=== PATIENT | male | born 1950 | race Caucasian/White ===

== ENCOUNTER 2018-11-27 17:30 | Outpatient (RCR) | payer MEDICARE, OTHER, SELFPAY | END 2018-11-29 23:59 | LOC: DC 17:30 | PROVIDERS: Visit Provider Nurse Practitioner Family | DX: E11.9 Type 2 diabetes mellitus without complications (principal); E66.01 Morbid (severe) obesity due to excess calories; Z68.41 Body mass index [BMI] 40.0-44.9, adult; Z71.3 Dietary counseling and surveillance | CPT/HCPCS: 97802; G0108 ==

== ENCOUNTER 2018-12-15 17:08 | Outpatient (RCR) | payer MEDICARE, OTHER, SELFPAY | END 2018-12-29 23:59 | LOC: DC 17:08 | PROVIDERS: Visit Provider Nurse Practitioner Family | DX: E11.9 Type 2 diabetes mellitus without complications (principal); E66.01 Morbid (severe) obesity due to excess calories; Z68.41 Body mass index [BMI] 40.0-44.9, adult; Z71.3 Dietary counseling and surveillance | CPT/HCPCS: 97803 ==

== ENCOUNTER 2019-02-23 17:30 | Outpatient (RCR) | payer MEDICARE, OTHER, SELFPAY | END 2019-02-28 23:59 | LOC: DC 17:30 | PROVIDERS: Visit Provider Nurse Practitioner Family | DX: Z71.3 Dietary counseling and surveillance (principal); E11.9 Type 2 diabetes mellitus without complications; E66.01 Morbid (severe) obesity due to excess calories; Z68.41 Body mass index [BMI] 40.0-44.9, adult | CPT/HCPCS: 97803; G0108 ==

== ENCOUNTER 2019-04-09 12:53 | Outpatient (RCR) | payer MEDICARE, OTHER, SELFPAY | END 2019-05-01 23:59 | LOC: DC 12:53 | PROVIDERS: Visit Provider Nurse Practitioner Family | DX: Z71.3 Dietary counseling and surveillance (principal); E11.9 Type 2 diabetes mellitus without complications; E66.01 Morbid (severe) obesity due to excess calories; Z68.41 Body mass index [BMI] 40.0-44.9, adult | CPT/HCPCS: G0109 ==

== ENCOUNTER 2019-05-07 08:04 | Outpatient (RCR) | payer MEDICARE, OTHER, SELFPAY | END 2019-05-30 23:59 | LOC: DC 08:04 | PROVIDERS: Visit Provider Nurse Practitioner Family | DX: Z71.3 Dietary counseling and surveillance (principal); E11.9 Type 2 diabetes mellitus without complications; E66.01 Morbid (severe) obesity due to excess calories; Z68.41 Body mass index [BMI] 40.0-44.9, adult | CPT/HCPCS: G0109 ==

== ENCOUNTER 2019-10-08 17:33 | Outpatient (RCR) | payer MEDICARE, OTHER, SELFPAY | END 2019-10-30 23:59 | LOC: DC 17:33 | PROVIDERS: PCP Nurse Practitioner Family; Referring Provider Nurse Practitioner Family; Visit Provider Nurse Practitioner Family | DX: Z71.3 Dietary counseling and surveillance (principal); E11.9 Type 2 diabetes mellitus without complications; E66.01 Morbid (severe) obesity due to excess calories; Z68.41 Body mass index [BMI] 40.0-44.9, adult | CPT/HCPCS: G0108 ==

== ENCOUNTER 2019-11-05 09:52 | Outpatient (RCR) | payer MEDICARE, OTHER, SELFPAY | END 2019-11-05 23:59 | disposition home or self-care (01) | LOC: DC 09:52 | PROVIDERS: PCP Nurse Practitioner Family; Referring Provider Nurse Practitioner Family; Visit Provider Nurse Practitioner Family | DX: Z71.3 Dietary counseling and surveillance (principal); E11.9 Type 2 diabetes mellitus without complications; E66.01 Morbid (severe) obesity due to excess calories; Z68.41 Body mass index [BMI] 40.0-44.9, adult | CPT/HCPCS: G0109 ==

== ENCOUNTER 2022-10-13 11:26 | Emergency (ER) | payer MEDICARE, OTHER, SELFPAY ==
[2022-10-13 11:27] VITALS: BP 169/72; PULSE 70; RESP 20; TEMP 35.4; O2SAT 95; BMI 38.3
--- NOTE | 2022-10-13 11:33 | EX.ED.GENINJ ---
HPI <LEXY Silva - Last Filed: 10/13/22 13:00> History of Present Illness Chief Complaint: Laceration Narrative Narrative: Patient tripped on the curb and caught himself with both hands causing a laceration to his right palm. No head injury or LOC. He denies weakness numbness or tingling in the extremity. Last tetanus unknown. PFSH <LEXY Silva - Last Filed: 10/13/22 13:00> [facility] Medical History (Updated 10/13/22 @ 11:35 by LEXY Silva) Diabetes HTN (hypertension) Home Medications dapagliflozin propanediol 10 mg tablet (Farxiga) 10 mg PO 10/31/21 [History Last Taken Unknown] insulin lispro protamine-lispro 100 unit/mL (50-50) subcutaneous pen (Humalog Mix 50-50 KwikPen) 3 unit subcut 10/31/21 [History Last Taken Unknown] lisinopril 20 mg tablet 20 mg PO DAILY 10/31/21 [History Last Taken Unknown] metformin 500 mg tablet,extended release 24 hr 500 mg PO 10/31/21 [History Last Taken Unknown] Allergy/AdvReac Type Severity Reaction Status Date / Time No Known Allergies Allergy Unverified 10/31/21 13:32 Social History (Updated 10/31/21 @ 13:35 by Camelia Solano) Smoking Status: Former smoker alcohol intake: current alcohol intake frequency: a few times a month Alcohol type: beer and wine ROS <LEXY Silva - Last Filed: 10/13/22 13:00> ROS ED ROS Narrative Neuro: Negative for motor/sensory dysfunction. Skin: Positive for laceration. Musc: Positive for right hand pain, swelling, trauma. Heme: Negative for easy bruising, bleeding, lymphadenopathy. EXAM <LEXY Silva - Last Filed: 10/13/22 13:00> Physical Exam Narrative Exam Narrative: CONST: Patient sitting in no acute distress. EYES: Normal inspection. NECK: Normal inspection. RESP: No respiratory distress, CTAB. CVS: Regular rate and rhythm, no murmur, no gallop. SKIN: T-shaped laceration (6 x 4 cm) on right palm extending in between his middle and ring finger webspace. No bleeding or foreign body. EXTREMITIES: Swelling, bruising and tenderness over right dorsal third MCP. Otherwise no tenderness of the extremity, full ROM, normal motor and sensory function median radial and ulnar distributions. 2+ radial pulse and brisk cap refill. NEURO: Oriented x4. PSYCH: Normal affect. Const Vital Signs: 10/13/22 11:27 10/13/22 13:04 Temperature 95.8 F L Temperature Source Temporal Pulse Rate 70 Respiratory Rate 20 H 17 Blood Pressure 169/72 H Blood Pressure Mean 104 Pulse Ox 95 Oxygen Delivery Method Room Air <Gorge Goins MD - Last Filed: 10/13/22 15:10> Physical Exam Const Vital Signs: 10/13/22 11:27 10/13/22 13:04 Temperature 95.8 F L Temperature Source Temporal Pulse Rate 70 Respiratory Rate 20 H 17 Blood Pressure 169/72 H Blood Pressure Mean 104 Pulse Ox 95 Oxygen Delivery Method Room Air PROC <LEXY Silva - Last Filed: 10/13/22 13:00> Procedures Lacerations right palm: Length: 5.91 in Depth: Sub Q Shape: T shaped, 6 cm top of T, 4 cm in between digits Prep: Sterile Conditions and Shure-Clens Laceration repair: Irrigated, Local, Skin sutures and Wound explored Irrigated (ml): 200 Number of Sutures/Mariana: 15 Suture Information: Ethilon, Simple and 5-0 MDM <LEXY Silva - Last Filed: 10/13/22 13:00> [facility] MDM Narrative Medical decision making narrative: Patient had mechanical fall and has a right palm laceration and contusion of the hand. No other injuries. He is able to fully move the hand and is neurovascularly intact. X-ray shows no acute fracture or dislocation. I performed wound repair with a total of 15 sutures. See procedure note. Tetanus was updated and patient given wound care instructions and discharged in stable condition Radiography Diagnostic Testing: Clinical Impression(s) from Imaging Studies Hand X-Ray 10/13/22 11:52 IMPRESSION: No acute fracture or dislocation. Electronically Signed: Neri Quiroz MD at 12:16 EDT , ED attending interpretation of right hand shows no acute fracture or dislocation <Gorge Goins MD - Last Filed: 10/13/22 15:10> [facility] MDM Narrative Medical decision making narrative: Patient had mechanical fall and has a right palm laceration and contusion of the hand. No other injuries. He is able to fully move the hand and is neurovascularly intact. X-ray shows no acute fracture or dislocation. I performed wound repair with a total of 15 sutures. See procedure note. Tetanus was updated and patient given wound care instructions and discharged in stable condition I have personally performed a face to face assessment of the patient and have reviewed the LENA Note. I performed a substantive portion of the visit including all aspects of the following. My forrest findings include: History is fall at [facility] onto right hand, positive laceration volar aspect right palm. Exam is afebrile. Vital signs noted. GCS 15. ABCs intact. Irregular laceration palm of right hand, no active bleeding. Appears neurovascular intact distally. Medical Decision Making: Check right hand x-ray. My independent interpretation of his right hand x-ray shows no evidence of an acute fracture. I reviewed the radiology report which confirms my independent interpretation. Laceration repair. Discharge. Other additions or changes: [None] Radiography Diagnostic Testing: Clinical Impression(s) from Imaging Studies Hand X-Ray 10/13/22 11:52 IMPRESSION: No acute fracture or dislocation. Electronically Signed: Neri Quiroz MD at 12:16 EDT Reading Location ID and State: [address] [place] [address] Tel , Service support , Discharge Plan Triage Chief Complaint: Laceration ED Midlevel Provider: Ramona Forde ED Provider: Gorge Goins Dx/Rx/DC Orders Clinical Impression: Laceration of right hand Instructions: ED Laceration Extremity Prescriptions: No Action Farxiga 10 mg tablet 10 mg PO Humalog Mix 50-50 KwikPen 100 unit/mL (50-50) insulin pen 3 unit subcut metformin 500 mg tablet extended release 24 hr 500 mg PO lisinopril 20 mg tablet 20 mg PO DAILY Primary Care Provider: Neri Hernandez CRITICAL CARE RN Referrals: Neri Hernandez CRITICAL CARE RN, CRITICAL CARE RN-C [Primary Care Provider] - Activity Restrictions/Additional Instructions: Stitches need removed in 10 to 14 days. Keep clean and dry. You can shower and then gently pat the area dry. If any signs of infection develop come back immediately including redness, swelling, increased pain or pus. Disposition Disposition: Home, Self Care Discharge Date/Time: 10/13/22 13:05
[2022-10-13] MEDS: Diphth,Pertuss(Acell),Tet Vac 0.5 ML Vial IM (11:46)
[2022-10-13] MEDS: Lidocaine 1% (20 ml mdv) 20 ML Vial INFILT (11:46)
--- NOTE | 2022-10-13 11:52 | RAD_ITS ---
STUDY: X-RAY - RIGHT HAND REASON FOR EXAM: Male, 72 years old. pain TECHNIQUE: 3 view(s) of the hand. COMPARISON: None. FINDINGS: Normal radiocarpal articulation. Normal distal radioulnar joint. Normal visualized carpal bones. Normal carpal articulations Normal carpometacarpal articulation of the thumb. Normal second through fifth carpometacarpal joints. Suspect healed fracture of the second metacarpal bone. Normal metacarpophalangeal joint of the thumb. Normal interphalangeal joint of the thumb. Normal proximal and distal phalanges of the thumb. Normal metacarpophalangeal joints of the second through fifth fingers. Normal proximal and distal interphalangeal joints of the second through fifth fingers. Normal phalanges of the second through fifth fingers. The soft tissue structures are unremarkable. RAD/Hand Min 3 Views IMPRESSION: No acute fracture or dislocation. Electronically Signed: Neri Quiroz MD at 12:16 EDT ,
[2022-10-13 13:04] VITALS: RESP 17
== END 2022-10-13 13:05 | disposition home or self-care (01) ==
PROVIDERS: Emergency Provider Emergency Medicine; PCP Nurse Practitioner Family; Visit Provider Emergency Medicine
DX: S61.411A Laceration without foreign body of right hand, initial encounter (principal); E11.9 Type 2 diabetes mellitus without complications; Z79.4 Long term (current) use of insulin; I10 Essential (primary) hypertension; Z87.891 Personal history of nicotine dependence; Z79.899 Other long term (current) drug therapy; Z79.84 Long term (current) use of oral hypoglycemic drugs; Z23 Encounter for immunization; W01.198A Fall on same level from slipping, tripping and stumbling with subsequent striking against other object, initial encounter
CPT/HCPCS: 12002; 73130; 90715; 99285

== ENCOUNTER 2022-10-16 19:43 | Emergency (ER) | payer MEDICARE, OTHER, SELFPAY ==
[2022-10-16 19:44] VITALS: BP 199/77; PULSE 64; RESP 18; TEMP 35.9; O2SAT 94; BMI 38.5
--- NOTE | 2022-10-16 20:11 | EX.ED.GENINJ ---
HPI History of Present Illness Chief Complaint: Laceration Detail of Chief Complaint: Hand swelling Informant: patient Narrative Narrative: Patient was seen and evaluated on the after a fall and laceration to the palm of his right hand. It was sutured. He presents tonight noting increased swelling to his hand, particularly over the back of his hand. He does not have significant pain. No fever. There is been no drainage from the wound. [facility] Medical History Diabetes HTN (hypertension) Home Medications dapagliflozin propanediol 10 mg tablet (Farxiga) 10 mg PO 10/31/21 [History Last Taken Unknown] insulin lispro protamine-lispro 100 unit/mL (50-50) subcutaneous pen (Humalog Mix 50-50 KwikPen) 3 unit subcut 10/31/21 [History Last Taken Unknown] lisinopril 20 mg tablet 20 mg PO DAILY 10/31/21 [History Last Taken Unknown] metformin 500 mg tablet,extended release 24 hr 500 mg PO 10/31/21 [History Last Taken Unknown] Allergy/AdvReac Type Severity Reaction Status Date / Time No Known Allergies Allergy Verified 10/16/22 19:44 Social History Smoking Status: Former smoker alcohol intake: current alcohol intake frequency: a few times a month Alcohol type: beer and wine ROS ROS ED Constitutional Constitutional ED: Denies chills or fever(s) Eyes Eyes: Denies change in vision ENT ENT ED: Denies rhinorrhea or sore throat Cardiovascular Cardiovascular: Denies chest pain or palpitations Respiratory/Chest Respiratory/Chest: Denies cough or dyspnea Gastrointestinal Gastrointestinal: Denies abdominal pain, nausea or vomiting Genitourinary Genitourinary ED: Denies dysuria Musculoskeletal Musculoskeletal: Denies back pain Integumentary Reports other Details: Right hand wound ; Denies Abrasions or rash Neurologic Neurologic: Denies headache(s), paresthesias or weakness Psychiatric Psychiatric: Denies anxiety or depression Allergic/Immunologic Allergic/Immunologic ED: Denies lip swelling or urticaria EXAM Physical Exam Const Vital Signs: 10/16/22 19:44 Temperature 96.7 F L Temperature Source Temporal Pulse Rate 64 Respiratory Rate 18 Blood Pressure 199/77 H Blood Pressure Mean 117 Pulse Ox 94 Positive well nourished and well developed General Appearance ED: well developed Eyes EOMs intact bilaterally Chest Wall inspection of chest normal and palpation of chest normal Resp normal respiratory effort Cardio regular rhythm Rate: regular rate Extremity Extremity Narrative: Healing laceration to the palm of the right hand. No evidence of infection. Good range of motion of all digits. Good cap refill and sensation distally. Mild edema is noted over the back of the right hand. It is noted that the dressing the patient had in place was rather tight around the wrist. Neuro oriented x3 MDM MDM MDM Narrative Medical decision making narrative: Dressing was removed from the right hand. It was rather tight around the wrist. I believe this in combination with not having his hand elevated above the level of his heart has led to the increased swelling. I see no evidence of wound infection. Wound is cleansed and redressed. Wound care was discussed. Discharge Plan Triage Chief Complaint: Laceration ED Provider: Emilee Morales Dx/Rx/DC Orders Clinical Impression: Visit for wound check Instructions: ED Wound Check (No Infection), ED Wound Care Prescriptions: No Action Farxiga 10 mg tablet 10 mg PO Humalog Mix 50-50 KwikPen 100 unit/mL (50-50) insulin pen 3 unit subcut metformin 500 mg tablet extended release 24 hr 500 mg PO lisinopril 20 mg tablet 20 mg PO DAILY Primary Care Provider: Neri Henrandez NP Referrals: Neri Hernandez NP, [employer]-[facility] [Primary Care Provider] - 3-5 Days suture removal Disposition Disposition: Home, Self Care
== END 2022-10-16 20:27 | disposition home or self-care (01) ==
LOC: ED 20:19
PROVIDERS: Emergency Provider Emergency Medicine; PCP Nurse Practitioner Family; Visit Provider Emergency Medicine
DX: Z51.89 Encounter for other specified aftercare (principal); E11.9 Type 2 diabetes mellitus without complications; Z79.4 Long term (current) use of insulin; I10 Essential (primary) hypertension; Z87.891 Personal history of nicotine dependence; M79.89 Other specified soft tissue disorders; Z79.899 Other long term (current) drug therapy; Z79.84 Long term (current) use of oral hypoglycemic drugs
CPT/HCPCS: 99282

== ENCOUNTER 2024-04-18 23:27 | Emergency (ER) | payer MEDICARE, OTHER, SELFPAY ==
[2024-04-18 23:28] VITALS: BP 130/67; PULSE 88; RESP 18; TEMP 37; O2SAT 94; BMI 34.0
--- NOTE | 2024-04-18 23:47 | EX.ED.DYSGE1 ---
HPI History of Present Illness Chief Complaint: Wound Check Informant: patient and EMS Narrative Narrative: Patient is a 74-year-old male with past medical history of insulin-dependent diabetes and hypertension and chronic indwelling tracheostomy. He states that he has had some sinus congestion and drainage for the past 2 weeks and recently has been on antibiotics. He reports that he has had increased drainage because of that which seems to obstruct/plug his tracheostomy. He states this evening he was coughing and in doing so dislodge the trach and therefore was sent to the hospital for evaluation. [facility] Medical History Diabetes HTN (hypertension) Home Medications ?Medication ?Instructions ?Recorded ?Last Taken ?Type dapagliflozin propanediol 10 mg 10 mg PO 10/31/21 Unknown History tablet (Farxiga) insulin lispro protamine-lispro 3 unit subcut 10/31/21 Unknown History 100 unit/mL (50-50) subcutaneous pen (Humalog Mix 50-50 KwikPen) lisinopril 20 mg tablet 20 mg PO DAILY 10/31/21 Unknown History metformin 500 mg tablet,extended 500 mg PO 10/31/21 Unknown History release 24 hr Allergy/AdvReac Type Severity Reaction Status Date / Time No Known Allergies Allergy Verified 10/16/22 19:44 Social History Smoking Status: Former smoker alcohol intake: current alcohol intake frequency: a few times a month Alcohol type: beer and wine ROS ROS ED Constitutional Constitutional ED: Denies chills or fever(s) Eyes Eyes: Denies change in vision ENT ENT ED: Reports rhinorrhea Cardiovascular Cardiovascular: Denies chest pain Respiratory/Chest Respiratory/Chest: Reports cough; Denies dyspnea Gastrointestinal Gastrointestinal: Denies abdominal pain, diarrhea, nausea or vomiting Musculoskeletal Musculoskeletal: Denies neck pain Integumentary Denies rash Neurologic Neurologic: Denies headache(s) Hematologic/Lymphatic Hematologic/Lymphatic: Denies easy bleeding or easy bruising EXAM Physical Exam Const Vital Signs: 04/18/24 23:28 04/19/24 01:20 Temperature 98.6 F 98.1 F Temperature Source Oral Pulse Rate 88 78 Respiratory Rate 18 16 Blood Pressure 130/67 H 128/30 H Blood Pressure Mean 88 62 Pulse Ox 94 98 Oxygen Delivery Method Trach Collar Oxygen Flow Rate (L/min) 2 Positive well nourished, well developed and obese General Appearance ED: well developed Nutritional Appearance: obese HEENT HEENT Narrative: Normocephalic atraumatic No pain on palpation over top the maxillary frontal or ethmoid sinuses Eyes PERRL and EOMs intact bilaterally General Eye ED: Negative for scleral icterus Neck supple Neck Narrative: Tracheostomy site is clean dry and intact. No surrounding secondary soft tissue changes to suggest infection. No crepitance or subcutaneous emphysema noted. Chest Wall palpation of chest normal Resp normal respiratory effort and clear to auscultation bilaterally Resp Narrative: No nasal flaring retractions tachypnea or accessory muscle use Cardio regular rate and regular rhythm GI normal to inspection, nondistended, normoactive bowel sounds, non-tender, non-distended and no masses Auscultation: normoactive bowel sounds Palpation: soft Extremity normal to inspection Neuro oriented x3 and CN's II-XII intact bilaterally Sensorium / Orientation: alert Psych mental status grossly normal Skin no rashes or lesions noted MDM MDM MDM Narrative Medical decision making narrative: Patient arrived to the ER with stable vitals and despite dislodging his tracheostomy with coughing was not in respiratory distress. Upon arrival the tip of the tracheostomy was still present at the stoma site and therefore it was reinserted with manual pressure. Upon doing so there was clear mucus/excretions noted and therefore the trach was suctioned. After doing this the patient's breath sounds are overall clear he is not in respiratory distress and vitals are stable. He did report previous congestion over the last 2 weeks but is already done a round of antibiotics does not have pain with palpation over top his sinuses and the mucus is clear and not discolored and thereby have low concern for infectious process. Therefore as the tracheostomy has been replaced he is not in respiratory distress and vitals are stable I do not feel there is need for further workup and he is otherwise safe to return to the snf History & Record Review Discussion w/independent historian: EMS personnel and Patient Discharge Plan Triage Chief Complaint: Wound Check ED Provider: Jacob Rios Dx/Rx/DC Orders Clinical Impression: Malfunction of tracheostomy, HTN (hypertension), Insulin dependent diabetes mellitus Instructions: ED Tracheostomy Care, ED Mucous Plug, Trach Tube Prescriptions: No Action Farxiga 10 mg tablet 10 mg PO Humalog Mix 50-50 KwikPen 100 unit/mL (50-50) insulin pen 3 unit subcut metformin 500 mg tablet extended release 24 hr 500 mg PO lisinopril 20 mg tablet 20 mg PO DAILY Primary Care Provider: Bhavik Jameson Referrals: Neri Hernandez [employer], [employer] [Non-Staff] - Print Language: Welsh Disposition Disposition: Home, Self Care Discharge Date/Time: 04/19/24 01:21
--- NOTE | 2024-04-19 01:18 | NURSING ---
Report called to [facility] Aware pt will be returning shortly.
[2024-04-19 01:20] VITALS: BP 128/30; PULSE 78; RESP 16; TEMP 36.7; O2SAT 98
== END 2024-04-19 01:21 | disposition home or self-care (01) ==
PROVIDERS: Emergency Provider Emergency Medicine; PCP Family Medicine; Visit Provider Emergency Medicine
DX: J95.03 Malfunction of tracheostomy stoma (principal); E11.9 Type 2 diabetes mellitus without complications; Z79.4 Long term (current) use of insulin; I10 Essential (primary) hypertension; Z87.891 Personal history of nicotine dependence; Z79.899 Other long term (current) drug therapy; Z79.84 Long term (current) use of oral hypoglycemic drugs
CPT/HCPCS: 31720; 99284

== ENCOUNTER 2024-07-20 08:30 | Outpatient (RCR) | payer MEDICARE, OTHER, SELFPAY ==
[2024-07-08 08:34] VITALS: BP 152/79; PULSE 96; RESP 18; TEMP 36.5
--- NOTE | 2024-07-08 10:45 | PCM.WC.HP ---
History of Present Illness Date of Service: 07/08/24 Chief Complaint: Follow-up on his abdominal wound nonhealing since December History of Wound: 74-year-old white male who went in for an umbilical hernia repair and his duodenum got perforated ended up with a tracheotomy and placed in a coma and woke up in March. Patient has had a wound VAC and several other dressing changes currently he is just on an antibiotic cephalexin and covering it with gauze. 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 Patient is a diabetic and is currently on both insulin and Farxiga. [facility] Medical History Vitamin D deficiency GERD (gastroesophageal reflux disease) Dysphagia, pharyngeal phase Perforation of intestine HLD (hyperlipidemia) Anxiety Depression Infection following a procedure, other surgical site, subsequent encounter Acute and chronic respiratory failure with hypoxia Diabetes HTN (hypertension) Home Medications ?Medication ?Instructions ?Recorded ?Last Taken ?Type dapagliflozin propanediol 10 mg 10 mg PO DAILY 10/31/21 Unknown History tablet (Farxiga) amlodipine 5 mg tablet 5 mg PO QDAY 06/18/24 Unknown History atorvastatin 20 mg tablet 20 mg PO QDAY 06/18/24 Unknown History escitalopram oxalate 10 mg tablet 10 mg PO QDAY 06/18/24 Unknown History insulin glargine 100 unit/mL 10 unit subcut QAM 06/18/24 Unknown History subcutaneous solution (Lantus U-100 Insulin) levothyroxine 50 mcg capsule 50 mcg PO QDAY 06/18/24 Unknown History losartan 100 mg tablet 100 mg PO QDAY 06/18/24 Unknown History metformin 500 mg tablet,extended 1,000 mg PO BID 06/18/24 Unknown History release 24 hr metoprolol tartrate 25 mg tablet 25 mg PO QDAY 06/18/24 Unknown History cephalexin 250 mg capsule 250 mg PO 4X/DAY 07/08/24 Unknown History Allergy/AdvReac Type Severity Reaction Status Date / Time No Known Allergies Allergy Verified 10/16/22 19:44 Surgical History Gastrostomy status Tracheostomy status Social History Smoking Status: Never smoker alcohol intake: current alcohol intake frequency: a few times a month Alcohol type: beer and wine ROS Constitutional Constitutional: Reports systems reviewed and no addt'l complaints, except as documented Eyes Eyes: Reports systems reviewed and no addt'l complaints, except as documented ENT HEENT: Reports systems reviewed and no addt'l complaints, except as documented Cardiovascular Cardiovascular: Reports systems reviewed and no addt'l complaints, except as documented Respiratory/Chest Respiratory/Chest: Reports systems reviewed and no addt'l complaints, except as documented Gastrointestinal Gastrointestinal: Reports systems reviewed and no addt'l complaints, except as documented Genitourinary Genitourinary: Reports systems reviewed and no addt'l complaints, except as documented Musculoskeletal Musculoskeletal: Reports systems reviewed and no addt'l complaints, except as documented Integumentary Integumentary: Reports wounds and other Details: Open area of skin nonhealing boggy and softness and nontender over most of the abdomen Neurologic Neurologic: Reports systems reviewed and no addt'l complaints, except as documented Psychiatric Psychiatric: Reports systems reviewed and no addt'l complaints, except as documented Endocrine Endocrinology: Reports systems reviewed and no addt'l complaints, except as documented Hematologic/Lymphatic Hematologic/Lymphatic: Reports systems reviewed and no addt'l complaints, except as documented Allergic/Immunologic Allergic/Immunologic: Reports systems reviewed and no addt'l complaints, except as documented Vital Signs Vital Signs Vital Signs: 07/08/24 08:34 Temperature 97.7 F L Temperature Source Temporal Pulse Rate 96 Respiratory Rate 18 Blood Pressure 152/79 H Blood Pressure Mean 103 Blood Pressure Source Monitor Blood Pressure Position Semi-Fowlers Blood Pressure Location Left Arm Physical Exam Const oriented x3 General Appearance: cooperative Exam Limitations: no limitations HEENT normocephalic Head and Scalp: normal to inspection Face and Sinus: normal facial exam Eyes General Eye: normal appearance of both eyes Neck General: normal visual inspection Resp normal respiratory effort Effort and Inspection: able to speak in complete sentences Auscultation: clear to auscultation bilaterally Cardio regular rate and regular rhythm Palpation: normal PMI Rate: regular rate Rhythm: regular rhythm GI Palpation: soft and no hepatosplenomegaly Skin no rashes or lesions noted Skin Narrative: Open wound rather large across the abdomen absence of umbilicus with crusted edges well-approximated skin. No depth hypergranulation of skin. Neuro oriented x3 Psych Appearance: grossly normal Speech: normal speech Thought Content: normal thought content Judgement: judgement good Debridement Note Debridement Note Wound debrided: Nonhealing surgical wound Type of Debridement: Excisional debridement Anesthesia Used: 5% Lidocaine Gel Depth: Down to and including healthy tissue Percentage of wound debrided: 100 Instrument Used: 7mm curette Tissue Removed: Fibrin and some slough Severity: Limited To Skin Breakdown Amount of bleeding with debridement: Mild Bleeding Controlled with: Compression and gauze Patient tolerated procedure: Patient tolerated procedure well Debridement Free Text: Using silver nitrate to use on the hyper granulated tissue. Post-Debridement Measurements and Additional Note: Post-Debridement Measurements/Treatment - Nurse 1 - General Ulcer Assessment Start: 07/08/24 08:30 Freq: Status: Active Protocol: OBDULIA Activity Type Activity Date Activity User E-sign Co-sign Detail Recorded Client Recorded Date Recorded By Document 07/08/24 08:34 [id number] 07/08/24 08:44 LOWELL 07/08/24 08:34 - Today's Visit Information Type of service Initial Visit Arrival Mode Ambulatory Transfer Assistance None Patient Identification Verified (Name & Yes ) Patient Requires Transmission-Based No Precautions Vital Signs Temperature (97.8 F-99.1 F) 97.7 F L Temperature Source Temporal Pulse Rate (60-100) 96 Pulse Location Monitor Respiratory Rate (12-18) 18 Respiratory rate source Observation Blood Pressure (90/60-120/80) 152/79 H Blood Pressure Mean 103 Source Monitor Position Semi-Fowlers Blood Pressure Location Left Arm Pain Scale: 0-10 Numeric Is Patient Pain Free? Yes Communication Assessment Preferred language Panamanian Business Mail Entry Clerk Required No Able to Read Yes Able to Write Yes Communication Tools None Caregiver Communication Skills No Impairment Impairment Right Hearing Abillity Normal Left Hearing Abillity Normal Visual Assistive Devices Glasses Teaching Assessment Preferences Verbal,Written, Demonstration Barriers to Learning None Readiness To Learn Good Willingness to Engage in Self Management Med Activies Readiness to Engage in Self Management Med Activities Anxiety Level Anxious Cooperation Cooperative Perception Coherent Interest in Health Problem Asks Questions Education Importance Acknowledges Need Does Patient Smoke tobacco or other No substances Smoking Status Never smoker Functional Assessment Recent Decline in Ability to Perform Denies Any Declines Culture/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 Hydrant Setter to contact place of gnosticist No Teaching: Wound Center *Welcome to the Wound Center -Person Taught Patient -Teaching Method Discussion, Demonstration -Response to teaching Verbalize Understanding - Nurse 1 - General Ulcer Measurement Start: 07/08/24 08:30 Freq: Status: Active Protocol: Activity Type Activity Date Activity User E-sign Co-sign Detail Recorded Client Recorded Date Recorded By Document 07/08/24 08:34 [id number] 07/08/24 08:44 RB 07/08/24 08:34 Wound Center Nurse 1 1. ABD -Combined with other wound No -Current Size (cm) - Length 15 -Current Size (cm) - Width 20.1 -Current Size (cm) - Depth 0.1 -Total Square Cm 301.5 -Photo Taken Yes -Tunneling No -Undermining/Tunneling No -Circular Undermining No -Exudate Amt Medium -Exudate Type Serosanguineous -Wound Margin Distinct, Outline Attached -Granulation Amt Medium (34-66%) -Granulation Quality [place] -Slough/Fibrin Yes -Necrosis Amt Medium (34-66%) -Necrotic Tissue Type Adherent Slough -Structure Exposed N/A -Texture (Lorenza-wound Skin Appearance) Assessed, Scarring -Moisture (Lorenza-wound Skin Appearance) Assessed -Color (Lorenza-wound Skin Appearance) Assessed -Temperature (Lorenza-wound Skin No Abnormality Appearance) (Pt Warm) -Tenderness on Palpation (Lorenza-wound No Skin Appearance) -Ulcer Cleansing Wound Cleanser -Foul Odor after Cleansing No -Anesthetic Used 4% Lidocaine Solution - Nurse 2 - General Ulcer CM Notes Start: 07/08/24 08:30 Freq: Status: Active Protocol: Activity Type Activity Date Activity User E-sign Co-sign Detail Recorded Client Recorded Date Recorded By Document 07/08/24 09:03 [facility] [id number] 07/08/24 09:17 [facility] 07/08/24 09:03 Wound Center Nurse 2 -Time 09:03 -Correct Patient Yes -Correct Side, Site, Position Yes -Correct Procedure Yes -Procedure Performed Yes -Type of Procedure Debridement -Clinical Debridement Subcutaneous -Tissue Removed Subcutaneous -Post Debridement (cm) - Length 14 -Post Debridement (cm) - Width 19.5 -Post Debridement (cm) - Depth 0.1 -Total Square (Post) (cm) 273.0 -Area of Debridement (cm) - Length 14 -Area of Debridement (cm) - Width 19.5 -Total Square (Area) (cm) 273.0 -Tunneling No -Undermining/Tunneling No -Circular Undermining No -Wound/Ulcer Outcome Not Healed -Ulcer Cleansing Rinsed/ Irrigated with Saline -Foul Odor after Cleansing No -Bioengineered Tissue No -Bleeding Controlled with Pressure,Silver Nitrate -Treatment Response Procedure Tolerated Well -Debridement - Subq, 1st 20sq cm Yes -Debridement, SubQ, ea addt'l 20sq cm 13 or part thereof Pain Scale: 0-10 Numeric Is Patient Pain Free? Yes - Nurse 3 - General Ulcer D/C NN Start: 07/08/24 08:30 Freq: Status: Active Protocol: Activity Type Activity Date Activity User E-sign Co-sign Detail Recorded Client Recorded Date Recorded By Document 07/08/24 09:31 [place] [id number] 07/08/24 09:33 [place] 07/08/24 09:31 Wound Care Center Nurse 3 1. ABD -Primary Dressing Applied NonAdherent Contact Layer -Other Dressing xeroform x 4 -Primary Dressing Covered/Secured with Dry Gauze, Secured with Tape Pain Scale: 0-10 Numeric Is Patient Pain Free? Yes - Visit Discharge Discharge Condition Stable Ambulatory Status Ambulatory Transportation Private Auto Medication Reconcilliation completed & No provided to patient/care provider Clinical Summary of Care Provided Yes Notes: pt and verbalized understanding of new wound dressing. Assessment/Plan Assessment/Plan (1) Nonhealing surgical wound: CODE(S): T81.89XA - Other complications of procedures, not elsewhere classified, initial encounter QUALIFIERS: Encounter type: initial encounter Qualified Code(s): T81.89XA - Other complications of procedures, not elsewhere classified, initial encounter PLAN: Wash abdominal wound with antibacterial soap and water pat dry and apply Xeroform to wound base and ABDs over top. Every day Follow-up in 2 week Will repeat for to Dr. Hurtado for plastics for evaluation for his abdominal wound. (2) Hypergranulation: CODE(S): L92.9 - Granulomatous disorder of the skin and subcutaneous tissue, unspecified (3) Diabetes mellitus with hyperglycemia: CODE(S): E11.65 - Type 2 diabetes mellitus with hyperglycemia QUALIFIERS: Diabetes mellitus type: type 2 Diabetes mellitus intermodal customer service insulin use: with intermodal customer service use Qualified Code(s): E11.65 - Type 2 diabetes mellitus with hyperglycemia; Z79.4 - termite inspector (current) use of insulin
[2024-07-08 12:05] LABS: Hematocrit 35.5 % (40-54); Hemoglobin 11.1 g/dL (13.0-16.5); Mean Corp Hgb Conc 31.3 g/dL (32-36); Mean Corpuscular Volume 83.1 fL (80-94); Mean Platelet Vol. 10.9 fl (6.2-12.0); Platelet Count 399 K/mm3 (150-450); RBC Distribution Width CV 15.9 % (11.6-14.6); RBC Distribution Width SD 47.8 fl (35.1-43.9); Red Blood Count 4.27 M/mm3 (4.6-6.2); White Blood Count 6.1 K/mm3 (4.4-11.0)
[2024-07-08 14:28] LABS: AST(SGOT) 24 U/L (<=37); Alanine Aminotransfer ALT/SGPT 38 U/L (<=46); Albumin, Serum 3.5 g/dL (3.4-4.8); Alkaline Phosphatase 67 U/L (40-129); Anion Gap 15 (5-15); BUN 19 mg/dL (4-19); BUN/Creat Ratio 20.5 RATIO (10-20); Calcium,Total 9.3 mg/dL (7.6-11.0); Carbon Dioxide 20.7 mmol/L (21.0-32.0); Chloride 104 mmol/L (98-108); Creatinine, Serum 0.94 mg/dL (0.70-1.20); EST Glomerular Filtration Rate 86 (>60); Globulin 3.7 g/dL (2.2-4.2); Glucose 241 mg/dL (70-99); Potassium 4.3 mmol/L (3.3-5.1); Protein, Total 7.1 g/dL (5.9-8.4); Sodium Level 139 mmol/L (133-145); Total Bilirubin 0.28 mg/dL (0.00-1.30)
[2024-07-08 15:49] LABS: Hemoglobin A1c 7.7 % (<=5.6)
[2024-07-09 05:07] LABS: Prealbumin 24 mg/dL (9-32)
--- NOTE | 2024-07-09 10:32 | WC ---
PHOTO 07/08/24 ABD
[2024-07-13 08:25] VITALS: BP 159/84; PULSE 99; RESP 18; TEMP 36.3
--- NOTE | 2024-07-13 09:32 | HP.PCM_ITS ---
History of Present Illness Date of Service: 07/13/24 Chief Complaint: Follow-up on his abdominal wound nonhealing since December History of Wound: Eben Bosch is a 74-year-old male who underwent an umbilical hernia repair at [facility] in December 2023 and unfortunately 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 Through patient report, it was not discovered at the initial time of the hernia repair surgery and he subsequently required 3 surgeries for exploration of his abdomen and to fix the enterotomy site. Patient never had an ostomy. He had a prolonged hospital stay including prolonged intubation necessitating a tracheostomy (he has been decannulated for 1 week) and prolonged ICU admission followed by discharge to a residential facility. 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 He has an adult daughter with 2 adult grandchildren. Patient has never had any bleeding or clotting problems (he is not on any blood thinner and has not had a blood clot). He is not a smoker. Patient is a diabetic with an A1c of 7.7 (earlier this month). His prealbumin is 24 and his albumin is 3.5. For wound care he has been doing dressing changes with Xeroform and has tried the wound VAC in the past. He has not had a CT scan recently and he has not had a biopsy of the wound. He has not been using an abdominal binder. [facility] Medical History Vitamin D deficiency GERD (gastroesophageal reflux disease) Dysphagia, pharyngeal phase Perforation of intestine HLD (hyperlipidemia) Anxiety Depression Infection following a procedure, other surgical site, subsequent encounter Acute and chronic respiratory failure with hypoxia Diabetes HTN (hypertension) Home Medications ?Medication ?Instructions ?Recorded ?Last Taken ?Type dapagliflozin propanediol 10 mg 10 mg PO DAILY 2 Unknown History tablet (Farxiga) amlodipine 5 mg tablet 5 mg PO QDAY 06/18/24 Unknow n History atorvastatin 20 mg tablet 20 mg PO QDAY 06/18/24 Unkno wn History escitalopram oxalate 10 mg tablet 10 mg PO QDAY Unknown History insulin glargine 100 unit/mL 10 unit subcut QAM Unknown History subcutaneous solution (Lantus U-100 Insulin) levothyroxine 50 mcg capsule 50 mcg PO QDAY 06/18/24 U nknown History losartan 100 mg tablet 100 mg PO QDAY 06/18/24 Unkn own History metformin 500 mg tablet,extended 1,000 mg PO BID 06/18 Unknown History release 24 hr metoprolol tartrate 25 mg tablet 25 mg PO QDAY 5 Unknown History cephalexin 250 mg capsule 250 mg PO 4X/DAY 07/08/24 Un known History Allergy/AdvReac Type Severity Reaction Status Date / Time No Known Allergies Allergy Verified 10/16/22 19:44 Surgical History Gastrostomy status Tracheostomy status Social History Smoking Status: Never smoker alcohol intake: current alcohol intake frequency: a few times a month Alcohol type: beer and wine Vital Signs Vital Signs Vital Signs: 07/13/24 08:25 Temperature 97.3 F L Temperature Source Temporal Pulse Rate 99 Respiratory Rate 18 Blood Pressure 159/84 H Blood Pressure Mean 109 Blood Pressure Source Monitor Physical Exam Narrative Abdomen: ~15 x 15 cm granulating central abdominal wound. No exposed mesh. No surrounding induration. There is loss of domain centrally with large diastases that is approximately ~15 cm wide and ~20 cm tall. Debridement Note Debridement Note No debridement was completed: No debridement was completed today Post-Debridement Measurements and Additional Note: Post-Debridement Measurements/Treatment - Nurse 1 - General Ulcer Assessment Start: 07/08/24 08:30 Freq: Status: Active Protocol: HENRI.RENITA Activity Type Activity Date Activity User E-sign Co-sign Detail Recorded Client Recorded Date Recorded By Document 07/08/24 08:34 RB [id number] 07/08/24 08:44 RB Document 07/13/24 08:25 DL [id number] 07/13/24 08:30 DL 07/08/24 07/13/24 08:34 08:25 - Today's Visit Information Type of service Initial Visit Follow-up Visit (Physician/HANDWRITING EXPERT ) Physician Covering Nurse Only Visit C/S [facility] Arrival Mode Ambulatory Ambulatory Transfer Assistance None None Patient Identification Verified (Name & Yes Yes ) Patient Requires Transmission-Based No No Precautions Vital Signs Temperature (97.8 F-99.1 F) 97.7 F L 97.3 F L Temperature Source Temporal Temporal Pulse Rate (60-100) 96 99 Pulse Location Monitor Monitor Respiratory Rate (12-18) 18 18 Respiratory rate source Observation Observation Blood Pressure (90/60-120/80) 152/79 H 159/84 H Blood Pressure Mean 103 109 Source Monitor Monitor Position Semi-Fowlers Blood Pressure Location Left Arm History Since Last Visit- (Skip if this is Patient's initial visit) Have you changed medications since your No last visit? Any new allergies or adverse reactions No Had a fall/change in ADL's that may No increase risk of falls Signs or symptoms of abuse and/or No neglect since last visit Have you been in the hospital since your No last visit? Has dressing in place as prescribed Yes Has compression in place as prescribed N/A Has offloadiing in place as prescribed N/A Experienced any changes in pain level or No management Left Footwear Regular Shoe Right Footwear Regular Shoe Pain Scale: 0-10 Numeric Is Patient Pain Free? Yes Yes Communication Assessment Preferred language Slovak Mailmaster Required No Able to Read Yes Able to Write Yes Communication Tools None Caregiver Communication Skills No Impairment Impairment Right Hearing Abillity Normal Left Hearing Abillity Normal Visual Assistive Devices Glasses Teaching Assessment Preferences Verbal,Written, Demonstration Barriers to Learning None Readiness To Learn Good Willingness to Engage in Self Management Med Activies Readiness to Engage in Self Management Med Activities Anxiety Level Anxious Cooperation Cooperative Perception Coherent Interest in Health Problem Asks Questions Education Importance Acknowledges Need Does Patient Smoke tobacco or other No substances Smoking Status Never smoker Functional Assessment Recent Decline in Ability to Perform Denies Any Declines Culture/Sikh/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 Filing Machine Operator to contact place of voodoo No Teaching: Wound Center *Welcome to the Wound Center -Person Taught Patient -Teaching Method Discussion, Demonstration -Response to teaching Verbalize Understanding WC - Nurse 1 - General Ulcer Measurement Start: 07/08/24 08:30 Freq: Status: Active Protocol: Activity Type Activity Date Activity User E-sign Co-sign Detail Recorded Client Recorded Date Recorded By Document 07/08/24 08:34 RB [id number] 07/08/24 08:44 RB Document 07/13/24 08:25 DL [id number] 07/13/24 08:30 DL 07/08/24 07/13/24 08:34 08:25 Wound Center Nurse 1 1. ABD -Combined with other wound No No -Current Size (cm) - Length 15 13.1 -Current Size (cm) - Width 20.1 17 -Current Size (cm) - Depth 0.1 0.1 -Total Square Cm 301.5 222.7 -Photo Taken Yes Yes -Epithelialization None Present -Tunneling No No -Undermining/Tunneling No No -Circular Undermining No No -Exudate Amt Medium Large -Exudate Type Serosanguineous Serosanguineous -Wound Margin Distinct, Flat & Intact Outline Attached -Granulation Amt Medium (34-66%) Large (67-100%) -Granulation Quality [place] Hyper- granulation -Slough/Fibrin Yes Yes -Necrosis Amt Medium (34-66%) Small (1-33%) -Necrotic Tissue Type Adherent Slough Adherent Slough -Structure Exposed N/A N/A -Texture (Lorenza-wound Skin Appearance) Assessed, Assessed Scarring -Moisture (Lorenza-wound Skin Appearance) Assessed Assessed,Dry/ Scaly -Color (Lorenza-wound Skin Appearance) Assessed Assessed -Temperature (Lorenza-wound Skin No Abnormality No Abnormality Appearance) (Pt Warm) (Pt Warm) -Tenderness on Palpation (Lorenza-wound No No Skin Appearance) -Ulcer Cleansing Wound Cleanser Soap and Water -Foul Odor after Cleansing No -Anesthetic Used 4% Lidocaine 4% Lidocaine Solution Solution Lower Limb Edema Present NA WC - Nurse 2 - General Ulcer CM Notes Start: 07/08/24 08:30 Freq: Status: Active Protocol: Activity Type Activity Date Activity User E-sign Co-sign Detail Recorded Client Recorded Date Recorded By Document 07/08/24 09:03 [facility] [id number] 07/08/24 09:17 [facility] 07/08/24 09:03 Wound Center Nurse 2 1. ABD -Time 09:03 -Correct Patient Yes -Correct Side, Site, Position Yes -Correct Procedure Yes -Procedure Performed Yes -Type of Procedure Debridement -Clinical Debridement Subcutaneous -Tissue Removed Subcutaneous -Post Debridement (cm) - Length 14 -Post Debridement (cm) - Width 19.5 -Post Debridement (cm) - Depth 0.1 -Total Square (Post) (cm) 273.0 -Area of Debridement (cm) - Length 14 -Area of Debridement (cm) - Width 19.5 -Total Square (Area) (cm) 273.0 -Tunneling No -Undermining/Tunneling No -Circular Undermining No -Wound/Ulcer Outcome Not Healed -Ulcer Cleansing Rinsed/ Irrigated with Saline -Foul Odor after Cleansing No -Bioengineered Tissue No -Bleeding Controlled with Pressure,Silver Nitrate -Treatment Response Procedure Tolerated Well -Debridement - Subq, 1st 20sq cm Yes -Debridement, SubQ, ea addt'l 20sq cm 13 or part thereof Pain Scale: 0-10 Numeric Is Patient Pain Free? Yes - Nurse 3 - General Ulcer D/C NN Start: 07/08/24 08:30 Freq: Status: Active Protocol: Activity Type Activity Date Activity User E-sign Co-sign Detail Recorded Client Recorded Date Recorded By Document 07/08/24 09:31 [place] [id number] 07/08/24 09:33 [place] Document 07/13/24 09:21 [id number] 07/13/24 09:23 07/08/24 07/13/24 09:31 09:21 Wound Care Center Nurse 3 1. ABD -Ulcer Cleansing Rinsed/ Irrigated with Saline -Foul Odor after Cleansing No -Primary Dressing Applied NonAdherent NonAdherent Contact Layer Contact Layer -Other Dressing xeroform x 4 abd pad -Primary Dressing Covered/Secured with Dry Gauze, Dry Gauze & Secured with Roll Gauze, Tape Secured with Tape -Wound Comment(s) Xeroform/ Pain Scale: 0-10 Numeric Is Patient Pain Free? Yes Yes - Visit Discharge Discharge Condition Stable Stable Ambulatory Status Ambulatory Ambulatory Transportation Private Auto Private Auto Medication Reconcilliation completed & No Yes provided to patient/care provider Clinical Summary of Care Provided Yes Yes Notes: pt and verbalized understanding of new wound dressing. Lab / Micro Data 07/08/24 10:53 07/08/24 10:53 Charges/Coding Visit Charges Office Visits / Consults: [id number] OV L5 New 60min Assessment/Plan Assessment/Plan (1) Diabetes mellitus with hyperglycemia: CODE(S): E11.65 - Type 2 diabetes mellitus with hyperglycemia QUALIFIERS: Diabetes mellitus type: type 2 Diabetes mellitus mcc insulin use: with clean in places operator use Qualified Code(s): E11.65 - Type 2 diabetes mellitus with hyperglycemia; Z79.4 - intermediate (current) use of insulin PLAN: This is a comorbidity that is complicating wound healing (2) Nonhealing surgical wound: CODE(S): T81.89XA - Other complications of procedures, not elsewhere classified, initial encounter QUALIFIERS: Encounter type: initial encounter Qualified Code(s): T81.89XA - Other complications of procedures, not elsewhere classified, initial encounter PLAN: We are planning to obtain surgical records from [facility] (as there any residual mesh?) Plan for CT scan with IV contrast to assess the abdominal wall and contents today. Plan for referral to general surgery, Dr. Renteria, for opinion regarding reconstruction with bridging mesh and soft tissue coverage (to prevent long-term abdominal wall morbidity) versus wearing a binder and using split-thickness skin graft for reconstruction. Plan to biopsy wound next week in the office Patient happy with the plan
--- NOTE | 2024-07-13 10:18 | CT_ITS ---
PROCEDURE: ABDOMEN/PELVIS WITH CONTRAST 07/13/2024 REASON FOR EXAM: NON-HEALING SURGICAL WOUND TECHNIQUE: Abdomen and pelvis CT without intravenous contrast. Noncontrast technique limits evaluation of the abdominal and pelvic viscera. Coronal and Sagittal reconstruction series were provided. One or more dose reduction techniques were used (e.g., Automated exposure control, adjustment of the mA and/or kV according to patient size, use of iterative reconstruction technique). PATIENT PREPARATION: Per protocol ORAL CONTRAST TYPE: None. COMPARISON: None available. FINDINGS: Lung bases: Mild dependent atelectasis coronary artery calcification. Liver: Normal size. No obvious mass. Gallbladder: Surgically absent. Spleen: Normal size. Pancreas: Normal size. No surrounding inflammation. Adrenals: Unremarkable Kidneys: Unremarkable. Bladder: Mild degree of bladder wall thickening. Bowel: No bowel obstruction. Appendix: The appendix is not identified. There is no inflammatory process identified in the right lower quadrant to suggest appendicitis. Lymph nodes: No suspicious lymph node enlargement. Vasculature: Mild diffuse atherosclerotic calcifications are noted. Peritoneum / Retroperitoneum: Thinning of the anterior abdominal wall with bulging of the anterior abdomen. Bones: Degenerative changes of the spine. CT/Abdomen/Pelvis WITH Contrast IMPRESSION: Mild bibasilar linear atelectasis. Status post cholecystectomy. No evidence of bowel obstruction. Reading Location: [place] [id number]
--- NOTE | 2024-07-14 14:45 | WC ---
PHOTO 07/13/24 ABD
[2024-07-20 08:28] VITALS: BP 187/90; PULSE 96; RESP 18; TEMP 36.4
--- NOTE | 2024-07-20 09:57 | PN.PCM_ITS ---
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 Through patient report, it was not discovered at the initial time of the hernia repair surgery and he subsequently required 3 surgeries for exploration of his abdomen and to fix the enterotomy site. Patient never had an ostomy. He had a prolonged hospital stay including prolonged intubation necessitating a tracheostomy (he has been decannulated for 1 week) and prolonged ICU admission followed by discharge to a residential facility. 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 He has an adult daughter with 2 adult grandchildren. Patient has never had any bleeding or clotting problems (he is not on any blood thinner and has not had a blood clot). He is not a smoker. Patient is a diabetic with an A1c of 7.7 (earlier this month). His prealbumin is 24 and his albumin is 3.5. For wound care he has been doing dressing changes with Xeroform and has tried the wound VAC in the past. He has not had a CT scan recently and he has not had a biopsy of the wound. He has not been using an abdominal binder. Subjective Subjective CURRENT ENCOUNTER, 20 July 2024: Patient seen and examined by Dr. 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 He recommended that for complex reconstruction he be referred to Dr. Murry at the [facility] for a TAR/ventral hernia repair. If patient desires, could defer definitive reconstruction and perform skin graft for improved quality of life (no wound), but the ventral diastases would widen. Patient would like to pursue definitive reconstruction at the [facility]. Otherwise from a wound care standpoint there are no new issues today. Objective Data Objective Data Vital Signs: Vital Signs Temp Pulse Resp BP O2 Del Method 97.6 F L 96 18 187/90 H Room Air 07/20/24 08:28 07/20/24 08:28 07/20/24 08:28 07/20/24 08:28 07/20/24 08:28 Oxygen Delivery Method Room Air Lab / Micro Data 07/08/24 10:53 07/08/24 10:53 Charges/Coding Visit Charges Office Visits / Consults: 89780 OV L3 Est 20min Physical Exam Narrative Abdomen: ~15 x 15 cm granulating central abdominal wound. No exposed mesh. No surrounding induration. There is loss of domain centrally with large diastases that is approximately ~15 cm wide and ~20 cm tall. PHOTOS FROM 13 July 2024 Debridement Note Debridement Note No debridement was completed: No debridement was completed today Post-Debridement Measurements and Additional Note: Post-Debridement Measurements/Treatment - Nurse 1 - General Ulcer Assessment Start: 07/08/24 08:30 Freq: Status: Active Protocol: OBDULIA Activity Type Activity Date Activity User E-sign Co-sign Detail Recorded Client Recorded Date Recorded By Document 07/08/24 08:34 RB [id number] 07/08/24 08:44 RB Document 07/13/24 08:25 DL [id number] 07/13/24 08:30 DL Document 07/20/24 08:28 KW [id number] 07/20/24 08:34 KW 07/08/24 07/13/24 07/20/24 08:34 08:25 08:28 - Today's Visit Information Type of service Initial Visit Follow-up Visit Follow-up Visit (Physician/RADIOLOGY RECEPTIONIST (Physician/RADIOLOGY RECEPTIONIST ) ) Physician Covering Nurse Only Visit C/S [facility] Arrival Mode Ambulatory Ambulatory Ambulatory Transfer Assistance None None Patient Identification Verified (Name & Yes Yes Yes ) Patient Requires Transmission-Based No No Precautions Vital Signs Temperature (97.8 F-99.1 F) 97.7 F L 97.3 F L 97.6 F L Temperature Source Temporal Temporal Temporal Pulse Rate (60-100) 96 99 96 Pulse Location Monitor Monitor Monitor Respiratory Rate (12-18) 18 18 18 Respiratory rate source Observation Observation Monitor Oxygen Delivery Method Room Air Blood Pressure (90/60-120/80) 152/79 H 159/84 H 187/90 H Blood Pressure Mean (mm Hg) 103 109 122 Source Monitor Monitor Monitor Position Semi-Fowlers Sitting Blood Pressure Location Left Arm Left Arm History Since Last Visit- (Skip if this is Patient's initial visit) Have you changed medications since your No No last visit? Any new allergies or adverse reactions No No Had a fall/change in ADL's that may No No increase risk of falls Signs or symptoms of abuse and/or No No neglect since last visit Have you been in the hospital since your No No last visit? Has dressing in place as prescribed Yes Yes Has compression in place as prescribed N/A N/A Has offloadiing in place as prescribed N/A N/A Experienced any changes in pain level or No No management Left Footwear Regular Shoe Regular Shoe Right Footwear Regular Shoe Regular Shoe Pain Scale: 0-10 Numeric Is Patient Pain Free? Yes Yes Yes Communication Assessment Preferred language Georgian Pointing Machine Operator Required No Able to Read Yes Able to Write Yes Communication Tools None Caregiver Communication Skills No Impairment Impairment Right Hearing Abillity Normal Left Hearing Abillity Normal Visual Assistive Devices Glasses Teaching Assessment Preferences Verbal,Written, Demonstration Barriers to Learning None Readiness To Learn Good Willingness to Engage in Self Management Med Activies Readiness to Engage in Self Management Med Activities Anxiety Level Anxious Cooperation Cooperative Perception Coherent Interest in Health Problem Asks Questions Education Importance Acknowledges Need Does Patient Smoke tobacco or other No substances Smoking Status Never smoker Functional Assessment Recent Decline in Ability to Perform Denies Any Declines Culture/Episcopal/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 Cpr Ambulance Driver to contact place of mormon No Teaching: Wound Center *Welcome to the Wound Center -Person Taught Patient -Teaching Method Discussion, Demonstration -Response to teaching Verbalize Understanding WC - Nurse 1 - General Ulcer Measurement Start: 07/08/24 08:30 Freq: Status: Active Protocol: Activity Type Activity Date Activity User E-sign Co-sign Detail Recorded Client Recorded Date Recorded By Document 07/08/24 08:34 RB [id number] 07/08/24 08:44 RB Document 07/13/24 08:25 DL [id number] 07/13/24 08:30 DL Document 07/20/24 08:28 KW [id number] 07/20/24 08:34 KW 07/08/24 07/13/24 07/20/24 08:34 08:25 08:28 Wound Center Nurse 1 1. ABD -Combined with other wound No No -Current Size (cm) - Length 15 13.1 16 -Current Size (cm) - Width 20.1 17 19.5 -Current Size (cm) - Depth 0.1 0.1 0.1 -Total Square Cm 301.5 222.7 312.0 -Date of Last Picture (Recall this 07/20/24 field) -Photo Taken Yes Yes -Epithelialization None Present -Tunneling No No -Undermining/Tunneling No No -Circular Undermining No No -Exudate Amt Medium Large None Present -Exudate Type Serosanguineous Serosanguineous -Wound Margin Distinct, Flat & Intact Outline Attached -Granulation Amt Medium (34-66%) Large (67-100%) -Granulation Quality [place] Hyper- Hyper- granulation granulation -Slough/Fibrin Yes Yes -Necrosis Amt Medium (34-66%) Small (1-33%) -Necrotic Tissue Type Adherent Slough Adherent Slough -Structure Exposed N/A N/A -Texture (Lorenza-wound Skin Appearance) Assessed, Assessed Assessed Scarring -Moisture (Lorenza-wound Skin Appearance) Assessed Assessed,Dry/ Assessed Scaly -Color (Lorenza-wound Skin Appearance) Assessed Assessed Assessed -Temperature (Lorenza-wound Skin No Abnormality No Abnormality No Abnormality Appearance) (Pt Warm) (Pt Warm) (Pt Warm) -Tenderness on Palpation (Lorenza-wound No No No Skin Appearance) -Ulcer Cleansing Wound Cleanser Soap and Water Soap and Water -Foul Odor after Cleansing No No -Anesthetic Used 4% Lidocaine 4% Lidocaine 4% Lidocaine Solution Solution Solution Lower Limb Edema Present NA WC - Nurse 2 - General Ulcer CM Notes Start: 07/08/24 08:30 Freq: Status: Active Protocol: Activity Type Activity Date Activity User E-sign Co-sign Detail Recorded Client Recorded Date Recorded By Document 07/08/24 09:03 [facility] [id number] 07/08/24 09:17 BM Document 07/13/24 08:55 DS [id number] 07/13/24 09:37 DS Document 07/20/24 09:08 DS [id number] 07/20/24 09:15 DS 07/08/24 07/13/24 07/20/24 09:03 08:55 09:08 Wound Center Nurse 2 1. ABD -Time 09:03 08:55 09:08 -Correct Patient Yes Yes Yes -Correct Side, Site, Position Yes Yes Yes -Correct Procedure Yes -Procedure Performed Yes No No -Type of Procedure Debridement -Clinical Debridement Subcutaneous -Tissue Removed Subcutaneous -Post Debridement (cm) - Length 14 15 15 -Post Debridement (cm) - Width 19.5 15 15 -Post Debridement (cm) - Depth 0.1 0.1 0.1 -Total Square (Post) (cm) 273.0 225 225 -Area of Debridement (cm) - Length 14 15 15 -Area of Debridement (cm) - Width 19.5 15 15 -Total Square (Area) (cm) 273.0 225 225 -Tunneling No No No -Undermining/Tunneling No No No -Circular Undermining No No No -Wound/Ulcer Outcome Not Healed Not Healed Not Healed -Ulcer Cleansing Rinsed/ Irrigated with Saline -Foul Odor after Cleansing No -Bioengineered Tissue No -Bleeding Controlled with Pressure,Silver Nitrate -Treatment Response Procedure Tolerated Well -Debridement - Subq, 1st 20sq cm Yes -Debridement, SubQ, ea addt'l 20sq cm 13 or part thereof Pain Scale: 0-10 Numeric Is Patient Pain Free? Yes Yes Yes - Nurse 3 - General Ulcer D/C NN Start: 07/08/24 08:30 Freq: Status: Active Protocol: Activity Type Activity Date Activity User E-sign Co-sign Detail Recorded Client Recorded Date Recorded By Document 07/08/24 09:31 MT [id number] 07/08/24 09:33 SD Document 07/13/24 09:21 JF [id number] 07/13/24 09:23 Document 07/20/24 09:24 KW [id number] 07/20/24 09:25 KW 07/08/24 07/13/24 07/20/24 09:31 09:21 09:24 Wound Care Center Nurse 3 1. ABD -Ulcer Cleansing Rinsed/ Irrigated with Saline -Foul Odor after Cleansing No -Primary Dressing Applied NonAdherent NonAdherent NonAdherent Contact Layer Contact Layer Contact Layer -Other Dressing xeroform x 4 abd pad xeroform -Primary Dressing Covered/Secured with Dry Gauze, Dry Gauze & Dry Gauze, Secured with Roll Gauze, Secured with Tape Secured with Tape Tape -Wound Comment(s) Xeroform/ Pain Scale: 0-10 Numeric Is Patient Pain Free? Yes Yes Yes - Visit Discharge Discharge Condition Stable Stable Stable Ambulatory Status Ambulatory Ambulatory Ambulatory Transportation Private Auto Private Auto Private Auto Medication Reconcilliation completed & No Yes No provided to patient/care provider Clinical Summary of Care Provided Yes Yes Yes Notes: pt and verbalized understanding of new wound dressing. Assessment/Plan Assessment/Plan (1) Nonhealing surgical wound: CODE(S): T81.89XA - Other complications of procedures, not elsewhere classified, initial encounter QUALIFIERS: Encounter type: initial encounter Qualified Code(s): T81.89XA - Other complications of procedures, not elsewhere classified, initial encounter (2) Hernia, ventral: CODE(S): K43.9 - Ventral hernia without obstruction or gangrene PLAN: Plan Patient has received a referral to the [facility] to see Dr. Murry and his team. Patient will follow-up in 3 weeks for wound check. Twice daily Xeroform dressing changes for now. We discussed the risks, benefits, and alternatives to skin graft for improved quality of life. Patient would like to defer skin graft at this time and would like to pursue definitive management of the wound with ventral defect repair/abdominal wall reconstruction.
--- NOTE | 2024-07-20 13:21 | WC ---
PHOTO 07/20/24 ABD
== END 2024-07-29 23:59 | disposition home or self-care (01) ==
LOC: WC 08:30
PROVIDERS: PCP Nurse Practitioner Family; Referring Provider Family Medicine; Visit Provider Nurse Practitioner
DX: T81.89XA Other complications of procedures, not elsewhere classified, initial encounter (principal); E11.65 Type 2 diabetes mellitus with hyperglycemia; Z79.4 Long term (current) use of insulin; I10 Essential (primary) hypertension; Z79.84 Long term (current) use of oral hypoglycemic drugs; E78.5 Hyperlipidemia, unspecified; L92.9 Granulomatous disorder of the skin and subcutaneous tissue, unspecified; K43.9 Ventral hernia without obstruction or gangrene
CPT/HCPCS: 11042; 11045; 36415; 74177; 80053; 83036; 84134; 84443; 85027; 99213; Q9967; G0463

== ENCOUNTER 2024-08-10 07:53 | Outpatient (RCR) | payer MEDICARE, OTHER, SELFPAY ==
[2024-07-30 00:44] VITALS: BP 187/90; PULSE 96; RESP 18; TEMP 36.4
--- NOTE | 2024-08-10 08:04 | PCM.WC.PN ---
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 Through patient report, it was not discovered at the initial time of the hernia repair surgery and he subsequently required 3 surgeries for exploration of his abdomen and to fix the enterotomy site. Patient never had an ostomy. He had a prolonged hospital stay including prolonged intubation necessitating a tracheostomy (he has been decannulated for 1 week) and prolonged ICU admission followed by discharge to a senior care facility. 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 He has an adult daughter with 2 adult grandchildren. Patient has never had any bleeding or clotting problems (he is not on any blood thinner and has not had a blood clot). He is not a smoker. Patient is a diabetic with an A1c of 7.7 (earlier this month). His prealbumin is 24 and his albumin is 3.5. For wound care he has been doing dressing changes with Xeroform and has tried the wound VAC in the past. He has not had a CT scan recently and he has not had a biopsy of the wound. He has not been using an abdominal binder. Subjective Subjective 20 July 2024: Patient seen and examined by Dr. 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 He recommended that for complex reconstruction he be referred to Dr. Murry at the [facility] for a TAR/ventral hernia repair. If patient desires, could defer definitive reconstruction and perform skin graft for improved quality of life (no wound), but the ventral diastases would widen. Patient would like to pursue definitive reconstruction at the [facility]. Otherwise from a wound care standpoint there are no new issues today. CURRENT ENCOUNTER, 10 Aug 2024: Patient reports that he has is seeing a hernia specialist at the [facility] on 10 September 2024. He cannot get an earlier appointment. He was also considering [facility] but they do not have an earlier appointment either per his report. I suggested he may be considered a surgeon at [facility]. Objective Data Objective Data Vital Signs: Vital Signs Temp Pulse Resp BP 97.6 F L 96 18 187/90 H 07/30/24 00:44 07/30/24 00:44 07/30/24 00:44 07/30/24 00:44 Charges/Coding Procedures Integumentary 111xxx-113xx: 87085 Sera subq tissue 20 sq cm/< Add On Codes: 66062 Sera subq tissue add-on (x13) Physical Exam Narrative Abdomen: ~18 x 15 cm granulating central abdominal wound. 0.1 cm deep. no exposed mesh. No surrounding induration. There is loss of domain centrally with large diastases that is approximately ~15 cm wide and ~20 cm tall. PHOTOS FROM 13 July 2024 Debridement Note Debridement Note Wound debrided: Abdominal wound Laterality: Not Applicable (Central) Wound Grade/Stage: Stage III Type of Debridement: Excisional debridement Anesthesia Used: 4% Lidocaine Solution Depth: in the subcutaneous layer Percentage of wound debrided: 100 Instrument Used: 7mm curette Tissue Removed: Necrotic biofilm and fibrinous debris at fat level Severity: Limited To Skin Breakdown Amount of bleeding with debridement: Moderate Bleeding Controlled with: Compression and gauze Patient tolerated procedure: Patient tolerated procedure well Assessment/Plan Assessment/Plan (1) Nonhealing surgical wound: CODE(S): T81.89XA - Other complications of procedures, not elsewhere classified, initial encounter QUALIFIERS: Encounter type: initial encounter Qualified Code(s): T81.89XA - Other complications of procedures, not elsewhere classified, initial encounter (2) Hernia, ventral: CODE(S): K43.9 - Ventral hernia without obstruction or gangrene PLAN: Plan Patient has a hernia specialist appointment per recommendation from Dr. Renteria (appreciate recommendations from general surgery). Continue binder as needed and adjust if it is needed for binder. Twice daily Xeroform dressing changes for now. We discussed the risks, benefits, and alternatives to skin graft for improved quality of life. We talked about skin graft failure. We talked about risk of bleeding, infection, and damage to surrounding structures. Patient understands the risks and benefits and will consider them when he discusses full abdominal wall reconstruction versus skin grafting with general surgery. I gave him strict return precautions including signs and symptoms of fistula formation or severe breakdown. Patient happy with the plan follow-up in 3 weeks.
[2024-08-10 08:32] VITALS: BP 150/71; PULSE 84; RESP 14; TEMP 36.3
== END 2024-08-29 23:59 | disposition home or self-care (01) ==
LOC: WC 07:53
PROVIDERS: PCP Nurse Practitioner Family; Referring Provider Family Medicine; Visit Provider Surgery Plastic and Reconstructive Surgery
DX: T81.89XA Other complications of procedures, not elsewhere classified, initial encounter (principal); E11.9 Type 2 diabetes mellitus without complications; K43.9 Ventral hernia without obstruction or gangrene
CPT/HCPCS: 11042; 11045

== ENCOUNTER 2024-09-14 08:15 | Outpatient (RCR) | payer MEDICARE, OTHER, SELFPAY ==
[2024-08-30 00:19] VITALS: BP 150/71; PULSE 84; RESP 14; TEMP 36.3
[2024-08-31 08:33] VITALS: BP 171/83; PULSE 94; RESP 14; TEMP 36.3
--- NOTE | 2024-08-31 11:35 | PN.PCM_ITS ---
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 Through patient report, it was not discovered at the initial time of the hernia repair surgery and he subsequently required 3 surgeries for exploration of his abdomen and to fix the enterotomy site. Patient never had an ostomy. He had a prolonged hospital stay including prolonged intubation necessitating a tracheostomy (he has been decannulated for 1 week) and prolonged ICU admission followed by discharge to a shelter facility. 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 He has an adult daughter with 2 adult grandchildren. Patient has never had any bleeding or clotting problems (he is not on any blood thinner and has not had a blood clot). He is not a smoker. Patient is a diabetic with an A1c of 7.7 (earlier this month). His prealbumin is 24 and his albumin is 3.5. For wound care he has been doing dressing changes with Xeroform and has tried the wound VAC in the past. He has not had a CT scan recently and he has not had a biopsy of the wound. He has not been using an abdominal binder. Subjective Subjective 20 July 2024: Patient seen and examined by Dr. 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 He recommended that for complex reconstruction he be referred to Dr. Murry at the [facility] for a TAR/ventral hernia repair. If patient desires, could defer definitive reconstruction and perform skin graft for improved quality of life (no wound), but the ventral diastases would widen. Patient would like to pursue definitive reconstruction at the [facility]. Otherwise from a wound care standpoint there are no new issues today. 10 Aug 2024: Patient reports that he has is seeing a hernia specialist at the [facility] on 10 September 2024. He cannot get an earlier appointment. He was also considering [facility] but they do not have an earlier appointment either per his report. I suggested he may be considered a surgeon at [facility]. CURRENT ENCOUNTER, 31 August 2024: Doing well overall. Next week he will see [facility] for evaluation for closure of his large ventral abdominal defect. He has gotten the CT scan that I ordered into their system for evaluation. Objective Data Objective Data Vital Signs: Vital Signs Temp Pulse Resp BP 97.3 F L 94 14 171/83 H 08/31/24 08:33 08/31/24 08:33 08/31/24 08:33 08/31/24 08:33 Charges/Coding Procedures Integumentary 111xxx-113xx: 51455 Sera subq tissue 20 sq cm/< Add On Codes: 31706 Sera subq tissue add-on (x7 units ) Physical Exam Narrative Abdomen: ~10 x 15 cm granulating central abdominal wound. 0.1 cm deep. no exposed mesh. No surrounding induration. There is loss of domain centrally with large diastases that is approximately ~15 cm wide and ~20 cm tall. PHOTOS FROM 13 July 2024 Debridement Note Debridement Note Wound debrided: Central abdominal wound Laterality: Not Applicable Wound Grade/Stage: Stage III Type of Debridement: Excisional debridement Anesthesia Used: 4% Lidocaine Solution Depth: in the subcutaneous layer Percentage of wound debrided: 100 Instrument Used: 7mm curette Tissue Removed: Necrotic debris and fibrinous exudate and biofilm Severity: Fat Layer Exposed Amount of bleeding with debridement: Moderate Bleeding Controlled with: Compression and gauze Patient tolerated procedure: Patient tolerated procedure well Post-Debridement Measurements and Additional Note: Post-Debridement Measurements/Treatment - Nurse 1 - General Ulcer Assessment Start: 08/31/24 08:33 Freq: Status: Active Protocol: OBDULIA Activity Type Activity Date Activity User E-sign Co-sign Detail Recorded Client Recorded Date Recorded By Document 08/31/24 08:33 ML [id number] 08/31/24 08:40 ML 08/31/24 08:33 - Today's Visit Information Type of service Follow-up Visit (Physician/FLY FISHING GUIDE ) Arrival Mode Ambulatory Transfer Assistance None Patient Identification Verified (Name & Yes ) Patient Requires Transmission-Based No Precautions Finger Stick Blood Sugar(mg/dl) (if 167 indicated): Blood Sugar Stated by Patient Vital Signs Temperature (97.8 F-99.1 F) 97.3 F L Temperature Source Temporal Pulse Rate (60-100) 94 Pulse Location Monitor Respiratory Rate (12-18) 14 Respiratory rate source Observation Blood Pressure (90/60-120/80) 171/83 H Blood Pressure Mean (mm Hg) 112 Source Monitor History Since Last Visit- (Skip if this is Patient's initial visit) Have you changed medications since your No last visit? Any new allergies or adverse reactions No Had a fall/change in ADL's that may No increase risk of falls Signs or symptoms of abuse and/or No neglect since last visit Have you been in the hospital since your No last visit? Has dressing in place as prescribed Yes Has compression in place as prescribed N/A Has offloadiing in place as prescribed N/A Experienced any changes in pain level or No management Pain Scale: 0-10 Numeric Is Patient Pain Free? Yes WC - Nurse 1 - General Ulcer Measurement Start: 08/31/24 08:33 Freq: Status: Active Protocol: Activity Type Activity Date Activity User E-sign Co-sign Detail Recorded Client Recorded Date Recorded By Document 08/31/24 08:33 ML [id number] 08/31/24 08:40 ML 08/31/24 08:33 Wound Center Nurse 1 1. ABD -Current Size (cm) - Length 11.5 -Current Size (cm) - Width 15 -Current Size (cm) - Depth 0.1 -Total Square Cm 172.5 -Exudate Amt Medium -Exudate Type Serosanguineous -Wound Margin Distinct, Outline Attached -Granulation Amt Medium (34-66%) -Granulation Quality [place] -Slough/Fibrin Yes -Necrosis Amt Small (1-33%) -Texture (Lorenza-wound Skin Appearance) Assessed -Color (Lorenza-wound Skin Appearance) Assessed -Temperature (Lorenza-wound Skin No Abnormality Appearance) (Pt Warm) -Tenderness on Palpation (Lorenza-wound No Skin Appearance) -Ulcer Cleansing Soap and Water -Foul Odor after Cleansing No -Anesthetic Used 4% Lidocaine Solution WC - Nurse 2 - General Ulcer CM Notes Start: 08/31/24 08:33 Freq: Status: Active Protocol: Activity Type Activity Date Activity User E-sign Co-sign Detail Recorded Client Recorded Date Recorded By Document 08/31/24 09:13 DS [id number] 08/31/24 09:14 DS 08/31/24 09:13 Wound Center Nurse 2 -Time 09:13 -Correct Patient Yes -Correct Side, Site, Position Yes -Correct Procedure Yes -Procedure Performed Yes -Type of Procedure Debridement -Clinical Debridement Subcutaneous -Tissue Removed Subcutaneous -Post Debridement (cm) - Length 10.0 -Post Debridement (cm) - Width 15.0 -Post Debridement (cm) - Depth 0.1 -Total Square (Post) (cm) 150.00 -Area of Debridement (cm) - Length 10 -Area of Debridement (cm) - Width 15 -Total Square (Area) (cm) 150 -Tunneling No -Undermining/Tunneling No -Circular Undermining No -Wound/Ulcer Outcome Not Healed -Ulcer Cleansing Rinsed/ Irrigated with Saline -Foul Odor after Cleansing No -Bioengineered Tissue No -Bleeding Controlled with Pressure -Treatment Response Procedure Tolerated Well -Debridement - Subq, 1st 20sq cm Yes -Debridement, SubQ, ea addt'l 20sq cm 7 or part thereof Pain Scale: 0-10 Numeric Is Patient Pain Free? Yes - Nurse 3 - General Ulcer D/C NN Start: 08/31/24 08:33 Freq: Status: Active Protocol: Activity Type Activity Date Activity User E-sign Co-sign Detail Recorded Client Recorded Date Recorded By Document 08/31/24 09:31 MENA [id number] 08/31/24 09:32 MENA 08/31/24 09:31 Wound Care Center Nurse 3 1. ABD -Ulcer Cleansing Rinsed/ Irrigated with Saline -Foul Odor after Cleansing No -Negative Pressure Wound Therapy N/A -Other Dressing saline gauze -Primary Dressing Covered/Secured with Dry Gauze, Secured with Tape Pain Scale: 0-10 Numeric Is Patient Pain Free? Yes - Visit Discharge Discharge Condition Stable Transportation Private Auto Accompanied by Medication Reconcilliation completed & Yes provided to patient/care provider Clinical Summary of Care Provided Yes Assessment/Plan Assessment/Plan (1) Nonhealing surgical wound: CODE(S): T81.89XA - Other complications of procedures, not elsewhere classified, initial encounter QUALIFIERS: Encounter type: initial encounter Qualified Code(s): T81.89XA - Other complications of procedures, not elsewhere classified, initial encounter (2) Hernia, ventral: CODE(S): K43.9 - Ventral hernia without obstruction or gangrene PLAN: Plan Patient has a hernia specialist appointment per recommendation from Dr. Renteria (appreciate recommendations from general surgery). Continue binder as needed and adjust if it is needed for binder. Daily saline wet to moist dressings for now We discussed the risks, benefits, and alternatives to skin graft for improved quality of life. We talked about skin graft failure. We talked about risk of bleeding, infection, and damage to surrounding structures. Patient understands the risks and benefits and will consider them when he discusses full abdominal wall reconstruction versus skin grafting with general surgery. I gave him strict return precautions including signs and symptoms of fistula formation or severe breakdown. Follow-up in 2 weeks after he has had his consultation at [facility]. Patient happy with the plan
[2024-09-14 08:16] VITALS: BP 173/98; PULSE 83; RESP 16; TEMP 36.6
--- NOTE | 2024-09-14 09:30 | PCM.WC.PN ---
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 Through patient report, it was not discovered at the initial time of the hernia repair surgery and he subsequently required 3 surgeries for exploration of his abdomen and to fix the enterotomy site. Patient never had an ostomy. He had a prolonged hospital stay including prolonged intubation necessitating a tracheostomy (he has been decannulated for 1 week) and prolonged ICU admission followed by discharge to a [facility] facility. 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 He has an adult daughter with 2 adult grandchildren. Patient has never had any bleeding or clotting problems (he is not on any blood thinner and has not had a blood clot). He is not a smoker. Patient is a diabetic with an A1c of 7.7 (earlier this month). His prealbumin is 24 and his albumin is 3.5. For wound care he has been doing dressing changes with Xeroform and has tried the wound VAC in the past. He has not had a CT scan recently and he has not had a biopsy of the wound. He has not been using an abdominal binder. Subjective Subjective 20 July 2024: Patient seen and examined by Dr. 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 He recommended that for complex reconstruction he be referred to Dr. Murry at the [facility] for a TAR/ventral hernia repair. If patient desires, could defer definitive reconstruction and perform skin graft for improved quality of life (no wound), but the ventral diastases would widen. Patient would like to pursue definitive reconstruction at the [facility]. Otherwise from a wound care standpoint there are no new issues today. 10 Aug 2024: Patient reports that he has is seeing a hernia specialist at the [facility] on 10 September 2024. He cannot get an earlier appointment. He was also considering [facility] but they do not have an earlier appointment either per his report. I suggested he may be considered a surgeon at [facility]. 31 August 2024: Doing well overall. Next week he will see [facility] for evaluation for closure of his large ventral abdominal defect. He has gotten the CT scan that I ordered into their system for evaluation. CURRENT ENCOUNTER,14 September 2024: The patient is a 74-year-old male presenting with a ventral hernia and an abdominal wall wound. The ventral hernia measures approximately 15 x 20 cm and is located underneath the abdominal wall wound. The abdominal wall wound is currently 12 x 8 cm and is showing signs of healing, with thin abdominal fascia present. The patient is scheduled for a ventral hernia repair at [facility] on December 01. In the interim, wound care is being managed with saline [id number] dressings, which are now recommended to be applied twice daily to promote healing. The patient has been advised to maintain a high-protein diet to support healing and prepare for the upcoming surgery. Attestation: Documentation on this patient encounter was supported using ambient scribe technology/ voice AI technology. The patient consented to recording for the purpose of documenting the encounter. Provider reviewed content of the generated note prior to signature. Objective Data Objective Data Vital Signs: Vital Signs Temp Pulse Resp BP 97.8 F 83 16 173/98 H 09/14/24 08:16 09/14/24 08:16 09/14/24 08:16 09/14/24 08:16 Charges/Coding Procedures Integumentary 111xxx-113xx: 25717 Sera subq tissue 20 sq cm/< Add On Codes: 50654 Sera subq tissue add-on (x4 units ) Physical Exam Narrative - Abdominal examination: 12 x 8 cm abdominal wall wound with thin abdominal fascia - Hernia examination: 15 x 20 cm ventral hernia noted Debridement Note Debridement Note Wound debrided: Abdominal wound, central Laterality: Not Applicable Wound Grade/Stage: Stage III Type of Debridement: Excisional debridement Anesthesia Used: 4% Lidocaine Solution Depth: in the subcutaneous layer Percentage of wound debrided: 100 Instrument Used: 7mm curette Tissue Removed: Necrotic fibrinous exudate and biofilm Severity: Fat Layer Exposed Amount of bleeding with debridement: Moderate Bleeding Controlled with: Compression and gauze Patient tolerated procedure: Patient tolerated procedure well Post-Debridement Measurements and Additional Note: Post-Debridement Measurements/Treatment WC - Nurse 1 - General Ulcer Assessment Start: 08/31/24 08:33 Freq: Status: Active Protocol: OBDULIA Activity Type Activity Date Activity User E-sign Co-sign Detail Recorded Client Recorded Date Recorded By Document 08/31/24 08:33 ML [id number] 08/31/24 08:40 ML Document 09/14/24 08:16 DL [id number] 09/14/24 08:21 DL 08/31/24 09/14/24 08:33 08:16 - Today's Visit Information Type of service Follow-up Visit Follow-up Visit (Physician/CHILD CARE WORKER (Physician/CHILD CARE WORKER ) ) Arrival Mode Ambulatory Ambulatory Transfer Assistance None Manual Patient Identification Verified (Name & Yes Yes ) Patient Requires Transmission-Based No No Precautions Finger Stick Blood Sugar(mg/dl) (if 167 indicated): Blood Sugar Stated by Patient Vital Signs Temperature (97.8 F-99.1 F) 97.3 F L 97.8 F Temperature Source Temporal Oral Pulse Rate (60-100) 94 83 Pulse Location Monitor Monitor Respiratory Rate (12-18) 14 16 Respiratory rate source Observation Monitor Blood Pressure (90/60-120/80) 171/83 H 173/98 H Blood Pressure Mean (mm Hg) 112 123 Source Monitor Monitor History Since Last Visit- (Skip if this is Patient's initial visit) Have you changed medications since your No No last visit? Any new allergies or adverse reactions No Had a fall/change in ADL's that may No No increase risk of falls Signs or symptoms of abuse and/or No No neglect since last visit Have you been in the hospital since your No No last visit? Has dressing in place as prescribed Yes Yes Has compression in place as prescribed N/A N/A Has offloadiing in place as prescribed N/A N/A Experienced any changes in pain level or No No management Pain Scale: 0-10 Numeric Is Patient Pain Free? Yes Yes - Nurse 1 - General Ulcer Measurement Start: 08/31/24 08:33 Freq: Status: Active Protocol: Activity Type Activity Date Activity User E-sign Co-sign Detail Recorded Client Recorded Date Recorded By Document 08/31/24 08:33 ML [id number] 08/31/24 08:40 ML Document 09/14/24 08:16 DL [id number] 09/14/24 08:21 DL 08/31/24 09/14/24 08:33 08:16 Wound Center Nurse 1 1. ABD -Current Size (cm) - Length 11.5 8.5 -Current Size (cm) - Width 15 12.2 -Current Size (cm) - Depth 0.1 0.1 -Total Square Cm 172.5 103.70 -Photo Taken Yes -Exudate Amt Medium Medium -Exudate Type Serosanguineous Serosanguineous -Wound Margin Distinct, Distinct, Outline Outline Attached Attached -Granulation Amt Medium (34-66%) Large (67-100%) -Granulation Quality [place] -Slough/Fibrin Yes -Necrosis Amt Small (1-33%) None Present (0 %) -Structure Exposed N/A -Texture (Lorenza-wound Skin Appearance) Assessed Scarring -Moisture (Lorenza-wound Skin Appearance) No Abnormality -Color (Lorenza-wound Skin Appearance) Assessed No Abnormality -Temperature (Lorenza-wound Skin No Abnormality No Abnormality Appearance) (Pt Warm) (Pt Warm) -Tenderness on Palpation (Lorenza-wound No Skin Appearance) -Ulcer Cleansing Soap and Water Soap and Water -Foul Odor after Cleansing No No -Anesthetic Used 4% Lidocaine 4% Lidocaine Solution Solution WC - Nurse 2 - General Ulcer CM Notes Start: 08/31/24 08:33 Freq: Status: Active Protocol: Activity Type Activity Date Activity User E-sign Co-sign Detail Recorded Client Recorded Date Recorded By Document 08/31/24 09:13 DS [id number] 08/31/24 09:14 DS Document 09/14/24 08:59 DS [id number] 09/14/24 09:00 DS 08/31/24 09/14/24 09:13 08:59 Wound Center Nurse 2 1. ABD -Time 09:13 08:59 -Correct Patient Yes Yes -Correct Side, Site, Position Yes Yes -Correct Procedure Yes Yes -Procedure Performed Yes Yes -Type of Procedure Debridement Debridement -Clinical Debridement Subcutaneous Subcutaneous -Tissue Removed Subcutaneous Subcutaneous -Post Debridement (cm) - Length 10.0 12.0 -Post Debridement (cm) - Width 15.0 8.0 -Post Debridement (cm) - Depth 0.1 0.1 -Total Square (Post) (cm) 150.00 96.00 -Area of Debridement (cm) - Length 10 12.0 -Area of Debridement (cm) - Width 15 8.0 -Total Square (Area) (cm) 150 96.00 -Tunneling No No -Undermining/Tunneling No No -Circular Undermining No No -Wound/Ulcer Outcome Not Healed Not Healed -Ulcer Cleansing Rinsed/ Rinsed/ Irrigated with Irrigated with Saline Saline -Foul Odor after Cleansing No No -Bioengineered Tissue No No -Bleeding Controlled with Pressure Pressure -Treatment Response Procedure Procedure Tolerated Well Tolerated Well -Debridement - Subq, 1st 20sq cm Yes Yes -Debridement, SubQ, ea addt'l 20sq cm 7 4 or part thereof Pain Scale: 0-10 Numeric Is Patient Pain Free? Yes Yes - Nurse 3 - General Ulcer D/C NN Start: 08/31/24 08:33 Freq: Status: Active Protocol: Activity Type Activity Date Activity User E-sign Co-sign Detail Recorded Client Recorded Date Recorded By Document 08/31/24 09:31 JF [id number] 08/31/24 09:32 JF Document 09/14/24 09:10 DL [id number] 09/14/24 09:11 DL 08/31/24 09/14/24 09:31 09:10 Wound Care Center Nurse 3 1. ABD -Ulcer Cleansing Rinsed/ Rinsed/ Irrigated with Irrigated with Saline Saline -Foul Odor after Cleansing No No -Negative Pressure Wound Therapy N/A -Other Dressing saline gauze moist saline gauze -Primary Dressing Covered/Secured with Dry Gauze, Secured with Secured with Tape Tape -Other Covering ABD Treatment Response Procedure Tolerated Well Pain Scale: 0-10 Numeric Is Patient Pain Free? Yes Yes - Visit Discharge Discharge Condition Stable Stable Ambulatory Status Ambulatory Transportation Private Auto Private Auto Accompanied by Medication Reconcilliation completed & Yes provided to patient/care provider Clinical Summary of Care Provided Yes Assessment/Plan Assessment/Plan (1) Nonhealing surgical wound: CODE(S): T81.89XA - Other complications of procedures, not elsewhere classified, initial encounter QUALIFIERS: Encounter type: initial encounter Qualified Code(s): T81.89XA - Other complications of procedures, not elsewhere classified, initial encounter (2) Hernia, ventral: CODE(S): K43.9 - Ventral hernia without obstruction or gangrene PLAN: Plan I gave him strict return precautions including signs and symptoms of fistula formation or severe breakdown. Follow-up in 2 weeks after he has had his consultation at [facility]. Patient happy with the plan 1. Ventral hernia The patient is scheduled for surgical repair at [facility] on December 01. Until then, wound care will continue with saline [id number] dressings applied twice daily to promote healing. The patient is advised to maintain a high-protein diet to support recovery and prepare for surgery. - Continue saline [id number] dressings twice daily to promote wound healing. - Maintain a high-protein diet, including eggs and chicken, to support healing and prepare for surgery. - Follow up in four weeks or sooner if there are any concerns.
--- NOTE | 2024-09-14 13:35 | WC ---
PHOTO 09/14/24 ABD
== END 2024-09-28 23:59 | disposition home or self-care (01) ==
LOC: WC 08:15
PROVIDERS: PCP Nurse Practitioner Family; Referring Provider Family Medicine; Visit Provider Surgery Plastic and Reconstructive Surgery
DX: T81.89XA Other complications of procedures, not elsewhere classified, initial encounter (principal); E11.9 Type 2 diabetes mellitus without complications; K43.9 Ventral hernia without obstruction or gangrene
CPT/HCPCS: 11042; 11045

== ENCOUNTER 2024-10-12 08:32 | Outpatient (RCR) | payer MEDICARE, OTHER, SELFPAY ==
[2024-10-12 08:44] VITALS: BP 195/95; PULSE 84; RESP 18; TEMP 36.6
--- NOTE | 2024-10-12 09:29 | PN.PCM_ITS ---
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 Through patient report, it was not discovered at the initial time of the hernia repair surgery and he subsequently required 3 surgeries for exploration of his abdomen and to fix the enterotomy site. Patient never had an ostomy. He had a prolonged hospital stay including prolonged intubation necessitating a tracheostomy (he has been decannulated for 1 week) and prolonged ICU admission followed by discharge to a snf facility. 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 He has an adult daughter with 2 adult grandchildren. Patient has never had any bleeding or clotting problems (he is not on any blood thinner and has not had a blood clot). He is not a smoker. Patient is a diabetic with an A1c of 7.7 (earlier this month). His prealbumin is 24 and his albumin is 3.5. For wound care he has been doing dressing changes with Xeroform and has tried the wound VAC in the past. He has not had a CT scan recently and he has not had a biopsy of the wound. He has not been using an abdominal binder. Subjective Subjective 20 July 2024: Patient seen and examined by Dr. 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 He recommended that for complex reconstruction he be referred to Dr. Murry at the [facility] for a TAR/ventral hernia repair. If patient desires, could defer definitive reconstruction and perform skin graft for improved quality of life (no wound), but the ventral diastases would widen. Patient would like to pursue definitive reconstruction at the [facility]. Otherwise from a wound care standpoint there are no new issues today. 10 Aug 2024: Patient reports that he has is seeing a hernia specialist at the [facility] on 10 September 2024. He cannot get an earlier appointment. He was also considering [facility] but they do not have an earlier appointment either per his report. I suggested he may be considered a surgeon at [facility]. 31 August 2024: Doing well overall. Next week he will see [facility] for evaluation for closure of his large ventral abdominal defect. He has gotten the CT scan that I ordered into their system for evaluation. 14 September 2024: The patient is a 74-year-old male presenting with a ventral hernia and an abdominal wall wound. The ventral hernia measures approximately 15 x 20 cm and is located underneath the abdominal wall wound. The abdominal wall wound is currently 12 x 8 cm and is showing signs of healing, with thin abdominal fascia present. The patient is scheduled for a ventral hernia repair at [place] on December 01. In the interim, wound care is being managed with saline [id number] dressings, which are now recommended to be applied twice daily to promote healing. The patient has been advised to maintain a high-protein diet to support healing and prepare for the upcoming surgery. Attestation: Documentation on this patient encounter was supported using ambient scribe technology/ voice AI technology. The patient consented to recording for the purpose of documenting the encounter. Provider reviewed content of the generated note prior to signature. Current Encounter, 12 October 2024: The patient is a 74-year-old male presenting with an abdominal wound. The wound measures approximately 11 x 9 cm and has been decreasing in size. Debridement is performed with minimal bleeding, and biofilm removal is ongoing to aid healing. The patient is scheduled for a hernia repair on December 01. The surgical team aims to ensure the abdominal wound is sufficiently healed to reduce infection risk before the procedure. The patient uses an abdominal binder for comfort and support. Attestation: Documentation on this patient encounter was supported using ambient scribe technology/ voice AI technology. The patient consented to recording for the purpose of documenting the encounter. Provider reviewed content of the generated note prior to signature. Objective Data Objective Data Vital Signs: Vital Signs Temp Pulse Resp BP O2 Del Method 97.8 F 84 18 195/95 H Room Air 10/12/24 08:44 10/12/24 08:44 10/12/24 08:44 10/12/24 08:44 10/12/24 08:44 Oxygen Delivery Method Room Air Charges/Coding Procedures Integumentary 111xxx-113xx: 24276 Sera subq tissue 20 sq cm/< Add On Codes: 04956 Sera subq tissue add-on (x 4 units) Physical Exam Narrative - Abdominal examination: Wound measuring 11 x 9 cm, smaller in size, minimal bleeding on debridement Hernia examination: 15 x 20 cm ventral hernia noted Debridement Note Debridement Note Wound debrided: Abdominal wound, central Laterality: Not Applicable Wound Grade/Stage: Stage 3 Type of Debridement: Excisional debridement Anesthesia Used: 4% Lidocaine Solution Depth: in the subcutaneous layer Percentage of wound debrided: 100 Instrument Used: 7mm curette Tissue Removed: Fibrinous exudate, biofilm, and hypertrophic granulation tissue Severity: Fat Layer Exposed Amount of bleeding with debridement: Moderate Bleeding Controlled with: Compression and gauze Patient tolerated procedure: Patient tolerated procedure well Post-Debridement Measurements and Additional Note: Post-Debridement Measurements/Treatment - Nurse 1 - General Ulcer Assessment Start: 10/12/24 08:44 Freq: Status: Active Protocol: OBDULIA Activity Type Activity Date Activity User E-sign Co-sign Detail Recorded Client Recorded Date Recorded By Document 10/12/24 08:44 STACEY [id number] 10/12/24 08:45 STACEY 10/12/24 08:44 HENRI - Today's Visit Information Type of service Follow-up Visit (Physician/MANAGER CARD ) Arrival Mode Ambulatory Accompanied by Patient Identification Verified (Name & Yes ) Vital Signs Temperature (97.8 F-99.1 F) 97.8 F Temperature Source Temporal Pulse Rate (60-100) 84 Pulse Location Monitor Respiratory Rate (12-18) 18 Respiratory rate source Observation Oxygen Delivery Method Room Air Blood Pressure (90/60-120/80) 195/95 H Blood Pressure Mean (mm Hg) 128 Source Monitor Position Semi-Fowlers Blood Pressure Location Right Arm History Since Last Visit- (Skip if this is Patient's initial visit) Have you changed medications since your No last visit? Any new allergies or adverse reactions No Had a fall/change in ADL's that may No increase risk of falls Signs or symptoms of abuse and/or No neglect since last visit Have you been in the hospital since your No last visit? Has dressing in place as prescribed Yes Has compression in place as prescribed N/A Has offloadiing in place as prescribed N/A Experienced any changes in pain level or No management Left Footwear Regular Shoe Right Footwear Regular Shoe Pain Scale: 0-10 Numeric Is Patient Pain Free? Yes - Nurse 1 - General Ulcer Measurement Start: 10/12/24 08:44 Freq: Status: Active Protocol: Activity Type Activity Date Activity User E-sign Co-sign Detail Recorded Client Recorded Date Recorded By Document 10/12/24 08:44 KW [id number] 10/12/24 08:45 KW 10/12/24 08:44 Wound Center Nurse 1 1. ABD -Current Size (cm) - Length 8.5 -Current Size (cm) - Width 11.3 -Current Size (cm) - Depth 0.1 -Total Square Cm 96.05 -Date of Last Picture (Recall this 10/12/24 field) -Exudate Amt Medium -Exudate Type Serosanguineous -Wound Margin Distinct, Outline Attached -Granulation Amt Large (67-100%) -Granulation Quality Red -Texture (Lorenza-wound Skin Appearance) Assessed -Moisture (Lorenza-wound Skin Appearance) Assessed -Color (Lorenza-wound Skin Appearance) Assessed -Temperature (Lorenza-wound Skin No Abnormality Appearance) (Pt Warm) -Tenderness on Palpation (Lorenza-wound No Skin Appearance) -Ulcer Cleansing Soap and Water -Foul Odor after Cleansing No -Anesthetic Used 4% Lidocaine Solution WC - Nurse 2 - General Ulcer CM Notes Start: 10/12/24 08:44 Freq: Status: Active Protocol: Activity Type Activity Date Activity User E-sign Co-sign Detail Recorded Client Recorded Date Recorded By Document 10/12/24 09:02 DS [id number] 10/12/24 09:08 DS 10/12/24 09:02 Wound Center Nurse 2 -Time 09:03 -Correct Patient Yes -Correct Side, Site, Position Yes -Correct Procedure Yes -Procedure Performed Yes -Type of Procedure Incision & Drainage -Clinical Debridement Subcutaneous -Tissue Removed Subcutaneous -Post Debridement (cm) - Length 11.0 -Post Debridement (cm) - Width 9.0 -Post Debridement (cm) - Depth 0.1 -Total Square (Post) (cm) 99.00 -Area of Debridement (cm) - Length 11.0 -Area of Debridement (cm) - Width 9.0 -Total Square (Area) (cm) 99.00 -Tunneling No -Undermining/Tunneling No -Circular Undermining No -Wound/Ulcer Outcome Not Healed -Ulcer Cleansing Rinsed/ Irrigated with Saline -Foul Odor after Cleansing No -Bioengineered Tissue No -Bleeding Controlled with Pressure -Treatment Response Procedure Tolerated Well -Debridement - Subq, 1st 20sq cm Yes -Debridement, SubQ, ea addt'l 20sq cm 4 or part thereof Pain Scale: 0-10 Numeric Is Patient Pain Free? Yes - Nurse 3 - General Ulcer D/C NN Start: 10/12/24 08:44 Freq: Status: Active Protocol: Activity Type Activity Date Activity User E-sign Co-sign Detail Recorded Client Recorded Date Recorded By Document 10/12/24 09:15 STACEY [id number] 10/12/24 09:16 STACEY 10/12/24 09:15 Wound Care Center Nurse 3 1. ABD -Ulcer Cleansing dakins -Primary Dressing Applied NonAdherent Contact Layer -Other Dressing xeroform -Primary Dressing Covered/Secured with Dry Gauze, Secured with Tape Pain Scale: 0-10 Numeric Is Patient Pain Free? Yes WC - Visit Discharge Discharge Condition Stable Ambulatory Status Ambulatory Transportation Private Auto Medication Reconcilliation completed & No provided to patient/care provider Clinical Summary of Care Provided Yes Assessment/Plan Assessment/Plan (1) Nonhealing surgical wound: CODE(S): T81.89XA - Other complications of procedures, not elsewhere classified, initial encounter QUALIFIERS: Encounter type: initial encounter Qualified Code(s): T81.89XA - Other complications of procedures, not elsewhere classified, initial encounter (2) Hernia, ventral: CODE(S): K43.9 - Ventral hernia without obstruction or gangrene PLAN: Plan Assessment and Plan The 74-year-old male with a history of an abdominal wound is presenting for wound management and preparation for a hernia repair. The wound, measuring 11 x 9 cm, is showing signs of healing with reduced size and minimal bleeding during debridement. The surgical team is focused on ensuring the wound heals adequately to minimize infection risk before the scheduled hernia repair on December 01. 1. Abdominal Wound The plan is to continue with regular debridement to promote healing and reduce biofilm presence. The patient is advised to continue using the abdominal binder for support and comfort. Follow-up is scheduled in one month to assess wound healing progress and readiness for hernia repair. 2. Hernia The hernia repair is scheduled for December 01, contingent upon adequate healing of the abdominal wound to minimize infection risk. The surgical team will reassess the wound closer to the surgery date to ensure it is sufficiently healed. - Continue using the abdominal binder for support and comfort. - Attend follow-up appointment in one month to assess wound healing. - Maintain regular wound care as instructed by the healthcare team.
--- NOTE | 2024-10-12 09:29 | PN.PCM_ITS ---
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 Through patient report, it was not discovered at the initial time of the hernia repair surgery and he subsequently required 3 surgeries for exploration of his abdomen and to fix the enterotomy site. Patient never had an ostomy. He had a prolonged hospital stay including prolonged intubation necessitating a tracheostomy (he has been decannulated for 1 week) and prolonged ICU admission followed by discharge to a [facility] facility. 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 He has an adult daughter with 2 adult grandchildren. Patient has never had any bleeding or clotting problems (he is not on any blood thinner and has not had a blood clot). He is not a smoker. Patient is a diabetic with an A1c of 7.7 (earlier this month). His prealbumin is 24 and his albumin is 3.5. For wound care he has been doing dressing changes with Xeroform and has tried the wound VAC in the past. He has not had a CT scan recently and he has not had a biopsy of the wound. He has not been using an abdominal binder. Subjective Subjective 20 July 2024: Patient seen and examined by Dr. 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 He recommended that for complex reconstruction he be referred to Dr. Murry at the [facility] for a TAR/ventral hernia repair. If patient desires, could defer definitive reconstruction and perform skin graft for improved quality of life (no wound), but the ventral diastases would widen. Patient would like to pursue definitive reconstruction at the [facility]. Otherwise from a wound care standpoint there are no new issues today. 10 Aug 2024: Patient reports that he has is seeing a hernia specialist at the [facility] on 10 September 2024. He cannot get an earlier appointment. He was also considering [facility] but they do not have an earlier appointment either per his report. I suggested he may be considered a surgeon at [facility]. 31 August 2024: Doing well overall. Next week he will see [facility] for evaluation for closure of his large ventral abdominal defect. He has gotten the CT scan that I ordered into their system for evaluation. 14 September 2024: The patient is a 74-year-old male presenting with a ventral hernia and an abdominal wall wound. The ventral hernia measures approximately 15 x 20 cm and is located underneath the abdominal wall wound. The abdominal wall wound is currently 12 x 8 cm and is showing signs of healing, with thin abdominal fascia present. The patient is scheduled for a ventral hernia repair at [facility] on December 01. In the interim, wound care is being managed with saline [id number] dressings, which are now recommended to be applied twice daily to promote healing. The patient has been advised to maintain a high-protein diet to support healing and prepare for the upcoming surgery. Attestation: Documentation on this patient encounter was supported using ambient scribe technology/ voice AI technology. The patient consented to recording for the purpose of documenting the encounter. Provider reviewed content of the generated note prior to signature. Current Encounter, 12 October 2024: The patient is a 74-year-old male presenting with an abdominal wound. The wound measures approximately 11 x 9 cm and has been decreasing in size. Debridement is performed with minimal bleeding, and biofilm removal is ongoing to aid healing. The patient is scheduled for a hernia repair on December 01. The surgical team aims to ensure the abdominal wound is sufficiently healed to reduce infection risk before the procedure. The patient uses an abdominal binder for comfort and support. Attestation: Documentation on this patient encounter was supported using ambient scribe technology/ voice AI technology. The patient consented to recording for the purpose of documenting the encounter. Provider reviewed content of the generated note prior to signature. Objective Data Objective Data Vital Signs: Vital Signs Temp Pulse Resp BP O2 Del Method 97.8 F 84 18 195/95 H Room Air 10/12/24 08:44 10/12/24 08:44 10/12/24 08:44 10/12/24 08:44 10/12/24 08:44 Oxygen Delivery Method Room Air Charges/Coding Procedures Integumentary 111xxx-113xx: 09089 Sera subq tissue 20 sq cm/< Add On Codes: 16498 Sera subq tissue add-on (x 4 units) Physical Exam Narrative - Abdominal examination: Wound measuring 11 x 9 cm, smaller in size, minimal bleeding on debridement Hernia examination: 15 x 20 cm ventral hernia noted Debridement Note Debridement Note Wound debrided: Abdominal wound, central Laterality: Not Applicable Wound Grade/Stage: Stage 3 Type of Debridement: Excisional debridement Anesthesia Used: 4% Lidocaine Solution Depth: in the subcutaneous layer Percentage of wound debrided: 100 Instrument Used: 7mm curette Tissue Removed: Fibrinous exudate, biofilm, and hypertrophic granulation tissue Severity: Fat Layer Exposed Amount of bleeding with debridement: Moderate Bleeding Controlled with: Compression and gauze Patient tolerated procedure: Patient tolerated procedure well Post-Debridement Measurements and Additional Note: Post-Debridement Measurements/Treatment - Nurse 1 - General Ulcer Assessment Start: 10/12/24 08:44 Freq: Status: Active Protocol: OBDULIA Activity Type Activity Date Activity User E-sign Co-sign Detail Recorded Client Recorded Date Recorded By Document 10/12/24 08:44 STACEY [id number] 10/12/24 08:45 STACEY 10/12/24 08:44 HENRI - Today's Visit Information Type of service Follow-up Visit (Physician/LEARNING ADMINISTRATOR ) Arrival Mode Ambulatory Accompanied by Patient Identification Verified (Name & Yes ) Vital Signs Temperature (97.8 F-99.1 F) 97.8 F Temperature Source Temporal Pulse Rate (60-100) 84 Pulse Location Monitor Respiratory Rate (12-18) 18 Respiratory rate source Observation Oxygen Delivery Method Room Air Blood Pressure (90/60-120/80) 195/95 H Blood Pressure Mean (mm Hg) 128 Source Monitor Position Semi-Fowlers Blood Pressure Location Right Arm History Since Last Visit- (Skip if this is Patient's initial visit) Have you changed medications since your No last visit? Any new allergies or adverse reactions No Had a fall/change in ADL's that may No increase risk of falls Signs or symptoms of abuse and/or No neglect since last visit Have you been in the hospital since your No last visit? Has dressing in place as prescribed Yes Has compression in place as prescribed N/A Has offloadiing in place as prescribed N/A Experienced any changes in pain level or No management Left Footwear Regular Shoe Right Footwear Regular Shoe Pain Scale: 0-10 Numeric Is Patient Pain Free? Yes - Nurse 1 - General Ulcer Measurement Start: 10/12/24 08:44 Freq: Status: Active Protocol: Activity Type Activity Date Activity User E-sign Co-sign Detail Recorded Client Recorded Date Recorded By Document 10/12/24 08:44 KW [id number] 10/12/24 08:45 KW 10/12/24 08:44 Wound Center Nurse 1 1. ABD -Current Size (cm) - Length 8.5 -Current Size (cm) - Width 11.3 -Current Size (cm) - Depth 0.1 -Total Square Cm 96.05 -Date of Last Picture (Recall this 10/12/24 field) -Exudate Amt Medium -Exudate Type Serosanguineous -Wound Margin Distinct, Outline Attached -Granulation Amt Large (67-100%) -Granulation Quality Red -Texture (Lorenza-wound Skin Appearance) Assessed -Moisture (Lorenza-wound Skin Appearance) Assessed -Color (Lorenza-wound Skin Appearance) Assessed -Temperature (Lorenza-wound Skin No Abnormality Appearance) (Pt Warm) -Tenderness on Palpation (Lorenza-wound No Skin Appearance) -Ulcer Cleansing Soap and Water -Foul Odor after Cleansing No -Anesthetic Used 4% Lidocaine Solution WC - Nurse 2 - General Ulcer CM Notes Start: 10/12/24 08:44 Freq: Status: Active Protocol: Activity Type Activity Date Activity User E-sign Co-sign Detail Recorded Client Recorded Date Recorded By Document 10/12/24 09:02 DS [id number] 10/12/24 09:08 DS 10/12/24 09:02 Wound Center Nurse 2 -Time 09:03 -Correct Patient Yes -Correct Side, Site, Position Yes -Correct Procedure Yes -Procedure Performed Yes -Type of Procedure Incision & Drainage -Clinical Debridement Subcutaneous -Tissue Removed Subcutaneous -Post Debridement (cm) - Length 11.0 -Post Debridement (cm) - Width 9.0 -Post Debridement (cm) - Depth 0.1 -Total Square (Post) (cm) 99.00 -Area of Debridement (cm) - Length 11.0 -Area of Debridement (cm) - Width 9.0 -Total Square (Area) (cm) 99.00 -Tunneling No -Undermining/Tunneling No -Circular Undermining No -Wound/Ulcer Outcome Not Healed -Ulcer Cleansing Rinsed/ Irrigated with Saline -Foul Odor after Cleansing No -Bioengineered Tissue No -Bleeding Controlled with Pressure -Treatment Response Procedure Tolerated Well -Debridement - Subq, 1st 20sq cm Yes -Debridement, SubQ, ea addt'l 20sq cm 4 or part thereof Pain Scale: 0-10 Numeric Is Patient Pain Free? Yes - Nurse 3 - General Ulcer D/C NN Start: 10/12/24 08:44 Freq: Status: Active Protocol: Activity Type Activity Date Activity User E-sign Co-sign Detail Recorded Client Recorded Date Recorded By Document 10/12/24 09:15 STACEY [id number] 10/12/24 09:16 STACEY 10/12/24 09:15 Wound Care Center Nurse 3 1. ABD -Ulcer Cleansing dakins -Primary Dressing Applied NonAdherent Contact Layer -Other Dressing xeroform -Primary Dressing Covered/Secured with Dry Gauze, Secured with Tape Pain Scale: 0-10 Numeric Is Patient Pain Free? Yes WC - Visit Discharge Discharge Condition Stable Ambulatory Status Ambulatory Transportation Private Auto Medication Reconcilliation completed & No provided to patient/care provider Clinical Summary of Care Provided Yes Assessment/Plan Assessment/Plan (1) Nonhealing surgical wound: CODE(S): T81.89XA - Other complications of procedures, not elsewhere classified, initial encounter QUALIFIERS: Encounter type: initial encounter Qualified Code(s): T81.89XA - Other complications of procedures, not elsewhere classified, initial encounter (2) Hernia, ventral: CODE(S): K43.9 - Ventral hernia without obstruction or gangrene PLAN: Plan Assessment and Plan The 74-year-old male with a history of an abdominal wound is presenting for wound management and preparation for a hernia repair. The wound, measuring 11 x 9 cm, is showing signs of healing with reduced size and minimal bleeding during debridement. The surgical team is focused on ensuring the wound heals adequately to minimize infection risk before the scheduled hernia repair on December 01. 1. Abdominal Wound The plan is to continue with regular debridement to promote healing and reduce biofilm presence. The patient is advised to continue using the abdominal binder for support and comfort. Follow-up is scheduled in one month to assess wound healing progress and readiness for hernia repair. 2. Hernia The hernia repair is scheduled for December 01, contingent upon adequate healing of the abdominal wound to minimize infection risk. The surgical team will reassess the wound closer to the surgery date to ensure it is sufficiently healed. - Continue using the abdominal binder for support and comfort. - Attend follow-up appointment in one month to assess wound healing. - Maintain regular wound care as instructed by the healthcare team.
--- NOTE | 2024-10-12 15:59 | WC ---
PHOTO 10/12/24 ABD
--- NOTE | 2024-10-12 15:59 | WC ---
PHOTO 10/12/24 ABD
== END 2024-10-29 23:59 | disposition home or self-care (01) ==
LOC: WC 08:32
PROVIDERS: PCP Nurse Practitioner Family; Referring Provider Family Medicine; Visit Provider Surgery Plastic and Reconstructive Surgery
DX: T81.89XA Other complications of procedures, not elsewhere classified, initial encounter (principal); E11.9 Type 2 diabetes mellitus without complications; K43.9 Ventral hernia without obstruction or gangrene
CPT/HCPCS: 11042; 11045

== ENCOUNTER 2024-11-09 08:32 | Outpatient (RCR) | payer MEDICARE, OTHER, SELFPAY ==
[2024-11-09 09:01] VITALS: PULSE 78; RESP 18; TEMP 36.4
--- NOTE | 2024-11-09 13:13 | PN.PCM_ITS ---
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 Through patient report, it was not discovered at the initial time of the hernia repair surgery and he subsequently required 3 surgeries for exploration of his abdomen and to fix the enterotomy site. Patient never had an ostomy. He had a prolonged hospital stay including prolonged intubation necessitating a tracheostomy (he has been decannulated for 1 week) and prolonged ICU admission followed by [facility] to a [facility] facility. 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 He has an adult daughter with 2 adult grandchildren. Patient has never had any bleeding or clotting problems (he is not on any blood thinner and has not had a blood clot). He is not a smoker. Patient is a diabetic with an A1c of 7.7 (earlier this month). His prealbumin is 24 and his albumin is 3.5. For wound care he has been doing dressing changes with Xeroform and has tried the wound VAC in the past. He has not had a CT scan recently and he has not had a biopsy of the wound. He has not been using an abdominal binder. Subjective Subjective 20 July 2024: Patient seen and examined by Dr. 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 He recommended that for complex reconstruction he be referred to Dr. Murry at the [facility] for a TAR/ventral hernia repair. If patient desires, could defer definitive reconstruction and perform skin graft for improved quality of life (no wound), but the ventral diastases would widen. Patient would like to pursue definitive reconstruction at the [facility]. Otherwise from a wound care standpoint there are no new issues today. 10 Aug 2024: Patient reports that he has is seeing a hernia specialist at the [facility] on 10 September 2024. He cannot get an earlier appointment. He was also considering [facility] but they do not have an earlier appointment either per his report. I suggested he may be considered a surgeon at [facility]. 31 August 2024: Doing well overall. Next week he will see [facility] for evaluation for closure of his large ventral abdominal defect. He has gotten the CT scan that I ordered into their system for evaluation. 14 September 2024: The patient is a 74-year-old male presenting with a ventral hernia and an abdominal wall wound. The ventral hernia measures approximately 15 x 20 cm and is located underneath the abdominal wall wound. The abdominal wall wound is currently 12 x 8 cm and is showing signs of healing, with thin abdominal fascia present. The patient is scheduled for a ventral hernia repair at [facility] on December 01. In the interim, wound care is being managed with saline fjr-xm-[id number] dressings, which are now recommended to be applied twice daily to promote healing. The patient has been advised to maintain a high-protein diet to support healing and prepare for the upcoming surgery. Attestation: Documentation on this patient encounter was supported using ambient scribe technology/ voice AI technology. The patient consented to recording for the purpose of documenting the encounter. Provider reviewed content of the generated note prior to signature. 12 October 2024: The patient is a 74-year-old male presenting with an abdominal wound. The wound measures approximately 11 x 9 cm and has been decreasing in size. Debridement is performed with minimal bleeding, and biofilm removal is ongoing to aid healing. The patient is scheduled for a hernia repair on December 01. The surgical team aims to ensure the abdominal wound is sufficiently healed to reduce infection risk before the procedure. The patient uses an abdominal binder for comfort and support. Attestation: Documentation on this patient encounter was supported using ambient scribe technology/ voice AI technology. The patient consented to recording for the purpose of documenting the encounter. Provider reviewed content of the generated note prior to signature. Current Encounter, 09 November 2024: Doing well with wound care. Has surgery for hernia repair at [facility] on 01 Dec 2024. Objective Data Objective Data Vital Signs: Vital Signs Temp Pulse Resp O2 Del Method 97.6 F L 78 18 Room Air 11/09/24 09:01 11/09/24 09:01 11/09/24 09:01 11/09/24 09:01 Oxygen Delivery Method Room Air Charges/Coding Procedures Integumentary 111xxx-113xx: 32639 Sera subq tissue 20 sq cm/< Physical Exam Narrative - Abdominal examination: Wound measuring smaller in size, minimal bleeding on debridement. Granulating well over central abdomen Hernia examination: 15 x 20 cm ventral hernia noted Debridement Note Debridement Note Wound debrided: Abdomen, central Laterality: Not Applicable Type of Debridement: Excisional debridement Anesthesia Used: 4% Lidocaine Solution Depth: in the subcutaneous layer Percentage of wound debrided: 100 Instrument Used: 7mm curette Tissue Removed: biofilm over the wound surface Severity: Limited To Skin Breakdown Amount of bleeding with debridement: Mild Bleeding Controlled with: Compression and gauze Patient tolerated procedure: Patient tolerated procedure well Post-Debridement Measurements and Additional Note: Post-Debridement Measurements/Treatment HENRI - Nurse 1 - General Ulcer Assessment Start: 11/09/24 09:00 Freq: Status: Active Protocol: OBDULIA Activity Type Activity Date Activity User E-sign Co-sign Detail Recorded Client Recorded Date Recorded By Document 11/09/24 09:01 STACEY [id number] 11/09/24 09:06 KW 11/09/24 09:01 WC - Today's Visit Information Type of service Follow-up Visit (Physician/INCOMING INSPECTOR ) Arrival Mode Ambulatory Accompanied by Patient Identification Verified (Name & Yes ) Vital Signs Temperature (97.8 F-99.1 F) 97.6 F L Temperature Source Temporal Pulse Rate (60-100) 78 Pulse Location Monitor Respiratory Rate (12-18) 18 Respiratory rate source Observation Oxygen Delivery Method Room Air Source Monitor Position Sitting Blood Pressure Location Right Arm History Since Last Visit- (Skip if this is Patient's initial visit) Have you changed medications since your No last visit? Any new allergies or adverse reactions No Had a fall/change in ADL's that may No increase risk of falls Signs or symptoms of abuse and/or No neglect since last visit Have you been in the hospital since your No last visit? Has dressing in place as prescribed Yes Has compression in place as prescribed N/A Has offloadiing in place as prescribed N/A Experienced any changes in pain level or No management Left Footwear Regular Shoe Right Footwear Regular Shoe Pain Scale: 0-10 Numeric Is Patient Pain Free? No HENRI - Nurse 1 - General Ulcer Measurement Start: 11/09/24 09:00 Freq: Status: Active Protocol: Activity Type Activity Date Activity User E-sign Co-sign Detail Recorded Client Recorded Date Recorded By Document 11/09/24 09:01 STACEY [id number] 11/09/24 09:06 KW 11/09/24 09:01 Wound Center Nurse 1 1. ABD -Current Size (cm) - Length 6.8 -Current Size (cm) - Width 9 -Current Size (cm) - Depth 0.1 -Total Square Cm 61.2 -Date of Last Picture (Recall this 11/09/24 field) -Exudate Amt Medium -Exudate Type Serosanguineous -Wound Margin Distinct, Outline Attached -Granulation Amt Large (67-100%) -Granulation Quality Red -Texture (Lorenza-wound Skin Appearance) Assessed -Moisture (Lorenza-wound Skin Appearance) Assessed -Color (Lorenza-wound Skin Appearance) Assessed -Temperature (Lorenza-wound Skin No Abnormality Appearance) (Pt Warm) -Tenderness on Palpation (Lorenza-wound No Skin Appearance) -Ulcer Cleansing Soap and Water -Foul Odor after Cleansing No -Anesthetic Used 5% Lidocaine Gel WC - Nurse 2 - General Ulcer CM Notes Start: 11/09/24 09:00 Freq: Status: Active Protocol: Activity Type Activity Date Activity User E-sign Co-sign Detail Recorded Client Recorded Date Recorded By Document 11/09/24 09:12 MENA [id number] 11/09/24 09:13 MENA 11/09/24 09:12 Wound Center Nurse 2 -Time 09:13 -Correct Patient Yes -Correct Side, Site, Position Yes -Correct Procedure Yes -Procedure Performed Yes -Type of Procedure Debridement -Clinical Debridement Subcutaneous -Tissue Removed Subcutaneous -Post Debridement (cm) - Length 9.5 -Post Debridement (cm) - Width 6.5 -Post Debridement (cm) - Depth 0.1 -Total Square (Post) (cm) 61.75 -Area of Debridement (cm) - Length 9.5 -Area of Debridement (cm) - Width 6.5 -Total Square (Area) (cm) 61.75 -Tunneling No -Undermining/Tunneling No -Circular Undermining No -Wound/Ulcer Outcome Not Healed -Ulcer Cleansing Rinsed/ Irrigated with Saline -Foul Odor after Cleansing No -Bioengineered Tissue No -Bleeding Controlled with Pressure -Treatment Response Procedure Tolerated Well -Offloading No -Debridement - Subq, 1st 20sq cm Yes -Debridement, SubQ, ea addt'l 20sq cm 3 or part thereof Pain Scale: 0-10 Numeric Is Patient Pain Free? Yes WC - Nurse 3 - General Ulcer D/C NN Start: 11/09/24 09:00 Freq: Status: Active Protocol: Activity Type Activity Date Activity User E-sign Co-sign Detail Recorded Client Recorded Date Recorded By Document 11/09/24 09:31 DL [id number] 11/09/24 09:32 DL 11/09/24 09:31 Wound Care Center Nurse 3 1. ABD -Ulcer Cleansing Dakins -Primary Dressing Applied NonAdherent Contact Layer -Other Dressing Xeroform/ABD -Primary Dressing Covered/Secured with Secured with Tape Treatment Response Procedure Tolerated Well Pain Scale: 0-10 Numeric Is Patient Pain Free? Yes WC - Visit Discharge Discharge Condition Stable Ambulatory Status Ambulatory Transportation Private Auto Assessment/Plan Assessment/Plan (1) Nonhealing surgical wound: CODE(S): T81.89XA - Other complications of procedures, not elsewhere classified, initial encounter QUALIFIERS: Encounter type: initial encounter Qualified Code(s): T81.89XA - Other complications of procedures, not elsewhere classified, initial encounter PLAN: Wound cleaned today Continue dressing changes until hernia surgery (current wound care regimen) Patient will follow up as needed following hernia reconstruction Patient happy with the plan
--- NOTE | 2024-11-09 13:13 | PN.PCM_ITS ---
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 Through patient report, it was not discovered at the initial time of the hernia repair surgery and he subsequently required 3 surgeries for exploration of his abdomen and to fix the enterotomy site. Patient never had an ostomy. He had a prolonged hospital stay including prolonged intubation necessitating a tracheostomy (he has been decannulated for 1 week) and prolonged ICU admission [facility]. 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 He has an adult daughter with 2 adult grandchildren. Patient has never had any bleeding or clotting problems (he is not on any blood thinner and has not had a blood clot). He is not a smoker. Patient is a diabetic with an A1c of 7.7 (earlier this month). His prealbumin is 24 and his albumin is 3.5. For wound care he has been doing dressing changes with Xeroform and has tried the wound VAC in the past. He has not had a CT scan recently and he has not had a biopsy of the wound. He has not been using an abdominal binder. Subjective Subjective 20 July 2024: Patient seen and examined by Dr. Rentreia, my general surgery colleague, who reviewed with him the results of the CT scan which demonstrated large 15 cm diastases with thin ventral soft tissue over the bowel. He recommended that for complex reconstruction he be referred to Dr. Murry at the [facility] for a TAR/ventral hernia repair. If patient desires, could defer definitive reconstruction and perform skin graft for improved quality of life (no wound), but the ventral diastases would widen. Patient would like to pursue definitive reconstruction at the [facility]. Otherwise from a wound care standpoint there are no new issues today. 10 Aug 2024: Patient reports that he has is seeing a hernia specialist at the [facility] on 10 September 2024. He cannot get an earlier appointment. He was also considering [facility] but they do not have an earlier appointment either per his report. I suggested he may be considered a surgeon at [facility]. 31 August 2024: Doing well overall. Next week he will see [facility] for evaluation for closure of his large ventral abdominal defect. He has gotten the CT scan that I ordered into their system for evaluation. 14 September 2024: The patient is a 74-year-old male presenting with a ventral hernia and an abdominal wall wound. The ventral hernia measures approximately 15 x 20 cm and is located underneath the abdominal wall wound. The abdominal wall wound is currently 12 x 8 cm and is showing signs of healing, with thin abdominal fascia present. The patient is scheduled for a ventral hernia repair at [facility] on December 01. In the interim, wound care is being managed with saline [id number] dressings, which are now recommended to be applied twice daily to promote healing. The patient has been advised to maintain a high-protein diet to support healing and prepare for the upcoming surgery. Attestation: Documentation on this patient encounter was supported using ambient scribe technology/ voice AI technology. The patient consented to recording for the purpose of documenting the encounter. Provider reviewed content of the generated note prior to signature. 12 October 2024: The patient is a 74-year-old male presenting with an abdominal wound. The wound measures approximately 11 x 9 cm and has been decreasing in size. Debridement is performed with minimal bleeding, and biofilm removal is ongoing to aid healing. The patient is scheduled for a hernia repair on December 01. The surgical team aims to ensure the abdominal wound is sufficiently healed to reduce infection risk before the procedure. The patient uses an abdominal binder for comfort and support. Attestation: Documentation on this patient encounter was supported using ambient scribe technology/ voice AI technology. The patient consented to recording for the purpose of documenting the encounter. Provider reviewed content of the generated note prior to signature. Current Encounter, 09 November 2024: Doing well with wound care. Has surgery for hernia repair at [facility] on 01 Dec 2024. Objective Data Objective Data Vital Signs: Vital Signs Temp Pulse Resp O2 Del Method 97.6 F L 78 18 Room Air 11/09/24 09:01 11/09/24 09:01 11/09/24 09:01 11/09/24 09:01 Oxygen Delivery Method Room Air Charges/Coding Procedures Integumentary 111xxx-113xx: 49677 Sera subq tissue 20 sq cm/< Physical Exam Narrative - Abdominal examination: Wound measuring smaller in size, minimal bleeding on debridement. Granulating well over central abdomen Hernia examination: 15 x 20 cm ventral hernia noted Debridement Note Debridement Note Wound debrided: Abdomen, central Laterality: Not Applicable Type of Debridement: Excisional debridement Anesthesia Used: 4% Lidocaine Solution Depth: in the subcutaneous layer Percentage of wound debrided: 100 Instrument Used: 7mm curette Tissue Removed: biofilm over the wound surface Severity: Limited To Skin Breakdown Amount of bleeding with debridement: Mild Bleeding Controlled with: Compression and gauze Patient tolerated procedure: Patient tolerated procedure well Post-Debridement Measurements and Additional Note: Post-Debridement Measurements/Treatment HENRI - Nurse 1 - General Ulcer Assessment Start: 11/09/24 09:00 Freq: Status: Active Protocol: OBDULIA Activity Type Activity Date Activity User E-sign Co-sign Detail Recorded Client Recorded Date Recorded By Document 11/09/24 09:01 STACEY [id number] 11/09/24 09:06 KW 11/09/24 09:01 WC - Today's Visit Information Type of service 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 Any new allergies or adverse reactions No Had a fall/change in ADL's that may No increase risk of falls Signs or symptoms of abuse and/or No neglect since last visit Have you been in the hospital since your No last visit? Has dressing in place as prescribed Yes Has compression in place as prescribed N/A Has offloadiing in place as prescribed N/A Experienced any changes in pain level or No management Left Footwear Regular Shoe Right Footwear Regular Shoe Pain Scale: 0-10 Numeric Is Patient Pain Free? No HENRI - Nurse 1 - General Ulcer Measurement Start: 11/09/24 09:00 Freq: Status: Active Protocol: Activity Type Activity Date Activity User E-sign Co-sign Detail Recorded Client Recorded Date Recorded By Document 11/09/24 09:01 STACEY [id number] 11/09/24 09:06 KW 11/09/24 09:01 Wound Center Nurse 1 1. ABD -Current Size (cm) - Length 6.8 -Current Size (cm) - Width 9 -Current Size (cm) - Depth 0.1 -Total Square Cm 61.2 -Date of Last Picture (Recall this 11/09/24 field) -Exudate Amt Medium -Exudate Type Serosanguineous -Wound Margin Distinct, Outline Attached -Granulation Amt Large (67-100%) -Granulation Quality Red -Texture (Lorenza-wound Skin Appearance) Assessed -Moisture (Lorenza-wound Skin Appearance) Assessed -Color (Lorenza-wound Skin Appearance) Assessed -Temperature (Lorenza-wound Skin No Abnormality Appearance) (Pt Warm) -Tenderness on Palpation (Lorenza-wound No Skin Appearance) -Ulcer Cleansing Soap and Water -Foul Odor after Cleansing No -Anesthetic Used 5% Lidocaine Gel WC - Nurse 2 - General Ulcer CM Notes Start: 11/09/24 09:00 Freq: Status: Active Protocol: Activity Type Activity Date Activity User E-sign Co-sign Detail Recorded Client Recorded Date Recorded By Document 11/09/24 09:12 MENA [id number] 11/09/24 09:13 MENA 11/09/24 09:12 Wound Center Nurse 2 -Time 09:13 -Correct Patient Yes -Correct Side, Site, Position Yes -Correct Procedure Yes -Procedure Performed Yes -Type of Procedure Debridement -Clinical Debridement Subcutaneous -Tissue Removed Subcutaneous -Post Debridement (cm) - Length 9.5 -Post Debridement (cm) - Width 6.5 -Post Debridement (cm) - Depth 0.1 -Total Square (Post) (cm) 61.75 -Area of Debridement (cm) - Length 9.5 -Area of Debridement (cm) - Width 6.5 -Total Square (Area) (cm) 61.75 -Tunneling No -Undermining/Tunneling No -Circular Undermining No -Wound/Ulcer Outcome Not Healed -Ulcer Cleansing Rinsed/ Irrigated with Saline -Foul Odor after Cleansing No -Bioengineered Tissue No -Bleeding Controlled with Pressure -Treatment Response Procedure Tolerated Well -Offloading No -Debridement - Subq, 1st 20sq cm Yes -Debridement, SubQ, ea addt'l 20sq cm 3 or part thereof Pain Scale: 0-10 Numeric Is Patient Pain Free? Yes WC - Nurse 3 - General Ulcer D/C NN Start: 11/09/24 09:00 Freq: Status: Active Protocol: Activity Type Activity Date Activity User E-sign Co-sign Detail Recorded Client Recorded Date Recorded By Document 11/09/24 09:31 DL [id number] 11/09/24 09:32 DL 11/09/24 09:31 Wound Care Center Nurse 3 1. ABD -Ulcer Cleansing Dakins -Primary Dressing Applied NonAdherent Contact Layer -Other Dressing Xeroform/ABD -Primary Dressing Covered/Secured with Secured with Tape Treatment Response Procedure Tolerated Well Pain Scale: 0-10 Numeric Is Patient Pain Free? Yes WC - Visit Discharge Discharge Condition Stable Ambulatory Status Ambulatory Transportation Private Auto Assessment/Plan Assessment/Plan (1) Nonhealing surgical wound: CODE(S): T81.89XA - Other complications of procedures, not elsewhere classified, initial encounter QUALIFIERS: Encounter type: initial encounter Qualified Code(s): T81.89XA - Other complications of procedures, not elsewhere classified, initial encounter PLAN: Wound cleaned today Continue dressing changes until hernia surgery (current wound care regimen) Patient will follow up as needed following hernia reconstruction Patient happy with the plan
--- NOTE | 2024-11-10 09:20 | WC ---
PHOTO-ABD 11/09/24
--- NOTE | 2024-11-10 09:20 | WC ---
PHOTO-ABD 11/09/24
== END 2024-11-26 07:46 | disposition home or self-care (01) ==
LOC: WC 08:32
PROVIDERS: PCP Nurse Practitioner Family; Referring Provider Family Medicine; Visit Provider Surgery Plastic and Reconstructive Surgery
DX: T81.89XA Other complications of procedures, not elsewhere classified, initial encounter (principal); E11.9 Type 2 diabetes mellitus without complications; K43.9 Ventral hernia without obstruction or gangrene
CPT/HCPCS: 11042; 11045

== ENCOUNTER 2024-12-20 16:43 | Emergency (ER) | payer MEDICARE, OTHER, SELFPAY ==
[2024-12-20] VITALS (7 sets, daily range): BP systolic 151–192; BP diastolic 77–86; PULSE 69–93; RESP 16–22; TEMP 36.7–36.9; O2SAT 93–95; BMI 34.8
--- OUTSIDE RECORDS SUMMARY | 2024-12-20 17:31 | XMS RPT_ITS | CCD ---
Author Organization [facility] Care Team Providers Care Contact Lens Curve Grinder Name Role Phone MARY HESS - ARNIE, KELLEY Casanova Primary Care Phys ician MARY Sierra CNP, KELLEY Casanova Attending U celine HERNANDEZ APRN - ARNIE, KELLEY Casanova Primary Care U LEV Robertson MD Attending Unavailpepe HERNANDEZ APRN - ARNIE, KELLEY Casanova Primary Care U celine HERNANDEZ APRN - ARNIE, KELLEY Casanova Attending U celine HERNANDEZ APRN - ARNIE, KELLEY Casanova Primary Care U celine BOWMAN MD, SALVADOR Attending Unavailable MARY HESS - ARNIE, KELLEY Casanova Primary Care U SALVADOR Vazquez MD Admitting Unavailable [facility] Consulting Unavailable SHIRIN FLETCHER MD Consulting Unavailable RAKESH STAUFFER, DR BUENO Consulting Unavailable RELL LUIS, SALVADOR Admitting Unavailable RELL LUIS, SALVADOR Attending Unavailable SARAI LUIS, CRISTIN Consulting Unavailable MARY Sierra CNP, KELLEY Casanova Primary Care U DIONI Vernon MD Consulting Unavailable GISSELLE LOVELACE MD Consulting Unavailable OSMIN MORROW MD, V Consulting Unavailable LUISITO MCNEILL DO Consulting Unavailshameka WHITE MD, SANDER Consulting Unavailable DIANNE LUIS, TORIBIO Consulting Unavailable RADHA MIN DO Consulting UnavailJUAN Tadeo MD Consulting Unavailable ELIZABETH GUERRA MD Consulting Unavailable ATIF SANTIAGO MD Consulting Unavailable SALVADOR BOWMAN MD Attending Unavailable MARY Sierra CNP, KELLEY Casanova Primary Care U TEVIN Baez MD Consulting Unavailable CHRISTOPHER LUIS, SANDER Consulting Unavailable NATALIYA UH MD Consulting Unavailable MARY Sierra CNP, KELLEY Casanova Primary Care U celine DEAN MD, TORIBIO Admitting Unavailable DIANNE LUIS, TORIBIO Attending Unavailable DIANNE LUIS, TORIBIO Consulting Unavailable RELL LUIS, SALVADOR Consulting Unavailable Unavailable Primary Care Provider Unavailshameka Jameson MD, Dr. Gutierres Primary Care Provider Dr. Bhavik Jameson MD Referring Provider Sanders BIODIESEL PRODUCTION TECHNICIAN-C, Patty Attending Provider Hilton BIODIESEL PRODUCTION TECHNICIAN-C, Nga Attending Provider Hilton BIODIESEL PRODUCTION TECHNICIAN-C, Nga Other Provider Mary BIODIESEL PRODUCTION TECHNICIAN-C, Kelley Henderson Primary Care Provi rashmi Dr. Efrain Hurtado MD Attending Provider Dexter LUIS, Dr. Yordy Morin Attending Provider Genesis LUIS, Dr. Zuniga Referring Provider Genesis LUIS, Dr. Zuniga Other Provider Trino LUIS, Dr. Gutierres Referring Provider Mary UPHOLSTERY INSTRUCTOR, Kelley D Primary Care Provider [phone] MARY PICK UP WORKER - UPHOLSTERY INSTRUCTOR, KELLEY D Primary Care U celine BOWMAN MD, SALVADOR Attending Unavailable MARY PICK UP WORKER - UPHOLSTERY INSTRUCTOR, KELLEY Jocelyne Primary Care U navailable MARY PICK UP WORKER - UPHOLSTERY INSTRUCTOR, KELLEY Jocelyne Attending U navailable MARY PICK UP WORKER - UPHOLSTERY INSTRUCTOR, KELLEY D Attending U navailable MARY PICK UP WORKER - UPHOLSTERY INSTRUCTOR, KELLEY D Primary Care U navailable MARY PICK UP WORKER - UPHOLSTERY INSTRUCTOR, KELLEY D Attending U navailable MARY PICK UP WORKER - UPHOLSTERY INSTRUCTOR, KELLEY D Primary Care U navailable MARY PICK UP WORKER - UPHOLSTERY INSTRUCTOR, KELLEY D Primary Care U navyuriy BOWMAN MD, SALVADOR Referring Unavailable RELL LUIS, SALVADOR Attending Unavailable RELL LUIS, SALVADOR Consulting Unavailable RELL LUIS, SALVADOR Admitting Unavailable KAPPER PICK UP WORKER-UPHOLSTERY INSTRUCTOR, MARILY Asia Consulting Unavaila joselyn Jameson MD, Dr. Gutierres Referring Provider Mary BIODIESEL PRODUCTION TECHNICIAN-C, Kelley Henderson Primary Care Provi rashmi Genesis LUIS, Dr. Zuniga Attending Provider Dr. Efrain Hurtado MD Referring Provider [phone] Hilton BIODIESEL PRODUCTION TECHNICIAN, Nga Consulting Unavailable Mary BIODIESEL PRODUCTION TECHNICIAN, Kelley Henderson Primary Care Unav ailable Siska, Efrain Attending Unavailable Jameson, Bhavik Referring Unavailable Mary BIODIESEL PRODUCTION TECHNICIAN, Kleley Henderson Primary Care Unav ailable Siska, Efrain Attending Unavailable Jameson, Bhavik Referring Unavailable Jameson, Bhavik Primary Care Unavailable Jacob Rios Attending Unavailable Canela BIODIESEL PRODUCTION TECHNICIAN, Nga Consulting Unavailable Henderson BIODIESEL PRODUCTION TECHNICIAN, Kelley Henderson Primary Care Unav ailable Siska, Efrain Attending Unavailable Jameson, Bhavik Referring Unavailable Siska, Efrain Referring Unavailable Mary BIODIESEL PRODUCTION TECHNICIAN, Kelley Henderson Primary Care Unav ailable Sisradha, Efrain Attending Unavailable Sisradha, Efrain Consulting Unavailable Siska, Efrain Consulting Unavailable Siska, Efrain Referring Unavailable Mary BIODIESEL PRODUCTION TECHNICIAN, Kelley Henderson Primary Care Unav ailable Genesis, Efrain Attending Unavailable Genesis, Efrain Consulting Unavailable Sisradha, Efrain Referring Unavailable Sisradha, Efrain Attending Unavailable Henderson BIODIESEL PRODUCTION TECHNICIAN, Kelley Henderson Primary Care Unav ailable Mary BIODIESEL PRODUCTION TECHNICIAN, Kelley Henderson Primary Care Unav ailable Gudla DEXTER, Kat Attending Unavailable Sisradha, Efrain Attending Unavailable Henderson BIODIESEL PRODUCTION TECHNICIAN, Kelley Henderson Primary Care Unav ailable Bhavik Jameson Referring Unavailable Mary BIODIESEL PRODUCTION TECHNICIAN, Kelley Henderson Primary Care Unav ailable Gudla Kat RENTERIA Referring Unavailable Gudla DEXTER, Kat Attending Unavailable Mary BIODIESEL PRODUCTION TECHNICIAN, Kelley Henderson Primary Care Unav ailable Gudla DEXTER, Kat Attending Unavailable Mary BIODIESEL PRODUCTION TECHNICIAN, Kelley Henderson Primary Care Unav ailable Gudla DEXTER, Kat Attending Unavailable Jameson Bhavik RENTERIA Attending Unavailable Mary BIODIESEL PRODUCTION TECHNICIAN, Kelley Henderson Primary Care Unav ailable Henderson BIODIESEL PRODUCTION TECHNICIAN, Kelley Henderson Primary Care Unav ailable JamesonBhavik merritt Referring Unavailable Siska, Efrain Attending Unavailable Henderson BIODIESEL PRODUCTION TECHNICIAN, Kelley Henderson Primary Care Unav ailable Genesis, Efrain Attending Unavailable JamesonBhavik Referring Unavailable Henderson BIODIESEL PRODUCTION TECHNICIAN, Kelley Henderson Primary Care Unav ailable Jameson, Bhavik Referring Unavailable Canela BIODIESEL PRODUCTION TECHNICIAN, Nga Attending Unavailable JamesonBhavik Primary Care Unavailable Jameson, Bhavik Referring Unavailable Patty Sanders Attending Unavailable Siska, Efrain Referring Unavailable Mary BIODIESEL PRODUCTION TECHNICIAN, Kelley Santiago Primary Care Unav ailYordy Carr Attending Unavailable Siska, Efrain Consulting Unavailable Genesis, Efrain Referring Unavailable Mary BIODIESEL PRODUCTION TECHNICIAN, Kelley Henderson Primary Care Unav ailable Genesis, Efrain Attending Unavailable Genesis, Efrain Consulting Unavailable Mary BIODIESEL PRODUCTION TECHNICIAN, Kelley Henderson Primary Care Unav ailable Genesis, Efrain Attending Unavailable Bhavik Jameson Referring Unavailable AUGIE PERSAUD Attending Unavailable AUGIE PERSAUD Admitting Unavailable KELLEY HERNANDEZ Primary Care Unavailable AUGIE PERSAUD Attending Unavailable SELF Referring Unavailable KELLEY EHRNANDEZ Primary Care Unavailable AUGIE PERSAUD Referring Unavailable MILESCHINO Referring Unavailable KELLEY HERNANDEZ Primary Care Unavailable Medications Current Medications Medication Drug Class(es) Dates Sig (Normalized) Sig (Original) 3 ML semaglutide 1.34 MG/ML Pen Injector [Ozempic] (7 sources) Start: 01-06-2024 inject 1 dose by subcutaneous injection every week Ozempic 4 mg/3 mL (1 mg dose) subcutaneous solution Dose : 1 mg =, Subcutaneous, qWeek, # 9 mL, 1 Refill(s), Pharmacy: [facility], 173.5, cm, 12/31/23 15:16:00 EDT, Height, kg, 12/31/23 15:16:00 EDT, Dosing Weight Start Date: 01/06/24 Status: Ordered Medication Dispense Status: Completed Quantity: 9.0 Unit: mL Total Allowed Fills: 2 Fills Dispensed: 0 Start: 01-06-2024 inject 1 dose by sub cutaneous injection every week Ozempic 4 mg/3 mL (1 mg dose) subcutaneous solution Dose : 1 mg =, Subcutaneous, qWeek, # 9 mL, 1 Refill(s), Pharmacy: [facility], 173.5, cm, 12/31/23 15:16:00 EDT, Height, kg, 12/31/23 15:16:00 EDT, Dosing Weight Start Date: 01/06/24 Status: Ordered Quantity: 9.0 Unit: mL Repeat number: 2 Start: 01-06-2024 inject 1 dose by sub cutaneous injection every week Ozempic 4 mg/3 mL (1 mg dose) subcutaneous solution Dose : 1 mg =, Subcutaneous, qWeek, # 9 mL, 1 Refill(s), Pharmacy: [facility], 173.5, cm, 12/31/23 15:16:00 EDT, Height, kg, 12/31/23 15:16:00 EDT, Dosing Weight Start Date: 01/06/24 Status: Ordered Start: 10-11-2023 inject 1 dose by sub cutaneous injection every week Ozempic 4 mg/3 mL (1 mg dose) subcutaneous solution Dose : 1 mg =, Subcutaneous, qWeek, # 6 mL, 1 Refill(s), Pharmacy: [facility], 175.5, cm, 07/25/23 15:34:00 EDT, Height, kg, 07/25/23 15:34:00 EDT, Dosing Weight Start Date: 10/11/23 Status: Ordered acetaminophen 650 mg rectal suppository (2 sources) Start: 03-18-2024 take 1 dose rectal route every four hours as needed for pain acetaminophen Dose : 650 mg =, Rectal, q4h, PRN as needed for pain, 0 Refill(s) Start Date: 03/18/24 Status: Ordered Repeat number: 1 acetaminophen 325 mg / HYDROcodone bitartrate 5 mg oral tablet (1 source) Opioid Agonist Start: 01-20-2024 End: 01-25-2024 Trinity 325- 5 mg oral tablet Dose = 1 tab(s), Oral, q4h, PRN Pain, scale 1-6, X 5 day(s), # 12 tab(s), 0 Refill(s), Pharmacy: [facility], Acute post-operative pain, 177.8, cm, 01/20/24 7:50:00 EDT, Height, 122, kg, 01/20/24 7:50:00 EDT, Dosing Weight Start Date: 01/20/24 Stop Date: 01/25/24 Status: Ordered acetylcysteine 100 mg/ml inhalation solution (1 source) Antidote, Mucolytic, Antidote for Acetaminophen Overdose Start: 03-18-2024 take 1 dose by inhalation twice daily acetylcysteine 10% inhalation solution Dose : 0.5 gram(s) = 5 mL, Inhalation, BID, 0 Refill(s) Start Date: 03/18/24 Status: Ordered Repeat number: 1 aluminum hydroxide 80 mg/ml / magnesium hydroxide 80 mg/ml / simethicone 8 mg/ml oral suspension (1 source) Start: 03-18-2024 take 1 dose by mouth four times daily at bedtime aluminum hydroxide/magnesiu m hydroxide/simethic one 400 mg-400 mg-40 mg/5 mL oral suspension Dose = 20 mL, Oral, QID, between meals and at bedtime, # 240 mL, 0 Refill(s) Start Date: 03/18/24 Status: Ordered Quantity: 240.0 Unit: mL Repeat number: 1 amoxicillin 875 mg / clavulanate 125 mg oral tablet (1 source) Penicillin-class Antibacterial Start: 03-21-2024 End: 04-04-2024 take 1 tablet by mouth every twelve hours amoxicillin-clavul anate 875 mg-125 mg oral tablet 1 tab(s), Oral, q12h, X 14 day(s), # 28 tab(s), 0 Refill(s), 04/04/24 12:30:00 PM EST, 100.8 Start Date: 03/21/24 Stop Date: 04/04/24 Status: Ordered Quantity: 28.0 Unit: tab(s) Repeat number: 1 biotin 5 mg/mL oral liquid (1 source) Start: 03-18-2024 biotin 5 mg/mL oral liquid PRN Dry mouth, 0 Refill(s) Start Date: 03/18/24 Status: Ordered Repeat number: 1 bisacodyl 10 mg rectal suppository (1 source) Stimulant Laxative Start: 03-18-2024 take 1 dose rectal route once daily as needed for constipation bisacodyl Dose : 10 mg =, Rectal, qDay, PRN as needed for constipation, 0 Refill(s) Start Date: 03/18/24 Status: Ordered Repeat number: 1 cephalexin 250 mg oral capsule (4 sources) Cephalosporin Antibacterial Start: 07-08-2024 take 1 capsule by mouth four times daily Cephalexin 250 mg capsule Active 250 mg PO 4 TIMES DAILY July 08, 2024 12:00am Cholecalciferol (11 sources) Vitamin D Start: 01-17-2024 take 1 capsule by mouth once Vitamin D (3) 45 units oral capsule 0 Refill(s) Start Date: 01/17/24 Status: Ordered Repeat number: 1 Start: 01-17-2024 Vitamin D (3) 45 units oral capsule 0 Refill(s) Start Date: 01/17/24 Status: Ordered Start: 06-27-2023 End: 12-24-2023 cholecalciferol 1250 mcg (50 ,000 intl units) oral capsule Dose : 50,000 International_Unit = 1 cap(s), Oral, every other week, # 7 cap(s), 1 Refill(s), Pharmacy: [facility], Vitamin D deficiency, 175.5, cm, 06/27/23 15:11:00 EDT, Height, kg, 06/27/23 15:11:00 EDT, Dosing Weight Start Date: 06/27/23 Stop Date: 12/24/23 Status: Ordered Start: 12-13-2022 End: 06-11-2023 cholecalciferol 1250 mcg (50 ,000 intl units) oral capsule Dose : 50,000 International_Unit = 1 cap(s), Oral, every other week, # 7 cap(s), 1 Refill(s), Pharmacy: [facility] ([facility]), Vitamin D deficiency, 175.5, cm, 12/13/22 15:23:00 EDT, Height, kg, 12/13/22 15:23:00 EDT, Dosing Weight Start Date: 12/13/22 Stop Date: 06/11/23 Status: Ordered Start: 06-04-2022 End: 12-01-2022 cholecalciferol 1250 mcg (50 ,000 intl units) oral capsule Dose : 50,000 International_Unit = 1 cap(s), Oral, every other week, # 7 cap(s), 1 Refill(s), Pharmacy: [facility] ([facility] Vitamin D deficiency, 177.8, cm, 06/04/22 16:01:00 EST, Height, kg, 06/04/22 16:01:00 EST, Dosing Weight Start Date: 06/04/22 Stop Date: 12/01/22 Status: Ordered Start: 05-04-2021 End: 05-26-2022 cholecalciferol 1250 mcg (50 ,000 intl units) oral capsule Dose : 50,000 International_Unit = 1 cap(s), Oral, every other week, # 7 cap(s), 1 Refill(s), Pharmacy: [facility] ([facility]), Vitamin D deficiency, 127.3, cm, 11/27/21 16:15:00 EDT, Height, kg, 11/27/21 16:15:00 EDT, Dosing Weight Start Date: 11/27/21 Stop Date: 05/26/22 Status: Ordered dapagliflozin 10 mg oral tablet (20 sources) Sodium-Glucose Cotransporter 2 Inhibitor Start: 10-24-2021 take 1 tablet by mouth once daily Dapagliflozin Propanediol (Farxiga) 10 mg tablet Active 10 mg PO DAILY October 31, 2021 12:00am Start: 07-07-2020 Farxiga 10 mg oral tablet Dose : 10 mg = 1 tab(s), Oral, qDay, # 90 tab(s), 1 Refill(s), Pharmacy: [facility], 177, cm, 07/07/20 13:54:00 EDT, Height, kg, 07/07/20 13:54:00 EDT, Dosing Weight Start Date: 07/07/20 Status: Ordered 0.5 ML dulaglutide 9 MG/ML Auto-Injector [Trulicity] (9 sources) GLP-1 Receptor Agonist Start: 04-12-2023 inject 1 dose by subcutaneous injection every week Trulicity Pen 4.5 mg/0.5 mL subcutaneous solution Dose : 0.5 mL =, Subcutaneous, qWeek, rotate injection sites, # 6 mL, 1 Refill(s), 0.5 mL/Pen, Pharmacy: [facility], 175.5, cm, 01/17/23 15:20:00 EDT, Height, kg, 01/17/23 15:20:00 EDT, Dosing Weight Start Date: 04/12/23 Status: Ordered Start: 10-01-2022 inject 1 dose by sub cutaneous injection every week TrBandgap Engineeringity Pen 4.5 mg/0.5 mL subcutaneous solution Dose : 0.5 mL =, Subcutaneous, qWeek, rotate injection sites, # 6 mL, 1 Refill(s), 0.5 mL/Pen, Pharmacy: [facility] ([facility] ), 175.4, cm, 07/19/22 15:47:00 EDT, Height, kg, 07/19/22 15:47:00 EDT, Dosing Weight Start Date: 10/01/22 Status: Ordered Start: 05-21-2022 inject 1 dose by sub cutaneous injection every week Trulicity Pen 4.5 mg/0.5 mL subcutaneous solution Dose : 0.5 mL =, Subcutaneous, qWeek, rotate injection sites, # 6 mL, 1 Refill(s), 0.5 mL/Pen, Pharmacy: [facility] ([facility] ), 127.3, cm, 02/15/22 15:53:00 EST, Height, kg, 02/15/22 15:53:00 EST, Dosing Weight Start Date: 05/21/22 Status: Ordered Start: 11-27-2021 inject 1 dose by sub cutaneous injection every week Trulicity Pen 4.5 mg/0.5 mL subcutaneous solution Dose : 0.5 mL =, Subcutaneous, qWeek, rotate injection sites, # 6 mL, 1 Refill(s), 0.5 mL/Pen, Pharmacy: [facility] ([facility]), 177.8, cm, 10/24/21 14:29:00 EDT, Height, kg, 10/24/21 14:29:00 EDT, Dosing Weight Start Date: 11/27/21 Status: Ordered Start: 05-25-2021 inject 1 dose by sub cutaneous injection every week Trulicity Pen 4.5 mg/0.5 mL subcutaneous solution Dose : 0.5 mL =, Subcutaneous, qWeek, rotate injection sites, # 6 mL, 1 Refill(s), 0.5 mL/Pen, Pharmacy: [facility], 177.8, cm, 05/25/21 14:56:00 EST, Height, kg, 05/25/21 14:56:00 EST, Dosing Weight Start Date: 05/25/21 Status: Ordered Start: 02-07-2021 inject 0.5 mL by sub cutaneous injection every week Trulicity Pen 3 mg/0.5 mL subcutaneous solution Dose : 3 mg = 0.5 mL, Subcutaneous, qWeek, rotate injection sites, # 2 mL, 0 Refill(s), Pharmacy: [facility], 174.5, cm, 11/10/20 14:00:00 EDT, Height, kg, 11/10/20 14:00:00 EDT, Dosing Weight Start Date: 02/07/21 Status: Ordered Start: 09-27-2020 inject 0.5 mL by sub cutaneous injection every week Fordity Pen 3 mg/0.5 mL subcutaneous solution Dose : 3 mg = 0.5 mL, Subcutaneous, qWeek, rotate injection sites, # 2 mL, 3 Refill(s), Pharmacy: [facility], 175, cm, 09/27/20 15:16:00 EDT, Height, kg, 09/27/20 15:16:00 EDT, Dosing Weight Start Date: 09/27/20 Status: Ordered empagliflozin 25 mg oral tablet (1 source) Sodium-Glucose Cotransporter 2 Inhibitor Start: 03-18-2024 empagliflozin 25 mg oral tablet Dose : 25 mg = 1 tab(s), PEG, qAM, 0 Refill(s) Start Date: 03/18/24 Status: Ordered Repeat number: 1 escitalopram 10 mg oral tablet (5 sources) Serotonin Reuptake Inhibitor Start: 06-18-2024 take 1 tablet by mouth once daily Escitalopram Oxalate 10 mg tablet Active 10 mg PO daily June 18, 2024 12:00am Start: 03-18-2024 escitalopram 1 0 mg oral tablet Dose : 10 mg = 1 tab(s), PEG, qDay, # 30 tab(s), 0 Refill(s) Start Date: 03/18/24 Status: Ordered Quantity: 30.0 Unit: tab(s) Repeat number: 1 famotidine 20 mg oral tablet (1 source) Histamine-2 Receptor Antagonist Start: 03-18-2024 famotidine 20 mg ora l tablet Dose : 20 mg = 1 tab(s), PEG, qDay, # 30 tab(s), 0 Refill(s) Start Date: 03/18/24 Status: Ordered Quantity: 30.0 Unit: tab(s) Repeat number: 1 guaiFENesin (2 sources) Start: 03-18-2024 guaiFENesin 10 mL, PEG, q4h, PRN for cough, # 600 mL, 0 Refill(s) Start Date: 03/18/24 Status: Ordered Quantity: 600.0 Unit: mL Repeat number: 1 Start: 03-18-2024 guaiFENesin Do se : 600 mg =, PEG, q12h, 0 Refill(s) Start Date: 03/18/24 Status: Ordered Repeat number: 1 Lantus (2 sources) Insulin Analog Start: 03-18-2024 inject 1 dose by subcutaneous injection twice daily Lantus Dose : 18 unit(s) =, Subcutaneous, BID, 0 Refill(s) Start Date: 03/18/24 Status: Ordered Repeat number: 1 3 ml insulin lispro 50 unt/ml / insulin lispro protamine, human 50 unt/ml pen injector (14 sources) Insulin Analog Start: 01-17-2024 inject 1 dose by subcutaneous injection twice daily HumaLOG Mix 50/50 KwikPen 3 mL PEN Dose : 15 unit(s) =, Subcutaneous, BID, # 3 mL, 0 Refill(s) Start Date: 01/17/24 Status: Ordered Quantity: 3.0 Unit: mL Repeat number: 1 Start: 05-21-2022 HumaLOG Mix 50 /50 KwikPen 3 mL PEN 30 unit(s), Subcutaneous, BIDAC, # 90 mL, 1 Refill(s), Pharmacy: [facility] ([facility] ), 127.3, cm, 02/15/22 15:53:00 EST, Height, kg, 02/15/22 15:53:00 EST, Dosing Weight Start Date: 05/21/22 Status: Ordered Start: 01-03-2022 HumaLOG Mix 50 /50 KwikPen 3 mL PEN 30 unit(s), Subcutaneous, BIDAC, # 90 mL, 1 Refill(s), Pharmacy: [facility] ([facility]), 127.3, cm, 11/27/21 16:15:00 EDT, Height, kg, 11/27/21 16:15:00 EDT, Dosing Weight Start Date: 01/03/22 Status: Ordered Start: 10-31-2021 End: 06-18-2024 Insulin Lispro Protamin-Lisp ro (Humalog Mix 50-50 Kwikpen) 100 unit/mL (50-50) insulin pen Discontinued 3 U SC October 31, 2021 12:00am June 18, 2024 2:21pm Start: 10-05-2021 HumaLOG Mix 50 /50 KwikPen 3 mL PEN 30 unit(s), Subcutaneous, BIDAC, # 30 mL, 1 Refill(s), Pharmacy: [facility]), 177.8, cm, 05/25/21 14:56:00 EST, Height, kg, 05/25/21 14:56:00 EST, Dosing Weight Start Date: 10/05/21 Status: Ordered ipratropium bromide 0.2 mg/ml inhalation solution (1 source) Anticholinergic Start: 03-18-2024 take 1 dose by inhalation four times daily as needed ipratropium 500 mcg/2.5 mL inhalation solution Dose : 500 mcg = 2.5 mL, Inhalation, QID, PRN Respiratory distress, 0 Refill(s) Start Date: 03/18/24 Status: Ordered Repeat number: 1 levoFLOXacin 750 mg oral tablet (1 source) Quinolone Antimicrobial Start: 03-21-2024 End: 04-04-2024 levoFLOXacin 750 mg oral tablet Dose : 750 mg = 1 tab(s), Oral, q24h, X 14 day(s), # 14 tab(s), 0 Refill(s), 04/04/24 12:30:00 PM EST, 100.8 Start Date: 03/21/24 Stop Date: 04/04/24 Status: Ordered Quantity: 14.0 Unit: tab(s) Repeat number: 1 levothyroxine sodium 0.025 mg oral tablet (20 sources) l-Thyroxine Start: 08-17-2024 levothyroxine 25 mcg (0.025 mg) oral tablet Dose : 50 mcg = 2 tab(s), Oral, qDay, # 180 tab(s), 2 Refill(s), Pharmacy: [facility], Hypothyroidism in adult, 177, cm, 07/20/24 14:42:00 EDT, Height, kg, 07/20/24 14:42:00 EDT, Dosing Weight Start Date: 08/17/24 Status: Ordered Medication Dispense Status: Completed Quantity: 180.0 Unit: tab(s) Total Allowed Fills: 3 Fills Dispensed: 0 Indications: Hypothyroidism, unspecified; Start: 07-20-2024 levothyroxine 25 mcg (0.025 mg) oral tablet Dose : 50 mcg = 2 tab(s), Oral, qDay, # 60 tab(s), 0 Refill(s), Pharmacy: [facility], Hypothyroidism in adult, 177, cm, 07/20/24 14:42:00 EDT, Height, kg, 07/20/24 14:42:00 EDT, Dosing Weight Start Date: 07/20/24 Status: Ordered Quantity: 60.0 Unit: tab(s) Repeat number: 1 Indications: Hypothyroidism, unspecified; Start: 07-20-2024 take 1 tablet by jayson once daily levothyroxine (SYNTHROID) 25 mcg tablet Take 25 mcg by mouth once daily. 07/20/2024 Suspended Start: 06-18-2024 take 1 capsule by mo [facility] once daily Levothyroxine 50 mcg capsule Active 50 ug PO daily June 18, 2024 12:00am Start: 12-31-2023 End: 06-28-2024 levothyroxine 25 mcg (0.025 mg) oral tablet Dose : 50 mcg = 2 tab(s), Oral, qDay, # 180 tab(s), 1 Refill(s), Pharmacy: [facility], Hypothyroidism in adult, 173.5, cm, 12/31/23 15:16:00 EDT, Height, kg, 12/31/23 15:16:00 EDT, Dosing Weight Start Date: 12/31/23 Stop Date: 06/28/24 Status: Ordered Quantity: 180.0 Unit: tab(s) Repeat number: 2 Indication: Hypothyroidism, unspecified Start: 06-27-2023 End: 12-24-2023 levothyroxine 25 mcg (0.025 mg) oral tablet Dose : 50 mcg = 2 tab(s), Oral, qDay, # 180 tab(s), 1 Refill(s), Pharmacy: [facility], Hypothyroidism in adult, 175.5, cm, 06/27/23 15:11:00 EDT, Height, kg, 06/27/23 15:11:00 EDT, Dosing Weight Start Date: 06/27/23 Stop Date: 12/24/23 Status: Ordered Start: 12-13-2022 End: 06-11-2023 levothyroxine 25 mcg (0.025 mg) oral tablet Dose : 50 mcg = 2 tab(s), Oral, qDay, # 180 tab(s), 1 Refill(s), Pharmacy: [facility] ([facility]), Hypothyroidism in adult, 175.5, cm, 12/13/22 15:23:00 EDT, Height, kg, 12/13/22 15:23:00 EDT, Dosing Weight Start Date: 12/13/22 Stop Date: 06/11/23 Status: Ordered Start: 06-04-2022 End: 12-01-2022 levothyroxine 25 mcg (0.025 mg) oral tablet Dose : 50 mcg = 2 tab(s), Oral, qDay, # 180 tab(s), 1 Refill(s), Pharmacy: [facility] ([facility] ), Hypothyroidism in adult, 177.8, cm, 06/04/22 16:01:00 EST, Height, kg, 06/04/22 16:01:00 EST, Dosing Weight Start Date: 06/04/22 Stop Date: 12/01/22 Status: Ordered Start: 10-14-2020 End: 05-26-2022 levothyroxine 25 mcg (0.025 mg) oral tablet Dose : 50 mcg = 2 tab(s), Oral, qDay, # 180 tab(s), 1 Refill(s), Pharmacy: [facility] ([facility]), Hypothyroidism in adult, 127.3, cm, 11/27/21 16:15:00 EDT, Height, kg, 11/27/21 16:15:00 EDT, Dosing Weight Start Date: 11/27/21 Stop Date: 05/26/22 Status: Ordered losartan potassium 100 mg oral tablet (19 sources) Angiotensin 2 Receptor Josefina Start: 12-31-2023 End: 06-28-2024 take 1 tablet by mouth once daily Losartan 100 mg tablet Active 100 mg PO daily June 18, 2024 12:00am Start: 06-27-2023 End: 12-24-2023 losartan 100 mg oral tablet Dose : 100 mg = 1 tab(s), Oral, qDay, # 30 tab(s), 0 Refill(s), Pharmacy: [facility], HTN, goal below 140/90, 175.5, cm, 06/27/23 15:11:00 EDT, Height, kg, 06/27/23 15:11:00 EDT, Dosing Weight Start Date: 06/27/23 Status: Ordered Start: 12-13-2022 End: 06-11-2023 losartan 100 mg oral tablet Dose : 100 mg = 1 tab(s), Oral, qDay, # 90 tab(s), 1 Refill(s), Pharmacy: [facility]), HTN, goal below 140/90, 175.5, cm, 12/13/22 15:23:00 EDT, Height, kg, 12/13/22 15:23:00 EDT, Dosing Weight Start Date: 12/13/22 Stop Date: 06/11/23 Status: Ordered Start: 06-04-2022 End: 12-01-2022 losartan 100 mg oral tablet Dose : 100 mg = 1 tab(s), Oral, qDay, # 90 tab(s), 1 Refill(s), Pharmacy: [facility] ([facility] ), HTN, goal below 140/90, 177.8, cm, 06/04/22 16:01:00 EST, Height, kg, 06/04/22 16:01:00 EST, Dosing Weight Start Date: 06/04/22 Stop Date: 12/01/22 Status: Ordered Start: 10-14-2020 End: 05-26-2022 losartan 100 mg oral tablet Dose : 100 mg = 1 tab(s), Oral, qDay, # 90 tab(s), 1 Refill(s), Pharmacy: [facility] ([facility]), HTN, goal below 140/90, 127.3, cm, 11/27/21 16:15:00 EDT, Height, kg, 11/27/21 16:15:00 EDT, Dosing Weight Start Date: 11/27/21 Stop Date: 05/26/22 Status: Ordered metFORMIN hydrochloride 500 mg oral tablet (20 sources) Biguanide Start: 08-17-2024 MetFORMIN (Eqv -Glucophage XR) 500 mg oral tablet, EXTENDED RELEASE Dose : 1,000 mg = 2 tab(s), Oral, BID, # 360 tab(s), 2 Refill(s), Pharmacy: [facility], 177, cm, 07/20/24 14:42:00 EDT, Height, kg, 07/20/24 14:42:00 EDT, Dosing Weight Start Date: 08/17/24 Status: Ordered Medication Dispense Status: Completed Quantity: 360.0 Unit: tab(s) Total Allowed Fills: 3 Fills Dispensed: 0 Start: 07-20-2024 MetFORMIN (Eqv -Glucophage XR) 500 mg oral tablet, EXTENDED RELEASE Dose : 1,000 mg = 2 tab(s), Oral, BID, # 120 tab(s), 0 Refill(s), Pharmacy: [facility], 177, cm, 07/20/24 14:42:00 EDT, Height, kg, 07/20/24 14:42:00 EDT, Dosing Weight Start Date: 07/20/24 Status: Ordered Quantity: 120.0 Unit: tab(s) Repeat number: 1 Start: 06-18-2024 Metformin 500 mg tablet extended release 24 hr Active 1000 mg PO TWICE A DAY June 18, 2024 2:21pm Start: 03-05-2024 metFORMIN (GLU COPHAGE) 1,000 mg tablet 1,000 mg. 03/05/2024 Suspended Start: 06-12-2023 MetFORMIN (Eqv -Glucophage XR) 500 mg oral tablet, EXTENDED RELEASE Dose : 1,000 mg = 2 tab(s), Oral, BID, # 360 tab(s), 2 Refill(s), Pharmacy: [facility], 175.5, cm, 01/17/23 15:20:00 EDT, Height, kg, 01/17/23 15:20:00 EDT, Dosing Weight Start Date: 06/12/23 Status: Ordered Quantity: 360.0 Unit: tab(s) Repeat number: 3 Start: 12-04-2022 MetFORMIN (Eqv -Glucophage XR) 500 mg oral tablet, EXTENDED RELEASE Dose : 1,000 mg = 2 tab(s), Oral, BID, # 360 tab(s), 2 Refill(s), [facility]), 175.5, cm, 10/29/22 7:42:00 EDT, Height, kg, 10/29/22 7:42:00 EDT, Dosing Weight Start Date: 12/04/22 Status: Ordered Start: 05-14-2022 MetFORMIN (Eqv -Glucophage XR) 500 mg oral tablet, EXTENDED RELEASE Dose : 1,000 mg = 2 tab(s), Oral, BID, # 360 tab(s), 2 Refill(s), Pharmacy: [facility] ([facility] 127.3, cm, 02/15/22 15:53:00 EST, Height, kg, 02/15/22 15:53:00 EST, Dosing Weight Start Date: 05/14/22 Status: Ordered Start: 10-31-2021 End: 06-18-2024 take 1 tablet by mouth every twenty-four hours Metformin 500 mg tablet extended release 24 hr Discontinued 500 mg PO October 31, 2021 12:00am June 18, 2024 2:22pm Start: 06-16-2021 MetFORMIN (Eqv -Glucophage XR) 500 mg oral tablet, EXTENDED RELEASE Dose : 1,000 mg = 2 tab(s), Oral, BID, # 360 tab(s), 2 Refill(s), [facility], 177.8, cm, 05/25/21 14:56:00 EST, Height, kg, 05/25/21 14:56:00 EST, Dosing Weight Start Date: 06/16/21 Status: Ordered Start: 07-11-2020 End: 04-07-2021 MetFORMIN (Eqv-Glucophage XR ) 500 mg oral tablet, EXTENDED RELEASE Dose : 1,000 mg = 2 tab(s), Oral, BID, X 90 day(s), # 360 tab(s), 2 Refill(s), 04/07/21 17:12:00 EST, Pharmacy: [facility], DM type 2, goal HbA1c Start Date: 07/11/20 Stop Date: 04/07/21 Status: Ordered 24 hr metoprolol succinate 25 mg extended release oral tablet (20 sources) beta-Adrenergic Josefina Start: 08-17-2024 metopr olol succinate 25 mg oral TABLET extended release Dose : 25 mg = 1 tab(s), Oral, qDay, Do not crush or chew (controlled release), # 90 tab(s), 2 Refill(s), Pharmacy: [facility], HTN, goal below 140/90, 177, cm, 07/20/24 14:42:00 EDT, Height, kg, 07/20/24 14:42:00 EDT, Dosing Weight Start Date: 08/17/24 Status: Ordered Medication Dispense Status: Completed Quantity: 90.0 Unit: tab(s) Total Allowed Fills: 3 Fills Dispensed: 0 Indications: Essential (primary) hypertension; Start: 07-20-2024 metoprolol suc cinate 25 mg oral TABLET extended release Dose : 25 mg = 1 tab(s), Oral, qDay, Do not crush or chew (controlled release), # 30 tab(s), 0 Refill(s), Pharmacy: [facility], HTN, goal below 140/90, 177, cm, 07/20/24 14:42:00 EDT, Height, kg, 07/20/24 14:42:00 EDT, Dosing Weight Start Date: 07/20/24 Status: Ordered Quantity: 30.0 Unit: tab(s) Repeat number: 1 Indications: Essential (primary) hypertension; Start: 07-20-2024 metoprolol suc cinate ER (TOPROL XL) 25 mg 24 hr tablet 25 mg. 07/20/2024 Suspended Start: 06-18-2024 take 1 tablet by jayson once daily Metoprolol Tartrate 25 mg tablet Active 25 mg PO daily June 18, 2024 12:00am Start: 03-26-2024 End: 03-26-2024 Lopressor Start: 03/26/24 8: 00:00 AM EST, Dose = 25 mg, = 1 tab(s), PEG, 03/18/24 14:32:00 EST Start Date: 03/26/24 Stop Date: 03/26/24 Status: Completed Repeat number: 1 Start: 03-25-2024 End: 03-25-2024 Lopressor Start: 03/25/24 5: 00:00 PM EST, Dose = 25 mg, = 1 tab(s), PEG, 03/18/24 14:32:00 EST Start Date: 03/25/24 Stop Date: 03/25/24 Status: Completed Repeat number: 1 Start: 03-25-2024 End: 03-25-2024 Lopressor Start: 03/25/24 8: 00:00 AM EST, Dose = 25 mg, = 1 tab(s), PEG, 03/18/24 14:32:00 EST Start Date: 03/25/24 Stop Date: 03/25/24 Status: Completed Repeat number: 1 Start: 02-06-2024 End: 02-06-2024 metoprolol tartrate (Lopress or) Start: 02/06/24 8:00:00 AM EST, Dose = 25 mg, = 1 tab(s), Nasogastric, 01/31/24 16:00:00 EDT Start Date: 02/06/24 Stop Date: 02/06/24 Status: Completed Start: 02-06-2024 End: 02-06-2024 metoprolol tartrate (Lopress or) Start: 02/06/24 12:00:00 AM EST, Dose = 25 mg, = 1 tab(s), Nasogastric, 01/31/24 16:00:00 EDT Start Date: 02/06/24 Stop Date: 02/06/24 Status: Completed Start: 02-05-2024 End: 02-05-2024 metoprolol tartrate (Lopress or) Start: 02/05/24 4:00:00 PM EST, Dose = 25 mg, = 1 tab(s), Nasogastric, 01/31/24 16:00:00 EDT Start Date: 02/05/24 Stop Date: 02/05/24 Status: Completed Start: 01-21-2024 End: 01-21-2024 take 0.5 tablet by mouth in the morning metoprolol succinate 25 mg oral TABLET extended release Start: 01/21/24 8:00:00 AM EDT, Dose = 25 mg, = 0.5 tab(s), Oral, Hold if SBP (mmHg) Start Date: 01/21/24 Stop Date: 01/21/24 Status: Completed Start: 12-31-2023 End: 06-28-2024 metoprolol succinate 25 mg o ral TABLET extended release Dose : 25 mg = 1 tab(s), Oral, qDay, Do not crush or chew (controlled release), # 90 tab(s), 1 Refill(s), Pharmacy: [facility], HTN, goal below 140/90, 173.5, cm, 12/31/23 15:16:00 EDT, Height, kg, 12/31/23 15:16:00 EDT, Dosing Weight Start Date: 12/31/23 Stop Date: 06/28/24 Status: Ordered Quantity: 90.0 Unit: tab(s) Repeat number: 2 Indication: Essential (primary) hypertension Start: 06-27-2023 End: 12-24-2023 metoprolol succinate 25 mg o ral TABLET extended release Dose : 25 mg = 1 tab(s), Oral, qDay, Do not crush or chew (controlled release), # 30 tab(s), 0 Refill(s), Pharmacy: [facility], HTN, goal below 140/90, 175.5, cm, 06/27/23 15:11:00 EDT, Height, kg, 06/27/23 15:11:00 EDT, Dosing Weight Start Date: 06/27/23 Status: Ordered Start: 12-13-2022 End: 06-11-2023 metoprolol succinate 25 mg o ral TABLET extended release Dose : 25 mg = 1 tab(s), Oral, qDay, Do not crush or chew (controlled release), # 90 tab(s), 1 Refill(s), Pharmacy: [facility] ([facility]), HTN, goal below 140/90, 175.5, cm, 12/13/22 15:23:00 EDT, Height, kg, 12/13/22 15:23:00 EDT, Dosing Weight Start Date: 12/13/22 Stop Date: 06/11/23 Status: Ordered Start: 06-04-2022 End: 12-01-2022 metoprolol succinate 25 mg o ral TABLET extended release Dose : 25 mg = 1 tab(s), Oral, qDay, Do not crush or chew (controlled release), # 90 tab(s), 1 Refill(s), Pharmacy: [facility] ([facility] ), HTN, goal below 140/90, 177.8, cm, 06/04/22 16:01:00 EST, Height, kg, 06/04/22 16:01:00 EST, Dosing Weight Start Date: 06/04/22 Stop Date: 12/01/22 Status: Ordered Start: 11-27-2021 End: 05-26-2022 metoprolol succinate 25 mg o ral TABLET extended release Dose : 25 mg = 1 tab(s), Oral, qDay, Do not crush or chew (controlled release), # 90 tab(s), 1 Refill(s), Pharmacy: [facility] ([facility]), HTN, goal below 140/90, 127.3, cm, 11/27/21 16:15:00 EDT, Height, kg, 11/27/21 16:15:00 ED... Start Date: 11/27/21 Stop Date: 05/26/22 Status: Ordered Start: 10-14-2020 End: 07-11-2021 metoprolol succinate 25 mg o ral TABLET extended release Dose : 25 mg = 1 tab(s), Oral, qDay, Do not crush or chew (controlled release), # 90 tab(s), 2 Refill(s), Pharmacy: [facility], HTN, goal below 140/90, 175, cm, 10/14/20 15:44:00 EDT, Height, kg, 10/14/20 15:44:00 EDT, Dosing Weight Start Date: 10/14/20 Stop Date: 07/11/21 Status: Ordered Start: 10-14-2020 End: 07-11-2021 metoprolol succinate 25 mg o ral TABLET extended release Dose : 25 mg = 1 tab(s), Oral, qDay, Do not crush or chew (controlled release), # 90 tab(s), 2 Refill(s), Pharmacy: [facility], HTN, goal below 140/90, 175, cm, 10/14/20 15:44:00 EDT, Height, kg, 10/14/20 15:44:00 EDT, Dosing Weight Start Date: 10/14/20 Stop Date: 07/11/21 Status: Ordered Milk of Magnesia (1 source) Start: 03-18-2024 Milk of Magnesia 30, PEG, qDay, PRN as needed for constipation, 0 Refill(s) Start Date: 03/18/24 Status: Ordered Repeat number: 1 nystatin [id number] unt/ml oral suspension (1 source) Polyene Antifungal Start: 03-21-2024 End: 04-04-2024 take 1 dose by mouth every six hours nystatin 100,000 units/mL oral suspension Dose : 500,000 unit(s) = 5 mL, Swish & Swallow, q6h, X 14 day(s), # 280 mL, 0 Refill(s), 04/04/24 12:29:00 PM EST Start Date: 03/21/24 Stop Date: 04/04/24 Status: Ordered Quantity: 280.0 Unit: mL Repeat number: 1 Sodium Phosphate, Dibasic / Sodium Phosphate, Monobasic (1 source) Start: 03-18-2024 take 1 dose rectal route once daily as needed for constipation Fleet Enema Dose = 133 mL, Rectal, qDay, PRN as needed for constipation, 0 Refill(s) Start Date: 03/18/24 Status: Ordered Repeat number: 1 Vitamin C 500 mg oral tablet (1 source) Start: 03-18-2024 Vitamin C 500 mg oral tablet Dose : 500 mg = 1 tab(s), PEG, qDay, # 30 tab(s), 0 Refill(s) Start Date: 03/18/24 Status: Ordered Quantity: 30.0 Unit: tab(s) Repeat number: 1 Vitamin D with Minerals oral tablet (14 sources) Start: 09-29-2018 take 1 tablet by mouth once daily Vitamin D with Minerals oral tablet Dose = 1 tab(s), Oral, qDay, # 30 tab(s), 0 Refill(s) Start Date: 09/29/18 Status: Ordered Quantity: 30.0 Unit: tab(s) Repeat number: 1 Start: 09-29-2018 take 1 tablet by jayson once daily Vitamin D with Minerals oral tablet Dose = 1 tab(s), Oral, qDay, # 30 tab(s), 0 Refill(s) Start Date: 09/29/18 Status: Ordered Completed/Discontinued Medications Medication Drug Class(es) Dates Sig (Normalized) Sig (Original) amLODIPine 5 mg oral tablet (18 sources) Dihydropyridine Calcium Channel Josefina Start: 08-01-2023 take 1 tablet by mouth once daily amLODIPine (NORVASC) 5 mg tablet Take 5 mg by mouth once daily. 08/01/2023 Suspended Start: 10-14-2020 End: 05-26-2022 amLODIPine 10 mg oral tablet Dose : 10 mg = 1 tab(s), Oral, qDay, X 90 day(s), # 90 tab(s), 1 Refill(s), 05/26/22 18:31:00 EST, Pharmacy: [facility] ([facility]), HTN, goal below 140/90, 127.3, cm, 11/27/21 16:15:00 EDT, Height, kg, 11/27/21 16:15:00 EDT, Dosi... Start Date: 11/27/21 Stop Date: 05/26/22 Status: Ordered atorvastatin 20 mg oral tablet (20 sources) HMG-CoA Reductase Inhibitor Start: 12-31-2023 End: 06-28-2024 atorvastatin (LIPITOR) 20 mg tablet 20 mg. 03/05/2024 Suspended Start: 06-27-2023 End: 12-24-2023 atorvastatin 20 mg oral tabl et Dose : 20 mg = 1 tab(s), Oral, qDay, # 90 tab(s), 1 Refill(s), Pharmacy: [facility], Hyperlipidemia LDL goal Start Date: 06/27/23 Stop Date: 12/24/23 Status: Ordered Start: 12-13-2022 End: 06-11-2023 atorvastatin 20 mg oral tabl et Dose : 20 mg = 1 tab(s), Oral, qDay, # 90 tab(s), 1 Refill(s), Pharmacy: [facility] ([facility]), Hyperlipidemia LDL goal Start Date: 12/13/22 Stop Date: 06/11/23 Status: Ordered Start: 06-04-2022 End: 12-01-2022 atorvastatin 20 mg oral tabl et Dose : 20 mg = 1 tab(s), Oral, qDay, # 90 tab(s), 1 Refill(s), Pharmacy: [facility] ([facility] ), Hyperlipidemia LDL goal Start Date: 06/04/22 Stop Date: 12/01/22 Status: Suspended Start: 10-14-2020 End: 05-26-2022 atorvastatin 20 mg oral tabl et Dose : 20 mg = 1 tab(s), Oral, qDay, # 90 tab(s), 1 Refill(s), Pharmacy: [facility] ([facility]), Hyperlipidemia LDL goal Start Date: 11/27/21 Stop Date: 05/26/22 Status: Ordered HumaLOG Mix 75/25 KwikPen 3 mL PEN (3 sources) Start: 09-27-2020 HumaLOG Mix 75 /25 KwikPen 3 mL PEN See Instructions, INJECT 45 UNITS ONCE BEFORE DINNER, # 60 mL, 3 Refill(s), other reason (Rx), Dosing Weight Start Date: 09/27/20 Status: Ordered Insulin Glargine (Lantus U-100 Insulin) 100 unit/mL solution (4 sources) Start: 06-18-2024 End: 07-16-2024 Insulin Glargine (Lantus U-100 Insulin) 100 unit/mL solution Discontinued 10 U SC EVERY MORNING June 18, 2024 12:00am July 16, 2024 9:50am lisinopril 20 mg oral tablet (5 sources) Angiotensin Converting Enzyme Inhibitor Start: 10-31-2021 End: 06-18-2024 take 1 tablet by mouth once daily Lisinopril 20 mg tablet Discontinued 20 mg PO DAILY October 31, 2021 12:00am June 18, 2024 2:22pm semaglutide (OZEMPIC) 1 mg/dose (4 mg/3 mL) pen (5 sources) Start: 01-06-2024 semaglutide (OZEMPIC) 1 mg/dose (4 mg/3 mL) pen 1 mg. 01/06/2024 Suspended Start: 01-06-2024 semaglutide (O ZEMPIC) 1 mg/dose (4 mg/3 mL) pen 1 mg. 01/06/2024 Active Stress with Zinc (1 source) Start: 03-18-2024 End: 03-26-2024 Stress with Zinc Dose = 1 ta b(s), PEG, qDay, 0 Refill(s) Start Date: 03/18/24 Stop Date: 03/26/24 Status: Ordered Repeat number: 1 Problems Active Problems Problem Classification Problem Date Documented Da te Episodic/Chronic Abdominal hernia (20 sources) Hernia of anterior abdominal wall; Translations: [Umbilical hernia] Onset: 09-05-2020 Episodic Abdominal pain (2 sources) Unspecified abdominal pain; Translations: [Unspecified abdominal pain] Onset: 4 Episodic Acute and unspecified renal failure (3 sources) Acute renal failure syndrome; Translations: [Acute kidney failure, unspecified] Onset: 4 Episodic Alcohol-related disorders (3 sources) Current drinker; Translations: [Alcohol use] Onset: 5 11-24-2024 Chronic Anxiety disorders (6 sources) Anxiety disorder; Translations: [Anxiety disorder, unspecified] Onset: 4 Chronic Biliary tract disease (1 source) Perforation of gallbladder; Translations: [Perforation of gallbladder] Episodic Cancer of prostate (1 source) Malignant neoplasm of prostate; Translations: [Malignant neoplasm of prostate] Chronic Cardiac dysrhythmias (1 source) Unspecified atrial fibrillation; Translations: [Unspecified atrial fibrillation] Chronic Coagulation and hemorrhagic disorders (1 source) Acquired thrombocytopenia; Translations: [Other secondary thrombocytopenia] Episodic Complications of surgical procedures or medical care (20 sources) Postprocedural septic shock; Translations: [Postprocedural septic shock, initial encounter] Onset: 5 Episodic Comment on above: Abdomen Deficiency and other anemia (2 sources) Iron deficiency anemia secondary to blood loss (chronic); Translations: [Iron deficiency anemia secondary to blood loss (chronic)] Onset: 5 Chronic Deficiency and other anemia (1 source) Anemia, unspecified; Translations: [Anemia, unspecified type] Onset: 5 Episodic Diabetes mellitus with complications (12 sources) Hyperosmolar non-ketotic state due to type 2 diabetes mellitus; Translations: [Type 2 diabetes mellitus with hyperosmolarity without nonketotic hyperglycemic-hyperosm olar coma ([facility])] Onset: 5 Chronic Diabetes mellitus without complication (20 sources) Type 2 diabetes mellitus; Translations: [Diabetes mellitus] Onset: 4 10-08-2019 Chronic Diabetes mellitus without complication (2 sources) Impaired fasting glycemia; Translations: [Impaired fasting glucose] Onset: 5 11-24-2024 Episodic Disorders of lipid metabolism (20 sources) Hyperlipidemia; Translations: [Hyperlipidemia, unspecified] Onset: 4 04-03-2019 Chronic E Codes: Adverse effects of medical drugs (5 sources) Adverse reaction to drug; Translations: [Adverse effect of unspecified drugs, medicaments and biological substances, initial encounter] 10-31-2021 Episodic Essential hypertension (20 sources) Hypertensive disorder; Translations: [Essential (primary) hypertension] Onset: 4 04-03-2019 Chronic Fluid and electrolyte disorders (4 sources) Acidosis; Translations: [Acidosis, unspecified] Onset: 4 Episodic Heart valve disorders (4 sources) Heart murmur; Translations: [Cardiac murmur, unspecified] Onset: 5 11-24-2024 Episodic Immunizations and screening for infectious disease (5 sources) Contact with and (suspected) exposure to other viral communicable diseases; Translations: [Contact with or suspected exposure to other viral communicable disease] 10-31-2021 Episodic Mood disorders (6 sources) Depressive disorder; Translations: [Depression, unspecified] Onset: 4 Chronic Mycoses (2 sources) Candidiasis of mouth; Translations: [Candidal stomatitis] Onset: 4 Episodic Nutritional deficiencies (19 sources) Vitamin D deficiency; Translations: [Vitamin D deficiency, unspecified] Onset: 5 04-03-2019 Chronic Open wounds of extremities (14 sources) Laceration of hand; Translations: [Laceration without foreign body of right hand, initial encounter] 10-13-2022 Episodic Other aftercare (2 sources) Post-discharge follow-up 07-20-2024 Episodic Other aftercare (4 sources) Wound finding; Translations: [Encounter for other specified aftercare] 10-24-2022 Episodic Other aftercare (2 sources) 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; Translations: [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] Onset: 5 Episodic Other gastrointestinal disorders (6 sources) Patient encounter status; Translations: [Encounter for attention to gastrostomy] 06-18-2024 Chronic Comment on above: removal Other gastrointestinal disorders (3 sources) Gastrostomy present; Translations: [Gastrostomy status] Onset: 4 11-24-2024 Chronic Other gastrointestinal disorders (1 source) Gastrostomy status; 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)] Onset: 5 Chronic Other gastrointestinal disorders (19 sources) H/O: abdominal hernia; Translations: [Personal history of other diseases of the digestive system] Onset: 5 09-05-2020 Episodic Other gastrointestinal disorders (1 source) Disorder of peritoneum; Translations: [Other specified disorders of peritoneum] Episodic Other gastrointestinal disorders (1 source) Dysphagia; Translations: [Dysphagia, unspecified] Onset: 4 Episodic Other gastrointestinal disorders (2 sources) Perforation of intestine 07-20-2024 Episodic Other injuries and conditions due to external causes (1 source) Traumatic AND/OR non-traumatic injury; Translations: [Other injury of unspecified body region, initial encounter] Onset: 4 Episodic Other non-epithelial cancer of skin (20 sources) History of malignant basal cell neoplasm of skin; Translations: [Basal cell carcinoma of nose] Onset: 5 2020 Episodic Other non-traumatic joint disorders (1 source) Pain of left shoulder joint; Translations: [Pain in left shoulder] Episodic Other non-traumatic joint disorders (1 source) Decreased range of shoulder movement 10-16-2024 Episodic Other non-traumatic joint disorders (1 source) Pain in left shoulder; Translations: [Pain in left shoulder] Onset: 5 Episodic Other nutritional; endocrine; and metabolic disorders (2 sources) Morbid obesity; Translations: [Morbid (severe) obesity due to excess calories] Onset: 4 Chronic Other nutritional; endocrine; and metabolic disorders (1 source) Obese class II; Translations: [Obesity, Class II, BMI 35-39.9] Onset: 5 12-02-2024 Chronic Other screening for suspected conditions (not mental disorders or infectious disease) (5 sources) Electrocardiogram abnormal; Translations: [Abnormal electrocardiogram [ECG] [EKG]] Onset: 5 Episodic Other skin disorders (7 sources) Abnormal granulation tissue; Translations: [Granulomatous disorder of the skin and subcutaneous tissue, unspecified] 07-08-2024 Episodic Other skin disorders (2 sources) Granulomatous disorder of the skin and subcutaneous tissue, unspecified; Translations: [Granulomatous disorder of the skin and subcutaneous tissue, unspecified] Onset: 5 Episodic Other upper respiratory disease (1 source) Finding of stoma device; Translations: [Encounter for attention to tracheostomy] Onset: 4 Chronic Other upper respiratory disease (1 source) Tracheostomy present; Translations: [Tracheostomy status] Onset: 4 Chronic Peritonitis and intestinal abscess (1 source) Peritonitis; Translations: [Peritonitis, unspecified] Episodic Pleurisy; pneumothorax; pulmonary collapse (3 sources) Atelectasis; Translations: [Atelectasis] Episodic Pneumonia (except that caused by tuberculosis or sexually transmitted disease) (1 source) Pneumonia due to Klebsiella pneumoniae; Translations: [Pneumonia due to Klebsiella pneumoniae] Episodic Residual codes; unclassified (1 source) Sleep apnea; Translations: [Sleep apnea, unspecified] Onset: 4 Chronic Residual codes; unclassified (7 sources) Obstructive sleep apnea syndrome; Translations: [Obstructive sleep apnea (adult) (pediatric)] Onset: 5 Chronic Residual codes; unclassified (4 sources) Obstructive sleep apnea (adult) (pediatric); Translations: [Obstructive sleep apnea (adult) (pediatric)] Onset: 5 Chronic Residual codes; unclassified (20 sources) Increased body mass index 2020 Episodic Residual codes; unclassified (1 source) Current drinker; Translations: [Alcohol use, unspecified, in remission] Episodic Residual codes; unclassified (1 source) History of hernia repair; Translations: [Other specified postprocedural states] Onset: 5 12-02-2024 Episodic Residual codes; unclassified (1 source) Other specified postprocedural states; Translations: [History of tracheostomy] Onset: 5 Episodic Respiratory failure; insufficiency; arrest (adult) (1 source) [id number] respiratory failure; Translations: [Acute and chronic respiratory failure with hypoxia] Chronic Respiratory failure; insufficiency; arrest (adult) (2 sources) Acute respiratory failure; Translations: [Acute respiratory failure with hypoxia] Onset: 4 Episodic Septicemia (except in labor) (1 source) Sepsis without septic shock; Translations: [Severe sepsis without septic shock] Episodic Shock (1 source) Septic shock; Translations: [Severe sepsis with septic shock] Episodic Skin and subcutaneous tissue infections (3 sources) Abscess of abdominal wall; Translations: [Cutaneous abscess of abdominal wall] Onset: 4 Episodic Thyroid disorders (20 sources) Hypothyroidism; Translations: [Hypothyroidism, unspecified] Onset: 4 09-29-2018 Chronic Unclassified (17 sources) History of SARS-CoV-2; Translations: [Personal history of COVID-19] 07-11-2020 Unclassified (20 sources) Patient encounter status 04-03-2019 Unclassified (12 sources) Non-smoker 11-27-2021 Unclassified (1 source) Vaccination needed 03-09-2022 Unclassified (2 sources) Non-healing surgical wound 07-20-2024 Unclassified (2 sources) Open wound of abdomen 05-29-2024 Unclassified (3 sources) T81.89XA - Other complications of procedures, not elsewhere classified, initial encounter Unclassified (2 sources) Preprocedural examination done 09-11-2024 Unclassified (3 sources) Autogenerated Problem Onset: 5 11-08-2024 Unclassified (1 source) Pain of left shoulder region 10-16-2024 Unclassified (1 source) Alcohol use; Translations: [Alcohol use] Onset: 5 Past or Other Problems Problem Classification Problem Date Documented Da te Episodic/Chronic Deficiency and other anemia (5 sources) Anemia; Translations: [Anemia, unspecified] Onset: 4 Episodic Esophageal disorders (3 sources) Gastroesophageal reflux disease without esophagitis; Translations: [Gastro-esophageal reflux disease without esophagitis] Onset: 4 Resolved: 5 11-14-2024 Chronic Other gastrointestinal disorders (3 sources) Oropharyngeal dysphagia; Translations: [Dysphagia, oropharyngeal phase] Onset: 4 11-14-2024 Episodic Results Test Name Value Interpretation Reference Range Facility [facility] 12-05-2024 [facility] HNO ID: [id number] Author: AUGIE PERSAUD MD Service: General Surgery Author Type: Resident Type: Discharge Summary Filed: 12/07/2024 10:51 Note Text: -------- Attestation signed by Augie Persaud MD at 12/07/2024 10:51 AM I have seen and evaluated the patient and discussed the case with my residents and physician extenders. I agree with the assessment and plan as documented in this note. -------- GENERAL SURGERY DISCHARGE SUMMARY PATIENT NAME: Corinne Correa ADMISSION DATE: 12/01/2024 DISCHARGE DATE: 12/05/2024 ATTENDING PHYSICIAN: Augie Persaud MD Code Status: Not on file Highest Readmission Risk Score: 12 The 30 day readmissions risk score is derived from an internally validated risk model which evaluates patient level characteristics, utilization history, medication orders and lab results up until the day of discharge. Patients with a score of 39 or above are considered highest risk for readmission. Specific patient level drivers will be listed at the bottom of the summary. REASON FOR HOSPITALIZATION: Surgery and recovery OPERATIONS DURING HOSPITALIZATION: 1. Open right myofascial advancement flap. 2. Open left myofascial advancement flap. 3. Repair of recurrent incarcerated incisional hernia. 4. Implantation of 30x30 cm of Prolene mesh. 5. Resection of skin and subcutaneous tissue PROCEDURES DURING HOSPITALIZATION: IV access Intubation for surgery Anesthesia administration KUB/CXR HOSPITAL COURSE: Corinne Correa is a 74-year-old male with a PMHx of HLD, HTN, ALICIA on CPAP, T2DM, hypothyroidism, anemia, MDD, heart murmur and alcohol use who presented on 12/01/2024 for a ventral hernia repair with Dr. Persaud. See operative report for details. He recovered in the PACU and transferred to the [facility] for the remainder of his postoperative care. He was started on IV pain medications and a CLD. His hospital course is as follows: 12/02 - POD 1 - Diet downgraded to NPO for nausea. Delacruz kept. Started on SQH TID for DVT ppx. 12/03- Advanced to clears due to nausea resolving. AJ noted on labs - delacruz kept, additional IVF given. C/o Shortness of Breath in afternoon, CXR unremarkable. 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 Given 20mg IVP lasix. Delacruz discontinued. 12/05- Discharge in stable condition Active Hospital Problems Diagnosis POA Hernia Yes AJ (acute kidney injury) No S/P repair of ventral hernia No Obesity, Class II, BMI 35-39.9 Yes Heart murmur Yes Alcohol use Yes ALICIA on CPAP Yes Major depression, single episode Yes Essential hypertension Yes Hyperlipidemia Yes Hypothyroidism Yes Type 2 diabetes mellitus (HCC) Yes Resolved Hospital Problems No resolved problems to display. Transitions of Care Critical Issues: Woud care LABS AND PROCEDURES PENDING AT DISCHARGE: No pending results. CONSULTING TEAMS DURING HOSPITALIZATION: None Treatment Team: Attending Provider: Augie Persaud MD Primary Service: LEO RAMOS Consulting: LEO RAMOS PATIENT CONDITION AT DISCHARGE: Stable DISCHARGE DISPOSITION: Home with PT/OT INFORMATION PROVIDED TO PATIENT: DCI DIET: Soft Foods ACTIVITY: Lifting is restricted to: less than 10 lbs for 4-6 weeks May bathe and shower No walking restrictions No driving while on narcotics May use stairs WOUND/SURGICAL SITE CARE: Leave open to air ALLERGIES No Known Allergies DISCHARGE MEDICATION: Medication List START taking these medications methocarbamol 500 mg tablet Commonly known as: ROBAXIN Take 1 tablet by mouth four times daily for 10 days. * oxyCODONE IR 5 mg immediate release tablet Commonly known as: ROXICODONE Take 1 tablet by mouth every 8 hours as needed for pain for up to 3 days. Acute pain * This list has 1 medication(s) that are the same as other medications prescribed for you. Read the directions carefully, and ask your doctor or other care provider to review them with you. CONTINUE taking these medications amLODIPine 5 mg tablet Commonly known as: NORVASC atorvastatin 20 mg tablet Commonly known as: LIPITOR levothyroxine 25 mcg tablet Commonly known as: SYNTHROID metFORMIN 1,000 mg tablet Commonly known as: GLUCOPHAGE metoprolol succinate ER 25 mg 24 hr tablet Commonly known as: TOPROL XL metoprolol tartrate (short acting) 25 mg tablet Commonly known as: LOPRESSOR OZEMPIC 1 mg/dose (4 mg/3 mL) pen Generic drug: semaglutide ASK your doctor about these medications * oxyCODONE IR 5 mg immediate release tablet Commonly known as: ROXICODONE Take 1 tablet by mouth every 8 hours as needed for pain for up to 3 days. Acute pain Ask about: Should I take this medication? * This list has 1 medication(s) that are the same as other medications prescribed for you. Read the directions carefully, and ask you (more content not included)... Normal [facility] Basic metabolic 2000 panelon 12-04-2024 Anion gap [Moles/Vol] 11 mmol/L Normal 8-15 [facility] Comment on above: Order Comment: Speci men Type: BLOOD SPECIMEN Ordering Facility: [facility] Address: [address] [place] [address] Performed By: #### 1 9123-9, 2777-, 58594-2 #### [facility] CLIA [id number] [address] [place] [address] [place] Calcium [Mass/Vol] 8.0 mg/dL Low 8.5-10.[address] [facility] Comment on above: Order Comment: Speci men Type: BLOOD SPECIMEN Ordering Facility: [facility] Address: [address] [place] [address] Performed By: #### 1 9123-9, 2777-, 77422-5 #### [facility] CLIA [id number] [address] [place] [address] [place] Chloride [Moles/Vol] 105 mmol/L Normal 98-107 [facility] Comment on above: Order Comment: Speci men Type: BLOOD SPECIMEN Ordering Facility: [facility] Address: [address] [place], [place] [address] Performed By: #### 1 9123-9, 2777-, 32861-7 #### [facility] CLIA [id number] [address] [place], [place] [address] [place] CO2 [Moles/Vol] 21 mmol/L Low 22-[address] [facility] Comment on above: Order Comment: Speci men Type: BLOOD SPECIMEN Ordering Facility: [facility] Address: [address] [place] [address] Performed By: #### 1 9123-9, 2777-1, 85995-5 #### [facility] CLIA [id number] [address] [place], [place] [address] [place] Creatinine [Mass/Vol] 1.22 mg/dL Normal 0.73-1.22 [facility] Comment on above: Order Comment: Speci men Type: BLOOD SPECIMEN Ordering Facility: [facility] Address: [address] [place] [address] Performed By: #### 1 9123-9, 2777-1, 15996-3 #### [facility] CLIA [id number] [address] [place] [address] [place] eGFRcr SerPlBld CKD-EPI 2020 63 mL/min/1.73m??? Normal >=[address] [facility] Comment on above: Order Comment: Speci men Type: BLOOD SPECIMEN Ordering Facility: [facility] Address: [address] [place] [address] Result Comment: Madeline mated Glomerular Filtration Rate (eGFR) is calculated using the 2020 CKD-EPI creatinine equation. This equation utilizes serum creatinine, sex, and age as parameters. The creatinine assay has traceable calibration to isotope dilution-mass spectrometry. Refer to KDIGO guidelines for clinical interpretation. In patients with unstable renal function, e.g. those with acute kidney injury, the eGFR may not accurately reflect actual GFR. Performed By: #### 1 9123-9, 2777-, 80036-8 #### [facility] CLIA [id number] [address] [place], [place] [address] [place] Glucose [Mass/Vol] 250 mg/dL High 74-[address] [facility] Comment on above: Order Comment: Speci men Type: BLOOD SPECIMEN Ordering Facility: [facility] Address: [address] [place] [address] Result Comment: The [place] [employer] (ADA) provides guidance for cutoff values for fasting glucose and random glucose. The ADA defines fasting as no caloric intake for at least 8 hours. Fasting plasma glucose results between 100 to 125 mg/dL indicate increased risk for diabetes (prediabetes). Fasting plasma glucose results greater than or equal to 126 mg/dL meet the criteria for diagnosis of diabetes. In the absence of unequivocal hyperglycemia, results should be confirmed by repeat testing. In a patient with classic symptoms of hyperglycemia or hyperglycemic crisis, random plasma glucose results greater than or equal to 200 mg/dL meet the criteria for diagnosis of diabetes. Reference: Standards of Medical Care in Diabetes 2016, [place] [employer]. Diabetes Care. 2016.39(Suppl 1). Performed By: #### 1 9123-9, 2777-1, 89616-8 #### [facility] CLIA [id number] [address] [place] [address] [place] Potassium [Moles/Vol] 4.3 mmol/L Normal 3.7-5.1 [facility] Comment on above: Order Comment: Speci men Type: BLOOD SPECIMEN Ordering Facility: [facility] Address: [address] [place] [address] Performed By: #### 1 9123-9, 2777, 33416-7 #### [facility] CLIA [id number] [address] [place] [address] [place] Sodium [Moles/Vol] 137 mmol/L Normal 136-[address] [facility] Comment on above: Order Comment: Speci men Type: BLOOD SPECIMEN Ordering Facility: [facility] Address: [address] [place] [address] Performed By: #### 1 9123-9, 2777-, 90840-3 #### [facility] CLIA [id number] [address] [place] [address] [place] Urea nitrogen [Mass/Vol] 29 mg/dL High 9-[address] [facility] Comment on above: Order Comment: Speci men Type: BLOOD SPECIMEN Ordering Facility: [facility] Address: [address] [place] [address] Performed By: #### 1 9123-9, 2777-, 42007-4 #### [facility] CLIA [id number] [address] [place] [address] [place] CBC panel Auto (Bld)on 12-04 Erythrocyte distribution width (RBC) [Ratio] 14.5 % Normal 11.5-15.[address] [facility] Comment on above: Order Comment: Speci men Type: BLOOD SPECIMENOrdering Facility: [facility] Address: [address] [place] [address] Performed By: #### 5 8410-2 ####[facility] [id number] [place] [address] [place] Hematocrit (Bld) [Volume fraction] 30.8 % Low 39.0-51.[address] [facility] Comment on above: Order Comment: Speci men Type: BLOOD SPECIMENOrdering Facility: [facility] Address: [address] [place] [address] Performed By: #### 5 8410-2 ####[facility] [id number] [place] [address] [place] Hemoglobin (Bld) [Mass/Vol] 9.5 g/dL Low 13.0-17.[address] [facility] Comment on above: Order Comment: Speci men Type: BLOOD SPECIMENOrdering Facility: [facility] Address: [address] [place] [address] Performed By: #### 5 8410-2 ####[facility] [id number] [place] [id number] [place] MCH (RBC) [Entitic mass] 28.9 pg Normal 26.0-34.[address] [facility] Comment on above: Order Comment: Speci men Type: BLOOD SPECIMENOrdering Facility: [facility] Address: [address] [place] [address] Performed By: #### 5 8410-2 ####[facility] [id number] [place] [address] [place] MCHC (RBC) [Mass/Vol] 30.8 g/dL Normal 30.5-36.0 [facility] Comment on above: Order Comment: Speci men Type: BLOOD SPECIMENOrdering Facility: [facility] Address: [address] [place] [address] Performed By: #### 5 8410-2 ####[facility] [id number] [place] [address] [place] MCV (RBC) [Entitic vol] 93.6 fL Normal 80.0-100.0 [facility] Comment on above: Order Comment: Speci men Type: BLOOD SPECIMENOrdering Facility: [facility] Address: [address] [place] [address] Performed By: #### 5 8410-2 ####[facility] [id number] [place] [address] [place] Nucleated RBC (Bld) [#/Vol] 10*3/uL Normal <0.[address] [facility] Comment on above: Order Comment: Speci men Type: BLOOD SPECIMENOrdering Facility: [facility] Address: [address] [place] [address] Performed By: #### 5 8410-2 ####[facility] [id number] [place] [address] [place] Platelet mean volume (Bld) [Entitic vol] 10.7 fL Normal 9.0-12.[address] [facility] Comment on above: Order Comment: Speci men Type: BLOOD SPECIMENOrdering Facility: [facility] Address: [address] [place] [address] Performed By: #### 5 8410-2 ####[facility] [id number] [place] [address] [place] Platelets (Bld) [#/Vol] 233 10*3/uL Normal 150-[address] [facility] Comment on above: Order Comment: Speci men Type: BLOOD SPECIMENOrdering Facility: [facility] Address: [address] [place] [address] Performed By: #### 5 8410-2 ####[facility] [id number] [place] [address] [place] RBC (Bld) [#/Vol] 3.29 10*6/uL Low 4.20-6.00 [facility] Comment on above: Order Comment: Speci men Type: BLOOD SPECIMENOrdering Facility: [facility] Address: [address] [place] [address] Performed By: #### 5 8410-2 ####[facility] [id number] [place] [address] [place] WBC (Bld) [#/Vol] 8.81 10*3/uL Normal 3.70-11.00 [facility] Comment on above: Order Comment: Speci men Type: BLOOD SPECIMENOrdering Facility: [facility] Address: [address] [place] [address] Performed By: #### 5 8410-2 ####[facility] [id number] [place] [address] [place] Magnesium SerPl-mCncon 12-04 Magnesium [Mass/Vol] 2.2 mg/dL Normal 1.7-2.3 [facility] Comment on above: Order Comment: Speci men Type: BLOOD SPECIMEN Ordering Facility: [facility] Address: [address] [place] [address] Performed By: #### 1 9123-9, 2777-1, 96468-2 #### [facility] CLIA [id number] [address] [place] [address] [place] Phosphate SerPl-mCncon 12-04 Phosphate [Mass/Vol] 2.2 mg/dL Low 2.7-4.8 [facility] Comment on above: Order Comment: Speci men Type: BLOOD SPECIMEN Ordering Facility: [facility] Address: [address] [place] [address] Performed By: #### 1 9123-9, 2777-1, 18676-8 #### [facility] CLIA [id number] [address] [place] [address] [facility] THERAPY NTon 12-04-2024 THERAPY NT HNO ID: [id number] Author: POONAM SMITH, OT/L Service: Occupational Therapy Author Type: Occupational Therapist Type: Therapy (PT/OT/Speech/Resp) Filed: 12/04/2024 15:47 Note Text: Occupational Therapy Treatment Summary SERVICE DATE: 12/04/2024 SERVICE TIME: 1502 to 1528 ROOM: [place] [address] OT 6 Clicks Score: 20 DISCHARGE RECOMMENDATIONS Home OT Recommended Discharge Disposition Comments: . Anticipated Discharge Needs: Physical Assist at Home Physical Assist at Home for: Cleaning, Meals, Laundry, Shopping, Transportation ASSESSMENT Response to Therapy Interventions: Limited Participation, Requires Encouragement to Complete Activities, Slow Progression with ADLs/IADLs, Slow Progression with Functional Activities/Skills Pt lying supine with HOB elevated upon arrival, agreeable to skilled OT session. Pt reporting, I got up earlier to the chair and walked. Providing education on importance of completing functional mobility while in house, including completing functional mobility x3-5/day. Pt verbalizing understanding. Discussion and education on discharge planning and home safety. Education on abdominal precautions. Pt reporting spouse can assist with ADLs. Pt reporting no additional OT skilled, acute needs. Re-consult if further needs arise. PRECAUTIONS Abdominal, Fall Risk CURRENT HOSPITAL COURSE 74 year old male with PMHx f HLD, HTN, ALICIA on CPAP, T2DM, hypothyroidism, anemia, MDD, heart murmur and alcohol use who is now s/p ventral hernia repair with Dr. Persaud on 12/01/2024 Relevant Past Medical History: DM, HTN, Hyperthyroidism, Sepsis, Resp failure, Hand surgery HOME LIVING Patient Lives With: Spouse Assistance Available: 24-Hour Entry To Home: Stairs, With Rail Number Of Stairs Into Home: 4 Number Of Stairs To Bed/Bath: 12 Stairs to Bed/Bath with: Unilateral Rail Tub/Shower Type: Tub shower Equipment Owned: (CPAP) PRIOR FUNCTIONAL LEVEL Within Functional Limits Ind with amb/ADLs and IADLs. Baseline Cognition: Oriented to self, Oriented to place, Oriented to time, Oriented to situation SUBJECTIVE I am not concerned with walking. COGNITION Orientation Deficits: Other: See Comment (alert and oriented x4) Responsiveness: Alert, Awake Follows Commands: 3-step Commands Cog 6 Start of Session Total Points (Max Score = 24): 23 (12/04/24) Cog 6 End of Session Total Points (Max Score = 24): 24 (12/04/24) 4AT Score: 0 (12/04/24) Delirium Positive/Negative: Negative (12/04/24) THERAPY DIAGNOSIS Reduced mobility-other, Decreased activities of daily living (ADL), Muscle Weakness (generalized), General symptoms and signs-other TREATMENT INTERVENTIONS Self Longterm Management (56396) Timed Code Treatment (minutes): 26 Skilled Treatment Time (minutes): 26 TRAINING AND EDUCATION PROVIDED Activity Adaptation/Compensatory Strategies, Benefits of In-Hospital Mobility, Functional Mobility Involving ADLs, Visual Scanning/Attention Activities, Treatment Protocol, Role of Occupational Therapy, Safety/Judgment, Self-Expression/Advocacy , Precautions/Restrictions , Positioning, Pain Management, Memory/Attention, Orientation, Meaningful Hobby/Leisure Participation, Insight into Deficits, Life Roles/Routines/Habits, Identification of Systems of Support, Energy Conservation, Discharge Planning, Expected Functional Level, Upper Extremity Bathing, Lower Extremity Bathing, Lower Extremity Dressing THERAPEUTIC SKILLS USED Activity Dosing, Cuing Verbal, Cues for Sequencing/Proper Technique for Activity, Therapeutic Use of Self FUNCTIONAL STATUS Activities of Daily Living Assist Level Additional Information Feeding Modified Independent, Set Up Grooming Modified Independent, Set Up Bathing Upper Body Set Up Bathing Lower Body Moderate Assistance Dressing Upper Body Modified Independent, Set Up Dressing Lower Body Moderate Assistance Toileting Minimal Assistance Mobility Assist Level Additional Information Bed Mobility Rolling: Maximal Assistance Supine To Sit: Additional Information NT, reporting can complete mobility, stating, I did it earlier. Sit to Stand Stand to Sit Bed to Chair Toilet/Commode Shower Functional Mobility GOALS Patient will demonstrate understanding of importance of mobility during hospital stay and resolve all self-care, cognitive and/or coping needs identified. Rehab Potential: Good Progress Toward Goals: Progressing slower than expected ACUTE CARE TREATMENT PLAN OT Frequency: Discontinue Therapy Services Reasons Therapy Services Discontinued: Declines care Treatment Interventions: Education, Self Care/Home Management, Energy Conservation Training, Joint Mobility, Coping Strategy Education Plan for Next Visit: Continue per POC SIGNATURE: Poonam Smith OT/L PATIENT NAME: Corinne Correa DATE: December 04, 2024 TIME: 3:[address] [facility] TOXICOLOGY SCREEN, ROUTINE U RINEon 12-04-2024 Amphetamines Confirm (U) [Mass/Vol] Negative Normal Negative [facility] Comment on above: Order Comment: Speci men Type: BLOOD SPECIMEN Ordering Facility: [facility] Address: [address] [place] [address] Result Comment: Cuto ff threshold at 1000 ng/mL. Performed By: #### 1 9123-9, 2777-1, 87002-0 #### [facility] CLIA [id number] [address] [place] [address] [place] BARBITURATES, URINE Negative Normal Negative [facility] Comment on above: Order Comment: Speci men Type: BLOOD SPECIMEN Ordering Facility: [facility] Address: [address] [place] [address] Result Comment: Cuto ff threshold at 200 ng/mL. Performed By: #### 1 9123-9, 2777-1, 84696-3 #### [facility] CLIA [id number] [address] [place] [address] [place] BENZODIAZEPINES, URINE Negative Normal Negative [facility] Comment on above: Order Comment: Speci men Type: BLOOD SPECIMEN Ordering Facility: [facility] Address: [address] [place] [address] Result Comment: Cuto ff threshold at 200 ng/mL. Performed By: #### 1 9123-9, 2777-1, 11104-6 #### [facility] CLIA [id number] [address] [place] [address] [place] Cannabinoids Screen Ql (U) Negative Normal Negative [facility] Comment on above: Order Comment: Speci men Type: BLOOD SPECIMEN Ordering Facility: [facility] Address: [address] [place] [address] Result Comment: Cuto ff threshold at 50 ng/mL. Performed By: #### 1 9123-9, 2777, 16955-5 #### [facility] CLIA [id number] [address] [place] [address] [place] Cocaine Ql (U) Negative Normal Negative [facility] Comment on above: Order Comment: Speci men Type: BLOOD SPECIMEN Ordering Facility: [facility] Address: [address] [place] [address] Result Comment: Cuto ff threshold at 300 ng/mL. Performed By: #### 1 9123-9, 2777, 24801-8 #### [facility] CLIA [id number] [address] [place] [address] [place] Ethanol (U) [Mass/Vol] <11 Normal <11 [facility] Comment on above: Order Comment: Speci men Type: BLOOD SPECIMEN Ordering Facility: [facility] Address: [address] [place] [address] Performed By: #### 1 9123-9, 27709-29, #### [facility] CLIA [id number] [address] [place] [address] [place] fentaNYL Screen Ql (U) Negative Normal Negative [facility] Comment on above: Order Comment: Speci men Type: BLOOD SPECIMEN Ordering Facility: [facility] Address: [address] [place] [address] Result Comment: Cuto ff threshold at 5 ng/mL. Performed By: #### 1 9123-9, 2777, 62572-5 #### [facility] CLIA [id number] [address] [place], [place] [address] [place] Opiates Screen Ql (U) Negative Normal Negative [facility] Comment on above: Order Comment: Speci men Type: BLOOD SPECIMEN Ordering Facility: [facility] Address: [address] [place] [address] Result Comment: Cuto ff threshold at 300 ng/mL. Performed By: #### 1 9123-9, 2777-1, 35617-4 #### [facility] CLIA [id number] [address] [place] [address] [place] oxyCODONE cutoff Screen (U) [Mass/Vol] Negative Normal Negative [facility] Comment on above: Order Comment: Speci men Type: BLOOD SPECIMEN Ordering Facility: [facility] Address: [address] [place] [address] Result Comment: Cuto ff threshold at 100 ng/mL. Performed By: #### 1 9123-9, 2777-, 55989-0 #### [facility] CLIA [id number] [address] [place] [address] [place] Phencyclidine Ql (U) Negative Normal Negative [facility] Comment on above: Order Comment: Speci men Type: BLOOD SPECIMEN Ordering Facility: [facility] Address: [address] [place] [address] Result Comment: Cuto ff threshold at 25 ng/mL. Performed By: #### 1 9123-9, 2777-, 45041-6 #### [facility] CLIA [id number] [address] [place] [address] [place] Basic metabolic 2000 panelon 12-03-2024 Anion gap [Moles/Vol] 11 mmol/L Normal 8-15 [facility] Comment on above: Order Comment: Speci men Type: BLOOD SPECIMEN Ordering Facility: [facility] Address: [address] [place] [address] Performed By: #### 1 9123-9, 2777-, 22389-2 #### [facility] CLIA [id number] [address] [place], [place] [address] [place] Calcium [Mass/Vol] 7.9 mg/dL Low 8.5-10.[address] [facility] Comment on above: Order Comment: Speci men Type: BLOOD SPECIMEN Ordering Facility: [facility] Address: [address] [place] [address] Performed By: #### 1 9123-9, 2777-, 92026-2 #### [facility] CLIA [id number] [address] [place] [address] [place] Chloride [Moles/Vol] 106 mmol/L Normal 98-107 [facility] Comment on above: Order Comment: Speci men Type: BLOOD SPECIMEN Ordering Facility: [facility] Address: [address] [place] [address] Performed By: #### 1 9123-9, 2777-1, 32840-3 #### [facility] CLIA [id number] [address] [place] [address] [place] CO2 [Moles/Vol] 22 mmol/L Normal 22-[address] [facility] Comment on above: Order Comment: Speci men Type: BLOOD SPECIMEN Ordering Facility: [facility] Address: [address] [place] [address] Performed By: #### 1 9123-9, 27709-29, 59337-2 #### [facility] CLIA [id number] [address] [place] [address] [place] Creatinine [Mass/Vol] 1.26 mg/dL High 0.73-1.22 [facility] Comment on above: Order Comment: Speci men Type: BLOOD SPECIMEN Ordering Facility: [facility] Address: [address] [place] [address] Performed By: #### 1 9123-9, 2777-1, 15182-3 #### [facility] CLIA [id number] [address] [place] [address] [place] eGFRcr SerPlBld CKD-EPI 1 60 mL/min/1.73m??? Normal >=[address] [facility] Comment on above: Order Comment: Speci men Type: BLOOD SPECIMEN Ordering Facility: [facility] Address: [address] [place] [address] Result Comment: Madeline mated Glomerular Filtration Rate (eGFR) is calculated using the 2020 CKD-EPI creatinine equation. This equation utilizes serum creatinine, sex, and age as parameters. The creatinine assay has traceable calibration to isotope dilution-mass spectrometry. Refer to KDIGO guidelines for clinical interpretation. In patients with unstable renal function, e.g. those with acute kidney injury, the eGFR may not accurately reflect actual GFR. Performed By: #### 1 9123-9, 2777-1, 45056-2 #### [facility] CLIA [id number] [address] [place] [address] [place] Glucose [Mass/Vol] 252 mg/dL High 74-[address] [facility] Comment on above: Order Comment: Lester hayden Type: BLOOD SPECIMEN Ordering Facility: [facility] Address: [address] [place] [address] Result Comment: The [place] [employer] (ADA) provides guidance for cutoff values for fasting glucose and random glucose. The ADA defines fasting as no caloric intake for at least 8 hours. Fasting plasma glucose results between 100 to 125 mg/dL indicate increased risk for diabetes (prediabetes). Fasting plasma glucose results greater than or equal to 126 mg/dL meet the criteria for diagnosis of diabetes. In the absence of unequivocal hyperglycemia, results should be confirmed by repeat testing. In a patient with classic symptoms of hyperglycemia or hyperglycemic crisis, random plasma glucose results greater than or equal to 200 mg/dL meet the criteria for diagnosis of diabetes. Reference: Standards of Medical Care in Diabetes 2016, [place] [employer]. Diabetes Care. 2016.39(Suppl 1). Performed By: #### 1 9123-9, 2777-1, 28617-4 #### [facility] CLIA [id number] [address] [place] [address] [place] Potassium [Moles/Vol] 4.3 mmol/L Normal 3.7-5.1 [facility] Comment on above: Order Comment: Lester hayden Type: BLOOD SPECIMEN Ordering Facility: [facility] Address: [address] [place] [address] Performed By: #### 1 9123-9, 27709-29, 77382-5 #### [facility] CLIA [id number] [address] [place], [place] [address] [place] Sodium [Moles/Vol] 139 mmol/L Normal 136-[address] [facility] Comment on above: Order Comment: Speci men Type: BLOOD SPECIMEN Ordering Facility: [facility] Address: [address] [place], [place] [address] Performed By: #### 1 9123-9, 27709-29, 67619-2 #### [facility] CLIA [id number] [address] [place] [address] [place] Urea nitrogen [Mass/Vol] 30 mg/dL High 9-[address] [facility] Comment on above: Order Comment: Speci men Type: BLOOD SPECIMEN Ordering Facility: [facility] Address: [address] [place], [place] [address] Performed By: #### 1 9123-9, 27709-29, 35302-9 #### [facility] CLIA [id number] [address] [place] [address] [place] Anion gap [Moles/Vol] 13 mmol/L Normal 8-15 [facility] Comment on above: Order Comment: Speci men Type: BLOOD SPECIMEN Ordering Facility: [facility] Address: [address] [place], [place] [address] Performed By: #### 1 9123-9, 27709-29, 12005-8 #### [facility] CLIA [id number] [address] [place], [place] [address] [place] Calcium [Mass/Vol] 7.8 mg/dL Low 8.5-10.[address] [facility] Comment on above: Order Comment: Speci men Type: BLOOD SPECIMEN Ordering Facility: [facility] Address: [address] [place] [address] Performed By: #### 1 9123-9, 27709-29, 73378-6 #### [facility] CLIA [id number] [address] [place], [place] [address] [place] Chloride [Moles/Vol] 105 mmol/L Normal 98-107 [facility] Comment on above: Order Comment: Speci men Type: BLOOD SPECIMEN Ordering Facility: [facility] Address: [address] [place] [address] Performed By: #### 1 9123-9, 2777, 82425-9 #### [facility] CLIA [id number] [address] [place] [address] [place] CO2 [Moles/Vol] 21 mmol/L Low 22-[address] [facility] Comment on above: Order Comment: Speci men Type: BLOOD SPECIMEN Ordering Facility: [facility] Address: [address] [place] [address] Performed By: #### 1 9123-9, 2777, 98155-2 #### [facility] CLIA [id number] [address] [place] [address] [place] Creatinine [Mass/Vol] 1.40 mg/dL High 0.73-1.22 [facility] Comment on above: Order Comment: Speci men Type: BLOOD SPECIMEN Ordering Facility: [facility] Address: [address] [place] [address] Performed By: #### 1 9123-9, 2777, 76324-3 #### [facility] CLIA [id number] [address] [place] [address] [place] eGFRcr SerPlBld CKD-EPI 2020 53 mL/min/1.73m??? Low >=[address] [facility] Comment on above: Order Comment: Speci men Type: BLOOD SPECIMEN Ordering Facility: [facility] Address: [address] [place] [address] Result Comment: Madeline mated Glomerular Filtration Rate (eGFR) is calculated using the 2020 CKD-EPI creatinine equation. This equation utilizes serum creatinine, sex, and age as parameters. The creatinine assay has traceable calibration to isotope dilution-mass spectrometry. Refer to KDIGO guidelines for clinical interpretation. In patients with unstable renal function, e.g. those with acute kidney injury, the eGFR may not accurately reflect actual GFR. Performed By: #### 1 9123-9, 2777-, 60649-5 #### [facility] CLIA [id number] [address] [place] [address] [place] Glucose [Mass/Vol] 179 mg/dL High 74-[address] [facility] Comment on above: Order Comment: Lester hayden Type: BLOOD SPECIMEN Ordering Facility: [facility] Address: [address] [place] [address] Result Comment: The [place] Diabetes [employer] (ADA) provides guidance for cutoff values for fasting glucose and random glucose. The ADA defines fasting as no caloric intake for at least 8 hours. Fasting plasma glucose results between 100 to 125 mg/dL indicate increased risk for diabetes (prediabetes). Fasting plasma glucose results greater than or equal to 126 mg/dL meet the criteria for diagnosis of diabetes. In the absence of unequivocal hyperglycemia, results should be confirmed by repeat testing. In a patient with classic symptoms of hyperglycemia or hyperglycemic crisis, random plasma glucose results greater than or equal to 200 mg/dL meet the criteria for diagnosis of diabetes. Reference: Standards of Medical Care in Diabetes 2016, [place] [employer]. Diabetes Care. 2016.39(Suppl 1). Performed By: #### 1 9123-9, 27709-29, 10245-8 #### [facility] CLIA [id number] [address] [place] [address] [place] Potassium [Moles/Vol] 4.4 mmol/L Normal 3.7-5.1 [facility] Comment on above: Order Comment: Lester hayden Type: BLOOD SPECIMEN Ordering Facility: [facility] Address: [address] [place] [address] Performed By: #### 1 9123-9, 2777-, 50287-2 #### [facility] CLIA [id number] [address] [place] [address] [place] Sodium [Moles/Vol] 139 mmol/L Normal 136-[address] [facility] Comment on above: Order Comment: Speci men Type: BLOOD SPECIMEN Ordering Facility: [facility] Address: [address] [place] [address] Performed By: #### 1 9123-9, 2777-1, 26350-1 #### [facility] CLIA [id number] [address] [place] [address] [place] Urea nitrogen [Mass/Vol] 30 mg/dL High 9-[address] [facility] Comment on above: Order Comment: Speci men Type: BLOOD SPECIMEN Ordering Facility: [facility] Address: [address] [place] [address] Performed By: #### 1 9123-9, 27771, 97635-6 #### [facility] CLIA [id number] [address] [place] [address] [place] CBC panel Auto (Bld)on 12-03 Erythrocyte distribution width (RBC) [Ratio] 14.6 % Normal 11.5-15.[address] [facility] Comment on above: Order Comment: Speci men Type: BLOOD SPECIMEN Ordering Facility: [facility] Address: [address] [place] [address] Performed By: #### 1 9123-9, 2777-, 34139-4 #### [facility] CLIA [id number] [address] [place] [address] [place] Hematocrit (Bld) [Volume fraction] 33.5 % Low 39.0-51.[address] [facility] Comment on above: Order Comment: Speci men Type: BLOOD SPECIMEN Ordering Facility: [facility] Address: [address] [place] [address] Performed By: #### 1 9123-9, 2777-1, 08596-1 #### [facility] CLIA [id number] [address] [place] [address] [place] Hemoglobin (Bld) [Mass/Vol] 10.5 g/dL Low 13.0-17.[address] [facility] Comment on above: Order Comment: Speci men Type: BLOOD SPECIMEN Ordering Facility: [facility] Address: [address] [place] [address] Performed By: #### 1 9123-9, 2777-1, 85901-0 #### [facility] CLIA [id number] [address] [place] [address] [place] MCH (RBC) [Entitic mass] 29.1 pg Normal 26.0-34.[address] [facility] Comment on above: Order Comment: Speci men Type: BLOOD SPECIMEN Ordering Facility: [facility] Address: [address] [place] [address] Performed By: #### 1 9123-9, 2777-1, 67887-7 #### [facility] CLIA [id number] [address] [place] [address] [place] MCHC (RBC) [Mass/Vol] 31.3 g/dL Normal 30.5-36.0 [facility] Comment on above: Order Comment: Speci men Type: BLOOD SPECIMEN Ordering Facility: [facility] Address: [address] [place] [address] Performed By: #### 1 9123-9, 27771, 76774-7 #### [facility] CLIA [id number] [address] [place] [address] [place] MCV (RBC) [Entitic vol] 92.8 fL Normal 80.0-100.0 [facility] Comment on above: Order Comment: Speci men Type: BLOOD SPECIMEN Ordering Facility: [facility] Address: [address] [place] [address] Performed By: #### 1 9123-9, 2777-1, 15422-7 #### [facility] CLIA [id number] [address] [place] [address] [place] Nucleated RBC (Bld) [#/Vol] 10*3/uL Normal <0.[address] [facility] Comment on above: Order Comment: Speci men Type: BLOOD SPECIMEN Ordering Facility: [facility] Address: [address] [place] [address] Performed By: #### 1 9123-9, 2777-1, 64884-9 #### [facility] CLIA [id number] [address] [place] [address] [place] Platelet mean volume (Bld) [Entitic vol] 11.0 fL Normal 9.0-12.[address] [facility] Comment on above: Order Comment: Speci men Type: BLOOD SPECIMEN Ordering Facility: [facility] Address: [address] [place] [address] Performed By: #### 1 9123-9, 2777-1, 04010-0 #### [facility] CLIA [id number] [address] [place] [address] [place] Platelets (Bld) [#/Vol] 223 10*3/uL Normal 150-[address] [facility] Comment on above: Order Comment: Speci men Type: BLOOD SPECIMEN Ordering Facility: [facility] Address: [address] [place] [address] Performed By: #### 1 9123-9, 2777-1, 61524-2 #### [facility] CLIA [id number] [address] [place] [address] [place] RBC (Bld) [#/Vol] 3.61 10*6/uL Low 4.20-6.00 [facility] Comment on above: Order Comment: Speci men Type: BLOOD SPECIMEN Ordering Facility: [facility] Address: [address] [place] [address] Performed By: #### 1 9123-9, 2777-1, 73305-0 #### [facility] CLIA [id number] [address] [place] [address] [place] WBC (Bld) [#/Vol] 11.81 10*3/uL High 3.70-11.00 [facility] Comment on above: Order Comment: Speci men Type: BLOOD SPECIMEN Ordering Facility: [facility] Address: [address] [place] [address] Performed By: #### 1 9123-9, 2777-1, 25505-1 #### [facility] CLIA [id number] [address] [place] [address] [place] Erythrocyte distribution width (RBC) [Ratio] 14.5 % Normal 11.5-15.[address] [facility] Comment on above: Order Comment: Speci men Type: BLOOD SPECIMEN Ordering Facility: [facility] Address: [address] [place] [address] Performed By: #### 1 9123-9, 2777-, 69245-8 #### [facility] CLIA [id number] [address] [place] [address] [place] Hematocrit (Bld) [Volume fraction] 35.9 % Low 39.0-51.[address] [facility] Comment on above: Order Comment: Speci men Type: BLOOD SPECIMEN Ordering Facility: [facility] Address: [address] [place] [address] Performed By: #### 1 9123-9, 2777-1, 34763-4 #### [facility] CLIA [id number] [address] [place] [address] [place] Hemoglobin (Bld) [Mass/Vol] 11.0 g/dL Low 13.0-17.[address] [facility] Comment on above: Order Comment: Speci men Type: BLOOD SPECIMEN Ordering Facility: [facility] Address: [address] [place] [address] Performed By: #### 1 9123-9, 2777-1, 86623-7 #### [facility] CLIA [id number] [address] [id number] [address] [place] MCH (RBC) [Entitic mass] 29.1 pg Normal 26.0-34.[address] [facility] Comment on above: Order Comment: Speci men Type: BLOOD SPECIMEN Ordering Facility: [facility] Address: [address] [place] [address] Performed By: #### 1 9123-9, 2777-1, 86494-3 #### [facility] CLIA [id number] [address] [place] [address] [place] MCHC (RBC) [Mass/Vol] 30.6 g/dL Normal 30.5-36.0 [facility] Comment on above: Order Comment: Speci men Type: BLOOD SPECIMEN Ordering Facility: [facility] Address: [address] [place] [address] Performed By: #### 1 9123-9, 2777, 43446-2 #### [facility] CLIA [id number] [address] [place] [address] [place] MCV (RBC) [Entitic vol] 95.0 fL Normal 80.0-100.0 [facility] Comment on above: Order Comment: Speci men Type: BLOOD SPECIMEN Ordering Facility: [facility] Address: [address] [place] [address] Performed By: #### 1 9123-9, 2777, 55074-0 #### [facility] CLIA [id number] [address] [place] [address] [place] Nucleated RBC (Bld) [#/Vol] 10*3/uL Normal <0.[address] [facility] Comment on above: Order Comment: Speci men Type: BLOOD SPECIMEN Ordering Facility: [facility] Address: [address] [place] [address] Performed By: #### 1 9123-9, 2777-1, 22458-5 #### [facility] CLIA [id number] [address] [place] [address] [place] Platelet mean volume (Bld) [Entitic vol] 11.5 fL Normal 9.0-12.[address] [facility] Comment on above: Order Comment: Speci men Type: BLOOD SPECIMEN Ordering Facility: [facility] Address: [address] [place] [address] Performed By: #### 1 9123-9, 2777-1, 18315-3 #### [facility] CLIA [id number] [address] [place] [address] [place] Platelets (Bld) [#/Vol] 254 10*3/uL Normal 150-[address] [facility] Comment on above: Order Comment: Speci men Type: BLOOD SPECIMEN Ordering Facility: [facility] Address: [address] [place] [address] Performed By: #### 1 9123-9, 2777-1, 09123-5 #### [facility] CLIA [id number] [address] [place] [address] [place] RBC (Bld) [#/Vol] 3.78 10*6/uL Low 4.20-6.00 [facility] Comment on above: Order Comment: Speci men Type: BLOOD SPECIMEN Ordering Facility: [facility] Address: [address] [place] [address] Performed By: #### 1 9123-9, 2777-1, 81366-6 #### [facility] CLIA [id number] [address] [place] [address] [place] WBC (Bld) [#/Vol] 11.93 10*3/uL High 3.70-11.00 [facility] Comment on above: Order Comment: Speci men Type: BLOOD SPECIMEN Ordering Facility: [facility] Address: [address] [place] [address] Performed By: #### 1 9123-9, 2777-1, 66724-0 #### [facility] CLIA [id number] [address] [id number] [address] [place] Magnesium SerPl-mCncon 12-03 Magnesium [Mass/Vol] 2.1 mg/dL Normal 1.7-2.3 [facility] Comment on above: Order Comment: Speci men Type: BLOOD SPECIMEN Ordering Facility: [facility] Address: [address] [place] [address] Performed By: #### 1 9123-9, 2777-1, 42905-1 #### [facility] CLIA [id number] [address] [place] [address] [place] Magnesium [Mass/Vol] 1.9 mg/dL Normal 1.7-2.3 [facility] Comment on above: Order Comment: Speci men Type: BLOOD SPECIMEN Ordering Facility: [facility] Address: [address] [place] [address] Performed By: #### 1 9123-9, 2777-1, 41150-5 #### [facility] CLIA [id number] [address] [place] [address] [place] Phosphate SerPl-mCncon 12-03 Phosphate [Mass/Vol] 2.7 mg/dL Normal 2.7-4.8 [facility] Comment on above: Order Comment: Speci men Type: BLOOD SPECIMEN Ordering Facility: [facility] Address: [address] [place] [address] Performed By: #### 1 9123-9, 2777-1, 21575-8 #### [facility] CLIA [id number] [address] [place], [place] [address] [place] Phosphate [Mass/Vol] 3.6 mg/dL Normal 2.7-4.8 [facility] Comment on above: Order Comment: Speci men Type: BLOOD SPECIMEN Ordering Facility: [facility] Address: [address] [place] [address] Performed By: #### 1 9123-9, 2777-1, 88311-1 #### [facility] CLIA [id number] [address] [place] [address] [place] [address] [place] THERAPY NTon 12-03-2024 THERAPY NT HNO ID: [id number] Author: CURTIS JENNINGS OT/L Service: Occupational Therapy Author Type: Occupational Therapist Type: Therapy (PT/OT/Speech/Resp) Filed: 12/03/2024 10:20 Note Text: Occupational Therapy Evaluation Summary SERVICE DATE: 12/03/2024 SERVICE TIME: 958 to 1015 ROOM: H051- OT 6 Clicks Score: 19 DISCHARGE RECOMMENDATIONS Home OT Recommended Discharge Disposition Comments: with hopeful progression to home with no OT needs Anticipated Discharge Needs: Physical Assist at Home Physical Assist at Home for: Cleaning, Meals, Laundry, Shopping, Transportation ASSESSMENT Response to Therapy Interventions: Limited Participation, Low Activity Tolerance, Pain, Requires Encouragement to Complete Activities PRECAUTIONS Abdominal, Fall Risk CURRENT HOSPITAL COURSE 74 year old male with PMHx f HLD, HTN, ALICIA on CPAP, T2DM, hypothyroidism, anemia, MDD, heart murmur and alcohol use who is now s/p ventral hernia repair with Dr. Persaud on 12/01/2024 Relevant Past Medical History: DM, HTN, Hyperthyroidism, Sepsis, Resp failure, Hand surgery HOME LIVING Patient Lives With: Spouse Assistance Available: 24-Hour Entry To Home: Stairs, With Rail Number Of Stairs Into Home: 4 Number Of Stairs To Bed/Bath: 12 Stairs to Bed/Bath with: Unilateral Rail Tub/Shower Type: Tub shower Equipment Owned: (CPAP) PRIOR FUNCTIONAL LEVEL Within Functional Limits Ind with amb/ADLs and IADLs. Baseline Cognition: Oriented to self, Oriented to place, Oriented to time, Oriented to situation SUBJECTIVE I walked in the hallway yesterday. COGNITION Orientation Deficits: Other: See Comment (alert and oriented x4) Responsiveness: Alert, Awake Follows Commands: 3-step Commands Cog 6 Start of Session Total Points (Max Score = 24): 23 (12/03/24) Cog 6 End of Session Total Points (Max Score = 24): 24 (12/03/24) 4AT Score: 0 (12/03/24) Delirium Positive/Negative: Negative (12/03/24) THERAPY DIAGNOSIS Decreased activities of daily living (ADL), General symptoms and signs-other TREATMENT INTERVENTIONS Evaluation Skilled Treatment Time (minutes): 17 TRAINING AND EDUCATION PROVIDED Activity Adaptation/Compensatory Strategies, Bed Mobility, Benefits of In-Hospital Mobility, Coping Skills/Resiliency, Discharge Planning, Energy Conservation, Grooming Tasks, Health Management of Chronic Conditions, Health Literacy, Pain Management, Positioning, Precautions/Restrictions , Role of Occupational Therapy THERAPEUTIC SKILLS USED Activity Dosing, Cuing Tactile, Cuing Verbal, Therapeutic Use of Self, Teach-Back for Education, Facilitation of Joint Range of Motion FUNCTIONAL STATUS Activities of Daily Living Assist Level Additional Information Feeding Modified Independent, Set Up Grooming Modified Independent, Set Up Bathing Upper Body Minimal Assistance Bathing Lower Body Moderate Assistance Dressing Upper Body Modified Independent, Set Up Dressing Lower Body Moderate Assistance Toileting Minimal Assistance Mobility Assist Level Additional Information Bed Mobility Rolling: Maximal Assistance Supine To Sit: Additional Information Declines any further functional mobility on this date Sit to Stand Stand to Sit Bed to Chair Toilet/Commode Shower Functional Mobility GOALS Patient will demonstrate understanding of importance of mobility during hospital stay and resolve all self-care, cognitive and/or coping needs identified. Rehab Potential: Good Good Rehab Potential Due To: Current objective clinical presentation, Good motivation Progress Toward Goals: Progressing as expected ACUTE CARE TREATMENT PLAN OT Frequency: Per Next Session Date Treatment Interventions: Education, Self Care/Home Management, Energy Conservation Training, Joint Mobility, Coping Strategy Education Plan for Next Visit: Chair/Commode Transfer Training, Standing Tolerance, Standing Balance, Pain Management SIGNATURE: Curtis Jennings OT/L PATIENT NAME: Corinne Correa DATE: December 03, 2024 TIME: 10:[address] [facility] XR ABDOMEN 1V SUPINEon 12-03 XR ABDOMEN 1V SUPINE * * *Final Report* * * DATE OF EXAM: Dec 03 2024 2:07PM JANA [id number] - XR ABDOMEN 1V SUPINE / PROCEDURE REASON: Ileus vs obstruction * * * * Physician Interpretation * * * * ABDOMINAL X-RAY, 1 VIEW. CLINICAL INFORMATION: Ileus versus obstruction. COMPARISON: Outside CT abdomen and pelvis 07/13/2024 TECHNIQUE: Supine abdomen, 1 image(s) with postprocessing. RESULT: See impression. IMPRESSION: Lines, tubes, and devices: Multiple surgical drains overlying the abdomen and pelvis. Coude catheter overlies the pelvis. Bowel: Borderline-mild dilated gas-filled loops of small bowel, likely mild ileus. Normal caliber gas-filled colon. Other: Osseous degenerative changes. Cholecystectomy clips. Repack Room Worker: PSCB Transcribe Date/Time: Dec 03 2024 2:17P Dictated by : SHAMAR REYES MD This examination was interpreted and the report reviewed and electronically signed by: DONNA RHOADES DO on Dec 03 2024 3:46PM EST [id number] Normal [facility] XR CHEST 1V FRONTAL PORTon 0 12-03-2024 XR CHEST 1V FRONTAL PORT * * *Final Report* * * DATE OF EXAM: Dec 03 2024 2:07PM JANA [id number] - XR CHEST 1V FRONTAL PORT / PROCEDURE REASON: Shortness of breath * * * * Physician Interpretation * * * * EXAMINATION: CHEST RADIOGRAPH (PORTABLE SINGLE VIEW AP) Exam Date/Time: 12/03/2024 2:07 PM Clinical History: Shortness of breath MQ: [id number] Comparison: None. RESULT: Lines, tubes, and devices: None. Lungs and pleura: Mild atelectasis at lung bases. No pneumothorax or pulmonary edema. No substantial pleural effusions. Cardiomediastinal silhouette: Stable cardiomediastinal silhouette. Other: . IMPRESSION: See result. Repack Room Worker: THI Transcribe Date/Time: Dec 03 2024 2:19P Dictated by : AMBROSIO BANEGAS MD This examination was interpreted and the report reviewed and electronically signed by: AMBROSIO BANEGAS MD on Dec 03 2024 2:20PM EST [id number] Normal [facility] Basic metabolic 2000 panelon 12-02-2024 Anion gap [Moles/Vol] 15 mmol/L Normal 8-15 [facility] Comment on above: Order Comment: Speci men Type: BLOOD SPECIMENOrdering Facility: [facility] Address: [address] [place] [address] Performed By: #### 1 9123-9, 2777-1, 92334-2 ####[facility] LABCLIA [id number] [place] [address] [place] Calcium [Mass/Vol] 7.6 mg/dL Low 8.5-10.[address] [facility] Comment on above: Order Comment: Speci men Type: BLOOD SPECIMENOrdering Facility: [facility] Address: [address] [place] [address] Performed By: #### 1 9123-9, 2777-1, 04089-5 ####[facility] LABCLIA [id number] [facility] [address] [address] [place] Chloride [Moles/Vol] 104 mmol/L Normal 98-107 [facility] Comment on above: Order Comment: Speci men Type: BLOOD SPECIMENOrdering Facility: [facility] Address: [address] [place] [address] Performed By: #### 1 9123-9, 27771, 97394-9 ####[facility] LABCLIA [id number] [facility] [place] [id number] [place] CO2 [Moles/Vol] 20 mmol/L Low 22-[address] [facility] Comment on above: Order Comment: Speci men Type: BLOOD SPECIMENOrdering Facility: [facility] Address: [address] [place] [address] Performed By: #### 1 9123-9, 2777, 47173-8 ####[facility] LABCLIA [id number] [facility] [address] [place] [address] [place] Creatinine [Mass/Vol] 1.53 mg/dL High 0.73-1.22 [facility] Comment on above: Order Comment: Speci men Type: BLOOD SPECIMENOrdering Facility: [facility] Address: [address] [place] [address] Performed By: #### 1 9123-9, 27771, 90198-1 ####[facility] LABCLIA [id number] [facility] [address] [place] [address] [place] eGFRcr SerPlBld CKD-EPI 2020 48 mL/min/1.73m??? Low >=[address] [facility] Comment on above: Order Comment: Lester hayden Type: BLOOD SPECIMENOrdering Facility: [facility] Address: [address] [place] [address] Result Comment: Madeline mated Glomerular Filtration Rate (eGFR) is calculated using the 2020 CKD-EPI creatinine equation. This equation utilizes serum creatinine, sex, and age as parameters. The creatinine assay has traceable calibration to isotope dilution-mass spectrometry. Refer to KDIGO guidelines for clinical interpretation. In patients with unstable renal function, e.g. those with acute kidney injury, the eGFR may not accurately reflect actual GFR. Performed By: #### 1 9123-9, 2777-1, 70189-0 ####[facility] [id number] [place] [address] [place] Glucose [Mass/Vol] 211 mg/dL High 74-[address] [facility] Comment on above: Order Comment: Lester hayden Type: BLOOD SPECIMENOrdering Facility: [facility] Address: [address] [place] [address] Result Comment: The [place] [employer] (ADA) provides guidance for cutoff values for fasting glucose and random glucose. The ADA defines fasting as no caloric intake for at least 8 hours. Fasting plasma glucose results between 100 to 125 mg/dL indicate increased risk for diabetes (prediabetes). Fasting plasma glucose results greater than or equal to 126 mg/dL meet the criteria for diagnosis of diabetes. In the absence of unequivocal hyperglycemia, results should be confirmed by repeat testing. In a patient with classic symptoms of hyperglycemia or hyperglycemic crisis, random plasma glucose results greater than or equal to 200 mg/dL meet the criteria for diagnosis of diabetes. Reference: Standards of Medical Care in Diabetes 2016, [place] [employer]. Diabetes Care. 2016.39(Suppl 1). Performed By: #### 1 9123-9, 2777-1, 58688-7 ####[facility] [id number] [place] [id number] [place] Potassium [Moles/Vol] 4.7 mmol/L Normal 3.7-5.1 [facility] Comment on above: Order Comment: Speci men Type: BLOOD SPECIMENOrdering Facility: [facility] Address: [address] [place] [address] Performed By: #### 1 9123-9, 2777-, 49666-5 ####[facility] LABCLIA [id number] [address] [address] [place] Sodium [Moles/Vol] 139 mmol/L Normal 136-[address] [facility] Comment on above: Order Comment: Speci men Type: BLOOD SPECIMENOrdering Facility: [facility] Address: [address] [place] [address] Performed By: #### 1 9123-9, 2777, 40662-9 ####[facility] LABCLIA [id number] [address] [address] [place] Urea nitrogen [Mass/Vol] 32 mg/dL High 9-[address] [facility] Comment on above: Order Comment: Speci men Type: BLOOD SPECIMENOrdering Facility: [facility] Address: [address] [place] [address] Performed By: #### 1 9123-9, 2777-, 75735-0 ####[facility] LABIA [id number] [address] [address] [place] CBC panel Auto (Bld)on 12-02 Erythrocyte distribution width (RBC) [Ratio] 14.6 % Normal 11.5-15.[address] [facility] Comment on above: Order Comment: Speci men Type: BLOOD SPECIMENOrdering Facility: [facility] Address: [address] [place], [place] [address] Performed By: #### 5 8410-2 ####[facility] LABIA [id number] [address] [address] [place] Hematocrit (Bld) [Volume fraction] 33.8 % Low 39.0-51.[address] [facility] Comment on above: Order Comment: Speci men Type: BLOOD SPECIMENOrdering Facility: [facility] Address: [address] [place] [address] Performed By: #### 5 8410-2 ####[facility] LABCLIA [id number] [place] [address] [place] Hemoglobin (Bld) [Mass/Vol] 10.8 g/dL Low 13.0-17.[address] [facility] Comment on above: Order Comment: Speci men Type: BLOOD SPECIMENOrdering Facility: [facility] Address: [address] [place] [address] Performed By: #### 5 8410-2 ####[facility] LABIA [id number] [place] [address] [place] MCH (RBC) [Entitic mass] 29.2 pg Normal 26.0-34.[address] [facility] Comment on above: Order Comment: Speci men Type: BLOOD SPECIMENOrdering Facility: [facility] Address: [address] [place] [address] Performed By: #### 5 8410-2 ####[facility] LABIA [id number] [place] [address] [place] MCHC (RBC) [Mass/Vol] 32.0 g/dL Normal 30.5-36.0 [facility] Comment on above: Order Comment: Speci men Type: BLOOD SPECIMENOrdering Facility: [facility] Address: [address] [place] [address] Performed By: #### 5 8410-2 ####[facility] LABCLIA [id number] [place] [address] [place] MCV (RBC) [Entitic vol] 91.4 fL Normal 80.0-100.0 [facility] Comment on above: Order Comment: Speci men Type: BLOOD SPECIMENOrdering Facility: [facility] Address: [address] [place] [address] Performed By: #### 5 8410-2 ####[facility] LABCLIA [id number] [place] [address] [place] Nucleated RBC (Bld) [#/Vol] 10*3/uL Normal <0.[address] [facility] Comment on above: Order Comment: Speci men Type: BLOOD SPECIMENOrdering Facility: [facility] Address: [address] [place] [address] Performed By: #### 5 8410-2 ####[facility] LABIA [id number] [place] [address] [place] Platelet mean volume (Bld) [Entitic vol] 11.4 fL Normal 9.0-12.[address] [facility] Comment on above: Order Comment: Speci men Type: BLOOD SPECIMENOrdering Facility: [facility] Address: [address] [place] [address] Performed By: #### 5 8410-2 ####[facility] LABIA [id number] [place] [address] [place] Platelets (Bld) [#/Vol] 231 10*3/uL Normal 150-[address] [facility] Comment on above: Order Comment: Speci men Type: BLOOD SPECIMENOrdering Facility: [facility] Address: [address] [place] [address] Performed By: #### 5 8410-2 ####[facility] LABIA [id number] [place] [address] [place] RBC (Bld) [#/Vol] 3.70 10*6/uL Low 4.20-6.00 [facility] Comment on above: Order Comment: Speci men Type: BLOOD SPECIMENOrdering Facility: [facility] Address: [address] [place] [address] Performed By: #### 5 8410-2 ####[facility] LABIA [id number] [place] [address] [place] WBC (Bld) [#/Vol] 11.47 10*3/uL High 3.70-11.00 [facility] Comment on above: Order Comment: Speci men Type: BLOOD SPECIMENOrdering Facility: [facility] Address: [address] [place] [address] Performed By: #### 5 8410-2 ####[facility] LABCLIA [id number] [address] Magnesium SerPl-ncon 12-02 Magnesium [Mass/Vol] 1.7 mg/dL Normal 1.7-2.3 [facility] Comment on above: Order Comment: Speci men Type: BLOOD SPECIMENOrdering Facility: [facility] Address: [address] [place] [address] Performed By: #### 1 9123-9, 2777-1, 86849-9 ####[facility] LABIA [id number] [address] Phosphate SerPl-mCncon 12-02 Phosphate [Mass/Vol] 4.2 mg/dL Normal 2.7-4.8 [facility] Comment on above: Order Comment: Speci men Type: BLOOD SPECIMENOrdering Facility: [facility] Address: [address] [place] [address] Performed By: #### 1 9123-9, 2777-1, 38003-7 ####[facility] [id number] [address] THERAPY NTon 12-02-2024 THERAPY NT HNO ID: [id number] Author: MABLE BAEZA, PT Service: Physical Therapy Author Type: Physical Therapist Type: Therapy (PT/OT/Speech/Resp) Filed: 12/02/2024 17:42 Note Text: Physical Therapy Evaluation Summary SERVICE DATE: 12/02/2024 SERVICE TIME: 1635 to 1720 ROOM: [place] [address] PT 6 Clicks Score: 19 DISCHARGE RECOMMENDATIONS Home PT Recommended Discharge Disposition Comments: may progress to no HOME PT needs. recommend family support Anticipated Discharge Needs: Physical Assist at Home Physical Assist at Home for: Cleaning, Meals, Laundry, Shopping, Transportation Recommended Discharge Equipment: To Be Determined ASSESSMENT Response to Therapy Interventions: Good Participation in Activities Pain main limiting factor with mobility. Unable to perform log roll technique d/t pain. Educated pt on precautions and progress inhouse. Pt has poor activity tolerance and functional mobility. Anticipate pt to progress with mobility and anticipate pt to return home with family support. May progress to no PT needs. Will f/u inhouse as approp. PRECAUTIONS Abdominal, Fall Risk CURRENT HOSPITAL COURSE 74 year old male with PMHx f HLD, HTN, ALICIA on CPAP, T2DM, hypothyroidism, anemia, MDD, heart murmur and alcohol use who is now s/p ventral hernia repair with Dr. Persaud on 12/01/2024 Relevant Past Medical History: DM, HTN, Hyperthyroidism, Sepsis, Resp failure, Hand surgery HOME LIVING Patient Lives With: Spouse Assistance Available: 24-Hour Entry To Home: Stairs, With Rail Number Of Stairs Into Home: 4 Number Of Stairs To Bed/Bath: 12 Stairs to Bed/Bath with: Unilateral Rail Tub/Shower Type: Tub shower Equipment Owned: (CPAP) PRIOR FUNCTIONAL LEVEL Within Functional Limits Ind with amb/ADLs and IADLs. SUBJECTIVE Agreeable to PT session. Per pt I was in coma for 2 months last December. THERAPY DIAGNOSIS Reduced mobility-other TREATMENT INTERVENTIONS Evaluation, Therapeutic Activity (49275), Gait Training (54222) Timed Code Treatment (minutes): 30 Skilled Treatment Time (minutes): 45 TRAINING AND EDUCATION PROVIDED Advanced Balance Activities, Assistive Device Use, Bed Mobility, Benefits of In-Hospital Mobility, Discharge Planning, Energy Conservation, Equipment, Exercise Program, Gait Pattern, Reduction of Deviations, Falls Prevention, Role of Physical Therapy, Positioning, Precautions/Restrictions , Expected Functional Level, Pain Neuroscience THERAPEUTIC SKILLS USED Activity Dosing, Assessment of Tolerance Including Vitals Response to Activity, Cues for Sequencing/Proper Technique for Activity, Cuing Tactile, Cuing Verbal, Cuing Visual FUNCTIONAL STATUS Bed Mobility Rolling: Total Assistance, Additional Information Attempted but pt unable Supine To Sit: Maximal Assistance, Additional Information HOB raised, pt needed assist to get to EOB Sit to Supine: Maximal Assistance, Additional Information HOB raised with partial roll did get in bed Scooting: Moderate Assistance Transfers Sit To Stand: Contact Guard Assistance Stand To Sit: Contact Guard Assistance Bed to Chair Additional Information Pt requested to return back to bed Gait Contact Guard Assistance Gait Device: Wheeled Walker General Deviations/Observations: Louisa decreased, Flexed trunk posture, Step length decreased Gait Distance (feet): 12feet x 2 Stairs GOALS Patient will demonstrate progress with functional mobility to allow safe discharge to home with available support and/or physical assistance. Rehab Potential: Good Good Rehab Potential Due To: Current objective clinical presentation, Good overall health status, Good support system/ coping skills, Good motivation Progress Toward Goals: Progressing as expected ACUTE CARE TREATMENT PLAN PT Frequency: Per Next Session Date Treatment Interventions: Education, Energy Conservation Training, Joint Mobility, Strengthening, Functional Mobility Training, Balance Training, Neuromuscular Re-education Plan for Next Visit: Bed Mobility, Chair Transfer Training, Gait Training, Family Instruction, Fall Prevention, Standing Balance, Standing Tolerance, Walker Training, Sit to Stand Transfers SIGNATURE: Mable Baeza PT PATIENT NAME: Corinne Correa DATE: December 02, 2024 TIME: 5:[address] [facility] ANES POSTPROC EVALon 025 ANES POSTPROC EVAL HNO ID: [id number] Author: CHARMAINE JIANG MD Service: ? Author Type: Physician Type: Anesthesia Postprocedure Evaluation Filed: 12/01/2024 13:45 Note Text: POST ANESTHESIA EVALUATION NOTE : 1950 Procedure Summary Date: 12/01/24 Room / Location: [address] [facility] Anesthesia Start: 721 Anesthesia Stop: 1317 Procedure: HERNIORRHAPHY INCISIONAL ABDOMINAL RECURRENT REDUCIBLE GREATER THAN 10cm (Abdomen) Diagnosis: Preoperative examination Incisional hernia, without obstruction or gangrene (Preoperative examination [Z01.818]) (Incisional hernia, without obstruction or gangrene [K43.2]) Surgeons: Augie Persaud MD Responsible Provider: Charmaine Jiang MD Anesthesia Type: general ASA Status: 3 Anesthesia Type: general Airway Type: ETT Last Vitals Vitals Value Taken Time BP 143/62 12/01/24 13:43 Temp 36CC 12/01/24 13:43 Pulse 74 12/01/24 13:43 Resp 16 12/01/24 13:38 SpO2 97 % 12/01/24 13:38 Post Anesthesia Patient Status Patient Evaluation: PACU. PACU/ICU Patient Condition: stable. Anticipated Disposition: inpatient floor planned admission. Neurological Status: sleepy but arousable. Pulmonary Status: breathing comfortably on room air Airway Control: returned to baseline unsupported. Cardiovascular Status: stable. Pain Management: clinically adequate Postoperative Hydration: acceptable. Intraoperative Events: (Hypertension/Labile blood pressure.) Post Operative Nausea/Vomiting Status: no significant post operative nausea or vomiting Recommendation: continue current plan of care. Anesthesia Observations No Documentation SIGNATURE: Charmaine Jiang MD PATIENT NAME: Corinne Correa DATE: December 01, 2024 TIME: 1:43 PM CSN: [id number] Normal [facility] ANES PRE-OPon 12-01-2024 ANES PRE-OP HNO ID: [id number] Author: CHARMAINE JIANG MD Service: ? Author Type: Physician Type: Anesthesia Preprocedure Evaluation Filed: 12/01/2024 07:21 Note Text: ANESTHESIOLOGY DAY OF SURGERY NOTE : 1950 Procedure Information Date/Time: 12/01/24729 Procedure: HERNIORRHAPHY INCISIONAL ABDOMINAL RECURRENT REDUCIBLE GREATER THAN 10cm (Abdomen) Location: [facility] Surgeons: Augie Persaud MD Estimated body mass index is 37.88 kg/m? as calculated from the following: Height as of this encounter: 177.8 cm (5' 10). Weight as of this encounter: 119.7 kg (264 lb). Most recent hematocrit and potassium results: Hematocrit 36.1 11/24/2024 Potassium 4.6 11/24/2024 Relevant Problems ANESTHESIA (+) ALICIA on CPAP CARDIO (+) Essential hypertension (+) Heart murmur ENDO (+) Hypothyroidism (+) Type 2 diabetes mellitus (HCC) PULMONARY (+) ALICIA on CPAP I - PHYSICAL EVALUATION AIRWAY Patient intubated: No. Tracheostomy tube not present Mallampati: III. TM distance: >3 FB. Neck ROM: full ROM without neurological symptoms. Mouth openin FB. Short neck: yes. Thick neck: yes Microretrognathia/Micron agthia/Recessed Chin: No DENTAL Dental findings: teeth intact. Additional exam findings: yes. ABDOMINAL Obese: obesity present. Abdomen: soft. II - ANESTHESIA PLAN ASA Score: 3 Anesthetic Plan: general Airway type: ETT The patient is not a current smoker. NPO Status: adequate Monitoring Plan Monitoring plan: standard ASA. Post Procedure Analgesic Plan Postoperative analgesic plan: multimodal analgesia. Informed Consent Anesthetic risks, benefits, alternatives, personnel and consent discussed: yes. Patient / Responsible [employer] agrees to proceed: yes Patient / Surrogate agrees to blood products: Yes DNR status not reviewed with patient and/or family prior to surgery. Significant changes in the patient condition since the History and Physical, not otherwise documented in primary service progress note: no. Potential Anesthesia issues that may suggest increased risk of complications or contraindication to planned procedure: none. Vitals Value Taken Time BP 182/84 12/01/24 06:12 Pulse 72 12/01/24 05:55 Resp 18 12/01/24 05:55 Temp 37.1 ?C (98.8 ?F) 12/01/24 05:55 SpO2 93 % 12/01/24 05:55 Facility-Administered Medications as of 12/01/2024 Medication Dose Route Frequency heparin 5,000 Units injection 5,000 Units SUBCUTANEOUS ONCE lidocaine (PF) 10 mg/mL (1 %) 1-2 mg injection (XYLOCAINE) 0.1-0.2 mL INTRADERMAL PRN Or lidocaine 1% 0.25 mL subcutaneous j-tip syringe (XYLOCAINE) 0.25 mL SUBCUTANEOUS PRN lactated ringers iv infusion 5-30 mL/hr INTRAVENOUS CONTINUOUS NaCl 0.9% iv flush bag 20 mL INTRAVENOUS PRN ceFAZolin 2 g in dextrose (iso-osmotic) 50 mL (ANCEF,KEFZOL) 2 g INTRAVENOUS Pre-Op Once Outpatient Medications as of 12/01/2024 Medication Sig amLODIPine (NORVASC) 5 mg tablet Take 5 mg by mouth once daily. levothyroxine (SYNTHROID) 25 mcg tablet Take 25 mcg by mouth once daily. atorvastatin (LIPITOR) 20 mg tablet 20 mg. metoprolol succinate ER (TOPROL XL) 25 mg 24 hr tablet 25 mg. metFORMIN (GLUCOPHAGE) 1,000 mg tablet 1,000 mg. semaglutide (OZEMPIC) 1 mg/dose (4 mg/3 mL) pen 1 mg. metoprolol tartrate, short acting, (LOPRESSOR) 25 mg tablet Take 25 mg by mouth every morning. I have interviewed and examined the patient. I have reviewed the medical record and/or the pre-anesthesia evaluation, pertinent labs, and test results. This contains updated information obtained within 48 hours of Surgery/Procedure. SIGNATURE: Charmaine Jiang MD PATIENT NAME: Corinne Correa DATE: December 01, 2024 TIME: 7:20 AM CSN: [id number] Normal [facility] ARTERIAL BLOOD GASES WITH IO NIZED MAGNESIUMon 12-01-2024 Base deficit (BldA) [Moles/Vol] -3 mmol/L Low -2-[address] [facility] Comment on above: Order Comment: Speci men Type: ARTERIAL BLOOD SPECIMENOrdering Facility: [facility] Address: [address] [place] [address] Performed By: #### A LLMG ####[facility] [id number] [place] [address] [place] Calcium.ionized (Bld) [Mass/Vol] 1.14 mmol/L Normal 1.08-1.[address] [facility] Comment on above: Order Comment: Speci men Type: ARTERIAL BLOOD SPECIMENOrdering Facility: [facility] Address: [address] [place] [address] Performed By: #### A LLMG ####[facility] [id number] [place] [address] [place] Calcium.ionized adjusted to pH 7.4 (BldA) [Moles/Vol] 1.08 mmol/L Normal 1.08-1.[address] [facility] Comment on above: Order Comment: Speci men Type: ARTERIAL BLOOD SPECIMENOrdering Facility: [facility] Address: [address] [place] [address] Performed By: #### A LLMG ####[facility] LABIA [id number] [place] [address] [place] Carboxyhemoglobin (BldA) [Mass fraction] 1.1 % Normal 0.0-2.[address] [facility] Comment on above: Order Comment: Speci men Type: ARTERIAL BLOOD SPECIMENOrdering Facility: [facility] Address: [address] [place] [address] Result Comment: Carb oxyhemoglobin Reference Range for Smokers: 2.0-8.0% Performed By: #### A LLMG ####[facility] LABCLIA [id number] [address] [address] [place] CO2 (Bld) [Partial pressure] 48 mm Hg High 36-[address] [facility] Comment on above: Order Comment: Speci men Type: ARTERIAL BLOOD SPECIMENOrdering Facility: [facility] Address: [address] [place] [address] Performed By: #### A LLMG ####[facility] LABCLIA [id number] [place] [address] [place] CO2 adjusted to patient's actual temperature (Bld) [Partial pressure] 48 mmHg High 36-[address] [facility] Comment on above: Order Comment: Speci men Type: ARTERIAL BLOOD SPECIMENOrdering Facility: [facility] Address: [address] [place] [address] Performed By: #### A LLMG ####[facility] LABCLIA [id number] [place] [address] [place] Glucose [Mass/Vol] 244 mg/dL High 60-[address] [facility] Comment on above: Order Comment: Speci men Type: ARTERIAL BLOOD SPECIMENOrdering Facility: [facility] Address: [address] [place] [address] Performed By: #### A LLMG ####[facility] LABCLIA [id number] [place] [id number] [place] HCO3 (Bld) [Moles/Vol] 23 mmol/L Normal 22-26 [facility] Comment on above: Order Comment: Speci men Type: ARTERIAL BLOOD SPECIMENOrdering Facility: [facility] Address: [address] [place] [address] Performed By: #### A LLMG ####[facility] LABCLIA [id number] [place] [address] [place] Hematocrit (Bld) [Volume fraction] 37.2 % Low 39.0-51.[address] [facility] Comment on above: Order Comment: Speci men Type: ARTERIAL BLOOD SPECIMENOrdering Facility: [facility] Address: [address] [place] [address] Performed By: #### A LLMG ####[facility] LABIA [id number] [place] [address] [place] Hemoglobin (Bld) [Mass/Vol] 12.1 g/dL Low 13.0-17.[address] [facility] Comment on above: Order Comment: Speci men Type: ARTERIAL BLOOD SPECIMENOrdering Facility: [facility] Address: [address] [place] [address] Performed By: #### A LLMG ####[facility] LABIA [id number] [place] [address] [place] Lactate [Moles/Vol] 1.0 mmol/L Normal 0.5-2.2 [facility] Comment on above: Order Comment: Speci men Type: ARTERIAL BLOOD SPECIMENOrdering Facility: [facility] Address: [address] [place] [address] Performed By: #### A LLMG ####[facility] LABIA [id number] [place] [address] [place] Magnesium [Moles/Vol] 0.37 mmol/L Low 0.45-0.60 [facility] Comment on above: Order Comment: Speci men Type: ARTERIAL BLOOD SPECIMENOrdering Facility: [facility] Address: [address] [place] [address] Performed By: #### A LLMG ####[facility] LABIA [id number] [place] [id number] [place] Methemoglobin (Bld) [Mass fraction] 1.2 % Normal 0.0-1.[address] [facility] Comment on above: Order Comment: Speci men Type: ARTERIAL BLOOD SPECIMENOrdering Facility: [facility] Address: [address] [place] [address] Performed By: #### A LLMG ####[facility] LABCLIA [id number] [address] [place] [address] [place] Oxygen (Bld) [Partial pressure] 127 mm Hg High 85-[address] [facility] Comment on above: Order Comment: Speci men Type: ARTERIAL BLOOD SPECIMENOrdering Facility: [facility] Address: [address] [place] [address] Performed By: #### A LLMG ####[facility] LABCLIA [id number] [place] [address] [place] Oxygen adjusted to patient's actual temperature (Bld) [Partial pressure] 127 mmHg High 85-[address] [facility] Comment on above: Order Comment: Speci men Type: ARTERIAL BLOOD SPECIMENOrdering Facility: [facility] Address: [address] [place] [address] Performed By: #### A LLMG ####[facility] LABCLIA [id number] [place] [address] [place] Oxyhemoglobin (BldA) [Mass fraction] 96 % Normal 95-[address] [facility] Comment on above: Order Comment: Speci men Type: ARTERIAL BLOOD SPECIMENOrdering Facility: [facility] Address: [address] [place] [address] Performed By: #### A LLMG ####[facility] LABCLIA [id number] [address] [address] [place] pH (Bld) 7.30 [pH] Low 7.35-7.[address] [facility] Comment on above: Order Comment: Speci men Type: ARTERIAL BLOOD SPECIMENOrdering Facility: [facility] Address: [address] [place], [place] [address] Performed By: #### A LLMG ####[facility] LABCLIA [id number] [place] [address] [place] pH adjusted to patient's actual temperature (Bld) 7.30 Low 7.35-7.[address] [facility] Comment on above: Order Comment: Speci men Type: ARTERIAL BLOOD SPECIMENOrdering Facility: [facility] Address: [address] [place] [address] Performed By: #### A LLMG ####[facility] LABIA [id number] [place] [address] [place] Potassium [Moles/Vol] 4.6 mmol/L Normal 3.5-5.0 [facility] Comment on above: Order Comment: Speci men Type: ARTERIAL BLOOD SPECIMENOrdering Facility: [facility] Address: [address] [place] [address] Performed By: #### A LLMG ####[facility] [id number] [place] [address] [place] Sodium [Moles/Vol] 138 mmol/L Normal 136-[address] [facility] Comment on above: Order Comment: Speci men Type: ARTERIAL BLOOD SPECIMENOrdering Facility: [facility] Address: [address] [place] [address] Performed By: #### A LLMG ####[facility] [id number] [place] [address] [place] BRIEF OP NOTon 12-01-2024 BRIEF OP NOT HNO ID: [id number] Author: NURIS PAEZ MD Service: General Surgery Author Type: Fellow Type: Brief Op Note Filed: 12/01/2024 12:59 Note Text: BRIEF OPERATIVE / PROCEDURE NOTE LOG ID: [id number] SURGERY/PROCEDURE DATE: 12/01/2024 INCISION/PROCEDURE START TIME: 8:03 AM INCISION CLOSE/PROCEDURE END TIME: 12:38 PM SURGEON(S)/PROCEDURALIST (S) AND QUALITY MANAGEMENT NURSE(S): Surgeons and Role: * Augie Persaud MD - Primary * Nuris Paez MD - Fellow No Additional Staff Preoperative Concerns /Risks: None SURGERY/PROCEDURE(S): Myofascial advancement flap of the transversus abdominis (TAR) Ventral incisional Hernia Repair with mesh Lysis of adhesions ANESTHESIA: General FINDINGS: 22 X 27 CM VENTRAL INCISIONAL HERNIA ESTIMATED BLOOD LOSS: 300 mls SPECIMENS: None Intraoperative Complication/Events: None DRAINS: 19 CENTRAL [place] X3 #1 LUQ - Retromuscular #2 LUQ - Retromuscular #3 RLQ - subcutaneous CLOSURE TECHNIQUE: Primary PRE-OP/PRE-PROCEDURE DIAGNOSIS: Ventral incisional Hernia POST-OP/POST-PROCEDURE DIAGNOSIS: Same as Preop Patient was accompanied to the next level of care by a licensed practitioner from the surgical team pending completion of this brief op note (or operative note) SIGNATURE: Nuris Paez MD PATIENT NAME: Corinne Correa DATE: December 01, 2024 TIME: 12:[address] [facility] Bacteria Spec Anaerobe Culto n 12-01-2024 Bacteria identified Anaer cx Nom (Unsp spec) Negative Normal [facility] Comment on above: Performed By: #### 6 35-3, 580-1, 6462-6 ####[facility] LABCLIA [id number] [place] [address] [place] Bacteria Wnd Culton 12-02-19 25 Bacteria identified Cx Nom (Wound) ORGANISM ID: 1 One colony Coagulase negative staphylococcus No further workup GRAM STAIN: No organisms seen No Polymorphonuclear Leukocytes Abnormal [facility] Comment on above: Performed By: #### 6 35-3, 580-1, 6462-6 ####[facility] LABCLIA [id number] [address] [address] [place] Basic metabolic 2000 panelon 12-01-2024 Anion gap [Moles/Vol] 16 mmol/L High 8-15 [facility] Comment on above: Order Comment: Speci men Type: BLOOD SPECIMENOrdering Facility: [facility] Address: [address] [place] [address] Performed By: #### 1 9123-9, 97862-5, 2776-04 ####[facility] LABCLIA [id number] [address] [address] [place] Calcium [Mass/Vol] 8.0 mg/dL Low 8.5-10.[address] [facility] Comment on above: Order Comment: Speci men Type: BLOOD SPECIMENOrdering Facility: [facility] Address: [address] [place] [address] Performed By: #### 1 9123-9, , 2776-04 ####[facility] LABCLIA [id number] [place] [id number] [place] Chloride [Moles/Vol] 102 mmol/L Normal 98-107 [facility] Comment on above: Order Comment: Speci men Type: BLOOD SPECIMENOrdering Facility: [facility] Address: [address] [place] [address] Performed By: #### 1 9123-9, , 2776-04 ####[facility] LABCLIA [id number] [place] [id number] [place] CO2 [Moles/Vol] 18 mmol/L Low 22-[address] [facility] Comment on above: Order Comment: Speci men Type: BLOOD SPECIMENOrdering Facility: [facility] Address: [address] [place] [address] Performed By: #### 1 9123-9, , 2776-04 ####[facility] LABCLIA [id number] [address] [address] [place] Creatinine [Mass/Vol] 1.07 mg/dL Normal 0.73-1.22 [facility] Comment on above: Order Comment: Speci men Type: BLOOD SPECIMENOrdering Facility: [facility] Address: [address] [place], [place] [address] Performed By: #### 1 9123-9, 88805-4, 2776-04 ####[facility] LABCLIA [id number] [place] [address] [place] eGFRcr SerPlBld CKD-EPI 2020 73 mL/min/1.73m??? Normal >=[address] [facility] Comment on above: Order Comment: Lester hayden Type: BLOOD SPECIMENOrdering Facility: [facility] Address: [address] [place] [address] Result Comment: Madeline mated Glomerular Filtration Rate (eGFR) is calculated using the 2020 CKD-EPI creatinine equation. This equation utilizes serum creatinine, sex, and age as parameters. The creatinine assay has traceable calibration to isotope dilution-mass spectrometry. Refer to KDIGO guidelines for clinical interpretation. In patients with unstable renal function, e.g. those with acute kidney injury, the eGFR may not accurately reflect actual GFR. Performed By: #### 1 9123-9, 33395-4, 2777-1 ####[facility] LABIA [id number] [place] [address] [place] Glucose [Mass/Vol] 244 mg/dL High 74-[address] [facility] Comment on above: Order Comment: Lester hayden Type: BLOOD SPECIMENOrdering Facility: [facility] Address: [address] [place] [address] Result Comment: The [place] [employer] (ADA) provides guidance for cutoff values for fasting glucose and random glucose. The ADA defines fasting as no caloric intake for at least 8 hours. Fasting plasma glucose results between 100 to 125 mg/dL indicate increased risk for diabetes (prediabetes). Fasting plasma glucose results greater than or equal to 126 mg/dL meet the criteria for diagnosis of diabetes. In the absence of unequivocal hyperglycemia, results should be confirmed by repeat testing. In a patient with classic symptoms of hyperglycemia or hyperglycemic crisis, random plasma glucose results greater than or equal to 200 mg/dL meet the criteria for diagnosis of diabetes. Reference: Standards of Medical Care in Diabetes 2016, [place] [employer]. Diabetes Care. 2016.39(Suppl 1). Performed By: #### 1 9123-9, 49344-3, 2777-1 ####[facility] LABIA [id number] [address] [address] [place] Potassium [Moles/Vol] 4.9 mmol/L Normal 3.7-5.1 [facility] Comment on above: Order Comment: Speci men Type: BLOOD SPECIMENOrdering Facility: [facility] Address: [address] [place] [address] Performed By: #### 1 9123-9, 62429-6, 2777-1 ####[facility] LABCLIA [id number] [place] [address] [place] Sodium [Moles/Vol] 136 mmol/L Normal 136-[address] [facility] Comment on above: Order Comment: Speci men Type: BLOOD SPECIMENOrdering Facility: [facility] Address: [address] [place] [address] Performed By: #### 1 9123-9, 63929-7, 2777-1 ####[facility] LABCLIA [id number] [place] [address] [place] Urea nitrogen [Mass/Vol] 27 mg/dL High 9-[address] [facility] Comment on above: Order Comment: Speci men Type: BLOOD SPECIMENOrdering Facility: [facility] Address: [address] [place] [address] Performed By: #### 1 9123-9, 65363-8, 2777-1 ####[facility] LABCLIA [id number] [place] [address] [place] CBC W Auto Differential pane l (Bld)on 12-01-2024 Basophils (Bld) [#/Vol] 10*3/uL Normal <0.11 [facility] Comment on above: Order Comment: Speci men Type: BLOOD SPECIMEN Ordering Facility: [facility] Address: [address] [place] [address] Performed By: #### 1 9123-9, 2777-1, 54437-1 #### [facility] CLIA [id number] [id number] [address] [place] Basophils/100 WBC (Bld) 0.1 % Normal [facility] Comment on above: Order Comment: Speci men Type: BLOOD SPECIMEN Ordering Facility: [facility] Address: [address] [place] [address] Performed By: #### 1 9123-9, 2777, 59933-5 #### [facility] CLIA [id number] [address] [place] [address] [place] Differential cell count method Nom (Bld) Auto Normal [facility] Comment on above: Order Comment: Speci men Type: BLOOD SPECIMEN Ordering Facility: [facility] Address: [address] [place] [address] Performed By: #### 1 9123-9, 27709-29, #### [facility] CLIA [id number] [address] [place] [address] [place] Eosinophils (Bld) [#/Vol] 10*3/uL Normal <0.[address] [facility] Comment on above: Order Comment: Speci men Type: BLOOD SPECIMEN Ordering Facility: [facility] Address: [address] [place] [address] Performed By: #### 1 9123-9, 27709-29, #### [facility] CLIA [id number] [address] [place] [address] [place] Eosinophils/100 WBC (Bld) 0.0 % Normal [facility] Comment on above: Order Comment: Speci men Type: BLOOD SPECIMEN Ordering Facility: [facility] Address: [address] [place] [address] Performed By: #### 1 9123-9, 27709-29, #### [facility] CLIA [id number] [address] [place] [address] [place] Erythrocyte distribution width (RBC) [Ratio] 13.6 % Normal 11.5-15.[address] [facility] Comment on above: Order Comment: Speci men Type: BLOOD SPECIMEN Ordering Facility: [facility] Address: [address] [place] [address] Performed By: #### 1 9123-9, 27709-29, 47494-9 #### [facility] CLIA [id number] [address] [place], [place] [address] [place] Hematocrit (Bld) [Volume fraction] 37.8 % Low 39.0-51.[address] [facility] Comment on above: Order Comment: Speci men Type: BLOOD SPECIMEN Ordering Facility: [facility] Address: [address] [place] [address] Performed By: #### 1 9123-9, 2777, #### [facility] CLIA [id number] [address] [place] [address] [place] Hemoglobin (Bld) [Mass/Vol] 12.6 g/dL Low 13.0-17.[address] [facility] Comment on above: Order Comment: Speci men Type: BLOOD SPECIMEN Ordering Facility: [facility] Address: [address] [place] [address] Performed By: #### 1 9123-9, 27709-29, #### [facility] CLIA [id number] [address] [place] [address] [place] Immature granulocytes (Bld) [#/Vol] 10*3/uL Normal <0.[address] [facility] Comment on above: Order Comment: Speci men Type: BLOOD SPECIMEN Ordering Facility: [facility] Address: [address] [place], [place] [address] Performed By: #### 1 9123-9, 27709-29, 65443-3 #### [facility] CLIA [id number] [address] [place] [address] [place] Immature granulocytes/100 WBC (Bld) 0.2 % Normal [facility] Comment on above: Order Comment: Speci men Type: BLOOD SPECIMEN Ordering Facility: [facility] Address: [address] [place] [address] Performed By: #### 1 9123-9, 2777, 50464-7 #### [facility] CLIA [id number] [address] [place] [address] [place] Lymphocytes (Bld) [#/Vol] 0.65 10*3/uL Low 1.00-4.[address] [facility] Comment on above: Order Comment: Speci men Type: BLOOD SPECIMEN Ordering Facility: [facility] Address: [address] [place] [address] Performed By: #### 1 9123-9, 27709-29, #### [facility] CLIA [id number] [address] [place] [address] [place] Lymphocytes/100 WBC (Bld) 6.3 % Normal [facility] Comment on above: Order Comment: Speci men Type: BLOOD SPECIMEN Ordering Facility: [facility] Address: [address] [place] [address] Performed By: #### 1 9123-9, 27709-29, #### [facility] CLIA [id number] [address] [place] [address] [place] MCH (RBC) [Entitic mass] 29.5 pg Normal 26.0-34.[address] [facility] Comment on above: Order Comment: Speci men Type: BLOOD SPECIMEN Ordering Facility: [facility] Address: [address] [place] [address] Performed By: #### 1 9123-9, 2777, 41850-4 #### [facility] CLIA [id number] [address] [place] [address] [place] MCHC (RBC) [Mass/Vol] 33.3 g/dL Normal 30.5-36.0 [facility] Comment on above: Order Comment: Speci men Type: BLOOD SPECIMEN Ordering Facility: [facility] Address: [address] [place] [address] Performed By: #### 1 9123-9, 2777-1, 26696-7 #### [facility] CLIA [id number] [address] [place] [address] [place] MCV (RBC) [Entitic vol] 88.5 fL Normal 80.0-100.0 C [facility] Comment on above: Order Comment: Speci men Type: BLOOD SPECIMEN Ordering Facility: [facility] Address: [address] [place] [address] Performed By: #### 1 9123-9, 2777-1, 50253-4 #### [facility] CLIA [id number] [address] [place] [address] [place] Monocytes (Bld) [#/Vol] 1.15 10*3/uL High <0.[address] [facility] Comment on above: Order Comment: Speci men Type: BLOOD SPECIMEN Ordering Facility: [facility] Address: [address] [place] [address] Performed By: #### 1 9123-9, 27709-29, #### [facility] CLIA [id number] [address] [place] [address] [place] Monocytes/100 WBC (Bld) 11.2 % Normal C [facility] Comment on above: Order Comment: Speci men Type: BLOOD SPECIMEN Ordering Facility: [facility] Address: [address] [place] [address] Performed By: #### 1 9123-9, 2777, 31936-2 #### [facility] [facility] CLIA [id number] [address] [place] [address] [place] Neutrophils (Bld) [#/Vol] 8.45 10*3/uL High 1.45-7.[address] [facility] Comment on above: Order Comment: Speci men Type: BLOOD SPECIMEN Ordering Facility: [facility] Address: [address] [place] [address] Performed By: #### 1 9123-9, 2777-1, 59665-1 #### [facility] CLIA [id number] [address] [place] [address] [place] Neutrophils/100 WBC (Bld) 82.2 % Normal [facility] Comment on above: Order Comment: Speci men Type: BLOOD SPECIMEN Ordering Facility: [facility] Address: [address] [place] [address] Performed By: #### 1 9123-9, 2777-, 90838-1 #### [facility] CLIA [id number] [address] [place] [address] [place] Nucleated RBC (Bld) [#/Vol] 10*3/uL Normal <0.[address] [facility] Comment on above: Order Comment: Speci men Type: BLOOD SPECIMEN Ordering Facility: [facility] Address: [address] [place] [address] Performed By: #### 1 9123-9, 2777, 23324-3 #### [facility] CLIA [id number] [address] [place] [address] [place] Nucleated RBC/100 WBC (Bld) [Ratio] 0.0 /[address] [facility] Comment on above: Order Comment: Speci men Type: BLOOD SPECIMEN Ordering Facility: [facility] Address: [address] [place] [address] Performed By: #### 1 9123-9, 2777-, 89092-4 #### [facility] CLIA [id number] [address] [place] [address] [place] Platelet mean volume (Bld) [Entitic vol] 10.8 fL Normal 9.0-12.[address] [facility] Comment on above: Order Comment: Speci men Type: BLOOD SPECIMEN Ordering Facility: [facility] Address: [address] [place] [address] Performed By: #### 1 9123-9, 2777-1, 03031-9 #### [facility] CLIA [id number] [address] [place] [address] [place] Platelets (Bld) [#/Vol] 246 10*3/uL Normal 150-[address] [facility] Comment on above: Order Comment: Speci men Type: BLOOD SPECIMEN Ordering Facility: [facility] Address: [address] [place] [address] Performed By: #### 1 9123-9, 2777-1, 44884-4 #### [facility] CLIA [id number] [address] [place] [address] [place] RBC (Bld) [#/Vol] 4.27 10*6/uL Normal 4.20-6.00 [facility] Comment on above: Order Comment: Speci men Type: BLOOD SPECIMEN Ordering Facility: [facility] Address: [address] [place] [address] Performed By: #### 1 9123-9, 2777-1, 22607-5 #### [facility] CLIA [id number] [address] [place] [address] [place] WBC (Bld) [#/Vol] 10.28 10*3/uL Normal 3.70-11.00 [facility] Comment on above: Order Comment: Speci men Type: BLOOD SPECIMEN Ordering Facility: [facility] Address: [address] [place] [address] Performed By: #### 1 9123-9, 2777-1, 42392-7 #### [facility] CLIA [id number] [address] [place] [address] [place] Fungus Spec Culton 5 Fungus identified Cx Nom (Unsp spec) CULTURE, FUNGAL: No Fungus isolated after [address] [facility] Comment on above: Performed By: #### 6 35-3, 580-1, 6462-6 ####[facility] [id number] [place] [id number] [place] Magnesium SerPl-mCncon 12-01 Magnesium [Mass/Vol] 1.7 mg/dL Normal 1.7-2.3 [facility] Comment on above: Order Comment: Speci men Type: BLOOD SPECIMENOrdering Facility: [facility] Address: [address] [place] [address] Performed By: #### 1 9123-9, 35291-7, 2777-1 ####[facility] [id number] [address] [place] OPERATIVE NOon 12-01-2024 OPERATIVE NO HNO ID: [id number] Author: AUGIE PERSAUD MD Service: General Surgery Author Type: Physician Type: Operative Report Filed: 12/02/2024 11:44 Note Text: OPERATIVE/PROCEDURE REPORT LOG ID: [id number] Surgery/Procedure Date: 12/01/2024 Incision/Procedure Start Time: 8:03 AM Incision Close/Procedure End Time: 12:38 PM Surgeon(s)/Proceduralist (s) and Migrant Leader(s): Surgeons and Role: * Augie Persaud MD - Primary * Nuris Paez MD - Fellow No Additional Staff Please note, there was no available qualified resident. Dr. Paez was my commercial lines account assistant given the complexity of the procedure for myofascial advancement flaps. Procedure(s): 1. Open right myofascial advancement flap. 2. Open left myofascial advancement flap. 3. Repair of recurrent incarcerated incisional hernia. 4. Implantation of 30x30 cm of Prolene mesh. 5. Resection of skin and subcutaneous tissue. Anesthesia: General Pre-Op/Pre-Procedure Diagnosis: Recurrent incarcerated incisional hernia Post-Op/Post-Procedure Diagnosis: Recurrent incarcerated incisional hernia Operative Findings: - incisional hernia measuring 22cm wide by 27cm long - diffuse but loose intraabdominal adhesions with focally dense areas Operative Indication: Corinne Correa is a 74 year old male who presents with a symptomatic incisional hernia, having undergone previous repair, including a robotic repair complicated by a missed enterotomy requiring takeback, open abdomen and mesh excision. Current symptoms include pain and a large bulge with an open wound. We discussed the risks, benefits, alternatives, and potential complications, and the patient agreed to proceed. Procedure Details After bringing the patient to the operating room a preoperative safety huddle was performed answering all patient and staff questions/concerns. Plans for appropriate VTE and antibiotic prophylaxis were confirmed. After general endotracheal anesthesia was administered, a delacruz catheter was placed, and the patient was then appropriately positioned with padding and safety belts. Next, the abdomen was prepped and draped in the usual sterile fashion. Finally, a time out was performed before incision. We then began with a midline incision, entering the abdomen sharply. I then took down all the bowel and omentum off of the entire anterior abdominal wall. Intraabdominal adhesions were diffuse and mostly loose with a few focal areas that were dense. We popped into a few pockets of serous fluid - one of which was cultured. We then freed the abdominal wall entirely but the rest of the bowel was completely frozen so we left it alone. There were no serosal tears or enterotomies. ]= After confirming hemostasis, I then placed a towel over the viscera. I measured the defect to be 22 cm wide by 27 cm long. This certainly would not come back together primarily. Then, in order to repair this, I started on the left side, incising the posterior rectus sheath, it from the rectus muscle, carefully preserving neurovascular bundles. Then, I incised the transverse abdominis muscle to extend the retromuscular dissection in the preperitoneal plane, heading back to the psoas, then along the costal margin to the central tendon of the diaphragm and into the space of Retzius inferiorly. This gave us excellent advancement. Next, I began on the right side, incising the posterior rectus sheath, off the rectus muscle, carefully preserving neurovascular bundles, incising the transverse abdominis muscle, and entering the preperitoneal plane. The preperitoneal plane was matured back to the psoas and then along the costal margin down to the central tendon of the diaphragm and heading down into the space of Retzius as well. We then closed posterior rectus sheath, completely excluding the viscera from the large preperitoneal pocket. Meticulous hemostasis was then confirmed. Next, I fashioned a 30x30 cm piece of Prolene mesh in a joanne configuration, tucking it under the xiphoid, pubis, and costal margin to fill the retromuscular pocket. This gave us excellent coverage. Two drains were then placed above the mesh and secured at the skin before closing the anterior fascia. I then closed the midline with figure of 8's using #1 PDS. Plateau pressure increased from 21 to 25cm H20. Finally, I removed the a lot of excess skin, scar, open wound and hernia sac to that had become devascularized. A subcutaneous drain was placed. After confirming that all final counts were correct, the skin was closed with 2-0 nylon mattress sutures. The patient was awoken from anesthesia and taken to the recovery room in stable condition. Please note, Dr. Augie Persaud, the attending surgeon was present and scrubbed for the procedure. Estimated Blood Loss: 300 mls Specimens: None Implantable Devices: [id number] Prolene mesh Drains: 2 drains above the mesh, below the muscle; 1 subcutan (more content not included)... Normal [facility] Phosphate SerPl-mCncon 12-01 Phosphate [Mass/Vol] 5.1 mg/dL High 2.7-4.8 [facility] Comment on above: Order Comment: Speci men Type: BLOOD SPECIMENOrdering Facility: [facility] Address: [address] [place] [address] Performed By: #### 1 9123-9, 61175-5, 2777-1 ####[facility] [id number] [address] [place] CNPMyranda 11-25-2024 CNPN Telephone (PREANME) -------- CORINNE CORREA ([id number]) 1950 Date Time Provider Department 11/25/24 EUGENIA FERREIRA During your visit today, we recorded the following information about you: Eugenia Ferreira APRN.CNP 11/25/2024 9:09 AM Signed Joss, I saw this mutual patient in [facility] on 11/25/2024. Corinne Correa 1950 [id number] is scheduled for: HERNIORRHAPHY INCISIONAL ABDOMINAL RECURRENT REDUCIBLE GREATER THAN 10cm with Dr. Persaud on 12/01/24. Patient's hemoglobin A1C is 8.2% - is patient still able to proceed? HEMOGLOBIN A1C (11/24/2024 3:02 PM) Thank you, Eugenia Ferreira APRN.ARNIE [facility] Allergies As of Date: 11/25/2024 (No Known Allergies) Date Reviewed: 11/24/2024 Reviewed by: Eugenia Ferreira APRN.CNP - Fully Assessed Reason for Visit: Preparations For Surgery [898] Prescriptions as of 12/03/2024 - oxyCODONE IR (ROXICODONE) 5 mg immediate release tablet Take 1 tablet by mouth every 8 hours as needed for pain for up to 3 days. Acute pain - methocarbamol (ROBAXIN) 500 mg tablet Take 1 tablet by mouth four times daily for 10 days. - amLODIPine (NORVASC) 5 mg tablet Take 5 mg by mouth once daily. - levothyroxine (SYNTHROID) 25 mcg tablet Take 25 mcg by mouth once daily. - atorvastatin (LIPITOR) 20 mg tablet 20 mg. - metoprolol succinate ER (TOPROL XL) 25 mg 24 hr tablet 25 mg. - metoprolol tartrate, short acting, (LOPRESSOR) 25 mg tablet Take 25 mg by mouth every morning. - metFORMIN (GLUCOPHAGE) 1,000 mg tablet 1,000 mg. - semaglutide (OZEMPIC) 1 mg/dose (4 mg/3 mL) pen 1 mg. Facility-Administered Medications as of 12/03/2024 - insulin lispro injection (rapid acting) (ADMElog) - prochlorperazine 5 mg injection (COMPAZINE) - metoprolol succinate ER 25 mg tab(s) (TOPROL XL) - atorvastatin 20 mg tab(s) (LIPITOR) - amLODIPine 5 mg tab(s) (NORVASC) - thiamine 100 mg tab(s) (VITAMIN B1) - multivitamin-ferrous fumarate-folic acid 1 tablet (CENTRUM) - folic acid 1 mg tab(s) - diazePAM 5 mg injection (VALIUM) - diazePAM 10 mg injection (VALIUM) - methocarbamol 1 g injection (ROBAXIN) - lactated ringers iv infusion - pantoprazole DR 40 mg tab(s) (PROTONIX) - polyethylene glycol 3350 17 g packet - ondansetron (PF) 4 mg injection (ZOFRAN) - tamsulosin 0.4 mg cap(s) (FLOMAX) - acetaminophen 1,000 mg tab(s) (TYLENOL) - oxyCODONE IR 5-10 mg tab(s) (ROXICODONE) - HYDROmorphone 0.2 mg injection (DILAUDID) - heparin 5,000 Units injection - HYDROmorphone PYTHON PROGRAMMER 0.5 mg/mL in NaCl 0.9% 100 mL - naloxone 0.1 mg injection (NARCAN) - NaCl 0.9% iv infusion - dextrose 15 gram/32 mL 15 g (TRUEPLUS) - glucagon 1 mg injection - dextrose 10% iv bolus Problem List As Of Date 11/25/2024 Noted Resolved Anemia [D64.9] 03/26/2024 Anxiety disorder [F41.9] 03/26/2024 Essential hypertension [I10] 03/05/2024 Gastroesophageal reflux disease without esophag*03/26/2024 11/24/2024 History of basal cell carcinoma (BCC) [Z85.828] 11/14/2024 History of ventral hernia [Z87.19] 11/14/2024 Hyperlipidemia [E78.5] 03/05/2024 Hypothyroidism [E03.9] 03/05/2024 Major depression, single episode [F32.9] 03/26/2024 ALICIA on CPAP [G47.33] 11/14/2024 Oropharyngeal dysphagia [R13.12] 03/06/2024 Type 2 diabetes mellitus (HCC) [E11.9] 03/05/2024 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] 03/05/2024 History of tracheostomy [Z98.890] 11/24/2024 Heart murmur [R01.1] 11/24/2024 Alcohol use [F10.90] 11/24/2024 Encounter Status:Closed by EUGENIA FERREIRA on 12/03/24 Normal [facility] CBC W Auto Differential pane l (Bld)on 11-24-2024 Basophils (Bld) [#/Vol] 0.04 10*3/uL Normal <0.[address] [facility] Comment on above: Order Comment: Speci men Type: BLOOD SPECIMENOrdering Facility: [facility] Address: [address] [place] [address] Performed By: #### 5 7021-8 ####[facility] MILLWMNLIA [id number] [place] [address] [place] Basophils/100 WBC (Bld) 0.6 % Normal [facility] Comment on above: Order Comment: Speci men Type: BLOOD SPECIMENOrdering Facility: [facility] Address: [address] [place] [address] Performed By: #### 5 7021-8 ####[facility]WMNLIA [id number] [place] [address] [place] Differential cell count method Nom (Bld) Auto Normal [facility] Comment on above: Order Comment: Speci men Type: BLOOD SPECIMENOrdering Facility: [facility] Address: [address] [place] [address] Performed By: #### 5 7021-8 ####[facility] MEMORIALLIA [id number] [place] [address] [place] Eosinophils (Bld) [#/Vol] 0.21 10*3/uL Normal <0.[address] [facility] Comment on above: Order Comment: Speci men Type: BLOOD SPECIMENOrdering Facility: [facility] Address: [address] [place] [address] Performed By: #### 5 7021-8 ####[facility] MILLWNCLIA [id number] [place] [address] [place] Eosinophils/100 WBC (Bld) 3.2 % Normal [facility] Comment on above: Order Comment: Speci men Type: BLOOD SPECIMENOrdering Facility: [facility] Address: [address] [place] [address] Performed By: #### 5 7021-8 ####[facility] CAROLYNMINNEAPOLISNCLIA [id number] [place] [address] [place] Erythrocyte distribution width (RBC) [Ratio] 13.6 % Normal 11.5-15.[address] [facility] Comment on above: Order Comment: Speci men Type: BLOOD SPECIMENOrdering Facility: [facility] Address: [address] [place] [address] Performed By: #### 5 7021-8 ####[facility] GORDANCLIA [id number] [place] [address] [place] Hematocrit (Bld) [Volume fraction] 36.1 % Low 39.0-51.[address] [facility] Comment on above: Order Comment: Speci men Type: BLOOD SPECIMENOrdering Facility: [facility] Address: [address] [place] [address] Performed By: #### 5 7021-8 ####[facility] GORDANCLIA [id number] [place] [address] [place] Hemoglobin (Bld) [Mass/Vol] 12.1 g/dL Low 13.0-17.[address] [facility] Comment on above: Order Comment: Speci men Type: BLOOD SPECIMENOrdering Facility: [facility] Address: [address] [place] [address] Performed By: #### 5 7021-8 ####[facility] GORDANCLIA [id number] [place] [address] [place] Immature granulocytes (Bld) [#/Vol] 10*3/uL Normal <0.[address] [facility] Comment on above: Order Comment: Speci men Type: BLOOD SPECIMENOrdering Facility: [facility] Address: [address] [place] [address] Performed By: #### 5 7021-8 ####[facility] GORDANCLIA [id number] [address] STATES [facility] Immature granulocytes/100 WBC (Bld) 0.2 % Normal [facility] Comment on above: Order Comment: Speci men Type: BLOOD SPECIMENOrdering Facility: [facility] Address: [address] [place] [address] Performed By: #### 5 7021-8 ####[facility] GORDANCLI [id number] [place] [address] [place] Lymphocytes (Bld) [#/Vol] 1.32 10*3/uL Normal 1.00-4.[address] [facility] Comment on above: Order Comment: Speci men Type: BLOOD SPECIMENOrdering Facility: [facility] Address: [address] [place] [address] Performed By: #### 5 7021-8 ####[facility] GORDANCLIA [id number] [address] [place] Lymphocytes/100 WBC (Bld) 20.3 % Normal [facility] Comment on above: Order Comment: Speci men Type: BLOOD SPECIMENOrdering Facility: [facility] Address: [address] [place] [address] Performed By: #### 5 7021-8 ####[facility] MEMORIALLIA [id number] [place] [address] [place] MCH (RBC) [Entitic mass] 29.2 pg Normal 26.0-34.[address] [facility] Comment on above: Order Comment: Speci men Type: BLOOD SPECIMENOrdering Facility: [facility] Address: [address] [place] [address] Performed By: #### 5 7021-8 ####[facility] GORDANCLI [id number] [place] [address] [place] MCHC (RBC) [Mass/Vol] 33.5 g/dL Normal 30.5-36.0 [facility] Comment on above: Order Comment: Speci men Type: BLOOD SPECIMENOrdering Facility: [facility] Address: [address] [place] [address] Performed By: #### 5 7021-8 ####[facility] GORDAYINGLIA [id number] [place] [address] [place] MCV (RBC) [Entitic vol] 87.2 fL Normal 80.0-100.0 [facility] Comment on above: Order Comment: Speci men Type: BLOOD SPECIMENOrdering Facility: [facility] Address: [address] [place] [address] Performed By: #### 5 7021-8 ####[facility] GORDAYINGA [id number] [place] [address] [place] Monocytes (Bld) [#/Vol] 0.76 10*3/uL Normal <0.[address] [facility] Comment on above: Order Comment: Speci men Type: BLOOD SPECIMENOrdering Facility: [facility] Address: [address] [place] [address] Performed By: #### 5 7021-8 ####[facility]ORIALBELA [id number] [place] [address] [place] Monocytes/100 WBC (Bld) 11.7 % Normal [facility] Comment on above: Order Comment: Speci men Type: BLOOD SPECIMENOrdering Facility: [facility] Address: [address] [place] [address] Performed By: #### 5 7021-8 ####[facility] MEMORIALLIA [id number] [place] [address] [place] Neutrophils (Bld) [#/Vol] 4.15 10*3/uL Normal 1.45-7.[address] [facility] Comment on above: Order Comment: Speci men Type: BLOOD SPECIMENOrdering Facility: [facility] Address: [address] [place] [address] Performed By: #### 5 7021-8 ####[facility] [id number] [place] [address] [place] Neutrophils/100 WBC (Bld) 64.0 % Normal [facility] Comment on above: Order Comment: Speci men Type: BLOOD SPECIMENOrdering Facility: [facility] Address: [address] [place] [address] Performed By: #### 5 7021-8 ####[facility] [id number] [place] [address] [place] Nucleated RBC (Bld) [#/Vol] 10*3/uL Normal <0.[address] [facility] Comment on above: Order Comment: Speci men Type: BLOOD SPECIMENOrdering Facility: [facility] Address: [address] [place] [address] Performed By: #### 5 7021-8 ####[facility] [id number] [place] [address] [place] Nucleated RBC/100 WBC (Bld) [Ratio] 0.0 /[address] [facility] Comment on above: Order Comment: Speci men Type: BLOOD SPECIMENOrdering Facility: [facility] Address: [address] [place] [address] Performed By: #### 5 7021-8 ####[facility] [id number] [place] [address] [place] Platelet mean volume (Bld) [Entitic vol] 10.6 fL Normal 9.0-12.[address] [facility] Comment on above: Order Comment: Speci men Type: BLOOD SPECIMENOrdering Facility: [facility] Address: [address] [place], [place] [address] Performed By: #### 5 7021-8 ####[facility] JOCELYNEWNCLIA [id number] [place] [address] [place] Platelets (Bld) [#/Vol] 269 10*3/uL Normal 150-[address] [facility] Comment on above: Order Comment: Speci men Type: BLOOD SPECIMENOrdering Facility: [facility] Address: [address] [place], [place] [address] Performed By: #### 5 7021-8 ####[facility] CAROLYNMINNEAPOLISNCLIA [id number] [place] [address] [place] RBC (Bld) [#/Vol] 4.14 10*6/uL Low 4.20-6.00 [facility] Comment on above: Order Comment: Speci men Type: BLOOD SPECIMENOrdering Facility: [facility] Address: [address] [place], [place] [address] Performed By: #### 5 7021-8 ####[facility] GORDANCA [id number] [place] [address] [place] WBC (Bld) [#/Vol] 6.49 10*3/uL Normal 3.70-11.00 [facility] Comment on above: Order Comment: Speci men Type: BLOOD SPECIMENOrdering Facility: [facility] Address: [address] [place], [place] [address] Performed By: #### 5 7021-8 ####[facility] GORDANCLIA [id number] [place] [id number] [facility] Comprehensive metabolic 2000 panelon 11-24-2024 Albumin [Mass/Vol] 4.0 g/dL Normal 3.9-4.[address] [facility] Comment on above: Order Comment: Speci men Type: BLOOD SPECIMEN Ordering Facility: [facility] Address: [address] [place] [address] Performed By: #### 2 4323-8 #### [facility] [place] CLIA [id number] [address] [place] [address] [place] ALP [Catalytic activity/Vol] 63 U/L Normal 38-[address] [facility] Comment on above: Order Comment: Speci men Type: BLOOD SPECIMEN Ordering Facility: [facility] Address: [address] [place] [address] Performed By: #### 2 4323-8 #### [facility] [place] CLIA [id number] [address] [place] [address] [place] ALT [Catalytic activity/Vol] 27 U/L Normal 10-[address] [facility] Comment on above: Order Comment: Speci men Type: BLOOD SPECIMEN [facility]ing Facility: [facility] Address: [address] [place] [address] Performed By: #### 2 4323-8 #### [facility] CLIA [id number] [address] [place] [address] [place] Anion gap [Moles/Vol] 13 mmol/L Normal 8-15 [facility] Comment on above: Order Comment: Speci men Type: BLOOD SPECIMEN [facility]ing Facility: [facility] Address: [address] [place] [address] Performed By: #### 2 4323-8 #### [facility] CLIA [id number] [address] [place] [address] [place] AST [Catalytic activity/Vol] 24 U/L Normal 14-[address] [facility] Comment on above: Order Comment: Speci men Type: BLOOD SPECIMEN Ordering Facility: [facility] Address: [address] [place] [address] Performed By: #### 2 4323-8 #### [facility] CLIA [id number] [address] [place] [address] [place] Bilirubin [Mass/Vol] 1.0 mg/dL Normal 0.2-1.3 [facility] Comment on above: Order Comment: Speci men Type: BLOOD SPECIMEN Ordering Facility: [facility] Address: [address] [place] [address] Performed By: #### 2 4323-8 #### [facility] CLIA [id number] [address] [place] [address] [place] Calcium [Mass/Vol] 8.9 mg/dL Normal 8.5-10.[address] [facility] Comment on above: Order Comment: Speci men Type: BLOOD SPECIMEN Ordering Facility: [facility] Address: [address] [place] [address] Performed By: #### 2 4323-8 #### [facility] CLIA [id number] [address] [place] [address] [place] Chloride [Moles/Vol] 104 mmol/L Normal 98-107 [facility] Comment on above: Order Comment: Speci men Type: BLOOD SPECIMEN Ordering Facility: [facility] Address: [address] [place] [address] Performed By: #### 2 4323-8 #### [facility] CLIA [id number] [address] [place] [address] [place] CO2 [Moles/Vol] 22 mmol/L Normal 22-[address] [facility] Comment on above: Order Comment: Speci men Type: BLOOD SPECIMEN Ordering Facility: [facility] Address: [address] [place] [address] Performed By: #### 2 4323-8 #### [facility] CLIA [id number] [address] [place] [address] [place] Creatinine [Mass/Vol] 0.98 mg/dL Normal 0.73-1.22 [facility] Comment on above: Order Comment: Speci men Type: BLOOD SPECIMEN Ordering Facility: [facility] Address: [address] [place] [address] Performed By: #### 2 4323-8 #### [id number] [address] [place] [address] [place] eGFRcr SerPlBld CKD-EPI 2020 81 mL/min/1.73m??? Normal >=[address] [facility] Comment on above: Order Comment: Lester hayden Type: BLOOD SPECIMEN Ordering Facility: [facility] Address: [address] [place] [address] Result Comment: Madeline mated Glomerular Filtration Rate (eGFR) is calculated using the 2020 CKD-EPI creatinine equation. This equation utilizes serum creatinine, sex, and age as parameters. The creatinine assay has traceable calibration to isotope dilution-mass spectrometry. Refer to KDIGO guidelines for clinical interpretation. In patients with unstable renal function, e.g. those with acute kidney injury, the eGFR may not accurately reflect actual GFR. Performed By: #### 2 4323-8 #### [facility] [id number] [address] [place] [address] [place] Glucose [Mass/Vol] 208 mg/dL High 74-[address] [facility] Comment on above: Order Comment: Lester hayden Type: BLOOD SPECIMEN Ordering Facility: [facility] Address: [address] [place] [address] Result Comment: The [place] Diabetes Association (ADA) provides guidance for cutoff values for fasting glucose and random glucose. The ADA defines fasting as no caloric intake for at least 8 hours. Fasting plasma glucose results between 100 to 125 mg/dL indicate increased risk for diabetes (prediabetes). Fasting plasma glucose results greater than or equal to 126 mg/dL meet the criteria for diagnosis of diabetes. In the absence of unequivocal hyperglycemia, results should be confirmed by repeat testing. In a patient with classic symptoms of hyperglycemia or hyperglycemic crisis, random plasma glucose results greater than or equal to 200 mg/dL meet the criteria for diagnosis of diabetes. Reference: Standards of Medical Care in Diabetes 2016, [place] Diabetes Association. Diabetes Care. 2016.39(Suppl 1). Performed By: #### 2 4323-8 #### [facility] [id number] [address] [place] [address] [place] Potassium [Moles/Vol] 4.6 mmol/L Normal 3.7-5.1 [facility] Comment on above: Order Comment: Speci men Type: BLOOD SPECIMEN Ordering Facility: [facility] Address: [address] [place] [address] Performed By: #### 2 4323-8 #### [facility] CLIA [id number] [address] [place] [address] [place] Protein [Mass/Vol] 6.8 g/dL Normal 6.3-8.[address] [facility] Comment on above: Order Comment: Speci men Type: BLOOD SPECIMEN Ordering Facility: [facility] Address: [address] [place], [place] [address] Performed By: #### 2 4323-8 #### [facility] [id number] [address] [place] [address] [place] Sodium [Moles/Vol] 139 mmol/L Normal 136-[address] [facility] Comment on above: Order Comment: Speci men Type: BLOOD SPECIMEN Ordering Facility: [facility] Address: [address] [place] [address] Performed By: #### 2 4323-8 #### [facility] CLIA [id number] [address] [place] [address] [place] Urea nitrogen [Mass/Vol] 27 mg/dL High 9-[address] [facility] Comment on above: Order Comment: Speci men Type: BLOOD SPECIMEN Ordering Facility: [facility] Address: [address] [place], [place] [address] Performed By: #### 2 4323-8 #### [facility] CLIA [id number] [address] [place] [address] [place] [id number] 11-24-2024 ECG01 Ventricular Rate : 7 6 BPM Atrial Rate : 76 BPM P-R Interval : 142 ms QRS Duration : 98 ms Q-T Interval : 420 ms QTC Calculation(Bazett) : 472 ms Calculated P [place] : 62 degrees Calculated R [place] : 64 degrees Calculated T [place] : 71 degrees NORMAL SINUS RHYTHM NORMAL ECG Confirmed by MD JARRELL QARAB ([id number]) on 11/25/2024 5:00:29 PM NAME : CORINNE CORREA PID : [id number] : 1950 Gender : Male Race : ORD : Procedure Date : Nov 24 2024 15:07:30 Edit Date : Nov 25 2024 17:00:32 Diagnosis: NORMAL SINUS RHYTHM NORMAL ECG Confirmed by MD JARRELL QARAB ([id number]) on 11/25/2024 5:00:29 PM Test Reason : Location : 636 : TAID Overread By : MD JARRELL QARAB Edited By : MD JARRELL QARAB Referred By : , Acquired by : Omega wilkinson [facility] HISTORY PHYSICALon HISTORY PHYSICAL HNO ID: [id number] Author: EUGENIA FERREIRA APRN.ARNIE Service: ? Author Type: Nurse Practitioner Type: H&P Filed: 11/26/2024 12:38 Note Text: [facility] HISTORY AND PHYSICAL EXAMINATION SERVICE DATE: 11/24/2024 SERVICE TIME: 12:38 PM PRIMARY CARE PHYSICIAN: HANS Escoto, UPHOLSTERY INSTRUCTOR Assessment Patient has the following medical conditions which may affect lorenza-operative course: 1. Hyperlipidemia, unspecified hyperlipidemia type (E78.5) - Continue atorvastatin as prescribed. 2. Essential hypertension (I10) - Continue amlodipine and metoprolol as prescribed. Last 3 Encounter BP Readings: Date: BP: 11/24/2024 122/58 09/10/2024 153/68 3. ALICIA on CPAP (G47.33) - Patient is compliant with CPAP therapy. 4. Gastrostomy present (HCC) (Z93.1) - G-tube has been removed. - Denies any new or worsening symptoms. 5. Type 2 diabetes mellitus with other specified complication, unspecified whether half-way insulin use (HCC) (E11.69) 6. IFG (impaired fasting glucose) (R73.01) - On metformin and semaglutide; last semaglutide dose was last week. - Wears [employer]. - Advised to hold metformin on day of surgery and discontinue semaglutide 7 days prior to surgery. ADDENDUM: November 26, 2024 12:37 PM Hemoglobin A1C 8/2%. Telephone with Eugenia Ferreira APRN.ARNIE (11/25/2024) Okay to proceed. 7. Hypothyroidism, unspecified type (E03.9) - Continue levothyroxine as prescribed. 8. Anemia, unspecified type (D64.9) - History of anemia during previous hospitalization (January-March); order labs to reassess. 9. Major depressive disorder with single episode, remission status unspecified (F32.9) 10. Anxiety disorder, unspecified type (F41.9) - Single episode of anxiety and depression documented in March of last year; no current treatment. 11. History of basal cell carcinoma (BCC) (Z85.828) - History of BCC on nose, previously removed. 12. History of tracheostomy (Z98.890) - Tracheostomy has been removed. - Denies any new or worsening symptoms. 13. Heart murmur (R01.1) - Soft murmur auscultated in aortic area; no bruits noted. - Order EKG prior to surgery. 14. Alcohol use (F10.90) - Reports drinking about 2-3 bourbon drinks a night prior to sleeping. - Advised no alcohol after midnight before surgery. ANESTHESIA FINDINGS: Intubation History: No history of difficult intubation. No abnormal airway history Significant Anesthesia Considerations: none Airway History: No history of difficult airway No abnormal airway history Bolton Activity Status Index: METS: Walk indoors, such as around the house (1.75 METs) Do light work around the house, such as dusting or washing dishes (2.70 METs) Take care of self; that is eating, dressing, bathing, using the toilet (2.75 METs) Walk a block or two on level ground (2.75 METs) Do moderate work around the house, such as vacuuming, sweeping floors, or carrying in groceries (3.50 METs) Climb a flight of stairs or walk up a hill (5.50 METs) DASI Score: 18.95 Patient denies any chest pain or undue shortness of breath with the above physical activity. Clinical Frailty Scale: 3. Well, with treated comorbid disease STOP-Bang Score: STOP-Bang Score: (+ alicia on cpap) I - PHYSICAL EVALUATION AIRWAY Patient intubated: No. Tracheostomy tube not present Mallampati: II. TM distance: >3 FB. Neck ROM: full ROM without neurological symptoms. Mouth openin FB. Short neck: no. Thick neck: no DENTAL Dental findings: missing tooth/teeth. Additional comments: + scattered missing teeth. II - ANESTHESIA PLAN Anesthetic plan additional comments: *PACC/TCI - anesthesia choice. Informed Consent Prepared for Surgery: optimally prepared for surgery, pending [see comment]. ADDENDUM: November 26, 2024 12:38 PM Labs and EKG (11/24/24) reviewed and acceptable for procedure. Per Chino Fontenot APRN patient okay to proceed with Hemoglobin A1C 8.2%. CONSULTS: Patient does not require consults for optimization at this time Planned Anesthetic: anesthesia choice The Following Tests/Procedures Have Been Initiated: Orders Placed This Encounter [email or web address] Standing Status: Future Number of Occurrences: 1 Expected Date: 11/24/2024 Expiration Date: 02/23/2025 amLODIPine (NORVASC) 5 mg tablet Sig: Take 5 mg by mouth once daily. levothyroxine (SYNTHROID) 25 mcg tablet Sig: Take 25 mcg by mouth once daily. REASON FOR VISIT: Corinne Correa is a 74 year old male who is scheduled for Procedure(s): HERNIORRHAPHY INCISIONAL ABDOMINAL RECURRENT REDUCIBLE GREATER THAN 10cm (N/A) at the request of Dr. Augie Persaud for consultation. My final recommendation will be communicated back to the requesting physician by way of shared medical record or letter. Subjective The patient has the following: COVID-19 Immunization Status This patient has no relevant Health (more content not included)... Normal [facility] HbA1c (Bld)on 11-24-2024 Average glucose Estimated from glycated hemoglobin (Bld) [Mass/Vol] 189 mg/dL Normal [facility] Comment on above: Order Comment: Speci men Type: BLOOD SPECIMENOrdering Facility: [facility] Address: [address] [place] [address] Result Comment: eAG: (Estimated average glucose) is a calculated value from HgbA1c and is enrollment representative of the average blood glucose level in the last 2-3 month period. Performed By: #### 5 5454-3 ####[facility] [id number] [place] [address] [place] HbA1c (Bld) [Mass fraction] 8.2 % High 4.3-5.[address] [facility] Comment on above: Order Comment: Lester hayden Type: BLOOD SPECIMENOrdering Facility: [facility] Address: [address] [place] [address] Result Comment: [place] Diabetes Association guidelines indicate that patients with HgbA1c in the range 5.7-6.4% are at increased risk for development of diabetes, and intervention by lifestyle modification may be beneficial. HgbA1c greater or equal to 6.5% is considered diagnostic of diabetes. Performed By: #### 5 5454-3 ####[facility] [id number] [address] [place] PT panel Coag (PPP)on 2024 INR Coag (PPP) [Relative time] 0.9 {INR} Normal 0.9-1.[address] [facility] Comment on above: Order Comment: Lester hayden Type: BLOOD SPECIMENOrdering Facility: [facility] Address: [address] [place] [address] Result Comment: Moni min K Antagonist (VKA) Therapeutic Range: INR 2 to 3 (Target INR of 2.5) Note: For patients treated with VKA drugs, such as warfarin, the [place] [employer] 2012 Guideline recommends a therapeutic INR range of 2 to 3 (target INR of 2.5). This recommendation includes high-risk patients with antiphospholipid syndrome with previous arterial or venous thromboembolism, current-generation mechanical or bioprosthetic aortic heart valve replacement. Note: Patients with mechanical aortic valve replacement and additional risk factors for thromboembolic events (atrial fibrillation, previous thromboembolism, LV dysfunction, hypercoagulable conditions) or an older generation mechanical AVR (i.e., ball in-Cage) or any mechanical MVR should have a INR therapeutic range of 2.5 to 3.5 (target INR of 3). Kolby GH, et al. Chest 2012, 141:7S-47S John RA et al. JACC 2017, 70: 252-289 Performed By: #### 1 4979-9, 85331-3 ####[facility] ARIANA CAROLYNMINNEAPOLISSTEVEA [id number] [place] [address] [place] PT Coag (PPP) [Time] 9.9 s Normal <13.1 [facility] Comment on above: Order Comment: Speci men Type: BLOOD SPECIMENOrdering Facility: [facility] Address: [address] [place] [address] Performed By: #### 1 4979-9, 48372-6 ####[facility] [id number] [place] [address] [place] TYPE AND SCREEN,30 DAYon ABO A Normal [facility] Comment on above: Order Comment: Speci men Type: BLOOD SPECIMEN Ordering Facility: [facility] Address: [address] [place] [address] Performed By: #### 1 9123-9, 2777-1, 57228-4 #### [facility] CLIA [id number] [address] [place] [address] [place] Rh Nom (Bld) Positive Normal [facility] Comment on above: Order Comment: Speci men Type: BLOOD SPECIMEN Ordering Facility: [facility] Address: [address] [place] [address] Performed By: #### 1 9123-9, 2777-1, 07593-1 #### [facility] CLIA [id number] [address] [place], [place] [address] [place] aPTT PPPon 11-24-2024 aPTT Coag (PPP) [Time] 24.7 s Normal 23.0-32.4 [facility] Comment on above: Order Comment: Speci men Type: BLOOD SPECIMENOrdering Facility: [facility] Address: [address] [place] [address] Performed By: #### 1 4979-9, 65543-5 ####[facility] ARIANA PEDROZA [id number] [address] [place] Huy 11-16-2024 ARNIEN Telephone (PANEWO) -------- CORINNE CORREA ([id number]) 1950 M Date Time Provider Department 11/16/24 EUGENIA FERREIRA During your visit today, we recorded the following information about you: Gudelia Canchola LPN 11/16/2024 11:06 AM Signed Patient was scheduled for in person [facility] appt at 1040am today. Patient did not check in for appt, called patient at 1055am to see if they were planning on coming. Patient thought his appt was another day. Rescheduled to 11/24/24.. Routed to [facility] geospatial technologist pool. MICHAEL Bustos Ashley 11/16/2024 11:08 AM Signed Patient contacted office and confirmed 11/24/24 2:00 pm appointment. Allergies As of Date: 11/16/2024 (Not on File) Date Reviewed: 09/10/2024 Reviewed by: Sunil Interiano MA - Fully Assessed Prescriptions as of 11/16/2024 - atorvastatin (LIPITOR) 20 mg tablet 20 mg. - metoprolol succinate ER (TOPROL XL) 25 mg 24 hr tablet 25 mg. - metoprolol tartrate, short acting, (LOPRESSOR) 25 mg tablet Take 25 mg by mouth every morning. - metFORMIN (GLUCOPHAGE) 1,000 mg tablet 1,000 mg. - semaglutide (OZEMPIC) 1 mg/dose (4 mg/3 mL) pen 1 mg. Problem List As Of Date 11/16/2024 Noted Resolved Anemia [D64.9] 03/26/2024 Anxiety disorder [F41.9] 03/26/2024 Essential hypertension [I10] 03/05/2024 Gastroesophageal reflux disease without esophag*03/26/2024 History of basal cell carcinoma (BCC) [Z85.828] 11/14/2024 History of ventral hernia [Z87.19] 11/14/2024 Hyperlipidemia [E78.5] 03/05/2024 Hypothyroidism [E03.9] 03/05/2024 Major depression, single episode [F32.9] 03/26/2024 ALICIA on CPAP [G47.33] 11/14/2024 Oropharyngeal dysphagia [R13.12] 03/06/2024 Type 2 diabetes mellitus (HCC) [E11.9] 03/05/2024 Encounter Status:Closed by GUDELIA CANCHOLA on 11/16/[address] [facility] CNOVon 09-10-2024 CNOV Office Visit (GENSMN ) -------- MADELINECORINNE HODGE ([id number]) 1950 M Date Time Provider Department 09/10/24 10:00 AM AUGIE PERSAUD During your visit today, we recorded the following information about you: Temperature Pulse Blood pressure Weight 97.4 degrees 90/minute 153/68 109.3 kg Height 1.778 m Sunil Interiano MA 09/10/2024 11:28 AM Signed What is the reason for your visit today? Consult Who is your referring physician? Dr. Persaud Are you having poor oral intake? NO Have you had unintentional weight loss of 15 lbs/7 Kg in the last 3-6 months? YES Bowels: regular Wound: clean AND dry Temperature: No Drains: No Bryson Olvera MD 09/10/2024 11:28 AM Signed [facility] Abdominal [facility] - HISTORY AND PHYSICAL Chief Complaint: Complex ventral hernia HPI: Corinne Correa is a 74 year old male with a PMH significant for HTN, HLD, hypothyroid, T2DM, and complicated surgical history of robotic umbilical hernia repair in Dec 2023 at [facility] c/b duodenal perforation c/b prolonged intubation/ sedation and possible open abdomen during that time as patient notes he had a wound vac in place. He presents with a complex ventral hernia and is seeking recommendations for repair. Relevant previous operations include: robotic assisted umbilical hernia repair, ex lap x3 No prior belly surgeries before the hernia surgery Partially dependent No employment Sporadic (once/month) Hypertension, Diabetes Mellitus History of component separation, History of open abdomen Abdominal hernia not necessarily causing pain. Can feel it with activity, wears abdominal binder. No concern of bowel obstruction. No past medical history on file. No past surgical history on file. Social History Tobacco Use Smoking status: Former Types: Cigarettes Smokeless tobacco: Never Additional social history not relevant to the patient's HPI No family history on file. Additional family history not relevant to the patient's HPI ALLERGIES Not on File Current Outpatient Medications Medication Sig Dispense Refill atorvastatin (LIPITOR) 20 mg tablet 20 mg. metoprolol succinate ER (TOPROL XL) 25 mg 24 hr tablet 25 mg. metFORMIN (GLUCOPHAGE) 1,000 mg tablet 1,000 mg. semaglutide (OZEMPIC) 1 mg/dose (4 mg/3 mL) pen 1 mg. metoprolol tartrate, short acting, (LOPRESSOR) 25 mg tablet Take 25 mg by mouth every morning. No current facility-administered medications for this visit. REVIEW OF SYSTEMS GENERAL: No weight loss, malaise or fevers. RESPIRATORY: Negative for cough, hemoptysis, wheezing, COPD, dyspnea or shortness of breath CARDIOVASCULAR: Negative for chest pain, leg swelling, hypertension, CHF or palpitations GI: No nausea, vomiting, or diarrhea MUSCULOSKELETAL: Negative for joint pain or swelling, back pain or muscle pain SKIN: Endorses raw skin/ healing wound overlying hernia The remainder of the 12 review of systems is negative other than what was mentioned in the HPI and above. BP 153/68 Pulse 90 Temp 36.3 ?C (97.4 ?F) (Temporal) Ht 177.8 cm (5' 10) Wt 109.3 kg (241 lb) BMI 34.58 kg/m? Physical Exam Constitutional: The patient is well-developed, well-nourished, and in no distress. Cardiovascular: Regular rhythm and normal heart sounds. Pulmonary/Chest: Effort normal and breath sounds normal. Abdominal: Soft. Mildly distended, appropriately tender. Large midline ventral hernia. Musculoskeletal: Normal range of motion. Neurological: He is alert. GCS score is 15. Skin: Skin is warm and dry. Healing skin overlying hernia site with serous drainage. Psychiatric: Affect and judgment normal. Relevant Hernia Findings - large ventral hernia with overlying healing skin IMAGING - Reviewed with staff CT A/P at [facility] 07/13/24 Thinning of the anterior abdominal wall with bulging of the anterior abdomen Assessment: Corinne Correa is a 74 year old male who presents with complex, large ventral hernia Plan: - Continue wound care of hernia site - Ventral hernia repair with mesh, planned for ~2+ months out to allow for additional healing of skin Bryson Olvera MD General Surgery, PGY1 Hernia Surgery Service Pager: [phone] (Mickey) AND [phone](Virgilio) Augie Persaud MD 09/10/2024 11:28 AM Signed Consultation requested by Dr. Dean for an opinion regarding abdominal bulge. My final recommendations will be communicated back to the requesting physician by way of shared medical record or letter via US mail. Corinne Correa is a 74 year old male who presents with a large abdominal bulge after a robotic umbilical hernia repair complicated by a duodenal injury, reoperation, mesh explantation, open abdomen all culminating in a several months hospital stay at the end of last year. He has almost healed his wound but not entirely so we'll wait another 6-8 weeks and t (more content not included)... Normal [facility] HISTORY PHYSICALon HISTORY PHYSICAL HNO ID: [id number] Author: BRYSON OLVERA MD Service: ? Author Type: Resident Type: H&P Filed: 09/10/2024 11:28 Note Text: [facility] Abdominal [facility] - HISTORY AND PHYSICAL Chief Complaint: Complex ventral hernia HPI: Corinne Correa is a 74 year old male with a PMH significant for HTN, HLD, hypothyroid, T2DM, and complicated surgical history of robotic umbilical hernia repair in Dec 2023 at [facility] c/b duodenal perforation c/b prolonged intubation/ sedation and possible open abdomen during that time as patient notes he had a wound vac in place. He presents with a complex ventral hernia and is seeking recommendations for repair. Relevant previous operations include: robotic assisted umbilical hernia repair, ex lap x3 No prior belly surgeries before the hernia surgery Partially dependent No employment Sporadic (once/month) Hypertension, Diabetes Mellitus History of component separation, History of open abdomen Abdominal hernia not necessarily causing pain. Can feel it with activity, wears abdominal binder. No concern of bowel obstruction. No past medical history on file. No past surgical history on file. Social History Tobacco Use Smoking status: Former Types: Cigarettes Smokeless tobacco: Never Additional social history not relevant to the patient's HPI No family history on file. Additional family history not relevant to the patient's HPI ALLERGIES Not on File Current Outpatient Medications Medication Sig Dispense Refill atorvastatin (LIPITOR) 20 mg tablet 20 mg. metoprolol succinate ER (TOPROL XL) 25 mg 24 hr tablet 25 mg. metFORMIN (GLUCOPHAGE) 1,000 mg tablet 1,000 mg. semaglutide (OZEMPIC) 1 mg/dose (4 mg/3 mL) pen 1 mg. metoprolol tartrate, short acting, (LOPRESSOR) 25 mg tablet Take 25 mg by mouth every morning. No current facility-administered medications for this visit. REVIEW OF SYSTEMS GENERAL: No weight loss, malaise or fevers. RESPIRATORY: Negative for cough, hemoptysis, wheezing, COPD, dyspnea or shortness of breath CARDIOVASCULAR: Negative for chest pain, leg swelling, hypertension, CHF or palpitations GI: No nausea, vomiting, or diarrhea MUSCULOSKELETAL: Negative for joint pain or swelling, back pain or muscle pain SKIN: Endorses raw skin/ healing wound overlying hernia The remainder of the 12 review of systems is negative other than what was mentioned in the HPI and above. BP 153/68 Pulse 90 Temp 36.3 ?C (97.4 ?F) (Temporal) Ht 177.8 cm (5' 10) Wt 109.3 kg (241 lb) BMI 34.58 kg/m? Physical Exam Constitutional: The patient is well-developed, well-nourished, and in no distress. Cardiovascular: Regular rhythm and normal heart sounds. Pulmonary/Chest: Effort normal and breath sounds normal. Abdominal: Soft. Mildly distended, appropriately tender. Large midline ventral hernia. Musculoskeletal: Normal range of motion. Neurological: He is alert. GCS score is 15. Skin: Skin is warm and dry. Healing skin overlying hernia site with serous drainage. Psychiatric: Affect and judgment normal. Relevant Hernia Findings - large ventral hernia with overlying healing skin IMAGING - Reviewed with staff CT A/P at [facility]SH 07/13/24 Thinning of the anterior abdominal wall with bulging of the anterior abdomen Assessment: Corinne Correa is a 74 year old male who presents with complex, large ventral hernia Plan: - Continue wound care of hernia site - Ventral hernia repair with mesh, planned for ~2+ months out to allow for additional healing of skin Bryson Olvera MD General Surgery, PGY1 Hernia Surgery Service Pager: [phone] (Mickey) AND [phone](Virgilio) [facility] Tele[facility] (GENSMN) -------- CORINNE CORREA ([id number]) 1950 Date Time Provider Department 08/25/24 SPENCER RENO During your visit today, we recorded the following information about you: Spencer Reno LPN 08/25/2024 4:02 PM Signed Contacted [facility] spoke with Tanja. Advised of the following Imaging push needed for upcoming appointment: 07/13/2024--CT A/P Tanja to have pushed via PACS to [facility], will monitor for Images with [facility] Imaging Library. Fax Request Sent to [facility] for the following Operative Reports: --Operative Rpts Abd Sx's Fax Receipt Confirmation @ 14:02pm, will monitor for Reports and have scanned into chart once received. MICHAEL Rodriguez Claudine, LPN 08/27/2024 5:23 PM Addendum Contacted patient, verified name and . Advised patient of Imaging performed requested from [facility] and received for upcoming appointment. Advised by patient of recent [place]dominal [place]. Advised will resend fax request for reports: Sent to [place] in [facility] and given different fax number. Refaxed to HIM at [place], fax confirmation @ 16:02, will monitor for Operative Reports. MICHAEL Rodriguez Claudine, LPN 08/28/2024 12:52 PM Signed Contacted [facility], spoke with Harriett. Advised of additional Operative Reports not received from [facility] Department. She requested Fax Cover Sheet to be sent to have Reports faxed, which this insurance writer did today. Received Operative Reports 01/20/2024-02/07/2024 Paperwork Scanned into patient's Chart for review for upcoming appointment with Dr. Augie Persaud for 09/10/2024. Contacted patient and message left of records received and sent Appointment Reminder with [facility] Map for patient placed in USPS Mail for patient, which will go out on Saturday08/31/24. Spencer Reno LPN Allergies As of Date: 08/25/2024 (Not on File) Date Reviewed: Never Reviewed Reason for Visit: Imaging Upload Request [Other] Problem List As Of Date: 08/25/2024 (None) Encounter Status:Closed by SPENCER RENO on 08/25/[address] [facility] Surgery Visit Reporton 07-16 Surgery Visit Report [facility] [address] [place] [address] OFFICE VISIT Date of Service: 07/16/24 MR#: [id number] Acct: [id number] Name: CORINNE CORREA Bita Rep #: [id number] : 1950 Provider: Dr. Yordy yanez MD Age/Sex: 74/M Location: [facility] Status: Signed Intake Vital Signs 04/18/24 23:28 07/16/24 09:49 Height 5 ft 10.08 in 5 ft 10 in Weight: 238 lb BMI 34.1 BP 145/84 H Blood Pressure Location Rt brachial Position Sitting Respiration 17 Pulse 84 Pulse Source Monitor Temp 97.6 F L Temp Source Temporal Pulse Oximetry (%) 94 Oxygen Delivery Method room air Intake Visit Reasons: POSSIBLE RECONSTRUCTION OF ABDOMINAL WOUND Chief Complaint: possible reconstruction of abdominal wound Is patient in pain?: Yes Allergies No Known Allergies Allergy (Verified 07/16/24 09:50) Medications ???Medication ???Instructions ???Recorded ???Confirmed ???Type dapagliflozin propanediol 10 mg 10 mg PO DAILY 10/31/21 07/16/24 H istory tablet (Farxiga) amlodipine 5 mg tablet 5 mg PO QDAY 06/18/24 07/16/24 His tory atorvastatin 20 mg tablet 20 mg PO QDAY 06/18/24 07/16/24 Hi story escitalopram oxalate 10 mg tablet 10 mg PO QDAY 06/18/24 07/16/24 H istory levothyroxine 50 mcg capsule 50 mcg PO QDAY 06/18/24 07/16/24 H istory losartan 100 mg tablet 100 mg PO QDAY 06/18/24 07/16/24 H istory metformin 500 mg tablet,extended 1,000 mg PO BID 06/18/24 07/16/24 History release 24 hr metoprolol tartrate 25 mg tablet 25 mg PO QDAY 06/18/24 07/16/24 Hi story cephalexin 250 mg capsule 250 mg PO 4X/DAY 07/08/24 07/16/24 History Have you fallen in the past year?: No PFSH Medical History Vitamin D deficiency GERD (gastroesophageal reflux disease) Dysphagia, pharyngeal phase Perforation of intestine HLD (hyperlipidemia) Anxiety Depression Infection following a procedure, other surgical site, subsequent encounter Acute and chronic respiratory failure with hypoxia Diabetes HTN (hypertension) Surgical History Gastrostomy status Tracheostomy status Social History Smoking Status: Never smoker alcohol intake: current alcohol intake frequency: a few times a month Alcohol type: beer and wine HPI HPI HPI: The patient is a 74-year-old male who is being seen today for evaluation of abdominal wound. Patient has a very complicated surgical history which began about 6 or 7 months ago when he underwent a robotic umbilical hernia repair at [facility]. It sounds as though he developed severe abdominal pain several days after the surgery and after multiple midline laparotomy/exploratory surgeries, it was determined that he had a duodenal perforation. Patient had a very complicated hospital course thereafter. He was intubated and sedated for several months. The patient just recently was discharged from rehab and has finally returned home. He has been following up with the wound center for evaluation of a large wound involving the abdomen. Patient did not provide any operative notes but I suspect he may have had an open abdomen as he stated that he had a wound VAC in place during much of his hospitalization and recovery. Patient is been evaluated at the wound center here at [facility] and was seen by Dr. Hurtado. He was referred to me for evaluation to determine if abdominal reconstruction would be possible versus doing skin grafting. Patient has undergone a recent CT scan that revealed at least a 15 cm diastases of the rectus muscles. He has a very thin abdominal wall between skin and bowel. Patient denies any significant pain or problems and is otherwise doing reasonably well. He states that it has taken him several months just to be able to walk and begin to recover from his prolonged hospital stay ROS General General: Yes weight change and fatigue; No appetite, colon cancer, breast cancer or weakness HEENT HEENT: No difficulty swallowing, eye injury, eye surgery, swollen glands or hoarseness Endo Endocrine: Yes thyroid disease and diabetes mellitus; No thyroid cancer, Hair loss, heat intolerance or cold intolerance Skin Skin: No rash or changing moles Additional Details: surgical wound on abdomen Musc Musculoskeletal: Yes arthritis; No back problems, rheumatoid arthritis, gout or joint pain Cardio Cardiovascular: Yes high blood pressure; No murmur, pacemaker, heart disease, atrial fibrillation, heart attack, heart stent, palpitations, shortness of breath with exertion or chest pain Psych Psychiatric: No depression, anxiety or hearing voices Resp Respiratory: Yes shortn (more content not included)... Normal [facility] Abdomen/Pelvis WITH Contrast on 07-13-2024 Abdomen/Pelvis WITH Contrast [facility] Services [address] [place], [place] [id number] Abdomen/Pelvis WITH Contrast MR#: [id number] Acct: [id number] Name: CORINNE CORREA Rep #: [id number] : 1950 M 74 From: Lewis kitchen MD PCP: Kelley Hernandez, BIODIESEL PRODUCTION TECHNICIAN-C Status: REG RCR Study: Abdomen/Pelvis WITH Contrast Date of Exam: Exam# [id number] Ordering Dr: Nga Canela NP P-C PROCEDURE: ABDOMEN/PELVIS WITH CONTRAST 07/13/2024 REASON FOR EXAM: NON-HEALING SURGICAL WOUND TECHNIQUE: Abdomen and pelvis CT without intravenous contrast. Noncontrast technique limits evaluation of the abdominal and pelvic viscera. Coronal and Sagittal reconstruction series were provided. One or more dose reduction techniques were used (e.g., Automated exposure control, adjustment of the mA and/or kV according to patient size, use of iterative reconstruction technique). PATIENT PREPARATION: Per protocol ORAL CONTRAST TYPE: None. COMPARISON: None available. FINDINGS: Lung bases: Mild dependent atelectasis coronary artery calcification. Liver: Normal size. No obvious mass. Gallbladder: Surgically absent. Spleen: Normal size. Pancreas: Normal size. No surrounding inflammation. Adrenals: Unremarkable Kidneys: Unremarkable. Bladder: Mild degree of bladder wall thickening. Bowel: No bowel obstruction. Appendix: The appendix is not identified. There is no inflammatory process identified in the right lower quadrant to suggest appendicitis. Lymph nodes: No suspicious lymph node enlargement. Vasculature: Mild diffuse atherosclerotic calcifications are noted. Peritoneum / Retroperitoneum: Thinning of the anterior abdominal wall with bulging of the anterior abdomen. Bones: Degenerative changes of the spine. CT/Abdomen/Pelvis WITH Contrast IMPRESSION: Mild bibasilar linear atelectasis. Status post cholecystectomy. No evidence of bowel obstruction. Reading Location: [facility] CC: SON Canela; SON Hernandez Repack Room Worker: Signed Normal [facility] Wound Ctr History AND Physic monet 07-13-2024 Wound Ctr History & Physical [facility] [address] [place] [address] H P Exam - Wound Care 07/13/24 0932 MR#: [id number] Acct: [id number] Name: CORINNE CORREA Rep #: [id number] : 1950 74 From: Efrain Hurtado MD PCP: SON Amador Status:REG RCR Location: History of Present Illness Date of Service: 07/13/24 Chief Complaint: Follow-up on his abdominal wound nonhealing since December History of Wound: Corinne Correa is a 74-year-old male who underwent an umbilical hernia repair at [facility] in December 2023 and unfortunately 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 Through patient report, it was not discovered at the initial time of the hernia repair surgery and he subsequently required 3 surgeries for exploration of his abdomen and to fix the enterotomy site. Patient never had an ostomy. He had a prolonged hospital stay including prolonged intubation necessitating a tracheostomy (he has been decannulated for 1 week) and prolonged ICU admission followed by discharge to a halfway facility. 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 He has an adult daughter with 2 adult grandchildren. Patient has never had any bleeding or clotting problems (he is not on any blood thinner and has not had a blood clot). He is not a smoker. Patient is a diabetic with an A1c of 7.7 (earlier this month). His prealbumin is 24 and his albumin is 3.5. For wound care he has been doing dressing changes with Xeroform and has tried the wound VAC in the past. He has not had a CT scan recently and he has not had a biopsy of the wound. He has not been using an abdominal binder. [facility] Medical History Vitamin D deficiency GERD (gastroesophageal reflux disease) Dysphagia, pharyngeal phase Perforation of intestine HLD (hyperlipidemia) Anxiety Depression Infection following a procedure, other surgical site, subsequent encounter Acute and chronic respiratory failure with hypoxia Diabetes HTN (hypertension) Home Medications ???Medication ???Instructions ???Recorded ???Last Taken ???Type dapagliflozin propanediol 10 mg 10 mg PO DAILY 10/31/21 Unknown Hi story tablet (Farxiga) amlodipine 5 mg tablet 5 mg PO QDAY 06/18/24 Unknown Hist ory atorvastatin 20 mg tablet 20 mg PO QDAY 06/18/24 Unknown His tory escitalopram oxalate 10 mg tablet 10 mg PO QDAY 06/18/24 Unknown Hi story insulin glargine 100 unit/mL 10 unit subcut QAM 06/18/24 Unknow n History subcutaneous solution (Lantus U-100 Insulin) levothyroxine 50 mcg capsule 50 mcg PO QDAY 06/18/24 Unknown Hi story losartan 100 mg tablet 100 mg PO QDAY 06/18/24 Unknown Hi story metformin 500 mg tablet,extended 1,000 mg PO BID 06/18/24 Unknown H istory release 24 hr metoprolol tartrate 25 mg tablet 25 mg PO QDAY 06/18/24 Unknown His tory cephalexin 250 mg capsule 250 mg PO 4X/DAY 07/08/24 Unknown History Allergy/AdvReac Type Severity Reaction Status Date / Time No Known Allergies Allergy Verified 10/16/22 19:44 Surgical History Gastrostomy status Tracheostomy status Social History Smoking Status: Never smoker alcohol intake: current alcohol intake frequency: a few times a month Alcohol type: beer and wine Vital Signs Vital Signs Vital Signs: 07/13/24 08:25 Temperature 97.3 F L Temperature Source Temporal Pulse Rate 99 Respiratory Rate 18 Blood Pressure 159/84 H Blood Pressure Mean 109 Blood Pressure Source Monitor Physical Exam Narrative Abdomen: 15 x 15 cm granulating central abdominal wound. No exposed mesh. No surrounding induration. There is loss of domain centrally with large diastases that is approximately 15 cm wide and 20 cm tall. Debridement Note Debridement Note No debridement was completed: No debridement was completed today Post-Debridement Measurements and Additional Note: Post-Debridement Measurements/Treatment - Nurse 1 - General Ulcer Assessment Start: 07/08/24 08:30 Freq: Status: Active Protocol: HENRI.RENITA Activity Type Activity Date Activity User E-sign Co-sign Detail Recorded Client Recorded Date Recorded By Document 07/08/24 08:34 RB [id number] 07/08/24 08:44 RB Document 07/13/24 08:25 DL [id number] 07/13/24 08:30 DL 07/08/24 07/13/24 08:34 08:25 - Today's Visit Information Type of service Initial Visit Follow-up Visit (Physician/UPHOLSTERY INSTRUCTOR ) Physician Covering Nurse Only Visit C/S [facility] Arrival Mode Ambulatory Ambulatory Transfer Assistance None None (more content not included)... Normal [facility] Prealbumin [id number] Prealbumin [Mass/Vol] 24 mg/dL Normal 9-32 [facility] Comment on above: Result Comment: Perf ormed at: - [facility] [id number] Administration Specialist: Turner Boogie PhD, Phone: [phone] Performed By: #### L 100.0500, L501.9985, L3300.6400, L500.4050, L501.9520 ####[facility] [address] [place], [place], [id number] Anion gap in Serum or Plasma Ordered By: Nga Canela on 07-08-2024 Anion gap [Moles/Vol] 15 mmol/L 5-15 [facility] BUN/creatinine ratioOrdered By: Nga Canela on 07-08-2024 Urea nitrogen/Creatinine [Mass ratio] 20.5 mg/mg High 10-20 [facility] Bilirubin, totalOrdered By: Nga Canela on 07-08-2024 Bilirubin [Mass/Vol] 0.28 mg/dL 0.00-1.30 [facility] CBC-Complete Blood Cnt No Di ffon 07-08-2024 Erythrocyte distribution width (RBC) [Ratio] 15.9 % High 11.6-14.6 [facility] Comment on above: Performed By: #### L 100.0500, L501.9985, L3300.6400, L500.4050, L501.9520 #### [facility] [address] [place], [place], [id number] (384) Hematocrit (Bld) [Volume fraction] 35.5 % Low 40-54 [facility] Comment on above: Performed By: #### L 100.0500, L501.9985, L3300.6400, L500.4050, L501.9520 #### [facility] [address] [place], [address] Hemoglobin (Bld) [Mass/Vol] 11.1 g/dL Low 13.0-16.5 [facility] Comment on above: Performed By: #### L 100.0500, L501.9985, L3300.6400, L500.4050, L501.9520 #### [facility] [address] [place], [address] MCH (RBC) [Entitic mass] 26.0 pg Low 27.0-32.0 [facility] Comment on above: Performed By: #### L 100.0500, L501.9985, L3300.6400, L500.4050, L501.9520 #### [facility] [address] [place], [address] MCHC (RBC) [Mass/Vol] 31.3 g/dL Low 32-36 [facility] Comment on above: Performed By: #### L 100.0500, L501.9985, L3300.6400, L500.4050, L501.9520 #### [facility] [address] [place], [address] MCV (RBC) [Entitic vol] 83.1 fL Normal 80-94 [facility] Comment on above: Performed By: #### L 100.0500, L501.9985, L3300.6400, L500.4050, L501.9520 #### [facility] [address] [place], [address] Platelet mean volume (Bld) [Entitic vol] 10.9 fL Normal 6.2-12.0 [facility] Comment on above: Performed By: #### L 100.0500, L501.9985, L3300.6400, L500.4050, L501.9520 #### [facility] [address] [place], [address] Platelets (Bld) [#/Vol] 399 10*3/uL Normal 150-450 [facility] Comment on above: Performed By: #### L 100.0500, L501.9985, L3300.6400, L500.4050, L501.9520 #### [facility] [address] [place], [address] RBC (Bld) [#/Vol] 4.27 10*6/uL Low 4.6-6.[address] [facility] Comment on above: Performed By: #### L 100.0500, L501.9985, L3300.6400, L500.4050, L501.9520 #### [facility] [address] [place], [address] RDW SD 47.8 fl High 35.1-43.9 [facility] Comment on above: Performed By: #### L 100.0500, L501.9985, L3300.6400, L500.4050, L501.9520 #### [facility] [address] [place], [address] WBC (Bld) [#/Vol] 6.1 10*3/uL Normal 4.4-11.0 [facility] Comment on above: Performed By: #### L 100.0500, L501.9985, L3300.6400, L500.4050, L501.9520 #### [facility] [address] [place], [address] Carbon dioxide, total [Moles /volume] in Central venous bloodOrdered By: Nga Canela on 07-08-2024 CO2 [Moles/Vol] 20.7 mmol/L Low 21.0-32.0 [facility] Chloride assayOrdered By: Do ra Canela on 07-08-2024 Chloride [Moles/Vol] 104 mmol/L 98-108 [facility] Comprehensive Metabolic Prof ilon 07-08-2024 Albumin [Mass/Vol] 3.5 g/dL Normal 3.4-4.8 [facility] Comment on above: Performed By: #### L 100.0500, L501.9985, L3300.6400, L500.4050, L501.9520 #### [facility] [address] [place], [address] Albumin/Globulin [Mass ratio] 1.0 {ratio} Normal 0.9-2.4 [facility] Comment on above: Performed By: #### L 100.0500, L501.9985, L3300.6400, L500.4050, L501.9520 #### [facility] [address] [place], [address] ALK PHOS 67 U/L Normal 40-129 [facility] Comment on above: Performed By: #### L 100.0500, L501.9985, L3300.6400, L500.4050, L501.9520 #### [facility] [address] [place], [address] ALT [Catalytic activity/Vol] 38 U/L Normal <=46 [facility] Comment on above: Performed By: #### L 100.0500, L501.9985, L3300.6400, L500.4050, L501.9520 #### [facility] [address] [place], [address] AST [Catalytic activity/Vol] 24 U/L Normal <=37 [facility] Comment on above: Performed By: #### L 100.0500, L501.9985, L3300.6400, L500.4050, L501.9520 #### [facility] [address] [place], [address] Bilirubin [Mass/Vol] 0.28 mg/dL Normal 0.00-1.30 [facility] Comment on above: Performed By: #### L 100.0500, L501.9985, L3300.6400, L500.4050, L501.9520 #### [facility] [address] [place], [address] BUN/CRE 20.5 RATIO High 10-20 [facility] Comment on above: Performed By: #### L 100.0500, L501.9985, L3300.6400, L500.4050, L501.9520 #### [facility] [address] [place], [address] Calcium [Mass/Vol] 9.3 mg/dL Normal 7.6-11.0 [facility] Comment on above: Performed By: #### L 100.0500, L501.9985, L3300.6400, L500.4050, L501.9520 #### [facility] [address] [place], [address] Chloride [Moles/Vol] 104 mmol/L Normal 98-108 [facility] Comment on above: Performed By: #### L 100.0500, L501.9985, L3300.6400, L500.4050, L501.9520 #### [facility] [address] [place], [address] CO2 [Moles/Vol] 20.7 mmol/L Low 21.0-32.0 [facility] Comment on above: Performed By: #### L 100.0500, L501.9985, L3300.6400, L500.4050, L501.9520 #### [facility] [address] [place], [address] Creatinine [Mass/Vol] 0.94 mg/dL Normal 0.70-1.20 [facility] Comment on above: Performed By: #### L 100.0500, L501.9985, L3300.6400, L500.4050, L501.9520 #### [facility] [address] [place], [address] GAP 15 Normal 5-15 [facility] Comment on above: Performed By: #### L 100.0500, L501.9985, L3300.6400, L500.4050, L501.9520 #### [facility] [address] [place], [address] GFR/1.73 sq M.predicted among non-blacks MDRD (S/P/Bld) [Vol rate/Area] 86 mL/min/{1.73_m2} Normal >60 [facility] Comment on above: Result Comment: mL/m in/1.73m2 CKD-EPI Creatinine Equation (2020) Performed By: #### L 100.0500, L501.9985, L3300.6400, L500.4050, L501.9520 #### [facility] [address] [place], [address] Globulin (S) [Mass/Vol] 3.7 g/dL Normal 2.2-4.2 [facility] Comment on above: Performed By: #### L 100.0500, L501.9985, L3300.6400, L500.4050, L501.9520 #### [facility] [address] [place], [address] Glucose [Mass/Vol] 241 mg/dL High 70-99 [facility] Comment on above: Performed By: #### L 100.0500, L501.9985, L3300.6400, L500.4050, L501.9520 #### [facility] [address] [place], [address] Potassium [Moles/Vol] 4.3 mmol/L Normal 3.3-5.1 [facility] Comment on above: Performed By: #### L 100.0500, L501.9985, L3300.6400, L500.4050, L501.9520 #### [facility] [address] [place], [address] Sodium [Moles/Vol] 139 mmol/L Normal 133-145 [facility] Comment on above: Performed By: #### L 100.0500, L501.9985, L3300.6400, L500.4050, L501.9520 #### [facility] [address] [place], [address] T PROT 7.1 g/dL Normal 5.9-8.4 [facility] Comment on above: Performed By: #### L 100.0500, L501.9985, L3300.6400, L500.4050, L501.9520 #### [facility] [address] [place], [address] Urea nitrogen [Mass/Vol] 19 mg/dL Normal 4-19 [facility] Comment on above: Performed By: #### L 100.0500, L501.9985, L3300.6400, L500.4050, L501.9520 #### [facility] [address] [place], [address] Erythrocyte distribution wid th ratioOrdered By: Nga Canela on 07-08-2024 Erythrocyte distribution width (RBC) [Ratio] 15.9 % High 11.6-14.6 [facility] Erythrocyte distribution wid th standard deviationOrdered By: Nga Canela on 07-08-2024 Erythrocyte distribution width (RBC) [Ratio] 47.8 fl High 35.1-43.9 [facility] Glomerular filtration rate ( GFR) estimation/1.73 sq m using serum, plasma, or whole bOrdered By: Nga Canela on 07-08-2024 GFR/1.73 sq M.predicted among non-blacks MDRD (S/P/Bld) [Vol rate/Area] 86 mL/min/{1.73_m2} >60 [facility] Comment on above: mL/min/1.73m2 CKD-EP I Creatinine Equation (2020) Hematocrit Auto (Bld) [Volum e fraction]Ordered By: Nga Canela on 07-08-2024 Hematocrit (Bld) [Volume fraction] 35.5 % Low 40-54 [facility] Hemoglobin A1con 07-08-2024 HbA1c (Bld) [Mass fraction] 7.7 % Normal <=5.6 [facility] Comment on above: Performed By: #### L 100.0500, L501.9979, L3300.6400, L500.4050, L501.9557 ####[facility] [id number] [place], [address] Hemoglobin A1c percentageOrd ered By: Nga Canela on 07-08-2024 HbA1c (Bld) [Mass fraction] 7.7 % >5.7 [facility] Hemoglobin measurementOrdere d By: Nga Canela on 07-08-2024 Hemoglobin (Bld) [Mass/Vol] 11.1 g/dL Low 13.0-16.5 [facility] Laboratory - Chemistry and C hemistry - challengeOrdered By: Nga Canela on 07-08-2024 AST [Catalytic activity/Vol] 24 U/L <38 [facility] MCV (mean corpuscular volume ) determinationOrdered By: Nga Canela on 07-08-2024 MCV (RBC) [Entitic vol] 83.1 fL 80-94 [facility] Mean corpuscular hemoglobin (MCH) determinationOrdered By: Nga Canela on 07-08-2024 MCH (RBC) [Entitic mass] 26.0 pg Low 27.0-32.0 [facility] Mean corpuscular hemoglobin concentration (MCHC) determinationOrdered By: Nga Canela on 07-08-2024 MCHC (RBC) [Mass/Vol] 31.3 g/dL Low 32-36 [facility] Mean platelet volume determi nationOrdered By: Nga Canela on 07-08-2024 Platelet mean volume (Bld) [Entitic vol] 10.9 fL 6.2-12.0 [facility] Platelet countOrdered By: Do ra Canela on 07-08-2024 Platelets (Bld) [#/Vol] 399 10*3/uL 150-450 [facility] Potassium measurement (mass/ volume)Ordered By: Nga Canela on 07-08-2024 Potassium (Unsp spec) [Mass/Vol] 4.3 mmol/L 3.3-5.1 [facility] RBC Auto (Bld) [#/Vol]Ordere d By: Nga Canela on 07-08-2024 RBC (Bld) [#/Vol] 4.27 10*6/uL Low 4.6-6.[address] [facility] Serum creatinine measurement (mass/volume)Ordered By: Nga Canela on 07-08-2024 Creatinine [Mass/Vol] 0.94 mg/dL 0.70-1.20 [facility] Serum globulin measurementOr dered By: Nga Canela on 07-08-2024 Globulin (S) [Mass/Vol] 3.7 g/dL 2.2-4.2 [facility] Serum glucose measurement (m ass/volume)Ordered By: Nga Canela on 07-08-2024 Glucose [Mass/Vol] 241 mg/dL High 70-99 [facility] Serum or plasma alanine ivey otransferase (ALT) measurementOrdered By: Nga Canela on 07-08-2024 ALT [Catalytic activity/Vol] 38 U/L <47 [facility] Serum or plasma albumin maya urement (mass/volume)Ordered By: Nga Canela on 07-08-2024 Albumin [Mass/Vol] 3.5 g/dL 3.4-4.8 [facility] Serum or plasma albumin/glob ulin mass ratioOrdered By: Nga Canela on 07-08-2024 Albumin/Globulin [Mass ratio] 1.0 {ratio} 0.9-2.4 [facility] Serum or plasma alkaline silvia sphatase measurementOrdered By: Nga Canela on 07-08-2024 ALP [Catalytic activity/Vol] 67 U/L 40-129 [facility] Serum or plasma calcium maya urement (mass/volume)Ordered By: Nga Canela on 07-08-2024 Calcium [Mass/Vol] 9.3 mg/dL 7.6-11.0 [facility] Serum or plasma urea nitroge n measurement (mass/volume)Ordered By: Nga Canela on 07-08-2024 Urea nitrogen [Mass/Vol] 19 mg/dL 4-19 [facility] Serum prealbumin measurement by immunoassayOrdered By: Nga Canela on 07-08-2024 Prealbumin [Mass/Vol] 24 mg/dL 9-32 [facility] Comment on above: Performed at: - [facility] [address] [id number] Director: Turner Booige PhD, Phone: [phone] Sodium levelOrdered By: Nga Canela on 07-08-2024 Sodium [Moles/Vol] 139 mmol/L 133-145 [facility] TSH DL <= 0.005 mIU/L QnOrde red By: Nga Canela on 07-08-2024 TSH Qn 1.860 uIU/mL 0.300-4.20 0 [facility] Thyroid Stim Hormone (TSH)on 07-08-2024 TSH 1.860 uIU/mL Normal 0.300-4.20 0 [facility] Comment on above: Performed By: #### L 100.0500, L501.9985, L3300.6400, L500.4050, L501.9520 ####[facility] [address] [facility]. [place], [place], [id number] Total proteinOrdered By: Fadi Canela on 07-08-2024 Protein [Mass/Vol] 7.1 g/dL 5.9-8.4 [facility] White blood cell (WBC) count Ordered By: Nga Canela on 07-08-2024 WBC (Bld) [#/Vol] 6.1 10*3/uL 4.4-11.0 [facility] History AND Physic monet 07-08-2024 Wound Ctr History & Physical [facility] [address] [place] [address] H P Exam - Wound Care 07/08/24 1045 MR#: [id number] Acct: [id number] Name: CORINNE CORREA Rep #: [id number] : 1950 74 From: Nga Canela NP [employer] PCP: SON Amador Status:REG RCR Location: History of Present Illness Date of Service: 07/08/24 Chief Complaint: Follow-up on his abdominal wound nonhealing since December History of Wound: 74-year-old white male who went in for an umbilical hernia repair and his duodenum got perforated ended up with a tracheotomy and placed in a coma and woke up in March. Patient has had a wound VAC and several other dressing changes currently he is just on an antibiotic cephalexin and covering it with gauze. 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 Patient is a diabetic and is currently on both insulin and Farxiga. [facility] Medical History Vitamin D deficiency GERD (gastroesophageal reflux disease) Dysphagia, pharyngeal phase Perforation of intestine HLD (hyperlipidemia) Anxiety Depression Infection following a procedure, other surgical site, subsequent encounter Acute and chronic respiratory failure with hypoxia Diabetes HTN (hypertension) Home Medications ???Medication ???Instructions ???Recorded ???Last Taken ???Type dapagliflozin propanediol 10 mg 10 mg PO DAILY 10/31/21 Unknown Hi story tablet (Farxiga) amlodipine 5 mg tablet 5 mg PO QDAY 06/18/24 Unknown Hist ory atorvastatin 20 mg tablet 20 mg PO QDAY 06/18/24 Unknown His tory escitalopram oxalate 10 mg tablet 10 mg PO QDAY 06/18/24 Unknown Hi story insulin glargine 100 unit/mL 10 unit subcut QAM 06/18/24 Unknow n History subcutaneous solution (Lantus U-100 Insulin) levothyroxine 50 mcg capsule 50 mcg PO QDAY 06/18/24 Unknown Hi story losartan 100 mg tablet 100 mg PO QDAY 06/18/24 Unknown Hi story metformin 500 mg tablet,extended 1,000 mg PO BID 06/18/24 Unknown H istory release 24 hr metoprolol tartrate 25 mg tablet 25 mg PO QDAY 06/18/24 Unknown His tory cephalexin 250 mg capsule 250 mg PO 4X/DAY 07/08/24 Unknown History Allergy/AdvReac Type Severity Reaction Status Date / Time No Known Allergies Allergy Verified 10/16/22 19:44 Surgical History Gastrostomy status Tracheostomy status Social History Smoking Status: Never smoker alcohol intake: current alcohol intake frequency: a few times a month Alcohol type: beer and wine ROS Constitutional Constitutional: Reports systems reviewed and no addt'l complaints, except as documented Eyes Eyes: Reports systems reviewed and no addt'l complaints, except as documented ENT HEENT: Reports systems reviewed and no addt'l complaints, except as documented Cardiovascular Cardiovascular: Reports systems reviewed and no addt'l complaints, except as documented Respiratory/Chest Respiratory/Chest: Reports systems reviewed and no addt'l complaints, except as documented Gastrointestinal Gastrointestinal: Reports systems reviewed and no addt'l complaints, except as documented Genitourinary Genitourinary: Reports systems reviewed and no addt'l complaints, except as documented Musculoskeletal Musculoskeletal: Reports systems reviewed and no addt'l complaints, except as documented Integumentary Integumentary: Reports wounds and other Details: Open area of skin nonhealing boggy and softness and nontender over most of the abdomen Neurologic Neurologic: Reports systems reviewed and no addt'l complaints, except as documented Psychiatric Psychiatric: Reports systems reviewed and no addt'l complaints, except as documented Endocrine Endocrinology: Reports systems reviewed and no addt'l complaints, except as documented Hematologic/Lymphatic Hematologic/Lymphatic: Reports systems reviewed and no addt'l complaints, except as documented Allergic/Immunologic Allergic/Immunologic: Reports systems reviewed and no addt'l complaints, except as documented Vital Signs Vital Signs Vital Signs: 07/08/24 08:34 Temperature 97.7 F L Temperature Source Temporal Pulse Rate 96 Respiratory Rate 18 Blood Pressure 152/79 H Blood Pressure Mean 103 Blood Pressure Source Monitor Blood Pressure Position Semi-Fowlers Blood Pressure Location Left Arm Physical Exam Const oriented x3 General Appearance: cooperative Exam Limitations: no limitations HEENT normocephalic Head and Scalp: normal to inspection Face and Sinus: normal facial exam Eyes General Eye: haley (more content not included)... Normal [facility] Gastroenterology Visit Repor ton 06-18-2024 Gastroenterology Visit Report [facility] [address] [place] [address] OFFICE VISIT Date of Service: 06/18/24 MR#: [id number] Acct: [id number] Name: CORINNE CORREA Rep #: [id number] : 1950 Provider: SON clark Age/Sex: 74/M Location: [facility] Status: Signed Intake Vital Signs 04/18/24 23:28 Height 5 ft 10.08 in Intake Visit Reasons: Peg Tube Removal Allergies No Known Allergies Allergy (Verified 10/16/22 19:44) Medications ???Medication ???Instructions ???Recorded ???Confirmed ???Type dapagliflozin propanediol 10 mg 10 mg PO 10/31/21 06/18/24 History tablet (Farxiga) amlodipine 5 mg tablet 5 mg PO QDAY 06/18/24 06/18/24 His tory atorvastatin 20 mg tablet 20 mg PO QDAY 06/18/24 06/18/24 Hi story escitalopram oxalate 10 mg tablet 10 mg PO QDAY 06/18/24 06/18/24 H istory insulin glargine 100 unit/mL 10 unit subcut QAM 06/18/24 History subcutaneous solution (Lantus U-100 Insulin) levothyroxine 50 mcg capsule 50 mcg PO QDAY 06/18/24 06/18/24 H istory losartan 100 mg tablet 100 mg PO QDAY 06/18/24 06/18/24 H istory metformin 500 mg tablet,extended 1,000 mg PO BID 06/18/24 06/18/24 History release 24 hr metoprolol tartrate 25 mg tablet 25 mg PO QDAY 06/18/24 06/18/24 Hi story Have you fallen in the past year?: No PFSH Medical History Vitamin D deficiency GERD (gastroesophageal reflux disease) Dysphagia, pharyngeal phase Perforation of intestine HLD (hyperlipidemia) Anxiety Depression Infection following a procedure, other surgical site, subsequent encounter Acute and chronic respiratory failure with hypoxia Diabetes HTN (hypertension) Surgical History Gastrostomy status Tracheostomy status Social History Smoking Status: Former smoker alcohol intake: current alcohol intake frequency: a few times a month Alcohol type: beer and wine HPI HPI Details: CORINNE CORRAE, is a 74 M who presents to the office today for establishment with [facility] for removal of his percutaneous endoscopic gastrostomy tube. He has a past medical history of insulin-dependent diabetes, hypertension and chronic indwelling tracheostomy. He reports that the tracheostomy and gastrostomy tubes were due to a surgical complication this past December where he became hypoxic and dependent on ventilator support. He presents to me this afternoon, alert and oriented, of sound mind and decision. He reports eating solids foods for over 2 months now without any difficulties. He states that he has a scheduled appointment for the tracheostomy to be decannulated as well. He denies other GI needs at this time. He has a functioning wound vacuum attached to abdominal wall. ROS Const Constitutional: Positive for weight change; No fatigue or fever(s) ENT ENT: No abnormal hearing or difficulty swallowing Resp Respiratory: No cough Cardio Cardiology: Positive for leg pain with exertion; No chest pain at rest or chest pain with exertion Gastro GI: No abdominal pain, belching, bloating, change in bowel habits, change in stool character, coffee ground emesis, constipation, cramping, diarrhea, heartburn, difficulty swallowing, feeling full early, excessive flatus, incontinent of stools, Vomiting blood/hematemesis, Blood in stool, loose stools, Black,tarry stools, nausea/dyspepsia, pain with swallowing, vomiting or other Genitourinary Male: No difficulty urinating Musc Musculoskeletal: Positive for abnormal gait, muscle cramps, muscle weakness and leg pain with exertion; No joint pain Skin Skin: No yellowing of the eye or itchy eyes Neuro Neurology: Positive for abnormal gait; No abnormal hearing Psych Psychiatric: No anxiety and No depression Endo Endocrine: Positive for weight change; No fatigue Aller/Imm Allergy/Immunologic: No food intolerance or itchy eyes Villa/Lymp Hematologic/Lymphatic: No easy bleeding or easy bruising Exam Const General: cooperative, healthy appearing, comfortable and no acute distress Nutritional Appearance: obese centrally obese Orientation: alert and oriented x3 HENMT Head: normal to inspection Ears: hearing grossly normal bilaterally Nose: external nose normal Face and sinus: normal facial exam and face symmetric Eyes General: appearance normal, both eyes and all related structures Sclera: sclerae normal Neck Neck: normal visual inspection and full ROM Neck mass: No Chest Chest palpation inspection: normal inspection of the chest Resp Effort Inspection: normal respiratory effort, able to speak in complete sentences and symmetric chest movement GI Inspection: obesity Auscultation: (more content not included)... Normal [facility] Emergency Department Summary on 04-18-2024 Emergency Department Summary [facility] Department [address] [place] [address] Emergency Department Summary 04/18/24 MR#: [id number] Acct: [id number] Name: CORINNE CORREA Rep #: [id number] : 1950 74 From: Jacob Rios DO PCP: Dr. Bhavik aJmeson MD Status:DEP ER Location: ED HPI History of Present Illness Chief Complaint: Wound Check Informant: patient and EMS Narrative Narrative: Patient is a 74-year-old male with past medical history of insulin-dependent diabetes and hypertension and chronic indwelling tracheostomy. He states that he has had some sinus congestion and drainage for the past 2 weeks and recently has been on antibiotics. He reports that he has had increased drainage because of that which seems to obstruct/plug his tracheostomy. He states this evening he was coughing and in doing so dislodge the trach and therefore was sent to the hospital for evaluation. [facility] Medical History Diabetes HTN (hypertension) Home Medications ???Medication ???Instructions ???Recorded ???Last Taken ???Type dapagliflozin propanediol 10 mg 10 mg PO 10/31/21 Unknown History tablet (Farxiga) insulin lispro protamine-lispro 3 unit subcut 10/31/21 Unknown History 100 unit/mL (50-50) subcutaneous pen (Humalog Mix 50-50 KwikPen) lisinopril 20 mg tablet 20 mg PO DAILY 10/31/21 Unknown History metformin 500 mg tablet,extended 500 mg PO 10/31/21 Unknown History release 24 hr Allergy/AdvReac Type Severity Reaction Status Date / Time No Known Allergies Allergy Verified 10/16/22 19:44 Social History Smoking Status: Former smoker alcohol intake: current alcohol intake frequency: a few times a month Alcohol type: beer and wine ROS ROS ED Constitutional Constitutional ED: Denies chills or fever(s) Eyes Eyes: Denies change in vision ENT ENT ED: Reports rhinorrhea Cardiovascular Cardiovascular: Denies chest pain Respiratory/Chest Respiratory/Chest: Reports cough; Denies dyspnea Gastrointestinal Gastrointestinal: Denies abdominal pain, diarrhea, nausea or vomiting Musculoskeletal Musculoskeletal: Denies neck pain Integumentary Denies rash Neurologic Neurologic: Denies headache(s) Hematologic/Lymphatic Hematologic/Lymphatic: Denies easy bleeding or easy bruising EXAM Physical Exam Const Vital Signs: 04/18/24 23:28 04/19/24 01:20 Temperature 98.6 F 98.1 F Temperature Source Oral Pulse Rate 88 78 Respiratory Rate 18 16 Blood Pressure 130/67 H 128/30 H Blood Pressure Mean 88 62 Pulse Ox 94 98 Oxygen Delivery Method Trach Collar Oxygen Flow Rate (L/min) 2 Positive well nourished, well developed and obese General Appearance ED: well developed Nutritional Appearance: obese HEENT HEENT Narrative: Normocephalic atraumatic No pain on palpation over top the maxillary frontal or ethmoid sinuses Eyes PERRL and EOMs intact bilaterally General Eye ED: Negative for scleral icterus Neck supple Neck Narrative: Tracheostomy site is clean dry and intact. No surrounding secondary soft tissue changes to suggest infection. No crepitance or subcutaneous emphysema noted. Chest Wall palpation of chest normal Resp normal respiratory effort and clear to auscultation bilaterally Resp Narrative: No nasal flaring retractions tachypnea or accessory muscle use Cardio regular rate and regular rhythm GI normal to inspection, nondistended, normoactive bowel sounds, non-tender, non-distended and no masses Auscultation: normoactive bowel sounds Palpation: soft Extremity normal to inspection Neuro oriented x3 and CN's II-XII intact bilaterally Sensorium / Orientation: alert Psych mental status grossly normal Skin no rashes or lesions noted MDM MDM MDM Narrative Medical decision making narrative: Patient arrived to the ER with stable vitals and despite dislodging his tracheostomy with coughing was not in respiratory distress. Upon arrival the tip of the tracheostomy was still present at the stoma site and therefore it was reinserted with manual pressure. Upon doing so there was clear mucus/excretions noted and therefore the trach was suctioned. After doing this the patient's breath sounds are overall clear he is not in respiratory distress and vitals are stable. He did report previous congestion over the last 2 weeks but is already done a round of antibiotics does not have pain with palpation over top his sinuses and the mucus is clear and not discolored and thereby have low concern for infectious process. Therefore as the tracheostomy has been replaced he is not in respiratory distress and vitals are stable I do not feel there is need for further workup and he is othe (more content not included)... Normal [facility] LABORATORYOrdered By: Viviana Aguirre on 03-26-2024 Glucose [Mass/Vol] 174 mg/dL High 82 - 115 mg/dL [facility] LABORATORYOrdered By: Heydi Arguello on 03-26-2024 Glucose [Mass/Vol] 147 mg/dL High 82 - 115 mg/dL [facility] LABORATORYOrdered By: Georgi Perez on 03-26-2024 Glucose [Mass/Vol] 194 mg/dL High 82 - 115 mg/dL [facility] LABORATORYOrdered By: Giorgi Ivory on 03-25-2024 Blood Glucose Testing Reason Routine (03/25/24 5:06 PM) [facility] LABORATORYOrdered By: Veronica Dunbar on 03-24-2024 Blood Glucose Testing Reason Routine (03/24/24 4:52 PM) [facility] LABORATORYOrdered By: Unique Medrano on 03-24-2024 Blood Glucose Testing Reason Routine (03/24/24 12:28 PM) [facility] .Auto Diffon 03-23-2024 Basophil, Absolute 0.1 10 3/mcL Normal 0.0-0.3 [facility] Comment on above: Performed By: #### A DARRIAN, BMP, ADIFF, CBC, GFR ####[address] [address] Basophils/100 WBC (Bld) 0.9 % Normal 0.0-2.5 [facility] Comment on above: Performed By: #### A DARRIAN, BMP, ADIFF, CBC, GFR ####[address] [address] Eosinophil, Absolute 0.3 10 3/mcL Normal 0.0-0.7 [facility] Comment on above: Performed By: #### A DARRIAN, BMP, ADIFF, CBC, GFR ####[address] [address] Eosinophils/100 WBC (Bld) 5.0 % Normal 0.0-6.0 [facility] Comment on above: Performed By: #### A DARRIAN, BMP, ADIFF, CBC, GFR ####[address] [address] Lymphocyte, Absolute 1.4 10 3/mcL Normal 0.9-4.3 [facility] Comment on above: Performed By: #### A DARRIAN, BMP, ADIFF, CBC, GFR ####[address] [address] Lymphocytes/100 WBC (Bld) 24.5 % Normal 20.0-40.0 [facility] Comment on above: Performed By: #### A DARRIAN, BMP, ADIFF, CBC, GFR ####[address] [address] Monocyte, Absolute 0.6 10 3/mcL Normal 0.1-1.4 [facility] Comment on above: Performed By: #### A DARRIAN, BMP, ADIFF, CBC, GFR ####[address] [address] Monocytes/100 WBC (Bld) 10.3 % Normal 2.0-13.0 [facility] Comment on above: Performed By: #### A DARRIAN, BMP, ADIFF, CBC, GFR ####[address] [address] Neutrophils/100 WBC (Bld) 59.3 % Normal 50.0-75.0 [facility] Comment on above: Performed By: #### A DARRIAN, BMP, ADIFF, CBC, GFR ####[address] [address] .GFRon 03-23-2024 GFR >60 Normal [facility] Comment on above: Result Comment: GFR Population mean for , Non- Americans Ages 20-29 = 116 mL/min/1.73 sq.m. Ages 30-39 = 107 mL/min/1.73 sq.m. Ages 40-49 = 99 mL/min/1.73 sq.m. Ages 50-59 = 93 mL/min/1.73 sq.m. Ages 60-69 = 85 mL/min/1.73 sq.m. Ages 70+ = 75 mL/min/1.73 sq.m.Chronic Kidney Disease: Less than 60 mL/min/1.73 square metersEnd Stage Renal Disease: Less than 15 mL/min/1.73 square meters Performed By: #### A DARRIAN, BMP, ADIFF, CBC, GFR ####[address] [address] GFR Non- >60 Normal [facility] Comment on above: Result Comment: GFR Population mean for , Non- Americans Ages 20-29 = 116 mL/min/1.73 sq.m. Ages 30-39 = 107 mL/min/1.73 sq.m. Ages 40-49 = 99 mL/min/1.73 sq.m. Ages 50-59 = 93 mL/min/1.73 sq.m. Ages 60-69 = 85 mL/min/1.73 sq.m. Ages 70+ = 75 mL/min/1.73 sq.m.Chronic Kidney Disease: Less than 60 mL/min/1.73 square metersEnd Stage Renal Disease: Less than 15 mL/min/1.73 square meters Performed By: #### A DARRIAN, BMP, ADIFF, CBC, GFR ####[address] [address] .NEUABSon 03-23-2024 Neutrophil, Absolute 3.4 10 3/mcL Normal 2.3-8.1 [facility] Comment on above: Performed By: #### A DARRIAN, BMP, ADIFF, CBC, GFR ####[address] [address] BMPon 03-23-2024 BUN/Creatinine Ratio 38.0 ratio High 10.0-22.0 [facility] Comment on above: Performed By: #### A DARRIAN, BMP, ADIFF, CBC, GFR ####[address] [address] Calcium [Mass/Vol] 7.9 mg/dL Low 8.7-10.4 [facility] Comment on above: Performed By: #### A DARRIAN, BMP, ADIFF, CBC, GFR ####[address] [address] Chloride [Moles/Vol] 111 mmol/L High 98-110 [facility] Comment on above: Performed By: #### A DARRIAN, BMP, ADIFF, CBC, GFR ####[address] [address] CO2 [Moles/Vol] 27 mmol/L Normal 22-32 [facility] Comment on above: Performed By: #### A DARRIAN, BMP, ADIFF, CBC, GFR ####[address] [address] Creatinine [Mass/Vol] 0.71 mg/dL Normal 0.60-1.40 [facility] Comment on above: Result Comment: Test ing performed on Zeppelin analyzer using enzymatic creatinine methodology. Performed By: #### A DARRIAN, BMP, ADIFF, CBC, GFR ####[address] [address] Electrolyte Balance 7.0 mEq/L Normal 4.0-15.0 [facility] Comment on above: Performed By: #### A DARRIAN, BMP, ADIFF, CBC, GFR ####[address] [address] Glucose [Mass/Vol] 160 mg/dL High 82-115 [facility] Comment on above: Performed By: #### A DARRIAN, BMP, ADIFF, CBC, GFR ####[address] [address] Potassium [Moles/Vol] 4.4 mmol/L Normal 3.5-5.0 [facility] Comment on above: Performed By: #### A DARRIAN, BMP, ADIFF, CBC, GFR ####[address] [address] Sodium [Moles/Vol] 145 mmol/L Normal 136-145 [facility] Comment on above: Performed By: #### A DARRIAN, BMP, ADIFF, CBC, GFR ####[place] [address] Urea nitrogen [Mass/Vol] 27.0 mg/dL High 8.0-22.0 [facility] Comment on above: Performed By: #### A DARRIAN, BMP, ADIFF, CBC, GFR ####[place] [address] CBCon 03-23-2024 Erythrocyte distribution width (RBC) [Ratio] 15.8 % High 11.5-15.5 [facility] Comment on above: Performed By: #### A DARRIAN, BMP, ADIFF, CBC, GFR ####[place] [address] Hematocrit (Bld) [Volume fraction] 26.3 % Low 40.0-52.0 [facility] Comment on above: Performed By: #### A DARRIAN, BMP, ADIFF, CBC, GFR ####[place] [address] Hgb 8.5 G/dL Low 13.0-17.5 [facility] Comment on above: Performed By: #### A DARRIAN, BMP, ADIFF, CBC, GFR ####[place] [address] MCH (RBC) [Entitic mass] 28.9 pg Normal 27.0-33.0 [facility] Comment on above: Performed By: #### A DARRIAN, BMP, ADIFF, CBC, GFR ####[place] [address] MCHC 32.5 G/dL Normal 32.0-36.0 [facility] Comment on above: Performed By: #### A DARRIAN, BMP, ADIFF, CBC, GFR ####[place] [address] MCV (RBC) [Entitic vol] 89.1 fL Normal 81.0-100.0 [facility] Comment on above: Performed By: #### A DARRIAN, BMP, ADIFF, CBC, GFR ####[place] [address] Platelet 336 10 3/mcL Normal 150-450 [facility] Comment on above: Performed By: #### A DARRIAN, BMP, ADIFF, CBC, GFR ####[address] [address] Platelet mean volume (Bld) [Entitic vol] 9.0 fL Normal 6.4-10.5 [facility] Comment on above: Performed By: #### A DARRIAN, BMP, ADIFF, CBC, GFR ####[address] [address] RBC 2.95 10 6/mcL Low 4.50-6.00 [facility] Comment on above: Performed By: #### A DARRIAN, BMP, ADIFF, CBC, GFR ####[address] [address] WBC 5.8 10 3/mcL Normal 4.5-10.8 [facility] Comment on above: Performed By: #### A DARRIAN, BMP, ADIFF, CBC, GFR ####[address] [address] CWDPon 03-23-2024 CWDP Normal [facility] LABORATORYOrdered By: SYSTEM SYSTEM on 03-23-2024 Basophils (Bld) [#/Vol] 0.1 103/mcL Normal 0.0 - 0.3 10^3/mcL AH Workflow SS Basophils/100 WBC (Bld) 0.9 % Normal 0.0 - 2.5 % AH Workflow SS Calcium [Mass/Vol] 7.9 mg/dL Low 8.7 - 10. 4 mg/dL ADM SS Chloride [Moles/Vol] 111 mmol/L High 98 - 11 0 mEq/L AH ADM SS CO2 [Moles/Vol] 27 mmol/L Normal 22 - 32 mEq/L AH ADM SS Creatinine [Mass/Vol] 0.71 mg/dL Normal 0.60 - 1.40 mg/dL ADM SS Comment on above: Interpretive Data: T esting performed on Zeppelin analyzer using enzymatic creatinine methodology. Electrolyte Balance 7.0 mEq/L Normal 4.0 - 15 .0 mEq/L ADM SS Eosinophils (Bld) [#/Vol] 0.3 103/mcL Normal 0.0 - 0.7 10^3/mcL Workflow SS Eosinophils/100 WBC (Bld) 5.0 % Normal 0.0 - 6.0 % Workflow SS Erythrocyte distribution width (RBC) [Ratio] 15.8 % High 11.5 - 15.5 % Workflow SS GFR/1.73 sq M.predicted among blacks MDRD (S/P/Bld) [Vol rate/Area] ml/min/1.73sqm Invalid Interpretation Code Chemistry S Comment on above: Interpretive Data: GFR Population mean for , Non- Americans Ages 20-29 = 116 mL/min/1.73 sq.m. Ages 30-39 = 107 mL/min/1.73 sq.m. Ages 40-49 = 99 mL/min/1.73 sq.m. Ages 50-59 = 93 mL/min/1.73 sq.m. Ages 60-69 = 85 mL/min/1.73 sq.m. Ages 70+ = 75 mL/min/1.73 sq.m. Chronic Kidney Disease: Less than 60 mL/min/1.73 square meters End Stage Renal Disease: Less than 15 mL/min/1.73 square meters GFR/1.73 sq M.predicted among non-blacks MDRD (S/P/Bld) [Vol rate/Area] ml/min/1.73sqm Invalid Interpretation Code [facility] Chemistry S Comment on above: Interpretive Data: GFR Population mean for , Non- Americans Ages 20-29 = 116 mL/min/1.73 sq.m. Ages 30-39 = 107 mL/min/1.73 sq.m. Ages 40-49 = 99 mL/min/1.73 sq.m. Ages 50-59 = 93 mL/min/1.73 sq.m. Ages 60-69 = 85 mL/min/1.73 sq.m. Ages 70+ = 75 mL/min/1.73 sq.m. Chronic Kidney Disease: Less than 60 mL/min/1.73 square meters End Stage Renal Disease: Less than 15 mL/min/1.73 square meters Glucose [Mass/Vol] 160 mg/dL High 82 - 115 mg/dL ADM SS Hematocrit (Bld) [Volume fraction] 26.3 % Low 40.0 - 52.0 % AH Workflow SS Hemoglobin (Bld) [Mass/Vol] 8.5 G/dL Low 13.0 - 17.5 G/dL AH Workflow SS Lymphocytes (Bld) [#/Vol] 1.4 103/mcL Normal 0.9 - 4.3 10^3/mcL AH Workflow SS Lymphocytes/100 WBC (Bld) 24.5 % Normal 20.0 - 40.0 % AH Workflow SS MCH (RBC) [Entitic mass] 28.9 pg Normal 27.0 - 33.0 pg AH Workflow SS MCHC 32.5 G/dL Normal 32.0 - 36.0 G/dL AH Workflow SS MCV (RBC) [Entitic vol] 89.1 fL Normal 81.0 - 100.0 fL AH Workflow SS Monocytes (Bld) [#/Vol] 0.6 103/mcL Normal 0.1 - 1.4 10^3/mcL AH Workflow SS Monocytes/100 WBC (Bld) 10.3 % Normal 2.0 - 13.0 % AH Workflow SS Neutrophils (Bld) [#/Vol] 3.4 103/mcL Normal 2.3 - 8.1 10^3/mcL AH Workflow SS Neutrophils/100 WBC (Bld) 59.3 % Normal 50.0 - 75.0 % AH Workflow SS Platelet mean volume (Bld) [Entitic vol] 9.0 fL Normal 6.4 - 10.5 fL AH Workflow SS Platelets (Bld) [#/Vol] 336 103/mcL Normal 150 - 450 10^3/mcL AH Workflow SS Potassium [Moles/Vol] 4.4 mmol/L Normal 3.5 - 5.0 mEq/L AH ADM SS RBC (Bld) [#/Vol] 2.95 106/mcL Low 4.50 - 6.00 10^6/mcL AH Workflow SS Sodium [Moles/Vol] 145 mmol/L Normal 136 - 145 mEq/L AH ADM SS Urea nitrogen [Mass/Vol] 27.0 mg/dL High 8.0 - 22.0 mg/dL AH ADM SS Urea nitrogen/Creatinine [Mass ratio] 38.0 ratio High 10.0 - 22.0 ratio AH ADM SS WBC (Bld) [#/Vol] 5.8 103/mcL Normal 4.5 - 10.8 10^3/mcL AH Workflow SS .GFRon 03-22-2024 GFR >60 Normal [facility] Comment on above: Result Comment: GFR Population mean for , Non- Americans Ages 20-29 = 116 mL/min/1.73 sq.m. Ages 30-39 = 107 mL/min/1.73 sq.m. Ages 40-49 = 99 mL/min/1.73 sq.m. Ages 50-59 = 93 mL/min/1.73 sq.m. Ages 60-69 = 85 mL/min/1.73 sq.m. Ages 70+ = 75 mL/min/1.73 sq.m.Chronic Kidney Disease: Less than 60 mL/min/1.73 square metersEnd Stage Renal Disease: Less than 15 mL/min/1.73 square meters Performed By: #### B MP, GFR ####[address] [address] GFR Non- >60 [facility] MAIN Comment on above: Result Comment: GFR Population mean for , Non- Americans Ages 20-29 = 116 mL/min/1.73 sq.m. Ages 30-39 = 107 mL/min/1.73 sq.m. Ages 40-49 = 99 mL/min/1.73 sq.m. Ages 50-59 = 93 mL/min/1.73 sq.m. Ages 60-69 = 85 mL/min/1.73 sq.m. Ages 70+ = 75 mL/min/1.73 sq.m.Chronic Kidney Disease: Less than 60 mL/min/1.73 square metersEnd Stage Renal Disease: Less than 15 mL/min/1.73 square meters Performed By: #### B MP, GFR ####[address] [address] BMPon 03-22-2024 BUN/Creatinine Ratio 40.3 ratio High 10.0-22.0 [facility] Comment on above: Performed By: #### B MP, GFR ####[address] [address] Calcium [Mass/Vol] 8.0 mg/dL Low 8.7-10.4 [facility] Comment on above: Performed By: #### B MP, GFR ####[address] [address] Chloride [Moles/Vol] 112 mmol/L High 98-110 [facility] Comment on above: Performed By: #### B MP, GFR ####[address] [address] CO2 [Moles/Vol] 30 mmol/L Normal 22-32 [facility] Comment on above: Performed By: #### B MP, GFR ####[place] [id number] Creatinine [Mass/Vol] 0.72 mg/dL Normal 0.60-1.40 [facility] Comment on above: Result Comment: Test ing performed on Zeppelin analyzer using enzymatic creatinine methodology. Performed By: #### B MP, GFR ####[place] [address] Electrolyte Balance 5.0 mEq/L Normal 4.0-15.0 [facility] Comment on above: Performed By: #### B MP, GFR ####[place] [address] Glucose [Mass/Vol] 185 mg/dL High 82-115 [facility] Comment on above: Performed By: #### B MP, GFR ####[place] [id number] Potassium [Moles/Vol] 4.2 mmol/L Normal 3.5-5.0 [facility] Comment on above: Performed By: #### B MP, GFR ####[address] [address] Sodium [Moles/Vol] 147 mmol/L High 136-145 [facility] Comment on above: Performed By: #### B MP, GFR ####[address] [address] Urea nitrogen [Mass/Vol] 29.0 mg/dL High 8.0-22.0 [facility] Comment on above: Performed By: #### B MP, GFR ####[address] [address] LABORATORYOrdered By: SYSTEM SYSTEM on 03-22-2024 Calcium [Mass/Vol] 8.0 mg/dL Low 8.7 - 10. 4 mg/dL ADM SS Chloride [Moles/Vol] 112 mmol/L High 98 - 11 0 mEq/L AH ADM SS CO2 [Moles/Vol] 30 mmol/L Normal 22 - 32 mEq/L AH ADM SS Creatinine [Mass/Vol] 0.72 mg/dL Normal 0.60 - 1.40 mg/dL AH ADM SS Comment on above: Interpretive Data: T esting performed on Zeppelin analyzer using enzymatic creatinine methodology. Electrolyte Balance 5.0 mEq/L Normal 4.0 - 15 .0 mEq/L ADM SS GFR/1.73 sq M.predicted among blacks MDRD (S/P/Bld) [Vol rate/Area] ml/min/1.73sqm Invalid Interpretation Code [facility] Chemistry S Comment on above: Interpretive Data: GFR Population mean for , Non- Americans Ages 20-29 = 116 mL/min/1.73 sq.m. Ages 30-39 = 107 mL/min/1.73 sq.m. Ages 40-49 = 99 mL/min/1.73 sq.m. Ages 50-59 = 93 mL/min/1.73 sq.m. Ages 60-69 = 85 mL/min/1.73 sq.m. Ages 70+ = 75 mL/min/1.73 sq.m. Chronic Kidney Disease: Less than 60 mL/min/1.73 square meters End Stage Renal Disease: Less than 15 mL/min/1.73 square meters GFR/1.73 sq M.predicted among non-blacks MDRD (S/P/Bld) [Vol rate/Area] ml/min/1.73sqm Invalid Interpretation Code [facility] Chemistry S Comment on above: Interpretive Data: GFR Population mean for , Non- Americans Ages 20-29 = 116 mL/min/1.73 sq.m. Ages 30-39 = 107 mL/min/1.73 sq.m. Ages 40-49 = 99 mL/min/1.73 sq.m. Ages 50-59 = 93 mL/min/1.73 sq.m. Ages 60-69 = 85 mL/min/1.73 sq.m. Ages 70+ = 75 mL/min/1.73 sq.m. Chronic Kidney Disease: Less than 60 mL/min/1.73 square meters End Stage Renal Disease: Less than 15 mL/min/1.73 square meters Glucose [Mass/Vol] 185 mg/dL High 82 - 115 mg/dL ADM SS Potassium [Moles/Vol] 4.2 mmol/L Normal 3.5 - 5.0 mEq/L AH ADM SS Sodium [Moles/Vol] 147 mmol/L High 136 - 145 mEq/L AH ADM SS Urea nitrogen [Mass/Vol] 29.0 mg/dL High 8.0 - 22.0 mg/dL AH ADM SS Urea nitrogen/Creatinine [Mass ratio] 40.3 ratio High 10.0 - 22.0 ratio AH ADM SS .Auto Diffon 03-21-2024 Basophil, Absolute 0.0 10 3/mcL Normal 0.0-0.3 [facility] Comment on above: Performed By: #### G FR, ANEU, CBC, ADIFF, BMP ####[address] [address] Basophils/100 WBC (Bld) 0.5 % Normal 0.0-2.5 [facility] Comment on above: Performed By: #### G FR, ANEU, CBC, ADIFF, BMP ####[address] [address] Eosinophil, Absolute 0.3 10 3/mcL Normal 0.0-0.7 [facility] Comment on above: Performed By: #### G FR, ANEU, CBC, ADIFF, BMP ####[address] [address] Eosinophils/100 WBC (Bld) 6.4 % High 0.0-6.0 [facility] Comment on above: Performed By: #### G FR, ANEU, CBC, ADIFF, BMP ####[place] [id number] [address] [place] [address] Lymphocyte, Absolute 1.2 10 3/mcL Normal 0.9-4.3 [facility] Comment on above: Performed By: #### G FR, ANEU, CBC, ADIFF, BMP ####[address] [address] Lymphocytes/100 WBC (Bld) 21.3 % Normal 20.0-40.0 [facility] Comment on above: Performed By: #### G FR, ANEU, CBC, ADIFF, BMP ####[address] [address] Monocyte, Absolute 0.6 10 3/mcL Normal 0.1-1.4 [facility] Comment on above: Performed By: #### G FR, ANEU, CBC, ADIFF, BMP ####[address] [address] Monocytes/100 WBC (Bld) 11.0 % Normal 2.0-13.0 [facility] Comment on above: Performed By: #### G FR, ANEU, CBC, ADIFF, BMP ####[address] [address] Neutrophils/100 WBC (Bld) 60.8 % Normal 50.0-75.0 [facility] Comment on above: Performed By: #### G FR, ANEU, CBC, ADIFF, BMP ####[place] [address] .GFRon 03-21-2024 GFR Non- >60 [facility] MAIN Comment on above: Result Comment: GFR Population mean for , Non- Americans Ages 20-29 = 116 mL/min/1.73 sq.m. Ages 30-39 = 107 mL/min/1.73 sq.m. Ages 40-49 = 99 mL/min/1.73 sq.m. Ages 50-59 = 93 mL/min/1.73 sq.m. Ages 60-69 = 85 mL/min/1.73 sq.m. Ages 70+ = 75 mL/min/1.73 sq.m.Chronic Kidney Disease: Less than 60 mL/min/1.73 square metersEnd Stage Renal Disease: Less than 15 mL/min/1.73 square meters Performed By: #### G FR, ANEU, CBC, ADIFF, BMP ####[address] [address] GFR >60 Normal [facility] Comment on above: Result Comment: GFR Population mean for , Non- Americans Ages 20-29 = 116 mL/min/1.73 sq.m. Ages 30-39 = 107 mL/min/1.73 sq.m. Ages 40-49 = 99 mL/min/1.73 sq.m. Ages 50-59 = 93 mL/min/1.73 sq.m. Ages 60-69 = 85 mL/min/1.73 sq.m. Ages 70+ = 75 mL/min/1.73 sq.m.Chronic Kidney Disease: Less than 60 mL/min/1.73 square metersEnd Stage Renal Disease: Less than 15 mL/min/1.73 square meters Performed By: #### G FR, ANEU, CBC, ADIFF, BMP ####[address] [address] .NEUABSon 03-21-2024 Neutrophil, Absolute 3.3 10 3/mcL Normal 2.3-8.1 [facility] Comment on above: Performed By: #### G FR, ANEU, CBC, ADIFF, BMP ####[address] [address] BMPon 03-21-2024 BUN/Creatinine Ratio 38.6 ratio High 10.0-22.0 [facility] Comment on above: Performed By: #### G FR, ANEU, CBC, ADIFF, BMP ####[address] [address] Calcium [Mass/Vol] 7.9 mg/dL Low 8.7-10.4 [facility] Comment on above: Performed By: #### G FR, ANEU, CBC, ADIFF, BMP ####[address] [address] Chloride [Moles/Vol] 117 mmol/L High 98-110 [facility] Comment on above: Performed By: #### G FR, ANEU, CBC, ADIFF, BMP ####[address] [address] CO2 [Moles/Vol] 29 mmol/L Normal 22-32 [facility] Comment on above: Performed By: #### G FR, ANEU, CBC, ADIFF, BMP ####[address] [address] Creatinine [Mass/Vol] 0.83 mg/dL Normal 0.60-1.40 [facility] Comment on above: Result Comment: Test ing performed on Zeppelin analyzer using enzymatic creatinine methodology. Performed By: #### G FR, ANEU, CBC, ADIFF, BMP ####[place] [address] Electrolyte Balance 5.0 mEq/L Normal 4.0-15.0 [facility] Comment on above: Performed By: #### G FR, ANEU, CBC, ADIFF, BMP ####[place] [address] Glucose [Mass/Vol] 195 mg/dL High 82-115 [facility] Comment on above: Performed By: #### G FR, ANEU, CBC, ADIFF, BMP ####[place] [address] Potassium [Moles/Vol] 4.3 mmol/L Normal 3.5-5.0 [facility] Comment on above: Performed By: #### Zbigniew FR, ANEU, CBC, ADIFF, BMP ####[place] [address] Sodium [Moles/Vol] 151 mmol/L High 136-145 [facility] Comment on above: Performed By: #### G FR, ANEU, CBC, ADIFF, BMP ####[place] [address] Urea nitrogen [Mass/Vol] 32.0 mg/dL High 8.0-22.0 [facility] Comment on above: Performed By: #### G FR, ANEU, CBC, ADIFF, BMP ####[place] [address] CBCon 03-21-2024 Erythrocyte distribution width (RBC) [Ratio] 15.9 % High 11.5-15.5 [facility] Comment on above: Performed By: #### G FR, ANEU, CBC, ADIFF, BMP ####[place] [address] Hematocrit (Bld) [Volume fraction] 26.4 % Low 40.0-52.0 [facility] Comment on above: Performed By: #### G FR, ANEU, CBC, ADIFF, BMP ####[place] [address] Hgb 8.3 G/dL Low 13.0-17.5 [facility] Comment on above: Performed By: #### G FR, ANEU, CBC, ADIFF, BMP ####[place] [address] MCH (RBC) [Entitic mass] 28.2 pg Normal 27.0-33.0 [facility] Comment on above: Performed By: #### G FR, ANEU, CBC, ADIFF, BMP ####[place] [address] MCHC 31.4 G/dL Low 32.0-36.0 [facility] Comment on above: Performed By: #### G FR, ANEU, CBC, ADIFF, BMP ####[place] [address] MCV (RBC) [Entitic vol] 89.7 fL Normal 81.0-100.0 [facility] Comment on above: Performed By: #### G FR, ANEU, CBC, ADIFF, BMP ####[place] [address] Platelet 322 10 3/mcL Normal 150-450 [facility] Comment on above: Performed By: #### G FR, ANEU, CBC, ADIFF, BMP ####[place] [address] Platelet mean volume (Bld) [Entitic vol] 8.9 fL Normal 6.4-10.5 [facility] Comment on above: Performed By: #### G FR, ANEU, CBC, ADIFF, BMP ####[place] [address] RBC 2.94 10 6/mcL Low 4.50-6.00 [facility] Comment on above: Performed By: #### G FR, ANEU, CBC, ADIFF, BMP ####[place] [address] WBC 5.4 10 3/mcL Normal 4.5-10.8 [facility] Comment on above: Performed By: #### G FR, ANEU, CBC, ADIFF, BMP ####[facility] [place] [address] LABORATORYOrdered By: SYSTEM SYSTEM on 03-21-2024 Basophils (Bld) [#/Vol] 0.0 103/mcL Normal 0.0 - 0.3 10^3/mcL AH Workflow SS Basophils/100 WBC (Bld) 0.5 % Normal 0.0 - 2.5 % AH Workflow SS Calcium [Mass/Vol] 7.9 mg/dL Low 8.7 - 10. 4 mg/dL ADM SS Chloride [Moles/Vol] 117 mmol/L High 98 - 11 0 mEq/L ADM SS CO2 [Moles/Vol] 29 mmol/L Normal 22 - 32 mEq/L ADM SS Creatinine [Mass/Vol] 0.83 mg/dL Normal 0.60 - 1.40 mg/dL ADM SS Comment on above: Interpretive Data: T esting performed on Zeppelin analyzer using enzymatic creatinine methodology. Electrolyte Balance 5.0 mEq/L Normal 4.0 - 15 .0 mEq/L ADM SS Eosinophils (Bld) [#/Vol] 0.3 103/mcL Normal 0.0 - 0.7 10^3/mcL Workflow SS Eosinophils/100 WBC (Bld) 6.4 % High 0.0 - 6.0 % AH Workflow SS Erythrocyte distribution width (RBC) [Ratio] 15.9 % High 11.5 - 15.5 % AH Workflow SS GFR/1.73 sq M.predicted among blacks MDRD (S/P/Bld) [Vol rate/Area] ml/min/1.73sqm Invalid Interpretation Code Chemistry S Comment on above: Interpretive Data: GFR Population mean for , Non- Americans Ages 20-29 = 116 mL/min/1.73 sq.m. Ages 30-39 = 107 mL/min/1.73 sq.m. Ages 40-49 = 99 mL/min/1.73 sq.m. Ages 50-59 = 93 mL/min/1.73 sq.m. Ages 60-69 = 85 mL/min/1.73 sq.m. Ages 70+ = 75 mL/min/1.73 sq.m. Chronic Kidney Disease: Less than 60 mL/min/1.73 square meters End Stage Renal Disease: Less than 15 mL/min/1.73 square meters GFR/1.73 sq M.predicted among non-blacks MDRD (S/P/Bld) [Vol rate/Area] ml/min/1.73sqm Invalid Interpretation Code Chemistry S Comment on above: Interpretive Data: GFR Population mean for , Non- Americans Ages 20-29 = 116 mL/min/1.73 sq.m. Ages 30-39 = 107 mL/min/1.73 sq.m. Ages 40-49 = 99 mL/min/1.73 sq.m. Ages 50-59 = 93 mL/min/1.73 sq.m. Ages 60-69 = 85 mL/min/1.73 sq.m. Ages 70+ = 75 mL/min/1.73 sq.m. Chronic Kidney Disease: Less than 60 mL/min/1.73 square meters End Stage Renal Disease: Less than 15 mL/min/1.73 square meters Glucose [Mass/Vol] 195 mg/dL High 82 - 115 mg/dL ADM SS Hematocrit (Bld) [Volume fraction] 26.4 % Low 40.0 - 52.0 % AH Workflow SS Hemoglobin (Bld) [Mass/Vol] 8.3 G/dL Low 13.0 - 17.5 G/dL AH Workflow SS Lymphocytes (Bld) [#/Vol] 1.2 103/mcL Normal 0.9 - 4.3 10^3/mcL AH Workflow SS Lymphocytes/100 WBC (Bld) 21.3 % Normal 20.0 - 40.0 % AH Workflow SS MCH (RBC) [Entitic mass] 28.2 pg Normal 27.0 - 33.0 pg AH Workflow SS MCHC 31.4 G/dL Low 32.0 - 36.0 G/dL AH Workflow SS MCV (RBC) [Entitic vol] 89.7 fL Normal 81.0 - 100.0 fL AH Workflow SS Monocytes (Bld) [#/Vol] 0.6 103/mcL Normal 0.1 - 1.4 10^3/mcL AH Workflow SS Monocytes/100 WBC (Bld) 11.0 % Normal 2.0 - 13.0 % AH Workflow SS Neutrophils (Bld) [#/Vol] 3.3 103/mcL Normal 2.3 - 8.1 10^3/mcL Workflow SS Neutrophils/100 WBC (Bld) 60.8 % Normal 50.0 - 75.0 % AH Workflow SS Platelet mean volume (Bld) [Entitic vol] 8.9 fL Normal 6.4 - 10.5 fL AH Workflow SS Platelets (Bld) [#/Vol] 322 103/mcL Normal 150 - 450 10^3/mcL AH Workflow SS Potassium [Moles/Vol] 4.3 mmol/L Normal 3.5 - 5.0 mEq/L AH ADM SS RBC (Bld) [#/Vol] 2.94 106/mcL Low 4.50 - 6.00 10^6/mcL AH Workflow SS Urea nitrogen [Mass/Vol] 32.0 mg/dL High 8.0 - 22.0 mg/dL ADM SS Urea nitrogen/Creatinine [Mass ratio] 38.6 ratio High 10.0 - 22.0 ratio ADM SS WBC (Bld) [#/Vol] 5.4 103/mcL Normal 4.5 - 10.8 10^3/mcL Workflow SS NAOrdered By: SYSTEM SYSTEM on 03-21-2024 Sodium [Moles/Vol] 149 mmol/L High 136-145 ADM SS Comment on above: Performed By: #### N A ####[place] [address] .Auto Diffon 03-20-2024 Basophil, Absolute 0.0 10 3/mcL Normal 0.0-0.3 [facility] Comment on above: Performed By: #### G FR, CBC, ANEU, ADIFF, BMP ####[address] [address] Basophils/100 WBC (Bld) 0.4 % Normal 0.0-2.5 [facility] Comment on above: Performed By: #### G FR, CBC, ANEU, ADIFF, BMP ####[place] [address] Eosinophil, Absolute 0.3 10 3/mcL Normal 0.0-0.7 [facility] Comment on above: Performed By: #### G FR, CBC, ANEU, ADIFF, BMP ####[address] [address] Eosinophils/100 WBC (Bld) 4.8 % Normal 0.0-6.0 [facility] Comment on above: Performed By: #### G FR, CBC, ANEU, ADIFF, BMP ####[address] [address] Lymphocyte, Absolute 1.0 10 3/mcL Normal 0.9-4.3 [facility] Comment on above: Performed By: #### G FR, CBC, ANEU, ADIFF, BMP ####[address] [address] Lymphocytes/100 WBC (Bld) 18.4 % Low 20.0-40.0 [facility] Comment on above: Performed By: #### G FR, CBC, ANEU, ADIFF, BMP ####[address] [address] Monocyte, Absolute 0.5 10 3/mcL Normal 0.1-1.4 [facility] Comment on above: Performed By: #### G FR, CBC, ANEU, ADIFF, BMP ####[address] [address] Monocytes/100 WBC (Bld) 9.9 % Normal 2.0-13.0 [facility] Comment on above: Performed By: #### G FR, CBC, ANEU, ADIFF, BMP ####[address] [address] Neutrophils/100 WBC (Bld) 66.5 % Normal 50.0-75.0 [facility] Comment on above: Performed By: #### G FR, CBC, ANEU, ADIFF, BMP ####[address] [address] .GFRon 03-20-2024 GFR Non- >60 Normal [facility] Comment on above: Result Comment: GFR Population mean for , Non- Americans Ages 20-29 = 116 mL/min/1.73 sq.m. Ages 30-39 = 107 mL/min/1.73 sq.m. Ages 40-49 = 99 mL/min/1.73 sq.m. Ages 50-59 = 93 mL/min/1.73 sq.m. Ages 60-69 = 85 mL/min/1.73 sq.m. Ages 70+ = 75 mL/min/1.73 sq.m.Chronic Kidney Disease: Less than 60 mL/min/1.73 square metersEnd Stage Renal Disease: Less than 15 mL/min/1.73 square meters Performed By: #### G FR, CBC, ANEU, ADIFF, BMP ####[address] [address] GFR >60 Normal [facility] Comment on above: Result Comment: GFR Population mean for , Non- Americans Ages 20-29 = 116 mL/min/1.73 sq.m. Ages 30-39 = 107 mL/min/1.73 sq.m. Ages 40-49 = 99 mL/min/1.73 sq.m. Ages 50-59 = 93 mL/min/1.73 sq.m. Ages 60-69 = 85 mL/min/1.73 sq.m. Ages 70+ = 75 mL/min/1.73 sq.m.Chronic Kidney Disease: Less than 60 mL/min/1.73 square metersEnd Stage Renal Disease: Less than 15 mL/min/1.73 square meters Performed By: #### G FR, CBC, ANEU, ADIFF, BMP ####[address] [address] .NEUABSon 03-20-2024 Neutrophil, Absolute 3.6 10 3/mcL Normal 2.3-8.1 [facility] Comment on above: Performed By: #### G FR, CBC, ANEU, ADIFF, BMP ####[address] [address] BMPon 03-20-2024 BUN/Creatinine Ratio 40.6 ratio High 10.0-22.0 [facility] Comment on above: Performed By: #### G FR, CBC, ANEU, ADIFF, BMP ####[address] [address] Calcium [Mass/Vol] 7.7 mg/dL Low 8.7-10.4 [facility] Comment on above: Performed By: #### G FR, CBC, ANEU, ADIFF, BMP ####[address] [address] Chloride [Moles/Vol] 117 mmol/L High 98-110 [facility] Comment on above: Performed By: #### G FR, CBC, ANEU, ADIFF, BMP ####[address] [address] CO2 [Moles/Vol] 27 mmol/L Normal 22-32 [facility] Comment on above: Performed By: #### G FR, CBC, ANEU, ADIFF, BMP ####[address] [address] Creatinine [Mass/Vol] 0.96 mg/dL Normal 0.60-1.40 [facility] Comment on above: Result Comment: Test ing performed on Zeppelin analyzer using enzymatic creatinine methodology. Performed By: #### G FR, CBC, ANEU, ADIFF, BMP ####[address] [address] Electrolyte Balance 4.0 mEq/L Normal 4.0-15.0 [facility] Comment on above: Performed By: #### G FR, CBC, ANEU, ADIFF, BMP ####[address] [address] Glucose [Mass/Vol] 256 mg/dL High 82-115 [facility] Comment on above: Performed By: #### G FR, CBC, ANEU, ADIFF, BMP ####[address] [address] Potassium [Moles/Vol] 4.2 mmol/L Normal 3.5-5.0 [facility] Comment on above: Performed By: #### G FR, CBC, ANEU, ADIFF, BMP ####[address] [address] Sodium [Moles/Vol] 148 mmol/L High 136-145 [facility] Comment on above: Performed By: #### G FR, CBC, ANEU, ADIFF, BMP ####[address] [address] Urea nitrogen [Mass/Vol] 39.0 mg/dL High 8.0-22.0 [facility] Comment on above: Performed By: #### G FR, CBC, ANEU, ADIFF, BMP ####[place] [address] CBCon 03-20-2024 Erythrocyte distribution width (RBC) [Ratio] 15.4 % Normal 11.5-15.5 [facility] Comment on above: Performed By: #### G FR, CBC, ANEU, ADIFF, BMP ####[place] [address] Hematocrit (Bld) [Volume fraction] 25.6 % Low 40.0-52.0 [facility] Comment on above: Performed By: #### G FR, CBC, ANEU, ADIFF, BMP ####[place] [address] Hgb 8.2 G/dL Low 13.0-17.5 [facility] Comment on above: Performed By: #### G FR, CBC, ANEU, ADIFF, BMP ####[place] [address] MCH (RBC) [Entitic mass] 28.5 pg Normal 27.0-33.0 [facility] Comment on above: Performed By: #### G FR, CBC, ANEU, ADIFF, BMP ####[place] [address] MCHC 31.9 G/dL Low 32.0-36.0 [facility] Comment on above: Performed By: #### G FR, CBC, ANEU, ADIFF, BMP ####[place] [address] MCV (RBC) [Entitic vol] 89.5 fL Normal 81.0-100.0 [facility] Comment on above: Performed By: #### G FR, CBC, ANEU, ADIFF, BMP ####[place] [address] Platelet 296 10 3/mcL Normal 150-450 [facility] Comment on above: Performed By: #### G FR, CBC, ANEU, ADIFF, BMP ####[address] [address] Platelet mean volume (Bld) [Entitic vol] 9.1 fL Normal 6.4-10.5 [facility] Comment on above: Performed By: #### G FR, CBC, ANEU, ADIFF, BMP ####[place] [address] [place] [address] RBC 2.86 10 6/mcL Low 4.50-6.00 [facility] Comment on above: Performed By: #### G FR, CBC, ANEU, ADIFF, BMP ####[address] [address] WBC 5.4 10 3/mcL Normal 4.5-10.8 [facility] Comment on above: Performed By: #### G FR, CBC, ANEU, ADIFF, BMP ####[place] [id number] LABORATORYOrdered By: SYSTEM SYSTEM on 03-20-2024 Basophils (Bld) [#/Vol] 0.0 103/mcL Normal 0.0 - 0.3 10^3/mcL AH Workflow SS Basophils/100 WBC (Bld) 0.4 % Normal 0.0 - 2.5 % AH Workflow SS Eosinophils (Bld) [#/Vol] 0.3 103/mcL Normal 0.0 - 0.7 10^3/mcL AH Workflow SS Eosinophils/100 WBC (Bld) 4.8 % Normal 0.0 - 6.0 % AH Workflow SS Erythrocyte distribution width (RBC) [Ratio] 15.4 % Normal 11.5 - 15.5 % AH Workflow SS Hematocrit (Bld) [Volume fraction] 25.6 % Low 40.0 - 52.0 % AH Workflow SS Hemoglobin (Bld) [Mass/Vol] 8.2 G/dL Low 13.0 - 17.5 G/dL AH Workflow SS Lymphocytes (Bld) [#/Vol] 1.0 103/mcL Normal 0.9 - 4.3 10^3/mcL AH Workflow SS Lymphocytes/100 WBC (Bld) 18.4 % Low 20.0 - 40.0 % AH Workflow SS MCH (RBC) [Entitic mass] 28.5 pg Normal 27.0 - 33.0 pg AH Workflow SS MCHC 31.9 G/dL Low 32.0 - 36.0 G/dL Workflow SS MCV (RBC) [Entitic vol] 89.5 fL Normal 81.0 - 100.0 fL AH Workflow SS Monocytes (Bld) [#/Vol] 0.5 103/mcL Normal 0.1 - 1.4 10^3/mcL AH Workflow SS Monocytes/100 WBC (Bld) 9.9 % Normal 2.0 - 13.0 % AH Workflow SS Neutrophils (Bld) [#/Vol] 3.6 103/mcL Normal 2.3 - 8.1 10^3/mcL AH Workflow SS Neutrophils/100 WBC (Bld) 66.5 % Normal 50.0 - 75.0 % AH Workflow SS Platelet mean volume (Bld) [Entitic vol] 9.1 fL Normal 6.4 - 10.5 fL Workflow SS Platelets (Bld) [#/Vol] 296 103/mcL Normal 150 - 450 10^3/mcL Workflow SS RBC (Bld) [#/Vol] 2.86 106/mcL Low 4.50 - 6.00 10^6/mcL Workflow SS WBC (Bld) [#/Vol] 5.4 103/mcL Normal 4.5 - 10.8 10^3/mcL Workflow SS XR SWALLOWING FUNCTIONon XR SWALLOWING FUNCTION ORIGINAL Images acquired, not reported on this accession number. Normal [facility] .GFRon 03-19-2024 GFR Non- >60 Normal [facility] Comment on above: Result Comment: GFR Population mean for , Non- Americans Ages 20-29 = 116 mL/min/1.73 sq.m. Ages 30-39 = 107 mL/min/1.73 sq.m. Ages 40-49 = 99 mL/min/1.73 sq.m. Ages 50-59 = 93 mL/min/1.73 sq.m. Ages 60-69 = 85 mL/min/1.73 sq.m. Ages 70+ = 75 mL/min/1.73 sq.m.Chronic Kidney Disease: Less than 60 mL/min/1.73 square metersEnd Stage Renal Disease: Less than 15 mL/min/1.73 square meters Performed By: #### P RALB, CBC, MORPH, BMP, DIFF, GFR ####[place] [address] GFR >60 Normal [facility] Comment on above: Result Comment: GFR Population mean for , Non- Americans Ages 20-29 = 116 mL/min/1.73 sq.m. Ages 30-39 = 107 mL/min/1.73 sq.m. Ages 40-49 = 99 mL/min/1.73 sq.m. Ages 50-59 = 93 mL/min/1.73 sq.m. Ages 60-69 = 85 mL/min/1.73 sq.m. Ages 70+ = 75 mL/min/1.73 sq.m.Chronic Kidney Disease: Less than 60 mL/min/1.73 square metersEnd Stage Renal Disease: Less than 15 mL/min/1.73 square meters Performed By: #### P RALB, CBC, MORPH, BMP, DIFF, GFR ####[place] [address] .Manual Diffon 03-19-2024 Bands 2.0 % Normal 0.0-5.0 [facility] Comment on above: Performed By: #### P RALB, CBC, MORPH, BMP, DIFF, GFR ####[place] [address] Basophil %, Manual 0.0 % Normal 0.0-2.5 [facility] Comment on above: Performed By: #### P RALB, CBC, MORPH, BMP, DIFF, GFR ####[place] [address] Basophil, Abs Manual 0.0 10 3/mcL Normal 0.0-0.3 [facility] Comment on above: Performed By: #### P RALB, CBC, MORPH, BMP, DIFF, GFR ####[place] [address] Eosinophil %, Manual 3.0 % Normal 0.0-6.0 [facility] Comment on above: Performed By: #### P RALB, CBC, MORPH, BMP, DIFF, GFR ####[place] [address] Eosinophil, Abs Manual 0.2 10 3/mcL Normal 0.0-0.7 [facility] Comment on above: Performed By: #### P RALB, CBC, MORPH, BMP, DIFF, GFR ####[place] [address] Lymphocyte %, Manual 16.0 % Low 20.0-40.0 [facility] Comment on above: Performed By: #### P RALB, CBC, MORPH, BMP, DIFF, GFR ####[place] [address] Lymphocyte, Abs Manual 1.1 10 3/mcL Normal 0.9-4.3 [facility] Comment on above: Performed By: #### P RALB, CBC, MORPH, BMP, DIFF, GFR ####[place] [address] Monocyte %, Manual 11.0 % Normal 2.0-13.0 [facility] Comment on above: Performed By: #### P RALB, CBC, MORPH, BMP, DIFF, GFR ####[place] [address] Monocyte, Abs Manual 0.7 10 3/mcL Normal 0.1-1.4 [facility] Comment on above: Performed By: #### P RALB, CBC, MORPH, BMP, DIFF, GFR ####[place] [address] Neutrophil %, Manual 68.0 % Normal 50.0-75.0 [facility] Comment on above: Performed By: #### P RALB, CBC, MORPH, BMP, DIFF, GFR ####[place] [address] Neutrophil, Abs Manual 4.6 10 3/mcL Normal 2.3-8.1 [facility] Comment on above: Performed By: #### P RALB, CBC, MORPH, BMP, DIFF, GFR ####[place] [address] Nucleated RBC 0.0 /100 WBC Normal [facility] Comment on above: Performed By: #### P RALB, CBC, MORPH, BMP, DIFF, GFR ####[place] [address] .Morphon 03-19-2024 Anisocytosis Ql (Bld) 1+ Normal [facility] Comment on above: Performed By: #### P RALB, CBC, MORPH, BMP, DIFF, GFR ####[place] [address] Hypochrom 1+ Normal [facility] Comment on above: Performed By: #### P RALB, CBC, MORPH, BMP, DIFF, GFR ####[place] [address] Platelet Estimate Normal [facility] Comment on above: Performed By: #### P RALB, CBC, MORPH, BMP, DIFF, GFR ####[place] [address] Polychrom 1+ Normal [facility] Comment on above: Performed By: #### P RALB, CBC, MORPH, BMP, DIFF, GFR ####[place] [address] BMPon 03-19-2024 BUN/Creatinine Ratio 49.0 ratio High 10.0-22.0 [facility] Comment on above: Performed By: #### P RALB, CBC, MORPH, BMP, DIFF, GFR ####[place] [address] Calcium [Mass/Vol] 7.8 mg/dL Low 8.7-10.4 [facility] Comment on above: Performed By: #### P RALB, CBC, MORPH, BMP, DIFF, GFR ####[place] [address] Chloride [Moles/Vol] 110 mmol/L Normal 98-110 [facility] Comment on above: Performed By: #### P RALB, CBC, MORPH, BMP, DIFF, GFR ####[place] [address] CO2 [Moles/Vol] 27 mmol/L Normal 22-32 [facility] Comment on above: Performed By: #### P RALB, CBC, MORPH, BMP, DIFF, GFR ####[place] [address] Creatinine [Mass/Vol] 1.02 mg/dL Normal 0.60-1.40 [facility] Comment on above: Result Comment: Test ing performed on [employer] analyzer using enzymatic creatinine methodology. Performed By: #### P RALB, CBC, MORPH, BMP, DIFF, GFR ####[place] [address] Electrolyte Balance 9.0 mEq/L Normal 4.0-15.0 [facility] Comment on above: Performed By: #### P RALB, CBC, MORPH, BMP, DIFF, GFR ####[place] [id number] Glucose [Mass/Vol] 195 mg/dL High 82-115 [facility] Comment on above: Performed By: #### P RALB, CBC, MORPH, BMP, DIFF, GFR ####[place] [address] Potassium [Moles/Vol] 4.3 mmol/L Normal 3.5-5.0 [facility] Comment on above: Performed By: #### P RALB, CBC, MORPH, BMP, DIFF, GFR ####[place] [address] Sodium [Moles/Vol] 146 mmol/L High 136-145 [facility] Comment on above: Performed By: #### P RALB, CBC, MORPH, BMP, DIFF, GFR ####[place] [id number] Urea nitrogen [Mass/Vol] 50.0 mg/dL High 8.0-22.0 [facility] Comment on above: Performed By: #### P RALB, CBC, MORPH, BMP, DIFF, GFR ####[place] [address] CBCon 03-19-2024 Erythrocyte distribution width (RBC) [Ratio] 15.4 % Normal 11.5-15.5 [facility] Comment on above: Order Comment: clott ed, recollect Performed By: #### P RALB, CBC, MORPH, BMP, DIFF, GFR ####[place] [address] Hematocrit (Bld) [Volume fraction] 26.3 % Low 40.0-52.0 [facility] Comment on above: Order Comment: clott ed, recollect Performed By: #### P RALB, CBC, MORPH, BMP, DIFF, GFR ####[place] [address] Hgb 8.4 G/dL Low 13.0-17.5 [facility] Comment on above: Order Comment: clott ed, recollect Performed By: #### P RALB, CBC, MORPH, BMP, DIFF, GFR ####[place] [address] MCH (RBC) [Entitic mass] 28.5 pg Normal 27.0-33.0 [facility] Comment on above: Order Comment: clott ed, recollect Performed By: #### P RALB, CBC, MORPH, BMP, DIFF, GFR ####[place] [address] MCHC 31.8 G/dL Low 32.0-36.0 [facility] Comment on above: Order Comment: clott ed, recollect Performed By: #### P RALB, CBC, MORPH, BMP, DIFF, GFR ####[place] [address] MCV (RBC) [Entitic vol] 89.7 fL Normal 81.0-100.0 [facility] Comment on above: Order Comment: clott ed, recollect Performed By: #### P RALB, CBC, MORPH, BMP, DIFF, GFR ####[place] [address] Platelet 286 10 3/mcL Normal 150-450 [facility] Comment on above: Order Comment: clott ed, recollect Performed By: #### P RALB, CBC, MORPH, BMP, DIFF, GFR ####[place] [address] Platelet mean volume (Bld) [Entitic vol] 9.4 fL Normal 6.4-10.5 [facility] Comment on above: Order Comment: clott ed, recollect Performed By: #### P RALB, CBC, MORPH, BMP, DIFF, GFR ####[facility] [place] [address] RBC 2.93 10 6/mcL Low 4.50-6.00 [facility] Comment on above: Order Comment: clott ed, recollect Performed By: #### P RALB, CBC, MORPH, BMP, DIFF, GFR ####[facility] [place] [address] WBC 6.7 10 3/mcL Normal 4.5-10.8 [facility] Comment on above: Order Comment: clott ed, recollect Performed By: #### P RALB, CBC, MORPH, BMP, DIFF, GFR ####[address] [address] LABORATORYOrdered By: SYSTEM SYSTEM on 03-19-2024 Troponin I.cardiac DL <= 0.01 ng/mL [Mass/Vol] 16 ng/L Normal 0 - 54 ng/L ADM SS Comment on above: Interpretive Data: High Sensitive Troponin I Reference Ranges: Female: 0-34 ng/L Male: 0-54 ng/L Testing performed on [employer] IM analyzer using direct chemiluminescent technology. Anisocytosis Ql (Bld) 1+ *NA* (03/19/24 8:13 AM) Invalid Interpretation Code AH Workflow SS Band form neutrophils/100 WBC (Bld) 2.0 % Normal 0.0 - 5.0 % AH Workflow SS Basophils (Bld) [#/Vol] 0.0 103/mcL Normal 0.0 - 0.3 10^3/mcL AH Workflow SS Basophils/100 WBC (Bld) 0.0 % Normal 0.0 - 2.5 % AH Workflow SS Eosinophils (Bld) [#/Vol] 0.2 103/mcL Normal 0.0 - 0.7 10^3/mcL AH Workflow SS Eosinophils/100 WBC (Bld) 3.0 % Normal 0.0 - 6.0 % Workflow SS Hypochromia Ql (Bld) 1+ *NA* (03/19/24 8:13 AM) Invalid Interpretation Code AH Workflow SS Lymphocytes (Bld) [#/Vol] 1.1 103/mcL Normal 0.9 - 4.3 10^3/mcL AH Workflow SS Lymphocytes/100 WBC (Bld) 16.0 % Low 20.0 - 40.0 % AH Workflow SS Monocytes (Bld) [#/Vol] 0.7 103/mcL Normal 0.1 - 1.4 10^3/mcL AH Workflow SS Monocytes/100 WBC (Bld) 11.0 % Normal 2.0 - 13.0 % AH Workflow SS Neutrophils (Bld) [#/Vol] 4.6 103/mcL Normal 2.3 - 8.1 10^3/mcL AH Workflow SS Neutrophils/100 WBC (Bld) 68.0 % Normal 50.0 - 75.0 % AH Workflow SS Nucleated RBC 0.0 /100 WBC Invalid Interpretation Code AH Workflow SS Platelets LM Ql (Bld) Normal *NA* (03/19/24 8:13 AM) Invalid Interpretation Code Workflow SS Polychromasia LM Ql (Bld) 1+ *NA* (03/19/24 8:13 AM) Invalid Interpretation Code AH Workflow SS Prealbumin [Mass/Vol] 15.6 mg/dL Normal 10.0 - 40.0 mg/dL ADM SS Comment on above: Interpretive Data: * *Note - New Reference Range in effect 19 [facility] 03-19-2024 Prealbumin [Mass/Vol] 15.6 mg/dL Normal 10.0-40.0 [facility] Comment on above: Result Comment: No te - New Reference Range in effect 19 Performed By: #### P RALB, CBC, MORPH, BMP, DIFF, GFR ####[address] 03-19-2024 High Sensitivity Troponin I 16 ng/L Normal 0-54 [facility] Comment on above: Result Comment: High Sensitive Troponin I Reference Ranges:Female: 0-34 ng/LMale: 0-54 ng/LTesting performed on [employer] IM analyzer using direct chemiluminescent technology. Performed By: #### T [facility] ####[place] [address] Wound Cultureon 03-19-2024 WC Escherichia coli Amount Growth 2+ Proteus mirabilis Proteus mirabilis Escherichia coli: REACTION Ampicillin Islt JD 16 I Ampicillin+Sulbac Islt JD 4 Cefepime Islt JD <=0.12 S cefTRIAXone Islt JD <=0.25 S Ciprofloxacin Islt JD <=0.06 S B-Lactamase Extended Susc Islt NEG Gentamicin Islt JD <=1 S levoFLOXacin Islt JD <=0.12 S Meropenem Islt JD <=0.25 S Pip+Tazo Islt JD <=4 S TMP SMX Islt JD <=20 S Proteus mirabilis: REACTION Ampicillin Islt JD R Ampicillin+Sulbac Islt JD <=2 Cefepime Islt JD 0.25 S cefTRIAXone Islt JD <=0.25 S Ciprofloxacin Islt JD >=4 R Gentamicin Islt JD <=1 S levoFLOXacin Islt JD >=8 R Meropenem Islt JD 0.5 S Pip+Tazo Islt JD <=4 S TMP SMX Islt JD <=20 S Normal [facility] Comment on above: Performed By: #### M 100.3000, M100.2000 #### [facility] [address] [place], [address] .Auto Diffon 03-18-2024 Basophil, Absolute 0.0 10 3/mcL Normal 0.0-0.3 [facility] Comment on above: Performed By: #### P HOS, PRO, CBC, GFR, CMP, ANEU, MG, ADIFF ####[place] [address] [place] [address] Basophils/100 WBC (Bld) 0.2 % Normal 0.0-2.5 [facility] Comment on above: Performed By: #### P HOS, PRO, CBC, GFR, CMP, ANEU, MG, ADIFF ####[place] [address] [place] [address] Eosinophil, Absolute 0.1 10 3/mcL Normal 0.0-0.7 [facility] Comment on above: Performed By: #### P HOS, PRO, CBC, GFR, CMP, ANEU, MG, ADIFF ####[place] [address] [place] [address] Eosinophils/100 WBC (Bld) 1.5 % Normal 0.0-6.0 [facility] Comment on above: Performed By: #### P HOS, PRO, CBC, GFR, CMP, ANEU, MG, ADIFF ####[address] [address] Lymphocyte, Absolute 1.4 10 3/mcL Normal 0.9-4.3 [facility] Comment on above: Performed By: #### P HOS, PRO, CBC, GFR, CMP, ANEU, MG, ADIFF ####[address] [address] Lymphocytes/100 WBC (Bld) 18.7 % Low 20.0-40.0 [facility] Comment on above: Performed By: #### P HOS, PRO, CBC, GFR, CMP, ANEU, MG, ADIFF ####[address] [address] Monocyte, Absolute 0.8 10 3/mcL Normal 0.1-1.4 [facility] Comment on above: Performed By: #### P HOS, PRO, CBC, GFR, CMP, ANEU, MG, ADIFF ####[address] [address] Monocytes/100 WBC (Bld) 11.3 % Normal 2.0-13.0 [facility] Comment on above: Performed By: #### P HOS, PRO, CBC, GFR, CMP, ANEU, MG, ADIFF ####[address] [address] Neutrophils/100 WBC (Bld) 68.3 % Normal 50.0-75.0 [facility] Comment on above: Performed By: #### P HOS, PRO, CBC, GFR, CMP, ANEU, MG, ADIFF ####[address] [address] .GFRon 03-18-2024 GFR Non- >60 Normal [facility] Comment on above: Result Comment: GFR Population mean for , Non- Americans Ages 20-29 = 116 mL/min/1.73 sq.m. Ages 30-39 = 107 mL/min/1.73 sq.m. Ages 40-49 = 99 mL/min/1.73 sq.m. Ages 50-59 = 93 mL/min/1.73 sq.m. Ages 60-69 = 85 mL/min/1.73 sq.m. Ages 70+ = 75 mL/min/1.73 sq.m.Chronic Kidney Disease: Less than 60 mL/min/1.73 square metersEnd Stage Renal Disease: Less than 15 mL/min/1.73 square meters Performed By: #### P HOS, PRO, CBC, GFR, CMP, ANEU, MG, ADIFF ####[address] [address] GFR >60 Normal [facility] Comment on above: Result Comment: GFR Population mean for , Non- Americans Ages 20-29 = 116 mL/min/1.73 sq.m. Ages 30-39 = 107 mL/min/1.73 sq.m. Ages 40-49 = 99 mL/min/1.73 sq.m. Ages 50-59 = 93 mL/min/1.73 sq.m. Ages 60-69 = 85 mL/min/1.73 sq.m. Ages 70+ = 75 mL/min/1.73 sq.m.Chronic Kidney Disease: Less than 60 mL/min/1.73 square metersEnd Stage Renal Disease: Less than 15 mL/min/1.73 square meters Performed By: #### P HOS, PRO, CBC, GFR, CMP, ANEU, MG, ADIFF ####[place] [address] .NEUABSon 03-18-2024 Neutrophil, Absolute 5.1 10 3/mcL Normal 2.3-8.1 [facility] Comment on above: Performed By: #### P HOS, PRO, CBC, GFR, CMP, ANEU, MG, ADIFF ####[address] [address] CBCon 03-18-2024 Erythrocyte distribution width (RBC) [Ratio] 15.5 % Normal 11.5-15.5 [facility] Comment on above: Performed By: #### P HOS, PRO, CBC, GFR, CMP, ANEU, MG, ADIFF ####[place] [address] Hematocrit (Bld) [Volume fraction] 30.3 % Low 40.0-52.0 [facility] Comment on above: Performed By: #### P HOS, PRO, CBC, GFR, CMP, ANEU, MG, ADIFF ####[place] [address] Hgb 9.5 G/dL Low 13.0-17.5 [facility] Comment on above: Performed By: #### P HOS, PRO, CBC, GFR, CMP, ANEU, MG, ADIFF ####[place] [address] MCH (RBC) [Entitic mass] 28.5 pg Normal 27.0-33.0 [facility] Comment on above: Performed By: #### P HOS, PRO, CBC, GFR, CMP, ANEU, MG, ADIFF ####[place] [address] MCHC 31.3 G/dL Low 32.0-36.0 [facility] Comment on above: Performed By: #### P HOS, PRO, CBC, GFR, CMP, ANEU, MG, ADIFF ####[place] [address] MCV (RBC) [Entitic vol] 91.1 fL Normal 81.0-100.0 [facility] Comment on above: Performed By: #### P HOS, PRO, CBC, GFR, CMP, ANEU, MG, ADIFF ####[place] [address] Platelet 296 10 3/mcL Normal 150-450 [facility] Comment on above: Performed By: #### P HOS, PRO, CBC, GFR, CMP, ANEU, MG, ADIFF ####[place] [address] Platelet mean volume (Bld) [Entitic vol] 8.8 fL Normal 6.4-10.5 [facility] Comment on above: Performed By: #### P HOS, PRO, CBC, GFR, CMP, ANEU, MG, ADIFF ####[place] [address] RBC 3.32 10 6/mcL Low 4.50-6.00 [facility] Comment on above: Performed By: #### P HOS, PRO, CBC, GFR, CMP, ANEU, MG, ADIFF ####[place] [address] WBC 7.5 10 3/mcL Normal 4.5-10.8 [facility] Comment on above: Performed By: #### P HOS, PRO, CBC, GFR, CMP, ANEU, MG, ADIFF ####[place] [address] CMPon 03-18-2024 Albumin Level 1.7 G/dL Low 3.2-4.8 [facility] Comment on above: Performed By: #### P HOS, PRO, CBC, GFR, CMP, ANEU, MG, ADIFF ####[place] [address] Albumin/Globulin [Mass ratio] 0.4 {ratio} Low 0.9-1.6 [facility] Comment on above: Performed By: #### P HOS, PRO, CBC, GFR, CMP, ANEU, MG, ADIFF ####[place] [address] ALP [Catalytic activity/Vol] 61 U/L Normal 38-126 [facility] Comment on above: Performed By: #### P HOS, PRO, CBC, GFR, CMP, ANEU, MG, ADIFF ####[place] [address] ALT [Catalytic activity/Vol] 31 U/L Normal 12-55 [facility] Comment on above: Performed By: #### P HOS, PRO, CBC, GFR, CMP, ANEU, MG, ADIFF ####[place] [address] AST [Catalytic activity/Vol] 23 U/L Normal 8-34 [facility] Comment on above: Performed By: #### P HOS, PRO, CBC, GFR, CMP, ANEU, MG, ADIFF ####[place] [address] Bili Total 0.40 mg/dL Normal 0.20-1.20 [facility] Comment on above: Result Comment: Use of this assay is not recommended for patients undergoing treatment with eltrombopag due to the potential for falsely elevated results. Performed By: #### P HOS, PRO, CBC, GFR, CMP, ANEU, MG, ADIFF ####[place] [address] BUN/Creatinine Ratio 53.7 ratio High 10.0-22.0 [facility] Comment on above: Performed By: #### P HOS, PRO, CBC, GFR, CMP, ANEU, MG, ADIFF ####[place] [id number] Calcium [Mass/Vol] 8.0 mg/dL Low 8.7-10.4 [facility] Comment on above: Performed By: #### P HOS, PRO, CBC, GFR, CMP, ANEU, MG, ADIFF ####[place] [address] Chloride [Moles/Vol] 113 mmol/L High 98-110 [facility] Comment on above: Performed By: #### P HOS, PRO, CBC, GFR, CMP, ANEU, MG, ADIFF ####[place] [id number] CO2 [Moles/Vol] 28 mmol/L Normal 22-32 [facility] Comment on above: Performed By: #### P HOS, PRO, CBC, GFR, CMP, ANEU, MG, ADIFF ####[place] [address] Creatinine [Mass/Vol] 0.95 mg/dL Normal 0.60-1.40 [facility] Comment on above: Result Comment: Test ing performed on Ze[employer]elin analyzer using enzymatic creatinine methodology. Performed By: #### P HOS, PRO, CBC, GFR, CMP, ANEU, MG, ADIFF ####[place] [address] Electrolyte Balance 7.0 mEq/L Normal 4.0-15.0 [facility] Comment on above: Performed By: #### P HOS, PRO, CBC, GFR, CMP, ANEU, MG, ADIFF ####[place] [address] Globulin 4.3 G/dL High 1.5-3.8 [facility] Comment on above: Performed By: #### P HOS, PRO, CBC, GFR, CMP, ANEU, MG, ADIFF ####[address] [address] Glucose [Mass/Vol] 166 mg/dL High 82-115 [facility] Comment on above: Performed By: #### P HOS, PRO, CBC, GFR, CMP, ANEU, MG, ADIFF ####[address] [address] Potassium [Moles/Vol] 4.5 mmol/L Normal 3.5-5.0 [facility] Comment on above: Performed By: #### P HOS, PRO, CBC, GFR, CMP, ANEU, MG, ADIFF ####[address] [address] Sodium [Moles/Vol] 148 mmol/L High 136-145 [facility] Comment on above: Performed By: #### P HOS, PRO, CBC, GFR, CMP, ANEU, MG, ADIFF ####[place] [id number] Total Protein 6.0 G/dL Normal 5.7-8.2 [facility] Comment on above: Performed By: #### P HOS, PRO, CBC, GFR, CMP, ANEU, MG, ADIFF ####[address] [address] Urea nitrogen [Mass/Vol] 51.0 mg/dL High 8.0-22.0 [facility] Comment on above: Performed By: #### P HOS, PRO, CBC, GFR, CMP, ANEU, MG, ADIFF ####[address] [address] [address] ABDOMEN/PELVIS W/CONTRAST on 03-18-2024 CT ABDOMEN/PELVIS W/CONTRAST Normal [facility] ERTAPENEM:SUSC:PT:ISOLATE:OR DQN:MICon 03-18-2024 Ertapenem JD [Susc] Light Proteus mirab ilis Light Pseudomonas aeruginosa Moderate Streptococcus constellatus Unable to perform sensitivity testing due to the fastidious nature of the organism. Light Bacteroides fragilis Beta-Lactamase: Positive Susceptibility testing on anaerobic bacteria not done. Many technical and interpretive difficulties are associated with this testing and in many cases antimicrobial therapy is used as an adjunct to primary surgical management. Please contact Microbiology with any questions ([phone]). Heavy normal skin johnna present. Sensitivity testing not indicated. Unable to rule out all anaerobes due to swarming bacteria. [facility] Ertapenem JD [Susc]on 03-18 Bacteroides fragilis Bacteroides fragilis [facility] GS 4+ Polymorphonuclear cells 4+ Gram Positive Cocci 1+ Gram Positive Rods 2+ Gram Negative Rods [facility] Proteus mirabilis Proteus mirabilis [facility] Pseudomonas aeruginosa Pseudomonas aeruginosa [facility] Streptococcus constellatus Streptococcus constellatus [facility] LABORATORYOrdered By: SYSTEM SYSTEM on 03-18-2024 Albumin BCP dye [Mass/Vol] 1.7 G/dL Low 3.2 - 4.8 G/dL [facility] Albumin/Globulin [Mass ratio] 0.4 {ratio} Low 0.9 - 1.6 ratio ADM ALP [Catalytic activity/Vol] 61 U/L Normal 38 - 126 U/L [facility] ALT No additional P-5'-P [Catalytic activity/Vol] 31 U/L Normal 12 - 55 U/L [facility] AST [Catalytic activity/Vol] 23 U/L Normal 8 - 34 U/L ADM SS Bilirubin [Mass/Vol] 0.40 mg/dL Normal 0.20 - 1.20 mg/dL [facility] Comment on above: Interpretive Data: U se of this assay is not recommended for patients undergoing treatment with eltrombopag due to the potential for falsely elevated results. Globulin 4.3 G/dL High 1.5 - 3.8 G/dL ADM SS Magnesium [Mass/Vol] 2.3 mg/dL Normal 1.6 - 2 .4 mg/dL ADM SS Phosphate [Mass/Vol] 5.0 mg/dL Normal 2.4 - 5 .1 mg/dL [facility] Comment on above: Interpretive Data: * *Note - New Reference Range in effect 19 Protein [Mass/Vol] 6.0 G/dL Normal 5.7 - 8.2 G/dL ADM PT Coag (PPP) [Time] 11.7 s Normal 9.0 - 1 4.4 seconds [facility] Comment on above: Interpretive Data: E ffective 10/14/07, Protime results may be affected by some antibiotics (i.e. Ciprofloxacin, Azithromycin, Bactrim) which may potentiate the action of oral anticoagulants, with further increases in Protime/INR. PT International Ratio 1.0 ratio Invalid Interpretation Code [facility] Comment on above: Interpretive Data: Mason knowles [place] [employer] (CHEST, 1991, 102:312S-25S) recommended therapeutic range for oral anticoagulant therapy is: LOW RISK: Prophylaxis of venous thrombosis INR: 2.0-3.0 Treatment of pulmonary embolism 2.0-3.0 Prevention of systemic embolism 2.0-3.0 HIGH RISK: Mechanical prosthetic valves 2.5-3.5 MGon 03-18-2024 Magnesium [Mass/Vol] 2.3 mg/dL Normal 1.6-2.4 [facility] Comment on above: Performed By: #### P HOS, PRO, CBC, GFR, CMP, ANEU, MG, ADIFF ####[address] [address] PHOSon 03-18-2024 Phosphate [Mass/Vol] 5.0 mg/dL Normal 2.4-5.1 [facility] Comment on above: Result Comment: No te - New Reference Range in effect 19 Performed By: #### P HOS, PRO, CBC, GFR, CMP, ANEU, MG, ADIFF ####[place] [id number] [place] [address] PROon 03-18-2024 INR Coag (PPP) [Relative time] 1.0 {INR} Normal [facility] Comment on above: Result Comment: [employer] [place] [employer] (CHEST, 1991, 102:312S-25S)recommended therapeutic range for oral anticoagulant therapy is:LOW RISK: Prophylaxis of venous thrombosis INR: 2.0-3.0 Treatment of pulmonary embolism 2.0-3.0 Prevention of systemic embolism 2.0-3.0HIGH RISK: Mechanical prosthetic valves 2.5-3.5 Performed By: #### P HOS, PRO, CBC, GFR, CMP, ANEU, MG, ADIFF ####[facility] [place] [address] PT Coag (PPP) [Time] 11.7 s Normal 9.0-14.4 [facility] Comment on above: Result Comment: Effe ctive 10/14/07, Protime results may be affected by some antibiotics (i.e. Ciprofloxacin, Azithromycin, Bactrim) which may potentiate the action of oral anticoagulants, with further increases in Protime/INR. Performed By: #### P HOS, PRO, CBC, GFR, CMP, ANEU, MG, ADIFF ####[facility] [place] [address] Respiratory Cultureon 2023 RESPC TRACH/THROAT Escherichia coli Amount Growth 2+ Escherichia coli: REACTION Ampicillin Islt JD <=2 S Ampicillin+Sulbac Islt JD <=2 S Cefepime Islt JD <=0.12 S cefTRIAXone Islt JD <=0.25 S Ciprofloxacin Islt JD <=0.06 S B-Lactamase Extended Susc Islt NEG Gentamicin Islt JD <=1 S levoFLOXacin Islt DJ <=0.12 S Meropenem Islt JD <=0.25 S Pip+Tazo Islt JD <=4 S TMP SMX Islt JD <=20 S Normal [facility] Comment on above: Performed By: #### M 100.2400, #### [facility] [address] [place], [place], [phone] Gram Stainon 03-17-2024 GS Negative Normal [facility] Comment on above: Performed By: #### M 100.3000, M1 #### [facility] [address] [place], [place], [phone] Gram Stainon 03-16-2024 GS TRACH/THROAT Acceptable Specimen? Yes (<25 Epithelial cells per/lpf) Gram Stain No Epithelial cells 3+ White Blood Cells 3+ Gram positive rods 2+ Gram positive cocci Normal [facility] Comment on above: Performed By: #### M 100.2400, M100.2000 #### [facility] [address] [place], [address] AST(SGOT)on 03-12-2024 AST [Catalytic activity/Vol] 39 U/L High 15-37 [facility] Comment on above: Order Comment: PLEAS E ADD ON CMP AND MG TO 03/11/24 BLOOD WORK Result Comment: Slig ht Hemolysis, Result may be falsely increased. Performed By: #### L 501.4600, L100.0100, L501.1800, L501.4405, L501.4700, L501.5200, L500.2500, L501.4100, L001.0705, L501.2300 ####[facility] [address] [facility] [place], [address] Alanine Aminotransferas (SGP T)on 03-12-2024 ALT [Catalytic activity/Vol] 42 U/L Normal 16-61 [facility] Comment on above: Order Comment: PLEAS E ADD ON CMP AND MG TO 03/11/24 BLOOD WORK Performed By: #### L 501.4600, L100.0100, L501.1800, L501.4405, L501.4700, L501.5200, L500.2500, L501.4100, L001.0705, L501.2300 ####[facility] [address] [place], [address] Albumin, Serumon 03-12-2024 Albumin [Mass/Vol] 1.9 g/dL Low 3.2-5.0 [facility] Comment on above: Order Comment: PLEAS E ADD ON CMP AND MG TO 03/11/24 BLOOD WORK Performed By: #### L 501.4600, L100.0100, L501.1800, L501.4405, L501.4700, L501.5200, L500.2500, L501.4100, L001.0705, L501.2300 ####[facility] [address] [place], [place], [phone] Bilirubin, Directon 03-12-20 Bilirubin.direct [Mass/Vol] 0.17 mg/dL Normal 0.00-0.30 [facility] Comment on above: Order Comment: PLEAS E ADD ON CMP AND MG TO 03/11/24 BLOOD WORK Performed By: #### L 501.4600, L100.0100, L501.1800, L501.4405, L501.4700, L501.5200, L500.2500, L501.4100, L001.0705, L501.2300 ####[facility] [address] [place], [place], [address] Magnesiumon 03-12-2024 Magnesium [Mass/Vol] 2.0 mg/dL Normal 1.6-2.6 [facility] Comment on above: Order Comment: PLEAS E ADD ON CMP AND MG TO 03/11/24 BLOOD WORK Result Comment: Slig ht Hemolysis, Result may be falsely increased. Performed By: #### L 501.4600, L100.0100, L501.1800, L501.4405, L501.4700, L501.5200, L500.2500, L501.4100, L001.0705, L501.2300 ####[facility] [address] [place], [address] Phosphoruson 03-12-2024 Phosphate [Mass/Vol] 4.8 mg/dL Normal 2.5-4.9 [facility] Comment on above: Order Comment: PLEAS E ADD ON CMP AND MG TO 03/11/24 BLOOD WORK Performed By: #### L 501.4600, L100.0100, L501.1800, L501.4405, L501.4700, L501.5200, L500.2500, L501.4100, L001.0705, L501.2300 ####[facility] [address] [place], [address] Protein, Totalon 03-12-2024 Albumin/Globulin [Mass ratio] 0.4 {ratio} Low 0.9-2.4 [facility] Comment on above: Order Comment: PLEAS E ADD ON CMP AND MG TO 03/11/24 BLOOD WORK Performed By: #### L 501.4600, L100.0100, L501.1800, L501.4405, L501.4700, L501.5200, L500.2500, L501.4100, L001.0705, L501.2300 ####[facility] [address] [place], [phone] Globulin (S) [Mass/Vol] 4.7 g/dL High 2.2-4.2 [facility] Comment on above: Order Comment: PLEAS E ADD ON CMP AND MG TO 03/11/24 BLOOD WORK Performed By: #### L 501.4600, L100.0100, L501.1800, L501.4405, L501.4700, L501.5200, L500.2500, L501.4100, L001.0705, L501.2300 ####[facility] [address] [place], [place], [phone] PROT 6.6 g/dL Normal 6.4-8.2 [facility] Comment on above: Order Comment: PLEAS E ADD ON CMP AND MG TO 03/11/24 BLOOD WORK Performed By: #### L 501.4600, L100.0100, L501.1800, L501.4405, L501.4700, L501.5200, L500.2500, L501.4100, L001.0705, L501.2300 ####[facility] [address] [place], [address] Total Bilirubinon 03-12-2024 Bilirubin [Mass/Vol] 0.50 mg/dL Normal 0.20-1.00 [facility] Comment on above: Order Comment: PLEAS E ADD ON CMP AND MG TO 03/11/24 BLOOD WORK Result Comment: For patients on eltrombopag therapy, use of Dimension [place] TBIL is not recommended. Performed By: #### L 501.4600, L100.0100, L501.1800, L501.4405, L501.4700, L501.5200, L500.2500, L501.4100, L001.0705, L501.2300 ####[facility] [address] [place], [address] Basic Metabolic Profile (BMP )on 03-11-2024 BUN/CRE 43.5 RATIO High 10-20 [facility] Comment on above: Order Comment: .1 Performed By: #### L 501.4600, L100.0100, L501.1800, L501.4405, L501.4700, L501.5200, L500.2500, L501.4100, L001.0705, L501.2300 ####[facility] [address] [place], [place], [id number] CA,Total 8.8 mg/dL Normal 8.5-10.1 [facility] Comment on above: Order Comment: . Performed By: #### L 501.4600, L100.0100, L501.1800, L501.4405, L501.4700, L501.5200, L500.2500, L501.4100, L001.0705, L501.2300 ####[facility] [address] [place], [place], [phone] Chloride [Moles/Vol] 111 mmol/L High 98-107 [facility] Comment on above: Order Comment: .1 Performed By: #### L 501.4600, L100.0100, L501.1800, L501.4405, L501.4700, L501.5200, L500.2500, L501.4100, L001.0705, L501.2300 ####[facility] [address] [place], [place], [phone] CO2 [Moles/Vol] 29.0 mmol/L Normal 21.0-32.0 [facility] Comment on above: Order Comment: .1 Performed By: #### L 501.4600, L100.0100, L501.1800, L501.4405, L501.4700, L501.5200, L500.2500, L501.4100, L001.0705, L501.2300 ####[facility] [address] [place], [address] Creatinine [Mass/Vol] 0.90 mg/dL Normal 0.70-1.30 [facility] Comment on above: Order Comment: .1 Result Comment: The validity of the calculated GFR GFRAA in patients over 70 years has not been determined. Clinical correlation is essential. Performed By: #### L 501.4600, L100.0100, L501.1800, L501.4405, L501.4700, L501.5200, L500.2500, L501.4100, L001.0705, L501.2300 ####[facility] [address] [place], [place], [phone] EST GFR - AA 107 mL/min Normal >60 [facility] Comment on above: Order Comment: .1 Result Comment: Afri can [place] GFR Calc Performed By: #### L 501.4600, L100.0100, L501.1800, L501.4405, L501.4700, L501.5200, L500.2500, L501.4100, L001.0705, L501.2300 ####[facility] [address] [place], [place], [phone] GAP 5 Normal 5-15 [facility] Comment on above: Order Comment: . Performed By: #### L 501.4600, L100.0100, L501.1800, L501.4405, L501.4700, L501.5200, L500.2500, L501.4100, L001.0705, L501.2300 ####[facility] [address] [place], [address] GFR/1.73 sq M.predicted among non-blacks MDRD (S/P/Bld) [Vol rate/Area] 88 mL/min/{1.73_m2} Normal >60 [facility] Comment on above: Order Comment: 209.1 Result Comment: Non- GFR Calc Performed By: #### L 501.4600, L100.0100, L501.1800, L501.4405, L501.4700, L501.5200, L500.2500, L501.4100, L001.0705, L501.2300 ####[facility] [address] [place], [address] Glucose [Mass/Vol] 175 mg/dL High 74-106 [facility] Comment on above: Order Comment: 209.1 Result Comment: Fast ing Glucose result greater than or equal to 126 mg/dL suggests DIABETES MELLITUS per A.D.A. criteria. Performed By: #### L 501.4600, L100.0100, L501.1800, L501.4405, L501.4700, L501.5200, L500.2500, L501.4100, L001.0705, L501.2300 ####[facility] [address] [place], [address] Potassium [Moles/Vol] 4.5 mmol/L Normal 3.5-5.1 [facility] Comment on above: Order Comment: 209.1 Result Comment: Slig ht Hemolysis, Result may be falsely increased. Performed By: #### L 501.4600, L100.0100, L501.1800, L501.4405, L501.4700, L501.5200, L500.2500, L501.4100, L001.0705, L501.2300 ####[facility] [address] [place], [address] Sodium [Moles/Vol] 145 mmol/L Normal 136-145 [facility] Comment on above: Order Comment: .1 Performed By: #### L 501.4600, L100.0100, L501.1800, L501.4405, L501.4700, L501.5200, L500.2500, L501.4100, L001.0705, L501.2300 ####[facility] [address] [place], [address] Urea nitrogen [Mass/Vol] 39 mg/dL High 7-18 [facility] Comment on above: Order Comment: .1 Performed By: #### L 501.4600, L100.0100, L501.1800, L501.4405, L501.4700, L501.5200, L500.2500, L501.4100, L001.0705, L501.2300 ####[facility] [address] [place], [address] CBC W/Diff, Automatedon 03-01 SMEAR COMMENT SCANNED Normal [facility] Comment on above: Order Comment: . Result Comment: AUTO DIFF OK Performed By: #### L 501.4600, L100.0100, L501.1800, L501.4405, L501.4700, L501.5200, L500.2500, L501.4100, L001.0705, L501.2300 ####[facility] [address] [place], [address] Hemoglobin A1con 03-09-2024 HbA1c (Bld) [Mass fraction] 7.2 % High 3.8-5.6 [facility] Comment on above: Order Comment: 209 Result Comment: Norm al < 5.7 % Prediabetic 5.7 - 6.4 % Diabetic >or= 6.5 % Please note range changes. Performed By: #### L 506.1000, L501.9520, L501.9985, L503.0105 ####[facility] [address] [place], [address] Thyroid Stim Hormone (TSH)on 03-09-2024 TSH 2.720 uIU/mL Normal 0.358-3.74 0 [facility] Comment on above: Order Comment: 209 Performed By: #### L 506.1000, L501.9520, L501.9985, L503.0105 ####[facility] [address] [place], [address] Vitamin B12on 03-09-2024 Cobalamin (Vitamin B12) [Mass/Vol] 690 pg/mL Normal 211-911 [facility] Comment on above: Order Comment: 209 Performed By: #### L 506.1000, L501.9520, L501.9985, L503.0105 ####[facility] [address] [place], [address] Vitamin D,25 Hydroxyon 03-09 Vitamin D 25-OH 70.2 ng/mL Normal [facility] Comment on above: Order Comment: 209 Result Comment: Moni min D 25(OH) Status Range Deficiency <20 ng/mL (50nmol/L) Insufficiency 20 - 30 ng/mL (50 - 75 nmol/L) Sufficiency 30 - 100 ng/mL (75 - 250 nmol/L) Toxicity >100 ng/mL (>250 nmol/L) Performed By: #### L 506.1000, L501.9520, L501.9985, L503.0105 ####[facility] [address] [facility] [place], [address] CFUNGBon 03-05-[address] [facility] .Auto Diffon 03-02-2024 Basophil, Absolute 0.0 10 3/mcL Normal 0.0-0.3 [facility] Comment on above: Performed By: #### C BC, GFR, ANEU, ADIFF, BMP ####[facility] [place] [address] Basophils/100 WBC (Bld) 0.4 % Normal 0.0-2.5 [facility] Comment on above: Performed By: #### C BC, GFR, ANEU, ADIFF, BMP ####[address] [address] Eosinophil, Absolute 0.4 10 3/mcL Normal 0.0-0.7 [facility] Comment on above: Performed By: #### C BC, GFR, ANEU, ADIFF, BMP ####[address] [address] Eosinophils/100 WBC (Bld) 5.7 % Normal 0.0-6.0 [facility] Comment on above: Performed By: #### C BC, GFR, ANEU, ADIFF, BMP ####[place] [id number] Lymphocyte, Absolute 1.2 10 3/mcL Normal 0.9-4.3 [facility] Comment on above: Performed By: #### C BC, GFR, ANEU, ADIFF, BMP ####[address] [address] Lymphocytes/100 WBC (Bld) 16.0 % Low 20.0-40.0 [facility] Comment on above: Performed By: #### C BC, GFR, ANEU, ADIFF, BMP ####[place] [id number] Monocyte, Absolute 0.8 10 3/mcL Normal 0.1-1.4 [facility] Comment on above: Performed By: #### C BC, GFR, ANEU, ADIFF, BMP ####[address] [address] Monocytes/100 WBC (Bld) 10.1 % Normal 2.0-13.0 [facility] Comment on above: Performed By: #### C BC, GFR, ANEU, ADIFF, BMP ####[address] [address] Neutrophils/100 WBC (Bld) 67.8 % Normal 50.0-75.0 [facility] Comment on above: Performed By: #### C BC, GFR, ANEU, ADIFF, BMP ####[address] [address] .GFRon 03-02-2024 GFR Non- >60 Normal [facility] Comment on above: Result Comment: GFR Population mean for , Non- Americans Ages 20-29 = 116 mL/min/1.73 sq.m. Ages 30-39 = 107 mL/min/1.73 sq.m. Ages 40-49 = 99 mL/min/1.73 sq.m. Ages 50-59 = 93 mL/min/1.73 sq.m. Ages 60-69 = 85 mL/min/1.73 sq.m. Ages 70+ = 75 mL/min/1.73 sq.m.Chronic Kidney Disease: Less than 60 mL/min/1.73 square metersEnd Stage Renal Disease: Less than 15 mL/min/1.73 square meters Performed By: #### C BC, GFR, ANEU, ADIFF, BMP ####[place] [address] GFR >60 Normal [facility] Comment on above: Result Comment: GFR Population mean for , Non- Americans Ages 20-29 = 116 mL/min/1.73 sq.m. Ages 30-39 = 107 mL/min/1.73 sq.m. Ages 40-49 = 99 mL/min/1.73 sq.m. Ages 50-59 = 93 mL/min/1.73 sq.m. Ages 60-69 = 85 mL/min/1.73 sq.m. Ages 70+ = 75 mL/min/1.73 sq.m.Chronic Kidney Disease: Less than 60 mL/min/1.73 square metersEnd Stage Renal Disease: Less than 15 mL/min/1.73 square meters Performed By: #### C BC, GFR, ANEU, ADIFF, BMP ####[place] [address] [place] [address] .NEUABSon 03-02-2024 Neutrophil, Absolute 5.2 10 3/mcL Normal 2.3-8.1 [facility] Comment on above: Performed By: #### C BC, GFR, ANEU, ADIFF, BMP ####[address] [address] BMPon 03-02-2024 BUN/Creatinine Ratio 63.0 ratio High 10.0-22.0 [facility] Comment on above: Performed By: #### C BC, GFR, ANEU, ADIFF, BMP ####[address] [address] Calcium [Mass/Vol] 8.2 mg/dL Low 8.7-10.4 [facility] Comment on above: Performed By: #### C BC, GFR, ANEU, ADIFF, BMP ####[place] [address] Chloride [Moles/Vol] 109 mmol/L Normal 98-110 [facility] Comment on above: Performed By: #### C BC, GFR, ANEU, ADIFF, BMP ####[address] [address] CO2 [Moles/Vol] 28 mmol/L Normal 22-32 [facility] Comment on above: Performed By: #### C BC, GFR, ANEU, ADIFF, BMP ####[place] [address] Creatinine [Mass/Vol] 0.81 mg/dL Normal 0.60-1.40 [facility] Comment on above: Result Comment: Test ing performed on Zeppelin analyzer using enzymatic creatinine methodology. Performed By: #### C BC, GFR, ANEU, ADIFF, BMP ####[place] [address] Electrolyte Balance 7.0 mEq/L Normal 4.0-15.0 [facility] Comment on above: Performed By: #### C BC, GFR, ANEU, ADIFF, BMP ####[place] [id number] Glucose [Mass/Vol] 142 mg/dL High 82-115 [facility] Comment on above: Performed By: #### C BC, GFR, ANEU, ADIFF, BMP ####[place] [phone] Potassium [Moles/Vol] 4.6 mmol/L Normal 3.5-5.0 [facility] Comment on above: Performed By: #### C BC, GFR, ANEU, ADIFF, BMP ####[place] [address] Sodium [Moles/Vol] 144 mmol/L Normal 136-145 [facility] Comment on above: Performed By: #### C BC, GFR, ANEU, ADIFF, BMP ####[place] [address] Urea nitrogen [Mass/Vol] 51.0 mg/dL High 8.0-22.0 [facility] Comment on above: Performed By: #### C BC, GFR, ANEU, ADIFF, BMP ####[place] [address] CBCon 03-02-2024 Erythrocyte distribution width (RBC) [Ratio] 13.8 % Normal 11.5-15.5 [facility] Comment on above: Performed By: #### C BC, GFR, ANEU, ADIFF, BMP ####[place] [address] Hematocrit (Bld) [Volume fraction] 27.5 % Low 40.0-52.0 [facility] Comment on above: Performed By: #### C BC, GFR, ANEU, ADIFF, BMP ####[place] [address] Hgb 9.0 G/dL Low 13.0-17.5 [facility] Comment on above: Performed By: #### C BC, GFR, ANEU, ADIFF, BMP ####[place] [address] MCH (RBC) [Entitic mass] 29.8 pg Normal 27.0-33.0 [facility] Comment on above: Performed By: #### C BC, GFR, ANEU, ADIFF, BMP ####[place] [address] MCHC 32.6 G/dL Normal 32.0-36.0 [facility] Comment on above: Performed By: #### C BC, GFR, ANEU, ADIFF, BMP ####[place] [address] MCV (RBC) [Entitic vol] 91.6 fL Normal 81.0-100.0 [facility] Comment on above: Performed By: #### C BC, GFR, ANEU, ADIFF, BMP ####[place] [address] Platelet 192 10 3/mcL Normal 150-450 [facility] Comment on above: Performed By: #### C BC, GFR, ANEU, ADIFF, BMP ####[place] [address] Platelet mean volume (Bld) [Entitic vol] 8.3 fL Normal 6.4-10.5 [facility] Comment on above: Performed By: #### C BC, GFR, ANEU, ADIFF, BMP ####[place] [address] RBC 3.00 10 6/mcL Low 4.50-6.00 [facility] Comment on above: Performed By: #### C BC, GFR, ANEU, ADIFF, BMP ####[place] [address] WBC 7.6 10 3/mcL Normal 4.5-10.8 [facility] Comment on above: Performed By: #### C BC, GFR, ANEU, ADIFF, BMP ####[place] [address] ALBon 02-28-2024 Albumin Level 1.7 G/dL Low 3.2-4.8 [facility] Comment on above: Performed By: #### A LB PRALB ####[place] [address] PRALBon 02-28-2024 Prealbumin [Mass/Vol] 14.1 mg/dL Normal 10.0-40.0 [facility] Comment on above: Result Comment: No te - New Reference Range in effect 19 Performed By: #### A LB, PRALB ####[place] [address] CRESPon 02-25-2024 CRESP Normal [facility] .Auto Diffon 02-24-2024 Basophil, Absolute 0.0 10 3/mcL Normal 0.0-0.3 [facility] Comment on above: Performed By: #### A DARRIAN, CBC, GFR, BMP, ADIFF ####[address] [address] Basophils/100 WBC (Bld) 0.4 % Normal 0.0-2.5 [facility] Comment on above: Performed By: #### A DARRIAN, CBC, GFR, BMP, ADIFF ####[address] [address] Eosinophil, Absolute 0.3 10 3/mcL Normal 0.0-0.7 [facility] Comment on above: Performed By: #### A DARRIAN, CBC, GFR, BMP, ADIFF ####[address] [address] Eosinophils/100 WBC (Bld) 2.6 % Normal 0.0-6.0 [facility] Comment on above: Performed By: #### A DARRIAN, CBC, GFR, BMP, ADIFF ####[address] [address] [address] Lymphocyte, Absolute 1.2 10 3/mcL Normal 0.9-4.3 [facility] Comment on above: Performed By: #### A DARRIAN, CBC, GFR, BMP, ADIFF ####[address] [address] Lymphocytes/100 WBC (Bld) 12.0 % Low 20.0-40.0 [facility] Comment on above: Performed By: #### A DARRIAN, CBC, GFR, BMP, ADIFF ####[address] [address] Monocyte, Absolute 1.1 10 3/mcL Normal 0.1-1.4 [facility] Comment on above: Performed By: #### A DARRIAN, CBC, GFR, BMP, ADIFF ####[address] [address] Monocytes/100 WBC (Bld) 11.3 % Normal 2.0-13.0 [facility] Comment on above: Performed By: #### A DARRIAN, CBC, GFR, BMP, ADIFF ####[address] [address] Neutrophils/100 WBC (Bld) 73.7 % Normal 50.0-75.0 [facility] Comment on above: Performed By: #### A DARRIAN, CBC, GFR, BMP, ADIFF ####[address] [address] .GFRon 02-24-2024 GFR >60 Normal [facility] Comment on above: Result Comment: GFR Population mean for , Non- Americans Ages 20-29 = 116 mL/min/1.73 sq.m. Ages 30-39 = 107 mL/min/1.73 sq.m. Ages 40-49 = 99 mL/min/1.73 sq.m. Ages 50-59 = 93 mL/min/1.73 sq.m. Ages 60-69 = 85 mL/min/1.73 sq.m. Ages 70+ = 75 mL/min/1.73 sq.m.Chronic Kidney Disease: Less than 60 mL/min/1.73 square metersEnd Stage Renal Disease: Less than 15 mL/min/1.73 square meters Performed By: #### A DARRIAN, CBC, GFR, BMP, ADIFF ####[address] [address] GFR Non- >60 Normal [facility] Comment on above: Result Comment: GFR Population mean for , Non- Americans Ages 20-29 = 116 mL/min/1.73 sq.m. Ages 30-39 = 107 mL/min/1.73 sq.m. Ages 40-49 = 99 mL/min/1.73 sq.m. Ages 50-59 = 93 mL/min/1.73 sq.m. Ages 60-69 = 85 mL/min/1.73 sq.m. Ages 70+ = 75 mL/min/1.73 sq.m.Chronic Kidney Disease: Less than 60 mL/min/1.73 square metersEnd Stage Renal Disease: Less than 15 mL/min/1.73 square meters Performed By: #### A DARRIAN, CBC, GFR, BMP, ADIFF ####[address] [address] .NEUABSon 11-25-2024 Neutrophil, Absolute 7.2 10 3/mcL Normal 2.3-8.1 [facility] Comment on above: Performed By: #### A DARRIAN, CBC, GFR, BMP, ADIFF ####[address] [address] BMPon 02-24-2024 BUN/Creatinine Ratio 59.6 ratio High 10.0-22.0 [facility] Comment on above: Performed By: #### A DARRIAN, CBC, GFR, BMP, ADIFF ####[place] [id number] Calcium [Mass/Vol] 7.8 mg/dL Low 8.7-10.4 [facility] Comment on above: Performed By: #### A DARRIAN, CBC, GFR, BMP, ADIFF ####[place] [address] Chloride [Moles/Vol] 110 mmol/L Normal 98-110 [facility] Comment on above: Performed By: #### A DARRIAN, CBC, GFR, BMP, ADIFF ####[place] [id number] CO2 [Moles/Vol] 26 mmol/L Normal 22-32 [facility] Comment on above: Performed By: #### A DARRIAN, CBC, GFR, BMP, ADIFF ####[place] [address] Creatinine [Mass/Vol] 0.94 mg/dL Normal 0.60-1.40 [facility] Comment on above: Result Comment: Test ing performed on Zeppelin analyzer using enzymatic creatinine methodology. Performed By: #### A DARRIAN, CBC, GFR, BMP, ADIFF ####[address] [address] Electrolyte Balance 8.0 mEq/L Normal 4.0-15.0 [facility] Comment on above: Performed By: #### A DARRIAN, CBC, GFR, BMP, ADIFF ####[place] [id number] Glucose [Mass/Vol] 131 mg/dL High 82-115 [facility] Comment on above: Performed By: #### A DARRIAN, CBC, GFR, BMP, ADIFF ####[place] [address] Potassium [Moles/Vol] 4.7 mmol/L Normal 3.5-5.0 [facility] Comment on above: Performed By: #### A DARRIAN, CBC, GFR, BMP, ADIFF ####[place] [address] Sodium [Moles/Vol] 144 mmol/L Normal 136-145 [facility] Comment on above: Performed By: #### A DARRIAN, CBC, GFR, BMP, ADIFF ####[place] [address] Urea nitrogen [Mass/Vol] 56.0 mg/dL High 8.0-22.0 [facility] Comment on above: Performed By: #### A DARRIAN, CBC, GFR, BMP, ADIFF ####[place] [address] CBCon 02-24-2024 Erythrocyte distribution width (RBC) [Ratio] 12.9 % Normal 11.5-15.5 [facility] Comment on above: Performed By: #### A DARRIAN, CBC, GFR, BMP, ADIFF ####[place] [address] Hematocrit (Bld) [Volume fraction] 27.1 % Low 40.0-52.0 [facility] Comment on above: Performed By: #### A DARRIAN, CBC, GFR, BMP, ADIFF ####[place] [address] Hgb 9.0 G/dL Low 13.0-17.5 [facility] Comment on above: Performed By: #### A DARRIAN, CBC, GFR, BMP, ADIFF ####[place] [address] MCH (RBC) [Entitic mass] 30.2 pg Normal 27.0-33.0 [facility] Comment on above: Performed By: #### A DARRIAN, CBC, GFR, BMP, ADIFF ####[place] [address] MCHC 33.1 G/dL Normal 32.0-36.0 [facility] Comment on above: Performed By: #### A DARRIAN, CBC, GFR, BMP, ADIFF ####[place] [address] MCV (RBC) [Entitic vol] 91.1 fL Normal 81.0-100.0 [facility] Comment on above: Performed By: #### A DARRIAN, CBC, GFR, BMP, ADIFF ####[place] [address] Platelet 206 10 3/mcL Normal 150-450 [facility] Comment on above: Performed By: #### A DARRIAN, CBC, GFR, BMP, ADIFF ####[place] [address] Platelet mean volume (Bld) [Entitic vol] 9.2 fL Normal 6.4-10.5 [facility] Comment on above: Performed By: #### A DARRIAN, CBC, GFR, BMP, ADIFF ####[place] [address] RBC 2.98 10 6/mcL Low 4.50-6.00 [facility] Comment on above: Performed By: #### A DARRIAN, CBC, GFR, BMP, ADIFF ####[place] [address] WBC 9.8 10 3/mcL Normal 4.5-10.8 [facility] Comment on above: Performed By: #### A DARRIAN, CBC, GFR, BMP, ADIFF ####[place] [address] CFUNGBon 02-24-[address] [facility] CFUNGB Normal [facility] XR CHEST 1 VIEWon 02-23-2024 XR CHEST [address] [facility] XR ENTERIC TUBE PLACEMENTon 02-23-2024 XR ENTERIC TUBE PLACEMENT Normal [facility] CT ANGIOGRAPHY NECK W/CONTRA STon 02-21-2024 CT ANGIOGRAPHY NECK W/CONTRAST Normal [facility] .Auto Diffon 02-17-2024 Basophil, Absolute 0.1 10 3/mcL Normal 0.0-0.3 [facility] Comment on above: Performed By: #### G FR, ANEU, BMP, ADIFF, CBC ####[address] [address] Basophils/100 WBC (Bld) 0.8 % Normal 0.0-2.5 [facility] Comment on above: Performed By: #### G FR, ANEU, BMP, ADIFF, CBC ####[address] [address] Eosinophil, Absolute 0.2 10 3/mcL Normal 0.0-0.7 [facility] Comment on above: Performed By: #### G FR, ANEU, BMP, ADIFF, CBC ####[address] [address] Eosinophils/100 WBC (Bld) 1.5 % Normal 0.0-6.0 [facility] Comment on above: Performed By: #### G FR, ANEU, BMP, ADIFF, CBC ####[address] [address] Lymphocyte, Absolute 1.5 10 3/mcL Normal 0.9-4.3 [facility] Comment on above: Performed By: #### G FR, ANEU, BMP, ADIFF, CBC ####[address] [address] Lymphocytes/100 WBC (Bld) 10.7 % Low 20.0-40.0 [facility] Comment on above: Performed By: #### G FR, ANEU, BMP, ADIFF, CBC ####[address] [address] Monocyte, Absolute 1.2 10 3/mcL Normal 0.1-1.4 [facility] Comment on above: Performed By: #### G FR, ANEU, BMP, ADIFF, CBC ####[address] [address] Monocytes/100 WBC (Bld) 8.2 % Normal 2.0-13.0 [facility] Comment on above: Performed By: #### G FR, ANEU, BMP, ADIFF, CBC ####[address] [address] Neutrophils/100 WBC (Bld) 78.8 % High 50.0-75.0 [facility] Comment on above: Performed By: #### G FR, ANEU, BMP, ADIFF, CBC ####[place] [address] [place] [address] .GFRon 02-17-2024 GFR Non- >60 [facility]IN Comment on above: Result Comment: GFR Population mean for , Non- Americans Ages 20-29 = 116 mL/min/1.73 sq.m. Ages 30-39 = 107 mL/min/1.73 sq.m. Ages 40-49 = 99 mL/min/1.73 sq.m. Ages 50-59 = 93 mL/min/1.73 sq.m. Ages 60-69 = 85 mL/min/1.73 sq.m. Ages 70+ = 75 mL/min/1.73 sq.m.Chronic Kidney Disease: Less than 60 mL/min/1.73 square metersEnd Stage Renal Disease: Less than 15 mL/min/1.73 square meters Performed By: #### G FR, ANEU, BMP, ADIFF, CBC ####[place] [address] GFR >60 Normal [facility] Comment on above: Result Comment: GFR Population mean for , Non- Americans Ages 20-29 = 116 mL/min/1.73 sq.m. Ages 30-39 = 107 mL/min/1.73 sq.m. Ages 40-49 = 99 mL/min/1.73 sq.m. Ages 50-59 = 93 mL/min/1.73 sq.m. Ages 60-69 = 85 mL/min/1.73 sq.m. Ages 70+ = 75 mL/min/1.73 sq.m.Chronic Kidney Disease: Less than 60 mL/min/1.73 square metersEnd Stage Renal Disease: Less than 15 mL/min/1.73 square meters Performed By: #### G FR, ANEU, BMP, ADIFF, CBC ####[place] [address] [place] [address] .NEUABSon 02-17-2024 Neutrophil, Absolute 11.3 10 3/mcL High 2.3-8.1 [facility] Comment on above: Performed By: #### G FR, ANEU, BMP, ADIFF, CBC ####[place] [id number] BMPon 02-17-2024 BUN/Creatinine Ratio 55.3 ratio High 10.0-22.0 [facility] Comment on above: Performed By: #### G FR, ANEU, BMP, ADIFF, CBC ####[place] [address] Calcium [Mass/Vol] 7.6 mg/dL Low 8.7-10.4 [facility] Comment on above: Performed By: #### G FR, ANEU, BMP, ADIFF, CBC ####[place] [address] Chloride [Moles/Vol] 112 mmol/L High 98-110 [facility] Comment on above: Performed By: #### G FR, ANEU, BMP, ADIFF, CBC ####[place] [address] CO2 [Moles/Vol] 27 mmol/L Normal 22-32 [facility] Comment on above: Performed By: #### G FR, ANEU, BMP, ADIFF, CBC ####[place] [address] Creatinine [Mass/Vol] 1.14 mg/dL Normal 0.60-1.40 [facility] Comment on above: Result Comment: Test ing performed on Zeppelin analyzer using enzymatic creatinine methodology. Performed By: #### G FR, ANEU, BMP, ADIFF, CBC ####[place] [address] Electrolyte Balance 7.0 mEq/L Normal 4.0-15.0 [facility] Comment on above: Performed By: #### G FR, ANEU, BMP, ADIFF, CBC ####[place] [address] Glucose [Mass/Vol] 79 mg/dL Low 82-115 [facility] Comment on above: Performed By: #### G FR, ANEU, BMP, ADIFF, CBC ####[place] [address] Potassium [Moles/Vol] 5.0 mmol/L Normal 3.5-5.0 [facility] Comment on above: Performed By: #### G FR, ANEU, BMP, ADIFF, CBC ####[place] [address] Sodium [Moles/Vol] 146 mmol/L High 136-145 [facility] Comment on above: Performed By: #### G FR, ANEU, BMP, ADIFF, CBC ####[place] [address] Urea nitrogen [Mass/Vol] 63.0 mg/dL High 8.0-22.0 [facility] Comment on above: Performed By: #### G FR, ANEU, BMP, ADIFF, CBC ####[place] [address] CBCon 02-17-2024 Erythrocyte distribution width (RBC) [Ratio] 13.0 % Normal 11.5-15.5 [facility] Comment on above: Performed By: #### G FR, ANEU, BMP, ADIFF, CBC ####[place] [address] Hematocrit (Bld) [Volume fraction] 29.2 % Low 40.0-52.0 [facility] Comment on above: Performed By: #### G FR, ANEU, BMP, ADIFF, CBC ####[place] [address] Hgb 9.7 G/dL Low 13.0-17.5 [facility] Comment on above: Performed By: #### G FR, ANEU, BMP, ADIFF, CBC ####[place] [address] MCH (RBC) [Entitic mass] 30.3 pg Normal 27.0-33.0 [facility] Comment on above: Performed By: #### G FR, ANEU, BMP, ADIFF, CBC ####[place] [address] MCHC 33.4 G/dL Normal 32.0-36.0 [facility] Comment on above: Performed By: #### G FR, ANEU, BMP, ADIFF, CBC ####[place] [address] MCV (RBC) [Entitic vol] 91.0 fL Normal 81.0-100.0 [facility] Comment on above: Performed By: #### G FR, ANEU, BMP, ADIFF, CBC ####[place] [address] Platelet 241 10 3/mcL Normal 150-450 [facility] Comment on above: Performed By: #### G FR, ANEU, BMP, ADIFF, CBC ####[place] [address] Platelet mean volume (Bld) [Entitic vol] 10.0 fL Normal 6.4-10.5 [facility] Comment on above: Performed By: #### G FR, ANEU, BMP, ADIFF, CBC ####[place] [address] RBC 3.20 10 6/mcL Low 4.50-6.00 [facility] Comment on above: Performed By: #### G FR, ANEU, BMP, ADIFF, CBC ####[place] [address] WBC 14.3 10 3/mcL High 4.5-10.8 [facility] Comment on above: Performed By: #### G FR, ANEU, BMP, ADIFF, CBC ####[place] [address] XR ENTERIC TUBE PLACEMENTon 02-17-2024 XR ENTERIC TUBE PLACEMENT Normal [facility] .GFRon 02-12-2024 GFR >60 Normal [facility] Comment on above: Result Comment: GFR Population mean for , Non- Americans Ages 20-29 = 116 mL/min/1.73 sq.m. Ages 30-39 = 107 mL/min/1.73 sq.m. Ages 40-49 = 99 mL/min/1.73 sq.m. Ages 50-59 = 93 mL/min/1.73 sq.m. Ages 60-69 = 85 mL/min/1.73 sq.m. Ages 70+ = 75 mL/min/1.73 sq.m.Chronic Kidney Disease: Less than 60 mL/min/1.73 square metersEnd Stage Renal Disease: Less than 15 mL/min/1.73 square meters Performed By: #### B MP, GFR ####[address] [address] GFR Non- 57 ml/min/1.73sqm Normal [facility] Comment on above: Result Comment: GFR Population mean for , Non- Americans Ages 20-29 = 116 mL/min/1.73 sq.m. Ages 30-39 = 107 mL/min/1.73 sq.m. Ages 40-49 = 99 mL/min/1.73 sq.m. Ages 50-59 = 93 mL/min/1.73 sq.m. Ages 60-69 = 85 mL/min/1.73 sq.m. Ages 70+ = 75 mL/min/1.73 sq.m.Chronic Kidney Disease: Less than 60 mL/min/1.73 square metersEnd Stage Renal Disease: Less than 15 mL/min/1.73 square meters Performed By: #### B MP, GFR ####[address] [address] BMPon 02-12-2024 BUN/Creatinine Ratio 52.4 ratio High 10.0-22.0 [facility] Comment on above: Performed By: #### B MP, GFR ####[address] [address] Calcium [Mass/Vol] 6.8 mg/dL Critically abnormal 8.7-10.4 [facility] Comment on above: Performed By: #### B MP, GFR ####[address] [address] Chloride [Moles/Vol] 112 mmol/L High 98-110 [facility] Comment on above: Performed By: #### B MP, GFR ####[address] [address] CO2 [Moles/Vol] 22 mmol/L Normal 22-32 [facility] Comment on above: Performed By: #### B MP, GFR ####[address] [address] Creatinine [Mass/Vol] 1.24 mg/dL Normal 0.60-1.40 [facility] Comment on above: Result Comment: Test ing performed on Zeppelin analyzer using enzymatic creatinine methodology. Performed By: #### B MP, GFR ####[address] [address] Electrolyte Balance 10.0 mEq/L Normal 4.0-15.0 [facility] Comment on above: Performed By: #### B MP, GFR ####[place] [id number] Glucose [Mass/Vol] 159 mg/dL High 82-115 [facility] Comment on above: Performed By: #### B MP, GFR ####[place] [address] Potassium [Moles/Vol] 4.8 mmol/L Normal 3.5-5.0 [facility] Comment on above: Performed By: #### B MP, GFR ####[place] [address] Sodium [Moles/Vol] 144 mmol/L Normal 136-145 [facility] Comment on above: Performed By: #### B MP, GFR ####[address] [address] Urea nitrogen [Mass/Vol] 65.0 mg/dL High 8.0-22.0 [facility] Comment on above: Performed By: #### B MP, GFR ####[address] [address] BGon 02-11-2024 Base excess Calc (Bld) [Moles/Vol] -3.2000 mmol/L Normal [facility] Comment on above: Order Comment: 35% F IO2 Performed By: #### B G ####[address] [address] CO2 [Moles/Vol] 21.2 mmol/L Low 22.0-30.0 [facility] Comment on above: Order Comment: 35% F IO2 Performed By: #### B G ####[place] [address] HCO3 (Bld) [Moles/Vol] 20.2 mmol/L Low 21.0-29.0 [facility] Comment on above: Order Comment: 35% F IO2 Performed By: #### B G ####[place] [address] Oxygen (Bld) [Partial pressure] 49.4 mm[Hg] Critically abnormal 74.0-108.0 [facility] Comment on above: Order Comment: 35% F IO2 Performed By: #### B G ####[place] [address] Oxygen saturation in Blood 84.8 % Low 92.0-96.0 [facility] Comment on above: Order Comment: 35% F IO2 Performed By: #### B G ####[place] [address] pCO2 30.9 mmHg Low 32.0-46.0 [facility] Comment on above: Order Comment: 35% F IO2 Performed By: #### B G ####[place] [address] pH (Bld) 7.434 [pH] Normal 7.380-7.46 0 [facility] Comment on above: Order Comment: 35% F IO2 Performed By: #### B G ####[place] [address] .Auto Diffon 02-10-2024 Basophil, Absolute 0.0 10 3/mcL Normal 0.0-0.3 [facility] Comment on above: Performed By: #### C MP, ADIFF, ANEU, GFR, CBC ####[place] [address] Basophils/100 WBC (Bld) 0.2 % Normal 0.0-2.5 [facility] Comment on above: Performed By: #### C MP, ADIFF, ANEU, GFR, CBC ####[id number] [place] [address] Eosinophil, Absolute 0.0 10 3/mcL Normal 0.0-0.7 [facility] Comment on above: Performed By: #### C MP, ADIFF, ANEU, GFR, CBC ####[address] [address] Eosinophils/100 WBC (Bld) 0.3 % Normal 0.0-6.0 [facility] Comment on above: Performed By: #### C MP, ADIFF, ANEU, GFR, CBC ####[address] [address] Lymphocyte, Absolute 1.3 10 3/mcL Normal 0.9-4.3 [facility] Comment on above: Performed By: #### C MP, ADIFF, ANEU, GFR, CBC ####[address] [address] Lymphocytes/100 WBC (Bld) 11.4 % Low 20.0-40.0 [facility] Comment on above: Performed By: #### C MP, ADIFF, ANEU, GFR, CBC ####[address] [address] Monocyte, Absolute 1.0 10 3/mcL Normal 0.1-1.4 [facility] Comment on above: Performed By: #### C MP, ADIFF, ANEU, GFR, CBC ####[address] [address] Monocytes/100 WBC (Bld) 9.0 % Normal 2.0-13.0 [facility] Comment on above: Performed By: #### C MP, ADIFF, ANEU, GFR, CBC ####[address] [address] Neutrophils/100 WBC (Bld) 79.1 % High 50.0-75.0 [facility] Comment on above: Performed By: #### C MP, ADIFF, ANEU, GFR, CBC ####[address] [address] .GFRon 02-10-2024 GFR Non- 49 ml/min/1.73sqm Normal [facility] Comment on above: Result Comment: GFR Population mean for , Non- Americans Ages 20-29 = 116 mL/min/1.73 sq.m. Ages 30-39 = 107 mL/min/1.73 sq.m. Ages 40-49 = 99 mL/min/1.73 sq.m. Ages 50-59 = 93 mL/min/1.73 sq.m. Ages 60-69 = 85 mL/min/1.73 sq.m. Ages 70+ = 75 mL/min/1.73 sq.m.Chronic Kidney Disease: Less than 60 mL/min/1.73 square metersEnd Stage Renal Disease: Less than 15 mL/min/1.73 square meters Performed By: #### C MICHAEL BISHOP, ANEU, GFR, CBC ####[address] [address] GFR 59 ml/min/1.73sqm Normal [facility] Comment on above: Result Comment: GFR Population mean for , Non- Americans Ages 20-29 = 116 mL/min/1.73 sq.m. Ages 30-39 = 107 mL/min/1.73 sq.m. Ages 40-49 = 99 mL/min/1.73 sq.m. Ages 50-59 = 93 mL/min/1.73 sq.m. Ages 60-69 = 85 mL/min/1.73 sq.m. Ages 70+ = 75 mL/min/1.73 sq.m.Chronic Kidney Disease: Less than 60 mL/min/1.73 square metersEnd Stage Renal Disease: Less than 15 mL/min/1.73 square meters Performed By: #### C MICHAEL BISHOP ANEU, GFR, CBC ####[address] [address] .NEUABSon 02-10-2024 Neutrophil, Absolute 8.9 10 3/mcL High 2.3-8.1 [facility] Comment on above: Performed By: #### C MICHAEL BISHOP ANEU, GFR, CBC ####[address] [address] CAon 02-10-2024 Calcium [Mass/Vol] 6.7 mg/dL Critically abnormal 8.7-10.4 [facility] Comment on above: Performed By: #### C A ####[place] [address] CAIONon 02-10-2024 Calcium Ionized 0.98 mmol/L Low 1.12-1.32 [facility] Comment on above: Performed By: #### C AION ####[place] [address] CBCon 02-10-2024 Erythrocyte distribution width (RBC) [Ratio] 13.0 % Normal 11.5-15.5 [facility] Comment on above: Performed By: #### C MP, ADIFF, ANEU, GFR, CBC ####[place] [address] Hematocrit (Bld) [Volume fraction] 29.7 % Low 40.0-52.0 [facility] Comment on above: Performed By: #### C MP, ADIFF, ANEU, GFR, CBC ####[place] [address] Hgb 9.9 G/dL Low 13.0-17.5 [facility] Comment on above: Performed By: #### C MP, ADIFF, ANEU, GFR, CBC ####[place] [address] MCH (RBC) [Entitic mass] 30.1 pg Normal 27.0-33.0 [facility] Comment on above: Performed By: #### C MP, ADIFF, ANEU, GFR, CBC ####[place] [address] MCHC 33.3 G/dL Normal 32.0-36.0 [facility] Comment on above: Performed By: #### C MP, ADIFF, ANEU, GFR, CBC ####[place] [address] MCV (RBC) [Entitic vol] 90.6 fL Normal 81.0-100.0 [facility] Comment on above: Performed By: #### C MP, ADIFF, ANEU, GFR, CBC ####[place] [address] Platelet 484 10 3/mcL High 150-450 [facility] Comment on above: Performed By: #### C MP, ADIFF, ANEU, GFR, CBC ####[place] [address] Platelet mean volume (Bld) [Entitic vol] 9.2 fL Normal 6.4-10.5 [facility] Comment on above: Performed By: #### C MP, ADIFF, ANEU, GFR, CBC ####[place] [address] RBC 3.28 10 6/mcL Low 4.50-6.00 [facility] Comment on above: Performed By: #### C MP, ADIFF, ANEU, GFR, CBC ####[place] [address] WBC 11.3 10 3/mcL High 4.5-10.8 [facility] Comment on above: Performed By: #### C MP, ADIFF, ANEU, GFR, CBC ####[place] [address] CMPon 02-10-2024 Albumin Level 1.2 G/dL Low 3.2-4.8 [facility] Comment on above: Performed By: #### C MP, ADIFF, ANEU, GFR, CBC ####[place] [address] Albumin/Globulin [Mass ratio] 0.3 {ratio} Low 0.9-1.6 [facility] Comment on above: Performed By: #### C MP, ADIFF, ANEU, GFR, CBC ####[place] [address] ALP [Catalytic activity/Vol] 105 U/L Normal 38-126 [facility] Comment on above: Performed By: #### C MP, ADIFF, ANEU, GFR, CBC ####[place] [address] ALT [Catalytic activity/Vol] 66 U/L High 12-55 [facility] Comment on above: Performed By: #### C MP, ADIFF, ANEU, GFR, CBC ####[place] [address] AST [Catalytic activity/Vol] 80 U/L High 8-34 [facility] Comment on above: Performed By: #### C MP, ADIFF, ANEU, GFR, CBC ####[address] [address] Bili Total 0.40 mg/dL Normal 0.20-1.20 [facility] Comment on above: Result Comment: Use of this assay is not recommended for patients undergoing treatment with eltrombopag due to the potential for falsely elevated results. Performed By: #### C MP, ADIFF, ANEU, GFR, CBC ####[address] [address] BUN/Creatinine Ratio 51.0 ratio High 10.0-22.0 [facility] Comment on above: Performed By: #### C MP, ADIFF, ANEU, GFR, CBC ####[address] [address] Calcium [Mass/Vol] 6.6 mg/dL Critically abnormal 8.7-10.4 [facility] Comment on above: Performed By: #### C MP, ADIFF, ANEU, GFR, CBC ####[address] [address] Chloride [Moles/Vol] 116 mmol/L High 98-110 [facility] Comment on above: Performed By: #### C MP, ADIFF, ANEU, GFR, CBC ####[address] [address] CO2 [Moles/Vol] 21 mmol/L Low 22-32 [facility] Comment on above: Performed By: #### C MP, ADIFF, ANEU, GFR, CBC ####[address] [address] Creatinine [Mass/Vol] 1.43 mg/dL High 0.60-1.40 [facility] Comment on above: Result Comment: Test ing performed on Zeppelin analyzer using enzymatic creatinine methodology. Performed By: #### C MP, ADIFF, ANEU, GFR, CBC ####[address] [address] Electrolyte Balance 12.0 mEq/L Normal 4.0-15.0 [facility] Comment on above: Performed By: #### C MP, ADIFF, ANEU, GFR, CBC ####[address] [address] Globulin 4.2 G/dL High 1.5-3.8 [facility] Comment on above: Performed By: #### C MP, ADIFF, ANEU, GFR, CBC ####[address] [address] Glucose [Mass/Vol] 154 mg/dL High 82-115 [facility] Comment on above: Performed By: #### C MP, ADIFF, ANEU, GFR, CBC ####[address] [address] Potassium [Moles/Vol] 4.1 mmol/L Normal 3.5-5.0 [facility] Comment on above: Performed By: #### C MP, ADIFF, ANEU, GFR, CBC ####[address] [address] Sodium [Moles/Vol] 149 mmol/L High 136-145 [facility] Comment on above: Performed By: #### C MP, ADIFF, ANEU, GFR, CBC ####[place] [address] Total Protein 5.4 G/dL Low 5.7-8.2 [facility] Comment on above: Performed By: #### C MP, ADIFF, ANEU, GFR, CBC ####[address] [address] Urea nitrogen [Mass/Vol] 73.0 mg/dL High 8.0-22.0 [facility] Comment on above: Performed By: #### C MP, ADIFF, ANEU, GFR, CBC ####[address] [address] BGon 02-09-2024 Base excess Calc (Bld) [Moles/Vol] -3.6000 mmol/L Normal [facility] Comment on above: Performed By: #### B G ####[address] [address] CO2 [Moles/Vol] 19.5 mmol/L Low 22.0-30.0 [facility] Comment on above: Performed By: #### B G ####[place] [address] HCO3 (Bld) [Moles/Vol] 18.7 mmol/L Low 21.0-29.0 [facility] Comment on above: Performed By: #### B G ####[place] [address] Oxygen (Bld) [Partial pressure] 79.0 mm[Hg] Normal 74.0-108.0 [facility] Comment on above: Performed By: #### B G ####[place] [address] Oxygen saturation in Blood 95.5 % Normal 92.0-96.0 [facility] Comment on above: Performed By: #### B G ####[place] [address] pCO2 25.5 mmHg Low 32.0-46.0 [facility] Comment on above: Performed By: #### B G ####[place] [address] pH (Bld) 7.484 [pH] High 7.380-7.46 0 [facility] Comment on above: Performed By: #### B G ####[place] [address] .Auto Diffon 02-08-2024 Basophil, Absolute 0.0 10 3/mcL Normal 0.0-0.3 [facility] Comment on above: Performed By: #### C BC, ANEU, CMP, GFR, ADIFF ####[place] [id number] Basophils/100 WBC (Bld) 0.3 % Normal 0.0-2.5 [facility] Comment on above: Performed By: #### C BC, ANEU, CMP, GFR, ADIFF ####[place] [address] Eosinophil, Absolute 0.0 10 3/mcL Normal 0.0-0.7 [facility] Comment on above: Performed By: #### C BC, ANEU, CMP, GFR, ADIFF ####[address] [address] Eosinophils/100 WBC (Bld) 0.4 % Normal 0.0-6.0 [facility] Comment on above: Performed By: #### C BC, ANEU, CMP, GFR, ADIFF ####[address] [address] Lymphocyte, Absolute 1.0 10 3/mcL Normal 0.9-4.3 [facility] Comment on above: Performed By: #### C BC, ANEU, CMP, GFR, ADIFF ####[address] [address] Lymphocytes/100 WBC (Bld) 10.2 % Low 20.0-40.0 [facility] Comment on above: Performed By: #### C BC, ANEU, CMP, GFR, ADIFF ####[address] [address] Monocyte, Absolute 0.8 10 3/mcL Normal 0.1-1.4 [facility] Comment on above: Performed By: #### C BC, ANEU, CMP, GFR, ADIFF ####[address] [address] Monocytes/100 WBC (Bld) 8.3 % Normal 2.0-13.0 [facility] Comment on above: Performed By: #### C BC, ANEU, CMP, GFR, ADIFF ####[address] [address] Neutrophils/100 WBC (Bld) 80.8 % High 50.0-75.0 [facility] Comment on above: Performed By: #### C BC, ANEU, CMP, GFR, ADIFF ####[address] [address] .GFRon 02-08-2024 GFR 52 ml/min/1.73sqm Normal [facility] Comment on above: Result Comment: GFR Population mean for , Non- Americans Ages 20-29 = 116 mL/min/1.73 sq.m. Ages 30-39 = 107 mL/min/1.73 sq.m. Ages 40-49 = 99 mL/min/1.73 sq.m. Ages 50-59 = 93 mL/min/1.73 sq.m. Ages 60-69 = 85 mL/min/1.73 sq.m. Ages 70+ = 75 mL/min/1.73 sq.m.Chronic Kidney Disease: Less than 60 mL/min/1.73 square metersEnd Stage Renal Disease: Less than 15 mL/min/1.73 square meters Performed By: #### C BC, ANEU, CMP, GFR, ADIFF ####[place] [address] [place] [address] GFR Non- 43 ml/min/1.73sqm Normal [facility] Comment on above: Result Comment: GFR Population mean for , Non- Americans Ages 20-29 = 116 mL/min/1.73 sq.m. Ages 30-39 = 107 mL/min/1.73 sq.m. Ages 40-49 = 99 mL/min/1.73 sq.m. Ages 50-59 = 93 mL/min/1.73 sq.m. Ages 60-69 = 85 mL/min/1.73 sq.m. Ages 70+ = 75 mL/min/1.73 sq.m.Chronic Kidney Disease: Less than 60 mL/min/1.73 square metersEnd Stage Renal Disease: Less than 15 mL/min/1.73 square meters Performed By: #### C BC, ANEU, CMP, GFR, ADIFF ####[address] [address] .NEUABSon 02-08-2024 Neutrophil, Absolute 7.6 10 3/mcL Normal 2.3-8.1 [facility] Comment on above: Performed By: #### C BC, ANEU, CMP, GFR, ADIFF ####[place] [address] [place] [address] CBCon 02-08-2024 Erythrocyte distribution width (RBC) [Ratio] 13.3 % Normal 11.5-15.5 [facility] Comment on above: Performed By: #### C BC, ANEU, CMP, GFR, ADIFF ####[place] [address] Hematocrit (Bld) [Volume fraction] 29.1 % Low 40.0-52.0 [facility] Comment on above: Performed By: #### C BC, ANEU, CMP, GFR, ADIFF ####[place] [address] Hgb 9.8 G/dL Low 13.0-17.5 [facility] Comment on above: Performed By: #### C BC, ANEU, CMP, GFR, ADIFF ####[place] [address] MCH (RBC) [Entitic mass] 30.6 pg Normal 27.0-33.0 [facility] Comment on above: Performed By: #### C BC, ANEU, CMP, GFR, ADIFF ####[place] [address] MCHC 33.7 G/dL Normal 32.0-36.0 [facility] Comment on above: Performed By: #### C BC, ANEU, CMP, GFR, ADIFF ####[place] [address] MCV (RBC) [Entitic vol] 90.9 fL Normal 81.0-100.0 [facility] Comment on above: Performed By: #### C BC, ANEU, CMP, GFR, ADIFF ####[place] [address] Platelet 536 10 3/mcL High 150-450 [facility] Comment on above: Performed By: #### C BC, ANEU, CMP, GFR, ADIFF ####[place] [address] Platelet mean volume (Bld) [Entitic vol] 9.6 fL Normal 6.4-10.5 [facility] Comment on above: Performed By: #### C BC, ANEU, CMP, GFR, ADIFF ####[place] [address] RBC 3.20 10 6/mcL Low 4.50-6.00 [facility] Comment on above: Performed By: #### C BC, ANEU, CMP, GFR, ADIFF ####[place] [address] WBC 9.4 10 3/mcL Normal 4.5-10.8 [facility] Comment on above: Performed By: #### C BC, ANEU, CMP, GFR, ADIFF ####[place] [address] CMPon 02-08-2024 Albumin Level 1.2 G/dL Low 3.2-4.8 [facility] Comment on above: Performed By: #### C BC, ANEU, CMP, GFR, ADIFF ####[place] [address] Albumin/Globulin [Mass ratio] 0.3 {ratio} Low 0.9-1.6 [facility] Comment on above: Performed By: #### C BC, ANEU, CMP, GFR, ADIFF ####[place] [address] ALP [Catalytic activity/Vol] 112 U/L Normal 38-126 [facility] Comment on above: Performed By: #### C BC, ANEU, CMP, GFR, ADIFF ####[place] [address] ALT [Catalytic activity/Vol] 51 U/L Normal 12-55 [facility] Comment on above: Performed By: #### C BC, ANEU, CMP, GFR, ADIFF ####[place] [address] AST [Catalytic activity/Vol] 71 U/L High 8-34 [facility] Comment on above: Performed By: #### C BC, ANEU, CMP, GFR, ADIFF ####[place] [address] Bili Total 0.30 mg/dL Normal 0.20-1.20 [facility] Comment on above: Result Comment: Use of this assay is not recommended for patients undergoing treatment with eltrombopag due to the potential for falsely elevated results. Performed By: #### C BC, ANEU, CMP, GFR, ADIFF ####[place] [address] BUN/Creatinine Ratio 56.2 ratio High 10.0-22.0 [facility] Comment on above: Performed By: #### C BC, ANEU, CMP, GFR, ADIFF ####[address] [address] Calcium [Mass/Vol] 6.5 mg/dL Critically abnormal 8.7-10.4 [facility] Comment on above: Performed By: #### C BC, ANEU, CMP, GFR, ADIFF ####[address] [address] Chloride [Moles/Vol] 115 mmol/L High 98-110 [facility] Comment on above: Performed By: #### C BC, ANEU, CMP, GFR, ADIFF ####[place] [id number] CO2 [Moles/Vol] 24 mmol/L Normal 22-32 [facility] Comment on above: Performed By: #### C BC, ANEU, CMP, GFR, ADIFF ####[address] [address] Creatinine [Mass/Vol] 1.60 mg/dL High 0.60-1.40 [facility] Comment on above: Result Comment: Test ing performed on Zeppelin analyzer using enzymatic creatinine methodology. Performed By: #### C BC, ANEU, CMP, GFR, ADIFF ####[address] [address] Electrolyte Balance 10.0 mEq/L Normal 4.0-15.0 [facility] Comment on above: Performed By: #### C BC, ANEU, CMP, GFR, ADIFF ####[address] [address] Globulin 4.4 G/dL High 1.5-3.8 [facility] Comment on above: Performed By: #### C BC, ANEU, CMP, GFR, ADIFF ####[address] [address] Glucose [Mass/Vol] 229 mg/dL High 82-115 [facility] Comment on above: Performed By: #### C BC, ANEU, CMP, GFR, ADIFF ####[address] [address] Potassium [Moles/Vol] 4.2 mmol/L Normal 3.5-5.0 [facility] Comment on above: Performed By: #### C BC, ANEU, CMP, GFR, ADIFF ####[address] [address] Sodium [Moles/Vol] 149 mmol/L High 136-145 [facility] Comment on above: Performed By: #### C BC, ANEU, CMP, GFR, ADIFF ####[place] [address] Total Protein 5.6 G/dL Low 5.7-8.2 [facility] Comment on above: Performed By: #### C BC, ANEU, CMP, GFR, ADIFF ####[place] [id number] Urea nitrogen [Mass/Vol] 90.0 mg/dL High 8.0-22.0 [facility] Comment on above: Performed By: #### C BC, ANEU, CMP, GFR, ADIFF ####[place] [id number] CRESPon 02-08-2024 CRESP Normal [facility] .Auto Diffon 02-07-2024 Basophil, Absolute 0.0 10 3/mcL Normal 0.0-0.3 [facility] Comment on above: Performed By: #### A DARRIAN, ADIFF, GFR, CBC, CAION, BMP ####[place] [id number] Basophils/100 WBC (Bld) 0.2 % Normal 0.0-2.5 [facility] Comment on above: Performed By: #### A DARRIAN, ADIFF, GFR, CBC, CAION, BMP ####[address] [address] Eosinophil, Absolute 0.0 10 3/mcL Normal 0.0-0.7 [facility] Comment on above: Performed By: #### A DARRIAN, ADIFF, GFR, CBC, CAION, BMP ####[address] [address] Eosinophils/100 WBC (Bld) 0.2 % Normal 0.0-6.0 [facility] Comment on above: Performed By: #### A DARRIAN, ADIFF, GFR, CBC, CAION, BMP ####[address] [address] Lymphocyte, Absolute 1.0 10 3/mcL Normal 0.9-4.3 [facility] Comment on above: Performed By: #### A DARRIAN, ADIFF, GFR, CBC, CAION, BMP ####[address] [address] Lymphocytes/100 WBC (Bld) 10.0 % Low 20.0-40.0 [facility] Comment on above: Performed By: #### A DARRIAN, ADIFF, GFR, CBC, CAION, BMP ####[address] [address] Monocyte, Absolute 0.9 10 3/mcL Normal 0.1-1.4 [facility] Comment on above: Performed By: #### A DARRIAN, ADIFF, GFR, CBC, CAION, BMP ####[address] [address] Monocytes/100 WBC (Bld) 8.3 % Normal 2.0-13.0 [facility] Comment on above: Performed By: #### A DARRIAN, ADIFF, GFR, CBC, CAION, BMP ####[address] [address] Neutrophils/100 WBC (Bld) 81.3 % High 50.0-75.0 [facility] Comment on above: Performed By: #### A DARRIAN, ADIFF, GFR, CBC, CAION, BMP ####[address] [address] .GFRon 02-07-2024 GFR 47 ml/min/1.73sqm Normal [facility] Comment on above: Result Comment: GFR Population mean for , Non- Americans Ages 20-29 = 116 mL/min/1.73 sq.m. Ages 30-39 = 107 mL/min/1.73 sq.m. Ages 40-49 = 99 mL/min/1.73 sq.m. Ages 50-59 = 93 mL/min/1.73 sq.m. Ages 60-69 = 85 mL/min/1.73 sq.m. Ages 70+ = 75 mL/min/1.73 sq.m.Chronic Kidney Disease: Less than 60 mL/min/1.73 square metersEnd Stage Renal Disease: Less than 15 mL/min/1.73 square meters Performed By: #### A DARRIAN, ADIFF, GFR, CBC, CAION, BMP ####[address] [address] GFR Non- 39 ml/min/1.73sqm [facility] Comment on above: Result Comment: GFR Population mean for , Non- Americans Ages 20-29 = 116 mL/min/1.73 sq.m. Ages 30-39 = 107 mL/min/1.73 sq.m. Ages 40-49 = 99 mL/min/1.73 sq.m. Ages 50-59 = 93 mL/min/1.73 sq.m. Ages 60-69 = 85 mL/min/1.73 sq.m. Ages 70+ = 75 mL/min/1.73 sq.m.Chronic Kidney Disease: Less than 60 mL/min/1.73 square metersEnd Stage Renal Disease: Less than 15 mL/min/1.73 square meters Performed By: #### A DARRIAN, ADIFF, GFR, CBC, CAION, BMP ####[address] [address] .NEUABSon 02-07-2024 Neutrophil, Absolute 8.4 10 3/mcL High 2.3-8.1 [facility] Comment on above: Performed By: #### A DARRIAN, ADIFF, GFR, CBC, CAION, BMP ####[address] [address] BMPon 02-07-2024 BUN/Creatinine Ratio 48.9 ratio High 10.0-22.0 [facility] Comment on above: Order Comment: vrb- called critical CA to CLAUDIA Sharif 02/07/2024 04:38:05 EST SAS Performed By: #### A DARRIAN, ADIFF, GFR, CBC, CAION, BMP ####[address] [address] Chloride [Moles/Vol] 114 mmol/L High 98-110 [facility] Comment on above: Order Comment: vrb- called critical CA to RN Nikki Sharif 02/07/2024 04:38:05 EST SAS Performed By: #### A DARRIAN, ADIFF, GFR, CBC, CAION, BMP ####[address] [address] CO2 [Moles/Vol] 23 mmol/L Normal 22-32 [facility] Comment on above: Order Comment: vrb- called critical CA to RN Nikki Sharif 02/07/2024 04:38:05 EST SAS Performed By: #### A DARRIAN, ADIFF, GFR, CBC, CAION, BMP ####[address] [address] Creatinine [Mass/Vol] 1.74 mg/dL High 0.60-1.40 [facility] Comment on above: Order Comment: vrb- called critical CA to RN Nikki Sharif 02/07/2024 04:38:05 EST SAS Result Comment: Test ing performed on Zeppelin analyzer using enzymatic creatinine methodology. Performed By: #### A DARRIAN, ADIFF, GFR, CBC, CAION, BMP ####[address] [address] Electrolyte Balance 11.0 mEq/L Normal 4.0-15.0 [facility] Comment on above: Order Comment: vrb- called critical CA to CLAUDIA Sharif 02/07/2024 04:38:05 EST SAS Performed By: #### A DARRIAN, ADIFF, GFR, CBC, CAION, BMP ####[address] [address] Glucose [Mass/Vol] 178 mg/dL High 82-115 [facility] Comment on above: Order Comment: vrb- called critical CA to RN Nikki Sharif 02/07/2024 04:38:05 EST SAS Performed By: #### A DARRIAN, ADIFF, GFR, CBC, CAION, BMP ####[address] [address] Potassium [Moles/Vol] 4.0 mmol/L Normal 3.5-5.0 [facility] Comment on above: Order Comment: vrb- called critical CA to CLAUDIA Sharif 02/07/2024 04:38:05 EST SAS Performed By: #### A DARRIAN, ADIFF, GFR, CBC, CAION, BMP ####[address] [address] Sodium [Moles/Vol] 148 mmol/L High 136-145 [facility] Comment on above: Order Comment: vrb- called critical CA to CLAUDIA Sharif 02/07/2024 04:38:05 EST SAS Performed By: #### A DARRIAN, ADIFF, GFR, CBC, CAION, BMP ####[place] [address] Urea nitrogen [Mass/Vol] 85.0 mg/dL High 8.0-22.0 [facility] Comment on above: Order Comment: vrb- called critical CA to CLAUDIA Sharif 02/07/2024 04:38:05 EST SAS Performed By: #### A DARRIAN, ADIFF, GFR, CBC, CAION, BMP ####[place] [address] Calcium [Mass/Vol] 6.6 mg/dL Critically abnormal 8.7-10.4 [facility] Comment on above: Order Comment: vrb- called critical CA to CLAUDIA Sharif 02/07/2024 04:38:05 EST SAS Performed By: #### A DARRIAN, ADIFF, GFR, CBC, CAION, BMP ####[place] [address] CAIONon 02-07-2024 Calcium Ionized 0.95 mmol/L Low 1.12-1.32 [facility] Comment on above: Performed By: #### A DARRIAN, ADIFF, GFR, CBC, CAION, BMP ####[place] [address] CBCon 02-07-2024 Erythrocyte distribution width (RBC) [Ratio] 13.2 % Normal 11.5-15.5 [facility] Comment on above: Performed By: #### A DARRIAN, ADIFF, GFR, CBC, CAION, BMP ####[place] [address] Hematocrit (Bld) [Volume fraction] 28.6 % Low 40.0-52.0 [facility] Comment on above: Performed By: #### A DARRIAN, ADIFF, GFR, CBC, CAION, BMP ####[place] [address] Hgb 9.8 G/dL Low 13.0-17.5 [facility] Comment on above: Performed By: #### A DARRIAN, ADIFF, GFR, CBC, CAION, BMP ####[place] [address] MCH (RBC) [Entitic mass] 31.2 pg Normal 27.0-33.0 [facility] Comment on above: Performed By: #### A DARRIAN, ADIFF, GFR, CBC, CAION, BMP ####[place] [address] MCHC 34.3 G/dL Normal 32.0-36.0 [facility] Comment on above: Performed By: #### A DARRIAN, ADIFF, GFR, CBC, CAION, BMP ####[place] [address] MCV (RBC) [Entitic vol] 91.2 fL Normal 81.0-100.0 [facility] Comment on above: Performed By: #### A DARRIAN, ADIFF, GFR, CBC, CAION, BMP ####[place] [address] Platelet 515 10 3/mcL High 150-450 [facility] Comment on above: Performed By: #### A DARRIAN, ADIFF, GFR, CBC, CAION, BMP ####[place] [address] Platelet mean volume (Bld) [Entitic vol] 9.6 fL Normal 6.4-10.5 [facility] Comment on above: Performed By: #### A DARRIAN, ADIFF, GFR, CBC, CAION, BMP ####[place] [address] [place] [address] RBC 3.14 10 6/mcL Low 4.50-6.00 [facility] Comment on above: Performed By: #### A DARRIAN, ADIFF, GFR, CBC, CAION, BMP ####[place] [address] WBC 10.3 10 3/mcL Normal 4.5-10.8 [facility] Comment on above: Performed By: #### A DARRIAN, ADIFF, GFR, CBC, CAION, BMP ####[place] [address] [place] [address] LABORATORYOrdered By: Mary Montez on 02-07-2024 Blood Glucose Testing Reason Routine (02/07/24 3:30 PM) [facility] Glucose [Mass/Vol] 176 mg/dL High 82 - 115 mg/dL [facility] LABORATORYOrdered By: Suzanna Krishnamurthy on 02-07-2024 Blood Glucose Testing Reason Routine (02/07/24 12:00 PM) [facility] Glucose [Mass/Vol] 155 mg/dL High 82 - 115 mg/dL [facility] Blood Glucose Testing Reason Routine (02/07/24 8:00 AM) [facility] Glucose [Mass/Vol] 151 mg/dL High 82 - 115 mg/dL [facility] LABORATORYOrdered By: SYSTEM SYSTEM on 02-07-2024 Basophils (Bld) [#/Vol] 0.0 103/mcL Normal 0.0 - 0.3 10^3/mcL AH Workflow SS Basophils/100 WBC (Bld) 0.2 % Normal 0.0 - 2.5 % AH Workflow SS Chloride [Moles/Vol] 114 mmol/L High 98 - 11 0 mEq/L AH ADM SS CO2 [Moles/Vol] 23 mmol/L Normal 22 - 32 mEq/L ADM SS Creatinine [Mass/Vol] 1.74 mg/dL High 0.60 - 1.40 mg/dL ADM SS Comment on above: Interpretive Data: T esting performed on Zeppelin analyzer using enzymatic creatinine methodology. Electrolyte Balance 11.0 mEq/L Normal 4.0 - 15 .0 mEq/L ADM SS Eosinophils (Bld) [#/Vol] 0.0 103/mcL Normal 0.0 - 0.7 10^3/mcL Workflow SS Eosinophils/100 WBC (Bld) 0.2 % Normal 0.0 - 6.0 % Workflow SS Erythrocyte distribution width (RBC) [Ratio] 13.2 % Normal 11.5 - 15.5 % Workflow SS GFR/1.73 sq M.predicted among blacks MDRD (S/P/Bld) [Vol rate/Area] 47 ml/min/1.73sqm Invalid Interpretation Code ADM SS Comment on above: Interpretive Data: GFR Population mean for , Non- Americans Ages 20-29 = 116 mL/min/1.73 sq.m. Ages 30-39 = 107 mL/min/1.73 sq.m. Ages 40-49 = 99 mL/min/1.73 sq.m. Ages 50-59 = 93 mL/min/1.73 sq.m. Ages 60-69 = 85 mL/min/1.73 sq.m. Ages 70+ = 75 mL/min/1.73 sq.m. Chronic Kidney Disease: Less than 60 mL/min/1.73 square meters End Stage Renal Disease: Less than 15 mL/min/1.73 square meters GFR/1.73 sq M.predicted among non-blacks MDRD (S/P/Bld) [Vol rate/Area] 39 ml/min/1.73sqm Invalid Interpretation Code ADM SS Comment on above: Interpretive Data: GFR Population mean for , Non- Americans Ages 20-29 = 116 mL/min/1.73 sq.m. Ages 30-39 = 107 mL/min/1.73 sq.m. Ages 40-49 = 99 mL/min/1.73 sq.m. Ages 50-59 = 93 mL/min/1.73 sq.m. Ages 60-69 = 85 mL/min/1.73 sq.m. Ages 70+ = 75 mL/min/1.73 sq.m. Chronic Kidney Disease: Less than 60 mL/min/1.73 square meters End Stage Renal Disease: Less than 15 mL/min/1.73 square meters Glucose [Mass/Vol] 178 mg/dL High 82 - 115 mg/dL AH ADM SS Hematocrit (Bld) [Volume fraction] 28.6 % Low 40.0 - 52.0 % AH Workflow SS Hemoglobin (Bld) [Mass/Vol] 9.8 G/dL Low 13.0 - 17.5 G/dL AH Workflow SS Lymphocytes (Bld) [#/Vol] 1.0 103/mcL Normal 0.9 - 4.3 10^3/mcL AH Workflow SS Lymphocytes/100 WBC (Bld) 10.0 % Low 20.0 - 40.0 % AH Workflow SS MCH (RBC) [Entitic mass] 31.2 pg Normal 27.0 - 33.0 pg AH Workflow SS MCHC 34.3 G/dL Normal 32.0 - 36.0 G/dL AH Workflow SS MCV (RBC) [Entitic vol] 91.2 fL Normal 81.0 - 100.0 fL AH Workflow SS Monocytes (Bld) [#/Vol] 0.9 103/mcL Normal 0.1 - 1.4 10^3/mcL AH Workflow SS Monocytes/100 WBC (Bld) 8.3 % Normal 2.0 - 13.0 % AH Workflow SS Neutrophils (Bld) [#/Vol] 8.4 103/mcL High 2.3 - 8.1 10^3/mcL AH Workflow SS Neutrophils/100 WBC (Bld) 81.3 % High 50.0 - 75.0 % AH Workflow SS Platelet mean volume (Bld) [Entitic vol] 9.6 fL Normal 6.4 - 10.5 fL AH Workflow SS Platelets (Bld) [#/Vol] 515 103/mcL High 150 - 450 10^3/mcL AH Workflow SS Potassium [Moles/Vol] 4.0 mmol/L Normal 3.5 - 5.0 mEq/L AH ADM SS RBC (Bld) [#/Vol] 3.14 106/mcL Low 4.50 - 6.00 10^6/mcL AH Workflow SS Sodium [Moles/Vol] 148 mmol/L High 136 - 145 mEq/L ADM SS Urea nitrogen [Mass/Vol] 85.0 mg/dL High 8.0 - 22.0 mg/dL ADM SS Urea nitrogen/Creatinine [Mass ratio] 48.9 ratio High 10.0 - 22.0 ratio ADM SS WBC (Bld) [#/Vol] 10.3 103/mcL Normal 4.5 - 10.8 10^3/mcL Workflow SS LABORATORYOrdered By: Heydi Montez on 02-07-2024 Calcium [Mass/Vol] 6.6 mg/dL Invalid Interpretation Code 8.7 - 10.4 mg/dL ADM SS LABORATORYOrdered By: Will Frost on 02-07-2024 Calcium Ionized 0.95 mmol/L Low 1.12 - 1.32 mmol/L Main Rapid Comm SS XR CHEST 1 VIEWon 02-07-2024 XR CHEST [address] [facility] XR ENTERIC TUBE PLACEMENTon 02-07-2024 XR ENTERIC TUBE PLACEMENT Normal [facility] .Auto Diffon 02-06-2024 Basophil, Absolute 0.0 10 3/mcL Normal 0.0-0.3 [facility] Comment on above: Performed By: #### A DARRIAN, ADIFF, GFR, CBC, BMP, VBG ####[address] [id number] Basophils/100 WBC (Bld) 0.4 % Normal 0.0-2.5 [facility] Comment on above: Performed By: #### A DARRIAN, ADIFF, GFR, CBC, BMP, VBG ####[address] [address] Eosinophil, Absolute 0.0 10 3/mcL Normal 0.0-0.7 [facility] Comment on above: Performed By: #### A DARRIAN, ADIFF, GFR, CBC, BMP, VBG ####[address] [address] Eosinophils/100 WBC (Bld) 0.1 % Normal 0.0-6.0 [facility] Comment on above: Performed By: #### A DARRIAN, ADIFF, GFR, CBC, BMP, VBG ####[address] [address] Lymphocyte, Absolute 0.6 10 3/mcL Low 0.9-4.3 [facility] Comment on above: Performed By: #### A DARRIAN, ADIFF, GFR, CBC, BMP, VBG ####[address] [address] Lymphocytes/100 WBC (Bld) 6.3 % Low 20.0-40.0 [facility] Comment on above: Performed By: #### A DARRIAN, ADIFF, GFR, CBC, BMP, VBG ####[address] [address] Monocyte, Absolute 0.9 10 3/mcL Normal 0.1-1.4 [facility] Comment on above: Performed By: #### A DARRIAN, ADIFF, GFR, CBC, BMP, VBG ####[address] [address] Monocytes/100 WBC (Bld) 9.0 % Normal 2.0-13.0 [facility] Comment on above: Performed By: #### A DARRIAN, ADIFF, GFR, CBC, BMP, VBG ####[address] [address] Neutrophils/100 WBC (Bld) 84.2 % High 50.0-75.0 [facility] Comment on above: Performed By: #### A DARRIAN, ADIFF, GFR, CBC, BMP, VBG ####[address] [address] .GFRon 02-06-2024 GFR 53 ml/min/1.73sqm Normal [facility] Comment on above: Result Comment: GFR Population mean for , Non- Americans Ages 20-29 = 116 mL/min/1.73 sq.m. Ages 30-39 = 107 mL/min/1.73 sq.m. Ages 40-49 = 99 mL/min/1.73 sq.m. Ages 50-59 = 93 mL/min/1.73 sq.m. Ages 60-69 = 85 mL/min/1.73 sq.m. Ages 70+ = 75 mL/min/1.73 sq.m.Chronic Kidney Disease: Less than 60 mL/min/1.73 square metersEnd Stage Renal Disease: Less than 15 mL/min/1.73 square meters Performed By: #### A DARRIAN, ADIFF, GFR, CBC, BMP, VBG ####[place] [address] GFR Non- 44 ml/min/1.73sqm Normal [facility] Comment on above: Result Comment: GFR Population mean for , Non- Americans Ages 20-29 = 116 mL/min/1.73 sq.m. Ages 30-39 = 107 mL/min/1.73 sq.m. Ages 40-49 = 99 mL/min/1.73 sq.m. Ages 50-59 = 93 mL/min/1.73 sq.m. Ages 60-69 = 85 mL/min/1.73 sq.m. Ages 70+ = 75 mL/min/1.73 sq.m.Chronic Kidney Disease: Less than 60 mL/min/1.73 square metersEnd Stage Renal Disease: Less than 15 mL/min/1.73 square meters Performed By: #### A DARRIAN, ADIFF, GFR, CBC, BMP, VBG ####[place] [address] .NEUABSon 02-06-2024 Neutrophil, Absolute 8.4 10 3/mcL High 2.3-8.1 [facility] Comment on above: Performed By: #### A DARRIAN, ADIFF, GFR, CBC, BMP, VBG ####[place] [address] BMPon 02-06-2024 BUN/Creatinine Ratio 50.0 ratio High 10.0-22.0 [facility] Comment on above: Performed By: #### A DARRIAN, ADIFF, GFR, CBC, BMP, VBG ####[place] [address] Calcium [Mass/Vol] 6.6 mg/dL Critically abnormal 8.7-10.4 [facility] Comment on above: Performed By: #### A DARRIAN, ADIFF, GFR, CBC, BMP, VBG ####[place] [address] Chloride [Moles/Vol] 112 mmol/L High 98-110 [facility] Comment on above: Performed By: #### A DARRIAN, ADIFF, GFR, CBC, BMP, VBG ####[address] [address] CO2 [Moles/Vol] 26 mmol/L Normal 22-32 [facility] Comment on above: Performed By: #### A DARRIAN, ADIFF, GFR, CBC, BMP, VBG ####[address] [address] Creatinine [Mass/Vol] 1.56 mg/dL High 0.60-1.40 [facility] Comment on above: Result Comment: Test ing performed on Zeppelin analyzer using enzymatic creatinine methodology. Performed By: #### A DARRIAN, ADIFF, GFR, CBC, BMP, VBG ####[address] [address] Electrolyte Balance 11.0 mEq/L Normal 4.0-15.0 [facility] Comment on above: Performed By: #### A DARRIAN, ADIFF, GFR, CBC, BMP, VBG ####[address] [address] Glucose [Mass/Vol] 183 mg/dL High 82-115 [facility] Comment on above: Performed By: #### A DARRIAN, ADIFF, GFR, CBC, BMP, VBG ####[address] [address] Potassium [Moles/Vol] 4.2 mmol/L Normal 3.5-5.0 [facility] Comment on above: Performed By: #### A DARRIAN, ADIFF, GFR, CBC, BMP, VBG ####[address] [address] Sodium [Moles/Vol] 149 mmol/L High 136-145 [facility] Comment on above: Performed By: #### A DARRIAN, ADIFF, GFR, CBC, BMP, VBG ####[address] [address] Urea nitrogen [Mass/Vol] 78.0 mg/dL High 8.0-22.0 [facility] Comment on above: Performed By: #### A DARRIAN, ADIFF, GFR, CBC, BMP, VBG ####[place] [id number] CBCon 02-06-2024 Erythrocyte distribution width (RBC) [Ratio] 13.6 % Normal 11.5-15.5 [facility] Comment on above: Performed By: #### A DARRIAN, ADIFF, GFR, CBC, BMP, VBG ####[place] [address] Hematocrit (Bld) [Volume fraction] 30.9 % Low 40.0-52.0 [facility] Comment on above: Performed By: #### A DARRIAN, ADIFF, GFR, CBC, BMP, VBG ####[place] [address] Hgb 10.6 G/dL Low 13.0-17.5 [facility] Comment on above: Performed By: #### A DARRIAN, ADIFF, GFR, CBC, BMP, VBG ####[place] [address] MCH (RBC) [Entitic mass] 31.2 pg Normal 27.0-33.0 [facility] Comment on above: Performed By: #### A DARRIAN, ADIFF, GFR, CBC, BMP, VBG ####[place] [address] MCHC 34.3 G/dL Normal 32.0-36.0 [facility] Comment on above: Performed By: #### A DARRIAN, ADIFF, GFR, CBC, BMP, VBG ####[place] [address] MCV (RBC) [Entitic vol] 91.0 fL Normal 81.0-100.0 [facility] Comment on above: Performed By: #### A DARRIAN, ADIFF, GFR, CBC, BMP, VBG ####[place] [address] Platelet 540 10 3/mcL High 150-450 [facility] Comment on above: Performed By: #### A DARRIAN, ADIFF, GFR, CBC, BMP, VBG ####[place] [address] [place] [address] Platelet mean volume (Bld) [Entitic vol] 9.9 fL Normal 6.4-10.5 [facility] Comment on above: Performed By: #### A DARRIAN, ADIFF, GFR, CBC, BMP, VBG ####[place] [address] [place] [address] RBC 3.40 10 6/mcL Low 4.50-6.00 [facility] Comment on above: Performed By: #### A DARRIAN, ADIFF, GFR, CBC, BMP, VBG ####[place] [address] [place] [address] WBC 10.0 10 3/mcL Normal 4.5-10.8 [facility] Comment on above: Performed By: #### A DARRIAN, ADIFF, GFR, CBC, BMP, VBG ####[place] [address] LABORATORYOrdered By: Reina Schneider on 02-06-2024 Blood Glucose Interventions Administered agent to decrease blood sugar (02/06/24 11:43 PM) [facility] LABORATORYOrdered By: Laina on 02-06-2024 Appearance (U) Turbid *ABN* (02/06/24 6:51 AM) Invalid Interpretation Code Clear AH Auto Urine SS Bacteria LM.HPF (Urine sed) [#/Area] Trace /HPF Invalid Interpretation Code Negative AH Auto Urine SS Bilirubin Ql (U) Negative (02/06/24 6:51 AM) Normal Neg-Trace AH Auto Urine SS Color (U) Yellow (02/06/24 6:51 AM) Normal AH Auto Urine SS Glucose Test strip (U) [Mass/Vol] Negative Normal Negative AH Auto Urine SS Hemoglobin Auto test strip (U) [Mass/Vol] Large *ABN* (02/06/24 6:51 AM) Invalid Interpretation Code Neg-Trace AH Auto Urine SS Ketones Ql (U) Negative Normal Neg-Trace AH Auto Ur ine SS UA Coarse Granular Casts Rare /LPF Invalid Interpretation Code AH Auto Urine SS UA Leuk Est Small *ABN* (02/06/24 6:51 AM) Invalid Interpretation Code Negative AH Auto Urine SS UA Nitrite Negative (02/06/24 6:51 AM) Normal Negative AH Auto Urine SS UA pH 5.5 (02/06/24 6:51 AM) Normal 5.0 - 8.0 AH Auto Urine SS UA Protein 100 mg/dL Invalid Interpretation Code Negative AH Auto Urine SS UA RBC LOADED /HPF Invalid Interpretation Code 0-2 AH Auto Urine SS UA Renal Epithelial 3-5 /HPF Normal AH Au to Urine SS UA Spec Grav 1.015 (02/06/24 6:51 AM) Normal 1.006-1.02 9 AH Auto Urine SS UA Specimen Type Delacruz Catheter (02/06/24 6:51 AM) Normal AH Auto Urine SS UA Squam Epithelial 3-5 /HPF Normal 0-20 AH Au to Urine SS UA Urobilinogen 0.2 E.U./dL Normal 0.2-1.0 AH Auto Urine SS WBC LM.HPF (Urine sed) [#/Area] 5-10 /HPF Invalid Interpretation Code 0-5 AH Auto Urine SS LABORATORYOrdered By: SYSTEM SYSTEM on 02-06-2024 Basophils (Bld) [#/Vol] 0.0 103/mcL Normal 0.0 - 0.3 10^3/mcL AH Workflow SS Basophils/100 WBC (Bld) 0.4 % Normal 0.0 - 2.5 % AH Workflow SS Calcium [Mass/Vol] 6.6 mg/dL Invalid Interpretation Code 8.7 - 10.4 mg/dL AH ADM SS Chloride [Moles/Vol] 112 mmol/L High 98 - 11 0 mEq/L AH ADM SS CO2 [Moles/Vol] 26 mmol/L Normal 22 - 32 mEq/L AH ADM SS Creatinine [Mass/Vol] 1.56 mg/dL High 0.60 - 1.40 mg/dL AH ADM SS Comment on above: Interpretive Data: T esting performed on Zeppelin analyzer using enzymatic creatinine methodology. Electrolyte Balance 11.0 mEq/L Normal 4.0 - 15 .0 mEq/L AH ADM SS Eosinophils (Bld) [#/Vol] 0.0 103/mcL Normal 0.0 - 0.7 10^3/mcL AH Workflow SS Eosinophils/100 WBC (Bld) 0.1 % Normal 0.0 - 6.0 % AH Workflow SS Erythrocyte distribution width (RBC) [Ratio] 13.6 % Normal 11.5 - 15.5 % Workflow SS GFR/1.73 sq M.predicted among blacks MDRD (S/P/Bld) [Vol rate/Area] 53 ml/min/1.73sqm Invalid Interpretation Code [facility] Comment on above: Interpretive Data: GFR Population mean for , Non- Americans Ages 20-29 = 116 mL/min/1.73 sq.m. Ages 30-39 = 107 mL/min/1.73 sq.m. Ages 40-49 = 99 mL/min/1.73 sq.m. Ages 50-59 = 93 mL/min/1.73 sq.m. Ages 60-69 = 85 mL/min/1.73 sq.m. Ages 70+ = 75 mL/min/1.73 sq.m. Chronic Kidney Disease: Less than 60 mL/min/1.73 square meters End Stage Renal Disease: Less than 15 mL/min/1.73 square meters GFR/1.73 sq M.predicted among non-blacks MDRD (S/P/Bld) [Vol rate/Area] 44 ml/min/1.73sqm Invalid Interpretation Code [facility] Comment on above: Interpretive Data: GFR Population mean for , Non- Americans Ages 20-29 = 116 mL/min/1.73 sq.m. Ages 30-39 = 107 mL/min/1.73 sq.m. Ages 40-49 = 99 mL/min/1.73 sq.m. Ages 50-59 = 93 mL/min/1.73 sq.m. Ages 60-69 = 85 mL/min/1.73 sq.m. Ages 70+ = 75 mL/min/1.73 sq.m. Chronic Kidney Disease: Less than 60 mL/min/1.73 square meters End Stage Renal Disease: Less than 15 mL/min/1.73 square meters Glucose [Mass/Vol] 183 mg/dL High 82 - 115 mg/dL ADM Hematocrit (Bld) [Volume fraction] 30.9 % Low 40.0 - 52.0 % Workflow SS Hemoglobin (Bld) [Mass/Vol] 10.6 G/dL Low 13.0 - 17.5 G/dL Workflow SS Lymphocytes (Bld) [#/Vol] 0.6 103/mcL Low 0.9 - 4.3 10^3/mcL AH Workflow SS Lymphocytes/100 WBC (Bld) 6.3 % Low 20.0 - 40.0 % AH Workflow SS MCH (RBC) [Entitic mass] 31.2 pg Normal 27.0 - 33.0 pg AH Workflow SS MCHC 34.3 G/dL Normal 32.0 - 36.0 G/dL AH Workflow SS MCV (RBC) [Entitic vol] 91.0 fL Normal 81.0 - 100.0 fL AH Workflow SS Monocytes (Bld) [#/Vol] 0.9 103/mcL Normal 0.1 - 1.4 10^3/mcL AH Workflow SS Monocytes/100 WBC (Bld) 9.0 % Normal 2.0 - 13.0 % AH Workflow SS Neutrophils (Bld) [#/Vol] 8.4 103/mcL High 2.3 - 8.1 10^3/mcL AH Workflow SS Neutrophils/100 WBC (Bld) 84.2 % High 50.0 - 75.0 % AH Workflow SS Platelet mean volume (Bld) [Entitic vol] 9.9 fL Normal 6.4 - 10.5 fL AH Workflow SS Platelets (Bld) [#/Vol] 540 103/mcL High 150 - 450 10^3/mcL AH Workflow SS Potassium [Moles/Vol] 4.2 mmol/L Normal 3.5 - 5.0 mEq/L AH ADM SS RBC (Bld) [#/Vol] 3.40 106/mcL Low 4.50 - 6.00 10^6/mcL AH Workflow SS Sodium [Moles/Vol] 149 mmol/L High 136 - 145 mEq/L AH ADM SS Urea nitrogen [Mass/Vol] 78.0 mg/dL High 8.0 - 22.0 mg/dL AH ADM SS Urea nitrogen/Creatinine [Mass ratio] 50.0 ratio High 10.0 - 22.0 ratio AH ADM SS WBC (Bld) [#/Vol] 10.0 103/mcL Normal 4.5 - 10.8 10^3/mcL AH Workflow SS LABORATORYOrdered By: Mirella Jean on 02-06-2024 BE Venous 0.6 mmol/L Normal -3.0 - 3.0 mmol/L AH Main Rapid Comm SS CO2 [Moles/Vol] 23.7 mmol/L Normal 22.0 - 32.0 mmol/L Main Rapid Comm SS HCO3 (Bld) [Moles/Vol] 22.8 mmol/L Normal 21.0 - 30.0 mmol/L AH Main Rapid Comm SS pCO2 Manav 29.0 mm[Hg] Low 41.0 - 51.0 mm Hg AH Main Rapid Comm SS pH (Bld) 7.514 [pH] High 7.380 - 7.460 AH Main Rapid Comm SS pO2 Manav 215.8 mm[Hg] High 35.0 - 40.0 mm Hg AH Main Rapid Comm SS Laboratory - Microbiology an d Antimicrobial susceptibilityOrdered By: [facility] on 02-06-2024 Bacteria identified Cx Nom (Bld) Culture has been received in lab and is no growth to date. Culture will be held for four weeks. [facility] No Panel InformationOrdered By: Mateo Puente on 02-06-2024 Culture Respiratory with Gram Stain Negative for respiratory pathogens at 24 hours. [facility] Comment on above: Requests for Mycopla sma, Legionella, Fungi, Mycobacteria, Chlamydia, and Viruses require ordering of those individual tests. GS Rare Epithelial cell s Rare Gram Positive Cocci [facility] Comment on above: Requests for Mycopla sma, Legionella, Fungi, Mycobacteria, Chlamydia, and Viruses require ordering of those individual tests. UAon 02-06-2024 Color (U) Yellow Normal [facility] Comment on above: Performed By: #### U AMIC, UA ####[place] [address] Glucose (U) [Mass/Vol] Negative Normal Negative [facility] Comment on above: Performed By: #### U AMIC, UA ####[place] [address] [place] [address] Ketones Ql (U) Negative Normal Neg-Trace [facility] Comment on above: Performed By: #### U AMIC, UA ####[place] [address] [place] [address] UA Appear Turbid Abnormal Clear [facility] Comment on above: Performed By: #### U AMIC, UA ####[place] [address] [place] [address] UA Blood Large Abnormal Neg-Trace [facility] Comment on above: Performed By: #### U AMIC, UA ####[place] [address] UA Leuk Est Small Abnormal Negative [facility] Comment on above: Performed By: #### U AMIC, UA ####[facility] [place] [address] UA Nitrite Negative Normal Negative [facility] Comment on above: Performed By: #### U AMIC, UA ####[place] [address] UA pH 5.5 Normal 5.0 - 8.0 [facility] Comment on above: Performed By: #### U AMIC, UA ####[place] [address] UA Protein 100 mg/dL Abnormal Negative [facility] Comment on above: Performed By: #### U AMIC, UA ####[place] [address] UA Spec Grav 1.015 Normal 1.006-1.02 9 [facility] Comment on above: Performed By: #### U AMIC, UA ####[place] [address] UA Specimen Type Delacruz Catheter Normal [facility] Comment on above: Performed By: #### U AMIC, UA ####[place] [address] UA Urobilinogen 0.2 E.U./dL Normal 0.2-1.0 [facility] Comment on above: Performed By: #### U AMIC, UA ####[place] [address] Urobilinogen (U) [Mass/Vol] Negative Normal Neg-Trace [facility] Comment on above: Performed By: #### U AMIC, UA ####[place] [address] UAMICon 02-06-2024 UA Bacteria Trace Abnormal Negative [facility] Comment on above: Performed By: #### U AMIC, UA ####[place] [id number] UA Coarse Granular Casts Rare Abnormal [facility] Comment on above: Performed By: #### U AMIC, UA ####[place] [address] UA RBC LOADED Abnormal 0-2 [facility] Comment on above: Performed By: #### U AMIC, UA ####[place] [address] UA Renal Epithelial 3-5 Normal [facility] Comment on above: Performed By: #### U AMIC, UA ####[facility] [place] [address] UA Squam Epithelial 3-5 Normal 0-20 [facility] Comment on above: Performed By: #### U AMIC, UA ####[place] [address] UA WBC 5-10 Abnormal 0-5 [facility] Comment on above: Performed By: #### U AMIC, UA ####[place] [address] VBGon 02-06-2024 BE Venous 0.6 mmol/L Normal -3.0-3.0 [facility] Comment on above: Performed By: #### A DARRIAN, ADIFF, GFR, CBC, BMP, VBG ####[place] [address] CO2 [Moles/Vol] 23.7 mmol/L Normal 22.0-32.0 [facility] Comment on above: Performed By: #### A DARRIAN, ADIFF, GFR, CBC, BMP, VBG ####[place] [address] HCO3 (Bld) [Moles/Vol] 22.8 mmol/L Normal 21.0-30.0 [facility] Comment on above: Performed By: #### A DARRIAN, ADIFF, GFR, CBC, BMP, VBG ####[place] [address] Oxygen saturation in Blood 99.5 % High 70.0-75.0 [facility] Comment on above: Performed By: #### A DARRIAN, ADIFF, GFR, CBC, BMP, VBG ####[address] [address] pCO2 Manav 29.0 mmHg Low 41.0-51.0 [facility] Comment on above: Performed By: #### A DARRIAN, ADIFF, GFR, CBC, BMP, VBG ####[address] [address] pH Venous 7.514 High 7.380-7.46 0 [facility] Comment on above: Performed By: #### A DARRIAN, ADIFF, GFR, CBC, BMP, VBG ####[address] [address] pO2 Manav 215.8 mmHg High 35.0-40.0 [facility] Comment on above: Performed By: #### A DARRIAN, ADIFF, GFR, CBC, BMP, VBG ####[place] [address] XR CHEST 1 VIEWon 02-06-2024 XR CHEST 1 VIEW Normal [facility] .Auto Diffon 02-05-2024 Basophil, Absolute 0.1 10 3/mcL Normal 0.0-0.3 [facility] Comment on above: Performed By: #### A DARRIAN, GFR, ADIFF, CBC, MG, RFP, CAION ####[address] [address] Basophils/100 WBC (Bld) 0.7 % Normal 0.0-2.5 [facility] Comment on above: Performed By: #### A DARRIAN, GFR, ADIFF, CBC, MG, RFP, CAION ####[address] [address] Eosinophil, Absolute 0.0 10 3/mcL Normal 0.0-0.7 [facility] Comment on above: Performed By: #### A DARRIAN, GFR, ADIFF, CBC, MG, RFP, CAION ####[address] [address] Eosinophils/100 WBC (Bld) 0.0 % Normal 0.0-6.0 [facility] Comment on above: Performed By: #### A DARRIAN, GFR, ADIFF, CBC, MG, RFP, CAION ####[address] [address] Lymphocyte, Absolute 0.4 10 3/mcL Low 0.9-4.3 [facility] Comment on above: Performed By: #### A DARRIAN, GFR, ADIFF, CBC, MG, RFP, CAION ####[address] [address] Lymphocytes/100 WBC (Bld) 5.1 % Low 20.0-40.0 [facility] Comment on above: Performed By: #### A DARRIAN, GFR, ADIFF, CBC, MG, RFP, CAION ####[address] [address] Monocyte, Absolute 0.7 10 3/mcL Normal 0.1-1.4 [facility] Comment on above: Performed By: #### A DARRIAN, GFR, ADIFF, CBC, MG, RFP, CAION ####[address] [address] Monocytes/100 WBC (Bld) 8.6 % Normal 2.0-13.0 [facility] Comment on above: Performed By: #### A DARRIAN, GFR, ADIFF, CBC, MG, RFP, CAION ####[address] [address] Neutrophils/100 WBC (Bld) 85.6 % High 50.0-75.0 [facility] Comment on above: Performed By: #### A DARRIAN, GFR, ADIFF, CBC, MG, RFP, CAION ####[address] [address] .GFRon 02-05-2024 GFR Non- 40 ml/min/1.73sqm Normal [facility] Comment on above: Result Comment: GFR Population mean for , Non- Americans Ages 20-29 = 116 mL/min/1.73 sq.m. Ages 30-39 = 107 mL/min/1.73 sq.m. Ages 40-49 = 99 mL/min/1.73 sq.m. Ages 50-59 = 93 mL/min/1.73 sq.m. Ages 60-69 = 85 mL/min/1.73 sq.m. Ages 70+ = 75 mL/min/1.73 sq.m.Chronic Kidney Disease: Less than 60 mL/min/1.73 square metersEnd Stage Renal Disease: Less than 15 mL/min/1.73 square meters Performed By: #### A DARRIAN, GFR, ADIFF, CBC, MG, RFP, CAION ####[place] [address] GFR 48 ml/min/1.73sqm Normal [facility] Comment on above: Result Comment: GFR Population mean for , Non- Americans Ages 20-29 = 116 mL/min/1.73 sq.m. Ages 30-39 = 107 mL/min/1.73 sq.m. Ages 40-49 = 99 mL/min/1.73 sq.m. Ages 50-59 = 93 mL/min/1.73 sq.m. Ages 60-69 = 85 mL/min/1.73 sq.m. Ages 70+ = 75 mL/min/1.73 sq.m.Chronic Kidney Disease: Less than 60 mL/min/1.73 square metersEnd Stage Renal Disease: Less than 15 mL/min/1.73 square meters Performed By: #### A DARRIAN, GFR, ADIFF, CBC, MG, RFP, CAION ####[place] [address] .NEUABSon 02-05-2024 Neutrophil, Absolute 6.9 10 3/mcL Normal 2.3-8.1 [facility] Comment on above: Performed By: #### A DARRAIN, GFR, ADIFF, CBC, MG, RFP, CAION ####[place] [address] CAIONon 02-05-2024 Calcium Ionized 0.93 mmol/L Low 1.12-1.32 [facility] Comment on above: Performed By: #### A DARRIAN, GFR, ADIFF, CBC, MG, RFP, CAION ####[place] [address] CBCon 02-05-2024 Erythrocyte distribution width (RBC) [Ratio] 13.4 % Normal 11.5-15.5 [facility] Comment on above: Performed By: #### A DARRIAN, GFR, ADIFF, CBC, MG, RFP, CAION ####[place] [address] Hematocrit (Bld) [Volume fraction] 28.4 % Low 40.0-52.0 [facility] Comment on above: Performed By: #### A DARRIAN, GFR, ADIFF, CBC, MG, RFP, CAION ####[place] [address] Hgb 9.6 G/dL Low 13.0-17.5 [facility] Comment on above: Performed By: #### A DARRIAN, GFR, ADIFF, CBC, MG, RFP, CAION ####[place] [address] MCH (RBC) [Entitic mass] 30.6 pg Normal 27.0-33.0 [facility] Comment on above: Performed By: #### A DARRIAN, GFR, ADIFF, CBC, MG, RFP, CAION ####[place] [address] MCHC 33.8 G/dL Normal 32.0-36.0 [facility] Comment on above: Performed By: #### A DARRIAN, GFR, ADIFF, CBC, MG, RFP, CAION ####[place] [address] MCV (RBC) [Entitic vol] 90.7 fL Normal 81.0-100.0 [facility] Comment on above: Performed By: #### A DARRIAN, GFR, ADIFF, CBC, MG, RFP, CAION ####[place] [id number] Platelet 421 10 3/mcL Normal 150-450 [facility] Comment on above: Performed By: #### A DARRIAN, GFR, ADIFF, CBC, MG, RFP, CAION ####[place] [address] Platelet mean volume (Bld) [Entitic vol] 10.1 fL Normal 6.4-10.5 [facility] Comment on above: Performed By: #### A DARRIAN, GFR, ADIFF, CBC, MG, RFP, CAION ####[place] [id number] [place] [address] RBC 3.13 10 6/mcL Low 4.50-6.00 [facility] Comment on above: Performed By: #### A DARRIAN, GFR, ADIFF, CBC, MG, RFP, CAION ####[place] [address] WBC 8.1 10 3/mcL Normal 4.5-10.8 [facility] Comment on above: Performed By: #### A DARRIAN, GFR, ADIFF, CBC, MG, RFP, CAION ####[place] [address] LABORATORYOrdered By: SYSTEM SYSTEM on 02-05-2024 Albumin BCP dye [Mass/Vol] 1.1 G/dL Low 3.2 - 4.8 G/dL ADM SS Basophils (Bld) [#/Vol] 0.1 103/mcL Normal 0.0 - 0.3 10^3/mcL Workflow SS Basophils/100 WBC (Bld) 0.7 % Normal 0.0 - 2.5 % Workflow SS Calcium [Mass/Vol] 6.5 mg/dL Invalid Interpretation Code 8.7 - 10.4 mg/dL ADM SS Chloride [Moles/Vol] 110 mmol/L Normal 98 - 11 0 mEq/L ADM SS CO2 [Moles/Vol] 26 mmol/L Normal 22 - 32 mEq/L ADM SS Creatinine [Mass/Vol] 1.71 mg/dL High 0.60 - 1.40 mg/dL ADM SS Comment on above: Interpretive Data: T esting performed on Ze[employer]elin analyzer using enzymatic creatinine methodology. Electrolyte Balance 9.0 mEq/L Normal 4.0 - 15 .0 mEq/L ADM SS Eosinophils (Bld) [#/Vol] 0.0 103/mcL Normal 0.0 - 0.7 10^3/mcL AH Workflow SS Eosinophils/100 WBC (Bld) 0.0 % Normal 0.0 - 6.0 % Workflow SS Erythrocyte distribution width (RBC) [Ratio] 13.4 % Normal 11.5 - 15.5 % Workflow SS GFR/1.73 sq M.predicted among blacks MDRD (S/P/Bld) [Vol rate/Area] 48 ml/min/1.73sqm Invalid Interpretation Code [facility] Comment on above: Interpretive Data: GFR Population mean for , Non- Americans Ages 20-29 = 116 mL/min/1.73 sq.m. Ages 30-39 = 107 mL/min/1.73 sq.m. Ages 40-49 = 99 mL/min/1.73 sq.m. Ages 50-59 = 93 mL/min/1.73 sq.m. Ages 60-69 = 85 mL/min/1.73 sq.m. Ages 70+ = 75 mL/min/1.73 sq.m. Chronic Kidney Disease: Less than 60 mL/min/1.73 square meters End Stage Renal Disease: Less than 15 mL/min/1.73 square meters GFR/1.73 sq M.predicted among non-blacks MDRD (S/P/Bld) [Vol rate/Area] 40 ml/min/1.73sqm Invalid Interpretation Code [facility] Comment on above: Interpretive Data: GFR Population mean for , Non- Americans Ages 20-29 = 116 mL/min/1.73 sq.m. Ages 30-39 = 107 mL/min/1.73 sq.m. Ages 40-49 = 99 mL/min/1.73 sq.m. Ages 50-59 = 93 mL/min/1.73 sq.m. Ages 60-69 = 85 mL/min/1.73 sq.m. Ages 70+ = 75 mL/min/1.73 sq.m. Chronic Kidney Disease: Less than 60 mL/min/1.73 square meters End Stage Renal Disease: Less than 15 mL/min/1.73 square meters Glucose [Mass/Vol] 235 mg/dL High 82 - 115 mg/dL ADM SS Hematocrit (Bld) [Volume fraction] 28.4 % Low 40.0 - 52.0 % Workflow SS Hemoglobin (Bld) [Mass/Vol] 9.6 G/dL Low 13.0 - 17.5 G/dL Workflow SS Lymphocytes (Bld) [#/Vol] 0.4 103/mcL Low 0.9 - 4.3 10^3/mcL AH Workflow SS Lymphocytes/100 WBC (Bld) 5.1 % Low 20.0 - 40.0 % AH Workflow SS Magnesium [Mass/Vol] 2.0 mg/dL Normal 1.6 - 2 .4 mg/dL AH ADM SS MCH (RBC) [Entitic mass] 30.6 pg Normal 27.0 - 33.0 pg AH Workflow SS MCHC 33.8 G/dL Normal 32.0 - 36.0 G/dL AH Workflow SS MCV (RBC) [Entitic vol] 90.7 fL Normal 81.0 - 100.0 fL AH Workflow SS Monocytes (Bld) [#/Vol] 0.7 103/mcL Normal 0.1 - 1.4 10^3/mcL AH Workflow SS Monocytes/100 WBC (Bld) 8.6 % Normal 2.0 - 13.0 % AH Workflow SS Neutrophils (Bld) [#/Vol] 6.9 103/mcL Normal 2.3 - 8.1 10^3/mcL AH Workflow SS Neutrophils/100 WBC (Bld) 85.6 % High 50.0 - 75.0 % AH Workflow SS Phosphate [Mass/Vol] 5.1 mg/dL Normal 2.4 - 5 .1 mg/dL AH ADM SS Comment on above: Interpretive Data: * *Note - New Reference Range in effect 19 Platelet mean volume (Bld) [Entitic vol] 10.1 fL Normal 6.4 - 10.5 fL AH Workflow SS Platelets (Bld) [#/Vol] 421 103/mcL Normal 150 - 450 10^3/mcL AH Workflow SS Potassium [Moles/Vol] 4.2 mmol/L Normal 3.5 - 5.0 mEq/L AH ADM SS RBC (Bld) [#/Vol] 3.13 106/mcL Low 4.50 - 6.00 10^6/mcL AH Workflow SS Sodium [Moles/Vol] 145 mmol/L Normal 136 - 145 mEq/L AH ADM SS Urea nitrogen [Mass/Vol] 76.0 mg/dL High 8.0 - 22.0 mg/dL AH ADM SS Urea nitrogen/Creatinine [Mass ratio] 44.4 ratio High 10.0 - 22.0 ratio AH ADM SS WBC (Bld) [#/Vol] 8.1 103/mcL Normal 4.5 - 10.8 10^3/mcL AH Workflow SS LABORATORYOrdered By: Gorgeyair Miranda on 02-05-2024 Calcium Ionized 0.93 mmol/L Low 1.12 - 1.32 mmol/L Main Rapid Comm SS MGon 02-05-2024 Magnesium [Mass/Vol] 2.0 mg/dL Normal 1.6-2.4 [facility] Comment on above: Performed By: #### A DARRIAN, GFR, ADIFF, CBC, MG, RFP, CAION ####[address] [address] RFPon 02-05-2024 Albumin Level 1.1 G/dL Low 3.2-4.8 [facility] Comment on above: Performed By: #### A DARRIAN, GFR, ADIFF, CBC, MG, RFP, CAION ####[address] [address] BUN/Creatinine Ratio 44.4 ratio High 10.0-22.0 [facility] Comment on above: Performed By: #### A DARRIAN, GFR, ADIFF, CBC, MG, RFP, CAION ####[address] [address] Calcium [Mass/Vol] 6.5 mg/dL Critically abnormal 8.7-10.4 [facility] Comment on above: Performed By: #### A DARRIAN, GFR, ADIFF, CBC, MG, RFP, CAION ####[address] [address] Chloride [Moles/Vol] 110 mmol/L Normal 98-110 [facility] Comment on above: Performed By: #### A DARRIAN, GFR, ADIFF, CBC, MG, RFP, CAION ####[address] [address] CO2 [Moles/Vol] 26 mmol/L Normal 22-32 [facility] Comment on above: Performed By: #### A DARRIAN, GFR, ADIFF, CBC, MG, RFP, CAION ####[address] [address] Creatinine [Mass/Vol] 1.71 mg/dL High 0.60-1.40 [facility] Comment on above: Result Comment: Test ing performed on Zeppelin analyzer using enzymatic creatinine methodology. Performed By: #### A DARRIAN, GFR, ADIFF, CBC, MG, RFP, CAION ####[place] [address] Electrolyte Balance 9.0 mEq/L Normal 4.0-15.0 [facility] Comment on above: Performed By: #### A DARRIAN, GFR, ADIFF, CBC, MG, RFP, CAION ####[place] [address] Glucose [Mass/Vol] 235 mg/dL High 82-115 [facility] Comment on above: Performed By: #### A DARRIAN, GFR, ADIFF, CBC, MG, RFP, CAION ####[place] [address] Phosphate [Mass/Vol] 5.1 mg/dL Normal 2.4-5.1 [facility] Comment on above: Result Comment: No te - New Reference Range in effect 19 Performed By: #### A DARRIAN, GFR, ADIFF, CBC, MG, RFP, CAION ####[place] [address] Potassium [Moles/Vol] 4.2 mmol/L Normal 3.5-5.0 [facility] Comment on above: Performed By: #### A DARRIAN, GFR, ADIFF, CBC, MG, RFP, CAION ####[place] [id number] Sodium [Moles/Vol] 145 mmol/L Normal 136-145 [facility] Comment on above: Performed By: #### A DARRIAN, GFR, ADIFF, CBC, MG, RFP, CAION ####[place] [address] Urea nitrogen [Mass/Vol] 76.0 mg/dL High 8.0-22.0 [facility] Comment on above: Performed By: #### A DARRIAN, GFR, ADIFF, CBC, MG, RFP, CAION ####[place] [id number] .Auto Diffon 02-04-2024 Basophil, Absolute 0.0 10 3/mcL Normal 0.0-0.3 [facility] Comment on above: Performed By: #### C AION, MG, PHOS, ABSGEL, ABOGEL, ANEU, ADIFF, GFR, CMP, CBC ####[address] [address] Basophils/100 WBC (Bld) 0.4 % Normal 0.0-2.5 [facility] Comment on above: Performed By: #### C AION, MG, PHOS, ABSGEL, ABOGEL, ANEU, ADIFF, GFR, CMP, CBC ####[address] [address] Eosinophil, Absolute 0.1 10 3/mcL Normal 0.0-0.7 [facility] Comment on above: Performed By: #### C AION, MG, PHOS, ABSGEL, ABOGEL, ANEU, ADIFF, GFR, CMP, CBC ####[address] [address] Eosinophils/100 WBC (Bld) 1.0 % Normal 0.0-6.0 [facility] Comment on above: Performed By: #### C AION, MG, PHOS, ABSGEL, ABOGEL, ANEU, ADIFF, GFR, CMP, CBC ####[address] [address] Lymphocyte, Absolute 0.6 10 3/mcL Low 0.9-4.3 [facility] Comment on above: Performed By: #### C AION, MG, PHOS, ABSGEL, ABOGEL, ANEU, ADIFF, GFR, CMP, CBC ####[address] [address] Lymphocytes/100 WBC (Bld) 7.0 % Low 20.0-40.0 [facility] Comment on above: Performed By: #### C AION, MG, PHOS, ABSGEL, ABOGEL, ANEU, ADIFF, GFR, CMP, CBC ####[address] [address] Monocyte, Absolute 0.5 10 3/mcL Normal 0.1-1.4 [facility] Comment on above: Performed By: #### C AION, MG, PHOS, ABSGEL, ABOGEL, ANEU, ADIFF, GFR, CMP, CBC ####[place] [address] [place] [address] Monocytes/100 WBC (Bld) 5.9 % Normal 2.0-13.0 [facility] Comment on above: Performed By: #### C AION, MG, PHOS, ABSGEL, ABOGEL, ANEU, ADIFF, GFR, CMP, CBC ####[place] [address] [place] [address] Neutrophils/100 WBC (Bld) 85.7 % High 50.0-75.0 [facility] Comment on above: Performed By: #### C AION, MG, PHOS, ABSGEL, ABOGEL, ANEU, ADIFF, GFR, CMP, CBC ####[address] [address] .GFRon 02-04-2024 GFR Non- 39 ml/min/1.73sqm [facility] Comment on above: Result Comment: GFR Population mean for , Non- Americans Ages 20-29 = 116 mL/min/1.73 sq.m. Ages 30-39 = 107 mL/min/1.73 sq.m. Ages 40-49 = 99 mL/min/1.73 sq.m. Ages 50-59 = 93 mL/min/1.73 sq.m. Ages 60-69 = 85 mL/min/1.73 sq.m. Ages 70+ = 75 mL/min/1.73 sq.m.Chronic Kidney Disease: Less than 60 mL/min/1.73 square metersEnd Stage Renal Disease: Less than 15 mL/min/1.73 square meters Performed By: #### C AION, MG, PHOS, ABSGEL, ABOGEL, ANEU, ADIFF, GFR, CMP, CBC ####[address] [address] GFR 47 ml/min/1.73sqm [facility] Comment on above: Result Comment: GFR Population mean for , Non- Americans Ages 20-29 = 116 mL/min/1.73 sq.m. Ages 30-39 = 107 mL/min/1.73 sq.m. Ages 40-49 = 99 mL/min/1.73 sq.m. Ages 50-59 = 93 mL/min/1.73 sq.m. Ages 60-69 = 85 mL/min/1.73 sq.m. Ages 70+ = 75 mL/min/1.73 sq.m.Chronic Kidney Disease: Less than 60 mL/min/1.73 square metersEnd Stage Renal Disease: Less than 15 mL/min/1.73 square meters Performed By: #### C AION, MG, PHOS, ABSGEL, ABOGEL, ANEU, ADIFF, GFR, CMP, CBC ####[place] [address] .NEUABSon 02-04-2024 Neutrophil, Absolute 6.9 10 3/mcL Normal 2.3-8.1 [facility] Comment on above: Performed By: #### C AION, MG, PHOS, ABSGEL, ABOGEL, ANEU, ADIFF, GFR, CMP, CBC ####[place] [address] ABO/Rh (Gel)on 02-04-2024 ABO/Rh Interp Positive Invalid Interpretation Code [facility] Comment on above: Performed By: #### C AION, MG, PHOS, ABSGEL, ABOGEL, ANEU, ADIFF, GFR, CMP, CBC ####[place] [address] ABS (Gel)on 02-04-2024 ABSC Interp (Gel) Negative Normal [facility] Comment on above: Performed By: #### C AION, MG, PHOS, ABSGEL, ABOGEL, ANEU, ADIFF, GFR, CMP, CBC ####[place] [address] CAIONon 02-04-2024 Calcium Ionized 0.95 mmol/L Low 1.12-1.32 [facility] Comment on above: Performed By: #### C AION, MG, PHOS, ABSGEL, ABOGEL, ANEU, ADIFF, GFR, CMP, CBC ####[address] [address] CBCon 02-04-2024 Erythrocyte distribution width (RBC) [Ratio] 13.6 % Normal 11.5-15.5 [facility] Comment on above: Performed By: #### C AION, MG, PHOS, ABSGEL, ABOGEL, ANEU, ADIFF, GFR, CMP, CBC ####[place] [address] Hematocrit (Bld) [Volume fraction] 32.0 % Low 40.0-52.0 [facility] Comment on above: Performed By: #### C AION, MG, PHOS, ABSGEL, ABOGEL, ANEU, ADIFF, GFR, CMP, CBC ####[place] [address] Hgb 10.7 G/dL Low 13.0-17.5 [facility] Comment on above: Performed By: #### C AION, MG, PHOS, ABSGEL, ABOGEL, ANEU, ADIFF, GFR, CMP, CBC ####[place] [address] MCH (RBC) [Entitic mass] 30.8 pg Normal 27.0-33.0 [facility] Comment on above: Performed By: #### C AION, MG, PHOS, ABSGEL, ABOGEL, ANEU, ADIFF, GFR, CMP, CBC ####[place] [address] MCHC 33.5 G/dL Normal 32.0-36.0 [facility] Comment on above: Performed By: #### C AION, MG, PHOS, ABSGEL, ABOGEL, ANEU, ADIFF, GFR, CMP, CBC ####[place] [address] MCV (RBC) [Entitic vol] 91.7 fL Normal 81.0-100.0 [facility] Comment on above: Performed By: #### C AION, MG, PHOS, ABSGEL, ABOGEL, ANEU, ADIFF, GFR, CMP, CBC ####[place] [address] Platelet 371 10 3/mcL Normal 150-450 [facility] Comment on above: Performed By: #### C AION, MG, PHOS, ABSGEL, ABOGEL, ANEU, ADIFF, GFR, CMP, CBC ####[address] [address] Platelet mean volume (Bld) [Entitic vol] 10.2 fL Normal 6.4-10.5 [facility] Comment on above: Performed By: #### C AION, MG, PHOS, ABSGEL, ABOGEL, ANEU, ADIFF, GFR, CMP, CBC ####[place] [address] RBC 3.49 10 6/mcL Low 4.50-6.00 [facility] Comment on above: Performed By: #### C AION, MG, PHOS, ABSGEL, ABOGEL, ANEU, ADIFF, GFR, CMP, CBC ####[place] [address] WBC 8.0 10 3/mcL Normal 4.5-10.8 [facility] Comment on above: Performed By: #### C AION, MG, PHOS, ABSGEL, ABOGEL, ANEU, ADIFF, GFR, CMP, CBC ####[address] [address] CMPon 02-04-2024 Albumin Level 1.0 G/dL Low 3.2-4.8 [facility] Comment on above: Order Comment: vrb- called critical [facility] 05:24:17 EST SAS Performed By: #### C AION, MG, PHOS, ABSGEL, ABOGEL, ANEU, ADIFF, GFR, CMP, CBC ####[place] [address] Albumin/Globulin [Mass ratio] 0.2 {ratio} Low 0.9-1.6 [facility] Comment on above: Order Comment: vrb- called critical CA to RN Star [facility] 02/04/2024 05:24:17 EST SAS Performed By: #### C AION, MG, PHOS, ABSGEL, ABOGEL, ANEU, ADIFF, GFR, CMP, CBC ####[place] [id number] [place] [address] ALP [Catalytic activity/Vol] 80 U/L Normal 38-126 [facility] Comment on above: Order Comment: vrb- called critical CA to CLAUDIA Decker 02/04/2024 05:24:17 EST SAS Performed By: #### C AION, MG, PHOS, ABSGEL, ABOGEL, ANEU, ADIFF, GFR, CMP, CBC ####[address] [address] ALT [Catalytic activity/Vol] 30 U/L Normal 12-55 [facility] Comment on above: Order Comment: vrb- called critical CA to CLAUDIA Decker 02/04/2024 05:24:17 EST SAS Performed By: #### C AION, MG, PHOS, ABSGEL, ABOGEL, ANEU, ADIFF, GFR, CMP, CBC ####[address] [address] AST [Catalytic activity/Vol] 44 U/L High 8-34 [facility] Comment on above: Order Comment: vrb- called critical CA to CLAUDIA Decker 02/04/2024 05:24:17 EST SAS Performed By: #### C AION, MG, PHOS, ABSGEL, ABOGEL, ANEU, ADIFF, GFR, CMP, CBC ####[address] [address] Bili Total 0.30 mg/dL Normal 0.20-1.20 [facility] Comment on above: Order Comment: vrb- called critical CA to CLAUDIA Decker 02/04/2024 05:24:17 EST SAS Result Comment: Use of this assay is not recommended for patients undergoing treatment with eltrombopag due to the potential for falsely elevated results. Performed By: #### C AION, MG, PHOS, ABSGEL, ABOGEL, ANEU, ADIFF, GFR, CMP, CBC ####[address] [address] BUN/Creatinine Ratio 41.7 ratio High 10.0-22.0 [facility] Comment on above: Order Comment: vrb- called critical CA to RN Star Decker 02/04/2024 05:24:17 EST SAS Performed By: #### C AION, MG, PHOS, ABSGEL, ABOGEL, ANEU, ADIFF, GFR, CMP, CBC ####[address] [address] Chloride [Moles/Vol] 109 mmol/L Normal 98-110 [facility] Comment on above: Order Comment: vrb- called critical CA to RN Star Decker 02/04/2024 05:24:17 EST SAS Performed By: #### C AION, MG, PHOS, ABSGEL, ABOGEL, ANEU, ADIFF, GFR, CMP, CBC ####[address] [address] CO2 [Moles/Vol] 24 mmol/L Normal 22-32 [facility] Comment on above: Order Comment: vrb- called critical CA to RN Star Decker 02/04/2024 05:24:17 EST SAS Performed By: #### C AION, MG, PHOS, ABSGEL, ABOGEL, ANEU, ADIFF, GFR, CMP, CBC ####[address] [address] Creatinine [Mass/Vol] 1.75 mg/dL High 0.60-1.40 [facility] Comment on above: Order Comment: vrb- called critical CA to RN Star Decker 02/04/2024 05:24:17 EST SAS Result Comment: Test ing performed on Zeppelin analyzer using enzymatic creatinine methodology. Performed By: #### C AION, MG, PHOS, ABSGEL, ABOGEL, ANEU, ADIFF, GFR, CMP, CBC ####[address] [address] Electrolyte Balance 11.0 mEq/L Normal 4.0-15.0 [facility] Comment on above: Order Comment: vrb- called critical CA to RN Star Decker 02/04/2024 05:24:17 EST SAS Performed By: #### C AION, MG, PHOS, ABSGEL, ABOGEL, ANEU, ADIFF, GFR, CMP, CBC ####[address] [address] Globulin 4.3 G/dL High 1.5-3.8 [facility] Comment on above: Order Comment: vrb- called critical CA to RN Star Decker 02/04/2024 05:24:17 EST SAS Performed By: #### C AION, MG, PHOS, ABSGEL, ABOGEL, ANEU, ADIFF, GFR, CMP, CBC ####[address] [address] Glucose [Mass/Vol] 126 mg/dL High 82-115 [facility] Comment on above: Order Comment: vrb- called critical CA to RN Star Decker 02/04/2024 05:24:17 EST SAS Performed By: #### C AION, MG, PHOS, ABSGEL, ABOGEL, ANEU, ADIFF, GFR, CMP, CBC ####[address] [address] Potassium [Moles/Vol] 3.9 mmol/L Normal 3.5-5.0 [facility] Comment on above: Order Comment: vrb- called critical CA to CLAUDIA Decker 02/04/2024 05:24:17 EST SAS Performed By: #### C AION, MG, PHOS, ABSGEL, ABOGEL, ANEU, ADIFF, GFR, CMP, CBC ####[address] [address] Sodium [Moles/Vol] 144 mmol/L Normal 136-145 [facility] Comment on above: Order Comment: vrb- called critical CA to CLAUDIA Decker 02/04/2024 05:24:17 EST SAS Performed By: #### C AION, MG, PHOS, ABSGEL, ABOGEL, ANEU, ADIFF, GFR, CMP, CBC ####[address] [address] Total Protein 5.3 G/dL Low 5.7-8.2 [facility] Comment on above: Order Comment: vrb- called critical CA to RN Star Decker 02/04/2024 05:24:17 EST SAS Performed By: #### C AION, MG, PHOS, ABSGEL, ABOGEL, ANEU, ADIFF, GFR, CMP, CBC ####[place] [address] [place] [address] Urea nitrogen [Mass/Vol] 73.0 mg/dL High 8.0-22.0 [facility] Comment on above: Order Comment: vrb- called critical CA to CLAUDIA Decker 02/04/2024 05:24:17 EST SAS Performed By: #### C AION, MG, PHOS, ABSGEL, ABOGEL, ANEU, ADIFF, GFR, CMP, CBC ####[address] [address] Calcium [Mass/Vol] 6.7 mg/dL Critically abnormal 8.7-10.4 [facility] Comment on above: Order Comment: vrb- called critical CA to CLAUDIA Decker 02/04/2024 05:24:17 EST SAS Performed By: #### C AION, MG, PHOS, ABSGEL, ABOGEL, ANEU, ADIFF, GFR, CMP, CBC ####[place] [address] LABORATORYOrdered By: Patricia Hinton on 02-04-2024 ABO and Rh group Nom (Bld) Blood group A Rh(D) positive Invalid Interpretation Code AH BB Auto SS Blood group antibody screen Ql Negative ABSC (02/04/24 4:48 AM) Normal AH BB Auto SS LABORATORYOrdered By: SYSTEM SYSTEM on 02-04-2024 Albumin BCP dye [Mass/Vol] 1.0 G/dL Low 3.2 - 4.8 G/dL AH ADM SS Albumin/Globulin [Mass ratio] 0.2 {ratio} Low 0.9 - 1.6 ratio AH ADM SS ALP [Catalytic activity/Vol] 80 U/L Normal 38 - 126 U/L AH ADM SS ALT No additional P-5'-P [Catalytic activity/Vol] 30 U/L Normal 12 - 55 U/L AH ADM SS AST [Catalytic activity/Vol] 44 U/L High 8 - 34 U/L AH ADM SS Bilirubin [Mass/Vol] 0.30 mg/dL Normal 0.20 - 1.20 mg/dL AH ADM SS Comment on above: Interpretive Data: U se of this assay is not recommended for patients undergoing treatment with eltrombopag due to the potential for falsely elevated results. Globulin 4.3 G/dL High 1.5 - 3.8 G/dL ADM SS Magnesium [Mass/Vol] 2.0 mg/dL Normal 1.6 - 2 .4 mg/dL ADM SS Phosphate [Mass/Vol] 5.5 mg/dL High 2.4 - 5 .1 mg/dL [facility] SS Comment on above: Interpretive Data: * *Note - New Reference Range in effect 19 Protein [Mass/Vol] 5.3 G/dL Low 5.7 - 8.2 G/dL [facility] SS LABORATORYOrdered By: Yumiko Rudolph on 02-04-2024 Calcium Ionized 0.95 mmol/L Low 1.12 - 1.32 mmol/L Main Rapid Comm SS MGon 02-04-2024 Magnesium [Mass/Vol] 2.0 mg/dL Normal 1.6-2.4 [facility] Comment on above: Performed By: #### C AION, MG, PHOS, ABSGEL, ABOGEL, ANEU, ADIFF, GFR, CMP, CBC ####[address] [address] PHOSon 02-04-2024 Phosphate [Mass/Vol] 5.5 mg/dL High 2.4-5.1 [facility] Comment on above: Result Comment: No te - New Reference Range in effect 19 Performed By: #### C AION, MG, PHOS, ABSGEL, ABOGEL, ANEU, ADIFF, GFR, CMP, CBC ####[address] [address] XR CHEST 1 VIEWon 02-04-2024 XR CHEST [address] [facility] XR CHEST [address] [facility] .Auto Diffon 02-03-2024 Basophil, Absolute 0.0 10 3/mcL Normal 0.0-0.3 [facility] Comment on above: Performed By: #### A DARRIAN, CAION, ADIFF, PHOS, MG, BMP, GFR, CBC ####[address] [address] Basophils/100 WBC (Bld) 0.3 % Normal 0.0-2.5 [facility] Comment on above: Performed By: #### A DARRIAN, CAION, ADIFF, PHOS, MG, BMP, GFR, CBC ####[address] [address] Eosinophil, Absolute 0.0 10 3/mcL Normal 0.0-0.7 [facility] Comment on above: Performed By: #### A DARRIAN, CAION, ADIFF, PHOS, MG, BMP, GFR, CBC ####[address] [address] Eosinophils/100 WBC (Bld) 0.4 % Normal 0.0-6.0 [facility] Comment on above: Performed By: #### A DARRIAN, CAION, ADIFF, PHOS, MG, BMP, GFR, CBC ####[address] [address] Lymphocyte, Absolute 0.5 10 3/mcL Low 0.9-4.3 [facility] Comment on above: Performed By: #### A DARRIAN, CAION, ADIFF, PHOS, MG, BMP, GFR, CBC ####[address] [address] Lymphocytes/100 WBC (Bld) 6.9 % Low 20.0-40.0 [facility] Comment on above: Performed By: #### A DARRIAN, CAION, ADIFF, PHOS, MG, BMP, GFR, CBC ####[address] [address] Monocyte, Absolute 0.4 10 3/mcL Normal 0.1-1.4 [facility] Comment on above: Performed By: #### A DARRIAN, CAION, ADIFF, PHOS, MG, BMP, GFR, CBC ####[address] [address] Monocytes/100 WBC (Bld) 5.5 % Normal 2.0-13.0 [facility] Comment on above: Performed By: #### A DARRIAN, CAION, ADIFF, PHOS, MG, BMP, GFR, CBC ####[address] [address] Neutrophils/100 WBC (Bld) 86.9 % High 50.0-75.0 [facility] Comment on above: Performed By: #### A JUS COLMENARES ADIFF, PHOS, MG, BMP, GFR, CBC ####[address] [address] .GFRon 02-03-2024 GFR 50 ml/min/1.73sqm [facility] MAIN Comment on above: Result Comment: GFR Population mean for , Non- Americans Ages 20-29 = 116 mL/min/1.73 sq.m. Ages 30-39 = 107 mL/min/1.73 sq.m. Ages 40-49 = 99 mL/min/1.73 sq.m. Ages 50-59 = 93 mL/min/1.73 sq.m. Ages 60-69 = 85 mL/min/1.73 sq.m. Ages 70+ = 75 mL/min/1.73 sq.m.Chronic Kidney Disease: Less than 60 mL/min/1.73 square metersEnd Stage Renal Disease: Less than 15 mL/min/1.73 square meters Performed By: #### A JUS COLMENARES, ADKATI, PHOS, MG, BMP, GFR, CBC ####[place] [address] GFR Non- 41 ml/min/1.73sqm [facility] MAIN Comment on above: Result Comment: GFR Population mean for , Non- Americans Ages 20-29 = 116 mL/min/1.73 sq.m. Ages 30-39 = 107 mL/min/1.73 sq.m. Ages 40-49 = 99 mL/min/1.73 sq.m. Ages 50-59 = 93 mL/min/1.73 sq.m. Ages 60-69 = 85 mL/min/1.73 sq.m. Ages 70+ = 75 mL/min/1.73 sq.m.Chronic Kidney Disease: Less than 60 mL/min/1.73 square metersEnd Stage Renal Disease: Less than 15 mL/min/1.73 square meters Performed By: #### A DARRIAN, KRISON, ADIFF, PHOS, MG, BMP, GFR, CBC ####[address] [id number] .NEUABSon 02-03-2024 Neutrophil, Absolute 6.6 10 3/mcL Normal 2.3-8.1 [facility] Comment on above: Performed By: #### A DARRIAN, CAION, ADIFF, PHOS, MG, BMP, GFR, CBC ####[place] [id number] BGon 02-03-2024 Base excess Calc (Bld) [Moles/Vol] -0.8000 mmol/L Normal [facility] Comment on above: Performed By: #### B G ####[place] [address] CO2 [Moles/Vol] 25.9 mmol/L Normal 22.0-30.0 [facility] Comment on above: Performed By: #### B G ####[place] [address] HCO3 (Bld) [Moles/Vol] 24.5 mmol/L Normal 21.0-29.0 [facility] Comment on above: Performed By: #### B G ####[place] [address] Oxygen (Bld) [Partial pressure] 151.0 mm[Hg] High 74.0-108.0 [facility] Comment on above: Performed By: #### B G ####[place] [address] Oxygen saturation in Blood 99.0 % High 92.0-96.0 [facility] Comment on above: Performed By: #### B G ####[place] [address] pCO2 43.4 mmHg Normal 32.0-46.0 [facility] Comment on above: Performed By: #### B G ####[place] [address] pH (Bld) 7.370 [pH] Low 7.380-7.46 0 [facility] Comment on above: Performed By: #### B G ####[address] [address] BMPon 02-03-2024 BUN/Creatinine Ratio 38.0 ratio High 10.0-22.0 [facility] Comment on above: Performed By: #### A DARRIAN, CAION, ADIFF, PHOS, MG, BMP, GFR, CBC ####[place] [address] Calcium [Mass/Vol] 7.3 mg/dL Low 8.7-10.4 [facility] Comment on above: Performed By: #### A DARRIAN, CAION, ADIFF, PHOS, MG, BMP, GFR, CBC ####[place] [address] Chloride [Moles/Vol] 109 mmol/L Normal 98-110 [facility] Comment on above: Performed By: #### A DARRIAN, CAION, ADIFF, PHOS, MG, BMP, GFR, CBC ####[place] [id number] CO2 [Moles/Vol] 26 mmol/L Normal 22-32 [facility] Comment on above: Performed By: #### A DARRIAN, CAION, ADIFF, PHOS, MG, BMP, GFR, CBC ####[place] [address] Creatinine [Mass/Vol] 1.66 mg/dL High 0.60-1.40 [facility] Comment on above: Result Comment: Test ing performed on Zeppelin analyzer using enzymatic creatinine methodology. Performed By: #### A DARRIAN, CAION, ADIFF, PHOS, MG, BMP, GFR, CBC ####[place] [address] Electrolyte Balance 9.0 mEq/L Normal 4.0-15.0 [facility] Comment on above: Performed By: #### A DARRIAN, CAION, ADIFF, PHOS, MG, BMP, GFR, CBC ####[place] [id number] Glucose [Mass/Vol] 150 mg/dL High 82-115 [facility] Comment on above: Performed By: #### A DARRIAN, CAION, ADIFF, PHOS, MG, BMP, GFR, CBC ####[place] [id number] Potassium [Moles/Vol] 3.5 mmol/L Normal 3.5-5.0 [facility] Comment on above: Performed By: #### A DARRIAN, CAION, ADIFF, PHOS, MG, BMP, GFR, CBC ####[place] [id number] Sodium [Moles/Vol] 144 mmol/L Normal 136-145 [facility] Comment on above: Performed By: #### A DARRIAN, CAION, ADIFF, PHOS, MG, BMP, GFR, CBC ####[place] [address] Urea nitrogen [Mass/Vol] 63.0 mg/dL High 8.0-22.0 [facility] Comment on above: Performed By: #### A DARRIAN, CAION, ADIFF, PHOS, MG, BMP, GFR, CBC ####[place] [address] CAIONon 02-03-2024 Calcium Ionized 0.94 mmol/L Low 1.12-1.32 [facility] Comment on above: Performed By: #### A ADRRIAN, CAION, ADIFF, PHOS, MG, BMP, GFR, CBC ####[place] [address] CBCon 02-03-2024 Erythrocyte distribution width (RBC) [Ratio] 13.5 % Normal 11.5-15.5 [facility] Comment on above: Performed By: #### A DARRIAN, CAION, ADIFF, PHOS, MG, BMP, GFR, CBC ####[place] [address] Hematocrit (Bld) [Volume fraction] 31.8 % Low 40.0-52.0 [facility] Comment on above: Performed By: #### A DARRIAN, CAION, ADIFF, PHOS, MG, BMP, GFR, CBC ####[place] [address] Hgb 10.8 G/dL Low 13.0-17.5 [facility] Comment on above: Performed By: #### A DARRIAN, CAION, ADIFF, PHOS, MG, BMP, GFR, CBC ####[place] [address] MCH (RBC) [Entitic mass] 31.4 pg Normal 27.0-33.0 [facility] Comment on above: Performed By: #### A DARRIAN, CAION, ADIFF, PHOS, MG, BMP, GFR, CBC ####[place] [address] MCHC 34.0 G/dL Normal 32.0-36.0 [facility] Comment on above: Performed By: #### A DARRIAN, CAION, ADIFF, PHOS, MG, BMP, GFR, CBC ####[place] [address] MCV (RBC) [Entitic vol] 92.2 fL Normal 81.0-100.0 [facility] Comment on above: Performed By: #### A DARRIAN, CAION, ADIFF, PHOS, MG, BMP, GFR, CBC ####[place] [address] Platelet 307 10 3/mcL Normal 150-450 [facility] Comment on above: Performed By: #### A DARRIAN, CAION, ADIFF, PHOS, MG, BMP, GFR, CBC ####[place] [address] Platelet mean volume (Bld) [Entitic vol] 10.5 fL Normal 6.4-10.5 [facility] Comment on above: Performed By: #### A DARRIAN, CAION, ADIFF, PHOS, MG, BMP, GFR, CBC ####[place] [address] RBC 3.45 10 6/mcL Low 4.50-6.00 [facility] Comment on above: Performed By: #### A DARRIAN, CAION, ADIFF, PHOS, MG, BMP, GFR, CBC ####[place] [address] WBC 7.6 10 3/mcL Normal 4.5-10.8 [facility] Comment on above: Performed By: #### A JUS COLMENARES ADIFF, PHOS, MG, BMP, GFR, CBC ####[place] [address] [place] [phone] LABORATORYOrdered By: Jerry Manzano on 02-03-2024 Blood Glucose Interventions Administered agent to decrease blood sugar (02/03/24 3:45 PM) [facility] LABORATORYOrdered By: Muriel scales on 02-03-2024 Base Excess -0.8 mmol/L Invalid Interpretation Code Main Rapid Comm SS CO2 [Moles/Vol] 25.9 mmol/L Normal 22.0 - 30.0 mmol/L Main Rapid Comm SS HCO3 (Bld) [Moles/Vol] 24.5 mmol/L Normal 21.0 - 29.0 mmol/L Main Rapid Comm SS Oxygen (Bld) [Partial pressure] 151.0 mm[Hg] High 74.0 - 108.0 mm Hg Main Rapid Comm SS pCO2 43.4 mm[Hg] Normal 32.0 - 46.0 mm Hg Main Rapid Comm SS pH (Bld) 7.370 [pH] Low 7.380 - 7.460 Main Rapid Comm SS LABORATORYOrdered By: SYSTEM SYSTEM on 02-03-2024 Magnesium [Mass/Vol] 1.9 mg/dL Normal 1.6 - 2 .4 mg/dL ADM SS Phosphate [Mass/Vol] 4.4 mg/dL Normal 2.4 - 5 .1 mg/dL ADM SS Comment on above: Interpretive Data: * *Note - New Reference Range in effect 19 MGon 02-03-2024 Magnesium [Mass/Vol] 1.9 mg/dL Normal 1.6-2.4 [facility] Comment on above: Performed By: #### A JUS COLMENARES ADIFF, PHOS, MG, BMP, GFR, CBC ####[place] [address] [place] [phone] PHOSon 02-03-2024 Phosphate [Mass/Vol] 4.4 mg/dL Normal 2.4-5.1 [facility] Comment on above: Result Comment: No te - New Reference Range in effect 19 Performed By: #### A DARRIAN, CAION, ADIFF, PHOS, MG, BMP, GFR, CBC ####[address] [address] XR CHEST 1 VIEWon 02-03-2024 XR CHEST [address] [facility] XR CHEST [address] [facility] .Auto Diffon 02-02-2024 Basophil, Absolute 0.0 10 3/mcL Normal 0.0-0.3 [facility] Comment on above: Performed By: #### M G, CBC, ADIFF, ANEU, GFR, BMP, PHOS ####[address] [address] Basophils/100 WBC (Bld) 0.3 % Normal 0.0-2.5 [facility] Comment on above: Performed By: #### M G, CBC, ADIFF, ANEU, GFR, BMP, PHOS ####[address] [address] Eosinophil, Absolute 0.1 10 3/mcL Normal 0.0-0.7 [facility] Comment on above: Performed By: #### M G, CBC, ADIFF, ANEU, GFR, BMP, PHOS ####[address] [address] Eosinophils/100 WBC (Bld) 0.6 % Normal 0.0-6.0 [facility] Comment on above: Performed By: #### M G, CBC, ADIFF, ANEU, GFR, BMP, PHOS ####[address] [address] Lymphocyte, Absolute 0.5 10 3/mcL Low 0.9-4.3 [facility] Comment on above: Performed By: #### M G, CBC, ADIFF, ANEU, GFR, BMP, PHOS ####[address] [address] Lymphocytes/100 WBC (Bld) 5.4 % Low 20.0-40.0 [facility] Comment on above: Performed By: #### M G, CBC, ADIFF, ANEU, GFR, BMP, PHOS ####[facility] [place] [address] Monocyte, Absolute 0.4 10 3/mcL Normal 0.1-1.4 [facility] Comment on above: Performed By: #### M G, CBC, ADIFF, ANEU, GFR, BMP, PHOS ####[place] [address] [place] [address] Monocytes/100 WBC (Bld) 4.4 % Normal 2.0-13.0 [facility] Comment on above: Performed By: #### M G, CBC, ADIFF, ANEU, GFR, BMP, PHOS ####[place] [address] [place] [address] Neutrophils/100 WBC (Bld) 89.3 % High 50.0-75.0 [facility] Comment on above: Performed By: #### M G, CBC, ADIFF, ANEU, GFR, BMP, PHOS ####[address] [address] .GFRon 02-02-2024 GFR 45 ml/min/1.73sqm [facility] MAIN Comment on above: Result Comment: GFR Population mean for , Non- Americans Ages 20-29 = 116 mL/min/1.73 sq.m. Ages 30-39 = 107 mL/min/1.73 sq.m. Ages 40-49 = 99 mL/min/1.73 sq.m. Ages 50-59 = 93 mL/min/1.73 sq.m. Ages 60-69 = 85 mL/min/1.73 sq.m. Ages 70+ = 75 mL/min/1.73 sq.m.Chronic Kidney Disease: Less than 60 mL/min/1.73 square metersEnd Stage Renal Disease: Less than 15 mL/min/1.73 square meters Performed By: #### M G, CBC, ADIFF, ANEU, GFR, BMP, PHOS ####[address] [address] GFR Non- 37 ml/min/1.73sqm [facility] MAIN Comment on above: Result Comment: GFR Population mean for , Non- Americans Ages 20-29 = 116 mL/min/1.73 sq.m. Ages 30-39 = 107 mL/min/1.73 sq.m. Ages 40-49 = 99 mL/min/1.73 sq.m. Ages 50-59 = 93 mL/min/1.73 sq.m. Ages 60-69 = 85 mL/min/1.73 sq.m. Ages 70+ = 75 mL/min/1.73 sq.m.Chronic Kidney Disease: Less than 60 mL/min/1.73 square metersEnd Stage Renal Disease: Less than 15 mL/min/1.73 square meters Performed By: #### M G, CBC, ADIFF, ANEU, GFR, BMP, PHOS ####[address] [address] .NEUABSon 02-02-2024 Neutrophil, Absolute 8.2 10 3/mcL High 2.3-8.1 [facility] Comment on above: Performed By: #### Asia G, CBC, ADIFF, ANEU, GFR, BMP, PHOS ####[address] [address] BMPon 02-02-2024 BUN/Creatinine Ratio 43.3 ratio High 10.0-22.0 [facility] Comment on above: Performed By: #### M G, CBC, ADIFF, ANEU, GFR, BMP, PHOS ####[address] [address] Calcium [Mass/Vol] 6.6 mg/dL Critically abnormal 8.7-10.4 [facility] Comment on above: Performed By: #### M G, CBC, ADIFF, ANEU, GFR, BMP, PHOS ####[address] [address] Chloride [Moles/Vol] 113 mmol/L High 98-110 [facility] Comment on above: Performed By: #### M G, CBC, ADIFF, ANEU, GFR, BMP, PHOS ####[address] [address] CO2 [Moles/Vol] 24 mmol/L Normal 22-32 [facility] Comment on above: Performed By: #### M G, CBC, ADIFF, ANEU, GFR, BMP, PHOS ####[place] [address] Creatinine [Mass/Vol] 1.80 mg/dL High 0.60-1.40 [facility] Comment on above: Result Comment: Test ing performed on Zeppelin analyzer using enzymatic creatinine methodology. Performed By: #### M G, CBC, ADIFF, ANEU, GFR, BMP, PHOS ####[place] [address] Electrolyte Balance 11.0 mEq/L Normal 4.0-15.0 [facility] Comment on above: Performed By: #### M G, CBC, ADIFF, ANEU, GFR, BMP, PHOS ####[place] [address] Glucose [Mass/Vol] 229 mg/dL High 82-115 [facility] Comment on above: Performed By: #### M G, CBC, ADIFF, ANEU, GFR, BMP, PHOS ####[place] [address] Potassium [Moles/Vol] 3.4 mmol/L Low 3.5-5.0 [facility] Comment on above: Performed By: #### M G, CBC, ADIFF, ANEU, GFR, BMP, PHOS ####[place] [address] Sodium [Moles/Vol] 148 mmol/L High 136-145 [facility] Comment on above: Performed By: #### M G, CBC, ADIFF, ANEU, GFR, BMP, PHOS ####[address] [address] Urea nitrogen [Mass/Vol] 78.0 mg/dL High 8.0-22.0 [facility] Comment on above: Performed By: #### M G, CBC, ADIFF, ANEU, GFR, BMP, PHOS ####[address] [address] CBCon 02-02-2024 Erythrocyte distribution width (RBC) [Ratio] 13.6 % Normal 11.5-15.5 [facility] Comment on above: Performed By: #### M G, CBC, ADIFF, ANEU, GFR, BMP, PHOS ####[place] [address] Hematocrit (Bld) [Volume fraction] 31.4 % Low 40.0-52.0 [facility] Comment on above: Performed By: #### M G, CBC, ADIFF, ANEU, GFR, BMP, PHOS ####[place] [address] Hgb 10.4 G/dL Low 13.0-17.5 [facility] Comment on above: Performed By: #### M G, CBC, ADIFF, ANEU, GFR, BMP, PHOS ####[place] [address] MCH (RBC) [Entitic mass] 30.5 pg Normal 27.0-33.0 [facility] Comment on above: Performed By: #### M G, CBC, ADIFF, ANEU, GFR, BMP, PHOS ####[place] [address] MCHC 33.2 G/dL Normal 32.0-36.0 [facility] Comment on above: Performed By: #### M G, CBC, ADIFF, ANEU, GFR, BMP, PHOS ####[place] [address] MCV (RBC) [Entitic vol] 91.9 fL Normal 81.0-100.0 [facility] Comment on above: Performed By: #### M G, CBC, ADIFF, ANEU, GFR, BMP, PHOS ####[place] [address] Platelet 271 10 3/mcL Normal 150-450 [facility] Comment on above: Performed By: #### M G, CBC, ADIFF, ANEU, GFR, BMP, PHOS ####[place] [address] Platelet mean volume (Bld) [Entitic vol] 10.7 fL High 6.4-10.5 [facility] Comment on above: Performed By: #### M G, CBC, ADIFF, ANEU, GFR, BMP, PHOS ####[place] [address] RBC 3.41 10 6/mcL Low 4.50-6.00 [facility] Comment on above: Performed By: #### M G, CBC, ADIFF, ANEU, GFR, BMP, PHOS ####[place] [address] WBC 9.1 10 3/mcL Normal 4.5-10.8 [facility] Comment on above: Performed By: #### M G, CBC, ADIFF, ANEU, GFR, BMP, PHOS ####[place] [address] CBLon 02-02-2024 CBL Normal [facility] LABORATORYOrdered By: Tyler Cruz on 02-02-2024 Osmolality (U) [Osmolality] 380 mosm/kg Low 390 - 1090 mOsm/kg Manual Chem SS LABORATORYOrdered By: Muriel scales on 02-02-2024 Sodium (U) [Moles/Vol] 58 mmol/L Invalid Interpretation Code ADM SS MGon 02-02-2024 Magnesium [Mass/Vol] 1.8 mg/dL Normal 1.6-2.4 [facility] Comment on above: Performed By: #### M G, CBC, ADIFF, ANEU, GFR, BMP, PHOS ####[place] [address] NAon 02-02-2024 Sodium [Moles/Vol] 147 mmol/L High 136-145 [facility] Comment on above: Performed By: #### N A ####[place] [address] NAURon 02-02-2024 Sodium [Moles/Vol] 58 mmol/L Normal [facility] Comment on above: Performed By: #### N AUR OSMOU ####[place] [address] OSMOUon 02-02-2024 U Osmolality 380 mOsm/kg Low 390-1090 [facility] Comment on above: Performed By: #### N AUR, OSMOU ####[address] [address] PHOSon 02-02-2024 Phosphate [Mass/Vol] 4.0 mg/dL Normal 2.4-5.1 [facility] Comment on above: Result Comment: No te - New Reference Range in effect 19 Performed By: #### M G, CBC, ADIFF, ANEU, GFR, BMP, PHOS ####[place] [address] XR CHEST 1 VIEWon 02-02-2024 XR CHEST 1 VIEW Normal [facility] .Auto Diffon 02-01-2024 Basophil, Absolute 0.0 10 3/mcL Normal 0.0-0.3 [facility] Comment on above: Performed By: #### A DIFF, GFR, BMP, CBC, ANEU ####[address] [address] Basophils/100 WBC (Bld) 0.3 % Normal 0.0-2.5 [facility] Comment on above: Performed By: #### A DIFF, GFR, BMP, CBC, ANEU ####[address] [address] Eosinophil, Absolute 0.1 10 3/mcL Normal 0.0-0.7 [facility] Comment on above: Performed By: #### A DIFF, GFR, BMP, CBC, ANEU ####[address] [address] Eosinophils/100 WBC (Bld) 0.6 % Normal 0.0-6.0 [facility] Comment on above: Performed By: #### A DIFF, GFR, BMP, CBC, ANEU ####[address] [address] Lymphocyte, Absolute 0.5 10 3/mcL Low 0.9-4.3 [facility] Comment on above: Performed By: #### A DIFF, GFR, BMP, CBC, ANEU ####[address] [address] Lymphocytes/100 WBC (Bld) 4.9 % Low 20.0-40.0 [facility] Comment on above: Performed By: #### A DIFF, GFR, BMP, CBC, ANEU ####[address] [address] Monocyte, Absolute 0.3 10 3/mcL Normal 0.1-1.4 [facility] Comment on above: Performed By: #### A DIFF, GFR, BMP, CBC, ANEU ####[address] [address] Monocytes/100 WBC (Bld) 3.1 % Normal 2.0-13.0 [facility] Comment on above: Performed By: #### A DIFF, GFR, BMP, CBC, ANEU ####[address] [address] Neutrophils/100 WBC (Bld) 91.1 % High 50.0-75.0 [facility] Comment on above: Performed By: #### A DIFF, GFR, BMP, CBC, ANEU ####[address] [address] .GFRon 02-01-2024 GFR 42 ml/min/1.73sqm [facility] MAIN Comment on above: Result Comment: GFR Population mean for , Non- Americans Ages 20-29 = 116 mL/min/1.73 sq.m. Ages 30-39 = 107 mL/min/1.73 sq.m. Ages 40-49 = 99 mL/min/1.73 sq.m. Ages 50-59 = 93 mL/min/1.73 sq.m. Ages 60-69 = 85 mL/min/1.73 sq.m. Ages 70+ = 75 mL/min/1.73 sq.m.Chronic Kidney Disease: Less than 60 mL/min/1.73 square metersEnd Stage Renal Disease: Less than 15 mL/min/1.73 square meters Performed By: #### G FR, BMP ####[address] [address] GFR Non- 35 ml/min/1.73sqm [facility] MAIN Comment on above: Result Comment: GFR Population mean for , Non- Americans Ages 20-29 = 116 mL/min/1.73 sq.m. Ages 30-39 = 107 mL/min/1.73 sq.m. Ages 40-49 = 99 mL/min/1.73 sq.m. Ages 50-59 = 93 mL/min/1.73 sq.m. Ages 60-69 = 85 mL/min/1.73 sq.m. Ages 70+ = 75 mL/min/1.73 sq.m.Chronic Kidney Disease: Less than 60 mL/min/1.73 square metersEnd Stage Renal Disease: Less than 15 mL/min/1.73 square meters Performed By: #### G FR, BMP ####[address] [address] GFR 46 ml/min/1.73sqm [facility] MAIN Comment on above: Result Comment: GFR Population mean for , Non- Americans Ages 20-29 = 116 mL/min/1.73 sq.m. Ages 30-39 = 107 mL/min/1.73 sq.m. Ages 40-49 = 99 mL/min/1.73 sq.m. Ages 50-59 = 93 mL/min/1.73 sq.m. Ages 60-69 = 85 mL/min/1.73 sq.m. Ages 70+ = 75 mL/min/1.73 sq.m.Chronic Kidney Disease: Less than 60 mL/min/1.73 square metersEnd Stage Renal Disease: Less than 15 mL/min/1.73 square meters Performed By: #### A DIFF, GFR, BMP, CBC, ANEU ####[address] [address] GFR Non- 38 ml/min/1.73sqm [facility] MAIN Comment on above: Result Comment: GFR Population mean for , Non- Americans Ages 20-29 = 116 mL/min/1.73 sq.m. Ages 30-39 = 107 mL/min/1.73 sq.m. Ages 40-49 = 99 mL/min/1.73 sq.m. Ages 50-59 = 93 mL/min/1.73 sq.m. Ages 60-69 = 85 mL/min/1.73 sq.m. Ages 70+ = 75 mL/min/1.73 sq.m.Chronic Kidney Disease: Less than 60 mL/min/1.73 square metersEnd Stage Renal Disease: Less than 15 mL/min/1.73 square meters Performed By: #### A DIFF, GFR, BMP, CBC, ANEU ####[place] [address] .NEUABSon 02-01-2024 Neutrophil, Absolute 9.8 10 3/mcL High 2.3-8.1 [facility] Comment on above: Performed By: #### A DIFF, GFR, BMP, CBC, ANEU ####[place] [address] BMPon 02-01-2024 BUN/Creatinine Ratio 41.9 ratio High 10.0-22.0 [facility]IN Comment on above: Performed By: #### G FR, BMP ####[place] [address] Calcium [Mass/Vol] 7.0 mg/dL Low 8.7-10.4 [facility] Comment on above: Performed By: #### G FR, BMP ####[place] [address] Chloride [Moles/Vol] 116 mmol/L High 98-110 [facility] Comment on above: Performed By: #### G FR, BMP ####[place] [address] CO2 [Moles/Vol] 26 mmol/L Normal 22-32 [facility] Comment on above: Performed By: #### G FR, BMP ####[place] [address] Creatinine [Mass/Vol] 1.91 mg/dL High 0.60-1.40 [facility] MAIN Comment on above: Result Comment: Test ing performed on Zeppelin analyzer using enzymatic creatinine methodology. Performed By: #### G FR, BMP ####[place] [address] Electrolyte Balance 9.0 mEq/L Normal 4.0-15.0 [facility]IN Comment on above: Performed By: #### G FR, BMP ####[place] [address] Glucose [Mass/Vol] 202 mg/dL High 82-115 [facility] Comment on above: Performed By: #### G FR, BMP ####[address] [address] Potassium [Moles/Vol] 2.9 mmol/L Low 3.5-5.0 [facility]IN Comment on above: Performed By: #### G FR, BMP ####[address] [address] Sodium [Moles/Vol] 151 mmol/L High 136-145 [facility] Comment on above: Performed By: #### G FR, BMP ####[address] [address] Urea nitrogen [Mass/Vol] 80.0 mg/dL High 8.0-22.0 [facility] Comment on above: Performed By: #### G FR, BMP ####[address] [address] BUN/Creatinine Ratio 46.1 ratio High 10.0-22.0 [facility] Comment on above: Performed By: #### A DIFF, GFR, BMP, CBC, ANEU ####[address] [address] Calcium [Mass/Vol] 6.9 mg/dL Critically abnormal 8.7-10.4 [facility] Comment on above: Performed By: #### A DIFF, GFR, BMP, CBC, ANEU ####[address] [address] Chloride [Moles/Vol] 119 mmol/L High 98-110 [facility] Comment on above: Performed By: #### A DIFF, GFR, BMP, CBC, ANEU ####[address] [address] CO2 [Moles/Vol] 22 mmol/L Normal 22-32 [facility] Comment on above: Performed By: #### A DIFF, GFR, BMP, CBC, ANEU ####[address] [address] Creatinine [Mass/Vol] 1.78 mg/dL High 0.60-1.40 [facility] Comment on above: Result Comment: Test ing performed on Zeppelin analyzer using enzymatic creatinine methodology. Performed By: #### A DIFF, GFR, BMP, CBC, ANEU ####[place] [address] Electrolyte Balance 14.0 mEq/L Normal 4.0-15.0 [facility] Comment on above: Performed By: #### A DIFF, GFR, BMP, CBC, ANEU ####[place] [address] Glucose [Mass/Vol] 140 mg/dL High 82-115 [facility] Comment on above: Performed By: #### A DIFF, GFR, BMP, CBC, ANEU ####[place] [address] Potassium [Moles/Vol] 3.3 mmol/L Low 3.5-5.0 [facility] Comment on above: Performed By: #### A DIFF, GFR, BMP, CBC, ANEU ####[place] [address] Sodium [Moles/Vol] 155 mmol/L High 136-145 [facility] Comment on above: Performed By: #### A DIFF, GFR, BMP, CBC, ANEU ####[place] [address] Urea nitrogen [Mass/Vol] 82.0 mg/dL High 8.0-22.0 [facility] Comment on above: Performed By: #### A DIFF, GFR, BMP, CBC, ANEU ####[place] [address] CAIONon 02-01-2024 Calcium Ionized 0.97 mmol/L Low 1.12-1.32 [facility] Comment on above: Performed By: #### C AION ####[place] [address] CBCon 02-01-2024 Erythrocyte distribution width (RBC) [Ratio] 13.8 % Normal 11.5-15.5 [facility] Comment on above: Performed By: #### A DIFF, GFR, BMP, CBC, ANEU ####[place] [address] Hematocrit (Bld) [Volume fraction] 32.2 % Low 40.0-52.0 [facility] Comment on above: Performed By: #### A DIFF, GFR, BMP, CBC, ANEU ####[place] [address] Hgb 10.8 G/dL Low 13.0-17.5 [facility] Comment on above: Performed By: #### A DIFF, GFR, BMP, CBC, ANEU ####[place] [address] MCH (RBC) [Entitic mass] 31.0 pg Normal 27.0-33.0 [facility] Comment on above: Performed By: #### A DIFF, GFR, BMP, CBC, ANEU ####[place] [address] MCHC 33.4 G/dL Normal 32.0-36.0 [facility] Comment on above: Performed By: #### A DIFF, GFR, BMP, CBC, ANEU ####[place] [address] MCV (RBC) [Entitic vol] 92.8 fL Normal 81.0-100.0 [facility] Comment on above: Performed By: #### A DIFF, GFR, BMP, CBC, ANEU ####[place] [address] Platelet 252 10 3/mcL Normal 150-450 [facility] Comment on above: Performed By: #### A DIFF, GFR, BMP, CBC, ANEU ####[place] [address] Platelet mean volume (Bld) [Entitic vol] 10.9 fL High 6.4-10.5 [facility] Comment on above: Performed By: #### A DIFF, GFR, BMP, CBC, ANEU ####[place] [address] RBC 3.48 10 6/mcL Low 4.50-6.00 [facility] Comment on above: Performed By: #### A DIFF, GFR, BMP, CBC, ANEU ####[address] [address] WBC 10.7 10 3/mcL Normal 4.5-10.8 [facility] Comment on above: Performed By: #### A DIFF, GFR, BMP, CBC, ANEU ####[address] [address] .Auto Diffon 01-31-2024 Basophil, Absolute 0.0 10 3/mcL Normal 0.0-0.3 [facility] Comment on above: Performed By: #### B MP, ADIFF, ANEU, GFR, CBC ####[address] [address] Basophils/100 WBC (Bld) 0.5 % Normal 0.0-2.5 [facility] Comment on above: Performed By: #### B MP, ADIFF, ANEU, GFR, CBC ####[address] [address] Eosinophil, Absolute 0.1 10 3/mcL Normal 0.0-0.7 [facility] Comment on above: Performed By: #### B MP, ADIFF, ANEU, GFR, CBC ####[address] [address] Eosinophils/100 WBC (Bld) 0.6 % Normal 0.0-6.0 [facility] Comment on above: Performed By: #### B MP, ADIFF, ANEU, GFR, CBC ####[address] [address] Lymphocyte, Absolute 0.6 10 3/mcL Low 0.9-4.3 [facility] Comment on above: Performed By: #### B MP, ADIFF, ANEU, GFR, CBC ####[address] [address] Lymphocytes/100 WBC (Bld) 6.1 % Low 20.0-40.0 [facility] Comment on above: Performed By: #### B MP, ADIFF, ANEU, GFR, CBC ####[address] [address] Monocyte, Absolute 0.3 10 3/mcL Normal 0.1-1.4 [facility] Comment on above: Performed By: #### B MP, ADIFF, ANEU, GFR, CBC ####[place] [id number] [place] [id number] Monocytes/100 WBC (Bld) 3.3 % Normal 2.0-13.0 [facility] Comment on above: Performed By: #### B MP, ADIFF, ANEU, GFR, CBC ####[place] [id number] [place] [id number] Neutrophils/100 WBC (Bld) 89.5 % High 50.0-75.0 [facility] MAIN Comment on above: Performed By: #### B MP, ADIFF, ANEU, GFR, CBC ####[address] [address] .GFRon 01-31-2024 GFR 43 ml/min/1.73sqm [facility] MAIN Comment on above: Result Comment: GFR Population mean for , Non- Americans Ages 20-29 = 116 mL/min/1.73 sq.m. Ages 30-39 = 107 mL/min/1.73 sq.m. Ages 40-49 = 99 mL/min/1.73 sq.m. Ages 50-59 = 93 mL/min/1.73 sq.m. Ages 60-69 = 85 mL/min/1.73 sq.m. Ages 70+ = 75 mL/min/1.73 sq.m.Chronic Kidney Disease: Less than 60 mL/min/1.73 square metersEnd Stage Renal Disease: Less than 15 mL/min/1.73 square meters Performed By: #### B MP, ADIFF, ANEU, GFR, CBC ####[place] [id number] [place] [address] GFR Non- 36 ml/min/1.73sqm [facility] MAIN Comment on above: Result Comment: GFR Population mean for , Non- Americans Ages 20-29 = 116 mL/min/1.73 sq.m. Ages 30-39 = 107 mL/min/1.73 sq.m. Ages 40-49 = 99 mL/min/1.73 sq.m. Ages 50-59 = 93 mL/min/1.73 sq.m. Ages 60-69 = 85 mL/min/1.73 sq.m. Ages 70+ = 75 mL/min/1.73 sq.m.Chronic Kidney Disease: Less than 60 mL/min/1.73 square metersEnd Stage Renal Disease: Less than 15 mL/min/1.73 square meters Performed By: #### B MP, ADIFF, ANEU, GFR, CBC ####[address] [address] .NEUABSon 01-31-2024 Neutrophil, Absolute 8.7 10 3/mcL High 2.3-8.1 [facility] MAIN Comment on above: Performed By: #### B MP, ADIFF, ANEU, GFR, CBC ####[address] [address] BMPon 01-31-2024 BUN/Creatinine Ratio 47.6 ratio High 10.0-22.0 [facility] MAIN Comment on above: Performed By: #### B MP, ADIFF, ANEU, GFR, CBC ####[address] [address] Calcium [Mass/Vol] 7.3 mg/dL Low 8.7-10.4 [facility] MAIN Comment on above: Performed By: #### B MP, ADIFF, ANEU, GFR, CBC ####[address] [address] Chloride [Moles/Vol] 119 mmol/L High 98-110 [facility] MAIN Comment on above: Performed By: #### B MP, ADIFF, ANEU, GFR, CBC ####[address] [address] CO2 [Moles/Vol] 23 mmol/L Normal 22-32 [facility] MAIN Comment on above: Performed By: #### B MP, ADIFF, ANEU, GFR, CBC ####[address] [address] Creatinine [Mass/Vol] 1.87 mg/dL High 0.60-1.40 [facility] MAIN Comment on above: Result Comment: Test ing performed on Zeppelin analyzer using enzymatic creatinine methodology. Performed By: #### B MP, ADIFF, ANEU, GFR, CBC ####[place] [address] Electrolyte Balance 12.0 mEq/L Normal 4.0-15.0 [facility] MAIN Comment on above: Performed By: #### B MP, ADIFF, ANEU, GFR, CBC ####[address] [address] Glucose [Mass/Vol] 289 mg/dL High 82-115 [facility] MAIN Comment on above: Performed By: #### B MP, ADIFF, ANEU, GFR, CBC ####[place] [address] Potassium [Moles/Vol] 3.7 mmol/L Normal 3.5-5.0 [facility] MAIN Comment on above: Performed By: #### B MP, ADIFF, ANEU, GFR, CBC ####[place] [address] Sodium [Moles/Vol] 154 mmol/L High 136-145 [facility] MAIN Comment on above: Performed By: #### B MP, ADIFF, ANEU, GFR, CBC ####[place] [address] Urea nitrogen [Mass/Vol] 89.0 mg/dL High 8.0-22.0 [facility] MAIN Comment on above: Performed By: #### B MP, ADIFF, ANEU, GFR, CBC ####[place] [address] CBCon 01-31-2024 Erythrocyte distribution width (RBC) [Ratio] 14.1 % Normal 11.5-15.5 [facility] MAIN Comment on above: Performed By: #### B MP, ADIFF, ANEU, GFR, CBC ####[place] [address] Hematocrit (Bld) [Volume fraction] 33.4 % Low 40.0-52.0 [facility] MAIN Comment on above: Performed By: #### B MP, ADIFF, ANEU, GFR, CBC ####[place] [address] Hgb 11.1 G/dL Low 13.0-17.5 [facility] MAIN Comment on above: Performed By: #### B MP, ADIFF, ANEU, GFR, CBC ####[place] [address] MCH (RBC) [Entitic mass] 30.8 pg Normal 27.0-33.0 [facility] MAIN Comment on above: Performed By: #### B MP, ADIFF, ANEU, GFR, CBC ####[place] [address] MCHC 33.3 G/dL Normal 32.0-36.0 [facility] MAIN Comment on above: Performed By: #### B MP, ADIFF, ANEU, GFR, CBC ####[place] [address] MCV (RBC) [Entitic vol] 92.6 fL Normal 81.0-100.0 [facility] MAIN Comment on above: Performed By: #### B MP, ADIFF, ANEU, GFR, CBC ####[place] [address] Platelet 220 10 3/mcL Normal 150-450 [facility] MAIN Comment on above: Performed By: #### B MP, ADIFF, ANEU, GFR, CBC ####[place] [address] Platelet mean volume (Bld) [Entitic vol] 11.1 fL High 6.4-10.5 [facility] MAIN Comment on above: Performed By: #### B MP, ADIFF, ANEU, GFR, CBC ####[place] [address] RBC 3.60 10 6/mcL Low 4.50-6.00 [facility] MAIN Comment on above: Performed By: #### B MP, ADIFF, ANEU, GFR, CBC ####[place] [address] WBC 9.7 10 3/mcL Normal 4.5-10.8 [facility] MAIN Comment on above: Performed By: #### B MP, ADIFF, ANEU, GFR, CBC ####[place] [address] CDIFPCRon 01-31-2024 Clostridium difficile PCR Negative Normal Negative [facility] MAIN Comment on above: Performed By: #### C DIFPCR ####[place] [address] Clostridium difficile PCR Int Normal [facility] MAIN Comment on above: Result Comment: No t cdB gene DNA detected. Negative test results may occur from improper collection, handling or storage of specimen, technical error, or extremely low levels of target below the limit of detection of the assay.See Below Performed By: #### C DIFPCR ####[place] [address] LABORATORYOrdered By: Milady Bell on 01-31-2024 Clostridium difficile PCR Negative (01/31/24 4:20 AM) Normal Negative Auto Viro/Sero SS Clostridium difficile PCR Int No tcdB gene DNA detected. Negative test results may occur from improper collection, handling or storage of specimen, technical error, or extremely low levels of target below the limit of detection of the assay. Invalid Interpretation Code AH Auto Viro/Sero SS NAon 01-31-2024 Sodium [Moles/Vol] 154 mmol/L High 136-145 [facility] MAIN Comment on above: Performed By: #### N A ####[place] [address] .Auto Diffon 01-30-2024 Basophil, Absolute 0.1 10 3/mcL Normal 0.0-0.3 [facility] MAIN Comment on above: Performed By: #### C BC, ADIFF, CMP, GFR, ANEU, PHOS, MG ####[place] [address] Basophils/100 WBC (Bld) 0.6 % Normal 0.0-2.5 [facility] MAIN Comment on above: Performed By: #### C BC, ADIFF, CMP, GFR, ANEU, PHOS, MG ####[place] [address] Eosinophil, Absolute 0.0 10 3/mcL Normal 0.0-0.7 [facility] MAIN Comment on above: Performed By: #### C BC, ADIFF, CMP, GFR, ANEU, PHOS, MG ####[place] [address] [place] [address] Eosinophils/100 WBC (Bld) 0.3 % Normal 0.0-6.0 [facility] MAIN Comment on above: Performed By: #### C BC, ADIFF, CMP, GFR, ANEU, PHOS, MG ####[address] [address] Lymphocyte, Absolute 0.4 10 3/mcL Low 0.9-4.3 [facility] MAIN Comment on above: Performed By: #### C BC, ADIFF, CMP, GFR, ANEU, PHOS, MG ####[address] [address] Lymphocytes/100 WBC (Bld) 5.1 % Low 20.0-40.0 [facility] MAIN Comment on above: Performed By: #### C BC, ADIFF, CMP, GFR, ANEU, PHOS, MG ####[address] [address] Monocyte, Absolute 0.3 10 3/mcL Normal 0.1-1.4 [facility] MAIN Comment on above: Performed By: #### C BC, ADIFF, CMP, GFR, ANEU, PHOS, MG ####[address] [address] Monocytes/100 WBC (Bld) 2.9 % Normal 2.0-13.0 [facility] MAIN Comment on above: Performed By: #### C BC, ADIFF, CMP, GFR, ANEU, PHOS, MG ####[address] [address] Neutrophils/100 WBC (Bld) 91.1 % High 50.0-75.0 [facility] MAIN Comment on above: Performed By: #### C BC, ADIFF, CMP, GFR, ANEU, PHOS, MG ####[address] [address] .GFRon 01-30-2024 GFR Non- 34 ml/min/1.73sqm Normal [facility] MAIN Comment on above: Result Comment: GFR Population mean for , Non- Americans Ages 20-29 = 116 mL/min/1.73 sq.m. Ages 30-39 = 107 mL/min/1.73 sq.m. Ages 40-49 = 99 mL/min/1.73 sq.m. Ages 50-59 = 93 mL/min/1.73 sq.m. Ages 60-69 = 85 mL/min/1.73 sq.m. Ages 70+ = 75 mL/min/1.73 sq.m.Chronic Kidney Disease: Less than 60 mL/min/1.73 square metersEnd Stage Renal Disease: Less than 15 mL/min/1.73 square meters Performed By: #### C BC, ADIFF, CMP, GFR, ANEU, PHOS, MG ####[place] [address] [place] [address] GFR 41 ml/min/1.73sqm Normal [facility] MAIN Comment on above: Result Comment: GFR Population mean for , Non- Americans Ages 20-29 = 116 mL/min/1.73 sq.m. Ages 30-39 = 107 mL/min/1.73 sq.m. Ages 40-49 = 99 mL/min/1.73 sq.m. Ages 50-59 = 93 mL/min/1.73 sq.m. Ages 60-69 = 85 mL/min/1.73 sq.m. Ages 70+ = 75 mL/min/1.73 sq.m.Chronic Kidney Disease: Less than 60 mL/min/1.73 square metersEnd Stage Renal Disease: Less than 15 mL/min/1.73 square meters Performed By: #### C BC, ADIFF, CMP, GFR, ANEU, PHOS, MG ####[address] [address] .NEUABSon 01-30-2024 Neutrophil, Absolute 8.0 10 3/mcL Normal 2.3-8.1 [facility] MAIN Comment on above: Performed By: #### C BC, ADIFF, CMP, GFR, ANEU, PHOS, MG ####[address] [address] BGon 01-30-2024 Base excess Calc (Bld) [Moles/Vol] -0.4000 mmol/L Normal [facility] MAIN Comment on above: Performed By: #### B G ####[address] [address] CO2 [Moles/Vol] 26.5 mmol/L Normal 22.0-30.0 [facility] MAIN Comment on above: Performed By: #### B G ####[address] [address] HCO3 (Bld) [Moles/Vol] 25.1 mmol/L Normal 21.0-29.0 [facility] MAIN Comment on above: Performed By: #### B G ####[place] [id number] Oxygen (Bld) [Partial pressure] 57.1 mm[Hg] Low 74.0-108.0 [facility] MAIN Comment on above: Performed By: #### B G ####[place] [address] Oxygen saturation in Blood 88.9 % Low 92.0-96.0 [facility] MAIN Comment on above: Performed By: #### B G ####[place] [address] pCO2 44.9 mmHg Normal 32.0-46.0 [facility] MAIN Comment on above: Performed By: #### B G ####[address] [address] pH (Bld) 7.366 [pH] Low 7.380-7.46 0 [facility] MAIN Comment on above: Performed By: #### B G ####[address] [address] Base excess Calc (Bld) [Moles/Vol] -2.6000 mmol/L Normal [facility] MAIN Comment on above: Performed By: #### B G ####[address] [address] CO2 [Moles/Vol] 22.7 mmol/L Normal 22.0-30.0 [facility] MAIN Comment on above: Performed By: #### B G ####[address] [address] HCO3 (Bld) [Moles/Vol] 21.6 mmol/L Normal 21.0-29.0 [facility] MAIN Comment on above: Performed By: #### B G ####[place] [address] Oxygen (Bld) [Partial pressure] 71.7 mm[Hg] Low 74.0-108.0 [facility] MAIN Comment on above: Performed By: #### B G ####[place] [address] Oxygen saturation in Blood 93.6 % Normal 92.0-96.0 [facility] MAIN Comment on above: Performed By: #### B G ####[place] [address] pCO2 35.4 mmHg Normal 32.0-46.0 [facility] MAIN Comment on above: Performed By: #### B G ####[place] [address] pH (Bld) 7.404 [pH] Normal 7.380-7.46 0 [facility] MAIN Comment on above: Performed By: #### B G ####[place] [address] CBCon 01-30-2024 Erythrocyte distribution width (RBC) [Ratio] 14.3 % Normal 11.5-15.5 [facility] MAIN Comment on above: Performed By: #### C BC, ADIFF, CMP, GFR, ANEU, PHOS, MG ####[place] [address] Hematocrit (Bld) [Volume fraction] 33.1 % Low 40.0-52.0 [facility] MAIN Comment on above: Performed By: #### C BC, ADIFF, CMP, GFR, ANEU, PHOS, MG ####[place] [address] Hgb 10.9 G/dL Low 13.0-17.5 [facility] MAIN Comment on above: Performed By: #### C BC, ADIFF, CMP, GFR, ANEU, PHOS, MG ####[place] [address] MCH (RBC) [Entitic mass] 30.7 pg Normal 27.0-33.0 [facility] MAIN Comment on above: Performed By: #### C BC, ADIFF, CMP, GFR, ANEU, PHOS, MG ####[place] [address] MCHC 32.9 G/dL Normal 32.0-36.0 [facility] MAIN Comment on above: Performed By: #### C BC, ADIFF, CMP, GFR, ANEU, PHOS, MG ####[place] [address] MCV (RBC) [Entitic vol] 93.2 fL Normal 81.0-100.0 [facility] MAIN Comment on above: Performed By: #### C BC, ADIFF, CMP, GFR, ANEU, PHOS, MG ####[place] [address] Platelet 177 10 3/mcL Normal 150-450 [facility] MAIN Comment on above: Performed By: #### C BC, ADIFF, CMP, GFR, ANEU, PHOS, MG ####[place] [address] Platelet mean volume (Bld) [Entitic vol] 11.0 fL High 6.4-10.5 [facility] MAIN Comment on above: Performed By: #### C BC, ADIFF, CMP, GFR, ANEU, PHOS, MG ####[place] [address] RBC 3.56 10 6/mcL Low 4.50-6.00 [facility] MAIN Comment on above: Performed By: #### C BC, ADIFF, CMP, GFR, ANEU, PHOS, MG ####[place] [address] WBC 8.8 10 3/mcL Normal 4.5-10.8 [facility] MAIN Comment on above: Performed By: #### C BC, ADIFF, CMP, GFR, ANEU, PHOS, MG ####[place] [address] CMPon 01-30-2024 Albumin Level 1.6 G/dL Low 3.2-4.8 [facility] MAIN Comment on above: Performed By: #### C BC, ADIFF, CMP, GFR, ANEU, PHOS, MG ####[place] [address] Albumin/Globulin [Mass ratio] 0.4 {ratio} Low 0.9-1.6 [facility] MAIN Comment on above: Performed By: #### C BC, ADIFF, CMP, GFR, ANEU, PHOS, MG ####[address] [address] ALP [Catalytic activity/Vol] 66 U/L Normal 38-126 [facility] MAIN Comment on above: Performed By: #### C BC, ADIFF, CMP, GFR, ANEU, PHOS, MG ####[place] [address] ALT [Catalytic activity/Vol] 38 U/L Normal 12-55 [facility] MAIN Comment on above: Performed By: #### C BC, ADIFF, CMP, GFR, ANEU, PHOS, MG ####[place] [address] AST [Catalytic activity/Vol] 69 U/L High 8-34 [facility] MAIN Comment on above: Performed By: #### C BC, ADIFF, CMP, GFR, ANEU, PHOS, MG ####[place] [address] Bili Total 0.90 mg/dL Normal 0.20-1.20 [facility] MAIN Comment on above: Result Comment: Use of this assay is not recommended for patients undergoing treatment with eltrombopag due to the potential for falsely elevated results. Performed By: #### C BC, ADIFF, CMP, GFR, ANEU, PHOS, MG ####[place] [address] BUN/Creatinine Ratio 43.1 ratio High 10.0-22.0 [facility] MAIN Comment on above: Performed By: #### C BC, ADIFF, CMP, GFR, ANEU, PHOS, MG ####[place] [id number] Calcium [Mass/Vol] 8.1 mg/dL Low 8.7-10.4 [facility] MAIN Comment on above: Performed By: #### C BC, ADIFF, CMP, GFR, ANEU, PHOS, MG ####[address] [address] Chloride [Moles/Vol] 118 mmol/L High 98-110 [facility] MAIN Comment on above: Performed By: #### C BC, ADIFF, CMP, GFR, ANEU, PHOS, MG ####[address] [address] CO2 [Moles/Vol] 26 mmol/L Normal 22-32 [facility] MAIN Comment on above: Performed By: #### C BC, ADIFF, CMP, GFR, ANEU, PHOS, MG ####[address] [address] Creatinine [Mass/Vol] 1.97 mg/dL High 0.60-1.40 [facility] MAIN Comment on above: Result Comment: Test ing performed on Zeppelin analyzer using enzymatic creatinine methodology. Performed By: #### C BC, ADIFF, CMP, GFR, ANEU, PHOS, MG ####[place] [id number] Electrolyte Balance 10.0 mEq/L Normal 4.0-15.0 [facility] MAIN Comment on above: Performed By: #### C BC, ADIFF, CMP, GFR, ANEU, PHOS, MG ####[address] [address] Globulin 4.3 G/dL High 1.5-3.8 [facility] MAIN Comment on above: Performed By: #### C BC, ADIFF, CMP, GFR, ANEU, PHOS, MG ####[address] [address] Glucose [Mass/Vol] 292 mg/dL High 82-115 [facility] MAIN Comment on above: Performed By: #### C BC, ADIFF, CMP, GFR, ANEU, PHOS, MG ####[place] [id number] Potassium [Moles/Vol] 3.4 mmol/L Low 3.5-5.0 [facility] MAIN Comment on above: Performed By: #### C BC, ADIFF, CMP, GFR, ANEU, PHOS, MG ####[place] [address] [place] [address] Sodium [Moles/Vol] 154 mmol/L High 136-145 [facility] MAIN Comment on above: Performed By: #### C BC, ADIFF, CMP, GFR, ANEU, PHOS, MG ####[place] [address] [place] [address] Total Protein 5.9 G/dL Normal 5.7-8.2 [facility] MAIN Comment on above: Performed By: #### C BC, ADIFF, CMP, GFR, ANEU, PHOS, MG ####[place] [address] [place] [address] Urea nitrogen [Mass/Vol] 85.0 mg/dL High 8.0-22.0 [facility] MAIN Comment on above: Performed By: #### C BC, ADIFF, CMP, GFR, ANEU, PHOS, MG ####[place] [address] [place] [address] CRESPon 01-30-2024 CRESP Normal [facility] MAIN LABORATORYOrdered By: Deysi Oneal on 01-30-2024 Base Excess -0.4 mmol/L Invalid Interpretation Code Main Rapid Comm SS CO2 [Moles/Vol] 26.5 mmol/L Normal 22.0 - 30.0 mmol/L Main Rapid Comm SS HCO3 (Bld) [Moles/Vol] 25.1 mmol/L Normal 21.0 - 29.0 mmol/L Main Rapid Comm SS Oxygen (Bld) [Partial pressure] 57.1 mm[Hg] Low 74.0 - 108.0 mm Hg Main Rapid Comm SS pCO2 44.9 mm[Hg] Normal 32.0 - 46.0 mm Hg Main Rapid Comm SS pH (Bld) 7.366 [pH] Low 7.380 - 7.460 Main Rapid Comm SS LABORATORYOrdered By: Vladislav Gonzales on 01-30-2024 Blood Glucose Interventions Administered agent to decrease blood sugar (01/30/24 9:38 AM) [facility] LABORATORYOrdered By: SYSTEM SYSTEM on 01-30-2024 Albumin BCP dye [Mass/Vol] 1.6 G/dL Low 3.2 - 4.8 G/dL ADM SS Albumin/Globulin [Mass ratio] 0.4 {ratio} Low 0.9 - 1.6 ratio AH ADM SS ALP [Catalytic activity/Vol] 66 U/L Normal 38 - 126 U/L ADM SS ALT No additional P-5'-P [Catalytic activity/Vol] 38 U/L Normal 12 - 55 U/L ADM SS AST [Catalytic activity/Vol] 69 U/L High 8 - 34 U/L ADM SS Bilirubin [Mass/Vol] 0.90 mg/dL Normal 0.20 - 1.20 mg/dL ADM SS Comment on above: Interpretive Data: U se of this assay is not recommended for patients undergoing treatment with eltrombopag due to the potential for falsely elevated results. Globulin 4.3 G/dL High 1.5 - 3.8 G/dL ADM SS Protein [Mass/Vol] 5.9 G/dL Normal 5.7 - 8.2 G/dL ADM SS LABORATORYOrdered By: Will Frost on 01-30-2024 Base Excess -2.6 mmol/L Invalid Interpretation Code AH Main Rapid Comm SS CO2 [Moles/Vol] 22.7 mmol/L Normal 22.0 - 30.0 mmol/L AH Main Rapid Comm SS HCO3 (Bld) [Moles/Vol] 21.6 mmol/L Normal 21.0 - 29.0 mmol/L AH Main Rapid Comm SS Oxygen (Bld) [Partial pressure] 71.7 mm[Hg] Low 74.0 - 108.0 mm Hg AH Main Rapid Comm SS pCO2 35.4 mm[Hg] Normal 32.0 - 46.0 mm Hg Main Rapid Comm SS pH (Bld) 7.404 [pH] Normal 7.380 - 7.460 Main Rapid Comm SS MGon 01-30-2024 Magnesium [Mass/Vol] 1.9 mg/dL Normal 1.6-2.4 [facility] MAIN Comment on above: Performed By: #### C BC, ADIFF, CMP, GFR, ANEU, PHOS, MG ####[place] [address] PHOSon 01-30-2024 Phosphate [Mass/Vol] 3.8 mg/dL Normal 2.4-5.1 [facility] MAIN Comment on above: Result Comment: No te - New Reference Range in effect 19 Performed By: #### C BC, ADIFF, CMP, GFR, ANEU, PHOS, MG ####[facility] [place] [id number] XR CHEST 1 VIEWon 01-30-2024 XR CHEST [address] [facility] XR CHEST [address] [facility] .Auto Diffon 01-29-2024 Basophil, Absolute 0.0 10 3/mcL Normal 0.0-0.3 [facility] MA[facility] Comment on above: Performed By: #### C BC, ANEU, ADIFF ####[address] [address] Basophils/100 WBC (Bld) 0.3 % Normal 0.0-2.5 [facility] MAIN Comment on above: Performed By: #### C BC, ANEU, ADIFF ####[address] [address] Eosinophil, Absolute 0.0 10 3/mcL Normal 0.0-0.7 [facility] MAIN Comment on above: Performed By: #### C BC, ANEU, ADIFF ####[address] [address] Eosinophils/100 WBC (Bld) 0.4 % Normal 0.0-6.0 [facility] Comment on above: Performed By: #### C BC, ANEU, ADIFF ####[address] [address] Lymphocyte, Absolute 0.6 10 3/mcL Low 0.9-4.3 [facility] MAIN Comment on above: Performed By: #### C BC, ANEU, ADIFF ####[address] [address] Lymphocytes/100 WBC (Bld) 8.5 % Low 20.0-40.0 [facility] Comment on above: Performed By: #### C BC, ANEU, ADIFF ####[address] [address] Monocyte, Absolute 0.3 10 3/mcL Normal 0.1-1.4 [facility] Comment on above: Performed By: #### C BC, ANEU, ADIFF ####[facility] [place] [address] Monocytes/100 WBC (Bld) 3.7 % Normal 2.0-13.0 [facility] MA[facility] Comment on above: Performed By: #### C BC, ANEU, ADIFF ####[facility] [place] [address] Neutrophils/100 WBC (Bld) 87.1 % High 50.0-75.0 [facility] Comment on above: Performed By: #### C BC, ANEU, ADIFF ####[facility] [place] [address] .GFRon 01-29-2024 GFR Non- 29 ml/min/1.73sqm [facility] MAIN Comment on above: Result Comment: GFR Population mean for , Non- Americans Ages 20-29 = 116 mL/min/1.73 sq.m. Ages 30-39 = 107 mL/min/1.73 sq.m. Ages 40-49 = 99 mL/min/1.73 sq.m. Ages 50-59 = 93 mL/min/1.73 sq.m. Ages 60-69 = 85 mL/min/1.73 sq.m. Ages 70+ = 75 mL/min/1.73 sq.m.Chronic Kidney Disease: Less than 60 mL/min/1.73 square metersEnd Stage Renal Disease: Less than 15 mL/min/1.73 square meters Performed By: #### R FP, MG, GFR ####[facility] [place] [address] GFR 35 ml/min/1.73sqm [facility] MAIN Comment on above: Result Comment: GFR Population mean for , Non- Americans Ages 20-29 = 116 mL/min/1.73 sq.m. Ages 30-39 = 107 mL/min/1.73 sq.m. Ages 40-49 = 99 mL/min/1.73 sq.m. Ages 50-59 = 93 mL/min/1.73 sq.m. Ages 60-69 = 85 mL/min/1.73 sq.m. Ages 70+ = 75 mL/min/1.73 sq.m.Chronic Kidney Disease: Less than 60 mL/min/1.73 square metersEnd Stage Renal Disease: Less than 15 mL/min/1.73 square meters Performed By: #### R FP, MG, GFR ####[address] [address] GFR 33 ml/min/1.73sqm [facility] MAIN Comment on above: Result Comment: GFR Population mean for , Non- Americans Ages 20-29 = 116 mL/min/1.73 sq.m. Ages 30-39 = 107 mL/min/1.73 sq.m. Ages 40-49 = 99 mL/min/1.73 sq.m. Ages 50-59 = 93 mL/min/1.73 sq.m. Ages 60-69 = 85 mL/min/1.73 sq.m. Ages 70+ = 75 mL/min/1.73 sq.m.Chronic Kidney Disease: Less than 60 mL/min/1.73 square metersEnd Stage Renal Disease: Less than 15 mL/min/1.73 square meters Performed By: #### G FR, PHOS, LD, CK, CHOL, CMP, PRO, URIC, MG, TRIG, PRALB ####[address] [address] GFR Non- 28 ml/min/1.73sqm [facility] MAIN Comment on above: Result Comment: GFR Population mean for , Non- Americans Ages 20-29 = 116 mL/min/1.73 sq.m. Ages 30-39 = 107 mL/min/1.73 sq.m. Ages 40-49 = 99 mL/min/1.73 sq.m. Ages 50-59 = 93 mL/min/1.73 sq.m. Ages 60-69 = 85 mL/min/1.73 sq.m. Ages 70+ = 75 mL/min/1.73 sq.m.Chronic Kidney Disease: Less than 60 mL/min/1.73 square metersEnd Stage Renal Disease: Less than 15 mL/min/1.73 square meters Performed By: #### G FR, PHOS, LD, CK, CHOL, CMP, PRO, URIC, MG, TRIG, PRALB ####[place] [address] .NEUABSon 01-29-2024 Neutrophil, Absolute 6.7 10 3/mcL Normal 2.3-8.1 [facility] Comment on above: Performed By: #### C BCAMELIA, ADIFF ####[place] [address] CBCon 01-29-2024 Erythrocyte distribution width (RBC) [Ratio] 14.4 % Normal 11.5-15.5 [facility] Comment on above: Performed By: #### C AMELIA WINCHESTER, ADIFF ####[place] [address] Hematocrit (Bld) [Volume fraction] 31.5 % Low 40.0-52.0 [facility] Comment on above: Performed By: #### C AMELIA WINCHESTER, ADIFF ####[place] [address] Hgb 10.5 G/dL Low 13.0-17.5 [facility] Comment on above: Performed By: #### C AMELIA WINCHESTER, ADIFF ####[place] [address] MCH (RBC) [Entitic mass] 30.9 pg Normal 27.0-33.0 [facility] Comment on above: Performed By: #### C BC ANEU, ADIFF ####[place] [address] MCHC 33.2 G/dL Normal 32.0-36.0 [facility] Comment on above: Performed By: #### C BC ANEU, ADIFF ####[place] [address] MCV (RBC) [Entitic vol] 93.2 fL Normal 81.0-100.0 [facility] Comment on above: Performed By: #### C BC ANEU, ADIFF ####[place] [address] Platelet 155 10 3/mcL Normal 150-450 [facility] Comment on above: Performed By: #### C BC ANEU, ADIFF ####[address] [address] Platelet mean volume (Bld) [Entitic vol] 10.8 fL High 6.4-10.5 [facility] Comment on above: Performed By: #### C BC ANEU, ADIFF ####[address] [address] RBC 3.38 10 6/mcL Low 4.50-6.00 [facility] Comment on above: Performed By: #### C BC ANEU, ADIFF ####[address] [address] WBC 7.6 10 3/mcL Normal 4.5-10.8 [facility] Comment on above: Performed By: #### C BC ANEU, ADIFF ####[place] [address] CHOLon 01-29-2024 Cholesterol [Mass/Vol] 103 mg/dL Normal 50-199 [facility] Comment on above: Result Comment: Chol esterol Reference Interval:Less than 200 [id number] Borderline high [id number] and above High risk Performed By: #### G FR, PHOS, LD, CK, CHOL, CMP, PRO, URIC, MG, TRIG, PRALB ####[place] [id number] CKon 01-29-2024 CK [Catalytic activity/Vol] 240 U/L High 7-185 [facility] Comment on above: Performed By: #### G FR, PHOS, LD, CK, CHOL, CMP, PRO, URIC, MG, TRIG, PRALB ####[place] [id number] CMPon 01-29-2024 Albumin Level 1.5 G/dL Low 3.2-4.8 [facility] Comment on above: Performed By: #### G FR, PHOS, LD, CK, CHOL, CMP, PRO, URIC, MG, TRIG, PRALB ####[place] [address] Albumin/Globulin [Mass ratio] 0.4 {ratio} Low 0.9-1.6 [facility] Comment on above: Performed By: #### G FR, PHOS, LD, CK, CHOL, CMP, PRO, URIC, MG, TRIG, PRALB ####[place] [address] ALP [Catalytic activity/Vol] 59 U/L Normal 38-126 [facility] Comment on above: Performed By: #### G FR, PHOS, LD, CK, CHOL, CMP, PRO, URIC, MG, TRIG, PRALB ####[place] [address] ALT [Catalytic activity/Vol] 31 U/L Normal 12-55 [facility] Comment on above: Performed By: #### G FR, PHOS, LD, CK, CHOL, CMP, PRO, URIC, MG, TRIG, PRALB ####[place] [address] AST [Catalytic activity/Vol] 46 U/L High 8-34 [facility] Comment on above: Performed By: #### G FR, PHOS, LD, CK, CHOL, CMP, PRO, URIC, MG, TRIG, PRALB ####[place] [address] Bili Total 1.10 mg/dL Normal 0.20-1.20 [facility] Comment on above: Result Comment: Use of this assay is not recommended for patients undergoing treatment with eltrombopag due to the potential for falsely elevated results. Performed By: #### G FR, PHOS, LD, CK, CHOL, CMP, PRO, URIC, MG, TRIG, PRALB ####[place] [address] BUN/Creatinine Ratio 41.5 ratio High 10.0-22.0 [facility] Comment on above: Performed By: #### G FR, PHOS, LD, CK, CHOL, CMP, PRO, URIC, MG, TRIG, PRALB ####[place] [address] Calcium [Mass/Vol] 8.1 mg/dL Low 8.7-10.4 [facility] Comment on above: Performed By: #### G FR, PHOS, LD, CK, CHOL, CMP, PRO, URIC, MG, TRIG, PRALB ####[address] [address] Chloride [Moles/Vol] 120 mmol/L High 98-110 [facility] Comment on above: Performed By: #### G FR, PHOS, LD, CK, CHOL, CMP, PRO, URIC, MG, TRIG, PRALB ####[address] [address] CO2 [Moles/Vol] 25 mmol/L Normal 22-32 [facility] Comment on above: Performed By: #### G FR, PHOS, LD, CK, CHOL, CMP, PRO, URIC, MG, TRIG, PRALB ####[address] [address] Creatinine [Mass/Vol] 2.34 mg/dL High 0.60-1.40 [facility] Comment on above: Result Comment: Test ing performed on Zeppelin analyzer using enzymatic creatinine methodology. Performed By: #### G FR, PHOS, LD, CK, CHOL, CMP, PRO, URIC, MG, TRIG, PRALB ####[address] [address] Electrolyte Balance 13.0 mEq/L Normal 4.0-15.0 [facility] Comment on above: Performed By: #### G FR, PHOS, LD, CK, CHOL, CMP, PRO, URIC, MG, TRIG, PRALB ####[address] [address] Globulin 4.1 G/dL High 1.5-3.8 [facility] Comment on above: Performed By: #### G FR, PHOS, LD, CK, CHOL, CMP, PRO, URIC, MG, TRIG, PRALB ####[address] [address] Glucose [Mass/Vol] 216 mg/dL High 82-115 [facility] Comment on above: Performed By: #### G FR, PHOS, LD, CK, CHOL, CMP, PRO, URIC, MG, TRIG, PRALB ####[address] [address] Potassium [Moles/Vol] 3.6 mmol/L Normal 3.5-5.0 [facility] Comment on above: Performed By: #### G FR, PHOS, LD, CK, CHOL, CMP, PRO, URIC, MG, TRIG, PRALB ####[address] [address] Sodium [Moles/Vol] 158 mmol/L High 136-145 [facility] Comment on above: Performed By: #### G FR, PHOS, LD, CK, CHOL, CMP, PRO, URIC, MG, TRIG, PRALB ####[address] [address] Total Protein 5.6 G/dL Low 5.7-8.2 [facility] Comment on above: Performed By: #### G FR, PHOS, LD, CK, CHOL, CMP, PRO, URIC, MG, TRIG, PRALB ####[address] [address] Urea nitrogen [Mass/Vol] 97.0 mg/dL High 8.0-22.0 [facility] Comment on above: Performed By: #### G FR, PHOS, LD, CK, CHOL, CMP, PRO, URIC, MG, TRIG, PRALB ####[address] [address] CRESPon 01-29-2024 CRESP Normal [facility] LABORATORYOrdered By: Frank Yadav on 01-29-2024 Osmolality (U) [Osmolality] 414 mosm/kg Normal 390 - 1090 mOsm/kg Manual Chem SS LABORATORYOrdered By: SYSTEM SYSTEM on 01-29-2024 Albumin/Globulin [Mass ratio] 0.4 {ratio} Low 0.9 - 1.6 ratio AH ADM SS ALP [Catalytic activity/Vol] 59 U/L Normal 38 - 126 U/L ADM SS ALT No additional P-5'-P [Catalytic activity/Vol] 31 U/L Normal 12 - 55 U/L ADM SS AST [Catalytic activity/Vol] 46 U/L High 8 - 34 U/L ADM SS Bilirubin [Mass/Vol] 1.10 mg/dL Normal 0.20 - 1.20 mg/dL ADM Comment on above: Interpretive Data: U se of this assay is not recommended for patients undergoing treatment with eltrombopag due to the potential for falsely elevated results. Cholesterol [Mass/Vol] 103 mg/dL Normal 50 - 199 mg/dL ADM Comment on above: Interpretive Data: C holesterol Reference Interval: Less than 200 Desirable 200-239 Borderline high risk 240 and above High risk CK [Catalytic activity/Vol] 240 U/L High 7 - 185 U/L ADM SS Globulin 4.1 G/dL High 1.5 - 3.8 G/dL ADM LDH Lactate to pyruvate reaction [Catalytic activity/Vol] 263 1 High 120 - 246 U/L ADM Prealbumin [Mass/Vol] 6.7 mg/dL Low 10.0 - 40.0 mg/dL ADM Comment on above: Interpretive Data: * *Note - New Reference Range in effect 19 Protein [Mass/Vol] 5.6 G/dL Low 5.7 - 8.2 G/dL ADM PT Coag (PPP) [Time] 11.7 s Normal 9.0 - 1 4.4 [facility] Comment on above: Interpretive Data: E ffective 10/14/07, Protime results may be affected by some antibiotics (i.e. Ciprofloxacin, Azithromycin, Bactrim) which may potentiate the action of oral anticoagulants, with further increases in Protime/INR. PT International Ratio 1.0 ratio Invalid Interpretation Code [facility] Comment on above: Interpretive Data: T eleni [place] (CHEST, 1992, 102:312S-25S) recommended therapeutic range for oral anticoagulant therapy is: LOW RISK: Prophylaxis of venous thrombosis INR: 2.0-3.0 Treatment of pulmonary embolism 2.0-3.0 Prevention of systemic embolism 2.0-3.0 HIGH RISK: Mechanical prosthetic valves 2.5-3.5 Triglyceride [Mass/Vol] 178 mg/dL High 3 - 149 mg/dL ADM SS Uric Acid Lvl 6.5 mg/dL Normal 3.7 - 9.2 mg/dL AH ADM SS Comment on above: Interpretive Data: * *Note - New Reference Range in effect 19 LDHon 01-29-2024 LDH 263 U/L High 120-246 [facility] Comment on above: Performed By: #### G FR, PHOS, LD, CK, CHOL, CMP, PRO, URIC, MG, TRIG, PRALB ####[address] [address] MGon 01-29-2024 Magnesium [Mass/Vol] 2.2 mg/dL Normal 1.6-2.4 [facility] Comment on above: Performed By: #### R FP, MG, GFR ####[address] [address] Magnesium [Mass/Vol] 2.3 mg/dL Normal 1.6-2.4 [facility] Comment on above: Performed By: #### G FR, PHOS, LD, CK, CHOL, CMP, PRO, URIC, MG, TRIG, PRALB ####[address] [address] OSMOUon 01-29-2024 U Osmolality 414 mOsm/kg Normal 390-1090 [facility] Comment on above: Performed By: #### O SMOU ####[address] [address] PHOSon 01-29-2024 Phosphate [Mass/Vol] 4.4 mg/dL Normal 2.4-5.1 [facility] Comment on above: Result Comment: No te - New Reference Range in effect 19 Performed By: #### G FR, PHOS, LD, CK, CHOL, CMP, PRO, URIC, MG, TRIG, PRALB ####[address] [address] PRALBon 01-29-2024 Prealbumin [Mass/Vol] 6.7 mg/dL Low 10.0-40.0 [facility] Comment on above: Result Comment: No te - New Reference Range in effect 19 Performed By: #### G FR, PHOS, LD, CK, CHOL, CMP, PRO, URIC, MG, TRIG, PRALB ####[place] [id number] PROon 01-29-2024 INR Coag (PPP) [Relative time] 1.0 {INR} Normal [facility] Comment on above: Result Comment: The [place] [employer] (CHEST, 1991, 102:312S-25S)recommended therapeutic range for oral anticoagulant therapy is:LOW RISK: Prophylaxis of venous thrombosis INR: 2.0-3.0 Treatment of pulmonary embolism 2.0-3.0 Prevention of systemic embolism 2.0-3.0HIGH RISK: Mechanical prosthetic valves 2.5-3.5 Performed By: #### G FR, PHOS, LD, CK, CHOL, CMP, PRO, URIC, MG, TRIG, PRALB ####[place] [address] PT Coag (PPP) [Time] 11.7 s Normal 9.0-14.4 [facility] Comment on above: Result Comment: Effe ctive 10/14/07, Protime results may be affected by some antibiotics (i.e. Ciprofloxacin, Azithromycin, Bactrim) which may potentiate the action of oral anticoagulants, with further increases in Protime/INR. Performed By: #### G FR, PHOS, LD, CK, CHOL, CMP, PRO, URIC, MG, TRIG, PRALB ####[address] 01-29-2024 Albumin Level 1.4 G/dL Low 3.2-4.8 [facility] Comment on above: Performed By: #### R FP, MG, GFR ####[place] [address] BUN/Creatinine Ratio 42.3 ratio High 10.0-22.0 [facility] Comment on above: Performed By: #### R FP, MG, GFR ####[place] [address] Calcium [Mass/Vol] 8.1 mg/dL Low 8.7-10.4 [facility] Comment on above: Performed By: #### R FP, MG, GFR ####[address] [address] Chloride [Moles/Vol] 120 mmol/L High 98-110 [facility] Comment on above: Performed By: #### R FP, MG, GFR ####[address] [address] CO2 [Moles/Vol] 24 mmol/L Normal 22-32 [facility] Comment on above: Performed By: #### R FP, MG, GFR ####[address] [address] Creatinine [Mass/Vol] 2.22 mg/dL High 0.60-1.40 [facility] Comment on above: Result Comment: Test ing performed on Zeppelin analyzer using enzymatic creatinine methodology. Performed By: #### R FP, MG, GFR ####[address] [address] Electrolyte Balance 14.0 mEq/L Normal 4.0-15.0 [facility] Comment on above: Performed By: #### R FP, MG, GFR ####[address] [address] Glucose [Mass/Vol] 250 mg/dL High 82-115 [facility] Comment on above: Performed By: #### R FP, MG, GFR ####[address] [address] Phosphate [Mass/Vol] 3.1 mg/dL Normal 2.4-5.1 [facility] Comment on above: Result Comment: No te - New Reference Range in effect 19 Performed By: #### R FP, MG, GFR ####[address] [address] Potassium [Moles/Vol] 3.0 mmol/L Low 3.5-5.0 [facility] Comment on above: Performed By: #### R FP, MG, GFR ####[address] [address] Sodium [Moles/Vol] 158 mmol/L High 136-145 [facility] Comment on above: Performed By: #### R FP, MG, GFR ####[place] [address] [address] [place] [address] Urea nitrogen [Mass/Vol] 94.0 mg/dL High 8.0-22.0 [facility] Comment on above: Performed By: #### R FP, MG, GFR ####[place] [address] [address] [place] [address] TRIGon 01-29-2024 Triglyceride [Mass/Vol] 178 mg/dL High 3-149 [facility] Comment on above: Performed By: #### G FR, PHOS, LD, CK, CHOL, CMP, PRO, URIC, MG, TRIG, PRALB ####[place] [address] [place] [address] URICon 01-29-2024 Uric Acid Lvl 6.5 mg/dL Normal 3.7-9.2 [facility] Comment on above: Result Comment: No te - New Reference Range in effect 19 Performed By: #### G FR, PHOS, LD, CK, CHOL, CMP, PRO, URIC, MG, TRIG, PRALB ####[place] [address] XR CHEST 1 VIEWon 01-29-2024 XR CHEST [address] [facility] XR CHEST [address] [facility] .GFRon 01-28-2024 GFR 35 ml/min/1.73sqm Normal [facility] Comment on above: Result Comment: GFR Population mean for , Non- Americans Ages 20-29 = 116 mL/min/1.73 sq.m. Ages 30-39 = 107 mL/min/1.73 sq.m. Ages 40-49 = 99 mL/min/1.73 sq.m. Ages 50-59 = 93 mL/min/1.73 sq.m. Ages 60-69 = 85 mL/min/1.73 sq.m. Ages 70+ = 75 mL/min/1.73 sq.m.Chronic Kidney Disease: Less than 60 mL/min/1.73 square metersEnd Stage Renal Disease: Less than 15 mL/min/1.73 square meters Performed By: #### M G, RFP, GFR ####[place] [address] GFR Non- 29 ml/min/1.73sqm [facility] Comment on above: Result Comment: GFR Population mean for , Non- Americans Ages 20-29 = 116 mL/min/1.73 sq.m. Ages 30-39 = 107 mL/min/1.73 sq.m. Ages 40-49 = 99 mL/min/1.73 sq.m. Ages 50-59 = 93 mL/min/1.73 sq.m. Ages 60-69 = 85 mL/min/1.73 sq.m. Ages 70+ = 75 mL/min/1.73 sq.m.Chronic Kidney Disease: Less than 60 mL/min/1.73 square metersEnd Stage Renal Disease: Less than 15 mL/min/1.73 square meters Performed By: #### M G, RFP, GFR ####[place] [address] GFR 34 ml/min/1.73sqm [facility] Comment on above: Result Comment: GFR Population mean for , Non- Americans Ages 20-29 = 116 mL/min/1.73 sq.m. Ages 30-39 = 107 mL/min/1.73 sq.m. Ages 40-49 = 99 mL/min/1.73 sq.m. Ages 50-59 = 93 mL/min/1.73 sq.m. Ages 60-69 = 85 mL/min/1.73 sq.m. Ages 70+ = 75 mL/min/1.73 sq.m.Chronic Kidney Disease: Less than 60 mL/min/1.73 square metersEnd Stage Renal Disease: Less than 15 mL/min/1.73 square meters Performed By: #### C BC, GFR, BMP, DIFF, MORPH ####[place] [address] GFR Non- 28 ml/min/1.73sqm [facility] Comment on above: Result Comment: GFR Population mean for , Non- Americans Ages 20-29 = 116 mL/min/1.73 sq.m. Ages 30-39 = 107 mL/min/1.73 sq.m. Ages 40-49 = 99 mL/min/1.73 sq.m. Ages 50-59 = 93 mL/min/1.73 sq.m. Ages 60-69 = 85 mL/min/1.73 sq.m. Ages 70+ = 75 mL/min/1.73 sq.m.Chronic Kidney Disease: Less than 60 mL/min/1.73 square metersEnd Stage Renal Disease: Less than 15 mL/min/1.73 square meters Performed By: #### C BC, GFR, BMP, DIFF, MORPH ####[place] [address] .Manual Diffon 01-28-2024 Bands 3.0 % Normal 0.0-5.0 [facility] Comment on above: Performed By: #### C BC, GFR, BMP, DIFF, MORPH ####[place] [address] Basophil %, Manual 0.0 % Normal 0.0-2.5 [facility] Comment on above: Performed By: #### C BC, GFR, BMP, DIFF, MORPH ####[place] [address] Basophil, Abs Manual 0.0 10 3/mcL Normal 0.0-0.3 [facility] Comment on above: Performed By: #### C BC, GFR, BMP, DIFF, MORPH ####[place] [address] Eosinophil %, Manual 0.0 % Normal 0.0-6.0 [facility] Comment on above: Performed By: #### C BC, GFR, BMP, DIFF, MORPH ####[place] [address] Eosinophil, Abs Manual 0.0 10 3/mcL Normal 0.0-0.7 [facility] Comment on above: Performed By: #### C BC, GFR, BMP, DIFF, MORPH ####[place] [address] Lymphocyte %, Manual 3.0 % Low 20.0-40.0 [facility] Comment on above: Performed By: #### C BC, GFR, BMP, DIFF, MORPH ####[address] [address] Lymphocyte, Abs Manual 0.2 10 3/mcL Low 0.9-4.3 [facility] Comment on above: Performed By: #### C BC, GFR, BMP, DIFF, MORPH ####[place] [address] Monocyte %, Manual 2.0 % Normal 2.0-13.0 [facility] Comment on above: Performed By: #### C BC, GFR, BMP, DIFF, MORPH ####[place] [id number] Monocyte, Abs Manual 0.2 10 3/mcL Normal 0.1-1.4 [facility] Comment on above: Performed By: #### C BC, GFR, BMP, DIFF, MORPH ####[place] [address] Neutrophil %, Manual 92.0 % High 50.0-75.0 [facility] Comment on above: Performed By: #### C BC, GFR, BMP, DIFF, MORPH ####[place] [id number] Neutrophil, Abs Manual 8.1 10 3/mcL Normal 2.3-8.1 [facility] Comment on above: Performed By: #### C BC, GFR, BMP, DIFF, MORPH ####[place] [address] Nucleated RBC 0.0 /100 WBC Normal [facility] Comment on above: Performed By: #### C BC, GFR, BMP, DIFF, MORPH ####[place] [address] .Morphon 01-28-2024 RBC morphology finding Nom (Bld) Normal Normal [facility] Comment on above: Performed By: #### C BC, GFR, BMP, DIFF, MORPH ####[place] [address] Platelet Clumps Few Normal [facility] Comment on above: Performed By: #### C BC, GFR, BMP, DIFF, MORPH ####[place] [address] Platelet Estimate Slt Decreased Normal [facility] Comment on above: Performed By: #### C BC, GFR, BMP, DIFF, MORPH ####[place] [address] [place], [place] [id number] Toxic Gran 1+ Normal [facility] Comment on above: Performed By: #### C BC, GFR, BMP, DIFF, MORPH ####[place] [address] BGon 01-28-2024 Base excess Calc (Bld) [Moles/Vol] 0.2 mmol/L Normal [facility] Comment on above: Performed By: #### B G ####[place] [address] CO2 [Moles/Vol] 25.9 mmol/L Normal 22.0-30.0 [facility] Comment on above: Performed By: #### B G ####[place] [address] HCO3 (Bld) [Moles/Vol] 24.7 mmol/L Normal 21.0-29.0 [facility] Comment on above: Performed By: #### B G ####[place] [address] Oxygen (Bld) [Partial pressure] 62.8 mm[Hg] Low 74.0-108.0 [facility] Comment on above: Performed By: #### B G ####[place] [address] Oxygen saturation in Blood 91.6 % Low 92.0-96.0 [facility] Comment on above: Performed By: #### B G ####[place] [address] pCO2 39.9 mmHg Normal 32.0-46.0 [facility] Comment on above: Performed By: #### B G ####[place] [address] pH (Bld) 7.410 [pH] Normal 7.380-7.46 0 [facility] Comment on above: Performed By: #### B G ####[address] [address] BMPon 01-28-2024 BUN/Creatinine Ratio 38.6 ratio High 10.0-22.0 [facility] Comment on above: Performed By: #### C BC, GFR, BMP, DIFF, MORPH ####[address] [address] Calcium [Mass/Vol] 8.3 mg/dL Low 8.7-10.4 [facility] Comment on above: Performed By: #### C BC, GFR, BMP, DIFF, MORPH ####[place] [id number] Chloride [Moles/Vol] 117 mmol/L High 98-110 [facility] Comment on above: Performed By: #### C BC, GFR, BMP, DIFF, MORPH ####[address] [address] CO2 [Moles/Vol] 29 mmol/L Normal 22-32 [facility] Comment on above: Performed By: #### C BC, GFR, BMP, DIFF, MORPH ####[address] [address] Creatinine [Mass/Vol] 2.28 mg/dL High 0.60-1.40 [facility] Comment on above: Result Comment: Test ing performed on Zeppelin analyzer using enzymatic creatinine methodology. Performed By: #### C BC, GFR, BMP, DIFF, MORPH ####[place] [address] Electrolyte Balance 7.0 mEq/L Normal 4.0-15.0 [facility] Comment on above: Performed By: #### C BC, GFR, BMP, DIFF, MORPH ####[address] [address] Glucose [Mass/Vol] 253 mg/dL High 82-115 [facility] Comment on above: Performed By: #### C BC, GFR, BMP, DIFF, MORPH ####[place] [id number] Potassium [Moles/Vol] 3.7 mmol/L Normal 3.5-5.0 [facility] Comment on above: Performed By: #### C BC, GFR, BMP, DIFF, MORPH ####[place] [address] Sodium [Moles/Vol] 153 mmol/L High 136-145 [facility] Comment on above: Performed By: #### C BC, GFR, BMP, DIFF, MORPH ####[place] [address] Urea nitrogen [Mass/Vol] 88.0 mg/dL High 8.0-22.0 [facility] Comment on above: Performed By: #### C BC, GFR, BMP, DIFF, MORPH ####[place] [address] CBCon 01-28-2024 Platelet 124 10 3/mcL Low 150-450 [facility] Comment on above: Performed By: #### C BC, GFR, BMP, DIFF, MORPH ####[place] [address] Platelet mean volume (Bld) [Entitic vol] 10.6 fL High 6.4-10.5 [facility] Comment on above: Performed By: #### C BC, GFR, BMP, DIFF, MORPH ####[place] [address] Erythrocyte distribution width (RBC) [Ratio] 14.2 % Normal 11.5-15.5 [facility] Comment on above: Performed By: #### C BC, GFR, BMP, DIFF, MORPH ####[place] [address] Hematocrit (Bld) [Volume fraction] 30.2 % Low 40.0-52.0 [facility] Comment on above: Performed By: #### C BC, GFR, BMP, DIFF, MORPH ####[place] [address] Hgb 10.2 G/dL Low 13.0-17.5 [facility] Comment on above: Performed By: #### C BC, GFR, BMP, DIFF, MORPH ####[address] [address] MCH (RBC) [Entitic mass] 31.1 pg Normal 27.0-33.0 [facility] Comment on above: Performed By: #### C BC, GFR, BMP, DIFF, MORPH ####[place] [address] MCHC 33.7 G/dL Normal 32.0-36.0 [facility] Comment on above: Performed By: #### C BC, GFR, BMP, DIFF, MORPH ####[place] [address] MCV (RBC) [Entitic vol] 92.4 fL Normal 81.0-100.0 [facility] Comment on above: Performed By: #### C BC, GFR, BMP, DIFF, MORPH ####[place] [address] RBC 3.27 10 6/mcL Low 4.50-6.00 [facility] Comment on above: Performed By: #### C BC, GFR, BMP, DIFF, MORPH ####[place] [address] WBC 8.6 10 3/mcL Normal 4.5-10.8 [facility] Comment on above: Performed By: #### C BC, GFR, BMP, DIFF, MORPH ####[place] [address] CRESPon 01-28-2024 CRESP Normal [facility] LABORATORYOrdered By: Kalia Meyers on 01-28-2024 Appearance (U) Clear (01/28/24 2:57 PM) Normal Clear Auto Urine SS Bilirubin Ql (U) Negative (01/28/24 2:57 PM) Normal Neg-Trace AH Auto Urine SS Color (U) Yellow (01/28/24 2:57 PM) Normal AH Auto Urine SS Crystals.amorphous LM.HPF (Urine sed) [#/Area] 2 /[HPF] Normal AH Auto Urine SS Glucose Test strip (U) [Mass/Vol] Negative Normal Negative AH Auto Urine SS Hemoglobin Auto test strip (U) [Mass/Vol] Small *ABN* (01/28/24 2:57 PM) Invalid Interpretation Code Neg-Trace AH Auto Urine SS Ketones Ql (U) Negative Normal Neg-Trace AH Auto Ur ine SS UA Coarse Granular Casts Rare /LPF Invalid Interpretation Code AH Auto Urine SS UA Leuk Est Negative (01/28/24 2:57 PM) Normal Negative AH Auto Urine SS UA Nitrite Negative (01/28/24 2:57 PM) Normal Negative AH Auto Urine SS UA pH 5.5 (01/28/24 2:57 PM) Normal 5.0 - 8.0 AH Auto Urine SS UA Protein 30 mg/dL Normal Negative AH Auto Urine SS UA RBC 10-20 /HPF Invalid Interpretation Code 0-2 AH Auto Urine SS UA Spec Grav 1.010 (01/28/24 2:57 PM) Normal 1.006-1.02 9 AH Auto Urine SS UA Specimen Type Delacruz Catheter (01/28/24 2:57 PM) Normal AH Auto Urine SS UA Squam Epithelial 3-5 /HPF Normal 0-20 AH Au to Urine SS UA Urobilinogen 0.2 E.U./dL Normal 0.2-1.0 AH Auto Urine SS WBC LM.HPF (Urine sed) [#/Area] 3-5 /HPF Normal 0-5 AH Auto Urine SS LABORATORYOrdered By: SYSTEM SYSTEM on 01-28-2024 Band form neutrophils/100 WBC (Bld) 3.0 % Normal 0.0 - 5.0 % AH Workflow SS Basophils (Bld) [#/Vol] 0.0 103/mcL Normal 0.0 - 0.3 10^3/mcL AH Workflow SS Basophils/100 WBC (Bld) 0.0 % Normal 0.0 - 2.5 % AH Workflow SS Eosinophils (Bld) [#/Vol] 0.0 103/mcL Normal 0.0 - 0.7 10^3/mcL AH Workflow SS Eosinophils/100 WBC (Bld) 0.0 % Normal 0.0 - 6.0 % AH Workflow SS Lymphocytes (Bld) [#/Vol] 0.2 103/mcL Low 0.9 - 4.3 10^3/mcL AH Workflow SS Lymphocytes/100 WBC (Bld) 3.0 % Low 20.0 - 40.0 % AH Workflow SS Monocytes (Bld) [#/Vol] 0.2 103/mcL Normal 0.1 - 1.4 10^3/mcL Workflow SS Monocytes/100 WBC (Bld) 2.0 % Normal 2.0 - 13.0 % AH Workflow SS Neutrophils (Bld) [#/Vol] 8.1 103/mcL Normal 2.3 - 8.1 10^3/mcL AH Workflow SS Neutrophils/100 WBC (Bld) 92.0 % High 50.0 - 75.0 % AH Workflow SS Nucleated RBC 0.0 /100 WBC Invalid Interpretation Code AH Workflow SS Platelet Clumps Few *NA* (01/28/24 4:11 AM) Invalid Interpretation Code AH Workflow SS Platelets LM Ql (Bld) Slt Decreased *NA* (01/28/24 4:11 AM) Invalid Interpretation Code Workflow SS RBC morphology finding Nom (Bld) Normal *NA* (01/28/24 4:11 AM) Invalid Interpretation Code Workflow SS Toxic granules LM Ql (Bld) 1+ *NA* (01/28/24 4:11 AM) Invalid Interpretation Code Workflow SS MGon 01-28-2024 Magnesium [Mass/Vol] 2.2 mg/dL Normal 1.6-2.4 [facility] Comment on above: Performed By: #### M G, RFP, GFR ####[place] [address] No Panel InformationOrdered By: Sandhya Barnes on 01-28-2024 Maria Alejandra albicans Maria Alejandra albicans [facility] Comment on above: Requests for Mycopla sma, Legionella, Fungi, Mycobacteria, Chlamydia, and Viruses require ordering of those individual tests. Culture Respiratory with Gram Stain Few Klebsiella pneumoniae Refer to previous culture for susceptibility. [id number] collected 01-25-24 Few Maria Alejandra albicans Normal respiratory johnna absent. [facility] Comment on above: Requests for Mycopla sma, Legionella, Fungi, Mycobacteria, Chlamydia, and Viruses require ordering of those individual tests. GS No organisms seen. [facility] Comment on above: Requests for Mycopla sma, Legionella, Fungi, Mycobacteria, Chlamydia, and Viruses require ordering of those individual tests. Klebsiella pneumoniae Klebsiella pneumoniae [facility] Comment on above: Requests for Mycopla sma, Legionella, Fungi, Mycobacteria, Chlamydia, and Viruses require ordering of those individual tests. No Panel Informationon 01-27 Microscopic examination of blood, culture Blood Culture: No Growth at 5 days. [facility] Microscopic examination of blood, culture Blood Culture: No Growth at 5 days. [facility] RFPon 01-28-2024 Albumin Level 1.6 G/dL Low 3.2-4.8 [facility] Comment on above: Performed By: #### Asia G, RFP, GFR ####[address] [address] BUN/Creatinine Ratio 39.8 ratio High 10.0-22.0 [facility] Comment on above: Performed By: #### Asia Coy, RFP, GFR ####[address] [address] Calcium [Mass/Vol] 8.2 mg/dL Low 8.7-10.4 [facility] Comment on above: Performed By: #### Asia Coy, RFP, GFR ####[address] [address] Chloride [Moles/Vol] 118 mmol/L High 98-110 [facility] Comment on above: Performed By: #### Asia Coy, RFP, GFR ####[address] [address] CO2 [Moles/Vol] 24 mmol/L Normal 22-32 [facility] Comment on above: Performed By: #### Asia Coy, RFP, GFR ####[address] [address] Creatinine [Mass/Vol] 2.26 mg/dL High 0.60-1.40 [facility] Comment on above: Result Comment: Test ing performed on Zeppelin analyzer using enzymatic creatinine methodology. Performed By: #### Asia G, RFP, GFR ####[address] [address] Electrolyte Balance 12.0 mEq/L Normal 4.0-15.0 [facility] Comment on above: Performed By: #### Asia G, RFP, GFR ####[address] [address] Glucose [Mass/Vol] 262 mg/dL High 82-115 [facility] Comment on above: Performed By: #### M G, RFP, GFR ####[place] [id number] Phosphate [Mass/Vol] 5.2 mg/dL High 2.4-5.1 [facility] Comment on above: Result Comment: No te - New Reference Range in effect 19 Performed By: #### M G, RFP, GFR ####[place] [address] Potassium [Moles/Vol] 3.8 mmol/L Normal 3.5-5.0 [facility] Comment on above: Performed By: #### M G, RFP, GFR ####[place] [address] Sodium [Moles/Vol] 154 mmol/L High 136-145 [facility] Comment on above: Performed By: #### M G, RFP, GFR ####[place] [address] Urea nitrogen [Mass/Vol] 90.0 mg/dL High 8.0-22.0 [facility] Comment on above: Performed By: #### M G, RFP, GFR ####[place] [address] UAon 01-28-2024 Color (U) Yellow Normal [facility] Comment on above: Performed By: #### U AMIC, UA ####[place] [address] Glucose (U) [Mass/Vol] Negative Normal Negative [facility] Comment on above: Performed By: #### U AMIC, UA ####[place] [address] Ketones Ql (U) Negative Normal Neg-Trace [facility] Comment on above: Performed By: #### U AMIC, UA ####[place] [address] UA Appear Clear Normal Clear [facility] Comment on above: Performed By: #### U AMIC, UA ####[place] [address] UA Blood Small Abnormal Neg-Trace [facility] Comment on above: Performed By: #### U AMIC, UA ####[place] [address] UA Leuk Est Negative Normal Negative [facility] Comment on above: Performed By: #### U AMIC, UA ####[place] [address] UA Nitrite Negative Normal Negative [facility] Comment on above: Performed By: #### U AMIC, UA ####[place] [address] UA pH 5.5 Normal 5.0 - 8.0 [facility] Comment on above: Performed By: #### U AMIC, UA ####[place] [address] UA Protein 30 mg/dL Normal Negative [facility] Comment on above: Performed By: #### U AMIC, UA ####[place] [address] UA Spec Grav 1.010 Normal 1.006-1.[address] [place] [address] MAIN Comment on above: Performed By: #### U AMIC, UA ####[place] [address] UA Specimen Type Delacruz Catheter Normal [facility] Comment on above: Performed By: #### U AMIC, UA ####[place] [address] UA Urobilinogen 0.2 E.U./dL Normal 0.2-1.0 [facility] Comment on above: Performed By: #### U AMIC, UA ####[place] [address] Urobilinogen (U) [Mass/Vol] Negative Normal Neg-Trace [facility] Comment on above: Performed By: #### U AMIC, UA ####[place] [address] UAMICon 01-28-2024 UA Amorphus 2+ /hpf Normal [facility] Comment on above: Performed By: #### U AMIC, UA ####[place] [address] UA Coarse Granular Casts Rare Abnormal [facility] Comment on above: Performed By: #### U AMIC, UA ####[place] [address] UA RBC 10-20 Abnormal 0-2 [facility] Comment on above: Performed By: #### U AMIC, UA ####[place] [address] UA Squam Epithelial 3-5 Normal 0-20 [facility] Comment on above: Performed By: #### U AMIC, UA ####[place] [address] UA WBC 3-5 Normal 0-5 [facility] Comment on above: Performed By: #### U AMIC, UA ####[place] [address] .Auto Diffon 01-27-2024 Basophil, Absolute 0.0 10 3/mcL Normal 0.0-0.3 [facility] Comment on above: Performed By: #### B MP, ANEU, ADIFF, CAION, GFR, CBC ####[place] [address] Basophils/100 WBC (Bld) 0.2 % Normal 0.0-2.5 [facility] Comment on above: Performed By: #### B MP, ANEU, ADIFF, CAION, GFR, CBC ####[place] [address] Eosinophil, Absolute 0.0 10 3/mcL Normal 0.0-0.7 [facility] Comment on above: Performed By: #### B MP, ANEU, ADIFF, CAION, GFR, CBC ####[place] [address] Eosinophils/100 WBC (Bld) 0.2 % Normal 0.0-6.0 [facility] Comment on above: Performed By: #### B MP, ANEU, ADIFF, CAION, GFR, CBC ####[place] [address] Lymphocyte, Absolute 0.4 10 3/mcL Low 0.9-4.3 [facility] Comment on above: Performed By: #### B MP, ANEU, ADIFF, CAION, GFR, CBC ####[address] [address] Lymphocytes/100 WBC (Bld) 4.7 % Low 20.0-40.0 [facility] Comment on above: Performed By: #### B MP, ANEU, ADIFF, CAION, GFR, CBC ####[address] [address] Monocyte, Absolute 0.4 10 3/mcL Normal 0.1-1.4 [facility] Comment on above: Performed By: #### B MP, ANEU, ADIFF, CAION, GFR, CBC ####[address] [address] Monocytes/100 WBC (Bld) 4.8 % Normal 2.0-13.0 [facility] Comment on above: Performed By: #### B MP, ANEU, ADIFF, CAION, GFR, CBC ####[address] [address] Neutrophils/100 WBC (Bld) 90.1 % High 50.0-75.0 [facility] Comment on above: Performed By: #### B MP, ANEU, ADIFF, CAION, GFR, CBC ####[address] [address] .GFRon 01-27-2024 GFR 37 ml/min/1.73sqm Normal [facility] Comment on above: Result Comment: GFR Population mean for , Non- Americans Ages 20-29 = 116 mL/min/1.73 sq.m. Ages 30-39 = 107 mL/min/1.73 sq.m. Ages 40-49 = 99 mL/min/1.73 sq.m. Ages 50-59 = 93 mL/min/1.73 sq.m. Ages 60-69 = 85 mL/min/1.73 sq.m. Ages 70+ = 75 mL/min/1.73 sq.m.Chronic Kidney Disease: Less than 60 mL/min/1.73 square metersEnd Stage Renal Disease: Less than 15 mL/min/1.73 square meters Performed By: #### B MP, ANEUMICHAEL CAION, GFR, CBC ####[address] [address] GFR Non- 30 ml/min/1.73sqm [facility] Comment on above: Result Comment: GFR Population mean for , Non- Americans Ages 20-29 = 116 mL/min/1.73 sq.m. Ages 30-39 = 107 mL/min/1.73 sq.m. Ages 40-49 = 99 mL/min/1.73 sq.m. Ages 50-59 = 93 mL/min/1.73 sq.m. Ages 60-69 = 85 mL/min/1.73 sq.m. Ages 70+ = 75 mL/min/1.73 sq.m.Chronic Kidney Disease: Less than 60 mL/min/1.73 square metersEnd Stage Renal Disease: Less than 15 mL/min/1.73 square meters Performed By: #### B MP, ANEU, JUS RODRIGUEZ, GFR, CBC ####[place] [address] GFR 36 ml/min/1.73sqm [facility] Comment on above: Result Comment: GFR Population mean for , Non- Americans Ages 20-29 = 116 mL/min/1.73 sq.m. Ages 30-39 = 107 mL/min/1.73 sq.m. Ages 40-49 = 99 mL/min/1.73 sq.m. Ages 50-59 = 93 mL/min/1.73 sq.m. Ages 60-69 = 85 mL/min/1.73 sq.m. Ages 70+ = 75 mL/min/1.73 sq.m.Chronic Kidney Disease: Less than 60 mL/min/1.73 square metersEnd Stage Renal Disease: Less than 15 mL/min/1.73 square meters Performed By: #### P HOS, MG, BMP, GFR ####[address] [address] GFR Non- 30 ml/min/1.73sqm [facility] Comment on above: Result Comment: GFR Population mean for , Non- Americans Ages 20-29 = 116 mL/min/1.73 sq.m. Ages 30-39 = 107 mL/min/1.73 sq.m. Ages 40-49 = 99 mL/min/1.73 sq.m. Ages 50-59 = 93 mL/min/1.73 sq.m. Ages 60-69 = 85 mL/min/1.73 sq.m. Ages 70+ = 75 mL/min/1.73 sq.m.Chronic Kidney Disease: Less than 60 mL/min/1.73 square metersEnd Stage Renal Disease: Less than 15 mL/min/1.73 square meters Performed By: #### P HOS, MG, BMP, GFR ####[address] [address] .NEUABSon 01-27-2024 Neutrophil, Absolute 7.8 10 3/mcL Normal 2.3-8.1 [facility] Comment on above: Performed By: #### B MP, ANEU, ADIFF, CAION, GFR, CBC ####[address] [address] BGon 01-27-2024 Base excess Calc (Bld) [Moles/Vol] -0.7000 mmol/L Normal [facility] Comment on above: Performed By: #### B G ####[place] [id number] CO2 [Moles/Vol] 25.1 mmol/L Normal 22.0-30.0 [facility] Comment on above: Performed By: #### B G ####[address] [address] HCO3 (Bld) [Moles/Vol] 23.9 mmol/L Normal 21.0-29.0 [facility] Comment on above: Performed By: #### B G ####[address] [address] Oxygen (Bld) [Partial pressure] 43.7 mm[Hg] Critically abnormal 74.0-108.0 [facility] Comment on above: Performed By: #### B G ####[place] [id number] Oxygen saturation in Blood 78.1 % Low 92.0-96.0 [facility] Comment on above: Performed By: #### B G ####[place] [address] pCO2 39.0 mmHg Normal 32.0-46.0 [facility] Comment on above: Performed By: #### B G ####[place] [address] pH (Bld) 7.405 [pH] Normal 7.380-7.46 0 [facility] Comment on above: Performed By: #### B G ####[place] [address] BMPon 01-27-2024 BUN/Creatinine Ratio 35.6 ratio High 10.0-22.0 [facility] Comment on above: Performed By: #### B MP, ANEU, ADIFF, CAION, GFR, CBC ####[place] [address] Calcium [Mass/Vol] 8.5 mg/dL Low 8.7-10.4 [facility] Comment on above: Performed By: #### B MP, ANEU, ADIFF, CAION, GFR, CBC ####[place] [address] Chloride [Moles/Vol] 114 mmol/L High 98-110 [facility] Comment on above: Performed By: #### B MP, ANEU, ADIFF, CAION, GFR, CBC ####[place] [address] CO2 [Moles/Vol] 26 mmol/L Normal 22-32 [facility] Comment on above: Performed By: #### B MP, ANEU, ADIFF, CAION, GFR, CBC ####[place] [address] Creatinine [Mass/Vol] 2.16 mg/dL High 0.60-1.40 [facility] Comment on above: Result Comment: Test ing performed on Zeppelin analyzer using enzymatic creatinine methodology. Performed By: #### B MP, ANEU, ADIFF, CAION, GFR, CBC ####[address] [address] Electrolyte Balance 11.0 mEq/L Normal 4.0-15.0 [facility] Comment on above: Performed By: #### B MP, ANEU, ADIFF, CAION, GFR, CBC ####[address] [address] Glucose [Mass/Vol] 257 mg/dL High 82-115 [facility] Comment on above: Performed By: #### B MP, ANEU, ADIFF, CAION, GFR, CBC ####[address] [address] Potassium [Moles/Vol] 4.0 mmol/L Normal 3.5-5.0 [facility] Comment on above: Performed By: #### B MP, ANEU, ADIFF, CAION, GFR, CBC ####[address] [address] Sodium [Moles/Vol] 151 mmol/L High 136-145 [facility] Comment on above: Performed By: #### B MP, ANEU, ADIFF, CAION, GFR, CBC ####[address] [address] Urea nitrogen [Mass/Vol] 77.0 mg/dL High 8.0-22.0 [facility] Comment on above: Performed By: #### B MP, ANEU, ADIFF, CAION, GFR, CBC ####[address] [address] BUN/Creatinine Ratio 33.2 ratio High 10.0-22.0 [facility] Comment on above: Performed By: #### P HOS, MG, BMP, GFR ####[address] [address] Calcium [Mass/Vol] 7.9 mg/dL Low 8.7-10.4 [facility] Comment on above: Performed By: #### P HOS, MG, BMP, GFR ####[address] [address] Chloride [Moles/Vol] 115 mmol/L High 98-110 [facility] Comment on above: Performed By: #### P HOS, MG, BMP, GFR ####[place] [address] CO2 [Moles/Vol] 29 mmol/L Normal 22-32 [facility] Comment on above: Performed By: #### P HOS, MG, BMP, GFR ####[place] [address] Creatinine [Mass/Vol] 2.17 mg/dL High 0.60-1.40 [facility] Comment on above: Result Comment: Test ing performed on Zeppelin analyzer using enzymatic creatinine methodology. Performed By: #### P HOS, MG, BMP, GFR ####[place] [address] Electrolyte Balance 9.0 mEq/L Normal 4.0-15.0 [facility] Comment on above: Performed By: #### P HOS, MG, BMP, GFR ####[place] [address] Glucose [Mass/Vol] 238 mg/dL High 82-115 [facility] Comment on above: Performed By: #### P HOS, MG, BMP, GFR ####[place] [address] Potassium [Moles/Vol] 3.4 mmol/L Low 3.5-5.0 [facility] Comment on above: Performed By: #### P HOS, MG, BMP, GFR ####[place] [address] Sodium [Moles/Vol] 153 mmol/L High 136-145 [facility] Comment on above: Performed By: #### P HOS, MG, BMP, GFR ####[place] [address] Urea nitrogen [Mass/Vol] 72.0 mg/dL High 8.0-22.0 [facility] Comment on above: Performed By: #### P HOS, MG, BMP, GFR ####[place] [address] CAIONon 01-27-2024 Calcium Ionized 0.97 mmol/L Low 1.12-1.32 [facility] Comment on above: Performed By: #### B MP, ANEU, ADIFF, CAION, GFR, CBC ####[place] [address] CBCon 01-27-2024 Erythrocyte distribution width (RBC) [Ratio] 14.7 % Normal 11.5-15.5 [facility] Comment on above: Performed By: #### B MP, ANEU, ADIFF, CAION, GFR, CBC ####[place] [address] Hematocrit (Bld) [Volume fraction] 31.7 % Low 40.0-52.0 [facility] Comment on above: Performed By: #### B MP, ANEU, ADIFF, CAION, GFR, CBC ####[place] [address] Hgb 10.5 G/dL Low 13.0-17.5 [facility] Comment on above: Performed By: #### B MP, ANEU, ADIFF, CAION, GFR, CBC ####[place] [address] MCH (RBC) [Entitic mass] 30.7 pg Normal 27.0-33.0 [facility] Comment on above: Performed By: #### B MP, ANEU, ADIFF, CAION, GFR, CBC ####[place] [address] MCHC 33.0 G/dL Normal 32.0-36.0 [facility] Comment on above: Performed By: #### B MP, ANEU, ADIFF, CAION, GFR, CBC ####[place] [address] MCV (RBC) [Entitic vol] 93.2 fL Normal 81.0-100.0 [facility] Comment on above: Performed By: #### B MP, ANEU, ADIFF, CAION, GFR, CBC ####[place] [address] Platelet 89 10 3/mcL Low 150-450 [facility] Comment on above: Performed By: #### B MP, ANEU, ADIFF, CAION, GFR, CBC ####[place] [address] Platelet mean volume (Bld) [Entitic vol] 10.5 fL Normal 6.4-10.5 [facility] Comment on above: Performed By: #### B MP, ANEU, ADIFF, CAION, GFR, CBC ####[place] [address] RBC 3.41 10 6/mcL Low 4.50-6.00 [facility] Comment on above: Performed By: #### B MP, ANEU, ADIFF, CAION, GFR, CBC ####[place] [address] WBC 8.7 10 3/mcL Normal 4.5-10.8 [facility] Comment on above: Performed By: #### B MP, ANEU, ADIFF, CAION, GFR, CBC ####[place] [address] CBLon 01-27-2024 CBL [address] [facility] 01-27-[address] [facility] Final Surgical Pathology Rep [facility] 01-27-2024 Final Surgical Pathology Report Normal [facility] Final Surgical Pathology Report Normal [facility] 01-27-2024 Bili Indirect 0.6 mg/dL Normal 0.1-10.0 [facility] Comment on above: Performed By: #### H FP ####[place] [address] Albumin Level 1.5 G/dL Low 3.2-4.8 [facility] Comment on above: Performed By: #### H FP ####[place] [address] Albumin/Globulin [Mass ratio] 0.5 {ratio} Low 0.9-1.6 [facility] Comment on above: Performed By: #### H FP ####[place] [address] ALP [Catalytic activity/Vol] 77 U/L Normal 38-126 [facility] Comment on above: Performed By: #### H FP ####[place] [address] ALT [Catalytic activity/Vol] 50 U/L Normal 12-55 [facility] Comment on above: Performed By: #### H FP ####[place] [address] AST [Catalytic activity/Vol] 66 U/L High 8-34 [facility] Comment on above: Performed By: #### H FP ####[place] [address] Bili Direct 1.4 mg/dL High 0.0-0.4 [facility] Comment on above: Result Comment: Use of this assay is not recommended for patients undergoing treatment with eltrombopag due to the potential for falsely elevated results. Performed By: #### H FP ####[place] [address] Bili Total 2.00 mg/dL High 0.20-1.20 [facility] Comment on above: Result Comment: Use of this assay is not recommended for patients undergoing treatment with eltrombopag due to the potential for falsely elevated results. Performed By: #### H FP ####[place] [address] Globulin 3.2 G/dL Normal 1.5-3.8 [facility] Comment on above: Performed By: #### H FP ####[place] [address] Total Protein 4.7 G/dL Low 5.7-8.2 [facility] Comment on above: Performed By: #### H FP ####[place] [address] HHon 01-27-2024 Hematocrit (Bld) [Volume fraction] 34.7 % Low 40.0-52.0 [facility] Comment on above: Performed By: #### T ROP, ####[place] [address] Hgb 11.5 G/dL Low 13.0-17.5 [facility] Comment on above: Performed By: #### T [facility], ####[facility] [place], [place] [id number] LABORATORYOrdered By: SYSTEM SYSTEM on 01-27-2024 Bili Indirect 0.6 mg/dL Normal 0.1 - 10.0 mg/dL Chemistry S Bilirubin.conjugated [Mass/Vol] 1.4 mg/dL High 0.0 - 0.4 mg/dL AH ADM SS Comment on above: Interpretive Data: U se of this assay is not recommended for patients undergoing treatment with eltrombopag due to the potential for falsely elevated results. Troponin I.cardiac DL <= 0.01 ng/mL [Mass/Vol] 16 ng/L Normal 0 - 54 ng/L ADM SS Comment on above: Interpretive Data: High Sensitive Troponin I Reference Ranges: Female: 0-34 ng/L Male: 0-54 ng/L Testing performed on [employer] IM analyzer using direct chemiluminescent technology. MGon 01-27-2024 Magnesium [Mass/Vol] 2.1 mg/dL Normal 1.6-2.4 [facility] Comment on above: Performed By: #### P HOS, MG, BMP, GFR ####[place] [address] [place] [address] No Panel InformationOrdered By: Sandhya Barnes on 01-27-2024 Culture Respiratory with Gram Stain Rare Klebsiella pneumoniae Refer to previous culture for susceptibility. [id number] collected 01-25-24 Normal respiratory johnna absent. [facility] Comment on above: Requests for Mycopla sma, Legionella, Fungi, Mycobacteria, Chlamydia, and Viruses require ordering of those individual tests. GS Polys equal to epithelial cells No organisms seen. [facility] Comment on above: Requests for Mycopla sma, Legionella, Fungi, Mycobacteria, Chlamydia, and Viruses require ordering of those individual tests. Klebsiella pneumoniae Klebsiella pneumoniae [facility] Comment on above: Requests for Mycopla sma, Legionella, Fungi, Mycobacteria, Chlamydia, and Viruses require ordering of those individual tests. PHOSon 01-27-2024 Phosphate [Mass/Vol] 3.2 mg/dL Normal 2.4-5.1 [facility] Comment on above: Result Comment: No te - New Reference Range in effect 19 Performed By: #### P HOS, MG, BMP, GFR ####[place] [id number] [place] [id number] TROPHSon 01-27-2024 High Sensitivity Troponin I 16 ng/L Normal 0-54 [facility] Comment on above: Result Comment: High Sensitive Troponin I Reference Ranges:Female: 0-34 ng/LMale: 0-54 ng/LTesting performed on [employer] IM analyzer using direct chemiluminescent technology. Performed By: #### T KAYLIN, ####[address] [address] XR CHEST 1 VIEWon 01-27-2024 XR CHEST [address] [facility] XR CHEST [address] [facility] XR CHEST 1 VIEW Normal [facility] .Auto Diffon 01-26-2024 Basophil, Absolute 0.0 10 3/mcL Normal 0.0-0.3 [facility] Comment on above: Performed By: #### A DIFF, CMP, CAION, ANEU, MG, PHOS, GFR, CBC ####[address] [address] Basophils/100 WBC (Bld) 0.2 % Normal 0.0-2.5 [facility] Comment on above: Performed By: #### A DIFF, CMP, CAION, ANEU, MG, PHOS, GFR, CBC ####[address] [address] Eosinophil, Absolute 0.0 10 3/mcL Normal 0.0-0.7 [facility] Comment on above: Performed By: #### A DIFF, CMP, CAION, ANEU, MG, PHOS, GFR, CBC ####[address] [address] Eosinophils/100 WBC (Bld) 0.2 % Normal 0.0-6.0 [facility] Comment on above: Performed By: #### A DIFF, CMP, CAION, ANEU, MG, PHOS, GFR, CBC ####[address] [address] Lymphocyte, Absolute 0.3 10 3/mcL Low 0.9-4.3 [facility] Comment on above: Performed By: #### A DIFF, CMP, CAION, ANEU, MG, PHOS, GFR, CBC ####[address] [address] Lymphocytes/100 WBC (Bld) 3.6 % Low 20.0-40.0 [facility] Comment on above: Performed By: #### A DIFF, CMP, CAION, ANEU, MG, PHOS, GFR, CBC ####[address] [address] Monocyte, Absolute 0.5 10 3/mcL Normal 0.1-1.4 [facility] Comment on above: Performed By: #### A DIFF, CMP, CAION, ANEU, MG, PHOS, GFR, CBC ####[address] [address] Monocytes/100 WBC (Bld) 5.8 % Normal 2.0-13.0 [facility] Comment on above: Performed By: #### A DIFF, CMP, CAION, ANEU, MG, PHOS, GFR, CBC ####[address] [address] Neutrophils/100 WBC (Bld) 90.2 % High 50.0-75.0 [facility] Comment on above: Performed By: #### A DIFF, CMP, CAION, ANEU, MG, PHOS, GFR, CBC ####[address] [address] .GFRon 01-26-2024 GFR 34 ml/min/1.73sqm Normal [facility] Comment on above: Result Comment: GFR Population mean for , Non- Americans Ages 20-29 = 116 mL/min/1.73 sq.m. Ages 30-39 = 107 mL/min/1.73 sq.m. Ages 40-49 = 99 mL/min/1.73 sq.m. Ages 50-59 = 93 mL/min/1.73 sq.m. Ages 60-69 = 85 mL/min/1.73 sq.m. Ages 70+ = 75 mL/min/1.73 sq.m.Chronic Kidney Disease: Less than 60 mL/min/1.73 square metersEnd Stage Renal Disease: Less than 15 mL/min/1.73 square meters Performed By: #### C MP, CK, CHOL, PRALB, GFR, PHOS, URIC, LD, PRO, TRIG, MG ####[address] [address] GFR Non- 28 ml/min/1.73sqm [facility] MAIN Comment on above: Result Comment: GFR Population mean for , Non- Americans Ages 20-29 = 116 mL/min/1.73 sq.m. Ages 30-39 = 107 mL/min/1.73 sq.m. Ages 40-49 = 99 mL/min/1.73 sq.m. Ages 50-59 = 93 mL/min/1.73 sq.m. Ages 60-69 = 85 mL/min/1.73 sq.m. Ages 70+ = 75 mL/min/1.73 sq.m.Chronic Kidney Disease: Less than 60 mL/min/1.73 square metersEnd Stage Renal Disease: Less than 15 mL/min/1.73 square meters Performed By: #### C MP, CK, CHOL, PRALB, GFR, PHOS, URIC, LD, PRO, TRIG, MG ####[place] [address] GFR Non- 25 ml/min/1.73sqm [facility] MAIN Comment on above: Result Comment: GFR Population mean for , Non- Americans Ages 20-29 = 116 mL/min/1.73 sq.m. Ages 30-39 = 107 mL/min/1.73 sq.m. Ages 40-49 = 99 mL/min/1.73 sq.m. Ages 50-59 = 93 mL/min/1.73 sq.m. Ages 60-69 = 85 mL/min/1.73 sq.m. Ages 70+ = 75 mL/min/1.73 sq.m.Chronic Kidney Disease: Less than 60 mL/min/1.73 square metersEnd Stage Renal Disease: Less than 15 mL/min/1.73 square meters Performed By: #### A DIFF, CMP, CAION, ANEU, MG, PHOS, GFR, CBC ####[place] [address] GFR 30 ml/min/1.73sqm Normal [facility] Comment on above: Result Comment: GFR Population mean for , Non- Americans Ages 20-29 = 116 mL/min/1.73 sq.m. Ages 30-39 = 107 mL/min/1.73 sq.m. Ages 40-49 = 99 mL/min/1.73 sq.m. Ages 50-59 = 93 mL/min/1.73 sq.m. Ages 60-69 = 85 mL/min/1.73 sq.m. Ages 70+ = 75 mL/min/1.73 sq.m.Chronic Kidney Disease: Less than 60 mL/min/1.73 square metersEnd Stage Renal Disease: Less than 15 mL/min/1.73 square meters Performed By: #### A DIFF, CMP, CAION, ANEU, MG, PHOS, GFR, CBC ####[place] [address] .NEUABSon 01-26-2024 Neutrophil, Absolute 7.2 10 3/mcL Normal 2.3-8.1 [facility] Comment on above: Performed By: #### A DIFF, CMP, CAION, ANEU, MG, PHOS, GFR, CBC ####[place] [address] BCIDon 01-26-2024 Acinetobacter bg-baumanii complex Not detected Normal Not Detected [facility] Comment on above: Performed By: #### B JAVID ####[place] [address] Bacteroides fragilis Not detected Normal Not Detected [facility] Comment on above: Performed By: #### B JAVID ####[place] [address] BCID Comment See Comment Normal [facility] Comment on above: Result Comment: Anti microbial resistance can occur via multiple mechanisms. A Not Detected result for antimicrobial resistance gene(s) does not indicate antimicrobial susceptibility. Culture identification and susceptibility results to follow.If BCID panel was negative (Not Detected) for all targets, thisdoes not exclude a blood stream infection. Our blood culture system detectedgrowth. Culture identification and susceptibility testing (if appropriate) tofollow. Performed By: #### B JAVID ####[place] [address] Maria Alejandra albicans Not detected Normal Not Detected [facility] Comment on above: Performed By: #### B JAVID ####[place] [address] Maria Alejandra auris Not detected Normal Not Detected [facility] Comment on above: Performed By: #### B JAVID ####[place] [address] Maria Alejandra glabrata Not detected Normal Not Detected [facility] Comment on above: Performed By: #### B JAVID ####[place] [address] Maria Alejandra krusei Not detected Normal Not Detected [facility] Comment on above: Performed By: #### B JAVID ####[place] [address] Maria Alejandra parapsilosis Not detected Normal Not Detected [facility] Comment on above: Performed By: #### B JAVID ####[place] [address] Maria Alejandra tropicalis Not detected Normal Not Detected [facility] Comment on above: Performed By: #### B JAVID ####[place] [address] Cryptococcus neoformans-gattii Not detected Normal Not Detected [facility] Comment on above: Performed By: #### B JAVID ####[place] [address] CTX-M (ESBL) Not Applicable Normal Not Detected [facility] Comment on above: Performed By: #### B JAVID ####[place] [address] E. Coli Not detected Normal Not Detected [facility] Comment on above: Performed By: #### B JAVID ####[place] [address] Enterobacter cloacae Complex Not detected Normal Not Detected [facility] Comment on above: Performed By: #### B JAVID ####[address] [place], [place] [address] Enterobacterales Not detected Normal Not Detected [facility] Comment on above: Performed By: #### B JAVID ####[facility] [place] [address] Enterococcus faecalis Not detected Normal Not Detected [facility] Comment on above: Performed By: #### B JAVID ####[facility] [place] [address] Enterococcus faecium Not detected Normal Not Detected [facility] Comment on above: Performed By: #### B JAVID ####[facility] [place] [address] Haemophilus influenzae Not detected Normal Not Detected [facility] Comment on above: Performed By: #### B JAVID ####[place] [address] IMP (Carbapenemase) Not Applicable Normal Not Detected [facility] Comment on above: Performed By: #### B JAVID ####[place] [address] Klebsiella aerogenes Not detected Normal Not Detected [facility] Comment on above: Performed By: #### B JAVID ####[place] [address] Klebsiella oxytoca Not detected Normal Not Detected [facility] Comment on above: Performed By: #### B JAVID ####[place] [address] Klebsiella pneumoniae group Not detected Normal Not Detected [facility] Comment on above: Performed By: #### B JAVID ####[place] [address] KPC (Carbapenemase) Not Applicable Normal Not Detected [facility] Comment on above: Performed By: #### B JAVID ####[facility] [place] [address] Listeria monocytogenes Not detected Normal Not Detected [facility] Comment on above: Performed By: #### B JAVID ####[place] [address] MCR-1 (Colistin Resistance) Not Applicable Normal Not Detected [facility] Comment on above: Performed By: #### B JAVID ####[place] [address] Mec A/C Not detected Normal Not Detected [facility] Comment on above: Performed By: #### B JAVID ####[place] [address] Mec A/C-MREJ (MRSA) Not Applicable Normal Not Detected [facility] Comment on above: Performed By: #### B JAVID ####[place] [address] NDM (Carbapenemase) Not Applicable Normal Not Detected [facility] Comment on above: Performed By: #### B JAVID ####[place] [address] Neisseria meningitidis (Encapsalated) Not detected Normal Not Detected [facility] Comment on above: Performed By: #### B JAVID ####[place] [address] OXA-48 like (Carbapenemase) Not Applicable Normal Not Detected [facility] Comment on above: Performed By: #### B JAVID ####[place] [address] Proteus Not detected Normal Not Detected [facility] Comment on above: Performed By: #### B JAVID ####[place] [address] Pseudomonas aeruginosa Not detected Normal Not Detected [facility] Comment on above: Performed By: #### B JAVID ####[place] [address] S. agalactiae Org specific cx Ql (Vag fld) Not detected Normal Not Detected [facility] Comment on above: Performed By: #### B JAVID ####[place] [address] Salmonella species Not detected Normal Not Detected [facility] Comment on above: Performed By: #### B JAVID ####[place] [address] Serratia marcescens Not detected Normal Not Detected [facility] Comment on above: Performed By: #### B JAVID ####[place] [address] Staphylococcus Detected Abnormal Not Detected [facility] Comment on above: Performed By: #### B JAVID ####[place] [address] Staphylococcus aureus Not detected Normal Not Detected [facility] Comment on above: Result Comment: If S taphylococcus aureus is Detected, an Infectious Disease physician consult is required on identification. Performed By: #### B JAVID ####[place] [address] Staphylococcus epidermidis Detected Abnormal Not Detected [facility] Comment on above: Performed By: #### B JAVID ####[place] [address] Staphylococcus lugdunensis Not detected Normal Not Detected [facility] Comment on above: Performed By: #### B JAVID ####[place] [address] Stenotrophomonas maltophilia Not detected Normal Not Detected [facility] Comment on above: Performed By: #### B JAVID ####[place] [address] Streptococcus Not detected Normal Not Detected [facility] Comment on above: Performed By: #### B JAVID ####[place] [address] Streptococcus pneumoniae Not detected Normal Not Detected [facility] Comment on above: Performed By: #### B JAVID ####[place] [address] Streptococcus pyogenes Not detected Normal Not Detected [facility] Comment on above: Performed By: #### B JAVID ####[place] [address] Van A/B Not Applicable Normal Not Detected [facility] Comment on above: Performed By: #### B JAVID ####[place] [address] VIM (Carbapenemase) Not Applicable Normal Not Detected [facility] Comment on above: Performed By: #### B JAVID ####[place] [address] BGon 01-26-2024 Base excess Calc (Bld) [Moles/Vol] 2.8 mmol/L Normal [facility] Comment on above: Performed By: #### B G ####[address] [place], [place] [address] CO2 [Moles/Vol] 29.1 mmol/L Normal 22.0-30.0 [facility] Comment on above: Performed By: #### B G ####[place] [address] HCO3 (Bld) [Moles/Vol] 27.8 mmol/L Normal 21.0-29.0 [facility] Comment on above: Performed By: #### B G ####[place] [address] Oxygen (Bld) [Partial pressure] 88.8 mm[Hg] Normal 74.0-108.0 [facility] Comment on above: Performed By: #### B G ####[place] [address] Oxygen saturation in Blood 96.8 % High 92.0-96.0 [facility] Comment on above: Performed By: #### B G ####[place] [address] pCO2 44.1 mmHg Normal 32.0-46.0 [facility] Comment on above: Performed By: #### B G ####[place] [address] pH (Bld) 7.417 [pH] Normal 7.380-7.46 0 [facility] Comment on above: Performed By: #### B G ####[place] [address] CAIONon 01-26-2024 Calcium Ionized 0.87 mmol/L Low 1.12-1.32 [facility] Comment on above: Performed By: #### C Sary BHAT ####[place] [address] Calcium Ionized 0.90 mmol/L Low 1.12-1.32 [facility] Comment on above: Performed By: #### A DIFF, CMP, CAION, ANEU, MG, PHOS, GFR, CBC ####[place] [address] CBCon 01-26-2024 Erythrocyte distribution width (RBC) [Ratio] 14.4 % Normal 11.5-15.5 [facility] Comment on above: Performed By: #### A DIFF, CMP, CAION, ANEU, MG, PHOS, GFR, CBC ####[place] [address] Hematocrit (Bld) [Volume fraction] 30.2 % Low 40.0-52.0 [facility] Comment on above: Performed By: #### A DIFF, CMP, CAION, ANEU, MG, PHOS, GFR, CBC ####[place] [address] Hgb 10.1 G/dL Low 13.0-17.5 [facility] Comment on above: Performed By: #### A DIFF, CMP, CAION, ANEU, MG, PHOS, GFR, CBC ####[place] [address] MCH (RBC) [Entitic mass] 30.8 pg Normal 27.0-33.0 [facility] Comment on above: Performed By: #### A DIFF, CMP, CAION, ANEU, MG, PHOS, GFR, CBC ####[place] [address] MCHC 33.4 G/dL Normal 32.0-36.0 [facility] Comment on above: Performed By: #### A DIFF, CMP, CAION, ANEU, MG, PHOS, GFR, CBC ####[place] [address] MCV (RBC) [Entitic vol] 92.2 fL Normal 81.0-100.0 [facility] Comment on above: Performed By: #### A DIFF, CMP, CAION, ANEU, MG, PHOS, GFR, CBC ####[place] [address] Platelet 72 10 3/mcL Low 150-450 [facility] Comment on above: Performed By: #### A DIFF, CMP, CAION, ANEU, MG, PHOS, GFR, CBC ####[place] [address] Platelet mean volume (Bld) [Entitic vol] 10.3 fL Normal 6.4-10.5 [facility] Comment on above: Performed By: #### A DIFF, CMP, CAION, ANEU, MG, PHOS, GFR, CBC ####[place] [id number] [place] [address] RBC 3.28 10 6/mcL Low 4.50-6.00 [facility] Comment on above: Performed By: #### A DIFF, CMP, CAION, ANEU, MG, PHOS, GFR, CBC ####[place] [address] WBC 8.0 10 3/mcL Normal 4.5-10.8 [facility] Comment on above: Performed By: #### A DIFF, CMP, CAION, ANEU, MG, PHOS, GFR, CBC ####[place] [address] CBLon 01-26-2024 CBL Normal [facility] CHOLon 01-26-2024 Cholesterol [Mass/Vol] 104 mg/dL Normal 50-199 [facility] Comment on above: Result Comment: Chol esterol Reference Interval:Less than 200 [id number] Borderline high [id number] and above High risk Performed By: #### C MP, CK, CHOL, PRALB, GFR, PHOS, URIC, LD, PRO, TRIG, MG ####[place] [address] CKon 01-26-2024 CK [Catalytic activity/Vol] 597 U/L High 7-185 [facility] Comment on above: Performed By: #### C MP, CK, CHOL, PRALB, GFR, PHOS, URIC, LD, PRO, TRIG, MG ####[place] [address] CMPon 01-26-2024 Albumin Level 1.7 G/dL Low 3.2-4.8 [facility] Comment on above: Performed By: #### C MP, CK, CHOL, PRALB, GFR, PHOS, URIC, LD, PRO, TRIG, MG ####[place] [id number] Albumin/Globulin [Mass ratio] 0.5 {ratio} Low 0.9-1.6 [facility] Comment on above: Performed By: #### C MP, CK, CHOL, PRALB, GFR, PHOS, URIC, LD, PRO, TRIG, MG ####[place] [address] ALP [Catalytic activity/Vol] 54 U/L Normal 38-126 [facility] Comment on above: Performed By: #### C MP, CK, CHOL, PRALB, GFR, PHOS, URIC, LD, PRO, TRIG, MG ####[place] [address] ALT [Catalytic activity/Vol] 53 U/L Normal 12-55 [facility] Comment on above: Performed By: #### C MP, CK, CHOL, PRALB, GFR, PHOS, URIC, LD, PRO, TRIG, MG ####[place] [address] AST [Catalytic activity/Vol] 82 U/L High 8-34 [facility] Comment on above: Performed By: #### C MP, CK, CHOL, PRALB, GFR, PHOS, URIC, LD, PRO, TRIG, MG ####[place] [address] Bili Total 1.80 mg/dL High 0.20-1.20 [facility] Comment on above: Result Comment: Use of this assay is not recommended for patients undergoing treatment with eltrombopag due to the potential for falsely elevated results. Performed By: #### C MP, CK, CHOL, PRALB, GFR, PHOS, URIC, LD, PRO, TRIG, MG ####[place] [address] BUN/Creatinine Ratio 29.4 ratio High 10.0-22.0 [facility] Comment on above: Performed By: #### C MP, CK, CHOL, PRALB, GFR, PHOS, URIC, LD, PRO, TRIG, MG ####[place] [address] Calcium [Mass/Vol] 8.2 mg/dL Low 8.7-10.4 [facility] Comment on above: Performed By: #### C MP, CK, CHOL, PRALB, GFR, PHOS, URIC, LD, PRO, TRIG, MG ####[address] [address] Chloride [Moles/Vol] 116 mmol/L High 98-110 [facility] Comment on above: Performed By: #### C MP, CK, CHOL, PRALB, GFR, PHOS, URIC, LD, PRO, TRIG, MG ####[address] [address] CO2 [Moles/Vol] 27 mmol/L Normal 22-32 [facility] Comment on above: Performed By: #### C MP, CK, CHOL, PRALB, GFR, PHOS, URIC, LD, PRO, TRIG, MG ####[place] [id number] Creatinine [Mass/Vol] 2.28 mg/dL High 0.60-1.40 [facility] Comment on above: Result Comment: Test ing performed on Zeppelin analyzer using enzymatic creatinine methodology. Performed By: #### C MP, CK, CHOL, PRALB, GFR, PHOS, URIC, LD, PRO, TRIG, MG ####[address] [address] Electrolyte Balance 7.0 mEq/L Normal 4.0-15.0 [facility] Comment on above: Performed By: #### C MP, CK, CHOL, PRALB, GFR, PHOS, URIC, LD, PRO, TRIG, MG ####[address] [address] Globulin 3.4 G/dL Normal 1.5-3.8 [facility] Comment on above: Performed By: #### C MP, CK, CHOL, PRALB, GFR, PHOS, URIC, LD, PRO, TRIG, MG ####[place] [id number] Glucose [Mass/Vol] 233 mg/dL High 82-115 [facility] Comment on above: Performed By: #### C MP, CK, CHOL, PRALB, GFR, PHOS, URIC, LD, PRO, TRIG, MG ####[place] [id number] Potassium [Moles/Vol] 3.2 mmol/L Low 3.5-5.0 [facility] Comment on above: Performed By: #### C MP, CK, CHOL, PRALB, GFR, PHOS, URIC, LD, PRO, TRIG, MG ####[place] [id number] Sodium [Moles/Vol] 150 mmol/L High 136-145 [facility] Comment on above: Performed By: #### C MP, CK, CHOL, PRALB, GFR, PHOS, URIC, LD, PRO, TRIG, MG ####[place] [address] Total Protein 5.1 G/dL Low 5.7-8.2 [facility] Comment on above: Performed By: #### C MP, CK, CHOL, PRALB, GFR, PHOS, URIC, LD, PRO, TRIG, MG ####[place] [id number] Urea nitrogen [Mass/Vol] 67.0 mg/dL High 8.0-22.0 [facility] Comment on above: Performed By: #### C MP, CK, CHOL, PRALB, GFR, PHOS, URIC, LD, PRO, TRIG, MG ####[place] [address] Albumin Level 1.9 G/dL Low 3.2-4.8 [facility] Comment on above: Performed By: #### A DIFF, CMP, CAION, ANEU, MG, PHOS, GFR, CBC ####[place] [address] Albumin/Globulin [Mass ratio] 0.6 {ratio} Low 0.9-1.6 [facility] Comment on above: Performed By: #### A DIFF, CMP, CAION, ANEU, MG, PHOS, GFR, CBC ####[address] [address] ALP [Catalytic activity/Vol] 56 U/L Normal 38-126 [facility] Comment on above: Performed By: #### A DIFF, CMP, CAION, ANEU, MG, PHOS, GFR, CBC ####[address] [address] ALT [Catalytic activity/Vol] 58 U/L High 12-55 [facility] Comment on above: Performed By: #### A DIFF, CMP, CAION, ANEU, MG, PHOS, GFR, CBC ####[address] [address] AST [Catalytic activity/Vol] 95 U/L High 8-34 [facility] Comment on above: Performed By: #### A DIFF, CMP, CAION, ANEU, MG, PHOS, GFR, CBC ####[place] [id number] Bili Total 2.20 mg/dL High 0.20-1.20 [facility] Comment on above: Result Comment: Use of this assay is not recommended for patients undergoing treatment with eltrombopag due to the potential for falsely elevated results. Performed By: #### A DIFF, CMP, CAION, ANEU, MG, PHOS, GFR, CBC ####[place] [address] BUN/Creatinine Ratio 26.1 ratio High 10.0-22.0 [facility] Comment on above: Performed By: #### A DIFF, CMP, CAION, ANEU, MG, PHOS, GFR, CBC ####[place] [id number] Calcium [Mass/Vol] 7.8 mg/dL Low 8.7-10.4 [facility] Comment on above: Performed By: #### A DIFF, CMP, CAION, ANEU, MG, PHOS, GFR, CBC ####[place] [id number] Chloride [Moles/Vol] 114 mmol/L High 98-110 [facility] Comment on above: Performed By: #### A DIFF, CMP, CAION, ANEU, MG, PHOS, GFR, CBC ####[address] [address] CO2 [Moles/Vol] 29 mmol/L Normal 22-32 [facility] Comment on above: Performed By: #### A DIFF, CMP, CAION, ANEU, MG, PHOS, GFR, CBC ####[address] [address] Creatinine [Mass/Vol] 2.57 mg/dL High 0.60-1.40 [facility] Comment on above: Result Comment: Test ing performed on Zeppelin analyzer using enzymatic creatinine methodology. Performed By: #### A DIFF, CMP, CAION, ANEU, MG, PHOS, GFR, CBC ####[place] [address] Electrolyte Balance 4.0 mEq/L Normal 4.0-15.0 [facility] Comment on above: Performed By: #### A DIFF, CMP, CAION, ANEU, MG, PHOS, GFR, CBC ####[place] [address] Globulin 3.2 G/dL Normal 1.5-3.8 [facility] Comment on above: Performed By: #### A DIFF, CMP, CAION, ANEU, MG, PHOS, GFR, CBC ####[place] [id number] Glucose [Mass/Vol] 158 mg/dL High 82-115 [facility] Comment on above: Performed By: #### A DIFF, CMP, CAION, ANEU, MG, PHOS, GFR, CBC ####[place] [id number] Potassium [Moles/Vol] 2.8 mmol/L Low 3.5-5.0 [facility] Comment on above: Performed By: #### A DIFF, CMP, CAION, ANEU, MG, PHOS, GFR, CBC ####[place] [address] Sodium [Moles/Vol] 147 mmol/L High 136-145 [facility] Comment on above: Performed By: #### A DIFF, CMP, CAION, ANEU, MG, PHOS, GFR, CBC ####[place] [id number] [address] [place] [id number] Total Protein 5.1 G/dL Low 5.7-8.2 [facility] Comment on above: Performed By: #### A DIFF, CMP, CAION, ANEU, MG, PHOS, GFR, CBC ####[place] [id number] [address] [place] [id number] Urea nitrogen [Mass/Vol] 67.0 mg/dL High 8.0-22.0 [facility] Comment on above: Performed By: #### A DIFF, CMP, CAION, ANEU, MG, PHOS, GFR, CBC ####[place] [id number] [place] [address] Elio 01-26-2024 Potassium [Moles/Vol] 3.5 mmol/L Normal 3.5-5.0 [facility] Comment on above: Performed By: #### C Sary BHAT ####[place] [address] LABORATORYOrdered By: SYSTEM SYSTEM on 01-26-2024 Cholesterol [Mass/Vol] 104 mg/dL Normal 50 - 199 mg/dL ADM SS Comment on above: Interpretive Data: C holesterol Reference Interval: Less than 200 Desirable 200-239 Borderline high risk 240 and above High risk CK [Catalytic activity/Vol] 597 U/L High 7 - 185 U/L ADM SS LDH Lactate to pyruvate reaction [Catalytic activity/Vol] 242 1 Normal 120 - 246 U/L ADM SS Prealbumin [Mass/Vol] mg/dL Low 10.0 - 40.0 mg/dL ADM SS Comment on above: Interpretive Data: * *Note - New Reference Range in effect 19 PT Coag (PPP) [Time] 10.6 s Normal 9.0 - 1 4.4 seconds [facility] SS Comment on above: Interpretive Data: E ffective 10/14/07, Protime results may be affected by some antibiotics (i.e. Ciprofloxacin, Azithromycin, Bactrim) which may potentiate the action of oral anticoagulants, with further increases in Protime/INR. PT International Ratio 0.9 ratio Invalid Interpretation Code [facility] SS Comment on above: Interpretive Data: Mason knowles [place] [employer] (CHEST, 1991, 102:312S-25S) recommended therapeutic range for oral anticoagulant therapy is: LOW RISK: Prophylaxis of venous thrombosis INR: 2.0-3.0 Treatment of pulmonary embolism 2.0-3.0 Prevention of systemic embolism 2.0-3.0 HIGH RISK: Mechanical prosthetic valves 2.5-3.5 Triglyceride [Mass/Vol] 178 mg/dL High 3 - 149 mg/dL [facility] Uric Acid Lvl 6.6 mg/dL Normal 3.7 - 9.2 mg/dL [facility] Comment on above: Interpretive Data: * *Note - New Reference Range in effect 19 Troponin I.cardiac DL <= 0.01 ng/mL [Mass/Vol] 21 ng/L Normal 0 - 54 ng/L [facility] Comment on above: Interpretive Data: High Sensitive Troponin I Reference Ranges: Female: 0-34 ng/L Male: 0-54 ng/L Testing performed on [employer] analyzer using direct chemiluminescent technology. LDHon 01-26-2024 LDH 242 U/L Normal 120-246 [facility] Comment on above: Performed By: #### C MP, CK, CHOL, PRALB, GFR, PHOS, URIC, LD, PRO, TRIG, MG ####[address] [address] MGon 01-26-2024 Magnesium [Mass/Vol] 2.2 mg/dL Normal 1.6-2.4 [facility] Comment on above: Performed By: #### C MP, CK, CHOL, PRALB, GFR, PHOS, URIC, LD, PRO, TRIG, MG ####[address] [address] Magnesium [Mass/Vol] 2.2 mg/dL Normal 1.6-2.4 [facility] Comment on above: Performed By: #### M G, PHOS, TROPHS ####[address] [address] Magnesium [Mass/Vol] 2.3 mg/dL Normal 1.6-2.4 [facility] Comment on above: Performed By: #### A DIFF, CMP, CAION, ANEU, MG, PHOS, GFR, CBC ####[address] [address] PHOSon 01-26-2024 Phosphate [Mass/Vol] 2.7 mg/dL Normal 2.4-5.1 [facility] Comment on above: Result Comment: No te - New Reference Range in effect 19 Performed By: #### C MP, CK, CHOL, PRALB, GFR, PHOS, URIC, LD, PRO, TRIG, MG ####[address] [address] Phosphate [Mass/Vol] 3.5 mg/dL Normal 2.4-5.1 [facility] Comment on above: Result Comment: No te - New Reference Range in effect 19 Performed By: #### M G, PHOS, TROPHS ####[place] [address] Phosphate [Mass/Vol] 3.0 mg/dL Normal 2.4-5.1 [facility] Comment on above: Result Comment: No te - New Reference Range in effect 19 Performed By: #### A DIFF, CMP, CAION, ANEU, MG, PHOS, GFR, CBC ####[place] [address] PRALBon 01-26-2024 Prealbumin [Mass/Vol] mg/dL Low 10.0-40.0 [facility] Comment on above: Result Comment: No te - New Reference Range in effect 19 Performed By: #### C MP, CK, CHOL, PRALB, GFR, PHOS, URIC, LD, PRO, TRIG, MG ####[address] [address] PROon 01-26-2024 INR Coag (PPP) [Relative time] 0.9 {INR} Normal [facility] Comment on above: Result Comment: The [place] [employer] (CHEST, 1992, 102:312S-25S)recommended therapeutic range for oral anticoagulant therapy is:LOW RISK: Prophylaxis of venous thrombosis INR: 2.0-3.0 Treatment of pulmonary embolism 2.0-3.0 Prevention of systemic embolism 2.0-3.0HIGH RISK: Mechanical prosthetic valves 2.5-3.5 Performed By: #### C MP, CK, CHOL, PRALB, GFR, PHOS, URIC, LD, PRO, TRIG, MG ####[place] [address] PT Coag (PPP) [Time] 10.6 s Normal 9.0-14.4 [facility] Comment on above: Result Comment: Effe ctive 10/14/07, Protime results may be affected by some antibiotics (i.e. Ciprofloxacin, Azithromycin, Bactrim) which may potentiate the action of oral anticoagulants, with further increases in Protime/INR. Performed By: #### C MP, CK, CHOL, PRALB, GFR, PHOS, URIC, LD, PRO, TRIG, MG ####[place] [address] TRIGon 01-26-2024 Triglyceride [Mass/Vol] 178 mg/dL High 3-149 [facility] Comment on above: Performed By: #### C MP, CK, CHOL, PRALB, GFR, PHOS, URIC, LD, PRO, TRIG, MG ####[place] [address] TROPHSon 01-26-2024 High Sensitivity Troponin I 21 ng/L Normal 0-54 [facility] Comment on above: Result Comment: High Sensitive Troponin I Reference Ranges:Female: 0-34 ng/LMale: 0-54 ng/LTesting performed on [employer] IM analyzer using direct chemiluminescent technology. Performed By: #### M G, PHOS, TROPHS ####[place] [address] URICon 01-26-2024 Uric Acid Lvl 6.6 mg/dL Normal 3.7-9.2 [facility] Comment on above: Result Comment: No te - New Reference Range in effect 19 Performed By: #### C MP, CK, CHOL, PRALB, GFR, PHOS, URIC, LD, PRO, TRIG, MG ####[place] [id number] [place] [address] XR CHEST 1 VIEWon 01-26-2024 XR CHEST 1 VIEW [facility] .GFRon 01-25-2024 GFR Non- 21 ml/min/1.73sqm [facility] Comment on above: Result Comment: GFR Population mean for , Non- Americans Ages 20-29 = 116 mL/min/1.73 sq.m. Ages 30-39 = 107 mL/min/1.73 sq.m. Ages 40-49 = 99 mL/min/1.73 sq.m. Ages 50-59 = 93 mL/min/1.73 sq.m. Ages 60-69 = 85 mL/min/1.73 sq.m. Ages 70+ = 75 mL/min/1.73 sq.m.Chronic Kidney Disease: Less than 60 mL/min/1.73 square metersEnd Stage Renal Disease: Less than 15 mL/min/1.73 square meters Performed By: #### D IFF, LAC, MORPH, MG, PHOS, CAION, CBC, GFR, BMP ####[place] [id number] [place] [address] GFR 26 ml/min/1.73sqm [facility] Comment on above: Result Comment: GFR Population mean for , Non- Americans Ages 20-29 = 116 mL/min/1.73 sq.m. Ages 30-39 = 107 mL/min/1.73 sq.m. Ages 40-49 = 99 mL/min/1.73 sq.m. Ages 50-59 = 93 mL/min/1.73 sq.m. Ages 60-69 = 85 mL/min/1.73 sq.m. Ages 70+ = 75 mL/min/1.73 sq.m.Chronic Kidney Disease: Less than 60 mL/min/1.73 square metersEnd Stage Renal Disease: Less than 15 mL/min/1.73 square meters Performed By: #### D IFF, LAC, MORPH, MG, PHOS, CAION, CBC, GFR, BMP ####[address] [address] .Manual Diffon 01-25-2024 Bands 12.0 % High 0.0-5.0 [facility] Comment on above: Performed By: #### D IFF, LAC, MORPH, MG, PHOS, CAION, CBC, GFR, BMP ####[address] [address] Basophil %, Manual 0.0 % Normal 0.0-2.5 [facility] Comment on above: Performed By: #### D IFF, LAC, MORPH, MG, PHOS, CAION, CBC, GFR, BMP ####[address] [address] Basophil, Abs Manual 0.0 10 3/mcL Normal 0.0-0.3 [facility] Comment on above: Performed By: #### D IFF, LAC, MORPH, MG, PHOS, CAION, CBC, GFR, BMP ####[place] [address] Eosinophil %, Manual 0.0 % Normal 0.0-6.0 [facility] Comment on above: Performed By: #### D IFF, LAC, MORPH, MG, PHOS, CAION, CBC, GFR, BMP ####[address] [address] Eosinophil, Abs Manual 0.0 10 3/mcL Normal 0.0-0.7 [facility] Comment on above: Performed By: #### D IFF, LAC, MORPH, MG, PHOS, CAION, CBC, GFR, BMP ####[place] [id number] Lymphocyte %, Manual 6.0 % Low 20.0-40.0 [facility] Comment on above: Performed By: #### D IFF, LAC, MORPH, MG, PHOS, CAION, CBC, GFR, BMP ####[place] [id number] Lymphocyte, Abs Manual 0.6 10 3/mcL Low 0.9-4.3 [facility] Comment on above: Performed By: #### D IFF, LAC, MORPH, MG, PHOS, CAION, CBC, GFR, BMP ####[address] [address] Monocyte %, Manual 1.0 % Low 2.0-13.0 [facility] Comment on above: Performed By: #### D IFF, LAC, MORPH, MG, PHOS, CAION, CBC, GFR, BMP ####[place] [id number] Monocyte, Abs Manual 0.1 10 3/mcL Normal 0.1-1.4 [facility] Comment on above: Performed By: #### D IFF, LAC, MORPH, MG, PHOS, CAION, CBC, GFR, BMP ####[place] [address] Neutrophil %, Manual 81.0 % High 50.0-75.0 [facility] Comment on above: Performed By: #### D IFF, LAC, MORPH, MG, PHOS, CAION, CBC, GFR, BMP ####[place] [address] Neutrophil, Abs Manual 8.6 10 3/mcL High 2.3-8.1 [facility] Comment on above: Performed By: #### D IFF, LAC, MORPH, MG, PHOS, CAION, CBC, GFR, BMP ####[place] [address] Nucleated RBC 0.0 /100 WBC Normal [facility] Comment on above: Performed By: #### D IFF, LAC, MORPH, MG, PHOS, CAION, CBC, GFR, BMP ####[place] [address] .Morphon 01-25-2024 Dohle Bodies 1+ Normal [facility] Comment on above: Performed By: #### D IFF, LAC, MORPH, MG, PHOS, CAION, CBC, GFR, BMP ####[place] [address] Platelet Estimate Decreased Normal [facility] Comment on above: Performed By: #### D IFF, LAC, MORPH, MG, PHOS, CAION, CBC, GFR, BMP ####[place] [address] RBC morphology finding Nom (Bld) Normal Normal [facility] Comment on above: Performed By: #### D IFF, LAC, MORPH, MG, PHOS, CAION, CBC, GFR, BMP ####[place] [address] Toxic Gran 1+ Normal [facility] Comment on above: Performed By: #### D IFF, LAC, MORPH, MG, PHOS, CAION, CBC, GFR, BMP ####[place] [address] BGon 01-25-2024 Base excess Calc (Bld) [Moles/Vol] -0.9000 mmol/L Normal [facility] Comment on above: Performed By: #### B G ####[place] [address] CO2 [Moles/Vol] 25.1 mmol/L Normal 22.0-30.0 [facility] Comment on above: Performed By: #### B G ####[place] [address] HCO3 (Bld) [Moles/Vol] 23.9 mmol/L Normal 21.0-29.0 [facility] Comment on above: Performed By: #### B G ####[place] [address] Oxygen (Bld) [Partial pressure] 94.8 mm[Hg] Normal 74.0-108.0 [facility] Comment on above: Performed By: #### B G ####[place] [address] Oxygen saturation in Blood 97.2 % High 92.0-96.0 [facility] Comment on above: Performed By: #### B G ####[place] [address] pCO2 40.3 mmHg Normal 32.0-46.0 [facility] Comment on above: Performed By: #### B G ####[place] [address] pH (Bld) 7.391 [pH] Normal 7.380-7.46 0 [facility] Comment on above: Performed By: #### B G ####[address] [address] Base excess Calc (Bld) [Moles/Vol] 1.1 mmol/L Normal [facility] Comment on above: Performed By: #### B G ####[address] [address] CO2 [Moles/Vol] 26.7 mmol/L Normal 22.0-30.0 [facility] Comment on above: Performed By: #### B G ####[address] [address] HCO3 (Bld) [Moles/Vol] 25.5 mmol/L Normal 21.0-29.0 [facility] Comment on above: Performed By: #### B G ####[address] [address] Oxygen (Bld) [Partial pressure] 92.0 mm[Hg] Normal 74.0-108.0 [facility] Comment on above: Performed By: #### B G ####[place] [id number] Oxygen saturation in Blood 97.1 % High 92.0-96.0 [facility] Comment on above: Performed By: #### B G ####[address] [address] pCO2 39.6 mmHg Normal 32.0-46.0 [facility] Comment on above: Performed By: #### B G ####[address] [address] pH (Bld) 7.426 [pH] Normal 7.380-7.46 0 [facility] Comment on above: Performed By: #### B G ####[address] [address] Base excess Calc (Bld) [Moles/Vol] -0.7000 mmol/L Normal [facility] Comment on above: Performed By: #### B G ####[address] [address] CO2 [Moles/Vol] 25.6 mmol/L Normal 22.0-30.0 [facility] Comment on above: Performed By: #### B G ####[place] [address] HCO3 (Bld) [Moles/Vol] 24.3 mmol/L Normal 21.0-29.0 [facility] Comment on above: Performed By: #### B G ####[place] [address] Oxygen saturation in Blood 98.4 % High 92.0-96.0 [facility] Comment on above: Performed By: #### B G ####[place] [address] pCO2 41.5 mmHg Normal 32.0-46.0 [facility] Comment on above: Performed By: #### B G ####[place] [address] pH (Bld) 7.386 [pH] Normal 7.380-7.46 0 [facility] Comment on above: Performed By: #### B G ####[place] [address] pO2 See Comment Normal 74.0-108.0 [facility] Comment on above: Result Comment: The system has an atypical response when measuring this parameter. Unable to result. Suggest repeat order. Performed By: #### B G ####[place] [address] BMPon 01-25-2024 BUN/Creatinine Ratio 20.1 ratio Normal 10.0-22.0 [facility] Comment on above: Performed By: #### D IFF, LAC, MORPH, MG, PHOS, CAION, CBC, GFR, BMP ####[place] [address] Calcium [Mass/Vol] 7.6 mg/dL Low 8.7-10.4 [facility] Comment on above: Performed By: #### D IFF, LAC, MORPH, MG, PHOS, CAION, CBC, GFR, BMP ####[address] [place] [address] Chloride [Moles/Vol] 110 mmol/L Normal 98-110 [facility] Comment on above: Performed By: #### D IFF, LAC, MORPH, MG, PHOS, CAION, CBC, GFR, BMP ####[address] [address] CO2 [Moles/Vol] 28 mmol/L Normal 22-32 [facility] Comment on above: Performed By: #### D IFF, LAC, MORPH, MG, PHOS, CAION, CBC, GFR, BMP ####[address] [address] Creatinine [Mass/Vol] 2.93 mg/dL High 0.60-1.40 [facility] Comment on above: Result Comment: Test ing performed on [employer] analyzer using enzymatic creatinine methodology. Performed By: #### D IFF, LAC, MORPH, MG, PHOS, CAION, CBC, GFR, BMP ####[address] [address] Electrolyte Balance 9.0 mEq/L Normal 4.0-15.0 [facility] Comment on above: Performed By: #### D IFF, LAC, MORPH, MG, PHOS, CAION, CBC, GFR, BMP ####[address] [address] Glucose [Mass/Vol] 174 mg/dL High 82-115 [facility] Comment on above: Performed By: #### D IFF, LAC, MORPH, MG, PHOS, CAION, CBC, GFR, BMP ####[address] [address] Potassium [Moles/Vol] 3.2 mmol/L Low 3.5-5.0 [facility] Comment on above: Performed By: #### D IFF, LAC, MORPH, MG, PHOS, CAION, CBC, GFR, BMP ####[address] [address] Sodium [Moles/Vol] 147 mmol/L High 136-145 [facility] Comment on above: Performed By: #### D IFF, LAC, MORPH, MG, PHOS, CAION, CBC, GFR, BMP ####[place] [address] Urea nitrogen [Mass/Vol] 59.0 mg/dL High 8.0-22.0 [facility] Comment on above: Performed By: #### D IFF, LAC, MORPH, MG, PHOS, CAION, CBC, GFR, BMP ####[place] [address] CAIONon 01-25-2024 Calcium Ionized 0.81 mmol/L Critically abnormal 1.12-1.32 [facility] Comment on above: Performed By: #### M G, PHOS, K, CAION ####[place] [address] Calcium Ionized 0.82 mmol/L Low 1.12-1.32 [facility] Comment on above: Performed By: #### D IFF, LAC, MORPH, MG, PHOS, CAION, CBC, GFR, BMP ####[place] [address] CBCon 01-25-2024 Erythrocyte distribution width (RBC) [Ratio] 13.9 % Normal 11.5-15.5 [facility] Comment on above: Performed By: #### D IFF, LAC, MORPH, MG, PHOS, CAION, CBC, GFR, BMP ####[place] [address] Hematocrit (Bld) [Volume fraction] 32.9 % Low 40.0-52.0 [facility] Comment on above: Performed By: #### D IFF, LAC, MORPH, MG, PHOS, CAION, CBC, GFR, BMP ####[place] [address] Hgb 11.1 G/dL Low 13.0-17.5 [facility] Comment on above: Performed By: #### D IFF, LAC, MORPH, MG, PHOS, CAION, CBC, GFR, BMP ####[place] [address] MCH (RBC) [Entitic mass] 31.2 pg Normal 27.0-33.0 [facility] Comment on above: Performed By: #### D IFF, LAC, MORPH, MG, PHOS, CAION, CBC, GFR, BMP ####[place] [address] MCHC 33.8 G/dL Normal 32.0-36.0 [facility] Comment on above: Performed By: #### D IFF, LAC, MORPH, MG, PHOS, CAION, CBC, GFR, BMP ####[place] [address] MCV (RBC) [Entitic vol] 92.3 fL Normal 81.0-100.0 [facility] Comment on above: Performed By: #### D IFF, LAC, MORPH, MG, PHOS, CAION, CBC, GFR, BMP ####[place] [address] Platelet 57 10 3/mcL Low 150-450 [facility] Comment on above: Performed By: #### D IFF, LAC, MORPH, MG, PHOS, CAION, CBC, GFR, BMP ####[place] [address] Platelet mean volume (Bld) [Entitic vol] 9.8 fL Normal 6.4-10.5 [facility] Comment on above: Performed By: #### D IFF, LAC, MORPH, MG, PHOS, CAION, CBC, GFR, BMP ####[place] [address] RBC 3.57 10 6/mcL Low 4.50-6.00 [facility] Comment on above: Performed By: #### D IFF, LAC, MORPH, MG, PHOS, CAION, CBC, GFR, BMP ####[place] [address] WBC 9.3 10 3/mcL Normal 4.5-10.8 [facility] Comment on above: Performed By: #### D IFF, LAC, MORPH, MG, PHOS, CAION, CBC, GFR, BMP ####[place] [address] Elio 01-25-2024 Potassium [Moles/Vol] 3.3 mmol/L Low 3.5-5.0 [facility] Comment on above: Performed By: #### M BEREKET Coy K, CAION ####[address] [address] LABORATORYOrdered By: Lilia Graham on 01-25-2024 ACINETOBACTER CALCOACETICUS-BAUMANNII COMPLEX DNA:PRTHR:PT:BLD.POS GROWTH:ORD:NON-PROBE.AM P.TAR Not Detected *NA* (01/25/24 10:06 AM) Invalid Interpretation Code Not Detected [facility] GL SS BACTERIAL METHICILLIN RESISTANCE MECA+MECC GENES+SCCMEC+ORFX JUNCTION:PRTHR:PT:ISOLA TE/SPECIMEN:ORD:MOLGEN Not Applicable *NA* (01/25/24 10:06 AM) Invalid Interpretation Code Not Detected [facility] GL SS BACTEROIDES FRAGILIS DNA:PRTHR:PT:BLD.POS GROWTH:ORD:NON-PROBE.AM P.TAR Not Detected *NA* (01/25/24 10:06 AM) Invalid Interpretation Code Not Detected [facility] GL SS BCID Comment See Comment 1 (01/25/24 10:06 AM) Normal [facility] GL SS Comment on above: Interpretive Data: A ntimicrobial resistance can occur via multiple mechanisms. A Not Detected result for antimicrobial resistance gene(s) does not indicate antimicrobial susceptibility. Culture identification and susceptibility results to follow. If BCID panel was negative (Not Detected) for all targets, this does not exclude a blood stream infection. Our blood culture system detected growth. Culture identification and susceptibility testing (if appropriate) to follow. C. albicans DNA MICHELLE+non-probe Ql (Pos bld culture) Not Detected *NA* (01/25/24 10:06 AM) Invalid Interpretation Code Not Detected [facility] GL SS C. glabrata DNA MICHELLE+non-probe Ql (Pos bld culture) Not Detected *NA* (01/25/24 10:06 AM) Invalid Interpretation Code Not Detected [facility] GL SS C. krusei DNA MICHELLE+non-probe Ql (Pos bld culture) Not Detected *NA* (01/25/24 10:06 AM) Invalid Interpretation Code Not Detected [facility] GL SS C. parapsilosis DNA MICHELLE+non-probe Ql (Pos bld culture) Not Detected *NA* (01/25/24 10:06 AM) Invalid Interpretation Code Not Detected [facility] GL SS C. tropicalis DNA MICHELLE+non-probe Ql (Pos bld culture) Not Detected *NA* (01/25/24 10:06 AM) Invalid Interpretation Code Not Detected [facility] GL SS MARIA ALEJANDRA AURIS DNA:PRTHR:PT:BLD.POS GROWTH:ORD:NON-PROBE.AM P.TAR Not Detected *NA* (01/25/24 10:06 AM) Invalid Interpretation Code Not Detected [facility] GL SS Carbapenem resistance alphonso OXA-48-like gene [employer] Ql (Islt/Spec) Not Applicable *NA* (01/25/24 10:06 AM) Invalid Interpretation Code Not Detected [facility] GL SS Carbapenem resistance blaIMP gene [employer] Ql (Islt/Spec) Not Applicable *NA* (01/25/24 10:06 AM) Invalid Interpretation Code Not Detected [facility] GL SS Carbapenem resistance blaKPC gene [employer] Ql (Islt/Spec) Not Applicable *NA* (01/25/24 10:06 AM) Invalid Interpretation Code Not Detected [facility] GL SS Carbapenem resistance blaNDM gene [employer] Ql (Islt/Spec) Not Applicable *NA* (01/25/24 10:06 AM) Invalid Interpretation Code Not Detected [facility] GL SS Carbapenem resistance blaVIM gene [employer] Ql (Islt/Spec) Not Applicable *NA* (01/25/24 10:06 AM) Invalid Interpretation Code Not Detected [facility] GL SS Cephalosporin resistance alphonso(CTX-M) gene [employer] Ql (Islt/Spec) Not Applicable *NA* (01/25/24 10:06 AM) Invalid Interpretation Code Not Detected [facility] GL SS Colistin resistance mcr-1 gene [employer] Ql (Islt/Spec) Not Applicable *NA* (01/25/24 10:06 AM) Invalid Interpretation Code Not Detected [facility] GL SS CRYPTOCOCCUS GATTII+NEOFORMANS DNA:PRTHR:PT:BLD.POS GROWTH:ORD:NON-PROBE.AM P.TAR Not Detected *NA* (01/25/24 10:06 AM) Invalid Interpretation Code Not Detected [facility] GL SS E. cloacae complex DNA MICHELLE+non-probe Ql (Pos bld culture) Not Detected *NA* (01/25/24 10:06 AM) Invalid Interpretation Code Not Detected [facility] GL SS E. coli DNA MICHELLE+non-probe Ql (Pos bld culture) Not Detected *NA* (01/25/24 10:06 AM) Invalid Interpretation Code Not Detected [facility] GL SS ENTEROBACTERALES DNA:PRTHR:PT:BLD.POS GROWTH:ORD:NON-PROBE.AM P.TAR Not Detected *NA* (01/25/24 10:06 AM) Invalid Interpretation Code Not Detected [facility] GL SS ENTEROCOCCUS FAECALIS DNA:PRTHR:PT:BLD.POS GROWTH:ORD:NON-PROBE.AM P.TAR Not Detected *NA* (01/25/24 10:06 AM) Invalid Interpretation Code Not Detected [facility] GL SS ENTEROCOCCUS FAECIUM DNA:PRTHR:PT:BLD.POS GROWTH:ORD:NON-PROBE.AM P.TAR Not Detected *NA* (01/25/24 10:06 AM) Invalid Interpretation Code Not Detected [facility] GL SS H. influenzae DNA MICHELLE+non-probe Ql (Pos bld culture) Not Detected *NA* (01/25/24 10:06 AM) Invalid Interpretation Code Not Detected [facility] GL SS K. oxytoca DNA MICHELLE+non-probe Ql (Pos bld culture) Not Detected *NA* (01/25/24 10:06 AM) Invalid Interpretation Code Not Detected [facility] Auto Microbiology GL SS KLEBSIELLA AEROGENES DNA:PRTHR:PT:BLD.POS GROWTH:ORD:NON-PROBE.AM P.TAR Not Detected *NA* (01/25/24 10:06 AM) Invalid Interpretation Code Not Detected [facility] Auto Microbiology GL SS KLEBSIELLA PNEUMONIAE+KLEBSIELLA VARIICOLA+KLEBSIELLA QUASIPNEUMONIAE DNA:PRTHR:PT:BLD.POS GROWTH:ORD:NON-PROBE.AM P.TAR Not Detected *NA* (01/25/24 10:06 AM) Invalid Interpretation Code Not Detected [facility] Auto Microbiology GL SS L. monocytogenes DNA MICHELLE+non-probe Ql (Pos bld culture) Not Detected *NA* (01/25/24 10:06 AM) Invalid Interpretation Code Not Detected [facility] Auto Microbiology GL SS Methicillin resistance mecA+mecC genes Molgen Ql (Islt/Spec) Not Detected *NA* (01/25/24 10:06 AM) Invalid Interpretation Code Not Detected [facility] Auto Microbiology GL SS N. meningitidis DNA MICHELLE+non-probe Ql (Pos bld culture) Not Detected *NA* (01/25/24 10:06 AM) Invalid Interpretation Code Not Detected [facility] Auto Microbiology GL SS P. aeruginosa DNA MICHELLE+non-probe Ql (Pos bld culture) Not Detected *NA* (01/25/24 10:06 AM) Invalid Interpretation Code Not Detected [facility] Auto Microbiology GL SS Proteus sp DNA MICHELLE+non-probe Ql (Pos bld culture) Not Detected *NA* (01/25/24 10:06 AM) Invalid Interpretation Code Not Detected [facility] Auto Microbiology GL SS S. agalactiae DNA MICHELLE+non-probe Ql (Pos bld culture) Not Detected *NA* (01/25/24 10:06 AM) Invalid Interpretation Code Not Detected [facility] Auto Microbiology GL SS S. aureus DNA MICHELLE+non-probe Ql (Pos bld culture) Not Detected 2 *NA* (01/25/24 10:06 AM) Invalid Interpretation Code Not Detected [facility] Auto Microbiology GL SS Comment on above: Interpretive Data: I f Staphylococcus aureus is Detected, an Infectious Disease physician consult is required on identification. S. marcescens DNA MICHELLE+non-probe Ql (Pos bld culture) Not Detected *NA* (01/25/24 10:06 AM) Invalid Interpretation Code Not Detected [facility] Auto Microbiology GL SS S. pneumoniae DNA MICHELLE+non-probe Ql (Pos bld culture) Not Detected *NA* (01/25/24 10:06 AM) Invalid Interpretation Code Not Detected [facility] Auto Microbiology GL SS S. pyogenes DNA MICHELLE+non-probe Ql (Pos bld culture) Not Detected *NA* (01/25/24 10:06 AM) Invalid Interpretation Code Not Detected [facility] Auto Microbiology GL SS SALMONELLA SP DNA:PRTHR:PT:BLD.POS GROWTH:ORD:NON-PROBE.AM P.TAR Not Detected *NA* (01/25/24 10:06 AM) Invalid Interpretation Code Not Detected [facility] Auto Microbiology GL SS STAPHYLOCOCCUS EPIDERMIDIS DNA:PRTHR:PT:BLD.POS GROWTH:ORD:NON-PROBE.AM P.TAR Detected *ABN* (01/25/24 10:06 AM) Invalid Interpretation Code Not Detected [facility] Auto Microbiology GL SS STAPHYLOCOCCUS LUGDUNENSIS DNA:PRTHR:PT:BLD.POS GROWTH:ORD:NON-PROBE.AM P.TAR Not Detected *NA* (01/25/24 10:06 AM) Invalid Interpretation Code Not Detected [facility] Auto Microbiology GL SS Staphylococcus sp DNA MICHELLE+non-probe Ql (Pos bld culture) Detected *ABN* (01/25/24 10:06 AM) Invalid Interpretation Code Not Detected [facility] Auto Microbiology GL SS STENOTROPHOMONAS MALTOPHILIA DNA:PRTHR:PT:BLD.POS GROWTH:ORD:NON-PROBE.AM P.TAR Not Detected *NA* (01/25/24 10:06 AM) Invalid Interpretation Code Not Detected [facility] Auto Microbiology GL SS Streptococcus sp DNA MICHELLE+non-probe Ql (Pos bld culture) Not Detected *NA* (01/25/24 10:06 AM) Invalid Interpretation Code Not Detected [facility] Auto Microbiology GL SS Vancomycin resistance Preston + vanB genes Molgen Ql (Islt/Spec) Not Applicable *NA* (01/25/24 10:06 AM) Invalid Interpretation Code Not Detected AH Auto Microbiology GL SS LABORATORYOrdered By: SYSTEM SYSTEM on 01-25-2024 Band form neutrophils/100 WBC (Bld) 12.0 % High 0.0 - 5.0 % AH Workflow SS Basophils (Bld) [#/Vol] 0.0 103/mcL Normal 0.0 - 0.3 10^3/mcL AH Workflow SS Basophils/100 WBC (Bld) 0.0 % Normal 0.0 - 2.5 % AH Workflow SS Dohle body LM Ql (Bld) 1+ *NA* (01/25/24 4:07 AM) Invalid Interpretation Code AH Workflow SS Eosinophils (Bld) [#/Vol] 0.0 103/mcL Normal 0.0 - 0.7 10^3/mcL AH Workflow SS Eosinophils/100 WBC (Bld) 0.0 % Normal 0.0 - 6.0 % AH Workflow SS Lactate [Moles/Vol] 1.7 mmol/L Normal 0.5 - 2. 2 mmol/L AH ADM SS Comment on above: Result Comment: Spec imen icteric. Results may be affected. Lymphocytes (Bld) [#/Vol] 0.6 103/mcL Low 0.9 - 4.3 10^3/mcL AH Workflow SS Lymphocytes/100 WBC (Bld) 6.0 % Low 20.0 - 40.0 % AH Workflow SS Monocytes (Bld) [#/Vol] 0.1 103/mcL Normal 0.1 - 1.4 10^3/mcL AH Workflow SS Monocytes/100 WBC (Bld) 1.0 % Low 2.0 - 13.0 % AH Workflow SS Neutrophils (Bld) [#/Vol] 8.6 103/mcL High 2.3 - 8.1 10^3/mcL AH Workflow SS Neutrophils/100 WBC (Bld) 81.0 % High 50.0 - 75.0 % AH Workflow SS Nucleated RBC 0.0 /100 WBC Invalid Interpretation Code AH Workflow SS Platelets LM Ql (Bld) Decreased *NA* (01/25/24 4:07 AM) Invalid Interpretation Code Workflow SS RBC morphology finding Nom (Bld) Normal *NA* (01/25/24 4:07 AM) Invalid Interpretation Code Workflow SS Toxic granules LM Ql (Bld) 1+ *NA* (01/25/24 4:07 AM) Invalid Interpretation Code Workflow SS LACon 01-25-2024 Lactic Acid Lvl 1.7 mmol/L Normal 0.5-2.2 [facility] Comment on above: Result Comment: Spec imen icteric. Results may be affected. Performed By: #### D IFF, LAC, MORPH, MG, PHOS, CAION, CBC, GFR, BMP ####[place] [address] Lactic Acid Lvl 1.8 mmol/L Normal 0.5-2.2 [facility] Comment on above: Result Comment: Spec imen icteric. Results may be affected. Performed By: #### C AION, LAC ####[place] [address] Laboratory - Microbiology an d Antimicrobial susceptibilityOrdered By: [facility] on 01-25-2024 Bacteria identified Cx Nom (Bld) Culture has been received in lab and is no growth to date. Culture will be held for four weeks. [facility] Laboratory - Microbiology an d Antimicrobial susceptibilityOrdered By: Princess Jacobs on 01-25-2024 Bacteria identified Cx Nom (Bld) Staphylococcus coagulase negative Isolated from aerobe bottle only. Staphylococcus coagulase negative #2 Isolated from aerobe bottle only. Gram Positive Rods Isolated from anaerobe bottle only. 1 out of 2 sets positive Organism is a potential contaminant. Clinical Significance undetermined. Please contact Microbiology if further work-up is required. [facility] MGon 01-25-2024 Magnesium [Mass/Vol] 1.9 mg/dL Normal 1.6-2.4 [facility] Comment on above: Performed By: #### M G, PHOS, K, CAION ####[place] [id number] [place] [address] Magnesium [Mass/Vol] 2.0 mg/dL Normal 1.6-2.4 [facility] Comment on above: Performed By: #### D IFF, LAC, MORPH, MG, PHOS, CAION, CBC, GFR, BMP ####[place] [address] No Panel Informationon 01-24 Culture Urine No growth at 48 hours. [facility] No Panel InformationOrdered By: Princess Jacobs on 01-25-2024 GSAER Gram Positive Cocci [facility] GSANA Gram Positive Rods [facility] PHOSon 01-25-2024 Phosphate [Mass/Vol] 5.0 mg/dL Normal 2.4-5.1 [facility] Comment on above: Result Comment: No te - New Reference Range in effect 19 Performed By: #### M G, PHOS, K, CAION ####[place] [address] Phosphate [Mass/Vol] 4.5 mg/dL Normal 2.4-5.1 [facility] Comment on above: Result Comment: No te - New Reference Range in effect 19 Performed By: #### D IFF, LAC, MORPH, MG, PHOS, CAION, CBC, GFR, BMP ####[address] [address] TRIMETHOPRIM+SULFAMETHOXAZOL E:SUSC:PT:ISOLATE:ORDQN:MICOrdered By: Sandhya Barnes on 01-25-2024 Trimethoprim+Sulfametho xazole JD [Susc] Few Klebsiella pneumoniae Normal respiratory johnna absent. [facility] Comment on above: Requests for Mycopla sma, Legionella, Fungi, Mycobacteria, Chlamydia, and Viruses require ordering of those individual tests. Trimethoprim+Sulfamethoxazol e JD [[facility]Ordered By: Sandhya Barnes on 01-25-2024 GS Rare Gram Negative Rods [facility] Comment on above: Requests for Mycopla sma, Legionella, Fungi, Mycobacteria, Chlamydia, and Viruses require ordering of those individual tests. Klebsiella pneumoniae Klebsiella pneumoniae [facility] Comment on above: Requests for Mycopla sma, Legionella, Fungi, Mycobacteria, Chlamydia, and Viruses require ordering of those individual tests. XR CHEST 1 VIEWon 01-25-2024 XR CHEST [address] [facility] XR CHEST [address] [facility] XR CHOLANGIOGRAM IN ORon XR CHOLANGIOGRAM IN OR Normal [facility] .GFRon 01-24-2024 GFR 26 ml/min/1.73sqm [facility] Comment on above: Result Comment: GFR Population mean for , Non- Americans Ages 20-29 = 116 mL/min/1.73 sq.m. Ages 30-39 = 107 mL/min/1.73 sq.m. Ages 40-49 = 99 mL/min/1.73 sq.m. Ages 50-59 = 93 mL/min/1.73 sq.m. Ages 60-69 = 85 mL/min/1.73 sq.m. Ages 70+ = 75 mL/min/1.73 sq.m.Chronic Kidney Disease: Less than 60 mL/min/1.73 square metersEnd Stage Renal Disease: Less than 15 mL/min/1.73 square meters Performed By: #### G FR, BMP, PHOS, DIFF, CBC, MG, CAION, MORPH, LAC ####[place] [address] [place] [address] GFR Non- 22 ml/min/1.73sqm [facility] Comment on above: Result Comment: GFR Population mean for , Non- Americans Ages 20-29 = 116 mL/min/1.73 sq.m. Ages 30-39 = 107 mL/min/1.73 sq.m. Ages 40-49 = 99 mL/min/1.73 sq.m. Ages 50-59 = 93 mL/min/1.73 sq.m. Ages 60-69 = 85 mL/min/1.73 sq.m. Ages 70+ = 75 mL/min/1.73 sq.m.Chronic Kidney Disease: Less than 60 mL/min/1.73 square metersEnd Stage Renal Disease: Less than 15 mL/min/1.73 square meters Performed By: #### G FR, BMP, PHOS, DIFF, CBC, MG, CAION, MORPH, LAC ####[place] [id number] GFR 27 ml/min/1.73sqm [facility] Comment on above: Result Comment: GFR Population mean for , Non- Americans Ages 20-29 = 116 mL/min/1.73 sq.m. Ages 30-39 = 107 mL/min/1.73 sq.m. Ages 40-49 = 99 mL/min/1.73 sq.m. Ages 50-59 = 93 mL/min/1.73 sq.m. Ages 60-69 = 85 mL/min/1.73 sq.m. Ages 70+ = 75 mL/min/1.73 sq.m.Chronic Kidney Disease: Less than 60 mL/min/1.73 square metersEnd Stage Renal Disease: Less than 15 mL/min/1.73 square meters Performed By: #### C MP, CAION, DIFF, CBC, GFR, MORPH ####[address] [address] GFR Non- 22 ml/min/1.73sqm [facility] Comment on above: Result Comment: GFR Population mean for , Non- Americans Ages 20-29 = 116 mL/min/1.73 sq.m. Ages 30-39 = 107 mL/min/1.73 sq.m. Ages 40-49 = 99 mL/min/1.73 sq.m. Ages 50-59 = 93 mL/min/1.73 sq.m. Ages 60-69 = 85 mL/min/1.73 sq.m. Ages 70+ = 75 mL/min/1.73 sq.m.Chronic Kidney Disease: Less than 60 mL/min/1.73 square metersEnd Stage Renal Disease: Less than 15 mL/min/1.73 square meters Performed By: #### C MP, CAION, DIFF, CBC, GFR, MORPH ####[place] [address] .Manual Diffon 01-24-2024 Bands 27.0 % High 0.0-5.0 [facility] Comment on above: Performed By: #### G FR, BMP, PHOS, DIFF, CBC, MG, CAION, MORPH, LAC ####[place] [address] Basophil %, Manual 0.0 % Normal 0.0-2.5 [facility] Comment on above: Performed By: #### G FR, BMP, PHOS, DIFF, CBC, MG, CAION, MORPH, LAC ####[place] [address] Basophil, Abs Manual 0.0 10 3/mcL Normal 0.0-0.3 [facility] Comment on above: Performed By: #### G FR, BMP, PHOS, DIFF, CBC, MG, CAION, MORPH, LAC ####[place] [address] Eosinophil %, Manual 0.0 % Normal 0.0-6.0 [facility] Comment on above: Performed By: #### G FR, BMP, PHOS, DIFF, CBC, MG, CAION, MORPH, LAC ####[place] [address] Eosinophil, Abs Manual 0.0 10 3/mcL Normal 0.0-0.7 [facility] Comment on above: Performed By: #### G FR, BMP, PHOS, DIFF, CBC, MG, CAION, MORPH, LAC ####[place] [address] Lymphocyte %, Manual 13.0 % Low 20.0-40.0 [facility] Comment on above: Performed By: #### G FR, BMP, PHOS, DIFF, CBC, MG, CAION, MORPH, LAC ####[address] [place] [address] Lymphocyte, Abs Manual 1.0 10 3/mcL Normal 0.9-4.3 [facility] Comment on above: Performed By: #### G FR, BMP, PHOS, DIFF, CBC, MG, CAION, MORPH, LAC ####[address] [address] Metamyelocyte 6.0 % Normal [facility] Comment on above: Performed By: #### G FR, BMP, PHOS, DIFF, CBC, MG, CAION, MORPH, LAC ####[address] [address] Monocyte %, Manual 8.0 % Normal 2.0-13.0 [facility] Comment on above: Performed By: #### G FR, BMP, PHOS, DIFF, CBC, MG, CAION, MORPH, LAC ####[address] [address] Monocyte, Abs Manual 0.6 10 3/mcL Normal 0.1-1.4 [facility] Comment on above: Performed By: #### G FR, BMP, PHOS, DIFF, CBC, MG, CAION, MORPH, LAC ####[address] [address] Neutrophil %, Manual 46.0 % Low 50.0-75.0 [facility] Comment on above: Performed By: #### G FR, BMP, PHOS, DIFF, CBC, MG, CAION, MORPH, LAC ####[address] [address] Neutrophil, Abs Manual 5.5 10 3/mcL Normal 2.3-8.1 [facility] Comment on above: Performed By: #### G FR, BMP, PHOS, DIFF, CBC, MG, CAION, MORPH, LAC ####[address] [address] Nucleated RBC 0.0 /100 WBC Normal [facility] Comment on above: Performed By: #### G FR, BMP, PHOS, DIFF, CBC, MG, CAION, MORPH, LAC ####[address] [address] Bands 8.0 % High 0.0-5.0 [facility] Comment on above: Performed By: #### C MP, CAION, DIFF, CBC, GFR, MORPH ####[place] [address] Basophil %, Manual 0.0 % Normal 0.0-2.5 [facility] Comment on above: Performed By: #### C MP, CAION, DIFF, CBC, GFR, MORPH ####[place] [address] Basophil, Abs Manual 0.0 10 3/mcL Normal 0.0-0.3 [facility] Comment on above: Performed By: #### C MP, CAION, DIFF, CBC, GFR, MORPH ####[place] [address] Eosinophil %, Manual 0.0 % Normal 0.0-6.0 [facility] Comment on above: Performed By: #### C MP, CAION, DIFF, CBC, GFR, MORPH ####[place] [address] Eosinophil, Abs Manual 0.0 10 3/mcL Normal 0.0-0.7 [facility] Comment on above: Performed By: #### C MP, CAION, DIFF, CBC, GFR, MORPH ####[place] [address] Lymphocyte %, Manual 8.0 % Low 20.0-40.0 [facility] Comment on above: Performed By: #### C MP, CAION, DIFF, CBC, GFR, MORPH ####[place] [address] Lymphocyte, Abs Manual 0.4 10 3/mcL Low 0.9-4.3 [facility] Comment on above: Performed By: #### C MP, CAION, DIFF, CBC, GFR, MORPH ####[place] [address] Metamyelocyte 1.0 % Normal [facility] Comment on above: Performed By: #### C MP, CAION, DIFF, CBC, GFR, MORPH ####[place] [address] Monocyte %, Manual 3.0 % Normal 2.0-13.0 [facility] Comment on above: Performed By: #### C MP, CAION, DIFF, CBC, GFR, MORPH ####[place] [id number] Monocyte, Abs Manual 0.2 10 3/mcL Normal 0.1-1.4 [facility] Comment on above: Performed By: #### C MP, CAION, DIFF, CBC, GFR, MORPH ####[place] [address] Myelocyte 1.0 % Normal [facility] Comment on above: Performed By: #### C MP, CAION, DIFF, CBC, GFR, MORPH ####[place] [address] Neutrophil %, Manual 79.0 % High 50.0-75.0 [facility] Comment on above: Performed By: #### C MP, CAION, DIFF, CBC, GFR, MORPH ####[place] [address] Neutrophil, Abs Manual 4.6 10 3/mcL Normal 2.3-8.1 [facility] Comment on above: Performed By: #### C MP, CAION, DIFF, CBC, GFR, MORPH ####[place] [address] Nucleated RBC 0.0 /100 WBC Normal [facility] Comment on above: Performed By: #### C MP, CAION, DIFF, CBC, GFR, MORPH ####[place] [address] .Morphon 01-24-2024 RBC morphology finding Nom (Bld) Normal Normal [facility] Comment on above: Performed By: #### G FR, BMP, PHOS, DIFF, CBC, MG, CAION, MORPH, LAC ####[place] [address] Dohle Bodies 1+ Normal [facility] Comment on above: Performed By: #### G FR, BMP, PHOS, DIFF, CBC, MG, CAION, MORPH, LAC ####[place] [address] Platelet Estimate Decreased [facility] Comment on above: Performed By: #### G FR, BMP, PHOS, DIFF, CBC, MG, CAION, MORPH, LAC ####[place] [address] Toxic Gran 2+ Normal [facility] Comment on above: Performed By: #### G FR, BMP, PHOS, DIFF, CBC, MG, CAION, MORPH, LAC ####[place] [address] Dohle Bodies 2+ Normal [facility] Comment on above: Performed By: #### C MP, CAION, DIFF, CBC, GFR, MORPH ####[place] [address] Platelet Estimate Decreased [facility] Comment on above: Performed By: #### C MP, CAION, DIFF, CBC, GFR, MORPH ####[place] [address] Toxic Gran 1+ Normal [facility] Comment on above: Performed By: #### C MP, CAION, DIFF, CBC, GFR, MORPH ####[place] [address] Vacuolated Neutrophils 1+ Normal [facility] Comment on above: Performed By: #### C MP, CAION, DIFF, CBC, GFR, MORPH ####[place] [address] BGon 01-24-2024 Base excess Calc (Bld) [Moles/Vol] -6.9000 mmol/L [facility] Comment on above: Performed By: #### B G ####[place] [address] CO2 [Moles/Vol] 21.7 mmol/L Low 22.0-30.0 [facility] Comment on above: Performed By: #### B G ####[place] [address] HCO3 (Bld) [Moles/Vol] 20.3 mmol/L Low 21.0-29.0 [facility] Comment on above: Performed By: #### B G ####[place] [id number] Oxygen (Bld) [Partial pressure] 191.2 mm[Hg] High 74.0-108.0 [facility] Comment on above: Performed By: #### B G ####[place] [address] Oxygen saturation in Blood 99.2 % High 92.0-96.0 [facility] Comment on above: Performed By: #### B G ####[place] [address] pCO2 47.2 mmHg High 32.0-46.0 [facility] Comment on above: Performed By: #### B G ####[place] [address] pH (Bld) 7.251 [pH] Low 7.380-7.46 0 [facility] Comment on above: Performed By: #### B G ####[place] [id number] Base excess Calc (Bld) [Moles/Vol] -3.7000 mmol/L Normal [facility] Comment on above: Performed By: #### B ALEJANDRA, GLUOR, HGBOR, CAOR, BG, HCTOR, KOR, NAOR ####[address] [address] CO2 [Moles/Vol] 23.0 mmol/L Normal 22.0-30.0 [facility] Comment on above: Performed By: #### B ALEJANDRA, GLUOR, HGBOR, CAOR, BG, HCTOR, KOR, NAOR ####[address] [address] HCO3 (Bld) [Moles/Vol] 21.8 mmol/L Normal 21.0-29.0 [facility] Comment on above: Performed By: #### B ALEJANDRA, GLUOR, HGBOR, CAOR, BG, HCTOR, KOR, NAOR ####[place] [id number] Oxygen (Bld) [Partial pressure] 89.5 mm[Hg] Normal 74.0-108.0 [facility] Comment on above: Performed By: #### B ALEJANDRA, GLUOR, HGBOR, CAOR, BG, HCTOR, KOR, NAOR ####[address] [address] Oxygen saturation in Blood 96.9 % High 92.0-96.0 [facility] Comment on above: Performed By: #### B ALEJANDRA, GLUOR, HGBOR, CAOR, BG, HCTOR, KOR, NAOR ####[address] [address] pCO2 41.1 mmHg Normal 32.0-46.0 [facility] Comment on above: Performed By: #### B ALEJANDRA, GLUOR, HGBOR, CAOR, BG, HCTOR, KOR, NAOR ####[address] [address] pH (Bld) 7.342 [pH] Low 7.380-7.46 0 [facility] Comment on above: Performed By: #### B ALEJANDRA, GLUOR, HGBOR, CAOR, BG, HCTOR, KOR, NAOR ####[address] [address] Base excess Calc (Bld) [Moles/Vol] -2.4000 mmol/L Normal [facility] Comment on above: Performed By: #### B G ####[address] [address] CO2 [Moles/Vol] 24.2 mmol/L Normal 22.0-30.0 [facility] Comment on above: Performed By: #### B G ####[address] [address] HCO3 (Bld) [Moles/Vol] 22.9 mmol/L Normal 21.0-29.0 [facility] Comment on above: Performed By: #### B G ####[address] [address] Oxygen (Bld) [Partial pressure] 86.8 mm[Hg] Normal 74.0-108.0 [facility] Comment on above: Performed By: #### B G ####[address] [address] Oxygen saturation in Blood 96.5 % High 92.0-96.0 [facility] Comment on above: Performed By: #### B G ####[place] [address] [place] [address] pCO2 41.7 mmHg Normal 32.0-46.0 [facility] Comment on above: Performed By: #### B G ####[address] [address] pH (Bld) 7.358 [pH] Low 7.380-7.46 0 [facility] Comment on above: Performed By: #### B G ####[address] [address] Base excess Calc (Bld) [Moles/Vol] -2.3000 mmol/L Normal [facility] Comment on above: Performed By: #### B G ####[place] [id number] CO2 [Moles/Vol] 24.5 mmol/L Normal 22.0-30.0 [facility] Comment on above: Performed By: #### B G ####[address] [address] HCO3 (Bld) [Moles/Vol] 23.2 mmol/L Normal 21.0-29.0 [facility] Comment on above: Performed By: #### B G ####[address] [address] Oxygen (Bld) [Partial pressure] 81.7 mm[Hg] Normal 74.0-108.0 [facility] Comment on above: Performed By: #### B G ####[address] [address] Oxygen saturation in Blood 95.6 % Normal 92.0-96.0 [facility] Comment on above: Performed By: #### B G ####[place] [address] pCO2 42.4 mmHg Normal 32.0-46.0 [facility] Comment on above: Performed By: #### B G ####[address] [address] pH (Bld) 7.356 [pH] Low 7.380-7.46 0 [facility] Comment on above: Performed By: #### B G ####[address] [address] BGOHon 01-24-2024 Patient Location OPEN HEART Normal [facility] Comment on above: Performed By: #### B ALEJANDRA, GLUOR, HGBOR, CAOR, BG, HCTOR, KOR, NAOR ####[place] [address] BMPon 01-24-2024 BUN/Creatinine Ratio 19.0 ratio Normal 10.0-22.0 [facility] Comment on above: Performed By: #### G FR, BMP, PHOS, DIFF, CBC, MG, CAION, MORPH, LAC ####[place] [id number] Calcium [Mass/Vol] 8.8 mg/dL Normal 8.7-10.4 [facility] Comment on above: Performed By: #### G FR, BMP, PHOS, DIFF, CBC, MG, CAION, MORPH, LAC ####[address] [address] Chloride [Moles/Vol] 111 mmol/L High 98-110 [facility] Comment on above: Performed By: #### G FR, BMP, PHOS, DIFF, CBC, MG, CAION, MORPH, LAC ####[address] [address] CO2 [Moles/Vol] 23 mmol/L Normal 22-32 [facility] Comment on above: Performed By: #### G FR, BMP, PHOS, DIFF, CBC, MG, CAION, MORPH, LAC ####[address] [address] Creatinine [Mass/Vol] 2.90 mg/dL High 0.60-1.40 [facility] Comment on above: Result Comment: Test ing performed on Zeppelin analyzer using enzymatic creatinine methodology. Performed By: #### G FR, BMP, PHOS, DIFF, CBC, MG, CAION, MORPH, LAC ####[place] [address] Electrolyte Balance 11.0 mEq/L Normal 4.0-15.0 [facility] Comment on above: Performed By: #### G FR, BMP, PHOS, DIFF, CBC, MG, CAION, MORPH, LAC ####[place] [address] Glucose [Mass/Vol] 138 mg/dL High 82-115 [facility] Comment on above: Performed By: #### G FR, BMP, PHOS, DIFF, CBC, MG, CAION, MORPH, LAC ####[place] [address] Potassium [Moles/Vol] 4.3 mmol/L Normal 3.5-5.0 [facility] Comment on above: Performed By: #### G FR, BMP, PHOS, DIFF, CBC, MG, CAION, MORPH, LAC ####[place] [address] Sodium [Moles/Vol] 145 mmol/L Normal 136-145 [facility] Comment on above: Performed By: #### G FR, BMP, PHOS, DIFF, CBC, MG, CAION, MORPH, LAC ####[place] [address] Urea nitrogen [Mass/Vol] 55.0 mg/dL High 8.0-22.0 [facility] Comment on above: Performed By: #### G FR, BMP, PHOS, DIFF, CBC, MG, CAION, MORPH, LAC ####[place] [address] CAIONo 01-24-2024 Calcium Ionized 0.83 mmol/L Low 1.12-1.32 [facility] Comment on above: Performed By: #### C AION, LAC ####[place] [address] Calcium Ionized 0.96 mmol/L Low 1.12-1.32 [facility] Comment on above: Performed By: #### G FR, BMP, PHOS, DIFF, CBC, MG, CAION, MORPH, LAC ####[place] [address] Calcium Ionized 0.83 mmol/L Low .- [facility] Comment on above: Performed By: #### C MP, CAION, DIFF, CBC, GFR, MORPH ####[place] [address] CAORon 01-24-2024 Calcium Ionized OR 0.81 mmol/L Critically abnormal .- [facility] Comment on above: Performed By: #### B ALEJANDRA, GLUOR, HGBOR, CAOR, BG, HCTOR, KOR, NAOR ####[place] [address] CBCon 01-24-2024 Erythrocyte distribution width (RBC) [Ratio] 14.4 % Normal 11.5-15.5 [facility] Comment on above: Performed By: #### G FR, BMP, PHOS, DIFF, CBC, MG, CAION, MORPH, LAC ####[place] [address] Hematocrit (Bld) [Volume fraction] 38.2 % Low 40.0-52.0 [facility] Comment on above: Performed By: #### G FR, BMP, PHOS, DIFF, CBC, MG, CAION, MORPH, LAC ####[place] [address] Hgb 12.5 G/dL Low 13.0-17.5 [facility] Comment on above: Performed By: #### G FR, BMP, PHOS, DIFF, CBC, MG, CAION, MORPH, LAC ####[place] [address] MCH (RBC) [Entitic mass] 30.8 pg Normal 27.0-33.0 [facility] Comment on above: Performed By: #### G FR, BMP, PHOS, DIFF, CBC, MG, CAION, MORPH, LAC ####[place] [address] MCHC 32.7 G/dL Normal 32.0-36.0 [facility] Comment on above: Performed By: #### G FR, BMP, PHOS, DIFF, CBC, MG, CAION, MORPH, LAC ####[place] [address] MCV (RBC) [Entitic vol] 94.0 fL Normal 81.0-100.0 [facility] Comment on above: Performed By: #### G FR, BMP, PHOS, DIFF, CBC, MG, CAION, MORPH, LAC ####[place] [address] Platelet 58 10 3/mcL Low 150-450 [facility] Comment on above: Performed By: #### G FR, BMP, PHOS, DIFF, CBC, MG, CAION, MORPH, LAC ####[place] [address] Platelet mean volume (Bld) [Entitic vol] 10.3 fL Normal 6.4-10.5 [facility] Comment on above: Performed By: #### G FR, BMP, PHOS, DIFF, CBC, MG, CAION, MORPH, LAC ####[place] [address] RBC 4.07 10 6/mcL Low 4.50-6.00 [facility] Comment on above: Performed By: #### G FR, BMP, PHOS, DIFF, CBC, MG, CAION, MORPH, LAC ####[place] [address] WBC 7.6 10 3/mcL Normal 4.5-10.8 [facility] Comment on above: Performed By: #### G FR, BMP, PHOS, DIFF, CBC, MG, CAION, MORPH, LAC ####[place] [address] Erythrocyte distribution width (RBC) [Ratio] 14.2 % Normal 11.5-15.5 [facility] Comment on above: Performed By: #### C MP, CAION, DIFF, CBC, GFR, MORPH ####[place] [address] Hematocrit (Bld) [Volume fraction] 36.4 % Low 40.0-52.0 [facility] Comment on above: Performed By: #### C MP, CAION, DIFF, CBC, GFR, MORPH ####[place] [address] Hgb 11.8 G/dL Low 13.0-17.5 [facility] Comment on above: Performed By: #### C MP, CAION, DIFF, CBC, GFR, MORPH ####[place] [address] MCH (RBC) [Entitic mass] 30.2 pg Normal 27.0-33.0 [facility] Comment on above: Performed By: #### C MP, CAION, DIFF, CBC, GFR, MORPH ####[place] [address] MCHC 32.5 G/dL Normal 32.0-36.0 [facility] Comment on above: Performed By: #### C MP, CAION, DIFF, CBC, GFR, MORPH ####[place] [address] MCV (RBC) [Entitic vol] 92.9 fL Normal 81.0-100.0 [facility] Comment on above: Performed By: #### C MP, CAION, DIFF, CBC, GFR, MORPH ####[place] [address] Platelet 67 10 3/mcL Low 150-450 [facility] Comment on above: Performed By: #### C MP, CAION, DIFF, CBC, GFR, MORPH ####[place] [address] Platelet mean volume (Bld) [Entitic vol] 10.5 fL Normal 6.4-10.5 [facility] Comment on above: Performed By: #### C MP, CAION, DIFF, CBC, GFR, MORPH ####[place] [address] RBC 3.92 10 6/mcL Low 4.50-6.00 [facility] Comment on above: Performed By: #### C MP, CAION, DIFF, CBC, GFR, MORPH ####[place] [address] WBC 5.4 10 3/mcL Normal 4.5-10.8 [facility] Comment on above: Performed By: #### C MP, CAION, DIFF, CBC, GFR, MORPH ####[place] [address] CMPon 01-24-2024 Albumin Level 2.2 G/dL Low 3.2-4.8 [facility] Comment on above: Performed By: #### C MP, CAION, DIFF, CBC, GFR, MORPH ####[place] [address] Albumin/Globulin [Mass ratio] 0.7 {ratio} Low 0.9-1.6 [facility] Comment on above: Performed By: #### C MP, CAION, DIFF, CBC, GFR, MORPH ####[place] [address] ALP [Catalytic activity/Vol] 50 U/L Normal 38-126 [facility] Comment on above: Performed By: #### C MP, CAION, DIFF, CBC, GFR, MORPH ####[address] [address] ALT [Catalytic activity/Vol] 61 U/L High 12-55 [facility] Comment on above: Performed By: #### C MP, CAION, DIFF, CBC, GFR, MORPH ####[address] [address] AST [Catalytic activity/Vol] 112 U/L High 8-34 [facility] Comment on above: Performed By: #### C MP, CAION, DIFF, CBC, GFR, MORPH ####[place] [address] Bili Total 1.40 mg/dL High 0.20-1.20 [facility] Comment on above: Result Comment: Use of this assay is not recommended for patients undergoing treatment with eltrombopag due to the potential for falsely elevated results. Performed By: #### C MP, CAION, DIFF, CBC, GFR, MORPH ####[place] [address] BUN/Creatinine Ratio 18.3 ratio Normal 10.0-22.0 [facility] Comment on above: Performed By: #### C MP, CAION, DIFF, CBC, GFR, MORPH ####[place] [address] Calcium [Mass/Vol] 7.1 mg/dL Low 8.7-10.4 [facility] Comment on above: Performed By: #### C MP, CAION, DIFF, CBC, GFR, MORPH ####[place] [address] Chloride [Moles/Vol] 108 mmol/L Normal 98-110 [facility] Comment on above: Performed By: #### C MP, CAION, DIFF, CBC, GFR, MORPH ####[place] [address] CO2 [Moles/Vol] 25 mmol/L Normal 22-32 [facility] Comment on above: Performed By: #### C MP, CAION, DIFF, CBC, GFR, MORPH ####[place] [address] Creatinine [Mass/Vol] 2.84 mg/dL High 0.60-1.40 [facility] Comment on above: Result Comment: Test ing performed on Zeppelin analyzer using enzymatic creatinine methodology. Performed By: #### C MP, CAION, DIFF, CBC, GFR, MORPH ####[place] [address] Electrolyte Balance 10.0 mEq/L Normal 4.0-15.0 [facility] Comment on above: Performed By: #### C MP, CAION, DIFF, CBC, GFR, MORPH ####[place] [address] Globulin 3.0 G/dL Normal 1.5-3.8 [facility] Comment on above: Performed By: #### C MP, CAION, DIFF, CBC, GFR, MORPH ####[place] [address] Glucose [Mass/Vol] 191 mg/dL High 82-115 [facility] Comment on above: Performed By: #### C MP, CAION, DIFF, CBC, GFR, MORPH ####[address] [address] Potassium [Moles/Vol] 4.0 mmol/L Normal 3.5-5.0 [facility] Comment on above: Performed By: #### C MP, CAION, DIFF, CBC, GFR, MORPH ####[address] [address] Sodium [Moles/Vol] 143 mmol/L Normal 136-145 [facility] Comment on above: Performed By: #### C MP, CAION, DIFF, CBC, GFR, MORPH ####[place] [address] Total Protein 5.2 G/dL Low 5.7-8.2 [facility] Comment on above: Performed By: #### C MP, CAION, DIFF, CBC, GFR, MORPH ####[address] [address] Urea nitrogen [Mass/Vol] 52.0 mg/dL High 8.0-22.0 [facility] Comment on above: Performed By: #### C MP, CAION, DIFF, CBC, GFR, MORPH ####[place] [address] GLUORon 01-24-2024 Glucose [Mass/Vol] 133 mg/dL High 82-115 [facility] Comment on above: Performed By: #### B ALEJANDRA, GLUOR, HGBOR, CAOR, BG, HCTOR, KOR, NAOR ####[place] [id number] HCTORon 01-24-2024 Hematocrit (Bld) [Volume fraction] 38.0 % Low 42.0-52.0 [facility] Comment on above: Performed By: #### B ALEJANDRA, GLUOR, HGBOR, CAOR, BG, HCTOR, KOR, NAOR ####[place] [address] HGBORon 01-24-2024 Hemoglobin OR 12.9 G/dL Low 13.0-17.5 [facility] Comment on above: Performed By: #### B ALEJANDRA, GLUOR, HGBOR, CAOR, BG, HCTOR, KOR, NAOR ####[facility] [place] [address] KORon 01-24-2024 Potassium [Moles/Vol] 4.3 mmol/L Normal 3.5-5.0 [facility] Comment on above: Performed By: #### B ALEJANDRA, GLUOR, HGBOR, CAOR, BG, HCTOR, KOR, NAOR ####[facility] [place] [address] LABORATORYOrdered By: SYSTEM SYSTEM on 01-24-2024 Lactate [Moles/Vol] 1.8 mmol/L Normal 0.5 - 2. 2 mmol/L AH ADM SS Comment on above: Result Comment: Spec imen icteric. Results may be affected. Band form neutrophils/100 WBC (Bld) 27.0 % High 0.0 - 5.0 % AH Workflow SS Basophils (Bld) [#/Vol] 0.0 103/mcL Normal 0.0 - 0.3 10^3/mcL AH Workflow SS Basophils/100 WBC (Bld) 0.0 % Normal 0.0 - 2.5 % AH Workflow SS Dohle body LM Ql (Bld) 1+ *NA* (01/24/24 12:34 PM) Invalid Interpretation Code AH Workflow SS Eosinophils (Bld) [#/Vol] 0.0 103/mcL Normal 0.0 - 0.7 10^3/mcL AH Workflow SS Eosinophils/100 WBC (Bld) 0.0 % Normal 0.0 - 6.0 % AH Workflow SS Lactate [Moles/Vol] 2.3 mmol/L High 0.5 - 2. 2 mmol/L AH ADM SS Lymphocytes (Bld) [#/Vol] 1.0 103/mcL Normal 0.9 - 4.3 10^3/mcL AH Workflow SS Lymphocytes/100 WBC (Bld) 13.0 % Low 20.0 - 40.0 % AH Workflow SS Metamyelocytes/100 WBC (Bld) 6.0 % Invalid Interpretation Code AH Workflow SS Monocytes (Bld) [#/Vol] 0.6 103/mcL Normal 0.1 - 1.4 10^3/mcL AH Workflow SS Monocytes/100 WBC (Bld) 8.0 % Normal 2.0 - 13.0 % AH Workflow SS Neutrophils (Bld) [#/Vol] 5.5 103/mcL Normal 2.3 - 8.1 10^3/mcL AH Workflow SS Neutrophils/100 WBC (Bld) 46.0 % Low 50.0 - 75.0 % AH Workflow SS Nucleated RBC 0.0 /100 WBC Invalid Interpretation Code AH Workflow SS Platelets LM Ql (Bld) Decreased *NA* (01/24/24 12:34 PM) Invalid Interpretation Code Workflow SS RBC morphology finding Nom (Bld) Normal *NA* (01/24/24 12:34 PM) Invalid Interpretation Code AH Workflow SS Toxic granules LM Ql (Bld) 2+ *NA* (01/24/24 12:34 PM) Invalid Interpretation Code AH Workflow SS Troponin I.cardiac DL <= 0.01 ng/mL [Mass/Vol] 59 ng/L High 0 - 54 ng/L ADM SS Comment on above: Interpretive Data: High Sensitive Troponin I Reference Ranges: Female: 0-34 ng/L Male: 0-54 ng/L Testing performed on [employer] analyzer using direct chemiluminescent technology. Dohle body LM Ql (Bld) 2+ *NA* (01/24/24 3:45 AM) Invalid Interpretation Code Workflow SS Metamyelocytes/100 WBC (Bld) 1.0 % Invalid Interpretation Code Workflow SS Myelocytes/100 WBC (Bld) 1.0 % Invalid Interpretation Code Workflow SS Vacuolated Neutrophils 1+ *NA* (01/24/24 3:45 AM) Invalid Interpretation Code Workflow SS LABORATORYOrdered By: Radha Gordillo on 01-24-2024 Calcium Ionized OR 0.81 mmol/L Invalid Interpretation Code 1.12 - 1.32 mmol/L Main Rapid Comm SS Glucose [Mass/Vol] 133 mg/dL High 82 - 115 mg/dL Main Rapid Comm SS Hematocrit (Bld) [Volume fraction] 38.0 % Low 42.0 - 52.0 % Main Rapid Comm SS Hemoglobin OR 12.9 G/dL Low 13.0 - 17.5 G/dL Main Rapid Comm SS Patient Location [facility] (01/24/24 11:23 AM) Normal Chemistry S Potassium [Moles/Vol] 4.3 mmol/L Normal 3.5 - 5.0 mEq/L AH Main Rapid Comm SS Sodium [Moles/Vol] 141 mmol/L Normal 136 - 145 mEq/L Main Rapid Comm SS LACon 01-24-2024 Lactic Acid Lvl 2.3 mmol/L High 0.5-2.2 [facility] Comment on above: Performed By: #### G FR, BMP, PHOS, DIFF, CBC, MG, CAION, MORPH, LAC ####[place] [address] Lactic Acid Lvl 1.6 mmol/L Normal 0.5-2.2 [facility] Comment on above: Performed By: #### L AC ####[place] [address] MGon 01-24-2024 Magnesium [Mass/Vol] 2.2 mg/dL Normal 1.6-2.4 [facility] Comment on above: Performed By: #### G FR, BMP, PHOS, DIFF, CBC, MG, CAION, MORPH, LAC ####[place] [address] NAORon 01-24-2024 Sodium [Moles/Vol] 141 mmol/L Normal 136-145 [facility] Comment on above: Performed By: #### B ALEJANDRA, GLUOR, HGBOR, CAOR, BG, HCTOR, KOR, NAOR ####[place] [address] PHOSon 01-24-2024 Phosphate [Mass/Vol] 7.9 mg/dL High 2.4-5.1 [facility] MA[facility] Comment on above: Result Comment: No te - New Reference Range in effect 19 Performed By: #### G FR, BMP, PHOS, DIFF, CBC, MG, CAION, MORPH, LAC ####[place] [address] TROPHSon 01-24-2024 High Sensitivity Troponin I 59 ng/L High 0-54 [facility] MA[facility] Comment on above: Result Comment: High Sensitive Troponin I Reference Ranges:Female: 0-34 ng/LMale: 0-54 ng/LTesting performed on [employer] analyzer using direct chemiluminescent technology. Performed By: #### T [facility] ####[address] [address] XR CHEST 1 VIEWon 01-24-2024 X[address] CHEST [address] [facility] XR CHEST 1 VIEW Normal [facility] XR CHEST [address] [facility] XR CHEST [address] [facility] .GFRon 01-23-2024 GFR Non- 22 ml/min/1.73sqm [facility] MAIN Comment on above: Result Comment: GFR Population mean for , Non- Americans Ages 20-29 = 116 mL/min/1.73 sq.m. Ages 30-39 = 107 mL/min/1.73 sq.m. Ages 40-49 = 99 mL/min/1.73 sq.m. Ages 50-59 = 93 mL/min/1.73 sq.m. Ages 60-69 = 85 mL/min/1.73 sq.m. Ages 70+ = 75 mL/min/1.73 sq.m.Chronic Kidney Disease: Less than 60 mL/min/1.73 square metersEnd Stage Renal Disease: Less than 15 mL/min/1.73 square meters Performed By: #### C MP, CBC, GFR, MG, PHOS, TROPHS, DIFF, CAION, MORPH, LAC ####[place] [address] [place] [address] GFR 26 ml/min/1.73sqm [facility] MAIN Comment on above: Result Comment: GFR Population mean for , Non- Americans Ages 20-29 = 116 mL/min/1.73 sq.m. Ages 30-39 = 107 mL/min/1.73 sq.m. Ages 40-49 = 99 mL/min/1.73 sq.m. Ages 50-59 = 93 mL/min/1.73 sq.m. Ages 60-69 = 85 mL/min/1.73 sq.m. Ages 70+ = 75 mL/min/1.73 sq.m.Chronic Kidney Disease: Less than 60 mL/min/1.73 square metersEnd Stage Renal Disease: Less than 15 mL/min/1.73 square meters Performed By: #### C MP, CBC, GFR, MG, PHOS, TROPHS, DIFF, CAION, MORPH, LAC ####[address] [address] GFR 26 ml/min/1.73sqm [facility] MAIN Comment on above: Result Comment: GFR Population mean for , Non- Americans Ages 20-29 = 116 mL/min/1.73 sq.m. Ages 30-39 = 107 mL/min/1.73 sq.m. Ages 40-49 = 99 mL/min/1.73 sq.m. Ages 50-59 = 93 mL/min/1.73 sq.m. Ages 60-69 = 85 mL/min/1.73 sq.m. Ages 70+ = 75 mL/min/1.73 sq.m.Chronic Kidney Disease: Less than 60 mL/min/1.73 square metersEnd Stage Renal Disease: Less than 15 mL/min/1.73 square meters Performed By: #### B MP, CBC, MORPH, LAC, DIFF, GFR ####[place] [address] GFR Non- 22 ml/min/1.73sqm [facility] MAIN Comment on above: Result Comment: GFR Population mean for , Non- Americans Ages 20-29 = 116 mL/min/1.73 sq.m. Ages 30-39 = 107 mL/min/1.73 sq.m. Ages 40-49 = 99 mL/min/1.73 sq.m. Ages 50-59 = 93 mL/min/1.73 sq.m. Ages 60-69 = 85 mL/min/1.73 sq.m. Ages 70+ = 75 mL/min/1.73 sq.m.Chronic Kidney Disease: Less than 60 mL/min/1.73 square metersEnd Stage Renal Disease: Less than 15 mL/min/1.73 square meters Performed By: #### B MP, CBC, MORPH, LAC, DIFF, GFR ####[place] [id number] .Manual Diffon 01-23-2024 Bands 13.0 % High 0.0-5.0 [facility] MAIN Comment on above: Performed By: #### C MP, CBC, GFR, MG, PHOS, TROPHS, DIFF, CAION, MORPH, LAC ####[place] [address] Basophil %, Manual 0.0 % Normal 0.0-2.5 [facility] MAIN Comment on above: Performed By: #### C MP, CBC, GFR, MG, PHOS, TROPHS, DIFF, CAION, MORPH, LAC ####[place] [address] Basophil, Abs Manual 0.0 10 3/mcL Normal 0.0-0.3 [facility] Comment on above: Performed By: #### C MP, CBC, GFR, MG, PHOS, TROPHS, DIFF, CAION, MORPH, LAC ####[place] [address] Eosinophil %, Manual 0.0 % Normal 0.0-6.0 [facility] Comment on above: Performed By: #### C MP, CBC, GFR, MG, PHOS, TROPHS, DIFF, CAION, MORPH, LAC ####[place] [address] Eosinophil, Abs Manual 0.0 10 3/mcL Normal 0.0-0.7 [facility] Comment on above: Performed By: #### C MP, CBC, GFR, MG, PHOS, TROPHS, DIFF, CAION, MORPH, LAC ####[place] [address] Lymphocyte %, Manual 8.0 % Low 20.0-40.0 [facility] Comment on above: Performed By: #### C MP, CBC, GFR, MG, PHOS, TROPHS, DIFF, CAION, MORPH, LAC ####[place] [address] Lymphocyte, Abs Manual 0.4 10 3/mcL Low 0.9-4.3 [facility] Comment on above: Performed By: #### C MP, CBC, GFR, MG, PHOS, TROPHS, DIFF, CAION, MORPH, LAC ####[address] [address] Metamyelocyte 1.0 % Normal [facility] Comment on above: Performed By: #### C MP, CBC, GFR, MG, PHOS, TROPHS, DIFF, CAION, MORPH, LAC ####[address] [address] Monocyte %, Manual 8.0 % Normal 2.0-13.0 [facility] Comment on above: Performed By: #### C MP, CBC, GFR, MG, PHOS, TROPHS, DIFF, CAION, MORPH, LAC ####[address] [address] Monocyte, Abs Manual 0.3 10 3/mcL Normal 0.1-1.4 [facility] Comment on above: Performed By: #### C MP, CBC, GFR, MG, PHOS, TROPHS, DIFF, CAION, MORPH, LAC ####[place] [id number] Neutrophil %, Manual 70.0 % Normal 50.0-75.0 [facility] Comment on above: Performed By: #### C MP, CBC, GFR, MG, PHOS, TROPHS, DIFF, CAION, MORPH, LAC ####[address] [address] Neutrophil, Abs Manual 3.6 10 3/mcL Normal 2.3-8.1 [facility] Comment on above: Performed By: #### C MP, CBC, GFR, MG, PHOS, TROPHS, DIFF, CAION, MORPH, LAC ####[address] [address] Nucleated RBC 0.0 /100 WBC Normal [facility] Comment on above: Performed By: #### C MP, CBC, GFR, MG, PHOS, TROPHS, DIFF, CAION, MORPH, LAC ####[address] [address] Bands 20.0 % High 0.0-5.0 [facility] Comment on above: Performed By: #### B MP, CBC, MORPH, LAC, DIFF, GFR ####[address] [address] Basophil %, Manual 1.0 % Normal 0.0-2.5 [facility] Comment on above: Performed By: #### B MP, CBC, MORPH, LAC, DIFF, GFR ####[address] [address] Basophil, Abs Manual 0.0 10 3/mcL Normal 0.0-0.3 [facility] Comment on above: Performed By: #### B MP, CBC, MORPH, LAC, DIFF, GFR ####[place] [id number] Eosinophil %, Manual 2.0 % Normal 0.0-6.0 [facility] Comment on above: Performed By: #### B MP, CBC, MORPH, LAC, DIFF, GFR ####[place] [id number] Eosinophil, Abs Manual 0.1 10 3/mcL Normal 0.0-0.7 [facility] Comment on above: Performed By: #### B MP, CBC, MORPH, LAC, DIFF, GFR ####[place] [address]110 Lymphocyte %, Manual 7.0 % Low 20.0-40.0 [facility] Comment on above: Performed By: #### B MP, CBC, MORPH, LAC, DIFF, GFR ####[address] [address] Lymphocyte, Abs Manual 0.2 10 3/mcL Low 0.9-4.3 [facility] Comment on above: Performed By: #### B MP, CBC, MORPH, LAC, DIFF, GFR ####[place] [id number] Metamyelocyte 19.0 % Normal [facility] Comment on above: Performed By: #### B MP, CBC, MORPH, LAC, DIFF, GFR ####[place] [address] Monocyte %, Manual 10.0 % Normal 2.0-13.0 [facility] Comment on above: Performed By: #### B MP, CBC, MORPH, LAC, DIFF, GFR ####[place] [address] Monocyte, Abs Manual 0.3 10 3/mcL Normal 0.1-1.4 [facility] Comment on above: Performed By: #### B MP, CBC, MORPH, LAC, DIFF, GFR ####[place] [address] Myelocyte 1.0 % Normal [facility] Comment on above: Performed By: #### B MP, CBC, MORPH, LAC, DIFF, GFR ####[place] [address] Neutrophil %, Manual 40.0 % Low 50.0-75.0 [facility] Comment on above: Performed By: #### B MP, CBC, MORPH, LAC, DIFF, GFR ####[place] [address] Neutrophil, Abs Manual 1.8 10 3/mcL Low 2.3-8.1 [facility] Comment on above: Performed By: #### B MP, CBC, MORPH, LAC, DIFF, GFR ####[place] [address] Nucleated RBC 0.0 /100 WBC Normal [facility] Comment on above: Performed By: #### B MP, CBC, MORPH, LAC, DIFF, GFR ####[place] [address] .Morphon 01-23-2024 Anisocytosis Ql (Bld) 1+ Normal [facility] MAIN Comment on above: Performed By: #### C MP, CBC, GFR, MG, PHOS, TROPHS, DIFF, CAION, MORPH, LAC ####[place] [id number] Dohle Bodies 2+ Normal [facility] Comment on above: Performed By: #### C MP, CBC, GFR, MG, PHOS, TROPHS, DIFF, CAION, MORPH, LAC ####[place] [address] Platelet Estimate Decreased Normal [facility] Comment on above: Performed By: #### C MP, CBC, GFR, MG, PHOS, TROPHS, DIFF, CAION, MORPH, LAC ####[place] [address] Polychrom 1+ [facility] MAIN Comment on above: Performed By: #### C MP, CBC, GFR, MG, PHOS, TROPHS, DIFF, CAION, MORPH, LAC ####[place] [address] Toxic Gran 1+ [facility] MAIN Comment on above: Performed By: #### C MP, CBC, GFR, MG, PHOS, TROPHS, DIFF, CAION, MORPH, LAC ####[place] [address] Anisocytosis Ql (Bld) 1+ Normal [facility] Comment on above: Performed By: #### B MP, CBC, MORPH, LAC, DIFF, GFR ####[place] [address] Dohle Bodies 2+ [facility] MAIN Comment on above: Performed By: #### B MP, CBC, MORPH, LAC, DIFF, GFR ####[place] [address] Platelet Estimate Decreased [facility] MAIN Comment on above: Performed By: #### B MP, CBC, MORPH, LAC, DIFF, GFR ####[place] [address] Polychrom 1+ [facility] MAIN Comment on above: Performed By: #### B MP, CBC, MORPH, LAC, DIFF, GFR ####[place] [address] Toxic Gran 1+ [facility] MAIN Comment on above: Performed By: #### B MP, CBC, MORPH, LAC, DIFF, GFR ####[place] [address] Vacuolated Neutrophils 1+ [facility] MAIN Comment on above: Performed By: #### B MP, CBC, MORPH, LAC, DIFF, GFR ####[address] 01-23-2024 aPTT Coag (Bld) [Time] 35.9 s High 25.0-35.0 [facility] MAIN Comment on above: Result Comment: For Heparin anticoagulation therapy, the recommendedtherapeutic range is: 54-77 seconds (APTT Correlationwith Anti-Xa therapeutic range of 0.3-0.7 units/ml).PLEASE REFERENCE THE PHARMACY PROTOCOL FOR DOSING. Performed By: #### P LT, FIB, HFP, PRO, APTT ####[place] [address] BGon 01-23-2024 Base excess Calc (Bld) [Moles/Vol] -6.8000 mmol/L Normal [facility] MAIN Comment on above: Performed By: #### B G ####[place] [address] CO2 [Moles/Vol] 22.2 mmol/L Normal 22.0-30.0 [facility] MAIN Comment on above: Performed By: #### B G ####[place] [address] HCO3 (Bld) [Moles/Vol] 20.7 mmol/L Low 21.0-29.0 [facility] MAIN Comment on above: Performed By: #### B G ####[place] [address] Oxygen (Bld) [Partial pressure] 76.0 mm[Hg] Normal 74.0-108.0 [facility] MAIN Comment on above: Performed By: #### B G ####[place] [address] Oxygen saturation in Blood 93.7 % Normal 92.0-96.0 [facility] MAIN Comment on above: Performed By: #### B G ####[place] [address] pCO2 49.4 mmHg High 32.0-46.0 [facility] MAIN Comment on above: Performed By: #### B G ####[place] [address] pH (Bld) 7.240 [pH] Low 7.380-7.46 0 [facility] MAIN Comment on above: Performed By: #### B G ####[place] [id number] [place] [id number] Base excess Calc (Bld) [Moles/Vol] -7.8000 mmol/L Normal [facility] MAIN Comment on above: Performed By: #### B G ####[address] [address] CO2 [Moles/Vol] 20.9 mmol/L Low 22.0-30.0 [facility] MAIN Comment on above: Performed By: #### B G ####[address] [address] HCO3 (Bld) [Moles/Vol] 19.5 mmol/L Low 21.0-29.0 [facility] MAIN Comment on above: Performed By: #### B G ####[place] [id number] Oxygen (Bld) [Partial pressure] 73.9 mm[Hg] Low 74.0-108.0 [facility] MAIN Comment on above: Performed By: #### B G ####[place] [address] Oxygen saturation in Blood 92.9 % Normal 92.0-96.0 [facility] MAIN Comment on above: Performed By: #### B G ####[place] [id number] pCO2 46.4 mmHg High 32.0-46.0 [facility] MAIN Comment on above: Performed By: #### B G ####[address] [address] pH (Bld) 7.241 [pH] Low 7.380-7.46 0 [facility] MAIN Comment on above: Performed By: #### B G ####[address] [address] Base excess Calc (Bld) [Moles/Vol] -9.3000 mmol/L [facility] MAIN Comment on above: Performed By: #### B G ####[place] [id number] CO2 [Moles/Vol] 18.0 mmol/L Low 22.0-30.0 [facility] MAIN Comment on above: Performed By: #### B G ####[place] [address] HCO3 (Bld) [Moles/Vol] 16.8 mmol/L Low 21.0-29.0 [facility] MAIN Comment on above: Performed By: #### B G ####[place] [address] Oxygen (Bld) [Partial pressure] 98.3 mm[Hg] Normal 74.0-108.0 [facility] MAIN Comment on above: Performed By: #### B G ####[place] [address] Oxygen saturation in Blood 97.5 % High 92.0-96.0 [facility] MAIN Comment on above: Performed By: #### B G ####[place] [address] pCO2 37.5 mmHg Normal 32.0-46.0 [facility] Comment on above: Performed By: #### B G ####[place] [address] pH (Bld) 7.270 [pH] Low 7.380-7.46 0 [facility] MAIN Comment on above: Performed By: #### B G ####[place] [address] BMPon 01-23-2024 BUN/Creatinine Ratio 16.6 ratio Normal 10.0-22.0 [facility] MAIN Comment on above: Performed By: #### B MP, CBC, MORPH, LAC, DIFF, GFR ####[place] [address] Calcium [Mass/Vol] 7.2 mg/dL Low 8.7-10.4 [facility] MAIN Comment on above: Performed By: #### B MP, CBC, MORPH, LAC, DIFF, GFR ####[place] [address] Chloride [Moles/Vol] 108 mmol/L Normal 98-110 [facility] MA[facility] Comment on above: Performed By: #### B MP, CBC, MORPH, LAC, DIFF, GFR ####[address] [address] CO2 [Moles/Vol] 21 mmol/L Low 22-32 [facility] MA[facility] Comment on above: Performed By: #### B MP, CBC, MORPH, LAC, DIFF, GFR ####[address] [address] Creatinine [Mass/Vol] 2.89 mg/dL High 0.60-1.40 [facility] MAIN Comment on above: Result Comment: Test ing performed on Zeppelin analyzer using enzymatic creatinine methodology. Performed By: #### B MP, CBC, MORPH, LAC, DIFF, GFR ####[address] [address] Electrolyte Balance 10.0 mEq/L Normal 4.0-15.0 [facility] MAIN Comment on above: Performed By: #### B MP, CBC, MORPH, LAC, DIFF, GFR ####[address] [address] Glucose [Mass/Vol] 198 mg/dL High 82-115 [facility] MAIN Comment on above: Performed By: #### B MP, CBC, MORPH, LAC, DIFF, GFR ####[address] [address] Potassium [Moles/Vol] 4.9 mmol/L Normal 3.5-5.0 [facility] MAIN Comment on above: Performed By: #### B MP, CBC, MORPH, LAC, DIFF, GFR ####[address] [address] Sodium [Moles/Vol] 139 mmol/L Normal 136-145 [facility] MA[facility] Comment on above: Performed By: #### B MP, CBC, MORPH, LAC, DIFF, GFR ####[address] [address] Urea nitrogen [Mass/Vol] 48.0 mg/dL High 8.0-22.0 [facility] MAIN Comment on above: Performed By: #### B MP, CBC, MORPH, LAC, DIFF, GFR ####[address] [address] CAIONon 01-23-2024 Calcium Ionized 0.80 mmol/L Critically abnormal 1.12-1.32 [facility] MAIN Comment on above: Order Comment: speci men not acceptable...tube must be at least 80% full..patient is CBN-.notified [facility] 01/23/2024 14:03:38 EDT Performed By: #### C MP, CBC, GFR, MG, PHOS, TROPHS, DIFF, CAION, MORPH, LAC ####[place] [address] CBCon 01-23-2024 Erythrocyte distribution width (RBC) [Ratio] 14.1 % Normal 11.5-15.5 [facility] MAIN Comment on above: Performed By: #### C MP, CBC, GFR, MG, PHOS, TROPHS, DIFF, CAION, MORPH, LAC ####[place] [address] Hematocrit (Bld) [Volume fraction] 36.9 % Low 40.0-52.0 [facility] MAIN Comment on above: Performed By: #### C MP, CBC, GFR, MG, PHOS, TROPHS, DIFF, CAION, MORPH, LAC ####[place] [address] Hgb 12.2 G/dL Low 13.0-17.5 [facility] MA[facility] Comment on above: Performed By: #### C MP, CBC, GFR, MG, PHOS, TROPHS, DIFF, CAION, MORPH, LAC ####[place] [address] MCH (RBC) [Entitic mass] 30.9 pg Normal 27.0-33.0 [facility] MAIN Comment on above: Performed By: #### C MP, CBC, GFR, MG, PHOS, TROPHS, DIFF, CAION, MORPH, LAC ####[place] [address] MCHC 33.1 G/dL Normal 32.0-36.0 [facility] MA[facility] Comment on above: Performed By: #### C MP, CBC, GFR, MG, PHOS, TROPHS, DIFF, CAION, MORPH, LAC ####[place] [address] MCV (RBC) [Entitic vol] 93.5 fL Normal 81.0-100.0 [facility] MAIN Comment on above: Performed By: #### C MP, CBC, GFR, MG, PHOS, TROPHS, DIFF, CAION, MORPH, LAC ####[place] [id number] Platelet 69 10 3/mcL Low 150-450 [facility] MAIN Comment on above: Performed By: #### C MP, CBC, GFR, MG, PHOS, TROPHS, DIFF, CAION, MORPH, LAC ####[place] [address] Platelet mean volume (Bld) [Entitic vol] 10.1 fL Normal 6.4-10.5 [facility] MA[facility] Comment on above: Performed By: #### C MP, CBC, GFR, MG, PHOS, TROPHS, DIFF, CAION, MORPH, LAC ####[place] [address] RBC 3.95 10 6/mcL Low 4.50-6.00 [facility] MA[facility] Comment on above: Performed By: #### C MP, CBC, GFR, MG, PHOS, TROPHS, DIFF, CAION, MORPH, LAC ####[place] [address] WBC 4.4 10 3/mcL Low 4.5-10.8 [facility] MA[facility] Comment on above: Performed By: #### C MP, CBC, GFR, MG, PHOS, TROPHS, DIFF, CAION, MORPH, LAC ####[place] [address] Erythrocyte distribution width (RBC) [Ratio] 13.9 % Normal 11.5-15.5 [facility] MA[facility] Comment on above: Performed By: #### B MP, CBC, MORPH, LAC, DIFF, GFR ####[place] [address] Hematocrit (Bld) [Volume fraction] 37.2 % Low 40.0-52.0 [facility] MA[facility] Comment on above: Performed By: #### B MP, CBC, MORPH, LAC, DIFF, GFR ####[place] [address] Hgb 12.3 G/dL Low 13.0-17.5 [facility] MAIN Comment on above: Performed By: #### B MP, CBC, MORPH, LAC, DIFF, GFR ####[place] [address] MCH (RBC) [Entitic mass] 30.4 pg Normal 27.0-33.0 [facility] MA[facility] Comment on above: Performed By: #### B MP, CBC, MORPH, LAC, DIFF, GFR ####[place] [address] MCHC 33.0 G/dL Normal 32.0-36.0 [facility] MA[facility] Comment on above: Performed By: #### B MP, CBC, MORPH, LAC, DIFF, GFR ####[place] [address] MCV (RBC) [Entitic vol] 92.0 fL Normal 81.0-100.0 [facility] MAIN Comment on above: Performed By: #### B MP, CBC, MORPH, LAC, DIFF, GFR ####[place] [address] Platelet 82 10 3/mcL Low 150-450 [facility] MAIN Comment on above: Performed By: #### B MP, CBC, MORPH, LAC, DIFF, GFR ####[place] [address] Platelet mean volume (Bld) [Entitic vol] 10.0 fL Normal 6.4-10.5 [facility] Comment on above: Performed By: #### B MP, CBC, MORPH, LAC, DIFF, GFR ####[place] [address] RBC 4.05 10 6/mcL Low 4.50-6.00 [facility] MA[facility] Comment on above: Performed By: #### B MP, CBC, MORPH, LAC, DIFF, GFR ####[place] [address] WBC 3.0 10 3/mcL Low 4.5-10.8 [facility] MA[facility] Comment on above: Performed By: #### B MP, CBC, MORPH, LAC, DIFF, GFR ####[place] [address] CMPon 01-23-2024 Albumin Level 2.6 G/dL Low 3.2-4.8 [facility] MAIN Comment on above: Performed By: #### C MP, CBC, GFR, MG, PHOS, TROPHS, DIFF, CAION, MORPH, LAC ####[place] [address] Albumin/Globulin [Mass ratio] 1.0 {ratio} Normal 0.9-1.6 [facility] MA[facility] Comment on above: Performed By: #### C MP, CBC, GFR, MG, PHOS, TROPHS, DIFF, CAION, MORPH, LAC ####[place] [address] ALP [Catalytic activity/Vol] 49 U/L Normal 38-126 [facility] MAIN Comment on above: Performed By: #### C MP, CBC, GFR, MG, PHOS, TROPHS, DIFF, CAION, MORPH, LAC ####[place] [address] ALT [Catalytic activity/Vol] 70 U/L High 12-55 [facility] MAIN Comment on above: Performed By: #### C MP, CBC, GFR, MG, PHOS, TROPHS, DIFF, CAION, MORPH, LAC ####[place] [address] AST [Catalytic activity/Vol] 130 U/L High 8-34 [facility] MA[facility] Comment on above: Performed By: #### C MP, CBC, GFR, MG, PHOS, TROPHS, DIFF, CAION, MORPH, LAC ####[place] [address] Bili Total 1.10 mg/dL Normal 0.20-1.20 [facility] MAIN Comment on above: Result Comment: Use of this assay is not recommended for patients undergoing treatment with eltrombopag due to the potential for falsely elevated results. Performed By: #### C MP, CBC, GFR, MG, PHOS, TROPHS, DIFF, CAION, MORPH, LAC ####[address] [address] BUN/Creatinine Ratio 18.0 ratio Normal 10.0-22.0 [facility] MAIN Comment on above: Performed By: #### C MP, CBC, GFR, MG, PHOS, TROPHS, DIFF, CAION, MORPH, LAC ####[address] [address] Calcium [Mass/Vol] 7.0 mg/dL Low 8.7-10.4 [facility] MAIN Comment on above: Performed By: #### C MP, CBC, GFR, MG, PHOS, TROPHS, DIFF, CAION, MORPH, LAC ####[address] [address] Chloride [Moles/Vol] 108 mmol/L Normal 98-110 [facility] MAIN Comment on above: Performed By: #### C MP, CBC, GFR, MG, PHOS, TROPHS, DIFF, CAION, MORPH, LAC ####[address] [address] CO2 [Moles/Vol] 23 mmol/L Normal 22-32 [facility] Comment on above: Performed By: #### C MP, CBC, GFR, MG, PHOS, TROPHS, DIFF, CAION, MORPH, LAC ####[address] [address] Creatinine [Mass/Vol] 2.89 mg/dL High 0.60-1.40 [facility] MAIN Comment on above: Result Comment: Test ing performed on Zeppelin analyzer using enzymatic creatinine methodology. Performed By: #### C MP, CBC, GFR, MG, PHOS, TROPHS, DIFF, CAION, MORPH, LAC ####[address] [address] Electrolyte Balance 9.0 mEq/L Normal 4.0-15.0 [facility] MAIN Comment on above: Performed By: #### C MP, CBC, GFR, MG, PHOS, TROPHS, DIFF, CAION, MORPH, LAC ####[address] [address] Globulin 2.7 G/dL Normal 1.5-3.8 [facility] Comment on above: Performed By: #### C MP, CBC, GFR, MG, PHOS, TROPHS, DIFF, CAION, MORPH, LAC ####[address] [address] Glucose [Mass/Vol] 148 mg/dL High 82-115 [facility] MA[facility] Comment on above: Performed By: #### C MP, CBC, GFR, MG, PHOS, TROPHS, DIFF, CAION, MORPH, LAC ####[address] [address] Potassium [Moles/Vol] 5.2 mmol/L High 3.5-5.0 [facility] MAIN Comment on above: Performed By: #### C MP, CBC, GFR, MG, PHOS, TROPHS, DIFF, CAION, MORPH, LAC ####[address] [address] Sodium [Moles/Vol] 140 mmol/L Normal 136-145 [facility] MA[facility] Comment on above: Performed By: #### C MP, CBC, GFR, MG, PHOS, TROPHS, DIFF, CAION, MORPH, LAC ####[address] [address] Total Protein 5.3 G/dL Low 5.7-8.2 [facility] Comment on above: Performed By: #### C MP, CBC, GFR, MG, PHOS, TROPHS, DIFF, CAION, MORPH, LAC ####[address] [address] Urea nitrogen [Mass/Vol] 52.0 mg/dL High 8.0-22.0 [facility] MA[facility] Comment on above: Performed By: #### C MP, CBC, GFR, MG, PHOS, TROPHS, DIFF, CAION, MORPH, LAC ####[address] [address] FIBon 01-23-2024 Fibrinogen >700 High 250-560 [facility] MAIN Comment on above: Performed By: #### P LT, FIB, HFP, PRO, APTT ####[place] [address] Final Surgical Pathology Rep theresa 01-23-2024 Final Surgical Pathology Report Normal [facility] Bili Indirect 0.6 mg/dL Normal 0.1-10.0 [facility] Comment on above: Performed By: #### P LT, FIB, HFP, PRO, APTT ####[place] [address] Albumin Level 2.5 G/dL Low 3.2-4.8 [facility] MAIN Comment on above: Performed By: #### P LT, FIB, HFP, PRO, APTT ####[place] [address] Albumin/Globulin [Mass ratio] 1.2 {ratio} Normal 0.9-1.6 [facility] Comment on above: Performed By: #### P LT, FIB, HFP, PRO, APTT ####[place] [address] ALP [Catalytic activity/Vol] 40 U/L Normal 38-126 [facility] MA[facility] Comment on above: Performed By: #### P LT, FIB, HFP, PRO, APTT ####[place] [address] ALT [Catalytic activity/Vol] 69 U/L High 12-55 [facility] MA[facility] Comment on above: Performed By: #### P LT, FIB, HFP, PRO, APTT ####[place] [address] AST [Catalytic activity/Vol] 125 U/L High 8-34 [facility] MA[facility] Comment on above: Performed By: #### P LT, FIB, HFP, PRO, APTT ####[place] [address] Bili Direct 0.6 mg/dL High 0.0-0.4 [facility] MAIN Comment on above: Result Comment: Use of this assay is not recommended for patients undergoing treatment with eltrombopag due to the potential for falsely elevated results. Performed By: #### P LT, FIB, HFP, PRO, APTT ####[place] [address] Bili Total 1.20 mg/dL Normal 0.20-1.20 [facility] MAIN Comment on above: Result Comment: Use of this assay is not recommended for patients undergoing treatment with eltrombopag due to the potential for falsely elevated results. Performed By: #### P LT, FIB, HFP, PRO, APTT ####[place] [address] Globulin 2.1 G/dL Normal 1.5-3.8 [facility] MA[facility] Comment on above: Performed By: #### P LT, FIB, HFP, PRO, APTT ####[place] [address] Total Protein 4.6 G/dL Low 5.7-8.2 [facility] MA[facility] Comment on above: Performed By: #### P LT, FIB, HFP, PRO, APTT ####[place] [address] LABORATORYOrdered By: SYSTEM SYSTEM on 01-23-2024 Anisocytosis Ql (Bld) 1+ *NA* (01/23/24 1:44 PM) Invalid Interpretation Code AH Workflow SS Metamyelocytes/100 WBC (Bld) 1.0 % Invalid Interpretation Code AH Workflow SS Polychromasia LM Ql (Bld) 1+ *NA* (01/23/24 1:44 PM) Invalid Interpretation Code AH Workflow SS aPTT Coag (Bld) [Time] 35.9 s High 25.0 - 35.0 seconds [facility] SS Comment on above: Interpretive Data: F or Heparin anticoagulation therapy, the recommended therapeutic range is: 54-77 seconds (APTT Correlation with Anti-Xa therapeutic range of 0.3-0.7 units/ml). PLEASE REFERENCE THE PHARMACY PROTOCOL FOR DOSING. Bili Indirect 0.6 mg/dL Normal 0.1 - 10.0 mg/dL Chemistry S Bilirubin.conjugated [Mass/Vol] 0.6 mg/dL High 0.0 - 0.4 mg/dL ADM SS Comment on above: Interpretive Data: U se of this assay is not recommended for patients undergoing treatment with eltrombopag due to the potential for falsely elevated results. Fibrinogen mg/dL High 250 - 560 mg/dL [facility] SS PT Coag (PPP) [Time] 12.0 s Normal 9.0 - 1 4.4 seconds [facility] Comment on above: Interpretive Data: E ffective 10/14/07, Protime results may be affected by some antibiotics (i.e. Ciprofloxacin, Azithromycin, Bactrim) which may potentiate the action of oral anticoagulants, with further increases in Protime/INR. PT International Ratio 1.0 ratio Invalid Interpretation Code [facility] Comment on above: Interpretive Data: Mason knowles [place] (CHEST, 1991, 102:312S-25S) recommended therapeutic range for oral anticoagulant therapy is: LOW RISK: Prophylaxis of venous thrombosis INR: 2.0-3.0 Treatment of pulmonary embolism 2.0-3.0 Prevention of systemic embolism 2.0-3.0 HIGH RISK: Mechanical prosthetic valves 2.5-3.5 Anisocytosis Ql (Bld) 1+ *NA* (01/23/24 4:49 AM) Invalid Interpretation Code Workflow SS Myelocytes/100 WBC (Bld) 1.0 % Invalid Interpretation Code Workflow SS Polychromasia LM Ql (Bld) 1+ *NA* (01/23/24 4:49 AM) Invalid Interpretation Code Workflow SS Vacuolated Neutrophils 1+ *NA* (01/23/24 4:49 AM) Invalid Interpretation Code Workflow SS LACon 01-23-2024 Lactic Acid Lvl 1.7 mmol/L Normal 0.5-2.2 [facility] Comment on above: Performed By: #### C MP, CBC, GFR, MG, PHOS, TROPHS, DIFF, CAION, MORPH, LAC ####[place] [id number] [place] [address] Lactic Acid Lvl 2.4 mmol/L High 0.5-2.2 [facility] MA[facility] Comment on above: Performed By: #### B MP, CBC, MORPH, LAC, DIFF, GFR ####[place] [address] [address] [place] [address] MGon 01-23-2024 Magnesium [Mass/Vol] 2.2 mg/dL Normal 1.6-2.4 [facility] MAIN Comment on above: Performed By: #### C MP, CBC, GFR, MG, PHOS, TROPHS, DIFF, CAION, MORPH, LAC ####[address] [address] Magnesium [Mass/Vol] 2.2 mg/dL Normal 1.6-2.4 [facility] MAIN Comment on above: Performed By: #### DILIP Soares PHOS ####[place] [address] PHOSon 01-23-2024 Phosphate [Mass/Vol] 7.1 mg/dL High 2.4-5.1 [facility] MAIN Comment on above: Result Comment: No te - New Reference Range in effect 19 Performed By: #### C MP, CBC, GFR, MG, PHOS, TROPHS, DIFF, CAION, MORPH, LAC ####[place] [address] Phosphate [Mass/Vol] 6.1 mg/dL High 2.4-5.1 [facility] MAIN Comment on above: Result Comment: No te - New Reference Range in effect 19 Performed By: #### DILIP Soares PHOS ####[place] [address] PLTon 01-23-2024 Platelet 76 10 3/mcL Low 150-450 [facility] MAIN Comment on above: Performed By: #### P LT, FIB, HFP, PRO, APTT ####[place] [address] PROon 01-23-2024 INR Coag (PPP) [Relative time] 1.0 {INR} Normal [facility] MAIN Comment on above: Result Comment: The [place] [employer] (CHEST, 1992, 102:312S-25S)recommended therapeutic range for oral anticoagulant therapy is:LOW RISK: Prophylaxis of venous thrombosis INR: 2.0-3.0 Treatment of pulmonary embolism 2.0-3.0 Prevention of systemic embolism 2.0-3.0HIGH RISK: Mechanical prosthetic valves 2.5-3.5 Performed By: #### P LT, FIB, HFP, PRO, APTT ####[place] [address] PT Coag (PPP) [Time] 12.0 s Normal 9.0-14.4 [facility] MA[facility] Comment on above: Result Comment: Effe ctive 10/14/07, Protime results may be affected by some antibiotics (i.e. Ciprofloxacin, Azithromycin, Bactrim) which may potentiate the action of oral anticoagulants, with further increases in Protime/INR. Performed By: #### P LT, FIB, HFP, PRO, APTT ####[address] 01-23-2024 High Sensitivity Troponin I 89 ng/L [address] MAIN Comment on above: Result Comment: High Sensitive Troponin I Reference Ranges:Female: 0-34 ng/LMale: 0-54 ng/LTesting performed on [employer]ex[employer] IM analyzer using direct chemiluminescent technology. Performed By: #### C MP, CBC, GFR, MG, PHOS, TROPHS, DIFF, CAION, MORPH, LAC ####[place] [address] High Sensitivity Troponin I 117 ng/L [address] MAIN Comment on above: Result Comment: High Sensitive Troponin I Reference Ranges:Female: 0-34 ng/LMale: 0-54 ng/LTesting performed on [employer] IM analyzer using direct chemiluminescent technology. Performed By: #### M G, TROPHS, PHOS ####[place] [address] XR CHEST 1 VIEWon 01-23-2024 XR CHEST 1 VIEW [facility] MAIN .GFRon 01-22-2024 GFR 26 ml/min/1.73sqm [facility] MAIN Comment on above: Result Comment: GFR Population mean for , Non- Americans Ages 20-29 = 116 mL/min/1.73 sq.m. Ages 30-39 = 107 mL/min/1.73 sq.m. Ages 40-49 = 99 mL/min/1.73 sq.m. Ages 50-59 = 93 mL/min/1.73 sq.m. Ages 60-69 = 85 mL/min/1.73 sq.m. Ages 70+ = 75 mL/min/1.73 sq.m.Chronic Kidney Disease: Less than 60 mL/min/1.73 square metersEnd Stage Renal Disease: Less than 15 mL/min/1.73 square meters Performed By: #### M G, HH, GFR, BMP ####[place] [address] GFR Non- 21 ml/min/1.73sqm [facility] MAIN Comment on above: Result Comment: GFR Population mean for , Non- Americans Ages 20-29 = 116 mL/min/1.73 sq.m. Ages 30-39 = 107 mL/min/1.73 sq.m. Ages 40-49 = 99 mL/min/1.73 sq.m. Ages 50-59 = 93 mL/min/1.73 sq.m. Ages 60-69 = 85 mL/min/1.73 sq.m. Ages 70+ = 75 mL/min/1.73 sq.m.Chronic Kidney Disease: Less than 60 mL/min/1.73 square metersEnd Stage Renal Disease: Less than 15 mL/min/1.73 square meters Performed By: #### M G, HH, GFR, BMP ####[place] [address] GFR 27 ml/min/1.73sqm [facility] MAIN Comment on above: Result Comment: GFR Population mean for , Non- Americans Ages 20-29 = 116 mL/min/1.73 sq.m. Ages 30-39 = 107 mL/min/1.73 sq.m. Ages 40-49 = 99 mL/min/1.73 sq.m. Ages 50-59 = 93 mL/min/1.73 sq.m. Ages 60-69 = 85 mL/min/1.73 sq.m. Ages 70+ = 75 mL/min/1.73 sq.m.Chronic Kidney Disease: Less than 60 mL/min/1.73 square metersEnd Stage Renal Disease: Less than 15 mL/min/1.73 square meters Performed By: #### L AC, GFR, BMP ####[address] [address] GFR Non- 22 ml/min/1.73sqm [facility] MAIN Comment on above: Result Comment: GFR Population mean for , Non- Americans Ages 20-29 = 116 mL/min/1.73 sq.m. Ages 30-39 = 107 mL/min/1.73 sq.m. Ages 40-49 = 99 mL/min/1.73 sq.m. Ages 50-59 = 93 mL/min/1.73 sq.m. Ages 60-69 = 85 mL/min/1.73 sq.m. Ages 70+ = 75 mL/min/1.73 sq.m.Chronic Kidney Disease: Less than 60 mL/min/1.73 square metersEnd Stage Renal Disease: Less than 15 mL/min/1.73 square meters Performed By: #### L AC, GFR, BMP ####[place] [address] [place] [address] GFR 27 ml/min/1.73sqm [facility] MAIN Comment on above: Result Comment: GFR Population mean for , Non- Americans Ages 20-29 = 116 mL/min/1.73 sq.m. Ages 30-39 = 107 mL/min/1.73 sq.m. Ages 40-49 = 99 mL/min/1.73 sq.m. Ages 50-59 = 93 mL/min/1.73 sq.m. Ages 60-69 = 85 mL/min/1.73 sq.m. Ages 70+ = 75 mL/min/1.73 sq.m.Chronic Kidney Disease: Less than 60 mL/min/1.73 square metersEnd Stage Renal Disease: Less than 15 mL/min/1.73 square meters Performed By: #### G FR, BMP ####[address] [address] GFR Non- 22 ml/min/1.73sqm [facility] MAIN Comment on above: Result Comment: GFR Population mean for , Non- Americans Ages 20-29 = 116 mL/min/1.73 sq.m. Ages 30-39 = 107 mL/min/1.73 sq.m. Ages 40-49 = 99 mL/min/1.73 sq.m. Ages 50-59 = 93 mL/min/1.73 sq.m. Ages 60-69 = 85 mL/min/1.73 sq.m. Ages 70+ = 75 mL/min/1.73 sq.m.Chronic Kidney Disease: Less than 60 mL/min/1.73 square metersEnd Stage Renal Disease: Less than 15 mL/min/1.73 square meters Performed By: #### G FR, BMP ####[place] [address] GFR 29 ml/min/1.73sqm [facility] MAIN Comment on above: Result Comment: GFR Population mean for , Non- Americans Ages 20-29 = 116 mL/min/1.73 sq.m. Ages 30-39 = 107 mL/min/1.73 sq.m. Ages 40-49 = 99 mL/min/1.73 sq.m. Ages 50-59 = 93 mL/min/1.73 sq.m. Ages 60-69 = 85 mL/min/1.73 sq.m. Ages 70+ = 75 mL/min/1.73 sq.m.Chronic Kidney Disease: Less than 60 mL/min/1.73 square metersEnd Stage Renal Disease: Less than 15 mL/min/1.73 square meters Performed By: #### D IFF, MORPH, GFR, CBC, PHOS, MG, BMP ####[address] [address] GFR Non- 24 ml/min/1.73sqm [facility] MAIN Comment on above: Result Comment: GFR Population mean for , Non- Americans Ages 20-29 = 116 mL/min/1.73 sq.m. Ages 30-39 = 107 mL/min/1.73 sq.m. Ages 40-49 = 99 mL/min/1.73 sq.m. Ages 50-59 = 93 mL/min/1.73 sq.m. Ages 60-69 = 85 mL/min/1.73 sq.m. Ages 70+ = 75 mL/min/1.73 sq.m.Chronic Kidney Disease: Less than 60 mL/min/1.73 square metersEnd Stage Renal Disease: Less than 15 mL/min/1.73 square meters Performed By: #### D IFF, MORPH, GFR, CBC, PHOS, MG, BMP ####[place] [address] .Manual Diffon 01-22-2024 Bands 11.0 % High 0.0-5.0 [facility] Comment on above: Performed By: #### D IFF, MORPH, GFR, CBC, PHOS, MG, BMP ####[place] [address] Basophil %, Manual 0.0 % Normal 0.0-2.5 [facility] Comment on above: Performed By: #### D IFF, MORPH, GFR, CBC, PHOS, MG, BMP ####[place] [address] Basophil, Abs Manual 0.0 10 3/mcL Normal 0.0-0.3 [facility] Comment on above: Performed By: #### D IFF, MORPH, GFR, CBC, PHOS, MG, BMP ####[place] [address] Eosinophil %, Manual 1.0 % Normal 0.0-6.0 [facility] Comment on above: Performed By: #### D IFF, MORPH, GFR, CBC, PHOS, MG, BMP ####[place] [address] Eosinophil, Abs Manual 0.0 10 3/mcL Normal 0.0-0.7 [facility] Comment on above: Performed By: #### D IFF, MORPH, GFR, CBC, PHOS, MG, BMP ####[place] [address] Lymphocyte %, Manual 12.0 % Low 20.0-40.0 [facility] Comment on above: Performed By: #### D IFF, MORPH, GFR, CBC, PHOS, MG, BMP ####[place] [address] Lymphocyte, Abs Manual 0.3 10 3/mcL Low 0.9-4.3 [facility] Comment on above: Performed By: #### D IFF, MORPH, GFR, CBC, PHOS, MG, BMP ####[address] [address] Metamyelocyte 2.0 % Normal [facility] Comment on above: Performed By: #### D IFF, MORPH, GFR, CBC, PHOS, MG, BMP ####[address] [address] Monocyte %, Manual 5.0 % Normal 2.0-13.0 [facility] Comment on above: Performed By: #### D IFF, MORPH, GFR, CBC, PHOS, MG, BMP ####[address] [address] Monocyte, Abs Manual 0.1 10 3/mcL Normal 0.1-1.4 [facility] Comment on above: Performed By: #### D IFF, MORPH, GFR, CBC, PHOS, MG, BMP ####[place] [address] Neutrophil %, Manual 69.0 % Normal 50.0-75.0 [facility] Comment on above: Performed By: #### D IFF, MORPH, GFR, CBC, PHOS, MG, BMP ####[address] [address] Neutrophil, Abs Manual 1.8 10 3/mcL Low 2.3-8.1 [facility] Comment on above: Performed By: #### D IFF, MORPH, GFR, CBC, PHOS, MG, BMP ####[address] [address] Nucleated RBC 0.0 /100 WBC Normal [facility] Comment on above: Performed By: #### D IFF, MORPH, GFR, CBC, PHOS, MG, BMP ####[address] [address] Bands 29.0 % High 0.0-5.0 [facility] Comment on above: Performed By: #### D IFF, MORPH, CMP, LAC, CBC, TROPHS, GFR ####[address] [address] Basophil %, Manual 0.0 % Normal 0.0-2.5 [facility] Comment on above: Performed By: #### D IFF, MORPH, CMP, LAC, CBC, TROPHS, GFR ####[place] [id number] Basophil, Abs Manual 0.0 10 3/mcL Normal 0.0-0.3 [facility] Comment on above: Performed By: #### D IFF, MORPH, CMP, LAC, CBC, TROPHS, GFR ####[place] [address] Eosinophil %, Manual 1.0 % Normal 0.0-6.0 [facility] Comment on above: Performed By: #### D IFF, MORPH, CMP, LAC, CBC, TROPHS, GFR ####[place] [address] Eosinophil, Abs Manual 0.0 10 3/mcL Normal 0.0-0.7 [facility] Comment on above: Performed By: #### D IFF, MORPH, CMP, LAC, CBC, TROPHS, GFR ####[place] [address] Lymphocyte %, Manual 20.0 % Normal 20.0-40.0 [facility] Comment on above: Performed By: #### D IFF, MORPH, CMP, LAC, CBC, TROPHS, GFR ####[place] [id number] Lymphocyte, Abs Manual 0.3 10 3/mcL Low 0.9-4.3 [facility] Comment on above: Performed By: #### D IFF, MORPH, CMP, LAC, CBC, TROPHS, GFR ####[place] [address] Metamyelocyte 2.0 % Normal [facility] Comment on above: Performed By: #### D IFF, MORPH, CMP, LAC, CBC, TROPHS, GFR ####[place] [address] Monocyte %, Manual 7.0 % Normal 2.0-13.0 [facility] Comment on above: Performed By: #### D IFF, MORPH, CMP, LAC, CBC, TROPHS, GFR ####[place] [address] Monocyte, Abs Manual 0.1 10 3/mcL Normal 0.1-1.4 [facility] Comment on above: Performed By: #### D IFF, MORPH, CMP, LAC, CBC, TROPHS, GFR ####[place] [address] Neutrophil %, Manual 41.0 % Low 50.0-75.0 [facility] Comment on above: Performed By: #### D IFF, MORPH, CMP, LAC, CBC, TROPHS, GFR ####[place] [id number] Neutrophil, Abs Manual 0.9 10 3/mcL Low 2.3-8.1 [facility] Comment on above: Performed By: #### D IFF, MORPH, CMP, LAC, CBC, TROPHS, GFR ####[place] [address] Nucleated RBC 0.0 /100 WBC Normal [facility] Comment on above: Performed By: #### D IFF, MORPH, CMP, LAC, CBC, TROPHS, GFR ####[place] [address] .Morphon 01-22-2024 Dohle Bodies 2+ Normal [facility] Comment on above: Performed By: #### D IFF, MORPH, GFR, CBC, PHOS, MG, BMP ####[place] [address] Platelet Estimate Normal Normal [facility] Comment on above: Performed By: #### D IFF, MORPH, GFR, CBC, PHOS, MG, BMP ####[place] [address] RBC morphology finding Nom (Bld) Normal Normal [facility] Comment on above: Performed By: #### D IFF, MORPH, GFR, CBC, PHOS, MG, BMP ####[place] [address] Vacuolated Neutrophils 1+ Normal [facility] Comment on above: Performed By: #### D IFF, MORPH, GFR, CBC, PHOS, MG, BMP ####[place] [address] Anisocytosis Ql (Bld) 1+ Normal [facility] Comment on above: Performed By: #### D IFF, MORPH, CMP, LAC, CBC, TROPHS, GFR ####[place] [address] Large Platelets Few Normal [facility] Comment on above: Performed By: #### D IFF, MORPH, CMP, LAC, CBC, TROPHS, GFR ####[place] [address] Macrocytosis 1+ Normal [facility] Comment on above: Performed By: #### D IFF, MORPH, CMP, LAC, CBC, TROPHS, GFR ####[place] [address] Platelet Clumps Few Normal [facility] Comment on above: Performed By: #### D IFF, MORPH, CMP, LAC, CBC, TROPHS, GFR ####[place] [address] Platelet Estimate Normal [facility] Comment on above: Performed By: #### D IFF, MORPH, CMP, LAC, CBC, TROPHS, GFR ####[place] [address] Polychrom 1+ Normal [facility] Comment on above: Performed By: #### D IFF, MORPH, CMP, LAC, CBC, TROPHS, GFR ####[place] [address] BGon 01-22-2024 Base excess Calc (Bld) [Moles/Vol] -6.6000 mmol/L [facility] Comment on above: Performed By: #### B G ####[place] [address] CO2 [Moles/Vol] 20.1 mmol/L Low 22.0-30.0 [facility] Comment on above: Performed By: #### B G ####[place] [address] HCO3 (Bld) [Moles/Vol] 19.0 mmol/L Low 21.0-29.0 [facility] Comment on above: Performed By: #### B G ####[address] [address] Oxygen (Bld) [Partial pressure] 75.0 mm[Hg] Normal 74.0-108.0 [facility] Comment on above: Performed By: #### B G ####[place] [address] Oxygen saturation in Blood 94.8 % Normal 92.0-96.0 [facility] Comment on above: Performed By: #### B G ####[place] [address] pCO2 38.2 mmHg Normal 32.0-46.0 [facility] Comment on above: Performed By: #### B G ####[place] [address] pH (Bld) 7.314 [pH] Low 7.380-7.46 0 [facility] Comment on above: Performed By: #### B G ####[address] [address] Base excess Calc (Bld) [Moles/Vol] -7.0000 mmol/L Normal [facility] Comment on above: Performed By: #### B G ####[place] [id number] CO2 [Moles/Vol] 19.4 mmol/L Low 22.0-30.0 [facility] Comment on above: Performed By: #### B G ####[address] [address] HCO3 (Bld) [Moles/Vol] 18.3 mmol/L Low 21.0-29.0 [facility] Comment on above: Performed By: #### B G ####[address] [address] Oxygen (Bld) [Partial pressure] 78.0 mm[Hg] Normal 74.0-108.0 [facility] Comment on above: Performed By: #### B G ####[place] [address] Oxygen saturation in Blood 95.1 % Normal 92.0-96.0 [facility] Comment on above: Performed By: #### B G ####[place] [id number] pCO2 36.4 mmHg Normal 32.0-46.0 [facility] Comment on above: Performed By: #### B G ####[place] [address] pH (Bld) 7.319 [pH] Low 7.380-7.46 0 [facility] Comment on above: Performed By: #### B G ####[place] [address] BMPon 01-22-2024 BUN/Creatinine Ratio 17.5 ratio Normal 10.0-22.0 [facility] Comment on above: Performed By: #### CHIDI Soares, GFR, BMP ####[place] [address] Calcium [Mass/Vol] 7.6 mg/dL Low 8.7-10.4 [facility] Comment on above: Performed By: #### CHIDI Soares, GFR, BMP ####[place] [address] Chloride [Moles/Vol] 106 mmol/L Normal 98-110 [facility] Comment on above: Performed By: #### M CHIDI Coy, GFR, BMP ####[place] [address] CO2 [Moles/Vol] 21 mmol/L Low 22-32 [facility] Comment on above: Performed By: #### CHIDI Soares, GFR, BMP ####[place] [id number] Creatinine [Mass/Vol] 2.92 mg/dL High 0.60-1.40 [facility] Comment on above: Result Comment: Test ing performed on Zeppelin analyzer using enzymatic creatinine methodology. Performed By: #### Asia Coy, HH, GFR, BMP ####[address] [address] Electrolyte Balance 11.0 mEq/L Normal 4.0-15.0 [facility] Comment on above: Performed By: #### CHIDI Soares, GFR, BMP ####[address] [address] Glucose [Mass/Vol] 223 mg/dL High 82-115 [facility] Comment on above: Performed By: #### CHIDI Soares, GFR, BMP ####[address] [address] Potassium [Moles/Vol] 5.2 mmol/L High 3.5-5.0 [facility] Comment on above: Performed By: #### CHIDI Soares, GFR, BMP ####[address] [address] Sodium [Moles/Vol] 138 mmol/L Normal 136-145 [facility] Comment on above: Performed By: #### CHIDI Soares, GFR, BMP ####[address] [address] Urea nitrogen [Mass/Vol] 51.0 mg/dL High 8.0-22.0 [facility] Comment on above: Performed By: #### CHIDI Soares, GFR, BMP ####[place] [address] BUN/Creatinine Ratio 17.5 ratio Normal 10.0-22.0 [facility] Comment on above: Performed By: #### L LETI, GFR, BMP ####[address] [address] Calcium [Mass/Vol] 7.3 mg/dL Low 8.7-10.4 [facility] Comment on above: Performed By: #### L LETI, GFR, BMP ####[address] [address] Chloride [Moles/Vol] 107 mmol/L Normal 98-110 [facility] Comment on above: Performed By: #### L AC, GFR, BMP ####[place] [id number] CO2 [Moles/Vol] 23 mmol/L Normal 22-32 [facility] Comment on above: Performed By: #### L AC, GFR, BMP ####[place] [address] Creatinine [Mass/Vol] 2.85 mg/dL High 0.60-1.40 [facility] Comment on above: Result Comment: Test ing performed on Zeppelin analyzer using enzymatic creatinine methodology. Performed By: #### L AC, GFR, BMP ####[place] [address] Electrolyte Balance 7.0 mEq/L Normal 4.0-15.0 [facility] Comment on above: Performed By: #### L AC, GFR, BMP ####[place] [address] Glucose [Mass/Vol] 179 mg/dL High 82-115 [facility] Comment on above: Performed By: #### L AC, GFR, BMP ####[place] [address] Potassium [Moles/Vol] 5.4 mmol/L High 3.5-5.0 [facility] Comment on above: Performed By: #### L AC, GFR, BMP ####[place] [address] Sodium [Moles/Vol] 137 mmol/L Normal 136-145 [facility] Comment on above: Performed By: #### L AC, GFR, BMP ####[place] [address] Urea nitrogen [Mass/Vol] 50.0 mg/dL High 8.0-22.0 [facility] Comment on above: Performed By: #### L AC, GFR, BMP ####[place] [address] BUN/Creatinine Ratio 17.3 ratio Normal 10.0-22.0 [facility] Comment on above: Performed By: #### G FR, BMP ####[place] [address] Calcium [Mass/Vol] 7.5 mg/dL Low 8.7-10.4 [facility] Comment on above: Performed By: #### G FR, BMP ####[address] [address] Chloride [Moles/Vol] 106 mmol/L Normal 98-110 [facility] Comment on above: Performed By: #### G FR, BMP ####[address] [address] CO2 [Moles/Vol] 23 mmol/L Normal 22-32 [facility] Comment on above: Performed By: #### G FR, BMP ####[address] [address] Creatinine [Mass/Vol] 2.84 mg/dL High 0.60-1.40 [facility] Comment on above: Result Comment: Test ing performed on Zeppelin analyzer using enzymatic creatinine methodology. Performed By: #### G FR, BMP ####[place] [address] Electrolyte Balance 8.0 mEq/L Normal 4.0-15.0 [facility] Comment on above: Performed By: #### G FR, BMP ####[address] [address] Glucose [Mass/Vol] 173 mg/dL High 82-115 [facility] Comment on above: Performed By: #### G FR, BMP ####[address] [address] Potassium [Moles/Vol] 5.0 mmol/L Normal 3.5-5.0 [facility] Comment on above: Performed By: #### G FR, BMP ####[address] [address] Sodium [Moles/Vol] 137 mmol/L Normal 136-145 [facility] Comment on above: Performed By: #### G FR, BMP ####[address] [address] Urea nitrogen [Mass/Vol] 49.0 mg/dL High 8.0-22.0 [facility] Comment on above: Performed By: #### G FR, BMP ####[address] [address] BUN/Creatinine Ratio 20.5 ratio Normal 10.0-22.0 [facility] Comment on above: Performed By: #### D IFF, MORPH, GFR, CBC, PHOS, MG, BMP ####[address] [address] Calcium [Mass/Vol] 7.4 mg/dL Low 8.7-10.4 [facility] Comment on above: Performed By: #### D IFF, MORPH, GFR, CBC, PHOS, MG, BMP ####[place] [address] Chloride [Moles/Vol] 107 mmol/L Normal 98-110 [facility] Comment on above: Performed By: #### D IFF, MORPH, GFR, CBC, PHOS, MG, BMP ####[place] [id number] CO2 [Moles/Vol] 20 mmol/L Low 22-32 [facility] Comment on above: Performed By: #### D IFF, MORPH, GFR, CBC, PHOS, MG, BMP ####[place] [address] Creatinine [Mass/Vol] 2.63 mg/dL High 0.60-1.40 [facility] Comment on above: Result Comment: Test ing performed on Zeppelin analyzer using enzymatic creatinine methodology. Performed By: #### D IFF, MORPH, GFR, CBC, PHOS, MG, BMP ####[place] [address] Electrolyte Balance 13.0 mEq/L Normal 4.0-15.0 [facility] Comment on above: Performed By: #### D IFF, MORPH, GFR, CBC, PHOS, MG, BMP ####[place] [id number] Glucose [Mass/Vol] 168 mg/dL High 82-115 [facility] Comment on above: Performed By: #### D IFF, MORPH, GFR, CBC, PHOS, MG, BMP ####[address] [address] Potassium [Moles/Vol] 4.2 mmol/L Normal 3.5-5.0 [facility] Comment on above: Performed By: #### D IFF, MORPH, GFR, CBC, PHOS, MG, BMP ####[place] [address] Sodium [Moles/Vol] 140 mmol/L Normal 136-145 [facility] Comment on above: Performed By: #### D IFF, MORPH, GFR, CBC, PHOS, MG, BMP ####[place] [address] Urea nitrogen [Mass/Vol] 54.0 mg/dL High 8.0-22.0 [facility] Comment on above: Performed By: #### D IFF, MORPH, GFR, CBC, PHOS, MG, BMP ####[place] [address] CBCon 01-22-2024 Erythrocyte distribution width (RBC) [Ratio] 13.9 % Normal 11.5-15.5 [facility] Comment on above: Performed By: #### D IFF, MORPH, GFR, CBC, PHOS, MG, BMP ####[place] [address] Hematocrit (Bld) [Volume fraction] 44.7 % Normal 40.0-52.0 [facility] Comment on above: Performed By: #### D IFF, MORPH, GFR, CBC, PHOS, MG, BMP ####[place] [address] Hgb 14.7 G/dL Normal 13.0-17.5 [facility] Comment on above: Performed By: #### D IFF, MORPH, GFR, CBC, PHOS, MG, BMP ####[place] [address] MCH (RBC) [Entitic mass] 30.4 pg Normal 27.0-33.0 [facility] Comment on above: Performed By: #### D IFF, MORPH, GFR, CBC, PHOS, MG, BMP ####[place] [address] MCHC 32.8 G/dL Normal 32.0-36.0 [facility] Comment on above: Performed By: #### D IFF, MORPH, GFR, CBC, PHOS, MG, BMP ####[place] [address] MCV (RBC) [Entitic vol] 92.7 fL Normal 81.0-100.0 [facility] Comment on above: Performed By: #### D IFF, MORPH, GFR, CBC, PHOS, MG, BMP ####[place] [address] Platelet 149 10 3/mcL Low 150-450 [facility] Comment on above: Performed By: #### D IFF, MORPH, GFR, CBC, PHOS, MG, BMP ####[place] [address] Platelet mean volume (Bld) [Entitic vol] 9.3 fL Normal 6.4-10.5 [facility] Comment on above: Performed By: #### D IFF, MORPH, GFR, CBC, PHOS, MG, BMP ####[place] [address] RBC 4.83 10 6/mcL Normal 4.50-6.00 [facility] Comment on above: Performed By: #### D IFF, MORPH, GFR, CBC, PHOS, MG, BMP ####[place] [address] WBC 2.3 10 3/mcL Low 4.5-10.8 [facility] Comment on above: Performed By: #### D IFF, MORPH, GFR, CBC, PHOS, MG, BMP ####[place] [address] CRURon 01-22-2024 U Creatinine 41.7 mg/dL Normal [facility] Comment on above: Performed By: #### C LEYLA ORTEZ ####[place] [address] HFPon 01-22-2024 Bili Indirect 0.7 mg/dL Normal 0.1-10.0 [facility] Comment on above: Performed By: #### H FP ####[place] [address] Albumin Level 2.7 G/dL Low 3.2-4.8 [facility] Comment on above: Performed By: #### H FP ####[place] [address] Albumin/Globulin [Mass ratio] 1.4 {ratio} Normal 0.9-1.6 [facility] Comment on above: Performed By: #### H FP ####[place] [address] ALP [Catalytic activity/Vol] 35 U/L Low 38-126 [facility] Comment on above: Performed By: #### H FP ####[place] [address] ALT [Catalytic activity/Vol] 68 U/L High 12-55 [facility] Comment on above: Performed By: #### H FP ####[place] [address] AST [Catalytic activity/Vol] 114 U/L High 8-34 [facility] Comment on above: Performed By: #### H FP ####[place] [address] Bili Direct 0.7 mg/dL High 0.0-0.4 [facility] Comment on above: Result Comment: Use of this assay is not recommended for patients undergoing treatment with eltrombopag due to the potential for falsely elevated results. Performed By: #### H FP ####[place] [address] Bili Total 1.40 mg/dL High 0.20-1.20 [facility] Comment on above: Result Comment: Use of this assay is not recommended for patients undergoing treatment with eltrombopag due to the potential for falsely elevated results. Performed By: #### H FP ####[place] [address] Globulin 2.0 G/dL Normal 1.5-3.8 [facility] Comment on above: Performed By: #### H FP ####[place] [address] Total Protein 4.7 G/dL Low 5.7-8.2 [facility] Comment on above: Performed By: #### H FP ####[place] [address] HHon 01-22-2024 Hematocrit (Bld) [Volume fraction] 37.6 % Low 40.0-52.0 [facility] Comment on above: Performed By: #### M G, HH, GFR, BMP ####[place] [address] Hgb 12.5 G/dL Low 13.0-17.5 [facility] Comment on above: Performed By: #### M G, HH, GFR, BMP ####[place] [address] LABORATORYOrdered By: SYSTEM SYSTEM on 01-22-2024 Bili Indirect 0.7 mg/dL Normal 0.1 - 10.0 mg/dL Chemistry S Bilirubin.conjugated [Mass/Vol] 0.7 mg/dL High 0.0 - 0.4 mg/dL ADM SS Comment on above: Interpretive Data: U se of this assay is not recommended for patients undergoing treatment with eltrombopag due to the potential for falsely elevated results. Uric Acid Lvl 6.1 mg/dL Normal 3.7 - 9.2 mg/dL ADM SS Comment on above: Interpretive Data: * *Note - New Reference Range in effect 19 Vacuolated Neutrophils 1+ *NA* (01/22/24 2:34 AM) Invalid Interpretation Code Workflow SS LABORATORYOrdered By: Frank Yadav on 01-22-2024 Creatinine (U) [Mass/Vol] 41.7 mg/dL Invalid Interpretation Code ADM SS Sodium (U) [Moles/Vol] 19 mmol/L Invalid Interpretation Code ADM SS LABORATORYOrdered By: Mario Welsh on 01-22-2024 BE Venous -7.1 mmol/L Low -3.0 - 3.0 mmol/L [facility] SS CO2 [Moles/Vol] 21.9 mmol/L Low 22.0 - 32.0 mmol/L [facility] SS HCO3 (Bld) [Moles/Vol] 20.4 mmol/L Low 21.0 - 30.0 mmol/L AH [facility] SS pCO2 Manav 48.2 mm[Hg] Normal 41.0 - 51.0 mm Hg [facility] SS pH (Bld) 7.244 [pH] Low 7.380 - 7.460 [facility] SS pO2 Manav 58.6 mm[Hg] High 35.0 - 40.0 mm Hg Main [facility] SS LACon 01-22-2024 Lactic Acid Lvl 2.6 mmol/L High 0.5-2.2 [facility] Comment on above: Performed By: #### L AC ####[address] [address] Lactic Acid Lvl 2.4 mmol/L High 0.5-2.2 [facility] Comment on above: Performed By: #### L AC ####[address] [address] Lactic Acid Lvl 2.5 mmol/L High 0.5-2.2 [facility] Comment on above: Performed By: #### L AC, GFR, BMP ####[address] [address] Lactic Acid Lvl 3.7 mmol/L High 0.5-2.2 [facility] Comment on above: Performed By: #### L AC ####[address] [address] Lactic Acid Lvl 5.0 mmol/L High 0.5-2.2 [facility] Comment on above: Performed By: #### L AC ####[address] [address] MGon 01-22-2024 Magnesium [Mass/Vol] 1.9 mg/dL Normal 1.6-2.4 [facility] Comment on above: Performed By: #### M G, HH, GFR, BMP ####[address] [address] Magnesium [Mass/Vol] 2.0 mg/dL Normal 1.6-2.4 [facility] Comment on above: Performed By: #### P HOS, MG ####[place] [address] Magnesium [Mass/Vol] 2.0 mg/dL Normal 1.6-2.4 [facility] Comment on above: Performed By: #### D IFF, MORPH, GFR, CBC, PHOS, MG, BMP ####[place] [address] NAURon 01-22-2024 Sodium [Moles/Vol] 19 mmol/L Normal [facility] Comment on above: Performed By: #### C RUR, NAUR ####[place] [address] PHOSon 01-22-2024 Phosphate [Mass/Vol] 6.1 mg/dL High 2.4-5.1 [facility] Comment on above: Result Comment: No te - New Reference Range in effect 19 Performed By: #### P HOS, MG ####[place] [address] Phosphate [Mass/Vol] 4.8 mg/dL Normal 2.4-5.1 [facility] Comment on above: Result Comment: No te - New Reference Range in effect 19 Performed By: #### D IFF, MORPH, GFR, CBC, PHOS, MG, BMP ####[place] [address] URICon 01-22-2024 Uric Acid Lvl 6.1 mg/dL Normal 3.7-9.2 [facility] Comment on above: Result Comment: No te - New Reference Range in effect 19 Performed By: #### U SHERINE ####[place] [address] US RENALon 01-22-2024 US RENAL Normal [facility] VBGon 01-22-2024 BE Venous -7.1 mmol/L Low -3.0-3.0 [facility] Comment on above: Performed By: #### V BG ####[place] [address] CO2 [Moles/Vol] 21.9 mmol/L Low 22.0-32.0 [facility] Comment on above: Performed By: #### V BG ####[place] [address] HCO3 (Bld) [Moles/Vol] 20.4 mmol/L Low 21.0-30.0 [facility] Comment on above: Performed By: #### V BG ####[place] [address] Oxygen saturation in Blood 86.7 % High 70.0-75.0 [facility] Comment on above: Performed By: #### V BG ####[place] [address] pCO2 Manav 48.2 mmHg Normal 41.0-51.0 [facility] Comment on above: Performed By: #### V BG ####[place] [address] pH Venous 7.244 Low 7.380-7.46 0 [facility] Comment on above: Performed By: #### V BG ####[place] [address] pO2 Manav 58.6 mmHg High 35.0-40.0 [facility] Comment on above: Performed By: #### V BG ####[place] [address] XR CHEST 1 VIEWon 01-22-2024 XR CHEST 1 VIEW Normal [facility] .Auto Diffon 01-21-2024 Basophil, Absolute 0.0 10 3/mcL Normal 0.0-0.3 [facility] Comment on above: Performed By: #### M G, ABSGEL, TROPHS, PHOS, ABOGEL, LAC, CMP, CBC, ANEU, GFR, ADIFF ####[place] [address] Basophils/100 WBC (Bld) 0.2 % Normal 0.0-2.5 [facility] [facility] Comment on above: Performed By: #### M G, ABSGEL, TROPHS, PHOS, ABOGEL, LAC, CMP, CBC, ANEU, GFR, ADIFF ####[address] [address] Eosinophil, Absolute 0.0 10 3/mcL Normal 0.0-0.7 [facility] Comment on above: Performed By: #### M G, ABSGEL, TROPHS, PHOS, ABOGEL, LAC, CMP, CBC, ANEU, GFR, ADIFF ####[address] [address] Eosinophils/100 WBC (Bld) 0.0 % Normal 0.0-6.0 [facility] Comment on above: Performed By: #### M G, ABSGEL, TROPHS, PHOS, ABOGEL, LAC, CMP, CBC, ANEU, GFR, ADIFF ####[address] [address] Lymphocyte, Absolute 0.3 10 3/mcL Low 0.9-4.3 [facility] Comment on above: Performed By: #### M G, ABSGEL, TROPHS, PHOS, ABOGEL, LAC, CMP, CBC, ANEU, GFR, ADIFF ####[address] [address] Lymphocytes/100 WBC (Bld) 10.1 % Low 20.0-40.0 [facility] Comment on above: Performed By: #### M G, ABSGEL, TROPHS, PHOS, ABOGEL, LAC, CMP, CBC, ANEU, GFR, ADIFF ####[address] [address] Monocyte, Absolute 0.3 10 3/mcL Normal 0.1-1.4 [facility] Comment on above: Performed By: #### M G, ABSGEL, TROPHS, PHOS, ABOGEL, LAC, CMP, CBC, ANEU, GFR, ADIFF ####[address] [address] Monocytes/100 WBC (Bld) 11.4 % Normal 2.0-13.0 [facility] Comment on above: Performed By: #### M G, ABSGEL, TROPHS, PHOS, ABOGEL, LAC, CMP, CBC, ANEU, GFR, ADIFF ####[facility] [place] [address] Neutrophils/100 WBC (Bld) 78.3 % High 50.0-75.0 [facility] Comment on above: Performed By: #### M G, ABSGEL, TROPHS, PHOS, ABOGEL, LAC, CMP, CBC, ANEU, GFR, ADIFF ####[facility] [place] [address] Basophil, Absolute 0.0 10 3/mcL Normal 0.0-0.2 [facility] Comment on above: Performed By: #### G FR, CBC, ADIFF, ANEU, BMP ####[facility] [place], [place] [address] Basophils/100 WBC (Bld) 0.3 % Normal 0.0-2.5 [facility] Comment on above: Performed By: #### G FR, CBC, ADIFF, ANEU, BMP ####[address] [place], [place] [address] Eosinophil, Absolute 0.0 10 3/mcL Normal 0.0-0.7 [facility] Comment on above: Performed By: #### G FR, CBC, ADIFF, ANEU, BMP ####[address] [place], [place] [address] Eosinophils/100 WBC (Bld) 0.4 % Normal 0.0-7.0 [facility] [place] Comment on above: Performed By: #### G FR, CBC, ADIFF, ANEU, BMP ####[address]hav[address] [place], [place] [address] Lymphocyte, Absolute 1.1 10 3/mcL Normal 0.9-4.3 [facility] Comment on above: Performed By: #### G FR, CBC, ADIFF, ANEU, BMP ####[address] [place], [place] [address] Lymphocytes/100 WBC (Bld) 24.7 % Normal 20.0-40.0 [facility] [place] Comment on above: Performed By: #### G FR, CBC, ADIFF, ANEU, BMP ####[address] [place], [place] [address] Monocyte, Absolute 0.2 10 3/mcL Normal 0.1-1.4 [facility] Comment on above: Performed By: #### G FR, CBC, ADIFF, ANEU, BMP ####[address] [place], [place] [address] Monocytes/100 WBC (Bld) 4.6 % Normal 2.0-13.0 [facility] Comment on above: Performed By: #### G FR, CBC, ADIFF, ANEU, BMP ####[address] [place], [place] [address] Neutrophils/100 WBC (Bld) 70.0 % Normal 50.0-75.0 [facility] [place] Comment on above: Performed By: #### G FR, CBC, ADIFF, ANEU, BMP ####[address] [place], [place] [address] .GFRon 01-21-2024 GFR Non- 27 ml/min/1.73sqm [facility] MAIN Comment on above: Result Comment: GFR Population mean for , Non- Americans Ages 20-29 = 116 mL/min/1.73 sq.m. Ages 30-39 = 107 mL/min/1.73 sq.m. Ages 40-49 = 99 mL/min/1.73 sq.m. Ages 50-59 = 93 mL/min/1.73 sq.m. Ages 60-69 = 85 mL/min/1.73 sq.m. Ages 70+ = 75 mL/min/1.73 sq.m.Chronic Kidney Disease: Less than 60 mL/min/1.73 square metersEnd Stage Renal Disease: Less than 15 mL/min/1.73 square meters Performed By: #### D IFF, MORPH, CMP, LAC, CBC, TROPHS, GFR ####[facility] [place] [address] GFR 33 ml/min/1.73sqm [facility]IN Comment on above: Result Comment: GFR Population mean for , Non- Americans Ages 20-29 = 116 mL/min/1.73 sq.m. Ages 30-39 = 107 mL/min/1.73 sq.m. Ages 40-49 = 99 mL/min/1.73 sq.m. Ages 50-59 = 93 mL/min/1.73 sq.m. Ages 60-69 = 85 mL/min/1.73 sq.m. Ages 70+ = 75 mL/min/1.73 sq.m.Chronic Kidney Disease: Less than 60 mL/min/1.73 square metersEnd Stage Renal Disease: Less than 15 mL/min/1.73 square meters Performed By: #### D IFF, MORPH, CMP, LAC, CBC, TROPHS, GFR ####[address] [address] GFR 31 ml/min/1.73sqm [facility] Comment on above: Result Comment: GFR Population mean for , Non- Americans Ages 20-29 = 116 mL/min/1.73 sq.m. Ages 30-39 = 107 mL/min/1.73 sq.m. Ages 40-49 = 99 mL/min/1.73 sq.m. Ages 50-59 = 93 mL/min/1.73 sq.m. Ages 60-69 = 85 mL/min/1.73 sq.m. Ages 70+ = 75 mL/min/1.73 sq.m.Chronic Kidney Disease: Less than 60 mL/min/1.73 square metersEnd Stage Renal Disease: Less than 15 mL/min/1.73 square meters Performed By: #### M G, ABSGEL, TROPHS, PHOS, ABOGEL, LAC, CMP, CBC, ANEU, GFR, ADIFF ####[address] [address] GFR Non- 25 ml/min/1.73sqm [facility] Comment on above: Result Comment: GFR Population mean for , Non- Americans Ages 20-29 = 116 mL/min/1.73 sq.m. Ages 30-39 = 107 mL/min/1.73 sq.m. Ages 40-49 = 99 mL/min/1.73 sq.m. Ages 50-59 = 93 mL/min/1.73 sq.m. Ages 60-69 = 85 mL/min/1.73 sq.m. Ages 70+ = 75 mL/min/1.73 sq.m.Chronic Kidney Disease: Less than 60 mL/min/1.73 square metersEnd Stage Renal Disease: Less than 15 mL/min/1.73 square meters Performed By: #### M G, ABSGEL, TROPHS, PHOS, ABOGEL, LAC, CMP, CBC, ANEU, GFR, ADIFF ####[address] [address] GFR Non- 34 ml/min/1.73sqm [facility] Comment on above: Result Comment: GFR Population mean for , Non- Americans Ages 20-29 = 116 mL/min/1.73 sq.m. Ages 30-39 = 107 mL/min/1.73 sq.m. Ages 40-49 = 99 mL/min/1.73 sq.m. Ages 50-59 = 93 mL/min/1.73 sq.m. Ages 60-69 = 85 mL/min/1.73 sq.m. Ages 70+ = 75 mL/min/1.73 sq.m. Chronic Kidney Disease: Less than 60 mL/min/1.73 square meters End Stage Renal Disease: Less than 15 mL/min/1.73 square meters Performed By: #### G FR, CBC, ADIFF, ANEU, BMP ####[place] [address] [place], [place] [address] GFR 41 ml/min/1.73sqm [facility] Comment on above: Result Comment: GFR Population mean for , Non- Americans Ages 20-29 = 116 mL/min/1.73 sq.m. Ages 30-39 = 107 mL/min/1.73 sq.m. Ages 40-49 = 99 mL/min/1.73 sq.m. Ages 50-59 = 93 mL/min/1.73 sq.m. Ages 60-69 = 85 mL/min/1.73 sq.m. Ages 70+ = 75 mL/min/1.73 sq.m. Chronic Kidney Disease: Less than 60 mL/min/1.73 square meters End Stage Renal Disease: Less than 15 mL/min/1.73 square meters Performed By: #### G FR, CBC, ADIFF, ANEU, BMP ####[facility] [place], [place] [address] .NEUABSon 01-21-2024 Neutrophil, Absolute 2.0 10 3/mcL Low 2.3-8.1 [facility] Comment on above: Performed By: #### M G, ABSGEL, TROPHS, PHOS, ABOGEL, LAC, CMP, CBC, ANEU, GFR, ADIFF ####[address] [address] Neutrophil, Absolute 3.1 10 3/mcL Normal 2.3-8.1 [facility] Comment on above: Performed By: #### G FR, CBC, ADIFF, ANEU, BMP ####[place] [address] [place], [place] [address] ABO/Rh (Gel)on 01-21-2024 ABO/Rh Interp Positive Invalid Interpretation Code [facility] Comment on above: Performed By: #### M G, ABSGEL, TROPHS, PHOS, ABOGEL, LAC, CMP, CBC, ANEU, GFR, ADIFF ####[address] [address] ABS (Gel)on 01-21-2024 ABSC Interp (Gel) Negative Normal [facility] Comment on above: Performed By: #### M G, ABSGEL, TROPHS, PHOS, ABOGEL, LAC, CMP, CBC, ANEU, GFR, ADIFF ####[place] [address] APTTon 01-21-2024 aPTT Coag (Bld) [Time] 29.9 s Normal 25.0-35.0 [facility] Comment on above: Result Comment: For Heparin anticoagulation therapy, the recommendedtherapeutic range is: 54-77 seconds (APTT Correlationwith Anti-Xa therapeutic range of 0.3-0.7 units/ml).PLEASE REFERENCE THE PHARMACY PROTOCOL FOR DOSING. Performed By: #### F IB, APTT, PRO ####[address] [address] BGon 01-21-2024 Base excess Calc (Bld) [Moles/Vol] -7.0000 mmol/L Normal [facility] Comment on above: Performed By: #### B G ####[place] [id number] CO2 [Moles/Vol] 20.9 mmol/L Low 22.0-30.0 [facility] Comment on above: Performed By: #### B G ####[place] [id number] HCO3 (Bld) [Moles/Vol] 19.6 mmol/L Low 21.0-29.0 [facility] Comment on above: Performed By: #### B G ####[place] [id number] Oxygen (Bld) [Partial pressure] 72.5 mm[Hg] Low 74.0-108.0 [facility] Comment on above: Performed By: #### B G ####[place] [address] Oxygen saturation in Blood 93.2 % Normal 92.0-96.0 [facility] Comment on above: Performed By: #### B G ####[place] [address] pCO2 43.2 mmHg Normal 32.0-46.0 [facility] Comment on above: Performed By: #### B G ####[place] [id number] pH (Bld) 7.274 [pH] Low 7.380-7.46 0 [facility] Comment on above: Performed By: #### B G ####[address] [address] Base excess Calc (Bld) [Moles/Vol] -4.3000 mmol/L Normal [facility] Comment on above: Performed By: #### B G ####[place] [id number] CO2 [Moles/Vol] 22.2 mmol/L Normal 22.0-30.0 [facility] Comment on above: Performed By: #### B G ####[place] [id number] HCO3 (Bld) [Moles/Vol] 21.0 mmol/L Normal 21.0-29.0 [facility] Comment on above: Performed By: #### B G ####[place] [address] Oxygen (Bld) [Partial pressure] 118.9 mm[Hg] High 74.0-108.0 [facility] Comment on above: Performed By: #### B G ####[place] [address] Oxygen saturation in Blood 98.3 % High 92.0-96.0 [facility] Comment on above: Performed By: #### B G ####[place] [address] [place] [address] pCO2 39.5 mmHg Normal 32.0-46.0 [facility] Comment on above: Performed By: #### B G ####[place] [address] pH (Bld) 7.343 [pH] Low 7.380-7.46 0 [facility] Comment on above: Performed By: #### B G ####[place] [address] BMPon 01-21-2024 BUN/Creatinine Ratio 19 ratio Normal 7-27 [facility] Comment on above: Performed By: #### G FR, CBC, ADIFF, ANEU, BMP ####[place] [address] [place], [place] [address] Calcium [Mass/Vol] 8.5 mg/dL Normal 8.4-10.2 [facility] Comment on above: Performed By: #### G FR, CBC, ADIFF, ANEU, BMP ####[facility] [place], [place] [address] Chloride [Moles/Vol] 102 mmol/L Normal 98-107 [facility] Comment on above: Performed By: #### G FR, CBC, ADIFF, ANEU, BMP ####[facility] [place], [place] [address] CO2 [Moles/Vol] 20 mmol/L Low 23-31 [facility] [place] Comment on above: Performed By: #### G FR, CBC, ADIFF, ANEU, BMP ####[address] [place], [place] [address] Creatinine [Mass/Vol] 1.95 mg/dL High 0.70-1.30 [facility] Comment on above: Result Comment: Test ing performed on Siemens Dimension EXL analyzer using a modified kinetic Panchito technique. Performed By: #### G FR, CBC, ADIFF, ANEU, BMP ####[address] [place], [place] [address] Electrolyte Balance 16.0 mEq/L High 4.0-15.0 [facility] Comment on above: Performed By: #### G FR, CBC, ADIFF, ANEU, BMP ####[address] [place], [place] [address] Glucose [Mass/Vol] 341 mg/dL High 83-110 [facility] Comment on above: Performed By: #### G FR, CBC, ADIFF, ANEU, BMP ####[address] [place], [place] [address] Potassium [Moles/Vol] 4.9 mmol/L Normal 3.5-5.1 [facility] Comment on above: Performed By: #### G FR, CBC, ADIFF, ANEU, BMP ####[address] [place], [place] [address] Sodium [Moles/Vol] 138 mmol/L Normal 136-145 [facility] Comment on above: Performed By: #### G FR, CBC, ADIFF, ANEU, BMP ####[address] [place], [place] [address] Urea nitrogen [Mass/Vol] 37 mg/dL High 7-18 [facility] Comment on above: Performed By: #### G FR, CBC, ADIFF, ANEU, BMP ####[address] [place], [place] [address] CBCon 01-21-2024 Erythrocyte distribution width (RBC) [Ratio] 14.5 % Normal 11.5-15.5 [facility] Comment on above: Performed By: #### D IFF, MORPH, CMP, LAC, CBC, TROPHS, GFR ####[place] [address] Hematocrit (Bld) [Volume fraction] 48.1 % Normal 40.0-52.0 [facility] Comment on above: Performed By: #### D IFF, MORPH, CMP, LAC, CBC, TROPHS, GFR ####[place] [address] Hgb 15.3 G/dL Normal 13.0-17.5 [facility] Comment on above: Performed By: #### D IFF, MORPH, CMP, LAC, CBC, TROPHS, GFR ####[place] [address] MCH (RBC) [Entitic mass] 31.0 pg Normal 27.0-33.0 [facility] Comment on above: Performed By: #### D IFF, MORPH, CMP, LAC, CBC, TROPHS, GFR ####[place] [address] MCHC 31.7 G/dL Low 32.0-36.0 [facility] Comment on above: Performed By: #### D IFF, MORPH, CMP, LAC, CBC, TROPHS, GFR ####[place] [address] MCV (RBC) [Entitic vol] 97.9 fL Normal 81.0-100.0 [facility] Comment on above: Performed By: #### D IFF, MORPH, CMP, LAC, CBC, TROPHS, GFR ####[place] [address] Platelet 159 10 3/mcL Normal 150-450 [facility] Comment on above: Performed By: #### D IFF, MORPH, CMP, LAC, CBC, TROPHS, GFR ####[place] [address] Platelet mean volume (Bld) [Entitic vol] 9.4 fL Normal 6.4-10.5 [facility] Comment on above: Performed By: #### D IFF, MORPH, CMP, LAC, CBC, TROPHS, GFR ####[place] [address] RBC 4.92 10 6/mcL Normal 4.50-6.00 [facility] Comment on above: Performed By: #### D IFF, MORPH, CMP, LAC, CBC, TROPHS, GFR ####[place] [address] WBC 1.3 10 3/mcL Low 4.5-10.8 [facility] Comment on above: Performed By: #### D IFF, MORPH, CMP, LAC, CBC, TROPHS, GFR ####[place] [address] Erythrocyte distribution width (RBC) [Ratio] 14.1 % Normal 11.5-15.5 [facility] Comment on above: Performed By: #### M G, ABSGEL, TROPHS, PHOS, ABOGEL, LAC, CMP, CBC, ANEU, GFR, ADIFF ####[place] [address] Hematocrit (Bld) [Volume fraction] 49.2 % Normal 40.0-52.0 [facility] Comment on above: Performed By: #### M G, ABSGEL, TROPHS, PHOS, ABOGEL, LAC, CMP, CBC, ANEU, GFR, ADIFF ####[place] [address] Hgb 16.3 G/dL Normal 13.0-17.5 [facility] Comment on above: Performed By: #### M G, ABSGEL, TROPHS, PHOS, ABOGEL, LAC, CMP, CBC, ANEU, GFR, ADIFF ####[place] [address] MCH (RBC) [Entitic mass] 31.2 pg Normal 27.0-33.0 [facility] Comment on above: Performed By: #### M G, ABSGEL, TROPHS, PHOS, ABOGEL, LAC, CMP, CBC, ANEU, GFR, ADIFF ####[place] [address] MCHC 33.2 G/dL Normal 32.0-36.0 [facility] Comment on above: Performed By: #### M G, ABSGEL, TROPHS, PHOS, ABOGEL, LAC, CMP, CBC, ANEU, GFR, ADIFF ####[place] [address] MCV (RBC) [Entitic vol] 94.0 fL Normal 81.0-100.0 [facility] Comment on above: Performed By: #### M G, ABSGEL, TROPHS, PHOS, ABOGEL, LAC, CMP, CBC, ANEU, GFR, ADIFF ####[place] [address] Platelet 198 10 3/mcL Normal 150-450 [facility] Comment on above: Performed By: #### M G, ABSGEL, TROPHS, PHOS, ABOGEL, LAC, CMP, CBC, ANEU, GFR, ADIFF ####[place] [address] Platelet mean volume (Bld) [Entitic vol] 9.1 fL Normal 6.4-10.5 [facility] Comment on above: Performed By: #### M G, ABSGEL, TROPHS, PHOS, ABOGEL, LAC, CMP, CBC, ANEU, GFR, ADIFF ####[place] [address] RBC 5.24 10 6/mcL Normal 4.50-6.00 [facility] Comment on above: Performed By: #### M G, ABSGEL, TROPHS, PHOS, ABOGEL, LAC, CMP, CBC, ANEU, GFR, ADIFF ####[place] [address] WBC 2.6 10 3/mcL Low 4.5-10.8 [facility] Comment on above: Performed By: #### M G, ABSGEL, TROPHS, PHOS, ABOGEL, LAC, CMP, CBC, ANEU, GFR, ADIFF ####[place] [address] Erythrocyte distribution width (RBC) [Ratio] 13.9 % Normal 11.5-15.5 [facility] [place] Comment on above: Performed By: #### G FR, CBC, ADIFF, ANEU, BMP ####[address] [place], [place] [address] Hematocrit (Bld) [Volume fraction] 52.0 % Normal 40.0-52.0 [facility] Comment on above: Performed By: #### G FR, CBC, ADIFF, ANEU, BMP ####[address] [place] [id number] Hgb 17.0 G/dL Normal 13.0-17.5 [facility] Comment on above: Performed By: #### G FR, CBC, ADIFF, ANEU, BMP ####[address] [place], [place] [address] MCH (RBC) [Entitic mass] 30.9 pg Normal 27.0-33.0 [facility] Comment on above: Performed By: #### G FR, CBC, ADIFF, ANEU, BMP ####[address] [place] [id number] MCHC 32.8 G/dL Normal 32.0-36.0 [facility] Comment on above: Performed By: #### G FR, CBC, ADIFF, ANEU, BMP ####[address] [place], [place] [address] MCV (RBC) [Entitic vol] 94.1 fL Normal 81.0-100.0 [facility] Comment on above: Performed By: #### G FR, CBC, ADIFF, ANEU, BMP ####[address] [place], [place] [address] Platelet 248 10 3/mcL Normal 150-450 [facility] Comment on above: Performed By: #### G FR, CBC, ADIFF, ANEU, BMP ####[address] [place], [place] [address] Platelet mean volume (Bld) [Entitic vol] 9.4 fL Normal 6.4-10.5 [facility] Comment on above: Performed By: #### G FR, CBC, ADIFF, ANEU, BMP ####[address] [place], [place] [address] RBC 5.52 10 6/mcL Normal 4.50-6.00 [facility] Comment on above: Performed By: #### G FR, CBC, ADIFF, ANEU, BMP ####[address] [place], [place] [address] WBC 4.4 10 3/mcL Low 4.5-10.8 [facility] Comment on above: Performed By: #### G FR, CBC, ADIFF, ANEU, BMP ####[address] [place], [place] [address] CMPon 01-21-2024 Albumin Level 2.5 G/dL Low 3.2-4.8 [facility] Comment on above: Performed By: #### D IFF, MORPH, CMP, LAC, CBC, TROPHS, GFR ####[address] [address] Albumin/Globulin [Mass ratio] 0.9 {ratio} Normal 0.9-1.6 [facility] Comment on above: Performed By: #### D IFF, MORPH, CMP, LAC, CBC, TROPHS, GFR ####[address] [address] ALP [Catalytic activity/Vol] 31 U/L Low 38-126 [facility] Comment on above: Performed By: #### D IFF, MORPH, CMP, LAC, CBC, TROPHS, GFR ####[address] [address] ALT [Catalytic activity/Vol] 101 U/L High 12-55 [facility] Comment on above: Performed By: #### D IFF, MORPH, CMP, LAC, CBC, TROPHS, GFR ####[address] [address] AST [Catalytic activity/Vol] 162 U/L High 8-34 [facility] Comment on above: Performed By: #### D IFF, MORPH, CMP, LAC, CBC, TROPHS, GFR ####[address] [address] Bili Total 1.70 mg/dL High 0.20-1.20 [facility] Comment on above: Result Comment: Use of this assay is not recommended for patients undergoing treatment with eltrombopag due to the potential for falsely elevated results. Performed By: #### D IFF, MORPH, CMP, LAC, CBC, TROPHS, GFR ####[place] [address] BUN/Creatinine Ratio 15.7 ratio Normal 10.0-22.0 [facility] Comment on above: Performed By: #### D IFF, MORPH, CMP, LAC, CBC, TROPHS, GFR ####[place] [id number] Calcium [Mass/Vol] 7.8 mg/dL Low 8.7-10.4 [facility] Comment on above: Performed By: #### D IFF, MORPH, CMP, LAC, CBC, TROPHS, GFR ####[place] [address] Chloride [Moles/Vol] 105 mmol/L Normal 98-110 [facility] Comment on above: Performed By: #### D IFF, MORPH, CMP, LAC, CBC, TROPHS, GFR ####[place] [id number] CO2 [Moles/Vol] 20 mmol/L Low 22-32 [facility] Comment on above: Performed By: #### D IFF, MORPH, CMP, LAC, CBC, TROPHS, GFR ####[place] [address] Creatinine [Mass/Vol] 2.36 mg/dL High 0.60-1.40 [facility] Comment on above: Result Comment: Test ing performed on Zeppelin analyzer using enzymatic creatinine methodology. Performed By: #### D IFF, MORPH, CMP, LAC, CBC, TROPHS, GFR ####[place] [address] Electrolyte Balance 12.0 mEq/L Normal 4.0-15.0 [facility] Comment on above: Performed By: #### D IFF, MORPH, CMP, LAC, CBC, TROPHS, GFR ####[address] [address] Globulin 2.8 G/dL Normal 1.5-3.8 [facility] Comment on above: Performed By: #### D IFF, MORPH, CMP, LAC, CBC, TROPHS, GFR ####[address] [address] Glucose [Mass/Vol] 161 mg/dL High 82-115 [facility] Comment on above: Performed By: #### D IFF, MORPH, CMP, LAC, CBC, TROPHS, GFR ####[address] [address] Potassium [Moles/Vol] 5.2 mmol/L High 3.5-5.0 [facility] Comment on above: Result Comment: Spec imen slightly hemolyzed. Performed By: #### D IFF, MORPH, CMP, LAC, CBC, TROPHS, GFR ####[address] [address] Sodium [Moles/Vol] 137 mmol/L Normal 136-145 [facility] Comment on above: Performed By: #### D IFF, MORPH, CMP, LAC, CBC, TROPHS, GFR ####[address] [address] Total Protein 5.3 G/dL Low 5.7-8.2 [facility] Comment on above: Result Comment: No te - New Reference Range in effect 19 Performed By: #### D IFF, MORPH, CMP, LAC, CBC, TROPHS, GFR ####[address] [address] Urea nitrogen [Mass/Vol] 37.0 mg/dL High 8.0-22.0 [facility] Comment on above: Performed By: #### D IFF, MORPH, CMP, LAC, CBC, TROPHS, GFR ####[address] [address] Albumin Level 2.8 G/dL Low 3.2-4.8 [facility] Comment on above: Performed By: #### M G, ABSGEL, TROPHS, PHOS, ABOGEL, LAC, CMP, CBC, ANEU, GFR, ADIFF ####[address] [address] Albumin/Globulin [Mass ratio] 0.9 {ratio} Normal 0.9-1.6 [facility] Comment on above: Performed By: #### M G, ABSGEL, TROPHS, PHOS, ABOGEL, LAC, CMP, CBC, ANEU, GFR, ADIFF ####[address] [address] ALP [Catalytic activity/Vol] 30 U/L Low 38-126 [facility] Comment on above: Performed By: #### M G, ABSGEL, TROPHS, PHOS, ABOGEL, LAC, CMP, CBC, ANEU, GFR, ADIFF ####[address] [address] ALT [Catalytic activity/Vol] 45 U/L Normal 12-55 [facility] Comment on above: Performed By: #### M G, ABSGEL, TROPHS, PHOS, ABOGEL, LAC, CMP, CBC, ANEU, GFR, ADIFF ####[address] [address] AST [Catalytic activity/Vol] 70 U/L High 8-34 [facility] Comment on above: Performed By: #### M G, ABSGEL, TROPHS, PHOS, ABOGEL, LAC, CMP, CBC, ANEU, GFR, ADIFF ####[place] [id number] Bili Total 1.80 mg/dL High 0.20-1.20 [facility] Comment on above: Result Comment: Use of this assay is not recommended for patients undergoing treatment with eltrombopag due to the potential for falsely elevated results. Performed By: #### M G, ABSGEL, TROPHS, PHOS, ABOGEL, LAC, CMP, CBC, ANEU, GFR, ADIFF ####[address] [address] BUN/Creatinine Ratio 17.5 ratio Normal 10.0-22.0 [facility] Comment on above: Performed By: #### M G, ABSGEL, TROPHS, PHOS, ABOGEL, LAC, CMP, CBC, ANEU, GFR, ADIFF ####[address] [address] Calcium [Mass/Vol] 8.1 mg/dL Low 8.7-10.4 [facility] Comment on above: Performed By: #### M G, ABSGEL, TROPHS, PHOS, ABOGEL, LAC, CMP, CBC, ANEU, GFR, ADIFF ####[address] [address] Chloride [Moles/Vol] 103 mmol/L Normal 98-110 [facility] Comment on above: Performed By: #### M G, ABSGEL, TROPHS, PHOS, ABOGEL, LAC, CMP, CBC, ANEU, GFR, ADIFF ####[address] [address] CO2 [Moles/Vol] 20 mmol/L Low 22-32 [facility] Comment on above: Performed By: #### M G, ABSGEL, TROPHS, PHOS, ABOGEL, LAC, CMP, CBC, ANEU, GFR, ADIFF ####[address] [address] Creatinine [Mass/Vol] 2.51 mg/dL High 0.60-1.40 [facility] Comment on above: Result Comment: Test ing performed on Zeppelin analyzer using enzymatic creatinine methodology. Performed By: #### M G, ABSGEL, TROPHS, PHOS, ABOGEL, LAC, CMP, CBC, ANEU, GFR, ADIFF ####[address] [address] Electrolyte Balance 14.0 mEq/L Normal 4.0-15.0 [facility] Comment on above: Performed By: #### M G, ABSGEL, TROPHS, PHOS, ABOGEL, LAC, CMP, CBC, ANEU, GFR, ADIFF ####[address] [address] Globulin 3.2 G/dL Normal 1.5-3.8 [facility] Comment on above: Performed By: #### M G, ABSGEL, TROPHS, PHOS, ABOGEL, LAC, CMP, CBC, ANEU, GFR, ADIFF ####[address] [address] Glucose [Mass/Vol] 299 mg/dL High 82-115 [facility] Comment on above: Performed By: #### M G, ABSGEL, TROPHS, PHOS, ABOGEL, LAC, CMP, CBC, ANEU, GFR, ADIFF ####[address] [address] Potassium [Moles/Vol] 4.6 mmol/L Normal 3.5-5.0 [facility] Comment on above: Performed By: #### M G, ABSGEL, TROPHS, PHOS, ABOGEL, LAC, CMP, CBC, ANEU, GFR, ADIFF ####[address] [address] Sodium [Moles/Vol] 137 mmol/L Normal 136-145 [facility] Comment on above: Performed By: #### M G, ABSGEL, TROPHS, PHOS, ABOGEL, LAC, CMP, CBC, ANEU, GFR, ADIFF ####[place] [id number] Total Protein 6.0 G/dL Normal 5.7-8.2 [facility] Comment on above: Result Comment: No te - New Reference Range in effect 19 Performed By: #### M G, ABSGEL, TROPHS, PHOS, ABOGEL, LAC, CMP, CBC, ANEU, GFR, ADIFF ####[address] [address] Urea nitrogen [Mass/Vol] 44.0 mg/dL High 8.0-22.0 [facility] Comment on above: Performed By: #### M G, ABSGEL, TROPHS, PHOS, ABOGEL, LAC, CMP, CBC, ANEU, GFR, ADIFF ####[address] [address] [address] ABDOMEN/PELVIS W/O CONTRA STon 01-21-2024 CT ABDOMEN/PELVIS W/O CONTRAST ORIGINAL EXAMINATION: CT OF THE ABDOMEN AND PELVIS WITHOUT FPHMLQSL24/22/2024 11:06 am TECHNIQUE: CT of the abdomen and pelvis was performed without the administration of intravenous contrast. Multiplanar reformatted images are provided for review. Automated exposure control, iterative reconstruction, and/or weight based adjustment of the mA/kV was utilized to reduce the radiation dose to as low as reasonably achievable. COMPARISON: None HISTORY: ORDERING SYSTEM PROVIDED HISTORY: Reason for Exam: post surgical FINDINGS: The liver contour is nodular. Cholelithiasis. Marked gallbladder wall thickening and submucosal edema. The pancreas, spleen, and bilateral adrenal glands are unremarkable. No hydronephrosis. No urolithiasis. The urinary bladder is decompressed with Delacruz catheter in place. Associated air in the urinary bladder lumen. Small fluid-filled hiatal hernia. Predominantly fluid-filled mildly distended stomach. Marked thickening of the proximal D1/D2 duodenal wall with defect/discontinuity of the wall. There is adjacent free air, and other areas of marked free air in the upper abdomen was also tracks inferiorly in the retroperitoneum. Hjay-gj-hsveozrs free fluid tracks in the retroperitoneal region and right pericolic gutter into the lower pelvis. Additionally, there is a locule of air adjacent to/associated with the distal/D4 duodenum, likely free air/sequela of focal perforation versus less likely duodenal diverticulum. No acute colonic abnormality. There is a 5.6 x 5.5 cm fluid collection containing locules of air within the periumbilical/infraumbil ical anterior midline soft tissues. Overlying and adjacent skin thickening infiltrative change and locules of free air which are seen more superiorly in the anterior abdominal wall subcutaneous tissues. Tiny fat containing bilateral inguinal hernias. No lymphadenopathy. Nonaneurysmal atherosclerotic aortoiliac arteries. No acute osseous abnormality.No aggressive osseous lesions.Varying degrees of multifocal degenerative change. Small right and trace left pleural effusions with overlying consolidation/compressiv e atelectasis. Multi-vessel coronary artery atherosclerotic irregularity and/or stents. IMPRESSION: Findings above consistent with perforated proximal and possibly distal duodenum. Consider perforated ulcer. Associated free air and free fluid in the peritoneal and retroperitoneal cavities. Findings above consistent subcutaneous periumbilical/infraumbil ical abscess. Cholelithiasis. Marked gallbladder wall thickening/edema may be reactive in the setting of hepatic dysfunction or more likely associated with the above described duodenal pathology. Cirrhotic morphology of the liver. Small right and trace left pleural effusion with overlying consolidation/compressiv e atelectasis. Critical results were called by Dr. Tevin Machuca to Fernanda Ham RN on 01/21/2024 at 11:36. I have personally reviewed the images of this examination and agree with the resident's findings and interpretation. Interpreted by: Harjeet Oliveira MD Preliminary Report By: Tevin Machuca Electronically signed By Harjeet Oliveira MD Dictated Date: 01/21/2024 11:14:55 AM Prelim Date: 01/21/2024 11:51:15 AM Sign Date: 01/21/2024 12:04:44 PM Ordering Provider: SALVADOR BOWMAN Normal [facility] FIBon 01-21-2024 Fibrinogen >700 High 250-560 [facility] Comment on above: Performed By: #### F IB, APTT, PRO ####[place] [id number] [place] [address] LABORATORYOrdered By: SYSTEM SYSTEM on 01-21-2024 Anisocytosis Ql (Bld) 1+ *NA* (01/21/24 10:58 PM) Invalid Interpretation Code AH Workflow SS Large Platelets Few *NA* (01/21/24 10:58 PM) Invalid Interpretation Code AH Workflow SS Macrocytes Ql (Bld) 1+ *NA* (01/21/24 10:58 PM) Invalid Interpretation Code AH Workflow SS Platelet Clumps Few *NA* (01/21/24 10:58 PM) Invalid Interpretation Code AH Workflow SS Polychromasia LM Ql (Bld) 1+ *NA* (01/21/24 10:58 PM) Invalid Interpretation Code AH Workflow SS aPTT Coag (Bld) [Time] 29.9 s Normal 25.0 - 35.0 seconds AH HemoHub SS Comment on above: Interpretive Data: F or Heparin anticoagulation therapy, the recommended therapeutic range is: 54-77 seconds (APTT Correlation with Anti-Xa therapeutic range of 0.3-0.7 units/ml). PLEASE REFERENCE THE PHARMACY PROTOCOL FOR DOSING. Fibrinogen mg/dL High 250 - 560 mg/dL AH [facility] SS Basophils (Bld) [#/Vol] 0.0 103/mcL Normal 0.0 - 0.2 10^3/mcL AO Workflow SS Basophils/100 WBC (Bld) 0.3 % Normal 0.0 - 2.5 % AO Workflow SS Eosinophil, Absolute 0.0 103/mcL Normal 0.0 - 0 .7 10^3/mcL AO Workflow SS Eosinophils/100 WBC (Bld) 0.4 % Normal 0.0 - 7.0 % AO Workflow SS Erythrocyte distribution width (RBC) [Ratio] 13.9 % Normal 11.5 - 15.5 % AO Workflow SS Hematocrit (Bld) [Volume fraction] 52.0 % Normal 40.0 - 52.0 % AO Workflow SS Hemoglobin (Bld) [Mass/Vol] 17.0 G/dL Normal 13.0 - 17.5 G/dL AO Workflow SS Lymphocytes (Bld) [#/Vol] 1.1 103/mcL Normal 0.9 - 4.3 10^3/mcL AO Workflow SS Lymphocytes/100 WBC (Bld) 24.7 % Normal 20.0 - 40.0 % AO Workflow SS MCH (RBC) [Entitic mass] 30.9 pg Normal 27.0 - 33.0 pg AO Workflow SS MCHC 32.8 G/dL Normal 32.0 - 36.0 G/dL AO Workflow SS MCV (RBC) [Entitic vol] 94.1 fL Normal 81.0 - 100.0 fL AO Workflow SS Monocytes (Bld) [#/Vol] 0.2 103/mcL Normal 0.1 - 1.4 10^3/mcL AO Workflow SS Monocytes/100 WBC (Bld) 4.6 % Normal 2.0 - 13.0 % AO Workflow SS Neutrophils (Bld) [#/Vol] 3.1 103/mcL Normal 2.3 - 8.1 10^3/mcL AO Workflow SS Neutrophils/100 WBC (Bld) 70.0 % Normal 50.0 - 75.0 % AO Workflow SS Platelet mean volume (Bld) [Entitic vol] 9.4 fL Normal 6.4 - 10.5 fL AO Workflow SS Platelets (Bld) [#/Vol] 248 103/mcL Normal 150 - 450 10^3/mcL AO Workflow SS RBC (Bld) [#/Vol] 5.52 106/mcL Normal 4.50 - 6.00 10^6/mcL AO Workflow SS WBC (Bld) [#/Vol] 4.4 103/mcL Low 4.5 - 10.8 10^3/mcL AO Workflow SS Calcium [Mass/Vol] 8.5 mg/dL Normal 8.4 - 10. 2 mg/dL AO ADM SS Chloride [Moles/Vol] 102 mmol/L Normal 98 - 10 7 mmol/L AO ADM SS CO2 [Moles/Vol] 20 mmol/L Low 23 - 31 mmol/L AO ADM SS Creatinine [Mass/Vol] 1.95 mg/dL High 0.70 - 1.30 mg/dL AO ADM SS Comment on above: Interpretive Data: T esting performed on Siemens Dimension EXL analyzer using a modified kinetic Panchito technique. Electrolyte Balance 16.0 mEq/L High 4.0 - 15 .0 mEq/L AO ADM SS GFR/1.73 sq M.predicted among blacks MDRD (S/P/Bld) [Vol rate/Area] 41 ml/min/1.73sqm Invalid Interpretation Code AO Chemistry S Comment on above: Interpretive Data: GFR Population mean for , Non- Americans Ages 20-29 = 116 mL/min/1.73 sq.m. Ages 30-39 = 107 mL/min/1.73 sq.m. Ages 40-49 = 99 mL/min/1.73 sq.m. Ages 50-59 = 93 mL/min/1.73 sq.m. Ages 60-69 = 85 mL/min/1.73 sq.m. Ages 70+ = 75 mL/min/1.73 sq.m. Chronic Kidney Disease: Less than 60 mL/min/1.73 square meters End Stage Renal Disease: Less than 15 mL/min/1.73 square meters GFR/1.73 sq M.predicted among non-blacks MDRD (S/P/Bld) [Vol rate/Area] 34 ml/min/1.73sqm Invalid Interpretation Code AO Chemistry S Comment on above: Interpretive Data: GFR Population mean for , Non- Americans Ages 20-29 = 116 mL/min/1.73 sq.m. Ages 30-39 = 107 mL/min/1.73 sq.m. Ages 40-49 = 99 mL/min/1.73 sq.m. Ages 50-59 = 93 mL/min/1.73 sq.m. Ages 60-69 = 85 mL/min/1.73 sq.m. Ages 70+ = 75 mL/min/1.73 sq.m. Chronic Kidney Disease: Less than 60 mL/min/1.73 square meters End Stage Renal Disease: Less than 15 mL/min/1.73 square meters Glucose [Mass/Vol] 341 mg/dL High 83 - 110 mg/dL AO ADM SS Potassium [Moles/Vol] 4.9 mmol/L Normal 3.5 - 5.1 mmol/L AO ADM SS Sodium [Moles/Vol] 138 mmol/L Normal 136 - 145 mmol/L AO ADM SS Urea nitrogen [Mass/Vol] 37 mg/dL High 7 - 18 mg/dL AO ADM SS Urea nitrogen/Creatinine [Mass ratio] 19 ratio Normal 7 - 27 ratio AO ADM SS LABORATORYOrdered By: Ashly Stephens on 01-21-2024 Appearance (U) Cloudy *ABN* (01/21/24 4:37 PM) Invalid Interpretation Code Clear AH Auto Urine SS Bacteria LM.HPF (Urine sed) [#/Area] Trace /HPF Invalid Interpretation Code Negative AH Auto Urine SS Bilirubin Ql (U) Negative (01/21/24 4:37 PM) Normal Neg-Trace AH Auto Urine SS Color (U) Yellow (01/21/24 4:37 PM) Normal AH Auto Urine SS Crystals.amorphous LM.HPF (Urine sed) [#/Area] 4 /[HPF] Normal AH Auto Urine SS Glucose Test strip (U) [Mass/Vol] >=1000 mg/dL Invalid Interpretation Code Negative AH Auto Urine SS Hemoglobin Auto test strip (U) [Mass/Vol] Large *ABN* (01/21/24 4:37 PM) Invalid Interpretation Code Neg-Trace AH Auto Urine SS Ketones Ql (U) Negative Normal Neg-Trace AH Auto Ur ine SS UA Coarse Granular Casts Rare /LPF Invalid Interpretation Code AH Auto Urine SS UA Leuk Est Negative (01/21/24 4:37 PM) Normal Negative AH Auto Urine SS UA Mucous Trace /HPF Normal AH Auto Urine SS UA Nitrite Negative (01/21/24 4:37 PM) Normal Negative AH Auto Urine SS UA pH 5.0 (01/21/24 4:37 PM) Normal 5.0 - 8.0 AH Auto Urine SS UA Protein 100 mg/dL Invalid Interpretation Code Negative AH Auto Urine SS UA RBC 50-100 /HPF Invalid Interpretation Code 0-2 AH Auto Urine SS UA Spec Grav 1.020 (01/21/24 4:37 PM) Normal 1.006-1.02 9 AH Auto Urine SS UA Specimen Type Delacruz Catheter (01/21/24 4:37 PM) Normal AH Auto Urine SS UA Squam Epithelial 0-2 /HPF Normal 0-20 AH Au to Urine SS UA Urobilinogen 0.2 E.U./dL Normal 0.2-1.0 AH Auto Urine SS WBC LM.HPF (Urine sed) [#/Area] 5-10 /HPF Invalid Interpretation Code 0-5 AH Auto Urine SS LABORATORYOrdered By: Mario Osborn on 01-21-2024 ABO and Rh group Nom (Bld) Blood group A Rh(D) positive Invalid Interpretation Code AH BB Auto SS Blood group antibody screen Ql Negative ABSC (01/21/24 2:32 PM) Normal AH BB Auto SS LABORATORYOrdered By: Frank Sanderson on 01-21-2024 Blood Glucose Testing Reason Routine (01/21/24 11:24 AM) [facility] Glucose [Mass/Vol] 251 mg/dL High 82 - 115 mg/dL [facility] LABORATORYOrdered By: Flip Vegas on 01-21-2024 Blood Glucose Testing Reason Routine (01/21/24 7:38 AM) [facility] Glucose [Mass/Vol] 274 mg/dL High 82 - 115 mg/dL [facility] LACon 01-21-2024 Lactic Acid Lvl 5.5 mmol/L High 0.5-2.2 [facility] Comment on above: Performed By: #### D IFF, MORPH, CMP, LAC, CBC, TROPHS, GFR ####[address] [address] Lactic Acid Lvl 4.2 mmol/L High 0.5-2.2 [facility] Comment on above: Order Comment: Order ed secondary to Lactic Acid result greater than or equal to 2.0 Performed By: #### L AC ####[address] [address] Lactic Acid Lvl 5.0 mmol/L High 0.5-2.2 [facility] Comment on above: Performed By: #### M G, ABSGEL, TROPHS, PHOS, ABOGEL, LAC, CMP, CBC, ANEU, GFR, ADIFF ####[place] [address] MGon 01-21-2024 Magnesium [Mass/Vol] 1.5 mg/dL Low 1.6-2.4 [facility] Comment on above: Performed By: #### M G, ABSGEL, TROPHS, PHOS, ABOGEL, LAC, CMP, CBC, ANEU, GFR, ADIFF ####[place] [address] PHOSon 01-21-2024 Phosphate [Mass/Vol] 3.6 mg/dL Normal 2.4-5.1 [facility] Comment on above: Result Comment: No te - New Reference Range in effect 19 Performed By: #### M G, ABSGEL, TROPHS, PHOS, ABOGEL, LAC, CMP, CBC, ANEU, GFR, ADIFF ####[place] [address] PROon 01-21-2024 INR Coag (PPP) [Relative time] 1.1 {INR} Normal [facility] Comment on above: Result Comment: The [place] (CHEST, 1992, [id number])recommended therapeutic range for oral anticoagulant therapy is:LOW RISK: Prophylaxis of venous thrombosis INR: 2.0-3.0 Treatment of pulmonary embolism 2.0-3.0 Prevention of systemic embolism 2.0-3.0HIGH RISK: Mechanical prosthetic valves 2.5-3.5 Performed By: #### F IB, APTT, PRO ####[place] [address] PT Coag (PPP) [Time] 12.7 s Normal 9.0-14.4 [facility] Comment on above: Result Comment: Effe ctive 10/14/07, Protime results may be affected by some antibiotics (i.e. Ciprofloxacin, Azithromycin, Bactrim) which may potentiate the action of oral anticoagulants, with further increases in Protime/INR. Performed By: #### F IB, APTT, PRO ####[place] [address] TROPHSon 01-21-2024 High Sensitivity Troponin I 25 ng/L Normal 0-54 [facility] Comment on above: Result Comment: High Sensitive Troponin I Reference Ranges:Female: 0-34 ng/LMale: 0-54 ng/LTesting performed on AtellAppNexus IM analyzer using direct chemiluminescent technology. Performed By: #### D IFF, MORPH, CMP, LAC, CBC, TROPHS, GFR ####[place] [address] High Sensitivity Troponin I 13 ng/L Normal 0-54 [facility] Comment on above: Result Comment: High Sensitive Troponin I Reference Ranges:Female: 0-34 ng/LMale: 0-54 ng/LTesting performed on Atellica IM analyzer using direct chemiluminescent technology. Performed By: #### M G, ABSGEL, TROPHS, PHOS, ABOGEL, LAC, CMP, CBC, ANEU, GFR, ADIFF ####[place] [address] UAon 01-21-2024 Color (U) Yellow Normal [facility] Comment on above: Performed By: #### U A, UAMIC ####[place] [address] Glucose (U) [Mass/Vol] mg/dL Abnormal Negative [facility] Comment on above: Performed By: #### U A, UAMIC ####[place] [address] Ketones Ql (U) Negative Normal NegTrace [facility] Comment on above: Performed By: #### U A, UAMIC ####[place] [address] UA Appear Cloudy Abnormal Clear [facility] Comment on above: Performed By: #### U A, UAMIC ####[place] [address] UA Blood Large Abnormal Neg-Trace [facility] Comment on above: Performed By: #### U A, UAMIC ####[place] [address] UA Leuk Est Negative Normal Negative [facility] Comment on above: Performed By: #### U A, UAMIC ####[place] [address] UA Nitrite Negative Normal Negative [facility] Comment on above: Performed By: #### U A, UAMIC ####[place] [address] UA pH 5.0 Normal 5.0 - 8.0 [facility] Comment on above: Performed By: #### U A, UAMIC ####[place] [address] UA Protein 100 mg/dL Abnormal Negative [facility] Comment on above: Performed By: #### U A, UAMIC ####[place] [address] UA Spec Grav 1.020 Normal 1.006-1.02 9 [facility] Comment on above: Performed By: #### U A, UAMIC ####[place] [address] UA Specimen Type Delacruz Catheter Normal [facility] Comment on above: Performed By: #### U A, UAMIC ####[place] [address] UA Urobilinogen 0.2 E.U./dL Normal 0.2-1.0 [facility] Comment on above: Performed By: #### U A, UAMIC ####[place] [address] Urobilinogen (U) [Mass/Vol] Negative Normal Neg-Trace [facility] Comment on above: Performed By: #### U A, UAMIC ####[place] [address] UAMICon 01-21-2024 UA Amorphus 4+ /hpf Normal [facility] Comment on above: Performed By: #### U A, UAMIC ####[place] [address] UA Bacteria Trace Abnormal Negative [facility] Comment on above: Performed By: #### U A, UAMIC ####[facility] [place] [address] UA Coarse Granular Casts Rare Abnormal [facility] Comment on above: Performed By: #### U A, UAMIC ####[facility] [place] [address] UA Mucous Trace Normal [facility] Comment on above: Performed By: #### U A, UAMIC ####[facility] [place] [address] UA RBC 50-100 Abnormal 0-2 [facility] Comment on above: Performed By: #### U A, UAMIC ####[facility] [place] [address] UA Squam Epithelial 0-2 Normal 0-20 [facility] Comment on above: Performed By: #### U A, UAMIC ####[place] [id number] [place] [address] UA WBC 5-10 Abnormal 0-5 [facility] Comment on above: Performed By: #### U A, UAMIC ####[place] [address] XR ABDOMEN APon 01-21-2024 XR ABDOMEN AP ORIGINAL EXAMINATION: ONE SUPINE XRAY VIEW(S) OF THE ABDOMEN 01/21/2024 11:53 am COMPARISON: The chest x-ray 01/21/2024 HISTORY: ORDERING SYSTEM PROVIDED HISTORY: Reason for Exam: NG PLACEMENT FINDINGS: Examination is tailored for enteric tube placement and is limited otherwise. An enteric tube is seen coursing below the diaphragm with tip projecting over the gastric bubble. The side port projects just above the GE junction. Advancement by the approximately 6 cm is recommended. IMPRESSION: Enteric tube side-port projects just above the GE junction and advancement by approximately 6 cm is recommended. Interpreted by: Jacob Quinteros MD Preliminary Report By: Jacob Quinteros MD Electronically signed By Jacob Quinteros MD Dictated Date: 01/21/2024 11:57:39 AM Prelim Date: 01/21/2024 11:59:12 AM Sign Date: 01/21/2024 11:59:12 AM Ordering Provider: SALVADOR BOWMAN [facility] XR CHEST 1 VIEWon 01-21-2024 XR CHEST [address] [facility] XR CHEST [address] [facility] XR CHEST 1 VIEW ORIGINAL EXAMINATION: ONE XRAY VIEW OF THE CHEST TECHNIQUE: One view AP upright COMPARISON: Chest 01/20/2024 HISTORY: ORDERING SYSTEM PROVIDED HISTORY: Reason for Exam: hypoxia FINDINGS: Support devices: None Cardiomediastinal: The heart is stable in size and configuration. Lungs: Slightly diminished lung volumes with hypoventilatory changes. Mild bibasilar subsegmental atelectasis. No pulmonary edema, consolidation or a large pleural effusion. Small pleural effusions may be present. Pneumothorax: None Osseous: No acute osseous pathology. IMPRESSION: 1. Mild bibasilar subsegmental atelectasis. 2. Possible small pleural effusions. Interpreted by: Efrain Chairez MD Preliminary Report By: Efrain Chairez MD Electronically signed By Efrain Chairez MD Dictated Date: 01/21/2024 8:07:07 AM Prelim Date: 01/21/2024 8:08:55 AM Sign Date: 01/21/2024 8:08:55 AM Ordering Provider: SALVADOR BOWMAN Normal [facility] XR ENTERIC TUBE PLACEMENTon 01-21-2024 XR ENTERIC TUBE PLACEMENT [facility] LABORATORYOrdered By: Gaurang Hunt on 01-20-2024 Blood Glucose Testing Reason Routine (01/20/24 8:37 PM) [facility] Glucose [Mass/Vol] 165 mg/dL High 82 - 115 mg/dL [facility] XR CHEST 1 VIEWon 01-20-2024 XR CHEST 1 VIEW ORIGINAL EXAMINATION: ONE XRAY VIEW OF THE CHEST 01/20/2024 3:31 pm COMPARISON: 07/06/2020 HISTORY: ORDERING SYSTEM PROVIDED HISTORY: Reason for Exam: decreasing 02 SATs FINDINGS: There is diminished respiratory effort. The lungs are without acute focal process. There is no effusion or pneumothorax. The cardiomediastinal silhouette is without acute process. The osseous structures are without acute process. IMPRESSION: No acute process. Interpreted by: Chepe Gutierrez DO Preliminary Report By: Chepe Gutierrez DO Electronically signed By Chepe Gutierrez DO Dictated Date: 01/20/2024 4:14:42 PM Prelim Date: 01/20/2024 4:15:46 PM Sign Date: 01/20/2024 4:15:46 PM Ordering Provider: SALVADOR Duff [facility] .Auto Diffon 01-17-2024 Basophil, Absolute 0.0 10 3/mcL Normal 0.0-0.2 [facility] Comment on above: Performed By: #### A DIFF, CBC, ANEU #### [address] [address] Basophils/100 WBC (Bld) 0.5 % Normal 0.0-2.5 [facility] Comment on above: Performed By: #### A DIFF, CBC, ANEU #### [address] [address] Eosinophil, Absolute 0.2 10 3/mcL Normal 0.0-0.7 [facility] Comment on above: Performed By: #### A DIFF, CBC, ANEU #### [address] [address] Eosinophils/100 WBC (Bld) 3.6 % Normal 0.0-7.0 [facility] Comment on above: Performed By: #### A DIFF, CBC, ANEU #### [address] [address] Lymphocyte, Absolute 1.3 10 3/mcL Normal 0.9-4.3 [facility] Comment on above: Performed By: #### A DIFF, CBC, ANEU #### [address] [address] Lymphocytes/100 WBC (Bld) 23.1 % Normal 20.0-40.0 [facility] Comment on above: Performed By: #### A DIFF, CBC, ANEU #### [address] [address] Monocyte, Absolute 0.6 10 3/mcL Normal 0.1-1.4 [facility] Comment on above: Performed By: #### A DIFF, CBC, ANEU #### [address] [address] Monocytes/100 WBC (Bld) 11.5 % Normal 2.0-13.0 [facility] Comment on above: Performed By: #### A DIFF, CBC, ANEU #### [address] [address] Neutrophils/100 WBC (Bld) 61.3 % Normal 50.0-75.0 [facility] Comment on above: Performed By: #### A DIFF, CBC, ANEU #### [address] [address] .NEUABSon 01-17-2024 Neutrophil, Absolute 3.3 10 3/mcL Normal 2.3-8.1 [facility] Comment on above: Performed By: #### A DIFF, CBC, ANEU #### [address] [address] CBCon 01-17-2024 Erythrocyte distribution width (RBC) [Ratio] 13.5 % Normal 11.5-15.5 [facility] Comment on above: Order Comment: Pre-A dmission Testing Performed By: #### A DIFF, CBC, ANEU #### [address] [address] Hematocrit (Bld) [Volume fraction] 44.0 % Normal 40.0-52.0 [facility] Comment on above: Order Comment: Pre-A dmission Testing Performed By: #### A DIFF, CBC, ANEU #### [address] [address] Hgb 14.6 G/dL Normal 13.0-17.5 [facility] Comment on above: Order Comment: Pre-A dmission Testing Performed By: #### A DIFF, CBC, ANEU #### [address] [address] MCH (RBC) [Entitic mass] 30.6 pg Normal 27.0-33.0 [facility] Comment on above: Order Comment: Pre-A dmission Testing Performed By: #### A DIFF, CBC, ANEU #### [address] [address] MCHC 33.2 G/dL Normal 32.0-36.0 [facility] Comment on above: Order Comment: Pre-A dmission Testing Performed By: #### A DIFF, CBC, ANEU #### [address] [address] MCV (RBC) [Entitic vol] 92.2 fL Normal 81.0-100.0 [facility] Comment on above: Order Comment: Pre-A dmission Testing Performed By: #### A DIFF, CBC, ANEU #### [place] [address] Platelet 198 10 3/mcL Normal 150-450 [facility] Comment on above: Order Comment: Pre-A dmission Testing Performed By: #### A DIFF, CBC, ANEU #### [place] [address] Platelet mean volume (Bld) [Entitic vol] 8.4 fL Normal 6.4-10.5 [facility] Comment on above: Order Comment: Pre-A dmission Testing Performed By: #### A DIFF, CBC, ANEU #### [place] [address] RBC 4.77 10 6/mcL Normal 4.50-6.00 [facility] Comment on above: Order Comment: Pre-A dmission Testing Performed By: #### A DIFF, CBC, ANEU #### [place] [address] WBC 5.4 10 3/mcL Normal 4.5-10.8 [facility] Comment on above: Order Comment: Pre-A dmission Testing Performed By: #### A DIFF, CBC, ANEU #### [place] [address] LABORATORYOrdered By: SYSTEM SYSTEM on 01-17-2024 Basophils (Bld) [#/Vol] 0.0 103/mcL Normal 0.0 - 0.2 10^3/mcL AO Workflow SS Basophils/100 WBC (Bld) 0.5 % Normal 0.0 - 2.5 % AO Workflow SS Eosinophil, Absolute 0.2 103/mcL Normal 0.0 - 0 .7 10^3/mcL AO Workflow SS Eosinophils/100 WBC (Bld) 3.6 % Normal 0.0 - 7.0 % AO Workflow SS Erythrocyte distribution width (RBC) [Ratio] 13.5 % Normal 11.5 - 15.5 % AO Workflow SS Hematocrit (Bld) [Volume fraction] 44.0 % Normal 40.0 - 52.0 % AO Workflow SS Hemoglobin (Bld) [Mass/Vol] 14.6 G/dL Normal 13.0 - 17.5 G/dL AO Workflow SS Lymphocytes (Bld) [#/Vol] 1.3 103/mcL Normal 0.9 - 4.3 10^3/mcL AO Workflow SS Lymphocytes/100 WBC (Bld) 23.1 % Normal 20.0 - 40.0 % AO Workflow SS MCH (RBC) [Entitic mass] 30.6 pg Normal 27.0 - 33.0 pg AO Workflow SS MCHC 33.2 G/dL Normal 32.0 - 36.0 G/dL AO Workflow SS MCV (RBC) [Entitic vol] 92.2 fL Normal 81.0 - 100.0 fL AO Workflow SS Monocytes (Bld) [#/Vol] 0.6 103/mcL Normal 0.1 - 1.4 10^3/mcL AO Workflow SS Monocytes/100 WBC (Bld) 11.5 % Normal 2.0 - 13.0 % AO Workflow SS Neutrophils (Bld) [#/Vol] 3.3 103/mcL Normal 2.3 - 8.1 10^3/mcL AO Workflow SS Neutrophils/100 WBC (Bld) 61.3 % Normal 50.0 - 75.0 % AO Workflow SS Platelet mean volume (Bld) [Entitic vol] 8.4 fL Normal 6.4 - 10.5 fL AO Workflow SS Platelets (Bld) [#/Vol] 198 103/mcL Normal 150 - 450 10^3/mcL AO Workflow SS RBC (Bld) [#/Vol] 4.77 106/mcL Normal 4.50 - 6.00 10^6/mcL AO Workflow SS WBC (Bld) [#/Vol] 5.4 103/mcL Normal 4.5 - 10.8 10^3/mcL AO Workflow SS .GFRon 12-27-2023 GFR 88 ml/min/1.73sqm Normal [facility] Comment on above: Result Comment: GFR Population mean for , Non- Americans Ages 20-29 = 116 mL/min/1.73 sq.m. Ages 30-39 = 107 mL/min/1.73 sq.m. Ages 40-49 = 99 mL/min/1.73 sq.m. Ages 50-59 = 93 mL/min/1.73 sq.m. Ages 60-69 = 85 mL/min/1.73 sq.m. Ages 70+ = 75 mL/min/1.73 sq.m. Chronic Kidney Disease: Less than 60 mL/min/1.73 square meters End Stage Renal Disease: Less than 15 mL/min/1.73 square meters Performed By: #### C MP, FT4, VIDH, LIPID, A1C, GFR, TSH ####[place] [address] [place], [place] [address] GFR Non- 73 ml/min/1.73sqm Normal [facility] Comment on above: Result Comment: GFR Population mean for , Non- Americans Ages 20-29 = 116 mL/min/1.73 sq.m. Ages 30-39 = 107 mL/min/1.73 sq.m. Ages 40-49 = 99 mL/min/1.73 sq.m. Ages 50-59 = 93 mL/min/1.73 sq.m. Ages 60-69 = 85 mL/min/1.73 sq.m. Ages 70+ = 75 mL/min/1.73 sq.m. Chronic Kidney Disease: Less than 60 mL/min/1.73 square meters End Stage Renal Disease: Less than 15 mL/min/1.73 square meters Performed By: #### C MP, FT4, VIDH, LIPID, A1C, GFR, TSH ####[facility] [place], [place] [address] A1Con 12-27-2023 Glucose [Mass/Vol] 157 mg/dL Normal [facility] Comment on above: Result Comment: Madeline mated Average Glucose calculated by equation ((28.7xA1C)-46.7) Estimated average glucose (eAG) is a calculated value from Hemoglobin A1C and is enrollment representative of the average blood glucose level in the last 2-3 month period. Normal range: less than 114 mg/dL Performed By: #### C MP, FT4, VIDH, LIPID, A1C, GFR, TSH #### [address] [address] HbA1c (Bld) [Mass fraction] 7.1 % High 4.3-6.4 [facility] Comment on above: Performed By: #### C MP, FT4, VIDH, LIPID, A1C, GFR, TSH #### [place] [address] [place], [place] [address] CMPon 12-27-2023 Albumin Level 3.6 G/dL Normal 3.4-4.8 [facility] Comment on above: Performed By: #### C MP, FT4, VIDH, LIPID, A1C, GFR, TSH ####[place] [address] [place], [place] [address] Albumin/Globulin [Mass ratio] 1.1 {ratio} Normal 1.1-2.5 [facility] Comment on above: Performed By: #### C MP, FT4, VIDH, LIPID, A1C, GFR, TSH ####[place] [address] [place], [place] [address] ALP [Catalytic activity/Vol] 54 U/L Normal 40-135 [facility] Comment on above: Performed By: #### C MP, FT4, VIDH, LIPID, A1C, GFR, TSH ####[address] [address] ALT [Catalytic activity/Vol] 44 U/L Normal 16-63 [facility] Comment on above: Performed By: #### C MP, FT4, VIDH, LIPID, A1C, GFR, TSH ####[place] [address] [place], [place] [address] AST [Catalytic activity/Vol] 20 U/L Normal 10-40 [facility] Comment on above: Performed By: #### C MP, FT4, VIDH, LIPID, A1C, GFR, TSH ####[place] [address] [place], [place] [address] Bili Total 0.7 mg/dL Normal 0.2-1.0 [facility] Comment on above: Result Comment: Use of this assay is not recommended for patients undergoing treatment with eltrombopag due to the potential for falsely elevated results. Performed By: #### C MP, FT4, VIDH, LIPID, A1C, GFR, TSH ####[place] [id number] [place], [place] [address] BUN/Creatinine Ratio 18 ratio Normal 7-27 [facility] Comment on above: Performed By: #### C MP, FT4, VIDH, LIPID, A1C, GFR, TSH ####[place] [address] [place], [place] [address] Calcium [Mass/Vol] 8.8 mg/dL Normal 8.4-10.2 [facility] Comment on above: Performed By: #### C MP, FT4, VIDH, LIPID, A1C, GFR, TSH ####[address] [address] Chloride [Moles/Vol] 102 mmol/L Normal 98-107 [facility] Comment on above: Performed By: #### C MP, FT4, VIDH, LIPID, A1C, GFR, TSH ####[place] [address] [place], [place] [address] CO2 [Moles/Vol] 29 mmol/L Normal 23-31 [facility] Comment on above: Performed By: #### C MP, FT4, VIDH, LIPID, A1C, GFR, TSH ####[place] [address] [place], [place] [address] Creatinine [Mass/Vol] 1.01 mg/dL Normal 0.70-1.30 [facility] Comment on above: Result Comment: Test ing performed on Siemens Dimension EXL analyzer using a modified kinetic Panchito technique. Performed By: #### C MP, FT4, VIDH, LIPID, A1C, GFR, TSH ####[place] [address] [place], [place] [address] Electrolyte Balance 7.0 mEq/L Normal 4.0-15.0 [facility] Comment on above: Performed By: #### C MP, FT4, VIDH, LIPID, A1C, GFR, TSH ####[id number] [place], [place] [address] Globulin 3.2 G/dL Normal [facility] Comment on above: Performed By: #### C MP, FT4, VIDH, LIPID, A1C, GFR, TSH ####[address] [place], [place] [address] Glucose [Mass/Vol] 135 mg/dL High 83-110 [facility] Comment on above: Performed By: #### C MP, FT4, VIDH, LIPID, A1C, GFR, TSH ####[address] [place], [place] [address] Potassium [Moles/Vol] 4.1 mmol/L Normal 3.5-5.1 [facility] Comment on above: Performed By: #### C MP, FT4, VIDH, LIPID, A1C, GFR, TSH ####[address] [address] Sodium [Moles/Vol] 138 mmol/L Normal 136-145 [facility] Comment on above: Performed By: #### C MP, FT4, VIDH, LIPID, A1C, GFR, TSH ####[address] [place], [place] [address] Total Protein 6.8 G/dL Normal 6.4-8.2 [facility] Comment on above: Performed By: #### C MP, FT4, VIDH, LIPID, A1C, GFR, TSH ####[id number] [place], [place] [address] Urea nitrogen [Mass/Vol] 18 mg/dL Normal 7-18 [facility] Comment on above: Performed By: #### C MP, FT4, VIDH, LIPID, A1C, GFR, TSH ####[place] [place], [place] [address] FT4on 12-27-2023 Free T4 [Mass/Vol] 0.80 ng/dL Normal 0.76-1.46 [facility] Comment on above: Performed By: #### C MP, FT4, VIDH, LIPID, A1C, GFR, TSH ####[address] [place], [place] [address] LABORATORYOrdered By: Javan Fisher on 12-27-2023 Albumin DL <= 20 mg/L (U) [Mass/Vol] [address] mcg/dL Invalid Interpretation Code AO ADM SS Albumin/Creatinine DL <= 20 mg/L (U) [Mass ratio] 545 mcg/mg High 0 - 30 mcg/mg AO ADM SS Creatinine (U) [Mass/Vol] 82.8 mg/dL Normal 39.0 - 259.0 mg/dL AO ADM SS Cholesterol [Mass/Vol] 177 mg/dL Normal 0 - 2 00 mg/dL AO ADM SS Comment on above: Interpretive Data: C holesterol Reference Interval: Less than 200 Desirable 200-239 Borderline high risk 240 and above High risk Cholesterol in HDL [Mass/Vol] 68 mg/dL High 40 - 60 mg/dL AO ADM SS Cholesterol in LDL [Mass/Vol] 94 mg/dL Normal 0 - 130 mg/dL AO ADM SS Triglyceride [Mass/Vol] 75 mg/dL Normal 0 - 150 mg/dL AO ADM SS Comment on above: Interpretive Data: T riglyceride Reference Interval: Less than 150 Normal 150-199 Borderline high risk 200-499 High risk 500 or higher Very high risk LABORATORYOrdered By: SYSTEM SYSTEM on 12-27-2023 25-hydroxyvitamin D3 [Mass/Vol] 38.6 ng/mL Invalid Interpretation Code AO ADM SS Comment on above: Interpretive Data: I nterpretive Values Based on Total 25(OH) Vitamin D: Deficient <20 ng/mL Insufficient 20 - <30 ng/mL Sufficient 30-100 ng/mL Albumin BCP dye [Mass/Vol] 3.6 G/dL Normal 3.4 - 4.8 G/dL AO ADM SS Albumin/Globulin [Mass ratio] 1.1 {ratio} Normal 1.1 - 2.5 ratio AO ADM SS ALP [Catalytic activity/Vol] 54 U/L Normal 40 - 135 U/L AO ADM SS ALT With P-5'-P [Catalytic activity/Vol] 44 U/L Normal 16 - 63 U/L AO ADM SS AST With P-5'-P [Catalytic activity/Vol] 20 U/L Normal 10 - 40 U/L AO ADM SS Bilirubin [Mass/Vol] 0.7 mg/dL Normal 0.2 - 1 .0 mg/dL AO ADM SS Comment on above: Interpretive Data: U se of this assay is not recommended for patients undergoing treatment with eltrombopag due to the potential for falsely elevated results. Calcium [Mass/Vol] 8.8 mg/dL Normal 8.4 - 10. 2 mg/dL AO ADM SS Chloride [Moles/Vol] 102 mmol/L Normal 98 - 10 7 mmol/L AO ADM SS CO2 [Moles/Vol] 29 mmol/L Normal 23 - 31 mmol/L AO ADM SS Creatinine [Mass/Vol] 1.01 mg/dL Normal 0.70 - 1.30 mg/dL AO ADM SS Comment on above: Interpretive Data: T esting performed on Siemens Dimension EXL analyzer using a modified kinetic Panchito technique. Electrolyte Balance 7.0 mEq/L Normal 4.0 - 15 .0 mEq/L AO ADM SS Free T4 [Mass/Vol] 0.80 ng/dL Normal 0.76 - 1.46 ng/dL AO ADM SS GFR/1.73 sq M.predicted among blacks MDRD (S/P/Bld) [Vol rate/Area] 88 ml/min/1.73sqm Invalid Interpretation Code AO Chemistry S Comment on above: Interpretive Data: GFR Population mean for , Non- Americans Ages 20-29 = 116 mL/min/1.73 sq.m. Ages 30-39 = 107 mL/min/1.73 sq.m. Ages 40-49 = 99 mL/min/1.73 sq.m. Ages 50-59 = 93 mL/min/1.73 sq.m. Ages 60-69 = 85 mL/min/1.73 sq.m. Ages 70+ = 75 mL/min/1.73 sq.m. Chronic Kidney Disease: Less than 60 mL/min/1.73 square meters End Stage Renal Disease: Less than 15 mL/min/1.73 square meters GFR/1.73 sq M.predicted among non-blacks MDRD (S/P/Bld) [Vol rate/Area] 73 ml/min/1.73sqm Invalid Interpretation Code AO Chemistry S Comment on above: Interpretive Data: GFR Population mean for , Non- Americans Ages 20-29 = 116 mL/min/1.73 sq.m. Ages 30-39 = 107 mL/min/1.73 sq.m. Ages 40-49 = 99 mL/min/1.73 sq.m. Ages 50-59 = 93 mL/min/1.73 sq.m. Ages 60-69 = 85 mL/min/1.73 sq.m. Ages 70+ = 75 mL/min/1.73 sq.m. Chronic Kidney Disease: Less than 60 mL/min/1.73 square meters End Stage Renal Disease: Less than 15 mL/min/1.73 square meters Globulin 3.2 G/dL Invalid Interpretation Code AO ADM SS Glucose [Mass/Vol] 157 mg/dL Invalid Interpretation Code AO Chemistry S Comment on above: Interpretive Data: E stimated average glucose (eAG) is a calculated value from Hemoglobin A1C and is enrollment representative of the average blood glucose level in the last 2-3 month period. Normal range: less than 114 mg/dL Glucose [Mass/Vol] 135 mg/dL High 83 - 110 mg/dL AO ADM SS HbA1c (Bld) [Mass fraction] 7.1 % High 4.3 - 6.4 % AO ADM SS Potassium [Moles/Vol] 4.1 mmol/L Normal 3.5 - 5.1 mmol/L AO ADM SS Protein [Mass/Vol] 6.8 G/dL Normal 6.4 - 8.2 G/dL AO ADM SS Sodium [Moles/Vol] 138 mmol/L Normal 136 - 145 mmol/L AO ADM SS TSH Qn 2.01 m[IU]/L Normal 0.36 - 3.74 mcIU/mL AO ADM SS Urea nitrogen [Mass/Vol] 18 mg/dL Normal 7 - 18 mg/dL AO ADM SS Urea nitrogen/Creatinine [Mass ratio] 18 ratio Normal 7 - 27 ratio AO ADM SS LIPIDon 12-27-2023 Cholesterol [Mass/Vol] 177 mg/dL Normal 0-200 [facility] Comment on above: Result Comment: Chol esterol Reference Interval: Less than 200 Desirable 200-239 Borderline high risk 240 and above High risk Performed By: #### C MP, FT4, VIDH, LIPID, A1C, GFR, TSH ####[place] [place], [place] [address] Cholesterol in HDL [Mass/Vol] 68 mg/dL High 40-60 [facility] Comment on above: Performed By: #### C MP, FT4, VIDH, LIPID, A1C, GFR, TSH ####[facility] [place], [place] [address] Cholesterol in LDL [Mass/Vol] 94 mg/dL Normal 0-130 [facility] Comment on above: Performed By: #### C MP, FT4, VIDH, LIPID, A1C, GFR, TSH ####[place] [address] [place], [place] [address] Triglyceride [Mass/Vol] 75 mg/dL Normal 0-150 [facility] Comment on above: Result Comment: Trig lyceride Reference Interval: Less than 150 Normal 150-199 Borderline high risk 200-499 High risk 500 or higher Very high risk Performed By: #### C MP, FT4, VIDH, LIPID, A1C, GFR, TSH ####[address] [place], [place] [address] MALBRon 12-27-2023 U Creatinine 82.8 mg/dL Normal 39.0-259.0 [facility] Comment on above: Performed By: #### M ALBR #### [address] [address] U Microalb [address] mcg/dL Normal [facility] Comment on above: Performed By: #### M ALBR #### [address] [address] U Ratio Alb/Cre 545 mcg/mg High 0-30 [facility] Comment on above: Performed By: #### M ALBR #### [address] [address] TSHon 12-27-2023 TSH Qn 2.01 m[IU]/L Normal 0.36-3.74 [facility] Comment on above: Performed By: #### C MP, FT4, VIDH, LIPID, A1C, GFR, TSH #### [address] [place], [place] [address] VIDHon 12-27-2023 Vit. D 25-Hydroxy 38.6 ng/mL Normal [facility] Comment on above: Result Comment: Inte rpretive Values Based on Total 25(OH) Vitamin D: Deficient <20 ng/mL Insufficient 20 - <30 ng/mL Sufficient 30-100 ng/mL Performed By: #### C MP, FT4, VIDH, LIPID, A1C, GFR, TSH ####[place] [address] [place], [place] [address] .GFRon 06-01-2023 GFR 81 ml/min/1.73sqm Normal [facility] ([place]) Comment on above: Result Comment: GFR Population mean for , Non- Americans Ages 20-29 = 116 mL/min/1.73 sq.m. Ages 30-39 = 107 mL/min/1.73 sq.m. Ages 40-49 = 99 mL/min/1.73 sq.m. Ages 50-59 = 93 mL/min/1.73 sq.m. Ages 60-69 = 85 mL/min/1.73 sq.m. Ages 70+ = 75 mL/min/1.73 sq.m. Chronic Kidney Disease: Less than 60 mL/min/1.73 square meters End Stage Renal Disease: Less than 15 mL/min/1.73 square meters Performed By: #### F T3, TSH, VIDH, GFR, CMP, A1C, FT4 #### [place] [address] [place], [place] [address] GFR Non- 67 ml/min/1.73sqm Normal [facility] ([place]) Comment on above: Result Comment: GFR Population mean for , Non- Americans Ages 20-29 = 116 mL/min/1.73 sq.m. Ages 30-39 = 107 mL/min/1.73 sq.m. Ages 40-49 = 99 mL/min/1.73 sq.m. Ages 50-59 = 93 mL/min/1.73 sq.m. Ages 60-69 = 85 mL/min/1.73 sq.m. Ages 70+ = 75 mL/min/1.73 sq.m. Chronic Kidney Disease: Less than 60 mL/min/1.73 square meters End Stage Renal Disease: Less than 15 mL/min/1.73 square meters Performed By: #### F T3, TSH, VIDH, GFR, CMP, A1C, FT4 #### [address] [address] A1Con 06-01-2023 HbA1c (Bld) [Mass fraction] 7.5 % High 4.3-6.4 [facility] ([place]) Comment on above: Performed By: #### F T3, TSH, VIDH, GFR, CMP, A1C, FT4 #### [address] [address] CMPon 06-01-2023 Albumin Level 3.5 G/dL Normal 3.4-4.8 [facility] ([place]) Comment on above: Performed By: #### F T3, TSH, VIDH, GFR, CMP, A1C, FT4 #### [address] [address] Albumin/Globulin [Mass ratio] 1.1 {ratio} Normal 1.1-2.5 [facility] ([place]) Comment on above: Performed By: #### F T3, TSH, VIDH, GFR, CMP, A1C, FT4 #### [address] [address] ALP [Catalytic activity/Vol] 56 U/L Normal 40-135 [facility] ([place]) Comment on above: Performed By: #### F T3, TSH, VIDH, GFR, CMP, A1C, FT4 #### [address] [address] ALT [Catalytic activity/Vol] 40 U/L Normal 16-63 [facility] ([place]) Comment on above: Performed By: #### F T3, TSH, VIDH, GFR, CMP, A1C, FT4 #### [address] [address] AST [Catalytic activity/Vol] 19 U/L Normal 10-40 [facility] ([place]) Comment on above: Performed By: #### F T3, TSH, VIDH, GFR, CMP, A1C, FT4 #### [address] [address] Bili Total 0.7 mg/dL Normal 0.2-1.0 [facility] ([place]) Comment on above: Result Comment: Use of this assay is not recommended for patients undergoing treatment with eltrombopag due to the potential for falsely elevated results. Performed By: #### F T3, TSH, VIDH, GFR, CMP, A1C, FT4 #### [address] [address] BUN/Creatinine Ratio 21 ratio Normal 7-27 [facility] ([place]) Comment on above: Performed By: #### F T3, TSH, VIDH, GFR, CMP, A1C, FT4 #### [address] [address] Calcium [Mass/Vol] 8.9 mg/dL Normal 8.4-10.2 [facility] ([place] Comment on above: Performed By: #### F T3, TSH, VIDH, GFR, CMP, A1C, FT4 #### [address] [address] Chloride [Moles/Vol] 106 mmol/L Normal 98-107 [facility] ([place]) Comment on above: Performed By: #### F T3, TSH, VIDH, GFR, CMP, A1C, FT4 #### [address] [address] CO2 [Moles/Vol] 25 mmol/L Normal 23-31 [facility] ([place]) Comment on above: Performed By: #### F T3, TSH, VIDH, GFR, CMP, A1C, FT4 #### [address] [address] Creatinine [Mass/Vol] 1.08 mg/dL Normal 0.70-1.30 [facility] ([place]) Comment on above: Performed By: #### F T3, TSH, VIDH, GFR, CMP, A1C, FT4 #### [address] [address] Electrolyte Balance 12.0 mEq/L Normal 4.0-15.0 [facility] ([place]) Comment on above: Performed By: #### F T3, TSH, VIDH, GFR, CMP, A1C, FT4 #### [address] [address] Globulin 3.3 G/dL Normal [facility] ([place]) Comment on above: Performed By: #### F T3, TSH, VIDH, GFR, CMP, A1C, FT4 #### [address] [address] Glucose [Mass/Vol] 180 mg/dL High 83-110 [facility] Comment on above: Performed By: #### F T3, TSH, VIDH, GFR, CMP, A1C, FT4 #### [address] [address] Potassium [Moles/Vol] 4.2 mmol/L Normal 3.5-5.1 [facility] ([place]) Comment on above: Performed By: #### F T3, TSH, VIDH, GFR, CMP, A1C, FT4 #### [address] [address] Sodium [Moles/Vol] 143 mmol/L Normal 136-145 [facility] Comment on above: Performed By: #### F T3, TSH, VIDH, GFR, CMP, A1C, FT4 #### [address] [address] Total Protein 6.8 G/dL Normal 6.4-8.2 [facility] ([place]) Comment on above: Performed By: #### F T3, TSH, VIDH, GFR, CMP, A1C, FT4 #### [address] [address] Urea nitrogen [Mass/Vol] 23 mg/dL High 7-18 [facility] ([place]) Comment on above: Performed By: #### F T3, TSH, VIDH, GFR, CMP, A1C, FT4 #### [address] [address] FT4on 06-01-2023 Free T4 [Mass/Vol] 0.96 ng/dL Normal 0.76-1.46 [facility] Comment on above: Performed By: #### F T3, TSH, VIDH, GFR, CMP, A1C, FT4 #### [address] [place] [place], [place] [address] LABORATORYOrdered By: Javan Fisher on 06-01-2023 Albumin DL <= 20 mg/L (U) [Mass/Vol] [address] mcg/dL Invalid Interpretation Code AO ADM SS Albumin/Creatinine DL <= 20 mg/L (U) [Mass ratio] 566 mcg/mg High 0 - 30 mcg/mg AO ADM SS Creatinine (U) [Mass/Vol] 87.2 mg/dL Normal 39.0 - 259.0 mg/dL AO ADM SS Cholesterol [Mass/Vol] 133 mg/dL Normal 0 - 2 00 mg/dL AO ADM SS Comment on above: Interpretive Data: C holesterol Reference Interval: Less than 200 Desirable 200-239 Borderline high risk 240 and above High risk Cholesterol in HDL [Mass/Vol] 51 mg/dL Normal 40 - 60 mg/dL AO ADM SS Cholesterol in LDL [Mass/Vol] 70 mg/dL Normal 0 - 130 mg/dL AO ADM SS Triglyceride [Mass/Vol] 59 mg/dL Normal 0 - 150 mg/dL AO ADM SS Comment on above: Interpretive Data: T riglyceride Reference Interval: Less than 150 Normal 150-199 Borderline high risk 200-499 High risk 500 or higher Very high risk LABORATORYOrdered By: SYSTEM SYSTEM on 06-01-2023 25-hydroxyvitamin D3 [Mass/Vol] 34.5 ng/mL Invalid Interpretation Code AO ADM SS Comment on above: Interpretive Data: I nterpretive Values Based on Total 25(OH) Vitamin D: Deficient <20 ng/mL Insufficient 20 - <30 ng/mL Sufficient 30-100 ng/mL Albumin BCP dye [Mass/Vol] 3.5 G/dL Normal 3.4 - 4.8 G/dL AO ADM SS Albumin/Globulin [Mass ratio] 1.1 {ratio} Normal 1.1 - 2.5 ratio AO ADM SS ALP [Catalytic activity/Vol] 56 U/L Normal 40 - 135 U/L AO ADM SS ALT With P-5'-P [Catalytic activity/Vol] 40 U/L Normal 16 - 63 U/L AO ADM SS AST With P-5'-P [Catalytic activity/Vol] 19 U/L Normal 10 - 40 U/L AO ADM SS Bilirubin [Mass/Vol] 0.7 mg/dL Normal 0.2 - 1 .0 mg/dL AO ADM SS Comment on above: Interpretive Data: U se of this assay is not recommended for patients undergoing treatment with eltrombopag due to the potential for falsely elevated results. Calcium [Mass/Vol] 8.9 mg/dL Normal 8.4 - 10. 2 mg/dL AO ADM SS Chloride [Moles/Vol] 106 mmol/L Normal 98 - 10 7 mmol/L AO ADM SS CO2 [Moles/Vol] 25 mmol/L Normal 23 - 31 mmol/L AO ADM SS Creatinine [Mass/Vol] 1.08 mg/dL Normal 0.70 - 1.30 mg/dL AO ADM SS Electrolyte Balance 12.0 mEq/L Normal 4.0 - 15 .0 mEq/L AO ADM SS Free T4 [Mass/Vol] 0.96 ng/dL Normal 0.76 - 1.46 ng/dL AO ADM SS GFR/1.73 sq M.predicted among blacks MDRD (S/P/Bld) [Vol rate/Area] 81 ml/min/1.73sqm Invalid Interpretation Code AO Chemistry S Comment on above: Interpretive Data: GFR Population mean for , Non- Americans Ages 20-29 = 116 mL/min/1.73 sq.m. Ages 30-39 = 107 mL/min/1.73 sq.m. Ages 40-49 = 99 mL/min/1.73 sq.m. Ages 50-59 = 93 mL/min/1.73 sq.m. Ages 60-69 = 85 mL/min/1.73 sq.m. Ages 70+ = 75 mL/min/1.73 sq.m. Chronic Kidney Disease: Less than 60 mL/min/1.73 square meters End Stage Renal Disease: Less than 15 mL/min/1.73 square meters GFR/1.73 sq M.predicted among non-blacks MDRD (S/P/Bld) [Vol rate/Area] 67 ml/min/1.73sqm Invalid Interpretation Code AO Chemistry S Comment on above: Interpretive Data: GFR Population mean for , Non- Americans Ages 20-29 = 116 mL/min/1.73 sq.m. Ages 30-39 = 107 mL/min/1.73 sq.m. Ages 40-49 = 99 mL/min/1.73 sq.m. Ages 50-59 = 93 mL/min/1.73 sq.m. Ages 60-69 = 85 mL/min/1.73 sq.m. Ages 70+ = 75 mL/min/1.73 sq.m. Chronic Kidney Disease: Less than 60 mL/min/1.73 square meters End Stage Renal Disease: Less than 15 mL/min/1.73 square meters Globulin 3.3 G/dL Invalid Interpretation Code AO ADM SS Glucose [Mass/Vol] 180 mg/dL High 83 - 110 mg/dL AO ADM SS HbA1c (Bld) [Mass fraction] 7.5 % High 4.3 - 6.4 % AO ADM SS Potassium [Moles/Vol] 4.2 mmol/L Normal 3.5 - 5.1 mmol/L AO ADM SS Prostate specific Ag [Mass/Vol] 2.10 ng/mL Normal 0.00 - 4.00 ng/mL AO ADM SS Protein [Mass/Vol] 6.8 G/dL Normal 6.4 - 8.2 G/dL AO ADM SS Sodium [Moles/Vol] 143 mmol/L Normal 136 - 145 mmol/L AO ADM SS TSH Qn 1.35 m[IU]/L Normal 0.36 - 3.74 mcIU/mL AO ADM SS Urea nitrogen [Mass/Vol] 23 mg/dL High 7 - 18 mg/dL AO ADM SS Urea nitrogen/Creatinine [Mass ratio] 21 ratio Normal 7 - 27 ratio AO ADM SS LIPIDon 06-01-2023 Cholesterol [Mass/Vol] 133 mg/dL Normal 0-200 [facility] ([place]) Comment on above: Result Comment: Chol esterol Reference Interval: Less than 200 Desirable 200-239 Borderline high risk 240 and above High risk Performed By: #### F T3, TSH, VIDH, GFR, CMP, A1C, FT4 #### [id number] [place], [place] [address] Cholesterol in HDL [Mass/Vol] 51 mg/dL Normal 40-60 [facility] ([place]) Comment on above: Performed By: #### F T3, TSH, VIDH, GFR, CMP, A1C, FT4 #### [address] [address] Cholesterol in LDL [Mass/Vol] 70 mg/dL Normal 0-130 [facility] ([place]) Comment on above: Performed By: #### F T3, TSH, VIDH, GFR, CMP, A1C, FT4 #### [address] [address] Triglyceride [Mass/Vol] 59 mg/dL Normal 0-150 [facility] ([place]) Comment on above: Result Comment: Trig lyceride Reference Interval: Less than 150 Normal 150-199 Borderline high risk 200-499 High risk 500 or higher Very high risk Performed By: #### F T3, TSH, VIDH, GFR, CMP, A1C, FT4 #### [address] [address] MALBRon 06-01-2023 U Creatinine 87.2 mg/dL Normal 39.0-259.0 [facility] ([place]) Comment on above: Performed By: #### M ALBR #### [address] [address] U Microalb [address] mcg/dL Normal [facility] ([place]) Comment on above: Performed By: #### M ALBR #### [address] [address] U Ratio Alb/Cre 566 mcg/mg High 0-30 [facility] ([place]) Comment on above: Performed By: #### M ALBR #### [address] [address] PSAon 06-01-2023 Prostate Specific Antigen 2.10 ng/mL Normal 0.00-4.00 [facility] ([place]) Comment on above: Performed By: #### F T3, TSH, VIDH, GFR, CMP, A1C, FT4 #### [address] [address] TSHon 03-02-2024 TSH Qn 1.35 m[IU]/L Normal 0.36-3.74 [facility] ([place]) Comment on above: Performed By: #### F T3, TSH, VIDH, GFR, CMP, A1C, FT4 #### Bhavana [address] [address] VIDHon 06-01-2023 Vit. D 25-Hydroxy 34.5 ng/mL Normal [facility] ([place]) Comment on above: Result Comment: Inte rpretive Values Based on Total 25(OH) Vitamin D: Deficient <20 ng/mL Insufficient 20 - <30 ng/mL Sufficient 30-100 ng/mL Performed By: #### F T3, TSH, VIDH, GFR, CMP, A1C, FT4 #### Bhavana [address] [address] .GFRon 12-08-2022 GFR 101 ml/min/1.73sqm Normal [facility] ([place]) Comment on above: Result Comment: GFR Population mean for , Non- Americans Ages 20-29 = 116 mL/min/1.73 sq.m. Ages 30-39 = 107 mL/min/1.73 sq.m. Ages 40-49 = 99 mL/min/1.73 sq.m. Ages 50-59 = 93 mL/min/1.73 sq.m. Ages 60-69 = 85 mL/min/1.73 sq.m. Ages 70+ = 75 mL/min/1.73 sq.m. Chronic Kidney Disease: Less than 60 mL/min/1.73 square meters End Stage Renal Disease: Less than 15 mL/min/1.73 square meters Performed By: #### F T3, TSH, VIDH, GFR, CMP, A1C, FT4 #### [address] [address] GFR Non- 83 ml/min/1.73sqm Normal [facility] ([place]) Comment on above: Result Comment: GFR Population mean for , Non- Americans Ages 20-29 = 116 mL/min/1.73 sq.m. Ages 30-39 = 107 mL/min/1.73 sq.m. Ages 40-49 = 99 mL/min/1.73 sq.m. Ages 50-59 = 93 mL/min/1.73 sq.m. Ages 60-69 = 85 mL/min/1.73 sq.m. Ages 70+ = 75 mL/min/1.73 sq.m. Chronic Kidney Disease: Less than 60 mL/min/1.73 square meters End Stage Renal Disease: Less than 15 mL/min/1.73 square meters Performed By: #### F T3, TSH, VIDH, GFR, CMP, A1C, FT4 #### [address] [address] A1Con 12-08-2022 HbA1c (Bld) [Mass fraction] 8.0 % High 4.3-6.4 [facility] ([place]) Comment on above: Performed By: #### A 1C, LIPID, TSH, FT4, GFR, CMP, VIDH #### [address] [address] CMPon 12-08-2022 Albumin Level 3.7 G/dL Normal 3.4-4.8 [facility] ([place]) Comment on above: Performed By: #### F T3, TSH, VIDH, GFR, CMP, A1C, FT4 #### [address] [address] Albumin/Globulin [Mass ratio] 1.1 {ratio} Normal 1.1-2.5 [facility] ([place]) Comment on above: Performed By: #### F T3, TSH, VIDH, GFR, CMP, A1C, FT4 #### [address] [address] ALP [Catalytic activity/Vol] 53 U/L Normal 40-135 [facility] ([place]) Comment on above: Performed By: #### F T3, TSH, VIDH, GFR, CMP, A1C, FT4 #### [address] [address] ALT [Catalytic activity/Vol] 46 U/L Normal 16-63 [facility] ([place]) Comment on above: Performed By: #### F T3, TSH, VIDH, GFR, CMP, A1C, FT4 #### [address] [address] AST [Catalytic activity/Vol] 21 U/L Normal 10-40 [facility] ([place]) Comment on above: Performed By: #### F T3, TSH, VIDH, GFR, CMP, A1C, FT4 #### [address] [address] Bili Total 1.2 mg/dL High 0.2-1.0 [facility] ([place]) Comment on above: Result Comment: Use of this assay is not recommended for patients undergoing treatment with eltrombopag due to the potential for falsely elevated results. Performed By: #### F T3, TSH, VIDH, GFR, CMP, A1C, FT4 #### [address] [address] BUN/Creatinine Ratio 22 ratio Normal 7-27 [facility] ([place]) Comment on above: Performed By: #### F T3, TSH, VIDH, GFR, CMP, A1C, FT4 #### [address] [address] Calcium [Mass/Vol] 8.8 mg/dL Normal 8.4-10.2 [facility] ([place] Comment on above: Performed By: #### F T3, TSH, VIDH, GFR, CMP, A1C, FT4 #### [address] [address] Chloride [Moles/Vol] 105 mmol/L Normal 98-107 [facility] ([place]) Comment on above: Performed By: #### F T3, TSH, VIDH, GFR, CMP, A1C, FT4 #### [address] [address] CO2 [Moles/Vol] 26 mmol/L Normal 23-31 [facility] ([place]) Comment on above: Performed By: #### F T3, TSH, VIDH, GFR, CMP, A1C, FT4 #### [address] [address] Creatinine [Mass/Vol] 0.90 mg/dL Normal 0.70-1.30 [facility] ([place]) Comment on above: Performed By: #### F T3, TSH, VIDH, GFR, CMP, A1C, FT4 #### [address] [address] Electrolyte Balance 9.0 mEq/L Normal 4.0-15.0 [facility] ([place]) Comment on above: Performed By: #### F T3, TSH, VIDH, GFR, CMP, A1C, FT4 #### [address] [address] Globulin 3.3 G/dL Normal [facility] ([place]) Comment on above: Performed By: #### F T3, TSH, VIDH, GFR, CMP, A1C, FT4 #### [address] [address] Glucose [Mass/Vol] 112 mg/dL High 83-110 [facility] [place] Comment on above: Performed By: #### F T3, TSH, VIDH, GFR, CMP, A1C, FT4 #### [address] [address] Potassium [Moles/Vol] 4.2 mmol/L Normal 3.5-5.1 [facility] ([place]) Comment on above: Performed By: #### F T3, TSH, VIDH, GFR, CMP, A1C, FT4 #### [address] [address] Sodium [Moles/Vol] 140 mmol/L Normal 136-145 [facility] [place] Comment on above: Performed By: #### F T3, TSH, VIDH, GFR, CMP, A1C, FT4 #### [address] [address] Total Protein 7.0 G/dL Normal 6.4-8.2 [facility] ([place]) Comment on above: Performed By: #### F T3, TSH, VIDH, GFR, CMP, A1C, FT4 #### [address] [address] Urea nitrogen [Mass/Vol] 20 mg/dL High 7-18 [facility] ([place]) Comment on above: Performed By: #### F T3, TSH, VIDH, GFR, CMP, A1C, FT4 #### [address] [place], [place] [address] FT4on 12-08-2022 Free T4 [Mass/Vol] 0.95 ng/dL Normal 0.76-1.46 [facility] ([place]) Comment on above: Performed By: #### F T3, TSH, VIDH, GFR, CMP, A1C, FT4 #### [address] [place], [place] [address] LABORATORYOrdered By: SYSTEM SYSTEM on 12-08-2022 25-hydroxyvitamin D3 [Mass/Vol] 42.8 ng/mL Invalid Interpretation Code AO ADM SS Comment on above: Interpretive Data: I nterpretive Values Based on Total 25(OH) Vitamin D: Deficient <20 ng/mL Insufficient 20 - <30 ng/mL Sufficient 30-100 ng/mL Albumin BCP dye [Mass/Vol] 3.7 G/dL Invalid Interpretation Code 3.4 - 4.8 G/dL AO ADM SS Albumin/Globulin [Mass ratio] 1.1 {ratio} Invalid Interpretation Code 1.1 - 2.5 ratio AO ADM SS ALP [Catalytic activity/Vol] 53 U/L Invalid Interpretation Code 40 - 135 U/L AO ADM SS ALT With P-5'-P [Catalytic activity/Vol] 46 U/L Invalid Interpretation Code 16 - 63 U/L AO ADM SS AST With P-5'-P [Catalytic activity/Vol] 21 U/L Invalid Interpretation Code 10 - 40 U/L AO ADM SS Bilirubin [Mass/Vol] 1.2 mg/dL Invalid Interpretation Code 0.2 - 1.0 mg/dL AO ADM SS Comment on above: Interpretive Data: U se of this assay is not recommended for patients undergoing treatment with eltrombopag due to the potential for falsely elevated results. Calcium [Mass/Vol] 8.8 mg/dL Invalid Interpretation Code 8.4 - 10.2 mg/dL AO ADM SS Chloride [Moles/Vol] 105 mmol/L Invalid Interpretation Code 98 - 107 mmol/L AO ADM SS CO2 [Moles/Vol] 26 mmol/L Invalid Interpretation Code 23 - 31 mmol/L AO ADM SS Creatinine [Mass/Vol] 0.90 mg/dL Invalid Interpretation Code 0.70 - 1.30 mg/dL AO ADM SS Electrolyte Balance 9.0 mEq/L Invalid Interpretation Code 4.0 - 15.0 mEq/L AO ADM SS Free T4 [Mass/Vol] 0.95 ng/dL Invalid Interpretation Code 0.76 - 1.46 ng/dL AO ADM SS GFR/1.73 sq M.predicted among blacks MDRD (S/P/Bld) [Vol rate/Area] 101 ml/min/1.73sqm Invalid Interpretation Code AO Chemistry S Comment on above: Interpretive Data: GFR Population mean for , Non- Americans Ages 20-29 = 116 mL/min/1.73 sq.m. Ages 30-39 = 107 mL/min/1.73 sq.m. Ages 40-49 = 99 mL/min/1.73 sq.m. Ages 50-59 = 93 mL/min/1.73 sq.m. Ages 60-69 = 85 mL/min/1.73 sq.m. Ages 70+ = 75 mL/min/1.73 sq.m. Chronic Kidney Disease: Less than 60 mL/min/1.73 square meters End Stage Renal Disease: Less than 15 mL/min/1.73 square meters GFR/1.73 sq M.predicted among non-blacks MDRD (S/P/Bld) [Vol rate/Area] 83 ml/min/1.73sqm Invalid Interpretation Code AO Chemistry S Comment on above: Interpretive Data: GFR Population mean for , Non- Americans Ages 20-29 = 116 mL/min/1.73 sq.m. Ages 30-39 = 107 mL/min/1.73 sq.m. Ages 40-49 = 99 mL/min/1.73 sq.m. Ages 50-59 = 93 mL/min/1.73 sq.m. Ages 60-69 = 85 mL/min/1.73 sq.m. Ages 70+ = 75 mL/min/1.73 sq.m. Chronic Kidney Disease: Less than 60 mL/min/1.73 square meters End Stage Renal Disease: Less than 15 mL/min/1.73 square meters Globulin 3.3 G/dL Invalid Interpretation Code AO ADM SS Glucose [Mass/Vol] 112 mg/dL Invalid Interpretation Code 83 - 110 mg/dL AO ADM SS HbA1c (Bld) [Mass fraction] 8.0 % Invalid Interpretation Code 4.3 - 6.4 % AO ADM SS Potassium [Moles/Vol] 4.2 mmol/L Invalid Interpretation Code 3.5 - 5.1 mmol/L AO ADM SS Protein [Mass/Vol] 7.0 G/dL Invalid Interpretation Code 6.4 - 8.2 G/dL AO ADM SS Sodium [Moles/Vol] 140 mmol/L Invalid Interpretation Code 136 - 145 mmol/L AO ADM SS TSH Qn 1.61 m[IU]/L Invalid Interpretation Code 0.36 - 3.74 mcIU/mL AO ADM SS Urea nitrogen [Mass/Vol] 20 mg/dL Invalid Interpretation Code 7 - 18 mg/dL AO ADM SS Urea nitrogen/Creatinine [Mass ratio] 22 ratio Invalid Interpretation Code 7 - 27 ratio AO ADM SS LABORATORYOrdered By: Javan Fisher on 12-08-2022 Albumin DL <= 20 mg/L (U) [Mass/Vol] [address] mcg/dL Invalid Interpretation Code AO ADM SS Albumin/Creatinine DL <= 20 mg/L (U) [Mass ratio] 485 mcg/mg Invalid Interpretation Code 0 - 30 mcg/mg AO ADM SS Cholesterol [Mass/Vol] 147 mg/dL Invalid Interpretation Code 0 - 200 mg/dL AO ADM SS Comment on above: Interpretive Data: C holesterol Reference Interval: Less than 200 Desirable 200-239 Borderline high risk 240 and above High risk Cholesterol in HDL [Mass/Vol] 66 mg/dL Invalid Interpretation Code 40 - 60 mg/dL AO ADM SS Cholesterol in LDL [Mass/Vol] 69 mg/dL Invalid Interpretation Code 0 - 130 mg/dL AO ADM SS Creatinine (U) [Mass/Vol] 69.2 mg/dL Invalid Interpretation Code 39.0 - 259.0 mg/dL AO ADM SS Triglyceride [Mass/Vol] 62 mg/dL Invalid Interpretation Code 0 - 150 mg/dL AO ADM SS Comment on above: Interpretive Data: T riglyceride Reference Interval: Less than 150 Normal 150-199 Borderline high risk 200-499 High risk 500 or higher Very high risk LIPIDon 12-08-2022 Cholesterol [Mass/Vol] 147 mg/dL Normal 0-200 [facility] ([place]) Comment on above: Result Comment: Chol esterol Reference Interval: Less than 200 Desirable 200-239 Borderline high risk 240 and above High risk Performed By: #### F T3, TSH, VIDH, GFR, CMP, A1C, FT4 #### [address] [address] Cholesterol in HDL [Mass/Vol] 66 mg/dL High 40-60 [facility] ([place]) Comment on above: Performed By: #### F T3, TSH, VIDH, GFR, CMP, A1C, FT4 #### [place] [address] [address] Cholesterol in LDL [Mass/Vol] 69 mg/dL Normal 0-130 [facility] ([place]) Comment on above: Performed By: #### F T3, TSH, VIDH, GFR, CMP, A1C, FT4 #### [address] [address] Triglyceride [Mass/Vol] 62 mg/dL Normal 0-150 [facility] ([place]) Comment on above: Result Comment: Trig lyceride Reference Interval: Less than 150 Normal 150-199 Borderline high risk 200-499 High risk 500 or higher Very high risk Performed By: #### F T3, TSH, VIDH, GFR, CMP, A1C, FT4 #### [address] [address] MALBRon 12-08-2022 U Creatinine 69.2 mg/dL Normal 39.0-259.0 [facility] ([place]) Comment on above: Performed By: #### M ALBR #### [address] [address] U Microalb [address] mcg/dL Normal [facility] ([place]) Comment on above: Performed By: #### M ALBR #### [address] [address] U Ratio Alb/Cre 485 mcg/mg High 0-30 [facility] ([place]) Comment on above: Performed By: #### M ALBR #### [address] [address] TSHon 12-08-2022 TSH Qn 1.61 m[IU]/L Normal 0.36-3.74 [facility] ([place]) Comment on above: Performed By: #### F T3, TSH, VIDH, GFR, CMP, A1C, FT4 #### Bhavana [address] [address] VIDHon 12-08-2022 Vit. D 25-Hydroxy 42.8 ng/mL Normal [facility] ([place]) Comment on above: Result Comment: Inte rpretive Values Based on Total 25(OH) Vitamin D: Deficient <20 ng/mL Insufficient 20 - <30 ng/mL Sufficient 30-100 ng/mL Performed By: #### F T3, TSH, VIDH, GFR, CMP, A1C, FT4 #### Bhavana [address] [address] .GFRon 07-14-2022 GFR 102 ml/min/1.73sqm Normal [facility] ([place]) Comment on above: Result Comment: GFR Population mean for , Non- Americans Ages 20-29 = 116 mL/min/1.73 sq.m. Ages 30-39 = 107 mL/min/1.73 sq.m. Ages 40-49 = 99 mL/min/1.73 sq.m. Ages 50-59 = 93 mL/min/1.73 sq.m. Ages 60-69 = 85 mL/min/1.73 sq.m. Ages 70+ = 75 mL/min/1.73 sq.m. Chronic Kidney Disease: Less than 60 mL/min/1.73 square meters End Stage Renal Disease: Less than 15 mL/min/1.73 square meters Performed By: #### F T3, TSH, VIDH, GFR, CMP, A1C, FT4 #### [address] [address] GFR Non- 84 ml/min/1.73sqm Normal [facility] ([place]) Comment on above: Result Comment: GFR Population mean for , Non- Americans Ages 20-29 = 116 mL/min/1.73 sq.m. Ages 30-39 = 107 mL/min/1.73 sq.m. Ages 40-49 = 99 mL/min/1.73 sq.m. Ages 50-59 = 93 mL/min/1.73 sq.m. Ages 60-69 = 85 mL/min/1.73 sq.m. Ages 70+ = 75 mL/min/1.73 sq.m. Chronic Kidney Disease: Less than 60 mL/min/1.73 square meters End Stage Renal Disease: Less than 15 mL/min/1.73 square meters Performed By: #### F T3, TSH, VIDH, GFR, CMP, A1C, FT4 #### [address] [address] A1Con 07-14-2022 HbA1c (Bld) [Mass fraction] 7.3 % High 4.3-6.4 [facility] ([place]) Comment on above: Performed By: #### F T3, TSH, VIDH, GFR, CMP, A1C, FT4 #### [address] [address] CMPon 07-14-2022 Albumin Level 3.6 G/dL Normal 3.4-4.8 [facility] ([place]) Comment on above: Performed By: #### F T3, TSH, VIDH, GFR, CMP, A1C, FT4 #### [address] [address] Albumin/Globulin [Mass ratio] 1.3 {ratio} Normal 1.1-2.5 [facility] ([place]) Comment on above: Performed By: #### F T3, TSH, VIDH, GFR, CMP, A1C, FT4 #### [address] [address] ALP [Catalytic activity/Vol] 60 U/L Normal 40-135 [facility] ([place]) Comment on above: Performed By: #### F T3, TSH, VIDH, GFR, CMP, A1C, FT4 #### [address] [address] ALT [Catalytic activity/Vol] 38 U/L Normal 16-63 [facility] ([place]) Comment on above: Performed By: #### F T3, TSH, VIDH, GFR, CMP, A1C, FT4 #### [address] [address] AST [Catalytic activity/Vol] 20 U/L Normal 10-40 [facility] ([place]) Comment on above: Performed By: #### F T3, TSH, VIDH, GFR, CMP, A1C, FT4 #### [address] [address] Bili Total 1.2 mg/dL High 0.2-1.0 [facility] ([place]) Comment on above: Result Comment: Use of this assay is not recommended for patients undergoing treatment with eltrombopag due to the potential for falsely elevated results. Performed By: #### F T3, TSH, VIDH, GFR, CMP, A1C, FT4 #### [address] [address] BUN/Creatinine Ratio 18 ratio Normal 7-27 [facility] ([place]) Comment on above: Performed By: #### F T3, TSH, VIDH, GFR, CMP, A1C, FT4 #### [address] [address] Calcium [Mass/Vol] 8.6 mg/dL Normal 8.4-10.2 [facility] ([place]) Comment on above: Performed By: #### F T3, TSH, VIDH, GFR, CMP, A1C, FT4 #### [address] [address] Chloride [Moles/Vol] 104 mmol/L Normal 98-107 [facility] ([place]) Comment on above: Performed By: #### F T3, TSH, VIDH, GFR, CMP, A1C, FT4 #### [address] [address] CO2 [Moles/Vol] 27 mmol/L Normal 23-31 [facility] ([place]) Comment on above: Performed By: #### F T3, TSH, VIDH, GFR, CMP, A1C, FT4 #### [address] [address] Creatinine [Mass/Vol] 0.89 mg/dL Normal 0.70-1.30 [facility] ([place]) Comment on above: Performed By: #### F T3, TSH, VIDH, GFR, CMP, A1C, FT4 #### [address] [address] Electrolyte Balance 9.0 mEq/L Normal 4.0-15.0 [facility] ([place]) Comment on above: Performed By: #### F T3, TSH, VIDH, GFR, CMP, A1C, FT4 #### [address] [address] Globulin 2.8 G/dL Normal [facility] ([place]) Comment on above: Performed By: #### F T3, TSH, VIDH, GFR, CMP, A1C, FT4 #### [address] [address] Glucose [Mass/Vol] 125 mg/dL High 83-110 [facility] ([place] Comment on above: Performed By: #### F T3, TSH, VIDH, GFR, CMP, A1C, FT4 #### [address] [address] Potassium [Moles/Vol] 4.1 mmol/L Normal 3.5-5.1 [facility] ([place]) Comment on above: Performed By: #### F T3, TSH, VIDH, GFR, CMP, A1C, FT4 #### [address] [address] Sodium [Moles/Vol] 140 mmol/L Normal 136-145 [facility] ([place]) Comment on above: Performed By: #### F T3, TSH, VIDH, GFR, CMP, A1C, FT4 #### [address] [address] Total Protein 6.4 G/dL Normal 6.4-8.2 [facility] ([place]) Comment on above: Performed By: #### F T3, TSH, VIDH, GFR, CMP, A1C, FT4 #### [address] [address] Urea nitrogen [Mass/Vol] 16 mg/dL Normal 7-18 [facility] ([place]) Comment on above: Performed By: #### F T3, TSH, VIDH, GFR, CMP, A1C, FT4 #### [address] [address] FT3on 07-14-2022 Free T3 [Mass/Vol] 2.17 pg/mL Low 2.30-4.00 [facility] ([place] Comment on above: Performed By: #### F T3, TSH, VIDH, GFR, CMP, A1C, FT4 #### [address] [address] FT4on 07-14-2022 Free T4 [Mass/Vol] 1.04 ng/dL Normal 0.76-1.46 [facility] ([place]) Comment on above: Performed By: #### F T3, TSH, VIDH, GFR, CMP, A1C, FT4 #### [address] [address] LABORATORYOrdered By: SYSTEM SYSTEM on 07-14-2022 25-hydroxyvitamin D3 [Mass/Vol] 58.9 ng/mL Invalid Interpretation Code AO ADM SS Albumin BCP dye [Mass/Vol] 3.6 G/dL Invalid Interpretation Code 3.4 - 4.8 G/dL AO ADM SS Albumin/Globulin [Mass ratio] 1.3 {ratio} Invalid Interpretation Code 1.1 - 2.5 ratio AO ADM SS ALP [Catalytic activity/Vol] 60 U/L Invalid Interpretation Code 40 - 135 U/L AO ADM SS ALT With P-5'-P [Catalytic activity/Vol] 38 U/L Invalid Interpretation Code 16 - 63 U/L AO ADM SS AST With P-5'-P [Catalytic activity/Vol] 20 U/L Invalid Interpretation Code 10 - 40 U/L AO ADM SS Bilirubin [Mass/Vol] 1.2 mg/dL Invalid Interpretation Code 0.2 - 1.0 mg/dL AO ADM SS Calcium [Mass/Vol] 8.6 mg/dL Invalid Interpretation Code 8.4 - 10.2 mg/dL AO ADM SS Chloride [Moles/Vol] 104 mmol/L Invalid Interpretation Code 98 - 107 mmol/L AO ADM SS CO2 [Moles/Vol] 27 mmol/L Invalid Interpretation Code 23 - 31 mmol/L AO ADM SS Creatinine [Mass/Vol] 0.89 mg/dL Invalid Interpretation Code 0.70 - 1.30 mg/dL AO ADM SS Electrolyte Balance 9.0 mEq/L Invalid Interpretation Code 4.0 - 15.0 mEq/L AO ADM SS Free T3 [Mass/Vol] 2.17 pg/mL Invalid Interpretation Code 2.30 - 4.00 pg/mL AO ADM SS Free T4 [Mass/Vol] 1.04 ng/dL Invalid Interpretation Code 0.76 - 1.46 ng/dL AO ADM SS GFR/1.73 sq M.predicted among blacks MDRD (S/P/Bld) [Vol rate/Area] 102 ml/min/1.73sqm Invalid Interpretation Code AO Chemistry S GFR/1.73 sq M.predicted among non-blacks MDRD (S/P/Bld) [Vol rate/Area] 84 ml/min/1.73sqm Invalid Interpretation Code AO Chemistry S Globulin 2.8 G/dL Invalid Interpretation Code AO ADM SS Glucose [Mass/Vol] 125 mg/dL Invalid Interpretation Code 83 - 110 mg/dL AO ADM SS HbA1c (Bld) [Mass fraction] 7.3 % Invalid Interpretation Code 4.3 - 6.4 % AO ADM SS Potassium [Moles/Vol] 4.1 mmol/L Invalid Interpretation Code 3.5 - 5.1 mmol/L AO ADM SS Protein [Mass/Vol] 6.4 G/dL Invalid Interpretation Code 6.4 - 8.2 G/dL AO ADM SS Sodium [Moles/Vol] 140 mmol/L Invalid Interpretation Code 136 - 145 mmol/L AO ADM SS TSH Qn 1.46 m[IU]/L Invalid Interpretation Code 0.36 - 3.74 mcIU/mL AO ADM SS Urea nitrogen [Mass/Vol] 16 mg/dL Invalid Interpretation Code 7 - 18 mg/dL AO ADM SS Urea nitrogen/Creatinine [Mass ratio] 18 ratio Invalid Interpretation Code 7 - 27 ratio AO ADM SS TSHon 07-14-2022 TSH Qn 1.46 m[IU]/L Normal 0.36-3.74 [facility] ([place]) Comment on above: Performed By: #### F T3, TSH, VIDH, GFR, CMP, A1C, FT4 #### Bhavana [place] [address] VIDHon 07-14-2022 Vit. D 25-Hydroxy 58.9 ng/mL Normal [facility] ([place]) Comment on above: Result Comment: Inte rpretive Values Based on Total 25(OH) Vitamin D: Deficient <20 ng/mL Insufficient 20 - <30 ng/mL Sufficient 30-100 ng/mL Performed By: #### F T3, TSH, VIDH, GFR, CMP, A1C, FT4 #### [address] [address] LABORATORYOrdered By: SYSTEM SYSTEM on 05-26-2022 Albumin BCP dye [Mass/Vol] 3.8 G/dL Invalid Interpretation Code 3.4 - 4.8 G/dL AO ADM SS Albumin/Globulin [Mass ratio] 1.3 {ratio} Invalid Interpretation Code 1.1 - 2.5 ratio AO ADM SS ALP [Catalytic activity/Vol] 62 U/L Invalid Interpretation Code 40 - 135 U/L AO ADM SS ALT With P-5'-P [Catalytic activity/Vol] 42 U/L Invalid Interpretation Code 16 - 63 U/L AO ADM SS AST With P-5'-P [Catalytic activity/Vol] 23 U/L Invalid Interpretation Code 10 - 40 U/L AO ADM SS Bilirubin [Mass/Vol] 1.2 mg/dL Invalid Interpretation Code 0.2 - 1.0 mg/dL AO ADM SS Calcium [Mass/Vol] 8.6 mg/dL Invalid Interpretation Code 8.4 - 10.2 mg/dL AO ADM SS Chloride [Moles/Vol] 105 mmol/L Invalid Interpretation Code 98 - 107 mmol/L AO ADM SS CO2 [Moles/Vol] 26 mmol/L Invalid Interpretation Code 23 - 31 mmol/L AO ADM SS Creatinine [Mass/Vol] 0.91 mg/dL Invalid Interpretation Code 0.70 - 1.30 mg/dL AO ADM SS Electrolyte Balance 11.0 mEq/L Invalid Interpretation Code 4.0 - 15.0 mEq/L AO ADM SS Free T4 [Mass/Vol] 1.01 ng/dL Invalid Interpretation Code 0.76 - 1.46 ng/dL AO ADM SS GFR 100 ml/min/1.73sqm Invalid Interpretation Code AO Chemistry S GFR Non- 82 ml/min/1.73sqm Invalid Interpretation Code AO Chemistry S Globulin 2.9 G/dL Invalid Interpretation Code AO ADM SS Glucose [Mass/Vol] 149 mg/dL Invalid Interpretation Code 83 - 110 mg/dL AO ADM SS HbA1c (Bld) [Mass fraction] 7.2 % Invalid Interpretation Code 4.3 - 6.4 % AO ADM SS Potassium [Moles/Vol] 4.2 mmol/L Invalid Interpretation Code 3.5 - 5.1 mmol/L AO ADM SS Prostate specific Ag [Mass/Vol] 1.91 ng/mL Invalid Interpretation Code 0.00 - 4.00 ng/mL AO ADM SS Protein [Mass/Vol] 6.7 G/dL Invalid Interpretation Code 6.4 - 8.2 G/dL AO ADM SS Sodium [Moles/Vol] 142 mmol/L Invalid Interpretation Code 136 - 145 mmol/L AO ADM SS TSH Qn 1.88 m[IU]/L Invalid Interpretation Code 0.36 - 3.74 mcIU/mL AO ADM SS Urea nitrogen [Mass/Vol] 21 mg/dL Invalid Interpretation Code 7 - 18 mg/dL AO ADM SS Urea nitrogen/Creatinine [Mass ratio] 23 ratio Invalid Interpretation Code 7 - 27 ratio AO ADM SS Vit. D 25-Hydroxy 62.5 ng/mL Invalid Interpretation Code AO ADM SS LABORATORYOrdered By: Javan Fisher on 05-26-2022 Cholesterol [Mass/Vol] 114 mg/dL Invalid Interpretation Code 0 - 200 mg/dL AO ADM SS Cholesterol in HDL [Mass/Vol] 56 mg/dL Invalid Interpretation Code 40 - 60 mg/dL AO ADM SS Cholesterol in LDL [Mass/Vol] 46 mg/dL Invalid Interpretation Code 0 - 130 mg/dL AO ADM SS Triglyceride [Mass/Vol] 58 mg/dL Invalid Interpretation Code 0 - 150 mg/dL AO ADM SS LABORATORYOrdered By: Javan Fisher on 02-10-2022 Albumin BCP dye [Mass/Vol] 3.9 G/dL Invalid Interpretation Code 3.4 - 4.8 G/dL AO ADM SS Albumin DL <= 20 mg/L (U) [Mass/Vol] 55355 mcg/dL Invalid Interpretation Code AO ADM SS Albumin/Creatinine DL <= 20 mg/L (U) [Mass ratio] 265 mcg/mg Invalid Interpretation Code 0 - 30 mcg/mg AO ADM SS Albumin/Globulin [Mass ratio] 1.3 {ratio} Invalid Interpretation Code 1.1 - 2.5 ratio AO ADM SS ALP [Catalytic activity/Vol] 59 U/L Invalid Interpretation Code 40 - 135 U/L AO ADM SS ALT With P-5'-P [Catalytic activity/Vol] 43 U/L Invalid Interpretation Code 16 - 63 U/L AO ADM SS AST With P-5'-P [Catalytic activity/Vol] 20 U/L Invalid Interpretation Code 10 - 40 U/L AO ADM SS Bilirubin [Mass/Vol] 0.7 mg/dL Invalid Interpretation Code 0.2 - 1.0 mg/dL AO ADM SS Calcium [Mass/Vol] 8.7 mg/dL Invalid Interpretation Code 8.4 - 10.2 mg/dL AO ADM SS Chloride [Moles/Vol] 106 mmol/L Invalid Interpretation Code 98 - 107 mmol/L AO ADM SS Cholesterol [Mass/Vol] 104 mg/dL Invalid Interpretation Code 0 - 200 mg/dL AO ADM SS Cholesterol in HDL [Mass/Vol] 48 mg/dL Invalid Interpretation Code 40 - 60 mg/dL AO ADM SS Cholesterol in LDL [Mass/Vol] 39 mg/dL Invalid Interpretation Code 0 - 130 mg/dL AO ADM SS CO2 [Moles/Vol] 26 mmol/L Invalid Interpretation Code 23 - 31 mmol/L AO ADM SS Creatinine (U) [Mass/Vol] 65.3 mg/dL Invalid Interpretation Code 39.0 - 259.0 mg/dL AO ADM SS Creatinine [Mass/Vol] 1.03 mg/dL Invalid Interpretation Code 0.70 - 1.30 mg/dL AO ADM SS Electrolyte Balance 9.0 mEq/L Invalid Interpretation Code 4.0 - 15.0 mEq/L AO ADM SS Free T4 [Mass/Vol] 0.96 ng/dL Invalid Interpretation Code 0.76 - 1.46 ng/dL AO ADM SS Globulin 3.0 G/dL Invalid Interpretation Code AO ADM SS Glucose [Mass/Vol] 152 mg/dL Invalid Interpretation Code 83 - 110 mg/dL AO ADM SS HbA1c (Bld) [Mass fraction] 7.4 % Invalid Interpretation Code 4.3 - 6.4 % AO ADM SS Potassium [Moles/Vol] 4.7 mmol/L Invalid Interpretation Code 3.5 - 5.1 mmol/L AO ADM SS Protein [Mass/Vol] 6.9 G/dL Invalid Interpretation Code 6.4 - 8.2 G/dL AO ADM SS Sodium [Moles/Vol] 141 mmol/L Invalid Interpretation Code 136 - 145 mmol/L AO ADM SS Triglyceride [Mass/Vol] 84 mg/dL Invalid Interpretation Code 0 - 150 mg/dL AO ADM SS TSH Qn 1.60 m[IU]/L Invalid Interpretation Code 0.36 - 3.74 mcIU/mL AO ADM SS Urea nitrogen [Mass/Vol] 23 mg/dL Invalid Interpretation Code 7 - 18 mg/dL AO ADM SS Urea nitrogen/Creatinine [Mass ratio] 22 ratio Invalid Interpretation Code 7 - 27 ratio AO ADM SS LABORATORYOrdered By: SYSTEM SYSTEM on 02-10-2022 GFR 87 ml/min/1.73sqm Invalid Interpretation Code AO Chemistry S GFR Non- 71 ml/min/1.73sqm Invalid Interpretation Code AO Chemistry S LABORATORYOrdered By: Aliyah Umana on 10-14-2021 Albumin BCP dye [Mass/Vol] 3.9 G/dL Invalid Interpretation Code 3.4 - 4.8 G/dL AO ADM SS Albumin DL <= 20 mg/L (U) [Mass/Vol] 23396 mcg/dL Invalid Interpretation Code AO ADM SS Albumin/Creatinine DL <= 20 mg/L (U) [Mass ratio] 379 mcg/mg Invalid Interpretation Code 0 - 30 mcg/mg AO ADM SS Albumin/Globulin [Mass ratio] 1.3 {ratio} Invalid Interpretation Code 1.1 - 2.5 ratio AO ADM SS ALP [Catalytic activity/Vol] 63 U/L Invalid Interpretation Code 40 - 135 U/L AO ADM SS ALT With P-5'-P [Catalytic activity/Vol] 37 U/L Invalid Interpretation Code 16 - 63 U/L AO ADM SS AST With P-5'-P [Catalytic activity/Vol] 20 U/L Invalid Interpretation Code 10 - 40 U/L AO ADM SS Bilirubin [Mass/Vol] 1.2 mg/dL Invalid Interpretation Code 0.2 - 1.0 mg/dL AO ADM SS Calcium [Mass/Vol] 8.8 mg/dL Invalid Interpretation Code 8.4 - 10.2 mg/dL AO ADM SS Chloride [Moles/Vol] 106 mmol/L Invalid Interpretation Code 98 - 107 mmol/L AO ADM SS CO2 [Moles/Vol] 25 mmol/L Invalid Interpretation Code 23 - 31 mmol/L AO ADM SS Creatinine (U) [Mass/Vol] 102.6 mg/dL Invalid Interpretation Code 39.0 - 259.0 mg/dL AO ADM SS Creatinine [Mass/Vol] 0.87 mg/dL Invalid Interpretation Code 0.70 - 1.30 mg/dL AO ADM SS Electrolyte Balance 8.0 mEq/L Invalid Interpretation Code 4.0 - 15.0 mEq/L AO ADM SS Globulin 2.9 G/dL Invalid Interpretation Code AO ADM SS Glucose [Mass/Vol] 131 mg/dL Invalid Interpretation Code 83 - 110 mg/dL AO ADM SS HbA1c (Bld) [Mass fraction] 6.8 % Invalid Interpretation Code 4.3 - 6.4 % AO ADM SS Potassium [Moles/Vol] 4.3 mmol/L Invalid Interpretation Code 3.5 - 5.1 mmol/L AO ADM SS Protein [Mass/Vol] 6.8 G/dL Invalid Interpretation Code 6.4 - 8.2 G/dL AO ADM SS Sodium [Moles/Vol] 139 mmol/L Invalid Interpretation Code 136 - 145 mmol/L AO ADM SS TSH Qn 1.20 m[IU]/L Invalid Interpretation Code 0.36 - 3.74 mcIU/mL AO ADM SS Urea nitrogen [Mass/Vol] 12 mg/dL Invalid Interpretation Code 7 - 18 mg/dL AO ADM SS Urea nitrogen/Creatinine [Mass ratio] 14 ratio Invalid Interpretation Code 7 - 27 ratio AO ADM SS Vit. D 25-Hydroxy 58.9 ng/mL Invalid Interpretation Code AO ADM SS LABORATORYOrdered By: SYSTEM SYSTEM on 10-14-2021 GFR 105 ml/min/1.73sqm Invalid Interpretation Code AO Chemistry S GFR Non- 87 ml/min/1.73sqm Invalid Interpretation Code AO Chemistry S LABORATORYOrdered By: Javan Fisher on 04-22-2021 Albumin BCP dye [Mass/Vol] 3.4 G/dL Invalid Interpretation Code 3.4 - 4.8 G/dL AO ADM SS Albumin/Globulin [Mass ratio] 1.1 {ratio} Invalid Interpretation Code 1.1 - 2.5 ratio AO ADM SS ALP [Catalytic activity/Vol] 68 U/L Invalid Interpretation Code 40 - 135 U/L AO ADM SS ALT With P-5'-P [Catalytic activity/Vol] 41 U/L Invalid Interpretation Code 16 - 63 U/L AO ADM SS AST With P-5'-P [Catalytic activity/Vol] 17 U/L Invalid Interpretation Code 10 - 40 U/L AO ADM SS Basophil, Absolute 0.00 103/mcL Invalid Interpretation Code 0.00 - 0.19 10^3/mcL AO Auto Heme SS Basophils/100 WBC (Bld) 0.6 % Invalid Interpretation Code 0.0 - 2.5 % AO Auto Heme SS Bilirubin [Mass/Vol] 1.0 mg/dL Invalid Interpretation Code 0.2 - 1.0 mg/dL AO ADM SS Calcium [Mass/Vol] 8.6 mg/dL Invalid Interpretation Code 8.4 - 10.2 mg/dL AO ADM SS Chloride [Moles/Vol] 102 mmol/L Invalid Interpretation Code 98 - 107 mmol/L AO ADM SS Cholesterol [Mass/Vol] 134 mg/dL Invalid Interpretation Code 0 - 200 mg/dL AO ADM SS Cholesterol in HDL [Mass/Vol] 60 mg/dL Invalid Interpretation Code 40 - 60 mg/dL AO ADM SS Cholesterol in LDL [Mass/Vol] 57 mg/dL Invalid Interpretation Code 0 - 130 mg/dL AO ADM SS CO2 [Moles/Vol] 27 mmol/L Invalid Interpretation Code 23 - 31 mmol/L AO ADM SS Creatinine [Mass/Vol] 0.86 mg/dL Invalid Interpretation Code 0.70 - 1.30 mg/dL AO ADM SS Electrolyte Balance 9.0 mEq/L Invalid Interpretation Code 4.0 - 15.0 mEq/L AO ADM SS Eosinophil, Absolute 0.20 103/mcL Invalid Interpretation Code 0.00 - 0.40 10^3/mcL AO Auto Heme SS Eosinophils/100 WBC (Bld) 3.6 % Invalid Interpretation Code 0.0 - 7.0 % AO Auto Heme SS Erythrocyte distribution width (RBC) [Ratio] 12.8 % Invalid Interpretation Code 11.5 - 14.5 % AO Auto Heme SS Free T4 [Mass/Vol] 1.08 ng/dL Invalid Interpretation Code 0.76 - 1.46 ng/dL AO ADM SS Globulin 3.2 G/dL Invalid Interpretation Code AO ADM SS Glucose [Mass/Vol] 275 mg/dL Invalid Interpretation Code 83 - 110 mg/dL AO ADM SS HbA1c (Bld) [Mass fraction] 11.2 % Invalid Interpretation Code 4.3 - 6.4 % AO ADM SS Hematocrit (Bld) [Volume fraction] 39.9 % Invalid Interpretation Code 42.0 - 52.0 % AO Auto Heme SS Hemoglobin (Bld) [Mass/Vol] 13.8 G/dL Invalid Interpretation Code 14.0 - 18.0 G/dL AO Auto Heme SS Lymphocyte, Absolute 1.40 103/mcL Invalid Interpretation Code 0.77 - 3.85 10^3/mcL AO Auto Heme SS Lymphocytes/100 WBC (Bld) 21.5 % Invalid Interpretation Code 10.0 - 50.0 % AO Auto Heme SS MCH (RBC) [Entitic mass] 29.6 pg Invalid Interpretation Code 27.0 - 31.2 pg AO Auto Heme SS MCHC (RBC) [Mass/Vol] 34.6 G/dL Invalid Interpretation Code 31.8 - 35.4 G/dL AO Auto Heme SS MCV (RBC) [Entitic vol] 85.5 fL Invalid Interpretation Code 80.0 - 94.0 fL AO Auto Heme SS Monocyte, Absolute 0.70 103/mcL Invalid Interpretation Code 0.15 - 1.00 10^3/mcL AO Auto Heme SS Monocytes/100 WBC (Bld) 10.4 % Invalid Interpretation Code 1.7 - 13.0 % AO Auto Heme SS Neutrophil, Absolute 4.00 103/mcL Invalid Interpretation Code 2.85 - 6.16 10^3/mcL AO Auto Heme SS Neutrophils/100 WBC (Bld) 63.9 % Invalid Interpretation Code 37.0 - 80.0 % AO Auto Heme SS Platelet mean volume (Bld) [Entitic vol] 9.6 fL Invalid Interpretation Code 7.4 - 10.4 fL AO Auto Heme SS Platelets (Bld) [#/Vol] 219 103/mcL Invalid Interpretation Code 130 - 400 10^3/mcL AO Auto Heme SS Potassium [Moles/Vol] 4.4 mmol/L Invalid Interpretation Code 3.5 - 5.1 mmol/L AO ADM SS Protein [Mass/Vol] 6.6 G/dL Invalid Interpretation Code 6.4 - 8.2 G/dL AO ADM SS RBC (Bld) [#/Vol] 4.67 106/mcL Invalid Interpretation Code 4.04 - 6.13 10^6/mcL AO Auto Heme SS Sodium [Moles/Vol] 138 mmol/L Invalid Interpretation Code 136 - 145 mmol/L AO ADM SS Triglyceride [Mass/Vol] 87 mg/dL Invalid Interpretation Code 0 - 150 mg/dL AO ADM SS TSH Qn 1.38 m[IU]/L Invalid Interpretation Code 0.36 - 3.74 mcIU/mL AO ADM SS Urea nitrogen [Mass/Vol] 13 mg/dL Invalid Interpretation Code 7 - 18 mg/dL AO ADM SS Urea nitrogen/Creatinine [Mass ratio] 15 ratio Invalid Interpretation Code 7 - 27 ratio AO ADM SS Vit. D 25-Hydroxy 19.9 ng/mL Invalid Interpretation Code AO ADM SS WBC (Bld) [#/Vol] 6.30 103/mcL Invalid Interpretation Code 4.60 - 10.80 10^3/mcL AO Auto Heme SS LABORATORYOrdered By: SYSTEM SYSTEM on 04-22-2021 GFR 107 ml/min/1.73sqm Invalid Interpretation Code AO Chemistry S GFR Non- 88 ml/min/1.73sqm Invalid Interpretation Code AO Chemistry S LABORATORYOrdered By: Aliyah Umana on 02-04-2021 Albumin BCP dye [Mass/Vol] 3.4 G/dL Invalid Interpretation Code 3.4 - 4.8 G/dL AO ADM SS Albumin/Globulin [Mass ratio] 1.1 {ratio} Invalid Interpretation Code 1.1 - 2.5 ratio AO ADM SS ALP [Catalytic activity/Vol] 78 U/L Invalid Interpretation Code 40 - 135 U/L AO ADM SS ALT With P-5'-P [Catalytic activity/Vol] 41 U/L Invalid Interpretation Code 16 - 63 U/L AO ADM SS AST With P-5'-P [Catalytic activity/Vol] 19 U/L Invalid Interpretation Code 10 - 40 U/L AO ADM SS Bilirubin [Mass/Vol] 1.1 mg/dL Invalid Interpretation Code 0.2 - 1.0 mg/dL AO ADM SS Calcium [Mass/Vol] 8.1 mg/dL Invalid Interpretation Code 8.4 - 10.2 mg/dL AO ADM SS Chloride [Moles/Vol] 104 mmol/L Invalid Interpretation Code 98 - 107 mmol/L AO ADM SS Cholesterol [Mass/Vol] 138 mg/dL Invalid Interpretation Code 0 - 200 mg/dL AO ADM SS Cholesterol in HDL [Mass/Vol] 64 mg/dL Invalid Interpretation Code 40 - 60 mg/dL AO ADM SS Cholesterol in LDL [Mass/Vol] 56 mg/dL Invalid Interpretation Code 0 - 130 mg/dL AO ADM SS CO2 [Moles/Vol] 26 mmol/L Invalid Interpretation Code 23 - 31 mmol/L AO ADM SS Creatinine [Mass/Vol] 0.96 mg/dL Invalid Interpretation Code 0.70 - 1.30 mg/dL AO ADM SS Electrolyte Balance 10.0 mEq/L Invalid Interpretation Code AO ADM SS Globulin 3.2 G/dL Invalid Interpretation Code AO ADM SS Glucose [Mass/Vol] 208 mg/dL Invalid Interpretation Code 80 - 115 mg/dL AO ADM SS HbA1c (Bld) [Mass fraction] 9.2 % Invalid Interpretation Code 4.3 - 6.4 % AO ADM SS Potassium [Moles/Vol] 4.1 mmol/L Invalid Interpretation Code 3.5 - 5.1 mmol/L AO ADM SS Protein [Mass/Vol] 6.6 G/dL Invalid Interpretation Code 6.4 - 8.2 G/dL AO ADM SS Sodium [Moles/Vol] 140 mmol/L Invalid Interpretation Code 136 - 145 mmol/L AO ADM SS Triglyceride [Mass/Vol] 91 mg/dL Invalid Interpretation Code 0 - 150 mg/dL AO ADM SS TSH Qn 1.50 m[IU]/L Invalid Interpretation Code 0.36 - 3.74 mcIU/mL AO ADM SS Urea nitrogen [Mass/Vol] 13 mg/dL Invalid Interpretation Code 7 - 18 mg/dL AO ADM SS Urea nitrogen/Creatinine [Mass ratio] 14 ratio Invalid Interpretation Code 7 - 27 ratio AO ADM SS LABORATORYOrdered By: SYSTEM SYSTEM on 02-04-2021 GFR 94 ml/min/1.73sqm Invalid Interpretation Code AO Chemistry S GFR Non- 78 ml/min/1.73sqm Invalid Interpretation Code AO Chemistry S Vital Signs Date Time Vital Sign Value Performing Clinician Facility 12-01-2024 11:53-0400 SaO2% (BldA) [Mass fraction] 98 % [facility] Comment on above: Order Comment: Specimen Type: ARTERIAL B LOOD SPECIMENOrdering Facility: [facility] Address: [address] [place] [address] Performed By: #### [facility] ####[facility] LABCLIA [id number] [place] [address] [place] 11-24-2024 13:57-0400 Body height 177.8 cm [facility] 1 Work Phone: [facility] 11-24-2024 13:57-0400 Body mass index (BMI) [Ratio] 37.97 kg/m2 Pacc 1 Work Phone: [facility] 11-24-2024 13:57-0400 Body temperature 98.49 [degF] Pacc 1 Work Phone: [facility] 11-24-2024 13:57-0400 Body weight 120.02 kg Pacc 1 Work Phone: [facility] 11-24-2024 13:57-0400 Diastolic blood pressure 58 mm[Hg] Pacc 1 Work Phone: [facility] 11-24-2024 13:57-0400 Heart rate 73 /min Pacc 1 Work Phone: [facility] 11-24-2024 13:57-0400 Respiratory rate 16 /min Pacc 1 Work Phone: [facility] 11-24-2024 13:57-0400 SaO2% (BldA) [Mass fraction] 94 % Pacc 1 Work Phone: [facility] 11-24-2024 13:57-0400 Systolic blood pressure 122 mm[Hg] Pacc 1 Work Phone: [facility] 11-09-2024 09:01-0400 Body temperature 97.6 [degF] Dr. Bhavik Jameson MD Work Phone: [facility] 11-09-2024 09:01-0400 Heart rate 78 /min Dr. Bhavik Jameson MD Work Phone: [facility] 11-09-2024 09:01-0400 Respiratory rate 18 /min Dr. Bhavik Jameson MD Work Phone: [facility] 10-12-2024 08:44-0400 Body temperature 97.8 [degF] Dr. Bhavik Jameson MD Work Phone: [facility] 10-12-2024 08:44-0400 Diastolic blood pressure 95 mm[Hg] Dr. Bhavik dickson MD Work Phone: [facility] 10-12-2024 08:44-0400 Heart rate 84 /min Dr. Bhavik Jmaeson MD Work Phone: [facility] 10-12-2024 08:44-0400 Respiratory rate 18 /min Dr. Bhavik Jameson MD Work Phone: [facility] 10-12-2024 08:44-0400 Systolic blood pressure 195 mm[Hg] Dr. Bhavik Jameson MD Work Phone: [facility] 09-14-2024 08:16-0400 Body temperature 97.8 [degF] Dr. Bhavik Jameson MD Work Phone: [facility] 09-14-2024 08:16-0400 Diastolic blood pressure 98 mm[Hg] Dr. Bhavik dickson MD Work Phone: [facility] 09-14-2024 08:16-0400 Heart rate 83 /min Dr. Bhavik Jameson MD Work Phone: [facility] 09-14-2024 08:16-0400 Respiratory rate 16 /min Dr. Bhavik Jameson MD Work Phone: [facility] 09-14-2024 08:16-0400 Systolic blood pressure 173 mm[Hg] Dr. Bhavik Jameson MD Work Phone: [facility] 09-10-2024 09:59-0400 Body height 177.8 cm Augie Persaud MD Work Phone: [facility] 09-10-2024 09:59-0400 Body mass index (BMI) [Ratio] 34.58 kg/m2 Augie Persaud MD Work Phone: [facility] 09-10-2024 09:59-0400 Body temperature 97.39 [degF] Augie Persaud MD Work Phone: [facility] 09-10-2024 09:59-0400 Body weight 109.32 kg Augie Persaud MD Work Phone: [facility] 09-10-2024 09:59-0400 Diastolic blood pressure 68 mm[Hg] Augie Casanova Work Phone: [facility] 09-10-2024 09:59-0400 Heart rate 90 /min Augie Persaud MD Work Phone: [facility] 09-10-2024 09:59-0400 Systolic blood pressure 153 mm[Hg] Augie Persaud MD Work Phone: [facility] 08-31-2024 11:39-0400 Body height 177.[address] Bhavik Jameson MD Work Phone: [facility] 08-12-2024 20:29-0400 Diastolic Blood Pressure Non-Invasive 76 mm[Hg] KELLEY PRICEPKINS PICK UP WORKER - UPHOLSTERY INSTRUCTOR [facility] 08-12-2024 20:29-0400 Systolic Blood Pressure Non-Invasive 115 mm[Hg] KELLEY HERNANDEZ PICK UP WORKER - UPHOLSTERY INSTRUCTOR [facility] 08-10-2024 08:32-0400 Body temperature 97.4 [degF] Dr. Bhavik Jameson MD Work Phone: [facility] 08-10-2024 08:32-0400 Diastolic blood pressure 71 mm[Hg] Dr. Bhavik dickson MD Work Phone: [facility] 08-10-2024 08:32-0400 Heart rate 84 /min Dr. Bhavik Jameson MD Work Phone: [facility] 08-10-2024 08:32-0400 Respiratory rate 14 /min Dr. Bhavik Jameson MD Work Phone: [facility] 08-10-2024 08:32-0400 Systolic blood pressure 150 mm[Hg] Dr. Bhavik Jameson MD Work Phone: [facility] 07-20-2024 08:28-0400 Body temperature 97.6 [degF] Dr. Bhavik Jameson MD Work Phone: [facility] 07-20-2024 08:28-0400 Diastolic blood pressure 90 mm[Hg] Dr. Bhavik dickson MD Work Phone: [facility] 07-20-2024 08:28-0400 Heart rate 96 /min Dr. Bhavik Jameson MD Work Phone: [facility] 07-20-2024 08:28-0400 Respiratory rate 18 /min Dr. Bhavik Jameson MD Work Phone: [facility] 07-20-2024 08:28-0400 Systolic blood pressure 187 mm[Hg] Dr. Bhavik Jameson MD Work Phone: 6(305)960-354363 [address] 07-16-2024 09:49-0400 Body mass index (BMI) [Ratio] 34.1 kg/m2 Dr. Bhavik Jameson MD Work Phone: 7(770)[phone] [address] 07-16-2024 09:49-0400 Body temperature 97.6 [degF] Dr. Bhavik Jameson MD Work Phone: 8(606)[phone] [place] [address] 07-16-2024 09:49-0400 Body weight 107.[address] Bhavik Jameson MD Work Phone: 8(326)[phone] [place] [address] 07-16-2024 09:49-0400 Diastolic blood pressure 84 mm[Hg] Dr. Bhavik dickson MD Work Phone: [facility] 07-16-2024 09:49-0400 Heart rate 84 /min Dr. Bhavik Jameson MD Work Phone: [facility] 07-16-2024 09:49-0400 Respiratory rate 17 /min Dr. Bhavik Jameson MD Work Phone: [facility] 07-16-2024 09:49-0400 SaO2% (BldA) [Mass fraction] 94 % Dr. Bhavik Jameson MD Work Phone: [facility] 07-16-2024 09:49-0400 Systolic blood pressure 145 mm[Hg] Dr. Bhavik Jameson MD Work Phone: 5(015)[phone] [place] [address] 03-26-2024 11:11-0500 Body temperature 98.24 [degF] SALVADOR BOWMAN MD [facility] 03-26-2024 11:11-0500 Diastolic Blood Pressure Non-Invasive 67 mm[Hg] SALVADOR BOWMAN MD [facility] 03-26-2024 11:11-0500 Heart rate 59 /min SALVADOR BOWMAN MD [facility] 03-26-2024 11:11-0500 Respiratory rate 18 /min SALVADOR BOWMAN MD [facility] 03-26-2024 11:11-0500 Systolic Blood Pressure Non-Invasive 121 mm[Hg] SALVADOR BOWMAN MD [facility] 03-26-2024 08:24-0500 Heart rate 66 /min SALVADOR BOWMAN MD [facility] 03-26-2024 08:03-0500 Heart rate 66 /min SALVADOR BOWMAN MD [facility] 03-26-2024 06:59-0500 Blood Pressure Cuff Size SALVADOR Casanova [facility] 03-26-2024 06:59-0500 Blood Pressure Location SALVADOR BOWMAN MD [facility] 03-26-2024 06:59-0500 Blood Pressure Method SALVADOR BOWMAN MD [facility] 03-26-2024 06:59-0500 Body temperature 97.52 [degF] SALVADOR BOWMAN MD [facility] 03-26-2024 06:59-0500 Diastolic Blood Pressure Non-Invasive 71 mm[Hg] SALVADOR BOWMAN MD [facility] 03-26-2024 06:59-0500 Heart rate 67 /min SALVADOR BOWMAN MD [facility] 03-26-2024 06:59-0500 Respiratory rate 18 /min SALVADOR BOWMAN MD [facility] 03-26-2024 06:59-0500 Systolic Blood Pressure Non-Invasive 114 mm[Hg] SALVADOR BOWMAN MD [facility] 03-26-2024 06:54-0500 Respiratory rate 18 /min SALVADOR BOWMAN MD [facility] 03-26-2024 02:38-0500 Body temperature 97.34 [degF] SALVADOR BOWMAN MD [facility] 03-26-2024 02:38-0500 Diastolic Blood Pressure Non-Invasive 68 mm[Hg] SALVADOR BOWMAN MD [facility] 03-26-2024 02:38-0500 Heart rate 62 /min SALVADOR BOWMAN MD [facility] 03-26-2024 02:38-0500 Systolic Blood Pressure Non-Invasive 107 mm[Hg] SALVADOR BOWMAN MD [facility] 03-25-2024 22:41-0500 Heart rate 61 /min SALVADOR BOWMAN MD [facility] 03-25-2024 18:55-0500 Heart rate 64 /min SALVADOR BOWMAN MD [facility] 03-25-2024 18:13-0500 Heart rate 66 /min SALVADOR BOWMAN MD [facility] 03-25-2024 14:49-0500 Blood Pressure Cuff Size SALVADOR Casanova [facility] 03-25-2024 14:49-0500 Blood Pressure Location SALVADOR BOWMAN MD [facility] 03-25-2024 14:49-0500 Blood Pressure Method SALVADOR BOWMAN MD [facility] 03-25-2024 14:49-0500 Reason For Taking VItal Signs SALVADOR BOWMAN MD [facility] 03-25-2024 11:42-0500 Blood Pressure Cuff Size SALVADOR Casanova [facility] 03-25-2024 11:42-0500 Blood Pressure Location SALVADOR BOWMAN MD [facility] 03-25-2024 11:42-0500 Blood Pressure Method SALVADOR BOWMAN MD [facility] 03-25-2024 11:42-0500 Reason For Taking VItal Signs SALVADOR BOWMAN MD [facility] 03-25-2024 07:38-0500 Heart rate 72 /min SALVADOR BOWMAN MD [facility] 03-24-2024 15:04-0500 Reason For Taking VItal Signs SALVADOR BOWMAN MD [facility] 03-24-2024 05:51-0500 Body weight 114.5 kg SALVADOR BOWMAN MD [facility] 03-23-2024 06:12-0500 Body weight 115.5 kg SALVADOR BOWMAN MD [facility] 03-21-2024 18:10-0500 Mean blood pressure 79 mm[Hg] SALVADOR BOWMAN MD [facility] 03-21-2024 17:03-0500 Mean blood pressure 73 mm[Hg] SALVADOR BOWMAN MD [facility] 03-20-2024 03:24-0500 Body temperature 98.6 [degF] SALVADOR BOWMAN MD [facility] 03-18-2024 15:30-0500 Body temperature 98.06 [degF] SALVADOR BOWMAN MD [facility] 03-18-2024 12:27-0500 Body height 177.8 cm SALVADOR BOWMAN MD [facility] 03-18-2024 12:27-0500 Body weight 100.8 kg SALVADOR BOWMAN MD [facility] 03-18-2024 12:27-0500 Body weight 31.89 kg/m2 SALVADOR BOWMAN MD [facility] 02-07-2024 16:30-0500 Diastolic Blood Pressure Non-Invasive 62 mm[Hg] SALVADOR BOWMAN MD [address] [place] [address] 02-07-2024 16:30-0500 Heart rate 77 /min SALVADOR BOWMAN MD [address] [place] [address] 02-07-2024 16:30-0500 Mean blood pressure 85 mm[Hg] SALVADOR BOWMAN MD [address] [place] [address] 02-07-2024 16:30-0500 Systolic Blood Pressure Non-Invasive 136 mm[Hg] SALVADOR BOWMAN MD [facility] 02-07-2024 15:30-0500 Body temperature 98.24 [degF] SALVADOR BOWMAN MD [facility] 02-07-2024 15:30-0500 Diastolic Blood Pressure Non-Invasive 51 mm[Hg] SALVADOR BOWMAN MD [facility] 02-07-2024 15:30-0500 Heart rate 72 /min SALVADOR BOWMAN MD [facility] 02-07-2024 15:30-0500 Mean blood pressure 73 mm[Hg] SALVADOR BOWMAN MD [facility] 02-07-2024 15:30-0500 Reason For Taking VItal Signs SALVADOR BOWMAN MD [facility] 02-07-2024 15:30-0500 Respiratory rate 25 /min SALVADOR BOWMAN MD [facility] 02-07-2024 15:30-0500 Systolic Blood Pressure Non-Invasive 136 mm[Hg] SALVADOR BOWMAN MD [facility] 02-07-2024 15:00-0500 Diastolic Blood Pressure Non-Invasive 49 mm[Hg] SALVADOR BOWMAN MD [facility] 02-07-2024 15:00-0500 Heart rate 73 /min SALVADOR BOWMAN MD [facility] 02-07-2024 15:00-0500 Mean blood pressure 72 mm[Hg] SALVADOR BOWMAN MD [address] [place] [address] 02-07-2024 15:00-0500 systolic 141 mm[Hg] SALVADOR BOWMAN MD [address] [place] [address] 02-07-2024 15:00-0500 Systolic Blood Pressure Non-Invasive 141 mm[Hg] SALVADOR BOWMAN MD [facility] 02-07-2024 14:00-0500 Respiratory rate 21 /min SALVADOR BOWMAN MD [facility] 02-07-2024 10:30-0500 Heart rate 61 /min SALVADOR BOWMAN MD [facility] 02-07-2024 08:00-0500 Body temperature 98.6 [degF] SALVADOR BOWMAN MD [facility] 02-07-2024 06:45-0500 Heart rate 77 /min SALVADOR BOWMAN MD [facility] 02-07-2024 02:35-0500 Heart rate 78 /min SALVADOR BOWMAN MD [facility] 02-06-2024 16:18-0500 Blood Pressure Method SALVADOR BOWMAN MD [facility] 02-06-2024 08:02-0500 Heart rate 99 /min SALVADOR BOWMAN MD [facility] 02-06-2024 04:40-0500 SaO2% (BldA) [Mass fraction] 99.5 % SALVADOR BOWMAN MD [facility] 02-06-2024 00:28-0500 Heart rate 88 /min SALVADOR BOWMAN MD [facility] 02-05-2024 15:37-0500 Heart rate 84 /min SALVADOR BOWMAN MD [facility] 02-04-2024 23:56-0500 Body temperature 99.5 [degF] SALVADOR BOWMAN MD [facility] 02-04-2024 19:04-0500 Body temperature 99.32 [degF] SALVADOR BOWMAN MD [facility] 02-04-2024 15:30-0500 Body temperature 98.96 [degF] SALVADOR BOWMAN MD [facility] 02-04-2024 12:20-0500 Respiratory Rate - Anes 0 br/min SALVADOR BOWMAN MD [facility] 02-04-2024 12:00-0500 Respiratory Rate - Anes 13 br/min SALVADOR BOWMAN MD [facility] 02-04-2024 11:55-0500 Respiratory Rate - Anes 12 br/min SALVADOR BOWMAN MD [facility] 02-03-2024 11:33-0500 SaO2% (BldA) [Mass fraction] 99.0 % SALVADOR BOWMAN MD [facility] 01-30-2024 17:28-0400 SaO2% (BldA) [Mass fraction] 88.9 % SALVADOR BOWMAN MD [facility] 01-30-2024 03:33-0400 SaO2% (BldA) [Mass fraction] 93.6 % SALVADOR BOWMAN MD [facility] 01-28-2024 13:25-0400 Body temperature 101.21 [degF] SALVADOR BOWMAN MD [facility] 01-28-2024 13:20-0400 Body temperature 101.23 [degF] SALVADOR BOWMAN MD [facility] 01-28-2024 13:15-0400 Body temperature 101.26 [degF] SALVADOR BOWMAN MD [facility] 01-27-2024 01:16-0400 Blood Pressure Location SALVADOR BOWMAN MD [facility] 01-27-2024 01:16-0400 Blood Pressure Method SALVADOR BOWMAN MD [facility] 01-27-2024 00:15-0400 Diastolic blood pressure 78 mm[Hg] SALVADOR Casanova [facility] 01-27-2024 00:15-0400 Mean blood pressure 79 mm[Hg] SALVADOR BOWMAN MD [facility] 01-27-2024 00:15-0400 Systolic blood pressure 82 mm[Hg] SALVADOR BOWMAN MD [facility] 01-26-2024 23:55-0400 Blood Pressure Location SALVADOR BOWMAN MD [facility] 01-26-2024 23:26-0400 Diastolic blood pressure 76 mm[Hg] SALVADOR Casanova [facility] 01-26-2024 23:26-0400 Mean blood pressure 84 mm[Hg] SALVADOR BOWMAN MD [facility] 01-26-2024 23:26-0400 Systolic blood pressure 98 mm[Hg] SALVADOR BOWMAN MD [facility] 01-26-2024 23:00-0400 Diastolic blood pressure 60 mm[Hg] SALVADOR Casanova [facility] 01-26-2024 23:00-0400 Mean blood pressure 78 mm[Hg] SALVADOR BOWMAN MD [facility] 01-26-2024 23:00-0400 Systolic blood pressure 111 mm[Hg] SALVADOR BOWMAN MD [facility] 01-23-2024 11:58-0400 Body height 177.8 cm SALVADOR BOWMAN MD [facility] 01-23-2024 11:58-0400 Body weight 127.1 kg SALVADOR BOWMAN MD [facility] 01-23-2024 11:58-0400 Body weight 40.21 kg/m2 SALVADOR BOWMAN MD [facility] 01-22-2024 02:34-0400 SaO2% (BldA) [Mass fraction] 86.7 % SALVADOR BOWMAN MD [facility] 01-21-2024 13:09-0400 Body height 177.8 cm SALVADOR BOWMAN MD [facility] 01-21-2024 13:09-0400 Body weight 127.1 kg SALVADOR BOWMAN MD [facility] 01-21-2024 11:10-0400 Body temperature 97.7 [degF] SALVADOR BOWMAN MD [facility] 01-21-2024 11:10-0400 Diastolic Blood Pressure Non-Invasive 64 mm[Hg] SALVADOR BOWMAN MD [facility] 01-21-2024 11:10-0400 Heart rate 112 /min SALVADOR BOWMAN MD [facility] 01-21-2024 11:10-0400 Reason For Taking VItal Signs SALVADOR BOWMAN MD [facility] 01-21-2024 11:10-0400 Respiratory rate 32 /min SALVADOR BOWMAN MD [facility] 01-21-2024 11:10-0400 Systolic Blood Pressure Non-Invasive 104 mm[Hg] SALVADOR BOWMAN MD [facility] 01-21-2024 10:03-0400 Diastolic Blood Pressure Non-Invasive 55 mm[Hg] SALVADOR BOWMAN MD [facility] 01-21-2024 10:03-0400 Heart rate 115 /min SALVADOR BOWMAN MD [facility] 01-21-2024 10:03-0400 Respiratory rate 36 /min SALVADOR BOWMAN MD [facility] 01-21-2024 10:03-0400 Systolic Blood Pressure Non-Invasive 110 mm[Hg] SALVADOR BOWMAN MD [facility] 01-21-2024 09:11-0400 Body temperature 99.86 [degF] SALVADOR BOWMAN MD [facility] 01-21-2024 09:11-0400 Diastolic Blood Pressure Non-Invasive 72 mm[Hg] SALVADOR BOWMAN MD [facility] 01-21-2024 09:11-0400 Heart rate 111 /min SALVADOR BOWMAN MD [facility] 01-21-2024 09:11-0400 Reason For Taking VItal Signs SALVADOR BOWMAN MD [facility] 01-21-2024 09:11-0400 Respiratory rate 20 /min SALVADOR BOWMAN MD [facility] 01-21-2024 09:11-0400 Systolic Blood Pressure Non-Invasive 120 mm[Hg] SALVADOR BOWMAN MD [facility] 01-21-2024 08:11-0400 Heart rate 106 /min SALVADOR BOWMAN MD [facility] 01-21-2024 06:23-0400 Body temperature 97.52 [degF] SALVADOR BOWMAN MD [facility] 01-21-2024 06:23-0400 Heart rate 106 /min SALVADOR BOWMAN MD [facility] 01-21-2024 06:23-0400 Reason For Taking VItal Signs SALVADOR BOWMAN MD [facility] 01-21-2024 04:09-0400 Heart rate 103 /min SALVADOR BOWMAN MD [facility] 01-21-2024 00:35-0400 Heart rate 96 /min SALVADOR BOWMAN MD [facility] 01-20-2024 18:32-0400 Blood Pressure Cuff Size SALVADOR Casanova [facility] 01-20-2024 18:32-0400 Blood Pressure Location SALVADOR BOWMAN MD [facility] 01-20-2024 18:32-0400 Blood Pressure Method SALVADOR BOWMAN MD [facility] 01-20-2024 16:23-0400 Body height 177.8 cm SALVADOR BOWMAN MD [facility] 01-20-2024 16:23-0400 Body weight 122 kg SALVADOR BOWMAN MD [facility] 01-20-2024 16:23-0400 Body weight 38.59 kg/m2 SALVADOR BOWMAN MD [facility] 01-20-2024 12:46-0400 Body temperature 97.7 [degF] SALVADOR BOWMAN MD [facility] 01-20-2024 12:10-0400 Respiratory Rate - Anes 16 br/min SALVADOR OBWMAN MD [facility] 01-20-2024 12:05-0400 Respiratory Rate - Anes 29 br/min SALVADOR BOWMAN MD [facility] 01-20-2024 12:00-0400 Respiratory Rate - Anes 13 br/min SALVADOR BOWMAN MD [facility] 01-20-2024 07:50-0400 Body height 177.8 cm SALVADOR BOWMAN MD [facility] 01-20-2024 07:50-0400 Body weight 122 kg SALVADOR BOWMAN MD [facility] 01-20-2024 07:50-0400 Body weight 38.59 kg/m2 SALVADOR BOWMAN MD [facility] 01-20-2024 07:32-0400 Body height 177.8 cm SALVADOR BOWMAN MD [facility] 01-20-2024 07:32-0400 Body temperature 97.16 [degF] SALVADOR BOWMAN MD [facility] 01-20-2024 07:32-0400 Body weight 122 kg SALVADOR BOWMAN MD [facility] 01-20-2024 07:32-0400 Heart rate 76 /min SALVADOR BOWMAN MD [facility] 01-17-2024 08:05-0400 Blood Pressure Location SALVADOR BOWMAN MD [facility] 01-17-2024 08:05-0400 Blood Pressure Method SALVADOR BOWMAN MD [facility] 01-17-2024 08:05-0400 Body height 177.8 cm SALVADOR BOWMAN MD [facility] 01-17-2024 08:05-0400 Body weight 122 kg SALVADOR BOWMAN MD [facility] 01-17-2024 08:05-0400 Body weight 38.59 kg/m2 SALVADOR BOWMAN MD [facility] 01-17-2024 08:05-0400 Diastolic Blood Pressure Non-Invasive 82 mm[Hg] SALVADOR BOWMAN MD [facility] 01-17-2024 08:05-0400 Heart rate 68 /min SALVADOR BOWMAN MD [facility] 01-17-2024 08:05-0400 Respiratory rate 18 /min SALVADOR BOWMAN MD [facility] 01-17-2024 08:05-0400 Systolic Blood Pressure Non-Invasive 189 mm[Hg] SALVADOR BOWMAN MD [facility] 10-13-2022 13:04-0400 Respiratory rate 17 /min [facility] 10-13-2022 11:27-0400 Body height 177.8 cm [facility] 10-13-2022 11:27-0400 Body mass index (BMI) [Ratio] 38.3 kg/m2 [facility] 10-13-2022 11:27-0400 Body temperature 95.8 [degF] [facility] 10-13-2022 11:27-0400 Body weight 121.3 kg [facility] 10-13-2022 11:27-0400 Diastolic blood pressure 72 mm[Hg] [facility] 10-13-2022 11:27-0400 Heart rate 70 /min [facility] 10-13-2022 11:27-0400 SaO2% (BldA) [Mass fraction] 95 % [facility] 10-13-2022 11:27-0400 Systolic blood pressure 169 mm[Hg] [facility] Encounters Encounter Date Encounter Type Care Provider Facility Start: 12-01-2024 Encounter for other preprocedural examination [facility] Start: 12-01-2024 End: 12-05-2024 Evaluation and management of inpatient [facility] Facility:[facility] Start: 11-25-2024 End: 12-03-2024 Telephone encounter Eugenia Ferreira APRN.CNP Work Phone: Pre Anesthesia Comment on above: Preparations For Jeremy kavon Start: 11-24-2024 End: 11-24-2024 [place] [address] Work Phone: Pre Anesthesia Comment on above: Hyperlipidemia, unsp ecified hyperlipidemia type (Primary Dx); Essential hypertension; ALICIA on CPAP; Gastrostomy present (HCC); Type 2 diabetes mellitus with other specified complication, unspecified whether buttermaker helper insulin use (HCC); Hypothyroidism, unspecified type; Anemia, unspecified type; Major depressive disorder with single episode, remission status unspecified; Anxiety disorder, unspecified type; History of basal cell carcinoma (BCC); History of tracheostomy; IFG (impaired fasting glucose); Heart murmur; Alcohol use Start: 11-16-2024 End: 11-16-2024 Telephone encounter Eugenia Ferreira APRN.CNP Work Phone: Pre Anesthesia Start: 11-09-2024 ambulatory Efrain Hurtado Facility:[facility] Start: 11-09-2024 Non-patient / Non-visit Dr. Efrain eagle MD -[facility] Start: 11-09-2024 End: 11-26-[address] [facility] Work Phone: Start: 11-09-2024 End: 11-26-[address] Bhavik Jameson MD Work Phone: [facility] Start: 10-19-2024 End: 11-19-2024 ambulatory KELLEY HERNANDEZ PICK UP WORKER - UPHOLSTERY INSTRUCTOR Facility:[facility] Start: 10-19-2024 End: 11-19-2024 Physical therapy management KELLEY HERNANDEZ PICK UP WORKER - UPHOLSTERY INSTRUCTOR [facility] Start: 10-12-2024 Non-patient / Non-visit Dr. Efrain eagle MD -[facility] Start: 10-12-2024 End: 10-29-[address] Efrain [facility]ado [facility] Work Phone: Start: 10-12-2024 End: 10-29-[address] Bhavik Jameson MD Work Phone: -[facility]ound [facility] Start: 09-14-2024 ambulatory Efrain Hurtado Facility:[facility] Start: 09-14-2024 Non-patient / Non-visit Dr. Efrain eagle MD -[facility] Start: 09-14-2024 End: 09-28-[address] Bhavik Jameson MD Work Phone: [facility] Start: 09-14-2024 End: 09-28-[address] Efrain [facility]ado [facility] Work Phone: Start: 09-11-2024 End: 09-11-2024 ambulatory uAgie Persaud MD Work Phone: [facility] Comment on above: 12.01.24 Cure (Open Complex AWR 4 hours los 4) Start: 09-11-2024 End: 09-11-2024 Preprocedural examination done Augie Persaud MD Work Phone: [facility] Start: 09-10-2024 End: 09-10-2024 Patient encounter procedure Augie Persaud MD Work Phone: General Surgery Comment on above: Incisional hernia, w ithout obstruction or gangrene (Primary Dx) Start: 09-10-2024 End: 09-10-2024 ambulatory AUGIE PERSAUD Facility:[facility] Start: 08-31-2024 ambulatory Efrain Hurtado Facility:[facility] Start: 08-31-2024 Non-patient / Non-visit Dr. Efrain eagle MD -[facility] Start: 08-25-2024 End: 08-25-2024 Telephone encounter Spencer Reno SOLID WASTE LANDFILL TECHNICIAN Work Phone: General Surgery Comment on above: Imaging Upload Reque st Start: 08-12-2024 End: 08-12-2024 ambulatory KELLEY HERNANDEZ PICK UP WORKER - UPHOLSTERY INSTRUCTOR Facility:[facility] Start: 08-12-2024 End: 08-12-2024 Patient encounter procedure KELLEY HERNANDEZ PICK UP WORKER - UPHOLSTERY INSTRUCTOR [facility] Start: 08-10-2024 Non-patient / Non-visit Dr. Efrain eagle MD -[facility] Start: 08-10-2024 End: 08-29-[address] Efrain [facility]ado [facility] Work Phone: Start: 08-10-2024 End: 08-29-[address] Bhavik Jameson MD Work Phone: [facility] Work Phone: Start: 07-20-2024 ambulatory Nga Canela BIODIESEL PRODUCTION TECHNICIAN Faci lity:[facility] Start: 07-20-2024 Non-patient / Non-visit Dr. Efarin eagle MD -[facility] Start: 07-20-2024 End: 07-29-2024 ambulatory Kelley Hernandez NP Facility:[facility] Start: 07-20-2024 End: 07-29-2024 Discharged Recurring Nga Canela NP-C -[facility] Work Phone: Start: 07-16-2024 End: 07-16-[address] Yordy Renteria MD -[facility] Work Phone: Start: 07-16-2024 End: 07-16-2024 ambulatory Efrain Hurtado Facility:[facility] Start: 07-13-2024 ambulatory Nga Canela NP Faci lity:[facility] Start: 07-13-2024 Non-patient / Non-visit Dr. Efrain eagle MD -[facility] Start: 07-08-2024 Non-patient / Non-visit Nga reese BIODIESEL PRODUCTION TECHNICIAN-C -[facility] Start: 06-18-2024 End: 06-18-2024 Patient encounter procedure Patty Sanders BIODIESEL PRODUCTION TECHNICIAN-C -[facility] Work Phone: Start: 06-18-2024 End: 06-18-2024 ambulatory Bhavik Jameson Facility:[facility] Start: 04-18-2024 End: 04-19-2024 Emergency department patient visit Bhavik Jameson Facility:[facility] Start: 04-17-2024 ambulatory Bhavik Jameson OLS Facili ty:[facility] Start: 03-18-2024 End: 03-26-2024 Evaluation and management of inpatient SALVADOR BOWMAN MD [facility] Start: 03-16-2024 ambulatory Kelley Hernandez BIODIESEL PRODUCTION TECHNICIAN Facility:[facility] Start: 03-11-2024 ambulatory Kelley Hernandez BIODIESEL PRODUCTION TECHNICIAN Facility:[facility] Start: 03-09-2024 ambulatory Kelley Hernandez BIODIESEL PRODUCTION TECHNICIAN Facility:[facility] Start: 02-25-2024 End: 02-25-2024 ambulatory SALVADOR BOWMAN MD Facility:[facility] Start: 02-07-2024 End: 03-05-2024 ambulatory NATALIYA HU MD Facility:[facility] Start: 01-21-2024 End: 02-07-2024 Evaluation and management of inpatient SALVADOR BOWMAN MD [facility] Start: 01-20-2024 End: 01-21-2024 ambulatory KELLEY D MARY PICK UP WORKER - UPHOLSTERY INSTRUCTOR Facility:[facility] Start: 01-20-2024 End: 01-21-2024 Observation SALVADOR BOWMAN MD [facility] Start: 01-17-2024 End: 01-17-2024 Admission to establishment SALVADOR BOWMAN MD [facility] Start: 01-17-2024 End: 01-17-2024 ambulatory KELLEY Casanova MARY PICK UP WORKER - UPHOLSTERY INSTRUCTOR Facility:[facility] Start: 12-27-2023 End: 12-27-2023 ambulatory KELLEY Casanova MARY PICK UP WORKER - UPHOLSTERY INSTRUCTOR Facility:[facility] Start: 12-27-2023 End: 12-27-2023 Patient encounter procedure KELLEY PRICEPKINS PICK UP WORKER - UPHOLSTERY INSTRUCTOR [facility] Start: 06-01-2023 End: 06-02-2023 ambulatory KELLEY Casanova MARY PICK UP WORKER - UPHOLSTERY INSTRUCTOR Facility:[facility] Start: 06-01-2023 End: 06-01-2023 Patient encounter procedure KELLEY Casanova MARY PICK UP WORKER - UPHOLSTERY INSTRUCTOR [facility] Start: 12-08-2022 End: 12-09-2022 ambulatory KELLEY Casanova MARY PICK UP WORKER - UPHOLSTERY INSTRUCTOR Facility:[facility] Start: 12-08-2022 End: 12-08-2022 Patient encounter procedure KELLEY PRICEPKINS PICK UP WORKER - UPHOLSTERY INSTRUCTOR [facility] Start: 10-13-2022 End: 10-13-2022 Emergency department patient visit [facility] Work Phone: Start: 07-14-2022 End: 07-15-2022 ambulatory LEV HOPE MD Facility:[facility] Start: 07-14-2022 End: 07-14-2022 Patient encounter procedure LEV HOPE MD [facility] Start: 05-26-2022 End: 05-26-2022 Patient encounter procedure KELLEY HERNANDEZ PICK UP WORKER - UPHOLSTERY INSTRUCTOR [facility] Start: 02-10-2022 End: 02-10-2022 Patient encounter procedure LEV HOPE MD [facility] Start: 10-14-2021 End: 10-14-2021 Patient encounter procedure LEV HOPE MD [facility] Start: 04-22-2021 End: 04-22-2021 Patient encounter procedure KELLEY HERNANDEZ PICK UP WORKER - UPHOLSTERY INSTRUCTOR [facility] Start: 02-11-2021 End: 02-11-[address] REGINA HONG DO [facility] Start: 02-04-2021 End: 02-04-2021 Patient encounter procedure LEV HOPE MD [facility] Procedures Date Procedure Procedure Detail Performing Clinician Start: 11-24-2024 Antibody screen AUGIE PERSAUD Comment on above: Order Comment: Specimen Type: BLOOD SPEC IMEN Ordering Facility: [facility] Address: [address] [place] [address] Performed By: #### 1 [id number], [id number], [id number] #### [facility] CLIA [id number] [address] [place] [address] [place] Start: 11-24-2024 H/O: tracheostomy History of tracheostomy [facility] [place] [facility] Work Phone: Start: 07-13-2024 Computed tomography of abdomen and pelvis with contrast Dr. Bhavik Jameson MD Work Phone: Start: 02-25-2024 Percutaneous endoscopic gastrostomy SALVADOR BOWMAN MD Comment on above: Esophagogastroduodenoscopy with percutan eous endoscopic gastrostomy tube placement Start: 02-04-2024 Trachelectomy cervicectomy amp cervix spx SALVADOR BOWMAN MD Comment on above: PERCUTANEOUS TRACHEOSTOMY Start: 01-28-2024 Abdominal wall procedure SALVADOR Casanova Comment on above: REMOVAL OF ABTHERA WOUND VAC, ABDOMINAL EXPLORATION, CLOSURE OF ABDOMINAL WALL with endotracheal tube with endotracheal tube Start: 01-24-2024 Cholecystectomy SALVADOR BOWMAN MD Comment on above: CHOLECYSTECTOMY Start: 01-24-2024 Laparotomy SALVADOR BOWMAN MD Comment on above: Abdominal Laparotomy, EXPLORATORY LAPARO ENRIQUE WITH APTHORA PLACEMENT. CHOLECYSTECTOMY. OP EGD with Anesthesia, ESAGHAGOGASTRODUODENOSCOPY WITH ANESTHESIA Start: 01-21-2024 Laparotomy SALVADOR BOWMAN MD Comment on above: ROBOTIC ASSISTED DIAGNOSTIC LAPAROSCOPY EXPLORATORY LAPAROTOMY; ABDOMINAL WASHOUT, EXTRACTION OF ABDOMINAL WALL MESH; DEBRIDEMENT OF ABDOMINAL WALL; PLACEMENT OF ABTHERA OPEN ABDOMINAL WOUND VAC. Start: 01-20-2024 Hernia repair SALVADOR BOWMAN MD Comment on above: ROBOTIC ASSISTED UMBILICAL HERNIA PREPER ITONEAL REPAIR WITH MESH Start: 10-13-2022 Plain x-ray of hand Start: 09-29-2008 Colonoscopy LEV HOPE MD Herniated structure (morphologic abnormality) LEV HOPE MD Surgery (qualifier value) RADHA HOPE MD Comment on above: Right hand Achilles tendon Plan of Treatment Date Care Activity Detail Author Start: 10-13-2032 Urine microalbumin profile [facility] Start: 2026 RSV Vaccine (1 - 1-d ose 75+ series) RSV Vaccine (1 - 1-dose 75+ series) [facility] Start: 02-24-2025 Hemoglobin A1c measurement HbA1C [facility] Start: 12-01-2024 End: 12-01-2024 Admission to same day surgery center 12/01/2024 7:30 AM EDT - 12/01/2024 11:45 AM EDT Surgery Admitting [address] [place] [address] Augie Persaud MD [address] [place] [address] HERNIORRHAPHY INCISIONAL ABDOMINAL RECURRENT REDUCIBLE GREATER THAN 10cm Admitting Comment on above: HERNIORRHAPHY INCISI ONAL ABDOMINAL RECURRENT REDUCIBLE GREATER THAN 10cm Start: 12-01-2024 End: 12-01-2024 HERNIORRHAPHY INCISIONAL ABDOMINAL RECURRENT REDUCIBLE GREATER THAN 10cm HERNIORRHAPHY INCISIONAL ABDOMINAL RECURRENT REDUCIBLE GREATER THAN 10cm Preoperative examination Incisional hernia, without obstruction or gangrene 12/01/2024 7:30 AM EDT [facility] Start: 12-01-2024 Subsequent hospital visit by physician 12/01/2024 7:30 AM EDT Hospital Encounter Admitting [address] [place] [address] Augie Persaud MD [address] [place] [address] Preoperative examination [Z01.818], Incisional hernia, without obstruction or gangrene [K43.2] Admitting Comment on above: Preoperative examina tion [Z01.818], Incisional hernia, without obstruction or gangrene [K43.2] Start: 11-30-2024 Influenza vaccination Influenza Vacc ine (#1) [facility] Start: 11-24-2024 End: 11-24-2024 Anesthesia consultation 11/24/2024 2:00 PM EDT PAT Pre Anesthesia [address] [place], [place] [id number] 1, Pacc [address] [place], [place] [id number] 12/01/24 Herniorrhaphy @ Main Pre Anesthesia Comment on above: 12/01/24 Herniorrhaphy @ Main Start: 11-24-2024 End: 02-23-2025 Hemoglobin A1c in Blood [facility] Work Phone: Comment on above: Expected: 11/24/2024 , Expires: 02/23/2025 Start: 11-02-2024 End: 02-14-2025 aPTT in Platelet poor plasma by Coagulation assay ACTIVATED PARTIAL THROMBOPLASTIN TIME Lab Routine Preoperative examination Incisional hernia, without obstruction or gangrene Abnormal coagulation profile Expected: 11/02/2024, Expires: 02/14/2025 [facility] Comment on above: Expected: 11/02/2024 , Expires: 02/14/2025 Start: 11-02-2024 End: 02-14-2025 CBC W Auto Differential panel - Blood COMPLETE BLOOD COUNT AND DIFFERENTIAL Lab Routine Preoperative examination Incisional hernia, without obstruction or gangrene Expected: 11/02/2024, Expires: 02/14/2025 [facility] Comment on above: Expected: 11/02/2024 , Expires: 02/14/2025 Start: 11-02-2024 End: 02-14-2025 Comprehensive metabolic 2000 panel - Serum or Plasma COMPREHENSIVE METABOLIC PANEL Lab Routine Preoperative examination Incisional hernia, without obstruction or gangrene Expected: 11/02/2024, Expires: 02/14/2025 [facility] Comment on above: Expected: 11/02/2024 , Expires: 02/14/2025 Start: 11-02-2024 End: 02-14-2025 PT panel - Platelet poor plasma by Coagulation assay PROTHROMBIN TIME Lab Routine Preoperative examination Incisional hernia, without obstruction or gangrene Abnormal results of liver function studies Expected: 11/02/2024, Expires: 02/14/2025 [facility] Comment on above: Expected: 11/02/2024 , Expires: 02/14/2025 Start: 11-02-2024 End: 02-14-2025 TYPE AND SCREEN,30 DAY TYPE AND SCREEN,30 DAY Blood Bank Routine Preoperative examination Incisional hernia, without obstruction or gangrene Expected: 11/02/2024, Expires: 02/14/2025 [facility] Comment on above: Expected: 11/02/2024 , Expires: 02/14/2025 Start: 09-10-2024 End: 09-10-2024 Patient encounter procedure 09/10/2024 10:00 AM EDT Office Visit General Surgery [address] [address] Augie Persaud MD [address] [place] [address] Complex Hernia; Ref scanned in from external Dr for Dr. Tevin Murry but he's retired General Surgery Comment on above: Complex Hernia; Ref scanned in from external Dr for Dr. Tevin Murry but he's retired Start: 07-16-2024 Patient referral [facility] Work Phone: Start: 07-04-2024 Covid-19 Vaccine ( season) Covid-19 Vaccine () [facility] Start: 04-01-2024 Advance Directive Discussion Advance Directive Discussion [facility] Start: 12-01-2023 Covid-19 Vaccine ( season) Covid-19 Vaccine ( season) [facility] Start: 11-29-2022 Screening for malign ant neoplasm of colon [facility] Start: 07-12-2022 Pneumococcal Vaccine : 50+ (3 of 3 - PCV20 or PCV21) Pneumococcal Vaccine: 50+ (3 of 3 - PCV20 or PCV21) [facility] Start: 04-01-2016 Medicare Annual Wellness Visit Medicare Annual Wellness Visit [facility] Start: 03-17-2016 Shingrix Vaccine (2 of 3) Shingrix Vaccine (2 of 3) [facility] Start: 1996 Diabetes Screening Diabetes Screenin g [facility] Start: 1996 Screening for malign ant neoplasm of colon [facility] Start: 1986 Lipid panel Lipid Screening [facility] Start: 1969 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 Disease Visit Annual PCP Team Chronic Disease Visit [facility] Start: 1969 Anxiety Screening Anxiety Screening [facility] Start: 1969 Depression Screening Depression Scre ening [facility] Start: 1969 Hepatitis B surface antibody level LDL Cholesterol [facility] Start: 1969 Hepatitis C screening Hepatitis C Sc carroll [facility] Start: 1961 Diabetic foot examination Diabetic Foot Exam [facility] Start: 1961 Glaucoma screening Dilated Retinal E xam [facility] Start: 1961 Hepatitis B screening Urine Al bumin:Creatinine Ratio [facility] Start: 1956 Hemoglobin A1c measurement HbA1C [facility] Start: 1951 Abdominal aortic aneurysm screening Abdominal Aortic Aneurysm Screening [facility] End: 09-11-2025 ECG COMPLETE ECG COMPLETE ECG Routine Preoperative examination Incisional hernia, without obstruction or gangrene 1 Occurrences starting 09/11/2024 until 09/11/2025 [facility] Comment on above: 1 Occurrences starti ng 09/11/2024 until 09/11/2025 Patient Education ED Laceration Extremity [facility] Work Phone: Patient referral [facility] Work Phone: REFER FOR ADMIT INTERVIEW REFER FOR ADMIT INTERVIEW Procedures Routine Preoperative examination Incisional hernia, without obstruction or gangrene Ordered: 09/11/2024 [facility] Work Phone: Comment on above: Ordered: 09/11/2024 Immunizations Immunization Date Immunization Notes Care Provider [facility] 01-04-2024 RSV vaccine, preF A-preF B, recombinant SALVADOR BOWMAN MD [facility] 01-04-2024 SARS-CoV-2 (COVID-19 ) [id number] SALVADOR BOWMAN MD [facility] 12-31-2023 influenza, high dose seasonal, preservative-free; Translations: [Fluad PF Prefilled Syringe ] SALVADOR BOWMAN MD [facility] 12-31-2023 influenza virus vaccine, unspecified formulation Eugenia Ferreira APRN.CNP Work Phone: [facility] 12-29-2022 influenza virus vaccine, unspecified formulation SALVADOR BOWMAN MD [facility] 10-13-2022 tetanus toxoid, redu dulce diphtheria toxoid, and acellular pertussis vaccine, adsorbed [facility] 03-09-2022 Influenza, high dose seasonal Dr. 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 [facility] [employer] 06-09-2020 SARS-CoV-2 (COVID-19 ) Ad26 vaccine, recombinant LEV HOPE MD [facility] Comment on above: Result Comment: 2020: [id number] 12-21-2019 influenza, injectabl e, quadrivalent, preservative free; Translations: [Fluarix PF Quadrivalent ] LEV HOPE MD [facility] 11-30-2017 influenza virus vaccine, unspecified formulation LEV HOPE MD [facility] 07-12-2017 pneumococcal conjuga te vaccine, 13 valent LEV HOPE MD [facility] 01-07-2017 influenza virus vaccine, unspecified formulation LEV HOPE MD [facility] 01-21-2016 zoster vaccine, live LEV HOPE MD [facility] 12-22-2015 influenza virus vaccine, unspecified formulation LEV HOPE MD [facility] 12-22-2015 pneumococcal polysaccharide vaccine, 23 valent LEV HOPE MD [facility] 12-23-2014 influenza virus vaccine, unspecified formulation LEV HOPE MD [facility] 06-07-2014 influenza virus vaccine, unspecified formulation LEV HOPE MD [facility] Payers Date Payer Category Payer Self-pay [id number] 2023 Unknown XX 2022 Unknown [id number] 2019 Private Health Insurance [id number] 2019 Unknown [id number] 2016 Medicare [id number] 2016 Medicare [id number] 1950 Unknown [id number] 2.16.8 40.1.067098.3.579.2.627 1950 Unknown [id number] 2.16.8 40.1.809159.3.579.2.627 1950 Unknown [id number] 2.16.8 40.1.797891.3.579.2.627 1951 Unknown [id number] 2.16.8 40.1.463081.3.579.2.627 1951 Unknown [id number] 2.16.8 40.1.745153.3.579.2.627 1951 Unknown [id number] 2.16.8 40.1.401452.3.579.2.7 1950 Unknown [id number] 2.16.8 40.1.159353.3.579.2.627 1950 Unknown [id number] 2.16.8 40.1.391379.3.579.2.62 1951 Unknown [id number] 2.16. 840.1.292554.3.579.2.627 1950 Unknown [id number] 2.16. 840.1.757202.3.579.2.627 1950 Unknown [id number] 2.16.8 40.1.183394.3.579.2.627 Unknown [id number] 2.16.8 40.1.872067.3.579.2.627 Unknown [id number] 2.16.8 40.1.849278.3.579.2.462 Unknown [id number] 2.16.8 40.1.857272.3.579.2.462 Unknown [id number] 2.16.8 40.1.021658.3.579.2.462 Unknown [id number] 2.16.8 40.1.582133.3.579.2.462 Unknown [id number] 2.16.8 40.1.086217.3.579.2.462 Unknown [id number] 2.16.8 40.1.191803.3.579.2.462 Unknown [id number] 2.16.8 40.1.061375.3.579.2.462 Unknown [id number] 2.16.8 40.1.663413.3.579.2.462 Unknown [id number] 2.16.8 40.1.243099.3.579.2.462 Unknown [id number] 2.16.8 40.1.939070.3.579.2.462 Unknown [id number] 2.16.8 40.1.917393.3.579.2.462 Unknown [id number] 2.16.8 40.1.663229.3.579.2.462 Unknown [id number] 2.16.8 40.1.651281.3.579.2.462 Unknown [id number] 2.16.8 40.1.744226.3.579.2.462 Unknown [id number] 2.16.8 40.1.133777.3.579.2.462 Social History Date Type Detail Facility Start: 09-29-2018 End: 09-10-2024 Ex-smoker (finding) [facility] Start: 1950 Sex Assigned At Male A [facility] Start: 10-13-2022 [facility] Sexual Orientation [facility] Start: 02-24-2019 Sex Male (finding) [facility] Start: 1950 Sex assigned at Not on file [facility] Start: 09-10-2024 End: 11-16-2024 Gender identity Not on file [facility] Start: 07-08-2024 [facility] tobacco (finding) [facility] History of tobacco use Current smoker [facility] History of tobacco use Cigarette Smoker [facility] Start: 09-10-2024 Tobacco use and exposure Smokeless tobacco non-user [facility] Start: 09-10-2024 End: 11-16-2024 History of Social function [facility] Start: 05-07-2024 National Score (1-10 0), lower number is lower risk 72 [facility] Start: 08-28-2024 Gender identity Identifies as male gender (finding) [facility] Start: 08-28-2024 Sexual orientation Heterosexual (fin ding) [facility] Start: 11-24-2024 Alcoholic beverage intake Current drinker of alcohol (finding) [facility] How often to you hav e a drink containing alcohol? 4 or more times a week [facility] How many standard drinks containing alcohol do you have on a typical day? 3 or 4 [facility] How often do you hav e 6 or more drinks on 1 occasion? Less than monthly [facility] (I/We) worried wheth er (my/our) food would run out before (I/we) got money to buy more. Never true [facility] Work Phone: In the past 12 month s, was there a time when you were not able to pay the mortgage or rent on time? No [facility] Medical Equipment Procedure Code Equipment Code Equipment Origin al Text Equipment Identifier Dates Mesh Prolene Squ are Flat [id number] Surgical Knit Nonabsorbable Nonreactive - [id number] Start: 12-01-2024 Goals Date Patient Goal Desired Activity /State Personal health goal Functional Status Date Assessment Result Facility 11-24-2024 Total score [AUDIT-C] 6 11/25/19 25 2:12 PM EDT Sepideh Self LPN [facility] 08-12-2024 Functional Status Sensory Deficits None A [facility] 03-26-2024 Functional Status Identified as high risk, Fall ID band on, Bed alert on, Room check performed, High risk door magnet present [facility] 03-26-2024 Functional Status [facility] 03-26-2024 Functional Status bilateral knee high removed/off [facility] 03-26-2024 Functional Status [facility] 03-25-2024 Functional Status [facility] 03-25-2024 Functional Status Activity Haroon tance One assist [facility] 03-25-2024 Functional Status [facility] 03-25-2024 Functional Status [facility] 03-25-2024 Functional Status Done [facility] 03-25-2024 Functional Status 3pm-3am [facility] 03-24-2024 Functional Status [facility] 03-24-2024 Functional Status Antiembolism S tocking On/Re-applied bilateral knee high [facility] 03-24-2024 Functional Status [facility] 03-24-2024 Functional Status Total [facility] 03-24-2024 Functional Status Maximum assistance [facility] 03-24-2024 Functional Status [facility] 03-24-2024 Functional Status [facility] 03-23-2024 Functional Status NPO Status Maintained A [facility] 03-23-2024 Functional Status [facility] 03-23-2024 Functional Status [facility] 03-23-2024 Functional Status [facility] 03-22-2024 Functional Status [facility] 03-21-2024 Functional Status [facility] 03-21-2024 Functional Status [facility] 03-21-2024 Functional Status [facility] 03-20-2024 Functional Status [facility] 03-20-2024 Functional Status N/A [facility] 03-19-2024 Functional Status [facility] 03-19-2024 Functional Status [facility] 03-19-2024 Functional Status flight [facility] 03-19-2024 Functional Status [facility] 03-18-2024 Functional Status Sensory Deficits None A [facility] 02-07-2024 Functional Status Sequential Com pression Device right knee high applied/on [facility] 02-07-2024 Functional Status [facility] 02-07-2024 Functional Status Room check performed [facility] 02-07-2024 Functional Status bilateral knee high [facility] 02-06-2024 Functional Status [facility] 02-06-2024 Functional Status Transparent silicone dr byrd [facility] 02-06-2024 Functional Status [facility] 02-06-2024 Functional Status [facility] 02-06-2024 Functional Status bilateral knee high [facility] 02-06-2024 Functional Status [facility] 02-06-2024 Functional Status [facility] 02-06-2024 Functional Status Done [facility] 02-06-2024 Functional Status [facility] 02-06-2024 Functional Status [facility] 02-04-2024 Functional Status Patient Identi fied Identification band [facility] 02-03-2024 Functional Status [facility] 02-03-2024 Functional Status Maximum assistance [facility] 02-02-2024 Functional Status [facility] 01-29-2024 Functional Status Charting indic ates that pt. is independent at baseline [facility] 01-28-2024 Functional Status [facility] 01-25-2024 Functional Status [facility] 01-24-2024 Functional Status Bhavana [facility] 01-23-2024 Functional Status Sensory Deficits None A [facility] 01-22-2024 Functional Status Living Situati on Home independently [facility] 01-21-2024 Functional Status Nurse Julius avery q2hrs Performed Other: 7AM-1225PM [facility] 01-21-2024 Functional Status bilateral knee high removed/off [facility] 01-21-2024 Functional Status Bhavana Michel [facility] 01-21-2024 Functional Status Room check performed [facility] 01-21-2024 Functional Status Bhavana Michel [facility] 01-21-2024 Functional Status Bhavana Michel [facility] 01-20-2024 Functional Status Bhavana Michel [facility] 01-20-2024 Functional Status Bhavana Michel [facility] 01-20-2024 Functional Status Sensory Deficits None A [facility] 01-20-2024 Functional Status ice chips and sips take n [facility] 01-20-2024 Functional Status Bhavana Michel [facility] 01-17-2024 Functional Status Sensory Deficits None A [facility] Mental Status Date Assessment Result Facility 03-26-2024 Mental Status Orientation Oriented x 4 [facility] 03-25-2024 Mental Status [facility] 03-25-2024 Mental Status [facility] 03-23-2024 Mental Status [facility] 03-20-2024 Mental Status [facility] 02-07-2024 Mental Status Follows simple commands [facility] 02-07-2024 Mental Status [facility] 01-21-2024 Mental Status Orientation Oriented x 4 [facility] 01-21-2024 Mental Status [facility] 01-20-2024 Mental Status [facility] 01-20-2024 Mental Status [facility] 01-20-2024 Mental Status [facility] Clinical Notes 10-13-2022 to 12-05-2024 Telephone Encounter - Eugenia Ferreira APRN.[facility] - 11/25/2024 9:07 AM EDTTelephone Encounter - Eugenia Ferreira APRN.[facility] - 11/25/2024 9:07 AM EDTPatient Instructions Note Date & Type Note Facility 12-05-2024 Note HNO ID: [id number] Author: HIRAL RUFFIN RN Service: Care Management Author Type: Registered Nurse Type: Care Mgt Progress Note Filed: 12/05/2024 11:11 Note Text: CARE MANAGEMENT DISCHARGE NOTE SERVICE DATE: December 05, 2024 SERVICE TIME: 11:08 AM Admission Date: 12/01/2024 LOS: 4 days Discharge Arrangement Discharge Arrangement: Home with Home Health Home Care: Nursing, PT, OT Services Arranged Medical Services: Skilled Home Health Care Type: Retirement, Home Health Agency, Physical Therapy, Occupational Therapy Provider Name: Mike Redman ([facility]) Caregiver Assessment Caregiver is ready, willing and able to meet the patient's needs as recommended by the inter-professional team: Yes Name of Caregiver: Mike Redman ([facility]) Transportation Arrangements Transportation Arrangements: Car Date of Trip: 12/05/24 Destination: Home Handoff Communication: Handoff to: Other Caregiver, Primary Care Physician Primary Care Physician Name/Phone: Kelley Hernandez CNP Other Caregiver Name/Phone: Mike Redman ([facility]) Additional Information: Reviewed discharge instructions, patient discharged home with skilled home care. [facility] to provide [facility] care services. Start of care within 24-48 hrs after discharge. Family to provide transport. Discharge Information Row Name Admission (Current) from 12/01/2024 in [facility] Health Care Agency [facility]man [facility] [employer] Start of Care -- Within 24-48hrs SIGNATURE: Hiral Ruffin RN PATIENT NAME: Corinne Correa DATE: December 05, 2024 TIME: 11:[address] [facility] 12-05-2024 Note HNO ID: [id number] Author: MIGUEL BLACKWELL MD Service: General Surgery Author Type: Resident Type: Progress Notes Filed: 12/05/2024 09:18 Note Text: GENERAL SURGERY PROGRESS NOTE Corinne Correa [id number] ASSESSMENT AND PLAN Corinne Correa is a 74 year old male with PMHx f HLD, HTN, ALICIA on CPAP, T2DM, hypothyroidism, anemia, MDD, heart murmur and alcohol use who is now s/p ventral hernia repair with Dr. Persaud on 12/01/2024 -Neuro: #Acute postoperative pain - continue MMPR per MAY. 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 #MDD - no current medications. #Alcohol use -2-3 drinks per night. CIWA protocol initiated. -CV: #HTN - SBP ~ 130-150. Continue home metoprolol and amlodipine. Vitals per RNF protocol. #HLD - Continue atorvastatin -Pulm: #ALICIA - Continue CPAP qHS and with naps. SPo2 96% on 2 L NC - wean o2 as able. Encourage IS 10 breaths q1h -FEN-GI: Tolerating diet. Daily BMP - replete lytes PRN. Continue bowel regimen. MADDY x 2 removed. 1 MADDY is remaining -Renal: sCr 1.22 improved Daily BMP. -DVT Prophylaxis: Continue SQH 5000u TID. SCD's while in bed, encourage ambulation. -Endo: #T2DM - BG 170-260. Improved after Increase to SSI #2 ACHS now that eating meals. #Hypothyroidism -Continue home synthroid -Dispo: RNF - anticipate D/C today vs tomorrow with home PT/OT Plan of care discussed with Dr. Cori Blackwell MD General Surgery PGY1 After 4:00pm/weekends: [place], [id number] [place], [id number] Patient Active Hospital Problem List: Hernia Date Noted: 12/01/2024 Essential hypertension Date Noted: 03/05/2024 Hyperlipidemia Date Noted: 03/05/2024 Hypothyroidism Date Noted: 03/05/2024 Major depression, single episode Date Noted: 03/26/2024 ALICIA on CPAP Date Noted: 11/14/2024 Type 2 diabetes mellitus (HCC) Date Noted: 03/05/2024 Heart murmur Date Noted: 11/24/2024 Alcohol use Date Noted: 11/24/2024 Obesity, Class II, BMI 35-39.9 Date Noted: 12/01/2024 S/P repair of ventral hernia Date Noted: 12/02/2024 AJ (acute kidney injury) Date Noted: 12/03/2024 SUBJECTIVE: No acute events overnight Tolerating regular diet Denies N/V + flatus, +BM Pain controlled Adequate urine output OBJECTIVE: BP 148/62 Pulse 87 Temp 37.1 ?C (98.8 ?F) (Oral) Resp 16 Ht 177.8 cm (5' 10) Wt 118.4 kg (261 lb 0.4 oz) SpO2 99% BMI 37.45 kg/m? Body mass index is 37.45 kg/m?. GENERAL: Alert and oriented, no acute distress, cooperative. LUNGS: Non labored breathing on 3 L NC. ABDOMEN: Soft, appropriately tender, mildly distended. MADDY drain x1 with SS output. WOUND: Clean, dry and intact with sutures in place. Labs: CBC, Coags, BMP, Mg, Phos Recent Labs 12/04/24211112/03/24205312/03/24 0340 WBC 8.81 11.81* 11.93* HB 9.5* 10.5* 11.0* HCT 30.8* 33.5* 35.9* PLT 233 223 254 NA 137 139 139 K 4.3 4.3 4.4 CHLOR 105 106 105 CO2 21* 22 21* BUN 29* 30* 30* CREAT 1.22 1.26* 1.40* GLUC 250* 252* 179* CA 8.0* 7.9* 7.8* MG 2.2 2.1 1.9 P 2.2* 2.7 3.6 I/O past 24h: Intake/Output Summary (Last 24 hours) at 12/05/2024 0917 Last data filed at 12/05/2024 0900 Gross per 24 hour Intake 430 ml Output 1700 ml Net -1270 ml LDA: Lines, Drains, and Airways Line Duration Peripheral 12/04/24 0645 Right Hand 22 Gauge 1 day Drain Duration Drain/Tube 12/01/24 1140 [facility] Luke Barillas Left Upper Quadrant Abdomen Drain #2 3 days Drain/Tube 12/01/24 1143 [facility] Luke Barillas Left Upper Quadrant Abdomen Drain #1 3 days Drain/Tube 12/01/24 1213 [facility] Luke Barillas Right Lower Quadrant Abdomen Drain #3 3 days SURGERY/PROCEDURE: Procedure(s) and Anesthesia Type: * HERNIORRHAPHY INCISIONAL ABDOMINAL RECURRENT REDUCIBLE GREATER THAN 10cm - General [facility] 12-04-2024 Note HNO ID: [id number] Author: NABIL ROSE APRN.CNP Service: General Surgery Author Type: Nurse Practitioner Type: Progress Notes Filed: 12/04/2024 16:01 Note Text: Documentation Query Please clarify the renal status Acute Kidney Injury Please clarify the Present on Admission status for the above diagnosis Not Present on Admission This document will become part of the patient's medical record. [facility] 12-04-2024 Note HNO ID: [id number] Author: NABIL ROSE APRN.CNP Service: General Surgery Author Type: Nurse Practitioner Type: Progress Notes Filed: 12/04/2024 10:41 Note Text: GENERAL SURGERY PROGRESS NOTE Corinne Correa [id number] ASSESSMENT AND PLAN Corinne Correa is a 74 year old male with PMHx f HLD, HTN, ALICIA on CPAP, T2DM, hypothyroidism, anemia, MDD, heart murmur and alcohol use who is now s/p ventral hernia repair with Dr. Persaud on 12/01/2024 -Neuro: #Acute postoperative pain - continue MMPR per MAY. 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 #MDD - no current medications. #Alcohol use -2-3 drinks per night. CIWA protocol initiated. -CV: #HTN - SBP ~ 130-150. Continue home metoprolol and amlodipine. Vitals per [facility] protocol. #HLD - Continue atorvastatin -Pulm: #ALICIA - Continue CPAP qHS and with naps. SPo2 96% on 2 L NC - wean o2 as able. Encourage IS 10 breaths q1h -FEN-GI: Advance to CC diet this morning. Daily BMP - replete lytes PRN. D/C mIVF. Continue bowel regimen. 1 x suppository today. -Renal: sCr 1.26. Daily BMP. 20 mg IV lasix today. D/C delacruz. -DVT Prophylaxis: Continue SQH 5000u TID. SCD's while in bed, encourage ambulation. -Endo: #T2DM - BG 170-330. Increase to SSI #2 ACHS now that eating meals. Consider Endo consult if no improvement #Hypothyroidism -Continue home synthroid -Dispo: RNF - anticipate D/C tomorrow with home PT/OT Plan of care discussed with Dr. Cori Rose MSN, PICK UP WORKER-[facility] General Surgery Phone/Pager: [phone] After 4:00pm/weekends: [place], [id number] [place], [phone] 12/04/2024 Patient Active Hospital Problem List: Hernia Date Noted: 12/01/2024 Essential hypertension Date Noted: 03/05/2024 Hyperlipidemia Date Noted: 03/05/2024 Hypothyroidism Date Noted: 03/05/2024 Major depression, single episode Date Noted: 03/26/2024 ALICIA on CPAP Date Noted: 11/14/2024 Type 2 diabetes mellitus (HCC) Date Noted: 03/05/2024 Heart murmur Date Noted: 11/24/2024 Alcohol use Date Noted: 11/24/2024 Obesity, Class II, BMI 35-39.9 Date Noted: 12/01/2024 S/P repair of ventral hernia Date Noted: 12/02/2024 AJ (acute kidney injury) Date Noted: 12/03/2024 SUBJECTIVE: No acute events overnight Tolerating CLD Denies N/V + flatus - BM Pain controlled Adequate urine output OBJECTIVE: BP 154/74 Pulse 95 Temp 37.4 ?C (99.3 ?F) (Oral) Resp 22 Ht 177.8 cm (5' 10) Wt 118.4 kg (261 lb 0.4 oz) SpO2 96% BMI 37.45 kg/m? Body mass index is 37.45 kg/m?. GENERAL: Alert and oriented, no acute distress, cooperative. LUNGS: Non labored breathing on 3 L NC. ABDOMEN: Soft, appropriately tender, mildly distended. MADDY drain x 3 with SS output. WOUND: Clean, dry and intact with sutures in place. Labs: CBC, Coags, BMP, Mg, Phos Recent Labs 12/03/24205312/03/24 0340 12/02/24 2254 WBC 11.81* 11.93* 11.47* HB 10.5* 11.0* 10.8* HCT 33.5* 35.9* 33.8* PLT 223 254 231 NA 139 139 139 K 4.3 4.4 4.7 CHLOR 106 105 104 CO2 22 21* 20* BUN 30* 30* 32* CREAT 1.26* 1.40* 1.53* GLUC 252* 179* 211* CA 7.9* 7.8* 7.6* MG 2.1 1.9 1.7 P 2.7 3.6 4.2 I/O past 24h: Intake/Output Summary (Last 24 hours) at 12/04/2024 1034 Last data filed at 12/04/2024 0448 Gross per 24 hour Intake 330 ml Output 1760 ml Net -1430 ml LDA: Lines, Drains, and Airways Line Duration Peripheral 12/04/24 0645 Right Hand 22 Gauge <1 day Drain Duration Indwelling Urinary Catheter 12/01/24 0739 [facility] Coude 16 Fr 3 days Drain/Tube 12/01/24 1140 [facility] Luke Barillas Left Upper Quadrant Abdomen Drain #2 2 days Drain/Tube 12/01/24 1143 [facility] Luke Barillas Left Upper Quadrant Abdomen Drain #1 2 days Drain/Tube 12/01/24 1213 [facility] Luke Barillas Right Lower Quadrant Abdomen Drain #3 2 days SURGERY/PROCEDURE: Procedure(s) and Anesthesia Type: * HERNIORRHAPHY INCISIONAL ABDOMINAL RECURRENT REDUCIBLE GREATER THAN 10cm - General [facility] 12-03-2024 Note HNO ID: [id number] Author: HIRAL RUFFIN RN Service: Care Management Author Type: Registered Nurse Type: Care Mgt Initial Assessment Filed: 12/03/2024 11:49 Note Text: CARE MANAGEMENT: ASSESSMENT AND DISCHARGE PLAN SERVICE DATE: December 03, 2024 SERVICE TIME: The patient did not refer symptoms or activate the event markers PCP: HANS Escoto, UPHOLSTERY INSTRUCTOR Primary Contact: Extended Emergency Contact Information Primary Emergency Contact: Jessica Correa Mobile Relation: Spouse Preferred language: CAMBODIAN Water Team Leader needed? No Secondary Emergency Contact: Sheron Kuhn Address: [facility] Relation: None Admission Status: Inpatient Insurance Provider: MEDICARE A AND B Discharge Planning requested by: Per Department Practice Potential Transition Plans Home Care, Home OT/PT Advance Directives Current Advance Directive: Health Care Power of Kier Hand, Living Will In Chart: Yes Up To Date and Valid: Yes Current Living Arrangements and Support Lives with: Spouse/significant other Type of Residence: Private Residence (House) Does the patient have to climb stairs at home?: Yes, stairs outside the home, stairs within the home Support: Children, Spouse/significant other How do you manage to accomplish the following: Independent: Ambulation, Bathe/Shower, Dress, Meals/Meal Prep, Going to the bathroom, Medication Management, Transportation to appointments/community Current Services/Equipment Current Post-Acute Service(s): DME Current DME Type: Bi-level Positive Airway Pressure Discharge Planning Patient Goal(s): General wellness, Less pain, Be able to go home [place] of Choice Explained: [place] of Choice Given: Yes Level of Care Discussed: Home Care Are you interested in bedside delivery of your medications? Services not offered in H51 Discharge Planning Participant(s): Patient, Spouse/significant other Patient/Family Comments: Be well to go home Caregiver Assessment: Caregiver is ready, willing and able to meet the patient's needs as recommended by the inter-professional team: No Caregiver needed Transport at Discharge: Transportation Arrangements: Car Destination: Home Needs Prior to Discharge: Needs Prior to Discharge: Other: See Comment (Accepting [facility]; Medical clearance) Post-Acute Discharge Plan: Met with patient and family at bedside for introduction and to discuss discharge plans and needs. Anticipated discharge plan is home with [facility] per PT recommendations. Referrals sent needs accepting agency. . Upon discharge family will provide transport. SIGNATURE: Hiral Ruffin RN PATIENT NAME: Corinne Correa DATE: December 03, 2024 TIME: 11:[address] [facility] 12-03-2024 Note HNO ID: [id number] Author: ANI NASCIMENTO DO Service: General Surgery Author Type: Resident Type: Progress Notes Filed: 12/03/2024 10:22 Note Text: GENERAL SURGERY PROGRESS NOTE Name: Corinne Correa Date: December 03, 2024 DOS: 12/01/2024 POD: 2 Days Post-Op Operation: Myofascial advancement flap of the transversus abdominis (TAR), Ventral incisional Hernia Repair with mesh, Lysis of adhesions ASSESSMENT: Corinne Correa is a 74 year old male with PMHx f HLD, HTN, ALICIA on CPAP, T2DM, hypothyroidism, anemia, MDD, heart murmur and alcohol use who is now s/p ventral hernia repair with Dr. Persaud on 12/01/2024 PLAN: - Neuro/Pain Control: MMPR per MAY. CIWA protocol initiated given hx daily alcohol use - CV: Resume home metoprolol and amlodipine. Vitals per [facility] protocol. Continue atorvastatin - Pulm: Incentive spirometry. Continue CPAP qHS and with naps. - GI: CLD. Zofran PRN - Bowel Regimen: Polyethylene glycol - FEN/Renal: Delacruz. Strict IANDOs, Daily BMP - replete electrolytes PRN - Endo: BG 170-250. Increase to SSI #2 q6H while NPO. Continue home synthroid - Heme: Hgb stable - DVT ppx: SQH q8h, SCDs in bed, encourage OOB - Lines/Drains: Monitor JPx3 - Wound: Primapore dressings removed. ABDs with abdominal binder. - Dispo: RNF, consult CM for home health care Discussed with senior resident, Dr. Velazquez. To be discussed with staff. Ani Nascimento DO General Surgery, PGY-1 Hernia Surgery service (pager [phone]) 10:12 AM, 12/03/2024 Hernia Team Mickey (Raghu Grayson [place]astal[place]): [phone] [place] ([place], [place], [place]i): [phone] After 6PM + weekends: [phone] --- INTERVAL: No acute events overnight. Vital signs stable, afebrile. Pain is well controlled -flatus, -BM Nausea is improved. OBJECTIVE: Physical Exam: BP 148/66 Pulse 89 Temp (Src) 98.8 (Oral) Resp 24 Ht 5' 10 (1.78m) Wt 263 lb 14.3 oz (119.7kg) SpO2 95% BMI 37.86 kg/(m2). O2 Therapy: Nasal Cannula, Liters (Numeric Only): 3 General: Comfortable, no acute distress HEENT: Normocephalic and atraumatic. Resp: Normal respiratory effort on CPAP Cardio: Hemodynamically stable, warm and well-perfused GI: Soft, non-distended, appropriately tender, wound c/d/i, JPx3 with SS output MSK: No deformities Neuro: Alert and oriented. Normal speech Intake/Output: Date 12/02/24699 - 12/03/2465812/03/24699 - 12/04/24 0659 Shift 6900-7044 6671-5315 9447-6379 24 Hour Total 0785-3266 7086-1129 4849-7700 24 Hour Total INTAKE PO 670 670 0 0 PO 670 670 0 0 Supplements (mL) 0 0 0 0 Shift Total 670 670 0 0 OUTPUT Urine 250 200 350 800 Output ( Indwelling Urinary Catheter 12/01/24 0739 [facility] Coude 16 Fr) 250 200 350 800 Tubes 70 60 130 Drain/Tube Output (Drain/Tube 12/01/24 1143 [facility] Left Upper Quadrant Abdomen Drain #1) 20 30 50 Drain/Tube Output (Drain/Tube 12/01/24 1140 [facility] Left Upper Quadrant Abdomen Drain #2) 10 30 40 Drain/Tube Output (Drain/Tube 12/01/24 1213 [facility] Right Lower Quadrant Abdomen Drain #3) 40 40 Shift Total 320 200 410 930 Weight (kg) 119.7 119.7 119.7 119.7 119.7 119.7 119.7 119.7 Labs Reviewed: Recent Labs 12/03/24 0340 12/02/24 2254 12/01/24 2251 WBC 11.93* 11.47* 10.28 HB 11.0* 10.8* 12.6* HCT 35.9* 33.8* 37.8* PLT 254 231 246 NA 139 139 136 K 4.4 4.7 4.9 CHLOR 105 104 102 CO2 21* 20* 18* CREAT 1.40* 1.53* 1.07 BUN 30* 32* 27* GLUC 179* 211* 244* P 3.6 4.2 5.1* MG 1.9 1.7 1.7 CA 7.8* 7.6* 8.0* Imaging Reviewed: N/A [facility] 12-02-2024 Note HNO ID: [id number] Author: NABIL ROSE APRN.UPHOLSTERY INSTRUCTOR Service: General Surgery Author Type: Nurse Practitioner Type: Progress Notes Filed: 12/02/2024 12:35 Note Text: GENERAL SURGERY PROGRESS NOTE Corinne Correa [id number] ASSESSMENT AND PLAN Corinne Correa is a 74 year old male with PMHx f HLD, HTN, ALICIA on CPAP, T2DM, hypothyroidism, anemia, MDD, heart murmur and alcohol use who is now s/p ventral hernia repair with Dr. Persaud on 12/01/2024 -Neuro: #Acute postoperative pain - continue MMPR per MAY. #MDD - no current medications. #Alcohol use -2-3 drinks per night. CIWA protocol initiated. -CV: #HTN - SBP ~ 140-150. Resume home metoprolol and amlodipine. Vitals per [facility] protocol. #HLD - Continue atorvastatin -Pulm: #ALICIA - Continue CPAP qHS and with naps. SPo2 96% on 3 L NC - wean o2 as able. Encourage IS 10 breaths q1h -FEN-GI: Back down to NPO d/t nausea. Daily BMP - replete lytes PRN. Continue mIVF @ 100cc/h. -Renal: sCr 1.07. Daily BMP. 500cc IVF bolus for low UOP. Keep delacruz today. Repeat labs at 12PM -DVT Prophylaxis: Continue SQH 5000u TID. SCD's while in bed, encourage ambulation. -Endo: #T2DM - BG 170-250. Increase to SSI #2 q6H while NPO. #Hypothyroidism -Continue home synthroid -Dispo: RNF Plan of care discussed with Dr. Cori Rose MSN, PICK UP WORKER-UPHOLSTERY INSTRUCTOR General Surgery Phone/Pager: [phone] After 4:00pm/weekends: [place], [phone] [place], [phone] 12/02/2024 Patient Active Hospital Problem List: Hernia Date Noted: 12/01/2024 Essential hypertension Date Noted: 03/05/2024 Hyperlipidemia Date Noted: 03/05/2024 Hypothyroidism Date Noted: 03/05/2024 Major depression, single episode Date Noted: 03/26/2024 ALICIA on CPAP Date Noted: 11/14/2024 Type 2 diabetes mellitus (HCC) Date Noted: 03/05/2024 Heart murmur Date Noted: 11/24/2024 Alcohol use Date Noted: 11/24/2024 Obesity, Class II, BMI 35-39.9 Date Noted: 12/01/2024 S/P repair of ventral hernia Date Noted: 12/02/2024 SUBJECTIVE: Nauseous this morning No emesis AROBF Pain controlled Marginal UOP via delacruz overnight OBJECTIVE: BP 140/64 Pulse 88 Temp 36.9 ?C (98.4 ?F) (Oral) Resp 17 Ht 177.8 cm (5' 10) Wt 119.7 kg (264 lb) SpO2 96% BMI 37.88 kg/m? Body mass index is 37.88 kg/m?. GENERAL: Alert and oriented, no acute distress, cooperative. LUNGS: Non labored breathing on 3 L NC. ABDOMEN: Soft, appropriately tender, mildly distended. MADDY drain x 3 with SS output. WOUND: clean, dry and intact with initial postoperative dressing in place. Labs: CBC, Coags, BMP, Mg, Phos Recent Labs 12/01/24 2251 WBC 10.28 HB 12.6* HCT 37.8* PLT 246 NA 136 K 4.9 CHLOR 102 CO2 18* BUN 27* CREAT 1.07 GLUC 244* CA 8.0* MG 1.7 P 5.1* I/O past 24h: Intake/Output Summary (Last 24 hours) at 12/02/2024 1225 Last data filed at 12/02/2024 1000 Gross per 24 hour Intake 4730 ml Output 1605 ml Net 3125 ml LDA: Lines, Drains, and Airways Line Duration Peripheral 12/01/24 0611 Short Right Hand 20 Gauge 1 day Peripheral 12/01/24 0746 Left Hand 18 Gauge 1 day Drain Duration Drain/Tube 12/01/24 1140 [facility] Luke Barillas Left Upper Quadrant Abdomen Drain #2 1 day Drain/Tube 12/01/24 1143 [facility] Luke Barillas Left Upper Quadrant Abdomen Drain #1 1 day Drain/Tube 12/01/24 1213 [facility] Luke Barillas Right Lower Quadrant Abdomen Drain #3 1 day Indwelling Urinary Catheter 12/01/24 0739 [facility] Coude 16 Fr 1 day SURGERY/PROCEDURE: Procedure(s) and Anesthesia Type: * HERNIORRHAPHY INCISIONAL ABDOMINAL RECURRENT REDUCIBLE GREATER THAN 10cm - General [facility] 12-01-2024 Note HNO ID: [id number] Author: CHARMAINE JIANG MD Service: ? Author Type: Physician Type: Anesthesia Procedure Notes Filed: 12/01/2024 09:40 Note Text: ANESTHESIOLOGY PROCEDURE NOTE A-Line General Information Procedure Start Time/Medication Administration: 12/01/2024 8:55 AM Procedure End Time: 12/01/2024 9:05 AM Patient location during procedure: OR Timeout Performed Pre-procedure: timeout performed Consent Obtained: Yes Indications: continuous blood pressure monitoring Staffing Anesthesiologist: Charmaine Jiang MD Performed by: anesthesiologist Preparation Sterility Preparation: hand hygiene performed prior to procedure, sterile gloves, drapes, and procedure tray, surgical cap used, mask used, sterile drape used during line insertion, skin prep agent completely dried prior to procedure Site Prep: Chlorhexidine Procedure Details Catheter Type: arterial line Catheter Size: 20 G Catheter Length: 5.25 in Micropuncture Kit Used: Yes Guidewire Used: Yes Guidewire Removed Intact: Yes Laterality: left Site: radial artery Ultrasound Guided: No Line Secured: Tegaderm and tape Events Events: greater than 3 attempts Comments Attempter 2 times with regular a line catheter, good view under ultrasound but unable to thread wire more than 1/3 of length. Third attempt with micro puncture kit. Good view of needle entering the vessel and wire inside the artery both longitudinally and cross section. Micro wire threaded without resistance. Good pulsatile backflow and arterial line pressure wave. SIGNATURE: Charmaine Jiang MD PATIENT NAME: Corinne Correa DATE: December 01, 2024 TIME: 9:36 AM CSN: [id number] [facility] 12-01-2024 Note HNO ID: [id number] Author: FERNANDA CURRY SRNA Service: ? Author Type: Student Type: Anesthesia Procedure Notes Filed: 12/01/2024 08:16 Note Text: ANESTHESIOLOGY PROCEDURE NOTE PIV General Information Procedure Start Time/Medication Administration: 12/01/2024 7:46 AM Procedure End Time: 12/01/2024 7:47 AM Patient Location: OR Staffing Anesthesiologist: Charmaine Jiang MD Performed by: anesthesiologist Preparation Sterility Preparation: hand hygiene performed prior to procedure, surgical cap used, mask used, skin prep agent completely dried prior to procedure Sterility Technique Not Completely Performed Due to Extreme Emergency: No Site Prep: alcohol Procedure Details Indication: need for IV access Needle Size/Type: 18 gauge angiocath Orientation: Left Location: Hand Imaging Guidance Used: No SIGNATURE: GOYO Dee PATIENT NAME: Corinne Correa DATE: December 01, 2024 TIME: 8:16 AM CSN: [id number] [facility] 12-01-2024 Note HNO ID: [id number] Author: FERNANDA CURRY SRNA Service: ? Author Type: Student Type: Anesthesia Procedure Notes Filed: 12/01/2024 08:16 Note Text: ANESTHESIOLOGY PROCEDURE NOTE Airway General Information Procedure Start Time/Medication Administration: 12/01/2024 7:41 AM Procedure End Time: 12/01/2024 7:42 AM Patient location during procedure: OR Timeout Performed Pre-procedure: timeout performed Consent Obtained: Yes Patient identity confirmed: arm band, care steam room attendant and patient Staffing Anesthesiologist: Charmaine Jiang MD SRNA: Fernanda Curry SRNA Performed by: GOYO Indications and Patient Condition Indications for airway management: anesthesia Preoxygenated: yes anesthesia circuit Patient position: sniffing Method: asleep Cricoid Pressure: No Manual In-Line Stabilization: No Difficult Mask: No Airway Accessory: oral airway Final Airway Details Final airway type: endotracheal airwayFinal Endotracheal Airway: ETT Cuffed: yes Successful intubation technique: video laryngoscopy Devices used: [employer] Endotracheal tube insertion site: oral Blade: Chetan Blade size: #4 ETT size (mm): 7.5 Measured from: lips Measurement (cm): 23 Placement verified by: capnometry Cormack-Lehane Classification: grade I - full view of glottis Number of attempts at approach: 1 Failed airway: no Unrecognized esophageal intubation: no Airway not difficult Comments 2 hand mask SIGNATURE: GOYO Dee PATIENT NAME: Corinne Correa DATE: December 01, 2024 TIME: 8:15 AM CSN: [id number] [facility] 11-25-2024 Telephone encounter Note Joya Coreas saw this mutual patient in [facility] on 11/25/2024. Corinne Correa [id number] is scheduled for: HERNIORRHAPHY INCISIONAL ABDOMINAL RECURRENT REDUCIBLE GREATER THAN 10cm with Dr. Persaud on 12/01/24. Patient's hemoglobin A1C is 8.2% - is patient still able to proceed? HEMOGLOBIN A1C (11/24/2024 3:02 PM) Thank you, Eugenia Ferreira APRN.CNP [facility] 11-25-2024 Miscellaneous Notes Joya Coreas saw this mutual patient in [facility] on 11/25/2024. Corinne Correa [id number] is scheduled for: HERNIORRHAPHY INCISIONAL ABDOMINAL RECURRENT REDUCIBLE GREATER THAN 10cm with Dr. Persaud on 12/01/24. Patient's hemoglobin A1C is 8.2% - is patient still able to proceed? HEMOGLOBIN A1C (11/24/2024 3:02 PM) Thank you, Eugenia Ferreira APRN.CNP [facility] documented in this encounter [facility] 11-24-2024 Instructions Eugenia Ferreira APRN.CNP - 11/24/2024 2:21 PM EDT Images from the original note were not included. [facility] PATIENT PREOPERATIVE INSTRUCTIONS Augie Persaud MD has scheduled you for your procedure at this surgery center: [facility]: --[address] [place] [id number]. - To obtain your arrival time for surgery, call your physician's office the day before your surgery. - If you have received different instructions about finding out your arrival time from your surgeon, please follow those instructions. - If your surgery is scheduled for Saturday, call the Saturday before. Your surgeon s geospatial technologist will tell you what time to call the office. - If you have not reached the departmental geospatial technologist by 5 P.M., call [phone] after 5 P.M. the day before your surgery. Please read below carefully for your personalized instructions. Dietary Restrictions: - No solid food after midnight. - You may have 12 ounces of clear liquids (water, clear juices such as apple juice or gatorade, carbonated beverages, clear tea, black coffee, jello) until 2 hours before scheduled arrival at facility. - Do not drink any alcohol after midnight the night before your surgery. - no milk/creamer or other additives like honey - no pulp juices Medications: Pre-Surgery Med Instructions Medication Instructions amLODIPine (NORVASC) 5 mg tablet If you normally take this medication in the morning, take the morning of surgery. levothyroxine (SYNTHROID) 25 mcg tablet If you normally take this medication in the morning, take the morning of surgery. atorvastatin (LIPITOR) 20 mg tablet If you normally take this medication in the morning, take the morning of surgery. metoprolol tartrate, short acting, (LOPRESSOR) 25 mg tablet If you normally take this medication in the morning, take the morning of surgery. metFORMIN (GLUCOPHAGE) 1,000 mg tablet Do not take the day of surgery semaglutide (OZEMPIC) 1 mg/dose (4 mg/3 mL) pen Hold 7 days before surgery. Last dose 11/23/24. If you are currently using a [id number] injectable or oral medication for diabetes or weight loss such as Dulaglutide (Trulicity), Exenatide (Byetta, Bydureon), Liraglutide (Victoza, Saxenda), Semaglutide (Ozempic, Wegovy, Rybelsus), or Tirzepatide (Mounjaro), the medicine should be stopped at least 7 days before surgery. These medicines can cause food to remain in your stomach for a very long time and increase the risks from surgery and anesthesia. Not stopping the medication for a long enough time may result in your surgery being rescheduled. If you take any medications for erectile dysfunction-Cialis (Tadalafil), Levitra, Staxyn (Vardenafil) Viagra (Sildenenafil please do not take these for 48 hours before surgery. If you start any new medications after today's visit, please contact the surgeon's office. Blood Thinning Medications: - Stop NSAIDS (Ibuprofen, Advil, Aleve, Motrin, Celebrex, Mobic, etc.) 7 days before surgery, as directed by your surgeon. - Stop Aspirin 7 days before surgery, as directed by your surgeon. - Stop herbal supplements 7 days before surgery. - You may take Tylenol (Acetaminophen) or any of your pain medications that do not contain aspirin or NSAIDS as needed. Important Reminders: - If you use CPAP/BIPAP, bring the machine with you to the surgery center. - If you are prescribed inhalers for breathing, continue using them. - Please be sure to brush your teeth and you can use mouth wash or rinse your mouth if dry. - Candy, mints, and tobacco products are NOT permitted the morning of surgery. - Hearing aids, dentures and glasses may be worn the morning of surgery. - If you have dentures or partials, please have a case to place them in or leave at home day of surgery. - NO jewelry, body piercings, makeup, hairpins or contacts are to be worn the day of surgery. If you develop symptoms such as a fever, cold, or flu, or have other changes to your health within TWO DAYS of scheduled surgery or the morning of surgery, please contact the surgery center above. Personal Belongings: -Please have photo ID and insurance cards. -If you do not have a copy of advance directives on file with us, please bring a copy with you on the day of surgery. - Leave ALL valuables and money at home or with family members. For Outpatient Procedures: - YOU MUST HAVE A RESPONSIBLE BAKED AND GRAPHITE INSPECTOR TAKE YOU HOME. A BUNCHER MACHINE OR M48 M60 ARMOR CREWMAN CANNOT BE MADE A RESPONSIBLE BAKED AND GRAPHITE INSPECTOR. - We recommend that a responsible person stays with you overnight to take care of you. - You cannot stay in a hotel alone after outpatient surgery. You will not be permitted to have your surgery, if you do not have someone to take care of you. Please be aware that emergency situations arise, which may delay or change your surgical time. If this happens, we will notify you as soon as possible and regret any inconvenience. If you already have an Advance Directive, please fax a copy to [phone] or email to for it to be added to your chart. If you do not have an Advance Directive, you can find the appropriate form and more information at [email or web address]. We recommend that you complete the Advance Directive form found on the website and bring it with you the day of your surgery. It can be witnessed and scanned into your chart that day. Eugenia Ferreira APRN.ARNIE documented in this encounter [facility] 11-24-2024 History and physical note Images from the original note were not included. [facility] Pre-Anest[facility] Consultation [facility] HISTORY AND PHYSICAL EXAMINATION SERVICE DATE: 11/24/2024 SERVICE TIME: 2:47 PM PRIMARY CARE PHYSICIAN: HANS Escoto, UPHOLSTERY INSTRUCTOR Assessment Patient has the following medical conditions which may affect lorenza-operative course: 1. Hyperlipidemia, unspecified hyperlipidemia type (E78.5) - Continue atorvastatin as prescribed. 2. Essential hypertension (I10) - Continue amlodipine and metoprolol as prescribed. Last 3 Encounter BP Readings: Date: BP: 11/24/2024 122/58 09/10/2024 153/68 3. ALICIA on CPAP (G47.33) - Patient is compliant with CPAP therapy. 4. Gastrostomy present (HCC) (Z93.1) - G-tube has been removed. - Denies any new or worsening symptoms. 5. Type 2 diabetes mellitus with other specified complication, unspecified whether half-way insulin use (HCC) (E11.69) 6. IFG (impaired fasting glucose) (R73.01) - On metformin and semaglutide; last semaglutide dose was last week. - Wears Esperanza Freestyle. - Advised to hold metformin on day of surgery and discontinue semaglutide 7 days prior to surgery. 7. Hypothyroidism, unspecified type (E03.9) - Continue levothyroxine as prescribed. 8. Anemia, unspecified type (D64.9) - History of anemia during previous hospitalization (January-March); order labs to reassess. 9. Major depressive disorder with single episode, remission status unspecified (F32.9) 10. Anxiety disorder, unspecified type (F41.9) - Single episode of anxiety and depression documented in March of last year; no current treatment. 11. History of basal cell carcinoma (BCC) (Z85.828) - History of BCC on nose, previously removed. 12. History of tracheostomy (Z98.890) - Tracheostomy has been removed. - Denies any new or worsening symptoms. 13. Heart murmur (R01.1) - Soft murmur auscultated in aortic area; no bruits noted. - Order EKG prior to surgery. 14. Alcohol use (F10.90) - Reports drinking about 2-3 bourbon drinks a night prior to sleeping. - Advised no alcohol after midnight before surgery. ANESTHESIA FINDINGS: Intubation History: No history of difficult intubation. No abnormal airway history Significant Anesthesia Considerations: none Airway History: No history of difficult airway No abnormal airway history Bolton Activity Status Index: METS: Walk indoors, such as around the house (1.75 METs) Do light work around the house, such as dusting or washing dishes (2.70 METs) Take care of self; that is eating, dressing, bathing, using the toilet (2.75 METs) Walk a block or two on level ground (2.75 METs) Do moderate work around the house, such as vacuuming, sweeping floors, or carrying in groceries (3.50 METs) Climb a flight of stairs or walk up a hill (5.50 METs) DASI Score: 18.95 Patient denies any chest pain or undue shortness of breath with the above physical activity. Clinical Frailty Scale: 3. Well, with treated comorbid disease STOP-Bang Score: STOP-Bang Score: (+ alicia on cpap) I - PHYSICAL EVALUATION AIRWAY Patient intubated: No. Tracheostomy tube not present Mallampati: II. TM distance: >3 FB. Neck ROM: full ROM without neurological symptoms. Mouth openin FB. Short neck: no. Thick neck: no DENTAL Dental findings: missing tooth/teeth. Additional comments: + scattered missing teeth. II - ANESTHESIA PLAN Anesthetic plan additional comments: *PACC/TCI - anesthesia choice. Informed Consent Prepared for Surgery: optimally prepared for surgery, pending [see comment]. CONSULTS: Patient does not require consults for optimization at this time Planned Anesthetic: anesthesia choice The Following Tests/Procedures Have Been Initiated: Orders Placed This Encounter [email or web address] Standing Status: Future Expected Date: 11/24/2024 Expiration Date: 02/23/2025 amLODIPine (NORVASC) 5 mg tablet Sig: Take 5 mg by mouth once daily. levothyroxine (SYNTHROID) 25 mcg tablet Sig: Take 25 mcg by mouth once daily. REASON FOR VISIT: Corinne Correa is a 74 year old male who is scheduled for Procedure(s): HERNIORRHAPHY INCISIONAL ABDOMINAL RECURRENT REDUCIBLE GREATER THAN 10cm (N/A) at the request of Dr. Augie Persadu for consultation. My final recommendation will be communicated back to the requesting physician by way of shared medical record or letter. Subjective The patient has the following: COVID-19 Immunization Status This patient has no relevant Health Maintenance data. CHIEF COMPLAINT: pre op HPI: Corinne Correa is a 74-year-old male with a history of hypothyroidism, DM, and ALICIA, presenting for preoperative evaluation prior to incisional hernia repair. Corinne is scheduled for incisional hernia repair with Dr. Augie Persaud in one week. The hernia developed following a previous outpatient hernia repair, leading to respiratory failure and necessitating multiple additional incisions for abdominal cleaning. This resulted in a prolonged hospitalization, including a medically induced coma from January 19 to March 22, followed by a recovery period where Corinne had to relearn basic functions such as walking and eating. Corinne reports significant improvement, noting that he was able to walk by mid-May, earlier than the expected timeline of September or October. REVIEW OF SYSTEMS: General: No weight loss, malaise or fevers. Neurological: Positive for: peripheral neuropathy (right back of thigh). Negative for: delirium, dementia, headaches, impaired sensorium, seizures, TIA and strokes. Respiratory: Denies any shortness of breath, chest pain, wheezing, or cough. Positive for: obstructive sleep apnea. Negative for: asthma, bronchitis, COPD, current cough, bronchodilator used daily for the last 3 months, dyspnea, home oxygen, orthopnea, pneumonia within 6 weeks, tobacco use and URI < 2 weeks. Cardiovascular: Denies any heart palpitations, edema, chest pain, shortness of breath, syncope, activity intolerance, or dizziness. Positive for: hyperlipidemia, hypertension and murmur/valvular heart disease Negative for: abdominal aortic aneurysm, AICD/PPM, angina, anticoagulation therapy, arrhythmia, atrial fibrillation, CAD, chest pain, CHF, congenital heart defect, DVT/PE, recent [place], PTCA, PVD, open heart surgery and valve surgery. GI: Positive for: ETOH >2 drinks/day Negative for: abdominal pain, GERD, GI bleed <30 days, hepatitis, liver disease, nausea and vomiting. : denies CKD Negative for: on dialysis, dysuria, flank pain, frequent urination, hematuria, renal failure and urinary tract infection. Endocrine: Positive for: diabetes mellitus and hypothyroidism. Negative for: hyperthyroidism. Hematology: Positive for: anemia. Negative for: bruises/bleeds easily, factor V Leiden, hemophilia, thrombocytopenia, von Willebrand disease, transfusion of at least 4 units within 72 hours prior to surgery and chronic anti-coagulation/platelet meds. Oncology: + hx of bcc Negative for: CA metastasis, chemo within 30 days, disseminated cancer and radiotherapy within 90 days. Psych: Positive for: anxiety and depression. Musculoskeletal: Negative for joint pain or swelling, back pain or muscle pain. Skin: Negative for lesions, rash and itching. Implanted Devices: No implanted devices. PAST MEDICAL HISTORY Diagnosis Date Diabetes mellitus (HCC) Gastroesophageal reflux disease without esophagitis 03/26/2024 HTN (hypertension) Hyperthyroidism Respiratory failure (HCC) Sepsis (HCC) PAST SURGICAL HISTORY Procedure Laterality Date CYST/MOLE REMOVAL Left HAND SURGERY HX Right REMOVAL GALLBLADDER REPAIR EPIGASTRIC HERNIA,REDUC FAMILY HISTORY Problem Relation Age of Onset other (htn) Mother other (htn) Father other (non hodkins lymphoma) Sister Anesthesia Problems No Family History SOCIAL HISTORY[1] Prior to Admission medications as of 11/24/24 1416 Medication Sig Last Dose Taking amLODIPine (NORVASC) 5 mg tablet Take 5 mg by mouth once daily. Yes levothyroxine (SYNTHROID) 25 mcg tablet Take 25 mcg by mouth once daily. Yes atorvastatin (LIPITOR) 20 mg tablet 20 mg. Yes metoprolol tartrate, short acting, (LOPRESSOR) 25 mg tablet Take 25 mg by mouth every morning. Yes metFORMIN (GLUCOPHAGE) 1,000 mg tablet 1,000 mg. Yes semaglutide (OZEMPIC) 1 mg/dose (4 mg/3 mL) pen 1 mg. Yes metoprolol succinate ER (TOPROL XL) 25 mg 24 hr tablet 25 mg. No medication comments found. ALLERGIES No Known Allergies Objective PHYSICAL EXAM: General: alert and oriented and healthy appearance. Pertinent negatives noted - not distressed. Skin: normal color, no rash or lesions. HEENT: EOM intact, pupils equal round and pupils reactive to light. Pertinent negatives noted - no carotid bruit. Cardiovascular: Pulse characterized as regular.Positive for murmur. Pertinent negatives noted - no rub and no gallop. No carotid pulse abnormalities. Findings of a 1/6 grade heart murmur, low pitched with a soft quality, and a location of: aortic area. Respiratory: normal breath sounds, no wheezes or crackles. No chest wall deformity or tenderness. Abdomen: bowel sounds present and soft. Pertinent negatives noted - not tender. Extremities: no deformity, no edema or tenderness, no joint swelling or clubbing. Neurological: normal cognition and motor skills. Gait normal. No weakness or sensory deficit. PAIN ASSESSMENT: VITALS: BP 122/58 Pulse 73 Temp (Src) 98.5 (Temporal) Resp 16 Ht 5' 10 (1.78m) Wt 264 lb 9.6 oz (120.0kg) SpO2 94% BMI 37.97 kg/(m^2). Diagnostic tests reviewed for today's visit: Lab Value Units Date High Low HB No results within date range. HCT No results within date range. WBC No results within date range. PLT No results within date range. NA No results within date range. K No results within date range. GLUC No results within date range. BUN No results within date range. CREAT No results within date range. PTSEC No results within date range. INR No results within date range. APTT No results within date range. ALT No results within date range. AST No results within date range. TBILI No results within date range. TSH No results within date range. Lab Value Units Date High Low HCGQT No results within date range. UHCG No results within date range. HCG, BODY* No results within date range. Lab Value Units Date High Low ABORHD No results within date range. ABSCREEN No results within date range. No results found for: HBA1C Recent Results (from the past 8760 hours) ECG COMPLETE Collection Time: 11/24/24 3:07 PM Result Value Ventricular Rate 76 Atrial Rate 76 P-R Interval 142 QRS Duration 98 QT Interval 420 QTC Calculation (Bazett) 472 Calculated P [place] 62 Calculated R [place] 64 Calculated T [place] 71 Impression NORMAL SINUS RHYTHM NORMAL ECG No results found for this or any previous visit (from the past 63535 hours). Instructions Given to Patient: Instructions located in the after visit summary. Patient given verbal and written preop instructions and voices comprehension and compliance. Recording using DecideQuick software for draft documentation of the visit was discussed with the patient/authorized enrollment representative; all questions welcomed and answered. Patient/authorized enrollment representative agreed to proceed SIGNATURE: Eugenia Ferreira APRN.CNP PATIENT NAME: Corinne Correa DATE: November 24, 2024 TIME: 2:02 PM PAGER/CONTACT #: [1] Social History Tobacco Use Smoking status: Former Types: Cigarettes Smokeless tobacco: Never Vaping Use Vaping status: Never Used Substance Use Topics Alcohol use: Yes Alcohol/week: 12.0 - 28.0 standard drinks of alcohol Types: 12 - 28 Standard drinks or equivalent per week Drug use: Never [facility] 11-24-2024 History and physical note Images from the original note were not included. [facility] HISTORY AND PHYSICAL EXAMINATION SERVICE DATE: 11/24/2024 SERVICE TIME: 2:47 PM PRIMARY CARE PHYSICIAN: HANS Escoto, ARNIE Assessment Patient has the following medical conditions which may affect lorenza-operative course: 1. Hyperlipidemia, unspecified hyperlipidemia type (E78.5) - Continue atorvastatin as prescribed. 2. Essential hypertension (I10) - Continue amlodipine and metoprolol as prescribed. Last 3 Encounter BP Readings: Date: BP: 11/24/2024 122/58 09/10/2024 153/68 3. ALICIA on CPAP (G47.33) - Patient is compliant with CPAP therapy. 4. Gastrostomy present (HCC) (Z93.1) - G-tube has been removed. - Denies any new or worsening symptoms. 5. Type 2 diabetes mellitus with other specified complication, unspecified whether half-way insulin use (HCC) (E11.69) 6. IFG (impaired fasting glucose) (R73.01) - On metformin and semaglutide; last semaglutide dose was last week. - Wears Esperanza Freestyle. - Advised to hold metformin on day of surgery and discontinue semaglutide 7 days prior to surgery. 7. Hypothyroidism, unspecified type (E03.9) - Continue levothyroxine as prescribed. 8. Anemia, unspecified type (D64.9) - History of anemia during previous hospitalization (January-March); order labs to reassess. 9. Major depressive disorder with single episode, remission status unspecified (F32.9) 10. Anxiety disorder, unspecified type (F41.9) - Single episode of anxiety and depression documented in March of last year; no current treatment. 11. History of basal cell carcinoma (BCC) (Z85.828) - History of BCC on nose, previously removed. 12. History of tracheostomy (Z98.890) - Tracheostomy has been removed. - Denies any new or worsening symptoms. 13. Heart murmur (R01.1) - Soft murmur auscultated in aortic area; no bruits noted. - Order EKG prior to surgery. 14. Alcohol use (F10.90) - Reports drinking about 2-3 bourbon drinks a night prior to sleeping. - Advised no alcohol after midnight before surgery. ANESTHESIA FINDINGS: Intubation History: No history of difficult intubation. No abnormal airway history Significant Anesthesia Considerations: none Airway History: No history of difficult airway No abnormal airway history [place] Activity Status Index: METS: Walk indoors, such as around the house (1.75 METs) Do light work around the house, such as dusting or washing dishes (2.70 METs) Take care of self; that is eating, dressing, bathing, using the toilet (2.75 METs) Walk a block or two on level ground (2.75 METs) Do moderate work around the house, such as vacuuming, sweeping floors, or carrying in groceries (3.50 METs) Climb a flight of stairs or walk up a hill (5.50 METs) DASI Score: 18.95 Patient denies any chest pain or undue shortness of breath with the above physical activity. Clinical Frailty Scale: 3. Well, with treated comorbid disease STOP-Bang Score: STOP-Bang Score: (+ alicia on cpap) I - PHYSICAL EVALUATION AIRWAY Patient intubated: No. Tracheostomy tube not present Mallampati: II. TM distance: >3 FB. Neck ROM: full ROM without neurological symptoms. Mouth openin FB. Short neck: no. Thick neck: no DENTAL Dental findings: missing tooth/teeth. Additional comments: + scattered missing teeth. II - ANESTHESIA PLAN Anesthetic plan additional comments: *[facility]/TCI - anesthesia choice. Informed Consent Prepared for Surgery: optimally prepared for surgery, pending [see comment]. CONSULTS: Patient does not require consults for optimization at this time Planned Anesthetic: anesthesia choice The Following Tests/Procedures Have Been Initiated: Orders Placed This Encounter [email or web address] Standing Status: Future Expected Date: 11/24/2024 Expiration Date: 02/23/2025 amLODIPine (NORVASC) 5 mg tablet Sig: Take 5 mg by mouth once daily. levothyroxine (SYNTHROID) 25 mcg tablet Sig: Take 25 mcg by mouth once daily. REASON FOR VISIT: Corinne Correa is a 74 year old male who is scheduled for Procedure(s): HERNIORRHAPHY INCISIONAL ABDOMINAL RECURRENT REDUCIBLE GREATER THAN 10cm (N/A) at the request of Dr. Augie Persaud for consultation. My final recommendation will be communicated back to the requesting physician by way of shared medical record or letter. Subjective The patient has the following: COVID-19 Immunization Status This patient has no relevant Health Maintenance data. CHIEF COMPLAINT: pre op HPI: Corinne Correa is a 74-year-old male with a history of hypothyroidism, DM, and ALICIA, presenting for preoperative evaluation prior to incisional hernia repair. Corinne is scheduled for incisional hernia repair with Dr. Augie Persaud in one week. The hernia developed following a previous outpatient hernia repair, leading to respiratory failure and necessitating multiple additional incisions for abdominal cleaning. This resulted in a prolonged hospitalization, including a medically induced coma from January 19 to March 22, followed by a recovery period where Corinne had to relearn basic functions such as walking and eating. Corinne reports significant improvement, noting that he was able to walk by mid-May, earlier than the expected timeline of September or October. REVIEW OF SYSTEMS: General: No weight loss, malaise or fevers. Neurological: Positive for: peripheral neuropathy (right back of thigh). Negative for: delirium, dementia, headaches, impaired sensorium, seizures, TIA and strokes. Respiratory: Denies any shortness of breath, chest pain, wheezing, or cough. Positive for: obstructive sleep apnea. Negative for: asthma, bronchitis, COPD, current cough, bronchodilator used daily for the last 3 months, dyspnea, home oxygen, orthopnea, pneumonia within 6 weeks, tobacco use and URI < 2 weeks. Cardiovascular: Denies any heart palpitations, edema, chest pain, shortness of breath, syncope, activity intolerance, or dizziness. Positive for: hyperlipidemia, hypertension and murmur/valvular heart disease Negative for: abdominal aortic aneurysm, AICD/PPM, angina, anticoagulation therapy, arrhythmia, atrial fibrillation, CAD, chest pain, CHF, congenital heart defect, DVT/PE, recent [place], PTCA, PVD, open heart surgery and valve surgery. GI: Positive for: ETOH >2 drinks/day Negative for: abdominal pain, GERD, GI bleed <30 days, hepatitis, liver disease, nausea and vomiting. : denies CKD Negative for: on dialysis, dysuria, flank pain, frequent urination, hematuria, renal failure and urinary tract infection. Endocrine: Positive for: diabetes mellitus and hypothyroidism. Negative for: hyperthyroidism. Hematology: Positive for: anemia. Negative for: bruises/bleeds easily, factor V Leiden, hemophilia, thrombocytopenia, von Willebrand disease, transfusion of at least 4 units within 72 hours prior to surgery and chronic anti-coagulation/platelet meds. Oncology: + hx of bcc Negative for: CA metastasis, chemo within 30 days, disseminated cancer and radiotherapy within 90 days. Psych: Positive for: anxiety and depression. Musculoskeletal: Negative for joint pain or swelling, back pain or muscle pain. Skin: Negative for lesions, rash and itching. Implanted Devices: No implanted devices. PAST MEDICAL HISTORY Diagnosis Date Diabetes mellitus (HCC) Gastroesophageal reflux disease without esophagitis 03/26/2024 HTN (hypertension) Hyperthyroidism Respiratory failure (HCC) Sepsis (HCC) PAST SURGICAL HISTORY Procedure Laterality Date CYST/MOLE REMOVAL Left HAND SURGERY HX Right REMOVAL GALLBLADDER REPAIR EPIGASTRIC HERNIA,REDUC FAMILY HISTORY Problem Relation Age of Onset other (htn) Mother other (htn) Father other (non hodkins lymphoma) Sister Anesthesia Problems No Family History SOCIAL HISTORY[1] Prior to Admission medications as of 11/24/24 1416 Medication Sig Last Dose Taking amLODIPine (NORVASC) 5 mg tablet Take 5 mg by mouth once daily. Yes levothyroxine (SYNTHROID) 25 mcg tablet Take 25 mcg by mouth once daily. Yes atorvastatin (LIPITOR) 20 mg tablet 20 mg. Yes metoprolol tartrate, short acting, (LOPRESSOR) 25 mg tablet Take 25 mg by mouth every morning. Yes metFORMIN (GLUCOPHAGE) 1,000 mg tablet 1,000 mg. Yes semaglutide (OZEMPIC) 1 mg/dose (4 mg/3 mL) pen 1 mg. Yes metoprolol succinate ER (TOPROL XL) 25 mg 24 hr tablet 25 mg. No medication comments found. ALLERGIES No Known Allergies Objective PHYSICAL EXAM: General: alert and oriented and healthy appearance. Pertinent negatives noted - not distressed. Skin: normal color, no rash or lesions. HEENT: EOM intact, pupils equal round and pupils reactive to light. Pertinent negatives noted - no carotid bruit. Cardiovascular: Pulse characterized as regular.Positive for murmur. Pertinent negatives noted - no rub and no gallop. No carotid pulse abnormalities. Findings of a 1/6 grade heart murmur, low pitched with a soft quality, and a location of: aortic area. Respiratory: normal breath sounds, no wheezes or crackles. No chest wall deformity or tenderness. Abdomen: bowel sounds present and soft. Pertinent negatives noted - not tender. Extremities: no deformity, no edema or tenderness, no joint swelling or clubbing. Neurological: normal cognition and motor skills. Gait normal. No weakness or sensory deficit. PAIN ASSESSMENT: VITALS: BP 122/58 Pulse 73 Temp (Src) 98.5 (Temporal) Resp 16 Ht 5' 10 (1.78m) Wt 264 lb 9.6 oz (120.0kg) SpO2 94% BMI 37.97 kg/(m^2). Diagnostic tests reviewed for today's visit: Lab Value Units Date High Low HB No results within date range. HCT No results within date range. WBC No results within date range. PLT No results within date range. NA No results within date range. K No results within date range. GLUC No results within date range. BUN No results within date range. CREAT No results within date range. PTSEC No results within date range. INR No results within date range. APTT No results within date range. ALT No results within date range. AST No results within date range. TBILI No results within date range. TSH No results within date range. Lab Value Units Date High Low HCGQT No results within date range. UHCG No results within date range. HCG, BODY* No results within date range. Lab Value Units Date High Low ABORHD No results within date range. ABSCREEN No results within date range. No results found for: HBA1C Recent Results (from the past 8760 hours) ECG COMPLETE Collection Time: 11/24/24 3:07 PM Result Value Ventricular Rate 76 Atrial Rate 76 P-R Interval 142 QRS Duration 98 QT Interval 420 QTC Calculation (Bazett) 472 Calculated P [place] 62 Calculated R [place] 64 Calculated T [place] 71 Impression NORMAL SINUS RHYTHM NORMAL ECG No results found for this or any previous visit (from the past 35808 hours). Instructions Given to Patient: Instructions located in the after visit summary. Patient given verbal and written preop instructions and voices comprehension and compliance. Recording using DecideQuick software for draft documentation of the visit was discussed with the patient/authorized enrollment representative; all questions welcomed and answered. Patient/authorized enrollment representative agreed to proceed SIGNATURE: Eugenia Ferreira APRN.CNP PATIENT NAME: Corinne Correa DATE: November 24, 2024 TIME: 2:02 PM PAGER/CONTACT #: [1] Social History Tobacco Use Smoking status: Former Types: Cigarettes Smokeless tobacco: Never Vaping Use Vaping status: Never Used Substance Use Topics Alcohol use: Yes Alcohol/week: 12.0 - 28.0 standard drinks of alcohol Types: 12 - 28 Standard drinks or equivalent per week Drug use: Never documented in this encounter [facility] 11-16-2024 Telephone encounter Note Patient contacted office and confirmed 11/24/24 2:00 pm appointment. [facility] 11-16-2024 Miscellaneous Notes Patient contacted office and confirmed 11/24/24 2:00 pm appointment. Patient was scheduled for in person [facility] appt at 1040am today. Patient did not check in for appt, called patient at 1055am to see if they were planning on coming. Patient thought his appt was another day. Rescheduled to 11/24/24.. Routed to [facility] geospatial technologist pool. Gudelia Canchola LPN documented in this encounter [facility] 11-16-2024 Telephone encounter Note Patient was scheduled for in person [facility] appt at 1040am today. Patient did not check in for appt, called patient at 1055am to see if they were planning on coming. Patient thought his appt was another day. Rescheduled to 11/24/24.. Routed to [facility] geospatial technologist pool. Gudelia Canchola LPN [facility] 11-09-2024 Progress note Note Date/Time November 09, 2024 1:18pm [facility] [address] [place] [address] Progress Note - Wound Care 11/09/24 1313 MR#: [id number] Acct: [id number] Name: CORINNE CORREA Rep #:[id number] : 1950 74 From: Efrain Hurtado MD PCP: SON Amador Sta tus:REG RCR Location: History of Present Illness Date of Service: 11/09/24 Chief Complaint: Follow-up on his abdominal wound nonhealing since December History of Wound: Corinne Correa is a 74-year-old male who underwent an umbilicalhernia repair at [facility] in December 2023 and unfortunately 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 Through patient report, it was not discovered at the initial time of the hernia repair surgery and he subsequently required 3 surgeries for exploration of his abdomen and to fix the enterotomy site. Patient never had an ostomy. He had a prolonged hospital stay including prolonged intubation necessitating a tracheostomy (he has been decannulated for 1 week) and prolonged ICU admission followed by discharge to a halfway facility. 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 He has an adult daughter with 2 adult grandchildren. Patient has never had any bleeding or clotting problems (he is not on any blood thinner and has not had a blood clot). He is not a smoker. Patient is a diabetic with an A1c of 7.7 (earlier this month). His prealbumin is 24 and his albumin is 3.5. For wound care he has been doing dressing changes with Xeroform and has tried the wound VAC in the past. He has not had a CT scan recently and he has not hada biopsy of the wound. He has not been using an abdominal binder. Subjective Subjective 20 July 2024: Patient seen and examined by Dr. 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 He recommended that forcomplex reconstruction he be referred to Dr. Murry at the [facility] for aTAR/ventral hernia repair. If patient desires, could defer definitive reconstruction and perform skin graft for improved quality of life (no wound), but the ventral diastases would widen. Patient would like to pursue definitive reconstruction at the [facility]. Otherwise from a wound care standpoint there are no new issues today. 10 Aug 2024: Patient reports that he has is seeing a hernia specialist at the [facility] on 10 September 2024. He cannot get an earlier appointment. He was also considering [facility] but they do not have an earlier appointment either per his report. I suggested he may be considered a surgeon at [facility]. 31 August 2024: Doing well overall. Next week he will see [facility] for evaluation for closure of his large ventral abdominal defect. He has gotten the CT scan that Iordered into their system for evaluation. 14 September 2024: The patient is a 74-year-old male presenting with a ventral hernia and an abdominal wall wound. The ventral hernia measures approximately 15 x 20 cm and is located underneath the abdominal wall wound. The abdominal wall wound is currently 12 x 8 cm and is showing signs of healing, with thin abdominal fascia present. The patient is scheduled for a ventral hernia repair at [facility] on December 01. In the interim, wound care is being managed with saline hpm-yb-pifem dressings, which are now recommended to be applied twice daily to promote healing. The patient has been advised to maintain a high-protein diet tosupport healing and prepare for the upcoming surgery. Attestation: Documentation on this patient encounter was supported using ambient scribe technology/ voice AI technology. The patient consented to recording for the purpose of documenting the encounter. Provider reviewed content of the generatednote prior to signature. 12 October 2024: The patient is a 74-year-old male presenting with an abdominal wound. The wound measures approximately 11 x 9 cm and has been decreasing in size. Debridement isperformed with minimal bleeding, and biofilm removal is ongoing to aid healing. The patient is scheduled for a hernia repair on December 01. The surgical teamaims to ensure the abdominal wound is sufficiently healed to reduce infection risk before the procedure. The patient uses an abdominal binder for comfort and support. Attestation: Documentation on this patient encounter was supported using ambient scribe technology/ voice AI technology. The patient consented to recording for the purpose of documenting the encounter. Provider reviewed content of the generatednote prior to signature. Current Encounter, 09 November 2024: Doing well with wound care. Has surgery for hernia repair at [facility] on 01 Dec 2024. Objective Data Objective Data Vital Signs: Vital Signs Temp Pulse Resp O2 Del Method 97.6 F L 78 18 Room Air 11/09/24 09:01 11/09/24 09:01 11/09/24 09:01 11/09/24 09:01 Oxygen Delivery Method Room Air Charges/Coding Procedures Integumentary 111xxx-113xx: 96720 Sera subq tissue 20 sq cm/< Physical Exam Narrative - Abdominal examination: Wound measuring smaller in size, minimal bleeding on debridement. Granulating well over central abdomen Hernia examination: 15 x 20 cm ventral hernia noted Debridement Note Debridement Note Wound debrided: Abdomen, central Laterality: Not Applicable Type of Debridement: Excisional debridement Anesthesia Used: 4% Lidocaine Solution Depth: in the subcutaneous layer Percentage of wound debrided: 100 Instrument Used: 7mm curette Tissue Removed: biofilm over the wound surface Severity: Limited To Skin Breakdown Amount of bleeding with debridement: Mild Bleeding Controlled with: Compression and gauze Patient tolerated procedure: Patient tolerated procedure well Post-Debridement Measurements and Additional Note: Post-Debridement Measurements/Treatment WC - Nurse 1 - General Ulcer Assessment Start: 11/09/24 09:00 Freq: Status: Active Protocol: OBDULIA Activity Type Activity Date Activity User E-sign Co-sign Detail Recorded Client Recorded Date Recorded By Document 11/09/24 09:01 KW [id number] 11/09/24 09:06 11/09/24 09:01 WC - Today's Visit Information Type of service Follow-up Visit (Physician/UPHOLSTERY INSTRUCTOR ) Arrival Mode Ambulatory Accompanied by Patient Identification Verified (Name & Yes ) Vital Signs Temperature (97.8 F-99.1 F) 97.6 F L Temperature Source Temporal Pulse Rate (60-100) 78 Pulse Location Monitor Respiratory Rate (12-18) 18 Respiratory rate source Observation Oxygen Delivery Method Room Air Source Monitor Position Sitting Blood Pressure Location Right Arm History Since Last Visit- (Skip if this is Patient's initial visit) Have you changed medications since your No last visit? Any new allergies or adverse reactions No Had a fall/change in ADL's that may No increase risk of falls Signs or symptoms of abuse and/or No neglect since last visit Have you been in the hospital since your No last visit? Has dressing in place as prescribed Yes Has compression in place as prescribed N/A Has offloadiing in place as prescribed N/A Experienced any changes in pain level or No management Left Footwear Regular Shoe Right Footwear Regular Shoe Pain Scale: 0-10 Numeric Is Patient Pain Free? No - Nurse 1 - General Ulcer Measurement Start: 11/09/24 09:00 Freq: Status: Active Protocol: Activity Type Activity Date Activity User E-sign Co-sign Detail Recorded Client Recorded Date Recorded By Document 11/09/24 09:01 KW [id number] 11/09/24 09:06 KW 11/09/24 09:01 Wound Center Nurse 1 1. ABD -Current Size (cm) - Length 6.8 -Current Size (cm) - Width 9 -Current Size (cm) - Depth 0.1 -Total Square Cm 61.2 -Date of Last Picture (Recall this 11/09/24 field) -Exudate Amt Medium -Exudate Type Serosanguineous -Wound Margin Distinct, Outline Attached -Granulation Amt Large (67-100%) -Granulation Quality Red -Texture (Lorenza-wound Skin Appearance) Assessed -Moisture (Lorenza-wound Skin Appearance) Assessed -Color (Lorenza-wound Skin Appearance) Assessed -Temperature (Lorenza-wound Skin No Abnormality Appearance) (Pt Warm) -Tenderness on Palpation (Lorenza-wound No Skin Appearance) -Ulcer Cleansing Soap and Water -Foul Odor after Cleansing No -Anesthetic Used 5% Lidocaine Gel WC - Nurse 2 - General Ulcer CM Notes Start: 11/09/24 09:00 Freq: Status: Active Protocol: Activity Type Activity Date Activity User E-sign Co-sign Detail Recorded Client Recorded Date Recorded By Document 11/09/24 09:12 JF [id number] 11/09/24 09:13 JF 11/09/24 09:12 Wound Center Nurse 2 -Time 09:13 -Correct Patient Yes -Correct Side, Site, Position Yes -Correct Procedure Yes -Procedure Performed Yes -Type of Procedure Debridement -Clinical Debridement Subcutaneous -Tissue Removed Subcutaneous -Post Debridement (cm) - Length 9.5 -Post Debridement (cm) - Width 6.5 -Post Debridement (cm) - Depth 0.1 -Total Square (Post) (cm) 61.75 -Area of Debridement (cm) - Length 9.5 -Area of Debridement (cm) - Width 6.5 -Total Square (Area) (cm) 61.75 -Tunneling No -Undermining/Tunneling No -Circular Undermining No -Wound/Ulcer Outcome Not Healed -Ulcer Cleansing Rinsed/ Irrigated with Saline -Foul Odor after Cleansing No -Bioengineered Tissue No -Bleeding Controlled with Pressure -Treatment Response Procedure Tolerated Well -Offloading No -Debridement - Subq, 1st 20sq cm Yes -Debridement, SubQ, ea addt'l 20sq cm 3 or part thereof Pain Scale: 0-10 Numeric Is Patient Pain Free? Yes HENRI - Nurse 3 - General Ulcer D/C NN Start: 11/09/24 09:00 Freq: Status: Active Protocol: Activity Type Activity Date Activity User E-sign Co-sign Detail Recorded Client Recorded Date Recorded By Document 11/09/24 09:31 DL [id number] 11/09/24 09:32 DL 11/09/24 09:31 Wound Care Center Nurse 3 1. ABD -Ulcer Cleansing Dakins -Primary Dressing Applied NonAdherent Contact Layer -Other Dressing Xeroform/ABD -Primary Dressing Covered/Secured with Secured with Tape Treatment Response Procedure Tolerated Well Pain Scale: 0-10 Numeric Is Patient Pain Free? Yes WC - Visit Discharge Discharge Condition Stable Ambulatory Status Ambulatory Transportation Private Auto Assessment/Plan Assessment/Plan (1) Nonhealing surgical wound: CODE(S): T81.89XA - Other complications of procedures, not elsewhere classified, initial encounter QUALIFIERS: Encounter type: initial encounter Qualified Code(s): T81.89XA - Other complications of procedures, not elsewhere classified, initial encounter PLAN: Wound cleaned today Continue dressing changes until hernia surgery (current wound care regimen) Patient will follow up as needed following hernia reconstruction Patient happy with the plan 11/09/24 1318 <Electronically signed by Efrain Hurtado MD> Cosigner Signature (if applicable): CC: ~ Signed [facility] Work Phone: [phone] Progress note [facility] [place] [address] Progress Note - Wound Care 11/09/24 1313 MR#: [id number] Acct: [id number] Name: CORINNE CORREA Rep #:[id number] : 1950 74 From: Efrain Hurtado MD PCP: SON Amador tus:REG R Location: History of Present Illness Date of Service: 11/09/24 Chief Complaint: Follow-up on his abdominal wound nonhealing since December History of Wound: Corinne Correa is a 74-year-old male who underwent an umbilicalhernia repair at [facility] in December 2023 and unfortunately 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 Patient never had an ostomy. He had a prolonged hospital stay including prolonged intubation necessitating a tracheostomy (he has been decannulated for 1 week) and prolonged ICU admission followed by discharge to a halfway facility. 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 He has an adult daughter with 2 adult grandchildren. Patient has never had any bleeding or clotting problems (he is not on any blood thinner and has nothad a blood clot). He is not a smoker. Patient is a diabetic with an A1c of 7.7 (earlier this month). His prealbumin is 24 and his albumin is 3.5. For wound care he has been doing dressing changes with Xeroform and has tried the wound VAC in the past. He has not had a CT scan recently and he has not hada biopsy of the wound. He has not been using an abdominal binder. Subjective Subjective 20 July 2024: Patient seen and examined by Dr. 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 He recommended that forcomplex reconstruction he be referred to Dr. Murry at the [facility] for aTAR/ventral hernia repair. If patient desires, could defer definitive reconstruction and perform skin graft for improved quality of life (no wound), but the ventral diastases would widen. Patient would like to pursue definitive reconstruction at the [facility]. Otherwise from a wound care standpoint there are no new issues today. 10 Aug 2024: Patient reports that he has is seeing a hernia specialist at the [facility] on 10 September 2024. He cannot get an earlier appointment. He was also considering [facility] but they do not have an earlier appointment either per his report. I suggested he may be considered a surgeon at [facility]. 31 August 2024: Doing well overall. Next week he will see [facility] for evaluation for closure of his large ventral abdominal defect. He has gotten the CT scan that Iordered into their system for evaluation. 14 September 2024: The patient is a 74-year-old male presenting with a ventral hernia and an abdominal wall wound. Theventral hernia measures approximately 15 x 20 cm and is located underneath the abdominal wall wound. The abdominal wall wound is currently 12 x 8 cm and is showing signs of healing, with thin abdominal fascia present. The patient is scheduled for a ventral hernia repair at [facility] on December 01. In the interim, wound care is being managed with saline [id number]-hp-vwtfa dressings, which are now recommended tarun applied twice daily to promote healing. The patient has been advised to maintain a high-protein diet tosupport healing and prepare for the upcoming surgery. Attestation: Documentation on this patient encounter was supported using ambient scribe technology/ voice AI technology. The patient consented to recording for the purpose of documenting the encounter. Provider reviewed content of the generatednote prior to signature. 12 October 2024: The patient is a 74-year-old male presenting with an abdominal wound. The wound measures approximately 11 x 9 cm and has been decreasing in size. Debridement isperformed with minimal bleeding, and biofilm removal is ongoing to aid healing. The patient is scheduled for a hernia repair on December 01. The surgical teamaims to ensure the abdominal wound is sufficiently healed to reduce infection risk before the procedure. The patient uses an abdominal binder for comfort and support. Attestation: Documentation on this patient encounter was supported using ambient scribe technology/ voice AI technology. The patient consented to recording for the purpose of documenting the encounter. Provider reviewed content of the generatednote prior to signature. Current Encounter, 09 November 2024: Doing well with wound care. Has surgery for hernia repair at [facility] on 01 Dec 2024. Objective Data Objective Data Vital Signs: Vital Signs Temp Pulse Resp O2 Del Method 97.6 F L 78 18 Room Air 11/09/24 09:01 11/09/24 09:01 11/09/24 09:01 11/09/24 09:01 Oxygen Delivery Method Room Air Charges/Coding Procedures Integumentary 111xxx-113xx: 75668 Sera subq tissue 20 sq cm/< Physical Exam Narrative - Abdominal examination: Wound measuring smaller in size, minimal bleeding on debridement. Granulating well over central abdomen Hernia examination: 15 x 20 cm ventral hernia noted Debridement Note Debridement Note Wound debrided: Abdomen, central Laterality: Not Applicable Type of Debridement: Excisional debridement Anesthesia Used: 4% Lidocaine Solution Depth: in the subcutaneous layer Percentage of wound debrided: 100 Instrument Used: 7mm curette Tissue Removed: biofilm over the wound surface Severity: Limited To Skin Breakdown Amount of bleeding with debridement: Mild Bleeding Controlled with: Compression and gauze Patient tolerated procedure: Patient tolerated procedure well Post-Debridement Measurements and Additional Note: Post-Debridement Measurements/Treatment HENRI - Nurse 1 - General Ulcer Assessment Start: 11/09/24 09:00 Freq: Status: Active Protocol: OBDULIA Activity Type Activity Date Activity User E-sign Co-sign Detail Recorded Client Recorded Date Recorded By Document 11/09/24 09:01 KW [id number] 11/09/24 09:06 11/09/24 09:01 WC - Today's Visit Information Type of service Follow-up Visit (Physician/UPHOLSTERY INSTRUCTOR ) Arrival Mode Ambulatory Accompanied by Patient Identification Verified (Name & Yes ) Vital Signs Temperature (97.8 F-99.1 F) 97.6 F L Temperature Source Temporal Pulse Rate (60-100) 78 Pulse Location Monitor Respiratory Rate (12-18) 18 Respiratory rate source Observation Oxygen Delivery Method Room Air Source Monitor Position Sitting Blood Pressure Location Right Arm History Since Last Visit- (Skip if this is Patient's initial visit) Have you changed medications since your No last visit? Any new allergies or adverse reactions No Had a fall/change in ADL's that may No increase risk of falls Signs or symptoms of abuse and/or No neglect since last visit Have you been in the hospital since your No last visit? Has dressing in place as prescribed Yes Has compression in place as prescribed N/A Has offloadiing in place as prescribed N/A Experienced any changes in pain level or No management Left Footwear Regular Shoe Right Footwear Regular Shoe Pain Scale: 0-10 Numeric Is Patient Pain Free? No WC - Nurse 1 - General Ulcer Measurement Start: 11/09/24 09:00 Freq: Status: Active Protocol: Activity Type Activity Date Activity User E-sign Co-sign Detail Recorded Client Recorded Date Recorded By Document 11/09/24 09:01 KW [id number] 11/09/24 09:06 11/09/24 09:01 Wound Center Nurse 1 1. ABD -Current Size (cm) - Length 6.8 -Current Size (cm) - Width 9 -Current Size (cm) - Depth 0.1 -Total Square Cm 61.2 -Date of Last Picture (Recall this 11/09/24 field) -Exudate Amt Medium -Exudate Type Serosanguineous -Wound Margin Distinct, Outline Attached -Granulation Amt Large (67-100%) -Granulation Quality Red -Texture (Lorenza-wound Skin Appearance) Assessed -Moisture (Lorenza-wound Skin Appearance) Assessed -Color (Lorenza-wound Skin Appearance) Assessed -Temperature (Lorenza-wound Skin No Abnormality Appearance) (Pt Warm) -Tenderness on Palpation (Lorenza-wound No Skin Appearance) -Ulcer Cleansing Soap and Water -Foul Odor after Cleansing No -Anesthetic Used 5% Lidocaine Gel - Nurse 2 - General Ulcer CM Notes Start: 11/09/24 09:00 Freq: Status: Active Protocol: Activity Type Activity Date Activity User E-sign Co-sign Detail Recorded Client Recorded Date Recorded By Document 11/09/24 09:12 MENA [id number] 11/09/24 09:13 MENA 11/09/24 09:12 Wound Center Nurse 2 -Time 09:13 -Correct Patient Yes -Correct Side, Site, Position Yes -Correct Procedure Yes -Procedure Performed Yes -Type of Procedure Debridement -Clinical Debridement Subcutaneous -Tissue Removed Subcutaneous -Post Debridement (cm) - Length 9.5 -Post Debridement (cm) - Width 6.5 -Post Debridement (cm) - Depth 0.1 -Total Square (Post) (cm) 61.75 -Area of Debridement (cm) - Length 9.5 -Area of Debridement (cm) - Width 6.5 -Total Square (Area) (cm) 61.75 -Tunneling No -Undermining/Tunneling No -Circular Undermining No -Wound/Ulcer Outcome Not Healed -Ulcer Cleansing Rinsed/ Irrigated with Saline -Foul Odor after Cleansing No -Bioengineered Tissue No -Bleeding Controlled with Pressure -Treatment Response Procedure Tolerated Well -Offloading No -Debridement - Subq, 1st 20sq cm Yes -Debridement, SubQ, ea addt'l 20sq cm 3 or part thereof Pain Scale: 0-10 Numeric Is Patient Pain Free? Yes - Nurse 3 - General Ulcer D/C NN Start: 11/09/24 09:00 Freq: Status: Active Protocol: Activity Type Activity Date Activity User E-sign Co-sign Detail Recorded Client Recorded Date Recorded By Document 11/09/24 09:31 SATISH [id number] 11/09/24 09:32 DL 11/09/24 09:31 Wound Care Center Nurse 3 1. ABD -Ulcer Cleansing Dakins -Primary Dressing Applied NonAdherent Contact Layer -Other Dressing Xeroform/ABD -Primary Dressing Covered/Secured with Secured with Tape Treatment Response Procedure Tolerated Well Pain Scale: 0-10 Numeric Is Patient Pain Free? Yes - Visit Discharge Discharge Condition Stable Ambulatory Status Ambulatory Transportation Private Auto Assessment/Plan Assessment/Plan (1) Nonhealing surgical wound: CODE(S): T81.89XA - Other complications of procedures, not elsewhere classified, initial encounter QUALIFIERS: Encounter type: initial encounter Qualified Code(s): T81.89XA - Other complications of procedures, not elsewhere classified, initial encounter PLAN: Wound cleaned today Continue dressing changes until hernia surgery (current wound care regimen) Patient will follow up as needed following hernia reconstruction Patient happy with the plan 11/09/24 1318 Cosigner Signature (if applicable): CC: ~ Signed [facility]07-14-2025 Progress note Author Efrain Hurtado [facility] Note Date/Time October 12, 2024 9:33 am [facility] [address] [place] [address] Progress Note - Wound Care 10/12/24 0929 MR#: [id number] Acct: [id number] Name: CORINNE CORREA Rep #:[id number] : 1950 74 From: Efrain Hurtado MD PCP: SON Amador Sta tus:REG RCR Location: History of Present Illness Date of Service: 10/12/24 Chief Complaint: Follow-up on his abdominal wound nonhealing since December History of Wound: Corinne Correa is a 74-year-old male who underwent an umbilicalhernia repair at [facility] in December 2023 and unfortunately 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 Through patient report, it was not discovered at the initial time of the hernia repair surgery and he subsequently required 3 surgeries for exploration of his abdomen and to fix the enterotomy site. Patient never had an ostomy. He had a prolonged hospital stay including prolonged intubation necessitating a tracheostomy (he has been decannulated for 1 week) and prolonged ICU admission followed by discharge to a halfway facility. 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 He has an adult daughter with 2 adult grandchildren. Patient has never had any bleeding or clotting problems (he is not on any blood thinner and has not had a blood clot). He is not a smoker. Patient is a diabetic with an A1c of 7.7 (earlier this month). His prealbumin is 24 and his albumin is 3.5. For wound care he has been doing dressing changes with Xeroform and has tried the wound VAC in the past. He has not had a CT scan recently and he has not hada biopsy of the wound. He has not been using an abdominal binder. Subjective Subjective 20 July 2024: Patient seen and examined by Dr. 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 He recommended that forcomplex reconstruction he be referred to Dr. Murry at the [facility] for aTAR/ventral hernia repair. If patient desires, could defer definitive reconstruction and perform skin graft for improved quality of life (no wound), but the ventral diastases would widen. Patient would like to pursue definitive reconstruction at the [facility]. Otherwise from a wound care standpoint there are no new issues today. 10 Aug 2024: Patient reports that he has is seeing a hernia specialist at the [facility] on 10 September 2024. He cannot get an earlier appointment. He was also considering [facility] but they do not have an earlier appointment either per his report. I suggested he may be considered a surgeon at [facility]. 31 August 2024: Doing well overall. Next week he will see [facility] for evaluation for closure of his large ventral abdominal defect. He has gotten the CT scan that Iordered into their system for evaluation. 14 September 2024: The patient is a 74-year-old male presenting with a ventral hernia and an abdominal wall wound. The ventral hernia measures approximately 15 x 20 cm and is located underneath the abdominal wall wound. The abdominal wall wound is currently 12 x 8 cm and is showing signs of healing, with thin abdominal fascia present. The patient is scheduled for a ventral hernia repair at [facility] on December 01. In the interim, wound care is being managed with saline cey-op-psqdt dressings, which are now recommended to be applied twice daily to promote healing. The patient has been advised to maintain a high-protein diet tosupport healing and prepare for the upcoming surgery. Attestation: Documentation on this patient encounter was supported using ambient scribe technology/ voice AI technology. The patient consented to recording for the purpose of documenting the encounter. Provider reviewed content of the generatednote prior to signature. Current Encounter, 12 October 2024: The patient is a 74-year-old male presenting with an abdominal wound. The wound measures approximately 11 x 9 cm and has been decreasing in size. Debridement isperformed with minimal bleeding, and biofilm removal is ongoing to aid healing. The patient is scheduled for a hernia repair on December 01. The surgical teamaims to ensure the abdominal wound is sufficiently healed to reduce infection risk before the procedure. The patient uses an abdominal binder for comfort and support. Attestation: Documentation on this patient encounter was supported using ambient scribe technology/ voice AI technology. The patient consented to recording for the purpose of documenting the encounter. Provider reviewed content of the generatednote prior to signature. Objective Data Objective Data Vital Signs: Vital Signs Temp Pulse Resp BP O2 Del Method 97.8 F 84 18 195/95 H Room Air 10/12/24 08:44 10/12/24 08:44 10/12/24 08:44 10/12/24 08:44 10/12/24 08:44 Oxygen Delivery Method Room Air Charges/Coding Procedures Integumentary 111xxx-113xx: 31647 Sera subq tissue 20 sq cm/< Add On Codes: 32314 Sera subq tissue add-on (x 4 units) Physical Exam Narrative - Abdominal examination: Wound measuring 11 x 9 cm, smaller in size, minimal bleeding on debridement Hernia examination: 15 x 20 cm ventral hernia noted Debridement Note Debridement Note Wound debrided: Abdominal wound, central Laterality: Not Applicable Wound Grade/Stage: Stage 3 Type of Debridement: Excisional debridement Anesthesia Used: 4% Lidocaine Solution Depth: in the subcutaneous layer Percentage of wound debrided: 100 Instrument Used: 7mm curette Tissue Removed: Fibrinous exudate, biofilm, and hypertrophic granulation tissue Severity: Fat Layer Exposed Amount of bleeding with debridement: Moderate Bleeding Controlled with: Compression and gauze Patient tolerated procedure: Patient tolerated procedure well Post-Debridement Measurements and Additional Note: Post-Debridement Measurements/Treatment - Nurse 1 - General Ulcer Assessment Start: 10/12/24 08:44 Freq: Status: Active Protocol: OBDULIA Activity Type Activity Date Activity User E-sign Co-sign Detail Recorded Client Recorded Date Recorded By Document 10/12/24 08:44 KW [id number] 10/12/24 08:45 KW 10/12/24 08:44 - Today's Visit Information Type of service Follow-up Visit (Physician/UPHOLSTERY INSTRUCTOR ) Arrival Mode Ambulatory Accompanied by Patient Identification Verified (Name & Yes ) Vital Signs Temperature (97.8 F-99.1 F) 97.8 F Temperature Source Temporal Pulse Rate (60-100) 84 Pulse Location Monitor Respiratory Rate (12-18) 18 Respiratory rate source Observation Oxygen Delivery Method Room Air Blood Pressure (90/60-120/80) 195/95 H Blood Pressure Mean (mm Hg) 128 Source Monitor Position Semi-Fowlers Blood Pressure Location Right Arm History Since Last Visit- (Skip if this is Patient's initial visit) Have you changed medications since your No last visit? Any new allergies or adverse reactions No Had a fall/change in ADL's that may No increase risk of falls Signs or symptoms of abuse and/or No neglect since last visit Have you been in the hospital since your No last visit? Has dressing in place as prescribed Yes Has compression in place as prescribed N/A Has offloadiing in place as prescribed N/A Experienced any changes in pain level or No management Left Footwear Regular Shoe Right Footwear Regular Shoe Pain Scale: 0-10 Numeric Is Patient Pain Free? Yes WC - Nurse 1 - General Ulcer Measurement Start: 10/12/24 08:44 Freq: Status: Active Protocol: Activity Type Activity Date Activity User E-sign Co-sign Detail Recorded Client Recorded Date Recorded By Document 10/12/24 08:44 KW [id number] 10/12/24 08:45 KW 10/12/24 08:44 Wound Center Nurse 1 1. ABD -Current Size (cm) - Length 8.5 -Current Size (cm) - Width 11.3 -Current Size (cm) - Depth 0.1 -Total Square Cm 96.05 -Date of Last Picture (Recall this 10/12/24 field) -Exudate Amt Medium -Exudate Type Serosanguineous -Wound Margin Distinct, Outline Attached -Granulation Amt Large (67-100%) -Granulation Quality Red -Texture (Lorenza-wound Skin Appearance) Assessed -Moisture (Lorenza-wound Skin Appearance) Assessed -Color (Lorenza-wound Skin Appearance) Assessed -Temperature (Lorenza-wound Skin No Abnormality Appearance) (Pt Warm) -Tenderness on Palpation (Lorenza-wound No Skin Appearance) -Ulcer Cleansing Soap and Water -Foul Odor after Cleansing No -Anesthetic Used 4% Lidocaine Solution HENRI - Nurse 2 - General Ulcer CM Notes Start: 10/12/24 08:44 Freq: Status: Active Protocol: Activity Type Activity Date Activity User E-sign Co-sign Detail Recorded Client Recorded Date Recorded By Document 10/12/24 09:02 KEO [id number] 10/12/24 09:08 KEO 10/12/24 09:02 Wound Center Nurse 2 -Time 09:03 -Correct Patient Yes -Correct Side, Site, Position Yes -Correct Procedure Yes -Procedure Performed Yes -Type of Procedure Incision & Drainage -Clinical Debridement Subcutaneous -Tissue Removed Subcutaneous -Post Debridement (cm) - Length 11.0 -Post Debridement (cm) - Width 9.0 -Post Debridement (cm) - Depth 0.1 -Total Square (Post) (cm) 99.00 -Area of Debridement (cm) - Length 11.0 -Area of Debridement (cm) - Width 9.0 -Total Square (Area) (cm) 99.00 -Tunneling No -Undermining/Tunneling No -Circular Undermining No -Wound/Ulcer Outcome Not Healed -Ulcer Cleansing Rinsed/ Irrigated with Saline -Foul Odor after Cleansing No -Bioengineered Tissue No -Bleeding Controlled with Pressure -Treatment Response Procedure Tolerated Well -Debridement - Subq, 1st 20sq cm Yes -Debridement, SubQ, ea addt'l 20sq cm 4 or part thereof Pain Scale: 0-10 Numeric Is Patient Pain Free? Yes - Nurse 3 - General Ulcer D/C NN Start: 10/12/24 08:44 Freq: Status: Active Protocol: Activity Type Activity Date Activity User E-sign Co-sign Detail Recorded Client Recorded Date Recorded By Document 10/12/24 09:15 STACEY [id number] 10/12/24 09:16 STACEY 10/12/24 09:15 Wound Care Center Nurse 3 1. ABD -Ulcer Cleansing dakins -Primary Dressing Applied NonAdherent Contact Layer -Other Dressing xeroform -Primary Dressing Covered/Secured with Dry Gauze, Secured with Tape Pain Scale: 0-10 Numeric Is Patient Pain Free? Yes - Visit Discharge Discharge Condition Stable Ambulatory Status Ambulatory Transportation Private Auto Medication Reconcilliation completed & No provided to patient/care provider Clinical Summary of Care Provided Yes Assessment/Plan Assessment/Plan (1) Nonhealing surgical wound: CODE(S): T81.89XA - Other complications of procedures, not elsewhere classified, initial encounter QUALIFIERS: Encounter type: initial encounter Qualified Code(s): T81.89XA - Other complications of procedures, not elsewhere classified, initial encounter (2) Hernia, ventral: CODE(S): K43.9 - Ventral hernia without obstruction or gangrene PLAN: Plan Assessment and Plan The 74-year-old male with a history of an abdominal wound is presenting for wound management and preparation for a hernia repair. The wound, measuring 11 x 9 cm, is showing signs of healing with reduced size and minimal bleeding during debridement. The surgical team is focused on ensuring the wound heals adequatelyto minimize infection risk before the scheduled hernia repair on December 01. 1. Abdominal Wound The plan is to continue with regular debridement to promote healing and reduce biofilm presence. The patient is advised to continue using the abdominal binder for support and comfort. Follow-up is scheduled in one month to assess wound healing progress and readiness for hernia repair. 2. Hernia The hernia repair is scheduled for December 01, contingent upon adequate healing of the abdominal wound to minimize infection risk. The surgical team will reassess the wound closer to the surgery date to ensure it is sufficiently healed. - Continue using the abdominal binder for support and comfort. - Attend follow-up appointment in one month to assess wound healing. - Maintain regular wound care as instructed by the healthcare team. 10/12/24932 <Electronically signed by Efrain Hurtado MD> Cosigner Signature (if applicable): CC: ~ Signed [facility] Work Phone: [phone] Progress note [facility] [address] [place] [address] Progress Note - Wound Care 10/12/24 0929 MR#: [id number] Acct: [id number] Name: CORINNE CORREA Rep #:[id number] : 1950 74 From: Efrain Hurtado MD PCP: SON Amador tus:REG RCR Location: History of Present Illness Date of Service: 10/12/24 Chief Complaint: Follow-up on his abdominal wound nonhealing since December History of Wound: Corinne Correa is a 74-year-old male who underwent an umbilicalhernia repair at [facility] in December 2023 and unfortunately 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 Patient never had an ostomy. He had a prolonged hospital stay including prolonged intubation necessitating a tracheostomy (he has been decannulated for 1 week) and prolonged ICU admission followed by discharge to a halfway facility. 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 He has an adult daughter with 2 adult grandchildren. Patient has never had any bleeding or clotting problems (he is not on any blood thinner and has nothad a blood clot). He is not a smoker. Patient is a diabetic with an A1c of 7.7 (earlier this month). His prealbumin is 24 and his albumin is 3.5. For wound care he has been doing dressing changes with Xeroform and has tried the wound VAC in the past. He has not had a CT scan recently and he has not hada biopsy of the wound. He has not been using an abdominal binder. Subjective Subjective 20 July 2024: Patient seen and examined by Dr. 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 He recommended that forcomplex reconstruction he be referred to Dr. Murry at the [facility] for aTAR/ventral hernia repair. If patient desires, could defer definitive reconstruction and perform skin graft for improved quality of life (no wound), but the ventral diastases would widen. Patient would like to pursue definitive reconstruction at the [facility]. Otherwise from a wound care standpoint there are no new issues today. 10 Aug 2024: Patient reports that he has is seeing a hernia specialist at the [facility] on 10 September 2024. He cannot get an earlier appointment. He was also considering [facility] but they do not have an earlier appointment either per his report. I suggested he may be considered a surgeon at [facility]. 31 August 2024: Doing well overall. Next week he will see [facility] for evaluation for closure of his large ventral abdominal defect. He has gotten the CT scan that Iordered into their system for evaluation. 14 September 2024: The patient is a 74-year-old male presenting with a ventral hernia and an abdominal wall wound. Theventral hernia measures approximately 15 x 20 cm and is located underneath the abdominal wall wound. The abdominal wall wound is currently 12 x 8 cm and is showing signs of healing, with thin abdominal fascia present. The patient is scheduled for a ventral hernia repair at [facility] on December 01. In the interim, wound care is being managed with saline [id number] dressings, which are now recommended tarun applied twice daily to promote healing. The patient has been advised to maintain a high-protein diet tosupport healing and prepare for the upcoming surgery. Attestation: Documentation on this patient encounter was supported using ambient scribe technology/ voice AI technology. The patient consented to recording for the purpose of documenting the encounter. Provider reviewed content of the generatednote prior to signature. Current Encounter, 12 October 2024: The patient is a 74-year-old male presenting with an abdominal wound. The wound measures approximately 11 x 9 cm and has been decreasing in size. Debridement isperformed with minimal bleeding, and biofilm removal is ongoing to aid healing. The patient is scheduled for a hernia repair on December 01. The surgical teamaims to ensure the abdominal wound is sufficiently healed to reduce infection risk before the procedure. The patient uses an abdominal binder for comfort and support. Attestation: Documentation on this patient encounter was supported using ambient scribe technology/ voice AI technology. The patient consented to recording for the purpose of documenting the encounter. Provider reviewed content of the generatednote prior to signature. Objective Data Objective Data Vital Signs: Vital Signs Temp Pulse Resp BP O2 Del Method 97.8 F 84 18 195/95 H Room Air 10/12/24 08:44 10/12/24 08:44 10/12/24 08:44 10/12/24 08:44 10/12/24 08:44 Oxygen Delivery Method Room Air Charges/Coding Procedures Integumentary 111xxx-113xx: 61975 Sera subq tissue 20 sq cm/< Add On Codes: 24182 Sera subq tissue add-on (x 4 units) Physical Exam Narrative - Abdominal examination: Wound measuring 11 x 9 cm, smaller in size, minimal bleeding on debridement Hernia examination: 15 x 20 cm ventral hernia noted Debridement Note Debridement Note Wound debrided: Abdominal wound, central Laterality: Not Applicable Wound Grade/Stage: Stage 3 Type of Debridement: Excisional debridement Anesthesia Used: 4% Lidocaine Solution Depth: in the subcutaneous layer Percentage of wound debrided: 100 Instrument Used: 7mm curette Tissue Removed: Fibrinous exudate, biofilm, and hypertrophic granulation tissue Severity: Fat Layer Exposed Amount of bleeding with debridement: Moderate Bleeding Controlled with: Compression and gauze Patient tolerated procedure: Patient tolerated procedure well Post-Debridement Measurements and Additional Note: Post-Debridement Measurements/Treatment HENRI - Nurse 1 - General Ulcer Assessment Start: 10/12/24 08:44 Freq: Status: Active Protocol: OBDULIA Activity Type Activity Date Activity User E-sign Co-sign Detail Recorded Client Recorded Date Recorded By Document 10/12/24 08:44 KW [id number] 10/12/24 08:45 10/12/24 08:44 - Today's Visit Information Type of service Follow-up Visit (Physician/UPHOLSTERY INSTRUCTOR ) Arrival Mode Ambulatory Accompanied by Patient Identification Verified (Name & Yes ) Vital Signs Temperature (97.8 F-99.1 F) 97.8 F Temperature Source Temporal Pulse Rate (60-100) 84 Pulse Location Monitor Respiratory Rate (12-18) 18 Respiratory rate source Observation Oxygen Delivery Method Room Air Blood Pressure (90/60-120/80) 195/95 H Blood Pressure Mean (mm Hg) 128 Source Monitor Position Semi-Fowlers Blood Pressure Location Right Arm History Since Last Visit- (Skip if this is Patient's initial visit) Have you changed medications since your No last visit? Any new allergies or adverse reactions No Had a fall/change in ADL's that may No increase risk of falls Signs or symptoms of abuse and/or No neglect since last visit Have you been in the hospital since your No last visit? Has dressing in place as prescribed Yes Has compression in place as prescribed N/A Has offloadiing in place as prescribed N/A Experienced any changes in pain level or No management Left Footwear Regular Shoe Right Footwear Regular Shoe Pain Scale: 0-10 Numeric Is Patient Pain Free? Yes - Nurse 1 - General Ulcer Measurement Start: 10/12/24 08:44 Freq: Status: Active Protocol: Activity Type Activity Date Activity User E-sign Co-sign Detail Recorded Client Recorded Date Recorded By Document 10/12/24 08:44 KW [id number] 10/12/24 08:45 10/12/24 08:44 Wound Center Nurse 1 1. ABD -Current Size (cm) - Length 8.5 -Current Size (cm) - Width 11.3 -Current Size (cm) - Depth 0.1 -Total Square Cm 96.05 -Date of Last Picture (Recall this 10/12/24 field) -Exudate Amt Medium -Exudate Type Serosanguineous -Wound Margin Distinct, Outline Attached -Granulation Amt Large (67-100%) -Granulation Quality Red -Texture (Lorenza-wound Skin Appearance) Assessed -Moisture (Lorenza-wound Skin Appearance) Assessed -Color (Lorenza-wound Skin Appearance) Assessed -Temperature (Lorenza-wound Skin No Abnormality Appearance) (Pt Warm) -Tenderness on Palpation (Lorenza-wound No Skin Appearance) -Ulcer Cleansing Soap and Water -Foul Odor after Cleansing No -Anesthetic Used 4% Lidocaine Solution HENRI - Nurse 2 - General Ulcer CM Notes Start: 10/12/24 08:44 Freq: Status: Active Protocol: Activity Type Activity Date Activity User E-sign Co-sign Detail Recorded Client Recorded Date Recorded By Document 10/12/24 09:02 KEO [id number] 10/12/24 09:08 KEO 10/12/24 09:02 Wound Center Nurse 2 -Time 09:03 -Correct Patient Yes -Correct Side, Site, Position Yes -Correct Procedure Yes -Procedure Performed Yes -Type of Procedure Incision & Drainage -Clinical Debridement Subcutaneous -Tissue Removed Subcutaneous -Post Debridement (cm) - Length 11.0 -Post Debridement (cm) - Width 9.0 -Post Debridement (cm) - Depth 0.1 -Total Square (Post) (cm) 99.00 -Area of Debridement (cm) - Length 11.0 -Area of Debridement (cm) - Width 9.0 -Total Square (Area) (cm) 99.00 -Tunneling No -Undermining/Tunneling No -Circular Undermining No -Wound/Ulcer Outcome Not Healed -Ulcer Cleansing Rinsed/ Irrigated with Saline -Foul Odor after Cleansing No -Bioengineered Tissue No -Bleeding Controlled with Pressure -Treatment Response Procedure Tolerated Well -Debridement - Subq, 1st 20sq cm Yes -Debridement, SubQ, ea addt'l 20sq cm 4 or part thereof Pain Scale: 0-10 Numeric Is Patient Pain Free? Yes HENRI - Nurse 3 - General Ulcer D/C NN Start: 10/12/24 08:44 Freq: Status: Active Protocol: Activity Type Activity Date Activity User E-sign Co-sign Detail Recorded Client Recorded Date Recorded By Document 10/12/24 09:15 KW [id number] 10/12/24 09:16 KW 10/12/24 09:15 Wound Care Center Nurse 3 1. ABD -Ulcer Cleansing dakins -Primary Dressing Applied NonAdherent Contact Layer -Other Dressing xeroform -Primary Dressing Covered/Secured with Dry Gauze, Secured with Tape Pain Scale: 0-10 Numeric Is Patient Pain Free? Yes WC - Visit Discharge Discharge Condition Stable Ambulatory Status Ambulatory Transportation Private Auto Medication Reconcilliation completed & No provided to patient/care provider Clinical Summary of Care Provided Yes Assessment/Plan Assessment/Plan (1) Nonhealing surgical wound: CODE(S): T81.89XA - Other complications of procedures, not elsewhere classified, initial encounter QUALIFIERS: Encounter type: initial encounter Qualified Code(s): T81.89XA - Other complications of procedures, not elsewhere classified, initial encounter (2) Hernia, ventral: CODE(S): K43.9 - Ventral hernia without obstruction or gangrene PLAN: Plan Assessment and Plan The 74-year-old male with a history of an abdominal wound is presenting for wound management and preparation for a hernia repair. The wound, measuring 11 x 9 cm, is showing signs of healing with reduced size and minimal bleeding during debridement. The surgical team is focused on ensuring the woundheals adequatelyto minimize infection risk before the scheduled hernia repair on December 01. 1. Abdominal Wound The plan is to continue with regular debridement to promote healing and reduce biofilm presence. The patient is advised to continue using the abdominal binder for support and comfort. Follow-up is scheduled in one month to assess wound healing progress and readiness for hernia repair. 2. Hernia The hernia repair is scheduled for December 01, contingent upon adequate healing of the abdominalwound to minimize infection risk. The surgical team will reassess the wound closer to the surgery date to ensure it is sufficiently healed. - Continue using the abdominal binder for support and comfort. - Attend follow-up appointment in one month to assess wound healing. - Maintain regular wound care as instructed by the healthcare team. 10/12/2489 Cosigner Signature (if applicable): CC: ~ Signed [facility]06-16-2025 Progress note Author Efrain Hurtado [facility] Note Date/Time September 14, 2024 9:33 am [facility] [address] [place] [address] Progress Note - Wound Care 09/14/24 0930 MR#: [id number] Acct: [id number] Name: CORINNE CORREA Rep #:[id number] : 1950 74 From: Efrain Hurtado MD PCP: Kelley Hernandez, BIODIESEL PRODUCTION TECHNICIANMarielaC Sta tus:REG RCR Location: History of Present Illness Date of Service: 09/14/24 Chief Complaint: Follow-up on his abdominal wound nonhealing since December History of Wound: Corinne Correa is a 74-year-old male who underwent an umbilicalhernia repair at [facility] in December 2023 and unfortunately 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 Through patient report, it was not discovered at the initial time of the hernia repair surgery and he subsequently required 3 surgeries for exploration of his abdomen and to fix the enterotomy site. Patient never had an ostomy. He had a prolonged hospital stay including prolonged intubation necessitating a tracheostomy (he has been decannulated for 1 week) and prolonged ICU admission followed by discharge to a halfway facility. 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 He has an adult daughter with 2 adult grandchildren. Patient has never had any bleeding or clotting problems (he is not on any blood thinner and has not had a blood clot). He is not a smoker. Patient is a diabetic with an A1c of 7.7 (earlier this month). His prealbumin is 24 and his albumin is 3.5. For wound care he has been doing dressing changes with Xeroform and has tried the wound VAC in the past. He has not had a CT scan recently and he has not hada biopsy of the wound. He has not been using an abdominal binder. Subjective Subjective 20 July 2024: Patient seen and examined by Dr. 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 He recommended that forcomplex reconstruction he be referred to Dr. Murry at the [facility] for aTAR/ventral hernia repair. If patient desires, could defer definitive reconstruction and perform skin graft for improved quality of life (no wound), but the ventral diastases would widen. Patient would like to pursue definitive reconstruction at the [facility]. Otherwise from a wound care standpoint there are no new issues today. 10 Aug 2024: Patient reports that he has is seeing a hernia specialist at the [facility] on 10 September 2024. He cannot get an earlier appointment. He was also considering [facility] but they do not have an earlier appointment either per his report. I suggested he may be considered a surgeon at [facility]. 31 August 2024: Doing well overall. Next week he will see [facility] for evaluation for closure of his large ventral abdominal defect. He has gotten the CT scan that Iordered into their system for evaluation. CURRENT ENCOUNTER,14 September 2024: The patient is a 74-year-old male presenting with a ventral hernia and an abdominal wall wound. The ventral hernia measures approximately 15 x 20 cm and is located underneath the abdominal wall wound. The abdominal wall wound is currently 12 x 8 cm and is showing signs of healing, with thin abdominal fascia present. The patient is scheduled for a ventral hernia repair at [facility] on December 01. In the interim, wound care is being managed with saline [id number] dressings, which are now recommended to be applied twice daily to promote healing. The patient has been advised to maintain a high-protein diet tosupport healing and prepare for the upcoming surgery. Attestation: Documentation on this patient encounter was supported using ambient scribe technology/ voice AI technology. The patient consented to recording for the purpose of documenting the encounter. Provider reviewed content of the generatednote prior to signature. Objective Data Objective Data Vital Signs: Vital Signs Temp Pulse Resp BP 97.8 F 83 16 173/98 H 09/14/24 08:16 09/14/24 08:16 09/14/24 08:16 09/14/24 08:16 Charges/Coding Procedures Integumentary 111xxx-113xx: 33597 Sera subq tissue 20 sq cm/< Add On Codes: 45148 Sera subq tissue add-on (x4 units ) Physical Exam Narrative - Abdominal examination: 12 x 8 cm abdominal wall wound with thin abdominal fascia - Hernia examination: 15 x 20 cm ventral hernia noted Debridement Note Debridement Note Wound debrided: Abdominal wound, central Laterality: Not Applicable Wound Grade/Stage: Stage III Type of Debridement: Excisional debridement Anesthesia Used: 4% Lidocaine Solution Depth: in the subcutaneous layer Percentage of wound debrided: 100 Instrument Used: 7mm curette Tissue Removed: Necrotic fibrinous exudate and biofilm Severity: Fat Layer Exposed Amount of bleeding with debridement: Moderate Bleeding Controlled with: Compression and gauze Patient tolerated procedure: Patient tolerated procedure well Post-Debridement Measurements and Additional Note: Post-Debridement Measurements/Treatment HENRI - Nurse 1 - General Ulcer Assessment Start: 08/31/24 08:33 Freq: Status: Active Protocol: OBDULIA Activity Type Activity Date Activity User E-sign Co-sign Detail Recorded Client Recorded Date Recorded By Document 08/31/24 08:33 ML [id number] 08/31/24 08:40 ML Document 09/14/24 08:16 DL [id number] 09/14/24 08:21 DL 08/31/24 09/14/24 08:33 08:16 HENRI - Today's Visit Information Type of service Follow-up Visit Follow-up Visit (Physician/UPHOLSTERY INSTRUCTOR (Physician/UPHOLSTERY INSTRUCTOR ) ) Arrival Mode Ambulatory Ambulatory Transfer Assistance None Manual Patient Identification Verified (Name & Yes Yes ) Patient Requires Transmission-Based No No Precautions Finger Stick Blood Sugar(mg/dl) (if 167 indicated): Blood Sugar Stated by Patient Vital Signs Temperature (97.8 F-99.1 F) 97.3 F L 97.8 F Temperature Source Temporal Oral Pulse Rate (60-100) 94 83 Pulse Location Monitor Monitor Respiratory Rate (12-18) 14 16 Respiratory rate source Observation Monitor Blood Pressure (90/60-120/80) 171/83 H 173/98 H Blood Pressure Mean (mm Hg) 112 123 Source Monitor Monitor History Since Last Visit- (Skip if this is Patient's initial visit) Have you changed medications since your No No last visit? Any new allergies or adverse reactions No Had a fall/change in ADL's that may No No increase risk of falls Signs or symptoms of abuse and/or No No neglect since last visit Have you been in the hospital since your No No last visit? Has dressing in place as prescribed Yes Yes Has compression in place as prescribed N/A N/A Has offloadiing in place as prescribed N/A N/A Experienced any changes in pain level or No No management Pain Scale: 0-10 Numeric Is Patient Pain Free? Yes Yes HENRI - Nurse 1 - General Ulcer Measurement Start: 08/31/24 08:33 Freq: Status: Active Protocol: Activity Type Activity Date Activity User E-sign Co-sign Detail Recorded Client Recorded Date Recorded By Document 08/31/24 08:33 ML [id number] 08/31/24 08:40 ML Document 09/14/24 08:16 DL [id number] 09/14/24 08:21 DL 08/31/24 09/14/24 08:33 08:16 Wound Center Nurse 1 1. ABD -Current Size (cm) - Length 11.5 8.5 -Current Size (cm) - Width 15 12.2 -Current Size (cm) - Depth 0.1 0.1 -Total Square Cm 172.5 103.70 -Photo Taken Yes -Exudate Amt Medium Medium -Exudate Type Serosanguineous Serosanguineous -Wound Margin Distinct, Distinct, Outline Outline Attached Attached -Granulation Amt Medium (34-66%) Large (67-100%) -Granulation Quality [place]ad[place],Red -Slough/Fibrin Yes -Necrosis Amt Small (1-33%) None Present (0 %) -Structure Exposed N/A -Texture (Lorenza-wound Skin Appearance) Assessed Scarring -Moisture (Lorenza-wound Skin Appearance) No Abnormality -Color (Lorenza-wound Skin Appearance) Assessed No Abnormality -Temperature (Lorenza-wound Skin No Abnormality No Abnormality Appearance) (Pt Warm) (Pt Warm) -Tenderness on Palpation (Lorenza-wound No Skin Appearance) -Ulcer Cleansing Soap and Water Soap and Water -Foul Odor after Cleansing No No -Anesthetic Used 4% Lidocaine 4% Lidocaine Solution Solution - Nurse 2 - General Ulcer CM Notes Start: 08/31/24 08:33 Freq: Status: Active Protocol: Activity Type Activity Date Activity User E-sign Co-sign Detail Recorded Client Recorded Date Recorded By Document 08/31/24 09:13 DS [id number] 08/31/24 09:14 DS Document 09/14/24 08:59 DS [id number] 09/14/24 09:00 DS 08/31/24 09/14/24 09:13 08:59 Wound Center Nurse 2 1. ABD -Time 09:13 08:59 -Correct Patient Yes Yes -Correct Side, Site, Position Yes Yes -Correct Procedure Yes Yes -Procedure Performed Yes Yes -Type of Procedure Debridement Debridement -Clinical Debridement Subcutaneous Subcutaneous -Tissue Removed Subcutaneous Subcutaneous -Post Debridement (cm) - Length 10.0 12.0 -Post Debridement (cm) - Width 15.0 8.0 -Post Debridement (cm) - Depth 0.1 0.1 -Total Square (Post) (cm) 150.00 96.00 -Area of Debridement (cm) - Length 10 12.0 -Area of Debridement (cm) - Width 15 8.0 -Total Square (Area) (cm) 150 96.00 -Tunneling No No -Undermining/Tunneling No No -Circular Undermining No No -Wound/Ulcer Outcome Not Healed Not Healed -Ulcer Cleansing Rinsed/ Rinsed/ Irrigated with Irrigated with Saline Saline -Foul Odor after Cleansing No No -Bioengineered Tissue No No -Bleeding Controlled with Pressure Pressure -Treatment Response Procedure Procedure Tolerated Well Tolerated Well -Debridement - Subq, 1st 20sq cm Yes Yes -Debridement, SubQ, ea addt'l 20sq cm 7 4 or part thereof Pain Scale: 0-10 Numeric Is Patient Pain Free? Yes Yes - Nurse 3 - General Ulcer D/C NN Start: 08/31/24 08:33 Freq: Status: Active Protocol: Activity Type Activity Date Activity User E-sign Co-sign Detail Recorded Client Recorded Date Recorded By Document 08/31/24 09:31 [id number] 08/31/24 09:32 Document 09/14/24 09:10 [id number] 09/14/24 09:11 08/31/24 09/14/24 09:31 09:10 Wound Care Center Nurse 3 1. ABD -Ulcer Cleansing Rinsed/ Rinsed/ Irrigated with Irrigated with Saline Saline -Foul Odor after Cleansing No No -Negative Pressure Wound Therapy N/A -Other Dressing saline gauze moist saline gauze -Primary Dressing Covered/Secured with Dry Gauze, Secured with Secured with Tape Tape -Other Covering ABD Treatment Response Procedure Tolerated Well Pain Scale: 0-10 Numeric Is Patient Pain Free? Yes Yes - Visit Discharge Discharge Condition Stable Stable Ambulatory Status Ambulatory Transportation Private Auto Private Auto Accompanied by Medication Reconcilliation completed & Yes provided to patient/care provider Clinical Summary of Care Provided Yes Assessment/Plan Assessment/Plan (1) Nonhealing surgical wound: CODE(S): T81.89XA - Other complications of procedures, not elsewhere classified, initial encounter QUALIFIERS: Encounter type: initial encounter Qualified Code(s): T81.89XA - Other complications of procedures, not elsewhere classified, initial encounter (2) Hernia, ventral: CODE(S): K43.9 - Ventral hernia without obstruction or gangrene PLAN: Plan I gave him strict return precautions including signs and symptoms of fistula formation or severe breakdown. Follow-up in 2 weeks after he has had his consultation at [facility]. Patient happy with the plan 1. Ventral hernia The patient is scheduled for surgical repair at [facility] on December 01. Until then, wound care will continue with saline pbf-yi-lcpcy dressings applied twice daily to promote healing. The patient is advised to maintain a high-protein diet to support recovery and prepare for surgery. - Continue saline cua-sy-fqbfe dressings twice daily to promote wound healing. - Maintain a high-protein diet, including eggs and chicken, to support healing and prepare for surgery. - Follow up in four weeks or sooner if there are any concerns. 09/14/24 0933 <Electronically signed by Efrain Hurtado MD> Cosigner Signature (if applicable): CC: ~ Signed [facility] Work Phone: [phone] Progress note [facility] [address] [place] [address] Progress Note - Wound Care 09/14/24 0930 MR#: [id number] Acct: [id number] Name: CORINNE CORREA Rep #:[id number] : 1950 74 From: Efrain Hurtado MD PCP: SON Amador tus:REG RCR Location: History of Present Illness Date of Service: 09/14/24 Chief Complaint: Follow-up on his abdominal wound nonhealing since December History of Wound: Corinne Correa is a 74-year-old male who underwent an umbilicalhernia repair at [facility] in December 2023 and unfortunately 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 Patient never had an ostomy. He had a prolonged hospital stay including prolonged intubation necessitating a tracheostomy (he has been decannulated for 1 week) and prolonged ICU admission followed by discharge to a halfway facility. 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 He has an adult daughter with 2 adult grandchildren. Patient has never had any bleeding or clotting problems (he is not on any blood thinner and has nothad a blood clot). He is not a smoker. Patient is a diabetic with an A1c of 7.7 (earlier this month). His prealbumin is 24 and his albumin is 3.5. For wound care he has been doing dressing changes with Xeroform and has tried the wound VAC in the past. He has not had a CT scan recently and he has not hada biopsy of the wound. He has not been using an abdominal binder. Subjective Subjective 20 July 2024: Patient seen and examined by Dr. 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 He recommended that forcomplex reconstruction he be referred to Dr. Murry at the [facility] for aTAR/ventral hernia repair. If patient desires, could defer definitive reconstruction and perform skin graft for improved quality of life (no wound), but the ventral diastases would widen. Patient would like to pursue definitive reconstruction at the [facility]. Otherwise from a wound care standpoint there are no new issues today. 10 Aug 2024: Patient reports that he has is seeing a hernia specialist at the [facility] on 10 September 2024. He cannot get an earlier appointment. He was also considering [facility] but they do not have an earlier appointment either per his report. I suggested he may be considered a surgeon at [facility]. 31 August 2024: Doing well overall. Next week he will see [facility] for evaluation for closure of his large ventral abdominal defect. He has gotten the CT scan that Iordered into their system for evaluation. CURRENT ENCOUNTER,14 September 2024: The patient is a 74-year-old male presenting with a ventral hernia and an abdominal wall wound. Theventral hernia measures approximately 15 x 20 cm and is located underneath the abdominal wall wound. The abdominal wall wound is currently 12 x 8 cm and is showing signs of healing, with thin abdominal fascia present. The patient is scheduled for a ventral hernia repair at [facility] on December 01. In the interim, wound care is being managed with saline utj-qu-igzcb dressings, which are now recommended tarun applied twice daily to promote healing. The patient has been advised to maintain a high-protein diet tosupport healing and prepare for the upcoming surgery. Attestation: Documentation on this patient encounter was supported using ambient scribe technology/ voice AI technology. The patient consented to recording for the purpose of documenting the encounter. Provider reviewed content of the generatednote prior to signature. Objective Data Objective Data Vital Signs: Vital Signs Temp Pulse Resp BP 97.8 F 83 16 173/98 H 09/14/24 08:16 09/14/24 08:16 09/14/24 08:16 09/14/24 08:16 Charges/Coding Procedures Integumentary 111xxx-113xx: 90953 Sera subq tissue 20 sq cm/< Add On Codes: 51780 Sera subq tissue add-on (x4 units ) Physical Exam Narrative - Abdominal examination: 12 x 8 cm abdominal wall wound with thin abdominal fascia - Hernia examination: 15 x 20 cm ventral hernia noted Debridement Note Debridement Note Wound debrided: Abdominal wound, central Laterality: Not Applicable Wound Grade/Stage: Stage III Type of Debridement: Excisional debridement Anesthesia Used: 4% Lidocaine Solution Depth: in the subcutaneous layer Percentage of wound debrided: 100 Instrument Used: 7mm curette Tissue Removed: Necrotic fibrinous exudate and biofilm Severity: Fat Layer Exposed Amount of bleeding with debridement: Moderate Bleeding Controlled with: Compression and gauze Patient tolerated procedure: Patient tolerated procedure well Post-Debridement Measurements and Additional Note: Post-Debridement Measurements/Treatment - Nurse 1 - General Ulcer Assessment Start: 08/31/24 08:33 Freq: Status: Active Protocol: HENRI.RENITA Activity Type Activity Date Activity User E-sign Co-sign Detail Recorded Client Recorded Date Recorded By Document 08/31/24 08:33 ML [id number] 08/31/24 08:40 ML Document 09/14/24 08:16 DL [id number] 09/14/24 08:21 DL 08/31/24 09/14/24 08:33 08:16 - Today's Visit Information Type of service Follow-up Visit Follow-up Visit (Physician/UPHOLSTERY INSTRUCTOR (Physician/UPHOLSTERY INSTRUCTOR ) ) Arrival Mode Ambulatory Ambulatory Transfer Assistance None Manual Patient Identification Verified (Name & Yes Yes ) Patient Requires Transmission-Based No No Precautions Finger Stick Blood Sugar(mg/dl) (if 167 indicated): Blood Sugar Stated by Patient Vital Signs Temperature (97.8 F-99.1 F) 97.3 F L 97.8 F Temperature Source Temporal Oral Pulse Rate (60-100) 94 83 Pulse Location Monitor Monitor Respiratory Rate (12-18) 14 16 Respiratory rate source Observation Monitor Blood Pressure (90/60-120/80) 171/83 H 173/98 H Blood Pressure Mean (mm Hg) 112 123 Source Monitor Monitor History Since Last Visit- (Skip if this is Patient's initial visit) Have you changed medications since your No No last visit? Any new allergies or adverse reactions No Had a fall/change in ADL's that may No No increase risk of falls Signs or symptoms of abuse and/or No No neglect since last visit Have you been in the hospital since your No No last visit? Has dressing in place as prescribed Yes Yes Has compression in place as prescribed N/A N/A Has offloadiing in place as prescribed N/A N/A Experienced any changes in pain level or No No management Pain Scale: 0-10 Numeric Is Patient Pain Free? Yes Yes WC - Nurse 1 - General Ulcer Measurement Start: 08/31/24 08:33 Freq: Status: Active Protocol: Activity Type Activity Date Activity User E-sign Co-sign Detail Recorded Client Recorded Date Recorded By Document 08/31/24 08:33 ML [id number] 08/31/24 08:40 ML Document 09/14/24 08:16 DL [id number] 09/14/24 08:21 DL 08/31/24 09/14/24 08:33 08:16 Wound Center Nurse 1 1. ABD -Current Size (cm) - Length 11.5 8.5 -Current Size (cm) - Width 15 12.2 -Current Size (cm) - Depth 0.1 0.1 -Total Square Cm 172.5 103.70 -Photo Taken Yes -Exudate Amt Medium Medium -Exudate Type Serosanguineous Serosanguineous -Wound Margin Distinct, Distinct, Outline Outline Attached Attached -Granulation Amt Medium (34-66%) Large (67-100%) -Granulation Quality [place]ad[place],Red -Slough/Fibrin Yes -Necrosis Amt Small (1-33%) None Present (0 %) -Structure Exposed N/A -Texture (Lorenza-wound Skin Appearance) Assessed Scarring -Moisture (Lorenza-wound Skin Appearance) No Abnormality -Color (Lorenza-wound Skin Appearance) Assessed No Abnormality -Temperature (Lorenza-wound Skin No Abnormality No Abnormality Appearance) (Pt Warm) (Pt Warm) -Tenderness on Palpation (Lorenza-wound No Skin Appearance) -Ulcer Cleansing Soap and Water Soap and Water -Foul Odor after Cleansing No No -Anesthetic Used 4% Lidocaine 4% Lidocaine Solution Solution - Nurse 2 - General Ulcer CM Notes Start: 08/31/24 08:33 Freq: Status: Active Protocol: Activity Type Activity Date Activity User E-sign Co-sign Detail Recorded Client Recorded Date Recorded By Document 08/31/24 09:13 DS [id number] 08/31/24 09:14 DS Document 09/14/24 08:59 DS [id number] 09/14/24 09:00 DS 08/31/24 09/14/24 09:13 08:59 Wound Center Nurse 2 1. ABD -Time 09:13 08:59 -Correct Patient Yes Yes -Correct Side, Site, Position Yes Yes -Correct Procedure Yes Yes -Procedure Performed Yes Yes -Type of Procedure Debridement Debridement -Clinical Debridement Subcutaneous Subcutaneous -Tissue Removed Subcutaneous Subcutaneous -Post Debridement (cm) - Length 10.0 12.0 -Post Debridement (cm) - Width 15.0 8.0 -Post Debridement (cm) - Depth 0.1 0.1 -Total Square (Post) (cm) 150.00 96.00 -Area of Debridement (cm) - Length 10 12.0 -Area of Debridement (cm) - Width 15 8.0 -Total Square (Area) (cm) 150 96.00 -Tunneling No No -Undermining/Tunneling No No -Circular Undermining No No -Wound/Ulcer Outcome Not Healed Not Healed -Ulcer Cleansing Rinsed/ Rinsed/ Irrigated with Irrigated with Saline Saline -Foul Odor after Cleansing No No -Bioengineered Tissue No No -Bleeding Controlled with Pressure Pressure -Treatment Response Procedure Procedure Tolerated Well Tolerated Well -Debridement - Subq, 1st 20sq cm Yes Yes -Debridement, SubQ, ea addt'l 20sq cm 7 4 or part thereof Pain Scale: 0-10 Numeric Is Patient Pain Free? Yes Yes - Nurse 3 - General Ulcer D/C NN Start: 08/31/24 08:33 Freq: Status: Active Protocol: Activity Type Activity Date Activity User E-sign Co-sign Detail Recorded Client Recorded Date Recorded By Document 08/31/24 09:31 JF [id number] 08/31/24 09:32 Document 09/14/24 09:10 DL [id number] 09/14/24 09:11 DL 08/31/24 09/14/24 09:31 09:10 Wound Care Center Nurse 3 1. ABD -Ulcer Cleansing Rinsed/ Rinsed/ Irrigated with Irrigated with Saline Saline -Foul Odor after Cleansing No No -Negative Pressure Wound Therapy N/A -Other Dressing saline gauze moist saline gauze -Primary Dressing Covered/Secured with Dry Gauze, Secured with Secured with Tape Tape -Other Covering ABD Treatment Response Procedure Tolerated Well Pain Scale: 0-10 Numeric Is Patient Pain Free? Yes Yes WC - Visit Discharge Discharge Condition Stable Stable Ambulatory Status Ambulatory Transportation Private Auto Private Auto Accompanied by Medication Reconcilliation completed & Yes provided to patient/care provider Clinical Summary of Care Provided Yes Assessment/Plan Assessment/Plan (1) Nonhealing surgical wound: CODE(S): T81.89XA - Other complications of procedures, not elsewhere classified, initial encounter QUALIFIERS: Encounter type: initial encounter Qualified Code(s): T81.89XA - Other complications of procedures, not elsewhere classified, initial encounter (2) Hernia, ventral: CODE(S): K43.9 - Ventral hernia without obstruction or gangrene PLAN: Plan I gave him strict return precautions including signs and symptoms of fistula formation or severe breakdown. Follow-up in 2 weeks after he has had his consultation at [facility]. Patient happy with the plan 1. Ventral hernia The patient is scheduled for surgical repair at [facility] on December 01. Until then, wound care will continue with saline ref-ps-sekkr dressings applied twice daily to promote healing. The patient is advised to maintain a high-protein diet to support recovery and prepare for surgery. - Continue saline omh-cf-meowg dressings twice daily to promote wound healing. - Maintain a high-protein diet, including eggs and chicken, to support healing and prepare for surgery. - Follow up in four weeks or sooner if there are any concerns. 09/14/24 0986 Cosigner Signature (if applicable): CC: ~ Signed [facility]06-12-2025 NoteHNO ID: [id number] Author: AUGIE PERSAUD MD Service: ? Author Type: Physician Type: Progress Notes Filed: 09/10/2024 11:28 Note Text: Consultation requested by Dr. Dean for an opinion regarding abdominal bulge. My final recommendations will be communicated back to the requesting physician by way of shared medical record or letter via US mail. Corinne Correa is a 74 year old male who presents with a large abdominal bulge after a robotic umbilical hernia repair complicated by a duodenal injury, reoperation, mesh explantation, open abdomen all culminating in a several months hospital stay at the end of last year. He has almost healed his wound but not entirely so we'll wait another 6-8 weeks and then schedule him for a definitive TAR. Not interested in RECOVER. Augie Persaud MD I have seen and evaluated the patient and discussed the case with the resident physician. I agree with the assessment and plan as documented in the resident?s note including a ROS that was reviewed and negative other than what was indicated in our notes. Patient consented for study? No: [facility] History of Present illness Narrative* Augie Persaud MD - 09/10/2024 11:26 AM EDT Consultation requested by Dr. Dean for an opinion regarding abdominal bulge. My final recommendations will be communicated back to the requesting physician by way of shared medical record or letter via [place] mail. Corinne Correa is a 74 year old male who presents with a large abdominal bulge after a robotic umbilical hernia repair complicated by a duodenal injury, reoperation, mesh explantation, open abdomen all culminating in a several months hospital stay at the end of last year. He has almost healed his wound but not entirely so we'll wait another 6-8 weeks and then schedule him for a definitive TAR. Notinterested in RECOVER. Augie Persaud MD I have seen and evaluated the patient and discussed the case with the resident physician. I agree with the assessment and plan as documented in the resident s note including a ROS that was reviewed and negative other than what was indicated in our notes. \ Patient consented for study? No: Patient declined * Sunil Interiano MA - 09/10/2024 9:59 AM EDT What is the reason for your visit today? Consult Who is your referring physician? Dr. Persaud Are you having poor oral intake? NO Have you had unintentional weight loss of 15 lbs/7 Kg in the last 3-6 months? YES Bowels: regular Wound: clean & dry Temperature: No Drains: [facility] History and physical note * Bryson Olvera MD - 09/10/2024 10:00 AM EDT Images from the original note were not included. [facility] Abdominal [facility] - HISTORY AND PHYSICAL Chief Complaint: Complex ventral hernia HPI: Corinne Correa is a 74 year old male with a PMH significant for HTN, HLD, hypothyroid, T2DM, and complicated surgical history of robotic umbilical hernia repair in Dec 2023 at [facility] c/b duodenal perforation c/b prolonged intubation/ sedation and possible open abdomen during that time as patient notes he had a wound vac in place. He presents with a complex ventral hernia and is seeking recommendations for repair. Relevant previous operations include: robotic assisted umbilical hernia repair, ex lap x3 No prior belly surgeries before the hernia surgery Partially dependent No employment Sporadic (once/month) Hypertension, Diabetes Mellitus History of component separation, History of open abdomen Abdominal hernia not necessarily causing pain. Can feel it with activity, wears abdominal binder. No concern of bowel obstruction. No past medical history on file. No past surgical history on file. Social History Tobacco Use Smoking status: Former Types: Cigarettes Smokeless tobacco: Never Additional social history not relevant to the patient's HPI No family history on file. Additional family history not relevant to the patient's HPI ALLERGIES Not on File Current Outpatient Medications Medication Sig Dispense Refill atorvastatin (LIPITOR) 20 mg tablet 20 mg. metoprolol succinate ER (TOPROL XL) 25 mg 24 hr tablet 25 mg. metFORMIN (GLUCOPHAGE) 1,000 mg tablet 1,000 mg. semaglutide (OZEMPIC) 1 mg/dose (4 mg/3 mL) pen 1 mg. metoprolol tartrate, short acting, (LOPRESSOR) 25 mg tablet Take 25 mg by mouth every morning. No current facility-administered medications for this visit. REVIEW OF SYSTEMS GENERAL: No weight loss, malaise or fevers. RESPIRATORY: Negative for cough, hemoptysis, wheezing, COPD, dyspnea or shortness of breath CARDIOVASCULAR: Negative for chest pain, leg swelling, hypertension, CHF or palpitations GI: No nausea, vomiting, or diarrhea MUSCULOSKELETAL: Negative for joint pain or swelling, back pain or muscle pain SKIN: Endorses raw skin/ healing wound overlying hernia The remainder of the 12 review of systems is negative other than what was mentioned in the HPI and above. BP 153/68 Pulse 90 Temp 36.3 C (97.4 F) (Temporal) Ht 177.8 cm (5' 10) Wt 109.3 kg (241 lb) BMI 34.58 kg/m Physical Exam Constitutional: The patient is well-developed, well-nourished, and in no distress. Cardiovascular: Regular rhythm and normal heart sounds. Pulmonary/Chest: Effort normal and breath sounds normal. Abdominal: Soft. Mildly distended, appropriately tender. Large midline ventral hernia. Musculoskeletal: Normal range of motion. Neurological: He is alert. GCS score is 15. Skin: Skin is warm and dry. Healing skin overlying hernia site with serous drainage. Psychiatric: Affect and judgment normal. Relevant Hernia Findings - large ventral hernia with overlying healing skin IMAGING - Reviewed with staff CT A/P at [facility]SH 07/13/24 Thinning of the anterior abdominal wall with bulging of the anterior abdomen Assessment: Corinne Correa is a 74 year old male who presents with complex, large ventral hernia Plan: - Continue wound care of hernia site - Ventral hernia repair with mesh, planned for ~2+ months out to allow for additional healing of skin Bryson Olvera MD General Surgery, PGY1 Hernia Surgery Service Pager: [phone] (Mickey) & [phone](Virgilio) [facility] Work Phone: 1(420) 324-897506-12-2025 History and physical note* Bryson Olvera MD - 09/10/2024 10:00 AM EDT Images from the original note were not included. [facility] - HISTORY AND PHYSICAL Chief Complaint: Complex ventral hernia HPI: Corinne Correa is a 74 year old male with a PMH significant for HTN, HLD, hypothyroid, T2DM, and complicated surgical history of robotic umbilical hernia repair in Dec 2023 at [facility] c/b duodenal perforation c/b prolonged intubation/ sedation and possible open abdomen during that time as patient notes he had a wound vac in place. He presents with a complex ventral hernia and is seeking recommendations for repair. Relevant previous operations include: robotic assisted umbilical hernia repair, ex lap x3 No prior belly surgeries before the hernia surgery Partially dependent No employment Sporadic (once/month) Hypertension, Diabetes Mellitus History of component separation, History of open abdomen Abdominal hernia not necessarily causing pain. Can feel it with activity, wears abdominal binder. No concern of bowel obstruction. No past medical history on file. No past surgical history on file. Social History Tobacco Use Smoking status: Former Types: Cigarettes Smokeless tobacco: Never Additional social history not relevant to the patient's HPI No family history on file. Additional family history not relevant to the patient's HPI ALLERGIES Not on File Current Outpatient Medications Medication Sig Dispense Refill atorvastatin (LIPITOR) 20 mg tablet 20 mg. metoprolol succinate ER (TOPROL XL) 25 mg 24 hr tablet 25 mg. metFORMIN (GLUCOPHAGE) 1,000 mg tablet 1,000 mg. semaglutide (OZEMPIC) 1 mg/dose (4 mg/3 mL) pen 1 mg. metoprolol tartrate, short acting, (LOPRESSOR) 25 mg tablet Take 25 mg by mouth every morning. No current facility-administered medications for this visit. REVIEW OF SYSTEMS GENERAL: No weight loss, malaise or fevers. RESPIRATORY: Negative for cough, hemoptysis, wheezing, COPD, dyspnea or shortness of breath CARDIOVASCULAR: Negative for chest pain, leg swelling, hypertension, CHF or palpitations GI: No nausea, vomiting, or diarrhea MUSCULOSKELETAL: Negative for joint pain or swelling, back pain or muscle pain SKIN: Endorses raw skin/ healing wound overlying hernia The remainder of the 12 review of systems is negative other than what was mentioned in the HPI and above. BP 153/68 Pulse 90 Temp 36.3 C (97.4 F) (Temporal) Ht 177.8 cm (5' 10) Wt 109.3 kg (241 lb) BMI 34.58 kg/m Physical Exam Constitutional: The patient is well-developed, well-nourished, and in no distress. Cardiovascular: Regular rhythm and normal heart sounds. Pulmonary/Chest: Effort normal and breath sounds normal. Abdominal: Soft. Mildly distended, appropriately tender. Large midline ventral hernia. Musculoskeletal: Normal range of motion. Neurological: He is alert. GCS score is 15. Skin: Skin is warm and dry. Healing skin overlying hernia site with serous drainage. Psychiatric: Affect and judgment normal. Relevant Hernia Findings - large ventral hernia with overlying healing skin IMAGING - Reviewed with staff CT A/P at OSH 07/13/24 Thinning of the anterior abdominal wall with bulging of the anterior abdomen Assessment: Corinne Correa is a 74 year old male who presents with complex, large ventral hernia Plan: - Continue wound care of hernia site - Ventral hernia repair with mesh, planned for ~2+ months out to allow for additional healing of skin Bryson Olvrea MD General Surgery, PGY1 Hernia Surgery Service Pager: [phone] (Mickey) & [phone](Virgilio) [facility] NoteHNO ID: [id number] Author: SUNIL INTERIANO MA Service: ? Author Type: Deputy Sheriff Type: Progress Notes Filed: 09/10/2024 11:28 Note Text: What is the reason for your visit today? Consult Who is your referring physician? Dr. Persaud Are you having poor oral intake? NO Have you had unintentional weight loss of 15 lbs/7 Kg in the last 3-6 months? YES Bowels: regular Wound: clean AND dry Temperature: No Drains: [facility]06-02-2025 Progress note Author Efrain Hurtado [facility] Note Date/Time August 31, 2024 11:38 am [facility] [address] [place] [address] Progress Note - Wound Care 08/31/24 1135 MR#: [id number] Acct: [id number] Name: CORINNE CORREA Rep #:[id number] : 1950 74 From: Efrain Hurtado MD PCP: SON Amador tus:REG RCR Location: History of Present Illness Date of Service: 08/31/24 Chief Complaint: Follow-up on his abdominal wound nonhealing since December History of Wound: Corinne Correa is a 74-year-old male who underwent an umbilicalhernia repair at [facility] in December 2023 and unfortunately 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 Through patient report, it was not discovered at the initial time of the hernia repair surgery and he subsequently required 3 surgeries for exploration of his abdomen and to fix the enterotomy site. Patient never had an ostomy. He had a prolonged hospital stay including prolonged intubation necessitating a tracheostomy (he has been decannulated for 1 week) and prolonged ICU admission followed by discharge to a halfway facility. 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 He has an adult daughter with 2 adult grandchildren. Patient has never had any bleeding or clotting problems (he is not on any blood thinner and has not had a blood clot). He is not a smoker. Patient is a diabetic with an A1c of 7.7 (earlier this month). His prealbumin is 24 and his albumin is 3.5. For wound care he has been doing dressing changes with Xeroform and has tried the wound VAC in the past. He has not had a CT scan recently and he has not hada biopsy of the wound. He has not been using an abdominal binder. Subjective Subjective 20 July 2024: Patient seen and examined by Dr. 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 He recommended that forcomplex reconstruction he be referred to Dr. Murry at the [facility] for aTAR/ventral hernia repair. If patient desires, could defer definitive reconstruction and perform skin graft for improved quality of life (no wound), but the ventral diastases would widen. Patient would like to pursue definitive reconstruction at the [facility]. Otherwise from a wound care standpoint there are no new issues today. 10 Aug 2024: Patient reports that he has is seeing a hernia specialist at the [facility] on 10 September 2024. He cannot get an earlier appointment. He was also considering [facility] but they do not have an earlier appointment either per his report. I suggested he may be considered a surgeon at [facility]. CURRENT ENCOUNTER, 31 August 2024: Doing well overall. Next week he will see [facility] for evaluation for closure of his large ventral abdominal defect. He has gotten the CT scan that Iordered into their system for evaluation. Objective Data Objective Data Vital Signs: Vital Signs Temp Pulse Resp BP 97.3 F L 94 14 171/83 H 08/31/24 08:33 08/31/24 08:33 08/31/24 08:33 08/31/24 08:33 Charges/Coding Procedures Integumentary 111xxx-113xx: 07214 Sera subq tissue 20 sq cm/< Add On Codes: 88900 Sera subq tissue add-on (x7 units ) Physical Exam Narrative Abdomen: ~10 x 15 cm granulating central abdominal wound. 0.1 cm deep. no exposed mesh. No surrounding induration. There is loss of domain centrally with large diastases that is approximately ~15 cm wide and ~20 cm tall. PHOTOS FROM 13 July 2024 Debridement Note Debridement Note Wound debrided: Central abdominal wound Laterality: Not Applicable Wound Grade/Stage: Stage III Type of Debridement: Excisional debridement Anesthesia Used: 4% Lidocaine Solution Depth: in the subcutaneous layer Percentage of wound debrided: 100 Instrument Used: 7mm curette Tissue Removed: Necrotic debris and fibrinous exudate and biofilm Severity: Fat Layer Exposed Amount of bleeding with debridement: Moderate Bleeding Controlled with: Compression and gauze Patient tolerated procedure: Patient tolerated procedure well Post-Debridement Measurements and Additional Note: Post-Debridement Measurements/Treatment - Nurse 1 - General Ulcer Assessment Start: 08/31/24 08:33 Freq: Status: Active Protocol: OBDULIA Activity Type Activity Date Activity User E-sign Co-sign Detail Recorded Client Recorded Date Recorded By Document 08/31/24 08:33 ML [id number] 08/31/24 08:40 ML 08/31/24 08:33 - Today's Visit Information Type of service Follow-up Visit (Physician/UPHOLSTERY INSTRUCTOR ) Arrival Mode Ambulatory Transfer Assistance None Patient Identification Verified (Name & Yes ) Patient Requires Transmission-Based No Precautions Finger Stick Blood Sugar(mg/dl) (if 167 indicated): Blood Sugar Stated by Patient Vital Signs Temperature (97.8 F-99.1 F) 97.3 F L Temperature Source Temporal Pulse Rate (60-100) 94 Pulse Location Monitor Respiratory Rate (12-18) 14 Respiratory rate source Observation Blood Pressure (90/60-120/80) 171/83 H Blood Pressure Mean (mm Hg) 112 Source Monitor History Since Last Visit- (Skip if this is Patient's initial visit) Have you changed medications since your No last visit? Any new allergies or adverse reactions No Had a fall/change in ADL's that may No increase risk of falls Signs or symptoms of abuse and/or No neglect since last visit Have you been in the hospital since your No last visit? Has dressing in place as prescribed Yes Has compression in place as prescribed N/A Has offloadiing in place as prescribed N/A Experienced any changes in pain level or No management Pain Scale: 0-10 Numeric Is Patient Pain Free? Yes WC - Nurse 1 - General Ulcer Measurement Start: 08/31/24 08:33 Freq: Status: Active Protocol: Activity Type Activity Date Activity User E-sign Co-sign Detail Recorded Client Recorded Date Recorded By Document 08/31/24 08:33 ML [id number] 08/31/24 08:40 ML 08/31/24 08:33 Wound Center Nurse 1 1. ABD -Current Size (cm) - Length 11.5 -Current Size (cm) - Width 15 -Current Size (cm) - Depth 0.1 -Total Square Cm 172.5 -Exudate Amt Medium -Exudate Type Serosanguineous -Wound Margin Distinct, Outline Attached -Granulation Amt Medium (34-66%) -Granulation Quality [place] -Slough/Fibrin Yes -Necrosis Amt Small (1-33%) -Texture (Lorenza-wound Skin Appearance) Assessed -Color (Lorenza-wound Skin Appearance) Assessed -Temperature (Lorenza-wound Skin No Abnormality Appearance) (Pt Warm) -Tenderness on Palpation (Lorenza-wound No Skin Appearance) -Ulcer Cleansing Soap and Water -Foul Odor after Cleansing No -Anesthetic Used 4% Lidocaine Solution WC - Nurse 2 - General Ulcer CM Notes Start: 08/31/24 08:33 Freq: Status: Active Protocol: Activity Type Activity Date Activity User E-sign Co-sign Detail Recorded Client Recorded Date Recorded By Document 08/31/24 09:13 DS [id number] 08/31/24 09:14 DS 08/31/24 09:13 Wound Center Nurse 2 -Time 09:13 -Correct Patient Yes -Correct Side, Site, Position Yes -Correct Procedure Yes -Procedure Performed Yes -Type of Procedure Debridement -Clinical Debridement Subcutaneous -Tissue Removed Subcutaneous -Post Debridement (cm) - Length 10.0 -Post Debridement (cm) - Width 15.0 -Post Debridement (cm) - Depth 0.1 -Total Square (Post) (cm) 150.00 -Area of Debridement (cm) - Length 10 -Area of Debridement (cm) - Width 15 -Total Square (Area) (cm) 150 -Tunneling No -Undermining/Tunneling No -Circular Undermining No -Wound/Ulcer Outcome Not Healed -Ulcer Cleansing Rinsed/ Irrigated with Saline -Foul Odor after Cleansing No -Bioengineered Tissue No -Bleeding Controlled with Pressure -Treatment Response Procedure Tolerated Well -Debridement - Subq, 1st 20sq cm Yes -Debridement, SubQ, ea addt'l 20sq cm 7 or part thereof Pain Scale: 0-10 Numeric Is Patient Pain Free? Yes - Nurse 3 - General Ulcer D/C NN Start: 08/31/24 08:33 Freq: Status: Active Protocol: Activity Type Activity Date Activity User E-sign Co-sign Detail Recorded Client Recorded Date Recorded By Document 08/31/24 09:31 MENA [id number] 08/31/24 09:32 JF 08/31/24 09:31 Wound Care Center Nurse 3 1. ABD -Ulcer Cleansing Rinsed/ Irrigated with Saline -Foul Odor after Cleansing No -Negative Pressure Wound Therapy N/A -Other Dressing saline gauze -Primary Dressing Covered/Secured with Dry Gauze, Secured with Tape Pain Scale: 0-10 Numeric Is Patient Pain Free? Yes WC - Visit Discharge Discharge Condition Stable Transportation Private Auto Accompanied by Medication Reconcilliation completed & Yes provided to patient/care provider Clinical Summary of Care Provided Yes Assessment/Plan Assessment/Plan (1) Nonhealing surgical wound: CODE(S): T81.89XA - Other complications of procedures, not elsewhere classified, initial encounter QUALIFIERS: Encounter type: initial encounter Qualified Code(s): T81.89XA - Other complications of procedures, not elsewhere classified, initial encounter (2) Hernia, ventral: CODE(S): K43.9 - Ventral hernia without obstruction or gangrene PLAN: Plan Patient has a hernia specialist appointment per recommendation from Dr. Renteria (appreciate recommendations from general surgery). Continue binder as needed and adjust if it is needed for binder. Daily saline wet to moist dressings for now We discussed the risks, benefits, and alternatives to skin graft for improved quality of life. We talked about skin graft failure. We talked about risk of bleeding, infection, and damage to surrounding structures. Patient understandsthe risks and benefits and will consider them when he discusses full abdominal wall reconstruction versus skin grafting with general surgery. I gave him strict return precautions including signs and symptoms of fistula formation or severe breakdown. Follow-up in 2 weeks after he has had his consultation at [facility]. Patient happy with the plan 08/31/24 1138 <Electronically signed by Efrain Hurtado MD> Cosigner Signature (if applicable): CC: ~ Signed [facility] Work Phone: 1(296) 325-414106-02-2025 Progress note [facility] [address] [place] [address] Progress Note - Wound Care 08/31/24 1135 MR#: [id number] Acct: [id number] Name: CORINNE CORREA Rep #:[id number] : 1950 74 From: Efrain Hurtado MD PCP: SON Amador tus:REG RCR Location: History of Present Illness Date of Service: 08/31/24 Chief Complaint: Follow-up on his abdominal wound nonhealing since December History of Wound: Corinne Correa is a 74-year-old male who underwent an umbilicalhernia repair at [facility] in December 2023 and unfortunately 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 Patient never had an ostomy. He had a prolonged hospital stay including prolonged intubation necessitating a tracheostomy (he has been decannulated for 1 week) and prolonged ICU admission followed by discharge to a halfway facility. 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 He has an adult daughter with 2 adult grandchildren. Patient has never had any bleeding or clotting problems (he is not on any blood thinner and has nothad a blood clot). He is not a smoker. Patient is a diabetic with an A1c of 7.7 (earlier this month). His prealbumin is 24 and his albumin is 3.5. For wound care he has been doing dressing changes with Xeroform and has tried the wound VAC in the past. He has not had a CT scan recently and he has not hada biopsy of the wound. He has not been using an abdominal binder. Subjective Subjective 20 July 2024: Patient seen and examined by Dr. 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 He recommended that forcomplex reconstruction he be referred to Dr. Murry at the [facility] for aTAR/ventral hernia repair. If patient desires, could defer definitive reconstruction and perform skin graft for improved quality of life (no wound), but the ventral diastases would widen. Patient would like to pursue definitive reconstruction at the [facility]. Otherwise from a wound care standpoint there are no new issues today. 10 Aug 2024: Patient reports that he has is seeing a hernia specialist at the [facility] on 10 September 2024. He cannot get an earlier appointment. He was also considering [facility] but they do not have an earlier appointment either per his report. I suggested he may be considered a surgeon at [facility]. CURRENT ENCOUNTER, 31 August 2024: Doing well overall. Next week he will see [facility] for evaluation for closure of his large ventral abdominal defect. He has gotten the CT scan that Iordered into their system for evaluation. Objective Data Objective Data Vital Signs: Vital Signs Temp Pulse Resp BP 97.3 F L 94 14 171/83 H 08/31/24 08:33 08/31/24 08:33 08/31/24 08:33 08/31/24 08:33 Charges/Coding Procedures Integumentary 111xxx-113xx: 99024 Sera subq tissue 20 sq cm/< Add On Codes: 90779 Sera subq tissue add-on (x7 units ) Physical Exam Narrative Abdomen: ~10 x 15 cm granulating central abdominal wound. 0.1 cm deep. no exposed mesh. No surrounding induration. There is loss of domain centrally with large diastases that is approximately ~15 cm wide and ~20 cm tall. PHOTOS FROM 13 July 2024 Debridement Note Debridement Note Wound debrided: Central abdominal wound Laterality: Not Applicable Wound Grade/Stage: Stage III Type of Debridement: Excisional debridement Anesthesia Used: 4% Lidocaine Solution Depth: in the subcutaneous layer Percentage of wound debrided: 100 Instrument Used: 7mm curette Tissue Removed: Necrotic debris and fibrinous exudate and biofilm Severity: Fat Layer Exposed Amount of bleeding with debridement: Moderate Bleeding Controlled with: Compression and gauze Patient tolerated procedure: Patient tolerated procedure well Post-Debridement Measurements and Additional Note: Post-Debridement Measurements/Treatment WC - Nurse 1 - General Ulcer Assessment Start: 08/31/24 08:33 Freq: Status: Active Protocol: OBDULIA Activity Type Activity Date Activity User E-sign Co-sign Detail Recorded Client Recorded Date Recorded By Document 08/31/24 08:33 ML [id number] 08/31/24 08:40 ML 08/31/24 08:33 WC - Today's Visit Information Type of service Follow-up Visit (Physician/UPHOLSTERY INSTRUCTOR ) Arrival Mode Ambulatory Transfer Assistance None Patient Identification Verified (Name & Yes ) Patient Requires Transmission-Based No Precautions Finger Stick Blood Sugar(mg/dl) (if 167 indicated): Blood Sugar Stated by Patient Vital Signs Temperature (97.8 F-99.1 F) 97.3 F L Temperature Source Temporal Pulse Rate (60-100) 94 Pulse Location Monitor Respiratory Rate (12-18) 14 Respiratory rate source Observation Blood Pressure (90/60-120/80) 171/83 H Blood Pressure Mean (mm Hg) 112 Source Monitor History Since Last Visit- (Skip if this is Patient's initial visit) Have you changed medications since your No last visit? Any new allergies or adverse reactions No Had a fall/change in ADL's that may No increase risk of falls Signs or symptoms of abuse and/or No neglect since last visit Have you been in the hospital since your No last visit? Has dressing in place as prescribed Yes Has compression in place as prescribed N/A Has offloadiing in place as prescribed N/A Experienced any changes in pain level or No management Pain Scale: 0-10 Numeric Is Patient Pain Free? Yes - Nurse 1 - General Ulcer Measurement Start: 08/31/24 08:33 Freq: Status: Active Protocol: Activity Type Activity Date Activity User E-sign Co-sign Detail Recorded Client Recorded Date Recorded By Document 08/31/24 08:33 ML [id number] 08/31/24 08:40 ML 08/31/24 08:33 Wound Center Nurse 1 1. ABD -Current Size (cm) - Length 11.5 -Current Size (cm) - Width 15 -Current Size (cm) - Depth 0.1 -Total Square Cm 172.5 -Exudate Amt Medium -Exudate Type Serosanguineous -Wound Margin Distinct, Outline Attached -Granulation Amt Medium (34-66%) -Granulation Quality [place] -Slough/Fibrin Yes -Necrosis Amt Small (1-33%) -Texture (Lorenza-wound Skin Appearance) Assessed -Color (Lorenza-wound Skin Appearance) Assessed -Temperature (Lorenza-wound Skin No Abnormality Appearance) (Pt Warm) -Tenderness on Palpation (Lorenza-wound No Skin Appearance) -Ulcer Cleansing Soap and Water -Foul Odor after Cleansing No -Anesthetic Used 4% Lidocaine Solution - Nurse 2 - General Ulcer CM Notes Start: 08/31/24 08:33 Freq: Status: Active Protocol: Activity Type Activity Date Activity User E-sign Co-sign Detail Recorded Client Recorded Date Recorded By Document 08/31/24 09:13 DS [id number] 08/31/24 09:14 DS 08/31/24 09:13 Wound Center Nurse 2 -Time 09:13 -Correct Patient Yes -Correct Side, Site, Position Yes -Correct Procedure Yes -Procedure Performed Yes -Type of Procedure Debridement -Clinical Debridement Subcutaneous -Tissue Removed Subcutaneous -Post Debridement (cm) - Length 10.0 -Post Debridement (cm) - Width 15.0 -Post Debridement (cm) - Depth 0.1 -Total Square (Post) (cm) 150.00 -Area of Debridement (cm) - Length 10 -Area of Debridement (cm) - Width 15 -Total Square (Area) (cm) 150 -Tunneling No -Undermining/Tunneling No -Circular Undermining No -Wound/Ulcer Outcome Not Healed -Ulcer Cleansing Rinsed/ Irrigated with Saline -Foul Odor after Cleansing No -Bioengineered Tissue No -Bleeding Controlled with Pressure -Treatment Response Procedure Tolerated Well -Debridement - Subq, 1st 20sq cm Yes -Debridement, SubQ, ea addt'l 20sq cm 7 or part thereof Pain Scale: 0-10 Numeric Is Patient Pain Free? Yes WC - Nurse 3 - General Ulcer D/C NN Start: 08/31/24 08:33 Freq: Status: Active Protocol: Activity Type Activity Date Activity User E-sign Co-sign Detail Recorded Client Recorded Date Recorded By Document 08/31/24 09:31 MENA [id number] 08/31/24 09:32 MENA 08/31/24 09:31 Wound Care Center Nurse 3 1. ABD -Ulcer Cleansing Rinsed/ Irrigated with Saline -Foul Odor after Cleansing No -Negative Pressure Wound Therapy N/A -Other Dressing saline gauze -Primary Dressing Covered/Secured with Dry Gauze, Secured with Tape Pain Scale: 0-10 Numeric Is Patient Pain Free? Yes WC - Visit Discharge Discharge Condition Stable Transportation Private Auto Accompanied by Medication Reconcilliation completed & Yes provided to patient/care provider Clinical Summary of Care Provided Yes Assessment/Plan Assessment/Plan (1) Nonhealing surgical wound: CODE(S): T81.89XA - Other complications of procedures, not elsewhere classified, initial encounter QUALIFIERS: Encounter type: initial encounter Qualified Code(s): T81.89XA - Other complications of procedures, not elsewhere classified, initial encounter (2) Hernia, ventral: CODE(S): K43.9 - Ventral hernia without obstruction or gangrene PLAN: Plan Patient has a hernia specialist appointment per recommendation from Dr. Renteria (appreciate recommendations from general surgery). Continue binder as needed and adjust if it is needed for binder. Daily saline wet to moist dressings for now We discussed the risks, benefits, and alternatives to skin graft for improved quality of life. We talked about skin graft failure. We talked about risk of bleeding, infection, and damage to surrounding structures. Patient understandsthe risks and benefits and will consider them when he discusses full abdominal wall reconstruction versus skin grafting with general surgery. I gave him strict return precautions including signs and symptoms of fistula formation or severe breakdown. Follow-up in 2 weeks after he has had his consultation at [facility]. Patient happy with the plan 08/31/24 5160 Cosigner Signature (if applicable): CC: ~ Signed [facility]05-27-2025 Telephone encounter Note* Telephone Encounter - Spencer Reno LPN - 08/25/2024 3:41 PM EDT Contacted [facility] spoke with Tanja. Advised of the following Imaging push needed for upcoming appointment: 07/13/2024--CT A/P Tanja to have pushed via PACS to [facility], will monitor for Images with [facility]. Fax Request Sent to [facility] for the following Operative Reports: --Operative Rpts Abd Sx's Fax Receipt Confirmation @ 14:02pm, will monitor for Reports and have scanned into chart once received. Spencer Reno LPN [facility]05-27-2025 Miscellaneous Notes* Telephone Encounter - Spencer Reno LPN - 08/25/2024 3:41 PM EDT Contacted [facility] spoke with Tanja. Advised of the following Imaging push needed for upcoming appointment: 07/13/2024--CT A/P Tanja to have pushed via PACS to [facility], will monitor for Images with [facility]. Fax Request Sent to [facility] for the following Operative Reports: --Operative Rpts Abd Sx's Fax Receipt Confirmation @ 14:02pm, will monitor for Reports and have scanned into chart once received. Spencer Reno LPN [facility] Progress note Author Efrain Hurtado [facility] Note Date/Time August 10, 2024 9:57a m [facility] [address] [place] [address] Progress Note - Wound Care 08/10/24 0804 MR#: [id number] Acct: [id number] Name: CORINNE CORREA Rep #:[id number] : 1950 74 From: Efrain Hurtado MD PCP: Kelley Hernandez [employer] PRODUCTION TECHNICIANMarielaC Willie tus:REG RCR Location: History of Present Illness Date of Service: 08/10/24 Chief Complaint: Follow-up on his abdominal wound nonhealing since December History of Wound: Corinne Correa is a 74-year-old male who underwent an umbilicalhernia repair at [facility] in December 2023 and unfortunately 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 Through patient report, it was not discovered at the initial time of the hernia repair surgery and he subsequently required 3 surgeries for exploration of his abdomen and to fix the enterotomy site. Patient never had an ostomy. He had a prolonged hospital stay including prolonged intubation necessitating a tracheostomy (he has been decannulated for 1 week) and prolonged ICU admission followed by discharge to a halfway facility. 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 He has an adult daughter with 2 adult grandchildren. Patient has never had any bleeding or clotting problems (he is not on any blood thinner and has not had a blood clot). He is not a smoker. Patient is a diabetic with an A1c of 7.7 (earlier this month). His prealbumin is 24 and his albumin is 3.5. For wound care he has been doing dressing changes with Xeroform and has tried the wound VAC in the past. He has not had a CT scan recently and he has not hada biopsy of the wound. He has not been using an abdominal binder. Subjective Subjective 20 July 2024: Patient seen and examined by Dr. 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 He recommended that forcomplex reconstruction he be referred to Dr. Murry at the [facility] for aTAR/ventral hernia repair. If patient desires, could defer definitive reconstruction and perform skin graft for improved quality of life (no wound), but the ventral diastases would widen. Patient would like to pursue definitive reconstruction at the [facility]. Otherwise from a wound care standpoint there are no new issues today. CURRENT ENCOUNTER, 10 Aug 2024: Patient reports that he has is seeing a hernia specialist at the [facility] on 10 September 2024. He cannot get an earlier appointment. He was also considering [facility] but they do not have an earlier appointment either per his report. I suggested he may be considered a surgeon at [facility]. Objective Data Objective Data Vital Signs: Vital Signs Temp Pulse Resp BP 97.6 F L 96 18 187/90 H 07/30/24 00:44 07/30/24 00:44 07/30/24 00:44 07/30/24 00:44 Charges/Coding Procedures Integumentary 111xxx-113xx: 57342 Sera subq tissue 20 sq cm/< Add On Codes: 15551 Sera subq tissue add-on (x13) Physical Exam Narrative Abdomen: ~18 x 15 cm granulating central abdominal wound. 0.1 cm deep. no exposed mesh. No surrounding induration. There is loss of domain centrally with large diastases that is approximately ~15 cm wide and ~20 cm tall. PHOTOS FROM 13 July 2024 Debridement Note Debridement Note Wound debrided: Abdominal wound Laterality: Not Applicable (Central) Wound Grade/Stage: Stage III Type of Debridement: Excisional debridement Anesthesia Used: 4% Lidocaine Solution Depth: in the subcutaneous layer Percentage of wound debrided: 100 Instrument Used: 7mm curette Tissue Removed: Necrotic biofilm and fibrinous debris at fat level Severity: Limited To Skin Breakdown Amount of bleeding with debridement: Moderate Bleeding Controlled with: Compression and gauze Patient tolerated procedure: Patient tolerated procedure well Assessment/Plan Assessment/Plan (1) Nonhealing surgical wound: CODE(S): T81.89XA - Other complications of procedures, not elsewhere classified, initial encounter QUALIFIERS: Encounter type: initial encounter Qualified Code(s): T81.89XA - Other complications of procedures, not elsewhere classified, initial encounter (2) Hernia, ventral: CODE(S): K43.9 - Ventral hernia without obstruction or gangrene PLAN: Plan Patient has a hernia specialist appointment per recommendation from Dr. Renteria (appreciate recommendations from general surgery). Continue binder as needed and adjust if it is needed for binder. Twice daily Xeroform dressing changes for now. We discussed the risks, benefits, and alternatives to skin graft for improved quality of life. We talked about skin graft failure. We talked about risk of bleeding, infection, and damage to surrounding structures. Patient understandsthe risks and benefits and will consider them when he discusses full abdominal wall reconstruction versus skin grafting with general surgery. I gave him strict return precautions including signs and symptoms of fistula formation or severe breakdown. Patient happy with the plan follow-up in 3 weeks. 08/10/24 0957 <Electronically signed by Efrain Hurtado MD> Cosigner Signature (if applicable): CC: ~ Signed [facility] Work Phone: 1(715) 142-244505-12-2025 Progress note [facility] [address] [place] [address] Progress Note - Wound Care 08/10/24 0804 MR#: [id number] Acct: [id number] Name: CORINNE CORREA Rep #:[id number] : 1950 74 From: Efrain Hurtado MD PCP: SON Amador tus:JUVE SINCLAIRR Location: History of Present Illness Date of Service: 08/10/24 Chief Complaint: Follow-up on his abdominal wound nonhealing since December History of Wound: Corinne Correa is a 74-year-old male who underwent an umbilicalhernia repair at [facility] in December 2023 and unfortunately 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 Patient never had an ostomy. He had a prolonged hospital stay including prolonged intubation necessitating a tracheostomy (he has been decannulated for 1 week) and prolonged ICU admission followed by discharge to a halfway facility. 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 He has an adult daughter with 2 adult grandchildren. Patient has never had any bleeding or clotting problems (he is not on any blood thinner and has nothad a blood clot). He is not a smoker. Patient is a diabetic with an A1c of 7.7 (earlier this month). His prealbumin is 24 and his albumin is 3.5. For wound care he has been doing dressing changes with Xeroform and has tried the wound VAC in the past. He has not had a CT scan recently and he has not hada biopsy of the wound. He has not been using an abdominal binder. Subjective Subjective 20 July 2024: Patient seen and examined by Dr. 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 He recommended that forcomplex reconstruction he be referred to Dr. Murry at the [facility] for aTAR/ventral hernia repair. If patient desires, could defer definitive reconstruction and perform skin graft for improved quality of life (no wound), but the ventral diastases would widen. Patient would like to pursue definitive reconstruction at the [facility]. Otherwise from a wound care standpoint there are no new issues today. CURRENT ENCOUNTER, 10 Aug 2024: Patient reports that he has is seeing a hernia specialist at the [facility] on 10 September 2024. He cannot get an earlier appointment. He was also considering [facility] but they do not have an earlier appointment either per his report. I suggested he may be considered a surgeon at [facility]. Objective Data Objective Data Vital Signs: Vital Signs Temp Pulse Resp BP 97.6 F L 96 18 187/90 H 07/30/24 00:44 07/30/24 00:44 07/30/24 00:44 07/30/24 00:44 Charges/Coding Procedures Integumentary 111xxx-113xx: 99968 Sera subq tissue 20 sq cm/< Add On Codes: 87390 Sera subq tissue add-on (x13) Physical Exam Narrative Abdomen: ~18 x 15 cm granulating central abdominal wound. 0.1 cm deep. no exposed mesh. No surrounding induration. There is loss of domain centrally with large diastases that is approximately ~15 cm wide and ~20 cm tall. PHOTOS FROM 13 July 2024 Debridement Note Debridement Note Wound debrided: Abdominal wound Laterality: Not Applicable (Central) Wound Grade/Stage: Stage III Type of Debridement: Excisional debridement Anesthesia Used: 4% Lidocaine Solution Depth: in the subcutaneous layer Percentage of wound debrided: 100 Instrument Used: 7mm curette Tissue Removed: Necrotic biofilm and fibrinous debris at fat level Severity: Limited To Skin Breakdown Amount of bleeding with debridement: Moderate Bleeding Controlled with: Compression and gauze Patient tolerated procedure: Patient tolerated procedure well Assessment/Plan Assessment/Plan (1) Nonhealing surgical wound: CODE(S): T81.89XA - Other complications of procedures, not elsewhere classified, initial encounter QUALIFIERS: Encounter type: initial encounter Qualified Code(s): T81.89XA - Other complications of procedures, not elsewhere classified, initial encounter (2) Hernia, ventral: CODE(S): K43.9 - Ventral hernia without obstruction or gangrene PLAN: Plan Patient has a hernia specialist appointment per recommendation from Dr. Renteria (appreciate recommendations from general surgery). Continue binder as needed and adjust if it is needed for binder. Twice daily Xeroform dressing changes for now. We discussed the risks, benefits, and alternatives to skin graft for improved quality of life. We talked about skin graft failure. We talked about risk of bleeding, infection, and damage to surrounding structures. Patient understandsthe risks and benefits and will consider them when he discusses full abdominal wall reconstruction versus skin grafting with general surgery. I gave him strict return precautions including signs and symptoms of fistula formation or severe breakdown. Patient happy with the plan follow-up in 3 weeks. 08/10/24 0957 Cosigner Signature (if applicable): CC: ~ Signed [facility]05-12-2025 Evaluation note* Diagnosis Onset Date Resolution Status Admit Date Hernia, ventral acute August 10, 2024 7:53am Nonhealing surgical wound acute August 10, 2024 7:53am Hernia, ventral acute August 8:15am Nonhealing surgical wound acute September 14, 2024 8:15am Hernia, ventral acute September 8:32am Nonhealing surgical wound acute October 12, 2024 8:32am Nonhealing surgical wound acute November 09, 2024 8:32am [facility] Work Phone: 1(403) 200-728504-17-2025 Evaluation note* Diagnosis Onset Date Resolution Status Admit Date Nonhealing surgical wound acute July 16, 2024 9:21am Diabetes mellitus with hyperglycemia acute July 20, 2024 8:30am Hernia, ventral acute June 8:30am Hypergranulation acute July 202024 8:30am Nonhealing surgical wound acute July 20, 2024 8:30am Hernia, ventral acute August 10, 2024 7:53am Nonhealing surgical wound acute August 10, 2024 7:53am Hernia, ventral acute August 8:15am Nonhealing surgical wound acute September 14, 2024 8:15am Hernia, ventral acute September 8:32am Nonhealing surgical wound acute October 12, 2024 8:32am [facility] Work Phone: 1(987) 625-825403-20-2025 Evaluation note* Diagnosis Onset Date Resolution Status Admit Date PEG (percutaneous endoscopic gastrostomy) adjustment/replacement/removal acute [facility] 2024 2:03pm Nonhealing surgical wound acute July 16, 2024 9:21am Diabetes mellitus with hyperglycemia acute July 20, 2024 8:30am Hernia, ventral acute June 8:30am Hypergranulation acute July 202024 8:30am Nonhealing surgical wound acute July 20, 2024 8:30am Hernia, ventral acute August 10, 2024 7:53am Nonhealing surgical wound acute August 10, 2024 7:53am [facility] Work Phone: 1(228) 560-556103-20-2025 Evaluation note* Diagnosis Onset Date Resolution Status Admit Date PEG (percutaneous endoscopic gastrostomy) adjustment/replacement/removal acute [facility] 2024 2:03pm Nonhealing surgical wound acute July 16, 2024 9:21am Diabetes mellitus with hyperglycemia acute July 20, 2024 8:30am Hernia, ventral acute June 8:30am Hypergranulation acute July 202024 8:30am Nonhealing surgical wound acute July 20, 2024 8:30am Hernia, ventral acute August 10, 2024 7:53am Nonhealing surgical wound acute August 10, 2024 7:53am Hernia, ventral acute August 8:15am Nonhealing surgical wound acute September 14, 2024 8:15am [facility] Work Phone: 1(757) 319-847912-26-2024 Discharge summary Date of Service 03/26/2024 Discharge Diagnosis 1 - Hypernatremia (E87.0 - ICD-10-CM) 2 - Wound infection (T14.8XXA - ICD-10-CM) 3 - HTN, goal below 140/90 (I10 - ICD-10-CM) 4 - Oral thrush (B37.0 - ICD-10-CM) 5 - Dysphagia (R13.10 - ICD-10-CM) 6 - Tracheostomy care (Z43.0 - ICD-10-CM) 7 - Tracheostomy present (Z93.0 - ICD-10-CM) Hospital Course This patient is a 73-year-old gentleman well-known to the general surgery team, Dr. Bowman. Patient presented to the general surgery office on 03/18/2024 for a wound check. The patient had originally underwent an elective robotic assisted umbilical hernia repair on January 20, 2024 when postoperatively he developed hypoxia and severe abdominal pain. Due to the worsening hypoxia and CT of abdomen pelvis that showed concern for perforated viscus the patient was transferred to [facility] for definitive care at that time the patient was intubated in the surgical intensive care unit and was taken back to the operating on January 21, 2024 where he underwent an exploratory laparotomy, abdominal washout and extraction of abdominal wall mesh, debridement of abdominal wall and placement of ABThera open wound VAC, at that time of the surgery there was no perforation noted. Patient was then taken back to the operating room for second look, laparotomy and debridement and closure of abdominal wall on January 23, 2024. He was then noted to have a bile leak on January 24, 2024 where he then underwent another exploratory laparotomy with ABThera placement, cholecystectomy and EGD secondary to the concerns of free air and bile leakage. At that time no findings were noted to explain the leakageof bile. Due to the patient's persistent failure of weaning off of ventilator the patient did undergo percutaneous tracheostomy tube placement on February 04, 2024 and was transferred to select long-term care facility February 07, 2024. He was then discharged back to a skilled facility where he presented to the office with concerns of an abdominal wound infection. On his evaluation in the office hewas noted to have significant tunneling and foul-smelling purulent drainage noted. Due to these findings the patient was admitted to the hospital for close observation and treatment. Patient underwent a CT scan of his abdomen pelvis on admission that showed no intra-abdominal communication to the wound. due to the patients drainages, he was placed on IV zosyn. The wound was debrided at the bedside by Dr. Bowman. A wound VAC was placed to the abdominal wound. Wound culture growing Proteus, Pseudomonas and Streptococcus constellatus. Patient was also noted to have oral thrush and was treated with nystatin. He was also seen and evaluated by speech where he underwent a modified barium swallowand they recommended the patient continue to have nutrition through his PEG tube and medications and continue to follow with speech for pharyngeal strengthening and exercising. During his admission he was also found to be hypernatremia, his free water was increased with his tube feeds and the hypernaturima resolved. Patient seen seen and evaluated by physical and Occupational Therapy who suggested inpatient rehabilitation. Patient was residing at long-term care [facility] however the family did not want the patient returning back to this facility. Patient was accepted at [facility]. On 03/26/2024 patient met all discharge criteria from a surgical standpoint and was discharged to an extended care facility. Patient continued to have wound VAC care Saturday, Saturday and Saturday. Patient was discharged on appropriate oral antibiotics and was to have close follow-up with Dr. Bowman. Allergies NKA Consults Consult Skin Team re: Pressure Staging - Ordered -- 03/24/24 15:35:55 EST Consult to Physician - Ordered -- 03/18/24 12:24:00 EST, [facility] (For Consultation Assignment Only NO other Orders), Routine, Medical management Imaging Results and Diagnostics XR Swallowing Function Result Date: March 20, 2024 Verified By: CLINICAL STATEMENT: IMPRESSION: CT Abdomen/Pelvis w/Contrast Result Date: March 18, 2024 Verified By: DONNA SAVAGE MD CLINICAL STATEMENT: IMPRESSION: Postsurgical changes along the anterior abdominal wall with diffusesubcutaneous edema and emphysema tracking laterally. A 4.1 x 1.6 cm fluidand air collection is noted along the lateral left abdominal wall and couldreflect developing abscess. Small right pleural effusion with adjacent ar eas of compressiveatelectasis/consolidation. Blocked airways in this area could suggestaspiration. Recommend clinical correlation. Left lower lobe atelectasis/consolidation unchanged. I have personally reviewed the images of this examination and agree with theresident's findings and interpretation. Objective Vitals and Measurements T: 36.8 C (Oral) TMIN: 36.3 C (Oral) TMAX: 36.8 C (Oral) HR: 59 RR: 18 BP: 121/67 SpO2: 98% Weight Current Weight Dosing Weight: 114.5 kg (03/24/24) Current Weight: 112.7 kg (03/25/24) Dosing Weight: 115.5 kg (03/23/24) Current Weight: 106.2 kg (03/21/24) Pending Labs and Studies n/a Code Status Code Status - Ordered -- 03/18/24 12:24:00 EST, Full Code, Constant Order Admission Date 03/18/2024 Discharge Date 03/26/2024 Medications New Prescription amoxicillin-clavulanate (amoxicillin-clavulanate 875 mg-125 mg oral tablet)1 tab(s) by mouth every 12 hours for 14 Days. Refills: 0. levoFLOXacin (levoFLOXacin 750 mg oral tablet)1 tab(s) by mouth every 24 hours for 14 Days. Refills: 0. nystatin (nystatin 100,000 units/mL oral suspension)5 Milliliter Swish in mouth and swallow every 6hours for 14 Days. Refills: 0. Unchanged [id number] Milligram in the rectum every 4 hours as needed as needed for pain. [id number] Milligram in the rectum every 4 hours as needed as needed for fever. acetylcysteine (acetylcysteine 10% inhalation solution)5 Milliliter by inhalation two (2) times a day. Al hydroxide/Mg hydroxide/simethicone (aluminum hydroxide/magnesium hydroxide/simethicone 400 mg-400 mg-40 mg/5 mL oral suspension)20 Milliliter by mouth four (4) times a day. between meals and at bedtime. amLODIPine (amLODIPine 5 mg oral tablet)1 tab(s) by mouth once a day. Refills: 3. ascorbic acid (Vitamin C 500 mg oral tablet)1 tab(s) PEG tube once a day. atorvastatin (atorvastatin 20 mg oral tablet)1 tab(s) by mouth once a day for 90 Days. Refills: 1. biotin (biotin 5 mg/mL oral liquid)as needed Dry mouth. Milligram in the rectum once a day as needed as needed for constipation. cholecalciferol (Vitamin D (3) 45 units oral capsule) dapagliflozin (Farxiga 10 mg oral tablet)1 tab(s) by mouth once a day. Refills: 3. empagliflozin (empagliflozin 25 mg oral tablet)1 tab(s) PEG tube once a day (in the morning). escitalopram (escitalopram 10 mg oral tablet)1 tab(s) PEG tube once a day. famotidine (famotidine 20 mg oral tablet)1 tab(s) PEG tube once a day. [id number] Milligram PEG tube every 12 hours. [id number] Milliliter PEG tube every 4 hours as needed for cough. insulin glargine (Lantus)18 unit(s) Subcutaneous two (2) times a day. insulin lispro-insulin lispro protamine (Humalog Mix) (HumaLOG Mix 50/50 KwikPen 3 mL PEN)15 unit(s) Subcutaneous two (2) times a day. ipratropium (ipratropium 500 mcg/2.5 mL inhalation solution)2.5 Milliliter by inhalation four (4) times a day as needed Respiratory distress. levothyroxine (levothyroxine 25 mcg (0.025 mg) oral tablet)2 tab(s) by mouth once a day for 90 Days. Refills: 1. losartan (losartan 100 mg oral tablet)1 tab(s) by mouth once a day for 90 Days. Refills: 1. magnesium hydroxide (Milk of Magnesia)30 PEG tube once a day as needed as needed for constipation. metFORMIN (MetFORMIN (Eqv-Glucophage XR) 500 mg oral tablet, EXTENDED RELEASE)2 tab(s) by mouth two(2) times a day. Refills: 2. metoprolol (metoprolol succinate 25 mg oral TABLET extended release)1 tab(s) by mouth once a day for 90 Days. Do not crush or chew (controlled release). Refills: 1. multivitamin with minerals (Stress with Zinc)1 tab(s) PEG tube once a day. multivitamin with minerals (Vitamin D with Minerals oral tablet)1 tab(s) by mouth once a day. semaglutide (Ozempic 4 mg/3 mL (1 mg dose) subcutaneous solution)1 Milligram Subcutaneous every week. Refills: 1. sodium biphosphate-sodium phosphate (Fleet Enema)133 Milliliter in the rectum once a day as needed as needed for constipation. Follow Up [facility], When:Within 1-2 days Follow Up with KELLEY HERNANDEZ When:Within 1-2 days Where:[address] [place] [address]- Business (1) Follow Up Appointments Transfer of Care OT - Ordered -- Reason for therapy: Generalized debility, 03/26/24 8:51:00 EST Transfer of Care PT - Ordered -- Reason for therapy: Generalized debility, 03/26/24 8:51:00 EST Follow Up Labs/Studies Discharge Labs No Follow-up Labs Discharge Studies No Follow-up Studies Discharge Diet Transfer of Care Diet - Ordered -- 03/26/24 8:51:00 EST Discharge Activity Transfer of Care Activity - Ordered -- Activity As Tolerated, 03/26/24 8:51:00 EST Condition on Discharge to ECF Aaliyah GuidoAriana Readmission Risk/Palliative Score No qualifying data available. Discharge Disposition to ECF Information Provided To Patient, nurse and family Time Spent 30mins This document was dictated with voice recognition software and may contain grammatical errors Digitally Signed by KRYSTA BIANCHI on 03/26/2024 12:10 PM [facility] [id number] Note Discharge Instructions Thank you for allowing [facility] to assist you with your healthcare needs. The following is importantdischarge information regarding your hospital visit. Your Care Team KELLEY HERNANDEZ APRN, CNP Your Diagnosis HTN, goal below 140/90 Hyperlipidemia LDL goal <100 Hypothyroidism in adult What to do next Scheduled Follow-Up Appointments Appointment Type When With Where Contact Information StatusGS OV Post Op 04/08/2024 10:50 AM SALVADOR WAGONER MD [facility] General Surgery [place] [address] [place] [address]- Confirmed PC OV Follow Up 06/30/2024 03:20 PM EDT KELLEY HERNANDEZ APRN, CNP [facility] Confirmed Follow Up Appointments Follow Up with [facility] [place], [facility], When:Within 1-2 days Follow Up with KELLEY HERNANDEZ When:Within 1-2 days Where:[address] [place] [address]- Business (1) The Following Activity and Diet Have Been Ordered for You Transfer of Care Activity - Ordered -- Activity As Tolerated, 03/26/24 8:51:00 EST Transfer of Care Diet - Ordered -- 03/26/24 8:51:00 EST The Following Equipment Has Been Ordered for You Discharge Home Equipment Transfer of Care Wound Care - Ordered -- Dressing Type: Vacuum drsg, Abdomen, Change Dressing: Saturday/Saturday/Saturday, Please place white sponge in the bilateral lower edges of the abdominal wound. Please place VAC sponge over the entire wound.Wound VAC to be set at 75 mmHg., 03/26/24 8:... The Following Treatments Have Been Ordered for You Discharge Labs No qualifying data available. Discharge Radiology No qualifying data available. Other Therapies Transfer of Care OT - Ordered -- Reason for therapy: Generalized debility, 03/26/24 8:51:00 EST Transfer of Care PT - Ordered -- Reason for therapy: Generalized debility, 03/26/24 8:51:00 EST Post Acute Orders Transfer of Care Admission Level of Care - Ordered -- Level of Care SNF, 03/26/24 10:15:44 EST Transfer of Care Code Status - Ordered -- Full Code, Constant Order Transfer of Care Communication Order - Ordered -- Expect less than 30 day stay., 03/26/24 10:15:44 EST Transfer of Care Orders Electronically Signed By - Ordered -- 03/26/24 8:51:00 ESTRELL MARK MD Transfer of Care Prognosis - Ordered -- Good, Patient Aware: Yes Transfer of Care Rehab Potential - Ordered -- Rehab potential fair, 03/26/24 8:51:19 EST Transfer of Care Tube Feeding Order - Ordered -- jevity 1.5 at 65mL per hourFree water 250mL q8 hours, 03/26/24 8:51:19 EST Someone Will Contact You Regarding These Home Health Referrals No home referrals have been ordered for you. No one will call you. Allergies NKA Medications Please ask your primary doctor or pharmacist before taking any other medication not listed, including over the counter drugs, herbal medications, vitamins and or supplements as they may interact withyour home medications. What How Much When Why Instructions Last Dose New amoxicillin-clavulanate (amoxicillin-clavulanate 875 mg-125 mg oral tablet) 1 tab(s) by mouth Every 12 hours Duration: 14 Days Printed Prescription New levoFLOXacin (levoFLOXacin 750 mg oral tablet) 1 tab(s) by mouth Every 24 hours Duration: 14 Days Printed Prescription New nystatin (nystatin 100,000 units/ mL oral suspension) 5 Milliliter Swish in mouth and swallow Every 6 hours Duration: 14 Days Printed Prescription Unchanged acetaminophen 650 Milligram in the rectum Every 4 hours as needed for as needed for pain Unchanged acetaminophen 650 Milligram in the rectum Every 4 hours as needed for as needed for fever Unchanged acetylcysteine (acetylcysteine 10% inhalation solution) 5 Milliliter by inhalation Two (2) times a day Unchanged Al hydroxide/ Mg hydroxide/ simethicone (aluminum hydroxide/ magnesium hydroxide/ simethicone 400 mg-400 mg-40 mg/ 5 mL oral suspension) 20 Milliliter by mouth Four (4) times a day between meals and at bedtime Unchanged amLODIPine (amLODIPine 5 mg oral tablet) 1 tab(s) by mouth Once a day Unchanged ascorbic acid (Vitamin C 500 mg oral tablet) 1 tab(s) PEG tube Once a day Unchanged atorvastatin (atorvastatin 20 mg oral tablet) 1 tab(s) by mouth Once a day Hyperlipidemia LDL goal <100 Duration: 90 Days Unchanged biotin (biotin 5 mg/ mL oral liquid) As needed for Dry mouth Unchanged bisacodyl 10 Milligram in the rectum Once a day as needed for as needed for constipation Unchanged cholecalciferol (Vitamin D (3) 45 units oral capsule) Unchanged dapagliflozin (Farxiga 10 mg oral tablet) 1 tab(s) by mouth Once a day Unchanged empagliflozin (empagliflozin 25 mg oral tablet) 1 tab(s) PEG tube Once a day (in the morning) Unchanged escitalopram (escitalopram 10 mg oral tablet) 1 tab(s) PEG tube Once a day Unchanged famotidine (famotidine 20 mg oral tablet) 1 tab(s) PEG tube Once a day Unchanged guaiFENesin 600 Milligram PEG tube Every 12 hours Unchanged guaiFENesin 10 Milliliter PEG tube Every 4 hours as needed for for cough Unchanged insulin glargine (Lantus) 18 unit(s) Subcutaneous Two (2) times a day Unchanged insulin lispro-insulin lispro protamine (Humalog Mix) (HumaLOG Mix 50/ 50 KwikPen 3 mL PEN) 15 unit(s) Subcutaneous Two (2) times a day Unchanged ipratropium (ipratropium 500 mcg/ 2.5 mL inhalation solution) 2.5 Milliliter by inhalation Four (4) times a day as needed for Respiratory distress Unchanged levothyroxine (levothyroxine 25 mcg (0.025 mg) oral tablet) 2 tab(s) by mouth Once a day Hypothyroidism in adult Duration: 90 Days Unchanged losartan (losartan 100 mg oral tablet) 1 tab(s) by mouth Once a day HTN, goal below 140/90 Duration: 90 Days Unchanged magnesium hydroxide (Milk of Magnesia) 30 PEG tube Once a day as needed for as needed for constipation Unchanged metFORMIN (MetFORMIN (Eqv-Glucophage XR) 500 mg oral tablet, EXTENDED RELEASE) 2 tab(s) by mouth Two (2) times a day Unchanged metoprolol (metoprolol succinate 25 mg oral TABLET extended release) 1 tab(s) by mouth Once a day HTN, goal below 140/90 Duration: 90 Days Do not crush or chew (controlled release) Unchanged multivitamin with minerals (Stress with Zinc) 1 tab(s) PEG tube Once a day Unchanged multivitamin with minerals (Vitamin D with Minerals oral tablet) 1 tab(s) by mouth Once a day Unchanged semaglutide (Ozempic 4 mg/ 3 mL (1 mg dose) subcutaneous solution) 1 Milligram Subcutaneous Every week Unchanged sodium biphosphate-sodium phosphate (Fleet Enema) 133 Milliliter in the rectum Once a day as needed for as needed for constipation Please take this list to your next doctor s visit. Bring all medications you take, including over the counter medications, herbals and other supplements with you to your doctor s visit. Patients and families are reminded to discard old lists and to update any records with all medication providers or retail pharmacies. Additional Information VACCINATE! IT SAVES LIVES! Members of the community who have not yet received the COVID-19 vaccine and would like to receive it can visit one of [facility] vaccine clinics. There are many vaccine clinic locations within the [facility]. For locations and available times, please visit https://gettheshot.coronavirus.[place].gov/. It is important to note that some COVID mobile vaccine clinics are held outdoors and may be canceled in rainy or stormy conditions. To learn more about pediatric vaccinations (ages 5-11), we invite you to visit the [facility] webpage. [email or web address]/[email or web address] [email or web address] learn more about the COVID-19 vaccine, we invite you to visit the CDC website for a list of frequently asked questions.https://www.cdc.gov/coronavirus/2019-ncov/vaccines/faq.html [facility] Patient Portal Access Instructions: Stay connected with your healthcare team and access your personal medical information anytime with the [facility] Patient Portal. Please follow the directions below to create your [facility] account: 1.Access the email account you provided upon registration to the hospital/physician office.2.Look for an invitation email from [facility].3.Open the email and access the invitation link: AcceptInvitation to [facility].4.Fill in the required egan to create your account. To access your account, visit [employer]. Click the blue button labeled Access Patient Portal and then log in with the username and password that you created in the steps above. You will be able to view your test results, lab results, a summary of your visits, upcoming appointments and more. There is also a convenient messaging option where you can send secure messages to your p [employer]. In addition, you will have the ability to download any documents or summaries to your computer and/or send the information securely to a physician. Remember that your healthcare information is confidential, so carefully consider who you will allowto register on the [facility] Patient Portal for access to your information. You can also access the [facility] Patient Portal on the [facility] mendy. Simply click on Patient Portal and then log into your account. If you would like to receive a full copy of your medical records, please contact the [facility] Medical Records Department by calling [phone], Saturday through Saturday between 8 a.m. and 4:30 p.m. HOW TO SAFELY DISPOSE OF PRESCRIPTION MEDICATIONS Please use one of the following methods to safely dispose of your unused medications. 1.Use a drug disposal kit: the drug disposal pouch allows you to safely discard your old and unuseddrugs. Ask your nurse to give you one when you are discharged.2.Visit a local take-back location: Many local pharmacies and police departments have programs that collect old and unwanted prescriptiondrugs. Call your local pharmacy or go to http://NoRedInk.[employer]/7O9Lk8a to find one close to you.3.Make use of household items: Use cat litter or old coffee grounds to dispose medications if other options arenot available. Mix your drugs with these household products, seal them in an airtight container andthrow it into the garbage. Call [facility]: [phone] to be sure your drugs can be disposed of in this way. Some medicines may require a different approach.4.Never flush your medications down the toilet. IF YOU HAVE BEEN PRESCRIBED AN OPIOID FOR PAIN If you have been prescribed an opioid (such as hydrocodone, oxycodone or morphine), it is critical to understand the possible side effects and risks of opioid pain medications. Even when taken as directed, opioids can have several side effects including: Tolerance, meaning you might need to take more of a medication for the same pain relief. Nausea, vomiting and/or constipation. Sleepiness, dizziness, dry mouth, confusion, depression or itching. Physical dependence, meaning you have withdrawal symptoms when a medication is stopped, can develop within a few days. KNOW YOUR RESPONSIBILITIES It is important to know exactly how much and how often to take the opioid pain medications you are prescribed. Never take opioids in higher amounts or more often than prescribed. Do not combine opioids with alcohol or other drugs that cause drowsiness, such as benzodiazepines, also known as benzos, including diazepam and alprazolam, muscle relaxants or sleep aids. Never sell or share prescription opioids. This is illegal. Store opioids in a secure place and out of reach of others (including children, family, friends and visitors). The last page of this document has been signed and retained as a CHART COPY. Signatures Patient Education Materials Medication Leaflets My discharge plan and instructions have been reviewed and explained to me and I,CORINNE CORREA understand my current condition and have read and understand these discharge instructions. I have received a written copy of the plan/instructions. If I have questions, I am aware that I should contact my doctor. 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 Patient reported that patient has no complaints at this time. He denies any nausea, vomiting fever, chills. Patient tolerating tube feed without difficulty Objective Vitals and Measurements T: 36.4 C (Oral) TMIN: 36.3 C (Oral) TMAX: 36.9 C (Oral) HR: 66 (Apical) RR: 18 BP: 114/71 SpO2: 100% Intake and Output 7AM Yesterday to 7AM Today Intake and Output (Last 24 hours) Intake Free Water: 1500.00 Enteral Tube Flush: 30.00 Tube Feeding Intake 520.00 Enteral Tube Intake: 520.00 Oral Intake 0.00 Output Urinary Catheter Output: 1050.00 Stool Count 3.00 Urine Count 3.00 Diaper Count 3.00 Total Summary Total Intake 2570.00 Total Output 1050.00 Fluid Balance 1520.00 Physical Exam General Appearance: In no acute distress. Head: Normocephalic, atraumatic. EENT: Trach in place. Neck: Supple. Lungs: Chest rise symmetrical. Abdomen: Soft, no tenderness, Wound VAC is in place. Skin: Normal for ethnicity. No jaundice, pallor, or diaphoresis noted. Psychiatric: Calm and cooperative. Weight Current Weight Dosing Weight: 114.5 kg (03/24/24) Current Weight: 112.7 kg (03/25/24) Dosing Weight: 115.5 kg (03/23/24) Current Weight: 106.2 kg (03/21/24) Medications Medications (27) Active Scheduled: (14) acetylcysteine 20% INH/PO Soln 4 mL VIAL 0.5 gram(s) 2.5 mL, Inhalation, BIDRT amLODIPine 5 mg tablet 5 mg 1 tab(s), PEG, qDay atorvastatin 20 mg tablet 20 mg 1 tab(s), PEG, qDay enoxaparin 40 mg/ 0.4mL syringe 40 mg 0.4 mL, Subcutaneous, qDay escitalopram 10 mg tablet 10 mg 1 tab(s), PEG, qDay famotidine 20 mg tablet 20 mg 1 tab(s), PEG, qDay insulin glargine 18 unit(s) 0.18 mL, Subcutaneous (INT), BID insulin lispro 100 units/mL Soln (3 mL) Give 0-10 units/dose, Subcutaneous, q6h ipratropium 0.02% (0.5mg/2.5mL) UD 500 mcg 2.5 mL, Inhalation, TIDRT levothyroxine 50 mcg tablet 50 mcg 1 tab(s), PEG, qDay losartan 100 mg tablet 100 mg 1 tab(s), PEG, qDay metoprolol tartrate 25 mg tablet 25 mg 1 tab(s), PEG, BIDM nystatin susp 100,000 units/mL 5 mL UD 500,000 unit(s) 5 mL, Swish & Swallow, q6h piperacillin-tazobactam PMX 3.375 gram(s) 50 mL, IV Piggyback, q8h Continuous: (0) PRN: (13) acetaminophen 325 mg Tablet 650 mg 2 tab(s), Oral, q4h acetaminophen-OXYcodone 325 mg-5 mg Tablet 1 tab(s), Oral, q4h acetaminophen-OXYcodone 325 mg-5 mg Tablet 2 tab(s), Oral, q4h Al hydrox/Mg hydrox/simethicone 200-200-20 mg/5 mL Susp UD 15 mL, Oral, q4h albuterol 0.083% Soln UD (2.5mg/3 mL) 2.5 mg 3 mL, Inhalation, TIDRT dextrose 50% Solution Disp syringe 50 mL 12.5 gram(s) 25 mL, IV Push, AsDirected guaifenesin 100 mg/5 mL Liquid SUGAR-FREE 120 mL 200 mg 10 mL, PEG, q4h HYDROmorphone 0.5 mg/0.5 mL syringe 0.25 mg 0.25 mL, IV Push, q3h HYDROmorphone 0.5 mg/0.5 mL syringe 0.5 mg 0.5 mL, IV Push, q3h melatonin 3 mg tablet 3 mg 1 tab(s), Oral, qHS melatonin 3 mg tablet 3 mg 1 tab(s), Oral, qHS ondansetron 2 mg/ 1 mL 2 mL INJ 4 mg 2 mL, IV Push, q4h prochlorperazine 10 mg/2 mL vial 5 mg 1 mL, IV Push, q6h Lab Results No 36 Hour Lab Data EKG No qualifying data available. Assessment/Plan HTN, goal below 140/90 Hyperlipidemia LDL goal <100 Patient is 73-year-old gentleman is hospital day #8 admitted under the general services team secondary to concern for abdominal wound infection. Vital signs, laboratory data and I/O have been reviewed. Patient remains hemodynamically stable andis ready for discharge. Per review of the social work note patient can be accepted at [facility] today. Patient is ready for discharge, orders placed for discharge. Patient will follow up withDr. Bowman. Anticipated Date of Discharge 03/26/2024 to [facility] Digitally Signed by KRYSTA BIANCHI on 03/26/2024 08:56 AM [facility] [id number] Respiratory therapy Hospital Progress note Respiratory Therapy Evaluation Entered On: 03/26/2024 6:49 EST Performed On: 03/26/2024 6:48 EST by Divine Hartman Respiratory Therapy Evaluation Pulmonary Status : Chronic pulmonary disease Surgical Status : General surgery Chest X-Ray : Infiltrates or atelectasis in more than one lobe or rib fractures Respiratory Pattern (RT) : RR 10-20 BPM, Regular pattern Breath Sounds (RT) : Diminished due to poor inspiratory effort Cough (RT) : Strong, productive Level of Activity : Ambulatory with assistance Mental Status : Alert, oriented and cooperative Respiratory Therapy Evaluation Score : 10 RT Evaluation Steps : Chart review completed, Assessment completed: RR, HR, Auscultation, Cough, Patient Interview completed Respiratory Evaluation Triage Score : (6-10) Freq: TIDRT & Albuterol Q2hRT prn RT Assessment [Frequency/Schedule] : No changes required Divine Hartman RT - 03/26/2024 6:48 EST Digitally Signed by Divine Hartman RT on 03/26/2024 06:48 AM [facility] [id number] Surgery Hospital Progress note Date of Service 03/25/2024 Subjective Patient resting comfortably in bed no significant changes overnight. Pain controlled denies nausea feels better since presentation. Currently at a breathing treatment and suctioned Objective Vitals and Measurements T: 37.1 C (Oral) TMIN: 36.4 C (Oral) TMAX: 37.7 C (Oral) HR: 72 (Apical) RR: 18 BP: 116/63 SpO2: 94% WT: 112.7 kg Intake and Output 7AM Yesterday to 7AM Today Intake and Output (Last 24 hours) Intake Free Water: 300.00 Enteral Tube Intake: 1375.00 Oral Intake 0.00 Output Urinary Catheter Output: 700.00 Stool Count 3.00 Diaper Count 5.00 Total Summary Total Intake 1675.00 Total Output 700.00 Fluid Balance 975.00 Physical Exam No acute distress Unlabored breathing Trach in place coarse breath sounds Abdomen soft wound VAC in place with mostly serous output Weight Current Weight Dosing Weight: 114.5 kg (03/24/24) Current Weight: 112.7 kg (03/25/24) Dosing Weight: 115.5 kg (03/23/24) Current Weight: 106.2 kg (03/21/24) Medications Medications (27) Active Scheduled: (14) acetylcysteine 20% 500 mg 2.5 mL, Inhalation (INT), BIDRT amLODIPine 5 mg tablet 5 mg 1 tab(s), PEG, qDay atorvastatin 20 mg tablet 20 mg 1 tab(s), PEG, qDay enoxaparin 40 mg/ 0.4mL syringe 40 mg 0.4 mL, Subcutaneous, qDay escitalopram 10 mg tablet 10 mg 1 tab(s), PEG, qDay famotidine 20 mg tablet 20 mg 1 tab(s), PEG, qDay insulin glargine 18 unit(s) 0.18 mL, Subcutaneous (INT), BID insulin lispro 100 units/mL Soln (3 mL) Give 0-10 units/dose, Subcutaneous, q6h ipratropium 0.02% (0.5mg/2.5mL) UD 500 mcg 2.5 mL, Inhalation, TIDRT levothyroxine 50 mcg tablet 50 mcg 1 tab(s), PEG, qDay losartan 100 mg tablet 100 mg 1 tab(s), PEG, qDay metoprolol tartrate 25 mg tablet 25 mg 1 tab(s), PEG, BIDM nystatin susp 100,000 units/mL 5 mL UD 500,000 unit(s) 5 mL, Swish & Swallow, q6h piperacillin-tazobactam PMX 3.375 gram(s) 50 mL, IV Piggyback, q8h Continuous: (0) PRN: (13) acetaminophen 325 mg Tablet 650 mg 2 tab(s), Oral, q4h acetaminophen-OXYcodone 325 mg-5 mg Tablet 1 tab(s), Oral, q4h acetaminophen-OXYcodone 325 mg-5 mg Tablet 2 tab(s), Oral, q4h Al hydrox/Mg hydrox/simethicone 200-200-20 mg/5 mL Susp UD 15 mL, Oral, q4h albuterol 0.083% Soln UD (2.5mg/3 mL) 2.5 mg 3 mL, Inhalation, TIDRT dextrose 50% Solution Disp syringe 50 mL 12.5 gram(s) 25 mL, IV Push, AsDirected guaifenesin 100 mg/5 mL Liquid SUGAR-FREE 120 mL 200 mg 10 mL, PEG, q4h HYDROmorphone 0.5 mg/0.5 mL syringe 0.25 mg 0.25 mL, IV Push, q3h HYDROmorphone 0.5 mg/0.5 mL syringe 0.5 mg 0.5 mL, IV Push, q3h melatonin 3 mg tablet 3 mg 1 tab(s), Oral, qHS melatonin 3 mg tablet 3 mg 1 tab(s), Oral, qHS ondansetron 2 mg/ 1 mL 2 mL INJ 4 mg 2 mL, IV Push, q4h prochlorperazine 10 mg/2 mL vial 5 mg 1 mL, IV Push, q6h Lab Results No 36 Hour Lab Data EKG No qualifying data available. Assessment/Plan 73-year-old male postop day #7 admitted secondary for abdominal wound infection. Lab still pending vital signs stable no significant changes. Continue with wound VAC changes Saturday. Awaiting placement likely DC tomorrow. Digitally Signed by YANET SCHULTZ DO on 03/25/2024 08:15 AM [facility] [id number] [facility] Hospital Progress note Date of Service 03/24/2024 Chief Complaint Hospital day #6 Subjective On examination of the patient he is seen resting supine in bed, in no acute distress. Patient reporting that his IGGY hose are making his legs feel numb however he is able to move all digits without difficulty he is able to bend his legs. Sensation is the same bilaterally. Patient reports overall heis doing well. He denies any nausea, vomiting fever or chills. Objective Vitals and Measurements T: 36.6 C (Oral) TMIN: 36.3 C (Oral) TMAX: 36.9 C (Oral) HR: 77 RR: 16 BP: 121/68 SpO2: 95% WT: 114.5 kg Intake and Output 7AM Yesterday to 7AM Today Intake and Output (Last 24 hours) Intake Free Water: 600.00 Tube Feeding Intake 520.00 Oral Intake 0.00 Output Urinary Catheter Output: 450.00 Stool Count 4.00 Diaper Count 1.00 Total Summary Total Intake 1120.00 Total Output 450.00 Fluid Balance 670.00 Physical Exam General Appearance: In no acute distress. Head: Normocephalic, atraumatic. EENT: Trach in place. Neck: Supple. Lungs: Chest rise symmetrical. Abdomen: Soft, mild tenderness noted. Wound VAC is in place. Skin: Normal for ethnicity. No jaundice, pallor, or diaphoresis noted. Psychiatric: Calm and cooperative. Weight Current Weight Dosing Weight: 114.5 kg (03/24/24) Current Weight: 106.2 kg (03/21/24) Dosing Weight: 115.5 kg (03/23/24) Current Weight: 113.1 kg (03/20/24) Medications Medications (27) Active Scheduled: (14) acetylcysteine 20% 500 mg 2.5 mL, Inhalation (INT), BIDRT amLODIPine 5 mg tablet 5 mg 1 tab(s), PEG, qDay atorvastatin 20 mg tablet 20 mg 1 tab(s), PEG, qDay enoxaparin 40 mg/ 0.4mL syringe 40 mg 0.4 mL, Subcutaneous, qDay escitalopram 10 mg tablet 10 mg 1 tab(s), PEG, qDay famotidine 20 mg tablet 20 mg 1 tab(s), PEG, qDay insulin glargine 18 unit(s) 0.18 mL, Subcutaneous (INT), BID insulin lispro 100 units/mL Soln (3 mL) Give 0-10 units/dose, Subcutaneous, q6h ipratropium 0.02% (0.5mg/2.5mL) UD 500 mcg 2.5 mL, Inhalation, TIDRT levothyroxine 50 mcg tablet 50 mcg 1 tab(s), PEG, qDay losartan 100 mg tablet 100 mg 1 tab(s), PEG, qDay metoprolol tartrate 25 mg tablet 25 mg 1 tab(s), PEG, BIDM nystatin susp 100,000 units/mL 5 mL UD 500,000 unit(s) 5 mL, Swish & Swallow, q6h piperacillin-tazobactam PMX 3.375 gram(s) 50 mL, IV Piggyback, q8h Continuous: (0) PRN: (13) acetaminophen 325 mg Tablet 650 mg 2 tab(s), Oral, q4h acetaminophen-OXYcodone 325 mg-5 mg Tablet 1 tab(s), Oral, q4h acetaminophen-OXYcodone 325 mg-5 mg Tablet 2 tab(s), Oral, q4h Al hydrox/Mg hydrox/simethicone 200-200-20 mg/5 mL Susp UD 15 mL, Oral, q4h albuterol 0.083% Soln UD (2.5mg/3 mL) 2.5 mg 3 mL, Inhalation, TIDRT dextrose 50% Solution Disp syringe 50 mL 12.5 gram(s) 25 mL, IV Push, AsDirected guaifenesin 100 mg/5 mL Liquid SUGAR-FREE 120 mL 200 mg 10 mL, PEG, q4h HYDROmorphone 0.5 mg/0.5 mL syringe 0.25 mg 0.25 mL, IV Push, q3h HYDROmorphone 0.5 mg/0.5 mL syringe 0.5 mg 0.5 mL, IV Push, q3h melatonin 3 mg tablet 3 mg 1 tab(s), Oral, qHS melatonin 3 mg tablet 3 mg 1 tab(s), Oral, qHS ondansetron 2 mg/ 1 mL 2 mL INJ 4 mg 2 mL, IV Push, q4h prochlorperazine 10 mg/2 mL vial 5 mg 1 mL, IV Push, q6h Lab Results 03/23 06:47 WBC: 5.8 Hgb: 8.5 L Hct: 26.3 L Platelet: 336 Neutrophil %: 59.3 Glucose Level: 160 H Sodium Level: 145 Potassium Level: 4.4 BUN: 27.0 H Creatinine Lvl (s): 0.71 EKG No qualifying data available. Assessment/Plan Patient is 73-year-old gentleman who is hospital day #6 there was admitted under the general service team secondary to concern for abdominal wound infection. Vital signs, laboratory data and I/O have been reviewed. The patient remains hemodynamically stableand is ready for discharge to facility once a bed becomes available. Continue with wound VAC changes Saturday/Saturday/Saturday. Plan has been discussed with the patient. He was understanding. Case been discussed with Dr. Schultz. Please see his addendum to follow. This document was dictated with voice recognition software and may contain grammatical errors Digitally Signed by KRYSTA BIANCHI on 03/24/2024 08:13 AM [id number] Progress note Date of Service 03/24/2024 Chief Complaint Hospital day #6 Subjective On examination of the patient he is seen resting supine in bed, in no acute distress. Patient reporting that his IGGY hose are making his legs feel numb however he is able to move all digits without difficulty he is able to bend his legs. Sensation is the same bilaterally. Patient reports overall heis doing well. He denies any nausea, vomiting fever or chills. Objective Vitals and Measurements T: 36.6 C (Oral) TMIN: 36.3 C (Oral) TMAX: 36.9 C (Oral) HR: 77 RR: 16 BP: 121/68 SpO2: 95% WT: 114.5 kg Intake and Output 7AM Yesterday to 7AM Today Intake and Output (Last 24 hours) Intake Free Water: 600.00 Tube Feeding Intake 520.00 Oral Intake 0.00 Output Urinary Catheter Output: 450.00 Stool Count 4.00 Diaper Count 1.00 Total Summary Total Intake 1120.00 Total Output 450.00 Fluid Balance 670.00 Physical Exam General Appearance: In no acute distress. Head: Normocephalic, atraumatic. EENT: Trach in place. Neck: Supple. Lungs: Chest rise symmetrical. Abdomen: Soft, mild tenderness noted. Wound VAC is in place. Skin: Normal for ethnicity. No jaundice, pallor, or diaphoresis noted. Psychiatric: Calm and cooperative. Weight Current Weight Dosing Weight: 114.5 kg (12/24/24) Current Weight: 106.2 kg (03/21/24) Dosing Weight: 115.5 kg (03/23/24) Current Weight: 113.1 kg (03/20/24) Medications Medications (27) Active Scheduled: (14) acetylcysteine 20% 500 mg 2.5 mL, Inhalation (INT), BIDRT amLODIPine 5 mg tablet 5 mg 1 tab(s), PEG, qDay atorvastatin 20 mg tablet 20 mg 1 tab(s), PEG, qDay enoxaparin 40 mg/ 0.4mL syringe 40 mg 0.4 mL, Subcutaneous, qDay escitalopram 10 mg tablet 10 mg 1 tab(s), PEG, qDay famotidine 20 mg tablet 20 mg 1 tab(s), PEG, qDay insulin glargine 18 unit(s) 0.18 mL, Subcutaneous (INT), BID insulin lispro 100 units/mL Soln (3 mL) Give 0-10 units/dose, Subcutaneous, q6h ipratropium 0.02% (0.5mg/2.5mL) UD 500 mcg 2.5 mL, Inhalation, TIDRT levothyroxine 50 mcg tablet 50 mcg 1 tab(s), PEG, qDay losartan 100 mg tablet 100 mg 1 tab(s), PEG, qDay metoprolol tartrate 25 mg tablet 25 mg 1 tab(s), PEG, BIDM nystatin susp 100,000 units/mL 5 mL UD 500,000 unit(s) 5 mL, Swish & Swallow, q6h piperacillin-tazobactam PMX 3.375 gram(s) 50 mL, IV Piggyback, q8h Continuous: (0) PRN: (13) acetaminophen 325 mg Tablet 650 mg 2 tab(s), Oral, q4h acetaminophen-OXYcodone 325 mg-5 mg Tablet 1 tab(s), Oral, q4h acetaminophen-OXYcodone 325 mg-5 mg Tablet 2 tab(s), Oral, q4h Al hydrox/Mg hydrox/simethicone 200-200-20 mg/5 mL Susp UD 15 mL, Oral, q4h albuterol 0.083% Soln UD (2.5mg/3 mL) 2.5 mg 3 mL, Inhalation, TIDRT dextrose 50% Solution Disp syringe 50 mL 12.5 gram(s) 25 mL, IV Push, AsDirected guaifenesin 100 mg/5 mL Liquid SUGAR-FREE 120 mL 200 mg 10 mL, PEG, q4h HYDROmorphone 0.5 mg/0.5 mL syringe 0.25 mg 0.25 mL, IV Push, q3h HYDROmorphone 0.5 mg/0.5 mL syringe 0.5 mg 0.5 mL, IV Push, q3h melatonin 3 mg tablet 3 mg 1 tab(s), Oral, qHS melatonin 3 mg tablet 3 mg 1 tab(s), Oral, qHS ondansetron 2 mg/ 1 mL 2 mL INJ 4 mg 2 mL, IV Push, q4h prochlorperazine 10 mg/2 mL vial 5 mg 1 mL, IV Push, q6h Lab Results 03/23 06:47 WBC: 5.8 Hgb: 8.5 L Hct: 26.3 L Platelet: 336 Neutrophil %: 59.3 Glucose Level: 160 H Sodium Level: 145 Potassium Level: 4.4 BUN: 27.0 H Creatinine Lvl (s): 0.71 EKG No qualifying data available. Assessment/Plan Patient is 73-year-old gentleman who is hospital day #6 there was admitted under the general service team secondary to concern for abdominal wound infection. Vital signs, laboratory data and I/O have been reviewed. The patient remains hemodynamically stableand is ready for discharge to facility once a bed becomes available. Continue with wound VAC changes Saturday/Saturday/Saturday. Plan has been discussed with the patient. He was understanding. Case been discussed with Dr. Schultz. Please see his addendum to follow. This document was dictated with voice recognition software and may contain grammatical errors Digitally Signed by KRYSTA BIANCHI on 03/24/2024 08:13 AM [facility] [id number] Note Date of Service 03/23/24 Chief Complaint sob Subjective 73-year-old male with past medical history of chronic hypoxic respiratory failure status post tracheostomy, dysphagia status post PEG tube placement, chronic anemia, hypothyroidism, hypertension, hyperlipidemia, insulin-dependent type 2 diabetes mellitus, anxiety, depression, ALICIA on BiPAP. Patient presented to [facility] on 03/18/[facility]24 under general surgery services. He was recently discharged from LTAC to nursing facility after being treated for perforated viscus status post multiple surgical interventions. At the patient's nursing facility, there were concern for intra-abdominal infection prompting patient to present back to the hospital. He has been started on Zosyn per surgical team. Hospitalist team was consulted for medical management. Patient seen today. He complains of some SOB and was requesting to be suctioned. He denied CP, abdominal pain, N/V. Discussed sodium levels improved with free water. Objective Vitals and Measurements T: 36.4 C (Oral) TMIN: 36.4 C (Oral) TMAX: 36.5 C (Oral) HR: 69 (Apical) RR: 20 BP: 118/62 SpO2: 93% WT: 115.5 kg Intake and Output 7AM Yesterday to 7AM Today Intake and Output (Last 24 hours) Intake Free Water: 1800.00 Tube Feeding Intake 780.00 Oral Intake 0.00 Output Wound Vac 1 175.00 Urinary Catheter Output: 1950.00 Stool Count 2.00 Diaper Count 3.00 Total Summary Total Intake 2580.00 Total Output 2125.00 Fluid Balance 455.00 Physical Exam General: No acute distress. Alert and Appropriate Skin: No rash. Warm, Dry. Abdominal wound with Wound VAC present HEENT: Head is normocephalic and atraumatic. No lesions. Pupils equal in size. Extraocular movements within normal limits. Nose: No septal deviation. Neck: Supple. Trach present Lungs: Bilaterally diminished breath sounds with no crepitation or wheeze. Unlabored on trach collar Cardiovascular: Heart is regular rhythm, S1S2, No extra-audible heart tones Abdomen: Abdomen is soft, wound present. Bowel sounds positive all four quadrants. Extremities: No clubbing, cyanosis or edema. Peripheral and distal pulses palpable. No calf tenderness. Adequate peripheral circulation. Neurological: The patient is awake, Following simple commands, moving all extremities. Weight Current Weight Dosing Weight: 115.5 kg (03/23/24) Current Weight: 106.2 kg (03/21/24) Dosing Weight: 100.8 kg (03/18/24) Current Weight: 113.1 kg (03/20/24) Medications Medications (27) Active Scheduled: (14) acetylcysteine 20% 500 mg 2.5 mL, Inhalation (INT), BIDRT amLODIPine 5 mg tablet 5 mg 1 tab(s), PEG, qDay atorvastatin 20 mg tablet 20 mg 1 tab(s), PEG, qDay enoxaparin 40 mg/ 0.4mL syringe 40 mg 0.4 mL, Subcutaneous, qDay escitalopram 10 mg tablet 10 mg 1 tab(s), PEG, qDay famotidine 20 mg tablet 20 mg 1 tab(s), PEG, qDay insulin glargine 18 unit(s) 0.18 mL, Subcutaneous (INT), BID insulin lispro 100 units/mL Soln (3 mL) Give 0-10 units/dose, Subcutaneous, q6h ipratropium 0.02% (0.5mg/2.5mL) UD 500 mcg 2.5 mL, Inhalation, TIDRT levothyroxine 50 mcg tablet 50 mcg 1 tab(s), PEG, qDay losartan 100 mg tablet 100 mg 1 tab(s), PEG, qDay metoprolol tartrate 25 mg tablet 25 mg 1 tab(s), PEG, BIDM nystatin susp 100,000 units/mL 5 mL UD 500,000 unit(s) 5 mL, Swish & Swallow, q6h piperacillin-tazobactam PMX 3.375 gram(s) 50 mL, IV Piggyback, q8h Continuous: (0) PRN: (13) acetaminophen 325 mg Tablet 650 mg 2 tab(s), Oral, q4h acetaminophen-OXYcodone 325 mg-5 mg Tablet 1 tab(s), Oral, q4h acetaminophen-OXYcodone 325 mg-5 mg Tablet 2 tab(s), Oral, q4h Al hydrox/Mg hydrox/simethicone 200-200-20 mg/5 mL Susp UD 15 mL, Oral, q4h albuterol 0.083% Soln UD (2.5mg/3 mL) 2.5 mg 3 mL, Inhalation, TIDRT dextrose 50% Solution Disp syringe 50 mL 12.5 gram(s) 25 mL, IV Push, AsDirected guaifenesin 100 mg/5 mL Liquid SUGAR-FREE 120 mL 200 mg 10 mL, PEG, q4h HYDROmorphone 0.5 mg/0.5 mL syringe 0.25 mg 0.25 mL, IV Push, q3h HYDROmorphone 0.5 mg/0.5 mL syringe 0.5 mg 0.5 mL, IV Push, q3h melatonin 3 mg tablet 3 mg 1 tab(s), Oral, qHS melatonin 3 mg tablet 3 mg 1 tab(s), Oral, qHS ondansetron 2 mg/ 1 mL 2 mL INJ 4 mg 2 mL, IV Push, q4h prochlorperazine 10 mg/2 mL vial 5 mg 1 mL, IV Push, q6h Lab Results 03/23 06:47 WBC: 5.8 Hgb: 8.5 L Hct: 26.3 L Platelet: 336 Neutrophil %: 59.3 Glucose Level: 160 H Sodium Level: 145 Potassium Level: 4.4 BUN: 27.0 H Creatinine Lvl (s): 0.71 03/22 13:18 Glucose Level: 185 H Sodium Level: 147 H Potassium Level: 4.2 BUN: 29.0 H Creatinine Lvl (s): 0.72 Imaging Results and Diagnostics XR Swallowing Function Result Date: March 20, 2024 Verified By: CLINICAL STATEMENT: IMPRESSION: CT Abdomen/Pelvis w/Contrast Result Date: March 18, 2024 Verified By: DONNA SAVAGE MD CLINICAL STATEMENT: IMPRESSION: Postsurgical changes along the anterior abdominal wall with diffusesubcutaneous edema and emphysema tracking laterally. A 4.1 x 1.6 cm fluidand air collection is noted along the lateral left abdominal wall and couldreflect developing abscess. Small right pleural effusion with adjacent ar eas of compressiveatelectasis/consolidation. Blocked airways in this area could suggestaspiration. Recommend clinical correlation. Left lower lobe atelectasis/consolidation unchanged. I have personally reviewed the images of this examination and agree with theresident's findings and interpretation. EKG No qualifying data available. Assessment/Plan Intra-abdominal infection with concern for Fluid collection and air Recent perforated viscus status post multiple abdominal surgical interventions Hypernatremia Acute on chronic hypoxic respiratory failure status post tracheostomy placement Dysphagia status post PEG tube placement Chronic anemia Insulin-dependent type 2 diabetes mellitus Hypothyroidism Hypertension Hyperlipidemia Other history of anxiety, depression, ALICIA on BiPAP, obesity Plan Continue management per general surgery team, status post wound VAC placement Wound culture growing Proteus, Pseudomonas and Streptococcus constellatus, Bacteroides fragilis. Patient being treated with Zosyn per primary team. Hypernatremia resolved, continue free water q4h Continue tube feeds via PEG Continue trach collar With acetylcysteine to assist with thinning secretions. To continue to suction as needed. Blood sugars reviewed, continue current regimen with sliding scale insulin every 6 hours, long-acting insulin BID Remainder of chronic conditions are stable, continue current medications Lovenox for DVT prophylaxis Plan discussed with patient. Hospitalist team will sign off, please call with questions Case discussed with Dr. Barrera Digitally Signed by PATRICIA ATKINSON on 03/23/2024 10:00 AM [facility] [id number] Note Date of Service 03/23/24 Chief Complaint sob Subjective 73-year-old male with past medical history of chronic hypoxic respiratory failure status post tracheostomy, dysphagia status post PEG tube placement, chronic anemia, hypothyroidism, hypertension, hyperlipidemia, insulin-dependent type 2 diabetes mellitus, anxiety, depression, ALICIA on BiPAP. Patient presented to [facility] on 03/18/[facility]24 under general surgery services. He was recently discharged from LT[facility] to nursing facility after being treated for perforated viscus status post multiple surgical interventions. At the patient's nursing facility, there were concern for intra-abdominal infection prompting patient to present back to the hospital. He has been started on Zosyn per surgical team. Hospitalist team was consulted for medical management. Patient seen today. He complains of some SOB and was requesting to be suctioned. He denied CP, abdominal pain, N/V. Discussed sodium levels improved with free water. Objective Vitals and Measurements T: 36.4 C (Oral) TMIN: 36.4 C (Oral) TMAX: 36.5 C (Oral) HR: 69 (Apical) RR: 20 BP: 118/62 SpO2: 93% WT: 115.5 kg Intake and Output 7AM Yesterday to 7AM Today Intake and Output (Last 24 hours) Intake Free Water: 1800.00 Tube Feeding Intake 780.00 Oral Intake 0.00 Output Wound Vac 1 175.00 Urinary Catheter Output: 1950.00 Stool Count 2.00 Diaper Count 3.00 Total Summary Total Intake 2580.00 Total Output 2125.00 Fluid Balance 455.00 Physical Exam General: No acute distress. Alert and Appropriate Skin: No rash. Warm, Dry. Abdominal wound with Wound VAC present HEENT: Head is normocephalic and atraumatic. No lesions. Pupils equal in size. Extraocular movements within normal limits. Nose: No septal deviation. Neck: Supple. Trach present Lungs: Bilaterally diminished breath sounds with no crepitation or wheeze. Unlabored on trach collar Cardiovascular: Heart is regular rhythm, S1S2, No extra-audible heart tones Abdomen: Abdomen is soft, wound present. Bowel sounds positive all four quadrants. Extremities: No clubbing, cyanosis or edema. Peripheral and distal pulses palpable. No calf tenderness. Adequate peripheral circulation. Neurological: The patient is awake, Following simple commands, moving all extremities. Weight Current Weight Dosing Weight: 115.5 kg (03/23/24) Current Weight: 106.2 kg (03/21/24) Dosing Weight: 100.8 kg (03/18/24) Current Weight: 113.1 kg (03/20/24) Medications Medications (27) Active Scheduled: (14) acetylcysteine 20% 500 mg 2.5 mL, Inhalation (INT), BIDRT amLODIPine 5 mg tablet 5 mg 1 tab(s), PEG, qDay atorvastatin 20 mg tablet 20 mg 1 tab(s), PEG, qDay enoxaparin 40 mg/ 0.4mL syringe 40 mg 0.4 mL, Subcutaneous, qDay escitalopram 10 mg tablet 10 mg 1 tab(s), PEG, qDay famotidine 20 mg tablet 20 mg 1 tab(s), PEG, qDay insulin glargine 18 unit(s) 0.18 mL, Subcutaneous (INT), BID insulin lispro 100 units/mL Soln (3 mL) Give 0-10 units/dose, Subcutaneous, q6h ipratropium 0.02% (0.5mg/2.5mL) UD 500 mcg 2.5 mL, Inhalation, TIDRT levothyroxine 50 mcg tablet 50 mcg 1 tab(s), PEG, qDay losartan 100 mg tablet 100 mg 1 tab(s), PEG, qDay metoprolol tartrate 25 mg tablet 25 mg 1 tab(s), PEG, BIDM nystatin susp 100,000 units/mL 5 mL UD 500,000 unit(s) 5 mL, Swish & Swallow, q6h piperacillin-tazobactam PMX 3.375 gram(s) 50 mL, IV Piggyback, q8h Continuous: (0) PRN: (13) acetaminophen 325 mg Tablet 650 mg 2 tab(s), Oral, q4h acetaminophen-OXYcodone 325 mg-5 mg Tablet 1 tab(s), Oral, q4h acetaminophen-OXYcodone 325 mg-5 mg Tablet 2 tab(s), Oral, q4h Al hydrox/Mg hydrox/simethicone 200-200-20 mg/5 mL Susp UD 15 mL, Oral, q4h albuterol 0.083% Soln UD (2.5mg/3 mL) 2.5 mg 3 mL, Inhalation, TIDRT dextrose 50% Solution Disp syringe 50 mL 12.5 gram(s) 25 mL, IV Push, AsDirected guaifenesin 100 mg/5 mL Liquid SUGAR-FREE 120 mL 200 mg 10 mL, PEG, q4h HYDROmorphone 0.5 mg/0.5 mL syringe 0.25 mg 0.25 mL, IV Push, q3h HYDROmorphone 0.5 mg/0.5 mL syringe 0.5 mg 0.5 mL, IV Push, q3h melatonin 3 mg tablet 3 mg 1 tab(s), Oral, qHS melatonin 3 mg tablet 3 mg 1 tab(s), Oral, qHS ondansetron 2 mg/ 1 mL 2 mL INJ 4 mg 2 mL, IV Push, q4h prochlorperazine 10 mg/2 mL vial 5 mg 1 mL, IV Push, q6h Lab Results 03/23 06:47 WBC: 5.8 Hgb: 8.5 L Hct: 26.3 L Platelet: 336 Neutrophil %: 59.3 Glucose Level: 160 H Sodium Level: 145 Potassium Level: 4.4 BUN: 27.0 H Creatinine Lvl (s): 0.71 03/22 13:18 Glucose Level: 185 H Sodium Level: 147 H Potassium Level: 4.2 BUN: 29.0 H Creatinine Lvl (s): 0.72 Imaging Results and Diagnostics XR Swallowing Function Result Date: March 20, 2024 Verified By: CLINICAL STATEMENT: IMPRESSION: CT Abdomen/Pelvis w/Contrast Result Date: March 18, 2024 Verified By: DONNA SAVAGE MD CLINICAL STATEMENT: IMPRESSION: Postsurgical changes along the anterior abdominal wall with diffusesubcutaneous edema and emphysema tracking laterally. A 4.1 x 1.6 cm fluidand air collection is noted along the lateral left abdominal wall and couldreflect developing abscess. Small right pleural effusion with adjacent ar eas of compressiveatelectasis/consolidation. Blocked airways in this area could suggestaspiration. Recommend clinical correlation. Left lower lobe atelectasis/consolidation unchanged. I have personally reviewed the images of this examination and agree with theresident's findings and interpretation. EKG No qualifying data available. Assessment/Plan Intra-abdominal infection with concern for Fluid collection and air Recent perforated viscus status post multiple abdominal surgical interventions Hypernatremia Acute on chronic hypoxic respiratory failure status post tracheostomy placement Dysphagia status post PEG tube placement Chronic anemia Insulin-dependent type 2 diabetes mellitus Hypothyroidism Hypertension Hyperlipidemia Other history of anxiety, depression, ALICIA on BiPAP, obesity Plan Continue management per general surgery team, status post wound VAC placement Wound culture growing Proteus, Pseudomonas and Streptococcus constellatus, Bacteroides fragilis. Patient being treated with Zosyn per primary team. Hypernatremia resolved, continue free water q4h Continue tube feeds via PEG Continue trach collar With acetylcysteine to assist with thinning secretions. To continue to suction as needed. Blood sugars reviewed, continue current regimen with sliding scale insulin every 6 hours, long-acting insulin BID Remainder of chronic conditions are stable, continue current medications Lovenox for DVT prophylaxis Plan discussed with patient. Hospitalist team will sign off, please call with questions Case discussed with Dr. Barrera Digitally Signed by PATRICIA ATKINSON on 03/23/2024 10:00 AM [facility] [id number] Note Date of Service 03/22/24 Chief Complaint abdominal pain, sob Subjective 73-year-old male with past medical history of chronic hypoxic respiratory failure status post tracheostomy, dysphagia status post PEG tube placement, chronic anemia, hypothyroidism, hypertension, hyperlipidemia, insulin-dependent type 2 diabetes mellitus, anxiety, depression, ALICIA on BiPAP. Patient presented to [facility] on 03/18/[facility] under general surgery services. He was recently discharged from LTAC to nursing facility after being treated for perforated viscus status post multiple surgical interventions. At the patient's nursing facility, there were concern for intra-abdominal infection prompting patient to present back to the hospital. He has been started on Zosyn per surgical team. Hospitalist team was consulted for medical management. Patient seen today. was bedside. Patient complains of some SOB, feels he needs suctioned. Alsois complaining of some abdominal discomfort. Nurse was bedside planning to medicate. Patient deniedCP, N/V. Objective Vitals and Measurements T: 36.6 C (Oral) TMIN: 36.4 C (Oral) TMAX: 36.6 C (Oral) HR: 70 RR: 20 BP: 114/67 SpO2: 94% Intake and Output 7AM Yesterday to 7AM Today Intake and Output (Last 24 hours) Intake Free Water: 2350.00 Enteral Tube Flush: 30.00 Tube Feeding Intake 1035.00 Oral Intake 0.00 Output Wound Vac 1 675.00 Urinary Catheter Output: 1800.00 Stool Count 0.00 Diaper Count 4.00 Total Summary Total Intake 3415.00 Total Output 2475.00 Fluid Balance 940.00 Physical Exam General: No acute distress. Alert and Appropriate Skin: No rash. Warm, Dry. Abdominal wound with Wound VAC present HEENT: Head is normocephalic and atraumatic. No lesions. Pupils equal in size. Extraocular movements within normal limits. Nose: No septal deviation. Neck: Supple. Trach present Lungs: Bilaterally diminished breath sounds with no crepitation or wheeze. Unlabored on trach collar Cardiovascular: Heart is regular rhythm, S1S2, No extra-audible heart tones Abdomen: Abdomen is soft, wound present. Bowel sounds positive all four quadrants. Extremities: No clubbing, cyanosis or edema. Peripheral and distal pulses palpable. No calf tenderness. Adequate peripheral circulation. Neurological: The patient is awake, Following simple commands, moving all extremities. Weight Current Weight Dosing Weight: 100.8 kg (03/18/24) Current Weight: 106.2 kg (03/21/24) Current Weight: 113.1 kg (03/20/24) Medications Medications (27) Active Scheduled: (14) acetylcysteine 20% 500 mg 2.5 mL, Inhalation (INT), BIDRT amLODIPine 5 mg tablet 5 mg 1 tab(s), PEG, qDay atorvastatin 20 mg tablet 20 mg 1 tab(s), PEG, qDay enoxaparin 40 mg/ 0.4mL syringe 40 mg 0.4 mL, Subcutaneous, qDay escitalopram 10 mg tablet 10 mg 1 tab(s), PEG, qDay famotidine 20 mg tablet 20 mg 1 tab(s), PEG, qDay insulin glargine 18 unit(s) 0.18 mL, Subcutaneous (INT), BID insulin lispro 100 units/mL Soln (3 mL) Give 0-10 units/dose, Subcutaneous, q6h ipratropium 0.02% (0.5mg/2.5mL) UD 500 mcg 2.5 mL, Inhalation, TIDRT levothyroxine 50 mcg tablet 50 mcg 1 tab(s), PEG, qDay losartan 100 mg tablet 100 mg 1 tab(s), PEG, qDay metoprolol tartrate 25 mg tablet 25 mg 1 tab(s), PEG, BIDM nystatin susp 100,000 units/mL 5 mL UD 500,000 unit(s) 5 mL, Swish & Swallow, q6h piperacillin-tazobactam PMX 3.375 gram(s) 50 mL, IV Piggyback, q8h Continuous: (0) PRN: (13) acetaminophen 325 mg Tablet 650 mg 2 tab(s), Oral, q4h acetaminophen-OXYcodone 325 mg-5 mg Tablet 1 tab(s), Oral, q4h acetaminophen-OXYcodone 325 mg-5 mg Tablet 2 tab(s), Oral, q4h Al hydrox/Mg hydrox/simethicone 200-200-20 mg/5 mL Susp UD 15 mL, Oral, q4h albuterol 0.083% Soln UD (2.5mg/3 mL) 2.5 mg 3 mL, Inhalation, TIDRT dextrose 50% Solution Disp syringe 50 mL 12.5 gram(s) 25 mL, IV Push, AsDirected guaifenesin 100 mg/5 mL Liquid SUGAR-FREE 120 mL 200 mg 10 mL, PEG, q4h HYDROmorphone 0.5 mg/0.5 mL syringe 0.25 mg 0.25 mL, IV Push, q3h HYDROmorphone 0.5 mg/0.5 mL syringe 0.5 mg 0.5 mL, IV Push, q3h melatonin 3 mg tablet 3 mg 1 tab(s), Oral, qHS melatonin 3 mg tablet 3 mg 1 tab(s), Oral, qHS ondansetron 2 mg/ 1 mL 2 mL INJ 4 mg 2 mL, IV Push, q4h prochlorperazine 10 mg/2 mL vial 5 mg 1 mL, IV Push, q6h Lab Results 03/21 15:00 Sodium Level: 149 H 03/21 07:01 WBC: 5.4 Hgb: 8.3 L Hct: 26.4 L Platelet: 322 Neutrophil %: 60.8 Glucose Level: 195 H Sodium Level: 151 H Potassium Level: 4.3 BUN: 32.0 H Creatinine Lvl (s): 0.83 Imaging Results and Diagnostics XR Swallowing Function Result Date: March 20, 2024 Verified By: CLINICAL STATEMENT: IMPRESSION: CT Abdomen/Pelvis w/Contrast Result Date: March 18, 2024 Verified By: DONNA SAVAGE MD CLINICAL STATEMENT: IMPRESSION: Postsurgical changes along the anterior abdominal wall with diffusesubcutaneous edema and emphysema tracking laterally. A 4.1 x 1.6 cm fluidand air collection is noted along the lateral left abdominal wall and couldreflect developing abscess. Small right pleural effusion with adjacent ar eas of compressiveatelectasis/consolidation. Blocked airways in this area could suggestaspiration. Recommend clinical correlation. Left lower lobe atelectasis/consolidation unchanged. I have personally reviewed the images of this examination and agree with theresident's findings and interpretation. EKG No qualifying data available. Assessment/Plan Intra-abdominal infection with concern for Fluid collection and air Recent perforated viscus status post multiple abdominal surgical interventions Hypernatremia Acute on chronic hypoxic respiratory failure status post tracheostomy placement Dysphagia status post PEG tube placement Chronic anemia Insulin-dependent type 2 diabetes mellitus Hypothyroidism Hypertension Hyperlipidemia Other history of anxiety, depression, ALICIA on BiPAP, obesity Plan Continue management per general surgery team, status post wound VAC placement Wound culture growing Proteus, Pseudomonas and Streptococcus constellatus, Bacteroides fragilis. Patient being treated with Zosyn per primary team. Sodium improved with increasing free water. Repeat BMP pending for today Continue tube feeds via PEG Continue trach collar With acetylcysteine to assist with thinning secretions. To continue to suction as needed. Blood sugars reviewed, continue current regimen with sliding scale insulin every 6 hours, long-acting insulin BID Remainder of chronic conditions are stable, continue current medications Lovenox for DVT prophylaxis Plan discussed with patient. Hospitalist team will follow Case discussed with Dr. Barrera Digitally Signed by PATRICIA ATKINSON on 03/22/2024 10:32 AM [id number] Note Date of Service 03/22/24 Chief Complaint abdominal pain, sob Subjective 73-year-old male with past medical history of chronic hypoxic respiratory failure status post tracheostomy, dysphagia status post PEG tube placement, chronic anemia, hypothyroidism, hypertension, hyperlipidemia, insulin-dependent type 2 diabetes mellitus, anxiety, depression, ALICIA on BiPAP. Patient presented to [facility] on 03/18[facility]24 under general surgery services. He was recently discharged from [facility] to nursing facility after being treated for perforated viscus status post multiple surgical interventions. At the patient's nursing facility, there were concern for intra-abdominal infection prompting patient to present back to the hospital. He has been started on Zosyn per surgical team. Hospitalist team was consulted for medical management. Patient seen today. was bedside. Patient complains of some SOB, feels he needs suctioned. Alsois complaining of some abdominal discomfort. Nurse was bedside planning to medicate. Patient deniedCP, N/V. Objective Vitals and Measurements T: 36.6 C (Oral) TMIN: 36.4 C (Oral) TMAX: 36.6 C (Oral) HR: 70 RR: 20 BP: 114/67 SpO2: 94% Intake and Output 7AM Yesterday to 7AM Today Intake and Output (Last 24 hours) Intake Free Water: 2350.00 Enteral Tube Flush: 30.00 Tube Feeding Intake 1035.00 Oral Intake 0.00 Output Wound Vac 1 675.00 Urinary Catheter Output: 1800.00 Stool Count 0.00 Diaper Count 4.00 Total Summary Total Intake 3415.00 Total Output 2475.00 Fluid Balance 940.00 Physical Exam General: No acute distress. Alert and Appropriate Skin: No rash. Warm, Dry. Abdominal wound with Wound VAC present HEENT: Head is normocephalic and atraumatic. No lesions. Pupils equal in size. Extraocular movements within normal limits. Nose: No septal deviation. Neck: Supple. Trach present Lungs: Bilaterally diminished breath sounds with no crepitation or wheeze. Unlabored on trach collar Cardiovascular: Heart is regular rhythm, S1S2, No extra-audible heart tones Abdomen: Abdomen is soft, wound present. Bowel sounds positive all four quadrants. Extremities: No clubbing, cyanosis or edema. Peripheral and distal pulses palpable. No calf tenderness. Adequate peripheral circulation. Neurological: The patient is awake, Following simple commands, moving all extremities. Weight Current Weight Dosing Weight: 100.8 kg (03/18/24) Current Weight: 106.2 kg (03/21/24) Current Weight: 113.1 kg (03/20/24) Medications Medications (27) Active Scheduled: (14) acetylcysteine 20% 500 mg 2.5 mL, Inhalation (INT), BIDRT amLODIPine 5 mg tablet 5 mg 1 tab(s), PEG, qDay atorvastatin 20 mg tablet 20 mg 1 tab(s), PEG, qDay enoxaparin 40 mg/ 0.4mL syringe 40 mg 0.4 mL, Subcutaneous, qDay escitalopram 10 mg tablet 10 mg 1 tab(s), PEG, qDay famotidine 20 mg tablet 20 mg 1 tab(s), PEG, qDay insulin glargine 18 unit(s) 0.18 mL, Subcutaneous (INT), BID insulin lispro 100 units/mL Soln (3 mL) Give 0-10 units/dose, Subcutaneous, q6h ipratropium 0.02% (0.5mg/2.5mL) UD 500 mcg 2.5 mL, Inhalation, TIDRT levothyroxine 50 mcg tablet 50 mcg 1 tab(s), PEG, qDay losartan 100 mg tablet 100 mg 1 tab(s), PEG, qDay metoprolol tartrate 25 mg tablet 25 mg 1 tab(s), PEG, BIDM nystatin susp 100,000 units/mL 5 mL UD 500,000 unit(s) 5 mL, Swish & Swallow, q6h piperacillin-tazobactam PMX 3.375 gram(s) 50 mL, IV Piggyback, q8h Continuous: (0) PRN: (13) acetaminophen 325 mg Tablet 650 mg 2 tab(s), Oral, q4h acetaminophen-OXYcodone 325 mg-5 mg Tablet 1 tab(s), Oral, q4h acetaminophen-OXYcodone 325 mg-5 mg Tablet 2 tab(s), Oral, q4h Al hydrox/Mg hydrox/simethicone 200-200-20 mg/5 mL Susp UD 15 mL, Oral, q4h albuterol 0.083% Soln UD (2.5mg/3 mL) 2.5 mg 3 mL, Inhalation, TIDRT dextrose 50% Solution Disp syringe 50 mL 12.5 gram(s) 25 mL, IV Push, AsDirected guaifenesin 100 mg/5 mL Liquid SUGAR-FREE 120 mL 200 mg 10 mL, PEG, q4h HYDROmorphone 0.5 mg/0.5 mL syringe 0.25 mg 0.25 mL, IV Push, q3h HYDROmorphone 0.5 mg/0.5 mL syringe 0.5 mg 0.5 mL, IV Push, q3h melatonin 3 mg tablet 3 mg 1 tab(s), Oral, qHS melatonin 3 mg tablet 3 mg 1 tab(s), Oral, qHS ondansetron 2 mg/ 1 mL 2 mL INJ 4 mg 2 mL, IV Push, q4h prochlorperazine 10 mg/2 mL vial 5 mg 1 mL, IV Push, q6h Lab Results 03/21 15:00 Sodium Level: 149 H 03/21 07:01 WBC: 5.4 Hgb: 8.3 L Hct: 26.4 L Platelet: 322 Neutrophil %: 60.8 Glucose Level: 195 H Sodium Level: 151 H Potassium Level: 4.3 BUN: 32.0 H Creatinine Lvl (s): 0.83 Imaging Results and Diagnostics XR Swallowing Function Result Date: March 20, 2024 Verified By: CLINICAL STATEMENT: IMPRESSION: CT Abdomen/Pelvis w/Contrast Result Date: March 18, 2024 Verified By: DONNA SAVAGE MD CLINICAL STATEMENT: IMPRESSION: Postsurgical changes along the anterior abdominal wall with diffusesubcutaneous edema and emphysema tracking laterally. A 4.1 x 1.6 cm fluidand air collection is noted along the lateral left abdominal wall and couldreflect developing abscess. Small right pleural effusion with adjacent ar eas of compressiveatelectasis/consolidation. Blocked airways in this area could suggestaspiration. Recommend clinical correlation. Left lower lobe atelectasis/consolidation unchanged. I have personally reviewed the images of this examination and agree with theresident's findings and interpretation. EKG No qualifying data available. Assessment/Plan Intra-abdominal infection with concern for Fluid collection and air Recent perforated viscus status post multiple abdominal surgical interventions Hypernatremia Acute on chronic hypoxic respiratory failure status post tracheostomy placement Dysphagia status post PEG tube placement Chronic anemia Insulin-dependent type 2 diabetes mellitus Hypothyroidism Hypertension Hyperlipidemia Other history of anxiety, depression, ALICIA on BiPAP, obesity Plan Continue management per general surgery team, status post wound VAC placement Wound culture growing Proteus, Pseudomonas and Streptococcus constellatus, Bacteroides fragilis. Patient being treated with Zosyn per primary team. Sodium improved with increasing free water. Repeat BMP pending for today Continue tube feeds via PEG Continue trach collar With acetylcysteine to assist with thinning secretions. To continue to suction as needed. Blood sugars reviewed, continue current regimen with sliding scale insulin every 6 hours, long-acting insulin BID Remainder of chronic conditions are stable, continue current medications Lovenox for DVT prophylaxis Plan discussed with patient. Hospitalist team will follow Case discussed with Dr. Barrera Digitally Signed by PATRICIA ATKINSON on 03/22/2024 10:32 AM [facility] [id number] Note Date of Service 03/21/2024 Chief Complaint Medical management Subjective 73-year-old male with past medical history of chronic hypoxic respiratory failure status post tracheostomy, dysphagia status post PEG tube placement, chronic anemia, hypothyroidism, hypertension, hyperlipidemia, insulin-dependent type 2 diabetes mellitus, anxiety, depression, ALICIA on BiPAP. Patient presented to [facility] on 03/18/[facility]24 under general surgery services. He was recently discharged from LT[facility] to nursing facility after being treated for perforated viscus status post multiple surgical interventions. At the patient's nursing facility, there were concern for intra-abdominal infection prompting patient to present back to the hospital. He has been started on Zosyn per surgical team. Hospitalist team was consulted for medical management. Patient seen today resting in bed. His oxygen saturations are stable. Nursing reports an improvement in sputum today. Patient denies chest pain or shortness of breath. No abdominal pain, nausea or vomiting. He is tolerating tube feeds. Discussed increasing his free water to assist with hypernatremia. Objective Vitals and Measurements T: 36.5 C (Oral) TMIN: 36.4 C (Oral) TMAX: 37 C (Oral) HR: 65 RR: 16 BP: 114/58 SpO2: 96% WT: 106.2kg Intake and Output 7AM Yesterday to 7AM Today Intake and Output (Last 24 hours) Intake Free Water: 1490.00 Enteral Tube Flush: 120.00 Oral Intake 0.00 Output Urinary Catheter Output: 1050.00 Gastric Tube Output: 0.00 Stool Count 1.00 Urine Count 1.00 Diaper Count 1.00 Emesis Count 0.00 Total Summary Total Intake 1610.00 Total Output 1050.00 Fluid Balance 560.00 Physical Exam General: No acute distress. Alert and Appropriate Skin: No rash. Warm, Dry. Abdominal wound with Wound VAC present HEENT: Head is normocephalic and atraumatic. No lesions. Pupils equal in size. Extraocular movements within normal limits. Nose: No septal deviation. Neck: Supple. Trach present Lungs: Bilaterally diminished breath sounds with no crepitation or wheeze. Unlabored on trach collar Cardiovascular: Heart is regular rhythm, S1S2, No extra-audible heart tones Abdomen: Abdomen is soft, wound present. Bowel sounds positive all four quadrants. Extremities: No clubbing, cyanosis or edema. Peripheral and distal pulses palpable. No calf tenderness. Adequate peripheral circulation. Neurological: The patient is awake, Following simple commands, moving all extremities. Weight Current Weight Dosing Weight: 100.8 kg (03/18/24) Current Weight: 106.2 kg (03/21/24) Current Weight: 113.1 kg (03/20/24) Medications Medications (27) Active Scheduled: (14) acetylcysteine 20% 500 mg 2.5 mL, Inhalation (INT), BIDRT amLODIPine 5 mg tablet 5 mg 1 tab(s), PEG, qDay atorvastatin 20 mg tablet 20 mg 1 tab(s), PEG, qDay enoxaparin 40 mg/ 0.4mL syringe 40 mg 0.4 mL, Subcutaneous, qDay escitalopram 10 mg tablet 10 mg 1 tab(s), PEG, qDay famotidine 20 mg tablet 20 mg 1 tab(s), PEG, qDay insulin glargine 18 unit(s) 0.18 mL, Subcutaneous (INT), BID insulin lispro 100 units/mL Soln (3 mL) Give 0-10 units/dose, Subcutaneous, q6h ipratropium 0.02% (0.5mg/2.5mL) UD 500 mcg 2.5 mL, Inhalation, TIDRT levothyroxine 50 mcg tablet 50 mcg 1 tab(s), PEG, qDay losartan 100 mg tablet 100 mg 1 tab(s), PEG, qDay metoprolol tartrate 25 mg tablet 25 mg 1 tab(s), PEG, BIDM nystatin susp 100,000 units/mL 5 mL UD 500,000 unit(s) 5 mL, Swish & Swallow, q6h piperacillin-tazobactam PMX 3.375 gram(s) 50 mL, IV Piggyback, q8h Continuous: (0) PRN: (13) acetaminophen 325 mg Tablet 650 mg 2 tab(s), Oral, q4h acetaminophen-OXYcodone 325 mg-5 mg Tablet 1 tab(s), Oral, q4h acetaminophen-OXYcodone 325 mg-5 mg Tablet 2 tab(s), Oral, q4h Al hydrox/Mg hydrox/simethicone 200-200-20 mg/5 mL Susp UD 15 mL, Oral, q4h albuterol 0.083% Soln UD (2.5mg/3 mL) 2.5 mg 3 mL, Inhalation, TIDRT dextrose 50% Solution Disp syringe 50 mL 12.5 gram(s) 25 mL, IV Push, AsDirected guaifenesin 100 mg/5 mL Liquid SUGAR-FREE 120 mL 200 mg 10 mL, PEG, q4h HYDROmorphone 0.5 mg/0.5 mL syringe 0.25 mg 0.25 mL, IV Push, q3h HYDROmorphone 0.5 mg/0.5 mL syringe 0.5 mg 0.5 mL, IV Push, q3h melatonin 3 mg tablet 3 mg 1 tab(s), Oral, qHS melatonin 3 mg tablet 3 mg 1 tab(s), Oral, qHS ondansetron 2 mg/ 1 mL 2 mL INJ 4 mg 2 mL, IV Push, q4h prochlorperazine 10 mg/2 mL vial 5 mg 1 mL, IV Push, q6h Lab Results 03/21 07:01 WBC: 5.4 Hgb: 8.3 L Hct: 26.4 L Platelet: 322 Neutrophil %: 60.8 Glucose Level: 195 H Sodium Level: 151 H Potassium Level: 4.3 BUN: 32.0 H Creatinine Lvl (s): 0.83 03/20 07:08 WBC: 5.4 Hgb: 8.2 L Hct: 25.6 L Platelet: 296 Neutrophil %: 66.5 Glucose Level: 256 H Sodium Level: 148 H Potassium Level: 4.2 BUN: 39.0 H Creatinine Lvl (s): 0.96 Imaging Results and Diagnostics XR Swallowing Function Result Date: March 20, 2024 Verified By: CLINICAL STATEMENT: IMPRESSION: CT Abdomen/Pelvis w/Contrast Result Date: March 18, 2024 Verified By: DONNA SAVAGE MD CLINICAL STATEMENT: IMPRESSION: Postsurgical changes along the anterior abdominal wall with diffusesubcutaneous edema and emphysema tracking laterally. A 4.1 x 1.6 cm fluidand air collection is noted along the lateral left abdominal wall and couldreflect developing abscess. Small right pleural effusion with adjacent ar eas of compressiveatelectasis/consolidation. Blocked airways in this area could suggestaspiration. Recommend clinical correlation. Left lower lobe atelectasis/consolidation unchanged. I have personally reviewed the images of this examination and agree with theresident's findings and interpretation. EKG No qualifying data available. Assessment/Plan Intra-abdominal infection with concern for Fluid collection and air Recent perforated viscus status post multiple abdominal surgical interventions Hypernatremia Acute on chronic hypoxic respiratory failure status post tracheostomy placement Dysphagia status post PEG tube placement Chronic anemia Insulin-dependent type 2 diabetes mellitus Hypothyroidism Hypertension Hyperlipidemia Other history of anxiety, depression, ALICIA on BiPAP, obesity Plan Continue management per general surgery team, status post wound VAC placement Wound culture growing Proteus, Pseudomonas and Streptococcus constellatus, patient being treated with Zosyn. Per general surgery team, patient will likely require IV antibiotics at discharge. Sodium up trended at 151, will increase free water to 300 mL every 4 hours, recheck sodium this afternoon Continue tube feeds via PEG, s/p MBS. Patient was felt to be high risk of aspiration due to severe pharyngeal phase dysphagia recommending tube feeds via PEG moving forward. Continue trach collar With acetylcysteine to assist with thinning secretions. To continue to suction as needed. Blood sugars reviewed, continue current regimen with sliding scale insulin every 6 hours, long-acting insulin BID Remainder of chronic conditions are stable, continue current medications Lovenox for DVT prophylaxis Plan discussed with patient. Hospitalist team will follow Case discussed with Dr. Barrera Digitally Signed by PATRICIA ATKINSON on 03/21/2024 12:03 PM [facility] [id number] Note* Exam Date Time Procedure Performing Provider Status 03/20/24 10:02 AM XR Swallowing Function Modified [id number] ORIGINAL Images acquired, not reported on this accession number. [place] [id number] Note* Exam Date Time Procedure Performing Provider Status 03/19/24 9:20 PM Electrocardiogram - EKG - CV FRANK HESS MD; Auth (Verified) ECG Final Report SINUS RHYTHM NONSPECIFIC T ABNORMALITIES, ANTERIOR LEADS, CONSIDER ISCHEMIA PROLONGED QT INTERVAL Electronic Signature: FRANK HESS MD 03/20/2024 10:43:25 [facility] [id number] Respiratory therapy Hospital Progress note Respiratory Therapy Evaluation Entered On: 03/18/2024 14:24 EST Performed On: 03/18/2024 14:23 EST by Carley Saleh RRT Respiratory Therapy Evaluation RT Assessment [Frequency/Schedule] : Triage score 6-10, change frequency to TIDRT and Albuterol Q2hRT PRN per protocol Carley Saleh RRT - 03/18/2024 16:21 EST Cough (RT) : Weak, non-productive Level of Activity : Temporarily non-ambulatory Respiratory Therapy Evaluation Score : 7 Respiratory Evaluation Triage Score : (6-10) Freq: TIDRT & Albuterol Q2hRT prn Surgical Status : Lower abdominal surgery Carley Saleh [employer] - 03/18/2024 14:45 EST Pulmonary Status : Non-smoker, no previous history Chest X-Ray : Clear/none available/older than 3 days Respiratory Pattern (RT) : RR 10-20 BPM, Regular pattern Breath Sounds (RT) : Diminished due to poor inspiratory effort Mental Status : Alert, oriented and cooperative RT Evaluation Steps : Chart review completed, Assessment completed: RR, HR, Auscultation, Cough, Patient Interview completed Carley Saleh [employer] - 03/18/2024 14:23 EST Digitally Signed by Carley Saleh [employer] O[employer] on 03/18/2024 04:21 PM [facility] [id number] Note* Exam Date Time Procedure Performing Provider Status 03/18/24 4:[address] Abdomen/Pelvis w/Contrast MICHELLE SAVAGE MD; Auth (Verified) [id number] ORIGINAL EXAMINATION: CT OF THE ABDOMEN AND PELVIS WITH CONTRAST 03/18/2024 4:04 pm TECHNIQUE: CT of the abdomen and pelvis was performed with the administration of intravenous contrast. Multiplanar reformatted images are provided for review. Automated exposure control, iterative reconstruction, and/or weight based adjustment of the mA/kV was utilized to reduce the radiation dose to as low as reasonably achievable. COMPARISON: 01/21/2024 HISTORY: ORDERING SYSTEM PROVIDED HISTORY: Reason for Exam: pt unable to speak has a trachea tube, percerner: Abdominal wound drainage/recent abdominal surgery Abdominal wound drainage/recent abdominal surgery. Hernia repair. FINDINGS: Small right pleural effusion adjacent areas of compressive atelectasis/consolidation. Left lower lobe atelectasis/consolidation is similar to prior. Coronary artery calcifications. The liver, pancreas, spleen, and adrenal glands are unremarkable. Cholecystectomy with clips. Symmetric nephrograms. Chronic perinephric fat stranding. Bilateral subcentimeter renal hypodensities are too small to characterize but are likely to be cysts. No calculus or hydronephrosis. The ureters, urinary bladder and prostate are unremarkable. Small bilateral fat containing inguinal hernias. No pelvic or inguinal lymphadenopathy. Postsurgical changes are noted along the anterior abdominal wall with diffuse areas of subcutaneous edema and emphysema. A developing fluid collection is seen at the left flank and measures 4.1 x 1.6 cm (series 2, image 89). Scattered areas of ascites and inflammatory fat stranding seen throughout the mesentery and likely reactive secondary to postoperative changes. The large and small bowel are nondistended. The appendix is unremarkable. Moderate colonic stool burden. Peg tube is noted within the gastric antrum no free intraperitoneal air. No acute osseous findings. Multilevel degenerative changes of the spine. IMPRESSION: Postsurgical changes along the anterior abdominal wall with diffuse subcutaneous edema and emphysema tracking laterally. A 4.1 x 1.6 cm fluid and air collection is noted along the lateral left abdominal wall and could reflect developing abscess. Small right pleural effusion with adjacent areas of compressive atelectasis/consolidation. Blocked airways in this area could suggest aspiration. Recommend clinical correlation. Left lower lobe atelectasis/consolidation unchanged. I have personally reviewed the images of this examination and agree with the resident's findings and interpretation. Interpreted by: Donna Savage Preliminary Report By: Oumou Aden Electronically signed By Donna Savage Dictated Date: 03/18/2024 4:06:16 PM Prelim Date: 03/18/2024 4:34:43 PM Sign Date: 03/18/2024 4:34:43 PM Ordering Provider: [facility]12-18-2024 History and physical note Date of Service March 18, 2024 Chief Complaint Abdominal abscess History of Present Illness Split shared visit with between myself and Dr. Schultz. 73-year-old male who presented to the office today for a wound check. Patient is well-known to the general surgery service. Originally, the patient underwent an elective robotic assisted umbilical hernia repair on January 20, 2024. Postoperatively, the patient developed hypoxia and severe abdominalpain. Due to worsening hypoxia and CT abdomen/pelvis findings that showed concern for perforated viscus, the patient was transferred to the main hospital. Patient was intubated in the surgical ICU. He was taken to the operating room on January 21, 2024 and underwent an exploratory laparotomy, abdominal washout, extraction abdominal wall mesh, debridement of abdominal wall, and placement of ABThera open wound VAC to rule out a perforated viscus. At that time of surgery, no site of perforation was noted. Patient was then brought back to the surgical ICU on mechanical ventilation. Patient underwent second look laparotomy and debridement and closure of abdominal wall on January 23, 2024. Patient was then taken back to the operating room secondary to bile leakage on January 24, 2024 and underwe nt exploratory laparotomy with ABThera placement, cholecystectomy, and EGD secondary to concerns for free air and bile leakage. At that time, no findings were noted to explain the leakage of bile. Patient was then brought back to the surgical ICU. After failed weaning attempts, the patient did undergo percutaneous tracheostomy tube placement on February 04, 2024. Patient was transferred to [facility] on February 07, 2024. Patient was able to be discharged to halfway facility. Patient is nursing facility did call the office on Saturday, March 16, 2024 with concerns about the patient's abdominal wound/wound VAC. Patient is seen in the office today for evaluation. Patient states that he is feeling well. He denies any shortness of breath, chest pain, nausea, or vomiting. He denies any abdominal pain. He states he feels as if his strength is improving. Review of Systems All pertinent positives and negatives are stated in the HPI above. All other review of systems are considered negative unless otherwise stated above. Physical Exam Vitals and Measurements No qualifying data available. General Appearance: In no acute distress. Head: Normocephalic, atraumatic. EENT: Mucous membranes are dry. Neck: Supple. Cardiac: Regular S1-S2. No gallops, rubs, or murmur noted. Lungs: Clear to auscultation bilaterally. Chest rise symmetrical. Abdomen: Wound VAC is taken down. The largest portion of the abdominal wound is clean. There is tunneling noted at the bilateral edges that does have foul- smelling purulent drainage noted. Neurological: Alert and oriented, follows simple commands. Skin: Normal for ethnicity. No jaundice, pallor, or diaphoresis noted. Psychiatric: Calm and cooperative. Lab Results No 36 Hour Lab Data Assessment/Plan 73-year-old male well-known to the general surgery service secondary to multiple abdominal surgeries who presented to the office today with an abdominal wound infection. Upon evaluation, there is significant tunneling and foul- smelling/purulent drainage noted. We will admit the patient to the main hospital for treatment. We will obtain a CT abdomen/pelvis and keep the patient NPO. Depending on findings of the diagnostic testing, patient may need debridement in the operating room versus IR drainplacement. We will start the patient on IV antibiotics as well. Plan of care is discussed in detailwith the patient. I did speak with the patient's to also advise her of the plan of care. All qu estions and concerns were addressed and answered. Case discussed with Dr. Schultz. Addendum to follow. Problem List/Past Medical History Ongoing DM type 2, goal HbA1c < 7.5% Hernia centeral/midline, ventricle (large) Hernia, umbilical History of basal cell carcinoma (BCC) of skin, nose History of COVID-19 History of ventral hernia HTN, goal below 140/90 Hyperlipidemia LDL goal <100 Hypothyroidism in adult Increased BMI Increased BMI (body mass index) Laceration of skin of right hand Medicare annual wellness visit, subsequent Non-smoker Risk and functional assessment Screening for abdominal aortic aneurysm Screening for cardiovascular condition Screening for colorectal cancer Screening for glaucoma Screening for prostate cancer Vitamin D deficiency Historical Basal cell carcinoma of nose COVID-19 virus infection Overweight Procedure/Surgical History PEG - Percutaneous endoscopic gastrostomy: 02/25/24 Trachelectomy (cervicectomy), 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 CLOSURE OF ABDOMINAL WALL: 01/28/24 Laparotomy: 01/24/24 Cholecystectomy: 01/24/24 Laparotomy: 01/21/24 Hernia repair: 01/20/24 Colonoscopy: 09/29/08 Surgery Surgery Hernia Medications Home Medications (11) Active amLODIPine 5 mg oral tablet 5 mg = 1 tab(s), Oral, qDay atorvastatin 20 mg oral tablet 20 mg = 1 tab(s), Oral, qDay Farxiga 10 mg oral tablet 10 mg = 1 tab(s), Oral, qDay HumaLOG Mix 50/50 KwikPen 3 mL PEN 15 unit(s), Subcutaneous, BID levothyroxine 25 mcg (0.025 mg) oral tablet 50 mcg = 2 tab(s), Oral, qDay losartan 100 mg oral tablet 100 mg = 1 tab(s), Oral, qDay MetFORMIN (Eqv-Glucophage XR) 500 mg oral tablet, EXTENDED RELEASE 1,000 mg = 2 tab(s), Oral, BID metoprolol succinate 25 mg oral TABLET extended release 25 mg = 1 tab(s), Oral, qDay Ozempic 4 mg/3 mL (1 mg dose) subcutaneous solution 1 mg, Subcutaneous, qWeek Vitamin D (3) 45 units oral capsule Vitamin D with Minerals oral tablet 1 tab(s), Oral, qDay Allergies NKA Social History Alcohol Use: Current. Type: Liquor. Frequency: Daily. Has alcohol use interfered with work or home life: No., 01/20/2024 Home/Environment Living situation: Home/Independent. Domestic Concerns: None. Lives In: Multilevel home. Spouse Name: JESSICA. Marital Status: ., 01/17/2024 Nutrition/Health Type of diet: Diabetic. Caffeine intake amount: Pop. Eating Difficulties None., 01/20/2024 Substance Abuse Use: Never., 09/29/2018 Tobacco Nicotine Use: Former smoker, quit more than 30 days ago. Type: Cigarettes. Number of years: 30., 01/17/2024 Family History Heart disease: Father. Hodgkin disease: Sister. Hypertension: Mother and Father. Stroke: Sister. Health Status Family Member(s) Immunizations pneumococcal 13-valent conjugate vaccine: 0.5 unknown unit (07/12/17) pneumococcal 23-valent vaccine(Pneumovax: 0 unknown unit (12/22/15) SARS-CoV-2 (COVID-19) Ad26 vaccine: 0.5 unknown unit (06/09/20) SARS-CoV-2 mRNA (tozinameran) vaccine: 0.3 unknown unit (02/25/21) tetanus/diphth/pertuss (Tdap) adult/adol: 0.5 unknown unit (10/13/22) zoster vaccine live: 0 unknown unit (01/21/16) Code Status No qualifying data available. Digitally Signed by ALIDA MANRIQUEZ on 03/18/2024 12:13 PM [facility] [id number] Note Date of Service 03/18/2024 Chief Complaint Medical management History of Present Illness 73-year-old male with past medical history of hypertension, type 2 diabetes mellitus, OSAon BiPAP, Hypothyroidism. The patient has had a complicated surgical history recently and was last discharged from [facility] on [facility] 17, [facility] to [facility] after being treated in hospital for a perforated viscus that required multiple surgical interventions, ultimately the patient got a tracheostomy. He presents back to the hospital on the recommendation of general surgery because of concern for intra-abdominal infection. Hospital service is consulted for medical management. At the time that I saw the patient he had no acute complaints Review of Systems 14 point review of system performed and is negative except for what stated in HPI Physical Exam Vitals and Measurements T: 36.9 C (Oral) HR: 97 (Monitored) RR: 18 BP: 131/68 SpO2: 92% HT: 177.8 cm WT: 100.8 kg BMI: 31.89 Weight Dosing Weight: 100.8 kg (03/18/24) GENERAL: Pt is comfortable in bed. Appears in no acute distress. HEENT: Mucous membranes pink and moist, tracheostomy in situ. NEURO: Alert Respiratory system: Chest clear Abdomen: Dressings in periumbilical region slightly soaked and foul-smelling. No guarding or rebound tenderness Lab Results 03/18 12:35 WBC: 7.5 Hgb: 9.5 L Hct: 30.3 L Platelet: 296 Neutrophil %: 68.3 Protime: 11.7 PT International Ratio: 1.0 Glucose Level: 166 H Sodium Level: 148 H Potassium Level: 4.5 BUN: 51.0 H Creatinine Lvl (s): 0.95 Assessment/Plan 1. Concern for intra-abdominal infection 2. Type 2 diabetes mellitus 3. History of hypertension 4. Respiratory failure status post tracheostomy 5. Hypernatremia Plan: The patient's vital signs are stable. His home blood pressure meds have been resumed. He takes metoprolol succinate which cannot be crushed via PEG tube, therefore will change to Lopressor, I did notsee a strong indication for a beta- josefina but since this is one of his home meds will continue with a beta-josefina until we get further clarification Slightly hypernatremic, on D5 half-normal saline, will follow-up with morning BMP Continue Lantus 18 units twice daily which is his home meds, he also takes Jardiance and metformin,will hold his oral diabetic meds and keep him on sliding scale insulin. Breathing comfortably via trach collar, continue oxygen supplementation to maintain SpO2 greater than or equal to 90%. Antibiotics as per primary team, I would recommend that if there is a prolonged need for antibiotics that the primary team consult infectious disease Recommend pharmacological DVT prophylaxis if okay with primary team Thank you for allowing us to participate in the management of this patient, will continue to follow. Problem List/Past Medical History Ongoing DM type 2, goal HbA1c < 7.5% Hernia centeral/midline, ventricle (large) Hernia, umbilical History of basal cell carcinoma (BCC) of skin, nose History of COVID-19 History of ventral hernia HTN, goal below 140/90 Hyperlipidemia LDL goal <100 Hypothyroidism in adult Increased BMI Increased BMI (body mass index) Laceration of skin of right hand Medicare annual wellness visit, subsequent Non-smoker Risk and functional assessment Screening for abdominal aortic aneurysm Screening for cardiovascular condition Screening for colorectal cancer Screening for glaucoma Screening for prostate cancer Vitamin D deficiency Historical Basal cell carcinoma of nose COVID-19 virus infection Overweight Procedure/Surgical History PEG - Percutaneous endoscopic gastrostomy: 02/25/24 Trachelectomy (cervicectomy), 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 CLOSURE OF ABDOMINAL WALL: 01/28/24 Laparotomy: 01/24/24 Cholecystectomy: 01/24/24 Laparotomy: 01/21/24 Hernia repair: 01/20/24 Colonoscopy: 09/29/08 Surgery Surgery Hernia Medications Home Medications (28) Active acetaminophen 650 mg, PRN, Rectal, q4h acetaminophen 650 mg, PRN, Rectal, q4h acetylcysteine 10% inhalation solution 0.5 gram(s) = 5 mL, Inhalation, BID aluminum hydroxide/magnesium hydroxide/simethicone 400 mg-400 mg-40 mg/5 mL oral suspension 20 mL, Oral, QID amLODIPine 5 mg oral tablet 5 mg = 1 tab(s), Oral, qDay atorvastatin 20 mg oral tablet 20 mg = 1 tab(s), Oral, qDay biotin 5 mg/mL oral liquid , PRN bisacodyl 10 mg, PRN, Rectal, qDay empagliflozin 25 mg oral tablet 25 mg = 1 tab(s), PEG, qAM escitalopram 10 mg oral tablet 10 mg = 1 tab(s), PEG, qDay famotidine 20 mg oral tablet 20 mg = 1 tab(s), PEG, qDay Farxiga 10 mg oral tablet 10 mg = 1 tab(s), Oral, qDay Fleet Enema 133 mL, PRN, Rectal, qDay guaiFENesin 10 mL, PRN, PEG, q4h guaiFENesin 600 mg, PEG, q12h HumaLOG Mix 50/50 KwikPen 3 mL PEN 15 unit(s), Subcutaneous, BID ipratropium 500 mcg/2.5 mL inhalation solution 500 mcg = 2.5 mL, PRN, Inhalation, QID Lantus 18 unit(s), Subcutaneous, BID levothyroxine 25 mcg (0.025 mg) oral tablet 50 mcg = 2 tab(s), Oral, qDay losartan 100 mg oral tablet 100 mg = 1 tab(s), Oral, qDay MetFORMIN (Eqv-Glucophage XR) 500 mg oral tablet, EXTENDED RELEASE 1,000 mg = 2 tab(s), Oral, BID metoprolol succinate 25 mg oral TABLET extended release 25 mg = 1 tab(s), Oral, qDay Milk of Magnesia 30, PRN, PEG, qDay Ozempic 4 mg/3 mL (1 mg dose) subcutaneous solution 1 mg, Subcutaneous, qWeek Stress with Zinc 1 tab(s), PEG, qDay Vitamin C 500 mg oral tablet 500 mg = 1 tab(s), PEG, qDay Vitamin D (3) 45 units oral capsule Vitamin D with Minerals oral tablet 1 tab(s), Oral, qDay Allergies NKA Social History Alcohol Use: Current. Type: Liquor. Frequency: Daily. Has alcohol use interfered with work or home life: No., 01/20/2024 Home/Environment Living situation: Home/Independent. Domestic Concerns: None. Lives In: Multilevel home. Spouse Name: JESSICA. Marital Status: ., 01/17/2024 Nutrition/Health Type of diet: Diabetic. Caffeine intake amount: Pop. Eating Difficulties None., 01/20/2024 Substance Abuse Use: Never., 09/29/2018 Tobacco Nicotine Use: Former smoker, quit more than 30 days ago. Type: Cigarettes. Number of years: 30., 01/17/2024 Family History Heart disease: Father. Hodgkin disease: Sister. Hypertension: Mother and Father. Stroke: Sister. Health Status Family Member(s) Immunizations pneumococcal 13-valent conjugate vaccine: 0.5 unknown unit (07/12/17) pneumococcal 23-valent vaccine(Pneumovax: 0 unknown unit (12/22/15) SARS-CoV-2 (COVID-19) Ad26 vaccine: 0.5 unknown unit (06/09/20) SARS-CoV-2 mRNA (tozinameran) vaccine: 0.3 unknown unit (02/25/21) tetanus/diphth/pertuss (Tdap) adult/adol: 0.5 unknown unit (10/13/22) zoster vaccine live: 0 unknown unit (01/21/16) Code Status Code Status - Ordered -- 03/18/24 12:24:00 EST, Full Code, Constant Order Digitally Signed by SHIRIN FLETCHER MD on 03/18/2024 02:34 PM [facility] [id number] Evaluation + Plan noteExtracted from: Title:History and Physical Author:ALIDA MANRIQUEZ PRN-UPHOLSTERY INSTRUCTOR Date:03/18/24 73-year-old male well-known to the general surgery service secondary to multiple abdominal surgeries who presented to the office today with an abdominal wound infection. Upon evaluation, there is significant tunneling and foul- smelling/purulent drainage noted. We will admit the patient to the main hospital for treatment. We will obtain a CT abdomen/pelvis and keep the patient NPO. Depending on findings of the diagnostic testing, patient may need debridement in the operating room versus IR drain placement. We will start the patient on IV antibiotics as well. Plan of care is discussed in detail with the patient. I did speak with the patient's to also advise her of the plan of care. All questions and concerns were addressed and answered. Case discussed with Dr. Schultz. Addendum to follow. Addendum by SALVADOR BOWMAN on March 18, 2024 14:51:17 EST Surgery attending note: Patient seen and examined. Please see above history and physical by Alida Manriquez CNP for details. Patient clinically does not appear septic and is not having any increased abdominal pain or weakness. He has been very slowly gaining strength [facility]. He is not complaining of any abdominal pain. He is afebrile and has a normal white count. However examination of his wound does reveal that he has fairly extensive recesses or undermining between the abdominal muscular fascial wall and the skin on both the right and left side as well as inferiorly and these areas are all draining fairly copious amounts of tannish-yellow pus but there is not really any associated cellulitis and there does not clinically appear to be any trapped abscesses. I think the patient needs some more definitive wound care to help clear up these areas. Will consider doing that by more aggressive saline packing in the deep recessed areas to encourage drainage and clean these areas up with frequent dressing changes versus potentially using a wound VAC with white sponge to go in the deep recessed areas and encourage better drainage. Will await the results of the abdominal CT scan to make sure there is no apparent communication with any intra-abdominal collections and then consider consulting wound care for the possible placement of a wound VAC with the use of the saline moistened white sponge to access the deep recessed areas. On the midline there was fairly extensive amount of residual purulent exudate and eschar that was off and I sharply debrided at the bedside today very easily to remove most of the remaining exposed eschar. At this point the midline wound appears to be healed with no sign of any obvious herniation. The patient is awake and alert and coherent and is asking when he might be able to start to drink orally. He still has a trach collar and is being fed by a PEG tube anteriorly and as of yet has not been allowed to swallow due to concerns about his poor pharyngeal motility and swallowing mechanism. We will have speech therapy reevaluate him while he is here to see if he is yet ready for oral intake. Future Appointments Appointment Date:04/08/2024 10:50:00 AM Scheduled Provider:SALVADOR BOWMAN MD Location:[facility] Appointment Type:GS OV Post Op Appointment Date:06/30/2024 03:20:00 PM Scheduled Provider:KELLEY HERNANDEZ PICK UP WORKER - UPHOLSTERY INSTRUCTOR Location:[facility] Appointment Type:PC OV Follow Up Future Scheduled Tests Laboratory* Prostate Specific Antigen 06/30/24 * Thyroid Stimulating Hormone 06/30/24 * Thyroid Stimulating Hormone 01/24/24 * Thyroid Stimulating Hormone 07/19/23 * Free T4 06/30/24 * Free T4 01/24/24 * Free T4 07/19/23 * A1C Hemoglobin 06/30/24 * A1C Hemoglobin 01/24/24 * A1C Hemoglobin 07/19/23 * Complete Blood Count 07/19/23 * Lipid Profile 06/30/24 * Albumin/Creatinine Ratio, Random Urine 06/30/24 * Albumin/Creatinine Ratio, Random Urine 01/24/24 * Albumin/Creatinine Ratio, Random Urine 07/19/23 * Vitamin D Level 06/30/24 * Vitamin D Level 07/19/23 * Complete Metabolic Panel 06/30/24 * Complete Metabolic Panel 01/24/24 * Complete Metabolic Panel 07/19/23 [facility] 12-18-2024 Hospital Discharge instructions Follow Up Care 03/18/2024 11:37:35 With:[facility], Address:Unknown When:1-2 days With:KELLEY HERNANDEZ Address: [address] [place] [address] [place] [address]- Business (1) When:1-2 days [facility] 12-18-2024 History and physical note Date of Service March 18, 2024 Chief Complaint Abdominal abscess History of Present Illness Split shared visit with between myself and Dr. Schultz. 73-year-old male who presented to the office today for a wound check. Patient is well-known to the general surgery service. Originally, the patient underwent an elective robotic assisted umbilical hernia repair on January 20, 2024. Postoperatively, the patient developed hypoxia and severe abdominalpain. Due to worsening hypoxia and CT abdomen/pelvis findings that showed concern for perforated viscus, the patient was transferred to the [facility]. Patient was intubated in the surgical ICU. He was taken to the operating room on January 21, 2024 and underwent an exploratory laparotomy, abdominal washout, extraction abdominal wall mesh, debridement of abdominal wall, and placement of ABThera open wound VAC to rule out a perforated viscus. At that time of surgery, no site of perforation was noted. Patient was then brought back to the surgical ICU on mechanical ventilation. Patient underwent second look laparotomy and debridement and closure of abdominal wall on January 23, 2024. Patient was then taken back to the operating room secondary to bile leakage on January 24, 2024 and underwe nt exploratory laparotomy with ABThera placement, cholecystectomy, and EGD secondary to concerns for free air and bile leakage. At that time, no findings were noted to explain the leakage of bile. Patient was then brought back to the surgical ICU. After failed weaning attempts, the patient did undergo percutaneous tracheostomy tube placement on February 04, 2024. Patient was transferred to [facility] on February 07, 2024. Patient was able to be discharged to halfway facility. Patient is nursing facility did call the office on Saturday, March 16, 2024 with concerns about the patient's abdominal wound/wound VAC. Patient is seen in the office today for evaluation. Patient states that he is feeling well. He denies any shortness of breath, chest pain, nausea, or vomiting. He denies any abdominal pain. He states he feels as if his strength is improving. Review of Systems All pertinent positives and negatives are stated in the HPI above. All other review of systems are considered negative unless otherwise stated above. Physical Exam Vitals and Measurements No qualifying data available. General Appearance: In no acute distress. Head: Normocephalic, atraumatic. EENT: Mucous membranes are dry. Neck: Supple. Cardiac: Regular S1-S2. No gallops, rubs, or murmur noted. Lungs: Clear to auscultation bilaterally. Chest rise symmetrical. Abdomen: Wound VAC is taken down. The largest portion of the abdominal wound is clean. There is tunneling noted at the bilateral edges that does have foul- smelling purulent drainage noted. Neurological: Alert and oriented, follows simple commands. Skin: Normal for ethnicity. No jaundice, pallor, or diaphoresis noted. Psychiatric: Calm and cooperative. Lab Results No 36 Hour Lab Data Assessment/Plan 73-year-old male well-known to the general surgery service secondary to multiple abdominal surgeries who presented to the office today with an abdominal wound infection. Upon evaluation, there is significant tunneling and foul- smelling/purulent drainage noted. We will admit the patient to the main hospital for treatment. We will obtain a CT abdomen/pelvis and keep the patient NPO. Depending on findings of the diagnostic testing, patient may need debridement in the operating room versus IR drainplacement. We will start the patient on IV antibiotics as well. Plan of care is discussed in detailwith the patient. I did speak with the patient's to also advise her of the plan of care. All qu estions and concerns were addressed and answered. Case discussed with Dr. Schultz. Addendum to follow. Problem List/Past Medical History Ongoing DM type 2, goal HbA1c < 7.5% Hernia centeral/midline, ventricle (large) Hernia, umbilical History of basal cell carcinoma (BCC) of skin, nose History of COVID-19 History of ventral hernia HTN, goal below 140/90 Hyperlipidemia LDL goal <100 Hypothyroidism in adult Increased BMI Increased BMI (body mass index) Laceration of skin of right hand Medicare annual wellness visit, subsequent Non-smoker Risk and functional assessment Screening for abdominal aortic aneurysm Screening for cardiovascular condition Screening for colorectal cancer Screening for glaucoma Screening for prostate cancer Vitamin D deficiency Historical Basal cell carcinoma of nose COVID-19 virus infection Overweight Procedure/Surgical History PEG - Percutaneous endoscopic gastrostomy: 02/25/24 Trachelectomy (cervicectomy), 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 CLOSURE OF ABDOMINAL WALL: 01/28/24 Laparotomy: 01/24/24 Cholecystectomy: 01/24/24 Laparotomy: 01/21/24 Hernia repair: 01/20/24 Colonoscopy: 09/29/08 Surgery Surgery Hernia Medications Home Medications (11) Active amLODIPine 5 mg oral tablet 5 mg = 1 tab(s), Oral, qDay atorvastatin 20 mg oral tablet 20 mg = 1 tab(s), Oral, qDay Farxiga 10 mg oral tablet 10 mg = 1 tab(s), Oral, qDay HumaLOG Mix 50/50 KwikPen 3 mL PEN 15 unit(s), Subcutaneous, BID levothyroxine 25 mcg (0.025 mg) oral tablet 50 mcg = 2 tab(s), Oral, qDay losartan 100 mg oral tablet 100 mg = 1 tab(s), Oral, qDay MetFORMIN (Eqv-Glucophage XR) 500 mg oral tablet, EXTENDED RELEASE 1,000 mg = 2 tab(s), Oral, BID metoprolol succinate 25 mg oral TABLET extended release 25 mg = 1 tab(s), Oral, qDay Ozempic 4 mg/3 mL (1 mg dose) subcutaneous solution 1 mg, Subcutaneous, qWeek Vitamin D (3) 45 units oral capsule Vitamin D with Minerals oral tablet 1 tab(s), Oral, qDay Allergies NKA Social History Alcohol Use: Current. Type: Liquor. Frequency: Daily. Has alcohol use interfered with work or home life: No., 01/20/2024 Home/Environment Living situation: Home/Independent. Domestic Concerns: None. Lives In: Multilevel home. Spouse Name: JESSICA. Marital Status: ., 01/17/2024 Nutrition/Health Type of diet: Diabetic. Caffeine intake amount: Pop. Eating Difficulties None., 01/20/2024 Substance Abuse Use: Never., 09/29/2018 Tobacco Nicotine Use: Former smoker, quit more than 30 days ago. Type: Cigarettes. Number of years: 30., 01/17/2024 Family History Heart disease: Father. Hodgkin disease: Sister. Hypertension: Mother and Father. Stroke: Sister. Health Status Family Member(s) Immunizations pneumococcal 13-valent conjugate vaccine: 0.5 unknown unit (07/12/17) pneumococcal 23-valent vaccine(Pneumovax: 0 unknown unit (12/22/15) SARS-CoV-2 (COVID-19) Ad26 vaccine: 0.5 unknown unit (06/09/20) SARS-CoV-2 mRNA (tozinameran) vaccine: 0.3 unknown unit (02/25/21) tetanus/diphth/pertuss (Tdap) adult/adol: 0.5 unknown unit (10/13/22) zoster vaccine live: 0 unknown unit (01/21/16) Code Status No qualifying data available. Digitally Signed by ALIDA MANRIQUEZ on 03/18/2024 12:13 PM [facility] [id number] Hospital Discharge instructions Patient Education 02/07/2024 18:05:31 Hernia, Adult Hernia, Adult A hernia is the bulging of an organ or tissue through a weak spot in the muscles of the abdomen (abdominal wall). Hernias develop most often near the belly button (navel) or the area where the leg meets the lower abdomen (groin). Common types of hernias include: Incisional hernia. This type bulges through a scar from an abdominal surgery. Umbilical hernia. This type develops near the navel. Inguinal hernia. This type develops in the groin or scrotum. Femoral hernia. This type develops under the groin, in the upper thigh area. Hiatal hernia. This type occurs when part of the stomach slides above the muscle that separates theabdomen from the chest (diaphragm). What are the causes? This condition may be caused by: Heavy lifting. Coughing over a long period of time. Straining to have a bowel movement. Constipation can lead to straining. An incision made during an abdominal surgery. A physical problem that is present at (congenital defect). Being overweight or obese. Smoking. Excess fluid in the abdomen. Undescended testicles in males. What are the signs or symptoms? The main symptom is a skin-colored, rounded bulge in the area of the hernia. However, a bulge may not always be present. It may grow bigger or be more visible when you cough or strain (such as when lifting something heavy). A hernia that can be pushed back into the area (is reducible) rarely causes pain. A hernia that cannot be pushed back into the area (is incarcerated) may lose its blood supply (become strangulated). A hernia that is incarcerated may cause: Pain. Fever. Nausea and vomiting. Swelling. Constipation. How is this diagnosed? A hernia may be diagnosed based on: Your symptoms and medical history. A physical exam. Your health care provider may ask you to cough or move in certain ways to see if the hernia becomes visible. Imaging tests, such as: ?X-rays. ?Ultrasound. ?CT scan. How is this treated? A hernia that is small and painless may not need to be treated. A hernia that is large or painful may be treated with surgery. Inguinal hernias may be treated with surgery to prevent incarceration orstrangulation. Strangulated hernias are always treated with surgery because a lack of blood supply to the trapped organ or tissue can cause it to . Surgery to treat a hernia involves pushing the bulge back into place and repairing the weak area ofthe muscle or abdominal wall. Follow these instructions at home: Activity Avoid straining. Do not lift anything that is heavier than 10 lb (4.5 kg), or the limit that you are told, until your health care provider says that it is safe. When lifting heavy objects, lift with your leg muscles, not your back muscles. Preventing constipation Take actions to prevent constipation. Constipation leads to straining with bowel movements, which can make a hernia worse or cause a hernia repair to break down. Your health care provider may recommend that you: ?Drink enough fluid to keep your urine pale yellow. ?Eat foods that are high in fiber, such as fresh fruits and vegetables, whole grains, and beans. ?Limit foods that are high in fat and processed sugars, such as fried or sweet foods. ?Take an zlhk-rud-ysxcdan or prescription medicine for constipation. General instructions When coughing, try to cough gently. You may try to push the hernia back in place by very gently pressing on it while lying down. Do nottry to force the bulge back in if it will not push in easily. If you are overweight, work with your health care provider to lose weight safely. Do not use any products that contain nicotine or tobacco, such as cigarettes and e-cigarettes. If you need help quitting, ask your health care provider. If you are scheduled for hernia repair, watch your hernia for any changes in shape, size, or color.Tell your health care provider about any changes or new symptoms. Take iuas-fwm-tpbsjqv and prescription medicines only as told by your health care provider. Keep all follow-up visits as told by your health care provider. This is important. Contact a health care provider if: You develop new pain, swelling, or redness around your hernia. You have signs of constipation, such as: ?Fewer bowel movements in a week than normal. ?Difficulty having a bowel movement. ?Stools that are dry, hard, or larger than normal. Get help right away if: You have a fever. You have abdomen pain that gets worse. You feel nauseous or you vomit. You cannot push the hernia back in place by very gently pressing on it while lying down. Do not tryto force the bulge back in if it will not push in easily. The hernia: ?Changes in shape, size, or color. ?Feels hard or tender. These symptoms may represent a serious problem that is an emergency. Do not wait to see if the symptoms will go away. Get medical help right away. Call your local emergency services (464 in the [place] Summary A hernia is the bulging of an organ or tissue through a weak spot in the muscles of the abdomen (abdominal wall). The main symptom is a skin-colored, rounded lump (bulge) in the hernia area. However, a bulge may not always be present. It may grow bigger or more visible when you cough or strain (such as when having a bowel movement). A hernia that is small and painless may not need to be treated. A hernia that is large or painful may be treated with surgery. Surgery to treat a hernia involves pushing the bulge back into place and repairing the weak part ofthe abdomen. This information is not intended to replace advice given to you by your health care provider. Make sure you discuss any questions you have with your health care provider. Document Released: 03/18/2006 Document Revised: 07/09/2019 Document Reviewed: 12/18/2017 Chinese Online Patient Education 2020 [employer]. Follow Up Care 01/21/2024 10:59:03 With:KELLEY HERNANDEZ Address: [address] [place] [address]- Business (1) When:1-2 days [facility] 11-08-2024 Note Discharge Instructions Thank you for allowing [facility] to assist you with your healthcare needs. The following is importantdischarge information regarding your hospital visit. Your Care Team KELLEY HERNANDEZ APRN - ARNIE What to do next Scheduled Follow-Up Appointments Appointment Type When With Where Contact Information StatusPC OV Follow Up 06/30/2024 03:20 PM EDT KELLEY HERNANDEZ PICK UP WORKER - UPHOLSTERY INSTRUCTOR [facility] Confirmed Follow Up Appointments Follow Up with KELLEY HERNANDEZ When:Within 1-2 days Where:[address] [place] [address] Business (1) The Following Activity and Diet Have Been Ordered for You No qualifying data available. No qualifying data available. The Following Equipment Has Been Ordered for You No qualifying data available. The Following Treatments Have Been Ordered for You Discharge Labs No qualifying data available. Discharge Radiology No qualifying data available. Other Therapies No qualifying data available. Post Acute Orders No qualifying data available. Someone Will Contact You Regarding These Home Health Referrals No home referrals have been ordered for you. No one will call you. Allergies NKA Medications Please ask your primary doctor or pharmacist before taking any other medication not listed, including over the counter drugs, herbal medications, vitamins and or supplements as they may interact withyour home medications. What How Much When Why Instructions Last Dose Unchanged amLODIPine (amLODIPine 5 mg oral tablet) 1 tab(s) by mouth Once a day Unchanged atorvastatin (atorvastatin 20 mg oral tablet) 1 tab(s) by mouth Once a day Hyperlipidemia LDL goal <100 Duration: 90 Days Unchanged cholecalciferol (Vitamin D (3) 45 units oral capsule) Unchanged dapagliflozin (Farxiga 10 mg oral tablet) 1 tab(s) by mouth Once a day Unchanged insulin lispro-insulin lispro protamine (Humalog Mix) (HumaLOG Mix 50/ 50 KwikPen 3 mL PEN) 15 unit(s) Subcutaneous Two (2) times a day Unchanged levothyroxine (levothyroxine 25 mcg (0.025 mg) oral tablet) 2 tab(s) by mouth Once a day Hypothyroidism in adult Duration: 90 Days Unchanged losartan (losartan 100 mg oral tablet) 1 tab(s) by mouth Once a day HTN, goal below 140/90 Duration: 90 Days Unchanged metFORMIN (MetFORMIN (Eqv-Glucophage XR) 500 mg oral tablet, EXTENDED RELEASE) 2 tab(s) by mouth Two (2) times a day Unchanged metoprolol (metoprolol succinate 25 mg oral TABLET extended release) 1 tab(s) by mouth Once a day HTN, goal below 140/90 Duration: 90 Days Do not crush or chew (controlled release) Unchanged multivitamin with minerals (Vitamin D with Minerals oral tablet) 1 tab(s) by mouth Once a day Unchanged semaglutide (Ozempic 4 mg/ 3 mL (1 mg dose) subcutaneous solution) 1 Milligram Subcutaneous Every week Please take this list to your next doctor s visit. Bring all medications you take, including over the counter medications, herbals and other supplements with you to your doctor s visit. Patients and families are reminded to discard old lists and to update any records with all medication providers or retail pharmacies. Education Materials Hernia, Adult A hernia is the bulging of an organ or tissue through a weak spot in the muscles of the abdomen (abdominal wall). Hernias develop most often near the belly button (navel) or the area where the leg meets the lower abdomen (groin). Common types of hernias include: Incisional hernia. This type bulges through a scar from an abdominal surgery. Umbilical hernia. This type develops near the navel. Inguinal hernia. This type develops in the groin or scrotum. Femoral hernia. This type develops under the groin, in the upper thigh area. Hiatal hernia. This type occurs when part of the stomach slides above the muscle that separates theabdomen from the chest (diaphragm). What are the causes? This condition may be caused by: Heavy lifting. Coughing over a long period of time. Straining to have a bowel movement. Constipation can lead to straining. An incision made during an abdominal surgery. A physical problem that is present at (congenital defect). Being overweight or obese. Smoking. Excess fluid in the abdomen. Undescended testicles in males. What are the signs or symptoms? The main symptom is a skin-colored, rounded bulge in the area of the hernia. However, a bulge may not always be present. It may grow bigger or be more visible when you cough or strain (such as when lifting something heavy). A hernia that can be pushed back into the area (is reducible) rarely causes pain. A hernia that cannot be pushed back into the area (is incarcerated) may lose its blood supply (become strangulated). A hernia that is incarcerated may cause: Pain. Fever. Nausea and vomiting. Swelling. Constipation. How is this diagnosed? A hernia may be diagnosed based on: Your symptoms and medical history. A physical exam. Your health care provider may ask you to cough or move in certain ways to see if the hernia becomes visible. Imaging tests, such as: ? X-rays. ? Ultrasound. ? CT scan. How is this treated? A hernia that is small and painless may not need to be treated. A hernia that is large or painful may be treated with surgery. Inguinal hernias may be treated with surgery to prevent incarceration orstrangulation. Strangulated hernias are always treated with surgery because a lack of blood supply to the trapped organ or tissue can cause it to . Surgery to treat a hernia involves pushing the bulge back into place and repairing the weak area ofthe muscle or abdominal wall. Follow these instructions at home: Activity Avoid straining. Do not lift anything that is heavier than 10 lb (4.5 kg), or the limit that you are told, until your health care provider says that it is safe. When lifting heavy objects, lift with your leg muscles, not your back muscles. Preventing constipation Take actions to prevent constipation. Constipation leads to straining with bowel movements, which can make a hernia worse or cause a hernia repair to break down. Your health care provider may recommend that you: ? Drink enough fluid to keep your urine pale yellow. ? Eat foods that are high in fiber, such as fresh fruits and vegetables, whole grains, and beans. ? Limit foods that are high in fat and processed sugars, such as fried or sweet foods. ? Take an ezrs-pqs-zpfxzbs or prescription medicine for constipation. General instructions When coughing, try to cough gently. You may try to push the hernia back in place by very gently pressing on it while lying down. Do nottry to force the bulge back in if it will not push in easily. If you are overweight, work with your health care provider to lose weight safely. Do not use any products that contain nicotine or tobacco, such as cigarettes and e-cigarettes. If you need help quitting, ask your health care provider. If you are scheduled for hernia repair, watch your hernia for any changes in shape, size, or color.Tell your health care provider about any changes or new symptoms. Take islp-qvx-tqeskrg and prescription medicines only as told by your health care provider. Keep all follow-up visits as told by your health care provider. This is important. Contact a health care provider if: You develop new pain, swelling, or redness around your hernia. You have signs of constipation, such as: ? Fewer bowel movements in a week than normal. ? Difficulty having a bowel movement. ? Stools that are dry, hard, or larger than normal. Get help right away if: You have a fever. You have abdomen pain that gets worse. You feel nauseous or you vomit. You cannot push the hernia back in place by very gently pressing on it while lying down. Do not tryto force the bulge back in if it will not push in easily. The hernia: ? Changes in shape, size, or color. ? Feels hard or tender. These symptoms may represent a serious problem that is an emergency. Do not wait to see if the symptoms will go away. Get medical help right away. Call your local emergency services (911 in the [place] Summary A hernia is the bulging of an organ or tissue through a weak spot in the muscles of the abdomen (abdominal wall). The main symptom is a skin-colored, rounded lump (bulge) in the hernia area. However, a bulge may not always be present. It may grow bigger or more visible when you cough or strain (such as when having a bowel movement). A hernia that is small and painless may not need to be treated. A hernia that is large or painful may be treated with surgery. Surgery to treat a hernia involves pushing the bulge back into place and repairing the weak part ofthe abdomen. This information is not intended to replace advice given to you by your health care provider. Make sure you discuss any questions you have with your health care provider. Document Released: 03/18/2006 Document Revised: 07/09/2019 Document Reviewed: 12/18/2017 Chinese Online Patient Education 2020 [employer]. Additional Information VACCINATE! IT SAVES LIVES! Members of the community who have not yet received the COVID-19 vaccine and would like to receive it can visit one of [facility] vaccine clinics. There are many vaccine clinic locations within the [facility]. For locations and available times, please visit https://[email or web address].[place].gov/. It is important to note that some COVID mobile vaccine clinics are held outdoors and may be canceled in rainy or stormy conditions. To learn more about pediatric vaccinations (ages 5-11), we invite you to visit the [facility] webpage. [email or web address] learn more about the COVID-19 vaccine, we invite you to visit the CDC website for a list of frequently asked questions.https://www.cdc.gov/coronavirus/2019-ncov/vaccines/faq.html [facility] Patient Portal Access Instructions: Stay connected with your healthcare team and access your personal medical information anytime with the [facility] Patient Portal. Please follow the directions below to create your [facility] account: 1.Access the email account you provided upon registration to the hospital/physician office.2.Look for an invitation email from [facility].3.Open the email and access the invitation link: AcceptInvitation to [facility].4.Fill in the required egan to create your account. To access your account, visit [email or web address]. Click the blue button labeled Access Patient Portal and then log in with the username and password that you created in the steps above. You will be able to view your test results, lab results, a summary of your visits, upcoming appointments and more. There is also a convenient messaging option where you can send secure messages to your p Pronotavider. In addition, you will have the ability to download any documents or summaries to your computer and/or send the information securely to a physician. Remember that your healthcare information is confidential, so carefully consider who you will allowto register on the [facility] Patient Portal for access to your information. You can also access the [facility] Patient Portal on the [facility] mendy. Simply click on Patient Portal and then log into your account. If you would like to receive a full copy of your medical records, please contact the [facility] Medical Records Department by calling [phone], Saturday through Saturday between 8 a.m. and 4:30 p.m. HOW TO SAFELY DISPOSE OF PRESCRIPTION MEDICATIONS Please use one of the following methods to safely dispose of your unused medications. 1.Use a drug disposal kit: the drug disposal pouch allows you to safely discard your old and unuseddrugs. Ask your nurse to give you one when you are discharged.2.Visit a local take-back location: Many local pharmacies and police departments have programs that collect old and unwanted prescriptiondrugs. Call your local pharmacy or go to http://bit.ly/1R1Wh9b to find one close to you.3.Make use of household items: Use cat litter or old coffee grounds to dispose medications if other options arenot available. Mix your drugs with these household products, seal them in an airtight container andthrow it into the garbage. Call [facility]: [phone] to be sure your drugs can be disposed of in this way. Some medicines may require a different approach.4.Never flush your medications down the toilet. IF YOU HAVE BEEN PRESCRIBED AN OPIOID FOR PAIN If you have been prescribed an opioid (such as hydrocodone, oxycodone or morphine), it is critical to understand the possible side effects and risks of opioid pain medications. Even when taken as directed, opioids can have several side effects including: Tolerance, meaning you might need to take more of a medication for the same pain relief. Nausea, vomiting and/or constipation. Sleepiness, dizziness, dry mouth, confusion, depression or itching. Physical dependence, meaning you have withdrawal symptoms when a medication is stopped, can develop within a few days. KNOW YOUR RESPONSIBILITIES It is important to know exactly how much and how often to take the opioid pain medications you are prescribed. Never take opioids in higher amounts or more often than prescribed. Do not combine opioids with alcohol or other drugs that cause drowsiness, such as benzodiazepines, also known as benzos, including diazepam and alprazolam, muscle relaxants or sleep aids. Never sell or share prescription opioids. This is illegal. Store opioids in a secure place and out of reach of others (including children, family, friends and visitors). The last page of this document has been signed and retained as a CHART COPY. Signatures Patient Education Materials Hernia, Adult Medication Leaflets My discharge plan and instructions have been reviewed and explained to me and I,CORINNE CORREA understand my current condition and have read and understand these discharge instructions. I have received a written copy of the plan/instructions. If I have questions, I am aware that I should contact my doctor. 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 He is able to nod yes and no appropriately. Continues to endorse abdominal pain. States his respiratory status is improving. Objective Vitals and Measurements T: 37.0 C (Oral) TMIN: 37.0 C (Oral) TMAX: 37.5 C (Oral) HR: 75 (Monitored) RR: 27 BP: 163/49 SpO2: 96% Intake and Output 7AM Yesterday to 7AM Today Intake and Output (Last 24 hours) Intake Free Water: 1200.00 Tube Feeding Intake 1088.00 Oral Intake 0.00 Output Wound Vac 1 300.00 Urinary Catheter Output: 1600.00 Stool Count 5.00 Total Summary Total Intake 2288.00 Total Output 1900.00 Fluid Balance 388.00 Physical Exam General Appearance: In no acute distress. Head: Normocephalic, atraumatic. EENT: Tracheostomy in place. Dobbhoff in place. Neck: Supple. Lungs: Chest rise symmetrical. Abdomen: Soft, diffuse tenderness noted. Nondistended, no guarding or rigidity noted. Neurological: Alert, follows simple commands. Skin: Normal for ethnicity. No jaundice, pallor, or diaphoresis noted. Psychiatric: Calm and cooperative. Weight Dosing Weight: 127.1 kg (01/23/24) Dosing Weight: 127.1 kg (01/21/24) Medications Medications (21) Active Scheduled: (11) albuterol - ipratropium 2.5 mg-0.5 mg/3 mL Inhal Cheryl UD 3 mL, Inhalation, q6hRT amLODIPine 10 mg tablet 10 mg 1 tab(s), Nasogastric, qDay budesonide 0.5 mg/2 mL Susp UD 0.5 mg 2 mL, Inhalation, BIDRT carvedilol 12.5 mg tablet 37.5 mg 3 tab(s), Nasogastric, BIDM cefTRIAXone IVP syringe 2 gram(s) 20 mL, IV Push (INT), qDay chlorhexidine topical 0.12% Liquid (60 mL) 15 mL, Swish & Spit, QID famotidine 20 mg tablet 20 mg 1 tab(s), Nasogastric, qDay heparin 5,000 units/mL (1 mL) vial 5,000 unit(s) 1 mL, Subcutaneous, q8h insulin isophane human recombinant 100 units/ml (10 mL) Inj 18 unit(s) 0.18 mL, Subcutaneous, q8h ocular lubricant - Ointment 3.5 gram(s) 1 mendy, Eyes, both, q8h ocular lubricant preserved Soln 15 mL 1 drop(s), Eyes, both, q8h Continuous: (1) insulin regular 100 unit(s) + NS Premix Diluent 100 mL 100 mL, Intravenous PRN: (9) acetaminophen-HYDROcodone 325-5 mg tablet 1 tab(s), Oral, q4h acetaminophen-HYDROcodone 325-5 mg tablet 2 tab(s), Oral, q6h dextrose 50% Solution Disp syringe 50 mL 25 g 50 mL, IV Push, AsDirected fentaNYL 50 mcg/mL (2mL) ampule 50 mcg 1 mL, IV Push, q15min fentaNYL 50 mcg/mL (2mL) ampule 25 mcg 0.5 mL, IV Push, q15min hydralazine 20 mg/mL (1mL) vial 10 mg 0.5 mL, IV Push, q4h insulin regular human recombinant 100 units/ml (10 mL) Solution sliding scale insulin, Subcutaneous, q4h ocular lubricant - Ointment 3.5 gram(s) 1 mendy, Eyes, both, AsDirected ocular lubricant preserved Soln 15 mL 1 drop(s), Eyes, both, AsDirected Lab Results 02/06 03:26 WBC: 10.3 Hgb: 9.8 L Hct: 28.6 L Platelet: 515 H Neutrophil %: 81.3 H Glucose Level: 178 H Sodium Level: 148 H Potassium Level: 4.0 BUN: 85.0 H Creatinine Lvl (s): 1.74 H 02/05 04:40 WBC: 10.0 Hgb: 10.6 L Hct: 30.9 L Platelet: 540 H Neutrophil %: 84.2 H Glucose Level: 183 H Sodium Level: 149 H Potassium Level: 4.2 BUN: 78.0 H Creatinine Lvl (s): 1.56 H EKG No qualifying data available. Assessment/Plan 73-year-old male who underwent a robotic assisted umbilical hernia repair and subsequently developed abdominal sepsis and respiratory failure secondary to bilious leakage. Patient has had multiple trips to the operating room. Most recently, the patient is postoperative day #3 following a percutaneous tracheostomy due to failed attempts of weaning from mechanical ventilation. Patient continues to do well with the tracheostomy and will be placed on trach shield today. Patient is okay for physicaland Occupational Therapy. Patient was okayed for transfer to LTAC today. 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 Plan of care is discussed in detail with the patient and her daughter. All questions and concerns of addressed answered. Case discussed with Dr. Bowman. Addendum to follow. Digitally Signed by ALIDA MANRIQUEZ on 02/07/2024 09:45 AM [id number] Note Date of Service 02/07/2024 Bella Correa is a 73-year-old male with a past medical history of hypertension, diabetes mellitus,ALICIA on BiPAP, morbid obesity, dyslipidemia, hypothyroidism, former smoker (quit 15 years ago), daily alcohol use (2 shots of bourbon a day) who was [facility]. Heunderwent robotic assisted umbilical hernia repair on 01/20/[address] Bowman. Postop, he had persistent abdominal pain and hypoxia requiring oxygen so he was admitted to the hospital overnight. After surgery, oxygen requirements increased, he developed a whole-body rash, decreased urine output and increasing abdominal distention. He was found to have an AJ after receiving Farxiga, ibuprofen and Lasix. CT abdomen pelvis showed possible perforation with free air and free fluid. NG tube wasplaced and he was transferred to [facility] on 01/20. He was intubated upon arrival for significant tachypnea, increased work of breathing and hypoxia. Post intubation he became hypotensive with a lactic acid of 5.0 and was given 2 L LR and norepinephrine initiated. 01/20 He is now status post robotic assisted diagnostic laparoscopy, exploratory laparotomy, abdominal washout, extraction of abdominal wall mesh, debridement of abdominal wall and placement of open abdominal wound VAC per Dr. Bowman and Dr. Schultz. He was found to have diffuse widespread bile peritonitis with modest amount of bile-stained fluid in all quadrants of the abdomen, no feculent peritonitis and no site of perforation or leakage. He was brought to the SICU postprocedure on mechanicalventilation. He became progressively more hypotensive requiring 2 pressors. Central line and arterial line placed. He developed an AJ, lactic acidosis and A-fib with rapid ventricular rate. He was given a dose of digoxin, 300 mg bolus of amiodarone and started on a amiodarone drip. 01/22 He underwent a second laparotomy, removal of wound VAC, debridement and closure of abdominal wall by Dr. Bowman. He was found to have no sign of bile leakage. The abdominal wound around the area of the umbilicus was discolored, soupy and somewhat necrotic, the fascia was able to be closed intraoperatively. Post-operatively he developed significant thrombocytopenia with platelets in the 60s, likely sepsis induced. 01/23 pressor requirements increased, he was noted to have bile leak from one of his laparoscopic sites along with abdominal distention and hypoxia. He is now status post EGD, exploratory laparotomy,cholecystectomy, and wound VAC placement per Dr. Lovelace and Dr. Bowman. There was no perforationidentified, a wound vac was applied along with 3 MADDY drains in his right abdomen and 2 MADDY drains in h is left abdomen. A right sided chest tube was also inserted for a pneumothorax and moderate/large pleural effusion which had a output of 800 mL upon placement. 01/25 Tmax 39.2, was pancultured with 1 blood culture from 01/24 positive GPC's JD pending. He had increased oxygen requirements requiring 90% FiO2 and 8 of PEEP. Converted from atrial fibrillationto normal sinus rhythm however QTc on EKG greater than 500 so amiodarone drip discontinued. 01/27, status post removal of wound VAC, abdominal exploration, closure of abdominal wall, MADDY drainx 5 remain intact. Intraoperative found healthy viable bowel with minimal fluid, did not appear bilious and had no sign of pus or GI leakage. Found small amount of remaining subcutaneous fat heavily bile-stained from initial operation, appeared less viable and was sharply debrided off. Midline fascia closed relatively easily. 02/01 acute DVT involving left gastrocnemius vein 02/02-Extubated after CPAP trial and placed on high flow nasal cannula. Continue to have excessive secretions requiring frequent suctioning. Then continued to have ongoing and persistent hypoxia and decision was made to reintubate. Tracheostomy placed 02/03 24 Hour Summary: Febrile yesterday, pancultured and C. difficile rechecked, day 7 of Rocephin. Hypertensive with blood pressure in the 140s to 171, with heart rate sinus rhythm in the 70s and 80s. Scheduled dose of Norvasc 10 mg continued and Lopressor discontinued and Coreg 25 mg twice daily ordered. Hydralazine as needed x 1 dose/24 hours. Remains trached to the ventilator assist-control 24, tidal volume 500, FiO2 30% PEEP of 5. CPAP trial 10 hours yesterday. Remains on Nepro tube feeds at 50 cc an hour. ttempted to decrease free water, unfortunately sodium level yesterday elevated to 149, free water increased to 400 cc every 6 hours, sodium level this a.m. 148. Blood sugars slightly improved overnight after increasing NPH to 18 units subcutaneous every 8 hours and intermittent sliding scale insulin. Nephrology following. Objective Vitals and Measurements T: 37 C (Oral) TMIN: 37 C (Oral) TMAX: 37.7 C (Oral) HR: 80 (Monitored) RR: 29 BP: 157/56 SpO2: 96% Intake and Output 7AM Yesterday to 7AM Today Intake and Output (Last 24 hours) Intake Free Water: 1200.00 Tube Feeding Intake 694.00 Oral Intake 0.00 Output Wound Vac 1 200.00 Urinary Catheter Output: 1300.00 Stool Count 4.00 Total Summary Total Intake 1894.00 Total Output 1500.00 Fluid Balance 394.00 Physical Exam General: Follows simple commands, generalized weakness Head: Normocephalic, atraumatic ENT: PERRLA, eyes: 3+, brisk, oral: Mucous membranes dry, tracheostomy in place, NG with continuoustube feed Neck: Supple, no JVD Cardiac: Regular rate and rhythm, normal S1-S2 without murmurs rubs or gallops Respiratory: Lungs coarse bilaterally, respirations easy with ventilator, rate 24, TV 500, Fio 40% and PEEP of 5 Abdomen: Obese, round, distended, semifirm, multiple laparoscopic sites noted with damaris intact, large mid abdominal wound VAC in place, Delacruz draining clear yellow urine, TF at 50cc hr. Musculoskeletal: No joint deformities Extremities: 1+ pulses, 2+ generalized edema Neurological: alert, follows simple commands, generalized weakness. Skin: Warm, dry, intact Weight Dosing Weight: 127.1 kg (01/23/24) Medications Medications (21) Active Scheduled: (11) albuterol - ipratropium 2.5 mg-0.5 mg/3 mL Inhal Cheryl UD 3 mL, Inhalation, q6hRT amLODIPine 10 mg tablet 10 mg 1 tab(s), Nasogastric, qDay budesonide 0.5 mg/2 mL Susp UD 0.5 mg 2 mL, Inhalation, BIDRT carvedilol 25 mg tablet 25 mg 1 tab(s), Oral, BIDM cefTRIAXone IVP syringe 2 gram(s) 20 mL, IV Push (INT), qDay chlorhexidine topical 0.12% Liquid (60 mL) 15 mL, Swish & Spit, QID famotidine 20 mg tablet 20 mg 1 tab(s), Nasogastric, qDay heparin 5,000 units/mL (1 mL) vial 5,000 unit(s) 1 mL, Subcutaneous, q8h insulin isophane human recombinant 100 units/ml (10 mL) Inj 18 unit(s) 0.18 mL, Subcutaneous, q8h ocular lubricant - Ointment 3.5 gram(s) 1 mendy, Eyes, both, q8h ocular lubricant preserved Soln 15 mL 1 drop(s), Eyes, both, q8h Continuous: (1) insulin regular 100 unit(s) + NS Premix Diluent 100 mL 100 mL, Intravenous PRN: (9) acetaminophen-HYDROcodone 325-5 mg tablet 1 tab(s), Oral, q4h acetaminophen-HYDROcodone 325-5 mg tablet 2 tab(s), Oral, q6h dextrose 50% Solution Disp syringe 50 mL 25 g 50 mL, IV Push, AsDirected fentaNYL 50 mcg/mL (2mL) ampule 50 mcg 1 mL, IV Push, q15min fentaNYL 50 mcg/mL (2mL) ampule 25 mcg 0.5 mL, IV Push, q15min hydralazine 20 mg/mL (1mL) vial 10 mg 0.5 mL, IV Push, q4h insulin regular human recombinant 100 units/ml (10 mL) Solution sliding scale insulin, Subcutaneous, q4h ocular lubricant - Ointment 3.5 gram(s) 1 mendy, Eyes, both, AsDirected ocular lubricant preserved Soln 15 mL 1 drop(s), Eyes, both, AsDirected Lab Results Event Name Event Result Date/Time WBC 10.3 10^3/mcL 02/07/24 03:26:00 Hgb 9.8 G/dL Low 02/07/24 03:26:00 Hct 28.6 % Low 02/07/24 03:26:00 Platelet 515 10^3/mcL High 02/07/24 03:26:00 Glucose Level 178 mg/dL High 02/07/24 03:26:00 Sodium Level 148 mEq/L High 02/07/24 03:26:00 Potassium Level 4 mEq/L 02/07/24 03:26:00 Chloride 114 mEq/L High 02/07/24 03:26:00 CO2 23 mEq/L 02/07/24 03:26:00 BUN 85 mg/dL High 02/07/24 03:26:00 Creatinine Lvl (s) 1.74 mg/dL High 02/07/24 03:26:00 Calcium Ionized 0.95 mmol/L Low 02/07/24 03:26:00 EKG No qualifying data available. Assessment/Plan 1. Acute respiratory failure requiring intubation 01/21/2024 with continued mechanical ventilation 2. Status post removal of wound VAC, abdominal exploration, closure of abdominal wall 01/27 3. Pneumoperitoneum with bile leak status post robotic assisted diagnostic laparoscopic, exploratory lap, abdominal washout, extraction of abdominal wall with mesh, debridement of abdominal wall and placement of open abdominal wound VAC (01/21/2024), second look laparotomy, removal of wound VAC, debridement and closure of abdominal wall (01/23/2024) and exploratory lap, cholecystectomy, wound VACplacement, right side chest tube placement (01/24/2024) 4. Umbilical hernia status post robotic assisted umbilical hernia preperitoneal repair with mesh (01/20/2024) 5. Acute kidney injury, improving 6. Septic shock resolved 7. Atrial fibrillation RVR resolved, remains in sinus rhythm 8. DVT involving left gastrocnemius vein 9. Poor nutritional status 10. Hypernatremia-improving 11. History of hypertension, diabetes mellitus, ALICIA on BiPAP, dyslipidemia, hypothyroidism, morbid obesity, daily alcohol use, and former smoker 12. GI prophylaxis 13. DVT prophylaxis 14. CODE STATUS Plan: 1. Continue mechanical ventilation with current settings, VAP/SBT protocols in place. 2. Continue intermittent Trinity and fentanyl for pain control. 3. Continue amlodipine 10 mg ng daily and Coreg 25 mg NG twice daily 3. Continue Nepro 50 mL/h for nutritional support 4. Free water 400 mL every 6 hours for hypernatremia 4. Continue NPH 18 units subcutaneously every 8 hours with intermittent sliding scale for glucose control 5. Ceftriaxone 2 g daily, today is day 7 of a 7-day course. Max temp overnight 37.7. Pancultured yesterday. Blood and sputum culture no growth to date. 6. Nephrology following for AJ, has not required hemodialysis, continue to monitor creatinine 7. Pepcid 20 mg IV daily for GI prophylaxis 8. SCDs for DVT prophylaxis, chemical prophylaxis when appropriate 9. PT/OT following 10. Social work following for LTAC placement for rehabilitation 11. CBC and BMP in a.m. 12. Full code Assessment and plan of care to be discussed with [employer], see addendum to follow Critical Care time 40 minutes Used voice recognition software for this dictation, please be aware for typos and grammatical errors Digitally Signed by SHERON POLLARD on 02/07/2024 08:06 AM [facility] [id number] Note Date of Service 02/07/24 Reason for Consultation Admission From: Other: [facility] Wound vac care Skin Team Findings Vitals and Measurements T: 37.0 C (Oral) TMIN: 37.0 C (Oral) TMAX: 37.5 C (Oral) HR: 75 (Monitored) RR: 27 BP: 163/49 SpO2:96% Pressure Area Details ------Incision/Wound------ Abdomen Anterior - Incision, Wound Cleansing: Cleaned with normal saline Abdomen Anterior - Incision, Wound Dressing Assessment: Dry, Intact Abdomen Anterior - Incision, Wound Dressing/Activity: Changed Abdomen Anterior - Incision, Wound Dressing: Petroleum gauze, Vacuum assisted closure Abdomen Anterior - Incision, Wound Surrounding Tissue: Erythema, Edematous, Induration (periwound redness much improved/retracted) Abdomen Anterior - Incision, Wound Topical Agent: Medihoney (Leptospermum Honey) Abdomen Anterior - Neg Pressure Wound Therapy Dressing: Black Sponge Abdomen Anterior - Negative Pressure Wound SettinmmHg Abdomen Anterior - Skin Abnormality Color: Brown, Red, White, Yellow Abdomen Anterior - Skin Abnormality Pattern: Depressed Abdomen Anterior - Skin Abnormality Type: Surgical incision Abdomen Anterior - Wound Associated Pain: None Abdomen Anterior - Wound Bed Tissue Type: Granulation, Necrotic tissue, slough, Other: Fascia 30% Abdomen Anterior - Wound Drainage Device: Negative pressure wound system Abdomen Anterior - Wound Edge: Attached to wound bed, Incision open, Sutured, Unattached to wound bed 3 tension sutures distal 2 sutures on periwound areas built up with Ismael strips & covered withDuoDERM Abdomen Anterior - Wound Exudate Amount: Moderate Abdomen Anterior - Wound Exudate Odor: None Abdomen Anterior - Wound Exudate Type: Serous Abdomen Anterior - Wound Percent Granulated: 50 % Abdomen Anterior - Wound Percent Necrotic Tissue Slough: 20 % Abdomen Anterior - Wound Status: Improving Abdomen Anterior - Wound Undermining Location: 4 & 8 o'clock Abdomen Left Lateral - Incision, Wound Cleansing: Cleaned with normal saline Abdomen Left Lateral - Incision, Wound Dressing Assessment: Clean, Dry, Intact Abdomen Left Lateral - Incision, Wound Dressing/Activity: Changed Abdomen Left Lateral - Incision, Wound Dressing: Hydrocolloid (Duoderm), Silver Impregnated Dressing (Aquacel Ag) Abdomen Left Lateral - Incision, Wound Surrounding Tissue: Erythema, Edematous Abdomen Left Lateral - Incision, Wound Topical Agent: Antibiotic ointment Abdomen Left Lateral - Skin Abnormality Color: Red, Yellow Abdomen Left Lateral - Skin Abnormality Pattern: Scattered Abdomen Left Lateral - Skin Abnormality Type: Medical adhesive skin injury Abdomen Left Lateral - Wound Bed Tissue Type: Granulation, Necrotic tissue, slough, Other: crust Abdomen Left Lateral - Wound Exudate Amount: Moderate Abdomen Left Lateral - Wound Exudate Odor: None Abdomen Left Lateral - Wound Exudate Type: Serous Abdomen Left Lateral - Wound Status: Improving Abdomen Right Lateral - Incision, Wound Dressing Assessment: Clean, Dry, Intact Abdomen Right Lateral - Incision, Wound Dressing/Activity: Assessed Abdomen Right Lateral - Incision, Wound Dressing: Gauze dressing Abdomen Right Multiple scattered - Incision, Wound Dressing: Open to air Abdomen Right Multiple scattered - Incision, Wound Surrounding Tissue: Erythema Abdomen Right Multiple scattered - Skin Abnormality Color: Red, Yellow Abdomen Right Multiple scattered - Skin Abnormality Pattern: Scattered Abdomen Right Multiple scattered - Skin Abnormality Type: Medical adhesive skin injury Assessments and Recommendations ------Assessments------ Current Skin/Wound Interventions: Hospital bed, Low air loss mattress, Bariatric bed, Turn and position system, Turn and reposition every 2 hours Present For Wound Observation: Nurse ------Recommendations------ Recommended Skin/Wound Interventions: Low air loss mattress, Bariatric bed, Seat cushion, Turn and position system, Turn and reposition every 2 hours, Consult Dietitian, Proposed orders sent to physician, Other: Wound vac applied & recommended orders, skin team to change MWF 02/06: Recommend continue wound vac treatment Education Individuals Taught: Patient, Family member Learning Readiness: critical condition Barriers to Learning: Acuity of illness Teaching Method: Demonstration, Explanation Problem List/Past Medical History Ongoing DM type 2, goal HbA1c < 7.5% Hernia centeral/midline, ventricle (large) Hernia, umbilical History of basal cell carcinoma (BCC) of skin, nose History of COVID-19 History of ventral hernia HTN, goal below 140/90 Hyperlipidemia LDL goal <100 Hypothyroidism in adult Increased BMI Increased BMI (body mass index) Laceration of skin of right hand Medicare annual wellness visit, subsequent Non-smoker Risk and functional assessment Screening for abdominal aortic aneurysm Screening for cardiovascular condition Screening for colorectal cancer Screening for glaucoma Screening for prostate cancer Vitamin D deficiency Historical Basal cell carcinoma of nose COVID-19 virus infection Overweight Digitally Signed by CLAUDIA Brown on 02/07/2024 09:11 AM [facility] [id number] [facility] Progress note Date of Service 02/07/2024 Chief Complaint Abdominal pain Subjective Patient resting comfortably in bed. He is able to nod yes and no appropriately. Continues to endorse abdominal pain. States his respiratory status is improving. Objective Vitals and Measurements T: 37.0 C (Oral) TMIN: 37.0 C (Oral) TMAX: 37.5 C (Oral) HR: 75 (Monitored) RR: 27 BP: 163/49 SpO2:96% Intake and Output 7AM Yesterday to 7AM Today Intake and Output (Last 24 hours) Intake Free Water: 1200.00 Tube Feeding Intake 1088.00 Oral Intake 0.00 Output Wound Vac 1 300.00 Urinary Catheter Output: 1600.00 Stool Count 5.00 Total Summary Total Intake 2288.00 Total Output 1900.00 Fluid Balance 388.00 Physical Exam General Appearance: In no acute distress. Head: Normocephalic, atraumatic. EENT: Tracheostomy in place. Dobbhoff in place. Neck: Supple. Lungs: Chest rise symmetrical. Abdomen: Soft, diffuse tenderness noted. Nondistended, no guarding or rigidity noted. Neurological: Alert, follows simple commands. Skin: Normal for ethnicity. No jaundice, pallor, or diaphoresis noted. Psychiatric: Calm and cooperative. Weight Dosing Weight: 127.1 kg (01/23/24) Dosing Weight: 127.1 kg (01/21/24) Medications Medications (21) Active Scheduled: (11) albuterol - ipratropium 2.5 mg-0.5 mg/3 mL Inhal Cheryl UD 3 mL, Inhalation, q6hRT amLODIPine 10 mg tablet 10 mg 1 tab(s), Nasogastric, qDay budesonide 0.5 mg/2 mL Susp UD 0.5 mg 2 mL, Inhalation, BIDRT carvedilol 12.5 mg tablet 37.5 mg 3 tab(s), Nasogastric, BIDM cefTRIAXone IVP syringe 2 gram(s) 20 mL, IV Push (INT), qDay chlorhexidine topical 0.12% Liquid (60 mL) 15 mL, Swish & Spit, QID famotidine 20 mg tablet 20 mg 1 tab(s), Nasogastric, qDay heparin 5,000 units/mL (1 mL) vial 5,000 unit(s) 1 mL, Subcutaneous, q8h insulin isophane human recombinant 100 units/ml (10 mL) Inj 18 unit(s) 0.18 mL, Subcutaneous, q8h ocular lubricant - Ointment 3.5 gram(s) 1 mendy, Eyes, both, q8h ocular lubricant preserved Soln 15 mL 1 drop(s), Eyes, both, q8h Continuous: (1) insulin regular 100 unit(s) + NS Premix Diluent 100 mL 100 mL, Intravenous PRN: (9) acetaminophen-HYDROcodone 325-5 mg tablet 1 tab(s), Oral, q4h acetaminophen-HYDROcodone 325-5 mg tablet 2 tab(s), Oral, q6h dextrose 50% Solution Disp syringe 50 mL 25 g 50 mL, IV Push, AsDirected fentaNYL 50 mcg/mL (2mL) ampule 50 mcg 1 mL, IV Push, q15min fentaNYL 50 mcg/mL (2mL) ampule 25 mcg 0.5 mL, IV Push, q15min hydralazine 20 mg/mL (1mL) vial 10 mg 0.5 mL, IV Push, q4h insulin regular human recombinant 100 units/ml (10 mL) Solution sliding scale insulin, Subcutaneous, q4h ocular lubricant - Ointment 3.5 gram(s) 1 mendy, Eyes, both, AsDirected ocular lubricant preserved Soln 15 mL 1 drop(s), Eyes, both, AsDirected Lab Results 02/06 03:26 WBC: 10.3 Hgb: 9.8 L Hct: 28.6 L Platelet: 515 H Neutrophil %: 81.3 H Glucose Level: 178 H Sodium Level: 148 H Potassium Level: 4.0 BUN: 85.0 H Creatinine Lvl (s): 1.74 H 02/05 04:40 WBC: 10.0 Hgb: 10.6 L Hct: 30.9 L Platelet: 540 H Neutrophil %: 84.2 H Glucose Level: 183 H Sodium Level: 149 H Potassium Level: 4.2 BUN: 78.0 H Creatinine Lvl (s): 1.56 H EKG No qualifying data available. Assessment/Plan 73-year-old male who underwent a robotic assisted umbilical hernia repair and subsequently developed abdominal sepsis and respiratory failure secondary to bilious leakage. Patient has had multiple trips to the operating room. Most recently, the patient is postoperative day #3 following a percutaneous tracheostomy due to failed attempts of weaning from mechanical ventilation. Patient continues to do well with the tracheostomy and will be placed on trach shield today. Patient is okay for physicaland Occupational Therapy. Patient was okayed for transfer to LTAC today. 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 Plan of care is discussed in detail with the patient and her daughter. All questions and concerns of addressed answered. Case discussed with Dr. Bowman. Addendum to follow. Digitally Signed by ALIDA MANRIQUEZ on 02/07/2024 09:45 AM [facility] [id number] Nephrology Progress note Date of Service 02 07 24 Subjective no new events Objective Vitals and Measurements T: 37.0 C (Oral) TMIN: 37.0 C (Oral) TMAX: 37.5 C (Oral) HR: 75 (Monitored) RR: 27 BP: 163/49 SpO2:96% Intake and Output 7AM Yesterday to 7AM Today Intake and Output (Last 24 hours) Intake Free Water: 1200.00 Tube Feeding Intake 1088.00 Oral Intake 0.00 Output Wound Vac 1 300.00 Urinary Catheter Output: 1600.00 Stool Count 5.00 Total Summary Total Intake 2288.00 Total Output 1900.00 Fluid Balance 388.00 Physical Exam Weight Dosing Weight: 127.1 kg (01/23/24) Dosing Weight: 127.1 kg (01/21/24) Gen: Trached on trach mask Lungs: Equal breath sounds bilaterally, chest tube CVS: Regular rate and rhythm, no murmur, no rubs Abd: Round sounds. Surgical wound noted. Wound VAC Neuro: Awake, intubated Ext: Trace edema Delacruz catheter Medications Medications (21) Active Scheduled: (11) albuterol - ipratropium 2.5 mg-0.5 mg/3 mL Inhal Cheryl UD 3 mL, Inhalation, q6hRT amLODIPine 10 mg tablet 10 mg 1 tab(s), Nasogastric, qDay budesonide 0.5 mg/2 mL Susp UD 0.5 mg 2 mL, Inhalation, BIDRT carvedilol 12.5 mg tablet 37.5 mg 3 tab(s), Nasogastric, BIDM cefTRIAXone IVP syringe 2 gram(s) 20 mL, IV Push (INT), qDay chlorhexidine topical 0.12% Liquid (60 mL) 15 mL, Swish & Spit, QID famotidine 20 mg tablet 20 mg 1 tab(s), Nasogastric, qDay heparin 5,000 units/mL (1 mL) vial 5,000 unit(s) 1 mL, Subcutaneous, q8h insulin isophane human recombinant 100 units/ml (10 mL) Inj 18 unit(s) 0.18 mL, Subcutaneous, q8h ocular lubricant - Ointment 3.5 gram(s) 1 mendy, Eyes, both, q8h ocular lubricant preserved Soln 15 mL 1 drop(s), Eyes, both, q8h Continuous: (1) insulin regular 100 unit(s) + NS Premix Diluent 100 mL 100 mL, Intravenous PRN: (9) acetaminophen-HYDROcodone 325-5 mg tablet 1 tab(s), Oral, q4h acetaminophen-HYDROcodone 325-5 mg tablet 2 tab(s), Oral, q6h dextrose 50% Solution Disp syringe 50 mL 25 g 50 mL, IV Push, AsDirected fentaNYL 50 mcg/mL (2mL) ampule 50 mcg 1 mL, IV Push, q15min fentaNYL 50 mcg/mL (2mL) ampule 25 mcg 0.5 mL, IV Push, q15min hydralazine 20 mg/mL (1mL) vial 10 mg 0.5 mL, IV Push, q4h insulin regular human recombinant 100 units/ml (10 mL) Solution sliding scale insulin, Subcutaneous, q4h ocular lubricant - Ointment 3.5 gram(s) 1 mendy, Eyes, both, AsDirected ocular lubricant preserved Soln 15 mL 1 drop(s), Eyes, both, AsDirected Lab Results 02/06 03:26 WBC: 10.3 Hgb: 9.8 L Hct: 28.6 L Platelet: 515 H Neutrophil %: 81.3 H Glucose Level: 178 H Sodium Level: 148 H Potassium Level: 4.0 BUN: 85.0 H Creatinine Lvl (s): 1.74 H 02/05 04:40 WBC: 10.0 Hgb: 10.6 L Hct: 30.9 L Platelet: 540 H Neutrophil %: 84.2 H Glucose Level: 183 H Sodium Level: 149 H Potassium Level: 4.2 BUN: 78.0 H Creatinine Lvl (s): 1.56 H EKG No qualifying data available. Assessment/Plan 1. Acute kidney injury likely reflective of prerenal state. 2. Respiratory failure on mechanical ventilation 3. Hypernatremia secondary to osmotic diuresis 4. Pneumoperitoneum s/p exp lap with abdominal washout and extraction of mesh 5. hypokalemia Sodium slightly improved today Renal function slightly worse Continue with current free water Blood pressure noted Discussed with patient and family We should avoid nephrotoxins including NSAIDs, RAAS agents, aminoglycosides, and contrast unless emergently needed. We should keep MAP greater than 65 and avoid hemodynamic changes if possible. This document was transcribed via voice recognition software and may contain typographical errors. Digitally Signed by RADHA MIN DO on 02/07/2024 11:17 AM [facility] [id number] Note Date of Service 02/07/2024 Bella Correa is a 73-year-old male with a past medical history of hypertension, diabetes mellitus,ALICIA on BiPAP, morbid obesity, dyslipidemia, hypothyroidism, former smoker (quit 15 years ago), daily alcohol use (2 shots of bourbon a day) who was transferred [facility]. Heunderwent robotic assisted umbilical hernia repair on 01/20/[address] Bowman. Postop, he had persistent abdominal pain and hypoxia requiring oxygen so he was admitted to the hospital overnight. After surgery, oxygen requirements increased, he developed a whole-body rash, decreased urine output and increasing abdominal distention. He was found to have an AJ after receiving Farxiga, ibuprofen and Lasix. CT abdomen pelvis showed possible perforation with free air and free fluid. NG tube wasplaced and he was transferred to [place] [facility] on 01/20. He was intubated upon arrival for significant tachypnea, increased work of breathing and hypoxia. Post intubation he became hypotensive with a lactic acid of 5.0 and was given 2 L LR and norepinephrine initiated. 01/20 He is now status post robotic assisted diagnostic laparoscopy, exploratory laparotomy, abdominal washout, extraction of abdominal wall mesh, debridement of abdominal wall and placement of open abdominal wound VAC per Dr. Bowman and Dr. Schultz. He was found to have diffuse widespread bile peritonitis with modest amount of bile-stained fluid in all quadrants of the abdomen, no feculent peritonitis and no site of perforation or leakage. He was brought to the SICU postprocedure on mechanicalventilation. He became progressively more hypotensive requiring 2 pressors. Central line and arterial line placed. He developed an AJ, lactic acidosis and A-fib with rapid ventricular rate. He was given a dose of digoxin, 300 mg bolus of amiodarone and started on a amiodarone drip. 01/22 He underwent a second laparotomy, removal of wound VAC, debridement and closure of abdominal wall by Dr. Bowman. He was found to have no sign of bile leakage. The abdominal wound around the area of the umbilicus was discolored, soupy and somewhat necrotic, the fascia was able to be closed intraoperatively. Post-operatively he developed significant thrombocytopenia with platelets in the 60s, likely sepsis induced. 01/23 pressor requirements increased, he was noted to have bile leak from one of his laparoscopic sites along with abdominal distention and hypoxia. He is now status post EGD, exploratory laparotomy,cholecystectomy, and wound VAC placement per Dr. Lovelace and Dr. Bowman. There was no perforationidentified, a wound vac was applied along with 3 MADDY drains in his right abdomen and 2 MADDY drains in h is left abdomen. A right sided chest tube was also inserted for a pneumothorax and moderate/large pleural effusion which had a output of 800 mL upon placement. 01/25 Tmax 39.2, was pancultured with 1 blood culture from 01/24 positive GPC's JD pending. He hadincreased oxygen requirements requiring 90% FiO2 and 8 of PEEP. Converted from atrial fibrillation to normal sinus rhythm however QTc on EKG greater than 500 so amiodarone drip discontinued. 01/27, status post removal of wound VAC, abdominal exploration, closure of abdominal wall, MADDY drainx 5 remain intact. Intraoperative found healthy viable bowel with minimal fluid, did not appear bilious and had no sign of pus or GI leakage. Found small amount of remaining subcutaneous fat heavily bile-stained from initial operation, appeared less viable and was sharply debrided off. Midline fascia closed relatively easily. 02/01 acute DVT involving left gastrocnemius vein 02/02-Extubated after CPAP trial and placed on high flow nasal cannula. Continue to have excessive secretions requiring frequent suctioning. Then continued to have ongoing and persistent hypoxia and decision was made to reintubate. Tracheostomy placed 02/03 24 Hour Summary: Febrile yesterday, pancultured and C. difficile rechecked, day 7 of Rocephin. Hypertensive with blood pressure in the 140s to 171, with heart rate sinus rhythm in the 70s and 80s. Scheduled dose of Norvasc 10 mg continued and Lopressor discontinued and Coreg 25 mg twice daily ordered. Hydralazine as needed x 1 dose/24 hours. Remains trached to the ventilator assist-control 24, tidal volume 500, FiO2 30% PEEP of 5. CPAP trial 10 hours yesterday. Remains on Nepro tube feeds at 50 cc an hour. ttempted to decrease free water, unfortunately sodium level yesterday elevated to 149, free water increased to 400 cc every 6 hours, sodium level this a.m. 148. Blood sugars slightly improved overnight after increasing NPH to 18 units subcutaneous every 8 hours and intermittent sliding scale insulin. Nephrology following. Objective Vitals and Measurements T: 37 C (Oral) TMIN: 37 C (Oral) TMAX: 37.7 C (Oral) HR: 80 (Monitored) RR: 29 BP: 157/56 SpO2: 96% Intake and Output 7AM Yesterday to 7AM Today Intake and Output (Last 24 hours) Intake Free Water: 1200.00 Tube Feeding Intake 694.00 Oral Intake 0.00 Output Wound Vac 1 200.00 Urinary Catheter Output: 1300.00 Stool Count 4.00 Total Summary Total Intake 1894.00 Total Output 1500.00 Fluid Balance 394.00 Physical Exam General: Follows simple commands, generalized weakness Head: Normocephalic, atraumatic ENT: PERRLA, eyes: 3+, brisk, oral: Mucous membranes dry, tracheostomy in place, NG with continuoustube feed Neck: Supple, no JVD Cardiac: Regular rate and rhythm, normal S1-S2 without murmurs rubs or gallops Respiratory: Lungs coarse bilaterally, respirations easy with ventilator, rate 24, TV 500, Fio 40% and PEEP of 5 Abdomen: Obese, round, distended, semifirm, multiple laparoscopic sites noted with damaris intact, large mid abdominal wound VAC in place, Delacruz draining clear yellow urine, TF at 50cc hr. Musculoskeletal: No joint deformities Extremities: 1+ pulses, 2+ generalized edema Neurological: alert, follows simple commands, generalized weakness. Skin: Warm, dry, intact Weight Dosing Weight: 127.1 kg (01/23/24) Medications Medications (21) Active Scheduled: (11) albuterol - ipratropium 2.5 mg-0.5 mg/3 mL Inhal Cheryl UD 3 mL, Inhalation, q6hRT amLODIPine 10 mg tablet 10 mg 1 tab(s), Nasogastric, qDay budesonide 0.5 mg/2 mL Susp UD 0.5 mg 2 mL, Inhalation, BIDRT carvedilol 25 mg tablet 25 mg 1 tab(s), Oral, BIDM cefTRIAXone IVP syringe 2 gram(s) 20 mL, IV Push (INT), qDay chlorhexidine topical 0.12% Liquid (60 mL) 15 mL, Swish & Spit, QID famotidine 20 mg tablet 20 mg 1 tab(s), Nasogastric, qDay heparin 5,000 units/mL (1 mL) vial 5,000 unit(s) 1 mL, Subcutaneous, q8h insulin isophane human recombinant 100 units/ml (10 mL) Inj 18 unit(s) 0.18 mL, Subcutaneous, q8h ocular lubricant - Ointment 3.5 gram(s) 1 mendy, Eyes, both, q8h ocular lubricant preserved Soln 15 mL 1 drop(s), Eyes, both, q8h Continuous: (1) insulin regular 100 unit(s) + NS Premix Diluent 100 mL 100 mL, Intravenous PRN: (9) acetaminophen-HYDROcodone 325-5 mg tablet 1 tab(s), Oral, q4h acetaminophen-HYDROcodone 325-5 mg tablet 2 tab(s), Oral, q6h dextrose 50% Solution Disp syringe 50 mL 25 g 50 mL, IV Push, AsDirected fentaNYL 50 mcg/mL (2mL) ampule 50 mcg 1 mL, IV Push, q15min fentaNYL 50 mcg/mL (2mL) ampule 25 mcg 0.5 mL, IV Push, q15min hydralazine 20 mg/mL (1mL) vial 10 mg 0.5 mL, IV Push, q4h insulin regular human recombinant 100 units/ml (10 mL) Solution sliding scale insulin, Subcutaneous, q4h ocular lubricant - Ointment 3.5 gram(s) 1 mendy, Eyes, both, AsDirected ocular lubricant preserved Soln 15 mL 1 drop(s), Eyes, both, AsDirected Lab Results Event Name Event Result Date/Time WBC 10.3 10^3/mcL 02/07/24 03:26:00 Hgb 9.8 G/dL Low 02/07/24 03:26:00 Hct 28.6 % Low 02/07/24 03:26:00 Platelet 515 10^3/mcL High 02/07/24 03:26:00 Glucose Level 178 mg/dL High 02/07/24 03:26:00 Sodium Level 148 mEq/L High 02/07/24 03:26:00 Potassium Level 4 mEq/L 02/07/24 03:26:00 Chloride 114 mEq/L High 02/07/24 03:26:00 CO2 23 mEq/L 02/07/24 03:26:00 BUN 85 mg/dL High 02/07/24 03:26:00 Creatinine Lvl (s) 1.74 mg/dL High 02/07/24 03:26:00 Calcium Ionized 0.95 mmol/L Low 02/07/24 03:26:00 EKG No qualifying data available. Assessment/Plan 1. Acute respiratory failure requiring intubation 01/21/2024 with continued mechanical ventilation 2. Status post removal of wound VAC, abdominal exploration, closure of abdominal wall 01/27 3. Pneumoperitoneum with bile leak status post robotic assisted diagnostic laparoscopic, exploratory lap, abdominal washout, extraction of abdominal wall with mesh, debridement of abdominal wall and placement of open abdominal wound VAC (01/21/2024), second look laparotomy, removal of wound VAC, debridement and closure of abdominal wall (01/23/2024) and exploratory lap, cholecystectomy, wound VACplacement, right side chest tube placement (01/24/2024) 4. Umbilical hernia status post robotic assisted umbilical hernia preperitoneal repair with mesh (01/20/2024) 5. Acute kidney injury, improving 6. Septic shock resolved 7. Atrial fibrillation RVR resolved, remains in sinus rhythm 8. DVT involving left gastrocnemius vein 9. Poor nutritional status 10. Hypernatremia-improving 11. History of hypertension, diabetes mellitus, ALICIA on BiPAP, dyslipidemia, hypothyroidism, morbid obesity, daily alcohol use, and former smoker 12. GI prophylaxis 13. DVT prophylaxis 14. CODE STATUS Plan: 1. Continue mechanical ventilation with current settings, VAP/SBT protocols in place. 2. Continue intermittent Trinity and fentanyl for pain control. 3. Continue amlodipine 10 mg ng daily and Coreg 25 mg NG twice daily 3. Continue Nepro 50 mL/h for nutritional support 4. Free water 400 mL every 6 hours for hypernatremia 4. Continue NPH 18 units subcutaneously every 8 hours with intermittent sliding scale for glucose control 5. Ceftriaxone 2 g daily, today is day 7 of a 7-day course. Max temp overnight 37.7. Pancultured yesterday. Blood and sputum culture no growth to date. 6. Nephrology following for AJ, has not required hemodialysis, continue to monitor creatinine 7. Pepcid 20 mg IV daily for GI prophylaxis 8. SCDs for DVT prophylaxis, chemical prophylaxis when appropriate 9. PT/OT following 10. Social work following for LTAC placement for rehabilitation 11. CBC and BMP in a.m. 12. Full code Assessment and plan of care to be discussed with [employer], see addendum to follow Critical Care time 40 minutes Used voice recognition software for this dictation, please be aware for typos and grammatical errors Digitally Signed by SHERON POLLARD on 02/07/2024 08:06 AM [id number] Progress note Date of Service 02/06/2024 Chief Complaint Postoperative, postsurgical Subjective Patient resting supine in the SICU Continues to complain of mild abdominal pain surrounding incision Objective Vitals and Measurements T: 37.7 C (Oral) TMIN: 36.9 C (Oral) TMAX: 38.8 C (Oral) HR: 99 (Apical) RR: 33 (Total) BP: 161/65SpO2: 93% Intake and Output 7AM Yesterday to 7AM Today Intake and Output (Last 24 hours) Intake Free Water: 400.00 Enteral Tube Flush: 160.00 Tube Feeding Intake 993.00 Enteral Tube Intake: 346.00 Oral Intake 0.00 Output Urinary Catheter Output: 3025.00 Stool Count 6.00 Total Summary Total Intake 1899.00 Total Output 3025.00 Fluid Balance -1126.00 Physical Exam General: Awake and alert and in no apparent distress, nods head in response to questions. HEENT: Mucous membranes moist and pink. Sclerae anicteric. PERRLA. NG tube present. Trach mask intact. Heart: Regular rate and rhythm. S1-S2 are present. Lungs: Chest rise symmetrical. Respirations unlabored. Clear to auscultation bilaterally. Abdomen: Soft, rounded, midline wound VAC intact to open incision. Retention sutures intact. Bowel sounds present. Extremities: Freely moving. Skin: Normal color for ethnicity. No pallor or diaphoresis. No jaundice. : Delacruz catheter intact. Psychiatric: Calm and cooperative. Weight Dosing Weight: 127.1 kg (01/23/24) Dosing Weight: 127.1 kg (01/21/24) Medications Medications (21) Active Scheduled: (10) albuterol - ipratropium 2.5 mg-0.5 mg/3 mL Inhal Cheryl UD 3 mL, Inhalation, q6hRT amLODIPine 10 mg tablet 10 mg 1 tab(s), Nasogastric, qDay budesonide 0.5 mg/2 mL Susp UD 0.5 mg 2 mL, Inhalation, BIDRT cefTRIAXone IVP syringe 2 gram(s) 20 mL, IV Push (INT), qDay chlorhexidine topical 0.12% Liquid (60 mL) 15 mL, Swish & Spit, QID famotidine 20 mg tablet 20 mg 1 tab(s), Nasogastric, qDay insulin isophane human recombinant 100 units/ml (10 mL) Inj 15 unit(s) 0.15 mL, Subcutaneous, q8h metoprolol tartrate 25 mg tablet 25 mg 1 tab(s), Nasogastric, q8h ocular lubricant - Ointment 3.5 gram(s) 1 mendy, Eyes, both, q8h ocular lubricant preserved Soln 15 mL 1 drop(s), Eyes, both, q8h Continuous: (2) insulin regular 100 unit(s) + NS Premix Diluent 100 mL 100 mL, Intravenous norepinephrine 8 mg [5 mcg/min] + NS Premix Diluent 250 mL 250 mL, Intravenous, 9.38 mL/hr PRN: (9) acetaminophen-HYDROcodone 325-5 mg tablet 1 tab(s), Oral, q4h acetaminophen-HYDROcodone 325-5 mg tablet 2 tab(s), Oral, q6h dextrose 50% Solution Disp syringe 50 mL 25 g 50 mL, IV Push, AsDirected fentaNYL 50 mcg/mL (2mL) ampule 50 mcg 1 mL, IV Push, q15min fentaNYL 50 mcg/mL (2mL) ampule 25 mcg 0.5 mL, IV Push, q15min hydralazine 20 mg/mL (1mL) vial 10 mg 0.5 mL, IV Push, q4h insulin regular human recombinant 100 units/ml (10 mL) Solution sliding scale insulin, Subcutaneous, q4h ocular lubricant - Ointment 3.5 gram(s) 1 mendy, Eyes, both, AsDirected ocular lubricant preserved Soln 15 mL 1 drop(s), Eyes, both, AsDirected Lab Results 02/05 04:40 WBC: 10.0 Hgb: 10.6 L Hct: 30.9 L Platelet: 540 H Neutrophil %: 84.2 H Glucose Level: 183 H Sodium Level: 149 H Potassium Level: 4.2 BUN: 78.0 H Creatinine Lvl (s): 1.56 H 02/04 05:07 WBC: 8.1 Hgb: 9.6 L Hct: 28.4 L Platelet: 421 Neutrophil %: 85.6 H Glucose Level: 235 H Sodium Level: 145 Potassium Level: 4.2 BUN: 76.0 H Creatinine Lvl (s): 1.71 H Imaging Results and Diagnostics XR Chest 1 View Result Date: February 06, 2024 Verified By: ENRIQUE LUIS, JOSE LUIS Albert CLINICAL STATEMENT: IMPRESSION: Small bilateral pleural effusions with adjacent airspace disease. I have personally reviewed the images of this examination, and agree with the resident's findings and interpretation. Assessment/Plan 73-year-old male who initially underwent a robotically assisted umbilical hernia repair. Postoperatively developed abdominal sepsis and respiratory failure due to leak from bilious or GI tract that was never identified. Patient has undergone 4 laparotomies for abdominal washout and placement of ABThera wound VAC. Patient is postoperative day #2 following percutaneous tracheostomy due to failed attempts of weaning him from the ventilator. Vitals, labs, I's/O reviewed. Patient did spike temp of 38.8 at 5 AM, heart rate 90-1 100s, BP 161/65, O2 sats 93% on 30% FiO2 toper trach mask WBC 10.0, Hgb 10.6, HCT 30.9, glucose 183, sodium 149, potassium 4.2, BUN 78, creatinine 1.56 Chest x-ray this morning with radiology impression showing small bilateral effusions with adjacent airspace disease. Urine output 3025 cc / 24 hours Upon examination this morning, was reported that patient did spike a temp early this morning of 38.8. Patient has been pancultured, Delacruz catheter was switched. UA sent for urinalysis. Chest x-ray was ordered with results as noted above. Patient continues to have no evidence of leukocytosis, hemoglobin stable at 10.6. Abdominal wound VAC was changed yesterday. Erythema to abdominal wall seems slightly improved today. Patient is currently on antibiotics for Klebsiella in the sputum. continues to tolerate tube feeds, is also having frequent loose BMs. Plan: -Agree with chest x-ray, UA due to temp spike, Delacruz catheter was switched. -Will also recheck C. difficile. -Continue tube feeds -A.m. labs -Continue IV antibiotics -Continue PT/OT -Critical care management per newspaper distributor supervisor, appreciate their input Case discussed with Dr. Bowman, please see addendum to follow. Digitally Signed by ARIANA HERNANDEZ on 02/06/2024 08:37 AM [facility] [id number] Nephrology Progress note Subjective Seen and examined. He is awake trached on mechanical ventilation. Chart was reviewed. Objective Vitals and Measurements T: 37.2 C (Oral) TMIN: 36.9 C (Oral) TMAX: 38.8 C (Oral) HR: 84 (Monitored) RR: 32 BP: 153/63 SpO2:92% Intake and Output 7AM Yesterday to 7AM Today Intake and Output (Last 24 hours) Intake Free Water: 400.00 Enteral Tube Flush: 160.00 Tube Feeding Intake 993.00 Enteral Tube Intake: 346.00 Oral Intake 0.00 Output Urinary Catheter Output: 3025.00 Stool Count 6.00 Total Summary Total Intake 1899.00 Total Output 3025.00 Fluid Balance -1126.00 Physical Exam Gen: Trached on mechanical ventilation Lungs: Equal breath sounds bilaterally, chest tube CVS: Regular rate and rhythm, no murmur, no rubs, tachycardia Abd: Round sounds. Surgical wound noted. Wound VAC Neuro: Awake, intubated Ext: Trace edema Delacruz catheter [1] Weight Dosing Weight: 127.1 kg (01/23/24) Dosing Weight: 127.1 kg (01/21/24) Medications Medications (21) Active Scheduled: (11) albuterol - ipratropium 2.5 mg-0.5 mg/3 mL Inhal Cheryl UD 3 mL, Inhalation, q6hRT amLODIPine 10 mg tablet 10 mg 1 tab(s), Nasogastric, qDay budesonide 0.5 mg/2 mL Susp UD 0.5 mg 2 mL, Inhalation, BIDRT carvedilol 25 mg tablet 25 mg 1 tab(s), Oral, BIDM cefTRIAXone IVP syringe 2 gram(s) 20 mL, IV Push (INT), qDay chlorhexidine topical 0.12% Liquid (60 mL) 15 mL, Swish & Spit, QID famotidine 20 mg tablet 20 mg 1 tab(s), Nasogastric, qDay heparin 5,000 units/mL (1 mL) vial 5,000 unit(s) 1 mL, Subcutaneous, q8h insulin isophane human recombinant 100 units/ml (10 mL) Inj 18 unit(s) 0.18 mL, Subcutaneous, q8h ocular lubricant - Ointment 3.5 gram(s) 1 mendy, Eyes, both, q8h ocular lubricant preserved Soln 15 mL 1 drop(s), Eyes, both, q8h Continuous: (1) insulin regular 100 unit(s) + NS Premix Diluent 100 mL 100 mL, Intravenous PRN: (9) acetaminophen-HYDROcodone 325-5 mg tablet 1 tab(s), Oral, q4h acetaminophen-HYDROcodone 325-5 mg tablet 2 tab(s), Oral, q6h dextrose 50% Solution Disp syringe 50 mL 25 g 50 mL, IV Push, AsDirected fentaNYL 50 mcg/mL (2mL) ampule 50 mcg 1 mL, IV Push, q15min fentaNYL 50 mcg/mL (2mL) ampule 25 mcg 0.5 mL, IV Push, q15min hydralazine 20 mg/mL (1mL) vial 10 mg 0.5 mL, IV Push, q4h insulin regular human recombinant 100 units/ml (10 mL) Solution sliding scale insulin, Subcutaneous, q4h ocular lubricant - Ointment 3.5 gram(s) 1 mendy, Eyes, both, AsDirected ocular lubricant preserved Soln 15 mL 1 drop(s), Eyes, both, AsDirected Lab Results 02/05 04:40 WBC: 10.0 Hgb: 10.6 L Hct: 30.9 L Platelet: 540 H Neutrophil %: 84.2 H Glucose Level: 183 H Sodium Level: 149 H Potassium Level: 4.2 BUN: 78.0 H Creatinine Lvl (s): 1.56 H 02/04 05:07 WBC: 8.1 Hgb: 9.6 L Hct: 28.4 L Platelet: 421 Neutrophil %: 85.6 H Glucose Level: 235 H Sodium Level: 145 Potassium Level: 4.2 BUN: 76.0 H Creatinine Lvl (s): 1.71 H EKG No qualifying data available. Assessment/Plan 1. Acute kidney injury likely reflective of prerenal state. 2. Respiratory failure on mechanical ventilation 3. Hypernatremia secondary to osmotic diuresis 4. Pneumoperitoneum s/p exp lap with abdominal washout and extraction of mesh 5. hypokalemia Sodium slightly worse today. Will increase free water replacement down the NG. Others continue to follow labs. Replace electrolytes as needed. Blood pressure stable maintain current antihypertensive medications. See orders [1] Progress Note; JUAN JIMENES MD 02/05/2024 08:49 EST Digitally Signed by JUAN JIMENES MD on 02/06/2024 10:30 AM [facility] [id number] Note Date of Service 02/06/2024 Bella Correa is a 73-year-old male with a past medical history of hypertension, diabetes mellitus,ALICIA on BiPAP, morbid obesity, dyslipidemia, hypothyroidism, former smoker (quit 15 years ago), daily alcohol use (2 shots of bourbon a day) who was transferred [facility] from [facility]. Heunderwent robotic assisted umbilical hernia repair on 01/20/[address] Bowman. Postop, he had persistent abdominal pain and hypoxia requiring oxygen so he was admitted to the hospital overnight. After surgery, oxygen requirements increased, he developed a whole-body rash, decreased urine output and increasing abdominal distention. He was found to have an AJ after receiving Farxiga, ibuprofen and Lasix. CT abdomen pelvis showed possible perforation with free air and free fluid. NG tube wasplaced and he was transferred to [place] S[facility] on 01/20. He was intubated upon arrival for significant tachypnea, increased work of breathing and hypoxia. Post intubation he became hypotensive with a lactic acid of 5.0 and was given 2 L LR and norepinephrine initiated. 01/20 He is now status post robotic assisted diagnostic laparoscopy, exploratory laparotomy, abdominal washout, extraction of abdominal wall mesh, debridement of abdominal wall and placement of open abdominal wound VAC per Dr. Bowman and Dr. Schultz. He was found to have diffuse widespread bile peritonitis with modest amount of bile-stained fluid in all quadrants of the abdomen, no feculent peritonitis and no site of perforation or leakage. He was brought to the SICU postprocedure on mechanicalventilation. He became progressively more hypotensive requiring 2 pressors. Central line and arterial line placed. He developed an AJ, lactic acidosis and A-fib with rapid ventricular rate. He was given a dose of digoxin, 300 mg bolus of amiodarone and started on a amiodarone drip. 01/22 He underwent a second laparotomy, removal of wound VAC, debridement and closure of abdominal wall by Dr. Bowman. He was found to have no sign of bile leakage. The abdominal wound around the area of the umbilicus was discolored, soupy and somewhat necrotic, the fascia was able to be closed intraoperatively. Post-operatively he developed significant thrombocytopenia with platelets in the 60s, likely sepsis induced. 01/23 pressor requirements increased, he was noted to have bile leak from one of his laparoscopic sites along with abdominal distention and hypoxia. He is now status post EGD, exploratory laparotomy,cholecystectomy, and wound VAC placement per Dr. Lovelace and Dr. Bowman. There was no perforationidentified, a wound vac was applied along with 3 MADDY drains in his right abdomen and 2 MADDY drains in h is left abdomen. A right sided chest tube was also inserted for a pneumothorax and moderate/large pleural effusion which had a output of 800 mL upon placement. 01/25 Tmax 39.2, was pancultured with 1 blood culture from 01/24 positive GPC's JD pending. He hadincreased oxygen requirements requiring 90% FiO2 and 8 of PEEP. Converted from atrial fibrillation to normal sinus rhythm however QTc on EKG greater than 500 so amiodarone drip discontinued. 01/27, status post removal of wound VAC, abdominal exploration, closure of abdominal wall, MADDY drainx 5 remain intact. Intraoperative found healthy viable bowel with minimal fluid, did not appear bilious and had no sign of pus or GI leakage. Found small amount of remaining subcutaneous fat heavily bile-stained from initial operation, appeared less viable and was sharply debrided off. Midline fascia closed relatively easily. 02/01 acute DVT involving left gastrocnemius vein 02/02-Extubated after CPAP trial and placed on high flow nasal cannula. Continue to have excessive secretions requiring frequent suctioning. Then continued to have ongoing and persistent hypoxia and decision was made to reintubate. Tracheostomy placed 02/03 24 Hour Summary: Febrile overnight with a maximum temperature of 38.8, pancultured, day 6 of Rocephin. Hypertensive with blood pressure in the 150s to 160s. Scheduled dose of Norvasc 10 mg along with meta Toprol tartrate 25 mg p.o. twice daily, hydralazine x 1 dose as needed overnight. Remains trached to the ventilator assist-control 24, tidal volume 500, FiO2 30% PEEP of 5. CPAP trial 3.5 hours yesterday. Remains on Nepro tube feeds at 50 cc an hour, free water decreased to 200 cc every 6 hours yesterday for hypernatremia. Blood sugars 174 to 210 with NPH 15 units subcutaneous every 8 hours and intermittent sliding scale insulin. Nephrology following. Objective Vitals and Measurements T: 38.8 C (Oral) TMIN: 36.9 C (Oral) TMAX: 38.8 C (Oral) HR: 94 (Monitored) RR: 34 BP: 144/53 SpO2:93% Intake and Output 7AM Yesterday to 7AM Today Intake and Output (Last 24 hours) Intake Free Water: 900.00 Enteral Tube Flush: 200.00 Tube Feeding Intake 993.00 Enteral Tube Intake: 346.00 Oral Intake 0.00 Output Urinary Catheter Output: 2725.00 Stool Count 6.00 Total Summary Total Intake 2439.00 Total Output 2725.00 Fluid Balance -286.00 Physical Exam General: Follows simple commands, generalized weakness Head: Normocephalic, atraumatic ENT: PERRLA, eyes: 3+, brisk, oral: Mucous membranes dry, tracheostomy in place, NG with continuoustube feed Neck: Supple, no JVD Cardiac: Regular rate and rhythm, normal S1-S2 without murmurs rubs or gallops Respiratory: Lungs coarse bilaterally, respirations easy with ventilator Abdomen: Obese, round, distended, semifirm, multiple laparoscopic sites noted with damaris intact, large mid abdominal wound VAC in place, Delacruz draining clear yellow urine Musculoskeletal: No joint deformities Extremities: 1+ pulses, 2+ generalized edema Neurological: alert, follows simple commands, generalized weakness. Skin: Warm, dry, intact [1] Weight Dosing Weight: 127.1 kg (01/23/24) Medications Medications (21) Active Scheduled: (10) albuterol - ipratropium 2.5 mg-0.5 mg/3 mL Inhal Cheryl UD 3 mL, Inhalation, q6hRT amLODIPine 10 mg tablet 10 mg 1 tab(s), Nasogastric, qDay budesonide 0.5 mg/2 mL Susp UD 0.5 mg 2 mL, Inhalation, BIDRT cefTRIAXone IVP syringe 2 gram(s) 20 mL, IV Push (INT), qDay chlorhexidine topical 0.12% Liquid (60 mL) 15 mL, Swish & Spit, QID famotidine 20 mg tablet 20 mg 1 tab(s), Nasogastric, qDay insulin isophane human recombinant 100 units/ml (10 mL) Inj 15 unit(s) 0.15 mL, Subcutaneous, q8h metoprolol tartrate 25 mg tablet 25 mg 1 tab(s), Nasogastric, q8h ocular lubricant - Ointment 3.5 gram(s) 1 mendy, Eyes, both, q8h ocular lubricant preserved Soln 15 mL 1 drop(s), Eyes, both, q8h Continuous: (2) insulin regular 100 unit(s) + NS Premix Diluent 100 mL 100 mL, Intravenous norepinephrine 8 mg [5 mcg/min] + NS Premix Diluent 250 mL 250 mL, Intravenous, 9.38 mL/hr PRN: (9) acetaminophen-HYDROcodone 325-5 mg tablet 1 tab(s), Oral, q4h acetaminophen-HYDROcodone 325-5 mg tablet 2 tab(s), Oral, q6h dextrose 50% Solution Disp syringe 50 mL 25 g 50 mL, IV Push, AsDirected fentaNYL 50 mcg/mL (2mL) ampule 50 mcg 1 mL, IV Push, q15min fentaNYL 50 mcg/mL (2mL) ampule 25 mcg 0.5 mL, IV Push, q15min hydralazine 20 mg/mL (1mL) vial 10 mg 0.5 mL, IV Push, q4h insulin regular human recombinant 100 units/ml (10 mL) Solution sliding scale insulin, Subcutaneous, q4h ocular lubricant - Ointment 3.5 gram(s) 1 mendy, Eyes, both, AsDirected ocular lubricant preserved Soln 15 mL 1 drop(s), Eyes, both, AsDirected Lab Results 02/05 04:40 WBC: 10.0 Hgb: 10.6 L Hct: 30.9 L Platelet: 540 H Neutrophil %: 84.2 H Glucose Level: 183 H Sodium Level: 149 H Potassium Level: 4.2 BUN: 78.0 H Creatinine Lvl (s): 1.56 H 02/04 05:07 WBC: 8.1 Hgb: 9.6 L Hct: 28.4 L Platelet: 421 Neutrophil %: 85.6 H Glucose Level: 235 H Sodium Level: 145 Potassium Level: 4.2 BUN: 76.0 H Creatinine Lvl (s): 1.71 H EKG No qualifying data available. Assessment/Plan 1. Acute respiratory failure requiring intubation 01/21/2024 with continued mechanical ventilation 2. Status post removal of wound VAC, abdominal exploration, closure of abdominal wall 01/27 3. Pneumoperitoneum with bile leak status post robotic assisted diagnostic laparoscopic, exploratory lap, abdominal washout, extraction of abdominal wall with mesh, debridement of abdominal wall and placement of open abdominal wound VAC (01/21/2024), second look laparotomy, removal of wound VAC, debridement and closure of abdominal wall (01/23/2024) and exploratory lap, cholecystectomy, wound VACplacement, right side chest tube placement (01/24/2024) 4. Umbilical hernia status post robotic assisted umbilical hernia preperitoneal repair with mesh (01/20/2024) 5. Acute kidney injury, improving 6. Septic shock resolved 7. Atrial fibrillation RVR resolved, remains in sinus rhythm 8. DVT involving left gastrocnemius vein 9. Poor nutritional status 10. Hypernatremia-improving 11. History of hypertension, diabetes mellitus, ALICIA on BiPAP, dyslipidemia, hypothyroidism, morbid obesity, daily alcohol use, and former smoker 12. GI prophylaxis 13. DVT prophylaxis 14. CODE STATUS Plan: 1. Continue mechanical ventilation with current settings, VAP/SBT protocols in place. 2. Continue intermittent Trinity and fentanyl for pain control. 3. Continue amlodipine 10 mg and Lopressor 25 mg every 8 hours. Discuss with newspaper distributor supervisor regarding increasing Lopressor for slightly better blood pressure control. 3. Continue Nepro 50 mL/h for nutritional support 4. Free water 200 mL every 6 hours for hypernatremia, a.m. labs still pending 4. NPH 15 units every 8 hours, plan to discuss increasing NPH to 20 units every 8 hours for better glycemic control. 5. Continue ceftriaxone, on day 6 of a 7-day course. Febrile this a.m., blood urine and sputum cultures ordered. 6. Nephrology following for AJ, has not required hemodialysis, creatinine improving 7. Pepcid 20 mg IV daily for GI prophylaxis 8. SCDs for DVT prophylaxis, chemical prophylaxis when appropriate 9. PT/OT following 10. Social work following for LTAC placement for rehabilitation 11. CBC and BMP in a.m. 12. Full code Assessment and plan of care to be discussed with [employer], see addendum to follow Critical Care time 40 minutes Used voice recognition software for this dictation, please be aware for typos and grammatical errors [1] Progress Note; JOSE ANGEL FREGOSO 02/05/2024 06:04 EST Digitally Signed by SHERON POLLARD on 02/06/2024 08:56 AM [id number] Progress note Date of Service 02/06/2024 Chief Complaint Postoperative, postsurgical Subjective Patient resting supine in the SICU Continues to complain of mild abdominal pain surrounding incision Objective Vitals and Measurements T: 37.7 C (Oral) TMIN: 36.9 C (Oral) TMAX: 38.8 C (Oral) HR: 99 (Apical) RR: 33 (Total) BP: 161/65 SpO2: 93% Intake and Output 7AM Yesterday to 7AM Today Intake and Output (Last 24 hours) Intake Free Water: 400.00 Enteral Tube Flush: 160.00 Tube Feeding Intake 993.00 Enteral Tube Intake: 346.00 Oral Intake 0.00 Output Urinary Catheter Output: 3025.00 Stool Count 6.00 Total Summary Total Intake 1899.00 Total Output 3025.00 Fluid Balance -1126.00 Physical Exam General: Awake and alert and in no apparent distress, nods head in response to questions. HEENT: Mucous membranes moist and pink. Sclerae anicteric. PERRLA. NG tube present. Trach mask intact. Heart: Regular rate and rhythm. S1-S2 are present. Lungs: Chest rise symmetrical. Respirations unlabored. Clear to auscultation bilaterally. Abdomen: Soft, rounded, midline wound VAC intact to open incision. Retention sutures intact. Bowel sounds present. Extremities: Freely moving. Skin: Normal color for ethnicity. No pallor or diaphoresis. No jaundice. : Delacruz catheter intact. Psychiatric: Calm and cooperative. Weight Dosing Weight: 127.1 kg (01/23/24) Dosing Weight: 127.1 kg (01/21/24) Medications Medications (21) Active Scheduled: (10) albuterol - ipratropium 2.5 mg-0.5 mg/3 mL Inhal Cheryl UD 3 mL, Inhalation, q6hRT amLODIPine 10 mg tablet 10 mg 1 tab(s), Nasogastric, qDay budesonide 0.5 mg/2 mL Susp UD 0.5 mg 2 mL, Inhalation, BIDRT cefTRIAXone IVP syringe 2 gram(s) 20 mL, IV Push (INT), qDay chlorhexidine topical 0.12% Liquid (60 mL) 15 mL, Swish & Spit, QID famotidine 20 mg tablet 20 mg 1 tab(s), Nasogastric, qDay insulin isophane human recombinant 100 units/ml (10 mL) Inj 15 unit(s) 0.15 mL, Subcutaneous, q8h metoprolol tartrate 25 mg tablet 25 mg 1 tab(s), Nasogastric, q8h ocular lubricant - Ointment 3.5 gram(s) 1 mendy, Eyes, both, q8h ocular lubricant preserved Soln 15 mL 1 drop(s), Eyes, both, q8h Continuous: (2) insulin regular 100 unit(s) + NS Premix Diluent 100 mL 100 mL, Intravenous norepinephrine 8 mg [5 mcg/min] + NS Premix Diluent 250 mL 250 mL, Intravenous, 9.38 mL/hr PRN: (9) acetaminophen-HYDROcodone 325-5 mg tablet 1 tab(s), Oral, q4h acetaminophen-HYDROcodone 325-5 mg tablet 2 tab(s), Oral, q6h dextrose 50% Solution Disp syringe 50 mL 25 g 50 mL, IV Push, AsDirected fentaNYL 50 mcg/mL (2mL) ampule 50 mcg 1 mL, IV Push, q15min fentaNYL 50 mcg/mL (2mL) ampule 25 mcg 0.5 mL, IV Push, q15min hydralazine 20 mg/mL (1mL) vial 10 mg 0.5 mL, IV Push, q4h insulin regular human recombinant 100 units/ml (10 mL) Solution sliding scale insulin, Subcutaneous, q4h ocular lubricant - Ointment 3.5 gram(s) 1 mendy, Eyes, both, AsDirected ocular lubricant preserved Soln 15 mL 1 drop(s), Eyes, both, AsDirected Lab Results 02/05 04:40 WBC: 10.0 Hgb: 10.6 L Hct: 30.9 L Platelet: 540 H Neutrophil %: 84.2 H Glucose Level: 183 H Sodium Level: 149 H Potassium Level: 4.2 BUN: 78.0 H Creatinine Lvl (s): 1.56 H 02/04 05:07 WBC: 8.1 Hgb: 9.6 L Hct: 28.4 L Platelet: 421 Neutrophil %: 85.6 H Glucose Level: 235 H Sodium Level: 145 Potassium Level: 4.2 BUN: 76.0 H Creatinine Lvl (s): 1.71 H Imaging Results and Diagnostics XR Chest 1 View Result Date: February 06, 2024 Verified By: ENRIQUE LUIS, JOSE LUIS Albert CLINICAL STATEMENT: IMPRESSION: Small bilateral pleural effusions with adjacent airspace disease. I have personally reviewed the images of this examination, and agree with the resident's findings and interpretation. Assessment/Plan 73-year-old male who initially underwent a robotically assisted umbilical hernia repair. Postoperatively developed abdominal sepsis and respiratory failure due to leak from bilious or GI tract that was never identified. Patient has undergone 4 laparotomies for abdominal washout and placement of ABThera wound VAC. Patient is postoperative day #2 following percutaneous tracheostomy due to failed attempts of weaning him from the ventilator. Vitals, labs, I's/O reviewed. Patient did spike temp of 38.8 at 5 AM, heart rate 90-1 100s, BP 161/65, O2 sats 93% on 30% FiO2 toper trach mask WBC 10.0, Hgb 10.6, HCT 30.9, glucose 183, sodium 149, potassium 4.2, BUN 78, creatinine 1.56 Chest x-ray this morning with radiology impression showing small bilateral effusions with adjacent airspace disease. Urine output 3025 cc / 24 hours Upon examination this morning, was reported that patient did spike a temp early this morning of 38.8. Patient has been pancultured, Delacruz catheter was switched. UA sent for urinalysis. Chest x-ray was ordered with results as noted above. Patient continues to have no evidence of leukocytosis, hemoglobin stable at 10.6. Abdominal wound VAC was changed yesterday. Erythema to abdominal wall seems slightly improved today. Patient is currently on antibiotics for Klebsiella in the sputum. continues to tolerate tube feeds, is also having frequent loose BMs. Plan: -Agree with chest x-ray, UA due to temp spike, Delacruz catheter was switched. -Will also recheck C. difficile. -Continue tube feeds -A.m. labs -Continue IV antibiotics -Continue PT/OT -Critical care management per newspaper distributor supervisor, appreciate their input Case discussed with Dr. Bowman, please see addendum to follow. Digitally Signed by ARIANA HERNANDEZ on 02/06/2024 08:37 AM [facility] [id number] Note ORIGINAL EXAMINATION: ONE XRAY VIEW OF THE CHEST 02/06/2024 7:32 am COMPARISON: 02/04/2024 HISTORY: ORDERING SYSTEM PROVIDED HISTORY: Reason for Exam: tachypnea FINDINGS: Stable cardiomediastinal silhouette. Atherosclerotic aorta. Tracheostomy tube. Enteric tube is seen coursing beyond the inferior field of view. Small bilateral pleural effusions with adjacent airspace disease. No visible pneumothorax. Degenerative changes. IMPRESSION: Small bilateral pleural effusions with adjacent airspace disease. I have personally reviewed the images of this examination, and agree with the resident's findings and interpretation. Interpreted by: Jose Luis Delgado MD Preliminary Report By: Rosi Chau Electronically signed By Jose Luis Delgado MD Dictated Date: 02/06/2024 7:33:44 AM Prelim Date: 02/06/2024 7:35:21 AM Sign Date: 02/06/2024 7:42:27 AM [facility]ing [facility] Note Date of Service 02/06/2024 Bella Correa is a 73-year-old male with a past medical history of hypertension, diabetes mellitus,ALICIA on BiPAP, morbid obesity, dyslipidemia, hypothyroidism, former smoker (quit 15 years ago), daily alcohol use (2 shots of bourbon a day) who was transferred here from [facility]. Heunderwent robotic assisted umbilical hernia repair on 01/20/[address] Bowman. Postop, he had persistent abdominal pain and hypoxia requiring oxygen so he was admitted to the hospital overnight. After surgery, oxygen requirements increased, he developed a whole-body rash, decreased urine output and increasing abdominal distention. He was found to have an AJ after receiving Farxiga, ibuprofen and Lasix. CT abdomen pelvis showed possible perforation with free air and free fluid. NG tube wasplaced and he was transferred to [place] S[facility] on 01/20. He was intubated upon arrival for significant tachypnea, increased work of breathing and hypoxia. Post intubation he became hypotensive with a lactic acid of 5.0 and was given 2 L LR and norepinephrine initiated. 01/20 He is now status post robotic assisted diagnostic laparoscopy, exploratory laparotomy, abdominal washout, extraction of abdominal wall mesh, debridement of abdominal wall and placement of open abdominal wound VAC per Dr. Bowman and Dr. Schultz. He was found to have diffuse widespread bile peritonitis with modest amount of bile-stained fluid in all quadrants of the abdomen, no feculent perito nitis and no site of perforation or leakage. He was brought to the SICU postprocedure on mechanicalventilation. He became progressively more hypotensive requiring 2 pressors. Central line and arterial line placed. He developed an AJ, lactic acidosis and A-fib with rapid ventricular rate. He was given a dose of digoxin, 300 mg bolus of amiodarone and started on a amiodarone drip. 01/22 He underwent a second laparotomy, removal of wound VAC, debridement and closure of abdominal wall by Dr. Bowman. He was found to have no sign of bile leakage. The abdominal wound around the area of the umbilicus was discolored, soupy and somewhat necrotic, the fascia was able to be closed intraoperatively. Post-operatively he developed significant thrombocytopenia with platelets in the 60s, likely sepsis induced. 01/23 pressor requirements increased, he was noted to have bile leak from one of his laparoscopic sites along with abdominal distention and hypoxia. He is now status post EGD, exploratory laparotomy,cholecystectomy, and wound VAC placement per Dr. Lovelace and Dr. Bowman. There was no perforationidentified, a wound vac was applied along with 3 MADDY drains in his right abdomen and 2 MADDY drains in h is left abdomen. A right sided chest tube was also inserted for a pneumothorax and moderate/large pleural effusion which had a output of 800 mL upon placement. 01/25 Tmax 39.2, was pancultured with 1 blood culture from 01/24 positive GPC's JD pending. He hadincreased oxygen requirements requiring 90% FiO2 and 8 of PEEP. Converted from atrial fibrillation to normal sinus rhythm however QTc on EKG greater than 500 so amiodarone drip discontinued. 01/27, status post removal of wound VAC, abdominal exploration, closure of abdominal wall, MADDY drainx 5 remain intact. Intraoperative found healthy viable bowel with minimal fluid, did not appear bilious and had no sign of pus or GI leakage. Found small amount of remaining subcutaneous fat heavily bile-stained from initial operation, appeared less viable and was sharply debrided off. Midline fascia closed relatively easily. 02/01 acute DVT involving left gastrocnemius vein 02/02-Extubated after CPAP trial and placed on high flow nasal cannula. Continue to have excessive secretions requiring frequent suctioning. Then continued to have ongoing and persistent hypoxia and decision was made to reintubate. Tracheostomy placed 02/03 24 Hour Summary: Febrile overnight with a maximum temperature of 38.8, pancultured, day 6 of Rocephin. Hypertensive with blood pressure in the 150s to 160s. Scheduled dose of Norvasc 10 mg along with meta Toprol tartrate 25 mg p.o. twice daily, hydralazine x 1 dose as needed overnight. Remains trached to the ventilator assist-control 24, tidal volume 500, FiO2 30% PEEP of 5. CPAP trial 3.5 hours yesterday. Remains on Nepro tube feeds at 50 cc an hour, free water decreased to 200 cc every 6 hours yesterday for hypernatremia. Blood sugars 174 to 210 with NPH 15 units subcutaneous every 8 hours and intermittent sliding scale insulin. Nephrology following. Objective Vitals and Measurements T: 38.8 C (Oral) TMIN: 36.9 C (Oral) TMAX: 38.8 C (Oral) HR: 94 (Monitored) RR: 34 BP: 144/53 SpO2:93% Intake and Output 7AM Yesterday to 7AM Today Intake and Output (Last 24 hours) Intake Free Water: 900.00 Enteral Tube Flush: 200.00 Tube Feeding Intake 993.00 Enteral Tube Intake: 346.00 Oral Intake 0.00 Output Urinary Catheter Output: 2725.00 Stool Count 6.00 Total Summary Total Intake 2439.00 Total Output 2725.00 Fluid Balance -286.00 Physical Exam General: Follows simple commands, generalized weakness Head: Normocephalic, atraumatic ENT: PERRLA, eyes: 3+, brisk, oral: Mucous membranes dry, tracheostomy in place, NG with continuoustube feed Neck: Supple, no JVD Cardiac: Regular rate and rhythm, normal S1-S2 without murmurs rubs or gallops Respiratory: Lungs coarse bilaterally, respirations easy with ventilator Abdomen: Obese, round, distended, semifirm, multiple laparoscopic sites noted with damaris intact, large mid abdominal wound VAC in place, Delacruz draining clear yellow urine Musculoskeletal: No joint deformities Extremities: 1+ pulses, 2+ generalized edema Neurological: alert, follows simple commands, generalized weakness. Skin: Warm, dry, intact [1] Weight Dosing Weight: 127.1 kg (01/23/24) Medications Medications (21) Active Scheduled: (10) albuterol - ipratropium 2.5 mg-0.5 mg/3 mL Inhal Cheryl UD 3 mL, Inhalation, q6hRT amLODIPine 10 mg tablet 10 mg 1 tab(s), Nasogastric, qDay budesonide 0.5 mg/2 mL Susp UD 0.5 mg 2 mL, Inhalation, BIDRT cefTRIAXone IVP syringe 2 gram(s) 20 mL, IV Push (INT), qDay chlorhexidine topical 0.12% Liquid (60 mL) 15 mL, Swish & Spit, QID famotidine 20 mg tablet 20 mg 1 tab(s), Nasogastric, qDay insulin isophane human recombinant 100 units/ml (10 mL) Inj 15 unit(s) 0.15 mL, Subcutaneous, q8h metoprolol tartrate 25 mg tablet 25 mg 1 tab(s), Nasogastric, q8h ocular lubricant - Ointment 3.5 gram(s) 1 mendy, Eyes, both, q8h ocular lubricant preserved Soln 15 mL 1 drop(s), Eyes, both, q8h Continuous: (2) insulin regular 100 unit(s) + NS Premix Diluent 100 mL 100 mL, Intravenous norepinephrine 8 mg [5 mcg/min] + NS Premix Diluent 250 mL 250 mL, Intravenous, 9.38 mL/hr PRN: (9) acetaminophen-HYDROcodone 325-5 mg tablet 1 tab(s), Oral, q4h acetaminophen-HYDROcodone 325-5 mg tablet 2 tab(s), Oral, q6h dextrose 50% Solution Disp syringe 50 mL 25 g 50 mL, IV Push, AsDirected fentaNYL 50 mcg/mL (2mL) ampule 50 mcg 1 mL, IV Push, q15min fentaNYL 50 mcg/mL (2mL) ampule 25 mcg 0.5 mL, IV Push, q15min hydralazine 20 mg/mL (1mL) vial 10 mg 0.5 mL, IV Push, q4h insulin regular human recombinant 100 units/ml (10 mL) Solution sliding scale insulin, Subcutaneous, q4h ocular lubricant - Ointment 3.5 gram(s) 1 mendy, Eyes, both, AsDirected ocular lubricant preserved Soln 15 mL 1 drop(s), Eyes, both, AsDirected Lab Results 02/05 04:40 WBC: 10.0 Hgb: 10.6 L Hct: 30.9 L Platelet: 540 H Neutrophil %: 84.2 H Glucose Level: 183 H Sodium Level: 149 H Potassium Level: 4.2 BUN: 78.0 H Creatinine Lvl (s): 1.56 H 02/04 05:07 WBC: 8.1 Hgb: 9.6 L Hct: 28.4 L Platelet: 421 Neutrophil %: 85.6 H Glucose Level: 235 H Sodium Level: 145 Potassium Level: 4.2 BUN: 76.0 H Creatinine Lvl (s): 1.71 H EKG No qualifying data available. Assessment/Plan 1. Acute respiratory failure requiring intubation 01/21/2024 with continued mechanical ventilation 2. Status post removal of wound VAC, abdominal exploration, closure of abdominal wall 01/27 3. Pneumoperitoneum with bile leak status post robotic assisted diagnostic laparoscopic, exploratory lap, abdominal washout, extraction of abdominal wall with mesh, debridement of abdominal wall and placement of open abdominal wound VAC (01/21/2024), second look laparotomy, removal of wound VAC, debridement and closure of abdominal wall (01/23/2024) and exploratory lap, cholecystectomy, wound VACplacement, right side chest tube placement (01/24/2024) 4. Umbilical hernia status post robotic assisted umbilical hernia preperitoneal repair with mesh (01/20/2024) 5. Acute kidney injury, improving 6. Septic shock resolved 7. Atrial fibrillation RVR resolved, remains in sinus rhythm 8. DVT involving left gastrocnemius vein 9. Poor nutritional status 10. Hypernatremia-improving 11. History of hypertension, diabetes mellitus, ALICIA on BiPAP, dyslipidemia, hypothyroidism, morbid obesity, daily alcohol use, and former smoker 12. GI prophylaxis 13. DVT prophylaxis 14. CODE STATUS Plan: 1. Continue mechanical ventilation with current settings, VAP/SBT protocols in place. 2. Continue intermittent Trinity and fentanyl for pain control. 3. Continue amlodipine 10 mg and Lopressor 25 mg every 8 hours. Discuss with newspaper distributor supervisor regarding increasing Lopressor for slightly better blood pressure control. 3. Continue Nepro 50 mL/h for nutritional support 4. Free water 200 mL every 6 hours for hypernatremia, a.m. labs still pending 4. NPH 15 units every 8 hours, plan to discuss increasing NPH to 20 units every 8 hours for better glycemic control. 5. Continue ceftriaxone, on day 6 of a 7-day course. Febrile this a.m., blood urine and sputum cultures ordered. 6. Nephrology following for AJ, has not required hemodialysis, creatinine improving 7. Pepcid 20 mg IV daily for GI prophylaxis 8. SCDs for DVT prophylaxis, chemical prophylaxis when appropriate 9. PT/OT following 10. Social work following for LTAC placement for rehabilitation 11. CBC and BMP in a.m. 12. Full code Assessment and plan of care to be discussed with [employer], see addendum to follow Critical Care time 40 minutes Used voice recognition software for this dictation, please be aware for typos and grammatical errors [1] Progress Note; JOSE ANGEL FREGOSO 02/05/2024 06:04 EST Digitally Signed by SHERON POLLARD on 02/06/2024 08:56 AM [facility] [id number] Note Date of Service 02/05/2024 Bella Correa is a 73-year-old male with a past medical history of hypertension, diabetes mellitus,ALICIA on BiPAP, morbid obesity, dyslipidemia, hypothyroidism, former smoker (quit 15 years ago), daily alcohol use (2 shots of bourbon a day) who was transferred here from [facility]. Heunderwent robotic assisted umbilical hernia repair on 01/20/[address] Bowman. Postop, he had persistent abdominal pain and hypoxia requiring oxygen so he was admitted to the hospital overnight. After surgery, oxygen requirements increased, he developed a whole-body rash, decreased urine output and increasing abdominal distention. He was found to have an AJ after receiving Farxiga, ibuprofen and Lasix. CT abdomen pelvis showed possible perforation with free air and free fluid. NG tube wasplaced and he was transferred to [place] S[facility] on 01/20. He was intubated upon arrival for significant tachypnea, increased work of breathing and hypoxia. Post intubation he became hypotensive with a lactic acid of 5.0 and was given 2 L LR and norepinephrine initiated. 01/20 He is now status post robotic assisted diagnostic laparoscopy, exploratory laparotomy, abdominal washout, extraction of abdominal wall mesh, debridement of abdominal wall and placement of open abdominal wound VAC per Dr. Bowman and Dr. Schultz. He was found to have diffuse widespread bile peritonitis with modest amount of bile-stained fluid in all quadrants of the abdomen, no feculent peritonitis and no site of perforation or leakage. He was brought to the SICU postprocedure on mechanicalventilation. He became progressively more hypotensive requiring 2 pressors. Central line and arterial line placed. He developed an AJ, lactic acidosis and A-fib with rapid ventricular rate. He was given a dose of digoxin, 300 mg bolus of amiodarone and started on a amiodarone drip. 01/22 He underwent a second laparotomy, removal of wound VAC, debridement and closure of abdominal wall by Dr. Bowman. He was found to have no sign of bile leakage. The abdominal wound around the area of the umbilicus was discolored, soupy and somewhat necrotic, the fascia was able to be closed intraoperatively. Post-operatively he developed significant thrombocytopenia with platelets in the 60s, likely sepsis induced. 01/23 pressor requirements increased, he was noted to have bile leak from one of his laparoscopic sites along with abdominal distention and hypoxia. He is now status post EGD, exploratory laparotomy,cholecystectomy, and wound VAC placement per Dr. Lovelace and Dr. Bowman. There was no perforationidentified, a wound vac was applied along with 3 MADDY drains in his right abdomen and 2 MADDY drains in h is left abdomen. A right sided chest tube was also inserted for a pneumothorax and moderate/large pleural effusion which had a output of 800 mL upon placement. 01/25 Tmax 39.2, was pancultured with 1 blood culture from 01/24 positive GPC's JD pending. He hadincreased oxygen requirements requiring 90% FiO2 and 8 of PEEP. Converted from atrial fibrillation to normal sinus rhythm however QTc on EKG greater than 500 so amiodarone drip discontinued. 01/27, status post removal of wound VAC, abdominal exploration, closure of abdominal wall, MADDY drainx 5 remain intact. Intraoperative found healthy viable bowel with minimal fluid, did not appear bilious and had no sign of pus or GI leakage. Found small amount of remaining subcutaneous fat heavily bile-stained from initial operation, appeared less viable and was sharply debrided off. Midline fascia closed relatively easily. 02/01 acute DVT involving left gastrocnemius vein 02/02-Extubated after CPAP trial and placed on high flow nasal cannula. Continue to have excessive secretions requiring frequent suctioning. Then continued to have ongoing and persistent hypoxia and decision was made to reintubate. 24 Hour Summary: Tracheostomy placed on 02/03 continues to tolerate well. Remains on mechanical ventilation, tube feeding resumed postprocedure. NPH increased now that tube feeding is resumed to ensure better glucose control Objective Vitals and Measurements T: 36.8 C (Oral) TMIN: 36.8 C (Oral) TMAX: 37.5 C (Axillary) HR: 77 (Monitored) RR: 26 BP: 155/51 SpO2: 100% Intake and Output 7AM Yesterday to 7AM Today Intake and Output (Last 24 hours) Intake Free Water: 1000.00 Enteral Tube Flush: 180.00 Enteral Tube Intake: 283.00 Oral Intake 0.00 Administration Information 400.00 Output Urine Voided 0.00 Urinary Catheter Output: 1575.00 Intra-Op Urine Catheter 500.00 Intra-Op EBL 1.00 Gastric Tube Output: 0.00 Stool Count 3.00 Total Summary Total Intake 1863.00 Total Output 2076.00 Fluid Balance -213.00 Physical Exam General: Follows simple commands, generalized weakness Head: Normocephalic, atraumatic ENT: PERRLA, eyes: 3+, brisk, oral: Mucous membranes dry, tracheostomy in place, NG with continuoustube feed Neck: Supple, no JVD Cardiac: Regular rate and rhythm, normal S1-S2 without murmurs rubs or gallops Respiratory: Lungs coarse bilaterally, respirations easy with ventilator Abdomen: Obese, round, distended, semifirm, multiple laparoscopic sites noted with damaris intact, large mid abdominal wound VAC in place, Delacruz draining clear yellow urine Musculoskeletal: No joint deformities Extremities: 1+ pulses, 2+ generalized edema Neurological: alert, follows simple commands, generalized weakness. Skin: Warm, dry, intact Weight Dosing Weight: 127.1 kg (01/23/24) Dosing Weight: 127.1 kg (01/21/24) Medications Medications (21) Active Scheduled: (10) albuterol - ipratropium 2.5 mg-0.5 mg/3 mL Inhal Cheryl UD 3 mL, Inhalation, q6hRT amLODIPine 10 mg tablet 10 mg 1 tab(s), Nasogastric, qDay budesonide 0.5 mg/2 mL Susp UD 0.5 mg 2 mL, Inhalation, BIDRT cefTRIAXone IVP syringe 2 gram(s) 20 mL, IV Push (INT), qDay chlorhexidine topical 0.12% Liquid (60 mL) 15 mL, Swish & Spit, QID famotidine 20 mg tablet 20 mg 1 tab(s), Nasogastric, qDay insulin isophane human recombinant 100 units/ml (10 mL) Inj 10 unit(s) 0.1 mL, Subcutaneous, q8h metoprolol tartrate 25 mg tablet 25 mg 1 tab(s), Nasogastric, q8h ocular lubricant - Ointment 3.5 gram(s) 1 mendy, Eyes, both, q8h ocular lubricant preserved Soln 15 mL 1 drop(s), Eyes, both, q8h Continuous: (2) insulin regular 100 unit(s) + NS Premix Diluent 100 mL 100 mL, Intravenous norepinephrine 8 mg [5 mcg/min] + NS Premix Diluent 250 mL 250 mL, Intravenous, 9.38 mL/hr PRN: (9) acetaminophen-HYDROcodone 325-5 mg tablet 1 tab(s), Oral, q4h acetaminophen-HYDROcodone 325-5 mg tablet 2 tab(s), Oral, q6h dextrose 50% Solution Disp syringe 50 mL 25 g 50 mL, IV Push, AsDirected fentaNYL 50 mcg/mL (2mL) ampule 50 mcg 1 mL, IV Push, q15min fentaNYL 50 mcg/mL (2mL) ampule 25 mcg 0.5 mL, IV Push, q15min hydralazine 20 mg/mL (1mL) vial 10 mg 0.5 mL, IV Push, q4h insulin regular human recombinant 100 units/ml (10 mL) Solution sliding scale insulin, Subcutaneous, q4h ocular lubricant - Ointment 3.5 gram(s) 1 mendy, Eyes, both, AsDirected ocular lubricant preserved Soln 15 mL 1 drop(s), Eyes, both, AsDirected Lab Results 02/04 05:07 WBC: 8.1 Hgb: 9.6 L Hct: 28.4 L Platelet: 421 Neutrophil %: 85.6 H 02/03 04:48 WBC: 8.0 Hgb: 10.7 L Hct: 32.0 L Platelet: 371 Neutrophil %: 85.7 H Glucose Level: 126 H Sodium Level: 144 Potassium Level: 3.9 BUN: 73.0 H Creatinine Lvl (s): 1.75 H EKG No qualifying data available. Assessment/Plan 1. Acute respiratory failure requiring intubation 01/21/2024 with continued mechanical ventilation 2. Status post removal of wound VAC, abdominal exploration, closure of abdominal wall 01/27 3. Pneumoperitoneum with bile leak status post robotic assisted diagnostic laparoscopic, exploratory lap, abdominal washout, extraction of abdominal wall with mesh, debridement of abdominal wall and placement of open abdominal wound VAC (01/21/2024), second look laparotomy, removal of wound VAC, debridement and closure of abdominal wall (01/23/2024) and exploratory lap, cholecystectomy, wound VACplacement, right side chest tube placement (01/24/2024) 4. Umbilical hernia status post robotic assisted umbilical hernia preperitoneal repair with mesh (01/20/2024) 5. Acute kidney injury, improving 6. Septic shock resolved 7. Atrial fibrillation RVR resolved, remains in sinus rhythm 8. DVT involving left gastrocnemius vein 9. Poor nutrition 10. Hypernatremia-improving 11. History of hypertension, diabetes mellitus, ALICIA on BiPAP, dyslipidemia, hypothyroidism, morbid obesity, daily alcohol use, and former smoker Plan: 1. Continue mechanical ventilation with current settings, VAP/SBT protocols in place. Continue intermittent fentanyl for pain control. 2. amlodipine 10 mg, Lopressor 25 mg every 8 hours 3. Nepro 50 mL/h, free water 500 mL every 6 hours 4. NPH 15 units every 8 hours 5. Continue ceftriaxone plan for 7-day course 6. Nephrology following for AJ, has not required hemodialysis, creatinine improving 7. Pepcid 20 mg IV daily for GI prophylaxis 8. SCDs for DVT prophylaxis, chemical prophylaxis when appropriate 9. PT/OT following 10. Social work following for LTAC placement for rehabilitation 11. CBC and BMP in a.m. CODE STATUS: Full code Case discussed in detail with newspaper distributor supervisor see addendum to follow Digitally Signed by JOSE ANGEL FREGOSO on 02/05/2024 07:26 AM [facility] [id number] Note Date of Service 02/05/24 Reason for Consultation Admission From: Other: [facility] hospital Follow up: Wound vac Skin Team Findings Vitals and Measurements T: 37.1 C (Oral) TMIN: 36.8 C (Oral) TMAX: 37.5 C (Axillary) HR: 81 (Apical) RR: 29 (Total) BP: 158/51 SpO2: 92% Pressure Area Details ------Incision/Wound------ Abdomen Anterior - Incision, Wound Dressing/Activity: Applied Abdomen Anterior - Incision, Wound Dressing: Petroleum gauze, Vacuum assisted closure Abdomen Anterior - Incision, Wound Surrounding Tissue: Erythema, Denuded, Edematous, Induration Abdomen Anterior - Incision, Wound Topical Agent: Medihoney Abdomen Anterior - Neg Pressure Wound Therapy Dressing: Black Sponge 1 long strip spiraled under tension sutures & tucked into undermining at 8 O'clock; 1 small piece into 4 O'clock undermining Used Ismael strips & duoderm over bottom 2 tension sutures along periwound Abdomen Anterior - Negative Pressure Wound SettinmmHg Abdomen Anterior - Skin Abnormality Color: Brown, Red, Yellow Abdomen Anterior - Skin Abnormality Pattern: Depressed Abdomen Anterior - Skin Abnormality Type: Surgical incision Abdomen Anterior - Wound Associated Pain: With dressing change Abdomen Anterior - Wound Bed Tissue Type: Granulation, Necrotic tissue, slough, Other: Fascia 20% covered with Adaptic Abdomen Anterior - Wound Drainage Device: Negative pressure wound system Abdomen Anterior - Wound Edge: Attached to wound bed, Sutured: 3 large tension sutures & small sutures noted within wound bed, Unattached to wound bed: undermining noted Abdomen Anterior - Wound Exudate Amount: Moderate Abdomen Anterior - Wound Exudate Odor: None Abdomen Anterior - Wound Exudate Type: Seropurulent Abdomen Anterior - Wound Percent Granulated: 50 % Abdomen Anterior - Wound Percent Necrotic Tissue Slough: 30 % Abdomen Left Lateral - Incision, Wound Dressing/Activity: Applied Abdomen Left Lateral - Incision, Wound Dressing: Hydrocolloid (Duoderm), Silver Impregnated Dressing (Aquacel Ag) Abdomen Left Lateral - Incision, Wound Surrounding Tissue: Erythema, Edematous, Induration Abdomen Left Lateral - Skin Abnormality Color: Brown, Red, Yellow Abdomen Left Lateral - Skin Abnormality Pattern: Scattered, Other: multiple partial & full thickness ulcers Abdomen Left Lateral - Skin Abnormality Type: Medical adhesive skin injury Abdomen Left Lateral - Wound Bed Tissue Type: Granulation, Necrotic tissue, slough, Other: crust Abdomen Left Lateral - Wound Exudate Amount: Moderate Abdomen Left Lateral - Wound Exudate Odor: None Abdomen Left Lateral - Wound Exudate Type: Serous Abdomen Left Lateral - Wound Status: Improving Abdomen Right Lateral - Incision, Wound Dressing: Open to air Abdomen Right Lateral - Skin Abnormality Color: Red, Yellow Abdomen Right Lateral - Skin Abnormality Pattern: Depressed Abdomen Right Lateral - Skin Abnormality Type: Procedure site Abdomen Right Lateral - Wound Bed Tissue Type: Granulation, Necrotic tissue, slough Abdomen Right Lateral - Wound Exudate Amount: Small Abdomen Right Lateral - Wound Exudate Odor: None Abdomen Right Lateral - Wound Exudate Type: Serous Abdomen Right Multiple scattered - Incision, Wound Dressing: Open to air Abdomen Right Multiple scattered - Incision, Wound Surrounding Tissue: Erythema, Edematous, Induration Abdomen Right Multiple scattered - Skin Abnormality Color: Red, Yellow Abdomen Right Multiple scattered - Skin Abnormality Pattern: Scattered Abdomen Right Multiple scattered - Skin Abnormality Type: Medical adhesive skin injury Abdomen Right Multiple scattered - Wound Bed Tissue Type: Granulation, Necrotic tissue, slough Abdomen Right Multiple scattered - Wound Exudate Amount: Scant Abdomen Right Multiple scattered - Wound Exudate Odor: None Abdomen Right Multiple scattered - Wound Exudate Type: Serous Assessments and Recommendations ------Assessments------ Current Skin/Wound Interventions: Hospital bed, Low air loss mattress, Bariatric bed, Turn and position system, Turn and reposition every 2 hours Present For Wound Observation: Nurse ------Recommendations------ Recommended Skin/Wound Interventions: Low air loss mattress, Bariatric bed, Seat cushion, Turn and position system, Turn and reposition every 2 hours, Consult Dietitian, Proposed orders sent to physician, Other: Wound vac applied & recommended orders, skin team to change [facility] 02/04 Wound vac removed by surgeon, Reapplied no complications, recommend to continue treatment. Education No qualifying data available. Problem List/Past Medical History Ongoing DM type 2, goal HbA1c < 7.5% Hernia centeral/midline, ventricle (large) Hernia, umbilical History of basal cell carcinoma (BCC) of skin, nose History of COVID-19 History of ventral hernia HTN, goal below 140/90 Hyperlipidemia LDL goal <100 Hypothyroidism in adult Increased BMI Increased BMI (body mass index) Laceration of skin of right hand Medicare annual wellness visit, subsequent Non-smoker Risk and functional assessment Screening for abdominal aortic aneurysm Screening for cardiovascular condition Screening for colorectal cancer Screening for glaucoma Screening for prostate cancer Vitamin D deficiency Historical Basal cell carcinoma of nose COVID-19 virus infection Overweight Digitally Signed by CLAUDIA Brown on 02/05/2024 09:15 AM [facility] [id number] Nephrology Progress note Subjective Patient seen and examined. Remains intubated on mechanical ventilation. Chart was reviewed. Discussed with nursing. Objective Vitals and Measurements T: 37.1 C (Oral) TMIN: 36.8 C (Oral) TMAX: 37.5 C (Axillary) HR: 81 (Apical) RR: 29 (Total) BP: 158/51 SpO2: 92% Intake and Output 7AM Yesterday to 7AM Today Intake and Output (Last 24 hours) Intake Free Water: 1500.00 Enteral Tube Flush: 220.00 Enteral Tube Intake: 382.00 Administration Information 400.00 Oral Intake 0.00 Output Urine Voided 0.00 Urinary Catheter Output: 1575.00 Intra-Op Urine Catheter 500.00 Intra-Op EBL 1.00 Gastric Tube Output: 0.00 Stool Count 3.00 Total Summary Total Intake 2502.00 Total Output 2076.00 Fluid Balance 426.00 Physical Exam Gen: Trached on mechanical ventilation Lungs: Equal breath sounds bilaterally, chest tube CVS: Regular rate and rhythm, no murmur, no rubs, tachycardia Abd: Round sounds. Surgical wound noted. Wound VAC Neuro: Awake, intubated Ext: Trace edema Delacruz catheter Weight Dosing Weight: 127.1 kg (01/23/24) Dosing Weight: 127.1 kg (01/21/24) Medications Medications (21) Active Scheduled: (10) albuterol - ipratropium 2.5 mg-0.5 mg/3 mL Inhal Cheryl UD 3 mL, Inhalation, q6hRT amLODIPine 10 mg tablet 10 mg 1 tab(s), Nasogastric, qDay budesonide 0.5 mg/2 mL Susp UD 0.5 mg 2 mL, Inhalation, BIDRT cefTRIAXone IVP syringe 2 gram(s) 20 mL, IV Push (INT), qDay chlorhexidine topical 0.12% Liquid (60 mL) 15 mL, Swish & Spit, QID famotidine 20 mg tablet 20 mg 1 tab(s), Nasogastric, qDay insulin isophane human recombinant 100 units/ml (10 mL) Inj 15 unit(s) 0.15 mL, Subcutaneous, q8h metoprolol tartrate 25 mg tablet 25 mg 1 tab(s), Nasogastric, q8h ocular lubricant - Ointment 3.5 gram(s) 1 mendy, Eyes, both, q8h ocular lubricant preserved Soln 15 mL 1 drop(s), Eyes, both, q8h Continuous: (2) insulin regular 100 unit(s) + NS Premix Diluent 100 mL 100 mL, Intravenous norepinephrine 8 mg [5 mcg/min] + NS Premix Diluent 250 mL 250 mL, Intravenous, 9.38 mL/hr PRN: (9) acetaminophen-HYDROcodone 325-5 mg tablet 1 tab(s), Oral, q4h acetaminophen-HYDROcodone 325-5 mg tablet 2 tab(s), Oral, q6h dextrose 50% Solution Disp syringe 50 mL 25 g 50 mL, IV Push, AsDirected fentaNYL 50 mcg/mL (2mL) ampule 50 mcg 1 mL, IV Push, q15min fentaNYL 50 mcg/mL (2mL) ampule 25 mcg 0.5 mL, IV Push, q15min hydralazine 20 mg/mL (1mL) vial 10 mg 0.5 mL, IV Push, q4h insulin regular human recombinant 100 units/ml (10 mL) Solution sliding scale insulin, Subcutaneous, q4h ocular lubricant - Ointment 3.5 gram(s) 1 mendy, Eyes, both, AsDirected ocular lubricant preserved Soln 15 mL 1 drop(s), Eyes, both, AsDirected Lab Results 02/04 05:07 WBC: 8.1 Hgb: 9.6 L Hct: 28.4 L Platelet: 421 Neutrophil %: 85.6 H Glucose Level: 235 H Sodium Level: 145 Potassium Level: 4.2 BUN: 76.0 H Creatinine Lvl (s): 1.71 H 02/03 04:48 WBC: 8.0 Hgb: 10.7 L Hct: 32.0 L Platelet: 371 Neutrophil %: 85.7 H Glucose Level: 126 H Sodium Level: 144 Potassium Level: 3.9 BUN: 73.0 H Creatinine Lvl (s): 1.75 H EKG No qualifying data available. Assessment/Plan 1. Acute kidney injury likely reflective of prerenal state. 2. Respiratory failure on mechanical ventilation 3. Hypernatremia possible DI 4. Pneumoperitoneum s/p exp lap with abdominal washout and extraction of mesh 5. hypokalemia [1] Renal function continues to be stable but still not back to baseline. Replace calcium already done by primary service. Decrease free water intake down the NG addressed with nursing. Blood pressure stable continue current antihypertensive medications. Match I's and O's as needed. Follow labs. See orders. [1] Progress Note; JUAN JIMENES MD 02/04/2024 09:00 EST Digitally Signed by JUAN JIMENES MD on 02/05/2024 08:50 AM [facility] [id number] [facility] Progress note Date of Service 02/05/2024 Surgery progress note: Tmax 37 5. Vital signs stable. Patient 1 day status post tracheostomy placement. Remains on the vent although now being put on CPAP. Patient wide-awake and alert. Subjectively says he does not feel well. He is complaining of some abdominal discomfort. Remains on tube feeds now at 50 cc an hour and tolerating them well. Having liquid bowel movements.Chest x-ray looks clear. Chest tube has been removed. Abdomen is soft and only mildly tender. Bowelsounds are excellent. Abdominal wound is examined today the wound VAC dressing is taken off. There are still some areas of devitalized eschar along the fascia in the midportion of the wound but partsare beginning to granulate and overall the wound looks high pressure cleaner. White blood count remains normal at 8.1. Hemoglobin 9.6. BUN and creatinine are stable in the 70s and 1.7. At this point continue antibiotic treatment of the recent Klebsiella in the sputum. Continue vent support with increased efforts to wean now that the patient is trached. Continue nutritional support with tube feeds. Digitally Signed by SALVADOR BOWMAN MD on 02/05/2024 08:12 AM [facility] [id number] Note Date of Service 02/05/2024 Subjective Corinne Correa is a 73-year-old male with a past medical history of hypertension, diabetes mellitus,ALICIA on BiPAP, morbid obesity, dyslipidemia, hypothyroidism, former smoker (quit 15 years ago), daily alcohol use (2 shots of bourbon a day) who was transferred here from [facility]. Heunderwent robotic assisted umbilical hernia repair on 01/20/[address] Bowman. Postop, he had persistent abdominal pain and hypoxia requiring oxygen so he was admitted to the hospital overnight. After surgery, oxygen requirements increased, he developed a whole-body rash, decreased urine output and increasing abdominal distention. He was found to have an AJ after receiving Farxiga, ibuprofen and Lasix. CT abdomen pelvis showed possible perforation with free air and free fluid. NG tube wasplaced and he was transferred to [place] [facility] on 01/20. He was intubated upon arrival for significant tachypnea, increased work of breathing and hypoxia. Post intubation he became hypotensive with a lactic acid of 5.0 and was given 2 L LR and norepinephrine initiated. 01/20 He is now status post robotic assisted diagnostic laparoscopy, exploratory laparotomy, abdominal washout, extraction of abdominal wall mesh, debridement of abdominal wall and placement of open abdominal wound VAC per Dr. Bowman and Dr. Schultz. He was found to have diffuse widespread bile peritonitis with modest amount of bile-stained fluid in all quadrants of the abdomen, no feculent peritonitis and no site of perforation or leakage. He was brought to the SICU postprocedure on mechanicalventilation. He became progressively more hypotensive requiring 2 pressors. Central line and arterial line placed. He developed an AJ, lactic acidosis and A-fib with rapid ventricular rate. He was given a dose of digoxin, 300 mg bolus of amiodarone and started on a amiodarone drip. 01/22 He underwent a second laparotomy, removal of wound VAC, debridement and closure of abdominal wall by Dr. Bowman. He was found to have no sign of bile leakage. The abdominal wound around the area of the umbilicus was discolored, soupy and somewhat necrotic, the fascia was able to be closed intraoperatively. Post-operatively he developed significant thrombocytopenia with platelets in the 60s, likely sepsis induced. 01/23 pressor requirements increased, he was noted to have bile leak from one of his laparoscopic sites along with abdominal distention and hypoxia. He is now status post EGD, exploratory laparotomy,cholecystectomy, and wound VAC placement per Dr. Lovelace and Dr. Bowman. There was no perforationidentified, a wound vac was applied along with 3 MADDY drains in his right abdomen and 2 MADDY drains in h is left abdomen. A right sided chest tube was also inserted for a pneumothorax and moderate/large pleural effusion which had a output of 800 mL upon placement. 01/25 Tmax 39.2, was pancultured with 1 blood culture from 01/24 positive GPC's JD pending. He hadincreased oxygen requirements requiring 90% FiO2 and 8 of PEEP. Converted from atrial fibrillation to normal sinus rhythm however QTc on EKG greater than 500 so amiodarone drip discontinued. 01/27, status post removal of wound VAC, abdominal exploration, closure of abdominal wall, MADDY drainx 5 remain intact. Intraoperative found healthy viable bowel with minimal fluid, did not appear bilious and had no sign of pus or GI leakage. Found small amount of remaining subcutaneous fat heavily bile-stained from initial operation, appeared less viable and was sharply debrided off. Midline fascia closed relatively easily. 02/01 acute DVT involving left gastrocnemius vein 02/02-Extubated after CPAP trial and placed on high flow nasal cannula. Continue to have excessive secretions requiring frequent suctioning. Then continued to have ongoing and persistent hypoxia and decision was made to reintubate. 24 Hour Summary: Tracheostomy placed on 02/03 continues to tolerate well. Remains on mechanical ventilation, tube feeding resumed postprocedure. NPH increased now that tube feeding is resumed to ensure better glucose control Objective Vitals and Measurements T: 36.8 C (Oral) TMIN: 36.8 C (Oral) TMAX: 37.5 C (Axillary) HR: 77 (Monitored) RR: 26 BP: 155/51 SpO2: 100% Intake and Output 7AM Yesterday to 7AM Today Intake and Output (Last 24 hours) Intake Free Water: 1000.00 Enteral Tube Flush: 180.00 Enteral Tube Intake: 283.00 Oral Intake 0.00 Administration Information 400.00 Output Urine Voided 0.00 Urinary Catheter Output: 1575.00 Intra-Op Urine Catheter 500.00 Intra-Op EBL 1.00 Gastric Tube Output: 0.00 Stool Count 3.00 Total Summary Total Intake 1863.00 Total Output 2076.00 Fluid Balance -213.00 Physical Exam General: Follows simple commands, generalized weakness Head: Normocephalic, atraumatic ENT: PERRLA, eyes: 3+, brisk, oral: Mucous membranes dry, tracheostomy in place, NG with continuoustube feed Neck: Supple, no JVD Cardiac: Regular rate and rhythm, normal S1-S2 without murmurs rubs or gallops Respiratory: Lungs coarse bilaterally, respirations easy with ventilator Abdomen: Obese, round, distended, semifirm, multiple laparoscopic sites noted with damaris intact, large mid abdominal wound VAC in place, Delacruz draining clear yellow urine Musculoskeletal: No joint deformities Extremities: 1+ pulses, 2+ generalized edema Neurological: alert, follows simple commands, generalized weakness. Skin: Warm, dry, intact Weight Dosing Weight: 127.1 kg (01/23/24) Dosing Weight: 127.1 kg (01/21/24) Medications Medications (21) Active Scheduled: (10) albuterol - ipratropium 2.5 mg-0.5 mg/3 mL Inhal Cheryl UD 3 mL, Inhalation, q6hRT amLODIPine 10 mg tablet 10 mg 1 tab(s), Nasogastric, qDay budesonide 0.5 mg/2 mL Susp UD 0.5 mg 2 mL, Inhalation, BIDRT cefTRIAXone IVP syringe 2 gram(s) 20 mL, IV Push (INT), qDay chlorhexidine topical 0.12% Liquid (60 mL) 15 mL, Swish & Spit, QID famotidine 20 mg tablet 20 mg 1 tab(s), Nasogastric, qDay insulin isophane human recombinant 100 units/ml (10 mL) Inj 10 unit(s) 0.1 mL, Subcutaneous, q8h metoprolol tartrate 25 mg tablet 25 mg 1 tab(s), Nasogastric, q8h ocular lubricant - Ointment 3.5 gram(s) 1 mendy, Eyes, both, q8h ocular lubricant preserved Soln 15 mL 1 drop(s), Eyes, both, q8h Continuous: (2) insulin regular 100 unit(s) + NS Premix Diluent 100 mL 100 mL, Intravenous norepinephrine 8 mg [5 mcg/min] + NS Premix Diluent 250 mL 250 mL, Intravenous, 9.38 mL/hr PRN: (9) acetaminophen-HYDROcodone 325-5 mg tablet 1 tab(s), Oral, q4h acetaminophen-HYDROcodone 325-5 mg tablet 2 tab(s), Oral, q6h dextrose 50% Solution Disp syringe 50 mL 25 g 50 mL, IV Push, AsDirected fentaNYL 50 mcg/mL (2mL) ampule 50 mcg 1 mL, IV Push, q15min fentaNYL 50 mcg/mL (2mL) ampule 25 mcg 0.5 mL, IV Push, q15min hydralazine 20 mg/mL (1mL) vial 10 mg 0.5 mL, IV Push, q4h insulin regular human recombinant 100 units/ml (10 mL) Solution sliding scale insulin, Subcutaneous, q4h ocular lubricant - Ointment 3.5 gram(s) 1 mendy, Eyes, both, AsDirected ocular lubricant preserved Soln 15 mL 1 drop(s), Eyes, both, AsDirected Lab Results 02/04 05:07 WBC: 8.1 Hgb: 9.6 L Hct: 28.4 L Platelet: 421 Neutrophil %: 85.6 H 02/03 04:48 WBC: 8.0 Hgb: 10.7 L Hct: 32.0 L Platelet: 371 Neutrophil %: 85.7 H Glucose Level: 126 H Sodium Level: 144 Potassium Level: 3.9 BUN: 73.0 H Creatinine Lvl (s): 1.75 H EKG No qualifying data available. Assessment/Plan 1. Acute respiratory failure requiring intubation 01/21/2024 with continued mechanical ventilation 2. Status post removal of wound VAC, abdominal exploration, closure of abdominal wall 01/27 3. Pneumoperitoneum with bile leak status post robotic assisted diagnostic laparoscopic, exploratory lap, abdominal washout, extraction of abdominal wall with mesh, debridement of abdominal wall and placement of open abdominal wound VAC (01/21/2024), second look laparotomy, removal of wound VAC, debridement and closure of abdominal wall (01/23/2024) and exploratory lap, cholecystectomy, wound VACplacement, right side chest tube placement (01/24/2024) 4. Umbilical hernia status post robotic assisted umbilical hernia preperitoneal repair with mesh (01/20/2024) 5. Acute kidney injury, improving 6. Septic shock resolved 7. Atrial fibrillation RVR resolved, remains in sinus rhythm 8. DVT involving left gastrocnemius vein 9. Poor nutrition 10. Hypernatremia-improving 11. History of hypertension, diabetes mellitus, ALICIA on BiPAP, dyslipidemia, hypothyroidism, morbid obesity, daily alcohol use, and former smoker Plan: 1. Continue mechanical ventilation with current settings, VAP/SBT protocols in place. Continue intermittent fentanyl for pain control. 2. amlodipine 10 mg, Lopressor 25 mg every 8 hours 3. Nepro 50 mL/h, free water 500 mL every 6 hours 4. NPH 15 units every 8 hours 5. Continue ceftriaxone plan for 7-day course 6. Nephrology following for AJ, has not required hemodialysis, creatinine improving 7. Pepcid 20 mg IV daily for GI prophylaxis 8. SCDs for DVT prophylaxis, chemical prophylaxis when appropriate 9. PT/OT following 10. Social work following for LTAC placement for rehabilitation 11. CBC and BMP in a.m. CODE STATUS: Full code Case discussed in detail with newspaper distributor supervisor see addendum to follow Digitally Signed by JOSE ANGEL FREGOSO on 02/05/2024 07:26 AM [id number] Note ORIGINAL EXAMINATION: ONE XRAY VIEW OF THE CHEST 02/04/2024 4:44 pm COMPARISON: 02/04/2024 12:31 p.m. HISTORY: ORDERING SYSTEM PROVIDED HISTORY: Reason for Exam: right chest tube discontinued FINDINGS: There is tracheostomy tube extending to the proximal trachea. Enteric feeding tube is present extending to the stomach with tip not included on field of view. There is interval removal of the right chest tube. There is hypoinflation with accentuation of the cardiomediastinal silhouette and increased bronchovascular markings. There is small left basilar effusion and subsegmental consolidations/atelectasis again seen. There is no pulmonary vascular congestion. There is no pneumothorax. Osseous structures demonstrate degenerative changes. IMPRESSION: There is interval removal of right chest tube. There is no pneumothorax. There is small left basilar effusion and subsegmental consolidations/atelectasis again seen. Interpreted by: Ed Doss Preliminary Report By: Ed Doss Electronically signed By Ed Doss Dictated Date: 02/04/2024 9:01:00 PM Prelim Date: 02/04/2024 9:08:48 PM Sign Date: 02/04/2024 9:08:48 PM [facility] Progress note Patient had order in for bilateral soft limb restraints that were due to be re- ordered at 1325. Thepatient went to surgery at 1111 and the order was not discontinued. The order was completed before being able to discontinue in the chart. Once patient returned from surgery, the restraints remain off. Digitally Signed by Fernanda Ferreira RN on 02/04/2024 02:39 PM [facility] [id number] Procedure note Date of Service 02/04/2024 Procedure Name Right chest tube discontinued Referring Provider Dr. Bowman Consent Verbal consent obtained Indication Pneumothorax resolved Location Right Pre-Procedure Exam Patient is intubated per trach mask in the SICU. Respirations are easy and nonlabored with ventilatory support. O2 sats 99%. Procedural Sedation None Technique Procedure explained and consent obtained. Supplies at bedside. Occlusive dressing prepared. Outer dressing removed. Sutures removed. Proper breathing pattern explained and demonstrated by patient. Chest tube removed completely. Direct and immediate pressure applied using the occlusive dressing. Tape firmly in place. Signs and symptoms to watch for/report explained. Vital signs stable. Follow-up chest x-ray ordered. Post-Procedure Exam Patient remains awake and alert, intubated per trach mask in the SICU. Respirations remain easy, O2sats 100% per ventilatory support Findings No new findings Complications None Estimated Blood Loss 0 Total Time 20 minutes Assessment/Plan Orders: Communication Order (continuous), 02/03/24 13:53:00 EST, Re-consult skin team if wound deteriorates, or for new skin integrity impairments, Constant order Skin Care, 02/03/24 13:53:00 EST, Elevate heels, qShift, Offload heels at all times in bed, waffle cushion to chair with Q 15 minute seat shift reminders Turn Patient, 02/03/24 13:53:00 EST, q2h, Use microclimate pads Wound Vacuum Dressing Care, 02/03/24 13:53:00 EST, abdomen, Continuous suction, 75 mmHg, Black sponge, Change: Mon/Wed/Fri, Weaved black sponge under tension sutures & into undermining, applied ismael ring & duoderm over distal sutures along periwound, left middle & proximal sutu... Follow Up/Recommendation Will order follow-up chest x-ray following chest tube removal in 4 hours. Digitally Signed by ARIANA HERNANDEZ on 02/04/2024 12:58 PM [facility] [id number] Note ORIGINAL EXAMINATION: ONE XRAY VIEW OF THE CHEST 02/04/2024 12:33 pm COMPARISON: 02/03/2024 HISTORY: ORDERING SYSTEM PROVIDED HISTORY: Reason for Exam: Post tracheotomy. FINDINGS: New permanent tracheostomy tube noted in functional position. Orogastric tube traverses the esophagus. Distal ports are not visualized on the image. There is a right-sided chest tube which is unchanged in position. Atelectasis observed in the right lower lobe adjacent to the chest tube. There is minimal bilateral pleural effusions. No pulmonary edema or pneumothorax is seen. IMPRESSION: 1. New tracheostomy tube in functional position. 2. Right-sided chest tube remains in functional position without pneumothorax. 3. Orogastric tube traverses the esophagus. Interpreted by: Chepe Gutierrez DO Preliminary Report By: Chepe Gutierrez DO Electronically signed By Chepe Gutierrez DO Dictated Date: 02/04/2024 2:29:44 PM Prelim Date: 02/04/2024 2:44:40 PM Sign Date: 02/04/2024 2:44:40 PM Ordering Provider: [facility]11-05-2024 Anesthesiology Consult note Patient: CORINNE CORREA Age: 73 years Sex: Male : 1950 Associated Diagnoses: None Author: LUISITO MCNEILL DO Preoperative Information greater than 8 hours solid foods, greater than 2 hours clear liquids Anesthesia history Patient's history: negative. Family's history: negative. History of Present Illness Please refer to most recent H and P / daily progress note / consultation note for further details 1. Acute respiratory failure requiring intubation 01/21/2024 with continued mechanical ventilation 2. Status post removal of wound VAC, abdominal exploration, closure of abdominal wall, MADDY drain x 5remain, 01/27 3. Pneumoperitoneum with bile leak status post robotic assisted diagnostic laparoscopic, exploratory lap, abdominal washout, extraction of abdominal wall with mesh, debridement of abdominal wall and placement of open abdominal wound VAC (01/21/2024), second look laparotomy, removal of wound VAC, debridement and closure of abdominal wall (01/23/2024) and exploratory lap, cholecystectomy, wound VACplacement, right side chest tube placement (01/24/2024) 4. Umbilical hernia status post robotic assisted umbilical hernia preperitoneal repair with mesh (01/20/2024) 5. Acute kidney injury, improving 6. Septic shock resolved 7. Atrial fibrillation RVR resolved, remains in sinus rhythm 8. DVT involving left gastrocnemius vein 9. Poor nutrition 10. Hypernatremia-improving 11. History of hypertension, diabetes mellitus, ALICIA on BiPAP, dyslipidemia, hypothyroidism, morbid obesity, daily alcohol use, and former smoker Health Status Allergies: Allergic Reactions (Selected) NKA, Allergies (1) ActiveSeverityReaction NKANone Documented Current medications: (Selected) Inpatient Medications Ordered Dextrose: 25 g, 50 mL, IV Push, AsDirected, PRN: Low blood sugar DuoNeb: 3 mL, Inhalation, q6hRT HumuLIN R: sliding scale insulin, Subcutaneous, q4h, PRN: Protocol, glycemic control Insulin Regular for IV 100 unit(s) + NS Premix Diluent 100 mL: Sliding Scale Insulin, Intravenous Trinity 325- 5 mg oral tablet: 1 tab(s), Oral, q4h, PRN: Pain, scale 1-6 Trinity 325- 5 mg oral tablet: 2 tab(s), Oral, q6h, PRN: Pain, scale 7-10 Norepinephrine for IV 8 mg [5 mcg/min] + NS PMX titrate 250 mL: 9.38 mL/hr, Intravenous Peridex 0.12% oral rinse liquid: 15 mL, Swish & Spit, QID Puralube ophth solution: 1 drop(s), Eyes, both, AsDirected, PRN: Protocol, eye care Puralube ophth solution: 1 drop(s), Eyes, both, q8h Puralube ophthalmic ointment: 1 mendy, Eyes, both, AsDirected, PRN: Protocol, eye care Puralube ophthalmic ointment: 1 mendy, Eyes, both, q8h Sublimaze: 25 mcg, 0.5 mL, IV Push, q15min, PRN: BPS/TELEGRAPH DISPATCHER Sublimaze: 50 mcg, 1 mL, IV Push, q15min, PRN: BPS/TELEGRAPH DISPATCHER amLODIPine: 10 mg, 1 tab(s), Nasogastric, qDay budesonide 0.5 mg/2 mL inhalation suspension: 0.5 mg, 2 mL, Inhalation, BIDRT cefTRIAXone: 2 gram(s), 20 mL, 240 mL/hr, IV Push (INT), qDay famotidine: 20 mg, 1 tab(s), Nasogastric, qDay heparin 5000 units/mL injection: 5,000 unit(s), 1 mL, Subcutaneous, q8h hydrALAZINE: 10 mg, 0.5 mL, IV Push, q4h, PRN: Systolic BP: See order comments insulin NPH: 10 unit(s), 0.1 mL, Subcutaneous, q8h metoprolol tartrate (Lopressor): 25 mg, 1 tab(s), Nasogastric, q8h Prescriptions Prescribed Farxiga 10 mg oral tablet: 10 mg, 1 tab(s), Oral, qDay, 90 tab(s), 3 Refill(s) MetFORMIN (Eqv-Glucophage XR) 500 mg oral tablet, EXTENDED RELEASE: 1,000 mg, 2 tab(s), Oral, BID, 360 tab(s), 2 Refill(s) Ozempic 4 mg/3 mL (1 mg dose) subcutaneous solution: 1 mg, Subcutaneous, qWeek, 9 mL, 1 Refill(s) amLODIPine 5 mg oral tablet: 5 mg, 1 tab(s), Oral, qDay, 90 tab(s), 3 Refill(s) atorvastatin 20 mg oral tablet: 20 mg, 1 tab(s), Oral, qDay, for 90 day(s), 90 tab(s), 1 Refill(s) levothyroxine 25 mcg (0.025 mg) oral tablet: 50 mcg, 2 tab(s), Oral, qDay, for 90 day(s), 180 tab(s), 1 Refill(s) losartan 100 mg oral tablet: 100 mg, 1 tab(s), Oral, qDay, for 90 day(s), 90 tab(s), 1 Refill(s) metoprolol succinate 25 mg oral TABLET extended release: 25 mg, 1 tab(s), Oral, qDay, for 90 day(s), Do not crush or chew (controlled release), 90 tab(s), 1 Refill(s) Documented Medications Documented HumaLOG Mix 50/50 KwikPen 3 mL PEN: 15 unit(s), Subcutaneous, BID, 3 mL, 0 Refill(s) Vitamin D (3) 45 units oral capsule: 0 Refill(s) Vitamin D with Minerals oral tablet: 1 tab(s), Oral, qDay, 30 tab(s), 0 Refill(s), Medications (22) Active Scheduled: (11) albuterol - ipratropium 2.5 mg-0.5 mg/3 mL Inhal Cheryl UD 3 mL, Inhalation, q6hRT amLODIPine 10 mg tablet 10 mg 1 tab(s), Nasogastric, qDay budesonide 0.5 mg/2 mL Susp UD 0.5 mg 2 mL, Inhalation, BIDRT cefTRIAXone IVP syringe 2 gram(s) 20 mL, IV Push (INT), qDay chlorhexidine topical 0.12% Liquid (60 mL) 15 mL, Swish & Spit, QID famotidine 20 mg tablet 20 mg 1 tab(s), Nasogastric, qDay heparin 5,000 units/mL (1 mL) vial 5,000 unit(s) 1 mL, Subcutaneous, q8h insulin isophane human recombinant 100 units/ml (10 mL) Inj 10 unit(s) 0.1 mL, Subcutaneous, q8h metoprolol tartrate 25 mg tablet 25 mg 1 tab(s), Nasogastric, q8h ocular lubricant - Ointment 3.5 gram(s) 1 mendy, Eyes, both, q8h ocular lubricant preserved Soln 15 mL 1 drop(s), Eyes, both, q8h Continuous: (2) insulin regular 100 unit(s) + NS Premix Diluent 100 mL 100 mL, Intravenous norepinephrine 8 mg [5 mcg/min] + NS Premix Diluent 250 mL 250 mL, Intravenous, 9.38 mL/hr PRN: (9) acetaminophen-HYDROcodone 325-5 mg tablet 1 tab(s), Oral, q4h acetaminophen-HYDROcodone 325-5 mg tablet 2 tab(s), Oral, q6h dextrose 50% Solution Disp syringe 50 mL 25 g 50 mL, IV Push, AsDirected fentaNYL 50 mcg/mL (2mL) ampule 50 mcg 1 mL, IV Push, q15min fentaNYL 50 mcg/mL (2mL) ampule 25 mcg 0.5 mL, IV Push, q15min hydralazine 20 mg/mL (1mL) vial 10 mg 0.5 mL, IV Push, q4h insulin regular human recombinant 100 units/ml (10 mL) Solution sliding scale insulin, Subcutaneous, q4h ocular lubricant - Ointment 3.5 gram(s) 1 mendy, Eyes, both, AsDirected ocular lubricant preserved Soln 15 mL 1 drop(s), Eyes, both, AsDirected Problem list: Medical History of ventral hernia / SNOMED CT 774410522 / Confirmed Hernia centeral/midline, ventricle (large) / SNOMED CT 0394226165 / Confirmed History of basal cell carcinoma (BCC) of skin, nose / SNOMED CT 8625812001 / Confirmed History of COVID-19 / SNOMED CT 7515368047 / Confirmed Hyperlipidemia LDL goal <100 / SNOMED CT 16646677 / Confirmed HTN, goal below 140/90 / SNOMED CT 8833607292 / Confirmed Hypothyroidism in adult / SNOMED CT 57012511 / Confirmed Increased BMI (body mass index) / SNOMED CT 16137084 / Confirmed Increased BMI / SNOMED CT 99900459 / Confirmed Laceration of skin of right hand / SNOMED CT 7758359418 / Confirmed Non-smoker / SNOMED CT 91798711 / Confirmed Screening for prostate cancer / SNOMED CT 422540085 / Confirmed Medicare annual wellness visit, subsequent / SNOMED CT 981948355 / Confirmed Screening for abdominal aortic aneurysm / SNOMED CT 558108504 / Confirmed Screening for cardiovascular condition / SNOMED CT 480282188 / Confirmed Screening for glaucoma / SNOMED CT 925038651 / Confirmed Screening for colorectal cancer / SNOMED CT 296959405 / Confirmed Risk and functional assessment / SNOMED CT 602760271 / Confirmed DM type 2, goal HbA1c < 7.5% / SNOMED CT 280293658 / Confirmed Hernia, umbilical / SNOMED CT 0936991257 / Confirmed Vitamin D deficiency / SNOMED CT 73699972 / Confirmed, Active Problems (21) DM type 2, goal HbA1c < 7.5% Hernia centeral/midline, ventricle (large) Hernia, umbilical History of basal cell carcinoma (BCC) of skin, nose History of COVID-19 History of ventral hernia HTN, goal below 140/90 Hyperlipidemia LDL goal <100 Hypothyroidism in adult Increased BMI Increased BMI (body mass index) Laceration of skin of right hand Medicare annual wellness visit, subsequent Non-smoker Risk and functional assessment Screening for abdominal aortic aneurysm Screening for cardiovascular condition Screening for colorectal cancer Screening for glaucoma Screening for prostate cancer Vitamin D deficiency Histories Past Medical History: Resolved Overweight (853243965): Resolved. Basal cell carcinoma of nose (1238776112): Resolved. COVID-19 virus infection (0347536446): Resolved. Family History: Hypertension Mother Father Heart disease Father Stroke Sister Hodgkin disease Sister Procedure history: CLOSURE OF ABDOMINAL WALL ([id number]) on 01/28/2024 at 73 Years. Comments: 01/28/2024 14:50 Mary Turner LPN REMOVAL OF ABTHERA WOUND VAC, ABDOMINAL EXPLORATION, CLOSURE OF ABDOMINAL WALL with endotracheal tube with endotracheal tube Laparotomy ([id number]) on 01/24/2024 at 73 Years. Comments: 01/28/2024 7:56 Mary Turner LPN Abdominal Laparotomy, EXPLORATORY LAPAROTOMY WITH APTHORA PLACEMENT. CHOLECYSTECTOMY. OP EGD with Anesthesia, ESAGHAGOGASTRODUODENOSCOPY WITH ANESTHESIA Cholecystectomy ([id number]) on 01/24/2024 at 73 Years. Comments: 01/28/2024 7:55 Mary Turner LPN CHOLECYSTECTOMY Laparotomy ([id number]) on 01/21/2024 at 73 Years. Comments: 01/23/2024 10:34 Mary Turner LPN ROBOTIC ASSISTED DIAGNOSTIC LAPAROSCOPY EXPLORATORY LAPAROTOMY; ABDOMINAL WASHOUT, EXTRACTION OF ABDOMINAL WALL MESH; DEBRIDEMENT OF ABDOMINAL WALL; PLACEMENT OF ABTHERA OPEN ABDOMINAL WOUND VAC. Hernia repair ([id number]) on 01/20/2024 at 73 Years. Comments: 01/20/2024 12:49 Mary Turner LPN ROBOTIC ASSISTED UMBILICAL HERNIA PREPERITONEAL REPAIR WITH MESH Colonoscopy ([id number]) on 09/29/2008 at 58 Years. Hernia ([id number]). Surgery ([id number]). Comments: 11/10/2020 14:07 Bernarda Finch LPN Right hand Surgery ([id number]). Comments: 11/10/2020 14:07 Bernarda Finch LPN Achilles tendon Social History: Social & Psychosocial Habits Alcohol 01/20/2024 Use: Current Type: Liquor Frequency: Daily Has alcohol use interfered with work or home life: No Comment: 2 shots every day - 01/20/2024 16:18 - Gudelia Sanderson RN Substance Abuse 01/20/2024 Use: Never Tobacco 01/20/2024 Tobacco Use: Former smoker, quit more Type: Cigarettes Number of years: 30 Home/Environment 01/20/2024 Living situation: Home/Independent Domestic Concerns None Lives In Multilevel home Spouse Name JESSICA Marital Status of Patient if Patient Independent Adult: Nutrition/Health 01/20/2024 Type of diet: Diabetic Caffeine intake amount: Pop Eating Difficulties None Physical Examination Vital Signs 02/04/2024 9:37 EST Heart Rate Monitored 80 bpm Respiratory Rate 27 br/min HI Systolic Blood Pressure Non-Invasive 121 mmHg Diastolic Blood Pressure Non-Invasive 54 mmHg LOW Mean Arterial Pressure (NBP) 72 mmHg Reason For Taking VItal Signs Routine 02/04/2024 7:57 EST Apical Heart Rate 90 bpm 02/04/2024 7:43 EST Heart Rate Monitored 88 bpm 02/04/2024 7:31 EST Temperature Oral 37.1 DegC Heart Rate Monitored 86 bpm Respiratory Rate 27 br/min HI Systolic Blood Pressure Non-Invasive 137 mmHg Diastolic Blood Pressure Non-Invasive 50 mmHg Mean Arterial Pressure (NBP) 74 mmHg Reason For Taking VItal Signs Routine 02/04/2024 6:45 EST Peripheral Pulse Rate 81 bpm Respiratory Rate 24 br/min HI 02/04/2024 6:00 EST Heart Rate Monitored 73 bpm Systolic Blood Pressure Non-Invasive 122 mmHg Diastolic Blood Pressure Non-Invasive 45 mmHg Mean Arterial Pressure (NBP) 66 mmHg 02/04/2024 5:32 EST Heart Rate Monitored 75 bpm Respiratory Rate 25 br/min HI Systolic Blood Pressure Non-Invasive 108 mmHg Diastolic Blood Pressure Non-Invasive 51 mmHg LOW Mean Arterial Pressure (NBP) 68 mmHg Reason For Taking VItal Signs Routine 02/04/2024 3:42 EST Temperature Oral 36.8 DegC Heart Rate Monitored 71 bpm Respiratory Rate 26 br/min HI Systolic Blood Pressure Non-Invasive 125 mmHg Diastolic Blood Pressure Non-Invasive 52 mmHg LOW Mean Arterial Pressure (NBP) 72 mmHg Reason For Taking VItal Signs Routine 02/04/2024 3:06 EST Heart Rate Monitored 71 bpm Respiratory Rate 25 br/min HI Systolic Blood Pressure Non-Invasive 129 mmHg Diastolic Blood Pressure Non-Invasive 53 mmHg LOW Mean Arterial Pressure (NBP) 73 mmHg 02/04/2024 2:05 EST Heart Rate Monitored 66 bpm Respiratory Rate 27 br/min HI Systolic Blood Pressure Non-Invasive 120 mmHg Diastolic Blood Pressure Non-Invasive 51 mmHg LOW Mean Arterial Pressure (NBP) 69 mmHg 02/04/2024 1:32 EST Heart Rate Monitored 65 bpm Respiratory Rate 24 br/min HI Systolic Blood Pressure Non-Invasive 118 mmHg Diastolic Blood Pressure Non-Invasive 51 mmHg LOW Mean Arterial Pressure (NBP) 69 mmHg Reason For Taking VItal Signs Routine 02/04/2024 0:05 EST Heart Rate Monitored 67 bpm Respiratory Rate 25 br/min HI Systolic Blood Pressure Non-Invasive 123 mmHg Diastolic Blood Pressure Non-Invasive 55 mmHg LOW Mean Arterial Pressure (NBP) 74 mmHg 02/03/2024 23:52 EST Peripheral Pulse Rate 67 bpm Respiratory Rate 25 br/min HI 02/03/2024 23:49 EST Heart Rate Monitored 67 bpm Respiratory Rate 25 br/min HI 02/03/2024 23:27 EST Apical Heart Rate 70 bpm 02/03/2024 23:13 EST Heart Rate Monitored 70 bpm 02/03/2024 23:08 EST Temperature Oral 36.8 DegC Heart Rate Monitored 70 bpm Respiratory Rate 27 br/min HI Systolic Blood Pressure Non-Invasive 133 mmHg Diastolic Blood Pressure Non-Invasive 54 mmHg LOW Mean Arterial Pressure (NBP) 73 mmHg Reason For Taking VItal Signs Routine 02/03/2024 22:09 EST Heart Rate Monitored 67 bpm Systolic Blood Pressure Non-Invasive 126 mmHg Diastolic Blood Pressure Non-Invasive 48 mmHg Mean Arterial Pressure (NBP) 67 mmHg 02/03/2024 21:17 EST Heart Rate Monitored 67 bpm Respiratory Rate 26 br/min HI Systolic Blood Pressure Non-Invasive 119 mmHg Diastolic Blood Pressure Non-Invasive 47 mmHg Mean Arterial Pressure (NBP) 67 mmHg Reason For Taking VItal Signs Routine 02/03/2024 20:50 EST Heart Rate Monitored 68 bpm Respiratory Rate 24 br/min HI 02/03/2024 20:21 EST Heart Rate Monitored 69 bpm 02/03/2024 20:05 EST Heart Rate Monitored 72 bpm Systolic Blood Pressure Non-Invasive 116 mmHg Diastolic Blood Pressure Non-Invasive 47 mmHg Mean Arterial Pressure (NBP) 65 mmHg 02/03/2024 19:36 EST Temperature Oral 37.0 DegC Heart Rate Monitored 74 bpm Respiratory Rate 26 br/min HI Systolic Blood Pressure Non-Invasive 133 mmHg Diastolic Blood Pressure Non-Invasive 59 mmHg LOW Mean Arterial Pressure (NBP) 80 mmHg Reason For Taking VItal Signs Routine 02/03/2024 18:50 EST Peripheral Pulse Rate 69 bpm Respiratory Rate 26 br/min HI 02/03/2024 17:56 EST Heart Rate Monitored 68 bpm 02/03/2024 17:32 EST Heart Rate Monitored 68 bpm Respiratory Rate 24 br/min HI Systolic Blood Pressure Non-Invasive 108 mmHg Diastolic Blood Pressure Non-Invasive 48 mmHg Mean Arterial Pressure (NBP) 66 mmHg Reason For Taking VItal Signs Routine 02/03/2024 16:01 EST Apical Heart Rate 69 bpm Heart Rate Monitored 71 bpm Systolic Blood Pressure Non-Invasive 116 mmHg Diastolic Blood Pressure Non-Invasive 63 mmHg Mean Arterial Pressure (NBP) 75 mmHg 02/03/2024 15:45 EST Temperature Oral 36.6 DegC Heart Rate Monitored 71 bpm Respiratory Rate 24 br/min HI Systolic Blood Pressure Non-Invasive 121 mmHg Diastolic Blood Pressure Non-Invasive 54 mmHg LOW Mean Arterial Pressure (NBP) 71 mmHg Reason For Taking VItal Signs Routine 02/03/2024 14:23 EST Heart Rate Monitored 73 bpm Respiratory Rate 26 br/min HI Systolic Blood Pressure Non-Invasive 117 mmHg Diastolic Blood Pressure Non-Invasive 53 mmHg LOW Mean Arterial Pressure (NBP) 70 mmHg Reason For Taking VItal Signs Routine 02/03/2024 12:00 EST Heart Rate Monitored 76 bpm Systolic Blood Pressure Non-Invasive 130 mmHg Diastolic Blood Pressure Non-Invasive 54 mmHg LOW Mean Arterial Pressure (NBP) 76 mmHg 02/03/2024 11:39 EST Peripheral Pulse Rate 74 bpm Respiratory Rate 22 br/min HI Systolic Blood Pressure Non-Invasive 143 mmHg HI Diastolic Blood Pressure Non-Invasive 77 mmHg 02/03/2024 11:30 EST Heart Rate Monitored 77 bpm Systolic Blood Pressure Non-Invasive 143 mmHg HI Diastolic Blood Pressure Non-Invasive 77 mmHg Mean Arterial Pressure (NBP) 93 mmHg 02/03/2024 11:15 EST Heart Rate Monitored 71 bpm Systolic Blood Pressure Non-Invasive 139 mmHg Diastolic Blood Pressure Non-Invasive 53 mmHg LOW Mean Arterial Pressure (NBP) 73 mmHg 02/03/2024 11:05 EST Temperature Oral 37.1 DegC Heart Rate Monitored 67 bpm Respiratory Rate 24 br/min HI Systolic Blood Pressure Non-Invasive 138 mmHg Diastolic Blood Pressure Non-Invasive 53 mmHg LOW Mean Arterial Pressure (NBP) 72 mmHg Reason For Taking VItal Signs Routine 02/03/2024 10:58 EST Heart Rate Monitored 66 bpm Systolic Blood Pressure Non-Invasive 137 mmHg Diastolic Blood Pressure Non-Invasive 54 mmHg LOW Mean Arterial Pressure (NBP) 75 mmHg Reason For Taking VItal Signs In Error (In Error) 02/03/2024 10:51 EST Heart Rate Monitored 68 bpm Systolic Blood Pressure Non-Invasive 114 mmHg Diastolic Blood Pressure Non-Invasive 52 mmHg LOW Mean Arterial Pressure (NBP) 70 mmHg 02/03/2024 10:45 EST Heart Rate Monitored 68 bpm Systolic Blood Pressure Non-Invasive 100 mmHg Diastolic Blood Pressure Non-Invasive 48 mmHg Mean Arterial Pressure (NBP) 63 mmHg 02/03/2024 10:40 EST Heart Rate Monitored 72 bpm Systolic Blood Pressure Non-Invasive 83 mmHg LOW Diastolic Blood Pressure Non-Invasive 40 mmHg Mean Arterial Pressure (NBP) 53 mmHg 02/03/2024 10:31 EST Heart Rate Monitored 77 bpm Reason For Taking VItal Signs Routine 02/03/2024 10:27 EST Heart Rate Monitored 79 bpm Systolic Blood Pressure Non-Invasive 163 mmHg HI Diastolic Blood Pressure Non-Invasive 56 mmHg LOW Mean Arterial Pressure (NBP) 83 mmHg Reason For Taking VItal Signs Routine 02/03/2024 10:24 EST Heart Rate Monitored 75 bpm Respiratory Rate 48 br/min >HHI Systolic Blood Pressure Non-Invasive 151 mmHg HI Diastolic Blood Pressure Non-Invasive 61 mmHg Mean Arterial Pressure (NBP) 87 mmHg Reason For Taking VItal Signs Routine 02/03/2024 9:15 EST Heart Rate Monitored 71 bpm Respiratory Rate 32 br/min >HHI Systolic Blood Pressure Non-Invasive 128 mmHg Diastolic Blood Pressure Non-Invasive 55 mmHg LOW Mean Arterial Pressure (NBP) 73 mmHg Reason For Taking VItal Signs Routine 02/03/2024 8:00 EST Apical Heart Rate 78 bpm 02/03/2024 7:32 EST Temperature Oral 37.8 DegC HI Heart Rate Monitored 79 bpm Respiratory Rate 36 br/min >HHI Systolic Blood Pressure Non-Invasive 138 mmHg Diastolic Blood Pressure Non-Invasive 52 mmHg LOW Mean Arterial Pressure (NBP) 74 mmHg Reason For Taking VItal Signs Routine 02/03/2024 7:26 EST Heart Rate Monitored 78 bpm Reason For Taking VItal Signs Routine 02/03/2024 6:52 EST Peripheral Pulse Rate 75 bpm Respiratory Rate 25 br/min HI 02/03/2024 6:30 EST Heart Rate Monitored 76 bpm Systolic Blood Pressure Non-Invasive 138 mmHg Diastolic Blood Pressure Non-Invasive 57 mmHg LOW Mean Arterial Pressure (NBP) 77 mmHg 02/03/2024 5:19 EST Heart Rate Monitored 77 bpm Respiratory Rate 27 br/min HI Systolic Blood Pressure Non-Invasive 130 mmHg Diastolic Blood Pressure Non-Invasive 57 mmHg LOW Mean Arterial Pressure (NBP) 76 mmHg Reason For Taking VItal Signs Routine 02/03/2024 4:30 EST Heart Rate Monitored 77 bpm Systolic Blood Pressure Non-Invasive 110 mmHg Diastolic Blood Pressure Non-Invasive 52 mmHg LOW Mean Arterial Pressure (NBP) 67 mmHg 02/03/2024 3:48 EST Temperature Oral 37.4 DegC HI Heart Rate Monitored 76 bpm Respiratory Rate 25 br/min HI Systolic Blood Pressure Non-Invasive 147 mmHg HI Diastolic Blood Pressure Non-Invasive 49 mmHg Mean Arterial Pressure (NBP) 74 mmHg Reason For Taking VItal Signs Routine 02/03/2024 2:00 EST Temperature Oral 37.2 DegC Heart Rate Monitored 77 bpm Respiratory Rate 26 br/min HI Systolic Blood Pressure Non-Invasive 157 mmHg HI Diastolic Blood Pressure Non-Invasive 61 mmHg Mean Arterial Pressure (NBP) 84 mmHg Reason For Taking VItal Signs Routine 02/03/2024 1:30 EST Heart Rate Monitored 80 bpm Systolic Blood Pressure Non-Invasive 136 mmHg Diastolic Blood Pressure Non-Invasive 64 mmHg Mean Arterial Pressure (NBP) 83 mmHg 02/03/2024 1:00 EST Heart Rate Monitored 76 bpm Systolic Blood Pressure Non-Invasive 144 mmHg HI Diastolic Blood Pressure Non-Invasive 59 mmHg LOW Mean Arterial Pressure (NBP) 78 mmHg 02/03/2024 0:49 EST Peripheral Pulse Rate 76 bpm Respiratory Rate 28 br/min HI 02/03/2024 0:00 EST Temperature Oral 37.8 DegC HI Heart Rate Monitored 86 bpm Respiratory Rate 25 br/min HI Systolic Blood Pressure Non-Invasive 155 mmHg HI Diastolic Blood Pressure Non-Invasive 56 mmHg LOW Mean Arterial Pressure (NBP) 79 mmHg Reason For Taking VItal Signs Routine Vital Signs (last 24 hrs) Last Charted Temp Oral37.1 DegC (FEB 03 07:31) Heart Rate [id number] bpm (FEB 03 09:37) [id number] mmHg (FEB 03 09:37) DBPL 54 mmHg (FEB 03 09:37) Pain assessment: Pain Assessment 02/04/2024 9:37 EST Primary Pain Intensity 3 Primary Pain Non-Pharma Intervention Rest, Repositioning Primary Pain Nonverbal Response Appears restful Pain Scale Type Behavioral pain scale 02/04/2024 7:57 EST Primary Pain Location Abdomen Primary Pain Intensity 7 Primary Pain Pharma Intervention Medication Primary Pain Nonverbal Response Facial grimace Pain Scale Type Behavioral pain scale 02/04/2024 7:31 EST Primary Pain Location Abdomen Primary Pain Intensity 7 Primary Pain Non-Pharma Intervention Rest, Repositioning Primary Pain Nonverbal Response Facial grimace Pain Scale Type Behavioral pain scale 02/04/2024 5:32 EST Primary Pain Intensity 3 Primary Pain Nonverbal Response Appears restful Pain Scale Type Behavioral pain scale 02/04/2024 3:42 EST Primary Pain Intensity 3 Primary Pain Nonverbal Response Appears restful Pain Scale Type Behavioral pain scale 02/04/2024 2:29 EST Pain Scale Assessment Behavioral pain scale Primary Pain Location Abdomen Primary Pain Intensity 3 02/04/2024 1:32 EST Primary Pain Intensity 3 Primary Pain Nonverbal Response Appears restful Pain Scale Type Behavioral pain scale 02/03/2024 23:08 EST Primary Pain Intensity 3 Primary Pain Nonverbal Response Appears restful Pain Scale Type Behavioral pain scale 02/03/2024 21:17 EST Primary Pain Intensity 3 Primary Pain Nonverbal Response Appears restful Pain Scale Type Behavioral pain scale 02/03/2024 19:38 EST Primary Pain Intensity 7 02/03/2024 19:36 EST Primary Pain Intensity 7 Primary Pain Nonverbal Response Facial grimace Pain Scale Type Behavioral pain scale 02/03/2024 17:32 EST Primary Pain Intensity 3 Primary Pain Nonverbal Response Appears restful Pain Scale Type Behavioral pain scale 02/03/2024 15:45 EST Primary Pain Intensity 3 Primary Pain Nonverbal Response Appears restful Pain Scale Type Behavioral pain scale 02/03/2024 14:24 EST Pain Scale Assessment Behavioral pain scale Primary Pain Location Generalized Primary Pain Intensity 3 02/03/2024 14:23 EST Primary Pain Location Generalized Primary Pain Intensity 3 Primary Pain Non-Pharma Intervention Rest, Repositioning Primary Pain Nonverbal Response Appears restful Pain Scale Type Behavioral pain scale 02/03/2024 13:24 EST Primary Pain Intensity 8 02/03/2024 11:05 EST Primary Pain Location Generalized Primary Pain Intensity 3 Primary Pain Non-Pharma Intervention Rest, Repositioning Primary Pain Nonverbal Response Appears restful Pain Scale Type Behavioral pain scale 02/03/2024 9:15 EST Primary Pain Location Generalized Primary Pain Intensity 3 Primary Pain Non-Pharma Intervention Rest, Repositioning Primary Pain Nonverbal Response Nods No Pain Scale Type Behavioral pain scale 02/03/2024 7:32 EST Primary Pain Location Generalized Primary Pain Intensity 3 Primary Pain Non-Pharma Intervention Rest, Repositioning Primary Pain Nonverbal Response Nods No Pain Scale Type Behavioral pain scale 02/03/2024 5:19 EST Primary Pain Location Generalized Primary Pain Intensity 3 Primary Pain Non-Pharma Intervention Rest, Repositioning Primary Pain Nonverbal Response Nods No Pain Scale Type Behavioral pain scale 02/03/2024 3:48 EST Primary Pain Location Generalized Primary Pain Intensity 3 Primary Pain Non-Pharma Intervention Rest, Repositioning Primary Pain Nonverbal Response Nods No Pain Scale Type Behavioral pain scale 02/03/2024 2:00 EST Primary Pain Intensity 3 Primary Pain Nonverbal Response Nods No Pain Scale Type Behavioral pain scale 02/03/2024 0:00 EST Primary Pain Intensity 3 Primary Pain Nonverbal Response Nods No Pain Scale Type Behavioral pain scale . General: intubated sedated . Airway: Unable to examine: Patient intubated. Dentition Evaluation: unable to asse s. Respiratory: diminished bases . Neurologic: intrubated sedated . Review / Management Results review: Labs (Last four charted values) WBC 8.0(FEB 03)7.6(FEB 02)9.1(FEB 01)10.7(JAN 31) Hgb L 10.7(FEB 03)L 10.8(FEB 02)L 10.4(FEB 01)L 10.8(JAN 31) Hct L 32.0(FEB 03)L 31.8(FEB 02)L 31.4(FEB 01)L 32.2(JAN 31) Plt 371(FEB 03)307(FEB 02)271(FEB 01)252(JAN 31) Na 144(FEB 03)144(FEB 02)H 147(FEB 01)H 148(FEB 01) K 3.9(FEB 03)3.5(FEB 02)L 3.4(FEB 01)L 2.9(JAN 31) CO2 24(FEB 03)26(FEB 02)24(FEB 01)26(JAN 31) Cl 109(FEB 03)109(FEB 02)H 113(FEB 01)H 116(JAN 31) Cr H 1.75(FEB 03)H 1.66(FEB 02)H 1.80(FEB 01)H 1.91(JAN 31) BUN H 73.0(FEB 03)H 63.0(FEB 02)H 78.0(FEB 01)H 80.0(JAN 31) Glucose H 126(FEB 03)H 150(FEB 02)H 229(FEB 01)H 202(JAN 31) Mg 2.0(FEB 03)1.9(FEB 02)1.8(FEB 01)1.9(JAN 29) Phos H 5.5(FEB 03)4.4(FEB 02)4.0(FEB 01)3.8(JAN 29) Ca C 6.7(FEB 03)L 7.3(FEB 02)C 6.6(FEB 01)L 7.0(JAN 31) PT 11.7(JAN 28)10.6(JAN 25)12.0(JAN 22)12.7(JAN 20) INR 1.0(JAN 28)0.9(JAN 25)1.0(JAN 22)1.1(JAN 20) PTT H 35.9(JAN 22)29.9(JAN 20) Total CK H 240(JAN 28)H 597(JAN 25) , Lab results 02/04/2024 9:37 EST Heart Rate Monitored 80 bpm Respiratory Rate 27 br/min HI Systolic Blood Pressure Non-Invasive 121 mmHg Diastolic Blood Pressure Non-Invasive 54 mmHg LOW Mean Arterial Pressure (NBP) 72 mmHg Reason For Taking VItal Signs Routine Oral Care ICU Done Primary Pain Intensity 3 Primary Pain Non-Pharma Intervention Rest, Repositioning Primary Pain Nonverbal Response Appears restful Pain Scale Type Behavioral pain scale Monitor Alarms On and Limits Checked Nail Bed Color [place] Capillary Refill < 2 seconds Heart Sounds ICU S1S2 Heart Rhythm Regular Radial Pulse, Left 2+ Normal Radial Pulse, Right 2+ Normal Cardiac Rhythm Sinus rhythm Monitoring Lead II, V1/MCL1 Alarms On and Functional Yes Respirations Unlabored Respiratory Pattern Regular Respiratory Pattern Detailed Vented Patient Airway Status Patent with support Breath Sounds Auscultated Anterior only All Lobes Breath Sounds Clear, Diminished Suction Method Oral Suction Device Y[place]auer Sputum Amount Scant Sputum Color Clear Sputum Consistency Thin Ventilator Mode (PSV) Pressure Support Ventilation Tidal Volume, Delivered 0.500 L Positive End Expiratory Pressure 5 cmH20 FiO2 40 % Vent FiO2 40 % Resuscitation Bag Available Yes Vent Alarms On and Functional Yes Oxygen Therapy Ventilator Oxygen Saturation 98 % Cuffed endotracheal tube 8.0 02/03/2024 Endotracheal Tube Activity: Assessed Endotracheal Tube Placement: Oral, right ET Tube Insertion cm [place] at Lip: 24 cm Endotracheal Tube Position Confirmation: Breath sounds Endotracheal Tube Status: Patent, Secure, manufactured tube alfredo Endotracheal Tube Care: Oral care Abdomen Description Rounded Abdomen Palpation Semi-firm Bowel Continence No bowel movement Bowel Sounds All Quadrants Present Nasogastric (NG) Nostril, left Gastrointestinal Tube Activity: Assessed Enteral Tube Insertion cm [place] at Nare: 78 cm GI Tube Method of Drainage: Clamped Gastrointestinal Tube Site Condition: No complications Urinary Elimination Urinary catheter draining Urinary Elimination Devices Indwelling catheter Urethral Indwelling/Continuous 16 Fr 01/21/2024 Urinary Catheter Activity: Assessed Urinary Catheter Site Condition: No complications Skin Description Normal for ethnicity Mucous Membrane Description Moist Skin Color General Usual for ethnicity Abdomen Anterior Wound Status: Unchanged Abdomen Left Lateral Wound Status: Unchanged Abdomen Right Multiple scattered Wound Status: Unchanged Continuous IV Infusions prn Forearm Left 02/01/2024 20 gauge Peripheral IV Activity: Assessed Peripheral IV Site Condition: No complications Peripheral IV Equipment: PRN Adaptor Forearm Right 02/01/2024 18 gauge Peripheral IV Activity: Assessed Peripheral IV Site Condition: No complications Peripheral IV Equipment: PRN Adaptor Neurological Language Intubated or other physical barrier Neurological Symptoms Weakness Extremity Movement Equal Characteristics of Communication Unable to speak, due to vent Characteristics of Speech Unable to assess Facial Symmetry Symmetric Level of Consciousness Alert GALILEA Yes Strength All Extremities Weak Left Upper Extremity Sensation Intact Right Upper Extremity Sensation Intact Left Lower Extremity Sensation Intact Right Lower Extremity Sensation Intact CN V Facial Sensation Corneal reflex present CN IX, X Swallowing, Gag Reflex Gag reflex present Affect/Behavior Impulsive Orientation Follows simple commands Soft limb holders (Cloth) Wrist, bilateral Restraint Technique: Non Violent Restraint Restraint Activity Type: Continue restraint, same episode Behavior Requiring Non Violent Restraint Attempts to remove medical management devices Type of Medical Devices: Monitoring equipment, Tubes/drains, IV/arterial access, Airway management equipment Rationale for Restraint: Attempting to remove devices, despite current restraints Range of Motion: Repositioned Restraint Skin Assessment: Skin intact, Pulses intact Restraint Nutrition/Hydration: NPO Restraint Hygiene/Elimination: Urinary catheter Other Standard Safety: ID band check Bed Standard Safety: Bed alert on, Bed in low position, Upper/Half-length side rails up, Wheels locked, HOB elevated Restraint DC Readiness Attempts: Enhanced observation, Environmental changes Restraint DC Intervention Status: Intervention attempted, not successful Right lateral 16 Micron[place] Chest Tube Activity: Assess Chest Tube Connectivity: Water-Seal gravity Chest Tube Water Seal Chamber Desc: Absence of Bubbling Chest Tube Interventions: Clamps at bedside Chest Tube Drainage Description: Straw colored Chest Tube Dressing Condition: Clean, Dry, Intact Chest Tube Dressing: Occlusive dressing BMAT Existing Patient Condition/Safety Strict bedrest Orientation Assessment Unable to evaluate Positioning Repositioned left side Activity Status ADL Resting Beds/Devices low air loss bed Assistive Equipment boot(s) on, elevated on pillows Activity Assistance Maximum assistance Sequential Compression Device right knee high applied/on Antiembolism Stocking On/Re-applied bilateral knee high NPO Status Maintained Oral Care Oral care protocol Standard Safety ID band on, Safety level maintained High Risk Safety Room check performed Demonstrates Correct Call Light Use No Degrees Head of Bed Elevated 30 02/04/2024 9:00 EST Nephrology Progress Note Progress Note 02/04/2024 8:56 EST Discharge To, Anticipated Other: LTAC Anticipated Discharge Date 02/07/2024 Transition Planning Note Transition Planning Ongoing Assessment 02/04/2024 8:15 EST Urethral Indwelling/Continuous 16 Fr 01/21/2024 Urinary Catheter Site Condition: No complications Urinary Catheter Care Completed: Yes CHG Preoperative Wash/Wipe Day of procedure Lorenza Care Maximum assistance 02/04/2024 8:02 EST ceftriaxone 2 gram(s) gram(s) 02/04/2024 8:00 EST insulin isophane Not Done: Patient NPO (Not Done) 02/04/2024 7:57 EST Apical Heart Rate 90 bpm Primary Pain Location Abdomen Primary Pain Intensity 7 Primary Pain Pharma Intervention Medication Primary Pain Nonverbal Response Facial grimace Pain Scale Type Behavioral pain scale acetaminophen-hydrocodone 2 tab(s) tab(s) amLODIPine 10 mg mg chlorhexidine topical 15 mL mL famotidine 20 mg mg metoprolol 25 mg mg ocular lubricant 1 mendy mendy ocular lubricant 1 drop(s) drop(s) 02/04/2024 7:45 EST Patient Airway Status Patent with support Cuffed endotracheal tube 8.0 02/03/2024 Endotracheal Tube Activity: Assessed Endotracheal Tube Placement: Oral, right ET Tube Insertion cm [place] at Lip: 24 cm Endotracheal Tube Position Confirmation: Breath sounds Endotracheal Tube Cuff Pressure Method: Minimum occlusion volume Endotracheal Tube Status: Patent, Secure, manufactured tube alfredo Endotracheal Tube Care: Repositioned 02/04/2024 7:43 EST Heart Rate Monitored 88 bpm Breath Sounds Auscultated Anterior and posterior All Lobes Breath Sounds Clear, Diminished Ventilator Mode (PSV) Pressure Support Ventilation Positive End Expiratory Pressure 5 cmH20 Pressure Support 5 cmH20 FiO2 40 % Tube Compensation On Vent FiO2 40 % Respiratory Rate Total 27 br/min HI Minute Volume 14 L/min Tidal Volume, Exhaled 0.503 L Vent Alarms On and Functional Yes Vent Alarm Apnea 20 second(s) Vent Alarm High Pressure 40 cmH20 High Tidal Volume 0.9 Vent Alarm High Rate 40 br/min Vent Alarm Low Minute Volume 3 L/min Vent Alarm High Minute Volume 18 L/min Oxygen Saturation 93 % 02/04/2024 7:42 EST Weaning Negative Inspiratory Force -22 cmH20 Weaning Respiratory Rate 25 br/min Weaning Rapid Shallow Breathing Index 47 Weaning Tidal Volume 0.5 L Weaning Minute Volume 13 L/min Weaning Vital Capacity 0.8 L Spontaneous Breathing Trial Initiated 02/04/2024 7:31 EST Blood Glucose, Capillary 122 mg/dL HI Blood Glucose Testing Reason Routine Temperature Oral 37.1 DegC Heart Rate Monitored 86 bpm Respiratory Rate 27 br/min HI Systolic Blood Pressure Non-Invasive 137 mmHg Diastolic Blood Pressure Non-Invasive 50 mmHg Mean Arterial Pressure (NBP) 74 mmHg Reason For Taking VItal Signs Routine Oral Care ICU Done Eye Care Done Primary Pain Location Abdomen Primary Pain Intensity 7 Primary Pain Non-Pharma Intervention Rest, Repositioning Primary Pain Nonverbal Response Facial grimace Pain Scale Type Behavioral pain scale Monitor Alarms On and Limits Checked Nail Bed Color [place] Capillary Refill < 2 seconds Heart Sounds ICU S1S2 Heart Rhythm Regular Dorsalis Pedis Pulse, Left 1+ Thready Dorsalis Pedis Pulse, Right 1+ Thready Posttibial Pulse, Left 1+ Thready Posttibial Pulse, Right 1+ Thready Radial Pulse, Left 2+ Normal Radial Pulse, Right 2+ Normal Generalized Edema Ratin+ mild/4mm Hand edema Bilateral Edema Ratin+ mild/4mm Cardiac Rhythm Sinus rhythm Monitoring Lead II, V1/MCL1 Alarms On and Functional Yes Heart Rate Alarm Set At - Low 50 Heart Rate Alarm Set At - High 120 NSBP Alarm Low 90 NSBP Alarm High 160 HI Respirations Unlabored Respiratory Pattern Regular Respiratory Pattern Detailed Vented Patient Airway Status Patent with support Breath Sounds Auscultated Anterior only All Lobes Breath Sounds Clear, Diminished Ventilator Mode (A/C) Assist/Control Ventilation Ventilator Frequency, Mandatory 24 br/min Tidal Volume, Delivered 0.500 L Positive End Expiratory Pressure 5 cmH20 FiO2 40 % Vent FiO2 45 % Tidal Volume, Exhaled 0.528 L Resuscitation Bag Available Yes Vent Alarms On and Functional Yes Oxygen Therapy Ventilator Oxygen Saturation 93 % Cuffed endotracheal tube 8.0 02/03/2024 Endotracheal Tube Activity: Assessed Endotracheal Tube Placement: Oral, mid ET Tube Insertion cm [place] at Lip: 24 cm Endotracheal Tube Position Confirmation: Breath sounds Endotracheal Tube Status: Patent, Secure, manufactured tube alfredo Endotracheal Tube Care: Oral care Abdomen Description Rounded Abdomen Palpation Soft Bowel Continence No bowel movement Bowel Sounds All Quadrants Present Nasogastric (NG) Nostril, left Gastrointestinal Tube Activity: Assessed Enteral Tube Insertion cm [place] at Nare: 78 cm GI Tube Method of Drainage: Clamped Gastrointestinal Tube Site Condition: No complications Urinary Elimination Urinary catheter draining Urinary Elimination Devices Indwelling catheter Urethral Indwelling/Continuous 16 Fr 01/21/2024 Urinary Catheter Indication: ICU Patient-Hemodynamic instability Urinary Catheter Activity: Assessed Urinary Catheter Secured: Securement device on Urinary Catheter Drainage System: Dependent drainage bag Urinary Catheter Site Condition: No complications Facial Movement Symmetric resting/crying Bilateral Upper Extremity Description Normal for ethnicity All Extremity Description Normal for ethnicity Skin Temperature Warm Skin Description Normal for ethnicity Skin Integrity Not intact Skin Turgor Non-Elastic Mucous Membrane Color [place] Mucous Membrane Description Moist Skin Color General Usual for ethnicity Skin Moisture General Dry Abdomen Anterior Skin Abnormality Type: Surgical incision Incision, Wound Dressing/Activity: Assessed Incision, Wound Dressing Assessment: Clean, Dry, Intact Incision, Wound Dressing: Vacuum assisted closure Wound Drainage Device: Negative pressure wound system Negative Pressure Wound SettinmmHg Neg Pressure Wound Therapy Dressing: Black Sponge Wound Status: Unchanged Abdomen Left Lateral Skin Abnormality Type: Tear Incision, Wound Dressing/Activity: Assessed Incision, Wound Dressing Assessment: Clean, Dry, Intact Incision, Wound Dressing: Hydrocolloid (Duoderm) Wound Exudate Amount: Scant Wound Exudate Type: Sanguineous Wound Exudate Odor: None Wound Status: Unchanged Abdomen Right Multiple scattered Skin Abnormality Type: Procedure site Incision, Wound Dressing/Activity: Assessed Incision, Wound Dressing Assessment: Clean, Dry, Intact Incision, Wound Dressing: ABD dressing pad Wound Exudate Amount: Scant Wound Exudate Type: Serous Wound Status: Unchanged Continuous IV Infusions prn Forearm Left 02/01/2024 20 gauge Peripheral IV Activity: Assessed Peripheral IV Dressing Condition: Clean, Dry, Intact Peripheral IV Dressing Activity: Transparent dressing Peripheral IV Line Status/Patency: Flushes easily Peripheral IV Site Condition: No complications Peripheral IV Equipment: PRN Adaptor Forearm Right 02/01/2024 18 gauge Peripheral IV Activity: Assessed Peripheral IV Dressing Condition: Clean, Dry, Intact Peripheral IV Dressing Activity: Transparent dressing Peripheral IV Line Status/Patency: Flushes easily Peripheral IV Site Condition: No complications Peripheral IV Equipment: PRN Adaptor Neurological Language Intubated or other physical barrier Neurological Symptoms Weakness Gait Unable to assess Extremity Movement Equal Characteristics of Communication Unable to speak, due to vent Characteristics of Speech Unable to assess Facial Symmetry Symmetric Level of Consciousness Alert Eye Opening Response [place] Spontaneously Best Motor Response Nathan Obeys simple commands Best Verbal Response Nathan None [place] Coma Score 11 GALILEA Yes Left Pupil Description Regular Right Pupil Description Regular Left Pupil Reaction Brisk Right Pupil Reaction Brisk Pupil Size, Left 3 mm Pupil Size, Right 3 mm Strength All Extremities Weak Left Upper Extremity Sensation Intact Right Upper Extremity Sensation Intact Left Lower Extremity Sensation Intact Right Lower Extremity Sensation Intact CN V Facial Sensation Corneal reflex present CN VII Facial Expression and Symmetry Facial movement symmetrical CN IX, X Swallowing, Gag Reflex Gag reflex present Affect/Behavior Impulsive Orientation Follows simple commands Soft limb holders (Cloth) Wrist, bilateral Restraint Technique: Non Violent Restraint Restraint Activity Type: Continue restraint, same episode Behavior Requiring Non Violent Restraint Attempts to remove medical management devices Type of Medical Devices: Monitoring equipment, Tubes/drains, IV/arterial access, Airway management equipment Rationale for Restraint: Attempting to remove devices, despite current restraints Range of Motion: Repositioned Restraint Skin Assessment: Skin intact, Pulses intact Restraint Nutrition/Hydration: NPO Restraint Hygiene/Elimination: Urinary catheter Other Standard Safety: ID band check Bed Standard Safety: Bed alert on, Bed in low position, Upper/Half-length side rails up, Wheels locked, HOB elevated Restraint DC Readiness Attempts: Enhanced observation, Environmental changes Restraint DC Intervention Status: Intervention attempted, not successful Right lateral 16 [place]ron[place] Chest Tube Activity: Assess Chest Tube Connectivity: Water-Seal gravity Chest Tube Water Seal Chamber Desc: Absence of Bubbling Chest Tube Interventions: Clamps at bedside Chest Tube Drainage Description: Straw colored Chest Tube Dressing Condition: Clean, Dry, Intact Chest Tube Dressing: Occlusive dressing BMAT Existing Patient Condition/Safety Strict bedrest Orientation Assessment Unable to evaluate Positioning Repositioned right side Activity Status ADL Resting Beds/Devices low air loss bed Assistive Equipment boot(s) on, elevated on pillows Activity Assistance Maximum assistance Sequential Compression Device right knee high applied/on Antiembolism Stocking On/Re-applied bilateral knee high NPO Status Maintained Oral Care Oral care protocol Standard Safety ID band on, Safety level maintained High Risk Safety Room check performed Special Call Device Unable to use call device Demonstrates Correct Call Light Use No Degrees Head of Bed Elevated 30 Oral Intake 0 mL Stool Count 0 EA 02/04/2024 7:06 EST Ventilator Activity On 02/04/2024 6:46 EST albuterol-ipratropium 3 mL mL budesonide 0.5 mg mg 02/04/2024 6:45 EST Peripheral Pulse Rate 81 bpm Respiratory Rate 24 br/min HI Respirations Unlabored Breath Sounds Auscultated Anterior only All Lobes Breath Sounds Clear, Diminished Patient Effort Good Patient Participation in Treatment Cooperative Aerosol Delivery Device Small volume nebulizer Aerosol Treatment Route Inline Cough and Deep Breathe Done Spontaneous Cough Yes Cough Strong Sputum Amount Small Sputum Color Cream Sputum Consistency Thin FiO2 40 % Oxygen Saturation 96 % Respiratory Treatment Charge Aerosol treatment Level of Consciousness Alert 02/04/2024 6:11 EST calcium gluconate 1,000 mg mg Sodium Chloride 0.9% 50 mL mL 02/04/2024 6:00 EST Heart Rate Monitored 73 bpm Systolic Blood Pressure Non-Invasive 122 mmHg Diastolic (more content not included)... [id number] Note Date of Service 02/03/24 Reason for Consultation Admission From: Other: [facility] Consult to Skin Team Nurse (Skin Team Nurse to see) - Ordered -- 02/03/24 8:18:00 EST, Wound Vac, Attempt to apply a wound VAC to midline incision, patient does have retention sutures.Wound VAC suction -75 mmHg Skin Team Findings Vitals and Measurements T: 37.1 C (Oral) TMIN: 36.6 C (Oral) TMAX: 37.8 C (Oral) HR: 76 (Monitored) RR: 22 BP: 130/54 SpO2:97% Pressure Area Details ------Incision/Wound------ Abdomen Anterior - Incision, Wound Cleansing: Cleaned with normal saline Abdomen Anterior - Incision, Wound Dressing Assessment: Clean, Dry, Intact Abdomen Anterior - Incision, Wound Dressing/Activity: Changed Abdomen Anterior - Incision, Wound Dressing: Vacuum assisted closure Abdomen Anterior - Incision, Wound Surrounding Tissue: Normal, Denuded, Edematous, Induration Abdomen Anterior - Incision, Wound Topical Agent: medihoney Abdomen Anterior - Neg Pressure Wound Therapy Dressing: Black Sponge Abdomen Anterior - Negative Pressure Wound SettinmmHg Abdomen Anterior - Skin Abnormality Color: Brown, Red, White, Yellow Abdomen Anterior - Skin Abnormality Pattern: Depressed Abdomen Anterior - Skin Abnormality Type: Surgical incision Abdomen Anterior - Wound Associated Pain: With dressing change Abdomen Anterior - Wound Bed Tissue Type: Granulation, Necrotic tissue, slough, Other: Fascia 20% Abdomen Anterior - Wound Drainage Device: Negative pressure wound system Abdomen Anterior - Wound Edge: Unattached to wound bed: undermining 4OCLOCK: 4.8 cm & 8 OCLOCK:1.8 cm Abdomen Anterior - Wound Exudate Amount: Moderate Abdomen Anterior - Wound Exudate Odor: None Abdomen Anterior - Wound Exudate Type: Seropurulent Abdomen Anterior - Wound Percent Granulated: 50 % Abdomen Anterior - Wound Percent Necrotic Tissue Slough: 30 % Abdomen Left Lateral - Incision, Wound Cleansing: Cleaned with normal saline Abdomen Left Lateral - Incision, Wound Dressing Assessment: Clean, Dry, Intact Abdomen Left Lateral - Incision, Wound Dressing/Activity: Dressing applied Abdomen Left Lateral - Incision, Wound Dressing: Hydrocolloid (Duoderm), Silver Impregnated Dressing (Aquacel Ag) Abdomen Left Lateral - Incision, Wound Surrounding Tissue: Erythema, Edematous, Induration Abdomen Left Lateral - Skin Abnormality Color: Red, Yellow Abdomen Left Lateral - Skin Abnormality Pattern: Scattered (3 areas possible medical adhesive related injuries) Abdomen Left Lateral - Skin Abnormality Type: Non-pressure ulcer Abdomen Left Lateral - Wound Bed Tissue Type: Granulation, Epithelialization, Necrotic tissue, slough Abdomen Left Lateral - Wound Exudate Amount: Moderate Abdomen Left Lateral - Wound Exudate Odor: None Abdomen Left Lateral - Wound Exudate Type: Serous Abdomen Right Multiple scattered - Incision, Wound Dressing Assessment: Loose Abdomen Right Multiple scattered - Incision, Wound Dressing/Activity: Assessed Abdomen Right Multiple scattered - Incision, Wound Dressing: ABD dressing pad ------Incision/Wound Measurements------ Abdomen Anterior - Incision, Wound Depth: 3.8 cm Abdomen Anterior - Incision, Wound Length: 23 cm Abdomen Anterior - Incision, Wound Width: 13 cm Assessments and Recommendations ------Assessments------ Current Skin/Wound Interventions: Hospital bed, Low air loss mattress, Bariatric bed, Turn and position system, Turn and reposition every 2 hours Present For Wound Observation: Nurse ------Recommendations------ Recommended Skin/Wound Interventions: Low air loss mattress, Bariatric bed, Seat cushion, Turn and position system, Turn and reposition every 2 hours, Consult Dietitian, Proposed orders sent to physician, Other: Wound vac applied & recommended orders, skin team to change MWF Education Individuals Taught: Patient Learning Readiness: critical condition Barriers to Learning: Acuity of illness Teaching Method: Explanation Problem List/Past Medical History Ongoing DM type 2, goal HbA1c < 7.5% Hernia centeral/midline, ventricle (large) Hernia, umbilical History of basal cell carcinoma (BCC) of skin, nose History of COVID-19 History of ventral hernia HTN, goal below 140/90 Hyperlipidemia LDL goal <100 Hypothyroidism in adult Increased BMI Increased BMI (body mass index) Laceration of skin of right hand Medicare annual wellness visit, subsequent Non-smoker Risk and functional assessment Screening for abdominal aortic aneurysm Screening for cardiovascular condition Screening for colorectal cancer Screening for glaucoma Screening for prostate cancer Vitamin D deficiency Historical Basal cell carcinoma of nose COVID-19 virus infection Overweight Digitally Signed by CLAUDIA Brown on 02/03/2024 01:54 PM [id number] Note ORIGINAL EXAMINATION: ONE XRAY VIEW OF THE CHEST TECHNIQUE: One view AP upright COMPARISON: Same day chest HISTORY: ORDERING SYSTEM PROVIDED HISTORY: Reason for Exam: intubation/ ET tube placement FINDINGS: Support devices: An endotracheal tube terminates 6.3 cm above the colton. An enteric tube extends below the left diaphragm. A right chest tube tip terminates over the right medial base. Cardiomediastinal: The heart is stable in size and configuration. Lungs: Redemonstrated is right lower lobe airspace disease without interval change. Unchanged small bilateral pleural effusions. Mild left lower lobe subsegmental atelectasis. Pneumothorax: None Osseous: No acute osseous pathology. IMPRESSION: 1. Unchanged right lower lobe airspace disease. 2. Unchanged small bilateral pleural effusions. 3. Support devices as above. 4. Mild left lower lobe subsegmental atelectasis. Interpreted by: Efrain Chairez MD Preliminary Report By: Efrain Chairez MD Electronically signed By Efrain Chairez MD Dictated Date: 02/03/2024 11:10:17 AM Prelim Date: 02/03/2024 11:12:30 AM Sign Date: 02/03/2024 11:12:30 AM Ordering Provider: [facility]11-04-2024 Procedure note Date of Service 02/03/2024 Procedure Name Endotracheal intubation Consent Emergent consent was implied Indication Hypoxemia with excessive secretions following extubation Location SICU 2708 Procedural Sedation Propofol 100, fentanyl 50 Technique Patient was desaturating into the low 80s, high 70s. Decision was made to reintubate. He was sedated with a total of 100 of propofol and 50 of fentanyl. He was placed in the sniffing position and wasbeing bagged. The glide scope was placed in the posterior oropharyngeal cavity with excellent view of the vocal cords. A #8 tube was advanced to the cords with excellent visualization. These traversed the cords with ease and was secured at 26 cm at the lip. There was excellent color change on CO2 detection with bilateral breath sounds auscultated. Saturations gradually increased. The tube was secured. Findings Normal-appearing cords, some secretions noted Complications None immediate Estimated Blood Loss 0 mL Total Time 25 minutes Assessment/Plan 1. Status post failed extubation with hypoxemia requiring reintubation Follow Up/Recommendation 1. Follow-up results of chest x-ray for endotracheal tube placement Digitally Signed by ELIZABETH GUERRA MD on 02/03/2024 10:35 AM [id number] Note ORIGINAL EXAMINATION: ONE XRAY VIEW OF THE CHEST 02/03/2024 6:21 am COMPARISON: 02/02/2024 HISTORY: ORDERING SYSTEM PROVIDED HISTORY: Reason for Exam: abn breath sounds FINDINGS: Chest tube noted at the right lung base. Endotracheal tube is in stable position. Enteric tube extends below the field of view. Small bilateral effusions. Stable heart size. Mild central vascular prominence. Hazy airspace disease at the right lung base. No pneumothorax. IMPRESSION: No interval change. Interpreted by: Santiago Bolivar MD Preliminary Report By: Santiago Bolivar MD Electronically signed By Santiago Bolivar MD Dictated Date: 02/03/2024 6:36:03 AM Prelim Date: 02/03/2024 6:37:03 AM Sign Date: 02/03/2024 6:37:03 AM Ordering Provider: [facility]11-03-2024 Note* Exam Date Time Procedure Performing Provider Status 02/02/24 8:12 AM VL Venous US/Doppler Both Legs(for DVT) Auth (Verified) [facility] 11-03-2024 Note ORIGINAL EXAMINATION: ONE XRAY VIEW OF THE CHEST 02/02/2024 7:05 am COMPARISON: None. HISTORY: ORDERING SYSTEM PROVIDED HISTORY: Reason for Exam: abn breath sounds FINDINGS: Support lines and tubes appear stable. Bilateral airspace disease is unchanged. Heart size stable. Suspected small bilateral effusions. No definite pneumothorax identified. IMPRESSION: No interval change. Interpreted by: Santiago Bolivar MD Preliminary Report By: Santiago Bolivar MD Electronically signed By Santiago Bolivar MD Dictated Date: 02/02/2024 7:10:55 AM Prelim Date: 02/02/2024 7:11:19 AM Sign Date: 02/02/2024 7:11:19 AM Ordering Provider: [facility]11-03-2024 NoteSinus rhythm Prolonged QT interval Electronic Signature: ROXANNE GREEN MD 02/03/2024 05:59:07[facility] 10-31-2024 Note ORIGINAL EXAMINATION: ONE XRAY VIEW OF THE CHEST 01/30/2024 5:38 pm COMPARISON: 01/30/2024 6:02 a.m. HISTORY: ORDERING SYSTEM PROVIDED HISTORY: Reason for Exam: hypoxia FINDINGS: Endotracheal tube demonstrates tip 4.5 cm above colton. Enteric feeding tube is present, extending to the expected location of stomach. There is stable right basilar chest tube. There are small bibasilar pleural effusions and subsegmental consolidation/atelectasis. There is hypoinflation with accentuation of the cardiomediastinal silhouette and bronchovascular markings. There is no pulmonary vascular congestion. There is no pneumothorax. Osseous structures demonstrate degenerative changes. IMPRESSION: 1. Stable right basilar chest tube. No pneumothorax. 2. Small bibasilar pleural effusions and subsegmental consolidation/atelectasis. Interpreted by: Ed Doss Preliminary Report By: Ed Doss Electronically signed By Ed Doss Dictated Date: 01/30/2024 5:44:42 PM Prelim Date: 01/30/2024 5:49:25 PM Sign Date: 01/30/2024 5:49:25 PM Ordering Provider: EMILEE [facility]10-31-2024 Note ORIGINAL EXAMINATION: ONE XRAY VIEW OF THE CHEST 01/30/2024 6:20 am COMPARISON: None. HISTORY: ORDERING SYSTEM PROVIDED HISTORY: Reason for Exam: shortness of breath FINDINGS: Endotracheal tube is 5.1 cm above the colton. Chest tube overlies the right lower lung. Left internal jugular central venous catheter tube terminates in the SVC. Endotracheal tube extends below diaphragm out of field of view. Hazy airspace disease at the right lung base with small right effusion. No definite pneumothorax. IMPRESSION: Small right effusion with hazy airspace disease at the right lung base. Interpreted by: Santiago Bolivar MD Preliminary Report By: Santiago Bolivar MD Electronically signed By Santiago Bolivar MD Dictated Date: 01/30/2024 6:27:39 AM Prelim Date: 01/30/2024 6:29:31 AM Sign Date: 01/30/2024 6:29:31 AM Ordering Provider: SHERON [facility]10-30-2024 Note ORIGINAL EXAMINATION: ONE XRAY VIEW OF THE CHEST 01/29/2024 7:29 am COMPARISON: None. HISTORY: ORDERING SYSTEM PROVIDED HISTORY: Reason for Exam: ETT advancement FINDINGS: Endotracheal tube is 3.9 cm above the colton. Chest tube overlies the right lower lung. Left internal jugular central venous catheter tube tip terminates in the SVC. Enteric tube extends below the diaphragm out of field of view. Hazy airspace disease is noted at the lung bases. No pneumothorax. Heart size is normal. Atherosclerotic calcification of the aorta is noted. IMPRESSION: Hazy airspace disease at the lung bases. Endotracheal tube in appropriate position. Interpreted by: Santiago Bolivar MD Preliminary Report By: Santiago Bolivar MD Electronically signed By Santiago Bolivar MD Dictated Date: 01/29/2024 7:59:13 AM Prelim Date: 01/29/2024 8:00:09 AM Sign Date: 01/29/2024 8:00:09 AM Ordering Provider: SUZANNA [facility]10-30-2024 Note ORIGINAL EXAMINATION: ONE XRAY VIEW OF THE CHEST01/29/2024 5:42 am COMPARISON: Chest radiographs 01/27/2024 and 01/26/2024. HISTORY: ORDERING SYSTEM PROVIDED HISTORY: Reason for Exam: abn breath sounds FINDINGS: Endotracheal tip terminates approximately 7.2 cm above the colton. An enteric tube is visualized coursing below the diaphragm off the field of view. Left internal jugular central venous catheter tip projects over the superior vena cava. Right chest tube in stable position. Cardiomediastinal contours are stable. Atherosclerotic aorta. Right lower lung zone airspace opacities are similar to previous exam. No focal left lung consolidation. Small right pleural effusion. The left costophrenic angle is not fully visualized. No radiographically visible pneumothorax. The osseous structures are essentially unchanged. IMPRESSION: Endotracheal tube terminates approximately 7.2 cm above the colton. Small right pleural effusion and right lower lung zone airspace opacities are not significant changed from previous exam. I have personally reviewed the images of this examination and agree with the resident's findings and interpretation. Interpreted by: Santiago Bolivar MD Preliminary Report By: James Akhtar Electronically signed By Santiago Bolivar MD Dictated Date: 01/29/2024 5:50:14 AM Prelim Date: 01/29/2024 5:58:33 AM Sign Date: 01/29/2024 7:34:27 AM Ordering Provider: [facility]10-29-2024 Anesthesiology Consult note Patient: CORINNE CORREA Age: 73 years Sex: Male : 1950 Associated Diagnoses: None Author: SANDER WHITE MD Postoperative Information Post Operative Info: Patient location. Post op day: Post Anesthesia Care Unit. Notes: SICU. Assessment Postanesthesia assessment Vitals: Vital signs from flowsheet : Vital Signs 01/28/2024 13:50 EDT Respiratory Rate - Anes 0 br/min br/min 01/28/2024 13:45 EDT Heart Rate Monitored 91 bpm Respiratory Rate 28 br/min HI Respiratory Rate - Anes 0 br/min br/min Systolic Blood Pressure Non-Invasive 152 mmHg HI Diastolic Blood Pressure Non-Invasive 58 mmHg LOW Mean Arterial Pressure (NBP) 82 mmHg Reason For Taking VItal Signs Procedure post-care 01/28/2024 13:37 EDT Systolic Blood Pressure Non-Invasive 157 mmHg mmHg Diastolic Blood Pressure Non-Invasive 61 mmHg mmHg 01/28/2024 13:35 EDT Heart Rate Monitored 90 bpm bpm Respiratory Rate - Anes 26 br/min br/min Systolic Blood Pressure Non-Invasive 150 mmHg mmHg Diastolic Blood Pressure Non-Invasive 63 mmHg mmHg 01/28/2024 13:32 EDT Systolic Blood Pressure Non-Invasive 135 mmHg mmHg Diastolic Blood Pressure Non-Invasive 66 mmHg mmHg 01/28/2024 13:30 EDT Heart Rate Monitored 84 bpm bpm Respiratory Rate - Anes 18 br/min br/min Systolic Blood Pressure Non-Invasive 125 mmHg mmHg Diastolic Blood Pressure Non-Invasive 62 mmHg mmHg 01/28/2024 13:26 EDT Systolic Blood Pressure Non-Invasive 116 mmHg mmHg Diastolic Blood Pressure Non-Invasive 58 mmHg mmHg 01/28/2024 13:25 EDT Temperature (Route Not Specified) 38.45 DegC DegC Heart Rate Monitored 83 bpm bpm Respiratory Rate - Anes 18 br/min br/min 01/28/2024 13:24 EDT Systolic Blood Pressure Non-Invasive 118 mmHg mmHg Diastolic Blood Pressure Non-Invasive 59 mmHg mmHg 01/28/2024 13:22 EDT Systolic Blood Pressure Non-Invasive 114 mmHg mmHg Diastolic Blood Pressure Non-Invasive 60 mmHg mmHg 01/28/2024 13:20 EDT Temperature (Route Not Specified) 38.46 DegC DegC Heart Rate Monitored 80 bpm bpm Respiratory Rate - Anes 18 br/min br/min Systolic Blood Pressure Non-Invasive 124 mmHg mmHg Diastolic Blood Pressure Non-Invasive 55 mmHg mmHg 01/28/2024 13:18 EDT Systolic Blood Pressure Non-Invasive 126 mmHg mmHg Diastolic Blood Pressure Non-Invasive 64 mmHg mmHg 01/28/2024 13:16 EDT Systolic Blood Pressure Non-Invasive 113 mmHg mmHg Diastolic Blood Pressure Non-Invasive 56 mmHg mmHg 01/28/2024 13:15 EDT Temperature (Route Not Specified) 38.48 DegC DegC Heart Rate Monitored 70 bpm bpm Respiratory Rate - Anes 18 br/min br/min 01/28/2024 13:14 EDT Systolic Blood Pressure Non-Invasive 84 mmHg mmHg Diastolic Blood Pressure Non-Invasive 49 mmHg mmHg 01/28/2024 13:12 EDT Systolic Blood Pressure Non-Invasive 99 mmHg mmHg Diastolic Blood Pressure Non-Invasive 52 mmHg mmHg 01/28/2024 13:10 EDT Temperature (Route Not Specified) 38.48 DegC DegC Heart Rate Monitored 64 bpm bpm Respiratory Rate - Anes 18 br/min br/min Systolic Blood Pressure Non-Invasive 83 mmHg mmHg Diastolic Blood Pressure Non-Invasive 43 mmHg mmHg 01/28/2024 13:08 EDT Systolic Blood Pressure Non-Invasive 97 mmHg mmHg Diastolic Blood Pressure Non-Invasive 53 mmHg mmHg 01/28/2024 13:06 EDT Systolic Blood Pressure Non-Invasive 94 mmHg mmHg Diastolic Blood Pressure Non-Invasive 51 mmHg mmHg 01/28/2024 13:05 EDT Temperature (Route Not Specified) 38.48 DegC DegC Heart Rate Monitored 64 bpm bpm Respiratory Rate - Anes 18 br/min br/min 01/28/2024 13:04 EDT Systolic Blood Pressure Non-Invasive 78 mmHg mmHg Diastolic Blood Pressure Non-Invasive 46 mmHg mmHg 01/28/2024 13:02 EDT Systolic Blood Pressure Non-Invasive 92 mmHg mmHg Diastolic Blood Pressure Non-Invasive 49 mmHg mmHg 01/28/2024 13:00 EDT Temperature (Route Not Specified) 38.46 DegC DegC Heart Rate Monitored 65 bpm bpm Respiratory Rate - Anes 18 br/min br/min Systolic Blood Pressure Non-Invasive 80 mmHg mmHg Diastolic Blood Pressure Non-Invasive 47 mmHg mmHg 01/28/2024 12:58 EDT Systolic Blood Pressure Non-Invasive 97 mmHg mmHg Diastolic Blood Pressure Non-Invasive 52 mmHg mmHg 01/28/2024 12:56 EDT Systolic Blood Pressure Non-Invasive 83 mmHg mmHg Diastolic Blood Pressure Non-Invasive 43 mmHg mmHg 01/28/2024 12:55 EDT Temperature (Route Not Specified) 38.45 DegC DegC Heart Rate Monitored 67 bpm bpm Respiratory Rate - Anes 18 br/min br/min 01/28/2024 12:54 EDT Systolic Blood Pressure Non-Invasive 100 mmHg mmHg Diastolic Blood Pressure Non-Invasive 49 mmHg mmHg 01/28/2024 12:51 EDT Systolic Blood Pressure Non-Invasive 83 mmHg mmHg Diastolic Blood Pressure Non-Invasive 46 mmHg mmHg 01/28/2024 12:50 EDT Temperature (Route Not Specified) 38.45 DegC DegC Heart Rate Monitored 70 bpm bpm Respiratory Rate - Anes 18 br/min br/min 01/28/2024 12:48 EDT Systolic Blood Pressure Non-Invasive 85 mmHg mmHg Diastolic Blood Pressure Non-Invasive 42 mmHg mmHg 01/28/2024 12:45 EDT Temperature (Route Not Specified) 38.45 DegC DegC Heart Rate Monitored 73 bpm bpm Respiratory Rate - Anes 18 br/min br/min Systolic Blood Pressure Non-Invasive 89 mmHg mmHg Diastolic Blood Pressure Non-Invasive 43 mmHg mmHg 01/28/2024 12:42 EDT Systolic Blood Pressure Non-Invasive 88 mmHg mmHg Diastolic Blood Pressure Non-Invasive 47 mmHg mmHg 01/28/2024 12:40 EDT Temperature (Route Not Specified) 38.47 DegC DegC Heart Rate Monitored 80 bpm bpm Respiratory Rate - Anes 15 br/min br/min 01/28/2024 12:39 EDT Systolic Blood Pressure Non-Invasive 99 mmHg mmHg Diastolic Blood Pressure Non-Invasive 50 mmHg mmHg 01/28/2024 12:36 EDT Systolic Blood Pressure Non-Invasive 108 mmHg mmHg Diastolic Blood Pressure Non-Invasive 51 mmHg mmHg 01/28/2024 12:35 EDT Temperature (Route Not Specified) 38.49 DegC DegC Heart Rate Monitored 77 bpm bpm Respiratory Rate - Anes 13 br/min br/min 01/28/2024 12:33 EDT Systolic Blood Pressure Non-Invasive 126 mmHg mmHg Diastolic Blood Pressure Non-Invasive 54 mmHg mmHg 01/28/2024 12:30 EDT Temperature (Route Not Specified) 38.45 DegC DegC Heart Rate Monitored 83 bpm bpm Respiratory Rate - Anes 10 br/min br/min Systolic Blood Pressure Non-Invasive 134 mmHg mmHg Diastolic Blood Pressure Non-Invasive 54 mmHg mmHg 01/28/2024 12:27 EDT Systolic Blood Pressure Non-Invasive 129 mmHg mmHg Diastolic Blood Pressure Non-Invasive 65 mmHg mmHg 01/28/2024 12:25 EDT Temperature (Route Not Specified) 38.68 DegC DegC Heart Rate Monitored 72 bpm bpm Respiratory Rate - Anes 10 br/min br/min 01/28/2024 12:24 EDT Systolic Blood Pressure Non-Invasive 98 mmHg mmHg Diastolic Blood Pressure Non-Invasive 54 mmHg mmHg 01/28/2024 12:21 EDT Systolic Blood Pressure Non-Invasive 103 mmHg mmHg Diastolic Blood Pressure Non-Invasive 43 mmHg mmHg 01/28/2024 12:20 EDT Temperature (Route Not Specified) 38.7 DegC DegC Heart Rate Monitored 71 bpm bpm Respiratory Rate - Anes 16 br/min br/min 01/28/2024 12:18 EDT Systolic Blood Pressure Non-Invasive 86 mmHg mmHg Diastolic Blood Pressure Non-Invasive 47 mmHg mmHg 01/28/2024 12:15 EDT Temperature (Route Not Specified) 38.7 DegC DegC Heart Rate Monitored 72 bpm bpm Respiratory Rate - Anes 26 br/min br/min Systolic Blood Pressure Non-Invasive 94 mmHg mmHg Diastolic Blood Pressure Non-Invasive 50 mmHg mmHg 01/28/2024 12:12 EDT Systolic Blood Pressure Non-Invasive 109 mmHg mmHg Diastolic Blood Pressure Non-Invasive 50 mmHg mmHg 01/28/2024 12:10 EDT Heart Rate Monitored 73 bpm bpm Respiratory Rate - Anes 22 br/min br/min 01/28/2024 12:09 EDT Systolic Blood Pressure Non-Invasive 104 mmHg mmHg Diastolic Blood Pressure Non-Invasive 57 mmHg mmHg 01/28/2024 12:06 EDT Systolic Blood Pressure Non-Invasive 140 mmHg mmHg Diastolic Blood Pressure Non-Invasive 51 mmHg mmHg 01/28/2024 12:05 EDT Heart Rate Monitored 80 bpm bpm Respiratory Rate - Anes 26 br/min br/min 01/28/2024 11:45 EDT Heart Rate Monitored 77 bpm 01/28/2024 11:41 EDT Temperature Oral 38.7 DegC >HHI Heart Rate Monitored 77 bpm Respiratory Rate 27 br/min HI Systolic Blood Pressure Non-Invasive 163 mmHg HI Diastolic Blood Pressure Non-Invasive 47 mmHg Mean Arterial Pressure (NBP) 76 mmHg Reason For Taking VItal Signs Routine 01/28/2024 9:33 EDT Heart Rate Monitored 75 bpm Respiratory Rate 27 br/min HI Systolic Blood Pressure Non-Invasive 158 mmHg HI Diastolic Blood Pressure Non-Invasive 48 mmHg Mean Arterial Pressure (NBP) 75 mmHg Reason For Taking VItal Signs Routine 01/28/2024 7:34 EDT Heart Rate Monitored 61 bpm Systolic Blood Pressure Non-Invasive 112 mmHg Diastolic Blood Pressure Non-Invasive 50 mmHg Mean Arterial Pressure (NBP) 66 mmHg 01/28/2024 7:03 EDT Temperature Oral 36.8 DegC Apical Heart Rate 71 bpm Heart Rate Monitored 71 bpm Respiratory Rate 29 br/min HI Systolic Blood Pressure Non-Invasive 113 mmHg Diastolic Blood Pressure Non-Invasive 50 mmHg Mean Arterial Pressure (NBP) 67 mmHg Reason For Taking VItal Signs Routine 01/28/2024 5:34 EDT Heart Rate Monitored 75 bpm Respiratory Rate 25 br/min HI Systolic Blood Pressure Non-Invasive 148 mmHg HI Diastolic Blood Pressure Non-Invasive 50 mmHg Mean Arterial Pressure (NBP) 75 mmHg Reason For Taking VItal Signs Routine 01/28/2024 3:30 EDT Temperature Oral 36.8 DegC Heart Rate Monitored 66 bpm Respiratory Rate 28 br/min HI Systolic Blood Pressure Non-Invasive 102 mmHg Diastolic Blood Pressure Non-Invasive 48 mmHg Mean Arterial Pressure (NBP) 63 mmHg Reason For Taking VItal Signs Routine 01/28/2024 3:00 EDT Apical Heart Rate Not Done: Not Appropriate at this Time (Not Done) 01/28/2024 1:30 EDT Heart Rate Monitored 71 bpm Respiratory Rate 24 br/min HI Systolic Blood Pressure Non-Invasive 115 mmHg Diastolic Blood Pressure Non-Invasive 48 mmHg Mean Arterial Pressure (NBP) 65 mmHg Reason For Taking VItal Signs Routine 01/27/2024 23:30 EDT Temperature Oral 36.7 DegC Heart Rate Monitored 68 bpm Respiratory Rate 24 br/min HI Systolic Blood Pressure Non-Invasive 98 mmHg Diastolic Blood Pressure Non-Invasive 45 mmHg Mean Arterial Pressure (NBP) 62 mmHg Reason For Taking VItal Signs Routine 01/27/2024 22:30 EDT Heart Rate Monitored 70 bpm Systolic Blood Pressure Non-Invasive 123 mmHg Diastolic Blood Pressure Non-Invasive 55 mmHg LOW Mean Arterial Pressure (NBP) 74 mmHg Reason For Taking VItal Signs Routine 01/27/2024 21:40 EDT Heart Rate Monitored 67 bpm Respiratory Rate 20 br/min Respiratory Rate 22 br/min HI Systolic Blood Pressure Non-Invasive 107 mmHg Diastolic Blood Pressure Non-Invasive 51 mmHg LOW Mean Arterial Pressure (NBP) 67 mmHg Reason For Taking VItal Signs Routine Reason For Taking VItal Signs Routine 01/27/2024 21:00 EDT Apical Heart Rate Not Done: Bradycardia (Not Done) 01/27/2024 20:30 EDT Temperature Oral 37.8 DegC HI Heart Rate Monitored 74 bpm Respiratory Rate 23 br/min HI Systolic Blood Pressure Non-Invasive 126 mmHg Diastolic Blood Pressure Non-Invasive 54 mmHg LOW Mean Arterial Pressure (NBP) 74 mmHg Reason For Taking VItal Signs Routine 01/27/2024 20:00 EDT Heart Rate Monitored 69 bpm Systolic Blood Pressure Non-Invasive 107 mmHg Diastolic Blood Pressure Non-Invasive 52 mmHg LOW Mean Arterial Pressure (NBP) 70 mmHg 01/27/2024 19:49 EDT Heart Rate Monitored 69 bpm Systolic Blood Pressure Non-Invasive 121 mmHg Diastolic Blood Pressure Non-Invasive 52 mmHg LOW Mean Arterial Pressure (NBP) 70 mmHg 01/27/2024 19:45 EDT Heart Rate Monitored 67 bpm Systolic Blood Pressure Non-Invasive 92 mmHg Diastolic Blood Pressure Non-Invasive 47 mmHg Mean Arterial Pressure (NBP) 61 mmHg 01/27/2024 19:30 EDT Heart Rate Monitored 74 bpm Systolic Blood Pressure Non-Invasive 94 mmHg Diastolic Blood Pressure Non-Invasive 55 mmHg LOW Mean Arterial Pressure (NBP) 67 mmHg 01/27/2024 19:15 EDT Heart Rate Monitored 66 bpm Systolic Blood Pressure Non-Invasive 103 mmHg Diastolic Blood Pressure Non-Invasive 48 mmHg Mean Arterial Pressure (NBP) 63 mmHg 01/27/2024 19:00 EDT Heart Rate Monitored 67 bpm Systolic Blood Pressure Non-Invasive 92 mmHg Diastolic Blood Pressure Non-Invasive 45 mmHg Mean Arterial Pressure (NBP) 59 mmHg 01/27/2024 18:53 EDT Heart Rate Monitored 73 bpm Systolic Blood Pressure Non-Invasive 116 mmHg Diastolic Blood Pressure Non-Invasive 52 mmHg LOW Mean Arterial Pressure (NBP) 70 mmHg 01/27/2024 18:45 EDT Heart Rate Monitored 68 bpm Systolic Blood Pressure Non-Invasive 94 mmHg Diastolic Blood Pressure Non-Invasive 45 mmHg Mean Arterial Pressure (NBP) 59 mmHg 01/27/2024 18:30 EDT Heart Rate Monitored 75 bpm Systolic Blood Pressure Non-Invasive 117 mmHg Diastolic Blood Pressure Non-Invasive 52 mmHg LOW Mean Arterial Pressure (NBP) 71 mmHg 01/27/2024 18:15 EDT Heart Rate Monitored 72 bpm Systolic Blood Pressure Non-Invasive 126 mmHg Diastolic Blood Pressure Non-Invasive 55 mmHg LOW Mean Arterial Pressure (NBP) 74 mmHg 01/27/2024 18:00 EDT Heart Rate Monitored 72 bpm Respiratory Rate 26 br/min HI Systolic Blood Pressure Non-Invasive 121 mmHg Diastolic Blood Pressure Non-Invasive 57 mmHg LOW Mean Arterial Pressure (NBP) 75 mmHg Reason For Taking VItal Signs Routine 01/27/2024 17:45 EDT Heart Rate Monitored 70 bpm Systolic Blood Pressure Non-Invasive 118 mmHg Diastolic Blood Pressure Non-Invasive 50 mmHg Mean Arterial Pressure (NBP) 69 mmHg 01/27/2024 17:30 EDT Heart Rate Monitored 71 bpm Systolic Blood Pressure Non-Invasive 136 mmHg Diastolic Blood Pressure Non-Invasive 53 mmHg LOW Mean Arterial Pressure (NBP) 74 mmHg 01/27/2024 17:15 EDT Heart Rate Monitored 76 bpm Systolic Blood Pressure Non-Invasive 139 mmHg Diastolic Blood Pressure Non-Invasive 55 mmHg LOW Mean Arterial Pressure (NBP) 75 mmHg 01/27/2024 17:00 EDT Heart Rate Monitored 73 bpm Systolic Blood Pressure Non-Invasive 137 mmHg Diastolic Blood Pressure Non-Invasive 55 mmHg LOW Mean Arterial Pressure (NBP) 74 mmHg 01/27/2024 16:45 EDT Heart Rate Monitored 70 bpm Systolic Blood Pressure Non-Invasive 112 mmHg Diastolic Blood Pressure Non-Invasive 48 mmHg Mean Arterial Pressure (NBP) 64 mmHg 01/27/2024 16:30 EDT Heart Rate Monitored 69 bpm Systolic Blood Pressure Non-Invasive 136 mmHg Diastolic Blood Pressure Non-Invasive 56 mmHg LOW Mean Arterial Pressure (NBP) 77 mmHg 01/27/2024 16:15 EDT Apical Heart Rate 81 bpm Heart Rate Monitored 83 bpm Systolic Blood Pressure Non-Invasive 142 mmHg HI Diastolic Blood Pressure Non-Invasive 51 mmHg LOW Mean Arterial Pressure (NBP) 76 mmHg 01/27/2024 16:00 EDT Heart Rate Monitored 87 bpm Systolic Blood Pressure Non-Invasive 139 mmHg Diastolic Blood Pressure Non-Invasive 51 mmHg LOW Mean Arterial Pressure (NBP) 76 mmHg 01/27/2024 15:57 EDT Temperature Oral 36.7 DegC Heart Rate Monitored 85 bpm Respiratory Rate 27 br/min HI Systolic Blood Pressure Non-Invasive 134 mmHg Diastolic Blood Pressure Non-Invasive 50 mmHg Mean Arterial Pressure (NBP) 74 mmHg Reason For Taking VItal Signs Routine 01/27/2024 15:45 EDT Heart Rate Monitored 85 bpm Systolic Blood Pressure Non-Invasive 138 mmHg Diastolic Blood Pressure Non-Invasive 58 mmHg LOW Mean Arterial Pressure (NBP) 80 mmHg 01/27/2024 15:40 EDT Heart Rate Monitored 81 bpm Systolic Blood Pressure Non-Invasive 145 mmHg HI Diastolic Blood Pressure Non-Invasive 56 mmHg LOW Mean Arterial Pressure (NBP) 80 mmHg Reason For Taking VItal Signs In Error (In Error) 01/27/2024 15:36 EDT Heart Rate Monitored 81 bpm Systolic Blood Pressure Non-Invasive 142 mmHg HI Diastolic Blood Pressure Non-Invasive 55 mmHg LOW Mean Arterial Pressure (NBP) 79 mmHg 01/27/2024 15:15 EDT Heart Rate Monitored 80 bpm Systolic Blood Pressure Non-Invasive 146 mmHg HI Diastolic Blood Pressure Non-Invasive 59 mmHg LOW Mean Arterial Pressure (NBP) 82 mmHg 01/27/2024 14:58 EDT Heart Rate Monitored 76 bpm Systolic Blood Pressure Non-Invasive 116 mmHg Diastolic Blood Pressure Non-Invasive 54 mmHg LOW Mean Arterial Pressure (NBP) 71 mmHg 01/27/2024 14:46 EDT Heart Rate Monitored 74 bpm Systolic Blood Pressure Non-Invasive 127 mmHg Diastolic Blood Pressure Non-Invasive 54 mmHg LOW Mean Arterial Pressure (NBP) 73 mmHg 01/27/2024 14:38 EDT Heart Rate Monitored 72 bpm Respiratory Rate 24 br/min HI Systolic Blood Pressure Non-Invasive 123 mmHg Diastolic Blood Pressure Non-Invasive 55 mmHg LOW Mean Arterial Pressure (NBP) 74 mmHg Reason For Taking VItal Signs In Error (In Error) 01/27/2024 13:28 EDT Heart Rate Monitored 71 bpm Systolic Blood Pressure Non-Invasive 95 mmHg Diastolic Blood Pressure Non-Invasive 45 mmHg Mean Arterial Pressure (NBP) 59 mmHg 01/27/2024 13:22 EDT Heart Rate Monitored 77 bpm Respiratory Rate 24 br/min HI Systolic Blood Pressure Non-Invasive 101 mmHg Diastolic Blood Pressure Non-Invasive 47 mmHg Mean Arterial Pressure (NBP) 63 mmHg Reason For Taking VItal Signs Routine 01/27/2024 13:15 EDT Heart Rate Monitored 70 bpm Systolic Blood Pressure Non-Invasive 94 mmHg Diastolic Blood Pressure Non-Invasive 50 mmHg Mean Arterial Pressure (NBP) 63 mmHg 01/27/2024 13:10 EDT Heart Rate Monitored 76 bpm Systolic Blood Pressure Non-Invasive 84 mmHg LOW Diastolic Blood Pressure Non-Invasive 44 mmHg Mean Arterial Pressure (NBP) 57 mmHg 01/27/2024 12:52 EDT Heart Rate Monitored 67 bpm Systolic Blood Pressure Non-Invasive 115 mmHg Diastolic Blood Pressure Non-Invasive 76 mmHg Mean Arterial Pressure (NBP) 87 mmHg 01/27/2024 12:30 EDT Heart Rate Monitored 64 bpm Systolic Blood Pressure Non-Invasive 113 mmHg Diastolic Blood Pressure Non-Invasive 52 mmHg LOW Mean Arterial Pressure (NBP) 70 mmHg 01/27/2024 12:00 EDT Heart Rate Monitored 62 bpm Systolic Blood Pressure Non-Invasive 110 mmHg Diastolic Blood Pressure Non-Invasive 55 mmHg LOW Mean Arterial Pressure (NBP) 71 mmHg 01/27/2024 11:45 EDT Heart Rate Monitored 60 bpm Systolic Blood Pressure Non-Invasive 114 mmHg Diastolic Blood Pressure Non-Invasive 55 mmHg LOW Mean Arterial Pressure (NBP) 72 mmHg 01/27/2024 11:30 EDT Heart Rate Monitored 58 bpm LOW Systolic Blood Pressure Non-Invasive 114 mmHg Diastolic Blood Pressure Non-Invasive 57 mmHg LOW Mean Arterial Pressure (NBP) 74 mmHg 01/27/2024 11:21 EDT Temperature Oral 36.5 DegC Heart Rate Monitored 56 bpm LOW Respiratory Rate 25 br/min HI Systolic Blood Pressure Non-Invasive 112 mmHg Diastolic Blood Pressure Non-Invasive 56 mmHg LOW Mean Arterial Pressure (NBP) 73 mmHg Reason For Taking VItal Signs Routine 01/27/2024 11:15 EDT Heart Rate Monitored 56 bpm LOW Systolic Blood Pressure Non-Invasive 111 mmHg Diastolic Blood Pressure Non-Invasive 57 mmHg LOW Mean Arterial Pressure (NBP) 73 mmHg 01/27/2024 11:06 EDT Heart Rate Monitored 56 bpm LOW Systolic Blood Pressure Non-Invasive 114 mmHg Diastolic Blood Pressure Non-Invasive 56 mmHg LOW Mean Arterial Pressure (NBP) 73 mmHg 01/27/2024 11:01 EDT Heart Rate Monitored 55 bpm LOW Systolic Blood Pressure Non-Invasive 93 mmHg Diastolic Blood Pressure Non-Invasive 54 mmHg LOW Mean Arterial Pressure (NBP) 66 mmHg 01/27/2024 10:51 EDT Heart Rate Monitored 57 bpm LOW Systolic Blood Pressure Non-Invasive 67 mmHg LOW Diastolic Blood Pressure Non-Invasive 39 mmHg Mean Arterial Pressure (NBP) 49 mmHg 01/27/2024 10:45 EDT Heart Rate Monitored 59 bpm LOW Systolic Blood Pressure Non-Invasive 67 mmHg LOW Diastolic Blood Pressure Non-Invasive 46 mmHg Mean Arterial Pressure (NBP) 53 mmHg 01/27/2024 10:08 EDT Heart Rate Monitored 60 bpm Systolic Blood Pressure Non-Invasive 104 mmHg Diastolic Blood Pressure Non-Invasive 61 mmHg Mean Arterial Pressure (NBP) 74 mmHg 01/27/2024 9:50 EDT Apical Heart Rate 68 bpm Heart Rate Monitored 66 bpm Respiratory Rate 24 br/min HI Systolic Blood Pressure Non-Invasive 108 mmHg Diastolic Blood Pressure Non-Invasive 54 mmHg LOW Mean Arterial Pressure (NBP) 70 mmHg Reason For Taking VItal Signs Routine 01/27/2024 8:45 EDT Heart Rate Monitored 70 bpm Systolic Blood Pressure Non-Invasive 102 mmHg Diastolic Blood Pressure Non-Invasive 51 mmHg LOW Mean Arterial Pressure (NBP) 66 mmHg 01/27/2024 8:32 EDT Heart Rate Monitored 72 bpm Systolic Blood Pressure Non-Invasive 128 mmHg Diastolic Blood Pressure Non-Invasive 55 mmHg LOW Mean Arterial Pressure (NBP) 76 mmHg 01/27/2024 8:15 EDT Heart Rate Monitored 65 bpm Systolic Blood Pressure Non-Invasive 96 mmHg Diastolic Blood Pressure Non-Invasive 48 mmHg Mean Arterial Pressure (NBP) 63 mmHg 01/27/2024 8:01 EDT Heart Rate Monitored 79 bpm Systolic Blood Pressure Non-Invasive 134 mmHg Diastolic Blood Pressure Non-Invasive 70 mmHg Mean Arterial Pressure (NBP) 89 mmHg 01/27/2024 7:15 EDT Temperature Oral 36.9 DegC Heart Rate Monitored 77 bpm Respiratory Rate 24 br/min HI Systolic Blood Pressure Non-Invasive 136 mmHg Diastolic Blood Pressure Non-Invasive 63 mmHg Mean Arterial Pressure (NBP) 83 mmHg Reason For Taking VItal Signs Routine 01/27/2024 7:01 EDT Heart Rate Monitored 61 bpm Systolic Blood Pressure Non-Invasive 123 mmHg Diastolic Blood Pressure Non-Invasive 61 mmHg Mean Arterial Pressure (NBP) 77 mmHg 01/27/2024 6:45 EDT Heart Rate Monitored 72 bpm Systolic Blood Pressure Non-Invasive 135 mmHg Diastolic Blood Pressure Non-Invasive 66 mmHg Mean Arterial Pressure (NBP) 86 mmHg 01/27/2024 6:30 EDT Heart Rate Monitored 68 bpm Systolic Blood Pressure Non-Invasive 137 mmHg Diastolic Blood Pressure Non-Invasive 71 mmHg Mean Arterial Pressure (NBP) 87 mmHg 01/27/2024 6:15 EDT Heart Rate Monitored 58 bpm LOW Systolic Blood Pressure Non-Invasive 110 mmHg Diastolic Blood Pressure Non-Invasive 64 mmHg Mean Arterial Pressure (NBP) 77 mmHg 01/27/2024 6:09 EDT Heart Rate Monitored 68 bpm Systolic Blood Pressure Non-Invasive 102 mmHg Diastolic Blood Pressure Non-Invasive 57 mmHg LOW Mean Arterial Pressure (NBP) 71 mmHg 01/27/2024 6:00 EDT Heart Rate Monitored 62 bpm Systolic Blood Pressure Non-Invasive 69 mmHg LOW Diastolic Blood Pressure Non-Invasive 44 mmHg Mean Arterial Pressure (NBP) 52 mmHg 01/27/2024 5:45 EDT Heart Rate Monitored 59 bpm LOW Systolic Blood Pressure Non-Invasive 76 mmHg LOW Diastolic Blood Pressure Non-Invasive 44 mmHg Mean Arterial Pressure (NBP) 55 mmHg 01/27/2024 5:30 EDT Heart Rate Monitored 74 bpm Systolic Blood Pressure Non-Invasive 109 mmHg Diastolic Blood Pressure Non-Invasive 56 mmHg LOW Mean Arterial Pressure (NBP) 72 mmHg 01/27/2024 5:16 EDT Heart Rate Monitored 70 bpm Respiratory Rate 24 br/min HI Systolic Blood Pressure Non-Invasive 101 mmHg Diastolic Blood Pressure Non-Invasive 57 mmHg LOW Mean Arterial Pressure (NBP) 72 mmHg Reason For Taking VItal Signs Routine 01/27/2024 4:45 EDT Heart Rate Monitored 68 bpm Systolic Blood Pressure Non-Invasive 106 mmHg Diastolic Blood Pressure Non-Invasive 52 mmHg LOW Mean Arterial Pressure (NBP) 68 mmHg 01/27/2024 4:30 EDT Heart Rate Monitored 67 bpm Systolic Blood Pressure Non-Invasive 97 mmHg Diastolic Blood Pressure Non-Invasive 49 mmHg Mean Arterial Pressure (NBP) 64 mmHg 01/27/2024 4:29 EDT Heart Rate Monitored 68 bpm Respiratory Rate 25 br/min HI 01/27/2024 4:15 EDT Heart Rate Monitored 67 bpm Systolic Blood Pressure Non-Invasive 101 mmHg Diastolic Blood Pressure Non-Invasive 48 mmHg Mean Arterial Pressure (NBP) 64 mmHg 01/27/2024 4:00 EDT Heart Rate Monitored 66 bpm Systolic Blood Pressure Non-Invasive 95 mmHg Diastolic Blood Pressure Non-Invasive 44 mmHg Mean Arterial Pressure (NBP) 59 mmHg 01/27/2024 3:45 EDT Heart Rate Monitored 70 bpm Systolic Blood Pressure Non-Invasive 127 mmHg Diastolic Blood Pressure Non-Invasive 65 mmHg Mean Arterial Pressure (NBP) 83 mmHg 01/27/2024 3:35 EDT Temperature Oral 36.9 DegC Heart Rate Monitored 67 bpm Respiratory Rate 28 br/min HI Systolic Blood Pressure Non-Invasive 121 mmHg Diastolic Blood Pressure Non-Invasive 66 mmHg Mean Arterial Pressure (NBP) 81 mmHg Reason For Taking VItal Signs Routine 01/27/2024 3:19 EDT Apical Heart Rate Not Done: Not Appropriate at this Time (Not Done) 01/27/2024 3:10 EDT Heart Rate Monitored 65 bpm Systolic Blood Pressure Non-Invasive 95 mmHg Diastolic Blood Pressure Non-Invasive 51 mmHg LOW Mean Arterial Pressure (NBP) 65 mmHg 01/27/2024 2:50 EDT Heart Rate Monitored 71 bpm Respiratory Rate 28 br/min HI Systolic Blood Pressure Non-Invasive 106 mmHg Diastolic Blood Pressure Non-Invasive 79 mmHg Mean Arterial Pressure (NBP) 73 mmHg Reason For Taking VItal Signs Routine 01/27/2024 2:40 EDT Heart Rate Monitored 68 bpm Systolic Blood Pressure Non-Invasive 75 mmHg LOW Diastolic Blood Pressure Non-Invasive 46 mmHg Mean Arterial Pressure (NBP) 55 mmHg Reason For Taking VItal Signs Routine 01/27/2024 2:19 EDT Heart Rate Monitored 72 bpm Systolic Blood Pressure Non-Invasive 99 mmHg Diastolic Blood Pressure Non-Invasive 47 mmHg Mean Arterial Pressure (NBP) 63 mmHg Reason For Taking VItal Signs Routine 01/27/2024 1:30 EDT Heart Rate Monitored 75 bpm Systolic Blood Pressure Non-Invasive 99 mmHg Diastolic Blood Pressure Non-Invasive 56 mmHg LOW Mean Arterial Pressure (NBP) 69 mmHg Reason For Taking VItal Signs Routine 01/27/2024 1:16 EDT Heart Rate Monitored 77 bpm Respiratory Rate 29 br/min HI Systolic Blood Pressure Non-Invasive 116 mmHg Diastolic Blood Pressure Non-Invasive 55 mmHg LOW Mean Arterial Pressure (NBP) 71 mmHg Blood Pressure Method Automatic Blood Pressure Location Left arm Reason For Taking VItal Signs Routine 01/27/2024 0:50 EDT Heart Rate Monitored 83 bpm Systolic Blood Pressure Non-Invasive 138 mmHg Diastolic Blood Pressure Non-Invasive 64 mmHg Mean Arterial Pressure (NBP) 83 mmHg Reason For Taking VItal Signs Routine 01/27/2024 0:15 EDT Heart Rate Monitored 147 bpm HI Heart Rate Monitored 147 bpm HI Respiratory Rate 24 br/min HI Respiratory Rate 28 br/min HI Systolic Blood Pressure Invasive 82 mmHg LOW Diastolic Blood Pressure Invasive 78 mmHg Mean Arterial Pressure (Line) 79 mmHg Reason For Taking VItal Signs Routine 01/27/2024 0:00 EDT Heart Rate Monitored 145 bpm HI Respiratory Rate 24 br/min HI Systolic Blood Pressure Non-Invasive 145 mmHg HI Diastolic Blood Pressure Non-Invasive 87 mmHg Mean Arterial Pressure (NBP) 99 mmHg Blood Pressure Method Automatic Blood Pressure Location Left arm . Mental status: Intubated and sedated. Respiratory function: Stable on vent. Respiratory support: Ventilator per ICU management. CV function: Stable. Cardiovascular support: none. Pain: Satisfactory. Nausea status: Satisfactory. Postoperative hydration status: within normal limits. Notes: No follow-up care needed. No complications post-anesthesia., Report given to SICU personnel. Digitally Signed by SANDER WHITE MD on 01/28/2024 02:20 PM [id number] Anesthesiology Consult note Patient: CORINNE CORREA Age: 73 years Sex: Male : 1950 Associated Diagnoses: None Author: SANDER WHITE MD Preoperative Information greater than 8 hours Anesthesia history Patient's history: negative. Family's history: negative. Health Status Allergies: Allergic Reactions (All) NKA, Allergies (1) ActiveSeverityReaction NKANone Documented Current medications: (Selected) Inpatient Medications Ordered D10W 1,000 mL: at current rate if TPN is interrupted, Intravenous Dexmedetomidine for IV 400 mcg [0.2 mcg/kg/hr] + Sodium Chloride 0.9% intravenous solution 96 mL...: 6.36 mL/hr, Intravenous Dextrose: 25 g, 50 mL, IV Push, AsDirected, PRN: Low blood sugar Diuril IV Push syinge: 500 mg, IV Push (INT), Once HumuLIN R: sliding scale insulin, Subcutaneous, q4h, PRN: Protocol, glycemic control Insulin Regular for IV 100 unit(s) + NS Premix Diluent 100 mL: Sliding Scale Insulin, Intravenous Lopressor IV: 5 mg, 5 mL, IV Push, q6hr Norepinephrine for IV 8 mg [5 mcg/min] + NS PMX titrate 250 mL: 9.38 mL/hr, Intravenous Peridex 0.12% oral rinse liquid: 15 mL, Swish & Spit, QID Propofol for IV 1,000 mg [10 mcg/kg/min] + IV Premix Diluent titrate 100 mL: 7.32 mL/hr, Intravenous Protonix IV Push: 40 mg, IV Push, BIDAC Puralube ophth solution: 1 drop(s), Eyes, both, AsDirected, PRN: Protocol, eye care Puralube ophth solution: 1 drop(s), Eyes, both, q8h Puralube ophthalmic ointment: 1 mendy, Eyes, both, AsDirected, PRN: Protocol, eye care Puralube ophthalmic ointment: 1 mendy, Eyes, both, q8h Sublimaze: 50 mcg, 1 mL, IV Push, q15min, PRN: BPS/TELEGRAPH DISPATCHER TPN Standard Central 3 - 1 1,920 mL + Amino Acids (%) for TPN 6 % + Dextrose (%) for TPN 15 % + Lip...: 80 mL/hr, Intravenous Zosyn: 3.375 gram(s), 50 mL, 12.5 mL/hr, IV Piggyback, q8h heparin 5000 units/mL injection: 5,000 unit(s), 1 mL, Subcutaneous, q8h micafungin: 100 mg, 100 mL/hr, IV Piggyback, q24h Prescriptions Prescribed Farxiga 10 mg oral tablet: 10 mg, 1 tab(s), Oral, qDay, 90 tab(s), 3 Refill(s) MetFORMIN (Eqv-Glucophage XR) 500 mg oral tablet, EXTENDED RELEASE: 1,000 mg, 2 tab(s), Oral, BID, 360 tab(s), 2 Refill(s) Ozempic 4 mg/3 mL (1 mg dose) subcutaneous solution: 1 mg, Subcutaneous, qWeek, 9 mL, 1 Refill(s) amLODIPine 5 mg oral tablet: 5 mg, 1 tab(s), Oral, qDay, 90 tab(s), 3 Refill(s) atorvastatin 20 mg oral tablet: 20 mg, 1 tab(s), Oral, qDay, for 90 day(s), 90 tab(s), 1 Refill(s) levothyroxine 25 mcg (0.025 mg) oral tablet: 50 mcg, 2 tab(s), Oral, qDay, for 90 day(s), 180 tab(s), 1 Refill(s) losartan 100 mg oral tablet: 100 mg, 1 tab(s), Oral, qDay, for 90 day(s), 90 tab(s), 1 Refill(s) metoprolol succinate 25 mg oral TABLET extended release: 25 mg, 1 tab(s), Oral, qDay, for 90 day(s), Do not crush or chew (controlled release), 90 tab(s), 1 Refill(s) Documented Medications Documented HumaLOG Mix 50/50 KwikPen 3 mL PEN: 15 unit(s), Subcutaneous, BID, 3 mL, 0 Refill(s) Vitamin D (3) 45 units oral capsule: 0 Refill(s) Vitamin D with Minerals oral tablet: 1 tab(s), Oral, qDay, 30 tab(s), 0 Refill(s), Medications (20) Active Scheduled: (9) chlorhexidine topical 0.12% Liquid (60 mL) 15 mL, Swish & Spit, QID chlorothiazide 500 mg, IV Push (INT), Once heparin 5,000 units/mL (1 mL) vial 5,000 unit(s) 1 mL, Subcutaneous, q8h metoprolol 1 mg/mL (5mL) vial 5 mg 5 mL, IV Push, q6hr micafungin 100 mg, IV Piggyback, q24h ocular lubricant - Ointment 3.5 gram(s) 1 mendy, Eyes, both, q8h ocular lubricant preserved Soln 15 mL 1 drop(s), Eyes, both, q8h pantoprazole 40 mg VIAL 40 mg, IV Push, BIDAC piperacillin-tazobactam PMX 3.375 gram(s) 50 mL, IV Piggyback, q8h Continuous: (6) D10W 1,000 mL 1,000 mL, Intravenous dexmedetomidine 400 mcg [0.2 mcg/kg/hr] + Sodium Chloride 0.9% 96 mL 96 mL, Intravenous, 6.36 mL/hr insulin regular 100 unit(s) + NS Premix Diluent 100 mL 100 mL, Intravenous norepinephrine 8 mg [5 mcg/min] + NS Premix Diluent 250 mL 250 mL, Intravenous, 9.38 mL/hr propofol 1,000 mg [10 mcg/kg/min] + IV Premix Diluent 100 mL 100 mL, Intravenous, 7.32 mL/hr TPN 1,920 mL + amino acids in TPN 6 % + dextrose in TPN 15 % + lipids in TPN 3 % + trace elements i1,920 mL, Intravenous, 80 mL/hr PRN: (5) dextrose 50% Solution Disp syringe 50 mL 25 g 50 mL, IV Push, AsDirected fentaNYL 50 mcg/mL (2mL) ampule 50 mcg 1 mL, IV Push, q15min insulin regular human recombinant 100 units/ml (10 mL) Solution sliding scale insulin, Subcutaneous, q4h ocular lubricant - Ointment 3.5 gram(s) 1 mendy, Eyes, both, AsDirected ocular lubricant preserved Soln 15 mL 1 drop(s), Eyes, both, AsDirected Problem list: Medical Hypothyroidism in adult / SNOMED CT 38386923 / Confirmed HTN, goal below 140/90 / SNOMED CT 0844283174 / Confirmed Hyperlipidemia LDL goal <100 / SNOMED CT 85202559 / Confirmed Screening for prostate cancer / SNOMED CT 696248275 / Confirmed Vitamin D deficiency / SNOMED CT 74687114 / Confirmed DM type 2, goal HbA1c < 7.5% / SNOMED CT 384122006 / Confirmed Medicare annual wellness visit, subsequent / SNOMED CT 595214910 / Confirmed History of basal cell carcinoma (BCC) of skin, nose / SNOMED CT 9661766746 / Confirmed Increased BMI (body mass index) / SNOMED CT 48129368 / Confirmed History of COVID-19 / SNOMED CT 5689631388 / Confirmed Hernia centeral/midline, ventricle (large) / SNOMED CT 9639391789 / Confirmed History of ventral hernia / SNOMED CT 815511756 / Confirmed Screening for abdominal aortic aneurysm / SNOMED CT 491896761 / Confirmed Screening for cardiovascular condition / SNOMED CT 360788176 / Confirmed Screening for glaucoma / SNOMED CT 188617155 / Confirmed Screening for colorectal cancer / SNOMED CT 497510413 / Confirmed Non-smoker / SNOMED CT 13983047 / Confirmed Laceration of skin of right hand / SNOMED CT 0056275803 / Confirmed Increased BMI / SNOMED CT 03304863 / Confirmed Risk and functional assessment / SNOMED CT 840857863 / Confirmed Hernia, umbilical / SNOMED CT 5776887488 / Confirmed, Active Problems (21) DM type 2, goal HbA1c < 7.5% Hernia centeral/midline, ventricle (large) Hernia, umbilical History of basal cell carcinoma (BCC) of skin, nose History of COVID-19 History of ventral hernia HTN, goal below 140/90 Hyperlipidemia LDL goal <100 Hypothyroidism in adult Increased BMI Increased BMI (body mass index) Laceration of skin of right hand Medicare annual wellness visit, subsequent Non-smoker Risk and functional assessment Screening for abdominal aortic aneurysm Screening for cardiovascular condition Screening for colorectal cancer Screening for glaucoma Screening for prostate cancer Vitamin D deficiency Histories Past Medical History: Resolved Overweight ([id number]): Resolved. Basal cell carcinoma of nose ([id number]): Resolved. COVID-19 virus infection ([id number]): Resolved. Family History: Hypertension Mother Father Heart disease Father Stroke Sister Hodgkin disease Sister Procedure history: Laparotomy ([id number]) on 01/24/2024 at 73 Years. Comments: 01/28/2024 7:56 Mary Turner LPN Abdominal Laparotomy, EXPLORATORY LAPAROTOMY WITH APTHORA PLACEMENT. CHOLECYSTECTOMY. [facility] Cholecystectomy ([id number]) on 01/24/2024 at 73 Years. Comments: 01/28/2024 7:55 Mary Turner LPN CHOLECYSTECTOMY Laparotomy ([id number]) on 01/21/2024 at 73 Years. Comments: 01/23/2024 10:34 Mary Turner LPN ROBOTIC ASSISTED DIAGNOSTIC LAPAROSCOPY EXPLORATORY LAPAROTOMY; ABDOMINAL WASHOUT, EXTRACTION OF ABDOMINAL WALL MESH; DEBRIDEMENT OF ABDOMINAL WALL; PLACEMENT OF ABTHERA OPEN ABDOMINAL WOUND VAC. Hernia repair ([id number]) on 01/20/2024 at 73 Years. Comments: 01/20/2024 12:49 Mary Turner LPN ROBOTIC ASSISTED UMBILICAL HERNIA PREPERITONEAL REPAIR WITH MESH Colonoscopy ([id number]) on 09/29/2008 at 58 Years. Hernia ([id number]). Surgery ([id number]). Comments: 11/10/2020 14:07 Bernarda Finch LPN Right hand Surgery ([id number]). Comments: 11/10/2020 14:07 Bernarda Finch LPN Achilles tendon Social History: Social & Psychosocial Habits Alcohol 01/20/2024 Use: Current Type: Liquor Frequency: Daily Has alcohol use interfered with work or home life: No Comment: 2 shots every day - 01/20/2024 16:18 - Gudelia Sanderson RN Substance Abuse 01/20/2024 Use: Never Tobacco 01/20/2024 Tobacco Use: Former smoker, quit more Type: Cigarettes Number of years: 30 Home/Environment 01/20/2024 Living situation: Home/Independent Domestic Concerns None Lives In Multilevel home Spouse Name JESSICA Marital Status of Patient if Patient Independent Adult: Nutrition/Health 01/20/2024 Type of diet: Diabetic Caffeine intake amount: Pop Eating Difficulties None Physical Examination Vital Signs 01/28/2024 9:33 EDT Heart Rate Monitored 75 bpm Respiratory Rate 27 br/min HI Systolic Blood Pressure Non-Invasive 158 mmHg HI Diastolic Blood Pressure Non-Invasive 48 mmHg Mean Arterial Pressure (NBP) 75 mmHg Reason For Taking VItal Signs Routine 01/28/2024 7:34 EDT Heart Rate Monitored 61 bpm Systolic Blood Pressure Non-Invasive 112 mmHg Diastolic Blood Pressure Non-Invasive 50 mmHg Mean Arterial Pressure (NBP) 66 mmHg 01/28/2024 7:03 EDT Temperature Oral 36.8 DegC Apical Heart Rate 71 bpm Heart Rate Monitored 71 bpm Respiratory Rate 29 br/min HI Systolic Blood Pressure Non-Invasive 113 mmHg Diastolic Blood Pressure Non-Invasive 50 mmHg Mean Arterial Pressure (NBP) 67 mmHg Reason For Taking VItal Signs Routine 01/28/2024 5:34 EDT Heart Rate Monitored 75 bpm Respiratory Rate 25 br/min HI Systolic Blood Pressure Non-Invasive 148 mmHg HI Diastolic Blood Pressure Non-Invasive 50 mmHg Mean Arterial Pressure (NBP) 75 mmHg Reason For Taking VItal Signs Routine 01/28/2024 3:30 EDT Temperature Oral 36.8 DegC Heart Rate Monitored 66 bpm Respiratory Rate 28 br/min HI Systolic Blood Pressure Non-Invasive 102 mmHg Diastolic Blood Pressure Non-Invasive 48 mmHg Mean Arterial Pressure (NBP) 63 mmHg Reason For Taking VItal Signs Routine 01/28/2024 3:00 EDT Apical Heart Rate Not Done: Not Appropriate at this Time (Not Done) 01/28/2024 1:30 EDT Heart Rate Monitored 71 bpm Respiratory Rate 24 br/min HI Systolic Blood Pressure Non-Invasive 115 mmHg Diastolic Blood Pressure Non-Invasive 48 mmHg Mean Arterial Pressure (NBP) 65 mmHg Reason For Taking VItal Signs Routine 01/27/2024 23:30 EDT Temperature Oral 36.7 DegC Heart Rate Monitored 68 bpm Respiratory Rate 24 br/min HI Systolic Blood Pressure Non-Invasive 98 mmHg Diastolic Blood Pressure Non-Invasive 45 mmHg Mean Arterial Pressure (NBP) 62 mmHg Reason For Taking VItal Signs Routine 01/27/2024 22:30 EDT Heart Rate Monitored 70 bpm Systolic Blood Pressure Non-Invasive 123 mmHg Diastolic Blood Pressure Non-Invasive 55 mmHg LOW Mean Arterial Pressure (NBP) 74 mmHg Reason For Taking VItal Signs Routine 01/27/2024 21:40 EDT Heart Rate Monitored 67 bpm Respiratory Rate 20 br/min Respiratory Rate 22 br/min HI Systolic Blood Pressure Non-Invasive 107 mmHg Diastolic Blood Pressure Non-Invasive 51 mmHg LOW Mean Arterial Pressure (NBP) 67 mmHg Reason For Taking VItal Signs Routine Reason For Taking VItal Signs Routine 01/27/2024 21:00 EDT Apical Heart Rate Not Done: Bradycardia (Not Done) 01/27/2024 20:30 EDT Temperature Oral 37.8 DegC HI Heart Rate Monitored 74 bpm Respiratory Rate 23 br/min HI Systolic Blood Pressure Non-Invasive 126 mmHg Diastolic Blood Pressure Non-Invasive 54 mmHg LOW Mean Arterial Pressure (NBP) 74 mmHg Reason For Taking VItal Signs Routine 01/27/2024 20:00 EDT Heart Rate Monitored 69 bpm Systolic Blood Pressure Non-Invasive 107 mmHg Diastolic Blood Pressure Non-Invasive 52 mmHg LOW Mean Arterial Pressure (NBP) 70 mmHg 01/27/2024 19:49 EDT Heart Rate Monitored 69 bpm Systolic Blood Pressure Non-Invasive 121 mmHg Diastolic Blood Pressure Non-Invasive 52 mmHg LOW Mean Arterial Pressure (NBP) 70 mmHg 01/27/2024 19:45 EDT Heart Rate Monitored 67 bpm Systolic Blood Pressure Non-Invasive 92 mmHg Diastolic Blood Pressure Non-Invasive 47 mmHg Mean Arterial Pressure (NBP) 61 mmHg 01/27/2024 19:30 EDT Heart Rate Monitored 74 bpm Systolic Blood Pressure Non-Invasive 94 mmHg Diastolic Blood Pressure Non-Invasive 55 mmHg LOW Mean Arterial Pressure (NBP) 67 mmHg 01/27/2024 19:15 EDT Heart Rate Monitored 66 bpm Systolic Blood Pressure Non-Invasive 103 mmHg Diastolic Blood Pressure Non-Invasive 48 mmHg Mean Arterial Pressure (NBP) 63 mmHg 01/27/2024 19:00 EDT Heart Rate Monitored 67 bpm Systolic Blood Pressure Non-Invasive 92 mmHg Diastolic Blood Pressure Non-Invasive 45 mmHg Mean Arterial Pressure (NBP) 59 mmHg 01/27/2024 18:53 EDT Heart Rate Monitored 73 bpm Systolic Blood Pressure Non-Invasive 116 mmHg Diastolic Blood Pressure Non-Invasive 52 mmHg LOW Mean Arterial Pressure (NBP) 70 mmHg 01/27/2024 18:45 EDT Heart Rate Monitored 68 bpm Systolic Blood Pressure Non-Invasive 94 mmHg Diastolic Blood Pressure Non-Invasive 45 mmHg Mean Arterial Pressure (NBP) 59 mmHg 01/27/2024 18:30 EDT Heart Rate Monitored 75 bpm Systolic Blood Pressure Non-Invasive 117 mmHg Diastolic Blood Pressure Non-Invasive 52 mmHg LOW Mean Arterial Pressure (NBP) 71 mmHg 01/27/2024 18:15 EDT Heart Rate Monitored 72 bpm Systolic Blood Pressure Non-Invasive 126 mmHg Diastolic Blood Pressure Non-Invasive 55 mmHg LOW Mean Arterial Pressure (NBP) 74 mmHg 01/27/2024 18:00 EDT Heart Rate Monitored 72 bpm Respiratory Rate 26 br/min HI Systolic Blood Pressure Non-Invasive 121 mmHg Diastolic Blood Pressure Non-Invasive 57 mmHg LOW Mean Arterial Pressure (NBP) 75 mmHg Reason For Taking VItal Signs Routine 01/27/2024 17:45 EDT Heart Rate Monitored 70 bpm Systolic Blood Pressure Non-Invasive 118 mmHg Diastolic Blood Pressure Non-Invasive 50 mmHg Mean Arterial Pressure (NBP) 69 mmHg 01/27/2024 17:30 EDT Heart Rate Monitored 71 bpm Systolic Blood Pressure Non-Invasive 136 mmHg Diastolic Blood Pressure Non-Invasive 53 mmHg LOW Mean Arterial Pressure (NBP) 74 mmHg 01/27/2024 17:15 EDT Heart Rate Monitored 76 bpm Systolic Blood Pressure Non-Invasive 139 mmHg Diastolic Blood Pressure Non-Invasive 55 mmHg LOW Mean Arterial Pressure (NBP) 75 mmHg 01/27/2024 17:00 EDT Heart Rate Monitored 73 bpm Systolic Blood Pressure Non-Invasive 137 mmHg Diastolic Blood Pressure Non-Invasive 55 mmHg LOW Mean Arterial Pressure (NBP) 74 mmHg 01/27/2024 16:45 EDT Heart Rate Monitored 70 bpm Systolic Blood Pressure Non-Invasive 112 mmHg Diastolic Blood Pressure Non-Invasive 48 mmHg Mean Arterial Pressure (NBP) 64 mmHg 01/27/2024 16:30 EDT Heart Rate Monitored 69 bpm Systolic Blood Pressure Non-Invasive 136 mmHg Diastolic Blood Pressure Non-Invasive 56 mmHg LOW Mean Arterial Pressure (NBP) 77 mmHg 01/27/2024 16:15 EDT Apical Heart Rate 81 bpm Heart Rate Monitored 83 bpm Systolic Blood Pressure Non-Invasive 142 mmHg HI Diastolic Blood Pressure Non-Invasive 51 mmHg LOW Mean Arterial Pressure (NBP) 76 mmHg 01/27/2024 16:00 EDT Heart Rate Monitored 87 bpm Systolic Blood Pressure Non-Invasive 139 mmHg Diastolic Blood Pressure Non-Invasive 51 mmHg LOW Mean Arterial Pressure (NBP) 76 mmHg 01/27/2024 15:57 EDT Temperature Oral 36.7 DegC Heart Rate Monitored 85 bpm Respiratory Rate 27 br/min HI Systolic Blood Pressure Non-Invasive 134 mmHg Diastolic Blood Pressure Non-Invasive 50 mmHg Mean Arterial Pressure (NBP) 74 mmHg Reason For Taking VItal Signs Routine 01/27/2024 15:45 EDT Heart Rate Monitored 85 bpm Systolic Blood Pressure Non-Invasive 138 mmHg Diastolic Blood Pressure Non-Invasive 58 mmHg LOW Mean Arterial Pressure (NBP) 80 mmHg 01/27/2024 15:40 EDT Heart Rate Monitored 81 bpm Systolic Blood Pressure Non-Invasive 145 mmHg HI Diastolic Blood Pressure Non-Invasive 56 mmHg LOW Mean Arterial Pressure (NBP) 80 mmHg Reason For Taking VItal Signs In Error (In Error) 01/27/2024 15:36 EDT Heart Rate Monitored 81 bpm Systolic Blood Pressure Non-Invasive 142 mmHg HI Diastolic Blood Pressure Non-Invasive 55 mmHg LOW Mean Arterial Pressure (NBP) 79 mmHg 01/27/2024 15:15 EDT Heart Rate Monitored 80 bpm Systolic Blood Pressure Non-Invasive 146 mmHg HI Diastolic Blood Pressure Non-Invasive 59 mmHg LOW Mean Arterial Pressure (NBP) 82 mmHg 01/27/2024 14:58 EDT Heart Rate Monitored 76 bpm Systolic Blood Pressure Non-Invasive 116 mmHg Diastolic Blood Pressure Non-Invasive 54 mmHg LOW Mean Arterial Pressure (NBP) 71 mmHg 01/27/2024 14:46 EDT Heart Rate Monitored 74 bpm Systolic Blood Pressure Non-Invasive 127 mmHg Diastolic Blood Pressure Non-Invasive 54 mmHg LOW Mean Arterial Pressure (NBP) 73 mmHg 01/27/2024 14:38 EDT Heart Rate Monitored 72 bpm Respiratory Rate 24 br/min HI Systolic Blood Pressure Non-Invasive 123 mmHg Diastolic Blood Pressure Non-Invasive 55 mmHg LOW Mean Arterial Pressure (NBP) 74 mmHg Reason For Taking VItal Signs In Error (In Error) 01/27/2024 13:28 EDT Heart Rate Monitored 71 bpm Systolic Blood Pressure Non-Invasive 95 mmHg Diastolic Blood Pressure Non-Invasive 45 mmHg Mean Arterial Pressure (NBP) 59 mmHg 01/27/2024 13:22 EDT Heart Rate Monitored 77 bpm Respiratory Rate 24 br/min HI Systolic Blood Pressure Non-Invasive 101 mmHg Diastolic Blood Pressure Non-Invasive 47 mmHg Mean Arterial Pressure (NBP) 63 mmHg Reason For Taking VItal Signs Routine 01/27/2024 13:15 EDT Heart Rate Monitored 70 bpm Systolic Blood Pressure Non-Invasive 94 mmHg Diastolic Blood Pressure Non-Invasive 50 mmHg Mean Arterial Pressure (NBP) 63 mmHg 01/27/2024 13:10 EDT Heart Rate Monitored 76 bpm Systolic Blood Pressure Non-Invasive 84 mmHg LOW Diastolic Blood Pressure Non-Invasive 44 mmHg Mean Arterial Pressure (NBP) 57 mmHg 01/27/2024 12:52 EDT Heart Rate Monitored 67 bpm Systolic Blood Pressure Non-Invasive 115 mmHg Diastolic Blood Pressure Non-Invasive 76 mmHg Mean Arterial Pressure (NBP) 87 mmHg 01/27/2024 12:30 EDT Heart Rate Monitored 64 bpm Systolic Blood Pressure Non-Invasive 113 mmHg Diastolic Blood Pressure Non-Invasive 52 mmHg LOW Mean Arterial Pressure (NBP) 70 mmHg 01/27/2024 12:00 EDT Heart Rate Monitored 62 bpm Systolic Blood Pressure Non-Invasive 110 mmHg Diastolic Blood Pressure Non-Invasive 55 mmHg LOW Mean Arterial Pressure (NBP) 71 mmHg 01/27/2024 11:45 EDT Heart Rate Monitored 60 bpm Systolic Blood Pressure Non-Invasive 114 mmHg Diastolic Blood Pressure Non-Invasive 55 mmHg LOW Mean Arterial Pressure (NBP) 72 mmHg 01/27/2024 11:30 EDT Heart Rate Monitored 58 bpm LOW Systolic Blood Pressure Non-Invasive 114 mmHg Diastolic Blood Pressure Non-Invasive 57 mmHg LOW Mean Arterial Pressure (NBP) 74 mmHg 01/27/2024 11:21 EDT Temperature Oral 36.5 DegC Heart Rate Monitored 56 bpm LOW Respiratory Rate 25 br/min HI Systolic Blood Pressure Non-Invasive 112 mmHg Diastolic Blood Pressure Non-Invasive 56 mmHg LOW Mean Arterial Pressure (NBP) 73 mmHg Reason For Taking VItal Signs Routine 01/27/2024 11:15 EDT Heart Rate Monitored 56 bpm LOW Systolic Blood Pressure Non-Invasive 111 mmHg Diastolic Blood Pressure Non-Invasive 57 mmHg LOW Mean Arterial Pressure (NBP) 73 mmHg 01/27/2024 11:06 EDT Heart Rate Monitored 56 bpm LOW Systolic Blood Pressure Non-Invasive 114 mmHg Diastolic Blood Pressure Non-Invasive 56 mmHg LOW Mean Arterial Pressure (NBP) 73 mmHg 01/27/2024 11:01 EDT Heart Rate Monitored 55 bpm LOW Systolic Blood Pressure Non-Invasive 93 mmHg Diastolic Blood Pressure Non-Invasive 54 mmHg LOW Mean Arterial Pressure (NBP) 66 mmHg 01/27/2024 10:51 EDT Heart Rate Monitored 57 bpm LOW Systolic Blood Pressure Non-Invasive 67 mmHg LOW Diastolic Blood Pressure Non-Invasive 39 mmHg Mean Arterial Pressure (NBP) 49 mmHg 01/27/2024 10:45 EDT Heart Rate Monitored 59 bpm LOW Systolic Blood Pressure Non-Invasive 67 mmHg LOW Diastolic Blood Pressure Non-Invasive 46 mmHg Mean Arterial Pressure (NBP) 53 mmHg 01/27/2024 10:08 EDT Heart Rate Monitored 60 bpm Systolic Blood Pressure Non-Invasive 104 mmHg Diastolic Blood Pressure Non-Invasive 61 mmHg Mean Arterial Pressure (NBP) 74 mmHg 01/27/2024 9:50 EDT Apical Heart Rate 68 bpm Heart Rate Monitored 66 bpm Respiratory Rate 24 br/min HI Systolic Blood Pressure Non-Invasive 108 mmHg Diastolic Blood Pressure Non-Invasive 54 mmHg LOW Mean Arterial Pressure (NBP) 70 mmHg Reason For Taking VItal Signs Routine 01/27/2024 8:45 EDT Heart Rate Monitored 70 bpm Systolic Blood Pressure Non-Invasive 102 mmHg Diastolic Blood Pressure Non-Invasive 51 mmHg LOW Mean Arterial Pressure (NBP) 66 mmHg 01/27/2024 8:32 EDT Heart Rate Monitored 72 bpm Systolic Blood Pressure Non-Invasive 128 mmHg Diastolic Blood Pressure Non-Invasive 55 mmHg LOW Mean Arterial Pressure (NBP) 76 mmHg 01/27/2024 8:15 EDT Heart Rate Monitored 65 bpm Systolic Blood Pressure Non-Invasive 96 mmHg Diastolic Blood Pressure Non-Invasive 48 mmHg Mean Arterial Pressure (NBP) 63 mmHg 01/27/2024 8:01 EDT Heart Rate Monitored 79 bpm Systolic Blood Pressure Non-Invasive 134 mmHg Diastolic Blood Pressure Non-Invasive 70 mmHg Mean Arterial Pressure (NBP) 89 mmHg 01/27/2024 7:15 EDT Temperature Oral 36.9 DegC Heart Rate Monitored 77 bpm Respiratory Rate 24 br/min HI Systolic Blood Pressure Non-Invasive 136 mmHg Diastolic Blood Pressure Non-Invasive 63 mmHg Mean Arterial Pressure (NBP) 83 mmHg Reason For Taking VItal Signs Routine 01/27/2024 7:01 EDT Heart Rate Monitored 61 bpm Systolic Blood Pressure Non-Invasive 123 mmHg Diastolic Blood Pressure Non-Invasive 61 mmHg Mean Arterial Pressure (NBP) 77 mmHg 01/27/2024 6:45 EDT Heart Rate Monitored 72 bpm Systolic Blood Pressure Non-Invasive 135 mmHg Diastolic Blood Pressure Non-Invasive 66 mmHg Mean Arterial Pressure (NBP) 86 mmHg 01/27/2024 6:30 EDT Heart Rate Monitored 68 bpm Systolic Blood Pressure Non-Invasive 137 mmHg Diastolic Blood Pressure Non-Invasive 71 mmHg Mean Arterial Pressure (NBP) 87 mmHg 01/27/2024 6:15 EDT Heart Rate Monitored 58 bpm LOW Systolic Blood Pressure Non-Invasive 110 mmHg Diastolic Blood Pressure Non-Invasive 64 mmHg Mean Arterial Pressure (NBP) 77 mmHg 01/27/2024 6:09 EDT Heart Rate Monitored 68 bpm Systolic Blood Pressure Non-Invasive 102 mmHg Diastolic Blood Pressure Non-Invasive 57 mmHg LOW Mean Arterial Pressure (NBP) 71 mmHg 01/27/2024 6:00 EDT Heart Rate Monitored 62 bpm Systolic Blood Pressure Non-Invasive 69 mmHg LOW Diastolic Blood Pressure Non-Invasive 44 mmHg Mean Arterial Pressure (NBP) 52 mmHg 01/27/2024 5:45 EDT Heart Rate Monitored 59 bpm LOW Systolic Blood Pressure Non-Invasive 76 mmHg LOW Diastolic Blood Pressure Non-Invasive 44 mmHg Mean Arterial Pressure (NBP) 55 mmHg 01/27/2024 5:30 EDT Heart Rate Monitored 74 bpm Systolic Blood Pressure Non-Invasive 109 mmHg Diastolic Blood Pressure Non-Invasive 56 mmHg LOW Mean Arterial Pressure (NBP) 72 mmHg 01/27/2024 5:16 EDT Heart Rate Monitored 70 bpm Respiratory Rate 24 br/min HI Systolic Blood Pressure Non-Invasive 101 mmHg Diastolic Blood Pressure Non-Invasive 57 mmHg LOW Mean Arterial Pressure (NBP) 72 mmHg Reason For Taking VItal Signs Routine 01/27/2024 4:45 EDT Heart Rate Monitored 68 bpm Systolic Blood Pressure Non-Invasive 106 mmHg Diastolic Blood Pressure Non-Invasive 52 mmHg LOW Mean Arterial Pressure (NBP) 68 mmHg 01/27/2024 4:30 EDT Heart Rate Monitored 67 bpm Systolic Blood Pressure Non-Invasive 97 mmHg Diastolic Blood Pressure Non-Invasive 49 mmHg Mean Arterial Pressure (NBP) 64 mmHg 01/27/2024 4:29 EDT Heart Rate Monitored 68 bpm Respiratory Rate 25 br/min HI 01/27/2024 4:15 EDT Heart Rate Monitored 67 bpm Systolic Blood Pressure Non-Invasive 101 mmHg Diastolic Blood Pressure Non-Invasive 48 mmHg Mean Arterial Pressure (NBP) 64 mmHg 01/27/2024 4:00 EDT Heart Rate Monitored 66 bpm Systolic Blood Pressure Non-Invasive 95 mmHg Diastolic Blood Pressure Non-Invasive 44 mmHg Mean Arterial Pressure (NBP) 59 mmHg 01/27/2024 3:45 EDT Heart Rate Monitored 70 bpm Systolic Blood Pressure Non-Invasive 127 mmHg Diastolic Blood Pressure Non-Invasive 65 mmHg Mean Arterial Pressure (NBP) 83 mmHg 01/27/2024 3:35 EDT Temperature Oral 36.9 DegC Heart Rate Monitored 67 bpm Respiratory Rate 28 br/min HI Systolic Blood Pressure Non-Invasive 121 mmHg Diastolic Blood Pressure Non-Invasive 66 mmHg Mean Arterial Pressure (NBP) 81 mmHg Reason For Taking VItal Signs Routine 01/27/2024 3:19 EDT Apical Heart Rate Not Done: Not Appropriate at this Time (Not Done) 01/27/2024 3:10 EDT Heart Rate Monitored 65 bpm Systolic Blood Pressure Non-Invasive 95 mmHg Diastolic Blood Pressure Non-Invasive 51 mmHg LOW Mean Arterial Pressure (NBP) 65 mmHg 01/27/2024 2:50 EDT Heart Rate Monitored 71 bpm Respiratory Rate 28 br/min HI Systolic Blood Pressure Non-Invasive 106 mmHg Diastolic Blood Pressure Non-Invasive 79 mmHg Mean Arterial Pressure (NBP) 73 mmHg Reason For Taking VItal Signs Routine 01/27/2024 2:40 EDT Heart Rate Monitored 68 bpm Systolic Blood Pressure Non-Invasive 75 mmHg LOW Diastolic Blood Pressure Non-Invasive 46 mmHg Mean Arterial Pressure (NBP) 55 mmHg Reason For Taking VItal Signs Routine 01/27/2024 2:19 EDT Heart Rate Monitored 72 bpm Systolic Blood Pressure Non-Invasive 99 mmHg Diastolic Blood Pressure Non-Invasive 47 mmHg Mean Arterial Pressure (NBP) 63 mmHg Reason For Taking VItal Signs Routine 01/27/2024 1:30 EDT Heart Rate Monitored 75 bpm Systolic Blood Pressure Non-Invasive 99 mmHg Diastolic Blood Pressure Non-Invasive 56 mmHg LOW Mean Arterial Pressure (NBP) 69 mmHg Reason For Taking VItal Signs Routine 01/27/2024 1:16 EDT Heart Rate Monitored 77 bpm Respiratory Rate 29 br/min HI Systolic Blood Pressure Non-Invasive 116 mmHg Diastolic Blood Pressure Non-Invasive 55 mmHg LOW Mean Arterial Pressure (NBP) 71 mmHg Blood Pressure Method Automatic Blood Pressure Location Left arm Reason For Taking VItal Signs Routine 01/27/2024 0:50 EDT Heart Rate Monitored 83 bpm Systolic Blood Pressure Non-Invasive 138 mmHg Diastolic Blood Pressure Non-Invasive 64 mmHg Mean Arterial Pressure (NBP) 83 mmHg Reason For Taking VItal Signs Routine 01/27/2024 0:15 EDT Heart Rate Monitored 147 bpm HI Heart Rate Monitored 147 bpm HI Respiratory Rate 24 br/min HI Respiratory Rate 28 br/min HI Systolic Blood Pressure Invasive 82 mmHg LOW Diastolic Blood Pressure Invasive 78 mmHg Mean Arterial Pressure (Line) 79 mmHg Reason For Taking VItal Signs Routine 01/27/2024 0:00 EDT Heart Rate Monitored 145 bpm HI Respiratory Rate 24 br/min HI Systolic Blood Pressure Non-Invasive 145 mmHg HI Diastolic Blood Pressure Non-Invasive 87 mmHg Mean Arterial Pressure (NBP) 99 mmHg Blood Pressure Method Automatic Blood Pressure Location Left arm Vital Signs (last 24 hrs) Last Charted Temp Oral36.8 DegC (JAN 27 07:03) Heart Rate [id number] bpm (JAN 27 09:33) SBPH 158 mmHg (JAN 27 09:33) DBPC 48mmHg (JAN 27 09:33) Measurements from flowsheet : Measurements 01/27/2024 13:38 EDT [place] Body Weight 75.5 kg Pain assessment: Pain Assessment 01/28/2024 9:33 EDT Primary Pain Intensity 3 Primary Pain Nonverbal Response Appears restful Pain Scale Type Behavioral pain scale 01/28/2024 7:03 EDT Primary Pain Intensity 3 Primary Pain Nonverbal Response Appears restful Pain Scale Type Behavioral pain scale 01/28/2024 5:34 EDT Primary Pain Intensity 3 Primary Pain Nonverbal Response Appears restful Pain Scale Type Behavioral pain scale 01/28/2024 3:30 EDT Primary Pain Intensity 3 Primary Pain Nonverbal Response Appears restful Pain Scale Type Behavioral pain scale 01/28/2024 1:30 EDT Primary Pain Intensity 3 Primary Pain Nonverbal Response Appears restful Pain Scale Type PAINAD 01/27/2024 23:30 EDT Primary Pain Intensity 3 Primary Pain Nonverbal Response Appears restful Pain Scale Type Behavioral pain scale 01/27/2024 21:40 EDT Primary Pain Intensity 3 Primary Pain Intensity 3 Primary Pain Nonverbal Response Appears restful Primary Pain Nonverbal Response Appears restful Pain Scale Type Behavioral pain scale Pain Scale Type Behavioral pain scale 01/27/2024 20:30 EDT Primary Pain Intensity 3 Primary Pain Nonverbal Response Appears restful Pain Scale Type Behavioral pain scale 01/27/2024 18:00 EDT Primary Pain Intensity 3 Primary Pain Nonverbal Response Appears restful Pain Scale Type Behavioral pain scale 01/27/2024 15:57 EDT Primary Pain Intensity 3 Primary Pain Nonverbal Response Appears restful Pain Scale Type Behavioral pain scale 01/27/2024 13:22 EDT Primary Pain Location Generalized Primary Pain Intensity 3 Primary Pain Non-Pharma Intervention Rest, Repositioning Primary Pain Nonverbal Response Appears restful Pain Scale Type Behavioral pain scale 01/27/2024 11:36 EDT Pain Scale Assessment Behavioral pain scale Primary Pain Location Generalized Primary Pain Intensity 3 01/27/2024 11:21 EDT Primary Pain Location Generalized Primary Pain Intensity 3 Primary Pain Non-Pharma Intervention Rest, Repositioning Primary Pain Nonverbal Response Appears restful Pain Scale Type Behavioral pain scale 01/27/2024 11:06 EDT Primary Pain Intensity 6 01/27/2024 9:50 EDT Primary Pain Location Generalized Primary Pain Intensity 3 Primary Pain Non-Pharma Intervention Rest, Repositioning Primary Pain Nonverbal Response Appears restful Pain Scale Type Behavioral pain scale 01/27/2024 7:15 EDT Primary Pain Location Generalized Primary Pain Intensity 3 Primary Pain Non-Pharma Intervention Rest, Repositioning Primary Pain Nonverbal Response Appears restful Pain Scale Type Behavioral pain scale 01/27/2024 5:20 EDT Primary Pain Intensity 6 01/27/2024 5:16 EDT Primary Pain Location Generalized Primary Pain Intensity 6 Primary Pain Pharma Intervention Medication Primary Pain Non-Pharma Intervention Rest, Repositioning Primary Pain Nonverbal Response Nods Yes Pain Scale Type Behavioral pain scale 01/27/2024 3:35 EDT Primary Pain Location Generalized Primary Pain Intensity 3 Primary Pain Non-Pharma Intervention Rest, Repositioning Primary Pain Nonverbal Response Appears restful Pain Scale Type Behavioral pain scale 01/27/2024 1:16 EDT Primary Pain Intensity 3 Primary Pain Nonverbal Response Appears restful Pain Scale Type Behavioral pain scale . General: sedated. Airway: Unable to examine: Patient intubated. Respiratory: Lungs are clear to auscultation. Cardiovascular: Normal rate, Regular rhythm. Review / Management Results review: Labs (Last four charted values) WBC 8.6(JAN 27)8.7(JAN 26)8.0(JAN 25)9.3(JAN 24) Hgb L 10.2(JAN 27)L 10.5(JAN 26)L 11.5(JAN 26)L 10.1(JAN 25) Hct L 30.2(JAN 27)L 31.7(JAN 26)L 34.7(JAN 26)L 30.2(JAN 25) Plt L 124(JAN 27)L 89(JAN 26)L 72(JAN 25)L 57(JAN 24) Na H 153(JAN 27)H 151(JAN 26)H 153(JAN 26)H 150(JAN 25) K 3.7(JAN 27)4.0(JAN 26)L 3.4(JAN 26)L 3.2(JAN 25) CO2 29(JAN 27)26(JAN 26)29(JAN 26)27(JAN 25) Cl H 117(JAN 27)H 114(JAN 26)H 115(JAN 26)H 116(JAN 25) Cr H 2.28(JAN 27)H 2.16(JAN 26)H 2.17(JAN 26)H 2.28(JAN 25) BUN H 88.0(JAN 27)H 77.0(JAN 26)H 72.0(JAN 26)H 67.0(JAN 25) Glucose H 253(JAN 27)H 257(JAN 26)H 238(JAN 26)H 233(JAN 25) Mg 2.1(JAN 26)2.2(JAN 25)2.2(JAN 25)2.3(JAN 25) Phos 3.2(JAN 26)2.7(JAN 25)3.5(JAN 25)3.0(JAN 25) Ca L 8.3(JAN 27)L 8.5(JAN 26)L 7.9(JAN 26)L 8.2(JAN 25) PT 10.6(JAN 25)12.0(JAN 22)12.7(JAN 20) INR 0.9(JAN 25)1.0(JAN 22)1.1(JAN 20) PTT H 35.9(JAN 22)29.9(JAN 20) Total CK H 597(JAN 25) , Lab results 01/28/2024 10:15 EDT Parry Screen Daily History of Fall in Last 3 Months Parry No Presence of Secondary Diagnosis Parry Yes Use of Ambulatory Aid Parry None, bedrest, wheelchair, nurse IV/PRN Adapter Fall Risk Parry Yes Gait Weak or Impaired Fall Risk Parry Normal, bedrest, immobile Mental Status Fall Risk Parry Forgets limitations Parry Fall Risk Score 50 HI Individuals Taught Patient Learning Readiness critical condition Barriers to Learning Acuity of illness Teaching Method Explanation Teaching Evaluation Needs further teaching Education Topics Fall Prevention Alarms, Assistive equipment use, Bed height/stabilization 01/28/2024 10:13 EDT CAM Mental Status Change & Fluctuation Not Done: Task Duplication (Not Done) CAM Inattention Not Done: Task Duplication (Not Done) CAM Disorganized Thinking Not Done: Task Duplication (Not Done) CAM Altered Level of Consciousness Not Done: Task Duplication (Not Done) Confusion Assessment Method Score Not Done: Task Duplication (Not Done) BMAT Existing Patient Condition/Safety Strict bedrest 01/28/2024 10:12 EDT CAM Mental Status Change & Fluctuation Unable to determine CAM Inattention Unable to determine CAM Disorganized Thinking Unable to determine CAM Altered Level of Consciousness Yes Confusion Assessment Method Score Unable to determine Mechanical VTE Prophylaxis Education Not Done: See ICU flow (Not Done) Mechanical VTE Prophylaxis Education Not Done: See ICU flow (Not Done) Sequential Compression Device Not Done: See ICU flow (Not Done) Antiembolism Stockings Form Not Done (Not Done) Sequential Compression Device Form Not Done (Not Done) 01/28/2024 10:00 EDT Soft limb holders (Cloth) Wrist, bilateral Restraint Technique: Non Violent Restraint Restraint Activity Type: Continue restraint, same episode Behavior Requiring Non Violent Restraint Attempts to remove medical management devices Type of Medical Devices: Monitoring equipment, Tubes/drains, IV/arterial access, Airway management equipment Rationale for Restraint: Attempting to remove devices, despite current restraints Range of Motion: Repositioned Restraint Skin Assessment: Skin intact, Pulses intact Restraint Nutrition/Hydration: IV fluid Restraint Hygiene/Elimination: Urinary catheter Other Standard Safety: Call device within reach, ID band check, Night light, Non-Slip footwear Bed Standard Safety: Bed alert on, Bed in low position, Upper/Half-length side rails up, Wheels locked, HOB elevated Restraint DC Readiness Attempts: Diversional activities, Enhanced observation, Environmental changes, Family/Visitor at bedside with nursing supervision, Negotiation, Pain management, Postitioning/Turning, Reality orientation Restraint DC Intervention Status: Intervention attempted, not successful 01/28/2024 9:58 EDT Nephrology Progress Note Progress Note 01/28/2024 9:52 EDT insulin regular Begin Bag 1 mL unit(s) NS Premix Diluent Begin Bag 100 mL mL 01/28/2024 9:50 EDT Blood Glucose, Capillary 175 mg/dL HI Blood Glucose Testing Reason Routine 01/28/2024 9:33 EDT Heart Rate Monitored 75 bpm Respiratory Rate 27 br/min HI Systolic Blood Pressure Non-Invasive 158 mmHg HI Diastolic Blood Pressure Non-Invasive 48 mmHg Mean Arterial Pressure (NBP) 75 mmHg Reason For Taking VItal Signs Routine Oral Care ICU Done Eye Care Done Sedation Level -3 Moderate Sedation Sedation Level Interventions IV Sedation Decreased Primary Pain Intensity 3 Primary Pain Nonverbal Response Appears restful Pain Scale Type Behavioral pain scale Monitor Alarms On and Limits Checked Nail Bed Color [place] Capillary Refill < 2 seconds Heart Sounds ICU [id number] Heart Rhythm Regular Generalized Edema Ratin+ mild/4mm Sclera edema Bilateral Edema Ratin+ mild/4mm Hand edema Bilateral Edema Ratin+ mild/4mm Cardiac Rhythm Sinus rhythm Monitoring Lead II, V1/MCL1 Alarms On and Functional Yes Respirations Unlabored Respiratory Pattern Regular Respiratory Pattern Detailed Vented Chest Motion Symmetrical Patient Airway Status Patent with support Breath Sounds Auscultated Anterior only All Lobes Breath Sounds Clear, Diminished Ventilator Mode (PSV) Pressure Support Ventilation Positive End Expiratory Pressure 5 cmH20 Pressure Support 5 cmH20 FiO2 40 % Tidal Volume, Exhaled 0.591 L Resuscitation Bag Available Yes Vent Alarms On and Functional Yes Oxygen Therapy Ventilator Oxygen Saturation 93 % Tracheal Position Midline Cuffed endotracheal tube 8 01/21/2024 Endotracheal Tube Activity: Assessed Endotracheal Tube Placement: Oral, right ET Tube Insertion cm Salvador at Lip: 23 cm Endotracheal Tube Position Confirmation: Breath sounds Endotracheal Tube Status: Patent, Secure, manufactured tube alfredo Endotracheal Tube Care: Oral care Abdomen Description Rounded Abdomen Palpation Semi-firm Bowel Continence No bowel movement Bowel Sounds All Quadrants Hypoactive Nasogastric (NG) Nostril, left Gastrointestinal Tube Activity: Assessed Enteral Tube Insertion cm Salvador at Nare: 78 cm GI Tube Method of Drainage: Medium Intermittent Suction Gastrointestinal Tube Site Condition: No complications GI Tube Placement Confirmation: Aspiration Urinary Elimination Urinary catheter draining Urinary Elimination Devices Indwelling catheter Urethral Indwelling/Continuous 16 Fr 01/21/2024 Urinary Catheter Indication: ICU Patient-Hemodynamic instability Urinary Catheter Activity: Assessed Urinary Catheter Site Condition: No complications All Extremity Description Normal for ethnicity Temperature All Extremities Warm Mucous Membrane Color [place] Mucous Membrane Description Moist Abdomen Anterior Skin Abnormality Type: Surgical incision Wound Status: Unchanged Abdomen Left Lateral Skin Abnormality Type: Tear Wound Status: Unchanged Luke-Barillas # 1 Abdomen Right Surgical Drain, Tube Activity: Assessed Surgical Drain, Tube Care: [place] collapsed Surgical Drain Site Condition: No complications Luke-[place] # 2 Abdomen Right Surgical Drain, Tube Activity: Assessed Surgical Drain, Tube Care: [place] collapsed Surgical Drain Site Condition: No complications Luke-[place] # 3 Abdomen Right Surgical Drain, Tube Activity: Assessed Surgical Drain, Tube Care: [place] collapsed Surgical Drain Site Condition: No complications Luke-[place] # 4 Abdomen Left Surgical Drain, Tube Activity: Assessed Surgical Drain, Tube Care: [place] collapsed Surgical Drain Site Condition: No complications [place] Left Surgical Drain, Tube Activity: Assessed Surgical Drain, Tube Care: [place] collapsed Surgical Drain Site Condition: No complications Continuous IV Infusions TPN@80 Triple Lumen Internal jugular vein Left 01/22/2024 Central IV Activity: Assessed Central IV Number of Lumens: Triple Central IV Site Condition: No complications Central IV Equipment: IV Pump Neurological Symptoms Sedated Level of Consciousness Arousable with minimal stimulation Eye Opening Response Nathan To voice Best Motor Response Nathan Obeys simple commands Best Verbal Response Nathan None Nathan Coma Score 10 Response to Stimuli Affected by Sedation GALILEA Yes Strength All Extremities Weak Affect/Behavior Impulsive Orientation Follows simple commands Right lateral 16 Micron[place] Chest Tube Activity: Assess Chest Tube Connectivity: Water-Seal 20 cm suction Chest Tube Water Seal Chamber Desc: Absence of Bubbling Orientation Assessment Unable to evaluate Positioning Repositioned left side Beds/Devices low air loss bed Assistive Equipment boot(s) on Activity Assistance Maximum assistance Sequential Compression Device bilateral knee high applied/on Skin Care Preventative Intervention(s) heel(s)s elevated, turn and position system Standard Safety ID band on, Call device within reach, Bed in low position, Wheels locked, Upper/Half-Length side-rails up, Safety level maintained, Hazards removed from floor, Precautions maintained High Risk Safety Room located near nursing station, Door open, Room check performed Demonstrates Correct Call Light Use Yes dexmedeTOMIDine 0.4 mcg/kg/hr mcg insulin regular 4.5 unit(s)/hr unit(s) NS Premix Diluent NS Premix Diluent mL Sodium Chloride 0.9% Sodium Chloride 0.9% mL Degrees Head of Bed Elevated 30 01/28/2024 8:38 EDT Critical Care Progress Notes Progress Note (Modified) 01/28/2024 8:06 EDT Discharge To, Anticipated Home independently Anticipated Discharge Date 01/31/2024 Transition Planning Note Transition Planning Ongoing Assessment 01/28/2024 8:00 EDT Soft limb holders (Cloth) Wrist, bilateral Restraint Technique: Non Violent Restraint Restraint Activity Type: Continue restraint, same episode Behavior Requiring Non Violent Restraint Attempts to remove medical management devices Type of Medical Devices: Monitoring equipment, Tubes/drains, IV/arterial access, Airway management equipment Rationale for Restraint: Attempting to remove devices, despite current restraints Range of Motion: Repositioned Restraint Skin Assessment: Skin intact, Pulses intact Restraint Nutrition/Hydration: IV fluid Restraint Hygiene/Elimination: Urinary catheter Other Standard Safety: Call device within reach, ID band check, Allergy Band on, Night light, Non-Slip footwear Bed Standard Safety: Bed alert on, Bed in low position, Upper/Half-length side rails up, Wheels locked, HOB elevated Restraint DC Readiness Attempts: Diversional activities, Enhanced observation, Environmental changes, Family/Visitor at bedside with nursing supervision, Negotiation, Pain management, Postitioning/Turning, Reality orientation Restraint DC Intervention Status: Intervention attempted, not successful Individuals Taught Patient Learning Readiness critical condition Barriers to Learning Acuity of illness Teaching Method Explanation Preferred Spoken Language Nigerien Preferred Written Language Nigerien Restraint Use Education Reason for restraint use, Restraint release criteria Restraint Teaching Evaluation Needs further teaching 01/28/2024 7:41 EDT Weaning Negative Inspiratory Force -16 cmH20 Weaning Respiratory Rate 25 br/min Weaning Rapid Shallow Breathing Index 41 Weaning Tidal Volume 0.69 L Weaning Minute Volume 15 L/min Spontaneous Breathing Trial Initiated 01/28/2024 7:34 EDT Heart Rate Monitored 61 bpm Systolic Blood Pressure Non-Invasive 112 mmHg Diastolic Blood Pressure Non-Invasive 50 mmHg Mean Arterial Pressure (NBP) 66 mmHg Respirations Unlabored Respiratory Pattern Detailed Vented Patient Airway Status Patent with support Ventilator Mode (PSV) Pressure Support Ventilation Positive End Expiratory Pressure 5 cmH20 Pressure Support 5 cmH20 FiO2 40 % Flow Trigger (range 0.3 - 15 L/min.) 2 L/min Tube Compensation On Ventilator Model Drager V500 Ventilator ID 6 Vent FiO2 40 % Respiratory Rate Total 25 br/min HI Minute Volume 13 L/min Tidal Volume, Exhaled 0.638 L Resuscitation Bag Available Yes Mask, Obturator, Syringe at bedside Yes Vent Alarms On and Functional Yes Vent Alarm Apnea 2 (more content not included)... [id number] Note The microscopic examination is performed, except in the case of Gross Only. [facility] 10-28-2024 Procedure note Date of Service 01/27/2024. Procedure Name Flexible fiberoptic bronchoscopy Consent The procedure of bronchoscopy, indication, potential complication were explained and the signed the consent Indication Mucous plugging with hypoxemia Location Surgical intensive care unit patient sedated on mechanical ventilation Procedural Sedation Propofol infusion and drip along with 1 dose of rocuronium 50 mg IV. Technique The flexible bronchoscope was advanced through the endotracheal tube, to the colton which was a lotvisualized, there is large thick mucoid mucous plugging observed at the left distal trachea and theproximal left main bronchus, this was aspirated, subsequently the full patency of the left main bronchus was established,, there are several thick mucoid involving right upper lobe and right lower lobe segment, all aspirated, second look revealed that all orifice were patent, no mucosal inflammation no purulent secretion there is no hemorrhage. Oxygen saturation stayed in the 95 to 98% the procedures. Postprocedure was 99% mucus plugging seen at both levels left upper lobe but more prominent atthe left lower lobe bronchial tree, those were all aspirated, second look reveals full orifice werepatent, mucosa is normal, no purulent secretion and no inflammation. Bronchoscope was withdrawn to the colton advanced down the right main bronchus and once again there is evidence of extensive mucous plugging always a mucoid Findings Extensive mucous plugging, secretion with mucoid and tenacious, no purulent secretion, mucosa was normal, all orifice were patent with the second look. There is also a proximal left main mucous plugging. Complications None Estimated Blood Loss None Assessment/Plan Patient is tolerated the procedure well, saturation improved significant after the procedures, chest that is ordered Digitally Signed by TORIBIO DEAN MD on 01/27/2024 01:07 PM [facility] [id number] Note The microscopic examination is performed, except in the case of Gross Only. [facility] 10-28-2024 Note The microscopic examination is performed, except in the case of Gross Only. [facility] 10-27-2024 NoteSinus tachycardia Probable anterior infarct, age indeterminate Prolonged QT interval Electronic Signature: STUART ROMAN MD 01/27/2024 15:47:50[facility] 10-27-2024 NoteAtrial fibrillation Low voltage, precordial leads Repol abnrm suggests ischemia, diffuse leads Prolonged QT interval Electronic Signature: STUART ROMAN MD 01/27/2024 [facility]* Exam Date Time Procedure Performing Provider Status 01/24/24 5:11 PM Echocardiogram, Adult - CV Auth (Verified) [facility] 10-25-2024 Note The microscopic examination is performed, except in the case of Gross Only. [facility] 10-25-2024 Note The microscopic examination is performed, except in the case of Gross Only. [facility] 10-25-2024 Note The microscopic examination is performed, except in the case of Gross Only. [facility] 10-25-2024 Note The microscopic examination is performed, except in the case of Gross Only. [facility] 10-25-2024 Note The microscopic examination is performed, except in the case of Gross Only. [facility] 10-25-2024 Note The microscopic examination is performed, except in the case of Gross Only. [facility] 10-25-2024 Note The microscopic examination is performed, except in the case of Gross Only. [facility] 10-25-2024 Note The microscopic examination is performed, except in the case of Gross Only. [facility] 10-25-2024 Note The microscopic examination is performed, except in the case of Gross Only. [facility] 10-25-2024 Note The microscopic examination is performed, except in the case of Gross Only. [facility] 10-25-2024 Note The microscopic examination is performed, except in the case of Gross Only. [facility] 10-24-2024 Note AEXPLANTED MESH [facility] 10-23-2024 NoteAtrial fibrillation with rapid V-rate Low voltage, extremity and precordial leads Nonspecific T abnormalities, lateral leads Electronic Signature: ОЛЕГ BAEZA MD 01/23/2024 08:48:33[facility] 10-23-2024 Consult note Date of Service January 22 2024 History of Present Illness This is a 73-year-old male who has a history of type 2 diabetes, hypertension, dyslipidemia and obesity. Admitted to the hospital as a transfer from outside hospital on January 20. Patient recently in January 19 underwent robotically assisted laparoscopic repair of an umbilical hernia. Subsequentlyhe became more short of breath requiring oxygen supplements he was monitored at the outside hospital with no improvement in his symptoms. He underwent CT of the abdomen and pelvis which showed findings consistent perforated proximal and possibly distal duodenum and a perforated ulcer. Associated free air free fluid in the peritoneum and retroperitoneal cavities. Subcutaneous periumbilical and infr aumbilical abscess was seen. He was subsequently transferred here for further care. He underwent exploratory laparoscopy. With extraction of abdominal wall mesh debridement of abdominal wall and placement of an abdominal wound VAC. He has since been in the surgical ICU. Will get to see him now because of declining renal function. His creatinine is at 2.85 mg/dL. On presentation to the hospital his creatinine is at 2.51 mg/dL. His renal function is relatively normal. Some hemodynamic compromise with blood pressure dropping systolic as low as 77 mmHg. I do not see any use of any contrast. Therewas no use of any NSAIDs. Remains intubated on mechanical ventilation 40% FiO2. On epinephrine drip. Has a Delacruz catheter in place with about 150 cc of urine. Spoke with bedside nursing. Patient unable to provide any constitutional symptoms Review of Systems As per HPI Physical Exam Vitals and Measurements T: 37.5 C (Oral) TMIN: 36.5 C (Oral) TMAX: 39.5 C (Oral) HR: 116 (Monitored) RR: 27 BP: 113/57 BP: 128/48(Line) SpO2: 93% Weight Dosing Weight: 127.1 kg (01/21/24) Dosing Weight: 127.1 kg (01/21/24) Gen: Intubated on mechanical ventilation HEENT: Endotracheal tube in place Lungs: Equal breath sounds bilaterally CVS: Regular rate and rhythm, no murmur, no rubs, tachycardia Abd: Distended absent bowel sounds Delacruz catheter in place Neuro: Sedated Ext: No edema Lab Results 01/21 13:12 Glucose Level: 179 H Sodium Level: 137 Potassium Level: 5.4 H BUN: 50.0 H Creatinine Lvl (s): 2.85 H 01/21 08:44 Glucose Level: 173 H Sodium Level: 137 Potassium Level: 5.0 BUN: 49.0 H Creatinine Lvl (s): 2.84 H 01/21 02:34 WBC: 2.3 L Hgb: 14.7 Hct: 44.7 Platelet: 149 L Glucose Level: 168 H Sodium Level: 140 Potassium Level: 4.2 BUN: 54.0 H Creatinine Lvl (s): 2.63 H 01/20 22:58 WBC: 1.3 L Hgb: 15.3 Hct: 48.1 Platelet: 159 Glucose Level: 161 H Sodium Level: 137 Potassium Level: 5.2 H BUN: 37.0 H Creatinine Lvl (s): 2.36 H 01/20 14:32 WBC: 2.6 L Hgb: 16.3 Hct: 49.2 Platelet: 198 Neutrophil %: 78.3 H Protime: 12.7 PT International Ratio: 1.1 Glucose Level: 299 H Sodium Level: 137 Potassium Level: 4.6 BUN: 44.0 H Creatinine Lvl (s): 2.51 H Assessment/Plan 1. Acute kidney injury likely reflective of prerenal state. Patient oliguric but urine output is improving 2. Mild hyperkalemia 3. Hypovolemic/Septic shock 4. Pneumoperitoneum 5. Metabolic acidosis From a renal perspective acute kidney injury likely reflective prerenal state with hemodynamic compromise in addition to hypovolemic and septic shock. Urine output seems to be improving. Will continue with IV fluids. No need for urgent hemodialysis. Will monitor daily. Hyperkalemia likely resultingfrom renal sufficiency and acidosis monitor for now continue to match I's and O's. Microbiology wasreviewed. Will continue to follow pending cultures. Agree with empiric antibiotics dose as needed for compromise in GFR. Meanwhile it is important to maintain renal protective measures: 1. Maintain mean arterial pressure greater than 65 2. Avoid any nephrotoxins such as NSAIDs and limit the use of contrast This document was transcribed via voice recognition software and may contain typographical errors. Problem List/Past Medical History Ongoing DM type 2, goal HbA1c < 7.5% Hernia centeral/midline, ventricle (large) Hernia, umbilical History of basal cell carcinoma (BCC) of skin, nose History of COVID-19 History of ventral hernia HTN, goal below 140/90 Hyperlipidemia LDL goal <100 Hypothyroidism in adult Increased BMI Increased BMI (body mass index) Laceration of skin of right hand Medicare annual wellness visit, subsequent Non-smoker Risk and functional assessment Screening for abdominal aortic aneurysm Screening for cardiovascular condition Screening for colorectal cancer Screening for glaucoma Screening for prostate cancer Vitamin D deficiency Historical Basal cell carcinoma of nose COVID-19 virus infection Overweight Procedure/Surgical History Hernia repair: 01/20/24 Colonoscopy: 09/29/08 Hernia Surgery Surgery Medications Inpatient D5LR 1000 mL 1,000 mL, 1000 mL, Intravenous Dextrose, 25 gram(s)= 50 mL, IV Push, AsDirected, PRN folic acid HumuLIN R, sliding scale insulin, Subcutaneous, q4h, PRN Insulin Regular for IV 100 unit(s) + NS Premix Diluent 100 mL Norepinephrine for IV 8 mg [5 mcg/min] + NS PMX titrate 250 mL Ofirmev IVPB, 1000 mg= 100 mL, IV Piggyback, q6h, PRN Peridex 0.12% oral rinse liquid, 15 mL, Swish & Spit, QID Propofol for IV 1,000 mg [10 mcg/kg/min] + IV Premix Diluent titrate 100 mL Protonix IV Push, 40 mg, IV Push, BIDAC Puralube ophth solution, 1 drop(s), Eyes, both, q8h Puralube ophth solution, 1 drop(s), Eyes, both, AsDirected, PRN Puralube ophthalmic ointment, 1 mendy, Eyes, both, q8h Puralube ophthalmic ointment, 1 mendy, Eyes, both, AsDirected, PRN Sublimaze, 50 mcg= 1 mL, IV Push, q15min, PRN thiamine, 100 mg= 1 mL, IV Push, qDay vasopressin for IV 20 unit(s) [0.03 unit(s)/min] + Dextrose Premix titrate 100 mL Zosyn, 3.375 gram(s)= 50 mL, IV Piggyback, q8h Home amLODIPine 5 mg oral tablet, 5 mg= 1 tab(s), Oral, qDay, 3 refills, Refill needed, still taking (AMB only) atorvastatin 20 mg oral tablet, 20 mg= 1 tab(s), Oral, qDay, 1 refills Farxiga 10 mg oral tablet, 10 mg= 1 tab(s), Oral, qDay, 3 refills, Refill needed, still taking (AMBonly) HumaLOG Mix 50/50 KwikPen 3 mL PEN, 15 unit(s), Subcutaneous, BID levothyroxine 25 mcg (0.025 mg) oral tablet, 50 mcg= 2 tab(s), Oral, qDay, 1 refills losartan 100 mg oral tablet, 100 mg= 1 tab(s), Oral, qDay, 1 refills MetFORMIN (Eqv-Glucophage XR) 500 mg oral tablet, EXTENDED RELEASE, 1000 mg= 2 tab(s), Oral, BID, 2refills metoprolol succinate 25 mg oral TABLET extended release, 25 mg= 1 tab(s), Oral, qDay, 1 refills Trinity 325- 5 mg oral tablet, 1 tab(s), Oral, q4h, PRN Ozempic 4 mg/3 mL (1 mg dose) subcutaneous solution, 1 mg, Subcutaneous, qWeek, 1 refills Vitamin D (3) 45 units oral capsule Vitamin D with Minerals oral tablet, 1 tab(s), Oral, qDay, Refill needed, still taking (AMB only) Allergies NKA Social History Alcohol Use: Current. Type: Liquor. Frequency: Daily. Has alcohol use interfered with work or home life: No., 01/20/2024 Home/Environment Living situation: Home/Independent. Domestic Concerns: None. Lives In: Multilevel home. Spouse Name: JESSICA. Marital Status: ., 01/17/2024 Nutrition/Health Type of diet: Diabetic. Caffeine intake amount: Pop. Eating Difficulties None., 01/20/2024 Substance Abuse Use: Never., 09/29/2018 Tobacco Nicotine Use: Former smoker, quit more than 30 days ago. Type: Cigarettes. Number of years: 30., 01/17/2024 Family History Heart disease: Father. Hodgkin disease: Sister. Hypertension: Mother and Father. Stroke: Sister. Health Status Family Member(s) Immunizations pneumococcal 13-valent conjugate vaccine: 0.5 unknown unit (07/12/17) pneumococcal 23-valent vaccine(Pneumovax: 0 unknown unit (12/22/15) SARS-CoV-2 (COVID-19) Ad26 vaccine: 0.5 unknown unit (06/09/20) SARS-CoV-2 mRNA (tozinameran) vaccine: 0.3 unknown unit (02/25/21) tetanus/diphth/pertuss (Tdap) adult/adol: 0.5 unknown unit (10/13/22) zoster vaccine live: 0 unknown unit (01/21/16) Digitally Signed by JUAN JIMENES MD on 01/22/2024 02:48 PM [facility] [id number] Note [facility] 10-23-2024 Note [facility] 10-23-2024 Note [facility] 10-23-2024 Note [facility] 10-23-2024 Note [facility] 10-23-2024 [facility]-23-2024 Critical care medicine procedure note Date of Service 01/22/2024 Procedure Name Arterial line insertion Consent Obtained from Indication hemodynamic instability and hemodynamic monitoring Location 27[address] [employer] Decision was made to proceed with arterial line insertion after discussion with Dr. Morrow. The left radial site was prepped and draped in sterile fashion. Using, gown, sterile gloves, drape and maximum barrier technique, the left radial artery was identified via use of the ultrasound. The needlewas inserted in the left radial artery under ultrasound guidance good blood return. The syringe wasremoved and the guidewire inserted over the needle using Seldinger technique. The needle was then removed and the line placed over the guidewire. There was bright, red blood flowing freely from the catheter and arterial waveform on the monitor. The line was sutured into place and a sterile dressing applied. Complications No apparent complications Estimated Blood Loss 2 mL Total Time 20 minutes Digitally Signed by EMILEE HAY on 01/22/2024 04:48 AM Digitally Signed by OSMIN MORROW MD on 01/28/2024 11:34 AM [facility] [id number] Critical care medicine procedure note Date of Service 01/22/2024 Procedure Name Left internal jugular central venous catheter insertion Consent Obtained from septic shock Indication Hemodynamic instability need for hemodynamic monitoring Location [address] [employer] Informed consent was obtained from the patient's . All risks and benefits were explained and all questions were answered. A timeout was performed to confirm correct patient, site and procedure. The left internal jugular site was then prepped and draped in sterile fashion using maximum barrier technique the internal jugular vein was identified at the ultrasound. Approximately 3 mL of 1% lidocaine was administered subcutaneously. Under direct ultrasound guidance, the needle was inserted directly into the vein with excellent nonpulsatile blood return. The syringe was removed and using Seldinger technique, the guidewire was started with ease through the needle. The needle was then removed and small incision was made to puncture site of the skin. The dilator was then placed over the wire and the tract was dilated with ease. The dilator was then removed the triple-lumen catheter inserted over the wire. There is excellent dark nonpulsatile blood return noted through all 3 ports. The ports were easily flushed with sterile saline. The line was sutured into place. An antimicrobial patch was placed around the insertion site with sterile dressing. A postprocedural chest x-ray was completed and pending at time of dictation. Complications None approximate 3 mL Estimated Blood Loss 3 mL Total Time 20 minutes Follow Up/Recommendation Follow-up on chest x-ray Digitally Signed by EMILEE HAY on 01/22/2024 04:45 AM Digitally Signed by OSMIN MORROW MD on 01/28/2024 11:34 AM [facility] [id number] History and physical note Date of Service 01/21/2024 Chief Complaint Postoperative History of Present Illness This patient 73-year-old male with history of obesity and diabetes who on 01/20/2024, patient underwent a robotically assisted laparoscopic approach to repair his umbilical hernia. Postoperatively, patient had considerable amount of complaints of mid abdominal pain, was also noted to have persistent relative hypoxia requiring oxygen supplementation to maintain his saturations greater than 90%. Patient was observed for several hours in recovery room and failed to resolve, he did remain somewhat lethargic but also had complaints of pain and generalized weakness. Patient was admitted to [facility] overnight. Postoperative day #1, patient remained afebrile and hemodynamically stable overnight, slightly tachycardic with heart rate running around 100s. Patient did continue to require significant oxygen supplement overnight and eventually required 50% mask to keep his saturations above 90. Stat CT of the ab domen/pelvis was completed with radiology impression showing findings consistent with perforated proximal and possibly distal duodenum. Consider perforated ulcer. Associated free air and free fluid in the peritoneal and retroperitoneal cavities. Findings above consistent with subcutaneous periumbili bg/infraumbilical abscess. Critical findings were reported, patient was transferred emergently to [facility] for further evaluation. Patient went directly to the SICU. Please see patient's medical record for further information. Patient did require intubation once received in SICU at [facility]. Patient was tachycardic, tachypneic, having ongoing abdominal pain. Review of Systems All other pertinent positives and negatives are present in the HPI. All other systems are reviewed as negative unless otherwise previously mentioned Physical Exam Vitals and Measurements T: 38.3 C (Axillary) HR: 105 (Apical) RR: 32 BP: 130/95 SpO2: 95% HT: 177.8 cm WT: 127.1 kg BMI: 40.21 Weight Dosing Weight: 127.1 kg (01/21/24) Dosing Weight: 127.1 kg (01/21/24) General: Awake and alert, tachypneic, tachycardic. Able to answer questions and speak in full sentences. Supine in bed in the SICU. HEENT: Mucous membranes moist and pink. Sclerae anicteric. PERRLA. NG tube present. Heart: Regular rate and rhythm tachycardic. S1-S2 are present. Lungs: Chest rise symmetrical. Respirations slightly labored. Clear to auscultation bilaterally. Abdomen: Abdomen large, rounded, peritonitic. Erythema and induration noted around the umbilicus and just below the umbilicus extending into the peritoneum. Extremities: Freely moving. Skin: Normal color for ethnicity. No pallor or diaphoresis. No jaundice. Patient does have a red rash noted on his right arm, trunk. Psychiatric: Calm and cooperative. Lab Results No 36 Hour Lab Data Imaging Results and Diagnostics (01/21/2024 10:[address] Abdomen/Pelvis w/o Contrast) IMPRESSION: Findings above consistent with perforated proximal and possibly distal duodenum. Consider perforated ulcer. Associated free air and free fluid in the peritoneal and retroperitoneal cavities. Findings above consistent subcutaneous periumbilical/infraumbilical abscess. Cholelithiasis. Marked gallbladder wall thickening/edema may be reactive in the setting of hepatic dysfunction or more likely associated with the above described duodenal pathology. Cirrhotic morphology of the liver. Small right and trace left pleural effusion with overlying consolidation/compressive atelectasis [1] (01/21/2024 11:53 EDT XR Abdomen AP) IMPRESSION: Enteric tube side-port projects just above the GE junction and advancement by approximately 6 cm is recommended. [2] Assessment/Plan Orders: XR Upper GI(Upper GI), 01/21/24 13:12:00 EDT, 01/21/24 13:12:00 EDT, Stat, RULE OUT Gastric Perf, Use water-soluble contrast through the NG tube, Wt k, [facility] 73-year-old male with significant past medical history as previously described. He is postoperativeday #1 following a robotically assisted laparoscopic umbilical hernia repair who required transfer to [facility] due to respiratory distress and acute abdomen. Patient developed severe postoperative pain, abdominal wall distended, firm, hypoactive bowel sounds, tender to palpation. Areas of erythema and induration noted at umbilicus and just below eye umbilicus extending towards perineum. Patient required intubation once he was received at [facility] SICU. Will order stat upper GI with Gastrografin to evaluate possible perforated Duodenal ulcer. Further recommendations per Dr. Bowman, please see his addendum to follow. Problem List/Past Medical History Ongoing DM type 2, goal HbA1c < 7.5% Hernia centeral/midline, ventricle (large) Hernia, umbilical History of basal cell carcinoma (BCC) of skin, nose History of COVID-19 History of ventral hernia HTN, goal below 140/90 Hyperlipidemia LDL goal <100 Hypothyroidism in adult Increased BMI Increased BMI (body mass index) Laceration of skin of right hand Medicare annual wellness visit, subsequent Non-smoker Risk and functional assessment Screening for abdominal aortic aneurysm Screening for cardiovascular condition Screening for colorectal cancer Screening for glaucoma Screening for prostate cancer Vitamin D deficiency Historical Basal cell carcinoma of nose COVID-19 virus infection Overweight Procedure/Surgical History Hernia repair: 01/20/24 Colonoscopy: 09/29/08 Surgery Surgery Hernia Medications Home Medications (12) Active amLODIPine 5 mg oral tablet 5 mg = 1 tab(s), Oral, qDay atorvastatin 20 mg oral tablet 20 mg = 1 tab(s), Oral, qDay Farxiga 10 mg oral tablet 10 mg = 1 tab(s), Oral, qDay HumaLOG Mix 50/50 KwikPen 3 mL PEN 15 unit(s), Subcutaneous, BID levothyroxine 25 mcg (0.025 mg) oral tablet 50 mcg = 2 tab(s), Oral, qDay losartan 100 mg oral tablet 100 mg = 1 tab(s), Oral, qDay MetFORMIN (Eqv-Glucophage XR) 500 mg oral tablet, EXTENDED RELEASE 1,000 mg = 2 tab(s), Oral, BID metoprolol succinate 25 mg oral TABLET extended release 25 mg = 1 tab(s), Oral, qDay Trinity 325- 5 mg oral tablet 1 tab(s), PRN, Oral, q4h Ozempic 4 mg/3 mL (1 mg dose) subcutaneous solution 1 mg, Subcutaneous, qWeek Vitamin D (3) 45 units oral capsule Vitamin D with Minerals oral tablet 1 tab(s), Oral, qDay Allergies NKA Social History Alcohol Use: Current. Type: Liquor. Frequency: Daily. Has alcohol use interfered with work or home life: No., 01/20/2024 Home/Environment Living situation: Home/Independent. Domestic Concerns: None. Lives In: Multilevel home. Spouse Name: JESSICA. Marital Status: ., 01/17/2024 Nutrition/Health Type of diet: Diabetic. Caffeine intake amount: Pop. Eating Difficulties None., 01/20/2024 Substance Abuse Use: Never., 09/29/2018 Tobacco Nicotine Use: Former smoker, quit more than 30 days ago. Type: Cigarettes. Number of years: 30., 01/17/2024 Family History Heart disease: Father. Hodgkin disease: Sister. Hypertension: Mother and Father. Stroke: Sister. Health Status Family Member(s) Immunizations pneumococcal 13-valent conjugate vaccine: 0.5 unknown unit (07/12/17) pneumococcal 23-valent vaccine(Pneumovax: 0 unknown unit (12/22/15) SARS-CoV-2 (COVID-19) Ad26 vaccine: 0.5 unknown unit (06/09/20) SARS-CoV-2 mRNA (tozinameran) vaccine: 0.3 unknown unit (02/25/21) tetanus/diphth/pertuss (Tdap) adult/adol: 0.5 unknown unit (10/13/22) zoster vaccine live: 0 unknown unit (01/21/16) Code Status Code Status - Ordered -- 01/21/24 13:11:00 EDT, Full Code, Constant Order [1] CT Abdomen/Pelvis w/o Contrast; HARJEET OLIVEIRA MD 01/21/2024 10:54 EDT [2] XR Abdomen AP; JACOB QUINTEROS MD 01/21/2024 11:53 EDT Digitally Signed by ARIANA HERNANDEZ on 01/21/2024 01:38 PM [id number] Critical care medicine Consult note Date of Service 01/21/2024 Reason for Consultation Medical management in the SICU Referring Physician Dr. Bowman History of Present Illness 73-year-old male with a history of hypertension, diabetes mellitus, ALICIA on BiPAP, morbid obesity, dyslipidemia, hypothyroidism, former smoker (quit 15 years ago), daily alcohol use (2 shots of bourbon a day) who was transferred here from [facility]. He underwent robotic assisted umbilical hernia repair on 01/20/[address] Bowman. Postop, he had persistent abdominal pain and hypoxia requiring oxygen so he was admitted to the hospital overnight. Overnight, oxygen requirements increased from 5 L nasal cannula to 55% Ventimask, he developed a whole-body rash and was given Benadryl and had decreased urinary output with increased abdominal distention. He was given Farxiga, ibuprofen 800 mg IV every 6 hours. IV fluids were stopped and he was administered 40 mg IV Lasix. Laboratory data this morning showed an acute kidney injury with a BUN 37,creatinine 1.9, bicarb 20, anion gap acidosis. Chest x-ray this morning showed mild bibasilar subsegmental atelectasis. CT abdomen pelvis showed findings consistent with perforated proximal and possibly distal duodenum, possible perforated ulcer with associated free air and free fluid in the peritoneal and retroperitoneal cavities. In addition, there is concern for subcutaneous periumbilical/infraumbilical abscess. NG tube was placed and drained 700 mL. He was transferred to [place] surgical intensive care unit for further evaluation and monitoring. Upon arrival, he was tachypneic with respira tory rate in the 30s, hypoxic 92% on 55% Ventimask. His abdomen distended, firm, and umbilical siteis indurated, erythematous with palpable crepitus. Shortly after arrival, he was intubated for increased work of breathing and hypoxic respiratory failure. Review of Systems Review of systems deferred as patient is in significant respiratory distress requiring intubation Physical Exam Vitals and Measurements T: 38.3 C (Axillary) HR: 114 (Monitored) RR: 22 (Total) RR: 0 (Spontaneous) BP: 143/78 SpO2: 100% HT: 177.8 cm WT: 127.1 kg BMI: 40.21 Weight Dosing Weight: 127.1 kg (01/21/24) Dosing Weight: 127.1 kg (01/21/24) General: Awake, alert, tachypneic in respiratory distress Head: Normocephalic, atraumatic ENT: PERRLA, eyes: Sclera nonicteric, oral: Mucous membranes dry Neck: Supple, no JVD Cardiac: Tachycardic, normal S1-S2, no murmur, rubs, or gallops Respiratory: Lungs clear, resps easy, nonlabored Abdomen: Obese, round, distended, firm, multiple laparoscopic sites noted, skin around umbilical area noted to be erythematous, indurated with palpable crepitus, skin around abdomen mottled Musculoskeletal: No joint deformities, no muscle tenderness Extremities: 2+ pulses, no edema Neurological: A&Ox3, no focal deficits Skin: Cool, dry, diffuse red rash noted to abdominal area and bilateral upper extremities. Hives noted to bilateral thighs and knees Lab Results Labs from [facility] 01/20: WBC 4.4 Hemoglobin 17.0 Hematocrit 52.0 Platelets 248 Glucose 341 Sodium 138 Potassium 4.9 Chloride 102 Bicarb 20 BUN 37 Creatinine 1.95 Imaging Results and Diagnostics 01/21/2024 07:59 EDT XR Chest 1 View IMPRESSION: 1. Mild bibasilar subsegmental atelectasis. 2. Possible small pleural effusions. 01/21/2024 10:[address] Abdomen/Pelvis w/o Contrast IMPRESSION: Findings above consistent with perforated proximal and possibly distal duodenum. Consider perforated ulcer. Associated free air and free fluid in the peritoneal and retroperitoneal cavities. Findings above consistent subcutaneous periumbilical/infraumbilical abscess. Cholelithiasis. Marked gallbladder wall thickening/edema may be reactive in the setting of hepatic dysfunction or more likely associated with the above described duodenal pathology. Cirrhotic morphology of the liver. Small right and trace left pleural effusion with overlying consolidation/compressive atelectasis. 01/21/2024 11:53 EDT XR Abdomen AP IMPRESSION: Enteric tube side-port projects just above the GE junction and advancement by approximately 6 cm is recommended. Assessment/Plan Assessment: 1. Acute respiratory failure on mechanical ventilation 2. Pneumoperitoneum with concern for perforated duodenal ulcer and subcutaneous periumbilical/infraumbilical abscess. 3. Umbilical hernia status post robotic assisted umbilical hernia preperitoneal repair with mesh (01/20/2024) 4. Acute kidney injury 5. High anion gap metabolic acidosis 6. Hypertension, diabetes mellitus, ALICIA on BiPAP, dyslipidemia, hypothyroidism, morbid obesity, daily alcohol use, former smoker Plan: 1. Admit patient to surgical intensive care unit. Place patient on mechanical ventilation bundle with VAP prevention, sedation and glycemic protocol. Will utilize propofol along with intermittent fentanyl for sedation. 2. Keep NG tube in place to low intermittent suction. Further recommendations per general surgery. 3. Check laboratory data now including CBC, CMP, magnesium, phosphorus, lactic acid, troponin and arterial blood gas. 4. Start IV fluids LR at 125 mL/h. 5. Check blood cultures and start Zosyn 3.375 g IV every 8 hours. 6. Discontinue Farxiga and ibuprofen. 7. Protonix 40 mg IV twice daily for GI prophylaxis 8. Start thiamine 100 mg IV daily and folic acid 1 mg IV daily as patient is a daily alcohol user. 9. SCDs for DVT prophylaxis CODE STATUS full code Plan of care discussed with Dr. Elizabeth Guerra MD. Please see his addendum below for further details. Problem List/Past Medical History Ongoing DM type 2, goal HbA1c < 7.5% Hernia centeral/midline, ventricle (large) Hernia, umbilical History of basal cell carcinoma (BCC) of skin, nose History of COVID-19 History of ventral hernia HTN, goal below 140/90 Hyperlipidemia LDL goal <100 Hypothyroidism in adult Increased BMI Increased BMI (body mass index) Laceration of skin of right hand Medicare annual wellness visit, subsequent Non-smoker Risk and functional assessment Screening for abdominal aortic aneurysm Screening for cardiovascular condition Screening for colorectal cancer Screening for glaucoma Screening for prostate cancer Vitamin D deficiency Historical Basal cell carcinoma of nose COVID-19 virus infection Overweight Hypertension Diabetes mellitus Morbid obesity Dyslipidemia ALICIA on BiPAP Hypothyroidism Procedure/Surgical History Hernia repair: 01/20/24 Colonoscopy: 09/29/08 Surgery Surgery Hernia Medications Inpatient Dextrose, 25 gram(s)= 50 mL, IV Push, AsDirected, PRN Dextrose 50% IV Push, 12.5 gram(s)= 25 mL, IV Push, AsDirected, PRN folic acid, 1 mg, IV Piggyback, qDay HumuLIN R, sliding scale insulin, Subcutaneous, q4h, PRN Insulin Regular for IV 100 unit(s) + NS Premix Diluent 100 mL LR 1000 mL, 1000 mL, Intravenous Peridex 0.12% oral rinse liquid, 15 mL, Swish & Spit, QID Propofol for IV 1,000 mg [10 mcg/kg/min] + IV Premix Diluent titrate 100 mL Protonix IV Push, 40 mg, IV Push, BIDAC Puralube ophth solution, 1 drop(s), Eyes, both, q8h Puralube ophth solution, 1 drop(s), Eyes, both, AsDirected, PRN Puralube ophthalmic ointment, 1 mendy, Eyes, both, q8h Puralube ophthalmic ointment, 1 mendy, Eyes, both, AsDirected, PRN Sublimaze, 25 mcg= 0.5 mL, IV Push, q15min, PRN thiamine, 100 mg= 1 mL, IV Push, qDay Zosyn, 3.375 gram(s)= 50 mL, IV Piggyback, q8h Home amLODIPine 5 mg oral tablet, 5 mg= 1 tab(s), Oral, qDay, 3 refills, Refill needed, still taking (AMB only) atorvastatin 20 mg oral tablet, 20 mg= 1 tab(s), Oral, qDay, 1 refills Farxiga 10 mg oral tablet, 10 mg= 1 tab(s), Oral, qDay, 3 refills, Refill needed, still taking (AMBonly) HumaLOG Mix 50/50 KwikPen 3 mL PEN, 15 unit(s), Subcutaneous, BID levothyroxine 25 mcg (0.025 mg) oral tablet, 50 mcg= 2 tab(s), Oral, qDay, 1 refills losartan 100 mg oral tablet, 100 mg= 1 tab(s), Oral, qDay, 1 refills MetFORMIN (Eqv-Glucophage XR) 500 mg oral tablet, EXTENDED RELEASE, 1000 mg= 2 tab(s), Oral, BID, 2refills metoprolol succinate 25 mg oral TABLET extended release, 25 mg= 1 tab(s), Oral, qDay, 1 refills Trinity 325- 5 mg oral tablet, 1 tab(s), Oral, q4h, PRN Ozempic 4 mg/3 mL (1 mg dose) subcutaneous solution, 1 mg, Subcutaneous, qWeek, 1 refills Vitamin D (3) 45 units oral capsule Vitamin D with Minerals oral tablet, 1 tab(s), Oral, qDay, Refill needed, still taking (AMB only) Allergies NKA Social History Alcohol Use: Current. Type: Liquor. Frequency: Daily. Has alcohol use interfered with work or home life: No., 01/20/2024 Home/Environment Living situation: Home/Independent. Domestic Concerns: None. Lives In: Multilevel home. Spouse Name: JESSICA. Marital Status: ., 01/17/2024 Nutrition/Health Type of diet: Diabetic. Caffeine intake amount: Pop. Eating Difficulties None., 01/20/2024 Substance Abuse Use: Never., 09/29/2018 Tobacco Nicotine Use: Former smoker, quit more than 30 days ago. Type: Cigarettes. Number of years: 30., 01/17/2024 Former smoker, quit approximately 15 years ago Daily alcohol use, 2 shots of bourbon a day Family History Heart disease: Father. Hodgkin disease: Sister. Hypertension: Mother and Father. Stroke: Sister. Health Status Family Member(s) Immunizations pneumococcal 13-valent conjugate vaccine: 0.5 unknown unit (07/12/17) pneumococcal 23-valent vaccine(Pneumovax: 0 unknown unit (12/22/15) SARS-CoV-2 (COVID-19) Ad26 vaccine: 0.5 unknown unit (06/09/20) SARS-CoV-2 mRNA (tozinameran) vaccine: 0.3 unknown unit (02/25/21) tetanus/diphth/pertuss (Tdap) adult/adol: 0.5 unknown unit (10/13/22) zoster vaccine live: 0 unknown unit (01/21/16) Digitally Signed by TOO TEJEDA on 01/21/2024 04:04 PM [facility] [id number] Evaluation + Plan noteExtracted from: Title:History and Physical Author:ARIANA HERNANDEZ APRN-UPHOLSTERY INSTRUCTOR Date:01/21/24 Orders: XR Upper GI(Upper GI), 01/21/24 13:12:00 EDT, 01/21/24 13:12:00 EDT, Stat, RULE OUT Gastric Perf, Use water-soluble contrast through the NG tube, Wt k, [facility] 73-year-old male with significant past medical history as previously described. He is postoperative day #1 following a robotically assisted laparoscopic umbilical hernia repair who required transfer to [facility] due to respiratory distress and acute abdomen. Patient developed severe postoperative pain, abdominal wall distended, firm, hypoactive bowel sounds, tender to palpation. Areas of erythema and induration noted at umbilicus and just below eye umbilicus extending towards perineum. Patient required intubation once he was received at [facility] SICU. Will order stat upper GI with Gastrografin to evaluate possible perforated Duodenal ulcer. Further recommendations per Dr. Bowman, please see his addendum to follow. Addendum by SALVADOR BOWMAN on January 21, 2024 18:03:12 EDT Surgery attending note: I evaluated the patient at approximately 5:15 PM my first available time to see him after getting out of surgery. I reviewed his CT scan from this morning with the radiologist. I am not at all convinced that the patient has a perforated duodenum as well as read on the CT scan but that reading was without the knowledge that the patient was postop day 1 from a robotic laparoscopic procedure. However the patient's clinical condition has deteriorated overnight significantly. He was significantly hypovolemic and possibly septic. Of major concern is the drop in white blood count down to 2.5 the significant lactic acidosis the worsening acute kidney injury with oliguria and the increasing redness of his abdomen, as well as the worsening respiratory failure requiring intubation and now is on the ventilator. At this point his abdomen is very difficult to assess because he is heavily sedated and intubated. However with the entire constellation of signs and abnormal labs I believe that we are obligated to rule out the possibility of intra-abdominal sepsis due to some unexpected perforation or iatrogenic injury and therefore recommend that he be taken back to surgery urgently for at least a laparoscopic examination of his abdomen which can be done through the trocar sites in place from yesterday's surgery. Hopefully the laparoscopic exam can answer the question whether there is signs of an intra-abdominal perforated viscus or intra-abdominal sepsis. If so then depending on the findings we will try robotic repair versus open exploratory laparotomy if needed. I have discussed all this with the patient's and informed her of the significant multiple potential complications and morbidity that may accompany this. Have discussed with the anesthesia team the plan. Future Appointments Appointment Date:06/30/2024 03:20:00 PM Scheduled Provider:KELLEY HERNANDEZ APRN - UPHOLSTERY INSTRUCTOR Location:[facility] Appointment Type: OV Follow Up Future Scheduled Tests Laboratory* Prostate Specific Antigen 06/30/24 * Thyroid Stimulating Hormone 06/30/24 * Thyroid Stimulating Hormone 01/18/23 * Thyroid Stimulating Hormone 01/24/24 * Thyroid Stimulating Hormone 07/19/23 * Free T4 06/30/24 * Free T4 01/18/23 * Free T4 01/24/24 * Free T4 07/19/23 * A1C Hemoglobin 06/30/24 * A1C Hemoglobin 01/18/23 * A1C Hemoglobin 01/24/24 * A1C Hemoglobin 07/19/23 * Complete Blood Count 07/19/23 * Free T3 01/18/23 * Lipid Profile 06/30/24 * Albumin/Creatinine Ratio, Random Urine 06/30/24 * Albumin/Creatinine Ratio, Random Urine 01/18/23 * Albumin/Creatinine Ratio, Random Urine 01/24/24 * Albumin/Creatinine Ratio, Random Urine 07/19/23 * Vitamin D Level 06/30/24 * Vitamin D Level 07/19/23 * Complete Metabolic Panel 06/30/24 * Complete Metabolic Panel 01/18/23 * Complete Metabolic Panel 01/24/24 * Complete Metabolic Panel 07/19/23 [facility] 10-22-2024 History and physical note Date of Service 01/21/2024 Chief Complaint Postoperative History of Present Illness This patient 73-year-old male with history of obesity and diabetes who on 01/20/2024, patient underwent a robotically assisted laparoscopic approach to repair his umbilical hernia. Postoperatively, patient had considerable amount of complaints of mid abdominal pain, was also noted to have persistent relative hypoxia requiring oxygen supplementation to maintain his saturations greater than 90%. Patient was observed for several hours in recovery room and failed to resolve, he did remain somewhat lethargic but also had complaints of pain and generalized weakness. Patient was admitted to [facility] overnight. Postoperative day #1, patient remained afebrile and hemodynamically stable overnight, slightly tachycardic with heart rate running around 100s. Patient did continue to require significant oxygen supplement overnight and eventually required 50% mask to keep his saturations above 90. Stat CT of the ab domen/pelvis was completed with radiology impression showing findings consistent with perforated proximal and possibly distal duodenum. Consider perforated ulcer. Associated free air and free fluid in the peritoneal and retroperitoneal cavities. Findings above consistent with subcutaneous periumbili bg/infraumbilical abscess. Critical findings were reported, patient was transferred emergently to [facility] for further evaluation. Patient went directly to the SICU. Please see patient's medical record for further information. Patient did require intubation once received in SICU at [facility]. Patient was tachycardic, tachypneic, having ongoing abdominal pain. Review of Systems All other pertinent positives and negatives are present in the HPI. All other systems are reviewed as negative unless otherwise previously mentioned Physical Exam Vitals and Measurements T: 38.3 C (Axillary) HR: 105 (Apical) RR: 32 BP: 130/95 SpO2: 95% HT: 177.8 cm WT: 127.1 kg BMI: 40.21 Weight Dosing Weight: 127.1 kg (01/21/24) Dosing Weight: 127.1 kg (01/21/24) General: Awake and alert, tachypneic, tachycardic. Able to answer questions and speak in full sentences. Supine in bed in the SICU. HEENT: Mucous membranes moist and pink. Sclerae anicteric. PERRLA. NG tube present. Heart: Regular rate and rhythm tachycardic. S1-S2 are present. Lungs: Chest rise symmetrical. Respirations slightly labored. Clear to auscultation bilaterally. Abdomen: Abdomen large, rounded, peritonitic. Erythema and induration noted around the umbilicus and just below the umbilicus extending into the peritoneum. Extremities: Freely moving. Skin: Normal color for ethnicity. No pallor or diaphoresis. No jaundice. Patient does have a red rash noted on his right arm, trunk. Psychiatric: Calm and cooperative. Lab Results No 36 Hour Lab Data Imaging Results and Diagnostics (01/21/2024 10:[address] Abdomen/Pelvis w/o Contrast) IMPRESSION: Findings above consistent with perforated proximal and possibly distal duodenum. Consider perforated ulcer. Associated free air and free fluid in the peritoneal and retroperitoneal cavities. Findings above consistent subcutaneous periumbilical/infraumbilical abscess. Cholelithiasis. Marked gallbladder wall thickening/edema may be reactive in the setting of hepatic dysfunction or more likely associated with the above described duodenal pathology. Cirrhotic morphology of the liver. Small right and trace left pleural effusion with overlying consolidation/compressive atelectasis [1] (01/21/2024 11:53 EDT XR Abdomen AP) IMPRESSION: Enteric tube side-port projects just above the GE junction and advancement by approximately 6 cm is recommended. [2] Assessment/Plan Orders: XR Upper GI(Upper GI), 01/21/24 13:12:00 EDT, 01/21/24 13:12:00 EDT, Stat, RULE OUT Gastric Perf, Use water-soluble contrast through the NG tube, Wt k, [facility] 73-year-old male with significant past medical history as previously described. He is postoperativeday #1 following a robotically assisted laparoscopic umbilical hernia repair who required transfer to [facility] due to respiratory distress and acute abdomen. Patient developed severe postoperative pain, abdominal wall distended, firm, hypoactive bowel sounds, tender to palpation. Areas of erythema and induration noted at umbilicus and just below eye umbilicus extending towards perineum. Patient required intubation once he was received at [facility] SICU. Will order stat upper GI with Gastrografin to evaluate possible perforated Duodenal ulcer. Further recommendations per Dr. Bowman, please see his addendum to follow. Problem List/Past Medical History Ongoing DM type 2, goal HbA1c < 7.5% Hernia centeral/midline, ventricle (large) Hernia, umbilical History of basal cell carcinoma (BCC) of skin, nose History of COVID-19 History of ventral hernia HTN, goal below 140/90 Hyperlipidemia LDL goal <100 Hypothyroidism in adult Increased BMI Increased BMI (body mass index) Laceration of skin of right hand Medicare annual wellness visit, subsequent Non-smoker Risk and functional assessment Screening for abdominal aortic aneurysm Screening for cardiovascular condition Screening for colorectal cancer Screening for glaucoma Screening for prostate cancer Vitamin D deficiency Historical Basal cell carcinoma of nose COVID-19 virus infection Overweight Procedure/Surgical History Hernia repair: 01/20/24 Colonoscopy: 09/29/08 Surgery Surgery Hernia Medications Home Medications (12) Active amLODIPine 5 mg oral tablet 5 mg = 1 tab(s), Oral, qDay atorvastatin 20 mg oral tablet 20 mg = 1 tab(s), Oral, qDay Farxiga 10 mg oral tablet 10 mg = 1 tab(s), Oral, qDay HumaLOG Mix 50/50 KwikPen 3 mL PEN 15 unit(s), Subcutaneous, BID levothyroxine 25 mcg (0.025 mg) oral tablet 50 mcg = 2 tab(s), Oral, qDay losartan 100 mg oral tablet 100 mg = 1 tab(s), Oral, qDay MetFORMIN (Eqv-Glucophage XR) 500 mg oral tablet, EXTENDED RELEASE 1,000 mg = 2 tab(s), Oral, BID metoprolol succinate 25 mg oral TABLET extended release 25 mg = 1 tab(s), Oral, qDay Trinity 325- 5 mg oral tablet 1 tab(s), PRN, Oral, q4h Ozempic 4 mg/3 mL (1 mg dose) subcutaneous solution 1 mg, Subcutaneous, qWeek Vitamin D (3) 45 units oral capsule Vitamin D with Minerals oral tablet 1 tab(s), Oral, qDay Allergies NKA Social History Alcohol Use: Current. Type: Liquor. Frequency: Daily. Has alcohol use interfered with work or home life: No., 01/20/2024 Home/Environment Living situation: Home/Independent. Domestic Concerns: None. Lives In: Multilevel home. Spouse Name: JESSICA. Marital Status: ., 01/17/2024 Nutrition/Health Type of diet: Diabetic. Caffeine intake amount: Pop. Eating Difficulties None., 01/20/2024 Substance Abuse Use: Never., 09/29/2018 Tobacco Nicotine Use: Former smoker, quit more than 30 days ago. Type: Cigarettes. Number of years: 30., 01/17/2024 Family History Heart disease: Father. Hodgkin disease: Sister. Hypertension: Mother and Father. Stroke: Sister. Health Status Family Member(s) Immunizations pneumococcal 13-valent conjugate vaccine: 0.5 unknown unit (07/12/17) pneumococcal 23-valent vaccine(Pneumovax: 0 unknown unit (12/22/15) SARS-CoV-2 (COVID-19) Ad26 vaccine: 0.5 unknown unit (06/09/20) SARS-CoV-2 mRNA (tozinameran) vaccine: 0.3 unknown unit (02/25/21) tetanus/diphth/pertuss (Tdap) adult/adol: 0.5 unknown unit (10/13/22) zoster vaccine live: 0 unknown unit (01/21/16) Code Status Code Status - Ordered -- 01/21/24 13:11:00 EDT, Full Code, Constant Order [1] CT Abdomen/Pelvis w/o Contrast; HARJEET OLIVEIRA MD 01/21/2024 10:54 EDT [2] XR Abdomen AP; JACOB QUINTEROS MD 01/21/2024 11:53 EDT Digitally Signed by ARIANA HERNANDEZ on 01/21/2024 01:38 PM [id number] Critical care medicine Consult note Date of Service 01/21/2024 Reason for Consultation Medical management in the SICU Referring Physician Dr. Bowman History of Present Illness 73-year-old male with a history of hypertension, diabetes mellitus, ALICIA on BiPAP, morbid obesity, dyslipidemia, hypothyroidism, former smoker (quit 15 years ago), daily alcohol use (2 shots of bourbon a day) who was transferred here from [facility]. He underwent robotic assisted umbilical hernia repair on 01/20/[address] Bowman. Postop, he had persistent abdominal pain and hypoxia requiring oxygen so he was admitted to the hospital overnight. Overnight, oxygen requirements increased from 5 L nasal cannula to 55% Ventimask, he developed a whole-body rash and was given Benadryl and had decreased urinary output with increased abdominal distention. He was given Farxiga, ibuprofen 800 mg IV every 6 hours. IV fluids were stopped and he was administered 40 mg IV Lasix. Laboratory data this morning showed an acute kidney injury with a BUN 37,creatinine 1.9, bicarb 20, anion gap acidosis. Chest x-ray this morning showed mild bibasilar subsegmental atelectasis. CT abdomen pelvis showed findings consistent with perforated proximal and possibly distal duodenum, possible perforated ulcer with associated free air and free fluid in the peritoneal and retroperitoneal cavities. In addition, there is concern for subcutaneous periumbilical/infraumbilical abscess. NG tube was placed and drained 700 mL. He was transferred to [facility] surgical intensive care unit for further evaluation and monitoring. Upon arrival, he was tachypneic with respira tory rate in the 30s, hypoxic 92% on 55% Ventimask. His abdomen distended, firm, and umbilical siteis indurated, erythematous with palpable crepitus. Shortly after arrival, he was intubated for increased work of breathing and hypoxic respiratory failure. Review of Systems Review of systems deferred as patient is in significant respiratory distress requiring intubation Physical Exam Vitals and Measurements T: 38.3 C (Axillary) HR: 114 (Monitored) RR: 22 (Total) RR: 0 (Spontaneous) BP: 143/78 SpO2: 100% HT: 177.8 cm WT: 127.1 kg BMI: 40.21 Weight Dosing Weight: 127.1 kg (01/21/24) Dosing Weight: 127.1 kg (01/21/24) General: Awake, alert, tachypneic in respiratory distress Head: Normocephalic, atraumatic ENT: PERRLA, eyes: Sclera nonicteric, oral: Mucous membranes dry Neck: Supple, no JVD Cardiac: Tachycardic, normal S1-S2, no murmur, rubs, or gallops Respiratory: Lungs clear, resps easy, nonlabored Abdomen: Obese, round, distended, firm, multiple laparoscopic sites noted, skin around umbilical area noted to be erythematous, indurated with palpable crepitus, skin around abdomen mottled Musculoskeletal: No joint deformities, no muscle tenderness Extremities: 2+ pulses, no edema Neurological: A&Ox3, no focal deficits Skin: Cool, dry, diffuse red rash noted to abdominal area and bilateral upper extremities. Hives noted to bilateral thighs and knees Lab Results Labs from [facility] 01/20: WBC 4.4 Hemoglobin 17.0 Hematocrit 52.0 Platelets 248 Glucose 341 Sodium 138 Potassium 4.9 Chloride 102 Bicarb 20 BUN 37 Creatinine 1.95 Imaging Results and Diagnostics 01/21/2024 07:59 EDT XR Chest 1 View IMPRESSION: 1. Mild bibasilar subsegmental atelectasis. 2. Possible small pleural effusions. 01/21/2024 10:[address] Abdomen/Pelvis w/o Contrast IMPRESSION: Findings above consistent with perforated proximal and possibly distal duodenum. Consider perforated ulcer. Associated free air and free fluid in the peritoneal and retroperitoneal cavities. Findings above consistent subcutaneous periumbilical/infraumbilical abscess. Cholelithiasis. Marked gallbladder wall thickening/edema may be reactive in the setting of hepatic dysfunction or more likely associated with the above described duodenal pathology. Cirrhotic morphology of the liver. Small right and trace left pleural effusion with overlying consolidation/compressive atelectasis. 01/21/2024 11:53 EDT XR Abdomen AP IMPRESSION: Enteric tube side-port projects just above the GE junction and advancement by approximately 6 cm is recommended. Assessment/Plan Assessment: 1. Acute respiratory failure on mechanical ventilation 2. Pneumoperitoneum with concern for perforated duodenal ulcer and subcutaneous periumbilical/infraumbilical abscess. 3. Umbilical hernia status post robotic assisted umbilical hernia preperitoneal repair with mesh (01/20/2024) 4. Acute kidney injury 5. High anion gap metabolic acidosis 6. Hypertension, diabetes mellitus, ALICIA on BiPAP, dyslipidemia, hypothyroidism, morbid obesity, daily alcohol use, former smoker Plan: 1. Admit patient to surgical intensive care unit. Place patient on mechanical ventilation bundle with VAP prevention, sedation and glycemic protocol. Will utilize propofol along with intermittent fentanyl for sedation. 2. Keep NG tube in place to low intermittent suction. Further recommendations per general surgery. 3. Check laboratory data now including CBC, CMP, magnesium, phosphorus, lactic acid, troponin and arterial blood gas. 4. Start IV fluids LR at 125 mL/h. 5. Check blood cultures and start Zosyn 3.375 g IV every 8 hours. 6. Discontinue Farxiga and ibuprofen. 7. Protonix 40 mg IV twice daily for GI prophylaxis 8. Start thiamine 100 mg IV daily and folic acid 1 mg IV daily as patient is a daily alcohol user. 9. SCDs for DVT prophylaxis CODE STATUS full code Plan of care discussed with Dr. Elizabeth Guerra MD. Please see his addendum below for further details. Problem List/Past Medical History Ongoing DM type 2, goal HbA1c < 7.5% Hernia centeral/midline, ventricle (large) Hernia, umbilical History of basal cell carcinoma (BCC) of skin, nose History of COVID-19 History of ventral hernia HTN, goal below 140/90 Hyperlipidemia LDL goal <100 Hypothyroidism in adult Increased BMI Increased BMI (body mass index) Laceration of skin of right hand Medicare annual wellness visit, subsequent Non-smoker Risk and functional assessment Screening for abdominal aortic aneurysm Screening for cardiovascular condition Screening for colorectal cancer Screening for glaucoma Screening for prostate cancer Vitamin D deficiency Historical Basal cell carcinoma of nose COVID-19 virus infection Overweight Hypertension Diabetes mellitus Morbid obesity Dyslipidemia ALICIA on BiPAP Hypothyroidism Procedure/Surgical History Hernia repair: 01/20/24 Colonoscopy: 09/29/08 Surgery Surgery Hernia Medications Inpatient Dextrose, 25 gram(s)= 50 mL, IV Push, AsDirected, PRN Dextrose 50% IV Push, 12.5 gram(s)= 25 mL, IV Push, AsDirected, PRN folic acid, 1 mg, IV Piggyback, qDay HumuLIN R, sliding scale insulin, Subcutaneous, q4h, PRN Insulin Regular for IV 100 unit(s) + NS Premix Diluent 100 mL LR 1000 mL, 1000 mL, Intravenous Peridex 0.12% oral rinse liquid, 15 mL, Swish & Spit, QID Propofol for IV 1,000 mg [10 mcg/kg/min] + IV Premix Diluent titrate 100 mL Protonix IV Push, 40 mg, IV Push, BIDAC Puralube ophth solution, 1 drop(s), Eyes, both, q8h Puralube ophth solution, 1 drop(s), Eyes, both, AsDirected, PRN Puralube ophthalmic ointment, 1 mendy, Eyes, both, q8h Puralube ophthalmic ointment, 1 mendy, Eyes, both, AsDirected, PRN Sublimaze, 25 mcg= 0.5 mL, IV Push, q15min, PRN thiamine, 100 mg= 1 mL, IV Push, qDay Zosyn, 3.375 gram(s)= 50 mL, IV Piggyback, q8h Home amLODIPine 5 mg oral tablet, 5 mg= 1 tab(s), Oral, qDay, 3 refills, Refill needed, still taking (AMB only) atorvastatin 20 mg oral tablet, 20 mg= 1 tab(s), Oral, qDay, 1 refills Farxiga 10 mg oral tablet, 10 mg= 1 tab(s), Oral, qDay, 3 refills, Refill needed, still taking (AMBonly) HumaLOG Mix 50/50 KwikPen 3 mL PEN, 15 unit(s), Subcutaneous, BID levothyroxine 25 mcg (0.025 mg) oral tablet, 50 mcg= 2 tab(s), Oral, qDay, 1 refills losartan 100 mg oral tablet, 100 mg= 1 tab(s), Oral, qDay, 1 refills MetFORMIN (Eqv-Glucophage XR) 500 mg oral tablet, EXTENDED RELEASE, 1000 mg= 2 tab(s), Oral, BID, 2refills metoprolol succinate 25 mg oral TABLET extended release, 25 mg= 1 tab(s), Oral, qDay, 1 refills Trinity 325- 5 mg oral tablet, 1 tab(s), Oral, q4h, PRN Ozempic 4 mg/3 mL (1 mg dose) subcutaneous solution, 1 mg, Subcutaneous, qWeek, 1 refills Vitamin D (3) 45 units oral capsule Vitamin D with Minerals oral tablet, 1 tab(s), Oral, qDay, Refill needed, still taking (AMB only) Allergies NKA Social History Alcohol Use: Current. Type: Liquor. Frequency: Daily. Has alcohol use interfered with work or home life: No., 01/20/2024 Home/Environment Living situation: Home/Independent. Domestic Concerns: None. Lives In: Multilevel home. Spouse Name: JESSICA. Marital Status: ., 01/17/2024 Nutrition/Health Type of diet: Diabetic. Caffeine intake amount: Pop. Eating Difficulties None., 01/20/2024 Substance Abuse Use: Never., 09/29/2018 Tobacco Nicotine Use: Former smoker, quit more than 30 days ago. Type: Cigarettes. Number of years: 30., 01/17/2024 Former smoker, quit approximately 15 years ago Daily alcohol use, 2 shots of bourbon a day Family History Heart disease: Father. Hodgkin disease: Sister. Hypertension: Mother and Father. Stroke: Sister. Health Status Family Member(s) Immunizations pneumococcal 13-valent conjugate vaccine: 0.5 unknown unit (07/12/17) pneumococcal 23-valent vaccine(Pneumovax: 0 unknown unit (12/22/15) SARS-CoV-2 (COVID-19) Ad26 vaccine: 0.5 unknown unit (06/09/20) SARS-CoV-2 mRNA (tozinameran) vaccine: 0.3 unknown unit (02/25/21) tetanus/diphth/pertuss (Tdap) adult/adol: 0.5 unknown unit (10/13/22) zoster vaccine live: 0 unknown unit (01/21/16) Digitally Signed by OTO TEJEDA on 01/21/2024 04:04 PM [id number] Note Discharge Instructions Thank you for allowing [facility] to assist you with your healthcare needs. The following is importantdischarge information regarding your hospital visit. Your Care Team KELLEY HERNANDEZ APRN, CNP Your Diagnosis Acute kidney injury Acute respiratory failure with hypoxia DM type 2, goal HbA1c < 7.5% HTN, goal below 140/90 Morbid obesity Sleep apnea What to do next Scheduled Follow-Up Appointments Appointment Type When With Where Contact Information StatusENDO OV 01/28/2024 03:30 PM LEV MOTA MD [facility] [address] [place] [address]- [phone] Confirmed GS OV Post Op 02/03/2024 03:00 PM SALVADOR WAGONER MD [facility] General Surgery [place] Confirmed PC OV Follow Up 06/30/2024 03:20 PM EDT KELLEY HERNANDEZ 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 GO TO THE EMERGENCY ROOM WITH ANY URGENT CONCERNS. The Following Activity and Diet Have Been Ordered for You Discharge Activity - Ordered -- Sexual [place] Restricted No bending, twisting, crawling or squatt, No shower or tub bath for 2 days; no driving for 5 days, no lifting >15 lbs, 01/20/24 12:08:00 EDT Discharge Diet - Ordered -- Follow the post-operative/post-procedure diet instructions provided by your physician's office.,01/20/24 12:08:00 EDT The Following Equipment Has Been Ordered for You Discharge Home Equipment Discharge Wound Care - Ordered -- Dressing Type: Dry sterile drsg, Remove dressing in two (2) days. Leave steristrips on until they fall off, 01/20/24 12:08:00 EDT The Following Treatments Have Been Ordered for You Discharge Labs No qualifying data available. Discharge Radiology No qualifying data available. Other Therapies No qualifying data available. Post Acute Orders No qualifying data available. Someone Will Contact You Regarding These Home Health Referrals No home referrals have been ordered for you. No one will call you. Allergies NKA Medications Please ask your primary doctor or pharmacist before taking any other medication not listed, including over the counter drugs, herbal medications, vitamins and or supplements as they may interact withyour home medications. What How Much When Why Instructions Last Dose Unchanged acetaminophen- hydrocodone (Trinity 325- 5 mg oral tablet) 1 tab(s) by mouth Every 4 hours as needed for Pain, scale 1-6 Acute post-operative pain Duration: 5 Days Pickup at [facility] Unchanged amLODIPine (amLODIPine 5 mg oral tablet) 1 tab(s) by mouth Once a day Unchanged atorvastatin (atorvastatin 20 mg oral tablet) 1 tab(s) by mouth Once a day Hyperlipidemia LDL goal <100 Duration: 90 Days Unchanged cholecalciferol (Vitamin D (3) 45 units oral capsule) Unchanged dapagliflozin (Farxiga 10 mg oral tablet) 1 tab(s) by mouth Once a day Unchanged insulin lispro-insulin lispro protamine (Humalog Mix) (HumaLOG Mix 50/ 50 KwikPen 3 mL PEN) 15 unit(s) Subcutaneous Two (2) times a day Unchanged levothyroxine (levothyroxine 25 mcg (0.025 mg) oral tablet) 2 tab(s) by mouth Once a day Hypothyroidism in adult Duration: 90 Days Unchanged losartan (losartan 100 mg oral tablet) 1 tab(s) by mouth Once a day HTN, goal below 140/90 Duration: 90 Days Unchanged metFORMIN (MetFORMIN (Eqv-Glucophage XR) 500 mg oral tablet, EXTENDED RELEASE) 2 tab(s) by mouth Two (2) times a day Unchanged metoprolol (metoprolol succinate 25 mg oral TABLET extended release) 1 tab(s) by mouth Once a day HTN, goal below 140/90 Duration: 90 Days Do not crush or chew (controlled release) Unchanged multivitamin with minerals (Vitamin D with Minerals oral tablet) 1 tab(s) by mouth Once a day Unchanged semaglutide (Ozempic 4 mg/ 3 mL (1 mg dose) subcutaneous solution) 1 Milligram Subcutaneous Every week Pharmacy Information [facility]: [address] [place], [place] [phone] Please take this list to your next doctor s visit. Bring all medications you take, including over the counter medications, herbals and other supplements with you to your doctor s visit. Patients and families are reminded to discard old lists and to update any records with all medication providers or retail pharmacies. Medication Leaflets bupivacaine liposome (bue FIONA a [place] LYE mart some) Exparel What is the most important information I should know about bupivacaine liposome? You may still feel numb or be unable to move the numbed area for up to 5 days after you are treatedwith bupivacaine liposome. What is bupivacaine liposome? Bupivacaine is an anesthetic (numbing medicine) that blocks nerve impulses in your body. Bupivacaine liposome is used as a local (in only one area) anesthetic to numb an area of your body for a minor surgery such as bunion removal or hemorrhoid surgery. Bupivacine liposome is also used as a nerve block after surgery on your shoulder or upper arm, to provide pain relief to the area. Bupivacaine may also be used for purposes not listed in this medication guide. What should I discuss with my healthcare provider before receiving bupivacaine liposome? You should not be treated with bupivacaine if you are allergic to it. Tell your doctor if you have ever had: an allergic reaction to any type of numbing medicine; liver disease; kidney disease; heart disease; a heart rhythm disorder; or seizures. It is not known whether this medicine will harm an unborn baby. Tell your doctor if you are . It may not be safe to breast-feed a baby while you are using this medicine. Ask your doctor about any risks. How is bupivacaine liposome given? Bupivacaine is given as an injection placed into an area near your surgical incision. You will receive this injection in a hospital or surgical setting. Bupivacaine liposome can have long-lasting or delayed effects. For at least 4 days (96 hours) afteryour surgery, tell any doctor or dentist who treats you that you recently received a bupivacaine liposome injection. Call your doctor if you have joint pain or stiffness, or weakness in any part of your body that occurs after your surgery, even months later. What happens if I miss a dose? Since bupivacaine liposome is used as a single dose, it does not have a daily dosing schedule. What happens if I overdose? Since this medication is given by a healthcare professional in a medical setting, an overdose is unlikely to occur. What should I avoid after receiving bupivacaine liposome? For at least 4 days (96 hours) after surgery, avoid using any pain or numbing medicines that contain lidocaine. This includes skin patches, sprays, creams, ointments, or gels applied to the skin. Follow your doctor's instructions. What are the possible side effects of bupivacaine liposome? Get emergency medical help if you have signs of an allergic reaction: hives, red rash, itching; sneezing, difficulty breathing; severe dizziness, vomiting; swelling of your face, lips, tongue, or throat. You will be watched closely after receiving bupivacaine liposome, to make sure you do not have a reaction to the medicine. Tell your caregivers at once if you have any of these signs of a serious side effect: ringing in your ears; drowsiness, feeling restless or anxious; feeling like you might pass out; speech or vision problems, a metallic taste in your mouth; numbness or tingling around your mouth; fast or slow heart rate, feeling short of breath, feeling unusually hot or cold; tremors, twitching, mood changes; ongoing numbness, weakness, or loss of movement where the medicine was injected; or joint pain or stiffness, or weakness in any part of your body for months after your surgery. You may still feel numb or be unable to move the numbed area for up to 5 days after you are treatedwith bupivacaine liposome. Common side effects include: nausea, vomiting; constipation; or fever. This is not a complete list of side effects and others may occur. Call your doctor for medical advice about side effects. You may report side effects to FDA at 4-754-AJW-8742. What other drugs will affect bupivacaine liposome? Other drugs may affect bupivacaine liposome, including prescription and [id number] medicines,vitamins, and herbal products. Tell your doctor about all your current medicines and any medicine you start or stop using. Where can I get more information? Your doctor or pharmacist can provide more information about bupivacaine liposome. Remember, keep this and all other medicines out of the reach of children, never share your medicines with others, and use this medication only for the indication prescribed. Every effort has been made to ensure that the information provided by [employer]') is accurate, up-to-date, and complete, but no guarantee is made to that effect. Drug information contained herein may be time sensitive. [employer] information has been compiled for use by healthcare practitioners and consumers in the [place] and therefore [employer] does not warrant that uses outside of the [place] are appropriate, unless specifically indicated otherwise. [employer] drug information does not endorse drugs, diagnose patients or recommend therapy. [employer] drug information isan informational resource designed to assist licensed healthcare practitioners in caring for their p atients and/or to serve consumers viewing this service as a supplement to, and not a substitute for, the expertise, skill, knowledge and judgment of healthcare practitioners. The absence of a warningfor a given drug or drug combination in no way should be construed to indicate that the drug or drug combination is safe, effective or appropriate for any given patient. [facility] does not assume any responsibility for any aspect of healthcare administered with the aid of information [facility] provides. The information contained herein is not intended to cover all possible uses, directions, precautions, warnings, drug interactions, allergic reactions, or adverse effects. If you have questions about the drugs you are taking, check with your doctor, nurse or pharmacist. Copyright 3634-8303 [facility]. Version: 4.01. Revision Date: 07/22/2017. acetaminophen and hydrocodone (a SEET a MIN oh fen and kraig droe KOE done) Verdrocet What is the most important information I should know about acetaminophen and hydrocodone? MISUSE OF OPIOID MEDICINE CAN CAUSE ADDICTION, OVERDOSE, OR . Keep the medication in a place where others cannot get to it. Taking opioid medicine during may cause life-threatening withdrawal symptoms in the . Fatal side effects can occur if you use opioid medicine with alcohol, or with other drugs that cause drowsiness or slow your breathing. Stop taking this medicine and call your doctor right away if you have skin redness or a rash that spreads and causes blistering and peeling. What is acetaminophen and hydrocodone? Acetaminophen and hydrocodone is a combination medicine used to relieve moderate to severe pain. Acetaminophen and hydrocodone contains an opioid medicine, and may be habit-forming. Acetaminophen and hydrocodone may also be used for purposes not listed in this medication guide. What should I discuss with my healthcare provider before taking acetaminophen and hydrocodone? You should not use this medicine if you are allergic to acetaminophen or hydrocodone, or if you have: severe asthma or breathing problems; or a blockage in your stomach or intestines. Tell your doctor if you have ever had: breathing problems, sleep apnea (breathing stops during sleep); liver disease; a drug or alcohol addiction; kidney disease; a head injury or seizures; urination problems; or problems with your thyroid, pancreas, or gallbladder. If you use opioid medicine while you are , your baby could become dependent on the drug. This can cause life-threatening withdrawal symptoms in the baby after it is born. Babies born dependent on opioids may need medical treatment for several weeks. Ask a doctor before using opioid medicine if you are . Tell your doctor if you notice severe drowsiness or slow breathing in the nursing baby. How should I take acetaminophen and hydrocodone? Follow all directions on your prescription label. Never take this medicine in larger amounts, or for longer than prescribed. An overdose can damage your liver or cause . Tell your doctor if you feel an increased urge to use more of this medicine. Never share this medicine with another person, especially someone with a history of drug abuse or addiction. MISUSE CAN CAUSE ADDICTION, OVERDOSE, OR . Keep the medicine in a place where others cannot get to it. Selling or giving away this medicine is against the law. Measure liquid medicine carefully. Use the dosing syringe provided, or use a medicine dose-measuring device (not a kitchen spoon). If you need surgery or medical tests, tell the doctor ahead of time that you are using this medicine. You should not stop using this medicine suddenly. Follow your doctor's instructions about tapering your dose. Store at room temperature away from moisture and heat. Keep track of your medicine. You should be aware if anyone is using it improperly or without a prescription. Do not keep leftover opioid medication. Just one dose can cause in someone using this medicine accidentally or improperly. Ask your pharmacist where to locate a drug take-back disposal program.If there is no take-back program, flush the unused medicine down the toilet. What happens if I miss a dose? Since this medicine is used for pain, you are not likely to miss a dose. Skip any missed dose if itis almost time for your next dose. Do not use two doses at one time. What happens if I overdose? Seek emergency medical attention or call the Poison Help line at . An overdose of this medicine can be fatal, especially in a child or other person using the medicine without a prescription. Overdose symptoms may include nausea, vomiting, sweating, severe drowsiness, pinpoint pupils, slow breathing, or no breathing. Your doctor may recommend you get naloxone (a medicine to reverse an opioid overdose) and keep it with you at all times. A person caring for you can give the naloxone if you stop breathing or don't wake up. Your caregiver must still get emergency medical help and may need to perform CPR (cardiopulmonary resuscitation) on you while waiting for help to arrive. Anyone can buy naloxone from a pharmacy or local health department. Make sure any person caring foryou knows where you keep naloxone and how to use it. What should I avoid while taking acetaminophen and hydrocodone? Avoid driving or operating machinery until you know how this medicine will affect you. Dizziness ordrowsiness can cause falls, accidents, or severe injuries. Do not drink alcohol. Dangerous side effects or could occur. Ask a doctor or pharmacist before using any other medicine that may contain acetaminophen (sometimes abbreviated as APAP). Taking certain medications together can lead to a fatal overdose. What are the possible side effects of acetaminophen and hydrocodone? Get emergency medical help if you have signs of an allergic reaction: hives; difficulty breathing; swelling of your face, lips, tongue, or throat. Opioid medicine can slow or stop your breathing, and may occur. A person caring for you should give naloxone and/or seek emergency medical attention if you have slow breathing with long pauses,blue colored lips, or if you are hard to wake up. In rare cases, acetaminophen may cause a severe skin reaction that can be fatal. This could occur even if you have taken acetaminophen in the past and had no reaction. Stop taking this medicine and call your doctor right away if you have skin redness or a rash that spreads and causes blistering andpeeling. Call your doctor at once if you have: noisy breathing, sighing, shallow breathing, breathing that stops; a light-headed feeling, like you might pass out; liver problems--nausea, upper stomach pain, tiredness, loss of appetite, dark urine, elodia-colored stools, jaundice (yellowing of the skin or eyes); low cortisol levels-- nausea, vomiting, loss of appetite, dizziness, worsening tiredness or weakness; o high levels of serotonin in the body--agitation, hallucinations, fever, sweating, shivering, fast heart rate, muscle stiffness, twitching, loss of coordination, nausea, vomiting, diarrhea. Serious breathing problems may be more likely in older adults and in those who are debilitated or have wasting syndrome or chronic breathing disorders. Common side effects include: dizziness, drowsiness, feeling tired; nausea, vomiting, stomach pain; constipation; or headache. This is not a complete list of side effects and others may occur. Call your doctor for medical advice about side effects. You may report side effects to FDA at 1-514-MZN-4375. What other drugs will affect acetaminophen and hydrocodone? You may have breathing problems or withdrawal symptoms if you start or stop taking certain other medicines. Tell your doctor if you also use an antibiotic, antifungal medication, heart or blood pressure medication, seizure medication, or medicine to treat HIV or hepatitis C. Opioid medication can interact with many other drugs and cause dangerous side effects or . Be sure your doctor knows if you also use: cold or allergy medicines, bronchodilator asthma/COPD medication, or a diuretic ('water pill'); medicines for motion sickness, irritable bowel syndrome, or overactive bladder; other opioids--opioid pain medicine or prescription cough medicine; a sedative like Valium--diazepam, alprazolam, lorazepam, Xanax, Klonopin, Versed, and others; drugs that make you sleepy or slow your breathing--a sleeping pill, muscle relaxer, medicine to treat mood disorders or mental illness; drugs that affect serotonin levels in your body--a stimulant, or medicine for depression, Parkinson's disease, migraine headaches, serious infections, or nausea and vomiting. This list is not complete. Other drugs may affect acetaminophen and hydrocodone, including prescription and hnbq-cjq-fkqkmvi medicines, vitamins, and herbal products. Not all possible interactions are listed here. Where can I get more information? Your doctor or pharmacist can provide more information about acetaminophen and hydrocodone. Remember, keep this and all other medicines out of the reach of children, never share your medicines with others, and use this medication only for the indication prescribed. Every effort has been made to ensure that the information provided by [employer]') is accurate, up-to-date, and complete, but no guarantee is made to that effect. Drug information contained herein may be time sensitive. [employer] information has been compiled for use by healthcare practitioners and consumers in the [place] and therefore [employer] does not warrant that uses outside of the [place] are appropriate, unless specifically indicated otherwise. [employer] drug information does not endorse drugs, diagnose patients or recommend therapy. [employer] drug information isan informational resource designed to assist licensed healthcare practitioners in caring for their p atients and/or to serve consumers viewing this service as a supplement to, and not a substitute for, the expertise, skill, knowledge and judgment of healthcare practitioners. The absence of a warningfor a given drug or drug combination in no way should be construed to indicate that the drug or drug combination is safe, effective or appropriate for any given patient. [facility] does not assume any responsibility for any aspect of healthcare administered with the aid of information [facility] provides. The information contained herein is not intended to cover all possible uses, directions, precautions, warnings, drug interactions, allergic reactions, or adverse effects. If you have questions about the drugs you are taking, check with your doctor, nurse or pharmacist. Copyright 5063-1521 [facility] Version: 19.02. Revision Date: 07/09/2023. Education Materials How to Use Compression Stockings Compression stockings are elastic socks that squeeze the legs. They help increase blood flow (circulation) to the legs, decrease swelling in the legs, and reduce the chance of developing blood clots in the lower legs. Compression stockings are often used by people who: Are recovering from surgery. Have poor circulation in their legs. Tend to get blood clots in their legs. Have bulging (varicose) veins. Sit or stay in bed for long periods of time. Follow instructions from your health care provider about how and when to wear your compression stockings. How to wear compression stockings Before you put on your compression stockings: Make sure that they are the correct size and degree of compression. If you do not know your size orrequired grade of compression, ask your health care provider and follow the textile dyer's instructions that come with the stockings. Make sure that they are clean, dry, and in good condition. Check them for rips and tears. Do not put them on if they are ripped or torn. Put your stockings on first thing in the morning, before you get out of bed. Keep them on for as long as your health care provider advises. When you are wearing your stockings: Keep them as smooth as possible. Do not allow them to bunch up. It is especially important to prevent the stockings from bunching up around your toes or behind your knees. Do not roll the stockings downward and leave them rolled down. This can decrease blood flow to yourleg. Change them right away if they become wet or dirty. When you take off your stockings, inspect your legs and feet. Check for: Open sores. Red spots. Swelling. General tips Do not stop wearing compression stockings without talking to your health care provider first. Wash your stockings every day with mild detergent in cold or warm water. Do not use bleach. Air-dryyour stockings or dry them in a clothes dryer on low heat. It may be helpful to have two pairs so that you have a pair to wear while the other is being washed. Replace your stockings every 3 6 months. If skin moisturizing is part of your treatment plan, apply lotion or cream at night so that your skin will be dry when you put on the stockings in the morning. It is harder to put the stockings on when you have lotion on your legs or feet. Wear nonskid shoes or slip-resistant socks when walking while wearing compression stockings. Contact a health care provider and remove your stockings if you have: A feeling of pins and needles in your feet or legs. Open sores, red spots, or other skin changes on your feet or legs. Swelling or pain that gets worse. Get help right away if you have: Numbness or tingling in your lower legs that does not get better right after you take the stockingsoff. Toes or feet that are unusually cold or turn a bluish color. A warm or red area on your leg. New swelling or soreness in your leg. Shortness of breath. Chest pain. A fast or irregular heartbeat. Light-headedness. Dizziness. Summary Compression stockings are elastic socks that squeeze the legs. They help increase blood flow (circulation) to the legs, decrease swelling in the legs, and reduce the chance of developing blood clots in the lower legs. Follow instructions from your health care provider about how and when to wear your compression stockings. Do not stop wearing your compression stockings without talking to your health care provider first. This information is not intended to replace advice given to you by your health care provider. Make sure you discuss any questions you have with your health care provider. Document Released: 01/13/2010 Document Revised: 03/20/2018 Document Reviewed: 03/20/2018 [employer] Patient Education 2020 [employer] General Anesthesia, Adult, Care After This sheet gives you information about how to care for yourself after your procedure. Your health care provider may also give you more specific instructions. If you have problems or questions, contact your health care provider. What can I expect after the procedure? After the procedure, the following side effects are common: Pain or discomfort at the IV site. Nausea. Vomiting. Sore throat. Trouble concentrating. Feeling cold or chills. Weak or tired. Sleepiness and fatigue. Soreness and body aches. These side effects can affect parts of the body that were not involved in surgery. Follow these instructions at home: For at least 24 hours after the procedure: Have a responsible adult stay with you. It is important to have someone help care for you until youare awake and alert. Rest as needed. Do not: ? Participate in activities in which you could fall or become injured. ? Drive. ? Use heavy machinery. ? Drink alcohol. ? Take sleeping pills or medicines that cause drowsiness. ? Make important decisions or sign legal documents. ? Take care of children on your own. Eating and drinking Follow any instructions from your health care provider about eating or drinking restrictions. When you feel hungry, start by eating small amounts of foods that are soft and easy to digest (bland), such as toast. Gradually return to your regular diet. Drink enough fluid to keep your urine pale yellow. If you vomit, rehydrate by drinking water, juice, or clear broth. General instructions If you have sleep apnea, surgery and certain medicines can increase your risk for breathing problems. Follow instructions from your health care provider about wearing your sleep device: ? Anytime you are sleeping, including during daytime naps. ? While taking prescription pain medicines, sleeping medicines, or medicines that make you drowsy. Return to your normal activities as told by your health care provider. Ask your health care provider what activities are safe for you. Take mvfw-uku-pjjqwys and prescription medicines only as told by your health care provider. If you smoke, do not smoke without supervision. Keep all follow-up visits as told by your health care provider. This is important. Contact a health care provider if: You have nausea or vomiting that does not get better with medicine. You cannot eat or drink without vomiting. You have pain that does not get better with medicine. You are unable to pass urine. You develop a skin rash. You have a fever. You have redness around your IV site that gets worse. Get help right away if: You have difficulty breathing. You have chest pain. You have blood in your urine or stool, or you vomit blood. Summary After the procedure, it is common to have a sore throat or nausea. It is also common to feel tired. Have a responsible adult stay with you for the first 24 hours after general anesthesia. It is important to have someone help care for you until you are awake and alert. When you feel hungry, start by eating small amounts of foods that are soft and easy to digest (bland), such as toast. Gradually return to your regular diet. Drink enough fluid to keep your urine pale yellow. Return to your normal activities as told by your health care provider. Ask your health care provider what activities are safe for you. This information is not intended to replace advice given to you by your health care provider. Make sure you discuss any questions you have with your health care provider. Document Released: 06/24/2001 Document Revised: 03/21/2018 Document Reviewed: 11/01/2017 [employer] Patient Education 2020 [employer]. Deep Vein Thrombosis Deep vein thrombosis (DVT) is a condition in which a blood clot forms in a deep vein, such as a lower leg, thigh, or arm vein. A clot is blood that has thickened into a gel or solid. This condition is dangerous. It can lead to serious and even life-threatening complications if the clot travels to the lungs and causes a blockage (pulmonary embolism). It can also damage veins in the leg. This can result in leg pain, swelling, discoloration, and sores (post-thrombotic syndrome). What are the causes? This condition may be caused by: A slowdown of blood flow. Damage to a vein. A condition that causes blood to clot more easily, such as an inherited clotting disorder. What increases the risk? The following factors may make you more likely to develop this condition: Being overweight. Being older, especially over age 60. Sitting or lying down for more than four hours. Being in the hospital. Lack of physical activity (sedentary lifestyle). , being in childbirth, or having recently given . Taking medicines that contain estrogen, such as medicines to prevent . Smoking. A history of any of the following: ? Blood clots or a blood clotting disease. ? Peripheral vascular disease. ? Inflammatory bowel disease. ? Cancer. ? Heart disease. ? Genetic conditions that affect how your blood clots, such as Factor V Leiden mutation. ? Neurological diseases that affect your legs (leg paresis). ? A recent injury, such as a car accident. ? Major or lengthy surgery. ? A central line placed inside a large vein. What are the signs or symptoms? Symptoms of this condition include: Swelling, pain, or tenderness in an arm or leg. Warmth, redness, or discoloration in an arm or leg. If the clot is in your leg, symptoms may be more noticeable or worse when you stand or walk. Some people may not develop any symptoms. How is this diagnosed? This condition is diagnosed with: A medical history and physical exam. Tests, such as: ? Blood tests. These are done to check how well your blood clots. ? Ultrasound. This is done to check for clots. ? Venogram. For this test, contrast dye is injected into a vein and X-rays are taken to check for anyclots. How is this treated? Treatment for this condition depends on: The cause of your DVT. Your risk for bleeding or developing more clots. Any other medical conditions that you have. Treatment may include: Taking a blood thinner (anticoagulant). This type of medicine prevents clots from forming. It may be taken by mouth, injected under the skin, or injected through an IV (catheter). Injecting clot-dissolving medicines into the affected vein (catheter-directed thrombolysis). Having surgery. Surgery may be done to: ? Remove the clot. ? Place a filter in a large vein to catch blood clots before they reach the lungs. Some treatments may be continued for up to six months. Follow these instructions at home: If you are taking blood thinners: Take the medicine exactly as told by your health care provider. Some blood thinners need to be taken at the same time every day. Do not skip a dose. Talk with your health care provider before you take any medicines that contain aspirin or NSAIDs. These medicines increase your risk for dangerous bleeding. Ask your health care provider about foods and drugs that could change the way the medicine works (may interact). Avoid those things if your health care provider tells you to do so. Blood thinners can cause easy bruising and may make it difficult to stop bleeding. Because of this: ? Be very careful when using knives, scissors, or other sharp objects. ? Use an electric razor instead of a blade. ? Avoid activities that could cause injury or bruising, and follow instructions about how to prevent falls. Wear a medical alert bracelet or carry a card that lists what medicines you take. General instructions Take bedh-lnt-rfwvjgw and prescription medicines only as told by your health care provider. Return to your normal activities as told by your health care provider. Ask your health care provider what activities are safe for you. Wear compression stockings if recommended by your health care provider. Keep all follow-up visits as told by your health care provider. This is important. How is this prevented? To lower your risk of developing this condition again: For 30 or more minutes every day, do an activity that: ? Involves moving your arms and legs. ? Increases your heart rate. When traveling for longer than four hours: ? Exercise your arms and legs every hour. ? Drink plenty of water. ? Avoid drinking alcohol. Avoid sitting or lying for a long time without moving your legs. If you have surgery or you are hospitalized, ask about ways to prevent blood clots. These may include taking frequent walks or using anticoagulants. Stay at a healthy weight. If you are a woman who is older than age 35, avoid unnecessary use of medicines that contain estrogen, such as some control pills. Do not use any products that contain nicotine or tobacco, such as cigarettes and e-cigarettes. Thisis especially important if you take estrogen medicines. If you need help quitting, ask your health care provider. Contact a health care provider if: You miss a dose of your blood thinner. Your menstrual period is heavier than usual. You have unusual bruising. Get help right away if: You have: ? New or increased pain, swelling, or redness in an arm or leg. ? Numbness or tingling in an arm or leg. ? Shortness of breath. ? Chest pain. ? A rapid or irregular heartbeat. ? A severe headache or confusion. ? A cut that will not stop bleeding. There is blood in your vomit, stool, or urine. You have a serious fall or accident, or you hit your head. You feel light-headed or dizzy. You cough up blood. These symptoms may represent a serious problem that is an emergency. Do not wait to see if the symptoms will go away. Get medical help right away. Call your local emergency services (911 in the [place] Do not drive yourself to the hospital. Summary Deep vein thrombosis (DVT) is a condition in which a blood clot forms in a deep vein, such as a lower leg, thigh, or arm vein. Symptoms can include swelling, warmth, pain, and redness in your leg or arm. This condition may be treated with a blood thinner (anticoagulant medicine), medicine that is injected to dissolve blood clots,compression stockings, or surgery. If you are prescribed blood thinners, take them exactly as told. This information is not intended to replace advice given to you by your health care provider. Make sure you discuss any questions you have with your health care provider. Document Released: 03/18/2006 Document Revised: 02/28/2018 Document Reviewed: 08/16/2017 [employer] Patient Education 2020 [employer]. Laparoscopic Ventral Hernia Repair, Care After This sheet gives you information about how to care for yourself after your procedure. Your health care provider may also give you more specific instructions. If you have problems or questions, contact your health care provider. What can I expect after the procedure? After the procedure, it is common to have: Pain, discomfort, or soreness. Follow these instructions at home: Incision care Follow instructions from your health care provider about how to take care of your incision. Make sure you: ? Wash your hands with soap and water before you change your bandage (dressing) or before you touch your abdomen. If soap and water are not available, use hand freight rate analyst. ? Change your dressing as told by your health care provider. ? Leave stitches (sutures), skin glue, or adhesive strips in place. These skin closures may need to stay in place for 2 weeks or longer. If adhesive strip edges start to loosen and curl up, you may trim the loose edges. Do not remove adhesive strips completely unless your health care provider tells you to do that. Check your incision area every day for signs of infection. Check for: ? Redness, swelling, or pain. ? Fluid or blood. ? Warmth. ? Pus or a bad smell. Bathing Do not take baths, swim, or use a hot tub until your health care provider approves. Ask your healthcare provider if you can take showers. You may only be allowed to take sponge baths for bathing. Keep your bandage (dressing) dry until your health care provider says it can be removed. Activity Do not lift anything that is heavier than 10 lb (4.5 kg) until your health care provider approves. Do not drive or use heavy machinery while taking prescription pain medicine. Ask your health care provider when it is safe for you to drive or use heavy machinery. Do not drive for 24 hours if you were given a medicine to help you relax (sedative) during your procedure. Rest as told by your health care provider. You may return to your normal activities when your health care provider approves. General instructions Take vsil-rtl-zrbiuay and prescription medicines only as told by your health care provider. To prevent or treat constipation while you are taking prescription pain medicine, your health care provider may recommend that you: ? Take urva-vla-wmbiypa or prescription medicines. ? Eat foods that are high in fiber, such as fresh fruits and vegetables, whole grains, and beans. ? Limit foods that are high in fat and processed sugars, such as fried and sweet foods. Drink enough fluid to keep your urine clear or pale yellow. Hold a pillow over your abdomen when you cough or sneeze. This helps with pain. Keep all follow-up visits as told by your health care provider. This is important. Contact a health care provider if: You have: ? A fever or chills. ? Redness, swelling, or pain around your incision. ? Fluid or blood coming from your incision. ? Pus or a bad smell coming from your incision. ? Pain that gets worse or does not get better with medicine. ? Nausea or vomiting. ? A cough. ? Shortness of breath. Your incision feels warm to the touch. You have not had a bowel movement in three days. You are not able to urinate. Get help right away if: You have severe pain in your abdomen. You have persistent nausea and vomiting. You have redness, warmth, or pain in your leg. You have chest pain. You have trouble breathing. Summary After this procedure, it is common to have pain, discomfort, or soreness. Follow instructions from your health care provider about how to take care of your incision. Check your incision area every day for signs of infection. Report any signs of infection to your health care provider. Keep all follow-up visits as told by your health care provider. This is important. This information is not intended to replace advice given to you by your health care provider. Make sure you discuss any questions you have with your health care provider. Document Released: 03/04/2013 Document Revised: 02/28/2018 Document Reviewed: 11/07/2016 Christian Torre (more content not included)... [facility]10-22-2024 Note ORIGINAL EXAMINATION: ONE SUPINE XRAY VIEW(S) OF THE ABDOMEN 01/21/2024 11:53 am COMPARISON: The chest x-ray 01/21/2024 HISTORY: ORDERING SYSTEM PROVIDED HISTORY: Reason for Exam: NG PLACEMENT FINDINGS: Examination is tailored for enteric tube placement and is limited otherwise. An enteric tube is seen coursing below the diaphragm with tip projecting over the gastric bubble. The side port projects just above the GE junction. Advancement by the approximately 6 cm is recommended. IMPRESSION: Enteric tube side-port projects just above the GE junction and advancement by approximately 6 cm is recommended. Interpreted by: Jacob Quinteros MD Preliminary Report By: Jacob Quinteros MD Electronically signed By Jacob Quinteros MD Dictated Date: 01/21/2024 11:57:39 AM Prelim Date: 01/21/2024 11:59:12 AM Sign Date: 01/21/2024 11:59:12 AM Ordering Provider: [facility]10-22-2024 Note ORIGINAL EXAMINATION: CT OF THE ABDOMEN AND PELVIS WITHOUT DJWNSPMB36/22/2024 11:06 am TECHNIQUE: CT of the abdomen and pelvis was performed without the administration of intravenous contrast. Multiplanar reformatted images are provided for review. Automated exposure control, iterative reconstruction, and/or weight based adjustment of the mA/kV was utilized to reduce the radiation dose to as low as reasonably achievable. COMPARISON: None HISTORY: ORDERING SYSTEM PROVIDED HISTORY: Reason for Exam: post surgical FINDINGS: The liver contour is nodular. Cholelithiasis. Marked gallbladder wall thickening and submucosal edema. The pancreas, spleen, and bilateral adrenal glands are unremarkable. No hydronephrosis. No urolithiasis. The urinary bladder is decompressed with Delacruz catheter in place. Associated air in the urinary bladder lumen. Small fluid-filled hiatal hernia. Predominantly fluid-filled mildly distended stomach. Marked thickening of the proximal D1/D2 duodenal wall with defect/discontinuity of the wall. There is adjacent free air, and other areas of marked free air in the upper abdomen was also tracks inferiorly in the retroperitoneum. Vfyb-nr-qfmxwblc free fluid tracks in the retroperitoneal region and right pericolic gutter into the lower pelvis. Additionally, there is a locule of air adjacent to/associated with the distal/D4 duodenum, likely free air/sequela of focal perforation versus less likely duodenal diverticulum. No acute colonic abnormality. There is a 5.6 x 5.5 cm fluid collection containing locules of air within the periumbilical/infraumbilical anterior midline soft tissues. Overlying and adjacent skin thickening infiltrative change and locules of free air which are seen more superiorly in the anterior abdominal wall subcutaneous tissues. Tiny fat containing bilateral inguinal hernias. No lymphadenopathy. Nonaneurysmal atherosclerotic aortoiliac arteries. No acute osseous abnormality.No aggressive osseous lesions.Varying degrees of multifocal degenerative change. Small right and trace left pleural effusions with overlying consolidation/compressive atelectasis. Multi-vessel coronary artery atherosclerotic irregularity and/or stents. IMPRESSION: Findings above consistent with perforated proximal and possibly distal duodenum. Consider perforated ulcer. Associated free air and free fluid in the peritoneal and retroperitoneal cavities. Findings above consistent subcutaneous periumbilical/infraumbilical abscess. Cholelithiasis. Marked gallbladder wall thickening/edema may be reactive in the setting of hepatic dysfunction or more likely associated with the above described duodenal pathology. Cirrhotic morphology of the liver. Small right and trace left pleural effusion with overlying consolidation/compressive atelectasis. Critical results were called by Dr. Tevin Machuca to Fernanda Ham RN on 01/21/2024 at 11:36. I have personally reviewed the images of this examination and agree with the resident's findings and interpretation. Interpreted by: Harjeet Oliveira MD Preliminary Report By: Tevin Machuca Electronically signed By Harjeet Oliveira MD Dictated Date: 01/21/2024 11:14:55 AM Prelim Date: 01/21/2024 11:51:15 AM Sign Date: 01/21/2024 12:04:44 PM Ordering Provider: [facility]10-22-2024 Note ORIGINAL EXAMINATION: ONE XRAY VIEW OF THE CHEST TECHNIQUE: One view AP upright COMPARISON: Chest 01/20/2024 HISTORY: ORDERING SYSTEM PROVIDED HISTORY: Reason for Exam: hypoxia FINDINGS: Support devices: None Cardiomediastinal: The heart is stable in size and configuration. Lungs: Slightly diminished lung volumes with hypoventilatory changes. Mild bibasilar subsegmental atelectasis. No pulmonary edema, consolidation or a large pleural effusion. Small pleural effusions may be present. Pneumothorax: None Osseous: No acute osseous pathology. IMPRESSION: 1. Mild bibasilar subsegmental atelectasis. 2. Possible small pleural effusions. Interpreted by: Efrain Chairez MD Preliminary Report By: Efrain Chairez MD Electronically signed By Efrain Chairez MD Dictated Date: 01/21/2024 8:07:07 AM Prelim Date: 01/21/2024 8:08:55 AM Sign Date: 01/21/2024 8:08:55 AM Ordering Provider: [facility]10-22-2024 Surgery Hospital Progress note Date of Service 01/21/2024 Surgery progress note: Postop day 1 status post robotic assisted umbilical hernia repair with preperitoneal mesh Patient afebrile overnight vital signs stable with pulse running around 100 and blood pressure stable. Patient however did continue to require significant oxygen support overnight and actually is nowon 50% mask to keep his saturations around 92%. He does not feel short of breath with the oxygen none but says he gets short of breath relatively quickly when the oxygen is off. He has only had 150 cc recorded urine output postop. He complains of moderate degree of abdominal soreness mostly across the epigastric area. Abdominal pain is actually somewhat better than it was postop yesterday afternoon. He has not had any further narcotics since 1 dose of Trinity at 5:30 PM Did get a total body rash late last evening with itching responded well to Benadryl and has resolved since then. Unclear any temporal relationship to medication. The last medication he had prior to the onset of the rash was IV ibuprofen at 830 last night but he got a repeat dose of that around 330 this morning with no recurrent rash. Lungs grossly clear and equal to auscultation with no rales or wheezes audible. Heart sounds are regular S1-S2. Abdomen is rotund full mildly distended but not much different than his baseline. Moderately tenderdiffusely to palpation. Bowel sounds present but somewhat hypoactive. Redness around the periumbilical area is about the same as last evening. Some edema but no increased tenderness in the periumbilical area. Incisions clean and dry. Labs: White blood count 4.4. Hemoglobin 17 Blood sugar elevated with glucose 341. Serum electrolytes normal with normal sodium potassium BUN and creatinine have risen significantly to 37 and 1.95 Impression: Postop respiratory insufficiency/hypoxia which has persisted overnight uncertain etiology Acute kidney injury probably on top of some degree of chronic kidney disease exacerbated by IV ibuprofen Hyperglycemia Plan: Repeat chest x-ray Mobilize patient up to chair Closely monitor I's and O's. If patient does not respond to Lasix it may indicate that he actually is hypovolemic/dehydrated and may need some more volume with the elevated BUN and creatinine and theelevated hemoglobin which may indicate hemoconcentration. Pulmonary toilet Discontinue IV ibuprofen Digitally Signed by SALVADOR BOWMAN MD on 01/21/2024 07:55 AM [facility]10-22-2024 Nurse Progress note Patient had redness present around umbilical area when I received nightshift report from the dayshift nurse. Dr. Bowman was here seeing the patient during our report and advised us to outline redness and monitor the redness. Redness remained the same up until around 10:30pm. Upon assessing the patient after patient reported his hands itching, I noticed the redness turned into a full body, scattered rash. Patient denied the rash interfering with his work of breathing and only complained of the itching. Nurse practitioner shoe salesperson was notified and ordered IV push Benadryl. The rash greatly improved within the hour of administering the Benadryl and patient denied any itching upon reassessment. Digitally Signed by Ruma Hunt RN on 01/21/2024 01:18 AM [facility]10-21-2024 Note Date of Service 01/20/2024 Chief Complaint Weakness and hypoxia postop History of Present Illness 73-year-old male with obesity and diabetes who earlier today underwent a robotically assisted laparoscopic approach to repair of his umbilical hernia. Postoperatively the patient had considerable amount of complaints of mid abdominal pain but also was noted to have persistent relative hypoxia requiring oxygen supplementation to maintain his saturations at greater than 90%. He was observed for several hours in recovery and this failed to resolve and he remains somewhat lethargic but also with complaints of pain and generalized weakness. For that reason it was elected to keep the patient in thehospital overnight to monitor his oxygen levels and supplement his oxygen as needed along with pulmo nary toilet and control of his postoperative pain. Currently the patient complains of a moderate ache across his mid abdomen. He does not feel short of breath but feels generally weak. Review of Systems Pertinent review of systems is included in the history of present illness. Review of systems otherwise noncontributory except as noted above. Physical Exam Vitals and Measurements T: 36.7 C (Oral) TMIN: 36.2 C (Temporal Artery) TMAX: 36.7 C (Oral) HR: 102 RR: 18 BP: 164/91 SpO2:94% HT: 177.8 cm WT: 122 kg BMI: 38.59 Weight Dosing Weight: 122 kg (01/20/24) Dosing Weight: 122 kg (01/20/24) Morbidly obese elderly male awake mildly lethargic but in no acute distress. Current O2 [id number] to 93% on 4 L nasal cannula HEENT exam grossly unremarkable. Lungs are grossly clear and equal to auscultation without any audible rales or wheezes. Heart sounds are regular S1-S2. Abdomen is rotund but generally soft mildly tender in the mid abdomen. There is a zone of redness and splotchy contusion of the skin in the periumbilical area. The incisions are all clean dry well-approximated. Bowel sounds are positive and normal. Lab Results No 36 Hour Lab Data Imaging Results and Diagnostics Postop chest x-ray is reviewed and looks clear. Assessment/Plan Acute post-operative pain Patient with expected amount of central abdominal pain after laparoscopic preperitoneal repair of his umbilical hernia. Multimodality approach to pain medication will be given at this point relying mostly on IV ibuprofen along with Trinity orally. Ordered: acetaminophen-hydrocodone(Trinity 325- 5 mg oral tablet), 1 tab(s), Oral, q4h, PRN HTN, goal below 140/90 Postoperative hypoxia/sleep apnea Patient normally on CPAP at home. Probably has some degree of hypoxia which may be consistent with his baseline in addition to postanesthetic postoperative hypoventilation secondary to slow clearanceof anesthesia as well as postoperative pain. Chest x-ray appears clear. Will monitor the patient's O2 saturations overnight and have him concentrate on pulmonary toilet with incentive spirometer deep breathing and coughing and will try to mobilize the patient up to chair. Will order CPAP with oxygen supplementation for tonight. Plan for probable discharge home tomorrow. Problem List/Past Medical History Ongoing DM type 2, goal HbA1c < 7.5% Hernia centeral/midline, ventricle (large) Hernia, umbilical History of basal cell carcinoma (BCC) of skin, nose History of COVID-19 History of ventral hernia HTN, goal below 140/90 Hyperlipidemia LDL goal <100 Hypothyroidism in adult Increased BMI Increased BMI (body mass index) Laceration of skin of right hand Medicare annual wellness visit, subsequent Non-smoker Risk and functional assessment Screening for abdominal aortic aneurysm Screening for cardiovascular condition Screening for colorectal cancer Screening for glaucoma Screening for prostate cancer Vitamin D deficiency Historical Basal cell carcinoma of nose COVID-19 virus infection Overweight Procedure/Surgical History Hernia repair: 01/20/24 Colonoscopy: 09/29/08 Surgery Surgery Hernia Medications Home Medications (12) Active amLODIPine 5 mg oral tablet 5 mg = 1 tab(s), Oral, qDay atorvastatin 20 mg oral tablet 20 mg = 1 tab(s), Oral, qDay Farxiga 10 mg oral tablet 10 mg = 1 tab(s), Oral, qDay HumaLOG Mix 50/50 KwikPen 3 mL PEN 15 unit(s), Subcutaneous, BID levothyroxine 25 mcg (0.025 mg) oral tablet 50 mcg = 2 tab(s), Oral, qDay losartan 100 mg oral tablet 100 mg = 1 tab(s), Oral, qDay MetFORMIN (Eqv-Glucophage XR) 500 mg oral tablet, EXTENDED RELEASE 1,000 mg = 2 tab(s), Oral, BID metoprolol succinate 25 mg oral TABLET extended release 25 mg = 1 tab(s), Oral, qDay Trinity 325- 5 mg oral tablet 1 tab(s), PRN, Oral, q4h Ozempic 4 mg/3 mL (1 mg dose) subcutaneous solution 1 mg, Subcutaneous, qWeek Vitamin D (3) 45 units oral capsule Vitamin D with Minerals oral tablet 1 tab(s), Oral, qDay Allergies NKA Social History Alcohol Use: Current. Type: Liquor. Frequency: Daily. Has alcohol use interfered with work or home life: No., 01/20/2024 Home/Environment Living situation: Home/Independent. Domestic Concerns: None. Lives In: Multilevel home. Spouse Name: JESSICA. Marital Status: ., 01/17/2024 Nutrition/Health Type of diet: Diabetic. Caffeine intake amount: Pop. Eating Difficulties None., 01/20/2024 Substance Abuse Use: Never., 09/29/2018 Tobacco Nicotine Use: Former smoker, quit more than 30 days ago. Type: Cigarettes. Number of years: 30., 01/17/2024 Family History Heart disease: Father. Hodgkin disease: Sister. Hypertension: Mother and Father. Stroke: Sister. Health Status Family Member(s) Immunizations pneumococcal 13-valent conjugate vaccine: 0.5 unknown unit (07/12/17) pneumococcal 23-valent vaccine(Pneumovax: 0 unknown unit (12/22/15) SARS-CoV-2 (COVID-19) Ad26 vaccine: 0.5 unknown unit (06/09/20) SARS-CoV-2 mRNA (tozinameran) vaccine: 0.3 unknown unit (02/25/21) tetanus/diphth/pertuss (Tdap) adult/adol: 0.5 unknown unit (10/13/22) zoster vaccine live: 0 unknown unit (01/21/16) Code Status Code Status - Ordered -- 01/20/24 16:45:00 EDT, Full Code, Constant Order Digitally Signed by SALVADOR BOWMAN MD on 01/20/2024 07:24 PM [facility]10-21-2024 Note ORIGINAL EXAMINATION: ONE XRAY VIEW OF THE CHEST 01/20/2024 3:31 pm COMPARISON: 07/06/2020 HISTORY: ORDERING SYSTEM PROVIDED HISTORY: Reason for Exam: decreasing 02 SATs FINDINGS: There is diminished respiratory effort. The lungs are without acute focal process. There is no effusion or pneumothorax. The cardiomediastinal silhouette is without acute process. The osseous structures are without acute process. IMPRESSION: No acute process. Interpreted by: Chepe Gutierrez DO Preliminary Report By: Chepe Gutierrez DO Electronically signed By Chepe Gutierrez DO Dictated Date: 01/20/2024 4:14:42 PM Prelim Date: 01/20/2024 4:15:46 PM Sign Date: 01/20/2024 4:15:46 PM [facility]ing [facility] Progress note [id number] returned call; new orders; 1-admit to med/surg for pain controll and hypoxia; give IVCaldolor 800mg (q8hrs) and IV Ofirmev 1000mg (q8hrs) timed appropriately from last dose. Chest X-ray; Consult medicine. RT consult. Digitally Signed by Josie Ayers RN on 01/20/2024 03:17 PM [facility]10-21-2024 Hospital Discharge instructions Patient Education 01/20/2024 13:05:42 How to Use Compression Stockings How to Use Compression Stockings Compression stockings are elastic socks that squeeze the legs. They help increase blood flow (circulation) to the legs, decrease swelling in the legs, and reduce the chance of developing blood clots in the lower legs. Compression stockings are often used by people who: Are recovering from surgery. Have poor circulation in their legs. Tend to get blood clots in their legs. Have bulging (varicose) veins. Sit or stay in bed for long periods of time. Follow instructions from your health care provider about how and when to wear your compression stockings. How to wear compression stockings Before you put on your compression stockings: Make sure that they are the correct size and degree of compression. If you do not know your size orrequired grade of compression, ask your health care provider and follow the textile dyer's instructions that come with the stockings. Make sure that they are clean, dry, and in good condition. Check them for rips and tears. Do not put them on if they are ripped or torn. Put your stockings on first thing in the morning, before you get out of bed. Keep them on for as long as your health care provider advises. When you are wearing your stockings: Keep them as smooth as possible. Do not allow them to bunch up. It is especially important to prevent the stockings from bunching up around your toes or behind your knees. Do not roll the stockings downward and leave them rolled down. This can decrease blood flow to yourleg. Change them right away if they become wet or dirty. When you take off your stockings, inspect your legs and feet. Check for: Open sores. Red spots. Swelling. General tips Do not stop wearing compression stockings without talking to your health care provider first. Wash your stockings every day with mild detergent in cold or warm water. Do not use bleach. Air-dryyour stockings or dry them in a clothes dryer on low heat. It may be helpful to have two pairs so that you have a pair to wear while the other is being washed. Replace your stockings every 3 6 months. If skin moisturizing is part of your treatment plan, apply lotion or cream at night so that your skin will be dry when you put on the stockings in the morning. It is harder to put the stockings on when you have lotion on your legs or feet. Wear nonskid shoes or slip-resistant socks when walking while wearing compression stockings. Contact a health care provider and remove your stockings if you have: A feeling of pins and needles in your feet or legs. Open sores, red spots, or other skin changes on your feet or legs. Swelling or pain that gets worse. Get help right away if you have: Numbness or tingling in your lower legs that does not get better right after you take the stockingsoff. Toes or feet that are unusually cold or turn a bluish color. A warm or red area on your leg. New swelling or soreness in your leg. Shortness of breath. Chest pain. A fast or irregular heartbeat. Light-headedness. Dizziness. Summary Compression stockings are elastic socks that squeeze the legs. They help increase blood flow (circulation) to the legs, decrease swelling in the legs, and reduce the chance of developing blood clots in the lower legs. Follow instructions from your health care provider about how and when to wear your compression stockings. Do not stop wearing your compression stockings without talking to your health care provider first. This information is not intended to replace advice given to you by your health care provider. Make sure you discuss any questions you have with your health care provider. Document Released: 01/13/2010 Document Revised: 03/20/2018 Document Reviewed: 03/20/2018 [employer] Education 2020 [employer] 01/20/2024 13:05:30 General Anesthesia, Adult, Care After General Anesthesia, Adult, Care After This sheet gives you information about how to care for yourself after your procedure. Your health care provider may also give you more specific instructions. If you have problems or questions, contact your health care provider. What can I expect after the procedure? After the procedure, the following side effects are common: Pain or discomfort at the IV site. Nausea. Vomiting. Sore throat. Trouble concentrating. Feeling cold or chills. Weak or tired. Sleepiness and fatigue. Soreness and body aches. These side effects can affect parts of the body that were not involved in surgery. Follow these instructions at home: For at least 24 hours after the procedure: Have a responsible adult stay with you. It is important to have someone help care for you until youare awake and alert. Rest as needed. Do not: ?Participate in activities in which you could fall or become injured. ?Drive. ?Use heavy machinery. ?Drink alcohol. ?Take sleeping pills or medicines that cause drowsiness. ?Make important decisions or sign legal documents. ?Take care of children on your own. Eating and drinking Follow any instructions from your health care provider about eating or drinking restrictions. When you feel hungry, start by eating small amounts of foods that are soft and easy to digest (bland), such as toast. Gradually return to your regular diet. Drink enough fluid to keep your urine pale yellow. If you vomit, rehydrate by drinking water, juice, or clear broth. General instructions If you have sleep apnea, surgery and certain medicines can increase your risk for breathing problems. Follow instructions from your health care provider about wearing your sleep device: ?Anytime you are sleeping, including during daytime naps. ?While taking prescription pain medicines, sleeping medicines, or medicines that make you drowsy. Return to your normal activities as told by your health care provider. Ask your health care provider what activities are safe for you. Take upmt-jgj-ykcvpyg and prescription medicines only as told by your health care provider. If you smoke, do not smoke without supervision. Keep all follow-up visits as told by your health care provider. This is important. Contact a health care provider if: You have nausea or vomiting that does not get better with medicine. You cannot eat or drink without vomiting. You have pain that does not get better with medicine. You are unable to pass urine. You develop a skin rash. You have a fever. You have redness around your IV site that gets worse. Get help right away if: You have difficulty breathing. You have chest pain. You have blood in your urine or stool, or you vomit blood. Summary After the procedure, it is common to have a sore throat or nausea. It is also common to feel tired. Have a responsible adult stay with you for the first 24 hours after general anesthesia. It is important to have someone help care for you until you are awake and alert. When you feel hungry, start by eating small amounts of foods that are soft and easy to digest (bland), such as toast. Gradually return to your regular diet. Drink enough fluid to keep your urine pale yellow. Return to your normal activities as told by your health care provider. Ask your health care provider what activities are safe for you. This information is not intended to replace advice given to you by your health care provider. Make sure you discuss any questions you have with your health care provider. Document Released: 06/24/2001 Document Revised: 03/21/2018 Document Reviewed: 11/01/2017 [employer] Patient Education 2020 [employer]. 01/20/2024 13:05:23 Deep Vein Thrombosis Deep Vein Thrombosis Deep vein thrombosis (DVT) is a condition in which a blood clot forms in a deep vein, such as a lower leg, thigh, or arm vein. A clot is blood that has thickened into a gel or solid. This condition is dangerous. It can lead to serious and even life-threatening complications if the clot travels to the lungs and causes a blockage (pulmonary embolism). It can also damage veins in the leg. This can result in leg pain, swelling, discoloration, and sores (post-thrombotic syndrome). What are the causes? This condition may be caused by: A slowdown of blood flow. Damage to a vein. A condition that causes blood to clot more easily, such as an inherited clotting disorder. What increases the risk? The following factors may make you more likely to develop this condition: Being overweight. Being older, especially over age 60. Sitting or lying down for more than four hours. Being in the hospital. Lack of physical activity (sedentary lifestyle). , being in childbirth, or having recently given . Taking medicines that contain estrogen, such as medicines to prevent . Smoking. A history of any of the following: ?Blood clots or a blood clotting disease. ?Peripheral vascular disease. ?Inflammatory bowel disease. ?Cancer. ?Heart disease. ?Genetic conditions that affect how your blood clots, such as Factor V Leiden mutation. ?Neurological diseases that affect your legs (leg paresis). ?A recent injury, such as a car accident. ?Major or lengthy surgery. ?A central line placed inside a large vein. What are the signs or symptoms? Symptoms of this condition include: Swelling, pain, or tenderness in an arm or leg. Warmth, redness, or discoloration in an arm or leg. If the clot is in your leg, symptoms may be more noticeable or worse when you stand or walk. Some people may not develop any symptoms. How is this diagnosed? This condition is diagnosed with: A medical history and physical exam. Tests, such as: ?Blood tests. These are done to check how well your blood clots. ?Ultrasound. This is done to check for clots. ?Venogram. For this test, contrast dye is injected into a vein and X-rays are taken to check for any clots. How is this treated? Treatment for this condition depends on: The cause of your DVT. Your risk for bleeding or developing more clots. Any other medical conditions that you have. Treatment may include: Taking a blood thinner (anticoagulant). This type of medicine prevents clots from forming. It may be taken by mouth, injected under the skin, or injected through an IV (catheter). Injecting clot-dissolving medicines into the affected vein (catheter-directed thrombolysis). Having surgery. Surgery may be done to: ?Remove the clot. ?Place a filter in a large vein to catch blood clots before they reach the lungs. Some treatments may be continued for up to six months. Follow these instructions at home: If you are taking blood thinners: Take the medicine exactly as told by your health care provider. Some blood thinners need to be taken at the same time every day. Do not skip a dose. Talk with your health care provider before you take any medicines that contain aspirin or NSAIDs. These medicines increase your risk for dangerous bleeding. Ask your health care provider about foods and drugs that could change the way the medicine works (may interact). Avoid those things if your health care provider tells you to do so. Blood thinners can cause easy bruising and may make it difficult to stop bleeding. Because of this: ?Be very careful when using knives, scissors, or other sharp objects. ?Use an electric razor instead of a blade. ?Avoid activities that could cause injury or bruising, and follow instructions about how to preventfalls. Wear a medical alert bracelet or carry a card that lists what medicines you take. General instructions Take yrqv-nyi-vwsbpvk and prescription medicines only as told by your health care provider. Return to your normal activities as told by your health care provider. Ask your health care provider what activities are safe for you. Wear compression stockings if recommended by your health care provider. Keep all follow-up visits as told by your health care provider. This is important. How is this prevented? To lower your risk of developing this condition again: For 30 or more minutes every day, do an activity that: ?Involves moving your arms and legs. ?Increases your heart rate. When traveling for longer than four hours: ?Exercise your arms and legs every hour. ?Drink plenty of water. ?Avoid drinking alcohol. Avoid sitting or lying for a long time without moving your legs. If you have surgery or you are hospitalized, ask about ways to prevent blood clots. These may include taking frequent walks or using anticoagulants. Stay at a healthy weight. If you are a woman who is older than age 35, avoid unnecessary use of medicines that contain estrogen, such as some control pills. Do not use any products that contain nicotine or tobacco, such as cigarettes and e-cigarettes. Thisis especially important if you take estrogen medicines. If you need help quitting, ask your health care provider. Contact a health care provider if: You miss a dose of your blood thinner. Your menstrual period is heavier than usual. You have unusual bruising. Get help right away if: You have: ?New or increased pain, swelling, or redness in an arm or leg. ?Numbness or tingling in an arm or leg. ?Shortness of breath. ?Chest pain. ?A rapid or irregular heartbeat. ?A severe headache or confusion. ?A cut that will not stop bleeding. There is blood in your vomit, stool, or urine. You have a serious fall or accident, or you hit your head. You feel light-headed or dizzy. You cough up blood. These symptoms may represent a serious problem that is an emergency. Do not wait to see if the symptoms will go away. Get medical help right away. Call your local emergency services (911 in the [place] Do not drive yourself to the hospital. Summary Deep vein thrombosis (DVT) is a condition in which a blood clot forms in a deep vein, such as a lower leg, thigh, or arm vein. Symptoms can include swelling, warmth, pain, and redness in your leg or arm. This condition may be treated with a blood thinner (anticoagulant medicine), medicine that is injected to dissolve blood clots,compression stockings, or surgery. If you are prescribed blood thinners, take them exactly as told. This information is not intended to replace advice given to you by your health care provider. Make sure you discuss any questions you have with your health care provider. Document Released: 03/18/2006 Document Revised: 02/28/2018 Document Reviewed: 08/16/2017 [employer] Patient Education 2020 [employer]. 01/20/2024 13:05:16 Laparoscopic Ventral Hernia Repair, Care After Laparoscopic Ventral Hernia Repair, Care After This sheet gives you information about how to care for yourself after your procedure. Your health care provider may also give you more specific instructions. If you have problems or questions, contact your health care provider. What can I expect after the procedure? After the procedure, it is common to have: Pain, discomfort, or soreness. Follow these instructions at home: Incision care Follow instructions from your health care provider about how to take care of your incision. Make sure you: ?Wash your hands with soap and water before you change your bandage (dressing) or before you touch your abdomen. If soap and water are not available, use hand freight rate analyst. ?Change your dressing as told by your health care provider. ?Leave stitches (sutures), skin glue, or adhesive strips in place. These skin closures may need to stay in place for 2 weeks or longer. If adhesive strip edges start to loosen and curl up, you may trim the loose edges. Do not remove adhesive strips completely unless your health care provider tells you to do that. Check your incision area every day for signs of infection. Check for: ?Redness, swelling, or pain. ?Fluid or blood. ?Warmth. ?Pus or a bad smell. Bathing Do not take baths, swim, or use a hot tub until your health care provider approves. Ask your healthcare provider if you can take showers. You may only be allowed to take sponge baths for bathing. Keep your bandage (dressing) dry until your health care provider says it can be removed. Activity Do not lift anything that is heavier than 10 lb (4.5 kg) until your health care provider approves. Do not drive or use heavy machinery while taking prescription pain medicine. Ask your health care provider when it is safe for you to drive or use heavy machinery. Do not drive for 24 hours if you were given a medicine to help you relax (sedative) during your procedure. Rest as told by your health care provider. You may return to your normal activities when your health care provider approves. General instructions Take doch-kaz-vswvtfn and prescription medicines only as told by your health care provider. To prevent or treat constipation while you are taking prescription pain medicine, your health care provider may recommend that you: ?Take qaqw-rlm-kxoljvs or prescription medicines. ?Eat foods that are high in fiber, such as fresh fruits and vegetables, whole grains, and beans. ?Limit foods that are high in fat and processed sugars, such as fried and sweet foods. Drink enough fluid to keep your urine clear or pale yellow. Hold a pillow over your abdomen when you cough or sneeze. This helps with pain. Keep all follow-up visits as told by your health care provider. This is important. Contact a health care provider if: You have: ?A fever or chills. ?Redness, swelling, or pain around your incision. ?Fluid or blood coming from your incision. ?Pus or a bad smell coming from your incision. ?Pain that gets worse or does not get better with medicine. ?Nausea or vomiting. ?A cough. ?Shortness of breath. Your incision feels warm to the touch. You have not had a bowel movement in three days. You are not able to urinate. Get help right away if: You have severe pain in your abdomen. You have persistent nausea and vomiting. You have redness, warmth, or pain in your leg. You have chest pain. You have trouble breathing. Summary After this procedure, it is common to have pain, discomfort, or soreness. Follow instructions from your health care provider about how to take care of your incision. Check your incision area every day for signs of infection. Report any signs of infection to your health care provider. Keep all follow-up visits as told by your health care provider. This is important. This information is not intended to replace advice given to you by your health care provider. Make sure you discuss any questions you have with your health care provider. Document Released: 03/04/2013 Document Revised: 02/28/2018 Document Reviewed: 11/07/2016 [employer] Patient Education 2020 [employer] 01/20/2024 13:04:48 How to Use an Incentive Spirometer How To Use an Incentive Spirometer An incentive spirometer is a tool that measures how well you are filling your lungs with each breath. Learning to take long, deep breaths using this tool can help you keep your lungs clear and active. This may help to reverse or lessen your chance of developing breathing (pulmonary) problems, especially infection. You may be asked to use a spirometer: After a surgery. If you have a lung problem or a history of smoking. After a long period of time when you have been unable to move or be active. If the spirometer includes an indicator to show the highest number that you have reached, your health care provider or respiratory therapist will help you set a goal. Keep a list (log) of your progress as told by your health care provider. What are the risks? Breathing too quickly may cause dizziness or cause you to pass out. Take your time so you do not get dizzy or light-headed. If you are in pain, you may need to take pain medicine before doing incentive spirometry. It is harder to take a deep breath if you are having pain. How to use your incentive spirometer 1.Sit up on the edge of your bed or on a chair. 2.Hold the incentive spirometer so that it is in an upright position. 3.Before you use the spirometer, breathe out normally. 4.Place the mouthpiece in your mouth. Make sure your lips are closed tightly around it. 5.Breathe in slowly and as deeply as you can through your mouth, causing the piston or the ball to rise toward the top of the chamber. 6.Hold your breath for 3 5 seconds, or for as long as possible. If the spirometer includes a field hockey coach indicator, use this to guide you in breathing. Slow down your breathing if the indicator goes above the marked areas. 7.Remove the mouthpiece from your mouth and breathe out normally. The piston or ball will return tothe bottom of the chamber. 8.Rest for a few seconds, then repeat the steps 10 or more times. Take your time and take a few normal breaths between deep breaths so that you do not get dizzy or light-headed. Do this every 1 2 hours when you are awake. 9.If the spirometer includes a goal marker to show the highest number you have reached (best effort), use this as a goal to work toward during each repetition. 10.After each set of 10 deep breaths, cough a few times. This will help to make sure that your lungs are clear. If you have an incision on your chest or abdomen from surgery, place a pillow or a rolled-up towel firmly against the incision when you cough. This can help to reduce pain from coughing. General tips When you become able to get out of bed, walk around often and continue to cough to help clear your lungs. Keep using the incentive spirometer until your health care provider says it is okay to stop using it. If you have been in the hospital, you may be told to keep using the spirometer at home. Contact a health care provider if: You are having difficulty using the spirometer. You have trouble using the spirometer as often as instructed. Your pain medicine is not giving enough relief for you to use the spirometer as told. You have a fever. You develop shortness of breath. Get help right away if: You develop a cough with bloody mucus from the lungs (bloody sputum). You have fluid or blood coming from an incision site after you cough. Summary An incentive spirometer is a tool that can help you learn to take long, deep breaths to keep your lungs clear and active. You may be asked to use a spirometer after a surgery, if you have a lung problem or a history of smoking, or if you have been inactive for a long period of time. Use your incentive spirometer as instructed every 1 2 hours while you are awake. If you have an incision on your chest or abdomen, place a pillow or a rolled-up towel firmly against your incision when you cough. This will help to reduce pain. This information is not intended to replace advice given to you by your health care provider. Make sure you discuss any questions you have with your health care provider. Document Released: 07/29/2007 Document Revised: 04/10/2018 Document Reviewed: 01/29/2018 [employer] Patient Education 2020 [employer] 01/20/2024 13:04:40 How to Use Cold Therapy, Bepx-xm-Ephz How to Use Cold Therapy Cold therapy, or cryotherapy, is a treatment that uses cold temperatures to treat an injury or medical condition. It includes using cold packs or ice packs to reduce pain and swelling. Only use cold therapy if your doctor says it is okay. What are the risks? Generally, cold therapy is a safe treatment. However, it is not safe for: People who are not able to say they are in pain. These include small children and people who have memory problems. People who have certain conditions, such as: ?A problem in the vessels that slows blood flow to the fingers and toes (Raynaud's syndrome). ?Feeling very cold easily (cold hypersensitivity). ?Lack of feeling in the area being iced. Cold therapy may not be safe for people who have other conditions. Do not use it without talking toyour doctor if you have: A heart condition. High blood pressure. Open or healing wounds. An infection. Pain and swelling in your joints (rheumatoid arthritis). Poor blood flow in the body. Diabetes. Certain skin conditions. How can I make a cold pack? When using a cold pack at home to reduce pain and swelling, you can use: A silica gel cold pack that has been left in the freezer. You can buy this online or in stores. A sealable plastic bag that has been filled with crushed ice. A washcloth or paper towels soaked in cold (or ice) water. A plastic bag of frozen vegetables. Throw them away when you are finished using them as a cold pack. Supplies needed: A cold pack. A towel. This can be dry or damp, based on what you like. How to use cold therapy 1.Have your cold pack ready. 2.Place a towel between the cold pack and your skin. You may also wrap the cold pack in a towel. 3.Put the cold pack on the affected area. Keep it on for no more than 20 minutes at a time. 4.Check your skin after 5 minutes to make sure that there is no damage to the area. Check for: White spots on your skin. Your skin may look blotchy or mottled. Skin that looks blue or pale. Skin that feels waxy or hard. 5.Repeat these steps as many times each day as told by your doctor. Always use a towel to avoid direct contact with your skin. Contact a doctor if: You start to have white spots on your skin. This may give your skin a blotchy or mottled look. Your skin turns blue or pale. Your skin becomes waxy or hard. Your swelling gets worse. Summary Cold therapy, or cryotherapy, is used to treat an injury or other conditions. It includes using cold packs or ice packs to reduce pain and swelling. Cold therapy is not safe for people who are not able to say they are in pain. When using cold packs or ice packs, always place a towel between the cold source and your skin. Check your skin after 5 minutes of icing it. This is to make sure that there is no skin damage. Contact your doctor if you notice changes in your skin or your swelling gets worse. This information is not intended to replace advice given to you by your health care provider. Make sure you discuss any questions you have with your health care provider. Document Released: 09/03/2008 Document Revised: 12/15/2018 Document Reviewed: 12/15/2018 [employer] Patient Education 2020 [employer]. Follow Up Care 01/14/2024 09:40:08 With:SALVADOR BOWMAN MD, Surgery Address: [address] [place] [address] [place] [address] [phone] When: Unknown Comments:CALL DR BOWMAN'S OFFICE SOON TO SCHEDULE A 2 WEEK FOLLOW UP APPOINTMENT AND WITH ANY QUESTIONS ORCONCERNS YOU MAY HAVE. GO TO THE EMERGENCY ROOM WITH ANY URGENT CONCERNS. [facility] 10-21-2024 Evaluation + Plan noteExtracted from: Title:History and Physical Author:SALVADOR BOWMAN MD Date:01/20/24 Acute post-operative pain Patient with expected amount of central abdominal pain after laparoscopic preperitoneal repair of his umbilical hernia. Multimodality approach to pain medication will be given at this point relying mostly on IV ibuprofen along with Trinity orally. Ordered: acetaminophen-hydrocodone(Trinity 325- 5 mg oral tablet), 1 tab(s), Oral, q4h, PRN HTN, goal below 140/90 Postoperative hypoxia/sleep apnea Patient normally on CPAP at home. Probably has some degree of hypoxia which may be consistent with his baseline in addition to postanesthetic postoperative hypoventilation secondary to slow clearance of anesthesia as well as postoperative pain. Chest x-ray appears clear. Will monitor the patient's O2 saturations overnight and have him concentrate on pulmonary toilet with incentive spirometer deep breathing and coughing and will try to mobilize the patient up to chair. Will order CPAP with oxygen supplementation for tonight. Plan for probable discharge home tomorrow. Future Appointments Appointment Date:01/28/2024 03:30:00 PM Scheduled Provider:LEV HOPE MD Location:[facility] Appointment Type:ENDO OV Appointment Date:02/03/2024 03:00:00 PM Scheduled Provider:SALVADOR BOWMAN MD Location:[facility] Appointment Type:GS OV Post Op Appointment Date:06/30/2024 03:20:00 PM Scheduled Provider:KELLEY HERNANDEZ APRN - UPHOLSTERY INSTRUCTOR Location:[facility] Appointment Type:PC OV Follow Up Future Scheduled Tests Laboratory* Prostate Specific Antigen 06/30/24 * Thyroid Stimulating Hormone 06/30/24 * Thyroid Stimulating Hormone 01/18/23 * Thyroid Stimulating Hormone 01/24/24 * Thyroid Stimulating Hormone 07/19/23 * Free T4 06/30/24 * Free T4 01/18/23 * Free T4 01/24/24 * Free T4 07/19/23 * A1C Hemoglobin 06/30/24 * A1C Hemoglobin 01/18/23 * A1C Hemoglobin 01/24/24 * A1C Hemoglobin 07/19/23 * Complete Blood Count 07/19/23 * Free T3 01/18/23 * Lipid Profile 06/30/24 * Albumin/Creatinine Ratio, Random Urine 06/30/24 * Albumin/Creatinine Ratio, Random Urine 01/18/23 * Albumin/Creatinine Ratio, Random Urine 01/24/24 * Albumin/Creatinine Ratio, Random Urine 07/19/23 * Vitamin D Level 06/30/24 * Vitamin D Level 07/19/23 * Complete Metabolic Panel 06/30/24 * Complete Metabolic Panel 01/18/23 * Complete Metabolic Panel 01/24/24 * Complete Metabolic Panel 07/19/23 [facility] 10-21-2024 Nurse Progress note PACU GABAPENTIN AND REGLAN DISCONTINUED PER eloise ABREU CRNA. Digitally Signed by Josie Ayers RN on 01/20/2024 01:18 PM [facility]10-21-2024 Note Discharge Instructions Thank you for allowing [facility] to assist you with your healthcare needs. The following is importantdischarge information regarding your hospital visit. Your Care Team KELLEY HERNANDEZ APRN - ARNIE BOWMAN Your Diagnosis Acute post-operative pain What to do next Scheduled Follow-Up Appointments Appointment Type When With Where Contact Information StatusENDO OV 01/28/2024 03:30 PM EDT LEV HOPE MD [facility] Physicians [facility] [address] [place] [address]- [phone] Confirmed GS OV Post Op 02/03/2024 03:00 PM EST SALVADOR BOWMAN MD [facility] General Surgery [place] Confirmed PC OV Follow Up 06/30/2024 03:20 PM EDT KEL[facility] App[facility]ments Follow Up with SALVADOR BOWMAN MD, Surgery Where:[address] [facility] [place] [address] [phone] Additional Information: CALL DR BOWMAN'S OFFICE SOON TO SCHEDULE A 2 WEEK FOLLOW UP APPOINTMENT AND WITH ANY QUESTIONS OR CONCERNS YOU MAY HAVE. GO TO THE EMERGENCY ROOM WITH ANY URGENT CONCERNS. The Following Activity and Diet Have Been Ordered for You Discharge Activity - Ordered -- Sexual [place] Restricted No bending, twisting, crawling or squatt, No shower or tub bath for 2 days; no driving for 5 days, no lifting >15 lbs, 01/20/24 12:08:00 EDT Discharge Diet - Ordered -- Follow the post-operative/post-procedure diet instructions provided by your physician's office.,01/20/24 12:08:00 EDT The Following Equipment Has Been Ordered for You Discharge Home Equipment Discharge Wound Care - Ordered -- Dressing Type: Dry sterile drsg, Remove dressing in two (2) days. Leave steristrips on until they fall off, 01/20/24 12:08:00 EDT Allergies NKA Medications Please ask your primary doctor or pharmacist before taking any other medication not listed, including over the counter drugs, herbal medications, vitamins and or supplements as they may interact withyour home medications. What How Much When Why Instructions Last Dose New acetaminophen-hydrocodone (Trinity 325- 5 mg oral tablet) 1 tab(s) by mouth Every 4 hours as needed for Pain, scale 1-6 Acute post-operative pain Duration: 5 Days Pickup at [facility] Unchanged amLODIPine (amLODIPine 5 mg oral tablet) 1 tab(s) by mouth Once a day Unchanged atorvastatin (atorvastatin 20 mg oral tablet) 1 tab(s) by mouth Once a day Hyperlipidemia LDL goal <100 Duration: 90 Days Unchanged cholecalciferol (Vitamin D (3) 45 units oral capsule) Unchanged dapagliflozin (Farxiga 10 mg oral tablet) 1 tab(s) by mouth Once a day Unchanged insulin lispro-insulin lispro protamine (Humalog Mix) (HumaLOG Mix 50/ 50 KwikPen 3 mL PEN) 15 unit(s) Subcutaneous Two (2) times a day Unchanged levothyroxine (levothyroxine 25 mcg (0.025 mg) oral tablet) 2 tab(s) by mouth Once a day Hypothyroidism in adult Duration: 90 Days Unchanged losartan (losartan 100 mg oral tablet) 1 tab(s) by mouth Once a day HTN, goal below 140/90 Duration: 90 Days Unchanged metFORMIN (MetFORMIN (Eqv-Glucophage XR) 500 mg oral tablet, EXTENDED RELEASE) 2 tab(s) by mouth Two (2) times a day Unchanged metoprolol (metoprolol succinate 25 mg oral TABLET extended release) 1 tab(s) by mouth Once a day HTN, goal below 140/90 Duration: 90 Days Do not crush or chew (controlled release) Unchanged multivitamin with minerals (Vitamin D with Minerals oral tablet) 1 tab(s) by mouth Once a day Unchanged semaglutide (Ozempic 4 mg/ 3 mL (1 mg dose) subcutaneous solution) 1 Milligram Subcutaneous Every week Pharmacy Information [facility]: [address] [place], [place] [phone] Please take this list to your next doctor s visit. Bring all medications you take, including over the counter medications, herbals and other supplements with you to your doctor s visit. Patients and families are reminded to discard old lists and to update any records with all medication providers or retail pharmacies. Medication Leaflets bupivacaine liposome (bue PIV a del toro LYE mart some) Exparel What is the most important information I should know about bupivacaine liposome? You may still feel numb or be unable to move the numbed area for up to 5 days after you are treatedwith bupivacaine liposome. What is bupivacaine liposome? Bupivacaine is an anesthetic (numbing medicine) that blocks nerve impulses in your body. Bupivacaine liposome is used as a local (in only one area) anesthetic to numb an area of your body for a minor surgery such as bunion removal or hemorrhoid surgery. Bupivacine liposome is also used as a nerve block after surgery on your shoulder or upper arm, to provide pain relief to the area. Bupivacaine may also be used for purposes not listed in this medication guide. What should I discuss with my healthcare provider before receiving bupivacaine liposome? You should not be treated with bupivacaine if you are allergic to it. Tell your doctor if you have ever had: an allergic reaction to any type of numbing medicine; liver disease; kidney disease; heart disease; a heart rhythm disorder; or seizures. It is not known whether this medicine will harm an unborn baby. Tell your doctor if you are . It may not be safe to breast-feed a baby while you are using this medicine. Ask your doctor about any risks. How is bupivacaine liposome given? Bupivacaine is given as an injection placed into an area near your surgical incision. You will receive this injection in a hospital or surgical setting. Bupivacaine liposome can have long-lasting or delayed effects. For at least 4 days (96 hours) afteryour surgery, tell any doctor or dentist who treats you that you recently received a bupivacaine liposome injection. Call your doctor if you have joint pain or stiffness, or weakness in any part of your body that occurs after your surgery, even months later. What happens if I miss a dose? Since bupivacaine liposome is used as a single dose, it does not have a daily dosing schedule. What happens if I overdose? Since this medication is given by a healthcare professional in a medical setting, an overdose is unlikely to occur. What should I avoid after receiving bupivacaine liposome? For at least 4 days (96 hours) after surgery, avoid using any pain or numbing medicines that contain lidocaine. This includes skin patches, sprays, creams, ointments, or gels applied to the skin. Follow your doctor's instructions. What are the possible side effects of bupivacaine liposome? Get emergency medical help if you have signs of an allergic reaction: hives, red rash, itching; sneezing, difficulty breathing; severe dizziness, vomiting; swelling of your face, lips, tongue, or throat. You will be watched closely after receiving bupivacaine liposome, to make sure you do not have a reaction to the medicine. Tell your caregivers at once if you have any of these signs of a serious side effect: ringing in your ears; drowsiness, feeling restless or anxious; feeling like you might pass out; speech or vision problems, a metallic taste in your mouth; numbness or tingling around your mouth; fast or slow heart rate, feeling short of breath, feeling unusually hot or cold; tremors, twitching, mood changes; ongoing numbness, weakness, or loss of movement where the medicine was injected; or joint pain or stiffness, or weakness in any part of your body for months after your surgery. You may still feel numb or be unable to move the numbed area for up to 5 days after you are treatedwith bupivacaine liposome. Common side effects include: nausea, vomiting; constipation; or fever. This is not a complete list of side effects and others may occur. Call your doctor for medical advice about side effects. You may report side effects to FDA at 1-401-HYQ-2909. What other drugs will affect bupivacaine liposome? Other drugs may affect bupivacaine liposome, including prescription and elqo-grg-gojywoc medicines,vitamins, and herbal products. Tell your doctor about all your current medicines and any medicine you start or stop using. Where can I get more information? Your doctor or pharmacist can provide more information about bupivacaine liposome. Remember, keep this and all other medicines out of the reach of children, never share your medicines with others, and use this medication only for the indication prescribed. Every effort has been made to ensure that the information provided by [employer]') is accurate, up-to-date, and complete, but no guarantee is made to that effect. Drug information contained herein may be time sensitive. [employer] information has been compiled for use by healthcare practitioners and consumers in the [place] and therefore [employer] does not warrant that uses outside of the [place] are appropriate, unless specifically indicated otherwise. [employer] drug information does not endorse drugs, diagnose patients or recommend therapy. [employer] drug information isan informational resource designed to assist licensed healthcare practitioners in caring for their p atients and/or to serve consumers viewing this service as a supplement to, and not a substitute for, the expertise, skill, knowledge and judgment of healthcare practitioners. The absence of a warningfor a given drug or drug combination in no way should be construed to indicate that the drug or drug combination is safe, effective or appropriate for any given patient. [facility] does not assume any responsibility for any aspect of healthcare administered with the aid of information [facility] provides. The information contained herein is not intended to cover all possible uses, directions, precautions, warnings, drug interactions, allergic reactions, or adverse effects. If you have questions about the drugs you are taking, check with your doctor, nurse or pharmacist. Copyright 6587-4580 [facility]. Version: 4.01. Revision Date: 07/22/2017. acetaminophen and hydrocodone (a SEET a MIN oh fen and kraig droe KOE done) Verdrocet What is the most important information I should know about acetaminophen and hydrocodone? MISUSE OF OPIOID MEDICINE CAN CAUSE ADDICTION, OVERDOSE, OR . Keep the medication in a place where others cannot get to it. Taking opioid medicine during may cause life-threatening withdrawal symptoms in the . Fatal side effects can occur if you use opioid medicine with alcohol, or with other drugs that cause drowsiness or slow your breathing. Stop taking this medicine and call your doctor right away if you have skin redness or a rash that spreads and causes blistering and peeling. What is acetaminophen and hydrocodone? Acetaminophen and hydrocodone is a combination medicine used to relieve moderate to severe pain. Acetaminophen and hydrocodone contains an opioid medicine, and may be habit-forming. Acetaminophen and hydrocodone may also be used for purposes not listed in this medication guide. What should I discuss with my healthcare provider before taking acetaminophen and hydrocodone? You should not use this medicine if you are allergic to acetaminophen or hydrocodone, or if you have: severe asthma or breathing problems; or a blockage in your stomach or intestines. Tell your doctor if you have ever had: breathing problems, sleep apnea (breathing stops during sleep); liver disease; a drug or alcohol addiction; kidney disease; a head injury or seizures; urination problems; or problems with your thyroid, pancreas, or gallbladder. If you use opioid medicine while you are , your baby could become dependent on the drug. This can cause life-threatening withdrawal symptoms in the baby after it is born. Babies born dependent on opioids may need medical treatment for several weeks. Ask a doctor before using opioid medicine if you are . Tell your doctor if you notice severe drowsiness or slow breathing in the nursing baby. How should I take acetaminophen and hydrocodone? Follow all directions on your prescription label. Never take this medicine in larger amounts, or for longer than prescribed. An overdose can damage your liver or cause . Tell your doctor if you feel an increased urge to use more of this medicine. Never share this medicine with another person, especially someone with a history of drug abuse or addiction. MISUSE CAN CAUSE ADDICTION, OVERDOSE, OR . Keep the medicine in a place where others cannot get to it. Selling or giving away this medicine is against the law. Measure liquid medicine carefully. Use the dosing syringe provided, or use a medicine dose-measuring device (not a kitchen spoon). If you need surgery or medical tests, tell the doctor ahead of time that you are using this medicine. You should not stop using this medicine suddenly. Follow your doctor's instructions about tapering your dose. Store at room temperature away from moisture and heat. Keep track of your medicine. You should be aware if anyone is using it improperly or without a prescription. Do not keep leftover opioid medication. Just one dose can cause in someone using this medicine accidentally or improperly. Ask your pharmacist where to locate a drug take-back disposal program.If there is no take-back program, flush the unused medicine down the toilet. What happens if I miss a dose? Since this medicine is used for pain, you are not likely to miss a dose. Skip any missed dose if itis almost time for your next dose. Do not use two doses at one time. What happens if I overdose? Seek emergency medical attention or call the Poison Help line at . An overdose of this medicine can be fatal, especially in a child or other person using the medicine without a prescription. Overdose symptoms may include nausea, vomiting, sweating, severe drowsiness, pinpoint pupils, slow breathing, or no breathing. Your doctor may recommend you get naloxone (a medicine to reverse an opioid overdose) and keep it with you at all times. A person caring for you can give the naloxone if you stop breathing or don't wake up. Your caregiver must still get emergency medical help and may need to perform CPR (cardiopulmonary resuscitation) on you while waiting for help to arrive. Anyone can buy naloxone from a pharmacy or local health department. Make sure any person caring foryou knows where you keep naloxone and how to use it. What should I avoid while taking acetaminophen and hydrocodone? Avoid driving or operating machinery until you know how this medicine will affect you. Dizziness ordrowsiness can cause falls, accidents, or severe injuries. Do not drink alcohol. Dangerous side effects or could occur. Ask a doctor or pharmacist before using any other medicine that may contain acetaminophen (sometimes abbreviated as APAP). Taking certain medications together can lead to a fatal overdose. What are the possible side effects of acetaminophen and hydrocodone? Get emergency medical help if you have signs of an allergic reaction: hives; difficulty breathing; swelling of your face, lips, tongue, or throat. Opioid medicine can slow or stop your breathing, and may occur. A person caring for you should give naloxone and/or seek emergency medical attention if you have slow breathing with long pauses,blue colored lips, or if you are hard to wake up. In rare cases, acetaminophen may cause a severe skin reaction that can be fatal. This could occur even if you have taken acetaminophen in the past and had no reaction. Stop taking this medicine and call your doctor right away if you have skin redness or a rash that spreads and causes blistering andpeeling. Call your doctor at once if you have: noisy breathing, sighing, shallow breathing, breathing that stops; a light-headed feeling, like you might pass out; liver problems--nausea, upper stomach pain, tiredness, loss of appetite, dark urine, elodia-colored stools, jaundice (yellowing of the skin or eyes); low cortisol levels-- nausea, vomiting, loss of appetite, dizziness, worsening tiredness or weakness; o high levels of serotonin in the body--agitation, hallucinations, fever, sweating, shivering, fast heart rate, muscle stiffness, twitching, loss of coordination, nausea, vomiting, diarrhea. Serious breathing problems may be more likely in older adults and in those who are debilitated or have wasting syndrome or chronic breathing disorders. Common side effects include: dizziness, drowsiness, feeling tired; nausea, vomiting, stomach pain; constipation; or headache. This is not a complete list of side effects and others may occur. Call your doctor for medical advice about side effects. You may report side effects to FDA at 3-015-EMG-3311. What other drugs will affect acetaminophen and hydrocodone? You may have breathing problems or withdrawal symptoms if you start or stop taking certain other medicines. Tell your doctor if you also use an antibiotic, antifungal medication, heart or blood pressure medication, seizure medication, or medicine to treat HIV or hepatitis C. Opioid medication can interact with many other drugs and cause dangerous side effects or . Be sure your doctor knows if you also use: cold or allergy medicines, bronchodilator asthma/COPD medication, or a diuretic ('water pill'); medicines for motion sickness, irritable bowel syndrome, or overactive bladder; other opioids--opioid pain medicine or prescription cough medicine; a sedative like Valium--diazepam, alprazolam, lorazepam, Xanax, Klonopin, Versed, and others; drugs that make you sleepy or slow your breathing--a sleeping pill, muscle relaxer, medicine to treat mood disorders or mental illness; drugs that affect serotonin levels in your body--a stimulant, or medicine for depression, Parkinson's disease, migraine headaches, serious infections, or nausea and vomiting. This list is not complete. Other drugs may affect acetaminophen and hydrocodone, including prescription and psns-nkf-odbwimu medicines, vitamins, and herbal products. Not all possible interactions are listed here. Where can I get more information? Your doctor or pharmacist can provide more information about acetaminophen and hydrocodone. Remember, keep this and all other medicines out of the reach of children, never share your medicines with others, and use this medication only for the indication prescribed. Every effort has been made to ensure that the information provided by [employer] is accurate, up-to-date, and complete, but no guarantee is made to that effect. Drug information contained herein may be time sensitive. [employer] information has been compiled for use by healthcare practitioners and consumers in the [place] and therefore [employer] does not warrant that uses outside of the [place] are appropriate, unless specifically indicated otherwise. [employer] drug information does not endorse drugs, diagnose patients or recommend therapy. [employer] drug information isan informational resource designed to assist licensed healthcare practitioners in caring for their p atients and/or to serve consumers viewing this service as a supplement to, and not a substitute for, the expertise, skill, knowledge and judgment of healthcare practitioners. The absence of a warningfor a given drug or drug combination in no way should be construed to indicate that the drug or drug combination is safe, effective or appropriate for any given patient. [facility] does not assume any responsibility for any aspect of healthcare administered with the aid of information [facility] provides. The information contained herein is not intended to cover all possible uses, directions, precautions, warnings, drug interactions, allergic reactions, or adverse effects. If you have questions about the drugs you are taking, check with your doctor, nurse or pharmacist. Copyright 4986-5830 [facility]. Version: 19.02. Revision Date: 07/09/2023. Education Materials How to Use Compression Stockings Compression stockings are elastic socks that squeeze the legs. They help increase blood flow (circulation) to the legs, decrease swelling in the legs, and reduce the chance of developing blood clots in the lower legs. Compression stockings are often used by people who: Are recovering from surgery. Have poor circulation in their legs. Tend to get blood clots in their legs. Have bulging (varicose) veins. Sit or stay in bed for long periods of time. Follow instructions from your health care provider about how and when to wear your compression stockings. How to wear compression stockings Before you put on your compression stockings: Make sure that they are the correct size and degree of compression. If you do not know your size orrequired grade of compression, ask your health care provider and follow the textile dyer's instructions that come with the stockings. Make sure that they are clean, dry, and in good condition. Check them for rips and tears. Do not put them on if they are ripped or torn. Put your stockings on first thing in the morning, before you get out of bed. Keep them on for as long as your health care provider advises. When you are wearing your stockings: Keep them as smooth as possible. Do not allow them to bunch up. It is especially important to prevent the stockings from bunching up around your toes or behind your knees. Do not roll the stockings downward and leave them rolled down. This can decrease blood flow to yourleg. Change them right away if they become wet or dirty. When you take off your stockings, inspect your legs and feet. Check for: Open sores. Red spots. Swelling. General tips Do not stop wearing compression stockings without talking to your health care provider first. Wash your stockings every day with mild detergent in cold or warm water. Do not use bleach. Air-dryyour stockings or dry them in a clothes dryer on low heat. It may be helpful to have two pairs so that you have a pair to wear while the other is being washed. Replace your stockings every 3 6 months. If skin moisturizing is part of your treatment plan, apply lotion or cream at night so that your skin will be dry when you put on the stockings in the morning. It is harder to put the stockings on when you have lotion on your legs or feet. Wear nonskid shoes or slip-resistant socks when walking while wearing compression stockings. Contact a health care provider and remove your stockings if you have: A feeling of pins and needles in your feet or legs. Open sores, red spots, or other skin changes on your feet or legs. Swelling or pain that gets worse. Get help right away if you have: Numbness or tingling in your lower legs that does not get better right after you take the stockingsoff. Toes or feet that are unusually cold or turn a bluish color. A warm or red area on your leg. New swelling or soreness in your leg. Shortness of breath. Chest pain. A fast or irregular heartbeat. Light-headedness. Dizziness. Summary Compression stockings are elastic socks that squeeze the legs. They help increase blood flow (circulation) to the legs, decrease swelling in the legs, and reduce the chance of developing blood clots in the lower legs. Follow instructions from your health care provider about how and when to wear your compression stockings. Do not stop wearing your compression stockings without talking to your health care provider first. This information is not intended to replace advice given to you by your health care provider. Make sure you discuss any questions you have with your health care provider. Document Released: 01/13/2010 Document Revised: 03/20/2018 Document Reviewed: 03/20/2018 [employer] Patient Education 2020 [employer] General Anesthesia, Adult, Care After This sheet gives you information about how to care for yourself after your procedure. Your health care provider may also give you more specific instructions. If you have problems or questions, contact your health care provider. What can I expect after the procedure? After the procedure, the following side effects are common: Pain or discomfort at the IV site. Nausea. Vomiting. Sore throat. Trouble concentrating. Feeling cold or chills. Weak or tired. Sleepiness and fatigue. Soreness and body aches. These side effects can affect parts of the body that were not involved in surgery. Follow these instructions at home: For at least 24 hours after the procedure: Have a responsible adult stay with you. It is important to have someone help care for you until youare awake and alert. Rest as needed. Do not: ? Participate in activities in which you could fall or become injured. ? Drive. ? Use heavy machinery. ? Drink alcohol. ? Take sleeping pills or medicines that cause drowsiness. ? Make important decisions or sign legal documents. ? Take care of children on your own. Eating and drinking Follow any instructions from your health care provider about eating or drinking restrictions. When you feel hungry, start by eating small amounts of foods that are soft and easy to digest (bland), such as toast. Gradually return to your regular diet. Drink enough fluid to keep your urine pale yellow. If you vomit, rehydrate by drinking water, juice, or clear broth. General instructions If you have sleep apnea, surgery and certain medicines can increase your risk for breathing problems. Follow instructions from your health care provider about wearing your sleep device: ? Anytime you are sleeping, including during daytime naps. ? While taking prescription pain medicines, sleeping medicines, or medicines that make you drowsy. Return to your normal activities as told by your health care provider. Ask your health care provider what activities are safe for you. Take twvo-atu-urtibst and prescription medicines only as told by your health care provider. If you smoke, do not smoke without supervision. Keep all follow-up visits as told by your health care provider. This is important. Contact a health care provider if: You have nausea or vomiting that does not get better with medicine. You cannot eat or drink without vomiting. You have pain that does not get better with medicine. You are unable to pass urine. You develop a skin rash. You have a fever. You have redness around your IV site that gets worse. Get help right away if: You have difficulty breathing. You have chest pain. You have blood in your urine or stool, or you vomit blood. Summary After the procedure, it is common to have a sore throat or nausea. It is also common to feel tired. Have a responsible adult stay with you for the first 24 hours after general anesthesia. It is important to have someone help care for you until you are awake and alert. When you feel hungry, start by eating small amounts of foods that are soft and easy to digest (bland), such as toast. Gradually return to your regular diet. Drink enough fluid to keep your urine pale yellow. Return to your normal activities as told by your health care provider. Ask your health care provider what activities are safe for you. This information is not intended to replace advice given to you by your health care provider. Make sure you discuss any questions you have with your health care provider. Document Released: 06/24/2001 Document Revised: 03/21/2018 Document Reviewed: 11/01/2017 [employer] Patient Education 2020 [employer] Deep Vein Thrombosis Deep vein thrombosis (DVT) is a condition in which a blood clot forms in a deep vein, such as a lower leg, thigh, or arm vein. A clot is blood that has thickened into a gel or solid. This condition is dangerous. It can lead to serious and even life-threatening complications if the clot travels to the lungs and causes a blockage (pulmonary embolism). It can also damage veins in the leg. This can result in leg pain, swelling, discoloration, and sores (post-thrombotic syndrome). What are the causes? This condition may be caused by: A slowdown of blood flow. Damage to a vein. A condition that causes blood to clot more easily, such as an inherited clotting disorder. What increases the risk? The following factors may make you more likely to develop this condition: Being overweight. Being older, especially over age 60. Sitting or lying down for more than four hours. Being in the hospital. Lack of physical activity (sedentary lifestyle). , being in childbirth, or having recently given . Taking medicines that contain estrogen, such as medicines to prevent . Smoking. A history of any of the following: ? Blood clots or a blood clotting disease. ? Peripheral vascular disease. ? Inflammatory bowel disease. ? Cancer. ? Heart disease. ? Genetic conditions that affect how your blood clots, such as Factor V Leiden mutation. ? Neurological diseases that affect your legs (leg paresis). ? A recent injury, such as a car accident. ? Major or lengthy surgery. ? A central line placed inside a large vein. What are the signs or symptoms? Symptoms of this condition include: Swelling, pain, or tenderness in an arm or leg. Warmth, redness, or discoloration in an arm or leg. If the clot is in your leg, symptoms may be more noticeable or worse when you stand or walk. Some people may not develop any symptoms. How is this diagnosed? This condition is diagnosed with: A medical history and physical exam. Tests, such as: ? Blood tests. These are done to check how well your blood clots. ? Ultrasound. This is done to check for clots. ? Venogram. For this test, contrast dye is injected into a vein and X-rays are taken to check for anyclots. How is this treated? Treatment for this condition depends on: The cause of your DVT. Your risk for bleeding or developing more clots. Any other medical conditions that you have. Treatment may include: Taking a blood thinner (anticoagulant). This type of medicine prevents clots from forming. It may be taken by mouth, injected under the skin, or injected through an IV (catheter). Injecting clot-dissolving medicines into the affected vein (catheter-directed thrombolysis). Having surgery. Surgery may be done to: ? Remove the clot. ? Place a filter in a large vein to catch blood clots before they reach the lungs. Some treatments may be continued for up to six months. Follow these instructions at home: If you are taking blood thinners: Take the medicine exactly as told by your health care provider. Some blood thinners need to be taken at the same time every day. Do not skip a dose. Talk with your health care provider before you take any medicines that contain aspirin or NSAIDs. These medicines increase your risk for dangerous bleeding. Ask your health care provider about foods and drugs that could change the way the medicine works (may interact). Avoid those things if your health care provider tells you to do so. Blood thinners can cause easy bruising and may make it difficult to stop bleeding. Because of this: ? Be very careful when using knives, scissors, or other sharp objects. ? Use an electric razor instead of a blade. ? Avoid activities that could cause injury or bruising, and follow instructions about how to prevent falls. Wear a medical alert bracelet or carry a card that lists what medicines you take. General instructions Take ltcq-qri-spimftr and prescription medicines only as told by your health care provider. Return to your normal activities as told by your health care provider. Ask your health care provider what activities are safe for you. Wear compression stockings if recommended by your health care provider. Keep all follow-up visits as told by your health care provider. This is important. How is this prevented? To lower your risk of developing this condition again: For 30 or more minutes every day, do an activity that: ? Involves moving your arms and legs. ? Increases your heart rate. When traveling for longer than four hours: ? Exercise your arms and legs every hour. ? Drink plenty of water. ? Avoid drinking alcohol. Avoid sitting or lying for a long time without moving your legs. If you have surgery or you are hospitalized, ask about ways to prevent blood clots. These may include taking frequent walks or using anticoagulants. Stay at a healthy weight. If you are a woman who is older than age 35, avoid unnecessary use of medicines that contain estrogen, such as some control pills. Do not use any products that contain nicotine or tobacco, such as cigarettes and e-cigarettes. Thisis especially important if you take estrogen medicines. If you need help quitting, ask your health care provider. Contact a health care provider if: You miss a dose of your blood thinner. Your menstrual period is heavier than usual. You have unusual bruising. Get help right away if: You have: ? New or increased pain, swelling, or redness in an arm or leg. ? Numbness or tingling in an arm or leg. ? Shortness of breath. ? Chest pain. ? A rapid or irregular heartbeat. ? A severe headache or confusion. ? A cut that will not stop bleeding. There is blood in your vomit, stool, or urine. You have a serious fall or accident, or you hit your head. You feel light-headed or dizzy. You cough up blood. These symptoms may represent a serious problem that is an emergency. Do not wait to see if the symptoms will go away. Get medical help right away. Call your local emergency services (911 in the [place] Do not drive yourself to the hospital. Summary Deep vein thrombosis (DVT) is a condition in which a blood clot forms in a deep vein, such as a lower leg, thigh, or arm vein. Symptoms can include swelling, warmth, pain, and redness in your leg or arm. This condition may be treated with a blood thinner (anticoagulant medicine), medicine that is injected to dissolve blood clots,compression stockings, or surgery. If you are prescribed blood thinners, take them exactly as told. This information is not intended to replace advice given to you by your health care provider. Make sure you discuss any questions you have with your health care provider. Document Released: 03/18/2006 Document Revised: 02/28/2018 Document Reviewed: 08/16/2017 [employer] Patient Education 2020 [employer]. Laparoscopic Ventral Hernia Repair, Care After This sheet gives you information about how to care for yourself after your procedure. Your health care provider may also give you more specific instructions. If you have problems or questions, contact your health care provider. What can I expect after the procedure? After the procedure, it is common to have: Pain, discomfort, or soreness. Follow these instructions at home: Incision care Follow instructions from your health care provider about how to take care of your incision. Make sure you: ? Wash your hands with soap and water before you change your bandage (dressing) or before you touch your abdomen. If soap and water are not available, use hand freight rate analyst. ? Change your dressing as told by your health care provider. ? Leave stitches (sutures), skin glue, or adhesive strips in place. These skin closures may need to stay in place for 2 weeks or longer. If adhesive strip edges start to loosen and curl up, you may trim the loose edges. Do not remove adhesive strips completely unless your health care provider tells you to do that. Check your incision area every day for signs of infection. Check for: ? Redness, swelling, or pain. ? Fluid or blood. ? Warmth. ? Pus or a bad smell. Bathing Do not take baths, swim, or use a hot tub until your health care provider approves. Ask your healthcare provider if you can take showers. You may only be allowed to take sponge baths for bathing. Keep your bandage (dressing) dry until your health care provider says it can be removed. Activity Do not lift anything that is heavier than 10 lb (4.5 kg) until your health care provider approves. Do not drive or use heavy machinery while taking prescription pain medicine. Ask your health care provider when it is safe for you to drive or use heavy machinery. Do not drive for 24 hours if you were given a medicine to help you relax (sedative) during your procedure. Rest as told by your health care provider. You may return to your normal activities when your health care provider approves. General instructions Take dymy-zmn-qnyhqhg and prescription medicines only as told by your health care provider. To prevent or treat constipation while you are taking prescription pain medicine, your health care provider may recommend that you: ? Take rntl-xof-ijugrob or prescription medicines. ? Eat foods that are high in fiber, such as fresh fruits and vegetables, whole grains, and beans. ? Limit foods that are high in fat and processed sugars, such as fried and sweet foods. Drink enough fluid to keep your urine clear or pale yellow. Hold a pillow over your abdomen when you cough or sneeze. This helps with pain. Keep all follow-up visits as told by your health care provider. This is important. Contact a health care provider if: You have: ? A fever or chills. ? Redness, swelling, or pain around your incision. ? Fluid or blood coming from your incision. ? Pus or a bad smell coming from your incision. ? Pain that gets worse or does not get better with medicine. ? Nausea or vomiting. ? A cough. ? Shortness of breath. Your incision feels warm to the touch. You have not had a bowel movement in three days. You are not able to urinate. Get help right away if: You have severe pain in your abdomen. You have persistent nausea and vomiting. You have redness, warmth, or pain in your leg. You have chest pain. You have trouble breathing. Summary After this procedure, it is common to have pain, discomfort, or soreness. Follow instructions from your health care provider about how to take care of your incision. Check your incision area every day for signs of infection. Report any signs of infection to your health care provider. Keep all follow-up visits as told by your health care provider. This is important. This information is not intended to replace advice given to you by your health care provider. Make sure you discuss any questions you have with your health care provider. Document Released: 03/04/2013 Document Revised: 02/28/2018 Document Reviewed: 11/07/2016 [employer] Patient Education 2020 [employer] How To Use an Incentive Spirometer An incentive spirometer is a tool that measures how well you are filling your lungs with each breath. Learning to take long, deep breaths using this tool can help you keep your lungs clear and active. This may help to reverse or lessen your chance of developing breathing (pulmonary) problems, especially infection. You may be asked to use a spirometer: After a surgery. If you have a lung problem or a history of smoking. After a long period of time whe (more content not included)... [facility]10-21-2024 Anesthesiology Consult note Patient: CORINNE CORREA Age: 73 years Sex: Male : 1950 Associated Diagnoses: None Author: JERRY ABREU Preoperative Information Anesthesia history Patient's history: negative. Family's history: negative. Health Status Allergies: Allergic Reactions (Selected) NKA, Allergies (1) ActiveSeverityReaction NKANone Documented Current medications: (Selected) Inpatient Medications Ordered LR 1000 mL: 20 mL/hr, Intravenous gabapentin: 300 mg, 1 cap(s), Oral, PREOP pharm Prescriptions Prescribed Farxiga 10 mg oral tablet: 10 mg, 1 tab(s), Oral, qDay, 90 tab(s), 3 Refill(s) MetFORMIN (Eqv-Glucophage XR) 500 mg oral tablet, EXTENDED RELEASE: 1,000 mg, 2 tab(s), Oral, BID, 360 tab(s), 2 Refill(s) Ozempic 4 mg/3 mL (1 mg dose) subcutaneous solution: 1 mg, Subcutaneous, qWeek, 9 mL, 1 Refill(s) amLODIPine 5 mg oral tablet: 5 mg, 1 tab(s), Oral, qDay, 90 tab(s), 3 Refill(s) atorvastatin 20 mg oral tablet: 20 mg, 1 tab(s), Oral, qDay, for 90 day(s), 90 tab(s), 1 Refill(s) levothyroxine 25 mcg (0.025 mg) oral tablet: 50 mcg, 2 tab(s), Oral, qDay, for 90 day(s), 180 tab(s), 1 Refill(s) losartan 100 mg oral tablet: 100 mg, 1 tab(s), Oral, qDay, for 90 day(s), 90 tab(s), 1 Refill(s) metoprolol succinate 25 mg oral TABLET extended release: 25 mg, 1 tab(s), Oral, qDay, for 90 day(s), Do not crush or chew (controlled release), 90 tab(s), 1 Refill(s) Documented Medications Documented HumaLOG Mix 50/50 KwikPen 3 mL PEN: 15 unit(s), Subcutaneous, BID, 3 mL, 0 Refill(s) Vitamin D (3) 45 units oral capsule: 0 Refill(s) Vitamin D with Minerals oral tablet: 1 tab(s), Oral, qDay, 30 tab(s), 0 Refill(s), Medications (2) Active Scheduled: (1) gabapentin 300 mg Capsule 300 mg 1 cap(s), Oral, PREOP pharm Continuous: (1) Lactated Ringers Infusion 1000 mL 1,000 mL, Intravenous, 20 mL/hr PRN: (0) Problem list: Medical History of ventral hernia / SNOMED CT 383172891 / Confirmed Hernia centeral/midline, ventricle (large) / SNOMED CT 4380552248 / Confirmed History of basal cell carcinoma (BCC) of skin, nose / SNOMED CT 8188010509 / Confirmed History of COVID-19 / SNOMED CT 3154925410 / Confirmed Hyperlipidemia LDL goal <100 / SNOMED CT 35757285 / Confirmed HTN, goal below 140/90 / SNOMED CT 7389386684 / Confirmed Hypothyroidism in adult / SNOMED CT 76889534 / Confirmed Increased BMI (body mass index) / SNOMED CT 49931724 / Confirmed Increased BMI / SNOMED CT 60029746 / Confirmed Laceration of skin of right hand / SNOMED CT 4341658107 / Confirmed Non-smoker / SNOMED CT 23578654 / Confirmed Screening for prostate cancer / SNOMED CT 851078252 / Confirmed Medicare annual wellness visit, subsequent / SNOMED CT 650718108 / Confirmed Screening for abdominal aortic aneurysm / SNOMED CT 239169334 / Confirmed Screening for cardiovascular condition / SNOMED CT 331872858 / Confirmed Screening for glaucoma / SNOMED CT 573319881 / Confirmed Screening for colorectal cancer / SNOMED CT 382493662 / Confirmed Risk and functional assessment / SNOMED CT 181160284 / Confirmed DM type 2, goal HbA1c < 7.5% / SNOMED CT 016074013 / Confirmed Hernia, umbilical / SNOMED CT 1343408837 / Confirmed Vitamin D deficiency / SNOMED CT 36052765 / Confirmed, Active Problems (21) DM type 2, goal HbA1c < 7.5% Hernia centeral/midline, ventricle (large) Hernia, umbilical History of basal cell carcinoma (BCC) of skin, nose History of COVID-19 History of ventral hernia HTN, goal below 140/90 Hyperlipidemia LDL goal <100 Hypothyroidism in adult Increased BMI Increased BMI (body mass index) Laceration of skin of right hand Medicare annual wellness visit, subsequent Non-smoker Risk and functional assessment Screening for abdominal aortic aneurysm Screening for cardiovascular condition Screening for colorectal cancer Screening for glaucoma Screening for prostate cancer Vitamin D deficiency Histories Past Medical History: Resolved Overweight (207792528): Resolved. Basal cell carcinoma of nose (6379682110): Resolved. COVID-19 virus infection (0955118293): Resolved. Family History: Hypertension Mother Father Heart disease Father Stroke Sister Hodgkin disease Sister Procedure history: Colonoscopy ([id number]) on 09/29/2008 at 58 Years. Hernia ([id number]). Surgery ([id number]). Comments: 11/10/2020 14:07 Bernarda Finch LPN Right hand Surgery ([id number]). Comments: 11/10/2020 14:07 Bernarda Finch LPN Achilles tendon Social History: Social & Psychosocial Habits Alcohol 01/17/2024 Use: Current Type: Liquor Frequency: Daily Has alcohol use interfered with work or home life: No Substance Abuse 01/17/2024 Use: Never Tobacco 01/17/2024 Tobacco Use: Former smoker, quit more Type: Cigarettes Number of years: 30 Home/Environment 01/17/2024 Living situation: Home/Independent Domestic Concerns None Lives In Multilevel home Spouse Name JESSICA Marital Status of Patient if Patient Independent Adult: Nutrition/Health 01/17/2024 Type of diet: Regular Caffeine intake amount: Pop Eating Difficulties None Physical Examination Vital Signs 01/20/2024 7:32 EDT Temperature Temporal Artery 36.2 DegC Apical Heart Rate 76 bpm Respiratory Rate 16 br/min Systolic Blood Pressure Non-Invasive 184 mmHg HI Diastolic Blood Pressure Non-Invasive 82 mmHg Vital Signs (last 24 hrs) Last Charted Temp Tdlnvxkq33.2 DegC (JAN 19 07:32) Heart Rate Smyvyl57 bpm (JAN 19 07:32) SBPH 184 mmHg (JAN 19:32) DBP82 mmHg (JAN 19 07:32) BMI38.59 (JAN 19 07:50) Measurements from flowsheet : Measurements 01/20/2024 7:50 EDT Height 177.8 cm Admission Weight 122 kg Hoagland Body Weight 73.00 kg BSA Admission 2.37 Body Mass Index 38.59 kg/m2 01/20/2024 7:32 EDT Height 177.8 cm Admission Weight 122 kg Hoagland Body Weight 73.00 kg Admission Body Mass Index 38.59 m2 Pain assessment: Pain Assessment 01/20/2024 7:32 EDT Primary Pain Intensity 0 Pain Scale Type 0-10 Pain scale . General: Alert and oriented, No acute distress. Airway: Normal temporomandibular joint mobility. Mallampati classification: II (soft palate, fauces, uvula visible). Dentition Evaluation: Denies loose/chipped teeth. Respiratory: Lungs are clear to auscultation, Respirations are non-labored. Cardiovascular: Normal rate, Regular rhythm. Neurologic: Alert, Oriented. Review / Management Results review: No qualifying data available , Lab results 01/20/2024 7:56 EDT ibuprofen 800 mg mg Dextrose 5% in Water 250 mL mL 01/20/2024 7:50 EDT Designated Person #1 We May Share ROHAN LOPEZ [phone] Designated Person #1 Relationship Spouse Height 177.8 cm Admission Weight 122 kg Hoagland Body Weight 73.00 kg BSA Admission 2.37 Body Mass Index 38.59 kg/m2 Status N/A Sensory Deficits None Infectious Disease Symptoms Patient states no symptoms Infectious Disease Recent Exposure No Alcohol and Drug Use No Employee of Institutional Living No Health Care Employee No History of Exposure to TB No History of Positive Chest X-Ray for TB No History of Positive TB Skin Test No Homeless No Known Immunosuppression No Recent Immigrant No Resident of Institutional Living No Bloody Sputum No Fatigue No Fever No Loss of Appetite No Night Sweats No Persistent Cough > 3 Weeks No Weight Loss No Barriers to Learning None evident Teaching Method Explanation, Printed materials Preferred Spoken Language Nigerien Preferred Written Language Nigerien Patient's Current Physicians Patient's Current Physicians Discharge To, Anticipated Home with family care Prev Test Positive/Diagnosis w/COVID-19 Yes Previous COVID-19 Positive Date 2020 Current Quarantine/Isolated any Illness No Any Contact with Sick Animals/Birds No Traveled Anywhere in Last 30 Days No N/A Personal Devices, Patient Valuables None Admission Note-Nursing Procedure/Therapy Intake 01/20/2024 7:48 EDT Continuous IV Infusions LR Forearm Right 01/20/2024 20 gauge Peripheral IV Activity: Insert new site Peripheral IV Dressing Condition: Clean, Dry, Intact Peripheral IV Dressing Activity: Applied, Transparent dressing Peripheral IV Line Status/Patency: Continuous infusion Peripheral IV Line Care: Secured with tape Peripheral IV Site Condition: No complications Peripheral IV Equipment: Extension set Peripheral IV Number of Attempts: 1 01/20/2024 7:47 EDT Lactated Ringers Injection Begin Bag 1,000 mL mL 01/20/2024 7:32 EDT Height 177.8 cm Admission Weight 122 kg [place] Body Weight 73.00 kg Admission Body Mass Index 38.59 m2 Temperature Temporal Artery 36.2 DegC Apical Heart Rate 76 bpm Respiratory Rate 16 br/min Systolic Blood Pressure Non-Invasive 184 mmHg HI Diastolic Blood Pressure Non-Invasive 82 mmHg Primary Pain Intensity 0 Pain Scale Type 0-10 Pain scale Heart Sounds ICU S1S2 Heart Rhythm Regular All Lobes Breath Sounds Clear, Diminished Oxygen Therapy Room air Oxygen Saturation 95 % Bowel Sounds All Quadrants Present Urinary Elimination Voiding, no difficulties Skin Temperature Warm Skin Description [place], Dry Skin Integrity Intact Mucous Membrane Color [place] Skin Moisture General Dry Characteristics of Speech Clear Level of Consciousness Alert Strength All Extremities Strong Affect/Behavior Appropriate, Calm, Cooperative Orientation Oriented x 4 Patient Identified Identification band, Verbal Arrival Mode Ambulatory Ed Motor (2) Moves 4 extremities voluntarily or on command Ed Respirations (2) Spontaneous respiration without support, RR > 10 Ed Oxygen Saturation (2) 94% or more Ed Level of Consciousness (2) Fully awake Assistive Device None Sequential Compression Device bilateral knee high applied/on Standard Safety ID band on, Call device within reach, Bed in low position, Wheels locked, Non-Slip footwear 01/20/2024 7:26 EDT Blood Glucose, Capillary 123 mg/dL HI Allergies No Anesthesia Extension Set Applied Yes Senior Search Marketing Analyst On Yes Consent Form Signed Yes Patient Dressed In Hospital gown CHG Preoperative Wash/Wipe Night before procedure, Day of procedure Preop Nasal Swab Povidone-Iodine History & Physical Update On Chart Yes History & Physical On Chart Yes Obstructive Sleep Apnea Assess Completed Yes Belongings At Bedside CPAP, Jacket, Pants, Shirt, Shoes, Socks Personal Home Medications Received No home medications were brought in Belongings Sent Home None Belongings to Security/Secured in Dept None NPO Status Maintained Allergy Band on and Verified No Patient ID Band on and Verified Yes Implants Verified Yes Pacemaker/AICD Verified Yes Site Verified by Patient/Family Yes Anesthesia Consent Signed Yes Blood Consent Signed Yes Last Fluid Intake 01/19/2024 21:00 Last Food Intake 01/19/2024 17:00 Last Void 01/20/2024 7:00 . Assessment and Plan [place] [employer] (ASA) physical status classification: Class III. Anesthetic Preoperative Plan Anesthetic technique: General. Maintenance airway: Oral endotracheal tube. Postoperative pain management: Per surgeon. Risks discussed: nausea, vomiting, sore throat, dental injury, hypotension, allergic reaction, serious complications. Informed consent: signed by patient. Digitally Signed by JERRY ABREU on 01/20/2024 07:59 AM [facility]07-15-2023 Hospital Discharge instructions Additional Instructions Stitches need removed in 10 to 14 days. Keep clean and dry. You can shower and then gently pat the area dry. If any signs of infection develop come back immediately including redness, swelling, increased pain or pus.[facility] Work Phone: Anesthesiology Consult note* LUISITO MCNEILL DO: PERFORM, SIGN, VERIFY Event Display: Anesthesiology Consultation Authored Date: Patient: CORINNE CORREA Age: 73 years Sex: Male : 1950 Associated Diagnoses: None Author: LUISITO MCNEILL DO Preoperative Information greater than 8 hours solid foods, greater than 2 hours clear liquids Anesthesia history Patient's history: negative. Family's history: negative. History of Present Illness Please refer to most recent H and P / daily progress note / consultation note for further details 1. Acute respiratory failure requiring intubation 01/21/2024 with continued mechanical ventilation 2. Status post removal of wound VAC, abdominal exploration, closure of abdominal wall, MADDY drain x 5remain, 01/27 3. Pneumoperitoneum with bile leak status post robotic assisted diagnostic laparoscopic, exploratory lap, abdominal washout, extraction of abdominal wall with mesh, debridement of abdominal wall and placement of open abdominal wound VAC (01/21/2024), second look laparotomy, removal of wound VAC, debridement and closure of abdominal wall (01/23/2024) and exploratory lap, cholecystectomy, wound VACplacement, right side chest tube placement (01/24/2024) 4. Umbilical hernia status post robotic assisted umbilical hernia preperitoneal repair with mesh (01/20/2024) 5. Acute kidney injury, improving 6. Septic shock resolved 7. Atrial fibrillation RVR resolved, remains in sinus rhythm 8. DVT involving left gastrocnemius vein 9. Poor nutrition 10. Hypernatremia-improving 11. History of hypertension, diabetes mellitus, ALICIA on BiPAP, dyslipidemia, hypothyroidism, morbid obesity, daily alcohol use, and former smoker Health Status Allergies: Allergic Reactions (Selected) NKA, Allergies (1) ActiveSeverityReaction NKANone Documented Current medications: (Selected) Inpatient Medications Ordered Dextrose: 25 g, 50 mL, IV Push, AsDirected, PRN: Low blood sugar DuoNeb: 3 mL, Inhalation, q6hRT HumuLIN R: sliding scale insulin, Subcutaneous, q4h, PRN: Protocol, glycemic control Insulin Regular for IV 100 unit(s) + NS Premix Diluent 100 mL: Sliding Scale Insulin, Intravenous Trinity 325- 5 mg oral tablet: 1 tab(s), Oral, q4h, PRN: Pain, scale 1-6 Trinity 325- 5 mg oral tablet: 2 tab(s), Oral, q6h, PRN: Pain, scale 7-10 Norepinephrine for IV 8 mg [5 mcg/min] + NS PMX titrate 250 mL: 9.38 mL/hr, Intravenous Peridex 0.12% oral rinse liquid: 15 mL, Swish & Spit, QID Puralube ophth solution: 1 drop(s), Eyes, both, AsDirected, PRN: Protocol, eye care Puralube ophth solution: 1 drop(s), Eyes, both, q8h Puralube ophthalmic ointment: 1 mendy, Eyes, both, AsDirected, PRN: Protocol, eye care Puralube ophthalmic ointment: 1 mendy, Eyes, both, q8h Sublimaze: 25 mcg, 0.5 mL, IV Push, q15min, PRN: BPS/TELEGRAPH DISPATCHER Sublimaze: 50 mcg, 1 mL, IV Push, q15min, PRN: BPS/TELEGRAPH DISPATCHER amLODIPine: 10 mg, 1 tab(s), Nasogastric, qDay budesonide 0.5 mg/2 mL inhalation suspension: 0.5 mg, 2 mL, Inhalation, BIDRT cefTRIAXone: 2 gram(s), 20 mL, 240 mL/hr, IV Push (INT), qDay famotidine: 20 mg, 1 tab(s), Nasogastric, qDay heparin 5000 units/mL injection: 5,000 unit(s), 1 mL, Subcutaneous, q8h hydrALAZINE: 10 mg, 0.5 mL, IV Push, q4h, PRN: Systolic BP: See order comments insulin NPH: 10 unit(s), 0.1 mL, Subcutaneous, q8h metoprolol tartrate (Lopressor): 25 mg, 1 tab(s), Nasogastric, q8h Prescriptions Prescribed Farxiga 10 mg oral tablet: 10 mg, 1 tab(s), Oral, qDay, 90 tab(s), 3 Refill(s) MetFORMIN (Eqv-Glucophage XR) 500 mg oral tablet, EXTENDED RELEASE: 1,000 mg, 2 tab(s), Oral, BID, 360 tab(s), 2 Refill(s) Ozempic 4 mg/3 mL (1 mg dose) subcutaneous solution: 1 mg, Subcutaneous, qWeek, 9 mL, 1 Refill(s) amLODIPine 5 mg oral tablet: 5 mg, 1 tab(s), Oral, qDay, 90 tab(s), 3 Refill(s) atorvastatin 20 mg oral tablet: 20 mg, 1 tab(s), Oral, qDay, for 90 day(s), 90 tab(s), 1 Refill(s) levothyroxine 25 mcg (0.025 mg) oral tablet: 50 mcg, 2 tab(s), Oral, qDay, for 90 day(s), 180 tab(s), 1 Refill(s) losartan 100 mg oral tablet: 100 mg, 1 tab(s), Oral, qDay, for 90 day(s), 90 tab(s), 1 Refill(s) metoprolol succinate 25 mg oral TABLET extended release: 25 mg, 1 tab(s), Oral, qDay, for 90 day(s), Do not crush or chew (controlled release), 90 tab(s), 1 Refill(s) Documented Medications Documented HumaLOG Mix 50/50 KwikPen 3 mL PEN: 15 unit(s), Subcutaneous, BID, 3 mL, 0 Refill(s) Vitamin D (3) 45 units oral capsule: 0 Refill(s) Vitamin D with Minerals oral tablet: 1 tab(s), Oral, qDay, 30 tab(s), 0 Refill(s), Medications (22) Active Scheduled: (11) albuterol - ipratropium 2.5 mg-0.5 mg/3 mL Inhal Cheryl UD 3 mL, Inhalation, q6hRT amLODIPine 10 mg tablet 10 mg 1 tab(s), Nasogastric, qDay budesonide 0.5 mg/2 mL Susp UD 0.5 mg 2 mL, Inhalation, BIDRT cefTRIAXone IVP syringe 2 gram(s) 20 mL, IV Push (INT), qDay chlorhexidine topical 0.12% Liquid (60 mL) 15 mL, Swish & Spit, QID famotidine 20 mg tablet 20 mg 1 tab(s), Nasogastric, qDay heparin 5,000 units/mL (1 mL) vial 5,000 unit(s) 1 mL, Subcutaneous, q8h insulin isophane human recombinant 100 units/ml (10 mL) Inj 10 unit(s) 0.1 mL, Subcutaneous, q8h metoprolol tartrate 25 mg tablet 25 mg 1 tab(s), Nasogastric, q8h ocular lubricant - Ointment 3.5 gram(s) 1 mendy, Eyes, both, q8h ocular lubricant preserved Soln 15 mL 1 drop(s), Eyes, both, q8h Continuous: (2) insulin regular 100 unit(s) + NS Premix Diluent 100 mL 100 mL, Intravenous norepinephrine 8 mg [5 mcg/min] + NS Premix Diluent 250 mL 250 mL, Intravenous, 9.38 mL/hr PRN: (9) acetaminophen-HYDROcodone 325-5 mg tablet 1 tab(s), Oral, q4h acetaminophen-HYDROcodone 325-5 mg tablet 2 tab(s), Oral, q6h dextrose 50% Solution Disp syringe 50 mL 25 g 50 mL, IV Push, AsDirected fentaNYL 50 mcg/mL (2mL) ampule 50 mcg 1 mL, IV Push, q15min fentaNYL 50 mcg/mL (2mL) ampule 25 mcg 0.5 mL, IV Push, q15min hydralazine 20 mg/mL (1mL) vial 10 mg 0.5 mL, IV Push, q4h insulin regular human recombinant 100 units/ml (10 mL) Solution sliding scale insulin, Subcutaneous, q4h ocular lubricant - Ointment 3.5 gram(s) 1 mendy, Eyes, both, AsDirected ocular lubricant preserved Soln 15 mL 1 drop(s), Eyes, both, AsDirected Problem list: Medical History of ventral hernia / SNOMED CT 593350111 / Confirmed Hernia centeral/midline, ventricle (large) / SNOMED CT 0124680819 / Confirmed History of basal cell carcinoma (BCC) of skin, nose / SNOMED CT 4562842320 / Confirmed History of COVID-19 / SNOMED CT 2694108470 / Confirmed Hyperlipidemia LDL goal <100 / SNOMED CT 33838274 / Confirmed HTN, goal below 140/90 / SNOMED CT 1716399917 / Confirmed Hypothyroidism in adult / SNOMED CT 65856960 / Confirmed Increased BMI (body mass index) / SNOMED CT 01585895 / Confirmed Increased BMI / SNOMED CT 95805832 / Confirmed Laceration of skin of right hand / SNOMED CT 7250152072 / Confirmed Non-smoker / SNOMED CT 62890903 / Confirmed Screening for prostate cancer / SNOMED CT 895995327 / Confirmed Medicare annual wellness visit, subsequent / SNOMED CT 625097013 / Confirmed Screening for abdominal aortic aneurysm / SNOMED CT 799634235 / Confirmed Screening for cardiovascular condition / SNOMED CT 697814597 / Confirmed Screening for glaucoma / SNOMED CT 119397149 / Confirmed Screening for colorectal cancer / SNOMED CT 510529835 / Confirmed Risk and functional assessment / SNOMED CT 068758680 / Confirmed DM type 2, goal HbA1c < 7.5% / SNOMED CT 946292179 / Confirmed Hernia, umbilical / SNOMED CT 2114118847 / Confirmed Vitamin D deficiency / SNOMED CT 83178785 / Confirmed, Active Problems (21) DM type 2, goal HbA1c < 7.5% Hernia centeral/midline, ventricle (large) Hernia, umbilical History of basal cell carcinoma (BCC) of skin, nose History of COVID-19 History of ventral hernia HTN, goal below 140/90 Hyperlipidemia LDL goal <100 Hypothyroidism in adult Increased BMI Increased BMI (body mass index) Laceration of skin of right hand Medicare annual wellness visit, subsequent Non-smoker Risk and functional assessment Screening for abdominal aortic aneurysm Screening for cardiovascular condition Screening for colorectal cancer Screening for glaucoma Screening for prostate cancer Vitamin D deficiency Histories Past Medical History: Resolved Overweight ([id number]): Resolved. Basal cell carcinoma of nose (2302305932): Resolved. COVID-19 virus infection (3430969646): Resolved. Family History: Hypertension Mother Father Heart disease Father Stroke Sister Hodgkin disease Sister Procedure history: CLOSURE OF ABDOMINAL WALL ([id number]) on 01/28/2024 at 73 Years. Comments: 01/28/2024 14:50 Mary Turner LPN REMOVAL OF ABTHERA WOUND VAC, ABDOMINAL EXPLORATION, CLOSURE OF ABDOMINAL WALL with endotracheal tube with endotracheal tube Laparotomy ([id number]) on 01/24/2024 at 73 Years. Comments: 01/28/2024 7:56 Mary Turner LPN Abdominal Laparotomy, EXPLORATORY LAPAROTOMY WITH APTHORA PLACEMENT. CHOLECYSTECTOMY. [facility] with Anest[facility] Cholecystectomy ([id number]) on 01/24/2024 at 73 Years. Comments: 01/28/2024 7:55 Mary Turner LPN CHOLECYSTECTOMY Laparotomy ([id number]) on 01/21/2024 at 73 Years. Comments: 01/23/2024 10:34 Mary Turner LPN ROBOTIC ASSISTED DIAGNOSTIC LAPAROSCOPY EXPLORATORY LAPAROTOMY; ABDOMINAL WASHOUT, EXTRACTION OF ABDOMINAL WALL MESH; DEBRIDEMENT OF ABDOMINAL WALL; PLACEMENT OF ABTHERA OPEN ABDOMINAL WOUND VAC. Hernia repair ([id number]) on 01/20/2024 at 73 Years. Comments: 01/20/2024 12:49 Mary Turner LPN ROBOTIC ASSISTED UMBILICAL HERNIA PREPERITONEAL REPAIR WITH MESH Colonoscopy ([id number]) on 09/29/2008 at 58 Years. Hernia ([id number]). Surgery ([id number]). Comments: 11/10/2020 14:07 Bernarda Finch LPN Right hand Surgery ([id number]). Comments: 11/10/2020 14:07 Bernarda Finch LPN Achilles tendon Social History: Social & Psychosocial Habits Alcohol 01/20/2024 Use: Current Type: Liquor Frequency: Daily Has alcohol use interfered with work or home life: No Comment: 2 shots every day - 01/20/2024 16:18 - Gudelia Sanderson RN Substance Abuse 01/20/2024 Use: Never Tobacco 01/20/2024 Tobacco Use: Former smoker, quit more Type: Cigarettes Number of years: 30 Home/Environment 01/20/2024 Living situation: Home/Independent Domestic Concerns None Lives In Multilevel home Spouse Name JESSICA Marital Status of Patient if Patient Independent Adult: Nutrition/Health 01/20/2024 Type of diet: Diabetic Caffeine intake amount: Pop Eating Difficulties None Physical Examination Vital Signs 02/04/2024 9:37 EST Heart Rate Monitored 80 bpm Respiratory Rate 27 br/min HI Systolic Blood Pressure Non-Invasive 121 mmHg Diastolic Blood Pressure Non-Invasive 54 mmHg LOW Mean Arterial Pressure (NBP) 72 mmHg Reason For Taking VItal Signs Routine 02/04/2024 7:57 EST Apical Heart Rate 90 bpm 02/04/2024 7:43 EST Heart Rate Monitored 88 bpm 02/04/2024 7:31 EST Temperature Oral 37.1 DegC Heart Rate Monitored 86 bpm Respiratory Rate 27 br/min HI Systolic Blood Pressure Non-Invasive 137 mmHg Diastolic Blood Pressure Non-Invasive 50 mmHg <LLOW Mean Arterial Pressure (NBP) 74 mmHg Reason For Taking VItal Signs Routine 02/04/2024 6:45 EST Peripheral Pulse Rate 81 bpm Respiratory Rate 24 br/min HI 02/04/2024 6:00 EST Heart Rate Monitored 73 bpm Systolic Blood Pressure Non-Invasive 122 mmHg Diastolic Blood Pressure Non-Invasive 45 mmHg <LLOW Mean Arterial Pressure (NBP) 66 mmHg 02/04/2024 5:32 EST Heart Rate Monitored 75 bpm Respiratory Rate 25 br/min HI Systolic Blood Pressure Non-Invasive 108 mmHg Diastolic Blood Pressure Non-Invasive 51 mmHg LOW Mean Arterial Pressure (NBP) 68 mmHg Reason For Taking VItal Signs Routine 02/04/2024 3:42 EST Temperature Oral 36.8 DegC Heart Rate Monitored 71 bpm Respiratory Rate 26 br/min HI Systolic Blood Pressure Non-Invasive 125 mmHg Diastolic Blood Pressure Non-Invasive 52 mmHg LOW Mean Arterial Pressure (NBP) 72 mmHg Reason For Taking VItal Signs Routine 02/04/2024 3:06 EST Heart Rate Monitored 71 bpm Respiratory Rate 25 br/min HI Systolic Blood Pressure Non-Invasive 129 mmHg Diastolic Blood Pressure Non-Invasive 53 mmHg LOW Mean Arterial Pressure (NBP) 73 mmHg 02/04/2024 2:05 EST Heart Rate Monitored 66 bpm Respiratory Rate 27 br/min HI Systolic Blood Pressure Non-Invasive 120 mmHg Diastolic Blood Pressure Non-Invasive 51 mmHg LOW Mean Arterial Pressure (NBP) 69 mmHg 02/04/2024 1:32 EST Heart Rate Monitored 65 bpm Respiratory Rate 24 br/min HI Systolic Blood Pressure Non-Invasive 118 mmHg Diastolic Blood Pressure Non-Invasive 51 mmHg LOW Mean Arterial Pressure (NBP) 69 mmHg Reason For Taking VItal Signs Routine 02/04/2024 0:05 EST Heart Rate Monitored 67 bpm Respiratory Rate 25 br/min HI Systolic Blood Pressure Non-Invasive 123 mmHg Diastolic Blood Pressure Non-Invasive 55 mmHg LOW Mean Arterial Pressure (NBP) 74 mmHg 02/03/2024 23:52 EST Peripheral Pulse Rate 67 bpm Respiratory Rate 25 br/min HI 02/03/2024 23:49 EST Heart Rate Monitored 67 bpm Respiratory Rate 25 br/min HI 02/03/2024 23:27 EST Apical Heart Rate 70 bpm 02/03/2024 23:13 EST Heart Rate Monitored 70 bpm 02/03/2024 23:08 EST Temperature Oral 36.8 DegC Heart Rate Monitored 70 bpm Respiratory Rate 27 br/min HI Systolic Blood Pressure Non-Invasive 133 mmHg Diastolic Blood Pressure Non-Invasive 54 mmHg LOW Mean Arterial Pressure (NBP) 73 mmHg Reason For Taking VItal Signs Routine 02/03/2024 22:09 EST Heart Rate Monitored 67 bpm Systolic Blood Pressure Non-Invasive 126 mmHg Diastolic Blood Pressure Non-Invasive 48 mmHg <LLOW Mean Arterial Pressure (NBP) 67 mmHg 02/03/2024 21:17 EST Heart Rate Monitored 67 bpm Respiratory Rate 26 br/min HI Systolic Blood Pressure Non-Invasive 119 mmHg Diastolic Blood Pressure Non-Invasive 47 mmHg <LLOW Mean Arterial Pressure (NBP) 67 mmHg Reason For Taking VItal Signs Routine 02/03/2024 20:50 EST Heart Rate Monitored 68 bpm Respiratory Rate 24 br/min HI 02/03/2024 20:21 EST Heart Rate Monitored 69 bpm 02/03/2024 20:05 EST Heart Rate Monitored 72 bpm Systolic Blood Pressure Non-Invasive 116 mmHg Diastolic Blood Pressure Non-Invasive 47 mmHg <LLOW Mean Arterial Pressure (NBP) 65 mmHg 02/03/2024 19:36 EST Temperature Oral 37.0 DegC Heart Rate Monitored 74 bpm Respiratory Rate 26 br/min HI Systolic Blood Pressure Non-Invasive 133 mmHg Diastolic Blood Pressure Non-Invasive 59 mmHg LOW Mean Arterial Pressure (NBP) 80 mmHg Reason For Taking VItal Signs Routine 02/03/2024 18:50 EST Peripheral Pulse Rate 69 bpm Respiratory Rate 26 br/min HI 02/03/2024 17:56 EST Heart Rate Monitored 68 bpm 02/03/2024 17:32 EST Heart Rate Monitored 68 bpm Respiratory Rate 24 br/min HI Systolic Blood Pressure Non-Invasive 108 mmHg Diastolic Blood Pressure Non-Invasive 48 mmHg <LLOW Mean Arterial Pressure (NBP) 66 mmHg Reason For Taking VItal Signs Routine 02/03/2024 16:01 EST Apical Heart Rate 69 bpm Heart Rate Monitored 71 bpm Systolic Blood Pressure Non-Invasive 116 mmHg Diastolic Blood Pressure Non-Invasive 63 mmHg Mean Arterial Pressure (NBP) 75 mmHg 02/03/2024 15:45 EST Temperature Oral 36.6 DegC Heart Rate Monitored 71 bpm Respiratory Rate 24 br/min HI Systolic Blood Pressure Non-Invasive 121 mmHg Diastolic Blood Pressure Non-Invasive 54 mmHg LOW Mean Arterial Pressure (NBP) 71 mmHg Reason For Taking VItal Signs Routine 02/03/2024 14:23 EST Heart Rate Monitored 73 bpm Respiratory Rate 26 br/min HI Systolic Blood Pressure Non-Invasive 117 mmHg Diastolic Blood Pressure Non-Invasive 53 mmHg LOW Mean Arterial Pressure (NBP) 70 mmHg Reason For Taking VItal Signs Routine 02/03/2024 12:00 EST Heart Rate Monitored 76 bpm Systolic Blood Pressure Non-Invasive 130 mmHg Diastolic Blood Pressure Non-Invasive 54 mmHg LOW Mean Arterial Pressure (NBP) 76 mmHg 02/03/2024 11:39 EST Peripheral Pulse Rate 74 bpm Respiratory Rate 22 br/min HI Systolic Blood Pressure Non-Invasive 143 mmHg HI Diastolic Blood Pressure Non-Invasive 77 mmHg 02/03/2024 11:30 EST Heart Rate Monitored 77 bpm Systolic Blood Pressure Non-Invasive 143 mmHg HI Diastolic Blood Pressure Non-Invasive 77 mmHg Mean Arterial Pressure (NBP) 93 mmHg 02/03/2024 11:15 EST Heart Rate Monitored 71 bpm Systolic Blood Pressure Non-Invasive 139 mmHg Diastolic Blood Pressure Non-Invasive 53 mmHg LOW Mean Arterial Pressure (NBP) 73 mmHg 02/03/2024 11:05 EST Temperature Oral 37.1 DegC Heart Rate Monitored 67 bpm Respiratory Rate 24 br/min HI Systolic Blood Pressure Non-Invasive 138 mmHg Diastolic Blood Pressure Non-Invasive 53 mmHg LOW Mean Arterial Pressure (NBP) 72 mmHg Reason For Taking VItal Signs Routine 02/03/2024 10:58 EST Heart Rate Monitored 66 bpm Systolic Blood Pressure Non-Invasive 137 mmHg Diastolic Blood Pressure Non-Invasive 54 mmHg LOW Mean Arterial Pressure (NBP) 75 mmHg Reason For Taking VItal Signs In Error (In Error) 02/03/2024 10:51 EST Heart Rate Monitored 68 bpm Systolic Blood Pressure Non-Invasive 114 mmHg Diastolic Blood Pressure Non-Invasive 52 mmHg LOW Mean Arterial Pressure (NBP) 70 mmHg 02/03/2024 10:45 EST Heart Rate Monitored 68 bpm Systolic Blood Pressure Non-Invasive 100 mmHg Diastolic Blood Pressure Non-Invasive 48 mmHg <LLOW Mean Arterial Pressure (NBP) 63 mmHg 02/03/2024 10:40 EST Heart Rate Monitored 72 bpm Systolic Blood Pressure Non-Invasive 83 mmHg LOW Diastolic Blood Pressure Non-Invasive 40 mmHg <LLOW Mean Arterial Pressure (NBP) 53 mmHg 02/03/2024 10:31 EST Heart Rate Monitored 77 bpm Reason For Taking VItal Signs Routine 02/03/2024 10:27 EST Heart Rate Monitored 79 bpm Systolic Blood Pressure Non-Invasive 163 mmHg HI Diastolic Blood Pressure Non-Invasive 56 mmHg LOW Mean Arterial Pressure (NBP) 83 mmHg Reason For Taking VItal Signs Routine 02/03/2024 10:24 EST Heart Rate Monitored 75 bpm Respiratory Rate 48 br/min >HHI Systolic Blood Pressure Non-Invasive 151 mmHg HI Diastolic Blood Pressure Non-Invasive 61 mmHg Mean Arterial Pressure (NBP) 87 mmHg Reason For Taking VItal Signs Routine 02/03/2024 9:15 EST Heart Rate Monitored 71 bpm Respiratory Rate 32 br/min >HHI Systolic Blood Pressure Non-Invasive 128 mmHg Diastolic Blood Pressure Non-Invasive 55 mmHg LOW Mean Arterial Pressure (NBP) 73 mmHg Reason For Taking VItal Signs Routine 02/03/2024 8:00 EST Apical Heart Rate 78 bpm 02/03/2024 7:32 EST Temperature Oral 37.8 DegC HI Heart Rate Monitored 79 bpm Respiratory Rate 36 br/min >HHI Systolic Blood Pressure Non-Invasive 138 mmHg Diastolic Blood Pressure Non-Invasive 52 mmHg LOW Mean Arterial Pressure (NBP) 74 mmHg Reason For Taking VItal Signs Routine 02/03/2024 7:26 EST Heart Rate Monitored 78 bpm Reason For Taking VItal Signs Routine 02/03/2024 6:52 EST Peripheral Pulse Rate 75 bpm Respiratory Rate 25 br/min HI 02/03/2024 6:30 EST Heart Rate Monitored 76 bpm Systolic Blood Pressure Non-Invasive 138 mmHg Diastolic Blood Pressure Non-Invasive 57 mmHg LOW Mean Arterial Pressure (NBP) 77 mmHg 02/03/2024 5:19 EST Heart Rate Monitored 77 bpm Respiratory Rate 27 br/min HI Systolic Blood Pressure Non-Invasive 130 mmHg Diastolic Blood Pressure Non-Invasive 57 mmHg LOW Mean Arterial Pressure (NBP) 76 mmHg Reason For Taking VItal Signs Routine 02/03/2024 4:30 EST Heart Rate Monitored 77 bpm Systolic Blood Pressure Non-Invasive 110 mmHg Diastolic Blood Pressure Non-Invasive 52 mmHg LOW Mean Arterial Pressure (NBP) 67 mmHg 02/03/2024 3:48 EST Temperature Oral 37.4 DegC HI Heart Rate Monitored 76 bpm Respiratory Rate 25 br/min HI Systolic Blood Pressure Non-Invasive 147 mmHg HI Diastolic Blood Pressure Non-Invasive 49 mmHg <LLOW Mean Arterial Pressure (NBP) 74 mmHg Reason For Taking VItal Signs Routine 02/03/2024 2:00 EST Temperature Oral 37.2 DegC Heart Rate Monitored 77 bpm Respiratory Rate 26 br/min HI Systolic Blood Pressure Non-Invasive 157 mmHg HI Diastolic Blood Pressure Non-Invasive 61 mmHg Mean Arterial Pressure (NBP) 84 mmHg Reason For Taking VItal Signs Routine 02/03/2024 1:30 EST Heart Rate Monitored 80 bpm Systolic Blood Pressure Non-Invasive 136 mmHg Diastolic Blood Pressure Non-Invasive 64 mmHg Mean Arterial Pressure (NBP) 83 mmHg 02/03/2024 1:00 EST Heart Rate Monitored 76 bpm Systolic Blood Pressure Non-Invasive 144 mmHg HI Diastolic Blood Pressure Non-Invasive 59 mmHg LOW Mean Arterial Pressure (NBP) 78 mmHg 02/03/2024 0:49 EST Peripheral Pulse Rate 76 bpm Respiratory Rate 28 br/min HI 02/03/2024 0:00 EST Temperature Oral 37.8 DegC HI Heart Rate Monitored 86 bpm Respiratory Rate 25 br/min HI Systolic Blood Pressure Non-Invasive 155 mmHg HI Diastolic Blood Pressure Non-Invasive 56 mmHg LOW Mean Arterial Pressure (NBP) 79 mmHg Reason For Taking VItal Signs Routine Vital Signs (last 24 hrs) Last Charted Temp Oral37.1 DegC (FEB 03 07:31) Heart Rate Oncnrqcnq25 bpm (FEB 03 09:37) BGE815 mmHg (FEB 03 09:37) DBPL 54 mmHg (FEB 03 09:37) Pain assessment: Pain Assessment 02/04/2024 9:37 EST Primary Pain Intensity 3 Primary Pain Non-Pharma Intervention Rest, Repositioning Primary Pain Nonverbal Response Appears restful Pain Scale Type Behavioral pain scale 02/04/2024 7:57 EST Primary Pain Location Abdomen Primary Pain Intensity 7 Primary Pain Pharma Intervention Medication Primary Pain Nonverbal Response Facial grimace Pain Scale Type Behavioral pain scale 02/04/2024 7:31 EST Primary Pain Location Abdomen Primary Pain Intensity 7 Primary Pain Non-Pharma Intervention Rest, Repositioning Primary Pain Nonverbal Response Facial grimace Pain Scale Type Behavioral pain scale 02/04/2024 5:32 EST Primary Pain Intensity 3 Primary Pain Nonverbal Response Appears restful Pain Scale Type Behavioral pain scale 02/04/2024 3:42 EST Primary Pain Intensity 3 Primary Pain Nonverbal Response Appears restful Pain Scale Type Behavioral pain scale 02/04/2024 2:29 EST Pain Scale Assessment Behavioral pain scale Primary Pain Location Abdomen Primary Pain Intensity 3 02/04/2024 1:32 EST Primary Pain Intensity 3 Primary Pain Nonverbal Response Appears restful Pain Scale Type Behavioral pain scale 02/03/2024 23:08 EST Primary Pain Intensity 3 Primary Pain Nonverbal Response Appears restful Pain Scale Type Behavioral pain scale 02/03/2024 21:17 EST Primary Pain Intensity 3 Primary Pain Nonverbal Response Appears restful Pain Scale Type Behavioral pain scale 02/03/2024 19:38 EST Primary Pain Intensity 7 02/03/2024 19:36 EST Primary Pain Intensity 7 Primary Pain Nonverbal Response Facial grimace Pain Scale Type Behavioral pain scale 02/03/2024 17:32 EST Primary Pain Intensity 3 Primary Pain Nonverbal Response Appears restful Pain Scale Type Behavioral pain scale 02/03/2024 15:45 EST Primary Pain Intensity 3 Primary Pain Nonverbal Response Appears restful Pain Scale Type Behavioral pain scale 02/03/2024 14:24 EST Pain Scale Assessment Behavioral pain scale Primary Pain Location Generalized Primary Pain Intensity 3 02/03/2024 14:23 EST Primary Pain Location Generalized Primary Pain Intensity 3 Primary Pain Non-Pharma Intervention Rest, Repositioning Primary Pain Nonverbal Response Appears restful Pain Scale Type Behavioral pain scale 02/03/2024 13:24 EST Primary Pain Intensity 8 02/03/2024 11:05 EST Primary Pain Location Generalized Primary Pain Intensity 3 Primary Pain Non-Pharma Intervention Rest, Repositioning Primary Pain Nonverbal Response Appears restful Pain Scale Type Behavioral pain scale 02/03/2024 9:15 EST Primary Pain Location Generalized Primary Pain Intensity 3 Primary Pain Non-Pharma Intervention Rest, Repositioning Primary Pain Nonverbal Response Nods No Pain Scale Type Behavioral pain scale 02/03/2024 7:32 EST Primary Pain Location Generalized Primary Pain Intensity 3 Primary Pain Non-Pharma Intervention Rest, Repositioning Primary Pain Nonverbal Response Nods No Pain Scale Type Behavioral pain scale 02/03/2024 5:19 EST Primary Pain Location Generalized Primary Pain Intensity 3 Primary Pain Non-Pharma Intervention Rest, Repositioning Primary Pain Nonverbal Response Nods No Pain Scale Type Behavioral pain scale 02/03/2024 3:48 EST Primary Pain Location Generalized Primary Pain Intensity 3 Primary Pain Non-Pharma Intervention Rest, Repositioning Primary Pain Nonverbal Response Nods No Pain Scale Type Behavioral pain scale 02/03/2024 2:00 EST Primary Pain Intensity 3 Primary Pain Nonverbal Response Nods No Pain Scale Type Behavioral pain scale 02/03/2024 0:00 EST Primary Pain Intensity 3 Primary Pain Nonverbal Response Nods No Pain Scale Type Behavioral pain scale . General: intubated sedated . Airway: Unable to examine: Patient intubated. Dentition Evaluation: unable to asse s. Respiratory: diminished bases . Neurologic: intrubated sedated . Review / Management Results review: Labs (Last four charted values) WBC 8.0(FEB 03)7.6(FEB 02)9.1(FEB 01)10.7(JAN 31) Hgb L 10.7(FEB 03)L 10.8(FEB 02)L 10.4(FEB 01)L 10.8(JAN 31) Hct L 32.0(FEB 03)L 31.8(FEB 02)L 31.4(FEB 01)L 32.2(JAN 31) Plt 371(FEB 03)307(FEB 02)271(FEB 01)252(JAN 31) Na 144(FEB 03)144(FEB 02)H 147(FEB 01)H 148(FEB 01) K 3.9(FEB 03)3.5(FEB 02)L 3.4(FEB 01)L 2.9(JAN 31) CO2 24(FEB 03)26(FEB 02)24(FEB 01)26(JAN 31) Cl 109(FEB 03)109(FEB 02)H 113(FEB 01)H 116(JAN 31) Cr H 1.75(FEB 03)H 1.66(FEB 02)H 1.80(FEB 01)H 1.91(JAN 31) BUN H 73.0(FEB 03)H 63.0(FEB 02)H 78.0(FEB 01)H 80.0(JAN 31) Glucose H 126(FEB 03)H 150(FEB 02)H 229(FEB 01)H 202(JAN 31) Mg 2.0(FEB 03)1.9(FEB 02)1.8(FEB 01)1.9(JAN 29) Phos H 5.5(FEB 03)4.4(FEB 02)4.0(FEB 01)3.8(JAN 29) Ca C 6.7(FEB 03)L 7.3(FEB 02)C 6.6(FEB 01)L 7.0(JAN 31) PT 11.7(JAN 28)10.6(JAN 25)12.0(JAN 22)12.7(JAN 20) INR 1.0(JAN 28)0.9(JAN 25)1.0(JAN 22)1.1(JAN 20) PTT H 35.9(JAN 22)29.9(JAN 20) Total CK H 240(JAN 28)H 597(JAN 25) , Lab results 02/04/2024 9:37 EST Heart Rate Monitored 80 bpm Respiratory Rate 27 br/min HI Systolic Blood Pressure Non-Invasive 121 mmHg Diastolic Blood Pressure Non-Invasive 54 mmHg LOW Mean Arterial Pressure (NBP) 72 mmHg Reason For Taking VItal Signs Routine Oral Care ICU Done Primary Pain Intensity 3 Primary Pain Non-Pharma Intervention Rest, Repositioning Primary Pain Nonverbal Response Appears restful Pain Scale Type Behavioral pain scale Monitor Alarms On and Limits Checked Nail Bed Color [place] Capillary Refill < 2 seconds Heart Sounds ICU S1S2 Heart Rhythm Regular Radial Pulse, Left 2+ Normal Radial Pulse, Right 2+ Normal Cardiac Rhythm Sinus rhythm Monitoring Lead II, V1/MCL1 Alarms On and Functional Yes Respirations Unlabored Respiratory Pattern Regular Respiratory Pattern Detailed Vented Patient Airway Status Patent with support Breath Sounds Auscultated Anterior only All Lobes Breath Sounds Clear, Diminished Suction Method Oral Suction Device [place] Sputum Amount Scant Sputum Color Clear Sputum Consistency Thin Ventilator Mode (PSV) Pressure Support Ventilation Tidal Volume, Delivered 0.500 L Positive End Expiratory Pressure 5 cmH20 FiO2 40 % Vent FiO2 40 % Resuscitation Bag Available Yes Vent Alarms On and Functional Yes Oxygen Therapy Ventilator Oxygen Saturation 98 % Cuffed endotracheal tube 8.0 02/03/2024 Endotracheal Tube Activity: Assessed Endotracheal Tube Placement: Oral, right ET Tube Insertion cm [place] at Lip: 24 cm Endotracheal Tube Position Confirmation: Breath sounds Endotracheal Tube Status: Patent, Secure, manufactured tube alfredo Endotracheal Tube Care: Oral care Abdomen Description Rounded Abdomen Palpation Semi-firm Bowel Continence No bowel movement Bowel Sounds All Quadrants Present Nasogastric (NG) Nostril, left Gastrointestinal Tube Activity: Assessed Enteral Tube Insertion cm [place] at Nare: 78 cm GI Tube Method of Drainage: Clamped Gastrointestinal Tube Site Condition: No complications Urinary Elimination Urinary catheter draining Urinary Elimination Devices Indwelling catheter Urethral Indwelling/Continuous 16 Fr 01/21/2024 Urinary Catheter Activity: Assessed Urinary Catheter Site Condition: No complications Skin Description Normal for ethnicity Mucous Membrane Description Moist Skin Color General Usual for ethnicity Abdomen Anterior Wound Status: Unchanged Abdomen Left Lateral Wound Status: Unchanged Abdomen Right Multiple scattered Wound Status: Unchanged Continuous IV Infusions prn Forearm Left 02/01/2024 20 gauge Peripheral IV Activity: Assessed Peripheral IV Site Condition: No complications Peripheral IV Equipment: PRN Adaptor Forearm Right 02/01/2024 18 gauge Peripheral IV Activity: Assessed Peripheral IV Site Condition: No complications Peripheral IV Equipment: PRN Adaptor Neurological Language Intubated or other physical barrier Neurological Symptoms Weakness Extremity Movement Equal Characteristics of Communication Unable to speak, due to vent Characteristics of Speech Unable to assess Facial Symmetry Symmetric Level of Consciousness Alert [place] Yes Strength All Extremities Weak Left Upper Extremity Sensation Intact Right Upper Extremity Sensation Intact Left Lower Extremity Sensation Intact Right Lower Extremity Sensation Intact CN V Facial Sensation Corneal reflex present CN IX, X Swallowing, Gag Reflex Gag reflex present Affect/Behavior Impulsive Orientation Follows simple commands Soft limb holders (Cloth) Wrist, bilateral Restraint Technique: Non Violent Restraint Restraint Activity Type: Continue restraint, same episode Behavior Requiring Non Violent Restraint Attempts to remove medical management devices Type of Medical Devices: Monitoring equipment, Tubes/drains, IV/arterial access, Airway management equipment Rationale for Restraint: Attempting to remove devices, despite current restraints Range of Motion: Repositioned Restraint Skin Assessment: Skin intact, Pulses intact Restraint Nutrition/Hydration: NPO Restraint Hygiene/Elimination: Urinary catheter Other Standard Safety: ID band check Bed Standard Safety: Bed alert on, Bed in low position, Upper/Half-length side rails up, Wheels locked, HOB elevated Restraint DC Readiness Attempts: Enhanced observation, Environmental changes Restraint DC Intervention Status: Intervention attempted, not successful Right lateral 16 [place] Chest Tube Activity: Assess Chest Tube Connectivity: Water-Seal gravity Chest Tube Water Seal Chamber Desc: Absence of Bubbling Chest Tube Interventions: Clamps at bedside Chest Tube Drainage Description: Straw colored Chest Tube Dressing Condition: Clean, Dry, Intact Chest Tube Dressing: Occlusive dressing BMAT Existing Patient Condition/Safety Strict bedrest Orientation Assessment Unable to evaluate Positioning Repositioned left side Activity Status ADL Resting Beds/Devices low air loss bed Assistive Equipment boot(s) on, elevated on pillows Activity Assistance Maximum assistance Sequential Compression Device right knee high applied/on Antiembolism Stocking On/Re-applied bilateral knee high NPO Status Maintained Oral Care Oral care protocol Standard Safety ID band on, Safety level maintained High Risk Safety Room check performed Demonstrates Correct Call Light Use No Degrees Head of Bed Elevated 30 02/04/2024 9:00 EST Nephrology Progress Note Progress Note 02/04/2024 8:56 EST Discharge To, Anticipated Other: LTAC Anticipated Discharge Date 02/07/2024 Transition Planning Note Transition Planning Ongoing Assessment 02/04/2024 8:15 EST Urethral Indwelling/Continuous 16 Fr 01/21/2024 Urinary Catheter Site Condition: No complications Urinary Catheter Care Completed: Yes CHG Preoperative Wash/Wipe Day of procedure Lorenza Care Maximum assistance 02/04/2024 8:02 EST ceftriaxone 2 gram(s) gram(s) 02/04/2024 8:00 EST insulin isophane Not Done: Patient NPO (Not Done) 02/04/2024 7:57 EST Apical Heart Rate 90 bpm Primary Pain Location Abdomen Primary Pain Intensity 7 Primary Pain Pharma Intervention Medication Primary Pain Nonverbal Response Facial grimace Pain Scale Type Behavioral pain scale acetaminophen-hydrocodone 2 tab(s) tab(s) amLODIPine 10 mg mg chlorhexidine topical 15 mL mL famotidine 20 mg mg metoprolol 25 mg mg ocular lubricant 1 mendy mendy ocular lubricant 1 drop(s) drop(s) 02/04/2024 7:45 EST Patient Airway Status Patent with support Cuffed endotracheal tube 8.0 02/03/2024 Endotracheal Tube Activity: Assessed Endotracheal Tube Placement: Oral, right ET Tube Insertion cm [place] at Lip: 24 cm Endotracheal Tube Position Confirmation: Breath sounds Endotracheal Tube Cuff Pressure Method: Minimum occlusion volume Endotracheal Tube Status: Patent, Secure, manufactured tube alfredo Endotracheal Tube Care: Repositioned 02/04/2024 7:43 EST Heart Rate Monitored 88 bpm Breath Sounds Auscultated Anterior and posterior All Lobes Breath Sounds Clear, Diminished Ventilator Mode (PSV) Pressure Support Ventilation Positive End Expiratory Pressure 5 cmH20 Pressure Support 5 cmH20 FiO2 40 % Tube Compensation On Vent FiO2 40 % Respiratory Rate Total 27 br/min HI Minute Volume 14 L/min Tidal Volume, Exhaled 0.503 L Vent Alarms On and Functional Yes Vent Alarm Apnea 20 second(s) Vent Alarm High Pressure 40 cmH20 High Tidal Volume 0.9 Vent Alarm High Rate 40 br/min Vent Alarm Low Minute Volume 3 L/min Vent Alarm High Minute Volume 18 L/min Oxygen Saturation 93 % 02/04/2024 7:42 EST Weaning Negative Inspiratory Force -22 cmH20 Weaning Respiratory Rate 25 br/min Weaning Rapid Shallow Breathing Index 47 Weaning Tidal Volume 0.5 L Weaning Minute Volume 13 L/min Weaning Vital Capacity 0.8 L Spontaneous Breathing Trial Initiated 02/04/2024 7:31 EST Blood Glucose, Capillary 122 mg/dL HI Blood Glucose Testing Reason Routine Temperature Oral 37.1 DegC Heart Rate Monitored 86 bpm Respiratory Rate 27 br/min [place] Systolic Blood Pressure Non-Invasive 137 mmHg Diastolic Blood Pressure Non-Invasive 50 mmHg <LLOW Mean Arterial Pressure (NBP) 74 mmHg Reason For Taking VItal Signs Routine Oral Care ICU Done Eye Care Done Primary Pain Location Abdomen Primary Pain Intensity 7 Primary Pain Non-Pharma Intervention Rest, Repositioning Primary Pain Nonverbal Response Facial grimace Pain Scale Type Behavioral pain scale Monitor Alarms On and Limits Checked Nail Bed Color [place] Capillary Refill < 2 seconds Heart Sounds ICU S1S2 Heart Rhythm Regular Dorsalis Pedis Pulse, Left 1+ Thready Dorsalis Pedis Pulse, Right 1+ [place]ready Posttibial Pulse, Left 1+ [place]ready Posttibial Pulse, Right 1+ [place] Radial Pulse, Left 2+ Normal Radial Pulse, Right 2+ Normal Generalized Edema Ratin+ mild/4mm Hand edema Bilateral Edema Ratin+ mild/4mm Cardiac Rhythm Sinus rhythm Monitoring Lead II, V1/MCL1 Alarms On and Functional Yes Heart Rate Alarm Set At - Low 50 Heart Rate Alarm Set At - High 120 NSBP Alarm Low 90 NSBP Alarm High 160 HI Respirations Unlabored Respiratory Pattern Regular Respiratory Pattern Detailed Vented Patient Airway Status Patent with support Breath Sounds Auscultated Anterior only All Lobes Breath Sounds Clear, Diminished Ventilator Mode (A/C) Assist/Control Ventilation Ventilator Frequency, Mandatory 24 br/min Tidal Volume, Delivered 0.500 L Positive End Expiratory Pressure 5 cmH20 FiO2 40 % Vent FiO2 45 % Tidal Volume, Exhaled 0.528 L Resuscitation Bag Available Yes Vent Alarms On and Functional Yes Oxygen Therapy Ventilator Oxygen Saturation 93 % Cuffed endotracheal tube 8.0 02/03/2024 Endotracheal Tube Activity: Assessed Endotracheal Tube Placement: Oral, mid ET Tube Insertion cm [place] at Lip: 24 cm Endotracheal Tube Position Confirmation: Breath sounds Endotracheal Tube Status: Patent, Secure, manufactured tube alfredo Endotracheal Tube Care: Oral care Abdomen Description Rounded Abdomen Palpation Soft Bowel Continence No bowel movement Bowel Sounds All Quadrants Present Nasogastric (NG) Nostril, left Gastrointestinal Tube Activity: Assessed Enteral Tube Insertion cm [place] at Nare: 78 cm GI Tube Method of Drainage: Clamped Gastrointestinal Tube Site Condition: No complications Urinary Elimination Urinary catheter draining Urinary Elimination Devices Indwelling catheter Urethral Indwelling/Continuous 16 Fr 01/21/2024 Urinary Catheter Indication: ICU Patient-Hemodynamic instability Urinary Catheter Activity: Assessed Urinary Catheter Secured: Securement device on Urinary Catheter Drainage System: Dependent drainage bag Urinary Catheter Site Condition: No complications Facial Movement Symmetric resting/crying Bilateral Upper Extremity Description Normal for ethnicity All Extremity Description Normal for ethnicity Skin Temperature Warm Skin Description Normal for ethnicity Skin Integrity Not intact Skin Turgor Non-Elastic Mucous Membrane Color [place] Mucous Membrane Description Moist Skin Color General Usual for ethnicity Skin Moisture General Dry Abdomen Anterior Skin Abnormality Type: Surgical incision Incision, Wound Dressing/Activity: Assessed Incision, Wound Dressing Assessment: Clean, Dry, Intact Incision, Wound Dressing: Vacuum assisted closure Wound Drainage Device: Negative pressure wound system Negative Pressure Wound SettinmmHg Neg Pressure Wound Therapy Dressing: Black Sponge Wound Status: Unchanged Abdomen Left Lateral Skin Abnormality Type: Tear Incision, Wound Dressing/Activity: Assessed Incision, Wound Dressing Assessment: Clean, Dry, Intact Incision, Wound Dressing: Hydrocolloid (Duoderm) Wound Exudate Amount: Scant Wound Exudate Type: Sanguineous Wound Exudate Odor: None Wound Status: Unchanged Abdomen Right Multiple scattered Skin Abnormality Type: Procedure site Incision, Wound Dressing/Activity: Assessed Incision, Wound Dressing Assessment: Clean, Dry, Intact Incision, Wound Dressing: ABD dressing pad Wound Exudate Amount: Scant Wound Exudate Type: Serous Wound Status: Unchanged Continuous IV Infusions prn Forearm Left 02/01/2024 20 gauge Peripheral IV Activity: Assessed Peripheral IV Dressing Condition: Clean, Dry, Intact Peripheral IV Dressing Activity: Transparent dressing Peripheral IV Line Status/Patency: Flushes easily Peripheral IV Site Condition: No complications Peripheral IV Equipment: PRN Adaptor Forearm Right 02/01/2024 18 gauge Peripheral IV Activity: Assessed Peripheral IV Dressing Condition: Clean, Dry, Intact Peripheral IV Dressing Activity: Transparent dressing Peripheral IV Line Status/Patency: Flushes easily Peripheral IV Site Condition: No complications Peripheral IV Equipment: PRN Adaptor Neurological Language Intubated or other physical barrier Neurological Symptoms Weakness Gait Unable to assess Extremity Movement Equal Characteristics of Communication Unable to speak, due to vent Characteristics of Speech Unable to assess Facial Symmetry Symmetric Level of Consciousness Alert Eye Opening Response [place] Spontaneously Best Motor Response [place] Obeys simple commands Best Verbal Response Nathan None Nathan Coma Score 11 GALILEA Yes Left Pupil Description Regular Right Pupil Description Regular Left Pupil Reaction Brisk Right Pupil Reaction Brisk Pupil Size, Left 3 mm Pupil Size, Right 3 mm Strength All Extremities Weak Left Upper Extremity Sensation Intact Right Upper Extremity Sensation Intact Left Lower Extremity Sensation Intact Right Lower Extremity Sensation Intact CN V Facial Sensation Corneal reflex present CN VII Facial Expression and Symmetry Facial movement symmetrical CN IX, X Swallowing, Gag Reflex Gag reflex present Affect/Behavior Impulsive Orientation Follows simple commands Soft limb holders (Cloth) Wrist, bilateral Restraint Technique: Non Violent Restraint Restraint Activity Type: Continue restraint, same episode Behavior Requiring Non Violent Restraint Attempts to remove medical management devices Type of Medical Devices: Monitoring equipment, Tubes/drains, IV/arterial access, Airway management equipment Rationale for Restraint: Attempting to remove devices, despite current restraints Range of Motion: Repositioned Restraint Skin Assessment: Skin intact, Pulses intact Restraint Nutrition/Hydration: NPO Restraint Hygiene/Elimination: Urinary catheter Other Standard Safety: ID band check Bed Standard Safety: Bed alert on, Bed in low position, Upper/Half-length side rails up, Wheels locked, HOB elevated Restraint DC Readiness Attempts: Enhanced observation, Environmental changes Restraint DC Intervention Status: Intervention attempted, not successful Right lateral 16 [place] Chest Tube Activity: Assess Chest Tube Connectivity: Water-Seal gravity Chest Tube Water Seal Chamber Desc: Absence of Bubbling Chest Tube Interventions: Clamps at bedside Chest Tube Drainage Description: Straw colored Chest Tube Dressing Condition: Clean, Dry, Intact Chest Tube Dressing: Occlusive dressing BMAT Existing Patient Condition/Safety Strict bedrest Orientation Assessment Unable to evaluate Positioning Repositioned right side Activity Status ADL Resting Beds/Devices low air loss bed Assistive Equipment boot(s) on, elevated on pillows Activity Assistance Maximum assistance Sequential Compression Device right knee high applied/on Antiembolism Stocking On/Re-applied bilateral knee high NPO Status Maintained Oral Care Oral care protocol Standard Safety ID band on, Safety level maintained High Risk Safety Room check performed Special Call Device Unable to use call device Demonstrates Correct Call Light Use No Degrees Head of Bed Elevated 30 Oral Intake 0 mL Stool Count 0 EA 02/04/2024 7:06 EST Ventilator Activity On 02/04/2024 6:46 EST albuterol-ipratropium 3 mL mL budesonide 0.5 mg mg 02/04/2024 6:45 EST Peripheral Pulse Rate 81 bpm Respiratory Rate 24 br/min HI Respirations Unlabored Breath Sounds Auscultated Anterior only All Lobes Breath Sounds Clear, Diminished Patient Effort Good Patient Participation in Treatment Cooperative Aerosol Delivery Device Small volume nebulizer Aerosol Treatment Route Inline Cough and Deep Breathe Done Spontaneous Cough Yes Cough Strong Sputum Amount Small Sputum Color Cream Sputum Consistency Thin FiO2 40 % Oxygen Saturation 96 % Respiratory Treatment Charge Aerosol treatment Level of Consciousness Alert 02/04/2024 6:11 EST calcium gluconate 1,000 mg mg Sodium Chloride 0.9% 50 mL mL 02/04/2024 6:00 EST Heart Rate Monitored 73 bpm Systolic Blood Pressure Non-Invasive 122 mmHg Diastolic Blood Pressure Non-Invasive 45 mmHg <LLOW Mean Arterial Pressure (NBP) 66 mmHg Oxygen Saturation 95 % heparin Not Done: Physician Order (Not Done) 02/04/2024 5:42 EST Critical Care Progress Notes Progress Note (Modified) 02/04/2024 5:32 EST Notify date/time 02/04/2024 5:32 Provider Notified JOSE ANGEL FREGOSO APRN-ARNIE Notification Method Face to face conversation Information Communicated Lab Critical Result(s) Details Communicated Patient calcium level 6.7. Notification Outcome Orders received Person Reporting Result(s) Darek Ferreira RN Details of Results Received Administer Calcium Gluconate IVPB. Results Read Back Yes Heart Rate Monitored 75 bpm Respiratory Rate 25 br/min HI Systolic Blood Pressure Non-Invasive 108 mmHg Diastolic Blood Pressure Non-Invasive 51 mmHg LOW Mean Arterial Pressure (NBP) 68 mmHg Reason For Taking VItal Signs Routine Oral Care ICU Done Primary Pain Intensity 3 Primary Pain Nonverbal Response Appears restful Pain Scale Type Behavioral pain scale Monitor Alarms On and Limits Checked Nail Bed Color [place] Capillary Refill < 2 seconds Heart Sounds ICU S1S2 Heart Rhythm Regular Radial Pulse, Left 2+ Normal Radial Pulse, Right 2+ Normal Cardiac Rhythm Sinus rhythm Monitoring Lead II, V1/MCL1 Alarms On and Functional Yes Respirations Unlabored Respiratory Pattern Regular Respiratory Pattern Detailed Vented Patient Airway Status Patent with support Breath Sounds Auscultated Anterior only All Lobes Breath Sounds Clear Ventilator Mode (A/C) Assist/Control Ventilation (Modified) Ventilator Frequency, Mandatory 24 br/min (Modified) Tidal Volume, Delivered 0.500 L Positive End Expiratory Pressure 5 cmH20 FiO2 45 % Vent FiO2 45 % Tidal Volume, Exhaled 0.521 L Resuscitation Bag Available Yes Vent Alarms On and Functional Yes Oxygen Therapy Ventilator Oxygen Saturation 95 % Cuffed endotracheal tube 8.0 02/03/2024 Endotracheal Tube Activity: Assessed Endotracheal Tube Placement: Oral, mid ET Tube Insertion cm [place] at Lip: 24 cm Endotracheal Tube Position Confirmation: Breath sounds Endotracheal Tube Status: Patent, Secure, manufactured tube alfredo Endotracheal Tube Care: Oral care Abdomen Description Rounded Abdomen Palpation Soft Bowel Continence No bowel movement Bowel Sounds All Quadrants Present Nasogastric (NG) Nostril, left Gastrointestinal Tube Activity: Assessed Enteral Tube Insertion cm [place] at Nare: 78 cm GI Tube Method of Drainage: Clamped Gastrointestinal Tube Site Condition: No complications Urinary Elimination Urinary catheter draining Urine Color Yellow Urine Description Clear Urinary Elimination Devices Indwelling catheter Urethral Indwelling/Continuous 16 Fr 01/21/2024 Urinary Catheter Activity: Assessed Urinary Catheter Site Condition: No complications Urinary Catheter Output: 750 mL Skin Description Normal for ethnicity Mucous Membrane Description Moist Skin Color General Usual for ethnicity Abdomen Anterior Skin Abnormality Type: Surgical incision Incision, Wound Dressing/Activity: Assessed Wound Status: Unchanged Abdomen Left Lateral Skin Abnormality Type: Tear Incision, Wound Dressing/Activity: Assessed Wound Status: Unchanged Abdomen Right Multiple scattered Skin Abnormality Type: Procedure site Incision, Wound Dressing/Activity: Assessed Wound Status: Unchanged Forearm Left 02/01/2024 20 gauge Peripheral IV Activity: Assessed Peripheral IV Site Condition: No complications Peripheral IV Equipment: PRN Adaptor Forearm Right 02/01/2024 18 gauge Peripheral IV Activity: Assessed Peripheral IV Site Condition: No complications Peripheral IV Equipment: PRN Adaptor Neurological Language Intubated or other physical barrier Neurological Symptoms Weakness Extremity Movement Equal Characteristics of Communication Unable to speak, due to vent Characteristics of Speech Unable to assess Facial Symmetry Symmetric Level of Consciousness Alert G[place] Yes Strength All Extremities Weak CN V Facial Sensation Corneal reflex present CN IX, X Swallowing, Gag Reflex Gag reflex present Affect/Behavior Impulsive Orientation Follows simple commands Soft limb holders (Cloth) Wrist, bilateral Restraint Technique: Non Violent Restraint Restraint Activity Type: Continue restraint, same episode Behavior Requiring Non Violent Restraint Attempts to remove medical management devices Type of Medical Devices: Monitoring equipment, Tubes/drains, IV/arterial access, Airway management equipment Rationale for Restraint: Attempting to remove devices, despite current restraints Range of Motion: Repositioned Restraint Skin Assessment: Skin intact, Pulses intact Restraint Nutrition/Hydration: NPO Restraint Hygiene/Elimination: Urinary catheter Other Standard Safety: ID band check Bed Standard Safety: Bed alert on, Bed in low position, Upper/Half-length side rails up, HOB elevated Restraint DC Readiness Attempts: Enhanced observation, Environmental changes Restraint DC Intervention Status: Intervention attempted, not successful Right lateral 16 Micronesian Chest Tube Activity: Assess Chest Tube Connectivity: Water-Seal gravity Chest Tube Water Seal Chamber Desc: Absence of Bubbling Chest Tube Interventions: Clamps at bedside Chest Tube Drainage Description: Straw colored Chest Tube Dressing Condition: Clean, Dry, Intact Chest Tube Dressing: Occlusive dressing Chest Tube Output: 20 mL Orientation Assessment Unable to evaluate Positioning Repositioned back Activity Status ADL Resting Beds/Devices low air loss bed Assistive Equipment boot(s) on, elevated on pillows Activity Assistance Maximum assistance Sequential Compression Device right knee high applied/on Antiembolism Stocking On/Re-applied bilateral knee high NPO Status Maintained Oral Care Oral care protocol Standard Safety ID band on High Risk Safety Room check performed Demonstrates Correct Call Light Use No Degrees Head of Bed Elevated 30 02/04/2024 4:48 EST WBC 8.0 10^3/mcL RBC 3.49 10^6/mcL LOW Hgb 10.7 G/dL LOW Hct 32.0 % LOW MCV 91.7 fL MCH 30.8 pg MCHC 33.5 G/dL RDW 13.6 % Platelet 371 10^3/mcL MPV 10.2 fL Neutrophil % 85.7 % HI Lymphocyte % 7.0 % LOW Monocyte % 5.9 % Eosinophil % 1.0 % Basophil % 0.4 % Neutrophil, Absolute 6.9 10^3/mcL Lymphocyte, Absolute 0.6 10^3/mcL LOW Monocyte, Absolute 0.5 10^3/mcL Eosinophil, Absolute 0.1 10^3/mcL Basophil, Absolute 0.0 10^3/mcL Glucose Level 126 mg/dL HI Sodium Level 144 mEq/L Potassium Level 3.9 mEq/L Chloride 109 mEq/L CO2 24 mEq/L Electrolyte Balance 11.0 mEq/L BUN 73.0 mg/dL HI Creatinine Lvl (s) 1.75 mg/dL HI BUN/Creatinine Ratio 41.7 ratio HI Calcium Lvl 6.7 mg/dL CRIT Magnesium Lvl 2.0 mg/dL Phosphorus 5.5 mg/dL HI Total Protein 5.3 G/dL LOW Albumin Level 1.0 G/dL LOW Globulin 4.3 G/dL HI A/G Ratio 0.2 ratio LOW Bili Total 0.30 mg/dL Alk Phos 80 U/L AST/SGOT 44 U/L HI ALT/SGPT 30 U/L GFR Non- 39 ml/min/1.73sqm NA GFR 47 ml/min/1.73sqm NA Calcium Ionized 0.95 mmol/L LOW ABO/Rh Interp A POS ABSC Interp (Gel) Negative ABSC Creatinine Clearance Calc 40.75 mL/min 02/04/2024 4:18 EST Individuals Taught Patient Learning Readiness critical condition Barriers to Learning Acuity of illness Teaching Method Explanation Preferred Spoken Language Nigerien Preferred Written Language Nigerien Restraint Use Education Reason for restraint use Restraint Teaching Evaluation Needs further teaching 02/04/2024 3:42 EST Blood Glucose, Capillary 118 mg/dL HI Blood Glucose Testing Reason Routine Temperature Oral 36.8 DegC Heart Rate Monitored 71 bpm Respiratory Rate 26 br/min HI Systolic Blood Pressure Non-Invasive 125 mmHg Diastolic Blood Pressure Non-Invasive 52 mmHg LOW Mean Arterial Pressure (NBP) 72 mmHg Reason For Taking VItal Signs Routine Oral Care ICU Done Primary Pain Intensity 3 Primary Pain Nonverbal Response Appears restful Pain Scale Type Behavioral pain scale Monitor Alarms On and Limits Checked Nail Bed Color [place] Capillary Refill < 2 seconds Heart Sounds ICU S1S2 Heart Rhythm Regular Dorsalis Pedis Pulse, Left 1+ Thready Dorsalis Pedis Pulse, Right 1+ Thready Posttibial Pulse, Left 1+ Thready Posttibial Pulse, Right 1+ Thready Radial Pulse, Left 2+ Normal Radial Pulse, Right 2+ Normal Generalized Edema Ratin+ mild/4mm Hand edema Bilateral Edema Ratin+ mild/4mm Cardiac Rhythm Sinus rhythm Monitoring Lead II, V1/MCL1 Alarms On and Functional Yes Heart Rate Alarm Set At - Low 50 Heart Rate Alarm Set At - High 120 NSBP Alarm Low 90 NSBP Alarm High 160 HI Respirations Unlabored Respiratory Pattern Regular Respiratory Pattern Detailed Vented Patient Airway Status Patent with support Breath Sounds Auscultated Anterior only All Lobes Breath Sounds Clear Ventilator Mode (A/C) Assist/Control Ventilation Ventilator Frequency, Mandatory 24 br/min Tidal Volume, Delivered 0.500 L Positive End Expiratory Pressure 5 cmH20 FiO2 45 % Vent FiO2 45 % Tidal Volume, Exhaled 0.498 L Resuscitation Bag Available Yes Vent Alarms On and Functional Yes Oxygen Therapy Ventilator Oxygen Saturation 96 % Tracheal Position Midline Cuffed endotracheal tube 8.0 02/03/2024 Endotracheal Tube Activity: Assessed Endotracheal Tube Placement: Oral, mid ET Tube Insertion cm [place] at Lip: 24 cm Endotracheal Tube Position Confirmation: Breath sounds Endotracheal Tube Status: Patent, Secure, manufactured tube alfredo Endotracheal Tube Care: Oral care Abdomen Description Rounded Abdomen Palpation Soft Bowel Continence No bowel movement Bowel Sounds All Quadrants Present (Modified) Nasogastric (NG) Nostril, left Gastrointestinal Tube Activity: Assessed Enteral Tube Insertion cm [place] at Nare: 78 cm GI Tube Method of Drainage: Clamped Gastrointestinal Tube Site Condition: No complications Enteral Tube Intake: 0 mL Urinary Elimination Urinary catheter draining Urinary Elimination Devices Indwelling catheter Urethral Indwelling/Continuous 16 Fr 01/21/2024 Urinary Catheter Indication: ICU Patient-Hemodynamic instability Urinary Catheter Activity: Assessed Urinary Catheter Secured: Securement device on Urinary Catheter Drainage System: Dependent drainage bag Urinary Catheter Site Condition: No complications Facial Movement Symmetric resting/crying Bilateral Upper Extremity Description Normal for ethnicity All Extremity Description Normal for ethnicity Skin Temperature Warm Skin Description Normal for ethnicity Skin Integrity Not intact Skin Turgor Non-Elastic Mucous Membrane Color [place] Mucous Membrane Description Moist Skin Color General Usual for ethnicity Skin Moisture General Dry Sensory Perception Alex No impairment Moisture Alex Rarely moist Activity Alex Bedfast Mobility Alex Very limited Nutrition Alex Probably inadequate Friction and Shear Alex Potential problem Alex Score 15 Hospital Acquired Pressure Injury Risk Low risk (score 15-18) Abdomen Anterior Skin Abnormality Type: Surgical incision Incision, Wound Dressing/Activity: Assessed Incision, Wound Dressing Assessment: Clean, Dry, Intact Incision, Wound Dressing: Vacuum assisted closure Wound Drainage Device: Negative pressure wound system Negative Pressure Wound SettinmmHg Neg Pressure Wound Therapy Dressing: Black Sponge Wound Status: No complications Abdomen Left Lateral Skin Abnormality Type: Tear Incision, Wound Dressing/Activity: Assessed Incision, Wound Dressing Assessment: Clean, Dry, Intact Incision, Wound Dressing: Hydrocolloid (Duoderm) Wound Exudate Amount: Scant Wound Exudate Type: Sanguineous Wound Exudate Odor: None Wound Status: No complications Abdomen Right Multiple scattered Skin Abnormality Type: Procedure site Incision, Wound Dressing/Activity: Assessed Incision, Wound Dressing Assessment: Clean, Dry, Intact Incision, Wound Dressing: ABD dressing pad Wound Exudate Amount: Scant Wound Exudate Type: Serous Wound Status: No complications Continuous IV Infusions prn Forearm Left 02/01/2024 20 gauge Peripheral IV Activity: Assessed Peripheral IV Dressing Condition: Clean, Dry, Intact Peripheral IV Dressing Activity: Transparent dressing Peripheral IV Line Status/Patency: Flushes easily Peripheral IV Site Condition: No complications Peripheral IV Equipment: PRN Adaptor Forearm Right 02/01/2024 18 gauge Peripheral IV Activity: Assessed Peripheral IV Dressing Condition: Clean, Dry, Intact Peripheral IV Dressing Activity: Transparent dressing Peripheral IV Line Status/Patency: Flushes easily Peripheral IV Site Condition: No complications Peripheral IV Equipment: PRN Adaptor Neurological Language Intubated or other physical barrier Neurological Symptoms Weakness Gait Unable to assess Extremity Movement Equal Characteristics of Communication Unable to speak, due to vent Characteristics of Speech Unable to assess Facial Symmetry Symmetric Level of Consciousness Alert Eye Opening Response [place] Spontaneously Best Motor Response Nathan Obeys simple commands Best Verbal Response [place] None [place] Coma Score 11 GALILEA Yes Left Pupil Description Regular Right Pupil Description Regular Left Pupil Reaction Brisk Right Pupil Reaction Brisk Pupil Size, Left 3 mm Pupil Size, Right 3 mm Strength All Extremities Weak Left Upper Extremity Sensation Intact Right Upper Extremity Sensation Intact Left Lower Extremity Sensation Intact Right Lower Extremity Sensation Intact CN V Facial Sensation Corneal reflex present CN VII Facial Expression and Symmetry Facial movement symmetrical CN IX, X Swallowing, Gag Reflex Gag reflex present Parry Screen Daily History of Fall in Last 3 Months Parry No Presence of Secondary Diagnosis Parry Yes Use of Ambulatory Aid Parry None, bedrest, wheelchair, nurse IV/PRN Adapter Fall Risk Parry Yes Gait Weak or Impaired Fall Risk Parry Normal, bedrest, immobile Mental Status Fall Risk Parry Forgets limitations Parry Fall Risk Score 50 HI Violence Risk Confused Yes Violence Risk Irritable No Violence Risk Boisterous No Violence Risk Verbal Threats No Violence Risk Physical Threats No Violence Risk Attacking Objects No Violence Risk Predictor Score 1 Violence Risk Intervention Diversional activities Violence Risk Current Interventions Restraint Non Violent Affect/Behavior Impulsive Orientation Follows simple commands Soft limb holders (Cloth) Wrist, bilateral Restraint Technique: Non Violent Restraint Restraint Activity Type: Continue restraint, same episode Behavior Requiring Non Violent Restraint Attempts to remove medical management devices Type of Medical Devices: Monitoring equipment, Tubes/drains, IV/arterial access, Airway management equipment Rationale for Restraint: Attempting to remove devices, despite current restraints Range of Motion: Repositioned Restraint Skin Assessment: Skin intact, Pulses intact Restraint Nutrition/Hydration: NPO Restraint Hygiene/Elimination: Urinary catheter Other Standard Safety: ID band check Bed Standard Safety: Bed alert on, Bed in low position, Upper/Half-length side rails up, Wheels locked, HOB elevated Restraint DC Readiness Attempts: Enhanced observation, Environmental changes Restraint DC Intervention Status: Intervention attempted, not successful Right lateral 16 Micronesian Chest Tube Activity: Assess Chest Tube Connectivity: Water-Seal gravity Chest Tube Water Seal Chamber Desc: Absence of Bubbling Chest Tube Interventions: Clamps at bedside Chest Tube Drainage Description: Straw colored Chest Tube Dressing Condition: Clean, Dry, Intact Chest Tube Dressing: Occlusive dressing BMAT Existing Patient Condition/Safety Strict bedrest Orientation Assessment Unable to evaluate Positioning Repositioned left side Activity Status ADL Resting, Watching TV Beds/Devices low air loss bed Assistive Equipment boot(s) on, elevated on pillows Activity Assistance Maximum assistance Sequential Compression Device right knee high applied/on Antiembolism Stocking On/Re-applied bilateral knee high NPO Status Maintained Oral Care Oral care protocol Standard Safety ID band on, Safety level maintained High Risk Safety Room check performed Special Call Device Unable to use call device Demonstrates Correct Call Light Use No Degrees Head of Bed Elevated 30 Oral Intake 0 mL Stool Count 0 EA 02/04/2024 3:06 EST Heart Rate Monitored 71 bpm Respiratory Rate 25 br/min HI Systolic Blood Pressure Non-Invasive 129 mmHg Diastolic Blood Pressure Non-Invasive 53 mmHg LOW Mean Arterial Pressure (NBP) 73 mmHg Respirations Hyperpnea Respiratory Pattern Detailed Vented Patient Airway Status Patent with support Ventilator Mode (A/C) Assist/Control Ventilation Breath Type VC (Volume Control) Ventilator Frequency, Mandatory 24 br/min Tidal Volume, Delivered 0.500 L Positive End Expiratory Pressure 5 cmH20 Flow Trigger (range 0.3 - 15 L/min.) 2 L/min Inspiratory Time (TI) 0.7 second(s) Tube Compensation Off Auto Flow On Ventilator Model PAYMILLer V500 Ventilator ID [id number] Vent FiO2 45 % Respiratory Rate Total 25 br/min HI Minute Volume 11.4 L/min Respiratory Rate, Spontaneous 1 br/min Inspiratory to Expiratory (I:E) Ratio 1:2.5 Tidal Volume, Exhaled 0.566 L Peak Inspiratory Pressure 19 cmH20 End-inspiratory pause 14 cm/H2O Mean Airway Pressure 8.8 Resuscitation Bag Available Yes Mask, Obturator, Syringe at bedside Yes Vent Alarms On and Functional Yes Vent Alarm High Pressure 40 cmH20 High Tidal Volume 0.900 Vent Alarm High Rate 40 br/min Vent Alarm Low Minute Volume 5 L/min Vent Alarm High Minute Volume 15 L/min High Minute Ventilation Delay 0 second(s) Low Minute Ventilation Delay 0 second(s) Oxygen Saturation 96 % HME (Heat & Moisture Exchanger) On Cuffed endotracheal tube 8.0 02/03/2024 Endotracheal Tube Activity: Assessed Endotracheal Tube Placement: Oral, mid ET Tube Insertion cm [place] at Lip: 24 cm Endotracheal Tube Position Confirmation: Breath sounds Endotracheal Tube Cuff Pressure Method: Minimum leak volume Endotracheal Tube Status: Patent, Secure, manufactured tube alfredo Endotracheal Tube Care: Repositioned Level of Consciousness Alert 02/04/2024 2:29 EST Pain Scale Assessment Behavioral pain scale Primary Pain Location Abdomen Primary Pain Intensity 3 Reason for PRN medication Pain management PRN medication effectiveness Yes PRN Medication Effectiveness Evaluation PRN Medication Effectiveness Evaluation 02/04/2024 2:28 EST CAM Mental Status Change & Fluctuation Not Done: See ICU flow (Not Done) CAM Inattention Not Done: See ICU flow (Not Done) CAM Disorganized Thinking Not Done: See ICU flow (Not Done) CAM Altered Level of Consciousness Not Done: See ICU flow (Not Done) Confusion Assessment Method Score Not Done: See ICU flow (Not Done) Mechanical VTE Prophylaxis Education Not Done: See ICU flow (Not Done) Mechanical VTE Prophylaxis Education Not Done: See ICU flow (Not Done) Mechanical VTE Prophylaxis Education Not Done: See ICU flow (Not Done) Mechanical VTE Prophylaxis Education Not Done: See ICU flow (Not Done) Sequential Compression Device Not Done: See ICU flow (Not Done) Sequential Compression Device Not Done: See ICU flow (Not Done) Antiembolism Stockings Form Not Done (Not Done) Antiembolism Stockings Form Not Done (Not Done) Sequential Compression Device Form Not Done (Not Done) Sequential Compression Device Form Not Done (Not Done) 02/04/2024 2:05 EST Heart Rate Monitored 66 bpm Respiratory Rate 27 br/min HI Systolic Blood Pressure Non-Invasive 120 mmHg Diastolic Blood Pressure Non-Invasive 51 mmHg LOW Mean Arterial Pressure (NBP) 69 mmHg Oxygen Saturation 97 % 02/04/2024 1:32 EST Heart Rate Monitored 65 bpm Respiratory Rate 24 br/min HI Systolic Blood Pressure Non-Invasive 118 mmHg Diastolic Blood Pressure Non-Invasive 51 mmHg LOW Mean Arterial Pressure (NBP) 69 mmHg Reason For Taking VItal Signs Routine Oral Care ICU Done Sedation Level 0 Alert and Calm Sedation Level Interventions Calm Primary Pain Intensity 3 Primary Pain Nonverbal Response Appears restful Pain Scale Type Behavioral pain scale Monitor Alarms On and Limits Checked Nail Bed Color [place] Capillary Refill < 2 seconds Heart Sounds ICU S1S2 Heart Rhythm Regular Radial Pulse, Left 2+ Normal Radial Pulse, Right 2+ Normal Cardiac Rhythm Sinus rhythm Monitoring Lead II, V1/MCL1 Alarms On and Functional Yes Respirations Unlabored Respiratory Pattern Regular Respiratory Pattern Detailed Vented Patient Airway Status Patent with support Breath Sounds Auscultated Anterior only All Lobes Breath Sounds Clear Ventilator Mode (A/C) Assist/Control Ventilation Ventilator Frequency, Mandatory 24 br/min Tidal Volume, Delivered 0.500 L Positive End Expiratory Pressure 5 cmH20 FiO2 50 % Vent FiO2 50 % Tidal Volume, Exhaled 0.514 L Resuscitation Bag Available Yes Vent Alarms On and Functional Yes Oxygen Therapy Ventilator Oxygen Saturation 98 % Cuffed endotracheal tube 8.0 02/03/2024 Endotracheal Tube Activity: Assessed Endotracheal Tube Placement: Oral, right ET Tube Insertion cm [place] at Lip: 24 cm Endotracheal Tube Position Confirmation: Breath sounds Endotracheal Tube Status: Patent, Secure, manufactured tube alfredo Endotracheal Tube Care: Oral care Abdomen Description Rounded Abdomen Palpation Soft Bowel Continence No bowel movement Bowel Sounds All Quadrants Hypoactive Nasogastric (NG) Nostril, left Gastrointestinal Tube Activity: Assessed Enteral Tube Insertion cm [place] at Nare: 78 cm GI Tube Method of Drainage: Clamped Gastrointestinal Tube Care: Oral care Gastrointestinal Tube Site Condition: No complications Urinary Elimination Urinary catheter draining Urinary Elimination Devices Indwelling catheter Urethral Indwelling/Continuous 16 Fr 01/21/2024 Urinary Catheter Activity: Assessed Urinary Catheter Site Condition: No complications Facial Movement Symmetric resting/crying Skin Temperature Warm Skin Description Normal for ethnicity Skin Integrity Not intact Skin Turgor Non-Elastic Mucous Membrane Color [place] Mucous Membrane Description Moist Skin Color General Usual for ethnicity Skin Moisture General Dry Abdomen Anterior Skin Abnormality Type: Surgical incision Incision, Wound Dressing/Activity: Assessed Wound Status: Unchanged Abdomen Left Lateral Wound Status: Unchanged Abdomen Right Multiple scattered Wound Status: Unchanged Continuous IV Infusions prn. Forearm Left 02/01/2024 20 gauge Peripheral IV Activity: Assessed Peripheral IV Site Condition: No complications Forearm Right 02/01/2024 18 gauge Peripheral IV Activity: Assessed Peripheral IV Site Condition: No complications Neurological Language Intubated or other physical barrier Neurological Symptoms Weakness Extremity Movement Equal Characteristics of Communication Unable to speak, due to vent Characteristics of Speech Unable to assess Facial Symmetry Symmetric Level of Consciousness Arousable with minimal stimulation Eye Opening Response [place] Spontaneously Best Motor Response [place] Obeys simple commands Best Verbal Response Nathan None Nathan Coma Score 11 GALILEA Yes Strength All Extremities Weak CN V Facial Sensation Corneal reflex present CN VII Facial Expression and Symmetry Facial movement symmetrical CN IX, X Swallowing, Gag Reflex Gag reflex present Affect/Behavior Calm, Impulsive Orientation Follows simple commands Soft limb holders (Cloth) Wrist, bilateral Restraint Technique: Non Violent Restraint Restraint Activity Type: Continue restraint, same episode Behavior Requiring Non Violent Restraint Attempts to remove medical management devices Type of Medical Devices: Monitoring equipment, Tubes/drains, IV/arterial access, Airway management equipment Rationale for Restraint: Attempting to remove devices, despite current restraints Range of Motion: Repositioned Restraint Skin Assessment: Skin intact, Pulses intact Restraint Nutrition/Hydration: NPO Restraint Hygiene/Elimination: Urinary catheter Other Standard Safety: Call device within reach, ID band check, Allergy Band on Bed Standard Safety: Bed alert on, Bed in low position Restraint DC Readiness Attempts: Diversional activities, Enhanced observation, Environmental changes Restraint DC Intervention Status: Intervention attempted, not successful Right lateral 16 Micron[place] Chest Tube Activity: Assess Chest Tube Connectivity: Water-Seal gravity Chest Tube Water Seal Chamber Desc: Absence of Bubbling, No fluctuation Positioning Repositioned right side Activity Status ADL Resting Beds/Devices low air loss bed Assistive Equipment elevated on pillows Activity Assistance Maximum assistance Sequential Compression Device right knee high applied/on Antiembolism Stocking On/Re-applied bilateral knee high Standard Safety Safety level maintained High Risk Safety Room check performed Special Call Device Unable to use call device Demonstrates Correct Call Light Use No Degrees Head of Bed Elevated 30 02/04/2024 0:05 EST Heart Rate Monitored 67 bpm Respiratory Rate 25 br/min HI Systolic Blood Pressure Non-Invasive 123 mmHg Diastolic Blood Pressure Non-Invasive 55 mmHg LOW Mean Arterial Pressure (NBP) 74 mmHg Oxygen Saturation 99 % 02/04/2024 0:00 EST insulin isophane Not Done: Physician Order (Not Done) 02/03/2024 23:59 EST Nasogastric (NG) Nostril, left Gastrointestinal Tube Activity: Assessed Enteral Tube Insertion cm [place] at Nare: 78 cm GI Tube Method of Drainage: Clamped Gastrointestinal Tube Care: Irrigated with water Gastrointestinal Tube Site Condition: No complications Enteral Tube Flush: 30 mL 02/03/2024 23:52 EST Peripheral Pulse Rate 67 bpm Respiratory Rate 25 br/min HI Respirations Hyperpnea Breath Sounds Auscultated Anterior only All Lobes Breath Sounds Clear Patient Effort Good Patient Participation in Treatment Cooperative Aerosol Delivery Device Small volume nebulizer Aerosol Treatment Route Inline, T-Piece Cough and Deep Breathe Not done Spontaneous Cough No FiO2 50 % Peak Inspiratory Pressure 17 cmH20 Oxygen Saturation 97 % Respiratory Treatment Charge Aerosol treatment Level of Consciousness Arousable with minimal stimulation albuterol-ipratropium 3 mL mL 02/03/2024 23:49 EST Heart Rate Monitored 67 bpm Respiratory Rate 25 br/min HI Respirations Hyperpnea Respiratory Pattern Detailed Vented Patient Airway Status Patent with support Ventilator Mode (A/C) Assist/Control Ventilation Breath Type VC (Volume Control) Ventilator Frequency, Mandatory 24 br/min Tidal Volume, Delivered 0.500 L Positive End Expiratory Pressure 5 cmH20 Flow Trigger (range 0.3 - 15 L/min.) 2 L/min Inspiratory Time (TI) 0.7 second(s) Tube Compensation Off Auto Flow On Ventilator Model PAYMILLer V500 Ventilator ID [id number] Vent FiO2 50 % Respiratory Rate Total 25 br/min HI Minute Volume 11.7 L/min Respiratory Rate, Spontaneous 1 br/min Inspiratory to Expiratory (I:E) Ratio 1:2.6 Tidal Volume, Exhaled 0.506 L Peak Inspiratory Pressure 21 cmH20 End-inspiratory pause 16 cm/H2O Mean Airway Pressure 8.9 Resuscitation Bag Available Yes Mask, Obturator, Syringe at bedside Yes Vent Alarms On and Functional Yes Vent Alarm High Pressure 40 cmH20 High Tidal Volume 0.900 Vent Alarm High Rate 40 br/min Vent Alarm Low Minute Volume 5 L/min Vent Alarm High Minute Volume 15 L/min High Minute Ventilation Delay 0 second(s) Low Minute Ventilation Delay 0 second(s) Oxygen Saturation 98 % HME (Heat & Moisture Exchanger) On Cuffed endotracheal tube 8.0 02/03/2024 Endotracheal Tube Activity: Assessed Endotracheal Tube Placement: Oral, right ET Tube Insertion cm [place] at Lip: 24 cm Endotracheal Tube Position Confirmation: Breath sounds Endotracheal Tube Cuff Pressure Method: Minimum leak volume Endotracheal Tube Status: Patent, Secure, manufactured tube alfredo Endotracheal Tube Care: Repositioned 02/03/2024 23:27 EST Apical Heart Rate 70 bpm metoprolol 25 mg mg ocular lubricant 1 mendy mendy ocular lubricant 1 drop(s) drop(s) 02/03/2024 23:18 EST insulin isophane 10 unit(s) unit(s) 02/03/2024 23:13 EST Notify date/time 02/03/2024 23:13 Provider Notified TEVIN VELEZ [facility] Notification Method Phone Information Communicated Bedside blood glucose result(s) Details Communicated pt BS is 167, 20 units of NPH due. pt is NPO at midnight, do you want me to give or hold? Notification Outcome Orders received Person Reporting Result(s) sonirn Details of Results Received give 10 units of NPH instead of 20 units. Results Read Back Yes Heart Rate Monitored 70 bpm Oxygen Saturation 98 % 02/03/2024 23:08 EST Blood Glucose, Capillary 167 mg/dL HI Blood Glucose Testing Reason Routine Temperature Oral 36.8 DegC Heart Rate Monitored 70 bpm Respiratory Rate 27 br/min HI Systolic Blood Pressure Non-Invasive 133 mmHg Diastolic Blood Pressure Non-Invasive 54 mmHg LOW Mean Arterial Pressure (NBP) 73 mmHg Reason For Taking VItal Signs Routine Oral Care ICU Done Eye Care Done Sedation Level -1 Drowsy Sedation Level Interventions Calm Primary Pain Intensity 3 Primary Pain Nonverbal Response Appears restful Pain Scale Type Behavioral pain scale Monitor Alarms On and Limits Checked Nail Bed Color [place] Capillary Refill < 2 seconds Heart Sounds ICU S1S2 Heart Rhythm Regular Dorsalis Pedis Pulse, Left 1+ Thready Dorsalis Pedis Pulse, Right 1+ Thready Posttibial Pulse, Left 1+ Thready Posttibial Pulse, Right 1+ Thready Radial Pulse, Left 2+ Normal Radial Pulse, Right 2+ Normal Generalized Edema Ratin+ mild/4mm Hand edema Bilateral Edema Ratin+ mild/4mm Cardiac Rhythm Sinus rhythm Monitoring Lead II, V1/MCL1 Alarms On and Functional Yes Heart Rate Alarm Set At - Low 50 Heart Rate Alarm Set At - High 120 NSBP Alarm Low 90 NSBP Alarm High 160 HI Respirations Unlabored Respiratory Pattern Regular Respiratory Pattern Detailed Vented Patient Airway Status Patent with support Breath Sounds Auscultated Anterior only All Lobes Breath Sounds Clear Cough None Ventilator Mode (A/C) Assist/Control Ventilation Ventilator Frequency, Mandatory 24 br/min Tidal Volume, Delivered 0.500 L Positive End Expiratory Pressure 5 cmH20 FiO2 55 % Vent FiO2 55 % Tidal Volume, Exhaled 0.639 L Resuscitation Bag Available Yes Vent Alarms On and Functional Yes Oxygen Therapy Ventilator Oxygen Saturation 98 % Tracheal Position Midline Cuffed endotracheal tube 8.0 02/03/2024 Endotracheal Tube Activity: Assessed Endotracheal Tube Placement: Oral, mid ET Tube Insertion cm [place] at Lip: 24 cm Endotracheal Tube Position Confirmation: Breath sounds Endotracheal Tube Status: Patent, Secure, manufactured tube alfredo Endotracheal Tube Care: Oral care Abdomen Description Rounded Abdomen Palpation Soft Bowel Continence No bowel movement Bowel Sounds All Quadrants Hypoactive Nasogastric (NG) Nostril, left Gastrointestinal Tube Activity: Assessed, Tube feeding Enteral Tube Insertion cm [place] at Nare: 78 cm Gastrointestinal Tube Care: Irrigated with water, Oral care Gastrointestinal Tube Site Condition: No complications Tube Feeding Type: Nepro Tube Feed Rate: 40 mL/hr Free Water: 500 mL GI Tube Placement Confirmation: Aspiration Urinary Elimination Urinary catheter draining Urine Color Yellow Urine Description Clear Urinary Elimination Devices Indwelling catheter Urethral Indwelling/Continuous 16 Fr 01/21/2024 Urinary Catheter Activity: Assessed Urinary Catheter Secured: Securement device on Urinary Catheter Drainage System: Dependent drainage bag Urinary Catheter Site Condition: No complications Facial Movement Symmetric resting/crying All Extremity Description Normal for ethnicity Skin Temperature Warm Temperature All Extremities Warm Skin Description Normal for ethnicity Skin Integrity Not intact Skin Turgor Non-Elastic Mucous Membrane Color [place] Mucous Membrane Description Dry Skin Color General Usual for ethnicity Skin Moisture General Dry Abdomen Anterior Skin Abnormality Type: Surgical incision Incision, Wound Dressing/Activity: Assessed Incision, Wound Dressing Assessment: Clean, Dry, Intact Incision, Wound Dressing: Vacuum assisted closure Wound Drainage Device: Negative pressure wound system Negative Pressure Wound SettinmmHg Neg Pressure Wound Therapy Dressing: Black Sponge Wound Status: No complications Abdomen Left Lateral Skin Abnormality Type: Tear Incision, Wound Dressing/Activity: Assessed Incision, Wound Dressing Assessment: Clean, Dry, Intact Incision, Wound Dressing: Hydrocolloid (Duoderm) Wound Exudate Amount: None Wound Status: No complications Abdomen Right Multiple scattered Skin Abnormality Type: Procedure site Incision, Wound Dressing/Activity: Assessed Incision, Wound Dressing Assessment: Clean, Dry, Intact Incision, Wound Dressing: ABD dressing pad Wound Exudate Amount: None Wound Status: No complications Continuous IV Infusions prn. Forearm Left 02/01/2024 20 gauge Peripheral IV Activity: Assessed Peripheral IV Dressing Condition: Clean, Dry, Intact Peripheral IV Dressing Activity: Transparent dressing Peripheral IV Line Status/Patency: Flushes easily Peripheral IV Site Condition: No complications Peripheral IV Equipment: PRN Adaptor Forearm Right 02/01/2024 18 gauge Peripheral IV Activity: Assessed Peripheral IV Dressing Condition: Clean, Dry, Intact Peripheral IV Dressing Activity: Transparent dressing Peripheral IV Line Status/Patency: Flushes easily Peripheral IV Site Condition: No complications Peripheral IV Equipment: PRN Adaptor Neurological Language Intubated or other physical barrier Neurological Symptoms Weakness Extremity Movement Equal Characteristics of Communication Unable to speak, due to vent Characteristics of Speech Unable to assess Facial Symmetry Symmetric Level of Consciousness Arousable with minimal stimulation Eye Opening Response [place] Spontaneously Best Motor Response Nathan Obeys simple commands Best Verbal Response [place] None Nathan Coma Score 11 GALILEA Yes Left Pupil Description Regular Right Pupil Description Regular Left Pupil Reaction Brisk Right Pupil Reaction Brisk Pupil Size, Left 3 mm Pupil Size, Right 3 mm Strength All Extremities Weak Left Upper Extremity Sensation Intact Right Upper Extremity Sensation Intact Left Lower Extremity Sensation Intact (Modified) Right Lower Extremity Sensation Intact CN V Facial Sensation Corneal reflex present CN VII Facial Expression and Symmetry Facial movement symmetrical CN IX, X Swallowing, Gag Reflex Gag reflex present Affect/Behavior Calm, Impulsive Orientation Follows simple commands Soft limb holders (Cloth) Wrist, bilateral Restraint Technique: Non Violent Restraint Restraint Activity Type: Continue restraint, same episode Behavior Requiring Non Violent Restraint Attempts to remove medical management devices Type of Medical Devices: Monitoring equipment, Tubes/drains, IV/arterial access, Airway management equipment Rationale for Restraint: Attempting to remove devices, despite current restraints Range of Motion: Repositioned Restraint Skin Assessment: Skin intact, Pulses intact Restraint Nutrition/Hydration: Tube feeding Restraint Hygiene/Elimination: Urinary catheter Other Standard Safety: Call device within reach Bed Standard Safety: Bed alert on, Bed in low position Restraint DC Readiness Attempts: Diversional activities, Enhanced observation, Environmental changes Restraint DC Intervention Status: Intervention attempted, not successful Right lateral 16 Micronesian Chest Tube Activity: Assess Chest Tube Connectivity: Water-Seal gravity Chest Tube Water Seal Chamber Desc: Absence of Bubbling, No fluctuation Chest Tube Interventions: Clamps at bedside Chest Tube Drainage Description: Straw colored Chest Tube Dressing Condition: Clean, Dry, Intact Chest Tube Dressing: Occlusive dressing Positioning Repositioned back Activity Status ADL Resting Beds/Devices low air loss bed Assistive Equipment elevated on pillows Activity Assistance Maximum assistance Sequential Compression Device right knee high applied/on Antiembolism Stocking On/Re-applied bilateral knee high Standard Safety Safety level maintained High Risk Safety Room check performed Special Call Device Unable to use call device Demonstrates Correct Call Light Use No Degrees Head of Bed Elevated 30 02/03/2024 23:00 EST Wound Vac 1 100 mL 02/03/2024 22:30 EST Urethral Indwelling/Continuous 16 Fr 01/21/2024 Urinary Catheter Care Completed: Yes CHG Preoperative Wash/Wipe Night before procedure Bed Bath Maximum assistance Hair Care Maximum assistance Oral Care Oral care protocol Skin Care Done Skin Care Product Applied CHG bath Lorenza Care Maximum assistance Linen Change Done 02/03/2024 22:09 EST Heart Rate Monitored 67 bpm Systolic Blood Pressure Non-Invasive 126 mmHg Diastolic Blood Pressure Non-Invasive 48 mmHg <LLOW Mean Arterial Pressure (NBP) 67 mmHg Oxygen Saturation 99 % 02/03/2024 21:20 EST chlorhexidine topical 15 mL mL heparin 5,000 unit(s) unit(s) 02/03/2024 21:17 EST Heart Rate Monitored 67 bpm Respiratory Rate 26 br/min HI Systolic Blood Pressure Non-Invasive 119 mmHg Diastolic Blood Pressure Non-Invasive 47 mmHg <LLOW Mean Arterial Pressure (NBP) 67 mmHg Reason For Taking VItal Signs Routine Oral Care ICU Done Sedation Level -1 Drowsy Sedation Level Interventions Calm Primary Pain Intensity 3 Primary Pain Nonverbal Response Appears restful Pain Scale Type Behavioral pain scale Monitor Alarms On and Limits Checked Nail Bed Color [place] Capillary Refill < 2 seconds Heart Sounds ICU S1S2 Heart Rhythm Regular Radial Pulse, Left 2+ Normal Radial Pulse, Right 2+ Normal Generalized Edema Ratin+ mild/4mm Hand edema Bilateral Edema Ratin+ mild/4mm Cardiac Rhythm Sinus rhythm Monitoring Lead II, V1/MCL1 Alarms On and Functional Yes Respirations Unlabored Respiratory Pattern Regular Respiratory Pattern Detailed Vented Patient Airway Status Patent with support Breath Sounds Auscultated Anterior only All Lobes Breath Sounds Clear, Diminished Ventilator Mode (A/C) Assist/Control Ventilation Ventilator Frequency, Mandatory 24 br/min Tidal Volume, Delivered 0.500 L Positive End Expiratory Pressure 5 cmH20 FiO2 55 % Vent FiO2 55 % Tidal Volume, Exhaled 0.514 L Resuscitation Bag Available Yes Vent Alarms On and Functional Yes Oxygen Therapy Ventilator Oxygen Saturation 99 % Cuffed endotracheal tube 8.0 02/03/2024 Endotracheal Tube Activity: Assessed Endotracheal Tube Placement: Oral, mid ET Tube Insertion cm [place] at Lip: 24 cm Endotracheal Tube Position Confirmation: Breath sounds Endotracheal Tube Status: Patent, Secure, manufactured tube alfredo Endotracheal Tube Care: Oral care Abdomen Description Rounded Abdomen Palpation Soft Bowel Continence No bowel movement Bowel Sounds All Quadrants Hypoactive Nasogastric (NG) Nostril, left Gastrointestinal Tube Activity: Assessed, Tube feeding Enteral Tube Insertion cm [place] at Nare: 78 cm Gastrointestinal Tube Care: Oral care Gastrointestinal Tube Site Condition: No complications Tube Feeding Type: Nepro Tube Feed Rate: 40 mL/hr GI Tube Placement Confirmation: Aspiration Urinary Elimination Urinary catheter draining Urine Description Clear Urinary Elimination Devices Indwelling catheter Urethral Indwelling/Continuous 16 Fr 01/21/2024 Urinary Catheter Activity: Assessed Urinary Catheter Site Condition: No complications Facial Movement Symmetric resting/crying All Extremity Description Normal for ethnicity Skin Temperature Warm Temperature All Extremities Warm Skin Description Normal for ethnicity Skin Integrity Not intact Skin Turgor Non-Elastic Mucous Membrane Color [place] Mucous Membrane Description Dry Skin Color General Usual for ethnicity Skin Moisture General Dry Abdomen Anterior Skin Abnormality Type: Surgical incision Incision, Wound Dressing/Activity: Assessed Wound Status: Unchanged Abdomen Left Lateral Wound Status: Unchanged Abdomen Right Multiple scattered Wound Status: Unchanged Continuous IV Infusions prn. Forearm Left 02/01/2024 20 gauge Peripheral IV Activity: Assessed Peripheral IV Site Condition: No complications Forearm Right 02/01/2024 18 gauge Peripheral IV Activity: Assessed Peripheral IV Site Condition: No complications Neurological Language Intubated or other physical barrier Neurological Symptoms Weakness Extremity Movement Equal Characteristics of Communication Unable to speak, due to vent Characteristics of Speech Unable to assess Facial Symmetry Symmetric Level of Consciousness Arousable with minimal stimulation Eye Opening Response [place] Spontaneously Best Motor Response Nathan Obeys simple commands Best Verbal Response [place] None [place] Coma Score 11 GALILEA Yes Strength All Extremities Weak CN V Facial Sensation Corneal reflex present CN VII Facial Expression and Symmetry Facial movement symmetrical CN IX, X Swallowing, Gag Reflex Gag reflex present Affect/Behavior Calm, Impulsive Orientation Follows simple commands Soft limb holders (Cloth) Wrist, bilateral Restraint Technique: Non Violent Restraint Restraint Activity Type: Continue restraint, same episode Behavior Requiring Non Violent Restraint Attempts to remove medical management devices Type of Medical Devices: Monitoring equipment, Tubes/drains Rationale for Restraint: Attempting to remove devices, despite current restraints Range of Motion: Active range of motion Restraint Skin Assessment: Skin intact, Pulses intact Restraint Nutrition/Hydration: Tube feeding Restraint Hygiene/Elimination: Urinary catheter Other Standard Safety: Call device within reach, ID band check, Allergy Band on Bed Standard Safety: Bed alert on, Bed in low position Restraint DC Readiness Attempts: Diversional activities, Enhanced observation, Environmental changes Restraint DC Intervention Status: Intervention attempted, not successful Right lateral 16 [place] Chest Tube Activity: Assess Chest Tube Connectivity: Water-Seal gravity Chest Tube Water Seal Chamber Desc: Absence of Bubbling, No fluctuation Positioning Repositioned left side Activity Status ADL Resting Beds/Devices low air loss bed Assistive Equipment elevated on pillows Activity Assistance Maximum assistance Sequential Compression Device right knee high applied/on Antiembolism Stocking On/Re-applied bilateral knee high Standard Safety Safety level maintained High Risk Safety Room check performed Special Call Device Unable to use call device Demonstrates Correct Call Light Use No Degrees Head of Bed Elevated 30 02/03/2024 20:50 EST Heart Rate Monitored 68 bpm Respiratory Rate 24 br/min HI Respirations Unlabored, Hyperpnea Respiratory Pattern Detailed Vented Patient Airway Status Patent with support Suction Method Endotracheal Sputum Amount Small Sputum Color Clear, Cream Sputum Consistency Thin Ventilator Mode (A/C) Assist/Control Ventilation Breath Type VC (Volume Control) Ventilator Frequency, Mandatory 24 br/min Tidal Volume, Delivered 0.500 L Positive End Expiratory Pressure 5 cmH20 Flow Trigger (range 0.3 - 15 L/min.) 2 L/min Inspiratory Time (TI) 0.7 second(s) Tube Compensation Off Auto Flow On Ventilator Model Drager V500 Ventilator ID [id number] Vent FiO2 55 % Respiratory Rate Total 24 br/min Minute Volume 12.2 L/min Respiratory Rate, Spontaneous 0 br/min Inspiratory to Expiratory (I:E) Ratio 1:2.4 Tidal Volume, Exhaled 0.514 L Peak Inspiratory Pressure 19 cmH20 End-inspiratory pause 14 cm/H2O Mean Airway Pressure 8.9 Resuscitation Bag Available Yes Mask, Obturator, Syringe at bedside Yes Vent Alarms On and Functional Yes Vent Alarm High Pressure 40 cmH20 High Tidal Volume 0.900 Vent Alarm High Rate 40 br/min Vent Alarm Low Minute Volume 5 L/min Vent Alarm High Minute Volume 15 L/min High Minute Ventilation Delay 0 second(s) Low Minute Ventilation Delay 0 second(s) Oxygen Saturation 100 % HME (Heat & Moisture Exchanger) On Cuffed endotracheal tube 8.0 02/03/2024 Endotracheal Tube Activity: Assessed Endotracheal Tube Placement: Oral, mid ET Tube Insertion cm [place] at Lip: 24 cm Endotracheal Tube Position Confirmation: Breath sounds Endotracheal Tube Cuff Pressure: 27 cm/H2O Endotracheal Tube Cuff Pressure Method: Measured Endotracheal Tube Status: Patent, Secure, manufactured tube alfredo Endotracheal Tube Care: Repositioned Level of Consciousness Arousable with minimal stimulation 02/03/2024 20:21 EST Heart Rate Monitored 69 bpm Oxygen Saturation 100 % 02/03/2024 20:05 EST Heart Rate Monitored 72 bpm Systolic Blood Pressure Non-Invasive 116 mmHg Diastolic Blood Pressure Non-Invasive 47 mmHg <LLOW Mean Arterial Pressure (NBP) 65 mmHg Oxygen Saturation 100 % 02/03/2024 19:38 EST Primary Pain Intensity 7 acetaminophen-hydrocodone 2 tab(s) tab(s) 02/03/2024 19:36 EST Blood Glucose, Capillary 165 mg/dL HI Blood Glucose Testing Reason Routine Temperature Oral 37.0 DegC Heart Rate Monitored 74 bpm Respiratory Rate 26 br/min HI Systolic Blood Pressure Non-Invasive 133 mmHg Diastolic Blood Pressure Non-Invasive 59 mmHg LOW Mean Arterial Pressure (NBP) 80 mmHg Reason For Taking VItal Signs Routine Oral Care ICU Done Teeth Brushed Done Eye Care Done Sedation Level 0 Alert and Calm Sedation Level Interventions Calm Primary Pain Intensity 7 Primary Pain Nonverbal Response Facial grimace Pain Scale Type Behavioral pain scale Monitor Alarms On and Limits Checked Nail Bed Color [place] Capillary Refill < 2 seconds Heart Sounds ICU S1S2 Heart Rhythm Regular Dorsalis Pedis Pulse, Left 1+ Thready Dorsalis Pedis Pulse, Right 1+ Thready Posttibial Pulse, Left 1+ Thready Posttibial Pulse, Right 1+ Thready Generalized Edema Ratin+ mild/4mm Hand edema Bilateral Edema Ratin+ mild/4mm Cardiac Rhythm Sinus rhythm Monitoring Lead II, V1/MCL1 Alarms On and Functional Yes Heart Rate Alarm Set At - Low 50 Heart Rate Alarm Set At - High 120 NSBP Alarm Low 90 NSBP Alarm High 160 HI Respirations Unlabored Respiratory Pattern Regular Respiratory Pattern Detailed Vented Patient Airway Status Patent with support Breath Sounds Auscultated Anterior only All Lobes Breath Sounds Coarse crackles, Diminished Suction Method Endotracheal Cough Weak Suction Device Inline suctioning Sputum Amount Scant Sputum Color Clear Sputum Consistency Thin Ventilator Mode (A/C) Assist/Control Ventilation Ventilator Frequency, Mandatory 24 br/min Tidal Volume, Delivered 0.500 L Positive End Expiratory Pressure 5 cmH20 FiO2 60 % Vent FiO2 60 % Tidal Volume, Exhaled 0.580 L Resuscitation Bag Available Yes Vent Alarms On and Functional Yes Oxygen Therapy Ventilator Oxygen Saturation 97 % Tracheal Position Midline Cuffed endotracheal tube 8.0 02/03/2024 Endotracheal Tube Activity: Assessed Endotracheal Tube Placement: Oral, left ET Tube Insertion cm [place] at Lip: 24 cm Endotracheal Tube Position Confirmation: Breath sounds Endotracheal Tube Status: Patent, Secure, manufactured tube alfredo Endotracheal Tube Care: Oral care Abdomen Description Rounded Abdomen Palpation Soft Bowel Continence No bowel movement Bowel Sounds All Quadrants Hypoactive Nasogastric (NG) Nostril, left Gastrointestinal Tube Activity: Assessed, Tube feeding Enteral Tube Insertion cm [place] at Nare: 78 cm Gastrointestinal Tube Care: Oral care Gastrointestinal Tube Site Condition: No complications Tube Feeding Type: Nepro Tube Feed Rate: 40 mL/hr GI Tube Placement Confirmation: Aspiration Urinary Elimination Urinary catheter draining Urinary Elimination Devices Indwelling catheter Urethral Indwelling/Continuous 16 Fr 01/21/2024 Urinary Catheter Activity: Assessed Urinary Catheter Secured: Securement device on Urinary Catheter Drainage System: Dependent drainage bag Urinary Catheter Site Condition: No complications Facial Movement Symmetric resting/crying All Extremity Description Normal for ethnicity Skin Temperature Warm Temperature All Extremities Warm Skin Description Normal for ethnicity Skin Integrity Not intact Skin Turgor Non-Elastic Mucous Membrane Color [place] Mucous Membrane Description Dry Skin Color General Usual for ethnicity Skin Moisture General Dry Abdomen Anterior Skin Abnormality Type: Surgical incision Incision, Wound Dressing/Activity: Assessed Incision, Wound Dressing Assessment: Clean, Dry, Intact Incision, Wound Dressing: Vacuum assisted closure Wound Drainage Device: Negative pressure wound system Negative Pressure Wound SettinmmHg Neg Pressure Wound Therapy Dressing: Black Sponge Incision, Wound Surrounding Tissue: Erythema Wound Status: No complications Abdomen Left Lateral Incision, Wound Dressing/Activity: Assessed Incision, Wound Dressing Assessment: Clean, Dry, Intact Incision, Wound Dressing: Hydrocolloid (Duoderm) Wound Status: No complications Abdomen Right Multiple scattered Incision, Wound Dressing/Activity: Assessed Incision, Wound Dressing Assessment: Clean, Dry, Intact Incision, Wound Dressing: ABD dressing pad Wound Status: No complications Continuous IV Infusions prn. Forearm Left 02/01/2024 20 gauge Peripheral IV Activity: Assessed Peripheral IV Dressing Condition: Clean, Dry, Intact Peripheral IV Dressing Activity: Transparent dressing Peripheral IV Line Status/Patency: Flushes easily Peripheral IV Site Condition: No complications Peripheral IV Equipment: PRN Adaptor Forearm Right 02/01/2024 18 gauge Peripheral IV Activity: Assessed Peripheral IV Dressing Condition: Clean, Dry, Intact Peripheral IV Dressing Activity: Transparent dressing Peripheral IV Line Status/Patency: Flushes easily Peripheral IV Site Condition: No complications Peripheral IV Equipment: PRN Adaptor Neurological Language Intubated or other physical barrier Neurological Symptoms Weakness Extremity Movement Equal Characteristics of Communication Unable to speak, due to vent Characteristics of Speech Unable to assess Facial Symmetry Symmetric Level of Consciousness Alert Eye Opening Response [place] Spontaneously Best Motor Response [place] Obeys simple commands Best Verbal Response [place] None Nathan Coma Score 11 GALILEA Yes Left Pupil Description Regular Right Pupil Description Regular Left Pupil Reaction Brisk Right Pupil Reaction Brisk Pupil Size, Left 3 mm Pupil Size, Right 3 mm Strength All Extremities Weak Left Upper Extremity Sensation Intact Right Upper Extremity Sensation Intact Left Lower Extremity Sensation Intact Right Lower Extremity Sensation Intact CN V Facial Sensation Corneal reflex present CN VII Facial Expression and Symmetry Facial movement symmetrical CN IX, X Swallowing, Gag Reflex Gag reflex present Violence Risk Confused Yes Violence Risk Irritable No Violence Risk Boisterous No Violence Risk Verbal Threats No Violence Risk Physical Threats No Violence Risk Attacking Objects No Violence Risk Predictor Score 1 Violence Risk Intervention None Violence Risk Current Interventions None Affect/Behavior Calm, Impulsive Orientation Follows simple commands Soft limb holders (Cloth) Wrist, bilateral Restraint Technique: Non Violent Restraint Restraint Activity Type: Continue restraint, same episode Behavior Requiring Non Violent Restraint Attempts to remove medical management devices Type of Medical Devices: Monitoring equipment, Tubes/drains, IV/arterial access, Airway management equipment Rationale for Restraint: Attempting to remove devices, despite current restraints Range of Motion: Active range of motion Restraint Skin Assessment: Skin intact, Pulses intact Restraint Nutrition/Hydration: Tube feeding Restraint Hygiene/Elimination: Urinary catheter Other Standard Safety: Call device within reach, ID band check, Allergy Band on Bed Standard Safety: Bed alert on, Bed in low position Restraint DC Readiness Attempts: Diversional activities, Enhanced observation, Environmental changes Restraint DC Intervention Status: Intervention attempted, not successful Right lateral 16 [place] Chest Tube Activity: Assess Chest Tube Connectivity: Water-Seal gravity Chest Tube Water Seal Chamber Desc: Absence of Bubbling, No fluctuation Chest Tube Interventions: Clamps at bedside Chest Tube Drainage Description: Straw colored Chest Tube Dressing Condition: Clean, Dry, Intact Chest Tube Dressing: Occlusive dressing Positioning Repositioned right side Activity Status ADL Resting Beds/Devices low air loss bed Assistive Equipment elevated on pillows Activity Assistance Maximum assistance Sequential Compression Device right knee high applied/on Antiembolism Stocking On/Re-applied bilateral knee high Standard Safety Safety level maintained High Risk Safety Room check performed Special Call Device Unable to use call device Demonstrates Correct Call Light Use No Degrees Head of Bed Elevated 30 02/03/2024 18:50 EST Peripheral Pulse Rate 69 bpm Respiratory Rate 26 br/min HI Respirations Hyperpnea Breath Sounds Auscultated Anterior only All Lobes Breath Sounds Clear Patient Effort Good Patient Participation in Treatment Cooperative Aerosol Delivery Device Small volume nebulizer Aerosol Treatment Route Inline, T-Piece Cough and Deep Breathe Not done Spontaneous Cough No FiO2 60 % Peak Inspiratory Pressure 21 cmH20 Oxygen Saturation 100 % Respiratory Treatment Charge Two aerosol treatments Level of Consciousness Alert albuterol-ipratropium 3 mL mL budesonide 0.5 mg mg 02/03/2024 17:56 EST Heart Rate Monitored 68 bpm Oxygen Saturation 99 % 02/03/2024 17:51 EST Mechanical VTE Prophylaxis Education Not Done: See ICU flow (Not Done) Mechanical VTE Prophylaxis Education Not Done: See ICU flow (Not Done) Sequential Compression Device Not Done: See ICU flow (Not Done) Antiembolism Stockings Form Not Done (Not Done) Sequential Compression Device Form Not Done (Not Done) 02/03/2024 17:41 EST chlorhexidine topical 15 mL mL 02/03/2024 17:32 EST Heart Rate Monitored 68 bpm Respiratory Rate 24 br/min HI Systolic Blood Pressure Non-Invasive 108 mmHg Diastolic Blood Pressure Non-Invasive 48 mmHg <LLOW Mean Arterial Pressure (NBP) 66 mmHg Reason For Taking VItal Signs Routine Oral Care ICU Done Sedation Level 0 Alert and Calm Sedation Level Interventions Calm Primary Pain Intensity 3 Primary Pain Nonverbal Response Appears restful Pain Scale Type Behavioral pain scale Monitor Alarms On and Limits Checked Nail Bed Color [place] Capillary Refill < 2 seconds Heart Sounds ICU S1S2 Heart Rhythm Regular Radial Pulse, Left 2+ Normal Radial Pulse, Right 2+ Normal Generalized Edema Ratin+ mild/4mm Hand edema Bilateral Edema Ratin+ mild/4mm Cardiac Rhythm Sinus rhythm Monitoring Lead II, V1/MCL1 Alarms On and Functional Yes Respirations Unlabored Respiratory Pattern Regular Respiratory Pattern Detailed Vented Patient Airway Status Patent with support Breath Sounds Auscultated Anterior only All Lobes Breath Sounds Clear Cough Weak Ventilator Mode (A/C) Assist/Control Ventilation Ventilator Frequency, Mandatory 24 br/min Tidal Volume, Delivered 0.500 L Positive End Expiratory Pressure 5 cmH20 FiO2 60 % Vent FiO2 60 % Tidal Volume, Exhaled 0.511 L Resuscitation Bag Available Yes Vent Alarms On and Functional Yes Oxygen Therapy Ventilator Oxygen Saturation 98 % Tracheal Position Midline Cuffed endotracheal tube 8.0 02/03/2024 Endotracheal Tube Activity: Assessed Endotracheal Tube Placement: Oral, left (Modified) ET Tube Insertion cm [place] at Lip: 24 cm Endotracheal Tube Position Confirmation: Breath sounds Endotracheal Tube Status: Patent, Secure, manufactured tube alfredo Endotracheal Tube Care: Oral care Abdomen Description Rounded Abdomen Palpation Soft Bowel Continence No bowel movement Bowel Sounds All Quadrants Hypoactive Nasogastric (NG) Nostril, left Gastrointestinal Tube Activity: Assessed Enteral Tube Insertion cm [place] at Nare: 78 cm Gastrointestinal Tube Care: Oral care Gastrointestinal Tube Site Condition: No complications Tube Feeding Type: nepro Tube Feed Rate: 40 mL/hr Free Water: 500 mL GI Tube Placement Confirmation: Aspiration Urinary Elimination Urinary catheter draining Urine Color Yellow Urine Description Clear Perineum Intact Urinary Elimination Devices Indwelling catheter Urethral Indwelling/Continuous 16 Fr 01/21/2024 Urinary Catheter Activity: Assessed Urinary Catheter Site Condition: No complications Facial Movement Symmetric resting/crying All Extremity Description Normal for ethnicity Skin Temperature Warm Temperature All Extremities Warm Skin Description Normal for ethnicity Skin Integrity Not intact Skin Turgor Non-Elastic Mucous Membrane Color [place] Mucous Membrane Description Dry Skin Color General Usual for ethnicity Skin Moisture General Dry Abdomen Anterior Skin Abnormality Type: Surgical incision Incision, Wound Dressing/Activity: Assessed Wound Status: Unchanged Abdomen Left Lateral Wound Status: Unchanged Abdomen Right Multiple scattered Wound Status: Unchanged Continuous IV Infusions prn. Forearm Left 02/01/2024 20 gauge Peripheral IV Activity: Assessed Peripheral IV Site Condition: No complications Forearm Right 02/01/2024 18 gauge Peripheral IV Activity: Assessed Peripheral IV Site Condition: No complications Neurological Language Intubated or other physical barrier Neurological Symptoms Weakness Extremity Movement Equal Characteristics of Communication Unable to speak, due to vent Characteristics of Speech Unable to assess Facial Symmetry Symmetric Level of Consciousness Alert Eye Opening Response [place] Spontaneously Best Motor Response [place] Obeys simple commands Best Verbal Response Nathan None [place] Coma Score 11 GALILEA Yes Strength All Extremities Weak CN V Facial Sensation Corneal reflex present CN VII Facial Expression and Symmetry Facial movement symmetrical CN IX, X Swallowing, Gag Reflex Gag reflex present Affect/Behavior Calm, Impulsive Orientation Follows simple commands Soft limb holders (Cloth) Wrist, bilateral Restraint Technique: Non Violent Restraint Restraint Activity Type: Continue restraint, same episode Behavior Requiring Non Violent Restraint Attempts to remove medical management devices Type of Medical Devices: Monitoring equipment, Tubes/drains, IV/arterial access, Airway management equipment Rationale for Restraint: Attempting to remove devices, despite current restraints Range of Motion: Repositioned Restraint Skin Assessment: Skin intact, Pulses intact Restraint Nutrition/Hydration: Tube feeding Restraint Hygiene/Elimination: Urinary catheter Other Standard Safety: Call device within reach, ID band check, Allergy Band on Bed Standard Safety: Bed alert on, Bed in low position Restraint DC Readiness Attempts: Diversional activities, Enhanced observation, Environmental changes Restraint DC Intervention Status: Intervention attempted, not successful Right lateral 16 Micronesian Chest Tube Activity: Assess Chest Tube Connectivity: Water-Seal gravity Chest Tube Water Seal Chamber Desc: Absence of Bubbling, No fluctuation Positioning Repositioned back Activity Status ADL Resting Beds/Devices low air loss bed Assistive Equipment elevated on pillows Activity Assistance Maximum assistance Sequential Compression Device right knee high applied/on Antiembolism Stocking On/Re-applied bilateral knee high Standard Safety Safety level maintained High Risk Safety Room check performed Special Call Device Unable to use call device Demonstrates Correct Call Light Use No Degrees Head of Bed Elevated 30 02/03/2024 16:01 EST Apical Heart Rate 69 bpm Heart Rate Monitored 71 bpm Systolic Blood Pressure Non-Invasive 116 mmHg Diastolic Blood Pressure Non-Invasive 63 mmHg Mean Arterial Pressure (NBP) 75 mmHg Oxygen Saturation 99 % metoprolol 25 mg mg ocular lubricant 1 mendy mendy ocular lubricant 1 drop(s) drop(s) 02/03/2024 15:54 EST Patient Airway Status Patent with support Ventilator Mode (A/C) Assist/Control Ventilation Breath Type VC (Volume Control) Ventilator Frequency, Mandatory 24 br/min Tidal Volume, Delivered 0.500 L Positive End Expiratory Pressure 5 cmH20 FiO2 60 % Flow Trigger (range 0.3 - 15 L/min.) 2.0 L/min Inspiratory Time (TI) 0.70 second(s) Tube Compensation Off Auto Flow On Ventilator Model Drager [id number] Ventilator ID 6 Vent FiO2 60 % Respiratory Rate Total 25 br/min HI Minute Volume 11.4 L/min Respiratory Rate, Spontaneous 1 br/min Inspiratory to Expiratory (I:E) Ratio 1:2 Tidal Volume, Exhaled 0.515 L Peak Inspiratory Pressure 22 cmH20 Plateau Pressure 15 cmH20 Mean Airway Pressure 10 Resuscitation Bag Available Yes Mask, Obturator, Syringe at bedside Yes Vent Alarms On and Functional Yes Vent Alarm High Pressure 45 cmH20 High Tidal Volume 0.00 Vent Alarm High Rate 40 br/min Vent Alarm Low Minute Volume 4 L/min Vent Alarm High Minute Volume 23 L/min HME (Heat & Moisture Exchanger) On Cuffed endotracheal tube 8 01/21/2024 Endotracheal Tube Activity: Assessed Endotracheal Tube Placement: Oral, left ET Tube Insertion cm [place] at Lip: 24 cm Endotracheal Tube Position Confirmation: Breath sounds Endotracheal Tube Cuff Pressure: 30 cm/H2O Endotracheal Tube Cuff Pressure Method: Measured Endotracheal Tube Status: Patent, Secure, manufactured tube alfredo Endotracheal Tube Care: Repositioned 02/03/2024 15:53 EST insulin isophane 20 unit(s) unit(s) 02/03/2024 15:45 EST Blood Glucose, Capillary 141 mg/dL HI Blood Glucose Testing Reason Routine Blood Glucose Interventions Administered agent to decrease blood sugar Temperature Oral 36.6 DegC Heart Rate Monitored 71 bpm Respiratory Rate 24 br/min HI Systolic Blood Pressure Non-Invasive 121 mmHg Diastolic Blood Pressure Non-Invasive 54 mmHg LOW Mean Arterial Pressure (NBP) 71 mmHg Reason For Taking VItal Signs Routine Oral Care ICU Done Eye Care Done Sedation Level -1 Drowsy Sedation Level Interventions Calm Primary Pain Intensity 3 Primary Pain Nonverbal Response Appears restful Pain Scale Type Behavioral pain scale Monitor Alarms On and Limits Checked Nail Bed Color [place] Capillary Refill < 2 seconds Heart Sounds ICU S1S2 Heart Rhythm Regular Dorsalis Pedis Pulse, Left 1+ Thready Dorsalis Pedis Pulse, Right 1+ Thready Posttibial Pulse, Left 1+ Thready Posttibial Pulse, Right 1+ Thready Radial Pulse, Left 2+ Normal Radial Pulse, Right 2+ Normal Generalized Edema Ratin+ mild/4mm Hand edema Bilateral Edema Ratin+ mild/4mm Cardiac Rhythm Sinus rhythm Monitoring Lead II, V1/MCL1 Alarms On and Functional Yes Heart Rate Alarm Set At - Low 50 Heart Rate Alarm Set At - High 120 NSBP Alarm Low 90 NSBP Alarm High 160 HI Respirations Unlabored Respiratory Pattern Regular Respiratory Pattern Detailed Vented Breath Sounds Auscultated Anterior only All Lobes Breath Sounds Clear Suction Method Oral Suction Device Yankauer Sputum Amount Scant Sputum Color Cream Sputum Consistency Frothy Ventilator Mode (A/C) Assist/Control Ventilation Ventilator Frequency, Mandatory 24 br/min Tidal Volume, Delivered 0.500 L Positive End Expiratory Pressure 5 cmH20 FiO2 75 % Vent FiO2 75 % Tidal Volume, Exhaled 0.517 L Resuscitation Bag Available Yes Vent Alarms On and Functional Yes Oxygen Therapy Ventilator Oxygen Saturation 100 % Tracheal Position Midline Cuffed endotracheal tube 8.0 02/03/2024 Endotracheal Tube Activity: Assessed Endotracheal Tube Placement: Oral, mid ET Tube Insertion cm [place] at Lip: 24 cm Endotracheal Tube Position Confirmation: Breath sounds Endotracheal Tube Status: Patent, Secure, manufactured tube alfredo Endotracheal Tube Care: Oral care Abdomen Description Rounded Abdomen Palpation Soft Bowel Continence No bowel movement Bowel Sounds All Quadrants Hypoactive Nasogastric (NG) Nostril, left Gastrointestinal Tube Activity: Assessed, Tube feeding Enteral Tube Insertion cm [place] at Nare: 78 cm Gastrointestinal Tube Care: Oral care Gastrointestinal Tube Site Condition: No complications Tube Feeding Type: nepro Tube Feed Rate: 40 mL/hr Enteral Tube Flush: 30 mL Residual Amount: 10 mL GI Tube Placement Confirmation: Aspiration Urinary Elimination Urinary catheter draining Urinary Elimination Devices Indwelling catheter Urethral Indwelling/Continuous 16 Fr 01/21/2024 Urinary Catheter Activity: Assessed Urinary Catheter Secured: Securement device on Urinary Catheter Drainage System: Dependent drainage bag Urinary Catheter Site Condition: No complications Facial Movement Symmetric resting/crying All Extremity Description Normal for ethnicity Skin Temperature Warm Temperature All Extremities Warm Skin Description Normal for ethnicity Skin Integrity Not intact Skin Turgor Non-Elastic Mucous Membrane Color [place] Mucous Membrane Description Dry Skin Color General Usual for ethnicity Skin Moisture General Dry Abdomen Anterior Skin Abnormality Type: Surgical incision Incision, Wound Dressing/Activity: Assessed Incision, Wound Dressing Assessment: Clean, Dry, Intact Incision, Wound Dressing: Vacuum assisted closure Wound Drainage Device: Negative pressure wound system Negative Pressure Wound SettinmmHg Neg Pressure Wound Therapy Dressing: Black Sponge Incision, Wound Surrounding Tissue: Erythema Wound Status: No complications Abdomen Left Lateral Incision, Wound Dressing/Activity: Assessed Incision, Wound Dressing Assessment: Dry, Intact Wound Status: No complications Abdomen Right Multiple scattered Incision, Wound Dressing/Activity: Assessed Incision, Wound Dressing Assessment: Dry, Intact Wound Status: No complications Continuous IV Infusions prn. Forearm Left 02/01/2024 20 gauge Peripheral IV Activity: Assessed Peripheral IV Dressing Condition: Clean, Dry, Intact Peripheral IV Dressing Activity: Transparent dressing Peripheral IV Line Status/Patency: Flushes easily Peripheral IV Site Condition: No complications Peripheral IV Equipment: PRN Adaptor Forearm Right 02/01/2024 18 gauge Peripheral IV Activity: Assessed Peripheral IV Dressing Condition: Clean, Dry, Intact Peripheral IV Dressing Activity: Transparent dressing Peripheral IV Line Status/Patency: Flushes easily Peripheral IV Site Condition: No complications Peripheral IV Equipment: PRN Adaptor Neurological Language Follows simple commands, Intubated or other physical barrier Neurological Symptoms Weakness Extremity Movement Equal Characteristics of Communication Unable to speak, due to vent Characteristics of Speech Unable to assess Facial Symmetry Symmetric Level of Consciousness Alert Eye Opening Response [place] Spontaneously Best Motor Response Nathan Localizes to noxious stimuli Best Verbal Response Nathan None [place] Coma Score 10 GALILEA Yes Left Pupil Description Regular Right Pupil Description Regular Left Pupil Reaction Brisk Right Pupil Reaction Brisk Pupil Size, Left 3 mm Pupil Size, Right 3 mm Strength All Extremities Weak Left Upper Extremity Sensation Intact Right Upper Extremity Sensation Intact Left Lower Extremity Sensation Intact Right Lower Extremity Sensation Intact CN V Facial Sensation Corneal reflex present CN VII Facial Expression and Symmetry Facial movement symmetrical CN IX, X Swallowing, Gag Reflex Gag reflex present Affect/Behavior Calm, Impulsive Orientation Follows simple commands Soft limb holders (Cloth) Wrist, bilateral Restraint Technique: Non Violent Restraint Restraint Activity Type: Continue restraint, same episode Behavior Requiring Non Violent Restraint Attempts to remove medical management devices Type of Medical Devices: Monitoring equipment, Tubes/drains, IV/arterial access Rationale for Restraint: Attempting to remove devices, despite current restraints Range of Motion: Active range of motion Restraint Skin Assessment: Skin intact, Pulses intact Restraint Nutrition/Hydration: Tube feeding Restraint Hygiene/Elimination: Urinary catheter Other Standard Safety: Call device within reach, ID band check, Allergy Band on Bed Standard Safety: Bed alert on, Bed in low position Restraint DC Readiness Attempts: Diversional activities, Enhanced observation, Environmental changes Restraint DC Intervention Status: Intervention attempted, not successful Right lateral 16 [place] Chest Tube Activity: Assess Chest Tube Connectivity: Water-Seal gravity Chest Tube Water Seal Chamber Desc: Absence of Bubbling, No fluctuation Chest Tube Interventions: Clamps at bedside Chest Tube Drainage Description: Straw colored Chest Tube Dressing Condition: Clean, Dry, Intact Chest Tube Dressing: Occlusive dressing Positioning Repositioned left side Activity Status ADL Resting Beds/Devices low air loss bed Assistive Equipment elevated on pillows Activity Assistance Maximum assistance Sequential Compression Device right knee high applied/on Standard Safety Safety level maintained High Risk Safety Room check performed Special Call Device Unable to use call device Demonstrates Correct Call Light Use No Degrees Head of Bed Elevated 30 02/03/2024 15:07 EST Bedside Swallowing Screen Results Not Done: See ICU flow (Not Done) CAM Mental Status Change & Fluctuation Not Done: See ICU flow (Not Done) CAM Mental Status Change & Fluctuation Not Done: See ICU flow (Not Done) CAM Mental Status Change & Fluctuation Not Done: See ICU flow (Not Done) CAM Inattention Not Done: See ICU flow (Not Done) CAM Inattention Not Done: See ICU flow (Not Done) CAM Inattention Not Done: See ICU flow (Not Done) CAM Disorganized Thinking Not Done: See ICU flow (Not Done) CAM Disorganized Thinking Not Done: See ICU flow (Not Done) CAM Disorganized Thinking Not Done: See ICU flow (Not Done) CAM Altered Level of Consciousness Not Done: See ICU flow (Not Done) CAM Altered Level of Consciousness Not Done: See ICU flow (Not Done) CAM Altered Level of Consciousness Not Done: See ICU flow (Not Done) Confusion Assessment Method Score Not Done: See ICU flow (Not Done) Confusion Assessment Method Score Not Done: See ICU flow (Not Done) Confusion Assessment Method Score Not Done: See ICU flow (Not Done) Mechanical VTE Prophylaxis Education Not Done: See ICU flow (Not Done) Mechanical VTE Prophylaxis Education Not Done: See ICU flow (Not Done) Mechanical VTE Prophylaxis Education Not Done: See ICU flow (Not Done) Mechanical VTE Prophylaxis Education Not Done: See ICU flow (Not Done) Mechanical VTE Prophylaxis Education Not Done: See ICU flow (Not Done) Mechanical VTE Prophylaxis Education Not Done: See ICU flow (Not Done) Sequential Compression Device Not Done: See ICU flow (Not Done) Sequential Compression Device Not Done: See ICU flow (Not Done) Sequential Compression Device Not Done: See ICU flow (Not Done) Antiembolism Stockings Form Not Done (Not Done) Antiembolism Stockings Form Not Done (Not Done) Antiembolism Stockings Form Not Done (Not Done) Bedside Swallowing Screen Form Not Done (Not Done) Sequential Compression Device Form Not Done (Not Done) Sequential Compression Device Form Not Done (Not Done) Sequential Compression Device Form Not Done (Not Done) 02/03/2024 15:00 EST Stool Description Smear Urethral Indwelling/Continuous 16 Fr 01/21/2024 Urinary Catheter Output: 600 mL Right lateral 16 [place] Chest Tube Output: 30 mL Tube Feeding Intake 326 mL Oral Intake 0 mL Stool Count 1 EA 02/03/2024 14:59 EST norepinephrine 0.627814 mg mg NS Premix Diluent 2.5323 mL mL 02/03/2024 14:59 EST Dextrose 5% in Water 400 mL mL 02/03/2024 14:30 EST chlorhexidine topical 15 mL mL heparin 5,000 unit(s) unit(s) 02/03/2024 14:24 EST Pain Scale Assessment Behavioral pain scale Primary Pain Location Generalized Primary Pain Intensity 3 Reason for PRN medication Pain management PRN medication effectiveness Yes Suction Method Oral Suction Device Yankauer Sputum Amount Large Sputum Color Clear, White Sputum Consistency Frothy PRN Medication Effectiveness Evaluation PRN Medication Effectiveness Evaluation 02/03/2024 14:23 EST Heart Rate Monitored 73 bpm Respiratory Rate 26 br/min HI Systolic Blood Pressure Non-Invasive 117 mmHg Diastolic Blood Pressure Non-Invasive 53 mmHg LOW Mean Arterial Pressure (NBP) 70 mmHg Reason For Taking VItal Signs Routine Oral Care ICU Done Eye Care Done Sedation Level -1 Drowsy Sedation Level Interventions Calm Primary Pain Location Generalized Primary Pain Intensity 3 Primary Pain Non-Pharma Intervention Rest, Repositioning Primary Pain Nonverbal Response Appears restful Pain Scale Type Behavioral pain scale Monitor Alarms On and Limits Checked Heart Sounds ICU S1S2 Heart Rhythm Regular Radial Pulse, Left 2+ Normal Radial Pulse, Right 2+ Normal Generalized Edema Ratin+ moderate/6mm Hand edema Bilateral Edema Ratin+ mild/4mm Cardiac Rhythm Sinus rhythm Monitoring Lead II, V1/MCL1 Alarms On and Functional Yes Respirations Unlabored Breath Sounds Auscultated Anterior only All Lobes Breath Sounds Coarse crackles Suction Method Endotracheal Cough Weak Suction Device Inline suctioning Sputum Amount Small Sputum Color Cream Sputum Consistency Thick Ventilator Mode (A/C) Assist/Control Ventilation Ventilator Frequency, Mandatory 24 br/min Tidal Volume, Delivered 0.500 L Positive End Expiratory Pressure 5 cmH20 FiO2 75 % Vent FiO2 75 % Tidal Volume, Exhaled 0.532 L Resuscitation Bag Available Yes Vent Alarms On and Functional Yes Oxygen Therapy Ventilator Oxygen Saturation 99 % Cuffed endotracheal tube 8 01/21/2024 Endotracheal Tube Activity: Assessed Endotracheal Tube Placement: Oral, mid ET Tube Insertion cm [place] at Lip: 24 cm Endotracheal Tube Position Confirmation: Breath sounds Endotracheal Tube Status: Patent, Secure, manufactured tube alfredo Endotracheal Tube Care: Oral care Abdomen Description Distended Abdomen Palpation Soft Stool Color Brown Stool Description Liquid Bowel Continence No bowel movement Bowel Sounds All Quadrants Hypoactive Nasogastric (NG) Nostril, left Gastrointestinal Tube Activity: Assessed, Tube feeding Enteral Tube Insertion cm [place] at Nare: 78 cm Gastrointestinal Tube Care: Oral care Gastrointestinal Tube Site Condition: No complications Tube Feeding Type: nepro Tube Feed Rate: 40 mL/hr Enteral Tube Flush: In Error mL (In Error) Residual Amount: In Error mL (In Error) Urinary Elimination Urinary catheter draining Urine Color Yellow Urine Description Clear Perineum Intact Urinary Elimination Devices Indwelling catheter Urethral Indwelling/Continuous 16 Fr 01/21/2024 Urinary Catheter Activity: Assessed Urinary Catheter Site Condition: No complications Urinary Catheter Output: 750 mL Urinary Catheter Care Completed: Yes Skin Symptoms Bruising Skin Integrity Not intact Skin Turgor Non-Elastic Skin Moisture General Dry Abdomen Anterior Wound Status: Unchanged Abdomen Left Lateral Wound Status: Unchanged Abdomen Right Multiple scattered Wound Status: Unchanged [place] # 3 Abdomen Right Surgical Drain, Tube Activity: Assessed Surgical Drain, Tube Care: [place] collapsed Surgical Drain Site Condition: No complications Continuous IV Infusions prn Forearm Left 02/01/2024 20 gauge Peripheral IV Activity: Assessed Peripheral IV Site Condition: No complications Peripheral IV Equipment: IV Pump Forearm Right 02/01/2024 18 gauge Peripheral IV Activity: Assessed Peripheral IV Site Condition: No complications Peripheral IV Equipment: PRN Adaptor Neurological Symptoms Weakness Characteristics of Communication Unable to speak, due to vent Facial Symmetry Symmetric Level of Consciousness Alert [place] Yes Strength All Extremities Weak Affect/Behavior Appropriate Orientation Oriented x 4 Soft limb holders (Cloth) Wrist, bilateral Restraint Technique: Non Violent Restraint Restraint Activity Type: Continue restraint, same episode Behavior Requiring Non Violent Restraint Attempts to remove medical management devices Type of Medical Devices: Monitoring equipment, Tubes/drains, IV/arterial access, Airway management equipment Rationale for Restraint: Attempting to remove devices, despite current restraints Range of Motion: Repositioned Restraint Skin Assessment: Skin intact, Pulses intact Restraint Nutrition/Hydration: Tube feeding Restraint Hygiene/Elimination: Urinary catheter Other Standard Safety: ID band check Bed Standard Safety: Bed in low position, Upper/Half-length side rails up, Wheels locked, HOB elevated Restraint DC Readiness Attempts: Enhanced observation, Environmental changes, Pain management, Postitioning/Turning, Reality orientation Restraint DC Intervention Status: Intervention attempted, not successful Right lateral 16 [place]ron[place] Chest Tube Output: 60 mL Positioning Repositioned right side Activity Status ADL Resting Beds/Devices low air loss bed Assistive Equipment boot(s) on Activity Assistance Maximum assistance Sequential Compression Device right knee high applied/on Antiembolism Stocking On/Re-applied bilateral knee high Oral Care Oral care protocol Skin Care Preventative Intervention(s) heel(s)s elevated Standard Safety Safety level maintained High Risk Safety Room check performed Special Call Device Unable to use call device Demonstrates Correct Call Light Use No Degrees Head of Bed Elevated 30 Stool Count 1 EA 02/03/2024 13:51 EST Skin Team Progress Note Skin Team Consult Note 02/03/2024 13:51 EST Physical Appearance Other: Intubated, sedated, hemodynamic instability Tube Feeding Formula Nepro Tube Feeding Route Orogastric tube Current Rate TF 40 mL/hr Current TF kcal 1,700 Kcal Current TF Protein 78 Gram(s) Current TF Free Water 700 mL Goal Rate TF 50 mL/hr Goal TF kcal 2,125 Kcal Goal TF Protein 97 Gram(s) Goal TF Free Water 876 mL Enteral Feeding Comments Enteral Feeding Comments Parenteral Nutrition Route Central venous catheter TPN/PPN Amino Acids 6 TPN/PPN Dextrose 10 TPN/PPN Lipids 3 Current Rate TPN/PPN 80 mL/hr Current TPN/PPN kcal 169 Kcal Current TPN/PPN Protein 115 Gram(s) Goal Rate TPN/PPN 80 mL/hr Nutrition Plan of Care Dietitian follow up/monitor, Participate in team conference Top Lift Compressor Recommendations Tube feeding, Other: TPN is weaned off. After tracheostomy placement, recommend increase nepro to goal rate of 50mL/hr Nutrition Follow-Up Needed Yes Days until Top Lift Compressor Follow Up Three days Adult Nutrition Reassessment/Plan Form Adult Nutrition Reassessment/Plan Form Adult Nutrition Reassessment/Plan Adult Nutrition Follow-up 02/03/2024 13:49 EST Admission From Other: [facility] Current Skin/Wound Interventions Hospital bed, Low air loss mattress, Bariatric bed, Turn and position system, Turn and reposition every 2 hours Recommended Skin/Wound Interventions Low air loss mattress, Bariatric bed, Seat cushion, Turn and position system, Turn and reposition every 2 hours, Consult Dietitian, Proposed orders sent to physician, Other: Wound vac applied & recommended orders, skin team to change MWF Present For Wound Observation Nurse 02/03/2024 13:42 EST Individuals Taught Patient Learning Readiness critical condition Barriers to Learning Acuity of illness Teaching Method Explanation Incision/Wound Education Dressing changes, Wound care Skin/Wound Teaching Evaluation Needs further teaching, Needs practice/supervision, Needs reinforcement, Verbalizes/Nonverbally indicates understanding 02/03/2024 13:39 EST Abdomen Anterior Skin Abnormality Type: Surgical incision Skin Abnormality Pattern: Depressed Skin Abnormality Color: Brown, Red, White, Yellow Incision, Wound Length: 23 cm Incision, Wound Width: 13 cm Incision, Wound Depth: 3.8 cm Incision, Wound Dressing/Activity: Changed Incision, Wound Dressing: Vacuum assisted closure Wound Drainage Device: Negative pressure wound system Negative Pressure Wound SettinmmHg Neg Pressure Wound Therapy Dressing: Black Sponge Black Sponge # Applied: 4 Wound Edge: Unattached to wound bed Incision, Wound Cleansing: Cleaned with normal saline Wound Bed Tissue Type: Granulation, Necrotic tissue, slough, Other: Fascia 20% Wound Percent Granulated: 50 % Wound Percent Necrotic Tissue Slough: 30 % Wound Exudate Amount: Moderate Wound Exudate Type: Seropurulent Wound Exudate Odor: None Incision, Wound Surrounding Tissue: Normal, Denuded, Edematous, Induration Wound Associated Pain: With dressing change Abdomen Left Lateral Skin Abnormality Type: Non-pressure ulcer Skin Abnormality Pattern: Scattered Skin Abnormality Color: Red, Yellow Incision, Wound Dressing/Activity: Dressing applied Incision, Wound Dressing: Hydrocolloid (Duoderm), Silver Impregnated Dressing (Aquacel Ag) Incision, Wound Cleansing: Cleaned with normal saline Wound Bed Tissue Type: Granulation, Epithelialization, Necrotic tissue, slough Wound Exudate Amount: Moderate Wound Exudate Type: Serous Wound Exudate Odor: None Incision, Wound Surrounding Tissue: Erythema, Edematous, Induration Abdomen Right Multiple scattered Incision, Wound Dressing/Activity: Assessed Incision, Wound Dressing Assessment: Loose Incision, Wound Dressing: ABD dressing pad 02/03/2024 13:24 EST Primary Pain Intensity 8 acetaminophen-hydrocodone 2 tab(s) tab(s) 02/03/2024 12:30 EST Soft limb holders (Cloth) Wrist, bilateral Restraint Technique: Non Violent Restraint Restraint Activity Type: Continue restraint, same episode Behavior Requiring Non Violent Restraint Attempts to remove medical management devices Type of Medical Devices: Monitoring equipment, Tubes/drains, IV/arterial access, Airway management equipment Rationale for Restraint: Attempting to remove devices, despite current restraints Range of Motion: Repositioned Restraint Skin Assessment: Skin intact, Pulses intact Restraint Nutrition/Hydration: Tube feeding Restraint Hygiene/Elimination: Urinary catheter Other Standard Safety: ID band check Bed Standard Safety: Bed in low position, Upper/Half-length side rails up, Wheels locked, HOB elevated Restraint DC Readiness Attempts: Enhanced observation, Environmental changes, Pain management, Postitioning/Turning, Reality orientation Restraint DC Intervention Status: Intervention attempted, not successful 02/03/2024 12:00 EST Heart Rate Monitored 76 bpm Systolic Blood Pressure Non-Invasive 130 mmHg Diastolic Blood Pressure Non-Invasive 54 mmHg LOW Mean Arterial Pressure (NBP) 76 mmHg Oxygen Saturation 97 % 02/03/2024 11:55 EST Nasogastric (NG) Nostril, left Gastrointestinal Tube Activity: Assessed, Tube feeding Enteral Tube Insertion cm Salvador at Nare: 78 cm Gastrointestinal Tube Care: Oral care Gastrointestinal Tube Site Condition: No complications Tube Feeding Type: nepro Tube Feed Rate: 40 mL/hr Residual Amount: 90 mL Free Water: 500 mL 02/03/2024 11:40 EST FiO2 75 % Vent FiO2 75 % 02/03/2024 11:39 EST Peripheral Pulse Rate 74 bpm Respiratory Rate 22 br/min HI Systolic Blood Pressure Non-Invasive 143 mmHg HI Diastolic Blood Pressure Non-Invasive 77 mmHg Respirations Unlabored Breath Sounds Auscultated Anterior only All Lobes Breath Sounds Coarse crackles, Diminished Aerosol Delivery Device Small volume nebulizer Aerosol Treatment Route Inline Cough and Deep Breathe Done Spontaneous Cough Yes Cough Productive Sputum Amount Scant Sputum Color Clear Sputum Consistency Thin Oxygen Saturation 99 % Respiratory Treatment Charge Aerosol treatment Level of Consciousness Alert 02/03/2024 11:35 EST albuterol-ipratropium 3 mL mL 02/03/2024 11:33 EST pH 7.370 LOW pCO2 43.4 mm Hg pO2 151.0 mm Hg HI HCO3 24.5 mmol/L CO2 Totl 25.9 mmol/L Base Excess -0.8 mmol/L NA O2 Sat 99.0 % HI Ventilator Mode (A/C) Assist/Control Ventilation Ventilator Frequency, Mandatory 24 br/min Tidal Volume, Delivered 0.500 L Positive End Expiratory Pressure 5 cmH20 FiO2 100 % Oxygen Therapy Ventilator Blood Gas Drawn From Right Radial Artery Site Held by RT Anant Test Positive 02/03/2024 11:30 EST Heart Rate Monitored 77 bpm Systolic Blood Pressure Non-Invasive 143 mmHg HI Diastolic Blood Pressure Non-Invasive 77 mmHg Mean Arterial Pressure (NBP) 93 mmHg Oxygen Saturation 99 % 02/03/2024 11:15 EST Heart Rate Monitored 71 bpm Systolic Blood Pressure Non-Invasive 139 mmHg Diastolic Blood Pressure Non-Invasive 53 mmHg LOW Mean Arterial Pressure (NBP) 73 mmHg Oxygen Saturation 100 % 02/03/2024 11:05 EST Blood Glucose, Capillary 135 mg/dL HI Blood Glucose Testing Reason Routine Temperature Oral 37.1 DegC Heart Rate Monitored 67 bpm Respiratory Rate 24 br/min HI Systolic Blood Pressure Non-Invasive 138 mmHg Diastolic Blood Pressure Non-Invasive 53 mmHg LOW Mean Arterial Pressure (NBP) 72 mmHg Reason For Taking VItal Signs Routine Oral Care ICU Done Eye Care Done Sedation Level -1 Drowsy Sedation Level Interventions Calm Primary Pain Location Generalized Primary Pain Intensity 3 Primary Pain Non-Pharma Intervention Rest, Repositioning Primary Pain Nonverbal Response Appears restful Pain Scale Type Behavioral pain scale Monitor Alarms On and Limits Checked Cardiovascular Symptoms Edema Nail Bed Color [place] Capillary Refill < 2 seconds Heart Sounds ICU S1S2 Heart Rhythm Regular Dorsalis Pedis Pulse, Left 1+ Thready Dorsalis Pedis Pulse, Right 1+ Thready Posttibial Pulse, Left 1+ Thready, Doppler Posttibial Pulse, Right 1+ Thready Radial Pulse, Left 2+ Normal Radial Pulse, Right 2+ Normal Generalized Edema Ratin+ moderate/6mm Hand edema Bilateral Edema Ratin+ mild/4mm Cardiac Rhythm Sinus rhythm Monitoring Lead II, V1/MCL1 Alarms On and Functional Yes Heart Rate Alarm Set At - Low 50 Heart Rate Alarm Set At - High 120 NSBP Alarm Low 90 NSBP Alarm High 160 HI Respirations Unlabored Patient Airway Status Patent with support Breath Sounds Auscultated Anterior only All Lobes Breath Sounds Coarse crackles Suction Method Endotracheal Cough Weak Suction Device Inline suctioning Sputum Amount Large Sputum Color Cream Sputum Consistency Thick Ventilator Mode (A/C) Assist/Control Ventilation Ventilator Frequency, Mandatory 24 br/min Tidal Volume, Delivered 0.500 L Positive End Expiratory Pressure 5 cmH20 FiO2 100 % Vent FiO2 100 % Tidal Volume, Exhaled 0.579 L Resuscitation Bag Available Yes Vent Alarms On and Functional Yes Oxygen Therapy Ventilator Oxygen Saturation 100 % Cuffed endotracheal tube 8 01/21/2024 Endotracheal Tube Activity: Assessed Endotracheal Tube Placement: Oral, mid ET Tube Insertion cm [place] at Lip: 24 cm Endotracheal Tube Position Confirmation: Breath sounds Endotracheal Tube Status: Patent, Secure, manufactured tube alfredo Endotracheal Tube Care: Oral care Abdomen Description Distended Abdomen Palpation Soft Bowel Continence No bowel movement Bowel Sounds All Quadrants Hypoactive Urinary Elimination Urinary catheter draining Urine Color Yellow Urine Description Clear Perineum Intact Urinary Elimination Devices Indwelling catheter Urethral Indwelling/Continuous 16 Fr 01/21/2024 Urinary Catheter Indication: Order for Strict I&O Urinary Catheter Activity: Assessed Urinary Catheter Secured: Securement device on Urinary Catheter Drainage System: Dependent drainage bag Urinary Catheter Site Condition: No complications Facial Movement Makes facial grimaces Skin Symptoms Bruising Bilateral Upper Extremity Description Normal for ethnicity Bilateral Lower Extremity Description Normal for ethnicity Skin Temperature Warm Skin Description Normal for ethnicity Skin Integrity Not intact Skin Turgor Non-Elastic Mucous Membrane Color [place] Mucous Membrane Description Moist Skin Color General Usual for ethnicity Skin Moisture General Dry Abdomen Anterior Wound Status: Unchanged Abdomen Left Lateral Wound Status: Unchanged Abdomen Right Multiple scattered Wound Status: Unchanged Continuous IV Infusions prn Forearm Left 02/01/2024 20 gauge Peripheral IV Activity: Assessed Peripheral IV Dressing Condition: Clean, Dry, Intact Peripheral IV Dressing Activity: Transparent dressing Peripheral IV Line Status/Patency: Flushes easily, Continuous infusion, Good blood return Peripheral IV Site Condition: No complications Peripheral IV Equipment: IV Pump Forearm Right 02/01/2024 18 gauge Peripheral IV Activity: Assessed Peripheral IV Dressing Condition: Clean, Dry, Intact Peripheral IV Dressing Activity: Transparent dressing Peripheral IV Line Status/Patency: Flushes easily Peripheral IV Site Condition: No complications Peripheral IV Equipment: PRN Adaptor Neurological Language Intubated or other physical barrier Neurological Symptoms Weakness Gait Unable to assess Extremity Movement Equal Characteristics of Communication Unable to speak, due to vent Characteristics of Speech Unable to assess Facial Symmetry Symmetric Level of Consciousness Alert Eye Opening Response [place] Spontaneously Best Motor Response Nathan Obeys simple commands Best Verbal Response [place] None Nathan Coma Score 11 GALILEA Yes Left Pupil Description Regular Right Pupil Description Regular Left Pupil Reaction Brisk Right Pupil Reaction Brisk Pupil Size, Left 3 mm Pupil Size, Right 3 mm Strength All Extremities Weak Left Upper Extremity Sensation Intact Right Upper Extremity Sensation Intact Left Lower Extremity Sensation Intact Right Lower Extremity Sensation Intact CN V Facial Sensation Corneal reflex present CN VII Facial Expression and Symmetry Wrinkles forehead CN IX, X Swallowing, Gag Reflex Gag reflex present Affect/Behavior Calm, Impulsive Orientation Follows simple commands Soft limb holders (Cloth) Wrist, bilateral Restraint Technique: Non Violent Restraint Restraint Activity Type: Continue restraint, same episode Behavior Requiring Non Violent Restraint Attempts to remove medical management devices Type of Medical Devices: Monitoring equipment, Tubes/drains, IV/arterial access, Airway management equipment Rationale for Restraint: Attempting to remove devices, despite current restraints Range of Motion: Repositioned Restraint Skin Assessment: Skin intact, Pulses intact Restraint Nutrition/Hydration: Tube feeding Restraint Hygiene/Elimination: Urinary catheter Other Standard Safety: ID band check Bed Standard Safety: Bed in low position, Upper/Half-length side rails up, Wheels locked, HOB elevated Restraint DC Readiness Attempts: Enhanced observation, Environmental changes, Pain management, Postitioning/Turning, Reality orientation Restraint DC Intervention Status: Intervention attempted, not successful Right lateral 16 Micronesian Chest Tube Activity: Assess Chest Tube Connectivity: Water-Seal gravity Chest Tube Water Seal Chamber Desc: Absence of Bubbling Chest Tube Interventions: Clamps at bedside Chest Tube Drainage Description: Straw colored Chest Tube Dressing Condition: Clean, Dry, Intact Chest Tube Dressing: Occlusive dressing Positioning Repositioned back Activity Status ADL Resting Beds/Devices low air loss bed Assistive Equipment boot(s) on Activity Assistance Maximum assistance Sequential Compression Device right knee high applied/on Antiembolism Stocking On/Re-applied bilateral knee high Oral Care Oral care protocol Skin Care Preventative Intervention(s) heel(s)s elevated Standard Safety Safety level maintained High Risk Safety Room check performed Special Call Device Unable to use call device Demonstrates Correct Call Light Use No norepinephrine mcg/min mg norepinephrine mcg/min mg NS Premix Diluent NS Premix Diluent mL NS Premix Diluent NS Premix Diluent mL Degrees Head of Bed Elevated 30 02/03/2024 11:04 EST ocular lubricant 1 mendy mendy 02/03/2024 11:03 EST chlorhexidine topical 15 mL mL ocular lubricant 1 drop(s) drop(s) 02/03/2024 10:58 EST Heart Rate Monitored 66 bpm Systolic Blood Pressure Non-Invasive 137 mmHg Diastolic Blood Pressure Non-Invasive 54 mmHg LOW Mean Arterial Pressure (NBP) 75 mmHg Reason For Taking VItal Signs In Error (In Error) Oxygen Saturation 100 % norepinephrine 2 mcg/min mg NS Premix Diluent NS Premix Diluent mL 02/03/2024 10:52 EST Worker's Comp Patient No OT Attempts OT Attempts OT Update Discharge Recommendation No OT Initiate/Continue Treatment Yes Occupational Therapy Daily Note Form Occupational Therapy Daily Note Form Occupational Therapy Progress Note OT Daily Note 02/03/2024 10:51 EST Heart Rate Monitored 68 bpm Systolic Blood Pressure Non-Invasive 114 mmHg Diastolic Blood Pressure Non-Invasive 52 mmHg LOW Mean Arterial Pressure (NBP) 70 mmHg Oxygen Saturation 100 % 02/03/2024 10:50 EST XR Chest 1 View XR CHEST 1 VIEW 02/03/2024 10:45 EST Heart Rate Monitored 68 bpm Systolic Blood Pressure Non-Invasive 100 mmHg Diastolic Blood Pressure Non-Invasive 48 mmHg <LLOW Mean Arterial Pressure (NBP) 63 mmHg Oxygen Saturation 94 % norepinephrine Begin Bag 8 mL mg NS Premix Diluent Begin Bag 250 mL mL 02/03/2024 10:42 EST Cardiac Rhythm Sinus rhythm Monitoring Lead II, V1/MCL1 NC Interval 0.16 second(s) QRS Duration 0.12 second(s) QT Interval 0.46 second(s) QTc Interval 0.49 second(s) 02/03/2024 10:40 EST Heart Rate Monitored 72 bpm Systolic Blood Pressure Non-Invasive 83 mmHg LOW Diastolic Blood Pressure Non-Invasive 40 mmHg <LLOW Mean Arterial Pressure (NBP) 53 mmHg Patient Airway Status Patent with support Ventilator Mode (A/C) Assist/Control Ventilation Breath Type VC (Volume Control) Ventilator Frequency, Mandatory 24 br/min Tidal Volume, Delivered 0.500 L Positive End Expiratory Pressure 5 cmH20 FiO2 100 % Flow Trigger (range 0.3 - 15 L/min.) 2.0 L/min Inspiratory Time (TI) 0.70 second(s) Tube Compensation Off Auto Flow On Ventilator Model Drager [id number] Ventilator ID 6 Vent FiO2 100 % Respiratory Rate Total 24 br/min Minute Volume 10.06 L/min Respiratory Rate, Spontaneous 0 br/min Inspiratory to Expiratory (I:E) Ratio 1:2.6 Tidal Volume, Exhaled 0.511 L Peak Inspiratory Pressure 27 cmH20 Plateau Pressure 20 cmH20 Mean Airway Pressure 11 Resuscitation Bag Available Yes Mask, Obturator, Syringe at bedside Yes Vent Alarms On and Functional Yes Vent Alarm High Pressure 45 cmH20 High Tidal Volume 1.0 Vent Alarm High Rate 40 br/min Vent Alarm Low Minute Volume 4 L/min Vent Alarm High Minute Volume 23 L/min Oxygen Saturation 93 % HME (Heat & Moisture Exchanger) On Cuffed endotracheal tube 8 01/21/2024 Endotracheal Tube Activity: Intubated Endotracheal Tube Placement: Oral, right ET Tube Insertion cm [place] at Lip: 24 cm Endotracheal Tube Position Confirmation: Breath sounds, Chest X-Ray, End-tidal CO2 Endotracheal Tube Cuff Pressure: 32 cm/H2O Endotracheal Tube Cuff Pressure Method: Measured Endotracheal Tube Status: Patent, Secure, manufactured tube alfredo Endotracheal Tube Performing Procedure: ELIZABETH GUERRA MD Endotracheal Tube Date of Intubation: 02/03/2024 02/03/2024 10:35 EST Nephrology Progress Note Progress Note 02/03/2024 10:34 EST phenylephrine 100 mcg mcg 02/03/2024 10:32 EST Procedure Note Procedure Note 02/03/2024 10:31 EST Heart Rate Monitored 77 bpm Reason For Taking VItal Signs Routine Oxygen Saturation 69 % <LLOW 02/03/2024 10:28 EST phenylephrine 100 mcg mcg 02/03/2024 10:27 EST Heart Rate Monitored 79 bpm Systolic Blood Pressure Non-Invasive 163 mmHg HI Diastolic Blood Pressure Non-Invasive 56 mmHg LOW Mean Arterial Pressure (NBP) 83 mmHg Reason For Taking VItal Signs Routine Oxygen Saturation 62 % <LLOW Cuffed endotracheal tube 8.0 02/03/2024 Endotracheal Tube Activity: Intubated Endotracheal Tube Placement: Oral, mid ET Tube Insertion cm [place] at Lip: 24 cm Endotracheal Tube Position Confirmation: Breath sounds, Chest X-Ray, End-tidal CO2 Endotracheal Tube Performing Procedure: ELIZABETH GUERRA MD Endotracheal Tube Date of Intubation: 02/03/2024 02/03/2024 10:26 EST propofol 50 mg mg 02/03/2024 10:25 EST fentaNYL 50 mcg mcg phenylephrine 100 mcg mcg 02/03/2024 10:24 EST Heart Rate Monitored 75 bpm Respiratory Rate 48 br/min >HHI Systolic Blood Pressure Non-Invasive 151 mmHg HI Diastolic Blood Pressure Non-Invasive 61 mmHg Mean Arterial Pressure (NBP) 87 mmHg Reason For Taking VItal Signs Routine Monitor Alarms On and Limits Checked Heart Sounds ICU S1S2 Heart Rhythm Regular Oxygen Saturation 77 % <LLOW propofol 50 mg mg 02/03/2024 10:02 EST FiO2 50 % Oxygen Therapy High flow nasal cannula HFNC Model Airvo HFNC Machine ID [id number] Oxygen Activity Oxygen On Oxygen Flow Rate 50 L/min Humidification Warm Humidifier Water Level Full Humidification Temperature 37 DegC 02/03/2024 10:00 EST Nasogastric (NG) Nostril, left Tube Feed Rate: 0 mL/hr 02/03/2024 9:45 EST Notify date/time 02/03/2024 9:45 Provider Notified ELIZABETH GUERRA MD Notification Method Face to face conversation Information Communicated Nurse communication Details Communicated Do you want IVF still going with normalized sodium Notification Outcome Orders received Person Reporting Result(s) Nika Graham RN Details of Results Received no d/c D5W but continue free water as ordered Results Read Back Yes 02/03/2024 9:16 EST Suction Method Oral Suction Device Y[place]auer Sputum Amount Large Sputum Color Clear, White Sputum Consistency Frothy 02/03/2024 9:15 EST Heart Rate Monitored 71 bpm Respiratory Rate 32 br/min >HHI Systolic Blood Pressure Non-Invasive 128 mmHg Diastolic Blood Pressure Non-Invasive 55 mmHg LOW Mean Arterial Pressure (NBP) 73 mmHg Reason For Taking VItal Signs Routine Oral Care ICU Done Eye Care Done Sedation Level -1 Drowsy Sedation Level Interventions Calm Primary Pain Location Generalized Primary Pain Intensity 3 Primary Pain Non-Pharma Intervention Rest, Repositioning Primary Pain Nonverbal Response Nods No Pain Scale Type Behavioral pain scale Monitor Alarms On and Limits Checked Heart Sounds ICU S1S2 Heart Rhythm Regular Radial Pulse, Left 2+ Normal Radial Pulse, Right 2+ Normal Generalized Edema Ratin+ moderate/6mm Hand edema Bilateral Edema Ratin+ mild/4mm Cardiac Rhythm Sinus rhythm Monitoring Lead II, V1/MCL1 Alarms On and Functional Yes Respirations Unlabored Respiratory Pattern Regular Patient Airway Status Patent with support Breath Sounds Auscultated Anterior only All Lobes Breath Sounds Diminished Suction Method Endotracheal Cough Weak Suction Device Inline suctioning Sputum Amount None Ventilator Mode (PSV) Pressure Support Ventilation Positive End Expiratory Pressure 5 cmH20 Pressure Support 5 cmH20 FiO2 40 % Vent FiO2 40 % Resuscitation Bag Available Yes Vent Alarms On and Functional Yes Oxygen Therapy Ventilator Oxygen Saturation 98 % Tracheal Position Midline Cuffed endotracheal tube 8 01/21/2024 Endotracheal Tube Activity: Assessed Endotracheal Tube Placement: Oral, mid ET Tube Insertion cm [place] at Lip: 26 cm Endotracheal Tube Position Confirmation: Breath sounds Endotracheal Tube Status: Patent, Secure, manufactured tube alfredo Endotracheal Tube Care: Oral care Abdomen Description Distended Abdomen Palpation Soft Bowel Continence No bowel movement Bowel Sounds All Quadrants Hypoactive Nasogastric (NG) Nostril, left Gastrointestinal Tube Activity: Assessed, Tube feeding Enteral Tube Insertion cm [place] at Nare: 78 cm Gastrointestinal Tube Care: Oral care, Secured Gastrointestinal Tube Site Condition: No complications Tube Feeding Type: nepro Tube Feed Rate: 40 mL/hr Urinary Elimination Urinary catheter draining Urine Color Yellow Urine Description Clear Perineum Intact Urinary Elimination Devices Indwelling catheter Urethral Indwelling/Continuous 16 Fr 01/21/2024 Urinary Catheter Activity: Assessed Urinary Catheter Site Condition: No complications Skin Symptoms Bruising Skin Integrity Not intact Skin Turgor Non-Elastic Skin Moisture General Dry Abdomen Anterior Wound Status: Unchanged Abdomen Left Lateral Wound Status: Unchanged Abdomen Right Multiple scattered Wound Status: Unchanged Luke-[place] # 3 Abdomen Right Surgical Drain, Tube Activity: Discontinued Surgical Drain, Tube Removal: Hemostasis within expected timeframe, Dressing applied, Sutures removed, Tubing intact, no resistance Surgical Drain, Tube Removal Reason: No longer indicated Continuous IV Infusions [id number]@75 Forearm Left 02/01/2024 20 gauge Peripheral IV Activity: Assessed Peripheral IV Site Condition: No complications Peripheral IV Equipment: IV Pump Forearm Right 02/01/2024 18 gauge Peripheral IV Activity: Assessed Peripheral IV Site Condition: No complications Peripheral IV Equipment: PRN Adaptor Neurological Symptoms Weakness Facial Symmetry Symmetric Level of Consciousness Alert G[place] Yes Strength All Extremities Weak Affect/Behavior Calm, Impulsive Orientation Follows simple commands Soft limb holders (Cloth) Wrist, bilateral Restraint Technique: Non Violent Restraint Restraint Activity Type: Continue restraint, same episode Behavior Requiring Non Violent Restraint Attempts to remove medical management devices Type of Medical Devices: Monitoring equipment, Tubes/drains, IV/arterial access, Airway management equipment Rationale for Restraint: Attempting to remove devices, despite current restraints Range of Motion: Repositioned Restraint Skin Assessment: Skin intact, Pulses intact Restraint Nutrition/Hydration: Tube feeding Restraint Hygiene/Elimination: Urinary catheter Other Standard Safety: ID band check Bed Standard Safety: Bed in low position, Upper/Half-length side rails up, Wheels locked, HOB elevated Restraint DC Readiness Attempts: Enhanced observation, Environmental changes, Pain management, Postitioning/Turning, Reality orientation Restraint DC Intervention Status: Intervention attempted, not successful Right lateral 16 [place] Chest Tube Activity: Assess Chest Tube Connectivity: Water-Seal gravity Chest Tube Water Seal Chamber Desc: Absence of Bubbling Positioning Repositioned left side Activity Status ADL Resting Beds/Devices low air loss bed Assistive Equipment boot(s) on Activity Assistance Maximum assistance Sequential Compression Device right knee high applied/on Antiembolism Stocking On/Re-applied bilateral knee high Oral Care Oral care protocol Skin Care Preventative Intervention(s) heel(s)s elevated Standard Safety Safety level maintained High Risk Safety Room check performed Special Call Device Unable to use call device Demonstrates Correct Call Light Use No Degrees Head of Bed Elevated 30 02/03/2024 8:50 EST calcium gluconate 1,000 mg mg potassium chloride 20 mEq mEq Sodium Chloride 0.9% 50 mL mL 02/03/2024 8:49 EST Soft limb holders (Cloth) Wrist, bilateral Restraint Technique: Non Violent Restraint Restraint Activity Type: Continue restraint, same episode Behavior Requiring Non Violent Restraint Attempts to remove medical management devices Type of Medical Devices: Monitoring equipment, Tubes/drains, IV/arterial access, Airway management equipment Rationale for Restraint: Attempting to remove devices, despite current restraints Range of Motion: Repositioned Restraint Skin Assessment: Skin intact, Pulses intact Restraint Nutrition/Hydration: Tube feeding Restraint Hygiene/Elimination: Urinary catheter Other Standard Safety: ID band check Bed Standard Safety: Bed in low position, Upper/Half-length side rails up, Wheels locked, HOB elevated Restraint DC Readiness Attempts: Enhanced observation, Environmental changes, Pain management, Postitioning/Turning, Reality orientation Restraint DC Intervention Status: Intervention attempted, not successful 02/03/2024 8:48 EST Discharge To, Anticipated Other: LTAC Anticipated Discharge Date 02/03/2024 Transition Planning Note Transition Planning Ongoing Assessment 02/03/2024 8:47 EST Discharge To, Anticipated Other: LTAC Anticipated Discharge Date 02/03/2024 Transition Planning Note Transition Planning Ongoing Assessment 02/03/2024 8:34 EST CAM Mental Status Change & Fluctuation No CAM Inattention No CAM Disorganized Thinking No CAM Altered Level of Consciousness No Confusion Assessment Method Score Negative 02/03/2024 8:16 EST Surgical Progress Note Progress Note (Modified) 02/03/2024 8:00 EST Apical Heart Rate 78 bpm amLODIPine 10 mg mg chlorhexidine topical 15 mL mL famotidine 20 mg mg metoprolol 25 mg mg ocular lubricant 1 drop(s) drop(s) 02/03/2024 7:52 EST insulin isophane 20 unit(s) unit(s) 02/03/2024 7:44 EST ceftriaxone 2 gram(s) gram(s) 02/03/2024 7:33 EST Suction Method Oral Suction Device Yankauer Sputum Amount Scant Sputum Color Clear, White Sputum Consistency Frothy 02/03/2024 7:32 EST Blood Glucose, Capillary 157 mg/dL HI Blood Glucose Testing Reason Routine Temperature Oral 37.8 DegC HI Heart Rate Monitored 79 bpm Respiratory Rate 36 br/min >HHI Systolic Blood Pressure Non-Invasive 138 mmHg Diastolic Blood Pressure Non-Invasive 52 mmHg LOW Mean Arterial Pressure (NBP) 74 mmHg Reason For Taking VItal Signs Routine Oral Care ICU Done Teeth Brushed Done Eye Care Done Sedation Level -1 Drowsy Sedation Level Interventions Calm Primary Pain Location Generalized Primary Pain Intensity 3 Primary Pain Non-Pharma Intervention Rest, Repositioning Primary Pain Nonverbal Response Nods No Pain Scale Type Behavioral pain scale Monitor Alarms On and Limits Checked Cardiovascular Symptoms Edema Nail Bed Color [place] Capillary Refill < 2 seconds Heart Sounds ICU S1S2 Heart Rhythm Regular Dorsalis Pedis Pulse, Left 1+ Thready Dorsalis Pedis Pulse, Right 1+ Thready Posttibial Pulse, Left 1+ Thready Posttibial Pulse, Right 1+ Thready Radial Pulse, Left 2+ Normal Radial Pulse, Right 2+ Normal Generalized Edema Ratin+ moderate/6mm Hand edema Bilateral Edema Ratin+ mild/4mm Cardiac Rhythm Sinus rhythm Monitoring Lead II, V1/MCL1 Alarms On and Functional Yes Heart Rate Alarm Set At - Low 50 Heart Rate Alarm Set At - High 120 NSBP Alarm Low 90 NSBP Alarm High 160 HI Respirations Unlabored Respiratory Pattern Regular Patient Airway Status Patent with support Breath Sounds Auscultated Anterior only All Lobes Breath Sounds Diminished Suction Method Endotracheal Cough Weak Suction Device Inline suctioning Sputum Amount Small Sputum Color Cream Sputum Consistency Thick Ventilator Mode (PSV) Pressure Support Ventilation Positive End Expiratory Pressure 5 cmH20 Pressure Support 5 cmH20 FiO2 40 % Vent FiO2 40 % Resuscitation Bag Available Yes Weaning Negative Inspiratory Force -27 cmH20 Weaning Respiratory Rate 33 br/min Weaning Rapid Shallow Breathing Index 60 Weaning Tidal Volume 0.503 L Weaning Minute Volume 11.7 L/min Weaning Vital Capacity 0.848 L Vent Alarms On and Functional Yes Oxygen Therapy Ventilator Oxygen Saturation 97 % Tracheal Position Midline Cuffed endotracheal tube 8 01/21/2024 Endotracheal Tube Activity: Assessed Endotracheal Tube Placement: Oral, mid ET Tube Insertion cm [place] at Lip: 26 cm Endotracheal Tube Position Confirmation: Breath sounds Endotracheal Tube Status: Patent, Secure, manufactured tube alfredo Endotracheal Tube Care: Oral care Abdomen Description Distended Abdomen Palpation Soft Bowel Continence No bowel movement Bowel Sounds All Quadrants Hypoactive Nasogastric (NG) Nostril, left Gastrointestinal Tube Activity: Assessed, Tube feeding Enteral Tube Insertion cm [place] at Nare: 78 cm Gastrointestinal Tube Care: Oral care, Secured Gastrointestinal Tube Site Condition: No complications Tube Feeding Type: nerpo Tube Feed Rate: 40 mL/hr Enteral Tube Flush: 30 mL Residual Amount: 100 mL Urinary Elimination Urinary catheter draining Urine Color Yellow Urine Description Clear Perineum Intact Urinary Elimination Devices Indwelling catheter Urethral Indwelling/Continuous 16 Fr 01/21/2024 Urinary Catheter Indication: Order for Strict I&O Urinary Catheter Activity: Assessed Urinary Catheter Secured: Securement device on Urinary Catheter Drainage System: Dependent drainage bag Urinary Catheter Site Condition: No complications Facial Movement Makes facial grimaces Skin Symptoms Bruising Bilateral Upper Extremity Description Normal for ethnicity Bilateral Lower Extremity Description Normal for ethnicity Skin Temperature Warm Skin Description Normal for ethnicity Skin Integrity Not intact Skin Turgor Non-Elastic Mucous Membrane Color [place] Mucous Membrane Description Moist Skin Color General Usual for ethnicity Skin Moisture General Dry Sensory Perception Alex Slightly limited Moisture Alex Very moist Activity Alex Bedfast Mobility Alex Very limited Nutrition Alex Adequate Friction and Shear Alex Potential problem Alex Score 13 Hospital Acquired Pressure Injury Risk Moderate risk (score 13-14) Abdomen Anterior Skin Abnormality Type: Surgical incision Incision, Wound Dressing/Activity: Assessed Incision, Wound Dressing Assessment: Clean, Dry, Intact Incision, Wound Dressing: ABD dressing pad Wound Exudate Amount: Scant Wound Exudate Type: Serosanguineous Wound Exudate Odor: None Incision, Wound Surrounding Tissue: Erythema Wound Status: Unchanged Abdomen Left Lateral Skin Abnormality Type: Tear Wound Status: Unchanged Abdomen Right Multiple scattered Skin Abnormality Type: Procedure site Incision, Wound Dressing/Activity: Assessed Incision, Wound Dressing Assessment: Clean, Dry, Intact Incision, Wound Dressing: Gauze dressing Wound Exudate Amount: Scant Wound Exudate Type: Purulent Wound Exudate Odor: None Incision, Wound Surrounding Tissue: Normal Wound Status: Unchanged Luke-Barillas # 3 Abdomen Right Surgical Drain, Tube Activity: Assessed Surgical Drain, Tube Care: [place] collapsed Surgical Drain Site Condition: No complications Surgical Drain, Tube Dressing Condition: Clean, Dry, Intact Surgical Drain, Tube Dressing/Activity: Gauze Surgical Drain, Tube Drainage Method: Compression Surgical Drain, Tube - Tube Descr: Serosanguineous Continuous IV Infusions D5W@75 Forearm Left 02/01/2024 20 gauge Peripheral IV Activity: Assessed Peripheral IV Dressing Condition: Clean, Dry, Intact Peripheral IV Dressing Activity: Transparent dressing Peripheral IV Line Status/Patency: Flushes easily, Continuous infusion, Good blood return Peripheral IV Site Condition: No complications Peripheral IV Equipment: IV Pump Forearm Right 02/01/2024 18 gauge Peripheral IV Activity: Assessed Peripheral IV Dressing Condition: Clean, Dry, Intact Peripheral IV Dressing Activity: Transparent dressing Peripheral IV Line Status/Patency: Flushes easily Peripheral IV Site Condition: No complications Peripheral IV Equipment: PRN Adaptor Neurological Language Intubated or other physical barrier Neurological Symptoms Weakness Gait Unable to assess Extremity Movement Equal Characteristics of Communication Unable to speak, due to vent Characteristics of Speech Unable to assess Facial Symmetry Symmetric Level of Consciousness Alert Eye Opening Response [place] Spontaneously Best Motor Response Nathan Obeys simple commands Best Verbal Response Nathan None Nathan Coma Score 11 GALILEA Yes Left Pupil Description Regular Right Pupil Description Regular Left Pupil Reaction Brisk Right Pupil Reaction Brisk Pupil Size, Left 3 mm Pupil Size, Right 3 mm Strength All Extremities Weak Left Upper Extremity Sensation Intact Right Upper Extremity Sensation Intact Left Lower Extremity Sensation Intact Right Lower Extremity Sensation Intact CN V Facial Sensation Corneal reflex present CN VII Facial Expression and Symmetry Wrinkles forehead CN IX, X Swallowing, Gag Reflex Gag reflex present Parry Screen Daily History of Fall in Last 3 Months Parry No Presence of Secondary Diagnosis Parry Yes Use of Ambulatory Aid Parry None, bedrest, wheelchair, nurse IV/PRN Adapter Fall Risk Parry Yes Gait Weak or Impaired Fall Risk Parry Normal, bedrest, immobile Mental Status Fall Risk Parry Forgets limitations Parry Fall Risk Score 50 HI Violence Risk Confused Yes Violence Risk Irritable No Violence Risk Boisterous No Violence Risk Verbal Threats No Violence Risk Physical Threats No Violence Risk Attacking Objects No Violence Risk Predictor Score 1 Violence Risk Intervention None Violence Risk Current Interventions Restraint Non Violent Affect/Behavior Calm, Impulsive Orientation Follows simple commands Right lateral 16 Micron[place] Chest Tube Activity: Assess Chest Tube Connectivity: Water-Seal gravity Chest Tube Water Seal Chamber Desc: Absence of Bubbling Chest Tube Interventions: Clamps at bedside Chest Tube Drainage Description: Straw colored Chest Tube Dressing Condition: Clean, Dry, Intact Chest Tube Dressing: Occlusive dressing BMAT Existing Patient Condition/Safety No order for Strict Bedrest BMAT Level 1: Sit and Shake Patient unable BMAT Mobility Level 0 Assistive Device Ceiling lift Positioning Repositioned right side Mobility Assistance Level Maximum assistance Activity Status ADL Resting Beds/Devices low air loss bed Assistive Equipment boot(s) on Activity Assistance Maximum assistance Sequential Compression Device right knee high applied/on Antiembolism Stocking On/Re-applied bilateral thigh high Oral Care Oral care protocol (Modified) Skin Care Preventative Intervention(s) heel(s)s elevated Standard Safety Safety level maintained High Risk Safety Room check performed Special Call Device Unable to use call device Demonstrates Correct Call Light Use No Degrees Head of Bed Elevated 30 02/03/2024 7:31 EST Respiratory Rate Total 35 br/min HI Minute Volume 9.33 L/min Tidal Volume, Exhaled 0.483 L 02/03/2024 7:29 EST Ventilator Mode (PSV) Pressure Support Ventilation Positive End Expiratory Pressure 5 cmH20 Pressure Support 5 cmH20 FiO2 40 % Tube Compensation On Vent FiO2 40 % Spontaneous Breathing Trial Initiated 02/03/2024 7:28 EST Patient Airway Status Patent with support Cuffed endotracheal tube 8 01/21/2024 Endotracheal Tube Activity: Assessed Endotracheal Tube Placement: Oral, mid ET Tube Insertion cm [place] at Lip: 26 cm Endotracheal Tube Position Confirmation: Breath sounds Endotracheal Tube Cuff Pressure: 26 cm/H2O Endotracheal Tube Cuff Pressure Method: Measured Endotracheal Tube Status: Patent, Secure, manufactured tube alfredo Endotracheal Tube Care: Repositioned 02/03/2024 7:26 EST Heart Rate Monitored 78 bpm Reason For Taking VItal Signs Routine Ventilator Mode (A/C) Assist/Control Ventilation Breath Type VC (Volume Control) Ventilator Frequency, Mandatory 24 br/min Tidal Volume, Delivered 0.500 L Positive End Expiratory Pressure 5 cmH20 FiO2 40 % Flow Trigger (range 0.3 - 15 L/min.) 2 L/min Inspiratory Time (TI) 0.70 second(s) Tube Compensation Off Auto Flow On Ventilator Model Drager V500 Ventilator ID 6 Vent FiO2 40 % Respiratory Rate Total 27 br/min HI Minute Volume 12.3 L/min Respiratory Rate, Spontaneous 3 br/min Inspiratory to Expiratory (I:E) Ratio 1:2 Tidal Volume, Exhaled 0.530 L Peak Inspiratory Pressure 28 cmH20 Plateau Pressure 18 cmH20 Mean Airway Pressure 12 Resuscitation Bag Available Yes Mask, Obturator, Syringe at bedside Yes Vent Alarms On and Functional Yes Vent Alarm High Pressure 45 cmH20 High Tidal Volume 1.0 Vent Alarm High Rate 40 br/min Vent Alarm Low Minute Volume 4 L/min Vent Alarm High Minute Volume 23 L/min Oxygen Saturation 97 % HME (Heat & Moisture Exchanger) On 02/03/2024 7:23 EST Cardiac Rhythm Sinus rhythm Monitoring Lead II, V1/MCL1 NC Interval 0.19 second(s) QRS Duration 0.09 second(s) QT Interval 0.44 second(s) QTc Interval 0.50 second(s) 02/03/2024 7:16 EST Ventilator Activity On 02/03/2024 7:10 EST Soft limb holders (Cloth) Wrist, bilateral Restraint Technique: Non Violent Restraint Restraint Activity Type: Continue restraint, same episode Behavior Requiring Non Violent Restraint Attempts to remove medical management devices Type of Medical Devices: Monitoring equipment, Tubes/drains, IV/arterial access, Airway management equipment Rationale for Restraint: Attempting to remove devices, despite current restraints Range of Motion: Repositioned Restraint Skin Assessment: Skin intact, Pulses intact Restraint Nutrition/Hydration: Tube feeding Restraint Hygiene/Elimination: Urinary catheter Other Standard Safety: ID band check Bed Standard Safety: Bed in low position, Upper/Half-length side rails up, Wheels locked, HOB elevated Restraint DC Readiness Attempts: Enhanced observation, Environmental changes Restraint DC Intervention Status: Intervention attempted, not successful 02/03/2024 7:00 EST Tube Feeding Intake 230 mL 02/03/2024 6:59 EST Dextrose 5% in Water 600 mL mL 02/03/2024 6:52 EST Peripheral Pulse Rate 75 bpm Respiratory Rate 25 br/min HI Respirations Unlabored Breath Sounds Auscultated Anterior only All Lobes Breath Sounds Clear, Diminished Aerosol Delivery Device Small volume nebulizer Aerosol Treatment Route Inline Cough and Deep Breathe Done Spontaneous Cough Yes Oxygen Saturation 96 % Respiratory Treatment Charge Two aerosol treatments Level of Consciousness Alert 02/03/2024 6:51 EST albuterol-ipratropium 3 mL mL budesonide 0.5 mg mg 02/03/2024 6:38 EST WBC 7.6 10^3/mcL RBC 3.45 10^6/mcL LOW Hgb 10.8 G/dL LOW Hct 31.8 % LOW MCV 92.2 fL MCH 31.4 pg MCHC 34.0 G/dL RDW 13.5 % Platelet 307 10^3/mcL MPV 10.5 fL Neutrophil % 86.9 % HI Lymphocyte % 6.9 % LOW Monocyte % 5.5 % Eosinophil % 0.4 % Basophil % 0.3 % Neutrophil, Absolute 6.6 10^3/mcL Lymphocyte, Absolute 0.5 10^3/mcL LOW Monocyte, Absolute 0.4 10^3/mcL Eosinophil, Absolute 0.0 10^3/mcL Basophil, Absolute 0.0 10^3/mcL Glucose Level 150 mg/dL HI Sodium Level 144 mEq/L Potassium Level 3.5 mEq/L Chloride 109 mEq/L CO2 26 mEq/L Electrolyte Balance 9.0 mEq/L BUN 63.0 mg/dL HI Creatinine Lvl (s) 1.66 mg/dL HI BUN/Creatinine Ratio 38.0 ratio HI Calcium Lvl 7.3 mg/dL LOW Magnesium Lvl 1.9 mg/dL Phosphorus 4.4 mg/dL GFR Non- 41 ml/min/1.73sqm NA GFR 50 ml/min/1.73sqm NA Calcium Ionized 0.94 mmol/L LOW Creatinine Clearance Calc 42.96 mL/min 02/03/2024 6:30 EST Heart Rate Monitored 76 bpm Systolic Blood Pressure Non-Invasive 138 mmHg Diastolic Blood Pressure Non-Invasive 57 mmHg LOW Mean Arterial Pressure (NBP) 77 mmHg Oxygen Saturation 98 % 02/03/2024 6:21 EST XR Chest 1 View XR CHEST 1 VIEW 02/03/2024 6:04 EST Critical Care Progress Notes Progress Note (Modified) 02/03/2024 5:27 EST heparin 5,000 unit(s) unit(s) 02/03/2024 5:20 EST Suction Method Oral Suction Device Yankauer Sputum Amount Moderate Sputum Color Clear, White Sputum Consistency Frothy 02/03/2024 5:19 EST Heart Rate Monitored 77 bpm Respiratory Rate 27 br/min HI Systolic Blood Pressure Non-Invasive 130 mmHg Diastolic Blood Pressure Non-Invasive 57 mmHg LOW Mean Arterial Pressure (NBP) 76 mmHg Reason For Taking VItal Signs Routine Oral Care ICU Done Eye Care Done Sedation Level -1 Drowsy Sedation Level Interventions Calm Primary Pain Location Generalized Primary Pain Intensity 3 Primary Pain Non-Pharma Intervention Rest, Repositioning Primary Pain Nonverbal Response Nods No Pain Scale Type Behavioral pain scale Monitor Alarms On and Limits Checked Heart Sounds ICU S1S2 Heart Rhythm Regular Radial Pulse, Left 2+ Normal Radial Pulse, Right 2+ Normal Generalized Edema Ratin+ moderate/6mm Hand edema Bilateral Edema Ratin+ mild/4mm Cardiac Rhythm Sinus rhythm Monitoring Lead II, V1/MCL1 Alarms On and Functional Yes Respirations Unlabored Respiratory Pattern Regular Patient Airway Status Patent with support Breath Sounds Auscultated Anterior only All Lobes Breath Sounds Diminished Suction Method Endotracheal Cough Weak Suction Device Inline suctioning Sputum Amount None Ventilator Mode (A/C) Assist/Control Ventilation Ventilator Frequency, Mandatory 24 br/min Tidal Volume, Delivered 0.500 L Positive End Expiratory Pressure 5 cmH20 FiO2 30 % Vent FiO2 40 % Tidal Volume, Exhaled 0.515 L Resuscitation Bag Available Yes Vent Alarms On and Functional Yes Oxygen Therapy Ventilator Oxygen Saturation 97 % Tracheal Position Midline Cuffed endotracheal tube 8 01/21/2024 Endotracheal Tube Activity: Assessed Endotracheal Tube Placement: Oral, right ET Tube Insertion cm [place] at Lip: 26 cm Endotracheal Tube Position Confirmation: Breath sounds Endotracheal Tube Status: Patent, Secure, manufactured tube alfredo Endotracheal Tube Care: Oral care Abdomen Description Distended Abdomen Palpation Soft Stool Color Brown Stool Description Liquid Bowel Continence Incontinent Bowel Sounds All Quadrants Hypoactive Nasogastric (NG) Nostril, left Gastrointestinal Tube Activity: Assessed, Tube feeding Enteral Tube Insertion cm [place] at Nare: 78 cm Gastrointestinal Tube Care: Oral care Gastrointestinal Tube Site Condition: No complications Tube Feeding Type: nepro Tube Feed Rate: 40 mL/hr Free Water: 500 mL Urinary Elimination Urinary catheter draining Urinary Elimination Devices Indwelling catheter Urethral Indwelling/Continuous 16 Fr 01/21/2024 Urinary Catheter Activity: Assessed Urinary Catheter Site Condition: No complications Urinary Catheter Output: 825 mL Urinary Catheter Care Completed: Yes Skin Symptoms Bruising Skin Integrity Not intact Skin Turgor Non-Elastic Skin Moisture General Dry Abdomen Anterior Wound Status: Unchanged Abdomen Left Lateral Wound Status: Unchanged Abdomen Right Multiple scattered Wound Status: Unchanged Luke-Barillas # 3 Abdomen Right Surgical Drain, Tube Activity: Assessed Surgical Drain, Tube Care: [place] collapsed Surgical Drain Site Condition: No complications Surgical Drain, Tube Output: 5 mL Continuous IV Infusions D5W@75 Forearm Left 02/01/2024 20 gauge Peripheral IV Activity: Assessed Peripheral IV Site Condition: No complications Peripheral IV Equipment: IV Pump Forearm Right 02/01/2024 18 gauge Peripheral IV Activity: Assessed Peripheral IV Site Condition: No complications Peripheral IV Equipment: PRN Adaptor Neurological Symptoms Weakness Characteristics of Communication Unable to speak, due to vent Facial Symmetry Symmetric Level of Consciousness [place] with minimal stimulation GALILEA Yes Strength All Extremities Weak Affect/Behavior Calm, Impulsive Orientation Follows simple commands Soft limb holders (Cloth) Wrist, bilateral Restraint Technique: Non Violent Restraint Restraint Activity Type: Continue restraint, same episode Behavior Requiring Non Violent Restraint Attempts to remove medical management devices Type of Medical Devices: Monitoring equipment, Tubes/drains, IV/arterial access, Airway management equipment Rationale for Restraint: Attempting to remove devices, despite current restraints Range of Motion: Repositioned Restraint Skin Assessment: Skin intact, Pulses intact Restraint Nutrition/Hydration: Tube feeding Restraint Hygiene/Elimination: Urinary catheter Other Standard Safety: ID band check Bed Standard Safety: Bed in low position, Upper/Half-length side rails up, Wheels locked, HOB elevated Restraint DC Readiness Attempts: Enhanced observation, Environmental changes, Pain management, Postitioning/Turning, Reality orientation Restraint DC Intervention Status: Intervention attempted, not successful Right lateral 16 [place] Chest Tube Activity: Assess Chest Tube Connectivity: Water-Seal gravity Chest Tube Water Seal Chamber Desc: Absence of Bubbling Chest Tube Output: 80 mL Positioning Repositioned back Activity Status ADL Resting Beds/Devices low air loss bed Assistive Equipment boot(s) on Activity Assistance Maximum assistance Sequential Compression Device right knee high applied/on Antiembolism Stocking On/Re-applied bilateral knee high Oral Care Oral care protocol Skin Care Preventative Intervention(s) heel(s)s elevated Standard Safety Safety level maintained High Risk Safety Room check performed Special Call Device Unable to use call device Demonstrates Correct Call Light Use No Degrees Head of Bed Elevated 30 Stool Count 1 EA 02/03/2024 4:30 EST Heart Rate Monitored 77 bpm Systolic Blood Pressure Non-Invasive 110 mmHg Diastolic Blood Pressure Non-Invasive 52 mmHg LOW Mean Arterial Pressure (NBP) 67 mmHg Oxygen Saturation 95 % 02/03/2024 4:23 EST Vent FiO2 40 % 02/03/2024 4:15 EST Cough and Deep Breathe Done Spontaneous Cough No Cough Initiated By Inline suctioning Suction Method Endotracheal Cough Weak Sputum Amount Moderate Sputum Color Cream Sputum Consistency Thick 02/03/2024 4:06 EST Breath Sounds Auscultated Anterior only All Lobes Breath Sounds Coarse crackles 02/03/2024 4:05 EST Patient Airway Status Patent with support Cuffed endotracheal tube 8 01/21/2024 Endotracheal Tube Activity: Assessed Endotracheal Tube Placement: Oral, right ET Tube Insertion cm [place] at Lip: 26 cm Endotracheal Tube Position Confirmation: Breath sounds Endotracheal Tube Cuff Pressure: 28 cm/H2O Endotracheal Tube Cuff Pressure Method: Measured Endotracheal Tube Status: Patent, Secure, manufactured tube alfredo Endotracheal Tube Care: Repositioned 02/03/2024 4:03 EST Ventilator Mode (A/C) Assist/Control Ventilation Breath Type VC (Volume Control) Ventilator Frequency, Mandatory 24 br/min Tidal Volume, Delivered 0.500 L Positive End Expiratory Pressure 5 cmH20 Flow Trigger (range 0.3 - 15 L/min.) 2 L/min Inspiratory Time (TI) 0.7 second(s) Tube Compensation Off Auto Flow On Ventilator Model [employer] V500 Ventilator ID 6 Vent FiO2 30 % Respiratory Rate Total 25 br/min HI Minute Volume 11.3 L/min Respiratory Rate, Spontaneous 1 br/min Inspiratory to Expiratory (I:E) Ratio 1:2.6 Tidal Volume, Exhaled 0.531 L Peak Inspiratory Pressure 38 cmH20 Plateau Pressure 20 cmH20 Mean Airway Pressure 14 Resuscitation Bag Available Yes Mask, Obturator, Syringe at bedside Yes Vent Alarms On and Functional Yes Vent Alarm High Pressure 45 cmH20 High Tidal Volume 1 Vent Alarm High Rate 40 br/min Vent Alarm Low Minute Volume 4 L/min Vent Alarm High Minute Volume 23 L/min HME (Heat & Moisture Exchanger) Changed 02/03/2024 4:00 EST ocular lubricant Not Done: Not Appropriate at this Time (Not Done) 02/03/2024 3:49 EST Suction Method Oral Suction Device Yankauer Sputum Amount Large Sputum Color Clear, White Sputum Consistency Frothy 02/03/2024 3:48 EST Blood Glucose, Capillary 152 mg/dL HI Blood Glucose Testing Reason Routine Temperature Oral 37.4 DegC HI Heart Rate Monitored 76 bpm Respiratory Rate 25 br/min HI Systolic Blood Pressure Non-Invasive 147 mmHg HI Diastolic Blood Pressure Non-Invasive 49 mmHg <LLOW Mean Arterial Pressure (NBP) 74 mmHg Reason For Taking VItal Signs Routine Oral Care ICU Done Eye Care Done Sedation Level -1 Drowsy Sedation Level Interventions Calm Primary Pain Location Generalized Primary Pain Intensity 3 Primary Pain Non-Pharma Intervention Rest, Repositioning Primary Pain Nonverbal Response Nods No Pain Scale Type Behavioral pain scale Monitor Alarms On and Limits Checked Cardiovascular Symptoms Edema Nail Bed Color [place] Capillary Refill < 2 seconds Heart Sounds ICU S1S2 Heart Rhythm Regular Dorsalis Pedis Pulse, Left 1+ Thready Dorsalis Pedis Pulse, Right 1+ Thready Posttibial Pulse, Left 1+ Thready Posttibial Pulse, Right 1+ Thready Radial Pulse, Left 2+ Normal Radial Pulse, Right 2+ Normal Generalized Edema Ratin+ moderate/6mm Hand edema Bilateral Edema Ratin+ mild/4mm Cardiac Rhythm Sinus rhythm Monitoring Lead II, V1/MCL1 Alarms On and Functional Yes Heart Rate Alarm Set At - Low 50 Heart Rate Alarm Set At - High 120 NSBP Alarm Low 90 NSBP Alarm High 160 HI Respirations Unlabored Respiratory Pattern Regular Patient Airway Status Patent with support Breath Sounds Auscultated Anterior only All Lobes Breath Sounds Diminished Suction Method Endotracheal Cough Weak Suction Device Inline suctioning Sputum Amount Small Sputum Color Cream Sputum Consistency Thick Ventilator Mode (A/C) Assist/Control Ventilation Ventilator Frequency, Mandatory 24 br/min Tidal Volume, Delivered 0.500 L Positive End Expiratory Pressure 5 cmH20 FiO2 30 % Vent FiO2 30 % Tidal Volume, Exhaled 0.524 L Resuscitation Bag Available Yes Vent Alarms On and Functional Yes Oxygen Therapy Ventilator Oxygen Saturation 93 % Tracheal Position Midline Cuffed endotracheal tube 8 01/21/2024 Endotracheal Tube Activity: Assessed Endotracheal Tube Placement: Oral, left ET Tube Insertion cm [place] at Lip: 26 cm Endotracheal Tube Position Confirmation: Breath sounds Endotracheal Tube Status: Patent, Secure, manufactured tube alfreod Endotracheal Tube Care: Oral care Abdomen Description Distended Abdomen Palpation Soft Bowel Continence No bowel movement Bowel Sounds All Quadrants Hypoactive (Modified) Nasogastric (NG) Nostril, left Gastrointestinal Tube Activity: Assessed, Tube feeding (Modified) Enteral Tube Insertion cm [place] at Nare: 78 cm Gastrointestinal Tube Care: Oral care, Secured Gastrointestinal Tube Site Condition: No complications Tube Feeding Type: nepro Tube Feed Rate: 40 mL/hr Residual Amount: 20 mL Urinary Elimination Urinary catheter draining Urine Color Yellow Urine Description Clear Perineum Intact Urinary Elimination Devices Indwelling catheter Urethral Indwelling/Continuous 16 Fr 01/21/2024 Urinary Catheter Indication: Order for Strict I&O Urinary Catheter Activity: Assessed Urinary Catheter Secured: Securement device on Urinary Catheter Drainage System: Dependent drainage bag Urinary Catheter Site Condition: No complications Facial Movement Makes facial grimaces Skin Symptoms Bruising Bilateral Upper Extremity Description Normal for ethnicity Bilateral Lower Extremity Description Normal for ethnicity Skin Temperature Warm Skin Description Normal for ethnicity Skin Integrity Not intact Skin Turgor Non-Elastic Mucous Membrane Color [place] Mucous Membrane Description Moist Skin Color General Usual for ethnicity Skin Moisture General Dry Abdomen Anterior Skin Abnormality Type: Surgical incision Incision, Wound Dressing/Activity: Assessed Incision, Wound Dressing Assessment: Clean, Dry, Intact Incision, Wound Dressing: ABD dressing pad, Gauze bandage roll, Wet to Dry Wound Exudate Amount: Scant Wound Exudate Type: Serosanguineous Wound Exudate Odor: None Incision, Wound Surrounding Tissue: Erythema Wound Status: No complications Abdomen Left Lateral Skin Abnormality Type: Tear Incision, Wound Dressing/Activity: Open to air Wound Status: No complications Abdomen Right Multiple scattered Skin Abnormality Type: Procedure site (Modified) Incision, Wound Dressing/Activity: Assessed Incision, Wound Dressing Assessment: Clean, Dry, Intact, Drainage present Incision, Wound Dressing: Gauze dressing Wound Exudate Amount: Scant Wound Exudate Type: Purulent Wound Exudate Odor: None Incision, Wound Surrounding Tissue: Normal Wound Status: No complications Luke-Barillas # 3 Abdomen Right Surgical Drain, Tube Activity: Assessed Surgical Drain, Tube Care: [place] collapsed Surgical Drain Site Condition: No complications Surgical Drain, Tube Dressing Condition: Clean, Dry, Intact Surgical Drain, Tube Dressing/Activity: Gauze Surgical Drain, Tube Drainage Method: Compression Surgical Drain, Tube - Tube Descr: Serosanguineous Continuous IV Infusions D5W@75 Forearm Left 02/01/2024 20 gauge Peripheral IV Activity: Assessed Peripheral IV Dressing Condition: Clean, Dry, Intact Peripheral IV Dressing Activity: Transparent dressing Peripheral IV Line Status/Patency: Flushes easily, Continuous infusion, Good blood return Peripheral IV Site Condition: No complications Peripheral IV Equipment: IV Pump Forearm Right 02/01/2024 18 gauge Peripheral IV Activity: Assessed Peripheral IV Dressing Condition: Clean, Dry, Intact Peripheral IV Dressing Activity: Transparent dressing Peripheral IV Line Status/Patency: Flushes easily Peripheral IV Site Condition: No complications Peripheral IV Equipment: PRN Adaptor Neurological Language Intubated or other physical barrier Neurological Symptoms Weakness Gait Unable to assess Extremity Movement Equal Characteristics of Communication Unable to speak, due to vent Characteristics of Speech Unable to assess Facial Symmetry Symmetric Level of Consciousness Alert Eye Opening Response [place] Spontaneously Best Motor Response [place] Obeys simple commands Best Verbal Response Nathan None [place] Coma Score 11 GALILEA Yes Left Pupil Description Regular Right Pupil Description Regular Left Pupil Reaction Brisk Right Pupil Reaction Brisk Pupil Size, Left 3 mm Pupil Size, Right 3 mm Strength All Extremities Weak Left Upper Extremity Sensation Intact Right Upper Extremity Sensation Intact Left Lower Extremity Sensation Intact Right Lower Extremity Sensation Intact CN V Facial Sensation Corneal reflex absent CN VII Facial Expression and Symmetry Wrinkles forehead CN IX, X Swallowing, Gag Reflex Gag reflex present Affect/Behavior Calm, Impulsive (Modified) Orientation Follows simple commands Soft limb holders (Cloth) Wrist, bilateral Restraint Technique: Non Violent Restraint Restraint Activity Type: Continue restraint, same episode Behavior Requiring Non Violent Restraint Attempts to remove medical management devices Type of Medical Devices: Monitoring equipment, Tubes/drains, IV/arterial access, Airway management equipment Rationale for Restraint: Attempting to remove devices, despite current restraints Range of Motion: Repositioned Restraint Skin Assessment: Skin intact, Pulses intact Restraint Nutrition/Hydration: Tube feeding Restraint Hygiene/Elimination: Urinary catheter Other Standard Safety: ID band check Bed Standard Safety: Bed in low position, Upper/Half-length side rails up, Wheels locked, HOB elevated Restraint DC Readiness Attempts: Enhanced observation, Environmental changes, Pain management, Postitioning/Turning, Reality orientation Restraint DC Intervention Status: Intervention attempted, not successful Right lateral 16 [place] Chest Tube Activity: Assess Chest Tube Connectivity: Water-Seal gravity Chest Tube Water Seal Chamber Desc: Absence of Bubbling Chest Tube Interventions: Clamps at bedside Chest Tube Drainage Description: Straw colored Chest Tube Dressing Condition: Clean, Dry, Intact Chest Tube Dressing: Occlusive dressing Individuals Taught Patient Learning Readiness critical condition Barriers to Learning Acuity of illness Teaching Method Explanation Preferred Spoken Language Nigerien Preferred Written Language Nigerien Restraint Use Education Reason for restraint use, Restraint release criteria Restraint Teaching Evaluation Needs further teaching Positioning Repositioned left side Activity Status ADL Resting Beds/Devices low air loss bed Assistive Equipment boot(s) on Activity Assistance Maximum assistance Sequential Compression Device right knee high applied/on Antiembolism Stocking On/Re-applied bilateral knee high Oral Care Oral care protocol Skin Care Preventative Intervention(s) heel(s)s elevated Standard Safety ID band on, Call device within reach, Bed in low position, Wheels locked, Upper/Half-Length side-rails up High Risk Safety Room check performed Special Call Device Unable to use call device Demonstrates Correct Call Light Use No Degrees Head of Bed Elevated 30 02/03/2024 3:33 EST Cardiac Rhythm Sinus rhythm Monitoring Lead II, V1/MCL1 NC Interval 0.17 second(s) QRS Duration 0.10 second(s) QT Interval 0.43 second(s) QTc Interval 0.48 second(s) 02/03/2024 3:01 EST Stool Color Brown Stool Description Incontinent, Medium amount Stool Count 1 EA 02/03/2024 2:00 EST Temperature Oral 37.2 DegC Heart Rate Monitored 77 bpm Respiratory Rate 26 br/min HI Systolic Blood Pressure Non-Invasive 157 mmHg HI Diastolic Blood Pressure Non-Invasive 61 mmHg Mean Arterial Pressure (NBP) 84 mmHg Reason For Taking VItal Signs Routine Oral Care ICU Done Eye Care Done Sedation Level 0 Alert and Calm Primary Pain Intensity 3 Primary Pain Nonverbal Response Nods No Pain Scale Type Behavioral pain scale Monitor Alarms On and Limits Checked Nail Bed Color [place] Capillary Refill < 2 seconds Heart Sounds ICU S1S2 Heart Rhythm Regular Dorsalis Pedis Pulse, Left 1+ Thready Dorsalis Pedis Pulse, Right 1+ Thready Posttibial Pulse, Left 1+ Thready Posttibial Pulse, Right 1+ Thready Radial Pulse, Left 2+ Normal Radial Pulse, Right 2+ Normal Generalized Edema Ratin+ moderate/6mm Hand edema Bilateral Edema Ratin+ mild/4mm Cardiac Rhythm Sinus rhythm Monitoring Lead II, V1/MCL1 Alarms On and Functional Yes Respirations Unlabored Respiratory Pattern Regular Respiratory Pattern Detailed Vented Patient Airway Status Patent with support Breath Sounds Auscultated Anterior and posterior All Lobes Breath Sounds Clear, Diminished Suction Method Oral Cough None Suction Device [place] Sputum Amount Copious Sputum Color Cream Sputum Consistency Thin Ventilator Mode (A/C) Assist/Control Ventilation Ventilator Frequency, Mandatory 24 br/min Tidal Volume, Delivered 0.500 L Positive End Expiratory Pressure 5 cmH20 FiO2 30 % Vent FiO2 30 % Resuscitation Bag Available Yes Vent Alarms On and Functional Yes Oxygen Therapy Ventilator Oxygen Saturation 92 % LOW Tracheal Position Midline Cuffed endotracheal tube 8 01/21/2024 Endotracheal Tube Activity: Assessed Endotracheal Tube Placement: Oral, mid ET Tube Insertion cm [place] at Lip: 26 cm Endotracheal Tube Position Confirmation: Breath sounds Endotracheal Tube Cuff Pressure Method: Measured Endotracheal Tube Status: Patent Endotracheal Tube Care: Oral care Abdomen Description Distended, Symmetric, Semi-firm (Modified) Abdomen Palpation Semi-firm (Modified) Abdomen Tender All quadrants Bowel Continence No bowel movement Bowel Sounds All Quadrants Present Nasogastric (NG) Nostril, left Gastrointestinal Tube Activity: Assessed Enteral Tube Insertion cm [place] at Nare: 78 cm Gastrointestinal Tube Care: Oral care Gastrointestinal Tube Dsg Condition: Clean, Dry, Intact Gastrointestinal Tube Dressing/Activity: Split gauze Gastrointestinal Tube Site Condition: No complications Tube Feeding Type: nepro Tube Feed Rate: 40 mL/hr Urinary Elimination Devices Indwelling catheter Urethral Indwelling/Continuous 16 Fr 01/21/2024 Urinary Catheter Activity: Assessed Urinary Catheter Site Condition: No complications Bilateral Upper Extremity Description [place], Normal for ethnicity Bilateral Lower Extremity Description [place] Mucous Membrane Color [place] Mucous Membrane Description Moist Skin Color General Usual for ethnicity Abdomen Anterior Skin Abnormality Type: Surgical incision Skin Abnormality Pattern: Scattered Skin Abnormality Color: Black, Brown, [place], Maroon, [place], White, Yellow Incision, Wound Dressing/Activity: Changed Incision, Wound Dressing Assessment: Drainage present, Loose Incision, Wound Dressing: ABD dressing pad, Gauze bandage roll, Gauze dressing Wound Edge: Approximated, Rolled, Unattached to wound bed Incision, Wound Cleansing: Cleaned with soap and water Incision, Wound Topical Agent: Antibacterial ointment Wound Bed Tissue Type: Necrotic tissue, slough, Subcutaneous Wound Exudate Amount: Moderate Wound Exudate Type: Serosanguineous Wound Exudate Odor: Faint Incision, Wound Surrounding Tissue: Erythema, Edematous, Excoriated, Moist, Pain increase, Temperature decrease Wound Status: No complications Wound Associated Pain: With activity, mobilization Abdomen Left Lateral Skin Abnormality Type: Tear Incision, Wound Dressing/Activity: Assessed Incision, Wound Dressing Assessment: Clean, Dry, Intact Wound Status: No complications Abdomen Right Multiple scattered Skin Abnormality Type: Procedure site Incision, Wound Dressing/Activity: Assessed Incision, Wound Dressing Assessment: Clean, Dry, Intact Wound Status: No complications Luke-Barillas # 3 Abdomen Right Surgical Drain, Tube Activity: Assessed Surgical Drain, Tube Care: [place] collapsed Surgical Drain Site Condition: No complications Continuous IV Infusions d5w@ 75 ml/hr Forearm Left 02/01/2024 20 gauge Peripheral IV Activity: Assessed Peripheral IV Site Condition: No complications Peripheral IV Equipment: IV Pump Forearm Right 02/01/2024 18 gauge Peripheral IV Activity: Assessed Peripheral IV Site Condition: No complications Peripheral IV Equipment: PRN Adaptor Neurological Symptoms Patient denies Level of Consciousness Alert GALILEA Yes Left Upper Extremity Strength Weak Right Upper Extremity Strength Weak Left Lower Extremity Strength Moderate Right Lower Extremity Strength Moderate Left Upper Extremity Sensation Intact Right Upper Extremity Sensation Intact Left Lower Extremity Sensation Intact Right Lower Extremity Sensation Intact Affect/Behavior Appropriate, Calm, Cooperative, Impulsive Orientation Follows simple commands Soft limb holders (Cloth) Wrist, bilateral Restraint Technique: Non Violent Restraint Restraint Activity Type: Continue restraint, same episode Behavior Requiring Non Violent Restraint Attempts to remove medical management devices Type of Medical Devices: Monitoring equipment, Tubes/drains, IV/arterial access, Airway management equipment Rationale for Restraint: Attempting to remove devices, despite current restraints Range of Motion: Repositioned Restraint Skin Assessment: Skin intact, Pulses intact Restraint Nutrition/Hydration: Tube feeding Restraint Hygiene/Elimination: Urinary catheter Other Standard Safety: Call device within reach, ID band check, Allergy Band on, Night light, Non-Slip footwear Bed Standard Safety: Bed alert on, Bed in low position, Upper/Half-length side rails up, Wheels locked, HOB elevated Restraint DC Readiness Attempts: Pain management Restraint DC Intervention Status: Intervention attempted, not successful Right lateral 16 [place] Chest Tube Activity: Assess Chest Tube Connectivity: Water-Seal gravity Chest Tube Water Seal Chamber Desc: Absence of Bubbling Orientation Assessment Unable to evaluate Assistive Device Ceiling lift Positioning Repositioned right side Mobility Assistance Level Maximum assistance Activity Status ADL Lights dimmed, Resting Beds/Devices Hospital bed, turn and position system Assistive Equipment boot(s) on, elevated on pillows Activity Assistance Maximum assistance Sequential Compression Device bilateral thigh high applied/on Standard Safety Safety level maintained High Risk Safety Room check performed Special Call Device Unable to use call device Demonstrates Correct Call Light Use No Degrees Head of Bed Elevated 30 02/03/2024 1:30 EST Heart Rate Monitored 80 bpm Systolic Blood Pressure Non-Invasive 136 mmHg Diastolic Blood Pressure Non-Invasive 64 mmHg Mean Arterial Pressure (NBP) 83 mmHg 02/03/2024 1:14 EST Individuals Taught Patient Learning Readiness Willing to learn Barriers to Learning Acuity of illness Teaching Method Explanation Preferred Spoken Language Nigerien Preferred Written Language Nigerien Anticoag. Med Educated Heparin Reason/Purpose of Anticoagulant Treatment of DVT Anticoagulation Medication Bleeding precautions Anticoagulation Education Materials Other: Demonstrates Self Injection N/A Anticoag Med(s) Teaching Evaluation Needs further teaching 02/03/2024 1:13 EST Reason for PRN medication Not Done: See ICU flow (Not Done) Mechanical VTE Prophylaxis Education Not Done: See ICU flow (Not Done) Mechanical VTE Prophylaxis Education Not Done: See ICU flow (Not Done) Mechanical VTE Prophylaxis Education Not Done: See ICU flow (Not Done) Mechanical VTE Prophylaxis Education Not Done: See ICU flow (Not Done) Mechanical VTE Prophylaxis Education Not Done: See ICU flow (Not Done) Mechanical VTE Prophylaxis Education Not Done: See ICU flow (Not Done) Sequential Compression Device Not Done: See ICU flow (Not Done) Sequential Compression Device Not Done: See ICU flow (Not Done) Antiembolism Stockings Form Not Done (Not Done) Antiembolism Stockings Form Not Done (Not Done) Antiembolism Stockings Form Not Done (Not Done) Antiembolism Stockings Form Not Done (Not Done) PRN Medication Effectiveness Evaluation Not Done (Not Done) Sequential Compression Device Form Not Done (Not Done) Sequential Compression Device Form Not Done (Not Done) 02/03/2024 1:12 EST CAM Mental Status Change & Fluctuation Not Done: See ICU flow (Not Done) CAM Mental Status Change & Fluctuation Not Done: See ICU flow (Not Done) CAM Mental Status Change & Fluctuation Not Done: See ICU flow (Not Done) CAM Inattention Not Done: See ICU flow (Not Done) CAM Inattention Not Done: See ICU flow (Not Done) CAM Inattention Not Done: See ICU flow (Not Done) CAM Disorganized Thinking Not Done: See ICU flow (Not Done) CAM Disorganized Thinking Not Done: See ICU flow (Not Done) CAM Disorganized Thinking Not Done: See ICU flow (Not Done) CAM Altered Level of Consciousness Not Done: See ICU flow (Not Done) CAM Altered Level of Consciousness Not Done: See ICU flow (Not Done) CAM Altered Level of Consciousness Not Done: See ICU flow (Not Done) Confusion Assessment Method Score Not Done: See ICU flow (Not Done) Confusion Assessment Method Score Not Done: See ICU flow (Not Done) Confusion Assessment Method Score Not Done: See ICU flow (Not Done) Mechanical VTE Prophylaxis Education Not Done: See ICU flow (Not Done) Mechanical VTE Prophylaxis Education Not Done: See ICU flow (Not Done) Mechanical VTE Prophylaxis Education Not Done: See ICU flow (Not Done) Mechanical VTE Prophylaxis Education Not Done: See ICU flow (Not Done) Mechanical VTE Prophylaxis Education Not Done: See ICU flow (Not Done) Mechanical VTE Prophylaxis Education Not Done: See ICU flow (Not Done) Sequential Compression Device Not Done: See ICU flow (Not Done) Sequential Compression Device Not Done: See ICU flow (Not Done) Sequential Compression Device Not Done: See ICU flow (Not Done) Sequential Compression Device Not Done: See ICU flow (Not Done) Antiembolism Stockings Form Not Done (Not Done) Antiembolism Stockings Form Not Done (Not Done) Sequential Compression Device Form Not Done (Not Done) Sequential Compression Device Form Not Done (Not Done) Sequential Compression Device Form Not Done (Not Done) Sequential Compression Device Form Not Done (Not Done) 02/03/2024 1:00 EST Heart Rate Monitored 76 bpm Systolic Blood Pressure Non-Invasive 144 mmHg HI Diastolic Blood Pressure Non-Invasive 59 mmHg LOW Mean Arterial Pressure (NBP) 78 mmHg 02/03/2024 0:50 EST albuterol-ipratropium 3 mL mL 02/03/2024 0:49 EST Peripheral Pulse Rate 76 bpm Respiratory Rate 28 br/min HI Respirations Unlabored Breath Sounds Auscultated Anterior only All Lobes Breath Sounds Clear, Diminished Patient Effort Good Patient Participation in Treatment Cooperative Aerosol Delivery Device Small volume nebulizer Aerosol Treatment Route Inline Cough and Deep Breathe Not done Spontaneous Cough No FiO2 30 % Oxygen Saturation 94 % Respiratory Treatment Charge Aerosol treatment Level of Consciousness Alert 02/03/2024 0:48 EST Patient Airway Status Patent with support Cuffed endotracheal tube 8 01/21/2024 Endotracheal Tube Activity: Assessed Endotracheal Tube Placement: Oral, left ET Tube Insertion cm [place] at Lip: 26 cm Endotracheal Tube Position Confirmation: Breath sounds Endotracheal Tube Cuff Pressure: 22 cm/H2O Endotracheal Tube Cuff Pressure Method: Measured Endotracheal Tube Status: Patent, Secure, manufactured tube alfredo Endotracheal Tube Care: Repositioned 02/03/2024 0:46 EST Ventilator Mode (A/C) Assist/Control Ventilation Breath Type VC (Volume Control) Ventilator Frequency, Mandatory 24 br/min Tidal Volume, Delivered 0.500 L Positive End Expiratory Pressure 5 cmH20 Flow Trigger (range 0.3 - 15 L/min.) 2 L/min Inspiratory Time (TI) 0.7 second(s) Tube Compensation Off Auto Flow On Ventilator Model Drager [id number] Ventilator ID [id number] Vent FiO2 30 % Respiratory Rate Total 26 br/min HI Minute Volume 12.1 L/min Respiratory Rate, Spontaneous 2 br/min Inspiratory to Expiratory (I:E) Ratio 1:2.6 Tidal Volume, Exhaled 0.522 L Peak Inspiratory Pressure 31 cmH20 Plateau Pressure 18 cmH20 Mean Airway Pressure 12 Resuscitation Bag Available Yes Mask, Obturator, Syringe at bedside Yes Vent Alarms On and Functional Yes Vent Alarm High Pressure 45 cmH20 High Tidal Volume 1 Vent Alarm High Rate 40 br/min Vent Alarm Low Minute Volume 4 L/min Vent Alarm High Minute Volume 23 L/min HME (Heat & Moisture Exchanger) On 02/03/2024 0:00 EST Temperature Oral 37.8 DegC HI Heart Rate Monitored 86 bpm Respiratory Rate 25 br/min HI Systolic Blood Pressure Non-Invasive 155 mmHg HI Diastolic Blood Pressure Non-Invasive 56 mmHg LOW Mean Arterial Pressure (NBP) 79 mmHg Reason For Taking VItal Signs Routine Oral Care ICU Done Eye Care Done Sedation Level 0 Alert and Calm Intra-abdominal Pressure 11 Primary Pain Intensity 3 Primary Pain Nonverbal Response Nods No Pain Scale Type Behavioral pain scale Monitor Alarms On and Limits Checked Nail Bed Color [place] Capillary Refill < 2 seconds Heart Sounds ICU S1S2 Heart Rhythm Regular Dorsalis Pedis Pulse, Left 1+ Thready Dorsalis Pedis Pulse, Right 1+ [place] Posttibial Pulse, Left 1+ [place] Posttibial Pulse, Right 1+ [place] Radial Pulse, Left 2+ Normal Radial Pulse, Right 2+ Normal Generalized Edema Ratin+ moderate/6mm Hand edema Bilateral Edema Ratin+ mild/4mm (Modified) Cardiac Rhythm Sinus rhythm Monitoring Lead II, V1/MCL1 Alarms On and Functional Yes Heart Rate Alarm Set At - Low 50 Heart Rate Alarm Set At - High 120 NSBP Alarm Low 90 NSBP Alarm High 160 HI Respirations Unlabored Respiratory Pattern Regular Respiratory Pattern Detailed Vented Patient Airway Status Patent with support Breath Sounds Auscultated Anterior and posterior All Lobes Breath Sounds Clear, Diminished Suction Method Endotracheal Cough None Suction Device Inline suctioning Sputum Amount Small Sputum Color Cream Sputum Consistency Thick Ventilator Mode (A/C) Assist/Control Ventilation Ventilator Frequency, Mandatory 24 br/min Tidal Volume, Delivered 0.500 L Positive End Expiratory Pressure 5 cmH20 FiO2 30 % Vent FiO2 30 % Resuscitation Bag Available Yes Vent Alarms On and Functional Yes Oxygen Therapy Ventilator Oxygen Saturation 94 % Tracheal Position Midline Cuffed endotracheal tube 8 01/21/2024 Endotracheal Tube Activity: Assessed Endotracheal Tube Placement: Oral, right ET Tube Insertion cm [place] at Lip: 26 cm Endotracheal Tube Position Confirmation: Breath sounds Endotracheal Tube Cuff Pressure Method: Measured Endotracheal Tube Status: Patent, Secure, manufactured tube alfredo Endotracheal Tube Care: Oral care Abdomen Description Distended, Symmetric, Semi-firm (Modified) Abdomen Palpation Semi-firm (Modified) Abdomen Tender All quadrants Stool Color Brown Stool Description Incontinent, Medium amount, Loose Bowel Continence No bowel movement Bowel Sounds All Quadrants Present Nasogastric (NG) Nostril, left Gastrointestinal Tube Activity: Assessed Enteral Tube Insertion cm [place] at Nare: 78 cm Gastrointestinal Tube Care: Oral care Gastrointestinal Tube Dsg Condition: Clean, Dry, Intact Gastrointestinal Tube Dressing/Activity: Split gauze Gastrointestinal Tube Site Condition: No complications Tube Feeding Type: nepro Tube Feed Rate: 40 mL/hr Enteral Tube Flush: 15 mL Residual Amount: 100 mL Free Water: 500 mL Urinary Elimination Urinary catheter draining Urine Color Yellow Urine Description Medium amount Perineum Intact Urinary Elimination Devices Indwelling catheter Urethral Indwelling/Continuous 16 Fr 01/21/2024 Urinary Catheter Indication: ICU Patient-Hemodynamic instability Urinary Catheter Activity: Assessed Urinary Catheter Secured: Securement device on Urinary Catheter Drainage System: Dependent drainage bag Urinary Catheter Site Condition: No complications Facial Movement Makes facial grimaces Skin Symptoms Bruising Bilateral Upper Extremity Description [place], Normal for ethnicity Bilateral Lower Extremity Description [place] Skin Temperature Warm Skin Description [place], Normal for ethnicity, Dry Skin Integrity Not intact Skin Turgor Non-Elastic Mucous Membrane Color [place] Mucous Membrane Description Moist Skin Color General Usual for ethnicity Skin Moisture General Dry Abdomen Anterior Skin Abnormality Type: Surgical incision Incision, Wound Dressing/Activity: Assessed Incision, Wound Dressing Assessment: Clean, Dry, Intact Incision, Wound Dressing: ABD dressing pad Wound Status: No complications Abdomen Left Lateral Skin Abnormality Type: Tear Incision, Wound Dressing/Activity: Assessed Incision, Wound Dressing Assessment: Clean, Dry, Intact Wound Status: No complications Abdomen Right Multiple scattered Skin Abnormality Type: Procedure site Incision, Wound Dressing/Activity: Assessed Incision, Wound Dressing Assessment: Clean, Dry, Intact Wound Status: No complications [place] # 3 Abdomen Right Surgical Drain, Tube Activity: Assessed Surgical Drain, Tube Care: [place] collapsed Surgical Drain Site Condition: No complications Surgical Drain, Tube Dressing Condition: Clean, Dry, Intact Surgical Drain, Tube Dressing/Activity: Gauze Surgical Drain, Tube Drainage Method: Compression Surgical Drain, Tube - Tube Descr: Serosanguineous Continuous IV Infusions d5w@ 75 ml/hr Forearm Left 02/01/2024 20 gauge Peripheral IV Activity: Assessed Peripheral IV Dressing Condition: Clean, Dry, Intact Peripheral IV Dressing Activity: Transparent dressing Peripheral IV Line Status/Patency: Flushes easily Peripheral IV Line Care: Secured with tape Peripheral IV Site Condition: No complications Peripheral IV Equipment: IV Pump Forearm Right 02/01/2024 18 gauge Peripheral IV Activity: Assessed Peripheral IV Dressing Condition: Clean, Dry, Intact Peripheral IV Dressing Activity: Transparent dressing Peripheral IV Line Status/Patency: Flushes easily Peripheral IV Line Care: Secured with tape Peripheral IV Site Condition: No complications Peripheral IV Equipment: PRN Adaptor Neurological Language Follows simple commands Neurological Symptoms Patient denies Gait Unable to assess Extremity Movement Equal Characteristics of Communication Unable to speak, due to vent, Unable to assess Characteristics of Speech Unable to assess Facial Symmetry Symmetric Level of Consciousness Alert Eye Opening Response Nathan Spontaneously Best Motor Response [place] Obeys simple commands Best Verbal Response Nathan Oriented Nathan Coma Score 15 GALILEA Yes Left Pupil Description Regular Right Pupil Description Regular Left Pupil Reaction Brisk Right Pupil Reaction Brisk Pupil Size, Left 3 mm Pupil Size, Right 3 mm Strength All Extremities Weak Left Upper Extremity Sensation Intact Right Upper Extremity Sensation Intact Left Lower Extremity Sensation Intact Right Lower Extremity Sensation Intact CN V Facial Sensation Corneal reflex present CN VII Facial Expression and Symmetry Facial movement symmetrical CN VIII Hearing Unable to assess CN IX, X Swallowing, Gag Reflex Gag reflex absent Affect/Behavior Appropriate, Calm, Cooperative Orientation Follows simple commands Soft limb holders (Cloth) Wrist, bilateral Restraint Technique: Non Violent Restraint Restraint Activity Type: Continue restraint, same episode Behavior Requiring Non Violent Restraint Attempts to remove medical management devices Type of Medical Devices: Monitoring equipment, Tubes/drains, IV/arterial access, Airway management equipment Rationale for Restraint: Attempting to remove devices, despite current restraints Range of Motion: Repositioned Restraint Skin Assessment: Skin intact, Pulses intact Restraint Nutrition/Hydration: Tube feeding Restraint Hygiene/Elimination: Urinary catheter Other Standard Safety: Call device within reach, ID band check, Allergy Band on, Night light Bed Standard Safety: Bed alert on, Bed in low position, Upper/Half-length side rails up, Wheels locked, HOB elevated Restraint DC Readiness Attempts: Postitioning/Turning Restraint DC Intervention Status: Intervention attempted, not successful Right lateral 16 [place] Chest Tube Activity: Assess Chest Tube Connectivity: Water-Seal gravity Chest Tube Water Seal Chamber Desc: Absence of Bubbling Chest Tube Interventions: Clamps at bedside Chest Tube Drainage Description: Straw colored Chest Tube Dressing Activity: Reinforced Chest Tube Dressing Condition: Clean, Dry Chest Tube Dressing: Occlusive dressing, Pressure dressing Orientation Assessment Unable to evaluate Assistive Device Ceiling lift Positioning Repositioned back Mobility Assistance Level Maximum assistance Activity Status ADL Lights dimmed, Resting, Sleeping quietly with easy respirations Beds/Devices Hospital bed, turn and position system Assistive Equipment boot(s) on, elevated on pillows Activity Assistance Maximum assistance Sequential Compression Device right knee high applied/on Skin Care Preventative Intervention(s) heel(s)s elevated, turn and position system Preventative Dressing Location coccyx Preventative Dressing Intervention Intact Lorenza Care Greater than two assist Standard Safety ID band on, Allergy Band on, Call device within reach, Bed in low position, Wheels locked, Upper/Half-Length side-rails up, Phone within reach, personal items within reach, Assistive devices within reach, Toileting device within reach, Bedside Cart Locked High Risk Safety Identified as high risk, Fall ID band on, Room located near nursing station, Bed alert on, Door open, Bathroom light on, Non-Slip footwear, Reoriented, toileting offered, supervised while toileting, toileting refused Special Call Device Unable to use call device Demonstrates Correct Call Light Use No ocular lubricant Not Done: Not Appropriate at this Time (Not Done) Degrees Head of Bed Elevated 30 Stool Count 1 EA . Assessment and Plan [place] [employer] (ASA) physical status classification: Class IV. Anesthetic Preoperative Plan Anesthetic technique: General. Maintenance airway: Oral endotracheal tube. Postoperative pain management: Per surgeon. Risks discussed: nausea, vomiting, headache, sore throat, dental injury, hypotension, allergic reaction, serious complications. Informed consent: please see paper chart . Notes: Extensive time was spent discussing with the patient and/or POA the inherent risks of anesthesia including but not limited too sore throat, dental injuries to teeth and gums, corneal abrasions, risk of heart attack, stroke, end organ dysfunction, and . The patient and/or POA is aware ofthese risks, accepts them and wishes to proceed with anesthesia. 1. Acute respiratory failure requiring intubation 01/21/2024 with continued mechanical ventilation 2. Status post removal of wound VAC, abdominal exploration, closure of abdominal wall, MADDY drain x 5remain, 01/27 3. Pneumoperitoneum with bile leak status post robotic assisted diagnostic laparoscopic, exploratory lap, abdominal washout, extraction of abdominal wall with mesh, debridement of abdominal wall and placement of open abdominal wound VAC (01/21/2024), second look laparotomy, removal of wound VAC, debridement and closure of abdominal wall (01/23/2024) and exploratory lap, cholecystectomy, wound VACplacement, right side chest tube placement (01/24/2024) 4. Umbilical hernia status post robotic assisted umbilical hernia preperitoneal repair with mesh (01/20/2024) 5. Acute kidney injury, improving 6. Septic shock resolved 7. Atrial fibrillation RVR resolved, remains in sinus rhythm 8. DVT involving left gastrocnemius vein 9. Poor nutrition 10. Hypernatremia-improving 11. History of hypertension, diabetes mellitus, ALICIA on BiPAP, dyslipidemia, hypothyroidism, morbid obesity, daily alcohol use, and former smoker . Digitally Signed by LUISITO MCNEILL DO on 02/04/2024 10:59 AM * SANDER WHITE MD: PERFORM, SIGN, VERIFY Event Display: Anesthesiology Consultation Authored Date: Patient: CORINNE CORREA Age: 73 years Sex: Male : 1950 Associated Diagnoses: None Author: SANDER WHITE MD Postoperative Information Post Operative Info: Patient location. Post op day: Post Anesthesia Care Unit. Notes: SICU. Assessment Postanesthesia assessment Vitals: Vital signs from flowsheet : Vital Signs 01/28/2024 13:50 EDT Respiratory Rate - Anes 0 br/min br/min 01/28/2024 13:45 EDT Heart Rate Monitored 91 bpm Respiratory Rate 28 br/min HI Respiratory Rate - Anes 0 br/min br/min Systolic Blood Pressure Non-Invasive 152 mmHg HI Diastolic Blood Pressure Non-Invasive 58 mmHg LOW Mean Arterial Pressure (NBP) 82 mmHg Reason For Taking VItal Signs Procedure post-care 01/28/2024 13:37 EDT Systolic Blood Pressure Non-Invasive 157 mmHg mmHg Diastolic Blood Pressure Non-Invasive 61 mmHg mmHg 01/28/2024 13:35 EDT Heart Rate Monitored 90 bpm bpm Respiratory Rate - Anes 26 br/min br/min Systolic Blood Pressure Non-Invasive 150 mmHg mmHg Diastolic Blood Pressure Non-Invasive 63 mmHg mmHg 01/28/2024 13:32 EDT Systolic Blood Pressure Non-Invasive 135 mmHg mmHg Diastolic Blood Pressure Non-Invasive 66 mmHg mmHg 01/28/2024 13:30 EDT Heart Rate Monitored 84 bpm bpm Respiratory Rate - Anes 18 br/min br/min Systolic Blood Pressure Non-Invasive 125 mmHg mmHg Diastolic Blood Pressure Non-Invasive 62 mmHg mmHg 01/28/2024 13:26 EDT Systolic Blood Pressure Non-Invasive 116 mmHg mmHg Diastolic Blood Pressure Non-Invasive 58 mmHg mmHg 01/28/2024 13:25 EDT Temperature (Route Not Specified) 38.45 DegC DegC Heart Rate Monitored 83 bpm bpm Respiratory Rate - Anes 18 br/min br/min 01/28/2024 13:24 EDT Systolic Blood Pressure Non-Invasive 118 mmHg mmHg Diastolic Blood Pressure Non-Invasive 59 mmHg mmHg 01/28/2024 13:22 EDT Systolic Blood Pressure Non-Invasive 114 mmHg mmHg Diastolic Blood Pressure Non-Invasive 60 mmHg mmHg 01/28/2024 13:20 EDT Temperature (Route Not Specified) 38.46 DegC DegC Heart Rate Monitored 80 bpm bpm Respiratory Rate - Anes 18 br/min br/min Systolic Blood Pressure Non-Invasive 124 mmHg mmHg Diastolic Blood Pressure Non-Invasive 55 mmHg mmHg 01/28/2024 13:18 EDT Systolic Blood Pressure Non-Invasive 126 mmHg mmHg Diastolic Blood Pressure Non-Invasive 64 mmHg mmHg 01/28/2024 13:16 EDT Systolic Blood Pressure Non-Invasive 113 mmHg mmHg Diastolic Blood Pressure Non-Invasive 56 mmHg mmHg 01/28/2024 13:15 EDT Temperature (Route Not Specified) 38.48 DegC DegC Heart Rate Monitored 70 bpm bpm Respiratory Rate - Anes 18 br/min br/min 01/28/2024 13:14 EDT Systolic Blood Pressure Non-Invasive 84 mmHg mmHg Diastolic Blood Pressure Non-Invasive 49 mmHg mmHg 01/28/2024 13:12 EDT Systolic Blood Pressure Non-Invasive 99 mmHg mmHg Diastolic Blood Pressure Non-Invasive 52 mmHg mmHg 01/28/2024 13:10 EDT Temperature (Route Not Specified) 38.48 DegC DegC Heart Rate Monitored 64 bpm bpm Respiratory Rate - Anes 18 br/min br/min Systolic Blood Pressure Non-Invasive 83 mmHg mmHg Diastolic Blood Pressure Non-Invasive 43 mmHg mmHg 01/28/2024 13:08 EDT Systolic Blood Pressure Non-Invasive 97 mmHg mmHg Diastolic Blood Pressure Non-Invasive 53 mmHg mmHg 01/28/2024 13:06 EDT Systolic Blood Pressure Non-Invasive 94 mmHg mmHg Diastolic Blood Pressure Non-Invasive 51 mmHg mmHg 01/28/2024 13:05 EDT Temperature (Route Not Specified) 38.48 DegC DegC Heart Rate Monitored 64 bpm bpm Respiratory Rate - Anes 18 br/min br/min 01/28/2024 13:04 EDT Systolic Blood Pressure Non-Invasive 78 mmHg mmHg Diastolic Blood Pressure Non-Invasive 46 mmHg mmHg 01/28/2024 13:02 EDT Systolic Blood Pressure Non-Invasive 92 mmHg mmHg Diastolic Blood Pressure Non-Invasive 49 mmHg mmHg 01/28/2024 13:00 EDT Temperature (Route Not Specified) 38.46 DegC DegC Heart Rate Monitored 65 bpm bpm Respiratory Rate - Anes 18 br/min br/min Systolic Blood Pressure Non-Invasive 80 mmHg mmHg Diastolic Blood Pressure Non-Invasive 47 mmHg mmHg 01/28/2024 12:58 EDT Systolic Blood Pressure Non-Invasive 97 mmHg mmHg Diastolic Blood Pressure Non-Invasive 52 mmHg mmHg 01/28/2024 12:56 EDT Systolic Blood Pressure Non-Invasive 83 mmHg mmHg Diastolic Blood Pressure Non-Invasive 43 mmHg mmHg 01/28/2024 12:55 EDT Temperature (Route Not Specified) 38.45 DegC DegC Heart Rate Monitored 67 bpm bpm Respiratory Rate - Anes 18 br/min br/min 01/28/2024 12:54 EDT Systolic Blood Pressure Non-Invasive 100 mmHg mmHg Diastolic Blood Pressure Non-Invasive 49 mmHg mmHg 01/28/2024 12:51 EDT Systolic Blood Pressure Non-Invasive 83 mmHg mmHg Diastolic Blood Pressure Non-Invasive 46 mmHg mmHg 01/28/2024 12:50 EDT Temperature (Route Not Specified) 38.45 DegC DegC Heart Rate Monitored 70 bpm bpm Respiratory Rate - Anes 18 br/min br/min 01/28/2024 12:48 EDT Systolic Blood Pressure Non-Invasive 85 mmHg mmHg Diastolic Blood Pressure Non-Invasive 42 mmHg mmHg 01/28/2024 12:45 EDT Temperature (Route Not Specified) 38.45 DegC DegC Heart Rate Monitored 73 bpm bpm Respiratory Rate - Anes 18 br/min br/min Systolic Blood Pressure Non-Invasive 89 mmHg mmHg Diastolic Blood Pressure Non-Invasive 43 mmHg mmHg 01/28/2024 12:42 EDT Systolic Blood Pressure Non-Invasive 88 mmHg mmHg Diastolic Blood Pressure Non-Invasive 47 mmHg mmHg 01/28/2024 12:40 EDT Temperature (Route Not Specified) 38.47 DegC DegC Heart Rate Monitored 80 bpm bpm Respiratory Rate - Anes 15 br/min br/min 01/28/2024 12:39 EDT Systolic Blood Pressure Non-Invasive 99 mmHg mmHg Diastolic Blood Pressure Non-Invasive 50 mmHg mmHg 01/28/2024 12:36 EDT Systolic Blood Pressure Non-Invasive 108 mmHg mmHg Diastolic Blood Pressure Non-Invasive 51 mmHg mmHg 01/28/2024 12:35 EDT Temperature (Route Not Specified) 38.49 DegC DegC Heart Rate Monitored 77 bpm bpm Respiratory Rate - Anes 13 br/min br/min 01/28/2024 12:33 EDT Systolic Blood Pressure Non-Invasive 126 mmHg mmHg Diastolic Blood Pressure Non-Invasive 54 mmHg mmHg 01/28/2024 12:30 EDT Temperature (Route Not Specified) 38.45 DegC DegC Heart Rate Monitored 83 bpm bpm Respiratory Rate - Anes 10 br/min br/min Systolic Blood Pressure Non-Invasive 134 mmHg mmHg Diastolic Blood Pressure Non-Invasive 54 mmHg mmHg 01/28/2024 12:27 EDT Systolic Blood Pressure Non-Invasive 129 mmHg mmHg Diastolic Blood Pressure Non-Invasive 65 mmHg mmHg 01/28/2024 12:25 EDT Temperature (Route Not Specified) 38.68 DegC DegC Heart Rate Monitored 72 bpm bpm Respiratory Rate - Anes 10 br/min br/min 01/28/2024 12:24 EDT Systolic Blood Pressure Non-Invasive 98 mmHg mmHg Diastolic Blood Pressure Non-Invasive 54 mmHg mmHg 01/28/2024 12:21 EDT Systolic Blood Pressure Non-Invasive 103 mmHg mmHg Diastolic Blood Pressure Non-Invasive 43 mmHg mmHg 01/28/2024 12:20 EDT Temperature (Route Not Specified) 38.7 DegC DegC Heart Rate Monitored 71 bpm bpm Respiratory Rate - Anes 16 br/min br/min 01/28/2024 12:18 EDT Systolic Blood Pressure Non-Invasive 86 mmHg mmHg Diastolic Blood Pressure Non-Invasive 47 mmHg mmHg 01/28/2024 12:15 EDT Temperature (Route Not Specified) 38.7 DegC DegC Heart Rate Monitored 72 bpm bpm Respiratory Rate - Anes 26 br/min br/min Systolic Blood Pressure Non-Invasive 94 mmHg mmHg Diastolic Blood Pressure Non-Invasive 50 mmHg mmHg 01/28/2024 12:12 EDT Systolic Blood Pressure Non-Invasive 109 mmHg mmHg Diastolic Blood Pressure Non-Invasive 50 mmHg mmHg 01/28/2024 12:10 EDT Heart Rate Monitored 73 bpm bpm Respiratory Rate - Anes 22 br/min br/min 01/28/2024 12:09 EDT Systolic Blood Pressure Non-Invasive 104 mmHg mmHg Diastolic Blood Pressure Non-Invasive 57 mmHg mmHg 01/28/2024 12:06 EDT Systolic Blood Pressure Non-Invasive 140 mmHg mmHg Diastolic Blood Pressure Non-Invasive 51 mmHg mmHg 01/28/2024 12:05 EDT Heart Rate Monitored 80 bpm bpm Respiratory Rate - Anes 26 br/min br/min 01/28/2024 11:45 EDT Heart Rate Monitored 77 bpm 01/28/2024 11:41 EDT Temperature Oral 38.7 DegC >HHI Heart Rate Monitored 77 bpm Respiratory Rate 27 br/min HI Systolic Blood Pressure Non-Invasive 163 mmHg HI Diastolic Blood Pressure Non-Invasive 47 mmHg <LLOW Mean Arterial Pressure (NBP) 76 mmHg Reason For Taking VItal Signs Routine 01/28/2024 9:33 EDT Heart Rate Monitored 75 bpm Respiratory Rate 27 br/min HI Systolic Blood Pressure Non-Invasive 158 mmHg HI Diastolic Blood Pressure Non-Invasive 48 mmHg <LLOW Mean Arterial Pressure (NBP) 75 mmHg Reason For Taking VItal Signs Routine 01/28/2024 7:34 EDT Heart Rate Monitored 61 bpm Systolic Blood Pressure Non-Invasive 112 mmHg Diastolic Blood Pressure Non-Invasive 50 mmHg <LLOW Mean Arterial Pressure (NBP) 66 mmHg 01/28/2024 7:03 EDT Temperature Oral 36.8 DegC Apical Heart Rate 71 bpm Heart Rate Monitored 71 bpm Respiratory Rate 29 br/min HI Systolic Blood Pressure Non-Invasive 113 mmHg Diastolic Blood Pressure Non-Invasive 50 mmHg <LLOW Mean Arterial Pressure (NBP) 67 mmHg Reason For Taking VItal Signs Routine 01/28/2024 5:34 EDT Heart Rate Monitored 75 bpm Respiratory Rate 25 br/min HI Systolic Blood Pressure Non-Invasive 148 mmHg HI Diastolic Blood Pressure Non-Invasive 50 mmHg <LLOW Mean Arterial Pressure (NBP) 75 mmHg Reason For Taking VItal Signs Routine 01/28/2024 3:30 EDT Temperature Oral 36.8 DegC Heart Rate Monitored 66 bpm Respiratory Rate 28 br/min HI Systolic Blood Pressure Non-Invasive 102 mmHg Diastolic Blood Pressure Non-Invasive 48 mmHg <LLOW Mean Arterial Pressure (NBP) 63 mmHg Reason For Taking VItal Signs Routine 01/28/2024 3:00 EDT Apical Heart Rate Not Done: Not Appropriate at this Time (Not Done) 01/28/2024 1:30 EDT Heart Rate Monitored 71 bpm Respiratory Rate 24 br/min HI Systolic Blood Pressure Non-Invasive 115 mmHg Diastolic Blood Pressure Non-Invasive 48 mmHg <LLOW Mean Arterial Pressure (NBP) 65 mmHg Reason For Taking VItal Signs Routine 01/27/2024 23:30 EDT Temperature Oral 36.7 DegC Heart Rate Monitored 68 bpm Respiratory Rate 24 br/min HI Systolic Blood Pressure Non-Invasive 98 mmHg Diastolic Blood Pressure Non-Invasive 45 mmHg <LLOW Mean Arterial Pressure (NBP) 62 mmHg Reason For Taking VItal Signs Routine 01/27/2024 22:30 EDT Heart Rate Monitored 70 bpm Systolic Blood Pressure Non-Invasive 123 mmHg Diastolic Blood Pressure Non-Invasive 55 mmHg LOW Mean Arterial Pressure (NBP) 74 mmHg Reason For Taking VItal Signs Routine 01/27/2024 21:40 EDT Heart Rate Monitored 67 bpm Respiratory Rate 20 br/min Respiratory Rate 22 br/min HI Systolic Blood Pressure Non-Invasive 107 mmHg Diastolic Blood Pressure Non-Invasive 51 mmHg LOW Mean Arterial Pressure (NBP) 67 mmHg Reason For Taking VItal Signs Routine Reason For Taking VItal Signs Routine 01/27/2024 21:00 EDT Apical Heart Rate Not Done: Bradycardia (Not Done) 01/27/2024 20:30 EDT Temperature Oral 37.8 DegC HI Heart Rate Monitored 74 bpm Respiratory Rate 23 br/min HI Systolic Blood Pressure Non-Invasive 126 mmHg Diastolic Blood Pressure Non-Invasive 54 mmHg LOW Mean Arterial Pressure (NBP) 74 mmHg Reason For Taking VItal Signs Routine 01/27/2024 20:00 EDT Heart Rate Monitored 69 bpm Systolic Blood Pressure Non-Invasive 107 mmHg Diastolic Blood Pressure Non-Invasive 52 mmHg LOW Mean Arterial Pressure (NBP) 70 mmHg 01/27/2024 19:49 EDT Heart Rate Monitored 69 bpm Systolic Blood Pressure Non-Invasive 121 mmHg Diastolic Blood Pressure Non-Invasive 52 mmHg LOW Mean Arterial Pressure (NBP) 70 mmHg 01/27/2024 19:45 EDT Heart Rate Monitored 67 bpm Systolic Blood Pressure Non-Invasive 92 mmHg Diastolic Blood Pressure Non-Invasive 47 mmHg <LLOW Mean Arterial Pressure (NBP) 61 mmHg 01/27/2024 19:30 EDT Heart Rate Monitored 74 bpm Systolic Blood Pressure Non-Invasive 94 mmHg Diastolic Blood Pressure Non-Invasive 55 mmHg LOW Mean Arterial Pressure (NBP) 67 mmHg 01/27/2024 19:15 EDT Heart Rate Monitored 66 bpm Systolic Blood Pressure Non-Invasive 103 mmHg Diastolic Blood Pressure Non-Invasive 48 mmHg <LLOW Mean Arterial Pressure (NBP) 63 mmHg 01/27/2024 19:00 EDT Heart Rate Monitored 67 bpm Systolic Blood Pressure Non-Invasive 92 mmHg Diastolic Blood Pressure Non-Invasive 45 mmHg <LLOW Mean Arterial Pressure (NBP) 59 mmHg 01/27/2024 18:53 EDT Heart Rate Monitored 73 bpm Systolic Blood Pressure Non-Invasive 116 mmHg Diastolic Blood Pressure Non-Invasive 52 mmHg LOW Mean Arterial Pressure (NBP) 70 mmHg 01/27/2024 18:45 EDT Heart Rate Monitored 68 bpm Systolic Blood Pressure Non-Invasive 94 mmHg Diastolic Blood Pressure Non-Invasive 45 mmHg <LLOW Mean Arterial Pressure (NBP) 59 mmHg 01/27/2024 18:30 EDT Heart Rate Monitored 75 bpm Systolic Blood Pressure Non-Invasive 117 mmHg Diastolic Blood Pressure Non-Invasive 52 mmHg LOW Mean Arterial Pressure (NBP) 71 mmHg 01/27/2024 18:15 EDT Heart Rate Monitored 72 bpm Systolic Blood Pressure Non-Invasive 126 mmHg Diastolic Blood Pressure Non-Invasive 55 mmHg LOW Mean Arterial Pressure (NBP) 74 mmHg 01/27/2024 18:00 EDT Heart Rate Monitored 72 bpm Respiratory Rate 26 br/min HI Systolic Blood Pressure Non-Invasive 121 mmHg Diastolic Blood Pressure Non-Invasive 57 mmHg LOW Mean Arterial Pressure (NBP) 75 mmHg Reason For Taking VItal Signs Routine 01/27/2024 17:45 EDT Heart Rate Monitored 70 bpm Systolic Blood Pressure Non-Invasive 118 mmHg Diastolic Blood Pressure Non-Invasive 50 mmHg <LLOW Mean Arterial Pressure (NBP) 69 mmHg 01/27/2024 17:30 EDT Heart Rate Monitored 71 bpm Systolic Blood Pressure Non-Invasive 136 mmHg Diastolic Blood Pressure Non-Invasive 53 mmHg LOW Mean Arterial Pressure (NBP) 74 mmHg 01/27/2024 17:15 EDT Heart Rate Monitored 76 bpm Systolic Blood Pressure Non-Invasive 139 mmHg Diastolic Blood Pressure Non-Invasive 55 mmHg LOW Mean Arterial Pressure (NBP) 75 mmHg 01/27/2024 17:00 EDT Heart Rate Monitored 73 bpm Systolic Blood Pressure Non-Invasive 137 mmHg Diastolic Blood Pressure Non-Invasive 55 mmHg LOW Mean Arterial Pressure (NBP) 74 mmHg 01/27/2024 16:45 EDT Heart Rate Monitored 70 bpm Systolic Blood Pressure Non-Invasive 112 mmHg Diastolic Blood Pressure Non-Invasive 48 mmHg <LLOW Mean Arterial Pressure (NBP) 64 mmHg 01/27/2024 16:30 EDT Heart Rate Monitored 69 bpm Systolic Blood Pressure Non-Invasive 136 mmHg Diastolic Blood Pressure Non-Invasive 56 mmHg LOW Mean Arterial Pressure (NBP) 77 mmHg 01/27/2024 16:15 EDT Apical Heart Rate 81 bpm Heart Rate Monitored 83 bpm Systolic Blood Pressure Non-Invasive 142 mmHg HI Diastolic Blood Pressure Non-Invasive 51 mmHg LOW Mean Arterial Pressure (NBP) 76 mmHg 01/27/2024 16:00 EDT Heart Rate Monitored 87 bpm Systolic Blood Pressure Non-Invasive 139 mmHg Diastolic Blood Pressure Non-Invasive 51 mmHg LOW Mean Arterial Pressure (NBP) 76 mmHg 01/27/2024 15:57 EDT Temperature Oral 36.7 DegC Heart Rate Monitored 85 bpm Respiratory Rate 27 br/min HI Systolic Blood Pressure Non-Invasive 134 mmHg Diastolic Blood Pressure Non-Invasive 50 mmHg <LLOW Mean Arterial Pressure (NBP) 74 mmHg Reason For Taking VItal Signs Routine 01/27/2024 15:45 EDT Heart Rate Monitored 85 bpm Systolic Blood Pressure Non-Invasive 138 mmHg Diastolic Blood Pressure Non-Invasive 58 mmHg LOW Mean Arterial Pressure (NBP) 80 mmHg 01/27/2024 15:40 EDT Heart Rate Monitored 81 bpm Systolic Blood Pressure Non-Invasive 145 mmHg HI Diastolic Blood Pressure Non-Invasive 56 mmHg LOW Mean Arterial Pressure (NBP) 80 mmHg Reason For Taking VItal Signs In Error (In Error) 01/27/2024 15:36 EDT Heart Rate Monitored 81 bpm Systolic Blood Pressure Non-Invasive 142 mmHg HI Diastolic Blood Pressure Non-Invasive 55 mmHg LOW Mean Arterial Pressure (NBP) 79 mmHg 01/27/2024 15:15 EDT Heart Rate Monitored 80 bpm Systolic Blood Pressure Non-Invasive 146 mmHg HI Diastolic Blood Pressure Non-Invasive 59 mmHg LOW Mean Arterial Pressure (NBP) 82 mmHg 01/27/2024 14:58 EDT Heart Rate Monitored 76 bpm Systolic Blood Pressure Non-Invasive 116 mmHg Diastolic Blood Pressure Non-Invasive 54 mmHg LOW Mean Arterial Pressure (NBP) 71 mmHg 01/27/2024 14:46 EDT Heart Rate Monitored 74 bpm Systolic Blood Pressure Non-Invasive 127 mmHg Diastolic Blood Pressure Non-Invasive 54 mmHg LOW Mean Arterial Pressure (NBP) 73 mmHg 01/27/2024 14:38 EDT Heart Rate Monitored 72 bpm Respiratory Rate 24 br/min HI Systolic Blood Pressure Non-Invasive 123 mmHg Diastolic Blood Pressure Non-Invasive 55 mmHg LOW Mean Arterial Pressure (NBP) 74 mmHg Reason For Taking VItal Signs In Error (In Error) 01/27/2024 13:28 EDT Heart Rate Monitored 71 bpm Systolic Blood Pressure Non-Invasive 95 mmHg Diastolic Blood Pressure Non-Invasive 45 mmHg <LLOW Mean Arterial Pressure (NBP) 59 mmHg 01/27/2024 13:22 EDT Heart Rate Monitored 77 bpm Respiratory Rate 24 br/min HI Systolic Blood Pressure Non-Invasive 101 mmHg Diastolic Blood Pressure Non-Invasive 47 mmHg <LLOW Mean Arterial Pressure (NBP) 63 mmHg Reason For Taking VItal Signs Routine 01/27/2024 13:15 EDT Heart Rate Monitored 70 bpm Systolic Blood Pressure Non-Invasive 94 mmHg Diastolic Blood Pressure Non-Invasive 50 mmHg <LLOW Mean Arterial Pressure (NBP) 63 mmHg 01/27/2024 13:10 EDT Heart Rate Monitored 76 bpm Systolic Blood Pressure Non-Invasive 84 mmHg LOW Diastolic Blood Pressure Non-Invasive 44 mmHg <LLOW Mean Arterial Pressure (NBP) 57 mmHg 01/27/2024 12:52 EDT Heart Rate Monitored 67 bpm Systolic Blood Pressure Non-Invasive 115 mmHg Diastolic Blood Pressure Non-Invasive 76 mmHg Mean Arterial Pressure (NBP) 87 mmHg 01/27/2024 12:30 EDT Heart Rate Monitored 64 bpm Systolic Blood Pressure Non-Invasive 113 mmHg Diastolic Blood Pressure Non-Invasive 52 mmHg LOW Mean Arterial Pressure (NBP) 70 mmHg 01/27/2024 12:00 EDT Heart Rate Monitored 62 bpm Systolic Blood Pressure Non-Invasive 110 mmHg Diastolic Blood Pressure Non-Invasive 55 mmHg LOW Mean Arterial Pressure (NBP) 71 mmHg 01/27/2024 11:45 EDT Heart Rate Monitored 60 bpm Systolic Blood Pressure Non-Invasive 114 mmHg Diastolic Blood Pressure Non-Invasive 55 mmHg LOW Mean Arterial Pressure (NBP) 72 mmHg 01/27/2024 11:30 EDT Heart Rate Monitored 58 bpm LOW Systolic Blood Pressure Non-Invasive 114 mmHg Diastolic Blood Pressure Non-Invasive 57 mmHg LOW Mean Arterial Pressure (NBP) 74 mmHg 01/27/2024 11:21 EDT Temperature Oral 36.5 DegC Heart Rate Monitored 56 bpm LOW Respiratory Rate 25 br/min HI Systolic Blood Pressure Non-Invasive 112 mmHg Diastolic Blood Pressure Non-Invasive 56 mmHg LOW Mean Arterial Pressure (NBP) 73 mmHg Reason For Taking VItal Signs Routine 01/27/2024 11:15 EDT Heart Rate Monitored 56 bpm LOW Systolic Blood Pressure Non-Invasive 111 mmHg Diastolic Blood Pressure Non-Invasive 57 mmHg LOW Mean Arterial Pressure (NBP) 73 mmHg 01/27/2024 11:06 EDT Heart Rate Monitored 56 bpm LOW Systolic Blood Pressure Non-Invasive 114 mmHg Diastolic Blood Pressure Non-Invasive 56 mmHg LOW Mean Arterial Pressure (NBP) 73 mmHg 01/27/2024 11:01 EDT Heart Rate Monitored 55 bpm LOW Systolic Blood Pressure Non-Invasive 93 mmHg Diastolic Blood Pressure Non-Invasive 54 mmHg LOW Mean Arterial Pressure (NBP) 66 mmHg 01/27/2024 10:51 EDT Heart Rate Monitored 57 bpm LOW Systolic Blood Pressure Non-Invasive 67 mmHg LOW Diastolic Blood Pressure Non-Invasive 39 mmHg <LLOW Mean Arterial Pressure (NBP) 49 mmHg 01/27/2024 10:45 EDT Heart Rate Monitored 59 bpm LOW Systolic Blood Pressure Non-Invasive 67 mmHg LOW Diastolic Blood Pressure Non-Invasive 46 mmHg <LLOW Mean Arterial Pressure (NBP) 53 mmHg 01/27/2024 10:08 EDT Heart Rate Monitored 60 bpm Systolic Blood Pressure Non-Invasive 104 mmHg Diastolic Blood Pressure Non-Invasive 61 mmHg Mean Arterial Pressure (NBP) 74 mmHg 01/27/2024 9:50 EDT Apical Heart Rate 68 bpm Heart Rate Monitored 66 bpm Respiratory Rate 24 br/min HI Systolic Blood Pressure Non-Invasive 108 mmHg Diastolic Blood Pressure Non-Invasive 54 mmHg LOW Mean Arterial Pressure (NBP) 70 mmHg Reason For Taking VItal Signs Routine 01/27/2024 8:45 EDT Heart Rate Monitored 70 bpm Systolic Blood Pressure Non-Invasive 102 mmHg Diastolic Blood Pressure Non-Invasive 51 mmHg LOW Mean Arterial Pressure (NBP) 66 mmHg 01/27/2024 8:32 EDT Heart Rate Monitored 72 bpm Systolic Blood Pressure Non-Invasive 128 mmHg Diastolic Blood Pressure Non-Invasive 55 mmHg LOW Mean Arterial Pressure (NBP) 76 mmHg 01/27/2024 8:15 EDT Heart Rate Monitored 65 bpm Systolic Blood Pressure Non-Invasive 96 mmHg Diastolic Blood Pressure Non-Invasive 48 mmHg <LLOW Mean Arterial Pressure (NBP) 63 mmHg 01/27/2024 8:01 EDT Heart Rate Monitored 79 bpm Systolic Blood Pressure Non-Invasive 134 mmHg Diastolic Blood Pressure Non-Invasive 70 mmHg Mean Arterial Pressure (NBP) 89 mmHg 01/27/2024 7:15 EDT Temperature Oral 36.9 DegC Heart Rate Monitored 77 bpm Respiratory Rate 24 br/min HI Systolic Blood Pressure Non-Invasive 136 mmHg Diastolic Blood Pressure Non-Invasive 63 mmHg Mean Arterial Pressure (NBP) 83 mmHg Reason For Taking VItal Signs Routine 01/27/2024 7:01 EDT Heart Rate Monitored 61 bpm Systolic Blood Pressure Non-Invasive 123 mmHg Diastolic Blood Pressure Non-Invasive 61 mmHg Mean Arterial Pressure (NBP) 77 mmHg 01/27/2024 6:45 EDT Heart Rate Monitored 72 bpm Systolic Blood Pressure Non-Invasive 135 mmHg Diastolic Blood Pressure Non-Invasive 66 mmHg Mean Arterial Pressure (NBP) 86 mmHg 01/27/2024 6:30 EDT Heart Rate Monitored 68 bpm Systolic Blood Pressure Non-Invasive 137 mmHg Diastolic Blood Pressure Non-Invasive 71 mmHg Mean Arterial Pressure (NBP) 87 mmHg 01/27/2024 6:15 EDT Heart Rate Monitored 58 bpm LOW Systolic Blood Pressure Non-Invasive 110 mmHg Diastolic Blood Pressure Non-Invasive 64 mmHg Mean Arterial Pressure (NBP) 77 mmHg 01/27/2024 6:09 EDT Heart Rate Monitored 68 bpm Systolic Blood Pressure Non-Invasive 102 mmHg Diastolic Blood Pressure Non-Invasive 57 mmHg LOW Mean Arterial Pressure (NBP) 71 mmHg 01/27/2024 6:00 EDT Heart Rate Monitored 62 bpm Systolic Blood Pressure Non-Invasive 69 mmHg LOW Diastolic Blood Pressure Non-Invasive 44 mmHg <LLOW Mean Arterial Pressure (NBP) 52 mmHg 01/27/2024 5:45 EDT Heart Rate Monitored 59 bpm LOW Systolic Blood Pressure Non-Invasive 76 mmHg LOW Diastolic Blood Pressure Non-Invasive 44 mmHg <LLOW Mean Arterial Pressure (NBP) 55 mmHg 01/27/2024 5:30 EDT Heart Rate Monitored 74 bpm Systolic Blood Pressure Non-Invasive 109 mmHg Diastolic Blood Pressure Non-Invasive 56 mmHg LOW Mean Arterial Pressure (NBP) 72 mmHg 01/27/2024 5:16 EDT Heart Rate Monitored 70 bpm Respiratory Rate 24 br/min HI Systolic Blood Pressure Non-Invasive 101 mmHg Diastolic Blood Pressure Non-Invasive 57 mmHg LOW Mean Arterial Pressure (NBP) 72 mmHg Reason For Taking VItal Signs Routine 01/27/2024 4:45 EDT Heart Rate Monitored 68 bpm Systolic Blood Pressure Non-Invasive 106 mmHg Diastolic Blood Pressure Non-Invasive 52 mmHg LOW Mean Arterial Pressure (NBP) 68 mmHg 01/27/2024 4:30 EDT Heart Rate Monitored 67 bpm Systolic Blood Pressure Non-Invasive 97 mmHg Diastolic Blood Pressure Non-Invasive 49 mmHg <LLOW Mean Arterial Pressure (NBP) 64 mmHg 01/27/2024 4:29 EDT Heart Rate Monitored 68 bpm Respiratory Rate 25 br/min HI 01/27/2024 4:15 EDT Heart Rate Monitored 67 bpm Systolic Blood Pressure Non-Invasive 101 mmHg Diastolic Blood Pressure Non-Invasive 48 mmHg <LLOW Mean Arterial Pressure (NBP) 64 mmHg 01/27/2024 4:00 EDT Heart Rate Monitored 66 bpm Systolic Blood Pressure Non-Invasive 95 mmHg Diastolic Blood Pressure Non-Invasive 44 mmHg <LLOW Mean Arterial Pressure (NBP) 59 mmHg 01/27/2024 3:45 EDT Heart Rate Monitored 70 bpm Systolic Blood Pressure Non-Invasive 127 mmHg Diastolic Blood Pressure Non-Invasive 65 mmHg Mean Arterial Pressure (NBP) 83 mmHg 01/27/2024 3:35 EDT Temperature Oral 36.9 DegC Heart Rate Monitored 67 bpm Respiratory Rate 28 br/min HI Systolic Blood Pressure Non-Invasive 121 mmHg Diastolic Blood Pressure Non-Invasive 66 mmHg Mean Arterial Pressure (NBP) 81 mmHg Reason For Taking VItal Signs Routine 01/27/2024 3:19 EDT Apical Heart Rate Not Done: Not Appropriate at this Time (Not Done) 01/27/2024 3:10 EDT Heart Rate Monitored 65 bpm Systolic Blood Pressure Non-Invasive 95 mmHg Diastolic Blood Pressure Non-Invasive 51 mmHg LOW Mean Arterial Pressure (NBP) 65 mmHg 01/27/2024 2:50 EDT Heart Rate Monitored 71 bpm Respiratory Rate 28 br/min HI Systolic Blood Pressure Non-Invasive 106 mmHg Diastolic Blood Pressure Non-Invasive 79 mmHg Mean Arterial Pressure (NBP) 73 mmHg Reason For Taking VItal Signs Routine 01/27/2024 2:40 EDT Heart Rate Monitored 68 bpm Systolic Blood Pressure Non-Invasive 75 mmHg LOW Diastolic Blood Pressure Non-Invasive 46 mmHg <LLOW Mean Arterial Pressure (NBP) 55 mmHg Reason For Taking VItal Signs Routine 01/27/2024 2:19 EDT Heart Rate Monitored 72 bpm Systolic Blood Pressure Non-Invasive 99 mmHg Diastolic Blood Pressure Non-Invasive 47 mmHg <LLOW Mean Arterial Pressure (NBP) 63 mmHg Reason For Taking VItal Signs Routine 01/27/2024 1:30 EDT Heart Rate Monitored 75 bpm Systolic Blood Pressure Non-Invasive 99 mmHg Diastolic Blood Pressure Non-Invasive 56 mmHg LOW Mean Arterial Pressure (NBP) 69 mmHg Reason For Taking VItal Signs Routine 01/27/2024 1:16 EDT Heart Rate Monitored 77 bpm Respiratory Rate 29 br/min HI Systolic Blood Pressure Non-Invasive 116 mmHg Diastolic Blood Pressure Non-Invasive 55 mmHg LOW Mean Arterial Pressure (NBP) 71 mmHg Blood Pressure Method Automatic Blood Pressure Location Left arm Reason For Taking VItal Signs Routine 01/27/2024 0:50 EDT Heart Rate Monitored 83 bpm Systolic Blood Pressure Non-Invasive 138 mmHg Diastolic Blood Pressure Non-Invasive 64 mmHg Mean Arterial Pressure (NBP) 83 mmHg Reason For Taking VItal Signs Routine 01/27/2024 0:15 EDT Heart Rate Monitored 147 bpm HI Heart Rate Monitored 147 bpm HI Respiratory Rate 24 br/min HI Respiratory Rate 28 br/min HI Systolic Blood Pressure Invasive 82 mmHg LOW Diastolic Blood Pressure Invasive 78 mmHg Mean Arterial Pressure (Line) 79 mmHg Reason For Taking VItal Signs Routine 01/27/2024 0:00 EDT Heart Rate Monitored 145 bpm HI Respiratory Rate 24 br/min HI Systolic Blood Pressure Non-Invasive 145 mmHg HI Diastolic Blood Pressure Non-Invasive 87 mmHg Mean Arterial Pressure (NBP) 99 mmHg Blood Pressure Method Automatic Blood Pressure Location Left arm . Mental status: Intubated and sedated. Respiratory function: Stable on vent. Respiratory support: Ventilator per ICU management. CV function: Stable. Cardiovascular support: none. Pain: Satisfactory. Nausea status: Satisfactory. Postoperative hydration status: within normal limits. Notes: No follow-up care needed. No complications post-anesthesia., Report given to SICU personnel. Digitally Signed by SANDER WHITE MD on 01/28/2024 02:20 PM * SANDER WHITE MD: PERFORM, MODIFY, SIGN, VERIFY Event Display: Anesthesiology Consultation Authored Date: Patient: CORINNE CORREA Age: 73 years Sex: Male : 1950 Associated Diagnoses: None Author: SANDER WHITE MD Preoperative Information greater than 8 hours Anesthesia history Patient's history: negative. Family's history: negative. Health Status Allergies: Allergic Reactions (All) NKA, Allergies (1) ActiveSeverityReaction NKANone Documented Current medications: (Selected) Inpatient Medications Ordered D10W 1,000 mL: at current rate if TPN is interrupted, Intravenous Dexmedetomidine for IV 400 mcg [0.2 mcg/kg/hr] + Sodium Chloride 0.9% intravenous solution 96 mL...: 6.36 mL/hr, Intravenous Dextrose: 25 g, 50 mL, IV Push, AsDirected, PRN: Low blood sugar Diuril IV Push syinge: 500 mg, IV Push (INT), Once HumuLIN R: sliding scale insulin, Subcutaneous, q4h, PRN: Protocol, glycemic control Insulin Regular for IV 100 unit(s) + NS Premix Diluent 100 mL: Sliding Scale Insulin, Intravenous Lopressor IV: 5 mg, 5 mL, IV Push, q6hr Norepinephrine for IV 8 mg [5 mcg/min] + NS PMX titrate 250 mL: 9.38 mL/hr, Intravenous Peridex 0.12% oral rinse liquid: 15 mL, Swish & Spit, QID Propofol for IV 1,000 mg [10 mcg/kg/min] + IV Premix Diluent titrate 100 mL: 7.32 mL/hr, Intravenous Protonix IV Push: 40 mg, IV Push, BIDAC Puralube ophth solution: 1 drop(s), Eyes, both, AsDirected, PRN: Protocol, eye care Puralube ophth solution: 1 drop(s), Eyes, both, q8h Puralube ophthalmic ointment: 1 mendy, Eyes, both, AsDirected, PRN: Protocol, eye care Puralube ophthalmic ointment: 1 mendy, Eyes, both, q8h Sublimaze: 50 mcg, 1 mL, IV Push, q15min, PRN: BPS/TELEGRAPH DISPATCHER TPN Standard Central 3 - 1 1,920 mL + Amino Acids (%) for TPN 6 % + Dextrose (%) for TPN 15 % + Lip...: 80 mL/hr, Intravenous Zosyn: 3.375 gram(s), 50 mL, 12.5 mL/hr, IV Piggyback, q8h heparin 5000 units/mL injection: 5,000 unit(s), 1 mL, Subcutaneous, q8h micafungin: 100 mg, 100 mL/hr, IV Piggyback, q24h Prescriptions Prescribed Farxiga 10 mg oral tablet: 10 mg, 1 tab(s), Oral, qDay, 90 tab(s), 3 Refill(s) MetFORMIN (Eqv-Glucophage XR) 500 mg oral tablet, EXTENDED RELEASE: 1,000 mg, 2 tab(s), Oral, BID, 360 tab(s), 2 Refill(s) Ozempic 4 mg/3 mL (1 mg dose) subcutaneous solution: 1 mg, Subcutaneous, qWeek, 9 mL, 1 Refill(s) amLODIPine 5 mg oral tablet: 5 mg, 1 tab(s), Oral, qDay, 90 tab(s), 3 Refill(s) atorvastatin 20 mg oral tablet: 20 mg, 1 tab(s), Oral, qDay, for 90 day(s), 90 tab(s), 1 Refill(s) levothyroxine 25 mcg (0.025 mg) oral tablet: 50 mcg, 2 tab(s), Oral, qDay, for 90 day(s), 180 tab(s), 1 Refill(s) losartan 100 mg oral tablet: 100 mg, 1 tab(s), Oral, qDay, for 90 day(s), 90 tab(s), 1 Refill(s) metoprolol succinate 25 mg oral TABLET extended release: 25 mg, 1 tab(s), Oral, qDay, for 90 day(s), Do not crush or chew (controlled release), 90 tab(s), 1 Refill(s) Documented Medications Documented HumaLOG Mix 50/50 KwikPen 3 mL PEN: 15 unit(s), Subcutaneous, BID, 3 mL, 0 Refill(s) Vitamin D (3) 45 units oral capsule: 0 Refill(s) Vitamin D with Minerals oral tablet: 1 tab(s), Oral, qDay, 30 tab(s), 0 Refill(s), Medications (20) Active Scheduled: (9) chlorhexidine topical 0.12% Liquid (60 mL) 15 mL, Swish & Spit, QID chlorothiazide 500 mg, IV Push (INT), Once heparin 5,000 units/mL (1 mL) vial 5,000 unit(s) 1 mL, Subcutaneous, q8h metoprolol 1 mg/mL (5mL) vial 5 mg 5 mL, IV Push, q6hr micafungin 100 mg, IV Piggyback, q24h ocular lubricant - Ointment 3.5 gram(s) 1 mendy, Eyes, both, q8h ocular lubricant preserved Soln 15 mL 1 drop(s), Eyes, both, q8h pantoprazole 40 mg VIAL 40 mg, IV Push, BIDAC piperacillin-tazobactam PMX 3.375 gram(s) 50 mL, IV Piggyback, q8h Continuous: (6) D10W 1,000 mL 1,000 mL, Intravenous dexmedetomidine 400 mcg [0.2 mcg/kg/hr] + Sodium Chloride 0.9% 96 mL 96 mL, Intravenous, 6.36 mL/hr insulin regular 100 unit(s) + NS Premix Diluent 100 mL 100 mL, Intravenous norepinephrine 8 mg [5 mcg/min] + NS Premix Diluent 250 mL 250 mL, Intravenous, 9.38 mL/hr propofol 1,000 mg [10 mcg/kg/min] + IV Premix Diluent 100 mL 100 mL, Intravenous, 7.32 mL/hr TPN 1,920 mL + amino acids in TPN 6 % + dextrose in TPN 15 % + lipids in TPN 3 % + trace elements i1,920 mL, Intravenous, 80 mL/hr PRN: (5) dextrose 50% Solution Disp syringe 50 mL 25 g 50 mL, IV Push, AsDirected fentaNYL 50 mcg/mL (2mL) ampule 50 mcg 1 mL, IV Push, q15min insulin regular human recombinant 100 units/ml (10 mL) Solution sliding scale insulin, Subcutaneous, q4h ocular lubricant - Ointment 3.5 gram(s) 1 mendy, Eyes, both, AsDirected ocular lubricant preserved Soln 15 mL 1 drop(s), Eyes, both, AsDirected Problem list: Medical Hypothyroidism in adult / SNOMED CT 25749926 / Confirmed HTN, goal below 140/90 / SNOMED CT 8163089621 / Confirmed Hyperlipidemia LDL goal <100 / SNOMED CT 07545731 / Confirmed Screening for prostate cancer / SNOMED CT 468046197 / Confirmed Vitamin D deficiency / SNOMED CT 01654586 / Confirmed DM type 2, goal HbA1c < 7.5% / SNOMED CT 527801106 / Confirmed Medicare annual wellness visit, subsequent / SNOMED CT 922739925 / Confirmed History of basal cell carcinoma (BCC) of skin, nose / SNOMED CT 9189416023 / Confirmed Increased BMI (body mass index) / SNOMED CT 93115877 / Confirmed History of COVID-19 / SNOMED CT 2146069385 / Confirmed Hernia centeral/midline, ventricle (large) / SNOMED CT 3845157434 / Confirmed History of ventral hernia / SNOMED CT 535016595 / Confirmed Screening for abdominal aortic aneurysm / SNOMED CT 882751710 / Confirmed Screening for cardiovascular condition / SNOMED CT 387118690 / Confirmed Screening for glaucoma / SNOMED CT 867998303 / Confirmed Screening for colorectal cancer / SNOMED CT 409245326 / Confirmed Non-smoker / SNOMED CT 83008152 / Confirmed Laceration of skin of right hand / SNOMED CT 3735554605 / Confirmed Increased BMI / SNOMED CT 81950023 / Confirmed Risk and functional assessment / SNOMED CT 704051720 / Confirmed Hernia, umbilical / SNOMED CT 3828189544 / Confirmed, Active Problems (21) DM type 2, goal HbA1c < 7.5% Hernia centeral/midline, ventricle (large) Hernia, umbilical History of basal cell carcinoma (BCC) of skin, nose History of COVID-19 History of ventral hernia HTN, goal below 140/90 Hyperlipidemia LDL goal <100 Hypothyroidism in adult Increased BMI Increased BMI (body mass index) Laceration of skin of right hand Medicare annual wellness visit, subsequent Non-smoker Risk and functional assessment Screening for abdominal aortic aneurysm Screening for cardiovascular condition Screening for colorectal cancer Screening for glaucoma Screening for prostate cancer Vitamin D deficiency Histories Past Medical History: Resolved Overweight ([id number]): Resolved. Basal cell carcinoma of nose ([id number]): Resolved. COVID-19 virus infection ([id number]): Resolved. Family History: Hypertension Mother Father Heart disease Father Stroke Sister Hodgkin disease Sister Procedure history: Laparotomy ([id number]) on 01/24/2024 at 73 Years. Comments: 01/28/2024 7:56 Mary Turner LPN Abdominal Laparotomy, EXPLORATORY LAPAROTOMY WITH APTHORA PLACEMENT. CHOLECYSTECTOMY. OP EGD with Anesthesia, ESAAGOGASTRODUODENOSCOPY WITH ANESTHESIA Cholecystectomy ([id number]) on 01/24/2024 at 73 Years. Comments: 01/28/2024 7:55 Mary Turner LPN CHOLECYSTECTOMY Laparotomy ([id number]) on 01/21/2024 at 73 Years. Comments: 01/23/2024 10:34 Mary Turner LPN ROBOTIC ASSISTED DIAGNOSTIC LAPAROSCOPY EXPLORATORY LAPAROTOMY; ABDOMINAL WASHOUT, EXTRACTION OF ABDOMINAL WALL MESH; DEBRIDEMENT OF ABDOMINAL WALL; PLACEMENT OF ABTHERA OPEN ABDOMINAL WOUND VAC. Hernia repair ([id number]) on 01/20/2024 at 73 Years. Comments: 01/20/2024 12:49 Mary Turner LPN ROBOTIC ASSISTED UMBILICAL HERNIA PREPERITONEAL REPAIR WITH MESH Colonoscopy ([id number]) on 09/29/2008 at 58 Years. Hernia ([id number]). Surgery ([id number]). Comments: 11/10/2020 14:07 Bernarda Finch LPN Right hand Surgery ([id number]). Comments: 11/10/2020 14:07 Bernarda Finch LPN Achilles tendon Social History: Social & Psychosocial Habits Alcohol 01/20/2024 Use: Current Type: Liquor Frequency: Daily Has alcohol use interfered with work or home life: No Comment: 2 shots every day - 01/20/2024 16:18 - Gudelia Sanderson RN Substance Abuse 01/20/2024 Use: Never Tobacco 01/20/2024 Tobacco Use: Former smoker, quit more Type: Cigarettes Number of years: 30 Home/Environment 01/20/2024 Living situation: Home/Independent Domestic Concerns None Lives In Multilevel home Spouse Name JESSICA Marital Status of Patient if Patient Independent Adult: Nutrition/Health 01/20/2024 Type of diet: Diabetic Caffeine intake amount: Pop Eating Difficulties None Physical Examination Vital Signs 01/28/2024 9:33 EDT Heart Rate Monitored 75 bpm Respiratory Rate 27 br/min HI Systolic Blood Pressure Non-Invasive 158 mmHg HI Diastolic Blood Pressure Non-Invasive 48 mmHg <LLOW Mean Arterial Pressure (NBP) 75 mmHg Reason For Taking VItal Signs Routine 01/28/2024 7:34 EDT Heart Rate Monitored 61 bpm Systolic Blood Pressure Non-Invasive 112 mmHg Diastolic Blood Pressure Non-Invasive 50 mmHg <LLOW Mean Arterial Pressure (NBP) 66 mmHg 01/28/2024 7:03 EDT Temperature Oral 36.8 DegC Apical Heart Rate 71 bpm Heart Rate Monitored 71 bpm Respiratory Rate 29 br/min HI Systolic Blood Pressure Non-Invasive 113 mmHg Diastolic Blood Pressure Non-Invasive 50 mmHg <LLOW Mean Arterial Pressure (NBP) 67 mmHg Reason For Taking VItal Signs Routine 01/28/2024 5:34 EDT Heart Rate Monitored 75 bpm Respiratory Rate 25 br/min HI Systolic Blood Pressure Non-Invasive 148 mmHg HI Diastolic Blood Pressure Non-Invasive 50 mmHg <LLOW Mean Arterial Pressure (NBP) 75 mmHg Reason For Taking VItal Signs Routine 01/28/2024 3:30 EDT Temperature Oral 36.8 DegC Heart Rate Monitored 66 bpm Respiratory Rate 28 br/min HI Systolic Blood Pressure Non-Invasive 102 mmHg Diastolic Blood Pressure Non-Invasive 48 mmHg <LLOW Mean Arterial Pressure (NBP) 63 mmHg Reason For Taking VItal Signs Routine 01/28/2024 3:00 EDT Apical Heart Rate Not Done: Not Appropriate at this Time (Not Done) 01/28/2024 1:30 EDT Heart Rate Monitored 71 bpm Respiratory Rate 24 br/min HI Systolic Blood Pressure Non-Invasive 115 mmHg Diastolic Blood Pressure Non-Invasive 48 mmHg <LLOW Mean Arterial Pressure (NBP) 65 mmHg Reason For Taking VItal Signs Routine 01/27/2024 23:30 EDT Temperature Oral 36.7 DegC Heart Rate Monitored 68 bpm Respiratory Rate 24 br/min HI Systolic Blood Pressure Non-Invasive 98 mmHg Diastolic Blood Pressure Non-Invasive 45 mmHg <LLOW Mean Arterial Pressure (NBP) 62 mmHg Reason For Taking VItal Signs Routine 01/27/2024 22:30 EDT Heart Rate Monitored 70 bpm Systolic Blood Pressure Non-Invasive 123 mmHg Diastolic Blood Pressure Non-Invasive 55 mmHg LOW Mean Arterial Pressure (NBP) 74 mmHg Reason For Taking VItal Signs Routine 01/27/2024 21:40 EDT Heart Rate Monitored 67 bpm Respiratory Rate 20 br/min Respiratory Rate 22 br/min HI Systolic Blood Pressure Non-Invasive 107 mmHg Diastolic Blood Pressure Non-Invasive 51 mmHg LOW Mean Arterial Pressure (NBP) 67 mmHg Reason For Taking VItal Signs Routine Reason For Taking VItal Signs Routine 01/27/2024 21:00 EDT Apical Heart Rate Not Done: Bradycardia (Not Done) 01/27/2024 20:30 EDT Temperature Oral 37.8 DegC HI Heart Rate Monitored 74 bpm Respiratory Rate 23 br/min HI Systolic Blood Pressure Non-Invasive 126 mmHg Diastolic Blood Pressure Non-Invasive 54 mmHg LOW Mean Arterial Pressure (NBP) 74 mmHg Reason For Taking VItal Signs Routine 01/27/2024 20:00 EDT Heart Rate Monitored 69 bpm Systolic Blood Pressure Non-Invasive 107 mmHg Diastolic Blood Pressure Non-Invasive 52 mmHg LOW Mean Arterial Pressure (NBP) 70 mmHg 01/27/2024 19:49 EDT Heart Rate Monitored 69 bpm Systolic Blood Pressure Non-Invasive 121 mmHg Diastolic Blood Pressure Non-Invasive 52 mmHg LOW Mean Arterial Pressure (NBP) 70 mmHg 01/27/2024 19:45 EDT Heart Rate Monitored 67 bpm Systolic Blood Pressure Non-Invasive 92 mmHg Diastolic Blood Pressure Non-Invasive 47 mmHg <LLOW Mean Arterial Pressure (NBP) 61 mmHg 01/27/2024 19:30 EDT Heart Rate Monitored 74 bpm Systolic Blood Pressure Non-Invasive 94 mmHg Diastolic Blood Pressure Non-Invasive 55 mmHg LOW Mean Arterial Pressure (NBP) 67 mmHg 01/27/2024 19:15 EDT Heart Rate Monitored 66 bpm Systolic Blood Pressure Non-Invasive 103 mmHg Diastolic Blood Pressure Non-Invasive 48 mmHg <LLOW Mean Arterial Pressure (NBP) 63 mmHg 01/27/2024 19:00 EDT Heart Rate Monitored 67 bpm Systolic Blood Pressure Non-Invasive 92 mmHg Diastolic Blood Pressure Non-Invasive 45 mmHg <LLOW Mean Arterial Pressure (NBP) 59 mmHg 01/27/2024 18:53 EDT Heart Rate Monitored 73 bpm Systolic Blood Pressure Non-Invasive 116 mmHg Diastolic Blood Pressure Non-Invasive 52 mmHg LOW Mean Arterial Pressure (NBP) 70 mmHg 01/27/2024 18:45 EDT Heart Rate Monitored 68 bpm Systolic Blood Pressure Non-Invasive 94 mmHg Diastolic Blood Pressure Non-Invasive 45 mmHg <LLOW Mean Arterial Pressure (NBP) 59 mmHg 01/27/2024 18:30 EDT Heart Rate Monitored 75 bpm Systolic Blood Pressure Non-Invasive 117 mmHg Diastolic Blood Pressure Non-Invasive 52 mmHg LOW Mean Arterial Pressure (NBP) 71 mmHg 01/27/2024 18:15 EDT Heart Rate Monitored 72 bpm Systolic Blood Pressure Non-Invasive 126 mmHg Diastolic Blood Pressure Non-Invasive 55 mmHg LOW Mean Arterial Pressure (NBP) 74 mmHg 01/27/2024 18:00 EDT Heart Rate Monitored 72 bpm Respiratory Rate 26 br/min HI Systolic Blood Pressure Non-Invasive 121 mmHg Diastolic Blood Pressure Non-Invasive 57 mmHg LOW Mean Arterial Pressure (NBP) 75 mmHg Reason For Taking VItal Signs Routine 01/27/2024 17:45 EDT Heart Rate Monitored 70 bpm Systolic Blood Pressure Non-Invasive 118 mmHg Diastolic Blood Pressure Non-Invasive 50 mmHg <LLOW Mean Arterial Pressure (NBP) 69 mmHg 01/27/2024 17:30 EDT Heart Rate Monitored 71 bpm Systolic Blood Pressure Non-Invasive 136 mmHg Diastolic Blood Pressure Non-Invasive 53 mmHg LOW Mean Arterial Pressure (NBP) 74 mmHg 01/27/2024 17:15 EDT Heart Rate Monitored 76 bpm Systolic Blood Pressure Non-Invasive 139 mmHg Diastolic Blood Pressure Non-Invasive 55 mmHg LOW Mean Arterial Pressure (NBP) 75 mmHg 01/27/2024 17:00 EDT Heart Rate Monitored 73 bpm Systolic Blood Pressure Non-Invasive 137 mmHg Diastolic Blood Pressure Non-Invasive 55 mmHg LOW Mean Arterial Pressure (NBP) 74 mmHg 01/27/2024 16:45 EDT Heart Rate Monitored 70 bpm Systolic Blood Pressure Non-Invasive 112 mmHg Diastolic Blood Pressure Non-Invasive 48 mmHg <LLOW Mean Arterial Pressure (NBP) 64 mmHg 01/27/2024 16:30 EDT Heart Rate Monitored 69 bpm Systolic Blood Pressure Non-Invasive 136 mmHg Diastolic Blood Pressure Non-Invasive 56 mmHg LOW Mean Arterial Pressure (NBP) 77 mmHg 01/27/2024 16:15 EDT Apical Heart Rate 81 bpm Heart Rate Monitored 83 bpm Systolic Blood Pressure Non-Invasive 142 mmHg HI Diastolic Blood Pressure Non-Invasive 51 mmHg LOW Mean Arterial Pressure (NBP) 76 mmHg 01/27/2024 16:00 EDT Heart Rate Monitored 87 bpm Systolic Blood Pressure Non-Invasive 139 mmHg Diastolic Blood Pressure Non-Invasive 51 mmHg LOW Mean Arterial Pressure (NBP) 76 mmHg 01/27/2024 15:57 EDT Temperature Oral 36.7 DegC Heart Rate Monitored 85 bpm Respiratory Rate 27 br/min HI Systolic Blood Pressure Non-Invasive 134 mmHg Diastolic Blood Pressure Non-Invasive 50 mmHg <LLOW Mean Arterial Pressure (NBP) 74 mmHg Reason For Taking VItal Signs Routine 01/27/2024 15:45 EDT Heart Rate Monitored 85 bpm Systolic Blood Pressure Non-Invasive 138 mmHg Diastolic Blood Pressure Non-Invasive 58 mmHg LOW Mean Arterial Pressure (NBP) 80 mmHg 01/27/2024 15:40 EDT Heart Rate Monitored 81 bpm Systolic Blood Pressure Non-Invasive 145 mmHg HI Diastolic Blood Pressure Non-Invasive 56 mmHg LOW Mean Arterial Pressure (NBP) 80 mmHg Reason For Taking VItal Signs In Error (In Error) 01/27/2024 15:36 EDT Heart Rate Monitored 81 bpm Systolic Blood Pressure Non-Invasive 142 mmHg HI Diastolic Blood Pressure Non-Invasive 55 mmHg LOW Mean Arterial Pressure (NBP) 79 mmHg 01/27/2024 15:15 EDT Heart Rate Monitored 80 bpm Systolic Blood Pressure Non-Invasive 146 mmHg HI Diastolic Blood Pressure Non-Invasive 59 mmHg LOW Mean Arterial Pressure (NBP) 82 mmHg 01/27/2024 14:58 EDT Heart Rate Monitored 76 bpm Systolic Blood Pressure Non-Invasive 116 mmHg Diastolic Blood Pressure Non-Invasive 54 mmHg LOW Mean Arterial Pressure (NBP) 71 mmHg 01/27/2024 14:46 EDT Heart Rate Monitored 74 bpm Systolic Blood Pressure Non-Invasive 127 mmHg Diastolic Blood Pressure Non-Invasive 54 mmHg LOW Mean Arterial Pressure (NBP) 73 mmHg 01/27/2024 14:38 EDT Heart Rate Monitored 72 bpm Respiratory Rate 24 br/min HI Systolic Blood Pressure Non-Invasive 123 mmHg Diastolic Blood Pressure Non-Invasive 55 mmHg LOW Mean Arterial Pressure (NBP) 74 mmHg Reason For Taking VItal Signs In Error (In Error) 01/27/2024 13:28 EDT Heart Rate Monitored 71 bpm Systolic Blood Pressure Non-Invasive 95 mmHg Diastolic Blood Pressure Non-Invasive 45 mmHg <LLOW Mean Arterial Pressure (NBP) 59 mmHg 01/27/2024 13:22 EDT Heart Rate Monitored 77 bpm Respiratory Rate 24 br/min HI Systolic Blood Pressure Non-Invasive 101 mmHg Diastolic Blood Pressure Non-Invasive 47 mmHg <LLOW Mean Arterial Pressure (NBP) 63 mmHg Reason For Taking VItal Signs Routine 01/27/2024 13:15 EDT Heart Rate Monitored 70 bpm Systolic Blood Pressure Non-Invasive 94 mmHg Diastolic Blood Pressure Non-Invasive 50 mmHg <LLOW Mean Arterial Pressure (NBP) 63 mmHg 01/27/2024 13:10 EDT Heart Rate Monitored 76 bpm Systolic Blood Pressure Non-Invasive 84 mmHg LOW Diastolic Blood Pressure Non-Invasive 44 mmHg <LLOW Mean Arterial Pressure (NBP) 57 mmHg 01/27/2024 12:52 EDT Heart Rate Monitored 67 bpm Systolic Blood Pressure Non-Invasive 115 mmHg Diastolic Blood Pressure Non-Invasive 76 mmHg Mean Arterial Pressure (NBP) 87 mmHg 01/27/2024 12:30 EDT Heart Rate Monitored 64 bpm Systolic Blood Pressure Non-Invasive 113 mmHg Diastolic Blood Pressure Non-Invasive 52 mmHg LOW Mean Arterial Pressure (NBP) 70 mmHg 01/27/2024 12:00 EDT Heart Rate Monitored 62 bpm Systolic Blood Pressure Non-Invasive 110 mmHg Diastolic Blood Pressure Non-Invasive 55 mmHg LOW Mean Arterial Pressure (NBP) 71 mmHg 01/27/2024 11:45 EDT Heart Rate Monitored 60 bpm Systolic Blood Pressure Non-Invasive 114 mmHg Diastolic Blood Pressure Non-Invasive 55 mmHg LOW Mean Arterial Pressure (NBP) 72 mmHg 01/27/2024 11:30 EDT Heart Rate Monitored 58 bpm LOW Systolic Blood Pressure Non-Invasive 114 mmHg Diastolic Blood Pressure Non-Invasive 57 mmHg LOW Mean Arterial Pressure (NBP) 74 mmHg 01/27/2024 11:21 EDT Temperature Oral 36.5 DegC Heart Rate Monitored 56 bpm LOW Respiratory Rate 25 br/min HI Systolic Blood Pressure Non-Invasive 112 mmHg Diastolic Blood Pressure Non-Invasive 56 mmHg LOW Mean Arterial Pressure (NBP) 73 mmHg Reason For Taking VItal Signs Routine 01/27/2024 11:15 EDT Heart Rate Monitored 56 bpm LOW Systolic Blood Pressure Non-Invasive 111 mmHg Diastolic Blood Pressure Non-Invasive 57 mmHg LOW Mean Arterial Pressure (NBP) 73 mmHg 01/27/2024 11:06 EDT Heart Rate Monitored 56 bpm LOW Systolic Blood Pressure Non-Invasive 114 mmHg Diastolic Blood Pressure Non-Invasive 56 mmHg LOW Mean Arterial Pressure (NBP) 73 mmHg 01/27/2024 11:01 EDT Heart Rate Monitored 55 bpm LOW Systolic Blood Pressure Non-Invasive 93 mmHg Diastolic Blood Pressure Non-Invasive 54 mmHg LOW Mean Arterial Pressure (NBP) 66 mmHg 01/27/2024 10:51 EDT Heart Rate Monitored 57 bpm LOW Systolic Blood Pressure Non-Invasive 67 mmHg LOW Diastolic Blood Pressure Non-Invasive 39 mmHg <LLOW Mean Arterial Pressure (NBP) 49 mmHg 01/27/2024 10:45 EDT Heart Rate Monitored 59 bpm LOW Systolic Blood Pressure Non-Invasive 67 mmHg LOW Diastolic Blood Pressure Non-Invasive 46 mmHg <LLOW Mean Arterial Pressure (NBP) 53 mmHg 01/27/2024 10:08 EDT Heart Rate Monitored 60 bpm Systolic Blood Pressure Non-Invasive 104 mmHg Diastolic Blood Pressure Non-Invasive 61 mmHg Mean Arterial Pressure (NBP) 74 mmHg 01/27/2024 9:50 EDT Apical Heart Rate 68 bpm Heart Rate Monitored 66 bpm Respiratory Rate 24 br/min HI Systolic Blood Pressure Non-Invasive 108 mmHg Diastolic Blood Pressure Non-Invasive 54 mmHg LOW Mean Arterial Pressure (NBP) 70 mmHg Reason For Taking VItal Signs Routine 01/27/2024 8:45 EDT Heart Rate Monitored 70 bpm Systolic Blood Pressure Non-Invasive 102 mmHg Diastolic Blood Pressure Non-Invasive 51 mmHg LOW Mean Arterial Pressure (NBP) 66 mmHg 01/27/2024 8:32 EDT Heart Rate Monitored 72 bpm Systolic Blood Pressure Non-Invasive 128 mmHg Diastolic Blood Pressure Non-Invasive 55 mmHg LOW Mean Arterial Pressure (NBP) 76 mmHg 01/27/2024 8:15 EDT Heart Rate Monitored 65 bpm Systolic Blood Pressure Non-Invasive 96 mmHg Diastolic Blood Pressure Non-Invasive 48 mmHg <LLOW Mean Arterial Pressure (NBP) 63 mmHg 01/27/2024 8:01 EDT Heart Rate Monitored 79 bpm Systolic Blood Pressure Non-Invasive 134 mmHg Diastolic Blood Pressure Non-Invasive 70 mmHg Mean Arterial Pressure (NBP) 89 mmHg 01/27/2024 7:15 EDT Temperature Oral 36.9 DegC Heart Rate Monitored 77 bpm Respiratory Rate 24 br/min HI Systolic Blood Pressure Non-Invasive 136 mmHg Diastolic Blood Pressure Non-Invasive 63 mmHg Mean Arterial Pressure (NBP) 83 mmHg Reason For Taking VItal Signs Routine 01/27/2024 7:01 EDT Heart Rate Monitored 61 bpm Systolic Blood Pressure Non-Invasive 123 mmHg Diastolic Blood Pressure Non-Invasive 61 mmHg Mean Arterial Pressure (NBP) 77 mmHg 01/27/2024 6:45 EDT Heart Rate Monitored 72 bpm Systolic Blood Pressure Non-Invasive 135 mmHg Diastolic Blood Pressure Non-Invasive 66 mmHg Mean Arterial Pressure (NBP) 86 mmHg 01/27/2024 6:30 EDT Heart Rate Monitored 68 bpm Systolic Blood Pressure Non-Invasive 137 mmHg Diastolic Blood Pressure Non-Invasive 71 mmHg Mean Arterial Pressure (NBP) 87 mmHg 01/27/2024 6:15 EDT Heart Rate Monitored 58 bpm LOW Systolic Blood Pressure Non-Invasive 110 mmHg Diastolic Blood Pressure Non-Invasive 64 mmHg Mean Arterial Pressure (NBP) 77 mmHg 01/27/2024 6:09 EDT Heart Rate Monitored 68 bpm Systolic Blood Pressure Non-Invasive 102 mmHg Diastolic Blood Pressure Non-Invasive 57 mmHg LOW Mean Arterial Pressure (NBP) 71 mmHg 01/27/2024 6:00 EDT Heart Rate Monitored 62 bpm Systolic Blood Pressure Non-Invasive 69 mmHg LOW Diastolic Blood Pressure Non-Invasive 44 mmHg <LLOW Mean Arterial Pressure (NBP) 52 mmHg 01/27/2024 5:45 EDT Heart Rate Monitored 59 bpm LOW Systolic Blood Pressure Non-Invasive 76 mmHg LOW Diastolic Blood Pressure Non-Invasive 44 mmHg <LLOW Mean Arterial Pressure (NBP) 55 mmHg 01/27/2024 5:30 EDT Heart Rate Monitored 74 bpm Systolic Blood Pressure Non-Invasive 109 mmHg Diastolic Blood Pressure Non-Invasive 56 mmHg LOW Mean Arterial Pressure (NBP) 72 mmHg 01/27/2024 5:16 EDT Heart Rate Monitored 70 bpm Respiratory Rate 24 br/min HI Systolic Blood Pressure Non-Invasive 101 mmHg Diastolic Blood Pressure Non-Invasive 57 mmHg LOW Mean Arterial Pressure (NBP) 72 mmHg Reason For Taking VItal Signs Routine 01/27/2024 4:45 EDT Heart Rate Monitored 68 bpm Systolic Blood Pressure Non-Invasive 106 mmHg Diastolic Blood Pressure Non-Invasive 52 mmHg LOW Mean Arterial Pressure (NBP) 68 mmHg 01/27/2024 4:30 EDT Heart Rate Monitored 67 bpm Systolic Blood Pressure Non-Invasive 97 mmHg Diastolic Blood Pressure Non-Invasive 49 mmHg <LLOW Mean Arterial Pressure (NBP) 64 mmHg 01/27/2024 4:29 EDT Heart Rate Monitored 68 bpm Respiratory Rate 25 br/min HI 01/27/2024 4:15 EDT Heart Rate Monitored 67 bpm Systolic Blood Pressure Non-Invasive 101 mmHg Diastolic Blood Pressure Non-Invasive 48 mmHg <LLOW Mean Arterial Pressure (NBP) 64 mmHg 01/27/2024 4:00 EDT Heart Rate Monitored 66 bpm Systolic Blood Pressure Non-Invasive 95 mmHg Diastolic Blood Pressure Non-Invasive 44 mmHg <LLOW Mean Arterial Pressure (NBP) 59 mmHg 01/27/2024 3:45 EDT Heart Rate Monitored 70 bpm Systolic Blood Pressure Non-Invasive 127 mmHg Diastolic Blood Pressure Non-Invasive 65 mmHg Mean Arterial Pressure (NBP) 83 mmHg 01/27/2024 3:35 EDT Temperature Oral 36.9 DegC Heart Rate Monitored 67 bpm Respiratory Rate 28 br/min HI Systolic Blood Pressure Non-Invasive 121 mmHg Diastolic Blood Pressure Non-Invasive 66 mmHg Mean Arterial Pressure (NBP) 81 mmHg Reason For Taking VItal Signs Routine 01/27/2024 3:19 EDT Apical Heart Rate Not Done: Not Appropriate at this Time (Not Done) 01/27/2024 3:10 EDT Heart Rate Monitored 65 bpm Systolic Blood Pressure Non-Invasive 95 mmHg Diastolic Blood Pressure Non-Invasive 51 mmHg LOW Mean Arterial Pressure (NBP) 65 mmHg 01/27/2024 2:50 EDT Heart Rate Monitored 71 bpm Respiratory Rate 28 br/min HI Systolic Blood Pressure Non-Invasive 106 mmHg Diastolic Blood Pressure Non-Invasive 79 mmHg Mean Arterial Pressure (NBP) 73 mmHg Reason For Taking VItal Signs Routine 01/27/2024 2:40 EDT Heart Rate Monitored 68 bpm Systolic Blood Pressure Non-Invasive 75 mmHg LOW Diastolic Blood Pressure Non-Invasive 46 mmHg <LLOW Mean Arterial Pressure (NBP) 55 mmHg Reason For Taking VItal Signs Routine 01/27/2024 2:19 EDT Heart Rate Monitored 72 bpm Systolic Blood Pressure Non-Invasive 99 mmHg Diastolic Blood Pressure Non-Invasive 47 mmHg <LLOW Mean Arterial Pressure (NBP) 63 mmHg Reason For Taking VItal Signs Routine 01/27/2024 1:30 EDT Heart Rate Monitored 75 bpm Systolic Blood Pressure Non-Invasive 99 mmHg Diastolic Blood Pressure Non-Invasive 56 mmHg LOW Mean Arterial Pressure (NBP) 69 mmHg Reason For Taking VItal Signs Routine 01/27/2024 1:16 EDT Heart Rate Monitored 77 bpm Respiratory Rate 29 br/min HI Systolic Blood Pressure Non-Invasive 116 mmHg Diastolic Blood Pressure Non-Invasive 55 mmHg LOW Mean Arterial Pressure (NBP) 71 mmHg Blood Pressure Method Automatic Blood Pressure Location Left arm Reason For Taking VItal Signs Routine 01/27/2024 0:50 EDT Heart Rate Monitored 83 bpm Systolic Blood Pressure Non-Invasive 138 mmHg Diastolic Blood Pressure Non-Invasive 64 mmHg Mean Arterial Pressure (NBP) 83 mmHg Reason For Taking VItal Signs Routine 01/27/2024 0:15 EDT Heart Rate Monitored 147 bpm HI Heart Rate Monitored 147 bpm HI Respiratory Rate 24 br/min HI Respiratory Rate 28 br/min HI Systolic Blood Pressure Invasive 82 mmHg LOW Diastolic Blood Pressure Invasive 78 mmHg Mean Arterial Pressure (Line) 79 mmHg Reason For Taking VItal Signs Routine 01/27/2024 0:00 EDT Heart Rate Monitored 145 bpm HI Respiratory Rate 24 br/min HI Systolic Blood Pressure Non-Invasive 145 mmHg HI Diastolic Blood Pressure Non-Invasive 87 mmHg Mean Arterial Pressure (NBP) 99 mmHg Blood Pressure Method Automatic Blood Pressure Location Left arm Vital Signs (last 24 hrs) Last Charted Temp Oral36.8 DegC (JAN 27 07:03) Heart Rate [id number] bpm (JAN 27 09:33) SBPH 158 mmHg (JAN 27:33) DBPC 48mmHg (JAN 27:33) Measurements from flowsheet : Measurements 01/27/2024 13:38 EDT [place] Body Weight 75.5 kg Pain assessment: Pain Assessment 01/28/2024 9:33 EDT Primary Pain Intensity 3 Primary Pain Nonverbal Response Appears restful Pain Scale Type Behavioral pain scale 01/28/2024 7:03 EDT Primary Pain Intensity 3 Primary Pain Nonverbal Response Appears restful Pain Scale Type Behavioral pain scale 01/28/2024 5:34 EDT Primary Pain Intensity 3 Primary Pain Nonverbal Response Appears restful Pain Scale Type Behavioral pain scale 01/28/2024 3:30 EDT Primary Pain Intensity 3 Primary Pain Nonverbal Response Appears restful Pain Scale Type Behavioral pain scale 01/28/2024 1:30 EDT Primary Pain Intensity 3 Primary Pain Nonverbal Response Appears restful Pain Scale Type PAINAD 01/27/2024 23:30 EDT Primary Pain Intensity 3 Primary Pain Nonverbal Response Appears restful Pain Scale Type Behavioral pain scale 01/27/2024 21:40 EDT Primary Pain Intensity 3 Primary Pain Intensity 3 Primary Pain Nonverbal Response Appears restful Primary Pain Nonverbal Response Appears restful Pain Scale Type Behavioral pain scale Pain Scale Type Behavioral pain scale 01/27/2024 20:30 EDT Primary Pain Intensity 3 Primary Pain Nonverbal Response Appears restful Pain Scale Type Behavioral pain scale 01/27/2024 18:00 EDT Primary Pain Intensity 3 Primary Pain Nonverbal Response Appears restful Pain Scale Type Behavioral pain scale 01/27/2024 15:57 EDT Primary Pain Intensity 3 Primary Pain Nonverbal Response Appears restful Pain Scale Type Behavioral pain scale 01/27/2024 13:22 EDT Primary Pain Location Generalized Primary Pain Intensity 3 Primary Pain Non-Pharma Intervention Rest, Repositioning Primary Pain Nonverbal Response Appears restful Pain Scale Type Behavioral pain scale 01/27/2024 11:36 EDT Pain Scale Assessment Behavioral pain scale Primary Pain Location Generalized Primary Pain Intensity 3 01/27/2024 11:21 EDT Primary Pain Location Generalized Primary Pain Intensity 3 Primary Pain Non-Pharma Intervention Rest, Repositioning Primary Pain Nonverbal Response Appears restful Pain Scale Type Behavioral pain scale 01/27/2024 11:06 EDT Primary Pain Intensity 6 01/27/2024 9:50 EDT Primary Pain Location Generalized Primary Pain Intensity 3 Primary Pain Non-Pharma Intervention Rest, Repositioning Primary Pain Nonverbal Response Appears restful Pain Scale Type Behavioral pain scale 01/27/2024 7:15 EDT Primary Pain Location Generalized Primary Pain Intensity 3 Primary Pain Non-Pharma Intervention Rest, Repositioning Primary Pain Nonverbal Response Appears restful Pain Scale Type Behavioral pain scale 01/27/2024 5:20 EDT Primary Pain Intensity 6 01/27/2024 5:16 EDT Primary Pain Location Generalized Primary Pain Intensity 6 Primary Pain Pharma Intervention Medication Primary Pain Non-Pharma Intervention Rest, Repositioning Primary Pain Nonverbal Response Nods Yes Pain Scale Type Behavioral pain scale 01/27/2024 3:35 EDT Primary Pain Location Generalized Primary Pain Intensity 3 Primary Pain Non-Pharma Intervention Rest, Repositioning Primary Pain Nonverbal Response Appears restful Pain Scale Type Behavioral pain scale 01/27/2024 1:16 EDT Primary Pain Intensity 3 Primary Pain Nonverbal Response Appears restful Pain Scale Type Behavioral pain scale . General: sedated. Airway: Unable to examine: Patient intubated. Respiratory: Lungs are clear to auscultation. Cardiovascular: Normal rate, Regular rhythm. Review / Management Results review: Labs (Last four charted values) WBC 8.6(JAN 27)8.7(JAN 26)8.0(JAN 25)9.3(JAN 24) Hgb L 10.2(JAN 27)L 10.5(JAN 26)L 11.5(JAN 26)L 10.1(JAN 25) Hct L 30.2(JAN 27)L 31.7(JAN 26)L 34.7(JAN 26)L 30.2(JAN 25) Plt L 124(JAN 27)L 89(JAN 26)L 72(JAN 25)L 57(JAN 24) Na H 153(JAN 27)H 151(JAN 26)H 153(JAN 26)H 150(JAN 25) K 3.7(JAN 27)4.0(JAN 26)L 3.4(JAN 26)L 3.2(JAN 25) CO2 29(JAN 27)26(JAN 26)29(JAN 26)27(JAN 25) Cl H 117(JAN 27)H 114(JAN 26)H 115(JAN 26)H 116(JAN 25) Cr H 2.28(JAN 27)H 2.16(JAN 26)H 2.17(JAN 26)H 2.28(JAN 25) BUN H 88.0(JAN 27)H 77.0(JAN 26)H 72.0(JAN 26)H 67.0(JAN 25) Glucose H 253(JAN 27)H 257(JAN 26)H 238(JAN 26)H 233(JAN 25) Mg 2.1(JAN 26)2.2(JAN 25)2.2(JAN 25)2.3(JAN 25) Phos 3.2(JAN 26)2.7(JAN 25)3.5(JAN 25)3.0(JAN 25) Ca L 8.3(JAN 27)L 8.5(JAN 26)L 7.9(JAN 26)L 8.2(JAN 25) PT 10.6(JAN 25)12.0(JAN 22)12.7(JAN 20) INR 0.9(JAN 25)1.0(JAN 22)1.1(JAN 20) PTT H 35.9(JAN 22)29.9(JAN 20) Total CK H 597(JAN 25) , Lab results 01/28/2024 10:15 EDT Parry Screen Daily History of Fall in Last 3 Months Parry No Presence of Secondary Diagnosis Parry Yes Use of Ambulatory Aid Parry None, bedrest, wheelchair, nurse IV/PRN Adapter Fall Risk Parry Yes Gait Weak or Impaired Fall Risk Parry Normal, bedrest, immobile Mental Status Fall Risk Parry Forgets limitations Parry Fall Risk Score 50 HI Individuals Taught Patient Learning Readiness critical condition Barriers to Learning Acuity of illness Teaching Method Explanation Teaching Evaluation Needs further teaching Education Topics Fall Prevention Alarms, Assistive equipment use, Bed height/stabilization 01/28/2024 10:13 EDT CAM Mental Status Change & Fluctuation Not Done: Task Duplication (Not Done) CAM Inattention Not Done: Task Duplication (Not Done) CAM Disorganized Thinking Not Done: Task Duplication (Not Done) CAM Altered Level of Consciousness Not Done: Task Duplication (Not Done) Confusion Assessment Method Score Not Done: Task Duplication (Not Done) BMAT Existing Patient Condition/Safety Strict bedrest 01/28/2024 10:12 EDT CAM Mental Status Change & Fluctuation Unable to determine CAM Inattention Unable to determine CAM Disorganized Thinking Unable to determine CAM Altered Level of Consciousness Yes Confusion Assessment Method Score Unable to determine Mechanical VTE Prophylaxis Education Not Done: See ICU flow (Not Done) Mechanical VTE Prophylaxis Education Not Done: See ICU flow (Not Done) Sequential Compression Device Not Done: See ICU flow (Not Done) Antiembolism Stockings Form Not Done (Not Done) Sequential Compression Device Form Not Done (Not Done) 01/28/2024 10:00 EDT Soft limb holders (Cloth) Wrist, bilateral Restraint Technique: Non Violent Restraint Restraint Activity Type: Continue restraint, same episode Behavior Requiring Non Violent Restraint Attempts to remove medical management devices Type of Medical Devices: Monitoring equipment, Tubes/drains, IV/arterial access, Airway management equipment Rationale for Restraint: Attempting to remove devices, despite current restraints Range of Motion: Repositioned Restraint Skin Assessment: Skin intact, Pulses intact Restraint Nutrition/Hydration: IV fluid Restraint Hygiene/Elimination: Urinary catheter Other Standard Safety: Call device within reach, ID band check, Night light, Non-Slip footwear Bed Standard Safety: Bed alert on, Bed in low position, Upper/Half-length side rails up, Wheels locked, HOB elevated Restraint DC Readiness Attempts: Diversional activities, Enhanced observation, Environmental changes, Family/Visitor at bedside with nursing supervision, Negotiation, Pain management, Postitioning/Turning, Reality orientation Restraint DC Intervention Status: Intervention attempted, not successful 01/28/2024 9:58 EDT Nephrology Progress Note Progress Note 01/28/2024 9:52 EDT insulin regular Begin Bag 1 mL unit(s) NS Premix Diluent Begin Bag 100 mL mL 01/28/2024 9:50 EDT Blood Glucose, Capillary 175 mg/dL HI Blood Glucose Testing Reason Routine 01/28/2024 9:33 EDT Heart Rate Monitored 75 bpm Respiratory Rate 27 br/min HI Systolic Blood Pressure Non-Invasive 158 mmHg HI Diastolic Blood Pressure Non-Invasive 48 mmHg <LLOW Mean Arterial Pressure (NBP) 75 mmHg Reason For Taking VItal Signs Routine Oral Care ICU Done Eye Care Done Sedation Level -3 Moderate Sedation Sedation Level Interventions IV Sedation Decreased Primary Pain Intensity 3 Primary Pain Nonverbal Response Appears restful Pain Scale Type Behavioral pain scale Monitor Alarms On and Limits Checked Nail Bed Color [place] Capillary Refill < 2 seconds Heart Sounds ICU [id number] Heart Rhythm Regular Generalized Edema Ratin+ mild/4mm Sclera edema Bilateral Edema Ratin+ mild/4mm Hand edema Bilateral Edema Ratin+ mild/4mm Cardiac Rhythm Sinus rhythm Monitoring Lead II, V1/MCL1 Alarms On and Functional Yes Respirations Unlabored Respiratory Pattern Regular Respiratory Pattern Detailed Vented Chest Motion Symmetrical Patient Airway Status Patent with support Breath Sounds Auscultated Anterior only All Lobes Breath Sounds Clear, Diminished Ventilator Mode (PSV) Pressure Support Ventilation Positive End Expiratory Pressure 5 cmH20 Pressure Support 5 cmH20 FiO2 40 % Tidal Volume, Exhaled 0.591 L Resuscitation Bag Available Yes Vent Alarms On and Functional Yes Oxygen Therapy Ventilator Oxygen Saturation 93 % Tracheal Position Midline Cuffed endotracheal tube 8 01/21/2024 Endotracheal Tube Activity: Assessed Endotracheal Tube Placement: Oral, right ET Tube Insertion cm [place] at Lip: 23 cm Endotracheal Tube Position Confirmation: Breath sounds Endotracheal Tube Status: Patent, Secure, manufactured tube alfredo Endotracheal Tube Care: Oral care Abdomen Description Rounded Abdomen Palpation Semi-firm Bowel Continence No bowel movement Bowel Sounds All Quadrants Hypoactive Nasogastric (NG) Nostril, left Gastrointestinal Tube Activity: Assessed Enteral Tube Insertion cm [place] at Nare: 78 cm GI Tube Method of Drainage: Medium Intermittent Suction Gastrointestinal Tube Site Condition: No complications GI Tube Placement Confirmation: Aspiration Urinary Elimination Urinary catheter draining Urinary Elimination Devices Indwelling catheter Urethral Indwelling/Continuous 16 Fr 01/21/2024 Urinary Catheter Indication: ICU Patient-Hemodynamic instability Urinary Catheter Activity: Assessed Urinary Catheter Site Condition: No complications All Extremity Description Normal for ethnicity Temperature All Extremities Warm Mucous Membrane Color [place] Mucous Membrane Description Moist Abdomen Anterior Skin Abnormality Type: Surgical incision Wound Status: Unchanged Abdomen Left Lateral Skin Abnormality Type: Tear Wound Status: Unchanged [place] # 1 Abdomen Right Surgical Drain, Tube Activity: Assessed Surgical Drain, Tube Care: [place] collapsed Surgical Drain Site Condition: No complications [place] # 2 Abdomen Right Surgical Drain, Tube Activity: Assessed Surgical Drain, Tube Care: [place] collapsed Surgical Drain Site Condition: No complications [place] # 3 Abdomen Right Surgical Drain, Tube Activity: Assessed Surgical Drain, Tube Care: [place] collapsed Surgical Drain Site Condition: No complications [place] # 4 Abdomen Left Surgical Drain, Tube Activity: Assessed Surgical Drain, Tube Care: [place] collapsed Surgical Drain Site Condition: No complications [place] Left Surgical Drain, Tube Activity: Assessed Surgical Drain, Tube Care: [place] collapsed Surgical Drain Site Condition: No complications Continuous IV Infusions TPN@80 Triple Lumen Internal jugular vein Left 01/22/2024 Central IV Activity: Assessed Central IV Number of Lumens: Triple Central IV Site Condition: No complications Central IV Equipment: IV Pump Neurological Symptoms Sedated Level of Consciousness Arousable with minimal stimulation Eye Opening Response Nathan To voice Best Motor Response [place] Obeys simple commands Best Verbal Response [place] None Nathan Coma Score 10 Response to Stimuli Affected by Sedation GALILEA Yes Strength All Extremities Weak Affect/Behavior Impulsive Orientation Follows simple commands Right lateral 16 Micronesian Chest Tube Activity: Assess Chest Tube Connectivity: Water-Seal 20 cm suction Chest Tube Water Seal Chamber Desc: Absence of Bubbling Orientation Assessment Unable to evaluate Positioning Repositioned left side Beds/Devices low air loss bed Assistive Equipment boot(s) on Activity Assistance Maximum assistance Sequential Compression Device bilateral knee high applied/on Skin Care Preventative Intervention(s) heel(s)s elevated, turn and position system Standard Safety ID band on, Call device within reach, Bed in low position, Wheels locked, Upper/Half-Length side-rails up, Safety level maintained, Hazards removed from floor, Precautions maintained High Risk Safety Room located near nursing station, Door open, Room check performed Demonstrates Correct Call Light Use Yes dexmedeTOMIDine 0.4 mcg/kg/hr mcg insulin regular 4.5 unit(s)/hr unit(s) NS Premix Diluent NS Premix Diluent mL Sodium Chloride 0.9% Sodium Chloride 0.9% mL Degrees Head of Bed Elevated 30 01/28/2024 8:38 EDT Critical Care Progress Notes Progress Note (Modified) 01/28/2024 8:06 EDT Discharge To, Anticipated Home independently Anticipated Discharge Date 01/31/2024 Transition Planning Note Transition Planning Ongoing Assessment 01/28/2024 8:00 EDT Soft limb holders (Cloth) Wrist, bilateral Restraint Technique: Non Violent Restraint Restraint Activity Type: Continue restraint, same episode Behavior Requiring Non Violent Restraint Attempts to remove medical management devices Type of Medical Devices: Monitoring equipment, Tubes/drains, IV/arterial access, Airway management equipment Rationale for Restraint: Attempting to remove devices, despite current restraints Range of Motion: Repositioned Restraint Skin Assessment: Skin intact, Pulses intact Restraint Nutrition/Hydration: IV fluid Restraint Hygiene/Elimination: Urinary catheter Other Standard Safety: Call device within reach, ID band check, Allergy Band on, Night light, Non-Slip footwear Bed Standard Safety: Bed alert on, Bed in low position, Upper/Half-length side rails up, Wheels locked, HOB elevated Restraint DC Readiness Attempts: Diversional activities, Enhanced observation, Environmental changes, Family/Visitor at bedside with nursing supervision, Negotiation, Pain management, Postitioning/Turning, Reality orientation Restraint DC Intervention Status: Intervention attempted, not successful Individuals Taught Patient Learning Readiness critical condition Barriers to Learning Acuity of illness Teaching Method Explanation Preferred Spoken Language Nigerien Preferred Written Language Nigerien Restraint Use Education Reason for restraint use, Restraint release criteria Restraint Teaching Evaluation Needs further teaching 01/28/2024 7:41 EDT Weaning Negative Inspiratory Force -16 cmH20 Weaning Respiratory Rate 25 br/min Weaning Rapid Shallow Breathing Index 41 Weaning Tidal Volume 0.69 L Weaning Minute Volume 15 L/min Spontaneous Breathing Trial Initiated 01/28/2024 7:34 EDT Heart Rate Monitored 61 bpm Systolic Blood Pressure Non-Invasive 112 mmHg Diastolic Blood Pressure Non-Invasive 50 mmHg <LLOW Mean Arterial Pressure (NBP) 66 mmHg Respirations Unlabored Respiratory Pattern Detailed Vented Patient Airway Status Patent with support Ventilator Mode (PSV) Pressure Support Ventilation Positive End Expiratory Pressure 5 cmH20 Pressure Support 5 cmH20 FiO2 40 % Flow Trigger (range 0.3 - 15 L/min.) 2 L/min Tube Compensation On Ventilator Model Drager [id number] Ventilator ID 6 Vent FiO2 40 % Respiratory Rate Total 25 br/min HI Minute Volume 13 L/min Tidal Volume, Exhaled 0.638 L Resuscitation Bag Available Yes Mask, Obturator, Syringe at bedside Yes Vent Alarms On and Functional Yes Vent Alarm Apnea 20 second(s) Vent Alarm High Pressure 40 cmH20 High Tidal Volume 1 Vent Alarm High Rate 40 br/min Vent Alarm Low Minute Volume 2 L/min Vent Alarm High Minute Volume 24 L/min Oxygen Saturation 98 % HME (Heat & Moisture Exchanger) On Patient Position Semi-Thrasher's Cuffed endotracheal tube 8 01/21/2024 Endotracheal Tube Activity: Assessed Endotracheal Tube Placement: Oral, right ET Tube Insertion cm [place] at Lip: 23 cm Endotracheal Tube Position Confirmation: Breath sounds Endotracheal Tube Cuff Pressure: 30 cm/H2O Endotracheal Tube Cuff Pressure Method: Measured Endotracheal Tube Status: Patent, Secure, manufactured tube alfredo Endotracheal Tube Care: Repositioned Level of Consciousness Alert 01/28/2024 7:31 EDT CHG Preoperative Wash/Wipe Day of procedure 01/28/2024 7:05 EDT chlorhexidine topical 15 mL mL ocular lubricant 1 drop(s) drop(s) 01/28/2024 7:04 EDT micafungin 100 mg mg Sodium Chloride 0.9% 100 mL mL 01/28/2024 7:03 EDT Blood Glucose, Capillary 180 mg/dL HI Blood Glucose Testing Reason Routine Temperature Oral 36.8 DegC Apical Heart Rate 71 bpm Heart Rate Monitored 71 bpm Respiratory Rate 29 br/min HI Systolic Blood Pressure Non-Invasive 113 mmHg Diastolic Blood Pressure Non-Invasive 50 mmHg <LLOW Mean Arterial Pressure (NBP) 67 mmHg Reason For Taking VItal Signs Routine Oral Care ICU Done Teeth Brushed Done Eye Care Done Sedation Level -1 Drowsy Sedation Level Interventions Calm Intra-abdominal Pressure 10 Primary Pain Intensity 3 Primary Pain Nonverbal Response Appears restful Pain Scale Type Behavioral pain scale Monitor Alarms On and Limits Checked Nail Bed Color [place] Capillary Refill < 2 seconds Heart Sounds ICU S1S2 Heart Rhythm Regular Dorsalis Pedis Pulse, Left 1+ Thready Dorsalis Pedis Pulse, Right 1+ Thready Posttibial Pulse, Left 1+ Thready Posttibial Pulse, Right 1+ Thready Radial Pulse, Left 2+ Normal Radial Pulse, Right 2+ Normal Generalized Edema Ratin+ mild/4mm Sclera edema Bilateral Edema Ratin+ mild/4mm Hand edema Bilateral Edema Ratin+ mild/4mm Cardiac Rhythm Sinus rhythm Monitoring Lead II, V1/MCL1 Alarms On and Functional Yes Heart Rate Alarm Set At - Low 50 Heart Rate Alarm Set At - High 120 NSBP Alarm Low 90 NSBP Alarm High 160 HI Respirations Unlabored Respiratory Pattern Regular Respiratory Pattern Detailed Vented Chest Motion Symmetrical Patient Airway Status Patent with support Breath Sounds Auscultated Anterior only All Lobes Breath Sounds Clear, Diminished Suction Method Endotracheal Cough Weak Suction Device Inline suctioning Sputum Amount Scant Sputum Color Cream Sputum Consistency Thick Ventilator Mode (A/C) Assist/Control Ventilation Ventilator Frequency, Mandatory 24 br/min Tidal Volume, Delivered 0.500 L Positive End Expiratory Pressure 8 cmH20 FiO2 50 % Vent FiO2 50 % Tidal Volume, Exhaled 0.564 L Resuscitation Bag Available Yes Vent Alarms On and Functional Yes Oxygen Therapy Ventilator Oxygen Saturation 96 % Tracheal Position Midline Cuffed endotracheal tube 8 01/21/2024 Endotracheal Tube Activity: Assessed Endotracheal Tube Placement: Oral, mid ET Tube Insertion cm [place] at Lip: 23 cm Endotracheal Tube Position Confirmation: Breath sounds Endotracheal Tube Status: Patent, Secure, manufactured tube alfredo Endotracheal Tube Care: Oral care Abdomen Description Rounded Abdomen Palpation Semi-firm Bowel Continence No bowel movement Bowel Sounds All Quadrants Hypoactive Nasogastric (NG) Nostril, left Gastrointestinal Tube Activity: Assessed Enteral Tube Insertion cm [place] at Nare: 78 cm GI Tube Method of Drainage: Medium Intermittent Suction Gastric Output Description: Bile Gastrointestinal Tube Site Condition: No complications GI Tube Placement Confirmation: Aspiration Urinary Elimination Urinary catheter draining Urinary Elimination Devices Indwelling catheter Urethral Indwelling/Continuous 16 Fr 01/21/2024 Urinary Catheter Indication: ICU Patient-Hemodynamic instability Urinary Catheter Activity: Assessed Urinary Catheter Secured: Securement device on Urinary Catheter Drainage System: Dependent drainage bag Urinary Catheter Site Condition: No complications Facial Movement Makes facial grimaces Skin Symptoms Bruising All Extremity Description Normal for ethnicity Skin Temperature Warm Temperature All Extremities Warm Skin Description Normal for ethnicity Skin Integrity Not intact Skin Turgor Non-Elastic Mucous Membrane Color [place] Mucous Membrane Description Moist Skin Color General Usual for ethnicity Skin Moisture General Dry Abdomen Anterior Skin Abnormality Type: Surgical incision Wound Status: Unchanged Abdomen Left Lateral Skin Abnormality Type: Tear Wound Status: Unchanged Luke-Barillas # 1 Abdomen Right Surgical Drain, Tube Activity: Assessed Surgical Drain, Tube Care: [place] collapsed Surgical Drain Site Condition: No complications Surgical Drain, Tube Dressing Condition: Clean, Dry, Intact Surgical Drain, Tube Dressing/Activity: Gauze Surgical Drain, Tube Drainage Method: Compression Luke-Bar[place] # 2 Abdomen Right Surgical Drain, Tube Activity: Assessed Surgical Drain, Tube Care: [place] collapsed Surgical Drain Site Condition: No complications Surgical Drain, Tube Dressing Condition: Clean, Dry, Intact Surgical Drain, Tube Dressing/Activity: Gauze Surgical Drain, Tube Drainage Method: Compression Luke-Bar[place] # 3 Abdomen Right Surgical Drain, Tube Activity: Assessed Surgical Drain, Tube Care: [place] collapsed Surgical Drain Site Condition: No complications Surgical Drain, Tube Dressing Condition: Clean, Dry, Intact Surgical Drain, Tube Dressing/Activity: Gauze Surgical Drain, Tube Drainage Method: Compression Luke-Barillas # 4 Abdomen Left Surgical Drain, Tube Activity: Assessed Surgical Drain, Tube Care: [place] collapsed Surgical Drain Site Condition: No complications Surgical Drain, Tube Dressing Condition: Clean, Dry, Intact Surgical Drain, Tube Dressing/Activity: Gauze Surgical Drain, Tube Drainage Method: Compression Luke-[place] Left Surgical Drain, Tube Activity: Assessed Surgical Drain, Tube Care: [place] collapsed Surgical Drain Site Condition: No complications Surgical Drain, Tube Dressing Condition: Clean, Dry, Intact Surgical Drain, Tube Dressing/Activity: Gauze Surgical Drain, Tube Drainage Method: Compression Continuous IV Infusions TPN@80 Triple Lumen Internal jugular vein Left 01/22/2024 Central IV Activity: Assessed Central IV Number of Lumens: Triple Central IV Patency Proximal Port: Continuous infusion Central IV Patency Distal Port: Continuous infusion Central IV Patency Medial Port: Continuous infusion Central IV Dressing Condition: Clean, Dry, Intact Central IV Dressing / Activity: CHG gel pad all-in-one dressing Central IV Site Condition: No complications Central IV Equipment: IV Pump Central IV CVP Line Status: Accurate, optimally damped Central IV CVP Line Care: Catheter position corrected/withdrawn, Correct catheter position confirmed, Square Wave Test Neurological Language Intubated or other physical barrier Neurological Symptoms Sedated Gait Unable to assess Extremity Movement Equal Characteristics of Communication Unable to speak, due to vent Characteristics of Speech Unable to assess Facial Symmetry Symmetric Level of Consciousness Arousable with minimal stimulation Eye Opening Response Nathan To voice Best Motor Response Nathan Obeys simple commands Best Verbal Response [place] None [place] Coma Score 10 Response to Stimuli Affected by Sedation GALILEA Yes Left Pupil Description Regular, Round Right Pupil Description Regular, Round Left Pupil Reaction Sluggish Right Pupil Reaction Sluggish Pupil Size, Left 2 mm Pupil Size, Right 2 mm Strength All Extremities Weak Left Upper Extremity Sensation Intact Right Upper Extremity Sensation Intact Left Lower Extremity Sensation Intact Right Lower Extremity Sensation Intact CN V Facial Sensation Corneal reflex present CN VII Facial Expression and Symmetry Facial movement symmetrical CN IX, X Swallowing, Gag Reflex Gag reflex present Affect/Behavior Impulsive Orientation Follows simple commands Right lateral 16 Micronesian Chest Tube Activity: Assess Chest Tube Connectivity: Water-Seal 20 cm suction Chest Tube Water Seal Chamber Desc: Absence of Bubbling Chest Tube Interventions: Clamps at bedside Chest Tube Drainage Description: Straw colored Chest Tube Dressing Condition: Clean, Dry, Intact Chest Tube Dressing: Occlusive dressing Orientation Assessment Unable to evaluate Positioning Repositioned right side Beds/Devices low air loss bed Assistive Equipment boot(s) on Activity Assistance Maximum assistance Sequential Compression Device bilateral knee high applied/on Skin Care Preventative Intervention(s) heel(s)s elevated, turn and position system Standard Safety ID band on, Call device within reach, Bed in low position, Wheels locked, Upper/Half-Length side-rails up, Safety level maintained, Hazards removed from floor, Precautions maintained High Risk Safety Room located near nursing station, Door open, Room check performed Demonstrates Correct Call Light Use Yes dexmedeTOMIDine 0.5 mcg/kg/hr mcg insulin regular 4.5 unit(s)/hr unit(s) metoprolol 5 mg mg piperacillin-tazobactam 3.375 gram(s) gram(s) NS Premix Diluent NS Premix Diluent mL Sodium Chloride 0.9% Sodium Chloride 0.9% mL Degrees Head of Bed Elevated 30 01/28/2024 7:00 EDT Ventilator Activity On 01/28/2024 6:27 EDT Individuals Taught Patient Learning Readiness critical condition Barriers to Learning Acuity of illness Teaching Method Explanation Mechanical VTE Prophylaxis Education Purpose of Mechanical VTE Prophylaxis, Wear device at all times when in bed/chair, Always call for assistance to get out of bed Mechanical VTE Prophylaxis Education Not Done: See ICU flow (Not Done) Teaching Evaluation Needs further teaching Sequential Compression Device bilateral knee high applied/on Antiembolism Stockings Form Not Done (Not Done) Sequential Compression Device Form Sequential Compression Device Form 01/28/2024 6:00 EDT Soft limb holders (Cloth) Wrist, bilateral Restraint Technique: Non Violent Restraint Restraint Activity Type: Continue restraint, same episode Behavior Requiring Non Violent Restraint Attempts to remove medical management devices Type of Medical Devices: Monitoring equipment, Tubes/drains, IV/arterial access, Airway management equipment Rationale for Restraint: Attempting to remove devices, despite current restraints Range of Motion: Repositioned Restraint Skin Assessment: Skin intact, Pulses intact Restraint Nutrition/Hydration: IV fluid Restraint Hygiene/Elimination: Urinary catheter Other Standard Safety: Call device within reach, ID band check, Night light, Non-Slip footwear Bed Standard Safety: Bed alert on, Bed in low position, Upper/Half-length side rails up, Wheels locked, HOB elevated Restraint DC Readiness Attempts: Diversional activities, Enhanced observation, Environmental changes, Negotiation, Pain management, Postitioning/Turning, Reality orientation Restraint DC Intervention Status: Intervention attempted, not successful heparin Not Done: Not Appropriate at this Time (Not Done) 01/28/2024 5:55 EDT Sedation Level +1 Restless Sedation Level Interventions IV Sedation Increased dexmedeTOMIDine 0.5 mcg/kg/hr mcg Sodium Chloride 0.9% Sodium Chloride 0.9% mL 01/28/2024 5:40 EDT dexmedeTOMIDine Begin Bag 4 mL mcg Sodium Chloride 0.9% Begin Bag 96 mL mL 01/28/2024 5:37 EDT pantoprazole 40 mg mg 01/28/2024 5:34 EDT Blood Glucose, Capillary 213 mg/dL HI Blood Glucose Testing Reason Routine Heart Rate Monitored 75 bpm Respiratory Rate 25 br/min HI Systolic Blood Pressure Non-Invasive 148 mmHg HI Diastolic Blood Pressure Non-Invasive 50 mmHg <LLOW Mean Arterial Pressure (NBP) 75 mmHg Reason For Taking VItal Signs Routine Oral Care ICU Done Eye Care Done Sedation Level -1 Drowsy Sedation Level Interventions Calm Primary Pain Intensity 3 Primary Pain Nonverbal Response Appears restful Pain Scale Type Behavioral pain scale Monitor Alarms On and Limits Checked Nail Bed Color [place] Capillary Refill < 2 seconds Heart Sounds ICU S1S2 Heart Rhythm Regular Generalized Edema Ratin+ mild/4mm Sclera edema Bilateral Edema Ratin+ mild/4mm Hand edema Bilateral Edema Ratin+ mild/4mm Cardiac Rhythm Sinus rhythm Monitoring Lead II, V1/MCL1 Alarms On and Functional Yes Respirations Unlabored Respiratory Pattern Regular Respiratory Pattern Detailed Vented Patient Airway Status Patent with support Breath Sounds Auscultated Anterior only All Lobes Breath Sounds Clear, Diminished Ventilator Mode (A/C) Assist/Control Ventilation FiO2 50 % Tidal Volume, Exhaled 0.573 L Resuscitation Bag Available Yes Vent Alarms On and Functional Yes Oxygen Therapy Ventilator Oxygen Saturation 95 % Cuffed endotracheal tube 8 01/21/2024 Endotracheal Tube Activity: Assessed Endotracheal Tube Placement: Oral, mid ET Tube Insertion cm [place] at Lip: 23 cm Endotracheal Tube Position Confirmation: Breath sounds Endotracheal Tube Status: Patent, Secure, manufactured tube alfredo Endotracheal Tube Care: Oral care Abdomen Description Rounded Abdomen Palpation Semi-firm Bowel Continence No bowel movement Bowel Sounds All Quadrants Hypoactive Nasogastric (NG) Nostril, left Gastrointestinal Tube Activity: Assessed Enteral Tube Insertion cm [place] at Nare: 78 cm Gastrointestinal Tube Site Condition: No complications GI Tube Placement Confirmation: Aspiration Urinary Elimination Urinary catheter draining Urine Color Yellow Urine Description Medium amount Perineum Intact Urinary Elimination Devices Indwelling catheter Urethral Indwelling/Continuous 16 Fr 01/21/2024 Urinary Catheter Indication: ICU Patient-Hemodynamic instability Urinary Catheter Activity: Assessed Urinary Catheter Site Condition: No complications Urinary Catheter Output: 525 mL All Extremity Description Normal for ethnicity Temperature All Extremities Warm Mucous Membrane Color [place] Mucous Membrane Description Moist Abdomen Anterior Skin Abnormality Type: Surgical incision Wound Status: Unchanged Abdomen Left Lateral Skin Abnormality Type: Tear Wound Status: Unchanged Luke-[place] # 1 Abdomen Right Surgical Drain, Tube Activity: Assessed Surgical Drain, Tube Care: [place] collapsed Surgical Drain Site Condition: No complications Surgical Drain, Tube - Tube Descr: Serous Surgical Drain, Tube Output: 2 mL [place] # 2 Abdomen Right Surgical Drain, Tube Activity: Assessed Surgical Drain, Tube Care: [place] collapsed Surgical Drain Site Condition: No complications Surgical Drain, Tube - Tube Descr: Serous Surgical Drain, Tube Output: 15 mL [place] # 3 Abdomen Right Surgical Drain, Tube Activity: Assessed Surgical Drain, Tube Care: [place] collapsed Surgical Drain Site Condition: No complications Surgical Drain, Tube - Tube Descr: Serous Surgical Drain, Tube Output: 3 mL [place] # 4 Abdomen Left Surgical Drain, Tube Activity: Assessed Surgical Drain, Tube Care: [place] collapsed Surgical Drain Site Condition: No complications Surgical Drain, Tube Output: 5 mL [place] Left Surgical Drain, Tube Activity: Assessed Surgical Drain, Tube Care: [place] collapsed Surgical Drain Site Condition: No complications Surgical Drain, Tube - Tube Descr: Serous Surgical Drain, Tube Output: 5 mL Continuous IV Infusions TPN@80 Triple Lumen Internal jugular vein Left 01/22/2024 Central IV Activity: Assessed Central IV Number of Lumens: Triple Central IV Site Condition: No complications Central IV Equipment: IV Pump Neurological Symptoms Sedated Level of Consciousness Arousable with minimal stimulation Eye Opening Response Nathan To voice Best Motor Response [place] Obeys simple commands Best Verbal Response [place] None [place] Coma Score 10 Response to Stimuli Affected by Sedation GALILEA Yes Strength All Extremities Weak Affect/Behavior Impulsive Orientation Follows simple commands Right lateral 16 Micronesian Chest Tube Activity: Assess Chest Tube Connectivity: Water-Seal 20 cm suction Chest Tube Water Seal Chamber Desc: Absence of Bubbling Orientation Assessment Unable to evaluate Positioning Repositioned back Beds/Devices low air loss bed Assistive Equipment boot(s) on Activity Assistance Maximum assistance Sequential Compression Device bilateral knee high applied/on Skin Care Preventative Intervention(s) heel(s)s elevated, turn and position system Standard Safety ID band on, Call device within reach, Bed in low position, Wheels locked, Upper/Half-Length side-rails up, Safety level maintained, Hazards removed from floor, Precautions maintained High Risk Safety Room located near nursing station, Door open, Room check performed Demonstrates Correct Call Light Use Yes dexmedeTOMIDine 0.4 mcg/kg/hr mcg Sodium Chloride 0.9% Sodium Chloride 0.9% mL Degrees Head of Bed Elevated 30 01/28/2024 5:11 EDT ocular lubricant 1 mendy mendy 01/28/2024 4:44 EDT Mechanical VTE Prophylaxis Education Not Done: See ICU flow (Not Done) Mechanical VTE Prophylaxis Education Not Done: See ICU flow (Not Done) Mechanical VTE Prophylaxis Education Not Done: See ICU flow (Not Done) Mechanical VTE Prophylaxis Education Not Done: See ICU flow (Not Done) Mechanical VTE Prophylaxis Education Not Done: See ICU flow (Not Done) Mechanical VTE Prophylaxis Education Not Done: See ICU flow (Not Done) Sequential Compression Device Not Done: See ICU flow (Not Done) Sequential Compression Device Not Done: See ICU flow (Not Done) Sequential Compression Device Not Done: See ICU flow (Not Done) Antiembolism Stockings Form Not Done (Not Done) Antiembolism Stockings Form Not Done (Not Done) Antiembolism Stockings Form Not Done (Not Done) Sequential Compression Device Form Not Done (Not Done) Sequential Compression Device Form Not Done (Not Done) Sequential Compression Device Form Not Done (Not Done) 01/28/2024 4:11 EDT WBC 8.6 10^3/mcL RBC 3.27 10^6/mcL LOW Hgb 10.2 G/dL LOW Hct 30.2 % LOW MCV 92.4 fL MCH 31.1 pg MCHC 33.7 G/dL RDW 14.2 % Platelet 124 10^3/mcL LOW MPV 10.6 fL HI Neutrophil %, Manual 92.0 % HI Lymphocyte %, Manual 3.0 % LOW Monocyte %, Manual 2.0 % Eosinophil %, Manual 0.0 % Basophil %, Manual 0.0 % Bands 3.0 % Nucleated RBC 0.0 /100 WBC NA Neutrophil, Abs Manual 8.1 10^3/mcL Lymphocyte, Abs Manual 0.2 10^3/mcL LOW Monocyte, Abs Manual 0.2 10^3/mcL Eosinophil, Abs Manual 0.0 10^3/mcL Basophil, Abs Manual 0.0 10^3/mcL RBC Morph Normal Platelet Estimate Slt Decreased Platelet Clumps Few Toxic Gran 1+ Glucose Level 253 mg/dL HI Sodium Level 153 mEq/L HI Potassium Level 3.7 mEq/L Chloride 117 mEq/L HI CO2 29 mEq/L Electrolyte Balance 7.0 mEq/L BUN 88.0 mg/dL HI Creatinine Lvl (s) 2.28 mg/dL HI BUN/Creatinine Ratio 38.6 ratio HI Calcium Lvl 8.3 mg/dL LOW GFR Non- 28 ml/min/1.73sqm NA GFR 34 ml/min/1.73sqm NA Creatinine Clearance Calc 31.27 mL/min Slide Review Man Indicated 01/28/2024 4:00 EDT Soft limb holders (Cloth) Wrist, bilateral Restraint Technique: Non Violent Restraint Restraint Activity Type: Continue restraint, same episode Behavior Requiring Non Violent Restraint Attempts to remove medical management devices Type of Medical Devices: Monitoring equipment, Tubes/drains, IV/arterial access, Airway management equipment Rationale for Restraint: Attempting to remove devices, despite current restraints Range of Motion: Repositioned Restraint Skin Assessment: Skin intact, Pulses intact Restraint Nutrition/Hydration: IV fluid Restraint Hygiene/Elimination: Urinary catheter Other Standard Safety: Call device within reach, ID band check, Allergy Band on, Night light, Non-Slip footwear Bed Standard Safety: Bed alert on, Bed in low position, Upper/Half-length side rails up, Wheels locked, HOB elevated Restraint DC Readiness Attempts: Diversional activities, Enhanced observation, Environmental changes, Negotiation, Pain management, Postitioning/Turning, Reality orientation Restraint DC Intervention Status: Intervention attempted, not successful 01/28/2024 3:30 EDT Blood Glucose, Capillary 253 mg/dL HI Blood Glucose Testing Reason Routine Temperature Oral 36.8 DegC Heart Rate Monitored 66 bpm Respiratory Rate 28 br/min HI Systolic Blood Pressure Non-Invasive 102 mmHg Diastolic Blood Pressure Non-Invasive 48 mmHg <LLOW Mean Arterial Pressure (NBP) 63 mmHg Reason For Taking VItal Signs Routine Oral Care ICU Done Eye Care Done Sedation Level -1 Drowsy Sedation Level Interventions Calm Intra-abdominal Pressure 13 Primary Pain Intensity 3 Primary Pain Nonverbal Response Appears restful Pain Scale Type Behavioral pain scale Monitor Alarms On and Limits Checked Nail Bed Color [place] Capillary Refill < 2 seconds Heart Sounds ICU S1S2 Heart Rhythm Regular Dorsalis Pedis Pulse, Left 1+ Thready Dorsalis Pedis Pulse, Right 1+ Thready Posttibial Pulse, Left 1+ Thready Posttibial Pulse, Right 1+ Thready Radial Pulse, Left 2+ Normal Radial Pulse, Right 2+ Normal Generalized Edema Ratin+ mild/4mm Sclera edema Bilateral Edema Ratin+ mild/4mm Hand edema Bilateral Edema Ratin+ moderate/6mm Cardiac Rhythm Sinus rhythm Monitoring Lead II, V1/MCL1 Alarms On and Functional Yes Heart Rate Alarm Set At - Low 50 Heart Rate Alarm Set At - High 120 NSBP Alarm Low 90 NSBP Alarm High 160 HI Respirations Unlabored Respiratory Pattern Regular Respiratory Pattern Detailed Vented Chest Motion Symmetrical Patient Airway Status Patent with support Breath Sounds Auscultated Anterior only All Lobes Breath Sounds Clear, Diminished Suction Method Endotracheal Cough Weak Suction Device Inline suctioning Sputum Amount Scant Sputum Color Cream Sputum Consistency Thick Ventilator Mode (A/C) Assist/Control Ventilation Ventilator Frequency, Mandatory 24 br/min Tidal Volume, Delivered 0.500 L Positive End Expiratory Pressure 8 cmH20 FiO2 50 % Vent FiO2 50 % Tidal Volume, Exhaled 0.490 L Resuscitation Bag Available Yes Vent Alarms On and Functional Yes Oxygen Therapy Ventilator Oxygen Saturation 95 % Tracheal Position Midline Cuffed endotracheal tube 8 01/21/2024 Endotracheal Tube Activity: Assessed Endotracheal Tube Placement: Oral, mid ET Tube Insertion cm [place] at Lip: 23 cm Endotracheal Tube Position Confirmation: Breath sounds Endotracheal Tube Status: Patent, Secure, manufactured tube alfredo Endotracheal Tube Care: Oral care Abdomen Description Rounded Abdomen Palpation Semi-firm Bowel Continence No bowel movement Bowel Sounds All Quadrants Hypoactive Nasogastric (NG) Nostril, left Gastrointestinal Tube Activity: Assessed Enteral Tube Insertion cm [place] at Nare: 78 cm GI Tube Method of Drainage: Medium Intermittent Suction Gastric Output Description: Bile Gastrointestinal Tube Care: Oral care Gastrointestinal Tube Site Condition: No complications GI Tube Placement Confirmation: Aspiration Urinary Elimination Urinary catheter draining Urinary Elimination Devices Indwelling catheter Urethral Indwelling/Continuous 16 Fr 01/21/2024 Urinary Catheter Indication: ICU Patient-Hemodynamic instability Urinary Catheter Activity: Assessed Urinary Catheter Secured: Securement device on Urinary Catheter Drainage System: Dependent drainage bag Urinary Catheter Site Condition: No complications Facial Movement Makes facial grimaces Skin Symptoms Bruising All Extremity Description Normal for ethnicity Skin Temperature Warm Temperature All Extremities Warm Skin Description Normal for ethnicity Skin Integrity Not intact Skin Turgor Non-Elastic Mucous Membrane Color [place] Mucous Membrane Description Moist Skin Color General Usual for ethnicity Skin Moisture General Dry Abdomen Anterior Skin Abnormality Type: Surgical incision Incision, Wound Dressing/Activity: Assessed Incision, Wound Dressing Assessment: Clean, Dry, Intact Incision, Wound Dressing: Vacuum assisted closure Negative Pressure Wound SettinmmHg Wound Status: No complications Abdomen Left Lateral Skin Abnormality Type: Tear Incision, Wound Dressing/Activity: Assessed Incision, Wound Dressing Assessment: Clean, Dry, Intact Wound Status: No complications Luke-Barillas # 1 Abdomen Right Surgical Drain, Tube Activity: Assessed Surgical Drain, Tube Care: [place] collapsed Surgical Drain Site Condition: No complications Surgical Drain, Tube Dressing Condition: Clean, Dry, Intact Surgical Drain, Tube Dressing/Activity: Gauze Surgical Drain, Tube Drainage Method: Compression Luke-Barillas # 2 Abdomen Right Surgical Drain, Tube Activity: Assessed Surgical Drain, Tube Care: [place] collapsed Surgical Drain Site Condition: No complications Surgical Drain, Tube Dressing Condition: Clean, Dry, Intact Surgical Drain, Tube Dressing/Activity: Gauze Surgical Drain, Tube Drainage Method: Compression Luke-Barillas # 3 Abdomen Right Surgical Drain, Tube Activity: Assessed Surgical Drain, Tube Care: [place] collapsed Surgical Drain Site Condition: No complications Surgical Drain, Tube Dressing Condition: Clean, Dry, Intact Surgical Drain, Tube Dressing/Activity: Gauze Surgical Drain, Tube Drainage Method: Compression Luke-Barillas # 4 Abdomen Left Surgical Drain, Tube Activity: Assessed Surgical Drain, Tube Care: [place] collapsed Surgical Drain Site Condition: No complications Surgical Drain, Tube Dressing Condition: Clean, Dry, Intact Surgical Drain, Tube Dressing/Activity: Gauze Surgical Drain, Tube Drainage Method: Compression Luke-Barillas Left Surgical Drain, Tube Activity: Assessed Surgical Drain, Tube Care: [place] collapsed Surgical Drain Site Condition: No complications Surgical Drain, Tube Dressing Condition: Clean, Dry, Intact Surgical Drain, Tube Dressing/Activity: Gauze Surgical Drain, Tube Drainage Method: Compression Continuous IV Infusions TPN@80 Triple Lumen Internal jugular vein Left 01/22/2024 Central IV Activity: Assessed Central IV Number of Lumens: Triple Central IV Patency Proximal Port: Continuous infusion Central IV Patency Distal Port: Continuous infusion Central IV Patency Medial Port: Continuous infusion Central IV Dressing Condition: Clean, Dry, Intact Central IV Dressing / Activity: CHG gel pad all-in-one dressing Central IV Line Care: Alcohol port cap(s) in place Central IV Site Condition: No complications Central IV Equipment: IV Pump Central IV CVP Line Status: Accurate, optimally damped Central IV CVP Line Care: Catheter position corrected/withdrawn, Correct catheter position confirmed, Square Wave Test, Leveled, zeroed, calibrated Antecubital Right 01/21/2024 20 gauge Peripheral IV Activity: Discontinued Peripheral IV Line Status/Patency: Does not flush, No blood return Peripheral IV Site Condition: Erythema Peripheral IV Removal: Catheter intact, no resistance, Hemostasis within expected timeframe Peripheral IV Removal Reason: Site change Neurological Language Intubated or other physical barrier Neurological Symptoms Sedated Gait Unable to assess Extremity Movement Equal Characteristics of Communication Unable to speak, due to vent Characteristics of Speech Unable to assess Facial Symmetry Symmetric Level of Consciousness Arousable with minimal stimulation Eye Opening Response [place] To voice Best Motor Response Nathan Obeys simple commands Best Verbal Response [place] None [place] Coma Score 10 Response to Stimuli Affected by Sedation GALILEA Yes Left Pupil Description Regular, Round Right Pupil Description Regular, Round Left Pupil Reaction Sluggish Right Pupil Reaction Sluggish Pupil Size, Left 2 mm Pupil Size, Right 2 mm Left Upper Extremity Strength Absent Right Upper Extremity Strength Absent Left Lower Extremity Strength Weak Right Lower Extremity Strength Weak Left Upper Extremity Sensation Absent Right Upper Extremity Sensation Absent Left Lower Extremity Sensation Intact Right Lower Extremity Sensation Intact CN V Facial Sensation Corneal reflex present CN IX, X Swallowing, Gag Reflex Gag reflex present Affect/Behavior Impulsive Orientation Follows simple commands Right lateral 16 [place] Chest Tube Activity: Assess Chest Tube Connectivity: Water-Seal 20 cm suction Chest Tube Water Seal Chamber Desc: Absence of Bubbling Chest Tube Interventions: Clamps at bedside Chest Tube Drainage Description: Straw colored Chest Tube Dressing Condition: Clean, Dry, Intact Chest Tube Dressing: Occlusive dressing Orientation Assessment Unable to evaluate Positioning Repositioned left side Beds/Devices low air loss bed Assistive Equipment boot(s) on Activity Assistance Maximum assistance Sequential Compression Device bilateral knee high applied/on Skin Care Preventative Intervention(s) heel(s)s elevated, turn and position system Standard Safety ID band on, Call device within reach, Bed in low position, Wheels locked, Upper/Half-Length side-rails up, Safety level maintained, Hazards removed from floor, Precautions maintained High Risk Safety Room located near nursing station, Door open, Room check performed Demonstrates Correct Call Light Use Yes dexmedeTOMIDine 0.4 mcg/kg/hr mcg insulin regular 4.5 unit(s)/hr unit(s) NS Premix Diluent NS Premix Diluent mL Sodium Chloride 0.9% Sodium Chloride 0.9% mL Degrees Head of Bed Elevated 30 01/28/2024 3:20 EDT Ventilator Mode (A/C) Assist/Control Ventilation Breath Type VC (Volume Control) Ventilator Frequency, Mandatory 24 br/min Tidal Volume, Delivered 0.500 L Positive End Expiratory Pressure 8 cmH20 Flow Trigger (range 0.3 - 15 L/min.) 2.0 L/min Inspiratory Time (TI) 0.80 second(s) Ventilator Model Drager V500 Ventilator ID 6 Vent FiO2 50 % Respiratory Rate Total 25 br/min HI Minute Volume 12.3 L/min Respiratory Rate, Spontaneous 1 br/min Inspiratory to Expiratory (I:E) Ratio 1:2.1 Tidal Volume, Exhaled 0.516 L Peak Inspiratory Pressure 16 cmH20 Plateau Pressure 16 cmH20 Mean Airway Pressure 11 Resuscitation Bag Available Yes Mask, Obturator, Syringe at bedside Yes Vent Alarms On and Functional Yes Vent Alarm High Pressure 40 cmH20 High Tidal Volume 1.0 Vent Alarm High Rate 40 br/min Vent Alarm Low Minute Volume 2 L/min Vent Alarm High Minute Volume 24 L/min HME (Heat & Moisture Exchanger) On 01/28/2024 3:00 EDT Apical Heart Rate Not Done: Not Appropriate at this Time (Not Done) metoprolol Not Done: Not Appropriate at this Time (Not Done) 01/28/2024 2:48 EDT acetaminophen 1,000 mg mg 01/28/2024 2:30 EDT Soft limb holders (Cloth) Wrist, bilateral Restraint Technique: Non Violent Restraint Restraint Activity Type: Continue restraint, same episode Behavior Requiring Non Violent Restraint Attempts to remove medical management devices Type of Medical Devices: Monitoring equipment, Tubes/drains, IV/arterial access, Airway management equipment Rationale for Restraint: Attempting to remove devices, despite current restraints Range of Motion: Repositioned Restraint Skin Assessment: Skin intact, Pulses intact Restraint Nutrition/Hydration: IV fluid Restraint Hygiene/Elimination: Urinary catheter Other Standard Safety: Call device within reach, ID band check Bed Standard Safety: Bed alert on, Bed in low position Restraint DC Readiness Attempts: Postitioning/Turning Restraint DC Intervention Status: Intervention attempted, not successful 01/28/2024 2:12 EDT Blood Glucose, Capillary 251 mg/dL HI insulin regular 4.5 unit(s)/hr unit(s) NS Premix Diluent NS Premix Diluent mL 01/28/2024 1:47 EDT Urethral Indwelling/Continuous 16 Fr 01/21/2024 Urinary Catheter Activity: Assessed Urinary Catheter Site Condition: No complications Urinary Catheter Care Completed: Yes CHG Preoperative Wash/Wipe Daily CHG bath CHG Preoperative Wash/Wipe Night before procedure Skin Care Done Skin Care Product Applied CHG bath Skin Care Preventative Intervention(s) heel(s)s elevated Lorenza Care Two assist Linen Change Done 01/28/2024 1:30 EDT Heart Rate Monitored 71 bpm Respiratory Rate 24 br/min HI Systolic Blood Pressure Non-Invasive 115 mmHg Diastolic Blood Pressure Non-Invasive 48 mmHg <LLOW Mean Arterial Pressure (NBP) 65 mmHg Reason For Taking VItal Signs Routine Oral Care ICU Done Eye Care Done Sedation Level -1 Drowsy Sedation Level Interventions Calm Primary Pain Intensity 3 Primary Pain Nonverbal Response Appears restful Pain Scale Type PAINAD Monitor Alarms On and Limits Checked Nail Bed Color [place] Capillary Refill < 2 seconds Heart Sounds ICU S1S2 Heart Rhythm Regular Dorsalis Pedis Pulse, Left 1+ Thready Dorsalis Pedis Pulse, Right 1+ Thready Radial Pulse, Left 2+ Normal Radial Pulse, Right 2+ Normal Generalized Edema Ratin+ mild/4mm Sclera edema Bilateral Edema Ratin+ mild/4mm Hand edema Bilateral Edema Ratin+ moderate/6mm Cardiac Rhythm Sinus rhythm Monitoring Lead II, V1/MCL1 Alarms On and Functional Yes Heart Rate Alarm Set At - Low 50 Heart Rate Alarm Set At - High 120 NSBP Alarm Low 90 NSBP Alarm High 160 HI Respirations Unlabored Respiratory Pattern Regular Respiratory Pattern Detailed Vented Patient Airway Status Patent with support Breath Sounds Auscultated Anterior only All Lobes Breath Sounds Clear, Diminished Ventilator Mode (A/C) Assist/Control Ventilation Ventilator Frequency, Mandatory 24 br/min Tidal Volume, Delivered 0.500 L Positive End Expiratory Pressure 8 cmH20 FiO2 50 % Vent FiO2 50 % Tidal Volume, Exhaled 0.520 L Resuscitation Bag Available Yes Vent Alarms On and Functional Yes Oxygen Therapy Ventilator Oxygen Saturation 96 % Cuffed endotracheal tube 8 01/21/2024 Endotracheal Tube Activity: Assessed Endotracheal Tube Placement: Oral, mid Endotracheal Tube Status: Patent, Secure, manufactured tube alfredo Endotracheal Tube Care: Oral care Abdomen Description Non-distended, Rounded Abdomen Palpation Non-Tender Stool Description Smear, Soft Bowel Continence Incontinent Bowel Sounds All Quadrants Hypoactive Urinary Elimination Urinary catheter draining Urine Color Yellow, Ashly Urine Description Medium amount Perineum Intact Urinary Elimination Devices Indwelling catheter Urethral Indwelling/Continuous 16 Fr 01/21/2024 Urinary Catheter Activity: Assessed Urinary Catheter Site Condition: No complications Skin Symptoms Bruising All Extremity Description [place], Normal for ethnicity Skin Temperature Warm Temperature All Extremities Warm Skin Description [place], Normal for ethnicity Skin Integrity Not intact Skin Turgor Non-Elastic Mucous Membrane Color [place] Mucous Membrane Description Moist Skin Color General Usual for ethnicity Skin Moisture General Dry Abdomen Anterior Skin Abnormality Type: Surgical incision Incision, Wound Dressing/Activity: Assessed Incision, Wound Dressing Assessment: Clean, Dry, Intact Incision, Wound Dressing: Vacuum assisted closure Negative Pressure Wound SettinmmHg Wound Exudate Amount: Small Wound Status: No complications Abdomen Left Lateral Skin Abnormality Type: Tear Incision, Wound Dressing/Activity: Assessed Incision, Wound Dressing Assessment: Clean, Dry, Intact Incision, Wound Dressing: Band-Aid Wound Status: No complications Luke-Barillas # 1 Abdomen Right Surgical Drain, Tube Activity: Assessed Surgical Drain Site Condition: No complications Surgical Drain, Tube Dressing Condition: Clean, Dry, Intact Surgical Drain, Tube Dressing/Activity: Gauze Luke-Barillas # 2 Abdomen Right Surgical Drain, Tube Activity: Assessed Surgical Drain Site Condition: No complications Surgical Drain, Tube Dressing Condition: Clean, Dry, Intact Luke-Barillas # 3 Abdomen Right Surgical Drain, Tube Activity: Assessed Surgical Drain Site Condition: No complications Surgical Drain, Tube Dressing Condition: Clean, Dry, Intact Surgical Drain, Tube - Tube Descr: Serous Luke-Barillas # 4 Abdomen Left Surgical Drain, Tube Activity: Assessed Surgical Drain Site Condition: No complications Surgical Drain, Tube - Tube Descr: Serous [place] Left Surgical Drain, Tube Activity: Assessed Surgical Drain, Tube - Tube Descr: Serous Triple Lumen Internal jugular vein Left 01/22/2024 Central IV Activity: Assessed Central IV Number of Lumens: Triple Central IV Site Condition: No complications Antecubital Right 01/21/2024 20 gauge Peripheral IV Activity: Assessed Peripheral IV Site Condition: No complications Peripheral IV Equipment: PRN Adaptor Neurological Language Intubated or other physical barrier Characteristics of Communication Unable to speak, due to vent Characteristics of Speech Unable to assess Level of Consciousness Arousable with repeated stimulation Eye Opening Response Nathan To voice Best Motor Response Nathan Flaccid Best Verbal Response Nathan None [place] Coma Score 5 GALILEA Yes Left Upper Extremity Strength Absent Right Upper Extremity Strength Absent Left Lower Extremity Strength Weak Right Lower Extremity Strength Weak Left Upper Extremity Sensation Absent Right Upper Extremity Sensation Absent Left Lower Extremity Sensation Intact Right Lower Extremity Sensation Intact Violence Risk Confused Yes Violence Risk Irritable No Violence Risk [place] No Violence Risk Verbal Threats No Violence Risk Physical Threats No Violence Risk Attacking Objects No Violence Risk Predictor Score 1 Violence Risk Intervention Decrease stimulation Violence Risk Current Interventions Restraint Non Violent Affect/Behavior Impulsive Orientation Does not interact Right lateral 16 [place] Chest Tube Activity: Assess Chest Tube Connectivity: Water-Seal 20 cm suction Chest Tube Water Seal Chamber Desc: Absence of Bubbling Chest Tube Interventions: System changed Chest Tube Drainage Description: Straw colored Chest Tube Dressing Condition: Intact, Drainage present Chest Tube Dressing: Occlusive dressing Chest Tube Output: 43 mL Orientation Assessment Unable to evaluate Positioning Repositioned right side Activity Status ADL Resting Beds/Devices low air loss bed Assistive Equipment boot(s) on Activity Assistance Maximum assistance Sequential Compression Device bilateral knee high applied/on NPO Status Maintained Oral Care Oral care protocol Skin Care Preventative Intervention(s) heel(s)s elevated Standard Safety ID band on, Call device within reach, Bed in low position, Wheels locked, Upper/Half-Length side-rails up, Phone within reach, personal items within reach, Safety level maintained High Risk Safety Room check performed Demonstrates Correct Call Light Use Yes dexmedeTOMIDine 0.4 mcg/kg/hr mcg Sodium Chloride 0.9% Sodium Chloride 0.9% mL Degrees Head of Bed Elevated 30 Stool Count 1 EA 01/28/2024 0:30 EDT Soft limb holders (Cloth) Wrist, bilateral Restraint Technique: Non Violent Restraint Restraint Activity Type: Continue restraint, same episode Behavior Requiring Non Violent Restraint Attempts to remove medical management devices Type of Medical Devices: Monitoring equipment, Tubes/drains, IV/arterial access, Airway management equipment Rationale for Restraint: Attempting to remove devices, despite current restraints Range of Motion: Repositioned Restraint Skin Assessment: Skin intact, Pulses intact Restraint Nutrition/Hydration: IV fluid, NPO Restraint Hygiene/Elimination: Urinary catheter, Diaper check Other Standard Safety: Call device within reach, ID band check Bed Standard Safety: Bed alert on, Bed in low position, Upper/Half-length side rails up, Wheels locked, HOB elevated Restraint DC Readiness Attempts: Postitioning/Turning Restraint DC Intervention Status: Intervention attempted, not successful 01/28/2024 0:17 EDT ocular lubricant 1 drop(s) drop(s) piperacillin-tazobactam 3.375 gram(s) gram(s) 01/28/2024 0:00 EDT Intra-abdominal Pressure 12 Positioning Repositioned back 01/27/2024 23:41 EDT Sedation Level -3 Moderate Sedation Sedation Level Interventions IV Sedation Decreased dexmedeTOMIDine 0.4 mcg/kg/hr mcg Sodium Chloride 0.9% Sodium Chloride 0.9% mL 01/27/2024 23:30 EDT Temperature Oral 36.7 DegC Heart Rate Monitored 68 bpm Respiratory Rate 24 br/min HI Systolic Blood Pressure Non-Invasive 98 mmHg Diastolic Blood Pressure Non-Invasive 45 mmHg <LLOW Mean Arterial Pressure (NBP) 62 mmHg Reason For Taking VItal Signs Routine Oral Care ICU Done Teeth Brushed Done Eye Care Done Primary Pain Intensity 3 Primary Pain Nonverbal Response Appears restful Pain Scale Type Behavioral pain scale Monitor Alarms On and Limits Checked Nail Bed Color [place] Capillary Refill < 2 seconds Heart Sounds ICU S1S2 Heart Rhythm Regular Dorsalis Pedis Pulse, Left 1+ Thready Dorsalis Pedis Pulse, Right 1+ Thready Posttibial Pulse, Left 1+ Thready Posttibial Pulse, Right 1+ Thready Radial Pulse, Left 2+ Normal Radial Pulse, Right 2+ Normal Generalized Edema Ratin+ mild/4mm Sclera edema Bilateral Edema Ratin+ mild/4mm Hand edema Bilateral Edema Ratin+ moderate/6mm Cardiac Rhythm Sinus rhythm Monitoring Lead II, V1/MCL1 Alarms On and Functional Yes Heart Rate Alarm Set At - Low 50 Heart Rate Alarm Set At - High 120 NSBP Alarm Low 90 NSBP Alarm High 160 HI Respirations Unlabored Respiratory Pattern Regular Respiratory Pattern Detailed Vented Patient Airway Status Patent without support Breath Sounds Auscultated Anterior only All Lobes Breath Sounds Clear, Diminished Ventilator Mode (A/C) Assist/Control Ventilation Ventilator Frequency, Mandatory 24 br/min Tidal Volume, Delivered 0.500 L Positive End Expiratory Pressure 8 cmH20 FiO2 50 % Vent FiO2 50 % Tidal Volume, Exhaled 0.491 L Resuscitation Bag Available Yes Vent Alarms On and Functional Yes Oxygen Therapy Ventilator Oxygen Saturation 94 % Cuffed endotracheal tube 8 01/21/2024 Endotracheal Tube Activity: Assessed Endotracheal Tube Placement: Oral, mid ET Tube Insertion cm [place] at Lip: 23 cm Endotracheal Tube Status: Patent, Secure, manufactured tube alfredo Endotracheal Tube Care: Oral care Abdomen Description Non-distended Abdomen Palpation Non-Tender Bowel Continence No bowel movement Bowel Sounds All Quadrants Hypoactive Nasogastric (NG) Nostril, left Gastrointestinal Tube Activity: Assessed Enteral Tube Insertion cm [place] at Nare: 78 cm GI Tube Method of Drainage: Medium Intermittent Suction Gastric Output Description: Bile Gastrointestinal Tube Care: Oral care Gastrointestinal Tube Site Condition: No complications Gastric Tube Output: In Error mL (In Error) GI Tube Placement Confirmation: Aspiration Urinary Elimination Urinary catheter draining Urine Color Yellow, Ashly Urine Description Medium amount Perineum Intact Urinary Elimination Devices Indwelling catheter Urethral Indwelling/Continuous 16 Fr 01/21/2024 Urinary Catheter Indication: ICU Patient-Hemodynamic instability Urinary Catheter Activity: Assessed Urinary Catheter Secured: Securement device on Urinary Catheter Drainage System: Dependent drainage bag Urinary Catheter Site Condition: No complications Facial Movement Makes facial grimaces Skin Symptoms Bruising All Extremity Description [place], Normal for ethnicity Skin Temperature Warm Temperature All Extremities Warm Skin Description [place], Normal for ethnicity Skin Integrity Not intact Skin Turgor Non-Elastic Mucous Membrane Color [place] Mucous Membrane Description Moist Skin Color General Usual for ethnicity Skin Moisture General Dry Abdomen Anterior Skin Abnormality Type: Surgical incision Incision, Wound Dressing/Activity: Assessed Incision, Wound Dressing Assessment: Clean, Dry, Intact Incision, Wound Dressing: Vacuum assisted closure Negative Pressure Wound SettinmmHg Wound Exudate Amount: Small Wound Status: No complications Abdomen Left Lateral Skin Abnormality Type: Tear Wound Status: No complications Luke-Barillas # 1 Abdomen Right Surgical Drain, Tube Activity: Assessed Surgical Drain, Tube Care: [place] collapsed Surgical Drain Site Condition: No complications Surgical Drain, Tube Dressing Condition: Clean, Dry, Intact Surgical Drain, Tube Dressing/Activity: Gauze Surgical Drain, Tube Drainage Method: Compression Surgical Drain, Tube - Tube Descr: Serous Luke-Barillas # 2 Abdomen Right Surgical Drain, Tube Activity: Assessed Surgical Drain, Tube Care: [place] collapsed Surgical Drain Site Condition: No complications Surgical Drain, Tube Dressing Condition: Clean, Dry, Intact Surgical Drain, Tube Dressing/Activity: Gauze Surgical Drain, Tube Drainage Method: Compression Surgical Drain, Tube - Tube Descr: Serous Luke-Barillas # 3 Abdomen Right Surgical Drain, Tube Activity: Assessed Surgical Drain, Tube Care: [place] collapsed Surgical Drain Site Condition: No complications Surgical Drain, Tube Dressing Condition: Clean, Dry, Intact Surgical Drain, Tube Dressing/Activity: Gauze Surgical Drain, Tube Drainage Method: Compression Surgical Drain, Tube - Tube Descr: Serous Luke-Barillas # 4 Abdomen Left Surgical Drain, Tube Activity: Assessed Surgical Drain, Tube Care: [place] collapsed Surgical Drain Site Condition: No complications Surgical Drain, Tube Dressing Condition: Clean, Dry, Intact Surgical Drain, Tube Dressing/Activity: Gauze Surgical Drain, Tube Drainage Method: Compression Surgical Drain, Tube - Tube Descr: Serous Luke-Barillas Left Surgical Drain, Tube Activity: Assessed Surgical Drain, Tube Care: [place] collapsed Surgical Drain Site Condition: No complications Surgical Drain, Tube Dressing Condition: Clean, Dry, Intact Surgical Drain, Tube Dressing/Activity: Gauze Surgical Drain, Tube Drainage Method: Compression Surgical Drain, Tube - Tube Descr: Serous Triple Lumen Internal jugular vein Left 01/22/2024 Central IV Activity: Assessed Central IV Number of Lumens: Triple Central IV Patency Proximal Port: Continuous infusion Central IV Patency Distal Port: Continuous infusion Central IV Patency Medial Port: Continuous infusion Central IV Dressing Condition: Clean, Dry, Intact Central IV Dressing / Activity: CHG gel pad all-in-one dressing Central IV Site Condition: No complications Central IV Equipment: IV Pump Central IV CVP Line Status: Accurate, optimally damped Central IV CVP Line Care: Correct catheter position confirmed, Square Wave Test, Leveled, zeroed, calibrated Antecubital Right 01/21/2024 20 gauge Peripheral IV Activity: Assessed Peripheral IV Dressing Condition: Clean, Dry, Intact Peripheral IV Dressing Activity: Transparent dressing Peripheral IV Line Status/Patency: Flushes easily Peripheral IV Site Condition: No complications Peripheral IV Equipment: PRN Adaptor Neurological Language Intubated or other physical barrier Gait Unable to assess Extremity Movement Equal Characteristics of Communication Unable to speak, due to vent Characteristics of Speech Unable to assess Facial Symmetry Symmetric Level of Consciousness Unresponsive Eye Opening Response Nathan To voice Best Motor Response [place] Flaccid Best Verbal Response Nathan None [place] Coma Score 5 GALILEA Yes Left Pupil Description Regular Right Pupil Description Regular Left Pupil Reaction Sluggish Right Pupil Reaction Sluggish Pupil Size, Left 2 mm Pupil Size, Right 2 mm Left Upper Extremity Strength Absent Right Upper Extremity Strength Absent Left Lower Extremity Strength Weak Right Lower Extremity Strength Weak CN V Facial Sensation Corneal reflex present CN VII Facial Expression and Symmetry Facial movement symmetrical CN IX, X Swallowing, Gag Reflex Gag reflex present Violence Risk Confused Yes Violence Risk Irritable No Violence Risk Boisterous No Violence Risk Verbal Threats No Violence Risk Physical Threats No Violence Risk Attacking Objects No Violence Risk Predictor Score 1 Violence Risk Intervention Decrease stimulation Violence Risk Current Interventions Restraint Non Violent Affect/Behavior Impulsive Orientation Does not interact Right lateral 16 Micron[place] Chest Tube Activity: Assess Chest Tube Connectivity: Water-Seal 20 cm suction Chest Tube Water Seal Chamber Desc: Absence of Bubbling Chest Tube Interventions: Clamps at bedside Chest Tube Drainage Description: Straw colored Chest Tube Dressing Condition: Clean, Dry, Intact Chest Tube Dressing: Occlusive dressing Orientation Assessment Unable to evaluate Activity Status ADL Resting Beds/Devices low air loss bed Assistive Equipment boot(s) on Activity Assistance Maximum assistance Sequential Compression Device bilateral knee high applied/on NPO Status Maintained Oral Care Oral care protocol Skin Care Preventative Intervention(s) heel(s)s elevated Nurse Safety Checks q2hrs Performed 11pm-3am Standard Safety ID band on, Call device within reach, Bed in low position, Wheels locked, Upper/Half-Length side-rails up, Phone within reach, personal items within reach, Safety level maintained High Risk Safety Room check performed Demonstrates Correct Call Light Use Yes RN Coordination of Care 11pm-3am Degrees Head of Bed Elevated 30 Stool Count 0 EA 01/27/2024 23:21 EDT TPN Begin Bag 1,920 mL mL amino acids in TPN Begin Bag 6 % % calcium gluconate in TPN Begin Bag 9 mEq/L mEq/L dextrose in TPN Begin Bag 15 % % lipids in TPN Begin Bag 3 % % magnesium sulfate in TPN Begin Bag 5 mEq/L mEq/L multivitamin in TPN Begin Bag 10 mL/day mL/day potassium phosphate in TPN Begin Bag 15 mEq/L mEq/L trace elements in TPN Begin Bag 1 mL/day mL/day 01/27/2024 23:00 EDT Patient Airway Status Patent with support Ventilator Mode (A/C) Assist/Control Ventilation Breath Type VC (Volume Control) Ventilator Frequency, Mandatory 24 br/min Tidal Volume, Delivered 0.500 L Positive End Expiratory Pressure 8 cmH20 Flow Trigger (range 0.3 - 15 L/min.) 2.0 L/min Inspiratory Time (TI) 0.80 second(s) Ventilator Model Drager V500 Ventilator ID 6 Vent FiO2 50 % Respiratory Rate Total 27 br/min HI Minute Volume 11.6 L/min Respiratory Rate, Spontaneous 3 br/min Inspiratory to Expiratory (I:E) Ratio 1:2.0 Tidal Volume, Exhaled 0.649 L Peak Inspiratory Pressure 18 cmH20 Plateau Pressure 18 cmH20 Mean Airway Pressure 12 Resuscitation Bag Available Yes Mask, Obturator, Syringe at bedside Yes Vent Alarms On and Functional Yes Vent Alarm High Pressure 40 cmH20 High Tidal Volume 1.0 Vent Alarm High Rate 40 br/min Vent Alarm Low Minute Volume 2 L/min Vent Alarm High Minute Volume 24 L/min HME (Heat & Moisture Exchanger) On Cuffed endotracheal tube 8 01/21/2024 Endotracheal Tube Activity: Assessed Endotracheal Tube Placement: Oral, mid ET Tube Insertion cm [place] at Lip: 23 cm Endotracheal Tube Cuff Pressure Method: Minimum occlusion volume Endotracheal Tube Status: Secure, manufactured tube alfredo 01/27/2024 22:59 EDT dexmedeTOMIDine 536 mcg mcg insulin regular 16 unit(s) unit(s) norepinephrine 0.16 mg mg Dextrose 5% in Lact Ringers Injection 100 mL mL NS Premix Diluent 5 mL mL NS Premix Diluent 16 mL mL Sodium Chloride 0.9% 128.64 mL mL 01/27/2024 22:58 EDT Blood Glucose, Capillary 232 mg/dL [place] Blood Glucose Testing Reason Routine Nasogastric (NG) Nostril, left Gastric Tube Output: 100 mL Urethral Indwelling/Continuous 16 Fr 01/21/2024 Urinary Catheter Output: 750 mL Luke-Barillas # 1 Abdomen Right Surgical Drain, Tube Output: 4 mL Luke-Barillas # 2 Abdomen Right Surgical Drain, Tube Output: 25 mL Luke-Barillas # 3 Abdomen Right Surgical Drain, Tube Output: 17 mL Luke-Barillas # 4 Abdomen Left Surgical Drain, Tube Output: 3.5 mL Luke-Barillas Left Surgical Drain, Tube Output: 2 mL 01/27/2024 22:30 EDT Heart Rate Monitored 70 bpm Systolic Blood Pressure Non-Invasive 123 mmHg Diastolic Blood Pressure Non-Invasive 55 mmHg LOW Mean Arterial Pressure (NBP) 74 mmHg Reason For Taking VItal Signs Routine Monitor Alarms On and Limits Checked Heart Sounds ICU S1S2 Heart Rhythm Regular Oxygen Saturation 97 % Soft limb holders (Cloth) Wrist, bilateral Pre-restraint Alternatives Attempted: Positioning/Turning Restraint Technique: Non Violent Restraint Restraint Activity Type: Continue restraint, same episode Behavior Requiring Non Violent Restraint Attempts to remove medical management devices Type of Medical Devices: Monitoring equipment, Tubes/drains, IV/arterial access, Airway management equipment Rationale for Restraint: Attempting to remove devices, despite current restraints Range of Motion: Repositioned Restraint Skin Assessment: Skin intact, Pulses intact Restraint Nutrition/Hydration: IV fluid Restraint Hygiene/Elimination: Urinary catheter Other Standard Safety: Call device within reach, ID band check Bed Standard Safety: Bed alert on, Bed in low position, Upper/Half-length side rails up, Wheels locked, HOB elevated Restraint DC Readiness Attempts: Postitioning/Turning Restraint DC Intervention Status: Intervention attempted, not successful Positioning Repositioned left side 01/27/2024 21:47 EDT CAM Mental Status Change & Fluctuation Not Done: Task Duplication (Not Done) CAM Inattention Not Done: Task Duplication (Not Done) CAM Disorganized Thinking Not Done: Task Duplication (Not Done) CAM Altered Level of Consciousness Not Done: Task Duplication (Not Done) Confusion Assessment Method Score Not Done: Task Duplication (Not Done) 01/27/2024 21:40 EDT Heart Rate Monitored 67 bpm Respiratory Rate 22 br/min HI Respiratory Rate 20 br/min Systolic Blood Pressure Non-Invasive 107 mmHg Diastolic Blood Pressure Non-Invasive 51 mmHg LOW Mean Arterial Pressure (NBP) 67 mmHg Reason For Taking VItal Signs Routine Reason For Taking VItal Signs Routine Oral Care ICU Done Eye Care Done Sedation Level -1 Drowsy Sedation Level Interventions Calm Primary Pain Intensity 3 Primary Pain Intensity 3 Primary Pain Nonverbal Response Appears restful Primary Pain Nonverbal Response Appears restful Pain Scale Type Behavioral pain scale Pain Scale Type Behavioral pain scale Monitor Alarms On and Limits Checked Nail Bed Color [place] Capillary Refill < 2 seconds Heart Sounds ICU S1S2 Heart Rhythm Regular Dorsalis Pedis Pulse, Left 1+ Thready Dorsalis Pedis Pulse, Right 1+ Thready Radial Pulse, Left 2+ Normal Radial Pulse, Right 2+ Normal Cardiac Rhythm Sinus rhythm Monitoring Lead II, V1/MCL1 Alarms On and Functional Yes Respirations Unlabored Respiratory Pattern Regular Respiratory Pattern Detailed Vented Patient Airway Status Patent with support Breath Sounds Auscultated Anterior only All Lobes Breath Sounds Clear, Diminished Ventilator Mode (A/C) Assist/Control Ventilation Ventilator Frequency, Mandatory 24 br/min Tidal Volume, Delivered 0.5 L Positive End Expiratory Pressure 8 cmH20 FiO2 50 % Vent FiO2 50 % Tidal Volume, Exhaled 0.510 L Resuscitation Bag Available Yes Vent Alarms On and Functional Yes Oxygen Therapy Ventilator Oxygen Saturation 95 % Cuffed endotracheal tube 8 01/21/2024 Endotracheal Tube Activity: Assessed Endotracheal Tube Placement: Oral, left ET Tube Insertion cm [place] at Lip: 23 cm Endotracheal Tube Status: Patent, Secure, manufactured tube alfredo Endotracheal Tube Care: Oral care Abdomen Description Non-distended Abdomen Palpation Non-Tender Bowel Continence No bowel movement Bowel Sounds All Quadrants Hypoactive Nasogastric (NG) Nostril, left Gastrointestinal Tube Activity: Assessed Enteral Tube Insertion cm [place] at Nare: 78 cm GI Tube Method of Drainage: Medium Intermittent Suction Gastric Output Description: Bile Gastrointestinal Tube Care: Oral care Gastrointestinal Tube Site Condition: No complications GI Tube Placement Confirmation: Aspiration Urinary Elimination Urinary catheter draining Urine Color Yellow, Ashly Urine Description Medium amount Perineum Intact Urinary Elimination Devices Indwelling catheter Urethral Indwelling/Continuous 16 Fr 01/21/2024 Urinary Catheter Activity: Assessed Urinary Catheter Secured: Securement device on Urinary Catheter Drainage System: Dependent drainage bag Urinary Catheter Site Condition: No complications Skin Symptoms Bruising All Extremity Description [place], Normal for ethnicity Skin Temperature Warm Temperature All Extremities Warm Skin Description [place], Normal for ethnicity Skin Integrity Not intact Skin Turgor Non-Elastic Mucous Membrane Color [place] Mucous Membrane Description Moist Skin Color General Usual for ethnicity Skin Moisture General Dry Luke-Barillas # 1 Abdomen Right Surgical Drain, Tube Activity: Assessed Surgical Drain Site Condition: No complications Luke-Barillas # 2 Abdomen Right Surgical Drain, Tube Activity: Assessed Surgical Drain Site Condition: No complications Luke-Barillas # 3 Abdomen Right Surgical Drain, Tube Activity: Assessed Surgical Drain Site Condition: No complications Luke-Barillas # 4 Abdomen Left Surgical Drain, Tube Activity: Assessed Surgical Drain Site Condition: No complications Luke-Barillas Left Surgical Drain, Tube Activity: Assessed Surgical Drain Site Condition: No complications Triple Lumen Internal jugular vein Left 01/22/2024 Central IV Activity: Assessed Central IV Site Condition: No complications Central IV Equipment: IV Pump Antecubital Right 01/21/2024 20 gauge Peripheral IV Activity: Assessed Peripheral IV Site Condition: No complications Peripheral IV Equipment: PRN Adaptor Neurological Language Intubated or other physical barrier Characteristics of Communication Unable to speak, due to vent Characteristics of Speech Unable to assess Level of Consciousness Unresponsive G[place]A Yes Strength All Extremities Absent Affect/Behavior Impulsive Orientation Does not interact Right lateral 16 [place] Chest Tube Activity: Assess Chest Tube Connectivity: Water-Seal 20 cm suction Chest Tube Water Seal Chamber Desc: Absence of Bubbling Chest Tube Interventions: Clamps at bedside Chest Tube Drainage Description: Straw colored Chest Tube Dressing Condition: Intact, Drainage present Chest Tube Dressing: Occlusive dressing Orientation Assessment Unable to evaluate Activity Status ADL Resting Beds/Devices low air loss bed Assistive Equipment boot(s) on Activity Assistance Maximum assistance Sequential Compression Device bilateral knee high applied/on NPO Status Maintained Oral Care Oral care protocol Skin Care Preventative Intervention(s) heel(s)s elevated Nurse Safety Checks q2hrs Performed 7pm-11pm Standard Safety ID band on, Call device within reach, Bed in low position, Wheels locked, Upper/Half-Length side-rails up, Phone within reach, personal items within reach, Safety level maintained High Risk Safety Room check performed Demonstrates Correct Call Light Use Yes RN Coordination of Care 7pm-11pm dexmedeTOMIDine 0.5 mcg/kg/hr mcg insulin regular 2.5 unit(s)/hr unit(s) NS Premix Diluent NS Premix Diluent mL Sodium Chloride 0.9% Sodium Chloride 0.9% mL Degrees Head of Bed Elevated 30 Stool Count 0 EA 01/27/2024 21:05 EDT chlorhexidine topical 15 mL mL dexmedeTOMIDine Begin Bag 4 mL mcg heparin 5,000 unit(s) unit(s) ocular lubricant 1 mendy mendy Sodium Chloride 0.9% Begin Bag 96 mL mL 01/27/2024 21:04 EDT acetaminophen 1,000 mg mg 01/27/2024 21:00 EDT Apical Heart Rate Not Done: Bradycardia (Not Done) metoprolol Not Done: Bradycardia (Not Done) 01/27/2024 20:50 EDT Soft limb holders (Cloth) Wrist, bilateral Restraint Technique: Non Violent Restraint Restraint Activity Type: Continue restraint, same episode Behavior Requiring Non Violent Restraint Attempts to remove medical management devices Type of Medical Devices: Monitoring equipment, Tubes/drains, IV/arterial access, Airway management equipment Rationale for Restraint: Attempting to remove devices, despite current restraints Range of Motion: Repositioned Restraint Skin Assessment: Skin intact, Pulses intact Restraint Nutrition/Hydration: IV fluid Restraint Hygiene/Elimination: Urinary catheter, Diaper check, Diaper dry Other Standard Safety: Call device within reach, ID band check Bed Standard Safety: Bed alert on, Bed in low position, Upper/Half-length side rails up, Wheels locked, HOB elevated Restraint DC Readiness Attempts: Postitioning/Turning Restraint DC Intervention Status: Intervention attempted, not successful 01/27/2024 20:30 EDT Temperature Oral 37.8 DegC HI Heart Rate Monitored 74 bpm Respiratory Rate 23 br/min HI Systolic Blood Pressure Non-Invasive 126 mmHg Diastolic Blood Pressure Non-Invasive 54 mmHg LOW Mean Arterial Pressure (NBP) 74 mmHg Reason For Taking VItal Signs Routine Oral Care ICU Done Teeth Brushed Done Eye Care Done Sedation Level -1 Drowsy Sedation Level Interventions Calm Primary Pain Intensity 3 Primary Pain Nonverbal Response Appears restful Pain Scale Type Behavioral pain scale Monitor Alarms On and Limits Checked Nail Bed Color [place] Capillary Refill < 2 seconds Heart Sounds ICU S1S2 Heart Rhythm Regular Dorsalis Pedis Pulse, Left 1+ Thready Dorsalis Pedis Pulse, Right 1+ [place] Radial Pulse, Left 2+ Normal Radial Pulse, Right 2+ Normal Generalized Edema Ratin+ mild/4mm Sclera edema Bilateral Edema Ratin+ trace/2mm Hand edema Bilateral Edema Ratin+ moderate/6mm Cardiac Rhythm Sinus rhythm Monitoring Lead II, V1/MCL1 Alarms On and Functional Yes Heart Rate Alarm Set At - Low 50 Heart Rate Alarm Set At - High 150 NSBP Alarm Low 90 NSBP Alarm High 160 HI Respirations Unlabored Respiratory Pattern Regular Respiratory Pattern Detailed Vented Patient Airway Status Patent with support Breath Sounds Auscultated Anterior only All Lobes Breath Sounds Clear, Diminished Ventilator Mode (A/C) Assist/Control Ventilation Ventilator Frequency, Mandatory 24 br/min Tidal Volume, Delivered 0.5 L Positive End Expiratory Pressure 8 cmH20 FiO2 50 % Vent FiO2 50 % Tidal Volume, Exhaled 0.492 L Resuscitation Bag Available Yes Vent Alarms On and Functional Yes Oxygen Therapy Ventilator Oxygen Saturation 96 % Cuffed endotracheal tube 8 01/21/2024 Endotracheal Tube Activity: Assessed Endotracheal Tube Placement: Oral, left ET Tube Insertion cm [place] at Lip: 23 cm Endotracheal Tube Status: Patent, Secure, manufactured tube alfredo Endotracheal Tube Care: Oral care Abdomen Description Non-distended Abdomen Palpation Non-Tender Bowel Continence No bowel movement Bowel Sounds All Quadrants Hypoactive Nasogastric (NG) Nostril, left Gastrointestinal Tube Activity: Assessed Enteral Tube Insertion cm [place] at Nare: 78 cm GI Tube Method of Drainage: Medium Continous Suction Gastric Output Description: Bile Gastrointestinal Tube Care: Oral care Gastrointestinal Tube Site Condition: No complications GI Tube Placement Confirmation: Aspiration Urinary Elimination Urinary catheter draining Urine Color Yellow, Ashly Urine Description Medium amount Perineum Intact Urinary Elimination Devices Indwelling catheter Urethral Indwelling/Continuous 16 Fr 01/21/2024 Urinary Catheter Indication: ICU Patient-Hemodynamic instability Urinary Catheter Activity: Assessed Urinary Catheter Secured: Securement device on Urinary Catheter Drainage System: Dependent drainage bag Urinary Catheter Site Condition: No complications Urinary Catheter Care Completed: Yes Facial Movement Makes facial grimaces Skin Symptoms Bruising All Extremity Description [place], Normal for ethnicity Skin Temperature Warm Temperature All Extremities Warm Skin Description [place], Normal for ethnicity Skin Integrity Not intact Skin Turgor Non-Elastic Mucous Membrane Color [place] Mucous Membrane Description Moist Skin Color General Usual for ethnicity Skin Moisture General Dry Abdomen Anterior Skin Abnormality Type: Surgical incision Incision, Wound Dressing/Activity: Assessed Incision, Wound Dressing Assessment: Clean, Dry, Intact Incision, Wound Dressing: Vacuum assisted closure Negative Pressure Wound SettinmmHg Wound Exudate Amount: Small Wound Status: No complications Abdomen Left Lateral Skin Abnormality Type: Tear Incision, Wound Dressing/Activity: Assessed Incision, Wound Dressing Assessment: Clean, Dry, Intact Incision, Wound Dressing: Band-Aid Wound Status: No complications Luke-Barillas # 1 Abdomen Right Surgical Drain, Tube Activity: Assessed Surgical Drain Site Condition: No complications Surgical Drain, Tube Dressing Condition: Drainage present Surgical Drain, Tube Dressing/Activity: Gauze Surgical Drain, Tube Drainage Method: Compression Surgical Drain, Tube - Tube Descr: Serous Luke-[place] # 2 Abdomen Right Surgical Drain, Tube Activity: Assessed Surgical Drain Site Condition: No complications Surgical Drain, Tube Dressing Condition: Clean, Dry, Intact Surgical Drain, Tube Dressing/Activity: Gauze Surgical Drain, Tube Drainage Method: Compression Surgical Drain, Tube - Tube Descr: Serous Luke-[place] # 3 Abdomen Right Surgical Drain, Tube Activity: Assessed Surgical Drain Site Condition: No complications (Modified) Surgical Drain, Tube Dressing Condition: Clean, Dry, Intact Surgical Drain, Tube Dressing/Activity: Gauze Surgical Drain, Tube - Tube Descr: Serous Luke-[place]illas # 4 Abdomen Left Surgical Drain, Tube Activity: Assessed Surgical Drain Site Condition: No complications Surgical Drain, Tube Dressing Condition: Clean, Dry, Intact Surgical Drain, Tube Dressing/Activity: Gauze Surgical Drain, Tube Drainage Method: Compression Surgical Drain, Tube - Tube Descr: Serous [place] Left Surgical Drain, Tube Activity: Assessed Surgical Drain Site Condition: No complications Surgical Drain, Tube Dressing Condition: Clean, Dry, Intact Surgical Drain, Tube Dressing/Activity: Gauze Surgical Drain, Tube Drainage Method: Compression Surgical Drain, Tube - Tube Descr: Serous Triple Lumen Internal jugular vein Left 01/22/2024 Central IV Activity: Assessed Central IV Number of Lumens: Triple Central IV Patency Proximal Port: Continuous infusion Central IV Patency Distal Port: Continuous infusion Central IV Patency Medial Port: Continuous infusion Central IV Dressing Condition: Clean, Dry, Intact Central IV Dressing / Activity: CHG gel pad all-in-one dressing Central IV Line Care: Alcohol port cap(s) in place Central IV Site Condition: No complications Central IV Equipment: IV Pump Central IV CVP Line Status: Accurate, optimally damped Central IV CVP Line Care: Correct catheter position confirmed, Square Wave Test, Leveled, zeroed, calibrated, Pressure device 300 mmHg Antecubital Right 01/21/2024 20 gauge Peripheral IV Activity: Assessed Peripheral IV Dressing Condition: Clean, Dry, Intact Peripheral IV Dressing Activity: Transparent dressing Peripheral IV Line Status/Patency: Flushes easily, 10ml normal saline flush Peripheral IV Site Condition: No complications Peripheral IV Equipment: PRN Adaptor Neurological Language Intubated or other physical barrier Gait Unable to assess Extremity Movement Equal Characteristics of Communication Unable to speak, due to vent Characteristics of Speech Unable to assess Facial Symmetry Symmetric Level of Consciousness Unresponsive Eye Opening Response Nathan To voice Best Motor Response [place] Flaccid Best Verbal Response [place] None [place] Coma Score 5 GALILEA Yes Left Pupil Description Regular Right Pupil Description Regular Left Pupil Reaction Sluggish Right Pupil Reaction Sluggish Pupil Size, Left 2 mm Pupil Size, Right 2 mm Strength All Extremities Absent CN V Facial Sensation Corneal reflex present CN VII Facial Expression and Symmetry Facial movement symmetrical CN IX, X Swallowing, Gag Reflex Gag reflex present Violence Risk Confused Yes Violence Risk Irritable No Violence Risk Boisterous No Violence Risk Verbal Threats No Violence Risk Physical Threats No Violence Risk Attacking Objects No Violence Risk Predictor Score 1 Violence Risk Intervention Decrease stimulation Violence Risk Current Interventions Restraint Non Violent Affect/Behavior Impulsive Orientation Does not interact Right lateral 16 [place]ron[place] Chest Tube Activity: Assess Chest Tube Connectivity: Water-Seal 20 cm suction Chest Tube Water Seal Chamber Desc: Absence of Bubbling Chest Tube Interventions: Clamps at bedside Chest Tube Drainage Description: Straw colored Chest Tube Dressing Condition: Clean, Dry, Intact Chest Tube Dressing: Occlusive dressing Orientation Assessment Unable to evaluate Positioning Repositioned right side Activity Status ADL Awake Beds/Devices low air loss bed Assistive Equipment boot(s) on Activity Assistance Maximum assistance Sequential Compression Device bilateral knee high applied/on NPO Status Maintained Oral Care Oral care protocol Skin Care Preventative Intervention(s) heel(s)s elevated Nurse Safety Checks q2hrs Performed 7pm-11pm Standard Safety ID band on, Call device within reach, Bed in low position, Wheels locked, Upper/Half-Length side-rails up, Phone within reach, personal items within reach, Safety level maintained High Risk Safety Room check performed Demonstrates Correct Call Light Use Yes RN Coordination of Care 7pm-11pm dexmedeTOMIDine 0.5 mcg/kg/hr mcg insulin regular 2.5 unit(s)/hr unit(s) NS Premix Diluent NS Premix Diluent mL Sodium Chloride 0.9% Sodium Chloride 0.9% mL Degrees Head of Bed Elevated 30 01/27/2024 20:08 EDT Blood Glucose, Capillary 248 mg/dL HI Blood Glucose Testing Reason Routine 01/27/2024 20:00 EDT Heart Rate Monitored 69 bpm Systolic Blood Pressure Non-Invasive 107 mmHg Diastolic Blood Pressure Non-Invasive 52 mmHg LOW Mean Arterial Pressure (NBP) 70 mmHg Oxygen Saturation 96 % 01/27/2024 19:49 EDT Heart Rate Monitored 69 bpm Systolic Blood Pressure Non-Invasive 121 mmHg Diastolic Blood Pressure Non-Invasive 52 mmHg LOW Mean Arterial Pressure (NBP) 70 mmHg Intra-abdominal Pressure 11 01/27/2024 19:45 EDT Heart Rate Monitored 67 bpm Systolic Blood Pressure Non-Invasive 92 mmHg Diastolic Blood Pressure Non-Invasive 47 mmHg <LLOW Mean Arterial Pressure (NBP) 61 mmHg dexmedeTOMIDine 0.5 mcg/kg/hr mcg Sodium Chloride 0.9% Sodium Chloride 0.9% mL 01/27/2024 19:30 EDT Heart Rate Monitored 74 bpm Systolic Blood Pressure Non-Invasive 94 mmHg Diastolic Blood Pressure Non-Invasive 55 mmHg LOW Mean Arterial Pressure (NBP) 67 mmHg 01/27/2024 19:18 EDT Ventilator Mode (A/C) Assist/Control Ventilation Breath Type VC (Volume Control) Ventilator Frequency, Mandatory 24 br/min Tidal Volume, Delivered 0.500 L Positive End Expiratory Pressure 8 cmH20 Flow Trigger (range 0.3 - 15 L/min.) 2.0 L/min Inspiratory Time (TI) 0.80 second(s) Ventilator Model [employer] V500 Ventilator ID 6 Vent FiO2 50 % Respiratory Rate Total 28 br/min HI Minute Volume 12.4 L/min Respiratory Rate, Spontaneous 4 br/min Inspiratory to Expiratory (I:E) Ratio 1:2.1 Tidal Volume, Exhaled 0.626 L Peak Inspiratory Pressure 19 cmH20 Plateau Pressure 19 cmH20 Mean Airway Pressure 12 Resuscitation Bag Available Yes Mask, Obturator, Syringe at bedside Yes Vent Alarms On and Functional Yes Vent Alarm High Pressure 40 cmH20 High Tidal Volume 1.0 Vent Alarm High Rate 40 br/min Vent Alarm Low Minute Volume 2 L/min Vent Alarm High Minute Volume 24 L/min HME (Heat & Moisture Exchanger) On 01/27/2024 19:15 EDT Heart Rate Monitored 66 bpm Systolic Blood Pressure Non-Invasive 103 mmHg Diastolic Blood Pressure Non-Invasive 48 mmHg <LLOW Mean Arterial Pressure (NBP) 63 mmHg 01/27/2024 19:14 EDT dexmedeTOMIDine 0.6 mcg/kg/hr mcg Sodium Chloride 0.9% Sodium Chloride 0.9% mL 01/27/2024 19:00 EDT Heart Rate Monitored 67 bpm Systolic Blood Pressure Non-Invasive 92 mmHg Diastolic Blood Pressure Non-Invasive 45 mmHg <LLOW Mean Arterial Pressure (NBP) 59 mmHg 01/27/2024 18:53 EDT Heart Rate Monitored 73 bpm Systolic Blood Pressure Non-Invasive 116 mmHg Diastolic Blood Pressure Non-Invasive 52 mmHg LOW Mean Arterial Pressure (NBP) 70 mmHg 01/27/2024 18:50 EDT Soft limb holders (Cloth) Wrist, bilateral Restraint Technique: Non Violent Restraint Restraint Activity Type: Continue restraint, same episode Behavior Requiring Non Violent Restraint Attempts to remove medical management devices Type of Medical Devices: Monitoring equipment, Tubes/drains, IV/arterial access, Airway management equipment Rationale for Restraint: Attempting to remove devices, despite current restraints Range of Motion: Repositioned Restraint Skin Assessment: Skin intact, Pulses intact Restraint Nutrition/Hydration: IV fluid Restraint Hygiene/Elimination: Urinary catheter Other Standard Safety: Call device within reach, ID band check, Allergy Band on, Night light Bed Standard Safety: Bed alert on, Wheels locked, HOB elevated Restraint DC Readiness Attempts: Postitioning/Turning Restraint DC Intervention Status: Intervention attempted, not successful 01/27/2024 18:45 EDT Heart Rate Monitored 68 bpm Systolic Blood Pressure Non-Invasive 94 mmHg Diastolic Blood Pressure Non-Invasive 45 mmHg <LLOW Mean Arterial Pressure (NBP) 59 mmHg 01/27/2024 18:30 EDT Heart Rate Monitored 75 bpm Systolic Blood Pressure Non-Invasive 117 mmHg Diastolic Blood Pressure Non-Invasive 52 mmHg LOW Mean Arterial Pressure (NBP) 71 mmHg 01/27/2024 18:15 EDT Heart Rate Monitored 72 bpm Systolic Blood Pressure Non-Invasive 126 mmHg Diastolic Blood Pressure Non-Invasive 55 mmHg LOW Mean Arterial Pressure (NBP) 74 mmHg 01/27/2024 18:00 EDT Blood Glucose, Capillary 250 mg/dL HI Blood Glucose Testing Reason Routine Heart Rate Monitored 72 bpm Respiratory Rate 26 br/min HI Systolic Blood Pressure Non-Invasive 121 mmHg Diastolic Blood Pressure Non-Invasive 57 mmHg LOW Mean Arterial Pressure (NBP) 75 mmHg Reason For Taking VItal Signs Routine Oral Care ICU Done Eye Care Done Sedation Level +1 Restless Sedation Level Interventions IV Sedation Increased Primary Pain Intensity 3 Primary Pain Nonverbal Response Appears restful Pain Scale Type Behavioral pain scale Monitor Alarms On and Limits Checked Nail Bed Color [place] Capillary Refill < 2 seconds Heart Sounds ICU S1S2 Heart Rhythm Regular Dorsalis Pedis Pulse, Left 1+ Thready Dorsalis Pedis Pulse, Right 1+ Thready Radial Pulse, Left 2+ Normal Radial Pulse, Right 2+ Normal Generalized Edema Ratin+ mild/4mm Sclera edema Bilateral Edema Ratin+ trace/2mm Hand edema Bilateral Edema Ratin+ moderate/6mm Cardiac Rhythm Sinus rhythm Monitoring Lead II, V1/MCL1 Alarms On and Functional Yes Respirations Unlabored Respiratory Pattern Regular Respiratory Pattern Detailed Vented Chest Motion Symmetrical Patient Airway Status Patent with support Breath Sounds Auscultated Anterior and posterior All Lobes Breath Sounds Coarse crackles Cough Weak Ventilator Mode (A/C) Assist/Control Ventilation Ventilator Frequency, Mandatory 24 br/min Tidal Volume, Delivered 0.500 L Positive End Expiratory Pressure 8 cmH20 FiO2 50 % Vent FiO2 50 % Resuscitation Bag Available Yes Vent Alarms On and Functional Yes Oxygen Therapy Ventilator Oxygen Saturation 94 % Tracheal Position Midline Cuffed endotracheal tube 8 01/21/2024 Endotracheal Tube Activity: Assessed Endotracheal Tube Placement: Oral, left ET Tube Insertion cm [place] at Lip: 23 cm Endotracheal Tube Position Confirmation: Breath sounds Endotracheal Tube Status: Patent Endotracheal Tube Care: Oral care Abdomen Description Non-distended, Asymmetric, Semi-firm Abdomen Palpation Non-Tender Bowel Continence No bowel movement Bowel Sounds All Quadrants Hypoactive Nasogastric (NG) Nostril, left Gastrointestinal Tube Activity: Assessed Enteral Tube Insertion cm [place] at Nare: 78 cm GI Tube Method of Drainage: Medium Intermittent Suction Gastric Output Description: Bile Gastrointestinal Tube Care: Oral care Gastrointestinal Tube Site Condition: No complications Urinary Elimination Devices Indwelling catheter Urethral Indwelling/Continuous 16 Fr 01/21/2024 Urinary Catheter Activity: Assessed Urinary Catheter Site Condition: No complications Facial Movement Makes facial grimaces All Extremity Description [place], Normal for ethnicity Temperature All Extremities Warm Mucous Membrane Color [place] Mucous Membrane Description Moist Skin Color General Usual for ethnicity Abdomen Anterior Skin Abnormality Type: Surgical incision Incision, Wound Dressing/Activity: Assessed Wound Status: No complications Abdomen Left Lateral Skin Abnormality Type: Tear Incision, Wound Dressing/Activity: Assessed Wound Status: No complications Luke-Barillas # 1 Abdomen Right Surgical Drain, Tube Activity: Assessed Surgical Drain Site Condition: No complications [place] # 2 Abdomen Right Surgical Drain, Tube Activity: Assessed Surgical Drain Site Condition: No complications [place] # 3 Abdomen Right Surgical Drain, Tube Activity: Assessed Surgical Drain Site Condition: No complications [place] # 4 Abdomen Left Surgical Drain, Tube Activity: Assessed Surgical Drain Site Condition: No complications [place] Left Surgical Drain, Tube Activity: Assessed Surgical Drain Site Condition: No complications Continuous IV Infusions TPN@ 40 ML/HR AND D5LR@ 35 ML/HR Triple Lumen Internal jugular vein Left 01/22/2024 Central IV Activity: Assessed Central IV Number of Lumens: Triple Central IV Site Condition: No complications Central IV Equipment: IV Pump Antecubital Right 01/21/2024 20 gauge Peripheral IV Activity: Assessed Peripheral IV Site Condition: No complications Peripheral IV Equipment: PRN Adaptor Neurological Language Unable to speak, Intubated or other physical barrier Gait Unable to assess Extremity Movement Equal Characteristics of Communication Unable to speak, due to vent, Unable to assess Characteristics of Speech Unable to assess Facial Symmetry Symmetric Level of Consciousness Unresponsive GALILEA Yes Strength All Extremities Absent CN V Facial Sensation Corneal reflex present CN VII Facial Expression and Symmetry Facial movement symmetrical CN IX, X Swallowing, Gag Reflex Gag reflex present Affect/Behavior Calm, Impulsive Orientation Does not interact Right lateral 16 [place] Chest Tube Activity: Assess Orientation Assessment Unable to evaluate Positioning Repositioned back Activity Status ADL Complete bedrest Beds/Devices Hospital bed, turn and position system Assistive Equipment boot(s) on, facial support dressing Activity Assistance Maximum assistance Sequential Compression Device bilateral knee high applied/on NPO Status Maintained Standard Safety Safety level maintained High Risk Safety Room check performed Special Call Device Unable to use call device Demonstrates Correct Call Light Use No dexmedeTOMIDine 0.7 mcg/kg/hr mcg insulin regular 2.5 unit(s)/hr unit(s) NS Premix Diluent NS Premix Diluent mL Sodium Chloride 0.9% Sodium Chloride 0.9% mL Degrees Head of Bed Elevated 30 01/27/2024 17:45 EDT Heart Rate Monitored 70 bpm Systolic Blood Pressure Non-Invasive 118 mmHg Diastolic Blood Pressure Non-Invasive 50 mmHg <LLOW Mean Arterial Pressure (NBP) 69 mmHg 01/27/2024 17:30 EDT Heart Rate Monitored 71 bpm Systolic Blood Pressure Non-Invasive 136 mmHg Diastolic Blood Pressure Non-Invasive 53 mmHg LOW Mean Arterial Pressure (NBP) 74 mmHg 01/27/2024 17:15 EDT Heart Rate Monitored 76 bpm Systolic Blood Pressure Non-Invasive 139 mmHg Diastolic Blood Pressure Non-Invasive 55 mmHg LOW Mean Arterial Pressure (NBP) 75 mmHg 01/27/2024 17:14 EDT Mechanical VTE Prophylaxis Education Not Done: See ICU flow (Not Done) Mechanical VTE Prophylaxis Education Not Done: See ICU flow (Not Done) Sequential Compression Device Not Done: See ICU flow (Not Done) Antiembolism Stockings Form Not Done (Not Done) Sequential Compression Device Form Not Done (Not Done) 01/27/2024 17:13 EDT Mechanical VTE Prophylaxis Education Not Done: See ICU flow (Not Done) Mechanical VTE Prophylaxis Education Not Done: See ICU flow (Not Done) Sequential Compression Device Not Done: See ICU flow (Not Done) dexmedeTOMIDine 0.6 mcg/kg/hr mcg Sodium Chloride 0.9% Sodium Chloride 0.9% mL Antiembolism Stockings Form Not Done (Not Done) Sequential Compression Device Form Not Done (Not Done) 01/27/2024 17:12 EDT Sedation Level +1 Restless Sedation Level Interventions IV Sedation Increased CAM Mental Status Change & Fluctuation Not Done: See ICU flow (Not Done) CAM Inattention Not Done: See ICU flow (Not Done) CAM Disorganized Thinking Not Done: See ICU flow (Not Done) CAM Altered Level of Consciousness Not Done: See ICU flow (Not Done) Confusion Assessment Method Score Not Done: See ICU flow (Not Done) Mechanical VTE Prophylaxis Education Not Done: See ICU flow (Not Done) Mechanical VTE Prophylaxis Education Not Done: See ICU flow (Not Done) Mechanical VTE Prophylaxis Education Not Done: See ICU flow (Not Done) Mechanical VTE Prophylaxis Education Not Done: See ICU flow (Not Done) Sequential Compression Device Not Done: See ICU flow (Not Done) Sequential Compression Device Not Done: See ICU flow (Not Done) Antiembolism Stockings Form Not Done (Not Done) Antiembolism Stockings Form Not Done (Not Done) Sequential Compression Device Form Not Done (Not Done) Sequential Compression Device Form Not Done (Not Done) 01/27/2024 17:00 EDT Heart Rate Monitored 73 bpm Systolic Blood Pressure Non-Invasive 137 mmHg Diastolic Blood Pressure Non-Invasive 55 mmHg LOW Mean Arterial Pressure (NBP) 74 mmHg 01/27/2024 16:50 EDT Soft limb holders (Cloth) Wrist, bilateral Restraint Technique: Non Violent Restraint Restraint Activity Type: Continue restraint, same episode Behavior Requiring Non Violent Restraint Attempts to remove medical management devices Type of Medical Devices: Monitoring equipment, Tubes/drains, IV/arterial access, Airway management equipment Rationale for Restraint: Attempting to remove devices, despite current restraints Range of Motion: Repositioned Restraint Skin Assessment: Skin intact, Pulses intact Restraint Nutrition/Hydration: IV fluid Restraint Hygiene/Elimination: Urinary catheter Other Standard Safety: Call device within reach, ID band check, Allergy Band on, Night light, Non-Slip footwear, Caregiver at bedside Bed Standard Safety: Bed alert on, Bed in low position, Upper/Half-length side rails up, Wheels locked, HOB elevated Restraint DC Readiness Attempts: Postitioning/Turning Restraint DC Intervention Status: Intervention attempted, not successful 01/27/2024 16:45 EDT Heart Rate Monitored 70 bpm Systolic Blood Pressure Non-Invasive 112 mmHg Diastolic Blood Pressure Non-Invasive 48 mmHg <LLOW Mean Arterial Pressure (NBP) 64 mmHg 01/27/2024 16:30 EDT Heart Rate Monitored 69 bpm Systolic Blood Pressure Non-Invasive 136 mmHg Diastolic Blood Pressure Non-Invasive 56 mmHg LOW Mean Arterial Pressure (NBP) 77 mmHg Sedation Level +1 Restless Sedation Level Interventions IV Sedation Increased dexmedeTOMIDine 0.5 mcg/kg/hr mcg Sodium Chloride 0.9% Sodium Chloride 0.9% mL 01/27/2024 16:29 EDT chlorhexidine topical 15 mL mL dexmedeTOMIDine Begin Bag 4 mL mcg insulin regular Begin Bag 1 mL unit(s) ocular lubricant 1 mendy mendy ocular lubricant 1 drop(s) drop(s) pantoprazole 40 mg mg NS Premix Diluent Begin Bag 100 mL mL Sodium Chloride 0.9% Begin Bag 96 mL mL 01/27/2024 16:17 EDT Reason for PRN medication Not Done: See ICU flow (Not Done) CAM Mental Status Change & Fluctuation Not Done: See ICU flow (Not Done) CAM Mental Status Change & Fluctuation Not Done: See ICU flow (Not Done) CAM Inattention Not Done: See ICU flow (Not Done) CAM Inattention Not Done: See ICU flow (Not Done) CAM Disorganized Thinking Not Done: See ICU flow (Not Done) CAM Disorganized Thinking Not Done: See ICU flow (Not Done) CAM Altered Level of Consciousness Not Done: See ICU flow (Not Done) CAM Altered Level of Consciousness Not Done: See ICU flow (Not Done) Confusion Assessment Method Score Not Done: See ICU flow (Not Done) Confusion Assessment Method Score Not Done: See ICU flow (Not Done) Mechanical VTE Prophylaxis Education Not Done: See ICU flow (Not Done) Mechanical VTE Prophylaxis Education Not Done: See ICU flow (Not Done) Mechanical VTE Prophylaxis Education Not Done: See ICU flow (Not Done) Mechanical VTE Prophylaxis Education Not Done: See ICU flow (Not Done) Sequential Compression Device Not Done: See ICU flow (Not Done) Sequential Compression Device Not Done: See ICU flow (Not Done) Antiembolism Stockings Form Not Done (Not Done) Antiembolism Stockings Form Not Done (Not Done) PRN Medication Effectiveness Evaluation Not Done (Not Done) Sequential Compression Device Form Not Done (Not Done) Sequential Compression Device Form Not Done (Not Done) 01/27/2024 16:15 EDT Apical Heart Rate 81 bpm Heart Rate Monitored 83 bpm Systolic Blood Pressure Non-Invasive 142 mmHg HI Diastolic Blood Pressure Non-Invasive 51 mmHg LOW Mean Arterial Pressure (NBP) 76 mmHg metoprolol 5 mg mg piperacillin-tazobactam 3.375 gram(s) gram(s) 01/27/2024 16:14 EDT acetaminophen 1,000 mg mg 01/27/2024 16:10 EDT Blood Glucose, Capillary 261 mg/dL HI Blood Glucose Testing Reason Routine 01/27/2024 16:00 EDT Heart Rate Monitored 87 bpm Systolic Blood Pressure Non-Invasive 139 mmHg Diastolic Blood Pressure Non-Invasive 51 mmHg LOW Mean Arterial Pressure (NBP) 76 mmHg 01/27/2024 15:57 EDT Temperature Oral 36.7 DegC Heart Rate Monitored 85 bpm Respiratory Rate 27 br/min HI Systolic Blood Pressure Non-Invasive 134 mmHg Diastolic Blood Pressure Non-Invasive 50 mmHg <LLOW Mean Arterial Pressure (NBP) 74 mmHg Reason For Taking VItal Signs Routine Oral Care ICU Done Eye Care Done Sedation Level -1 Drowsy Sedation Level Interventions Calm Intra-abdominal Pressure 10 Primary Pain Intensity 3 Primary Pain Nonverbal Response Appears restful Pain Scale Type Behavioral pain scale Monitor Alarms On and Limits Checked Nail Bed Color [place] Capillary Refill < 2 seconds Heart Sounds ICU S1S2 Heart Rhythm Regular Dorsalis Pedis Pulse, Left 1+ Thready Dorsalis Pedis Pulse, Right 1+ Thready Posttibial Pulse, Left 1+ Thready Posttibial Pulse, Right 1+ Thready Radial Pulse, Left 2+ Normal Radial Pulse, Right 2+ Normal Generalized Edema Ratin+ mild/4mm Sclera edema Bilateral Edema Ratin+ trace/2mm Hand edema Bilateral Edema Ratin+ moderate/6mm Cardiac Rhythm Sinus rhythm Monitoring Lead II, V1/MCL1 Alarms On and Functional Yes Heart Rate Alarm Set At - Low 50 Heart Rate Alarm Set At - High 120 NSBP Alarm Low 90 NSBP Alarm High 160 HI Respirations Unlabored Respiratory Pattern Regular Respiratory Pattern Detailed Vented Chest Motion Symmetrical Patient Airway Status Patent with support Breath Sounds Auscultated Anterior and posterior All Lobes Breath Sounds Coarse crackles Suction Method Endotracheal Cough Weak Suction Device Inline suctioning Sputum Amount Moderate Sputum Color Cream Sputum Consistency Thin Ventilator Mode (A/C) Assist/Control Ventilation Ventilator Frequency, Mandatory 24 br/min Tidal Volume, Delivered 0.500 L Positive End Expiratory Pressure 8 cmH20 FiO2 50 % Vent FiO2 50 % Resuscitation Bag Available Yes Vent Alarms On and Functional Yes Oxygen Therapy Ventilator Oxygen Saturation 93 % Tracheal Position Midline Cuffed endotracheal tube 8 01/21/2024 Endotracheal Tube Activity: Assessed Endotracheal Tube Placement: Oral, left ET Tube Insertion cm [place] at Lip: 23 cm Endotracheal Tube Position Confirmation: Breath sounds Endotracheal Tube Status: Patent, Secure, manufactured tube alfredo Endotracheal Tube Care: Oral care Abdomen Description Non-distended, Asymmetric, Semi-firm, Rounded Abdomen Palpation Non-Tender Passing Flatus No Bowel Continence No bowel movement Bowel Sounds All Quadrants Hypoactive Nasogastric (NG) Nostril, left Gastrointestinal Tube Activity: Assessed Enteral Tube Insertion cm [place] at Nare: 78 cm GI Tube Method of Drainage: Medium Intermittent Suction Gastric Output Description: Bile Gastrointestinal Tube Care: Oral care Gastrointestinal Tube Site Condition: No complications Urinary Elimination Urinary catheter draining Urine Color Yellow Urine Description Medium amount Perineum Intact Urinary Elimination Devices Indwelling catheter Urethral Indwelling/Continuous 16 Fr 01/21/2024 Urinary Catheter Indication: ICU Patient-Hemodynamic instability Urinary Catheter Activity: Assessed Urinary Catheter Secured: Securement device on Urinary Catheter Drainage System: Dependent drainage bag Urinary Catheter Site Condition: No complications Facial Movement Makes facial grimaces Skin Symptoms Bruising All Extremity Description [place], Normal for ethnicity Skin Temperature Warm Temperature All Extremities Warm Skin Description Normal for ethnicity Skin Integrity Not intact Skin Turgor Non-Elastic Mucous Membrane Color [place] Mucous Membrane Description Moist Skin Color General Usual for ethnicity Skin Moisture General Dry Sensory Perception Alex Slightly limited Moisture Alex Occasionally moist Activity Alex Bedfast Mobility Alex Slightly limited Nutrition Alex Adequate Friction and Shear Alex Potential problem Alex Score 15 Hospital Acquired Pressure Injury Risk Low risk (score 15-18) Abdomen Anterior Skin Abnormality Type: Surgical incision Incision, Wound Dressing/Activity: Assessed Incision, Wound Dressing Assessment: Clean, Dry, Intact Incision, Wound Dressing: Vacuum assisted closure Negative Pressure Wound SettinmmHg Wound Exudate Amount: Small Wound Exudate Type: Sanguineous Wound Exudate Odor: None Incision, Wound Surrounding Tissue: Normal Wound Status: No complications Abdomen Left Lateral Skin Abnormality Type: Tear Incision, Wound Dressing/Activity: Assessed Incision, Wound Dressing Assessment: Clean, Dry, Intact Incision, Wound Dressing: Band-Aid Wound Exudate Amount: None Incision, Wound Surrounding Tissue: Normal Wound Status: No complications Luke-Barillas # 1 Abdomen Right Surgical Drain, Tube Activity: Assessed Surgical Drain, Tube Care: [place] collapsed Surgical Drain Site Condition: No complications Surgical Drain, Tube Dressing Condition: Clean, Dry, Intact Surgical Drain, Tube Dressing/Activity: Gauze Surgical Drain, Tube Drainage Method: Compression Surgical Drain, Tube - Tube Descr: Serous Luke-Barillas # 2 Abdomen Right Surgical Drain, Tube Activity: Assessed Surgical Drain, Tube Care: [place] collapsed Surgical Drain Site Condition: No complications Surgical Drain, Tube Dressing Condition: Clean, Dry, Intact Surgical Drain, Tube Dressing/Activity: Gauze Surgical Drain, Tube Drainage Method: Compression Surgical Drain, Tube - Tube Descr: Serous Luke-Barillas # 3 Abdomen Right Surgical Drain, Tube Activity: Assessed Surgical Drain, Tube Care: [place] collapsed Surgical Drain Site Condition: No complications Surgical Drain, Tube Dressing Condition: Clean, Dry, Intact Surgical Drain, Tube Dressing/Activity: Gauze Surgical Drain, Tube Drainage Method: Compression Surgical Drain, Tube - Tube Descr: Serous Luke-Barillas # 4 Abdomen Left Surgical Drain, Tube Activity: Assessed Surgical Drain, Tube Care: [place] collapsed Surgical Drain Site Condition: No complications Surgical Drain, Tube Dressing Condition: Clean, Dry, Intact Surgical Drain, Tube Dressing/Activity: Gauze Surgical Drain, Tube Drainage Method: Compression Surgical Drain, Tube - Tube Descr: Serous [place] Left Surgical Drain, Tube Activity: Assessed Surgical Drain, Tube Care: [place] collapsed Surgical Drain Site Condition: No complications Surgical Drain, Tube Dressing Condition: Clean, Dry, Intact Surgical Drain, Tube Dressing/Activity: Gauze Surgical Drain, Tube Drainage Method: Compression Surgical Drain, Tube - Tube Descr: Serous Continuous IV Infusions TPN@ 40 ML/HR AND D5LR@ 35 ML/HR Triple Lumen Internal jugular vein Left 01/22/2024 Central IV Activity: Assessed Central IV Number of Lumens: Triple Central IV Patency Proximal Port: Continuous infusion Central IV Patency Distal Port: Continuous infusion Central IV Patency Medial Port: Continuous infusion Central IV Dressing Condition: Clean, Dry, Intact Central IV Dressing / Activity: CHG gel pad all-in-one dressing Central IV Line Care: Alcohol port cap(s) in place Central IV Site Condition: No complications Central IV Equipment: IV Pump Central IV CVP Line Status: Accurate, optimally damped Central IV CVP Line Care: Catheter position corrected/withdrawn, Correct catheter position confirmed, Square Wave Test, Leveled, zeroed, calibrated, Pressure Monitoring System Changed Antecubital Right 01/21/2024 20 gauge Peripheral IV Activity: Assessed Peripheral IV Dressing Condition: Clean, Dry, Intact Peripheral IV Dressing Activity: Transparent dressing Peripheral IV Line Status/Patency: Flushes easily Peripheral IV Line Care: Secured with tape Peripheral IV Site Condition: No complications Peripheral IV Equipment: PRN Adaptor Neurological Language Unable to speak, Intubated or other physical barrier Gait Unable to assess Extremity Movement Equal Characteristics of Communication Unable to speak, due to vent, Unable to assess Characteristics of Speech Unable to assess Facial Symmetry Symmetric Level of Consciousness Unresponsive Eye Opening Response [place] None Best Motor Response [place] Flaccid Best Verbal Response Nathan None Nathan Coma Score 3 GALILEA Yes Left Pupil Description Pinpoint Right Pupil Description Pinpoint Left Pupil Reaction Sluggish Right Pupil Reaction Sluggish Pupil Size, Left 2 mm Pupil Size, Right 2 mm Strength All Extremities Absent CN V Facial Sensation Corneal reflex present CN VII Facial Expression and Symmetry Facial movement symmetrical CN IX, X Swallowing, Gag Reflex Gag reflex absent Parry Screen After surgery History of Fall in Last 3 Months Parry No Presence of Secondary Diagnosis Parry No Use of Ambulatory Aid Parry None, bedrest, wheelchair, nurse IV/PRN Adapter Fall Risk Parry Yes Gait Weak or Impaired Fall Risk Parry Normal, bedrest, immobile Mental Status Fall Risk Parry Forgets limitations Parry Fall Risk Score 35 Violence Risk Confused No Violence Risk Irritable No Violence Risk Boisterous No Violence Risk Verbal Threats No Violence Risk Physical Threats No Violence Risk Attacking Objects No Violence Risk Predictor Score 0 Violence Risk Intervention Decrease stimulation Violence Risk Current Interventions Restraint Non Violent Affect/Behavior Calm, Impulsive Orientation Does not interact Right lateral 16 [place]ron[place] Chest Tube Activity: Assess Chest Tube Connectivity: Water-Seal 20 cm suction Chest Tube Water Seal Chamber Desc: Absence of Bubbling Chest Tube Interventions: Clamps at bedside Chest Tube Drainage Description: Straw colored Chest Tube Dressing Condition: Clean, Dry, Intact Chest Tube Dressing: Occlusive dressing BMAT Existing Patient Condition/Safety Strict bedrest Orientation Assessment Unable to evaluate Assistive Device Ceiling lift Positioning Repositioned left side Mobility Assistance Level Maximum assistance Activity Status ADL Complete bedrest, Resting Beds/Devices Hospital bed, turn and position system Assistive Equipment boot(s) on, elevated on pillows Activity Assistance Moderate assistance Sequential Compression Device bilateral knee high applied/on NPO Status Maintained Oral Care Oral care protocol Skin Care Preventative Intervention(s) heel(s)s elevated, turn and position system Preventative Dressing Intervention Intact Standard Safety ID band on, Allergy Band on, Call device within reach, Bed in low position, Wheels locked, Upper/Half-Length side-rails up, Phone within reach, personal items within reach, Assistive devices within reach, Toileting device within reach High Risk Safety Identified as high risk, Fall ID band on, Room located near nursing station, Bed alert on, Door open, Bathroom light on, Non-Slip footwear, Reoriented Special Call Device Unable to use call device Demonstrates Correct Call Light Use No dexmedeTOMIDine 0.4 mcg/kg/hr mcg Sodium Chloride 0.9% Sodium Chloride 0.9% mL Degrees Head of Bed Elevated 30 Appetite Unable to obtain Eating Difficulties Unable to obtain Stool Count 0 EA 01/27/2024 15:45 EDT Heart Rate Monitored 85 bpm Systolic Blood Pressure Non-Invasive 138 mmHg Diastolic Blood Pressure Non-Invasive 58 mmHg LOW Mean Arterial Pressure (NBP) 80 mmHg 01/27/2024 15:40 EDT Heart Rate Monitored 81 bpm Systolic Blood Pressure Non-Invasive 145 mmHg HI Diastolic Blood Pressure Non-Invasive 56 mmHg LOW Mean Arterial Pressure (NBP) 80 mmHg Reason For Taking VItal Signs In Error (In Error) Oxygen Saturation 94 % 01/27/2024 15:36 EDT Heart Rate Monitored 81 bpm Systolic Blood Pressure Non-Invasive 142 mmHg HI Diastolic Blood Pressure Non-Invasive 55 mmHg LOW Mean Arterial Pressure (NBP) 79 mmHg Oxygen Saturation 94 % norepinephrine mcg/min mg NS Premix Diluent NS Premix Diluent mL 01/27/2024 15:15 EDT Heart Rate Monitored 80 bpm Systolic Blood Pressure Non-Invasive 146 mmHg HI Diastolic Blood Pressure Non-Invasive 59 mmHg LOW Mean Arterial Pressure (NBP) 82 mmHg Ventilator Mode (A/C) Assist/Control Ventilation Breath Type VC (Volume Control) Ventilator Frequency, Mandatory 24 br/min Tidal Volume, Delivered 0.5 L Positive End Expiratory Pressure 8 cmH20 Flow Trigger (range 0.3 - 15 L/min.) 2 L/min Inspiratory Time (TI) 0.8 second(s) Tube Compensation Off Auto Flow On Ventilator Model Drager V500 Ventilator ID 6 Vent FiO2 50 % Respiratory Rate Total 26 br/min HI Minute Volume 12 L/min Respiratory Rate, Spontaneous 2 br/min Inspiratory to Expiratory (I:E) Ratio 1:2 Tidal Volume, Exhaled 0.474 L Peak Inspiratory Pressure 18 cmH20 Mean Airway Pressure 12 Resuscitation Bag Available Yes Mask, Obturator, Syringe at bedside Yes Vent Alarms On and Functional Yes Vent Alarm High Pressure 50 cmH20 High Tidal Volume 1 Vent Alarm High Rate 40 br/min Vent Alarm Low Minute Volume 2 L/min Vent Alarm High Minute Volume 24 L/min Oxygen Saturation 93 % HME (Heat & Moisture Exchanger) On norepinephrine 3 mcg/min mg NS Premix Diluent NS Premix Diluent mL 01/27/2024 15:00 EDT Right lateral 16 [place] Chest Tube Output: 0 mL 01/27/2024 14:59 EDT dexmedeTOMIDine 387.226 mcg mcg insulin regular 15.675 unit(s) unit(s) norepinephrine 3.31511 mg mg propofol 383.08 mg mg Dextrose 5% in Lact Ringers Injection 280 mL mL Premix Diluent 38.308 mL mL NS Premix Diluent 109.2578 mL mL NS Premix Diluent 15.675 mL mL Sodium Chloride 0.9% 92.39886 mL mL TPN 320 mL mL amino acids in TPN 1.535795 % % calcium gluconate in TPN 1.5 mEq/L mEq/L dextrose in TPN 5.636643 % % lipids in TPN 1.558416 % % magnesium sulfate in TPN 1.284950 mEq/L mEq/L multivitamin in TPN 3.995689 mL/day mL/day potassium chloride in TPN 6.945566 mEq/L mEq/L potassium phosphate in TPN 5 mEq/L mEq/L sodium chloride in TPN 11.082170 mEq/L mEq/L trace elements in TPN 0.410004 mL/day mL/day 01/27/2024 14:58 EDT Heart Rate Monitored 76 bpm Systolic Blood Pressure Non-Invasive 116 mmHg Diastolic Blood Pressure Non-Invasive 54 mmHg LOW Mean Arterial Pressure (NBP) 71 mmHg Oxygen Saturation 93 % norepinephrine 7 mcg/min mg propofol mcg/kg/min mg Premix Diluent IV Premix Diluent mL NS Premix Diluent NS Premix Diluent mL 01/27/2024 14:55 EDT Notify date/time 01/27/2024 14:55 Provider Notified SUZANNA JAUREGUI APRN-ARNIE Notification Method Face to face conversation Information Communicated Nurse communication Details Communicated I was told to keep propofol on for at least a half an hour after the Rocc but I have been afraid to shut if off because pt is still not moving at all. He has precedex on Notification Outcome Orders received Person Reporting Result(s) Nika Graham RN Details of Results Received okay to shut off propofol Results Read Back Yes 01/27/2024 14:50 EDT Soft limb holders (Cloth) Wrist, bilateral Restraint Technique: Non Violent Restraint Restraint Activity Type: Continue restraint, same episode Behavior Requiring Non Violent Restraint Attempts to remove medical management devices Type of Medical Devices: Monitoring equipment, Tubes/drains, IV/arterial access, Airway management equipment Rationale for Restraint: Attempting to remove devices, despite current restraints Range of Motion: Repositioned Restraint Skin Assessment: Skin intact, Pulses intact Restraint Nutrition/Hydration: IV fluid Restraint Hygiene/Elimination: Urinary catheter Other Standard Safety: ID band check Bed Standard Safety: Bed in low position, Upper/Half-length side rails up, Wheels locked, HOB elevated Restraint DC Readiness Attempts: Enhanced observation, Environmental changes, Pain management, Postitioning/Turning, Reality orientation Restraint DC Intervention Status: Intervention attempted, not successful 01/27/2024 14:46 EDT Heart Rate Monitored 74 bpm Systolic Blood Pressure Non-Invasive 127 mmHg Diastolic Blood Pressure Non-Invasive 54 mmHg LOW Mean Arterial Pressure (NBP) 73 mmHg Oxygen Saturation 97 % norepinephrine 10 mcg/min mg NS Premix Diluent NS Premix Diluent mL 01/27/2024 14:38 EDT Heart Rate Monitored 72 bpm Respiratory Rate 24 br/min HI Systolic Blood Pressure Non-Invasive 123 mmHg Diastolic Blood Pressure Non-Invasive 55 mmHg LOW Mean Arterial Pressure (NBP) 74 mmHg Reason For Taking VItal Signs In Error (In Error) Monitor Alarms On and Limits Checked Heart Sounds ICU S1S2 Heart Rhythm Regular Oxygen Saturation 92 % LOW norepinephrine 14 mcg/min mg NS Premix Diluent NS Premix Diluent mL 01/27/2024 14:36 EDT Glucose Level 257 mg/dL HI Sodium Level 151 mEq/L HI Potassium Level 4.0 mEq/L Chloride 114 mEq/L HI CO2 26 mEq/L Electrolyte Balance 11.0 mEq/L BUN 77.0 mg/dL HI Creatinine Lvl (s) 2.16 mg/dL HI BUN/Creatinine Ratio 35.6 ratio HI Calcium Lvl 8.5 mg/dL LOW Total Protein 4.7 G/dL LOW Albumin Level 1.5 G/dL LOW Globulin 3.2 G/dL A/G Ratio 0.5 ratio LOW Bili Total 2.00 mg/dL HI Bili Direct 1.4 mg/dL HI Bili Indirect 0.6 mg/dL Alk Phos 77 U/L AST/SGOT 66 U/L HI ALT/SGPT 50 U/L GFR Non- 30 ml/min/1.73sqm NA GFR 37 ml/min/1.73sqm NA Culture Respiratory with Gram Stain See Result (In Progress) Creatinine Clearance Calc 33.01 mL/min chlorhexidine topical 15 mL mL heparin 5,000 unit(s) unit(s) ocular lubricant 1 mendy mendy 01/27/2024 14:15 EDT Notify date/time 01/27/2024 14:15 Provider Notified SONIA SCHULTE APRN-UPHOLSTERY INSTRUCTOR Notification Method Face to face conversation Information Communicated Nurse communication Details Communicated Pt's interabdominal pressure 15 Notification Outcome Orders received Person Reporting Result(s) Nika Graham RN Details of Results Received measure Q 4 hours overnight, Dr. Bowman just wants the trend for OR tomorrow Results Read Back Yes 01/27/2024 14:10 EDT Sedation Level -4 Deep Sedation Sedation Level Interventions IV Sedation Decreased Intra-abdominal Pressure 15 propofol 15 mcg/kg/min mg Premix Diluent IV Premix Diluent mL 01/27/2024 14:00 EDT Urethral Indwelling/Continuous 16 Fr 01/21/2024 Urinary Catheter Output: 520 mL [place] # 1 Abdomen Right Surgical Drain, Tube Output: 0 mL [place] # 2 Abdomen Right Surgical Drain, Tube Output: 20 mL [place] # 3 Abdomen Right Surgical Drain, Tube Output: 5 mL [place] # 4 Abdomen Left Surgical Drain, Tube Output: 5 mL [place] Left Surgical Drain, Tube Output: 2.5 mL Right lateral 16 [place] Chest Tube Output: 130 mL 01/27/2024 13:38 EDT [place] Body Weight 75.5 kg Physical Appearance Other: Intubated, sedated, hemodynamic instability Home Diet Unable to obtain Weight Chg, Unintentional Nutrition Hx No Weight history in [facility] records Appetite Unable to obtain Parenteral Nutrition Route Central venous catheter TPN/PPN Amino Acids 6 TPN/PPN Dextrose 15 TPN/PPN Lipids 3 Current Rate TPN/PPN 80 mL/hr Current TPN/PPN kcal 1,920 Kcal Current TPN/PPN Protein 115 Gram(s) Goal Rate TPN/PPN 80 mL/hr Parenteral Nutrition Comments Parenteral Nutrition Comments Nutrition Plan of Care Dietitian follow up/monitor, Participate in team conference Top Lift Compressor Recommendations Nutrition support, Other: Current TPN meeting pt's estimated needs well. Nutrition Follow-Up Needed Yes Days until Top Lift Compressor Follow Up Three days Malnutrition context Acute illness or injury Energy Intake % Not available Interpretation of weight losss % No significant weight loss Body Fat Status No significant subcutaneous fat loss Muscle Mass Status No significant muscle mass loss Malnutrition Status Insufficient data Adult Nutrition Initial Assessment/Plan Adult Nutrition Assessment/Plan 01/27/2024 13:37 EDT Vent FiO2 50 % 01/27/2024 13:33 EDT Final Surgical Pathology Report Final Surgical Pathology Report 01/27/2024 13:28 EDT Heart Rate Monitored 71 bpm Systolic Blood Pressure Non-Invasive 95 mmHg Diastolic Blood Pressure Non-Invasive 45 mmHg <LLOW Mean Arterial Pressure (NBP) 59 mmHg Sedation Level -4 Deep Sedation Sedation Level Interventions IV Sedation Decreased Oxygen Saturation 95 % norepinephrine 17 mcg/min mg propofol 25 mcg/kg/min mg Premix Diluent IV Premix Diluent mL NS Premix Diluent NS Premix Diluent mL 01/27/2024 13:22 EDT Heart Rate Monitored 77 bpm Respiratory Rate 24 br/min HI Systolic Blood Pressure Non-Invasive 101 mmHg Diastolic Blood Pressure Non-Invasive 47 mmHg <LLOW Mean Arterial Pressure (NBP) 63 mmHg Reason For Taking VItal Signs Routine Oral Care ICU Done Eye Care Done Sedation Level -4 Deep Sedation Sedation Level Interventions IV Sedation Decreased Primary Pain Location Generalized Primary Pain Intensity 3 Primary Pain Non-Pharma Intervention Rest, Repositioning Primary Pain Nonverbal Response Appears restful Pain Scale Type Behavioral pain scale Monitor Alarms On and Limits Checked Heart Sounds ICU S1S2 Heart Rhythm Regular Radial Pulse, Left 2+ Normal Radial Pulse, Right 2+ Normal Generalized Edema Ratin+ mild/4mm Sclera edema Bilateral Edema Ratin+ trace/2mm Hand edema Bilateral Edema Ratin+ moderate/6mm Cardiac Rhythm Sinus rhythm Monitoring Lead II, V1/MCL1 Alarms On and Functional Yes Respirations Unlabored Respiratory Pattern Regular Respiratory Pattern Detailed Vented Chest Motion Symmetrical Breath Sounds Auscultated Anterior only All Lobes Breath Sounds Coarse crackles Suction Method Endotracheal Cough Weak Suction Device Inline suctioning Sputum Amount Moderate Sputum Color Cream Sputum Consistency Thick Ventilator Mode (A/C) Assist/Control Ventilation Ventilator Frequency, Mandatory 24 br/min Tidal Volume, Delivered 0.500 L Positive End Expiratory Pressure 8 cmH20 Vent FiO2 60 % Tidal Volume, Exhaled 0.490 L Resuscitation Bag Available Yes Vent Alarms On and Functional Yes Oxygen Saturation 93 % Tracheal Position Midline Cuffed endotracheal tube 8 01/21/2024 Endotracheal Tube Activity: Assessed Endotracheal Tube Placement: Oral, mid ET Tube Insertion cm [place] at Lip: 23 cm Endotracheal Tube Position Confirmation: Breath sounds Endotracheal Tube Status: Patent, Secure, manufactured tube alfredo Endotracheal Tube Care: Oral care Bowel Continence No bowel movement Bowel Sounds All Quadrants Hypoactive Nasogastric (NG) Nostril, left Gastrointestinal Tube Activity: Assessed Enteral Tube Insertion cm [place] at Nare: 78 cm GI Tube Method of Drainage: Medium Intermittent Suction Gastric Output Description: Bile Gastrointestinal Tube Care: Oral care, Secured Gastrointestinal Tube Site Condition: No complications Urinary Elimination Urinary catheter draining Urinary Elimination Devices Indwelling catheter Urethral Indwelling/Continuous 16 Fr 01/21/2024 Urinary Catheter Activity: Assessed Urinary Catheter Site Condition: No complications Facial Movement Symmetric resting/crying Abdomen Anterior Wound Status: Unchanged Abdomen Left Lateral Wound Status: Unchanged Luke-Barillas # 1 Abdomen Right Surgical Drain, Tube Activity: Assessed Surgical Drain, Tube Care: [place] collapsed Surgical Drain Site Condition: No complications Luke-Barillas # 2 Abdomen Right Surgical Drain, Tube Activity: Assessed Surgical Drain, Tube Care: [place] collapsed Surgical Drain Site Condition: No complications Luke-Barillas # 3 Abdomen Right Surgical Drain, Tube Activity: Assessed Surgical Drain, Tube Care: [place] collapsed Surgical Drain Site Condition: No complications Luke-Barillas # 4 Abdomen Left Surgical Drain, Tube Activity: Assessed Surgical Drain, Tube Care: [place] collapsed Surgical Drain Site Condition: No complications [place] Left Surgical Drain, Tube Activity: Assessed Surgical Drain, Tube Care: [place] collapsed Surgical Drain Site Condition: No complications Continuous IV Infusions TPN @40 and D5LR@35 Triple Lumen Internal jugular vein Left 01/22/2024 Central IV Activity: Assessed Central IV Site Condition: No complications Central IV Equipment: IV Pump Antecubital Right 01/21/2024 20 gauge Peripheral IV Activity: Assessed Peripheral IV Site Condition: No complications Peripheral IV Equipment: PRN Adaptor Neurological Language Intubated or other physical barrier Neurological Symptoms Sedated Gait Unable to assess Extremity Movement Equal Characteristics of Communication Unable to speak, due to vent Characteristics of Speech Unable to assess Facial Symmetry Symmetric Level of Consciousness Unresponsive Eye Opening Response Nathan None Best Motor Response [place] Flaccid Best Verbal Response [place] None [place] Coma Score 3 Response to Stimuli Affected by Paralytics, Sedation GALILEA Yes Left Pupil Description Pinpoint Right Pupil Description Pinpoint Left Pupil Reaction Sluggish Right Pupil Reaction Sluggish Pupil Size, Left 2 mm Pupil Size, Right 2 mm Strength All Extremities Absent CN V Facial Sensation Corneal reflex present CN VII Facial Expression and Symmetry Unable to assess CN IX, X Swallowing, Gag Reflex Gag reflex present Affect/Behavior Calm, Impulsive Orientation Does not interact Right lateral 16 [place] Chest Tube Activity: Assess Chest Tube Connectivity: Water-Seal 20 cm suction Chest Tube Water Seal Chamber Desc: Absence of Bubbling Chest Tube Interventions: Clamps at bedside Chest Tube Drainage Description: Straw colored Chest Tube Dressing Condition: Clean, Dry, Intact Chest Tube Dressing: Occlusive dressing Positioning Repositioned right side Activity Status ADL Resting Beds/Devices low air loss bed Assistive Equipment boot(s) on Activity Assistance Maximum assistance Sequential Compression Device bilateral knee high applied/on Oral Care Oral care protocol Standard Safety Safety level maintained High Risk Safety Room check performed Special Call Device Unable to use call device Demonstrates Correct Call Light Use No dexmedeTOMIDine 0.4 mcg/kg/hr mcg norepinephrine 15 mcg/min mg propofol 30 mcg/kg/min mg Premix Diluent IV Premix Diluent mL NS Premix Diluent NS Premix Diluent mL Sodium Chloride 0.9% Sodium Chloride 0.9% mL Degrees Head of Bed Elevated 30 01/27/2024 13:20 EDT XR Chest 1 View XR CHEST 1 VIEW 01/27/2024 13:16 EDT propofol 30 mcg/kg/min mg Premix Diluent IV Premix Diluent mL 01/27/2024 13:15 EDT Heart Rate Monitored 70 bpm Systolic Blood Pressure Non-Invasive 94 mmHg Diastolic Blood Pressure Non-Invasive 50 mmHg <LLOW Mean Arterial Pressure (NBP) 63 mmHg Oxygen Saturation 94 % 01/27/2024 13:10 EDT Heart Rate Monitored 76 bpm Systolic Blood Pressure Non-Invasive 84 mmHg LOW Diastolic Blood Pressure Non-Invasive 44 mmHg <LLOW Mean Arterial Pressure (NBP) 57 mmHg Oxygen Saturation 95 % Soft limb holders (Cloth) Wrist, bilateral Restraint Technique: Non Violent Restraint Restraint Activity Type: Continue restraint, same episode Behavior Requiring Non Violent Restraint Attempts to remove medical management devices Type of Medical Devices: Monitoring equipment, Tubes/drains, IV/arterial access, Airway management equipment Rationale for Restraint: Attempting to remove devices, despite current restraints Range of Motion: Repositioned Restraint Skin Assessment: Skin intact, Pulses intact Restraint Nutrition/Hydration: IV fluid Restraint Hygiene/Elimination: Urinary catheter Other Standard Safety: ID band check Bed Standard Safety: Bed in low position, Upper/Half-length side rails up, Wheels locked, HOB elevated Restraint DC Readiness Attempts: Enhanced observation, Environmental changes, Pain management, Postitioning/Turning, Reality orientation Restraint DC Intervention Status: Intervention attempted, not successful norepinephrine 15 mcg/min mg NS Premix Diluent NS Premix Diluent mL 01/27/2024 13:03 EDT Procedure Note Procedure Note 01/27/2024 12:55 EDT rocuronium 50 mg mg 01/27/2024 12:54 EDT propofol 40 mcg/kg/min mg Premix Diluent IV Premix Diluent mL 01/27/2024 12:52 EDT Heart Rate Monitored 67 bpm Systolic Blood Pressure Non-Invasive 115 mmHg Diastolic Blood Pressure Non-Invasive 76 mmHg Mean Arterial Pressure (NBP) 87 mmHg Vent FiO2 60 % Oxygen Saturation 97 % 01/27/2024 12:50 EDT propofol 25 mg mg propofol Begin Bag 100 mL mg Premix Diluent Begin Bag 100 mL mL 01/27/2024 12:30 EDT Heart Rate Monitored 64 bpm Systolic Blood Pressure Non-Invasive 113 mmHg Diastolic Blood Pressure Non-Invasive 52 mmHg LOW Mean Arterial Pressure (NBP) 70 mmHg Oxygen Saturation 99 % 01/27/2024 12:18 EDT Final Surgical Pathology Report Final Surgical Pathology Report 01/27/2024 12:00 EDT Heart Rate Monitored 62 bpm Systolic Blood Pressure Non-Invasive 110 mmHg Diastolic Blood Pressure Non-Invasive 55 mmHg LOW Mean Arterial Pressure (NBP) 71 mmHg Oxygen Saturation 99 % 01/27/2024 11:45 EDT Heart Rate Monitored 60 bpm Systolic Blood Pressure Non-Invasive 114 mmHg Diastolic Blood Pressure Non-Invasive 55 mmHg LOW Mean Arterial Pressure (NBP) 72 mmHg Oxygen Saturation 99 % 01/27/2024 11:36 EDT Pain Scale Assessment Behavioral pain scale Primary Pain Location Generalized Primary Pain Intensity 3 Reason for PRN medication Pain management PRN medication effectiveness Yes PRN Medication Effectiveness Evaluation PRN Medication Effectiveness Evaluation 01/27/2024 11:30 EDT Heart Rate Monitored 58 bpm LOW Systolic Blood Pressure Non-Invasive 114 mmHg Diastolic Blood Pressure Non-Invasive 57 mmHg LOW Mean Arterial Pressure (NBP) 74 mmHg Oxygen Saturation 99 % 01/27/2024 11:22 EDT dexmedeTOMIDine 0.4 mcg/kg/hr mcg Sodium Chloride 0.9% Sodium Chloride 0.9% mL 01/27/2024 11:21 EDT Blood Glucose, Capillary 117 mg/dL HI Blood Glucose Testing Reason Routine Temperature Oral 36.5 DegC Heart Rate Monitored 56 bpm LOW Respiratory Rate 25 br/min HI Systolic Blood Pressure Non-Invasive 112 mmHg Diastolic Blood Pressure Non-Invasive 56 mmHg LOW Mean Arterial Pressure (NBP) 73 mmHg Reason For Taking VItal Signs Routine Oral Care ICU Done Eye Care Done Sedation Level -3 Moderate Sedation Sedation Level Interventions IV Sedation Decreased Primary Pain Location Generalized Primary Pain Intensity 3 Primary Pain Non-Pharma Intervention Rest, Repositioning Primary Pain Nonverbal Response Appears restful Pain Scale Type Behavioral pain scale Monitor Alarms On and Limits Checked Monitor Alarms On and Limits Checked Cardiovascular Symptoms Edema Nail Bed Color [place] Capillary Refill < 2 seconds Heart Sounds ICU S1S2 Heart Sounds ICU S1S2 Heart Rhythm Regular Heart Rhythm Regular Dorsalis Pedis Pulse, Left 1+ [place] Dorsalis Pedis Pulse, Right 1+ [place] Posttibial Pulse, Left 1+ [place] Posttibial Pulse, Right 1+ [place] Radial Pulse, Left 2+ Normal Radial Pulse, Right 2+ Normal Generalized Edema Ratin+ mild/4mm Sclera edema Bilateral Edema Ratin+ trace/2mm Hand edema Bilateral Edema Ratin+ moderate/6mm Central Venous Pressure 12 mmHg HI Cardiac Rhythm Sinus bradycardia Monitoring Lead II, V1/MCL1 Alarms On and Functional Yes Heart Rate Alarm Set At - Low 50 Heart Rate Alarm Set At - High 150 NSBP Alarm Low 90 NSBP Alarm High 160 HI Respirations Unlabored Respiratory Pattern Regular Respiratory Pattern Detailed Vented Chest Motion Symmetrical Breath Sounds Auscultated Anterior only All Lobes Breath Sounds Coarse crackles Ventilator Mode (A/C) Assist/Control Ventilation Ventilator Frequency, Mandatory 24 br/min Tidal Volume, Delivered 0.500 L Positive End Expiratory Pressure 8 cmH20 FiO2 100 % FiO2 100 % Vent FiO2 100 % Tidal Volume, Exhaled 0.497 L Resuscitation Bag Available Yes Vent Alarms On and Functional Yes Oxygen Therapy Ventilator Oxygen Therapy Ventilator Oxygen Saturation 99 % Tracheal Position Midline Abdomen Description Distended Abdomen Palpation Semi-firm Bowel Continence No bowel movement Bowel Sounds All Quadrants Hypoactive Nasogastric (NG) Nostril, left Gastrointestinal Tube Activity: Assessed Enteral Tube Insertion cm [place] at Nare: 78 cm GI Tube Method of Drainage: Medium Intermittent Suction Gastric Output Description: Bile Gastrointestinal Tube Care: Oral care Gastrointestinal Tube Site Condition: No complications GI Tube Placement Confirmation: Aspiration Urinary Elimination Urinary catheter draining Urine Color Yellow Urine Description Clear Perineum Intact Urinary Elimination Devices Indwelling catheter Urethral Indwelling/Continuous 16 Fr 01/21/2024 Urinary Catheter Indication: ICU Patient-Hemodynamic instability Urinary Catheter Activity: Assessed Urinary Catheter Secured: Securement device on Urinary Catheter Drainage System: Dependent drainage bag Urinary Catheter Site Condition: No complications Facial Movement Symmetric resting/crying Skin Symptoms Bruising All Extremity Description Normal for ethnicity Skin Temperature Warm Temperature All Extremities Warm Skin Description Normal for ethnicity Skin Integrity Not intact Skin Turgor Non-Elastic Mucous Membrane Color [place] Mucous Membrane Description Dry Skin Color General Usual for ethnicity Skin Moisture General Dry Abdomen Anterior Skin Abnormality Type: Surgical incision Incision, Wound Dressing/Activity: Assessed Incision, Wound Dressing Assessment: Clean, Dry, Intact Incision, Wound Dressing: Vacuum assisted closure Negative Pressure Wound SettinmmHg Incision, Wound Surrounding Tissue: Erythema Wound Status: Unchanged Abdomen Left Lateral Skin Abnormality Type: Tear Wound Status: Unchanged Luke-Barillas # 1 Abdomen Right Surgical Drain, Tube Activity: Assessed Surgical Drain, Tube Care: [place] collapsed Surgical Drain Site Condition: No complications Surgical Drain, Tube Dressing Condition: Clean, Dry, Intact Surgical Drain, Tube Dressing/Activity: Gauze Surgical Drain, Tube Drainage Method: Compression Surgical Drain, Tube - Tube Descr: Serous Luke-Barillas # 2 Abdomen Right Surgical Drain, Tube Activity: Assessed Surgical Drain, Tube Care: [place] collapsed Surgical Drain Site Condition: No complications Surgical Drain, Tube Dressing Condition: Clean, Dry, Intact Surgical Drain, Tube Dressing/Activity: Gauze Surgical Drain, Tube Drainage Method: Compression Surgical Drain, Tube - Tube Descr: Serous Luke-[place] # 3 Abdomen Right Surgical Drain, Tube Activity: Assessed Surgical Drain, Tube Care: [place] collapsed Surgical Drain Site Condition: No complications Surgical Drain, Tube Dressing Condition: Clean, Dry, Intact Surgical Drain, Tube Dressing/Activity: Gauze Surgical Drain, Tube Drainage Method: Compression Surgical Drain, Tube - Tube Descr: Serous Luke-[place]illas # 4 Abdomen Left Surgical Drain, Tube Activity: Assessed Surgical Drain, Tube Care: [place] collapsed Surgical Drain Site Condition: No complications Surgical Drain, Tube Dressing Condition: Clean, Dry, Intact Surgical Drain, Tube Dressing/Activity: Gauze Surgical Drain, Tube Drainage Method: Compression Surgical Drain, Tube - Tube Descr: Serous [place] Left Surgical Drain, Tube Activity: Assessed Surgical Drain, Tube Care: [place] collapsed Surgical Drain Site Condition: No complications Surgical Drain, Tube Dressing Condition: Clean, Dry, Intact Surgical Drain, Tube Dressing/Activity: Gauze Surgical Drain, Tube Drainage Method: Compression Surgical Drain, Tube - Tube Descr: Serous Continuous IV Infusions TPN@40 and D5LR@35 Triple Lumen Internal jugular vein Left 01/22/2024 Central IV Activity: Assessed Central IV Number of Lumens: Triple Central IV Patency Proximal Port: Continuous infusion Central IV Patency Distal Port: Continuous infusion Central IV Patency Medial Port: Continuous infusion Central IV Dressing Condition: Clean, Dry, Intact Central IV Dressing / Activity: CHG gel pad all-in-one dressing Central IV Line Care: Alcohol port cap(s) in place Central IV Site Condition: No complications Central IV Equipment: IV Pump Central IV CVP Line Status: Accurate, optimally damped Central IV CVP Line Care: Catheter position corrected/withdrawn, Correct catheter position confirmed, Square Wave Test, Leveled, zeroed, calibrated Antecubital Right 01/21/2024 20 gauge Peripheral IV Activity: Assessed Peripheral IV Dressing Condition: Clean, Dry, Intact Peripheral IV Dressing Activity: Transparent dressing Peripheral IV Line Status/Patency: Flushes easily Peripheral IV Line Care: Alcohol port cap(s) in place Peripheral IV Site Condition: No complications Peripheral IV Equipment: PRN Adaptor Neurological Language Intubated or other physical barrier Neurological Symptoms Sedated Gait Unable to assess Extremity Movement Equal Characteristics of Communication Unable to speak, due to vent Characteristics of Speech Unable to assess Level of Consciousness Arousable with repeated stimulation Eye Opening Response Nathan To pain Best Motor Response [place] Localizes to noxious stimuli Best Verbal Response Nathan None [place] Coma Score 8 Response to Stimuli Affected by Sedation GALILEA Yes Left Pupil Description Regular Right Pupil Description Regular Left Pupil Reaction Brisk Right Pupil Reaction Brisk Pupil Size, Left 3 mm Pupil Size, Right 3 mm Strength All Extremities Flexes to noxious stimuli Left Upper Extremity Sensation Intact Right Upper Extremity Sensation Intact Left Lower Extremity Sensation Intact Right Lower Extremity Sensation Intact CN V Facial Sensation Corneal reflex present CN VII Facial Expression and Symmetry Facial movement symmetrical CN IX, X Swallowing, Gag Reflex Gag reflex present Affect/Behavior Calm, Impulsive Orientation Does not interact Right lateral 16 [place] Chest Tube Activity: Assess Chest Tube Connectivity: Water-Seal 20 cm suction Chest Tube Water Seal Chamber Desc: Absence of Bubbling Chest Tube Interventions: Clamps at bedside Chest Tube Drainage Description: Straw colored Chest Tube Dressing Condition: Clean, Dry, Intact Chest Tube Dressing: Occlusive dressing Positioning Repositioned back Activity Status ADL Resting Beds/Devices low air loss bed Assistive Equipment boot(s) on Activity Assistance Maximum assistance Sequential Compression Device bilateral knee high applied/on Oral Care Oral care protocol Skin Care Preventative Intervention(s) heel(s)s elevated Standard Safety Safety level maintained High Risk Safety Room check performed Special Call Device Unable to use call device Demonstrates Correct Call Light Use No dexmedeTOMIDine 0.5 mcg/kg/hr mcg norepinephrine 10 mcg/min mg NS Premix Diluent NS Premix Diluent mL Sodium Chloride 0.9% Sodium Chloride 0.9% mL Degrees Head of Bed Elevated 30 01/27/2024 11:15 EDT Heart Rate Monitored 56 bpm LOW Systolic Blood Pressure Non-Invasive 111 mmHg Diastolic Blood Pressure Non-Invasive 57 mmHg LOW Mean Arterial Pressure (NBP) 73 mmHg Ventilator Mode (A/C) Assist/Control Ventilation Breath Type VC (Volume Control) Ventilator Frequency, Mandatory 24 br/min Tidal Volume, Delivered 0.5 L Positive End Expiratory Pressure 8 cmH20 Flow Trigger (range 0.3 - 15 L/min.) 2 L/min Inspiratory Time (TI) 0.9 second(s) Tube Compensation Off Auto Flow On Ventilator Model Drager V500 Vent FiO2 100 % Respiratory Rate Total 28 br/min HI Minute Volume 12 L/min Respiratory Rate, Spontaneous 4 br/min Inspiratory to Expiratory (I:E) Ratio 1:2 Tidal Volume, Exhaled 0.56 L Peak Inspiratory Pressure 28 cmH20 Mean Airway Pressure 14 Resuscitation Bag Available Yes Mask, Obturator, Syringe at bedside Yes Vent Alarms On and Functional Yes Vent Alarm High Pressure 50 cmH20 High Tidal Volume 1 Vent Alarm High Rate 40 br/min Vent Alarm Low Minute Volume 2 L/min Vent Alarm High Minute Volume 24 L/min Oxygen Saturation 99 % HME (Heat & Moisture Exchanger) On 01/27/2024 11:10 EDT Soft limb holders (Cloth) Wrist, bilateral Restraint Technique: Non Violent Restraint Restraint Activity Type: Continue restraint, same episode Behavior Requiring Non Violent Restraint Attempts to remove medical management devices Type of Medical Devices: Monitoring equipment, Tubes/drains, IV/arterial access, Airway management equipment Rationale for Restraint: Attempting to remove devices, despite current restraints Range of Motion: Repositioned Restraint Skin Assessment: Skin intact, Pulses intact Restraint Nutrition/Hydration: IV fluid Restraint Hygiene/Elimination: Urinary catheter Other Standard Safety: ID band check Bed Standard Safety: Bed in low position, Upper/Half-length side rails up, Wheels locked, HOB elevated Restraint DC Readiness Attempts: Enhanced observation, Environmental changes, Pain management, Postitioning/Turning, Reality orientation Restraint DC Intervention Status: Intervention attempted, not successful 01/27/2024 11:06 EDT Heart Rate Monitored 56 bpm LOW Systolic Blood Pressure Non-Invasive 114 mmHg Diastolic Blood Pressure Non-Invasive 56 mmHg LOW Mean Arterial Pressure (NBP) 73 mmHg Primary Pain Intensity 6 Oxygen Saturation 100 % [id number] 50 mcg mcg 01/27/2024 11:01 EDT Heart Rate Monitored 55 bpm LOW Systolic Blood Pressure Non-Invasive 93 mmHg Diastolic Blood Pressure Non-Invasive 54 mmHg LOW Mean Arterial Pressure (NBP) 66 mmHg Oxygen Saturation 99 % 01/27/2024 10:54 EDT propofol 100 mg mg 01/27/2024 10:51 EDT Heart Rate Monitored 57 bpm LOW Systolic Blood Pressure Non-Invasive 67 mmHg LOW Diastolic Blood Pressure Non-Invasive 39 mmHg <LLOW Mean Arterial Pressure (NBP) 49 mmHg Oxygen Saturation 100 % norepinephrine 10 mcg/min mg NS Premix Diluent NS Premix Diluent mL 01/27/2024 10:45 EDT Heart Rate Monitored 59 bpm LOW Systolic Blood Pressure Non-Invasive 67 mmHg LOW Diastolic Blood Pressure Non-Invasive 46 mmHg <LLOW Mean Arterial Pressure (NBP) 53 mmHg Oxygen Saturation 100 % norepinephrine 5 mcg/min mg NS Premix Diluent NS Premix Diluent mL 01/27/2024 10:44 EDT XR Chest 1 View XR CHEST 1 VIEW 01/27/2024 10:32 EDT FiO2 100 % Oxygen Therapy Ventilator Blood Gas Drawn From Right Radial Artery Site Held by RT Anant Test Positive 01/27/2024 10:29 EDT pH 7.405 pCO2 39.0 mm Hg pO2 43.7 mm Hg CRIT HCO3 23.9 mmol/L CO2 Totl 25.1 mmol/L Base Excess -0.7 mmol/L NA O2 Sat 78.1 % LOW 01/27/2024 10:25 EDT dexmedeTOMIDine 0.6 mcg/kg/hr mcg Sodium Chloride 0.9% Sodium Chloride 0.9% mL 01/27/2024 10:15 EDT Ventilator Mode (A/C) Assist/Control Ventilation Breath Type VC (Volume Control) Ventilator Frequency, Mandatory 24 br/min Positive End Expiratory Pressure 8 cmH20 Ventilator Model Drager V500 Vent FiO2 100 % 01/27/2024 10:10 EDT dexmedeTOMIDine 0.4 mcg/kg/hr mcg Sodium Chloride 0.9% Sodium Chloride 0.9% mL 01/27/2024 10:08 EDT Heart Rate Monitored 60 bpm Systolic Blood Pressure Non-Invasive 104 mmHg Diastolic Blood Pressure Non-Invasive 61 mmHg Mean Arterial Pressure (NBP) 74 mmHg Respirations Hyperpnea Respiratory Pattern Regular Respiratory Pattern Detailed Vented Chest Motion Symmetrical Breath Sounds Auscultated Anterior only All Lobes Breath Sounds Coarse crackles Suction Method Endotracheal Cough Weak Suction Device Inline suctioning Sputum Amount Large Sputum Color Cream Sputum Consistency Thick Oxygen Saturation 78 % <LLOW Tracheal Position Midline 01/27/2024 10:07 EDT Surgical Progress Note Free Text Note 01/27/2024 9:51 EDT acetaminophen 1,000 mg mg 01/27/2024 9:50 EDT Blood Glucose, Capillary 125 mg/dL HI Blood Glucose Testing Reason Routine Apical Heart Rate 68 bpm Heart Rate Monitored 66 bpm Respiratory Rate 24 br/min HI Systolic Blood Pressure Non-Invasive 108 mmHg Diastolic Blood Pressure Non-Invasive 54 mmHg LOW Mean Arterial Pressure (NBP) 70 mmHg Reason For Taking VItal Signs Routine Oral Care ICU Done Eye Care Done Sedation Level -1 Drowsy Sedation Level Interventions Calm Primary Pain Location Generalized Primary Pain Intensity 3 Primary Pain Non-Pharma Intervention Rest, Repositioning Primary Pain Nonverbal Response Appears restful Pain Scale Type Behavioral pain scale Monitor Alarms On and Limits Checked Heart Sounds ICU S1S2 Heart Rhythm Regular Radial Pulse, Left 2+ Normal Radial Pulse, Right 2+ Normal Generalized Edema Ratin+ mild/4mm Sclera edema Bilateral Edema Ratin+ trace/2mm Hand edema Bilateral Edema Ratin+ moderate/6mm Cardiac Rhythm Sinus rhythm Monitoring Lead II, V1/MCL1 Alarms On and Functional Yes Respirations Unlabored Respiratory Pattern Regular Respiratory Pattern Detailed Vented Chest Motion Symmetrical Breath Sounds Auscultated Anterior only All Lobes Breath Sounds Diminished Suction Method Endotracheal Cough Weak Suction Device Inline suctioning Sputum Amount Scant Sputum Color Clear Sputum Consistency Frothy Ventilator Mode (PSVPro) PSVPro Positive End Expiratory Pressure 5 cmH20 Pressure Support 5 cmH20 FiO2 45 % Vent FiO2 45 % Resuscitation Bag Available Yes Spontaneous Breathing Trial Completed Spontaneous Breathing Results Increased respiratory rate, Decreased pulse ox Vent Alarms On and Functional Yes Oxygen Therapy Ventilator Oxygen Saturation 94 % Tracheal Position Midline Abdomen Description Distended Abdomen Palpation Semi-firm Bowel Continence No bowel movement Bowel Sounds All Quadrants Hypoactive Nasogastric (NG) Nostril, left Gastrointestinal Tube Activity: Assessed Enteral Tube Insertion cm [place] at Nare: 78 cm GI Tube Method of Drainage: Medium Intermittent Suction Gastric Output Description: Bile Gastrointestinal Tube Care: Oral care, Secured Gastrointestinal Tube Site Condition: No complications Urinary Elimination Urinary catheter draining Urinary Elimination Devices Indwelling catheter Urethral Indwelling/Continuous 16 Fr 01/21/2024 Urinary Catheter Activity: Assessed Urinary Catheter Site Condition: No complications Skin Symptoms Bruising Skin Integrity Not intact Skin Turgor Non-Elastic Skin Moisture General Dry Abdomen Anterior Wound Status: Unchanged Abdomen Left Lateral Wound Status: Unchanged Luke-Barillas # 1 Abdomen Right Surgical Drain, Tube Activity: Assessed Surgical Drain, Tube Care: [place] collapsed Surgical Drain Site Condition: No complications Luke-Barillas # 2 Abdomen Right Surgical Drain, Tube Activity: Assessed Surgical Drain, Tube Care: [place] collapsed Surgical Drain Site Condition: No complications Luke-Barillas # 3 Abdomen Right Surgical Drain, Tube Activity: Assessed Surgical Drain, Tube Care: [place] collapsed Surgical Drain Site Condition: No complications Luke-Barillas # 4 Abdomen Left Surgical Drain, Tube Activity: Assessed Surgical Drain, Tube Care: [place] collapsed Surgical Drain Site Condition: No complications Luke-Barillas Left Surgical Drain, Tube Activity: Assessed Surgical Drain, Tube Care: [place] collapsed Surgical Drain Site Condition: No complications Continuous IV Infusions TPN@40 and D5LR@35 Triple Lumen Internal jugular vein Left 01/22/2024 Central IV Activity: Assessed Central IV Site Condition: No complications Central IV Equipment: IV Pump Antecubital Right 01/21/2024 20 gauge Peripheral IV Activity: Assessed Peripheral IV Site Condition: No complications Peripheral IV Equipment: PRN Adaptor Neurological Symptoms Sedated Characteristics of Communication Unable to speak, due to vent Facial Symmetry Symmetric Level of Consciousness Alert GALILEA Yes Strength All Extremities Weak Affect/Behavior Calm, Impulsive Orientation Follows simple commands Right lateral 16 [place] Chest Tube Activity: Assess Chest Tube Connectivity: Water-Seal 20 cm suction Chest Tube Water Seal Chamber Desc: Absence of Bubbling Chest Tube Interventions: Clamps at bedside Chest Tube Drainage Description: Serosanguineous Chest Tube Dressing Condition: Clean, Dry, Intact Chest Tube Dressing: Occlusive dressing Positioning Repositioned left side Activity Status ADL Resting Beds/Devices low air loss bed Assistive Equipment boot(s) on Activity Assistance Maximum assistance Sequential Compression Device bilateral knee high applied/on Oral Care Oral care protocol Standard Safety Safety level maintained High Risk Safety Room check performed Special Call Device Unable to use call device Demonstrates Correct Call Light Use No dexmedeTOMIDine 0.3 mcg/kg/hr mcg insulin regular unit(s)/hr unit(s) metoprolol 5 mg mg micafungin 100 mg mg NS Premix Diluent NS Premix Diluent mL Sodium Chloride 0.9% Sodium Chloride 0.9% mL Sodium Chloride 0.9% 100 mL mL Degrees Head of Bed Elevated 30 01/27/2024 9:48 EDT Nephrology Progress Note Progress Note 01/27/2024 9:48 EDT Pressure Support 5 cmH20 01/27/2024 9:42 EDT Discharge To, Anticipated Home independently Anticipated Discharge Date 01/30/2024 Transition Planning Note Transition Planning Ongoing Assessment 01/27/2024 9:15 EDT Soft limb holders (Cloth) Wrist, bilateral Restraint Technique: Non Violent Restraint Restraint Activity Type: Continue restraint, same episode Behavior Requiring Non Violent Restraint Attempts to remove medical management devices Type of Medical Devices: Monitoring equipment, Tubes/drains, IV/arterial access, Airway management equipment Rationale for Restraint: Attempting to remove devices, despite current restraints Range of Motion: Repositioned Restraint Skin Assessment: Skin intact, Pulses intact Restraint Nutrition/Hydration: IV fluid Restraint Hygiene/Elimination: Urinary catheter Other Standard Safety: ID band check Bed Standard Safety: Bed in low position, Upper/Half-length side rails up, Wheels locked, HOB elevated Restraint DC Readiness Attempts: Enhanced observation, Environmental changes, Family/Visitor at bedside with nursing supervision, Pain management Restraint DC Intervention Status: Intervention attempted, not successful 01/27/2024 9:00 EDT CAM Mental Status Change & Fluctuation Yes CAM Inattention No CAM Disorganized Thinking No CAM Altered Level of Consciousness Yes Confusion Assessment Method Score Negative 01/27/2024 8:45 EDT Heart Rate Monitored 70 bpm Systolic Blood Pressure Non-Invasive 102 mmHg Diastolic Blood Pressure Non-Invasive 51 mmHg LOW Mean Arterial Pressure (NBP) 66 mmHg Oxygen Saturation 92 % LOW 01/27/2024 8:37 EDT dexmedeTOMIDine 0.3 mcg/kg/hr mcg Sodium Chloride 0.9% Sodium Chloride 0.9% mL 01/27/2024 8:32 EDT Heart Rate Monitored 72 bpm Systolic Blood Pressure Non-Invasive 128 mmHg Diastolic Blood Pressure Non-Invasive 55 mmHg LOW Mean Arterial Pressure (NBP) 76 mmHg Oxygen Saturation 93 % dexmedeTOMIDine 0.3 mcg/kg/hr mcg norepinephrine mcg/min mg NS Premix Diluent NS Premix Diluent mL Sodium Chloride 0.9% Sodium Chloride 0.9% mL 01/27/2024 8:26 EDT dexmedeTOMIDine 0.3 mcg/kg/hr mcg Sodium Chloride 0.9% Sodium Chloride 0.9% mL 01/27/2024 8:15 EDT Heart Rate Monitored 65 bpm Systolic Blood Pressure Non-Invasive 96 mmHg Diastolic Blood Pressure Non-Invasive 48 mmHg <LLOW Mean Arterial Pressure (NBP) 63 mmHg Oxygen Saturation 92 % LOW 01/27/2024 8:01 EDT Heart Rate Monitored 79 bpm Systolic Blood Pressure Non-Invasive 134 mmHg Diastolic Blood Pressure Non-Invasive 70 mmHg Mean Arterial Pressure (NBP) 89 mmHg Oxygen Saturation 93 % dexmedeTOMIDine 0.3 mcg/kg/hr mcg dexmedeTOMIDine Begin Bag 4 mL mcg norepinephrine 2 mcg/min mg NS Premix Diluent NS Premix Diluent mL Sodium Chloride 0.9% Begin Bag 96 mL mL Sodium Chloride 0.9% Sodium Chloride 0.9% mL 01/27/2024 7:47 EDT Critical Care Progress Notes Progress Note (Modified) 01/27/2024 7:43 EDT Weaning Negative Inspiratory Force -12 cmH20 Weaning Respiratory Rate 26 br/min Weaning Rapid Shallow Breathing Index 37 Weaning Tidal Volume 0.586 L Weaning Vital Capacity 0.89 L 01/27/2024 7:41 EDT Ventilator Mode (PSVPro) PSVPro Positive End Expiratory Pressure 5 cmH20 Pressure Support 10 cmH20 Vent FiO2 45 % Respiratory Rate Total 21 br/min Minute Volume 12 L/min Tidal Volume, Exhaled 0.555 L Peak Inspiratory Pressure 18 cmH20 Mean Airway Pressure 10 Vent Alarms On and Functional Yes 01/27/2024 7:40 EDT Spontaneous Breathing Trial Initiated 01/27/2024 7:38 EDT Ventilator Mode (A/C) Assist/Control Ventilation Breath Type VC (Volume Control) Ventilator Frequency, Mandatory 24 br/min Tidal Volume, Delivered 0.5 L Flow Trigger (range 0.3 - 15 L/min.) 2 L/min Inspiratory Time (TI) 0.9 second(s) Tube Compensation Off Auto Flow On Ventilator Model Drager V500 Ventilator ID [id number] Vent FiO2 45 % Respiratory Rate Total 26 br/min HI Minute Volume 12 L/min Respiratory Rate, Spontaneous 2 br/min Inspiratory to Expiratory (I:E) Ratio 1:2 Tidal Volume, Exhaled 0.545 L Peak Inspiratory Pressure 20 cmH20 Mean Airway Pressure 10 Resuscitation Bag Available Yes Mask, Obturator, Syringe at bedside Yes Vent Alarms On and Functional Yes Vent Alarm High Pressure 40 cmH20 High Tidal Volume 1.0 Vent Alarm High Rate 40 br/min Vent Alarm Low Minute Volume 3 L/min Vent Alarm High Minute Volume 18 L/min HME (Heat & Moisture Exchanger) On 01/27/2024 7:32 EDT piperacillin-tazobactam 3.375 gram(s) gram(s) 01/27/2024 7:29 EDT chlorhexidine topical 15 mL mL ocular lubricant 1 drop(s) drop(s) 01/27/2024 7:16 EDT Ventilator Activity On 01/27/2024 7:15 EDT Blood Glucose, Capillary 171 mg/dL HI Blood Glucose Testing Reason Routine Temperature Oral 36.9 DegC Heart Rate Monitored 77 bpm Respiratory Rate 24 br/min HI Systolic Blood Pressure Non-Invasive 136 mmHg Diastolic Blood Pressure Non-Invasive 63 mmHg Mean Arterial Pressure (NBP) 83 mmHg Reason For Taking VItal Signs Routine Oral Care ICU Done Teeth Brushed Done Eye Care Done Sedation Level +1 Restless Sedation Level Interventions IV Sedation Increased Primary Pain Location Generalized Primary Pain Intensity 3 Primary Pain Non-Pharma Intervention Rest, Repositioning Primary Pain Nonverbal Response Appears restful Pain Scale Type Behavioral pain scale Monitor Alarms On and Limits Checked Cardiovascular Symptoms Edema Nail Bed Color [place] Capillary Refill < 2 seconds Heart Sounds ICU S1S2 Heart Rhythm Regular Dorsalis Pedis Pulse, Left 1+ [place] Dorsalis Pedis Pulse, Right 1+ [place] Posttibial Pulse, Left 1+ [place] Posttibial Pulse, Right 1+ [place] Radial Pulse, Left 2+ Normal Radial Pulse, Right 2+ Normal Generalized Edema Ratin+ mild/4mm Sclera edema Bilateral Edema Ratin+ trace/2mm Hand edema Bilateral Edema Ratin+ moderate/6mm Central Venous Pressure 2 mmHg Cardiac Rhythm Sinus rhythm Monitoring Lead II, V1/MCL1 Alarms On and Functional Yes Heart Rate Alarm Set At - Low 50 Heart Rate Alarm Set At - High 150 NSBP Alarm Low 90 NSBP Alarm High 160 HI Respirations Unlabored Respiratory Pattern Regular Respiratory Pattern Detailed Vented Chest Motion Symmetrical Breath Sounds Auscultated Anterior only All Lobes Breath Sounds Diminished Suction Method Endotracheal Cough Strong Suction Device Inline suctioning Sputum Amount None Ventilator Mode (A/C) Assist/Control Ventilation Ventilator Frequency, Mandatory 24 br/min Tidal Volume, Delivered 0.500 L Vent FiO2 45 % Tidal Volume, Exhaled 0.537 L Resuscitation Bag Available Yes Vent Alarms On and Functional Yes Oxygen Saturation 94 % Tracheal Position Midline Abdomen Description Distended Abdomen Palpation Semi-firm Passing Flatus Yes Bowel Continence No bowel movement Bowel Sounds All Quadrants Hypoactive Nasogastric (NG) Nostril, left Gastrointestinal Tube Activity: Assessed Enteral Tube Insertion cm [place] at Nare: 78 cm GI Tube Method of Drainage: Medium Intermittent Suction Gastric Output Description: Bile Gastrointestinal Tube Care: Oral care, Secured Gastrointestinal Tube Site Condition: No complications GI Tube Placement Confirmation: X-Ray Urinary Elimination Urinary catheter draining Urine Color Yellow Urine Description Clear Perineum Intact Urinary Elimination Devices Indwelling catheter Urethral Indwelling/Continuous 16 Fr 01/21/2024 Urinary Catheter Indication: ICU Patient-Hemodynamic instability Urinary Catheter Activity: Assessed Urinary Catheter Secured: Securement device on Urinary Catheter Drainage System: Dependent drainage bag Urinary Catheter Site Condition: No complications Facial Movement Makes facial grimaces Skin Symptoms Bruising All Extremity Description Normal for ethnicity Skin Temperature Warm Temperature All Extremities Warm Skin Description Normal for ethnicity Skin Integrity Not intact Skin Turgor Non-Elastic Mucous Membrane Color [place] Mucous Membrane Description Dry Skin Color General Usual for ethnicity Skin Moisture General Dry Sensory Perception Alex Very limited Moisture Alex Very moist Activity Alex Bedfast Mobility Alex Very limited Nutrition Alex Adequate Friction and Shear Alex Potential problem Alex Score 12 LOW Hospital Acquired Pressure Injury Risk High risk (score 12 and below) Abdomen Anterior Skin Abnormality Type: Surgical incision Incision, Wound Dressing/Activity: Assessed Incision, Wound Dressing Assessment: Clean, Dry, Intact Incision, Wound Dressing: Vacuum assisted closure Negative Pressure Wound SettinmmHg Incision, Wound Surrounding Tissue: Erythema Wound Status: Unchanged Abdomen Left Lateral Skin Abnormality Type: Tear Wound Status: Unchanged Luke-Barillas # 1 Abdomen Right Surgical Drain, Tube Activity: Assessed Surgical Drain, Tube Care: [place] collapsed Surgical Drain Site Condition: No complications Surgical Drain, Tube Dressing Condition: Clean, Dry, Intact Surgical Drain, Tube Dressing/Activity: Gauze Surgical Drain, Tube Drainage Method: Compression Surgical Drain, Tube - Tube Descr: Serous Luke-Barillas # 2 Abdomen Right Surgical Drain, Tube Activity: Assessed Surgical Drain, Tube Care: [place] collapsed Surgical Drain Site Condition: No complications Surgical Drain, Tube Dressing Condition: Clean, Dry, Intact Surgical Drain, Tube Dressing/Activity: Gauze Surgical Drain, Tube Drainage Method: Compression Surgical Drain, Tube - Tube Descr: Serous Luke-Barillas # 3 Abdomen Right Surgical Drain, Tube Activity: Assessed Surgical Drain, Tube Care: [place] collapsed Surgical Drain Site Condition: No complications Surgical Drain, Tube Dressing Condition: Clean, Dry, Intact Surgical Drain, Tube Dressing/Activity: Gauze Surgical Drain, Tube Drainage Method: Compression Surgical Drain, Tube - Tube Descr: Serous Luke-[place] # 4 Abdomen Left Surgical Drain, Tube Activity: Assessed Surgical Drain, Tube Care: [place] collapsed Surgical Drain Site Condition: No complications Surgical Drain, Tube Dressing Condition: Clean, Dry, Intact Surgical Drain, Tube Dressing/Activity: Gauze Surgical Drain, Tube Drainage Method: Compression Surgical Drain, Tube - Tube Descr: Serous [place] Left Surgical Drain, Tube Activity: Assessed Surgical Drain, Tube Care: [place] collapsed Surgical Drain Site Condition: No complications Surgical Drain, Tube Dressing Condition: Clean, Dry, Intact Surgical Drain, Tube Dressing/Activity: Gauze Surgical Drain, Tube Drainage Method: Compression Surgical Drain, Tube - Tube Descr: Serous Continuous IV Infusions TPN @ 40 and D5LR @35 Triple Lumen Internal jugular vein Left 01/22/2024 Central IV Activity: Assessed Central IV Number of Lumens: Triple Central IV Patency Proximal Port: Continuous infusion Central IV Patency Distal Port: Continuous infusion Central IV Patency Medial Port: Continuous infusion Central IV Dressing Condition: Clean, Dry, Intact Central IV Dressing / Activity: CHG gel pad all-in-one dressing Central IV Line Care: Alcohol port cap(s) in place Central IV Site Condition: No complications Central IV Equipment: IV Pump Central IV CVP Line Status: Accurate, optimally damped Central IV CVP Line Care: Catheter position corrected/withdrawn, Correct catheter position confirmed, Square Wave Test, Leveled, zeroed, calibrated Antecubital Right 01/21/2024 20 gauge Peripheral IV Activity: Assessed Peripheral IV Dressing Condition: Clean, Dry, Intact Peripheral IV Dressing Activity: Transparent dressing Peripheral IV Line Status/Patency: Flushes easily Peripheral IV Site Condition: No complications Peripheral IV Equipment: PRN Adaptor Neurological Language Intubated or other physical barrier Neurological Symptoms Sedated Gait Unable to assess Extremity Movement Equal Characteristics of Communication Unable to speak, due to vent Characteristics of Speech Unable to assess Facial Symmetry Symmetric Level of Consciousness Alert Eye Opening Response [place] Spontaneously Best Motor Response Nathan Obeys simple commands Best Verbal Response [place] None [place] Coma Score 11 Response to Stimuli Affected by Sedation GALILEA Yes Left Pupil Description Regular Right Pupil Description Regular Left Pupil Reaction Brisk Right Pupil Reaction Brisk Pupil Size, Left 3 mm Pupil Size, Right 3 mm Strength All Extremities Weak Left Upper Extremity Sensation Intact Right Upper Extremity Sensation Intact Left Lower Extremity Sensation Intact Right Lower Extremity Sensation Intact CN V Facial Sensation Corneal reflex present CN VII Facial Expression and Symmetry Wrinkles forehead CN IX, X Swallowing, Gag Reflex Gag reflex present Parry Screen Daily History of Fall in Last 3 Months Parry No Presence of Secondary Diagnosis Parry Yes Use of Ambulatory Aid Parry None, bedrest, wheelchair, nurse IV/PRN Adapter Fall Risk [place] Yes Gait Weak or Impaired Fall Risk [place] Normal, bedrest, immobile Mental Status Fall Risk Parry Forgets limitations Parry Fall Risk Score 50 HI Violence Risk Confused Yes Violence Risk Irritable No Violence Risk Boisterous No Violence Risk Verbal Threats No Violence Risk Physical Threats No Violence Risk Attacking Objects No Violence Risk Predictor Score 1 Violence Risk Intervention None Violence Risk Current Interventions Restraint Non Violent Affect/Behavior Calm, Impulsive Orientation Follows simple commands Soft limb holders (Cloth) Wrist, bilateral Restraint Technique: Non Violent Restraint Restraint Activity Type: Continue restraint, same episode Behavior Requiring Non Violent Restraint Attempts to remove medical management devices Type of Medical Devices: Monitoring equipment, Tubes/drains, IV/arterial access, Airway management equipment Rationale for Restraint: Attempting to remove devices, despite current restraints Range of Motion: Repositioned Restraint Skin Assessment: Skin intact, Pulses intact Restraint Nutrition/Hydration: IV fluid Restraint Hygiene/Elimination: Urinary catheter Other Standard Safety: ID band check Bed Standard Safety: Bed in low position, Upper/Half-length side rails up, Wheels locked, HOB elevated Restraint DC Readiness Attempts: Enhanced observation, Environmental changes, Pain management, Postitioning/Turning, Reality orientation Restraint DC Intervention Status: Intervention attempted, not successful Right lateral 16 Micronesian Chest Tube Activity: Assess Chest Tube Connectivity: Water-Seal 20 cm suction Chest Tube Water Seal Chamber Desc: Absence of Bubbling Chest Tube Interventions: Clamps at bedside Chest Tube Drainage Description: Straw colored Chest Tube Dressing Condition: Clean, Dry, Intact Chest Tube Dressing: Occlusive dressing BMAT Existing Patient Condition/Safety Strict bedrest Positioning Repositioned right side Activity Status ADL Resting Beds/Devices low air loss bed Assistive Equipment boot(s) on Activity Assistance Maximum assistance Sequential Compression Device bilateral knee high applied/on NPO Status Maintained Oral Care Oral care protocol Skin Care Preventative Intervention(s) heel(s)s elevated Standard Safety Safety level maintained High Risk Safety Room check performed Special Call Device Unable to use call device Demonstrates Correct Call Light Use No dexmedeTOMIDine 0.3 mcg/kg/hr mcg insulin regular 5.5 unit(s)/hr unit(s) norepinephrine 4 mcg/min mg NS Premix Diluent NS Premix Diluent mL NS Premix Diluent NS Premix Diluent mL Sodium Chloride 0.9% Sodium Chloride 0.9% mL Degrees Head of Bed Elevated 30 01/27/2024 7:01 EDT Heart Rate Monitored 61 bpm Systolic Blood Pressure Non-Invasive 123 mmHg Diastolic Blood Pressure Non-Invasive 61 mmHg Mean Arterial Pressure (NBP) 77 mmHg Oxygen Saturation 92 % LOW norepinephrine 4 mcg/min mg NS Premix Diluent NS Premix Diluent mL 01/27/2024 7:00 EDT Wound Vac 1 100 mL 01/27/2024 6:59 EDT insulin regular 32.625 unit(s) unit(s) norepinephrine 0.173508 mg mg NS Premix Diluent 16.2592 mL mL NS Premix Diluent 32.625 mL mL 01/27/2024 6:59 EDT dexmedeTOMIDine 224 mcg mcg Dextrose 5% in Lact Ringers Injection 280 mL mL Sodium Chloride 0.9% 53.76 mL mL TPN 324 mL mL amino acids in TPN 1.6875 % % calcium gluconate in TPN 1.93503 mEq/L mEq/L dextrose in TPN 5.52540 % % lipids in TPN 1.35 % % magnesium sulfate in TPN 1.6875 mEq/L mEq/L multivitamin in TPN 3.375 mL/day mL/day potassium chloride in TPN 6.75 mEq/L mEq/L potassium phosphate in TPN 5.0625 mEq/L mEq/L sodium chloride in TPN 11.8125 mEq/L mEq/L trace elements in TPN 0.3375 mL/day mL/day 01/27/2024 6:55 EDT Cardiac Rhythm Sinus rhythm Monitoring Lead II, V1/MCL1 NC Interval 0.17 second(s) QRS Duration 0.13 second(s) QT Interval 0.38 second(s) QTc Interval 0.42 second(s) 01/27/2024 6:45 EDT Heart Rate Monitored 72 bpm Systolic Blood Pressure Non-Invasive 135 mmHg Diastolic Blood Pressure Non-Invasive 66 mmHg Mean Arterial Pressure (NBP) 86 mmHg Oxygen Saturation 94 % 01/27/2024 6:30 EDT Heart Rate Monitored 68 bpm Systolic Blood Pressure Non-Invasive 137 mmHg Diastolic Blood Pressure Non-Invasive 71 mmHg Mean Arterial Pressure (NBP) 87 mmHg Oxygen Saturation 96 % norepinephrine 6 mcg/min mg NS Premix Diluent NS Premix Diluent mL 01/27/2024 6:27 EDT XR Chest 1 View XR CHEST 1 VIEW 01/27/2024 6:15 EDT Heart Rate Monitored 58 bpm LOW Systolic Blood Pressure Non-Invasive 110 mmHg Diastolic Blood Pressure Non-Invasive 64 mmHg Mean Arterial Pressure (NBP) 77 mmHg Oxygen Saturation 95 % 01/27/2024 6:09 EDT Heart Rate Monitored 68 bpm Systolic Blood Pressure Non-Invasive 102 mmHg Diastolic Blood Pressure Non-Invasive 57 mmHg LOW Mean Arterial Pressure (NBP) 71 mmHg Oxygen Saturation 95 % 01/27/2024 6:00 EDT Heart Rate Monitored 62 bpm Systolic Blood Pressure Non-Invasive 69 mmHg LOW Diastolic Blood Pressure Non-Invasive 44 mmHg <LLOW Mean Arterial Pressure (NBP) 52 mmHg Sedation Level -2 Light Sedation Sedation Level Interventions IV Sedation Decreased Oxygen Saturation 91 % LOW dexmedeTOMIDine 0.2 mcg/kg/hr mcg norepinephrine 8 mcg/min mg NS Premix Diluent NS Premix Diluent mL Sodium Chloride 0.9% Sodium Chloride 0.9% mL 01/27/2024 5:45 EDT Heart Rate Monitored 59 bpm LOW Systolic Blood Pressure Non-Invasive 76 mmHg LOW Diastolic Blood Pressure Non-Invasive 44 mmHg <LLOW Mean Arterial Pressure (NBP) 55 mmHg Oxygen Saturation 93 % norepinephrine 4 mcg/min mg NS Premix Diluent NS Premix Diluent mL 01/27/2024 5:41 EDT calcium chloride 800 mg mg potassium chloride 40 mEq mEq Dextrose 5% in Water 250 mL mL Sodium Chloride 0.9% 50 mL mL 01/27/2024 5:30 EDT Heart Rate Monitored 74 bpm Systolic Blood Pressure Non-Invasive 109 mmHg Diastolic Blood Pressure Non-Invasive 56 mmHg LOW Mean Arterial Pressure (NBP) 72 mmHg Oxygen Saturation 94 % Soft limb holders (Cloth) Wrist, bilateral Restraint Technique: Non Violent Restraint Restraint Activity Type: Continue restraint, same episode Behavior Requiring Non Violent Restraint Attempts to remove medical management devices Type of Medical Devices: Monitoring equipment, Tubes/drains, IV/arterial access, Airway management equipment Rationale for Restraint: Attempting to remove devices, despite current restraints Range of Motion: Repositioned Restraint Skin Assessment: Skin intact, Pulses intact Restraint Nutrition/Hydration: IV fluid Restraint Hygiene/Elimination: Urinary catheter Other Standard Safety: ID band check Bed Standard Safety: Bed in low position, Upper/Half-length side rails up, Wheels locked, HOB elevated Restraint DC Readiness Attempts: Enhanced observation, Environmental changes, Pain management, Postitioning/Turning, Reality orientation Restraint DC Intervention Status: Intervention attempted, not successful 01/27/2024 5:23 EDT ocular lubricant 1 mendy mendy pantoprazole 40 mg mg 01/27/2024 5:20 EDT Primary Pain Intensity 6 fentaNYL 50 mcg mcg 01/27/2024 5:16 EDT Blood Glucose, Capillary 183 mg/dL HI Blood Glucose Testing Reason Routine Heart Rate Monitored 70 bpm Respiratory Rate 24 br/min HI Systolic Blood Pressure Non-Invasive 101 mmHg Diastolic Blood Pressure Non-Invasive 57 mmHg LOW Mean Arterial Pressure (NBP) 72 mmHg Reason For Taking VItal Signs Routine Oral Care ICU Done Eye Care Done Sedation Level 0 Alert and Calm Sedation Level Interventions Calm Primary Pain Location Generalized Primary Pain Intensity 6 Primary Pain Pharma Intervention Medication Primary Pain Non-Pharma Intervention Rest, Repositioning Primary Pain Nonverbal Response Nods Yes Pain Scale Type Behavioral pain scale Monitor Alarms On and Limits Checked Heart Sounds ICU S1S2 Heart Rhythm Regular Radial Pulse, Left 2+ Normal Radial Pulse, Right 2+ Normal Generalized Edema Ratin+ mild/4mm Sclera edema Bilateral Edema Ratin+ trace/2mm Hand edema Bilateral Edema Ratin+ moderate/6mm Cardiac Rhythm Sinus rhythm Monitoring Lead II, V1/MCL1 Alarms On and Functional Yes Respirations Unlabored Respiratory Pattern Regular Respiratory Pattern Detailed Vented Chest Motion Symmetrical Patient Airway Status Patent with support Breath Sounds Auscultated Anterior only All Lobes Breath Sounds Diminished Suction Method Endotracheal Cough Strong Suction Device Inline suctioning Sputum Amount None Ventilator Mode (A/C) Assist/Control Ventilation Ventilator Frequency, Mandatory 24 br/min (Modified) Tidal Volume, Delivered 0.500 L Positive End Expiratory Pressure 5 cmH20 FiO2 45 % Vent FiO2 45 % Tidal Volume, Exhaled 0.510 L Resuscitation Bag Available Yes Vent Alarms On and Functional Yes Oxygen Therapy Ventilator Oxygen Saturation 94 % Tracheal Position Midline Cuffed endotracheal tube 8 01/21/2024 Endotracheal Tube Activity: Assessed Endotracheal Tube Placement: Oral, mid ET Tube Insertion cm [place] at Lip: 23 cm Endotracheal Tube Position Confirmation: Breath sounds Endotracheal Tube Status: Patent, Secure, manufactured tube alfredo Endotracheal Tube Care: Oral care Abdomen Description Distended Abdomen Palpation Semi-firm Bowel Continence No bowel movement Bowel Sounds All Quadrants Hypoactive Nasogastric (NG) Nostril, left Gastrointestinal Tube Activity: Assessed Enteral Tube Insertion cm [place] at Nare: 78 cm GI Tube Method of Drainage: Medium Intermittent Suction Gastric Output Description: Bile Gastrointestinal Tube Care: Oral care, Secured Gastrointestinal Tube Site Condition: No complications Gastric Tube Output: 150 mL Urinary Elimination Urinary catheter draining Urinary Elimination Devices Indwelling catheter Urethral Indwelling/Continuous 16 Fr 01/21/2024 Urinary Catheter Activity: Assessed Urinary Catheter Site Condition: No complications Urinary Catheter Output: 775 mL Urinary Catheter Care Completed: Yes Skin Integrity Not intact Skin Turgor Non-Elastic Skin Moisture General Dry Abdomen Anterior Wound Status: Unchanged Abdomen Left Lateral Wound Status: Unchanged Luke-Barillas # 1 Abdomen Right Surgical Drain, Tube Activity: Assessed Surgical Drain, Tube Care: [place] collapsed Surgical Drain Site Condition: No complications Surgical Drain, Tube - Tube Descr: Serous Surgical Drain, Tube Output: 2.5 mL Luke-Barillas # 2 Abdomen Right Surgical Drain, Tube Activity: Assessed Surgical Drain, Tube Care: [place] collapsed Surgical Drain Site Condition: No complications Surgical Drain, Tube - Tube Descr: Serous Surgical Drain, Tube Output: 20 mL Luke-[place] # 3 Abdomen Right Surgical Drain, Tube Activity: Assessed Surgical Drain, Tube Care: [place] collapsed Surgical Drain Site Condition: No complications Surgical Drain, Tube - Tube Descr: Serous Surgical Drain, Tube Output: 10 mL Luke-Barillas # 4 Abdomen Left Surgical Drain, Tube Activity: Assessed Surgical Drain, Tube Care: [place] collapsed Surgical Drain Site Condition: No complications Surgical Drain, Tube - Tube Descr: Serous Surgical Drain, Tube Output: 5 mL [place] Left Surgical Drain, Tube Activity: Assessed Surgical Drain, Tube Care: [place] collapsed Surgical Drain Site Condition: No complications Surgical Drain, Tube - Tube Descr: Serous Surgical Drain, Tube Output: 2.5 mL Continuous IV Infusions TPN@40 and D5LR@35 Triple Lumen Internal jugular vein Left 01/22/2024 Central IV Activity: Assessed Central IV Site Condition: No complications Central IV Equipment: IV Pump Antecubital Right 01/21/2024 20 gauge Peripheral IV Activity: Assessed Peripheral IV Site Condition: No complications Peripheral IV Equipment: PRN Adaptor Characteristics of Communication Unable to speak, due to vent Facial Symmetry Symmetric Level of Consciousness Arousable with minimal stimulation GALILEA Yes Strength All Extremities Weak Affect/Behavior Impulsive Orientation Follows simple commands Right lateral 16 Micronesian Chest Tube Activity: Assess Chest Tube Connectivity: Water-Seal 20 cm suction Chest Tube Water Seal Chamber Desc: Absence of Bubbling Chest Tube Interventions: Clamps at bedside Chest Tube Drainage Description: Serosanguineous Chest Tube Dressing Condition: Clean, Dry, Intact Chest Tube Dressing: Occlusive dressing Chest Tube Output: 50 mL Orientation Assessment Unable to evaluate Individuals Taught Patient Learning Readiness critical condition Barriers to Learning Acuity of illness Teaching Method Explanation Preferred Spoken Language Nigerien Preferred Written Language Nigerien Restraint Use Education Reason for restraint use, Restraint release criteria Restraint Teaching Evaluation Needs further teaching Positioning Repositioned back Activity Status ADL Resting Beds/Devices low air loss bed Assistive Equipment boot(s) on Activity Assistance Maximum assistance Sequential Compression Device bilateral knee high applied/on Oral Care Oral care protocol Skin Care Preventative Intervention(s) heel(s)s elevated Standard Safety Safety level maintained High Risk Safety Room check performed Special Call Device Unable to use call device Demonstrates Correct Call Light Use No dexmedeTOMIDine 0.3 mcg/kg/hr mcg insulin regular 5.5 unit(s)/hr unit(s) norepinephrine 2 mcg/min mg NS Premix Diluent NS Premix Diluent mL NS Premix Diluent NS Premix Diluent mL Sodium Chloride 0.9% Sodium Chloride 0.9% mL Degrees Head of Bed Elevated 30 01/27/2024 4:45 EDT Heart Rate Monitored 68 bpm Systolic Blood Pressure Non-Invasive 106 mmHg Diastolic Blood Pressure Non-Invasive 52 mmHg LOW Mean Arterial Pressure (NBP) 68 mmHg Central Venous Pressure 11 mmHg HI Oxygen Saturation 95 % 01/27/2024 4:30 EDT Heart Rate Monitored 67 bpm Systolic Blood Pressure Non-Invasive 97 mmHg Diastolic Blood Pressure Non-Invasive 49 mmHg <LLOW Mean Arterial Pressure (NBP) 64 mmHg Oxygen Saturation 96 % norepinephrine 2 mcg/min mg NS Premix Diluent NS Premix Diluent mL 01/27/2024 4:29 EDT Heart Rate Monitored 68 bpm Respiratory Rate 25 br/min HI Patient Airway Status Patent with support Ventilator Mode (A/C) Assist/Control Ventilation Breath Type VC (Volume Control) Ventilator Frequency, Mandatory 24 br/min Tidal Volume, Delivered 0.500 L Positive End Expiratory Pressure 5 cmH20 FiO2 45 % Flow Trigger (range 0.3 - 15 L/min.) 2.0 L/min Inspiratory Time (TI) 0.9 second(s) Tube Compensation Off Auto Flow On Ventilator Model Drager V500 Ventilator ID [id number] Vent FiO2 45 % Respiratory Rate Total 25 br/min HI Minute Volume 10.9 L/min Respiratory Rate, Spontaneous 1 br/min Inspiratory to Expiratory (I:E) Ratio 1:2.1 Tidal Volume, Exhaled 0.521 L Peak Inspiratory Pressure 21 cmH20 Mean Airway Pressure 10 Resuscitation Bag Available Yes Mask, Obturator, Syringe at bedside Yes Vent Alarms On and Functional Yes Vent Alarm High Pressure 40 cmH20 High Tidal Volume 1.0 Vent Alarm High Rate 40 br/min Vent Alarm Low Minute Volume 3 L/min Vent Alarm High Minute Volume 18 L/min Oxygen Saturation 95 % HME (Heat & Moisture Exchanger) On Cuffed endotracheal tube 8 01/21/2024 Endotracheal Tube Activity: Assessed Endotracheal Tube Placement: Oral, mid ET Tube Insertion cm [place] at Lip: 23 cm Endotracheal Tube Position Confirmation: Breath sounds Endotracheal Tube Cuff Pressure: 28 cm/H2O Endotracheal Tube Cuff Pressure Method: Measured Endotracheal Tube Status: Patent, Secure, manufactured tube alfredo Endotracheal Tube Care: Repositioned 01/27/2024 4:15 EDT Heart Rate Monitored 67 bpm Systolic Blood Pressure Non-Invasive 101 mmHg Diastolic Blood Pressure Non-Invasive 48 mmHg <LLOW Mean Arterial Pressure (NBP) 64 mmHg Oxygen Saturation 97 % 01/27/2024 4:04 EDT WBC 8.7 10^3/mcL RBC 3.41 10^6/mcL LOW Hgb 10.5 G/dL LOW Hct 31.7 % LOW MCV 93.2 fL MCH 30.7 pg MCHC 33.0 G/dL RDW 14.7 % Platelet 89 10^3/mcL LOW MPV 10.5 fL Neutrophil % 90.1 % HI Lymphocyte % 4.7 % LOW Monocyte % 4.8 % Eosinophil % 0.2 % Basophil % 0.2 % Neutrophil, Absolute 7.8 10^3/mcL Lymphocyte, Absolute 0.4 10^3/mcL LOW Monocyte, Absolute 0.4 10^3/mcL Eosinophil, Absolute 0.0 10^3/mcL Basophil, Absolute 0.0 10^3/mcL Glucose Level 238 mg/dL HI Sodium Level 153 mEq/L HI Potassium Level 3.4 mEq/L LOW Chloride 115 mEq/L HI CO2 29 mEq/L Electrolyte Balance 9.0 mEq/L BUN 72.0 mg/dL HI Creatinine Lvl (s) 2.17 mg/dL HI BUN/Creatinine Ratio 33.2 ratio HI Calcium Lvl 7.9 mg/dL LOW Magnesium Lvl 2.1 mg/dL Phosphorus 3.2 mg/dL GFR Non- 30 ml/min/1.73sqm NA GFR 36 ml/min/1.73sqm NA Calcium Ionized 0.97 mmol/L LOW Creatinine Clearance Calc 31.77 mL/min 01/27/2024 4:00 EDT Heart Rate Monitored 66 bpm Systolic Blood Pressure Non-Invasive 95 mmHg Diastolic Blood Pressure Non-Invasive 44 mmHg <LLOW Mean Arterial Pressure (NBP) 59 mmHg Oxygen Saturation 96 % 01/27/2024 3:45 EDT Heart Rate Monitored 70 bpm Systolic Blood Pressure Non-Invasive 127 mmHg Diastolic Blood Pressure Non-Invasive 65 mmHg Mean Arterial Pressure (NBP) 83 mmHg Oxygen Saturation 98 % dexmedeTOMIDine 0.3 mcg/kg/hr mcg Sodium Chloride 0.9% Sodium Chloride 0.9% mL 01/27/2024 3:35 EDT Blood Glucose, Capillary 215 mg/dL HI Temperature Oral 36.9 DegC Heart Rate Monitored 67 bpm Respiratory Rate 28 br/min HI Systolic Blood Pressure Non-Invasive 121 mmHg Diastolic Blood Pressure Non-Invasive 66 mmHg Mean Arterial Pressure (NBP) 81 mmHg Reason For Taking VItal Signs Routine Oral Care ICU Done Eye Care Done Sedation Level +2 Agitated Sedation Level Interventions IV Sedation Increased Primary Pain Location Generalized Primary Pain Intensity 3 Primary Pain Non-Pharma Intervention Rest, Repositioning Primary Pain Nonverbal Response Appears restful Pain Scale Type Behavioral pain scale Monitor Alarms On and Limits Checked Cardiovascular Symptoms Edema Nail Bed Color [place] Capillary Refill < 2 seconds Heart Sounds ICU S1S2 Heart Rhythm Regular Dorsalis Pedis Pulse, Left 1+ [place] Dorsalis Pedis Pulse, Right 1+ [place] Posttibial Pulse, Left 1+ [place] Posttibial Pulse, Right 1+ [place] Radial Pulse, Left 2+ Normal Radial Pulse, Right 2+ Normal Generalized Edema Ratin+ mild/4mm Sclera edema Bilateral Edema Ratin+ trace/2mm Hand edema Bilateral Edema Ratin+ moderate/6mm Central Venous Pressure 10 mmHg HI Cardiac Rhythm Sinus rhythm Monitoring Lead II, V1/MCL1 Alarms On and Functional Yes Heart Rate Alarm Set At - Low 50 Heart Rate Alarm Set At - High 150 NSBP Alarm Low 90 NSBP Alarm High 160 HI Respirations Unlabored Respiratory Pattern Regular Respiratory Pattern Detailed Vented Chest Motion Symmetrical Patient Airway Status Patent with support Breath Sounds Auscultated Anterior only All Lobes Breath Sounds Diminished Suction Method Endotracheal Cough Strong Suction Device Inline suctioning Sputum Amount Scant Sputum Color Clear Sputum Consistency Frothy Ventilator Mode (A/C) Assist/Control Ventilation Ventilator Frequency, Mandatory 24 br/min Tidal Volume, Delivered 0.500 L Positive End Expiratory Pressure 5 cmH20 FiO2 50 % Vent FiO2 50 % Tidal Volume, Exhaled 0.554 L Resuscitation Bag Available Yes Vent Alarms On and Functional Yes Oxygen Therapy Ventilator Oxygen Saturation 94 % Tracheal Position Midline Cuffed endotracheal tube 8 01/21/2024 Endotracheal Tube Activity: Assessed Endotracheal Tube Placement: Oral, right ET Tube Insertion cm [place] at Lip: 23 cm Endotracheal Tube Position Confirmation: Breath sounds Endotracheal Tube Status: Patent, Secure, manufactured tube alfredo Abdomen Description Distended Abdomen Palpation Semi-firm Bowel Continence No bowel movement Bowel Sounds All Quadrants Hypoactive Nasogastric (NG) Nostril, left Gastrointestinal Tube Activity: Assessed Enteral Tube Insertion cm [place] at Nare: 78 cm GI Tube Method of Drainage: Medium Intermittent Suction Gastric Output Description: Bile Gastrointestinal Tube Care: Oral care, Secured Gastrointestinal Tube Site Condition: No complications GI Tube Placement Confirmation: Aspiration Urinary Elimination Urinary catheter draining Urine Color Yellow Urine Description Clear Perineum Intact Urinary Elimination Devices Indwelling catheter Urethral Indwelling/Continuous 16 Fr 01/21/2024 Urinary Catheter Indication: ICU Patient-Hemodynamic instability Urinary Catheter Activity: Assessed Urinary Catheter Secured: Securement device on Urinary Catheter Drainage System: Dependent drainage bag Urinary Catheter Site Condition: No complications Facial Movement Symmetric resting/crying All Extremity Description Normal for ethnicity Skin Temperature Warm Temperature All Extremities Warm Skin Description Normal for ethnicity Skin Integrity Not intact Skin Turgor Non-Elastic Mucous Membrane Color [place] Mucous Membrane Description Dry Skin Color General Usual for ethnicity Skin Moisture General Dry Abdomen Anterior Skin Abnormality Type: Surgical incision Incision, Wound Dressing/Activity: Assessed Incision, Wound Dressing Assessment: Clean, Dry, Intact Incision, Wound Dressing: Vacuum assisted closure Negative Pressure Wound SettinmmHg Incision, Wound Surrounding Tissue: Erythema Wound Status: No complications Abdomen Left Lateral Skin Abnormality Type: Tear Incision, Wound Dressing/Activity: Assessed Incision, Wound Dressing Assessment: Clean, Dry, Intact Incision, Wound Dressing: Band-Aid Wound Status: No complications Luke-Barillas # 1 Abdomen Right Surgical Drain, Tube Activity: Assessed Surgical Drain, Tube Care: [place] collapsed Surgical Drain Site Condition: No complications Surgical Drain, Tube Dressing Condition: Clean, Dry, Intact Surgical Drain, Tube Dressing/Activity: Gauze Surgical Drain, Tube Drainage Method: Compression Surgical Drain, Tube - Tube Descr: Serous Luke-Barillas # 2 Abdomen Right Surgical Drain, Tube Activity: Assessed Surgical Drain, Tube Care: [place] collapsed Surgical Drain Site Condition: No complications Surgical Drain, Tube Dressing Condition: Clean, Dry, Intact Surgical Drain, Tube Dressing/Activity: Gauze Surgical Drain, Tube Drainage Method: Compression Surgical Drain, Tube - Tube Descr: Serous Luke-Barlilas # 3 Abdomen Right Surgical Drain, Tube Activity: Assessed Surgical Drain, Tube Care: [place] collapsed Surgical Drain Site Condition: No complications Surgical Drain, Tube Dressing Condition: Clean, Dry, Intact Surgical Drain, Tube Dressing/Activity: Gauze (Modified) Surgical Drain, Tube Drainage Method: Compression Surgical Drain, Tube - Tube Descr: Serous Luke-Barillas # 4 Abdomen Left Surgical Drain, Tube Activity: Assessed Surgical Drain, Tube Care: [place] collapsed Surgical Drain Site Condition: No complications Surgical Drain, Tube Dressing Condition: Clean, Dry, Intact Surgical Drain, Tube Dressing/Activity: Gauze Surgical Drain, Tube Drainage Method: Compression Surgical Drain, Tube - Tube Descr: Serous Luke-Barillas Left Surgical Drain, Tube Activity: Assessed Surgical Drain, Tube Care: [place] collapsed Surgical Drain Site Condition: No complications Surgical Drain, Tube Dressing Condition: Clean, Dry, Intact Surgical Drain, Tube Dressing/Activity: Gauze Surgical Drain, Tube Drainage Method: Compression Surgical Drain, Tube - Tube Descr: Serous Continuous IV Infusions TPN @ 40 and D5LR@35 Triple Lumen Internal jugular vein Left 01/22/2024 Central IV Activity: Assessed Central IV Number of Lumens: Triple Central IV Patency Proximal Port: Flushes easily, Continuous infusion Central IV Patency Distal Port: Flushes easily, Continuous infusion, Good blood return Central IV Patency Medial Port: Flushes easily, Continuous infusion, Good blood return Central IV Dressing Condition: Clean, Dry, Intact Central IV Dressing / Activity: CHG gel pad all-in-one dressing Central IV Line Care: Alcohol port cap(s) in place Central IV Site Condition: No complications Central IV Equipment: IV Pump Central IV CVP Line Status: Accurate, optimally damped Central IV CVP Line Care: Catheter position corrected/withdrawn, Correct catheter position confirmed, Square Wave Test, Leveled, zeroed, calibrated Antecubital Right 01/21/2024 20 gauge Peripheral IV Activity: Assessed Peripheral IV Dressing Condition: Clean, Dry, Intact Peripheral IV Dressing Activity: Transparent dressing Peripheral IV Line Status/Patency: Flushes easily Peripheral IV Line Care: Alcohol port cap(s) in place Peripheral IV Site Condition: No complications Peripheral IV Equipment: PRN Adaptor Neurological Language Intubated or other physical barrier Gait Unable to assess Extremity Movement Equal Characteristics of Communication Unable to speak, due to vent Characteristics of Speech Unable to assess Facial Symmetry Symmetric Level of Consciousness Arousable with minimal stimulation Eye Opening Response [place] Spontaneously Best Motor Response [place] Obeys simple commands Best Verbal Response Nathan None [place] Coma Score 11 GALILEA Yes Left Pupil Description Regular Right Pupil Description Regular Left Pupil Reaction Brisk Right Pupil Reaction Brisk Pupil Size, Left 3 mm Pupil Size, Right 3 mm Strength All Extremities Weak Left Upper Extremity Sensation Intact Right Upper Extremity Sensation Intact Left Lower Extremity Sensation Intact Right Lower Extremity Sensation Intact CN V Facial Sensation Corneal reflex present CN VII Facial Expression and Symmetry Facial movement symmetrical CN IX, X Swallowing, Gag Reflex Gag reflex present Affect/Behavior Impulsive Orientation Follows simple commands Soft limb holders (Cloth) Wrist, bilateral Restraint Technique: Non Violent Restraint Restraint Activity Type: Continue restraint, same episode Behavior Requiring Non Violent Restraint Attempts to remove medical management devices Type of Medical Devices: Monitoring equipment, Tubes/drains, IV/arterial access, Airway management equipment Rationale for Restraint: Attempting to remove devices, despite current restraints Range of Motion: Repositioned Restraint Skin Assessment: Skin intact, Pulses intact Restraint Nutrition/Hydration: IV fluid Restraint Hygiene/Elimination: Urinary catheter Other Standard Safety: ID band check Bed Standard Safety: Bed in low position, Upper/Half-length side rails up, Wheels locked, HOB elevated Restraint DC Readiness Attempts: Enhanced observation, Environmental changes, Pain management, Postitioning/Turning, Reality orientation Restraint DC Intervention Status: Intervention attempted, not successful Right lateral 16 [place] Chest Tube Activity: Assess Chest Tube Connectivity: Water-Seal 20 cm suction Chest Tube Water Seal Chamber Desc: Absence of Bubbling Chest Tube Interventions: Clamps at bedside Chest Tube Drainage Description: Serosanguineous Chest Tube Dressing Condition: Clean, Dry, Intact Chest Tube Dressing: Occlusive dressing Orientation Assessment Unable to evaluate Positioning Repositioned left side Activity Status ADL Resting Beds/Devices low air loss bed Assistive Equipment boot(s) on Activity Assistance Maximum assistance Sequential Compression Device bilateral knee high applied/on Oral Care Oral care protocol Skin Care Preventative Intervention(s) heel(s)s elevated Standard Safety ID band on, Call device within reach, Bed in low position, Wheels locked, Upper/Half-Length side-rails up High Risk Safety Room check performed Special Call Device Unable to use call device Demonstrates Correct Call Light Use No dexmedeTOMIDine 0.2 mcg/kg/hr mcg insulin regular 5.5 unit(s)/hr unit(s) norepinephrine 1 mcg/min mg NS Premix Diluent NS Premix Diluent mL NS Premix Diluent NS Premix Diluent mL Sodium Chloride 0.9% Sodium Chloride 0.9% mL Degrees Head of Bed Elevated 30 01/27/2024 3:30 EDT Dextrose 5% in Lact Ringers Injection Dextrose 5% in Lact Ringers Injection mL 01/27/2024 3:22 EDT Cardiac Rhythm Sinus rhythm Monitoring Lead II, V1/MCL1 NC Interval 0.15 second(s) QRS Duration 0.09 second(s) QT Interval 0.41 second(s) QTc Interval 0.44 second(s) 01/27/2024 3:19 EDT Apical Heart Rate Not Done: Not Appropriate at this Time (Not Done) metoprolol Not Done: Not Appropriate at this Time (Not Done) 01/27/2024 3:10 EDT Heart Rate Monitored 65 bpm Systolic Blood Pressure Non-Invasive 95 mmHg Diastolic Blood Pressure Non-Invasive 51 mmHg LOW Mean Arterial Pressure (NBP) 65 mmHg Oxygen Saturation 94 % norepinephrine 3 mcg/min mg NS Premix Diluent NS Premix Diluent mL 01/27/2024 2:50 EDT Heart Rate Monitored 71 bpm Respiratory Rate 28 br/min HI Systolic Blood Pressure Non-Invasive 106 mmHg Diastolic Blood Pressure Non-Invasive 79 mmHg Mean Arterial Pressure (NBP) 73 mmHg Reason For Taking VItal Signs Routine Oxygen Saturation 95 % 01/27/2024 2:43 EDT insulin regular Begin Bag 1 mL unit(s) NS Premix Diluent Begin Bag 100 mL mL 01/27/2024 2:40 EDT Blood Glucose, Capillary 219 mg/dL HI Heart Rate Monitored 68 bpm Systolic Blood Pressure Non-Invasive 75 mmHg LOW Diastolic Blood Pressure Non-Invasive 46 mmHg <LLOW Mean Arterial Pressure (NBP) 55 mmHg Reason For Taking VItal Signs Routine Oxygen Saturation 94 % dexmedeTOMIDine 0.2 mcg/kg/hr mcg norepinephrine 3 mcg/min mg NS Premix Diluent NS Premix Diluent mL Sodium Chloride 0.9% Sodium Chloride 0.9% mL 01/27/2024 2:35 EDT heparin 5,000 unit(s) unit(s) Dextrose 5% in Lact Ringers Injection Begin Bag 1,000 mL mL 01/27/2024 2:30 EDT Soft limb holders (Cloth) Wrist, bilateral Restraint Technique: Non Violent Restraint Restraint Activity Type: Continue restraint, same episode Behavior Requiring Non Violent Restraint Attempts to remove medical management devices Type of Medical Devices: Monitoring equipment, Tubes/drains, IV/arterial access, Airway management equipment Rationale for Restraint: Attempting to remove devices, despite current restraints Range of Motion: Repositioned Restraint Skin Assessment: Skin intact, Pulses intact Restraint Nutrition/Hydration: IV fluid Restraint Hygiene/Elimination: Urinary catheter Other Standard Safety: Call device within reach, ID band check, Allergy Band on, Night light Bed Standard Safety: Bed alert on, Bed in low position, Upper/Half-length side rails up, Wheels locked, HOB elevated Restraint DC Readiness Attempts: Pain management, Postitioning/Turning, Reality orientation Restraint DC Intervention Status: Intervention attempted, not successful 01/27/2024 2:19 EDT Heart Rate Monitored 72 bpm Systolic Blood Pressure Non-Invasive 99 mmHg Diastolic Blood Pressure Non-Invasive 47 mmHg <LLOW Mean Arterial Pressure (NBP) 63 mmHg Reason For Taking VItal Signs Routine Oxygen Saturation 92 % LOW 01/27/2024 1:30 EDT Heart Rate Monitored 75 bpm Systolic Blood Pressure Non-Invasive 99 mmHg Diastolic Blood Pressure Non-Invasive 56 mmHg LOW Mean Arterial Pressure (NBP) 69 mmHg Reason For Taking VItal Signs Routine Oxygen Saturation 95 % CHG Preoperative Wash/Wipe Daily CHG bath Bed Bath Maximum assistance Oral Care Oral care protocol Skin Care Done Skin Care Product Applied CHG bath Skin Care Preventative Intervention(s) heel(s)s elevated Lorenza Care Maximum assistance Linen Change Done 01/27/2024 1:16 EDT Blood Glucose, Capillary 257 mg/dL HI Blood Glucose Testing Reason Routine Heart Rate Monitored 77 bpm Respiratory Rate 29 br/min HI Systolic Blood Pressure Non-Invasive 116 mmHg Diastolic Blood Pressure Non-Invasive 55 mmHg LOW Mean Arterial Pressure (NBP) 71 mmHg Blood Pressure Method Automatic Blood Pressure Location Left arm Reason For Taking VItal Signs Routine Oral Care ICU Done Eye Care Done Sedation Level 0 Alert and Calm Sedation Level Interventions Calm Primary Pain Intensity 3 Primary Pain Nonverbal Response Appears restful Pain Scale Type Behavioral pain scale Monitor Alarms On and Limits Checked Nail Bed Color [place] Capillary Refill < 2 seconds Heart Sounds ICU S1S2 Heart Rhythm Regular Dorsalis Pedis Pulse, Left 1+ Thready Dorsalis Pedis Pulse, Right 1+ Thready Posttibial Pulse, Left 1+ [place] Posttibial Pulse, Right 1+ Thready Radial Pulse, Left 2+ Normal Radial Pulse, Right 2+ Normal Cardiac Rhythm Sinus rhythm Monitoring Lead II, V1/MCL1 Alarms On and Functional Yes Respirations Unlabored Respiratory Pattern Regular Respiratory Pattern Detailed Vented Chest Motion Symmetrical Patient Airway Status Patent with support Breath Sounds Auscultated Anterior only All Lobes Breath Sounds Clear, Diminished Suction Method Endotracheal Cough Strong Suction Device Inline suctioning Sputum Amount Scant Sputum Color Cream Sputum Consistency Thick Ventilator Mode (A/C) Assist/Control Ventilation Ventilator Frequency, Mandatory 24 br/min Tidal Volume, Delivered 0.500 L Positive End Expiratory Pressure 5 cmH20 FiO2 50 % Vent FiO2 50 % Tidal Volume, Exhaled 0.506 L Resuscitation Bag Available Yes Vent Alarms On and Functional Yes Oxygen Therapy Ventilator Oxygen Saturation 93 % Tracheal Position Midline Cuffed endotracheal tube 8 01/21/2024 Endotracheal Tube Activity: Assessed Endotracheal Tube Placement: Oral, right ET Tube Insertion cm [place] at Lip: 23 cm Endotracheal Tube Position Confirmation: Breath sounds Endotracheal Tube Status: Patent, Secure, manufactured tube alfredo Endotracheal Tube Care: Oral care Abdomen Description Distended Abdomen Palpation Semi-firm Stool Color Brown Stool Description Incontinent, Medium amount, Loose Bowel Continence Incontinent Bowel Sounds All Quadrants Hypoactive Nasogastric (NG) Nostril, left Gastrointestinal Tube Activity: Assessed Enteral Tube Insertion cm [place] at Nare: 78 cm GI Tube Method of Drainage: Medium Intermittent Suction Gastric Output Description: Bile Gastrointestinal Tube Care: Oral care Gastrointestinal Tube Dsg Condition: Intact Gastrointestinal Tube Site Condition: No complications Urinary Elimination Urinary catheter draining Urinary Elimination Devices Indwelling catheter Urethral Indwelling/Continuous 16 Fr 01/21/2024 Urinary Catheter Activity: Assessed Urinary Catheter Secured: Securement device on Urinary Catheter Drainage System: Dependent drainage bag Urinary Catheter Site Condition: No complications Facial Movement Symmetric resting/crying All Extremity Description Normal for ethnicity Skin Temperature Warm Temperature All Extremities Warm Skin Description Normal for ethnicity Skin Integrity Not intact Skin Turgor Non-Elastic Mucous Membrane Color [place] Mucous Membrane Description Dry Skin Color General Usual for ethnicity Skin Moisture General Dry Abdomen Anterior Skin Abnormality Type: Surgical incision Incision, Wound Dressing/Activity: Assessed Incision, Wound Dressing Assessment: Clean, Dry, Intact Incision, Wound Dressing: Vacuum assisted closure Negative Pressure Wound SettinmmHg Incision, Wound Surrounding Tissue: Erythema Wound Status: Unchanged Abdomen Left Lateral Skin Abnormality Type: Tear Skin Abnormality Color: [place] Incision, Wound Dressing/Activity: Dressing applied Incision, Wound Dressing Assessment: Clean, Dry, Intact Incision, Wound Dressing: Band-Aid Wound Exudate Amount: None Wound Status: No complications Iv[place] # 1 Abdomen Right Surgical Drain, Tube Activity: Assessed Surgical Drain Site Condition: No complications Luke-Eran # 2 Abdomen Right Surgical Drain, Tube Activity: Assessed Surgical Drain Site Condition: No complications Ivanna # 3 Abdomen Right Surgical Drain, Tube Activity: Assessed Surgical Drain Site Condition: No complications Luke-Barillas # 4 Abdomen Left Surgical Drain, Tube Activity: Assessed Surgical Drain Site Condition: No complications [place] Left Surgical Drain, Tube Activity: Assessed Surgical Drain Site Condition: No complications Continuous IV Infusions TPN@40, D5LR@35 Triple Lumen Internal jugular vein Left 01/22/2024 Central IV Activity: Assessed Central IV Number of Lumens: Triple Central IV Site Condition: No complications Central IV Equipment: IV Pump Central IV CVP Line Status: Accurate, optimally damped Central IV CVP Line Care: Leveled, zeroed, calibrated Antecubital Right 01/21/2024 20 gauge Peripheral IV Activity: Assessed Peripheral IV Site Condition: No complications Peripheral IV Equipment: PRN Adaptor Neurological Language Intubated or other physical barrier Gait Unable to assess Extremity Movement Equal Characteristics of Communication Unable to speak, due to vent Characteristics of Speech Unable to assess Facial Symmetry Symmetric Level of Consciousness Arousable with minimal stimulation Eye Opening Response [place] Spontaneously Best Motor Response [place] Obeys simple commands Best Verbal Response Nathan None [place] Coma Score 11 GALILEA Yes Strength All Extremities Weak CN V Facial Sensation Corneal reflex present CN VII Facial Expression and Symmetry Facial movement symmetrical CN VIII Hearing Unable to assess CN IX, X Swallowing, Gag Reflex Gag reflex present Affect/Behavior Impulsive Orientation Follows simple commands Right lateral 16 [place] Chest Tube Activity: Assess Chest Tube Connectivity: Water-Seal 20 cm suction Chest Tube Water Seal Chamber Desc: Absence of Bubbling, No fluctuation Chest Tube Interventions: Clamps at bedside Chest Tube Drainage Description: Serosanguineous Chest Tube Dressing Condition: Dry, Intact Chest Tube Dressing: Occlusive dressing Orientation Assessment Unable to evaluate Positioning Repositioned right side Activity Status ADL Lights dimmed, Resting Beds/Devices low air loss bed Assistive Equipment elevated on pillows Activity Assistance Maximum assistance Sequential Compression Device bilateral knee high applied/on Oral Care Oral care protocol Skin Care Preventative Intervention(s) heel(s)s elevated Standard Safety ID band on, Allergy Band on, Call device within reach, Bed in low position, Wheels locked, Upper/Half-Length side-rails up, Phone within reach, personal items within reach, Safety level maintained High Risk Safety Room check performed Special Call Device Unable to use call device Demonstrates Correct Call Light Use No dexmedeTOMIDine 0.3 mcg/kg/hr mcg insulin regular 4.5 unit(s)/hr unit(s) NS Premix Diluent NS Premix Diluent mL Sodium Chloride 0.9% Sodium Chloride 0.9% mL Degrees Head of Bed Elevated 30 Stool Count 1 EA 01/27/2024 0:50 EDT Heart Rate Monitored 83 bpm Systolic Blood Pressure Non-Invasive 138 mmHg Diastolic Blood Pressure Non-Invasive 64 mmHg Mean Arterial Pressure (NBP) 83 mmHg Reason For Taking VItal Signs Routine Central Venous Pressure 19 mmHg HI Cardiac Rhythm Sinus rhythm Monitoring Lead II, V1/MCL1 Oxygen Saturation 94 % 01/27/2024 0:30 EDT Soft limb holders (Cloth) Wrist, bilateral Restraint Technique: Non Violent Restraint Restraint Activity Type: Continue restraint, same episode Behavior Requiring Non Violent Restraint Attempts to remove medical management devices Type of Medical Devices: Monitoring equipment, Tubes/drains, IV/arterial access, Airway management equipment Rationale for Restraint: Attempting to remove devices, despite current restraints Range of Motion: Repositioned Restraint Skin Assessment: Skin intact, Pulses intact Restraint Nutrition/Hydration: IV fluid Restraint Hygiene/Elimination: Urinary catheter Other Standard Safety: Call device within reach, ID band check, Allergy Band on, Night light Bed Standard Safety: Bed alert on, Bed in low position, Upper/Half-length side rails up, Wheels locked, HOB elevated Restraint DC Readiness Attempts: Pain management, Postitioning/Turning, Reality orientation Restraint DC Intervention Status: Intervention attempted, not successful 01/27/2024 0:15 EDT Blood Glucose, Capillary 253 mg/dL HI Blood Glucose Testing Reason Routine Heart Rate Monitored 147 bpm HI Heart Rate Monitored 147 bpm HI Respiratory Rate 24 br/min HI Respiratory Rate 28 br/min HI Systolic Blood Pressure Invasive 82 mmHg LOW Diastolic Blood Pressure Invasive 78 mmHg Mean Arterial Pressure (Line) 79 mmHg Reason For Taking VItal Signs Routine Central Venous Pressure 8 mmHg HI Patient Airway Status Patent with support Breath Sounds Auscultated Anterior only All Lobes Breath Sounds Clear, Diminished Ventilator Mode (A/C) Assist/Control Ventilation Breath Type VC (Volume Control) Ventilator Frequency, Mandatory 24 br/min Tidal Volume, Delivered 0.500 L Positive End Expiratory Pressure 5 cmH20 FiO2 50 % Flow Trigger (range 0.3 - 15 L/min.) 2.0 L/min Inspiratory Time (TI) 0.9 second(s) (Modified) Tube Compensation Off Auto Flow On Ventilator Model Drager V500 Ventilator ID [id number] Vent FiO2 50 % Respiratory Rate Total 28 br/min HI Minute Volume 14.2 L/min Respiratory Rate, Spontaneous 4 br/min Inspiratory to Expiratory (I:E) Ratio 1:2.1 Tidal Volume, Exhaled 0.482 L Peak Inspiratory Pressure 24 cmH20 Plateau Pressure 18 cmH20 Mean Airway Pressure 12 Resuscitation Bag Available Yes Mask, Obturator, Syringe at bedside Yes Vent Alarms On and Functional Yes Vent Alarm High Pressure 40 cmH20 High Tidal Volume 1.0 Vent Alarm High Rate 40 br/min Vent Alarm Low Minute Volume 3 L/min Vent Alarm High Minute Volume 18 L/min Oxygen Saturation 92 % LOW Oxygen Saturation 92 % LOW HME (Heat & Moisture Exchanger) On Cuffed endotracheal tube 8 01/21/2024 Endotracheal Tube Activity: Assessed Endotracheal Tube Placement: Oral, right ET Tube Insertion cm [place] at Lip: 23 cm Endotracheal Tube Position Confirmation: Breath sounds Endotracheal Tube Cuff Pressure Method: Minimum occlusion volume Endotracheal Tube Status: Patent, Secure, manufactured tube alfredo Endotracheal Tube Care: Repositioned Radial artery Left 01/22/2024 Arterial Line Activity: Discontinued Arterial Line Distal Pulses: Palpable Arterial Line Removal: Catheter intact, no resistance Arterial Line Removal Reason: Site change insulin regular 2.5 unit(s)/hr unit(s) NS Premix Diluent NS Premix Diluent mL 01/27/2024 0:09 EDT Dextrose 5% in Lact Ringers Injection Begin Bag 1,000 mL mL 01/27/2024 0:02 EDT Hgb 11.5 G/dL LOW Hct 34.7 % LOW High Sensitivity Troponin I 16 ng/L 01/27/2024 0:00 EDT Heart Rate Monitored 145 bpm HI Respiratory Rate 24 br/min HI Systolic Blood Pressure Non-Invasive 145 mmHg HI Diastolic Blood Pressure Non-Invasive 87 mmHg Mean Arterial Pressure (NBP) 99 mmHg Blood Pressure Method Automatic Blood Pressure Location Left arm Oxygen Saturation 94 % dexmedeTOMIDine 0.3 mcg/kg/hr mcg Sodium Chloride 0.9% Sodium Chloride 0.9% mL . Assessment and Plan [place] [employer] (ASA) physical status classification: Class IV. Anesthetic Preoperative Plan Anesthetic technique: General. Induction: intravenously. Maintenance airway: Oral endotracheal tube. Postoperative pain management: Per surgeon. Risks discussed: nausea, vomiting, headache, sore throat, dental injury, hypotension, allergic reaction, serious complications. Informed consent: signed by daughter. Notes: HTN, hypothyroid, ALICIA with bipap, Hx of atrial fibrillation, BMI 40.21, s/p umbicial hernia repair and exploratory laparatomies, 2 shots of ETOH daily, peritonitis, acute respiratory failure, Jehovah witness. Beta Josefina: Beta Josefina Taken Within 24 Hrs: Yes. Digitally Signed by SANDER WHITE MD on 01/28/2024 11:03 AM [facility] Evaluation + Plan note Future Appointments Appointment Date:02/09/2021 02:45:00 PM Scheduled Provider:LEV HOPE MD Location:[facility] Appointment Type:ENDO OV Appointment Date:04/17/2021 03:40:00 PM Scheduled Provider:KELLEY HERNANDEZ APRN - UPHOLSTERY INSTRUCTOR Location:[facility] Appointment Type:PC OV Follow Up Future Scheduled Tests Laboratory* Thyroid Stimulating Hormone 10/10/20 * Thyroid Stimulating Hormone 04/16/21 * Free T4 10/10/20 * Free T4 04/16/21 * A1C Hemoglobin 10/10/20 * A1C Hemoglobin 04/16/21 * Complete Blood Count 10/10/20 * Complete Blood Count 04/16/21 * Lipid Profile 10/10/20 * Lipid Profile 04/16/21 * Vitamin D Level 10/10/20 * Vitamin D Level 04/16/21 * Complete Metabolic Panel 10/10/20 * Complete Metabolic Panel 04/16/21 Radiology* US Abdomen Limited 09/08/20 * XR Chest 2 Views (PA & Lateral) 07/06/20 [facility] Evaluation + Plan note Future Appointments Appointment Date:04/17/2021 03:40:00 PM Scheduled Provider:KELLEY HERNANDEZ APRN - UPHOLSTERY INSTRUCTOR Location:[facility] Appointment Type:PC OV Follow Up Diagnostic Tests Pending * Respiratory ID Panel with COVID-19 by PCR 02/11/21 Future Scheduled Tests Laboratory* Thyroid Stimulating Hormone 10/10/20 * Thyroid Stimulating Hormone 04/16/21 * Free T4 10/10/20 * Free T4 04/16/21 * A1C Hemoglobin 10/10/20 * A1C Hemoglobin 04/16/21 * Complete Blood Count 10/10/20 * Complete Blood Count 04/16/21 * Lipid Profile 10/10/20 * Lipid Profile 04/16/21 * Vitamin D Level 10/10/20 * Vitamin D Level 04/16/21 * Complete Metabolic Panel 10/10/20 * Complete Metabolic Panel 04/16/21 Radiology* US Abdomen Limited 09/08/20 * XR Chest 2 Views (PA & Lateral) 07/06/20 [facility] Evaluation + Plan note Future Appointments Appointment Date:04/25/2021 02:30:00 PM Scheduled Provider:LEV HOPE MD Location:[facility] Appointment Type:ENDO OV Appointment Date:05/04/2021 03:40:00 PM Scheduled Provider:KELLEY HERNANDEZ PICK UP WORKER - UPHOLSTERY INSTRUCTOR Location:[facility] Appointment Type:PC OV Follow Up Future Scheduled Tests Laboratory* Thyroid Stimulating Hormone 10/10/20 * Free T4 10/10/20 * A1C Hemoglobin 10/10/20 * Complete Blood Count 10/10/20 * Lipid Profile 10/10/20 * Vitamin D Level 10/10/20 * Complete Metabolic Panel 10/10/20 Radiology* US Abdomen Limited 09/08/20 * XR Chest 2 Views (PA & Lateral) 07/06/20 [facility] Evaluation + Plan note Future Appointments Appointment Date:10/24/2021 02:30:00 PM Scheduled Provider:LEV HOPE MD Location:[facility] Appointment Type:ENDO OV Appointment Date:11/02/2021 03:40:00 PM Scheduled Provider:KELLEY HERNANDEZ PICK UP WORKER - UPHOLSTERY INSTRUCTOR Location:[facility] Appointment Type:PC OV Follow Up Future Scheduled Tests Laboratory* Prostate Specific Antigen 11/01/21 * Thyroid Stimulating Hormone 10/10/20 * Thyroid Stimulating Hormone 11/01/21 * Free T4 10/10/20 * Free T4 11/01/21 * A1C Hemoglobin 10/10/20 * A1C Hemoglobin 11/01/21 * Complete Blood Count 10/10/20 * Complete Blood Count 11/01/21 * Lipid Profile 10/10/20 * Lipid Profile 11/01/21 * Vitamin D Level 10/10/20 * Vitamin D Level 11/01/21 * Complete Metabolic Panel 10/10/20 * Complete Metabolic Panel 11/01/21 [facility] Evaluation + Plan note Future Appointments Appointment Date:02/15/2022 03:45:00 PM Scheduled Provider:LEV HOPE MD Location:[facility] Appointment Type:ENDO OV Appointment Date:06/04/2022 04:00:00 PM Scheduled Provider:KELLEY HERNANDEZ APRN, CNP Location:[facility] Appointment Type:PC OV Follow Up Future Scheduled Tests Laboratory* Prostate Specific Antigen 05/29/22 * Prostate Specific Antigen 11/01/21 * Thyroid Stimulating Hormone 05/29/22 * Thyroid Stimulating Hormone 05/29/22 * Thyroid Stimulating Hormone 11/01/21 * Free T4 05/29/22 * Free T4 05/29/22 * Free T4 11/01/21 * A1C Hemoglobin 05/29/22 * A1C Hemoglobin 05/29/22 * A1C Hemoglobin 11/01/21 * Complete Blood Count 11/01/21 * Lipid Profile 05/29/22 * Lipid Profile 05/29/22 * Lipid Profile 11/01/21 * Microalbumin Level Urine 05/29/22 * Microalbumin Level Urine 05/29/22 * Vitamin D Level 05/29/22 * Vitamin D Level 11/01/21 * Complete Metabolic Panel 05/29/22 * Complete Metabolic Panel 05/29/22 * Complete Metabolic Panel 11/01/21 [facility] Evaluation + Plan note Future Appointments Appointment Date:06/04/2022 04:00:00 PM Scheduled Provider:KELLEY HERNANDEZ APRN, CNP Location:[facility] Appointment Type:PC OV Follow Up Appointment Date:07/19/2022 03:45:00 PM Scheduled Provider:LEV HOPE MD Location:[facility] Appointment Type:ENDO OV Future Scheduled Tests Laboratory* Prostate Specific Antigen 11/01/21 * Thyroid Stimulating Hormone 05/29/22 * Thyroid Stimulating Hormone 07/16/22 * Thyroid Stimulating Hormone 11/01/21 * Free T4 05/29/22 * Free T4 07/16/22 * Free T4 11/01/21 * A1C Hemoglobin 05/29/22 * A1C Hemoglobin 07/16/22 * A1C Hemoglobin 11/01/21 * Complete Blood Count 11/01/21 * Free T3 07/16/22 * Lipid Profile 05/29/22 * Lipid Profile 11/01/21 * Microalbumin Level Urine 05/29/22 * Microalbumin Level Urine 05/29/22 * Vitamin D Level 07/16/22 * Vitamin D Level 11/01/21 * Complete Metabolic Panel 05/29/22 * Complete Metabolic Panel 07/16/22 * Complete Metabolic Panel 11/01/21 [facility] Evaluation + Plan note Future Appointments Appointment Date:07/19/2022 03:45:00 PM Scheduled Provider:LEV HOPE MD Location:[facility] Appointment Type:ENDO OV Appointment Date:12/06/2022 03:40:00 PM Scheduled Provider:KELLEY HERNANDEZ APRN - UPHOLSTERY INSTRUCTOR Location:[facility] Appointment Type:PC OV Follow Up Future Scheduled Tests Laboratory* Prostate Specific Antigen 11/01/21 * Thyroid Stimulating Hormone 05/29/22 * Thyroid Stimulating Hormone 12/05/22 * Thyroid Stimulating Hormone 09/04/22 * Thyroid Stimulating Hormone 11/01/21 * Free T4 05/29/22 * Free T4 09/04/22 * Free T4 12/05/22 * Free T4 11/01/21 * A1C Hemoglobin 05/29/22 * A1C Hemoglobin 09/04/22 * A1C Hemoglobin 12/05/22 * A1C Hemoglobin 11/01/21 * Complete Blood Count 11/01/21 * Lipid Profile 05/29/22 * Lipid Profile 09/04/22 * Lipid Profile 12/05/22 * Lipid Profile 11/01/21 * Microalbumin Level Urine 05/29/22 * Microalbumin Level Urine 05/29/22 * Microalbumin Level Urine 09/04/22 * Microalbumin Level Urine 12/05/22 * Vitamin D Level 09/04/22 * Vitamin D Level 12/05/22 * Vitamin D Level 11/01/21 * Complete Metabolic Panel 05/29/22 * Complete Metabolic Panel 09/04/22 * Complete Metabolic Panel 12/05/22 * Complete Metabolic Panel 11/01/21 [facility] Evaluation + Plan note Future Appointments Appointment Date:12/13/2022 03:20:00 PM Scheduled Provider:KELLEY HERNANDEZ APRN - UPHOLSTERY INSTRUCTOR Location:[facility] Appointment Type:PC OV Follow Up Appointment Date:01/17/2023 03:30:00 PM Scheduled Provider:LEV HOPE MD Location:[facility] Appointment Type:ENDO OV Future Scheduled Tests Laboratory* Thyroid Stimulating Hormone 01/18/23 * Free T4 01/18/23 * A1C Hemoglobin 01/18/23 * Free T3 01/18/23 * Albumin/Creatinine Ratio, Random Urine 01/18/23 * Complete Metabolic Panel 01/18/23 [facility] Evaluation + Plan note Future Appointments Appointment Date:06/14/2023 03:00:00 PM Scheduled Provider:KELLEY HERNANDEZ APRN, CNP Location:[facility] Appointment Type:PC OV Follow Up Appointment Date:07/25/2023 03:30:00 PM Scheduled Provider:LEV HOPE MD Location:[facility] Appointment Type:ENDO OV Future Scheduled Tests Laboratory* Thyroid Stimulating Hormone 01/18/23 * Thyroid Stimulating Hormone 07/19/23 * Free T4 01/18/23 * Free T4 07/19/23 * A1C Hemoglobin 01/18/23 * A1C Hemoglobin 07/19/23 * Complete Blood Count 07/19/23 * Free T3 01/18/23 * Albumin/Creatinine Ratio, Random Urine 01/18/23 * Albumin/Creatinine Ratio, Random Urine 07/19/23 * Vitamin D Level 07/19/23 * Complete Metabolic Panel 01/18/23 * Complete Metabolic Panel 07/19/23 [facility] Evaluation + Plan note Future Appointments Appointment Date:12/31/2023 03:20:00 PM Scheduled Provider:KELLEY HERNANDEZ APRN, CNP Location:[facility] Appointment Type:PC OV Follow Up Appointment Date:01/28/2024 03:30:00 PM Scheduled Provider:LEV HOPE MD Location:[facility] Appointment Type:ENDO OV Future Scheduled Tests Laboratory* Thyroid Stimulating Hormone 01/18/23 * Thyroid Stimulating Hormone 01/24/24 * Thyroid Stimulating Hormone 07/19/23 * Free T4 01/18/23 * Free T4 01/24/24 * Free T4 07/19/23 * A1C Hemoglobin 01/18/23 * A1C Hemoglobin 01/24/24 * A1C Hemoglobin 07/19/23 * Complete Blood Count 07/19/23 * Free T3 01/18/23 * Albumin/Creatinine Ratio, Random Urine 01/18/23 * Albumin/Creatinine Ratio, Random Urine 01/24/24 * Albumin/Creatinine Ratio, Random Urine 07/19/23 * Vitamin D Level 07/19/23 * Complete Metabolic Panel 01/18/23 * Complete Metabolic Panel 01/24/24 * Complete Metabolic Panel 07/19/23 [facility] Evaluation + Plan note Future Appointments Appointment Date:01/28/2024 03:30:00 PM Scheduled Provider:LEV HOPE MD Location:[facility] Appointment Type:ENDO OV Appointment Date:02/03/2024 03:00:00 PM Scheduled Provider:SALVADOR BOWMAN MD Location:[facility] Appointment Type:GS OV Post Op Appointment Date:06/30/2024 03:20:00 PM Scheduled Provider:KELLEY HERNANDEZ APRN - UPHOLSTERY INSTRUCTOR Location:[facility] Appointment Type:PC OV Follow Up Future Scheduled Tests Laboratory* Prostate Specific Antigen 06/30/24 * Thyroid Stimulating Hormone 06/30/24 * Thyroid Stimulating Hormone 01/18/23 * Thyroid Stimulating Hormone 01/24/24 * Thyroid Stimulating Hormone 07/19/23 * Free T4 06/30/24 * Free T4 01/18/23 * Free T4 01/24/24 * Free T4 07/19/23 * A1C Hemoglobin 06/30/24 * A1C Hemoglobin 01/18/23 * A1C Hemoglobin 01/24/24 * A1C Hemoglobin 07/19/23 * Complete Blood Count 07/19/23 * Free T3 01/18/23 * Lipid Profile 06/30/24 * Albumin/Creatinine Ratio, Random Urine 06/30/24 * Albumin/Creatinine Ratio, Random Urine 01/18/23 * Albumin/Creatinine Ratio, Random Urine 01/24/24 * Albumin/Creatinine Ratio, Random Urine 07/19/23 * Vitamin D Level 06/30/24 * Vitamin D Level 07/19/23 * Complete Metabolic Panel 06/30/24 * Complete Metabolic Panel 01/18/23 * Complete Metabolic Panel 01/24/24 * Complete Metabolic Panel 07/19/23 [facility] Evaluation + Plan note Future Appointments Appointment Date:01/12/2025 09:30:00 AM Scheduled Provider: Location:[facility] Appointment Type:PC Nurse Lab Appointment Date:01/19/2025 10:20:00 AM Scheduled Provider:KELLEY HERNANDEZ APRN, CNP Location:[facility] Appointment Type:PC OV Follow Up Future Scheduled Tests Laboratory* Prostate Specific Antigen 06/30/24 * Thyroid Stimulating Hormone 01/19/25 * Thyroid Stimulating Hormone 06/30/24 * Thyroid Stimulating Hormone 01/24/24 * Thyroid Stimulating Hormone 07/19/23 * Free T4 01/19/25 * Free T4 06/30/24 * Free T4 01/24/24 * Free T4 07/19/23 * A1C Hemoglobin 01/19/25 * A1C Hemoglobin 06/30/24 * A1C Hemoglobin 01/24/24 * A1C Hemoglobin 07/19/23 * Complete Blood Count 01/19/25 * Complete Blood Count 07/19/23 * Free T3 01/19/25 * Lipid Profile 01/19/25 * Lipid Profile 06/30/24 * Albumin/Creatinine Ratio, Random Urine 01/19/25 * Albumin/Creatinine Ratio, Random Urine 06/30/24 * Albumin/Creatinine Ratio, Random Urine 01/24/24 * Albumin/Creatinine Ratio, Random Urine 07/19/23 * Vitamin D Level 06/30/24 * Vitamin D Level 07/19/23 * Complete Metabolic Panel 01/19/25 * Complete Metabolic Panel 06/30/24 * Complete Metabolic Panel 01/24/24 * Complete Metabolic Panel 07/19/23 [facility] Evaluation + Plan note Future Appointments Appointment Date:12/10/2024 11:45:00 AM Scheduled Provider:LEV HOPE MD Location:[facility] Appointment Type:ENDO OV Appointment Date:01/12/2025 09:30:00 AM Scheduled Provider: Location:[facility] Appointment Type:PC Nurse Lab Appointment Date:01/19/2025 10:40:00 AM Scheduled Provider:KELLEY HERNANDEZ APRN, CNP Location:[facility] Appointment Type:PC OV Follow Up Future Scheduled Tests Laboratory* Thyroid Stimulating Hormone 01/19/25 * Free T4 01/19/25 * A1C Hemoglobin 01/19/25 * Complete Blood Count 01/19/25 * Free T3 01/19/25 * Lipid Profile 01/19/25 * Albumin/Creatinine Ratio, Random Urine 01/19/25 * Complete Metabolic Panel 01/19/25 Radiology* MRI Shoulder w/o Contrast Left 10/16/24 * MRI Shoulder w/o Contrast Right 10/16/24 [facility] Evaluation noteNo assessment information available [facility] Work Phone: Evaluation note* Diagnosis Incisional hernia, without obstruction or gangrene- Primary Incisional hernia without mention of obstruction or gangrene documented in this encounter [facility] note* Diagnosis Preoperative examination- Primary Preoperative examination, unspecified Incisional hernia, without obstruction or gangrene Incisional hernia without mention of obstruction or gangrene Abnormal results of liver function studies Nonspecific abnormal results of liver function study Abnormal coagulation profile Preoperative examination Preoperative examination, unspecified Incisional hernia, without obstruction or gangrene Incisional hernia without mention of obstruction or gangrene [facility] Diagnosis Hyperlipidemia, unspecified hyperlipidemia type- Primary Essential hypertension Unspecified essential hypertension ALICIA on CPAP Obstructive sleep apnea (adult) (pediatric) Gastrostomy present (HCC) Type 2 diabetes mellitus with other specified complication, unspecified whether buttermaker helper insulin use (HCC) Hypothyroidism, unspecified type Anemia, unspecified type Major depressive disorder with single episode, remission status unspecified Anxiety disorder, unspecified type History of basal cell carcinoma (BCC) History of tracheostomy Tracheostomy status IFG (impaired fasting glucose) Impaired fasting glucose Heart murmur Undiagnosed cardiac murmurs Alcohol use Preoperative examination Preoperative examination, unspecified Incisional hernia, without obstruction or gangrene Incisional hernia without mention of obstruction or gangrene documented in this encounter [facility] course Narrative No data available for this section [facility] Hospital Discharge instructions No data available for this section [facility] Progress note No data available for this section [facility] Reason for referral (narrative)No reason for referral [facility] Work Phone: Chief Complaint and Reason for Visit Chief Complaint fall Chief Complaint Admit Date Peg Tube Removal June 18, 2024 2:0 3pm WOUND July 08, 2024 10:4 5am WOUND July 13, 2024 9:3 2am POSSIBLE RECONSTRUCTION OF ABDOMINAL WOU ND July 16, 2024 9:21am WOUND July 20, 2024 8:3 0am WOUND July 20, 2024 9:5 7am WOUND August 10, 2024 7:53a m WOUND August 10, 2024 8:04a m Reason for Visit Admit Date PEG (percutaneous endoscopic gastrostomy) adjustment/replacement/removal June 18, 2024 2:03pm Nonhealing surgical wound July 16 9:21am Diabetes mellitus with hyperglycemia Jun 8:30am Hernia, ventral July 20, 2024 8:3 0am Hypergranulation July 20, 2024 8:3 0am Nonhealing surgical wound July 20 8:30am Hernia, ventral August 10, 2024 7:53a m Nonhealing surgical wound August 10, 2024 7:53am Chief Complaint Admit Date Peg Tube Removal June 18, 2024 2:0 3pm WOUND July 08, 2024 10:4 5am WOUND July 13, 2024 9:3 2am POSSIBLE RECONSTRUCTION OF ABDOMINAL WOU ND July 16, 2024 9:21am WOUND July 20, 2024 8:3 0am WOUND July 20, 2024 9:5 7am WOUND August 10, 2024 7:53a m WOUND August 10, 2024 8:04a m WOUND August 31, 2024 11:35 am WOUND September 14, 2024 8:15 am WOUND September 14, 2024 9:30 am Reason for Visit Admit Date PEG (percutaneous endoscopic gastrostomy) adjustment/replacement/removal June 18, 2024 2:03pm Nonhealing surgical wound July 16 9:21am Diabetes mellitus with hyperglycemia Jun 8:30am Hernia, ventral July 20, 2024 8:3 0am Hypergranulation July 20, 2024 8:3 0am Nonhealing surgical wound July 20 8:30am Hernia, ventral August 10, 2024 7:53a m Nonhealing surgical wound August 10, 2024 7:53am Hernia, ventral September 14, 2024 8:15 am Nonhealing surgical wound September 14 8:15am Chief Complaint Admit Date WOUND July 08, 2024 10:4 5am WOUND July 13, 2024 9:3 2am POSSIBLE RECONSTRUCTION OF ABDOMINAL WOU ND July 16, 2024 9:21am WOUND July 20, 2024 8:3 0am WOUND July 20, 2024 9:5 7am WOUND August 10, 2024 7:53a m WOUND August 10, 2024 8:04a m WOUND August 31, 2024 11:35 am WOUND September 14, 2024 8:15 am WOUND September 14, 2024 9:30 am WOUND October 12, 2024 8:32 am WOUND October 12, 2024 9:29 am Reason for Visit Admit Date Nonhealing surgical wound July 16 9:21am Diabetes mellitus with hyperglycemia Apr 2024 8:30am Hernia, ventral July 20, 2024 8:3 0am Hypergranulation July 20, 2024 8:3 0am Nonhealing surgical wound July 20 8:30am Hernia, ventral August 10, 2024 7:53a m Nonhealing surgical wound August 10, 2024 7:53am Hernia, ventral September 14, 2024 8:15 am Nonhealing surgical wound September 14 8:15am Hernia, ventral October 12, 2024 8:32 am Nonhealing surgical wound October 12 8:32am Chief Complaint Admit Date WOUND August 10, 2024 7:53a m WOUND August 10, 2024 8:04a m WOUND August 31, 2024 11:35 am WOUND September 14, 2024 8:15 am WOUND September 14, 2024 9:30 am WOUND October 12, 2024 8:32 am WOUND October 12, 2024 9:29 am WOUND November 09, 2024 8: 32am WOUND November 09, 2024 1: 13pm Reason for Visit Admit Date Hernia, ventral August 10, 2024 7:53a m Nonhealing surgical wound August 10, 2024 7:53am Hernia, ventral September 14, 2024 8:15 am Nonhealing surgical wound September 14 8:15am Hernia, ventral October 12, 2024 8:32 am Nonhealing surgical wound October 12 8:32am Nonhealing surgical wound November 09 025 8:32am Advance Directives No Advanced Directives Records Found Advance Directive Response Recorded Date/ Time Living Will No October 13, 2022 11:29am Power of Kier Hand No October 13 11:29am Summary Purpose Family History No Family History Records Found Additional Source Comments Care Team (unrecognized sect ion and content) Care Team Personnel Name: KELLEY HERNANDEZ APRN - UPHOLSTERY INSTRUCTOR Position: P4 Advanced Practice Nurse Med Service: Employed Provider Member Role: Primary Care Physician Address: Address: [address] [place] [address] Care Team Related Persons Name: JESSICA CORREA Address: [address] Care Team Personnel Name: KELLEY HERNANDEZ PICK UP WORKER - UPHOLSTERY INSTRUCTOR Position: P4 Advanced Practice Nurse Member Role: Primary Care Physician Address: Address: [address] [place] [address] Care Team Related Persons Name: JESSICA CORREA Address: [place] [id number] [place] [address] Care Team Personnel Name: KELLEY HERNANDEZ PICK UP WORKER - UPHOLSTERY INSTRUCTOR Position: P4 Advanced Fisher Purse Seine Member Role: Primary Care Physician Address: Address: [address] [place] [address] Care Team Related Persons Name: JESSICA CORREA Address: [place] [id number] [place] [address] Patient Care team informatio n (unrecognized section and content) Team Status: Active Member Role Status Dates Kelley Hernandez BIODIESEL PRODUCTION TECHNICIAN, BIODIESEL PRODUCTION TECHNICIAN-C Primary Care Provider Active Team Status: Inactive Member Role Status Dates Kelley Hernandez BIODIESEL PRODUCTION TECHNICIAN, BIODIESEL PRODUCTION TECHNICIAN-C Primary Care Provider Active Gorge Goins MD Emergency Provider Active Team Status: Inactive Member Role Status Dates Dr. Bhavik Jameson MD Primary Care Provider Active Start: June 18, 2024 End: June 18, 2024 Dr. Bhavik Jameson MD Referring Provider Active Start: June 18, 2024 End: June 18, 2024 Patty Sanders NP-C Attending Provider Active S tart: June 18, 2024 End: June 18, 2024 Team Status: Active Member Role Status Dates Dr. Bhavik Jameson MD Referring Provider Active Start: July 08, 2024 Nga Canela BIODIESEL PRODUCTION TECHNICIAN, BIODIESEL PRODUCTION TECHNICIAN-C Attending Provider Active Start: July 08, 2024 Nga Canela BIODIESEL PRODUCTION TECHNICIAN, BIODIESEL PRODUCTION TECHNICIAN-C Other Provider Active S tart: July 08, 2024 Kelley Hernandez BIODIESEL PRODUCTION TECHNICIAN, BIODIESEL PRODUCTION TECHNICIAN-C Primary Care Provider Active Start: July 08, 2024 Team Status: Active Member Role Status Dates Dr. Bhavik Jameson MD Referring Provider Active Start: July 13, 2024 Nga Canela BIODIESEL PRODUCTION TECHNICIAN, BIODIESEL PRODUCTION TECHNICIAN-C Other Provider Active S tart: July 13, 2024 Kelley Hernandez BIODIESEL PRODUCTION TECHNICIAN, BIODIESEL PRODUCTION TECHNICIAN-C Primary Care Provider Active Start: July 13, 2024 Dr. Efrain Hurtado MD Attending Provider Active Start: July 13, 2024 Team Status: Inactive Member Role Status Dates Kelley Hernandez BIODIESEL PRODUCTION TECHNICIAN, BIODIESEL PRODUCTION TECHNICIAN-C Primary Care Provider Active Start: July 16, 2024 End: July 16, 2024 Dr. Yordy Renteria MD Attending Provider Active Start: July 16, 2024 End: July 16, 2024 Dr. Efrain Hurtado MD Referring Provider Active Start: July 16, 2024 End: July 16, 2024 Team Status: Inactive Member Role Status Dates Dr. Bhavik Jameson MD Referring Provider Active Start: July 20, 2024 End: July 29, 2024 Nga Canela BIODIESEL PRODUCTION TECHNICIAN, BIODIESEL PRODUCTION TECHNICIAN-C Attending Provider Active Start: July 20, 2024 End: July 29, 2024 Kelley Hernandez BIODIESEL PRODUCTION TECHNICIAN, BIODIESEL PRODUCTION TECHNICIAN-C Primary Care Provider Active Start: July 20, 2024 End: July 29, 2024 Team Status: Active Member Role Status Dates Dr. Bhavik Jameson MD Referring Provider Active Start: July 20, 2024 Nga Canela NP, BIODIESEL PRODUCTION TECHNICIAN-C Other Provider Active S tart: July 20, 2024 Kelley Hernandez BIODIESEL PRODUCTION TECHNICIAN, BIODIESEL PRODUCTION TECHNICIAN-C Primary Care Provider Active Start: July 20, 2024 Dr. Efrain Hurtado MD Attending Provider Active Start: July 20, 2024 Team Status: Inactive Member Role Status Dates Dr. Bhavik Jameson MD Referring Provider Active Start: August 10, 2024 End: August 29, 2024 Kelley Hernandez BIODIESEL PRODUCTION TECHNICIAN, BIODIESEL PRODUCTION TECHNICIAN-C Primary Care Provider Active Start: August 10, 2024 End: August 29, 2024 Dr. Efrain Hurtado MD Attending Provider Active Start: August 10, 2024 End: August 29, 2024 Team Status: Active Member Role Status Dates Dr. Bhavik Jameson MD Referring Provider Active Start: August 10, 2024 Kelley Hernandez BIODIESEL PRODUCTION TECHNICIAN, BIODIESEL PRODUCTION TECHNICIAN-C Primary Care Provider Active Start: August 10, 2024 Dr. Efrain Hurtado MD Attending Provider Active Start: August 10, 2024 Dr. Efrain Hurtado MD Other Provider Active Star t: August 10, 2024 Team Status: Active Member Role/Relationship Status Dates Kelley Hernandez BIODIESEL PRODUCTION TECHNICIAN, BIODIESEL PRODUCTION TECHNICIAN-C Primary Care Provider Active Team Status: Inactive Member Role/Relationship Status Dates Dr. Bhavik Jameson MD Primary Care Provider Active Start: June 18, 2024 End: June 18, 2024 Dr. Bhavik Jameson MD Referring Provider Active Start: June 18, 2024 End: June 18, 2024 Patty Sanders NP-C Attending Provider Active S tart: June 18, 2024 End: June 18, 2024 Team Status: Active Member Role/Relationship Status Dates Dr. Bhavik Jameson MD Referring Provider Active Start: July 08, 2024 Nga Canela BIODIESEL PRODUCTION TECHNICIAN, BIODIESEL PRODUCTION TECHNICIAN-C Attending Provider Active Start: July 08, 2024 Nga Canela BIODIESEL PRODUCTION TECHNICIAN, BIODIESEL PRODUCTION TECHNICIAN-C Other Provider Active S tart: July 08, 2024 Kelley Hernandez BIODIESEL PRODUCTION TECHNICIAN, BIODIESEL PRODUCTION TECHNICIAN-C Primary Care Provider Active Start: July 08, 2024 Team Status: Active Member Role/Relationship Status Dates Dr. Bhavik Jameson MD Referring Provider Active Start: July 13, 2024 Nga Canela BIODIESEL PRODUCTION TECHNICIAN, BIODIESEL PRODUCTION TECHNICIAN-C Other Provider Active S tart: July 13, 2024 Kelley Hernandez BIODIESEL PRODUCTION TECHNICIAN, BIODIESEL PRODUCTION TECHNICIAN-C Primary Care Provider Active Start: July 13, 2024 Dr. Efrain Hurtado MD Attending Provider Active Start: July 13, 2024 Team Status: Inactive Member Role/Relationship Status Dates Kelley Hernandez BIODIESEL PRODUCTION TECHNICIAN, BIODIESEL PRODUCTION TECHNICIAN-C Primary Care Provider Active Start: July 16, 2024 End: July 16, 2024 Dr. Yordy Renteria MD Attending Provider Active Start: July 16, 2024 End: July 16, 2024 Dr. Efrain Hurtado MD Referring Provider Active Start: July 16, 2024 End: July 16, 2024 Team Status: Inactive Member Role/Relationship Status Dates Dr. Bhavik Jameson MD Referring Provider Active Start: July 20, 2024 End: July 29, 2024 Nga Canela BIODIESEL PRODUCTION TECHNICIAN, BIODIESEL PRODUCTION TECHNICIAN-C Attending Provider Active Start: July 20, 2024 End: July 29, 2024 Kelley Hernandez BIODIESEL PRODUCTION TECHNICIAN, BIODIESEL PRODUCTION TECHNICIAN-C Primary Care Provider Active Start: July 20, 2024 End: July 29, 2024 Team Status: Active Member Role/Relationship Status Dates Dr. Bhavik Jameson MD Referring Provider Active Start: July 20, 2024 Nga Canela BIODIESEL PRODUCTION TECHNICIAN, BIODIESEL PRODUCTION TECHNICIAN-C Other Provider Active S tart: July 20, 2024 Kelley Hernandez BIODIESEL PRODUCTION TECHNICIAN, BIODIESEL PRODUCTION TECHNICIAN-C Primary Care Provider Active Start: July 20, 2024 Dr. Efrain Hurtado MD Attending Provider Active Start: July 20, 2024 Team Status: Inactive Member Role/Relationship Status Dates Dr. Bhavik Jameson MD Referring Provider Active Start: August 10, 2024 End: August 29, 2024 Kelley Hernandez BIODIESEL PRODUCTION TECHNICIAN, BIODIESEL PRODUCTION TECHNICIAN-C Primary Care Provider Active Start: August 10, 2024 End: August 29, 2024 Dr. Efrain Hurtado MD Attending Provider Active Start: August 10, 2024 End: August 29, 2024 Team Status: Active Member Role/Relationship Status Dates Kelley Hernandez BIODIESEL PRODUCTION TECHNICIAN, BIODIESEL PRODUCTION TECHNICIAN-C Primary Care Provider Active Start: August 10, 2024 Dr. Efrain Hurtado MD Attending Provider Active Start: August 10, 2024 Dr. Efrain Hurtado MD Referring Provider Active Start: August 10, 2024 Dr. Efrain Hurtado MD Other Provider Active Star t: August 10, 2024 Team Status: Active Member Role/Relationship Status Dates Dr. Bhavik Jameson MD Referring Provider Active Start: August 31, 2024 Kelley Hernandez BIODIESEL PRODUCTION TECHNICIAN, BIODIESEL PRODUCTION TECHNICIAN-C Primary Care Provider Active Start: August 31, 2024 Dr. Efrain Hurtado MD Attending Provider Active Start: August 31, 2024 Dr. Efrain Hurtado MD Other Provider Active Star t: August 31, 2024 Team Status: Inactive Member Role/Relationship Status Dates Dr. Bhavik Jameson MD Referring Provider Active Start: September 14, 2024 End: September 28, 2024 Kelley Hernandez BIODIESEL PRODUCTION TECHNICIAN, BIODIESEL PRODUCTION TECHNICIAN-C Primary Care Provider Active Start: September 14, 2024 End: September 28, 2024 Dr. Efrain Hurtado MD Attending Provider Active Start: September 14, 2024 End: September 28, 2024 Team Status: Active Member Role/Relationship Status Dates Dr. Bhavik Jameson MD Referring Provider Active Start: September 14, 2024 Kelley Hernandez BIODIESEL PRODUCTION TECHNICIAN, BIODIESEL PRODUCTION TECHNICIAN-C Primary Care Provider Active Start: September 14, 2024 Dr. Efrain Hurtado MD Attending Provider Active Start: September 14, 2024 Dr. Efrain Hurtado MD Other Provider Active Star t: September 14, 2024 Team Status: Active Member Role/Relationship Status Dates Dr. Bhavik Jameson MD Referring Provider Active Start: July 08, 2024 Nga Canela BIODIESEL PRODUCTION TECHNICIAN, BIODIESEL PRODUCTION TECHNICIAN-C Attending Provider Active Start: July 08, 2024 Nga Canela BIODIESEL PRODUCTION TECHNICIAN, BIODIESEL PRODUCTION TECHNICIAN-C Other Provider Active S tart: July 08, 2024 Kelley Hernandez BIODIESEL PRODUCTION TECHNICIAN, BIODIESEL PRODUCTION TECHNICIAN-C Primary Care Provider Active Start: July 08, 2024 Team Status: Active Member Role/Relationship Status Dates Dr. Bhavik Jameson MD Referring Provider Active Start: July 13, 2024 Nga Canela BIODIESEL PRODUCTION TECHNICIAN, BIODIESEL PRODUCTION TECHNICIAN-C Other Provider Active S tart: July 13, 2024 Kelley Hernandez BIODIESEL PRODUCTION TECHNICIAN, BIODIESEL PRODUCTION TECHNICIAN-C Primary Care Provider Active Start: July 13, 2024 Dr. Efrain Hurtado MD Attending Provider Active Start: July 13, 2024 Team Status: Inactive Member Role/Relationship Status Dates Kelley Hernandez BIODIESEL PRODUCTION TECHNICIAN, BIODIESEL PRODUCTION TECHNICIAN-C Primary Care Provider Active Start: July 16, 2024 End: July 16, 2024 Dr. Yordy Renteria MD Attending Provider Active Start: July 16, 2024 End: July 16, 2024 Dr. Efrain Hurtado MD Referring Provider Active Start: July 16, 2024 End: July 16, 2024 Team Status: Inactive Member Role/Relationship Status Dates Dr. Bhavik Jameson MD Referring Provider Active Start: July 20, 2024 End: July 29, 2024 Nga Canela BIODIESEL PRODUCTION TECHNICIAN, BIODIESEL PRODUCTION TECHNICIAN-C Attending Provider Active Start: July 20, 2024 End: July 29, 2024 Kelley Hernandez BIODIESEL PRODUCTION TECHNICIAN, BIODIESEL PRODUCTION TECHNICIAN-C Primary Care Provider Active Start: July 20, 2024 End: July 29, 2024 Team Status: Active Member Role/Relationship Status Dates Dr. Bhavik Jameson MD Referring Provider Active Start: July 20, 2024 Nga Hilton BIODIESEL PRODUCTION TECHNICIAN, BIODIESEL PRODUCTION TECHNICIAN-C Other Provider Active S tart: July 20, 2024 Kelley Hernandez BIODIESEL PRODUCTION TECHNICIAN, BIODIESEL PRODUCTION TECHNICIAN-C Primary Care Provider Active Start: July 20, 2024 Dr. Efrain Hurtado MD Attending Provider Active Start: July 20, 2024 Team Status: Inactive Member Role/Relationship Status Dates Dr. Bhavik Jameson MD Referring Provider Active Start: August 10, 2024 End: August 29, 2024 Kelley Hernandez BIODIESEL PRODUCTION TECHNICIAN, BIODIESEL PRODUCTION TECHNICIAN-C Primary Care Provider Active Start: August 10, 2024 End: August 29, 2024 Dr. Efrain Hurtado MD Attending Provider Active Start: August 10, 2024 End: August 29, 2024 Team Status: Active Member Role/Relationship Status Dates Kelley Hernandez BIODIESEL PRODUCTION TECHNICIAN, BIODIESEL PRODUCTION TECHNICIAN-C Primary Care Provider Active Start: August 10, 2024 Dr. Efrain Hurtado MD Attending Provider Active Start: August 10, 2024 Dr. Efrain Hurtado MD Referring Provider Active Start: August 10, 2024 Dr. Efrain Hurtado MD Other Provider Active Star t: August 10, 2024 Team Status: Active Member Role/Relationship Status Dates Kelley Hernandez BIODIESEL PRODUCTION TECHNICIAN, BIODIESEL PRODUCTION TECHNICIAN-C Primary Care Provider Active Start: August 31, 2024 Dr. Efrain Hurtado MD Attending Provider Active Start: August 31, 2024 Dr. Efrain Hurtado MD Referring Provider Active Start: August 31, 2024 Dr. Efrain Hurtado MD Other Provider Active Star t: August 31, 2024 Team Status: Inactive Member Role/Relationship Status Dates Dr. Bhavik Jameson MD Referring Provider Active Start: September 14, 2024 End: September 28, 2024 Kelley Hernandez BIODIESEL PRODUCTION TECHNICIAN, BIODIESEL PRODUCTION TECHNICIAN-C Primary Care Provider Active Start: September 14, 2024 End: September 28, 2024 Dr. Efrain Hurtado MD Attending Provider Active Start: September 14, 2024 End: September 28, 2024 Team Status: Active Member Role/Relationship Status Dates Kelley Hernandez BIODIESEL PRODUCTION TECHNICIAN, BIODIESEL PRODUCTION TECHNICIAN-C Primary Care Provider Active Start: September 14, 2024 Dr. Efrain Hurtado MD Attending Provider Active Start: September 14, 2024 Dr. Efrain Hurtado MD Referring Provider Active Start: September 14, 2024 Dr. Efrain Hurtado MD Other Provider Active Star t: September 14, 2024 Team Status: Inactive Member Role/Relationship Status Dates Dr. Bhavik Jameson MD Referring Provider Active Start: October 12, 2024 End: October 29, 2024 Kelley Hernandez BIODIESEL PRODUCTION TECHNICIAN, BIODIESEL PRODUCTION TECHNICIAN-C Primary Care Provider Active Start: October 12, 2024 End: October 29, 2024 Dr. Efrain Hurtado MD Attending Provider Active Start: October 12, 2024 End: October 29, 2024 Team Status: Active Member Role/Relationship Status Dates Dr. Bhavik Jameson MD Referring Provider Active Start: October 12, 2024 Kelley Hernandez BIODIESEL PRODUCTION TECHNICIAN, BIODIESEL PRODUCTION TECHNICIAN-C Primary Care Provider Active Start: October 12, 2024 Dr. Efrain Hurtado MD Attending Provider Active Start: October 12, 2024 Dr. Efrain Hurtado MD Other Provider Active Star t: October 12, 2024 Contact Lens Curve Grinder Relationship Specialty Start Date End Date Kelley Hernandez, UPHOLSTERY INSTRUCTOR [address] [facility] [place] [address] PCP - General Family Medicine 11/03/24 Contact Lens Curve Grinder Relationship Specialty Start Date End Date Kelley Hernandez, UPHOLSTERY INSTRUCTOR [address] [facility] [place] [address] PCP - General Family Medicine 11/03/24 Team Status: Inactive Member Role/Relationship Status Dates Dr. Bhavik Jameson MD Referring Provider Active Start: August 10, 2024 End: August 29, 2024 Kelley Hernandez BIODIESEL PRODUCTION TECHNICIAN, BIODIESEL PRODUCTION TECHNICIAN-C Primary Care Provider Active Start: August 10, 2024 End: August 29, 2024 Dr. Efrain Hurtado MD Attending Provider Active Start: August 10, 2024 End: August 29, 2024 Team Status: Active Member Role/Relationship Status Dates Kelley Hernandez BIODIESEL PRODUCTION TECHNICIAN, BIODIESEL PRODUCTION TECHNICIAN-C Primary Care Provider Active Start: August 10, 2024 Dr. Efrain Hurtado MD Attending Provider Active Start: August 10, 2024 Dr. Efrain Hurtado MD Referring Provider Active Start: August 10, 2024 Dr. Efrain Hurtado MD Other Provider Active Star t: August 10, 2024 Team Status: Active Member Role/Relationship Status Dates Kelley Hernandez BIODIESEL PRODUCTION TECHNICIAN, BIODIESEL PRODUCTION TECHNICIAN-C Primary Care Provider Active Start: August 31, 2024 Dr. Efrain Hurtado MD Attending Provider Active Start: August 31, 2024 Dr. Efrain Hurtado MD Referring Provider Active Start: August 31, 2024 Dr. Efrain Hurtado MD Other Provider Active Star t: August 31, 2024 Team Status: Inactive Member Role/Relationship Status Dates Dr. Bhavik Jameson MD Referring Provider Active Start: September 14, 2024 End: September 28, 2024 Kelley Hernandez BIODIESEL PRODUCTION TECHNICIAN, BIODIESEL PRODUCTION TECHNICIAN-C Primary Care Provider Active Start: September 14, 2024 End: September 28, 2024 Dr. Efrain Hurtado MD Attending Provider Active Start: September 14, 2024 End: September 28, 2024 Team Status: Active Member Role/Relationship Status Dates Kelley Hernandez BIODIESEL PRODUCTION TECHNICIAN, BIODIESEL PRODUCTION TECHNICIAN-C Primary Care Provider Active Start: September 14, 2024 Dr. Efrain Hurtado MD Attending Provider Active Start: September 14, 2024 Dr. Efrain Hurtado MD Referring Provider Active Start: September 14, 2024 Dr. Efrain Hurtado MD Other Provider Active Star t: September 14, 2024 Team Status: Inactive Member Role/Relationship Status Dates Dr. Bhavik Jameson MD Referring Provider Active Start: October 12, 2024 End: October 29, 2024 Kelley Hernandez BIODIESEL PRODUCTION TECHNICIAN, BIODIESEL PRODUCTION TECHNICIAN-C Primary Care Provider Active Start: October 12, 2024 End: October 29, 2024 Dr. Efrain Hurtado MD Attending Provider Active Start: October 12, 2024 End: October 29, 2024 Team Status: Active Member Role/Relationship Status Dates Kelley Hernandez BIODIESEL PRODUCTION TECHNICIAN, BIODIESEL PRODUCTION TECHNICIAN-C Primary Care Provider Active Start: October 12, 2024 Dr. Efrain Hurtado MD Attending Provider Active Start: October 12, 2024 Dr. Efrain Hurtado MD Referring Provider Active Start: October 12, 2024 Dr. Efrain Hurtado MD Other Provider Active Star t: October 12, 2024 Team Status: Inactive Member Role/Relationship Status Dates Dr. Bhavik Jameson MD Referring Provider Active Start: November 09, 2024 End: November 26, 2024 Kelley Hernandez BIODIESEL PRODUCTION TECHNICIAN, BIODIESEL PRODUCTION TECHNICIAN-C Primary Care Provider Active Start: October End: November 26, 2024 Dr. Efrain Hurtado MD Attending Provider Active Start: November 09, 2024 End: November 26, 2024 Team Status: Active Member Role/Relationship Status Dates Dr. Bhavik Jameson MD Referring Provider Active Start: November 09, 2024 Kelley Hernandez BIODIESEL PRODUCTION TECHNICIAN, BIODIESEL PRODUCTION TECHNICIAN-C Primary Care Provider Active Start: October Dr. Efrain Hurtado MD Attending Provider Active Start: November 09, 2024 Dr. Efrain Hurtado MD Other Provider Active Star t: November 09, 2024 Contact Lens Curve Grinder Relationship Specialty Start Date End Date Kelley Hernandez, UPHOLSTERY INSTRUCTOR [address] [place] [address] PCP - General Family Medicine 11/03/24 Goals (unrecognized section and content) Goals may be documented in a n alternate section (unrecognized sect ion and content) No Status Records FoundNo Status Records FoundNo Status Records FoundNo Status Records FoundNo Status Records FoundNo Status Records Found INFORMATION SOURCE (unrecogn ized section and content) DATE CREATED AUTHOR 06/02/2023 [facility] ([place]) DATE CREATED AUTHOR AUTHOR'S ORGANIZ ATION 04/18/2024 [facility] DATE CREATED AUTHOR AUTHOR'S ORGANIZ ATION 11/21/2024 [facility] DATE CREATED AUTHOR AUTHOR'S ORGANIZ ATION 11/28/2024 [facility] DATE CREATED AUTHOR AUTHOR'S ORGANIZ ATION 12/05/2024 [facility] DATE CREATED AUTHOR AUTHOR'S ORGANIZ ATION 12/14/[address] [facility] Source Comments (unrecognize d section and content) In the event this informatio n is protected by the Federal Confidentiality of Alcohol and Drug Abuse Patient Records regulations: The Federal rules restrict any use of the information to criminally investigate or prosecute any alcohol or drug abuse patient.[facility] the event this information is protected by the Federal Confidentiality of Alcohol and Drug Abuse Patient Records regulations: The Federal rules restrict any use of the information to criminally investigate or prosecute any alcohol or drug abuse patient.[facility] the event this information is protected by the Federal Confidentiality of Alcohol and Drug Abuse Patient Records regulations: The Federal rules restrict any use of the information to criminally investigate or prosecute any alcohol or drug abuse patient.[facility] the event this information is protected by the Federal Confidentiality of Alcohol and Drug Abuse Patient Records regulations: The Federal rules restrict any use of the information to criminally investigate or prosecute any alcohol or drug abuse patient.[facility] the event this information is protected by the Federal Confidentiality of Alcohol and Drug Abuse Patient Records regulations: The Federal rules restrict any use of the information to criminally investigate or prosecute any alcohol or drug abuse patient.[facility] the event this information is protected by the Federal Confidentiality of Alcohol and Drug Abuse Patient Records regulations: The Federal rules restrict any use of the information to criminally investigate or prosecute any alcohol or drug abuse patient.[facility] Reason for Visit (unrecogniz ed section and content) Reason Comments Imaging Upload Request Reason Comments Consult Reason Comments 12.01.24 Cure Open Complex AWR 4 h ours los 4 Reason Comments Preparations For Surgery FOR RECORDS PERTAINING TO PATIENTS WHO ARE OR HAVE BEEN ENROLLED IN A CHEMICAL DEPENDENCY/SUBSTANCEABUSE PROGRAM, SOME INFORMATION MAY BE OMITTED. This clinical summary was aggregated from multiple sources. Caution should be exercised in using it in the provision of clinical care. This summary normalizes information from multiple sources, and as a consequence, information in this document may materially change the coding, format and clinical context of patient data. In addition, data may be omitted in some cases. CLINICAL DECISIONS SHOULD BE BASED ON THE PRIMARY CLINICAL RECORDS. [facility]. provides no warranty or guarantee of the accuracy or completeness of information in this document.
[2024-12-20 18:05] LABS: Hematocrit 34.9 % (40-54); Hemoglobin 11.1 g/dL (13.0-16.5); Immature Granulocytes Count 0.040 X10^3/uL (0.0-0.0); Mean Corp Hgb Conc 31.8 g/dL (32-36); Mean Corpuscular Volume 89.7 fL (80-94); NRBC Flagged by Analyzer 0 % (0-5); POSITIVE COUNT YES; RBC Distribution Width CV 13.8 % (11.6-14.6); RBC Distribution Width SD 45.0 fl (35.1-43.9); Red Blood Count 3.89 M/mm3 (4.6-6.2); White Blood Count 8.1 K/mm3 (4.4-11.0)
--- NOTE | 2024-12-20 18:22 | EDS_ITS ---
HPI History of Present Illness Chief Complaint: Wound Check Informant: patient Narrative Narrative: Patient is a 74-year-old male with history of reconstructive abdominal surgery through [facility] with Dr. Rogers on 12/01. He states that since he was discharged she has had 2 holes underneath his umbilicus area that have been draining/oozing. Today with dressing change he noticed that the holes had significantly increased in size. States it has not been oozing as much. He also has a MADDY drain in place but states there has not been much output this week. He states overall he is actually feeling much better over the past 3 days. His previously also seen Dr. Hurtado for wound care. Denies any fever or chills. Denies any change in his bowel movements or urination. No other complaints or concerns at this time [facility] Medical History Vitamin D deficiency GERD (gastroesophageal reflux disease) Dysphagia, pharyngeal phase Perforation of intestine HLD (hyperlipidemia) Anxiety Depression Infection following a procedure, other surgical site, subsequent encounter Acute and chronic respiratory failure with hypoxia Diabetes HTN (hypertension) Home Medications ?Medication ?Instructions ?Recorded ?Last Taken ?Type amlodipine 5 mg tablet 5 mg PO QDAY 06/18/24 Unknow n History atorvastatin 20 mg tablet 20 mg PO QDAY 06/18/24 Unkno wn History losartan 100 mg tablet 100 mg PO QDAY 06/18/24 Unkn own History lactulose 10 gram/15 mL oral 10 ml PO BID PRN PRN cons tipation 12/20/24 Unknown History solution levothyroxine 25 mcg tablet 25 mcg PO DAILY 12/20/24 U nknown History methocarbamol 500 mg tablet 500 mg PO 4X/DAY 12/20/24 Unknown History metoprolol succinate 25 mg 25 mg PO DAILY 12/20/24 Unk nown History tablet,extended release 24 hr Allergy/AdvReac Type Severity Reaction Status Date / Time No Known Allergies Allergy Verified 12/20/24 16:46 Surgical History Gastrostomy status Tracheostomy status Social History Smoking Status: Never smoker alcohol intake: current alcohol intake frequency: a few times a month Alcohol type: beer and wine ROS ROS ED Constitutional Constitutional ED: Denies chills or fever(s) Gastrointestinal Gastrointestinal: Reports other Details: Mild postoperative abdominal pain ; Denies abdominal pain, constipation, nausea or vomiting Integumentary Reports other Details: Surgical incisions as well as draining wounds are enlarging in the abdomen Neurologic Neurologic: Denies paresthesias or weakness Hematologic/Lymphatic Hematologic/Lymphatic: Denies easy bleeding or easy bruising EXAM Physical Exam Const Vital Signs: 12/20/24 16:46 12/20/24 16:48 12/20/24 17:48 Temperature 98.2 F 98.2 F 98.0 F Temperature Source Oral Oral Temporal Pulse Rate 93 93 69 Respiratory Rate 22 H 22 H 16 Blood Pressure 151/86 H 151/86 H 174/77 H Blood Pressure Mean 107 107 109 Pulse Ox 95 95 94 Oxygen Delivery Method Room Air Room Air Room Air 12/20/24 18:00 12/20/24 19:00 12/20/24 19:36 Temperature 98.2 F 98.4 F 98.2 F Temperature Source Oral Oral Pulse Rate 72 72 72 Respiratory Rate 16 21 H 19 H Blood Pressure 178/81 H 192/84 H 184/82 H Blood Pressure Mean 113 120 116 Pulse Ox 95 94 95 Oxygen Delivery Method Room Air Room Air 12/20/24 20:00 Temperature 98.2 F Temperature Source Oral Pulse Rate 70 Respiratory Rate 20 H Blood Pressure 182/77 H Blood Pressure Mean 112 Pulse Ox 93 Oxygen Delivery Method Room Air Positive well nourished and well developed General Appearance ED: well developed and NAD HEENT Reports moist mucous membranes Chest Wall inspection of chest normal Resp normal respiratory effort and clear to auscultation bilaterally Cardio regular rate and regular rhythm GI non-tender and non-distended GI Narrative: Surgical incisions to the abdomen with sutures still in place. There are 2 ulcerated lesions towards the center of the lower abdomen approximately 3 cm in diameter that do seem to track down. On the left lung there is some granulation tissue. Both have foul-smelling and thick/yellow discharge and fluid pooling in them. No surrounding cellulitic changes. MADDY drain in place in the right lower quadrant. Auscultation: normoactive bowel sounds Palpation: soft; Negative for tender or guarding Extremity normal to inspection and full ROM Neuro oriented x3 Sensorium / Orientation: alert Motor Exam: Negative for general weakness Skin Skin Narrative: Ulcerated draining lesions and surgical incisions of the abdominal wall, see abdominal exam. MDM MDM MDM Narrative Medical decision making narrative: Patient is evaluated for enlarging wound on his abdomen. Had an extensive reconstructive abdominal wall surgery earlier this month at [facility] with Dr. Rogers. Besides of the wound and drainage is actually completely asympt omatic and states he has been feeling much better. The wound itself looks like there is an infection some sorts. It is malodorous and there is purulent drainage. There is no secondary cellulitic changes. CBC and BMP obtained which are largely normal. He is not a leukocytosis, his normal vital signs and is afebrile in the emergency room. Ludwin has had some mild shortness of breath since even before his surgery but states is not acutely changed and is not interested in having evaluated at this time. I did speak with his surgeon at [facility], Dr. Persaud. He accepts the patient back to [facility]. Started on Zosyn per his instructions. Bandage placed to try to keep the wounds dry. Wound cultures obtained. Patient given a plan of care. Patient otherwise remains h emodynamically stable in the emergency room Lab Data Attestation: I reviewed the patient's lab results. Labs: Laboratory Results - last 24 hr 12/20/24 17:09 WBC 8.1 RBC 3.89 L Hgb 11.1 L Hct 34.9 L MCV 89.7 MCH 28.5 MCHC 31.8 L RDW Std Deviation 45.0 H RDW Coeff of Hossein 13.8 Plt Count MPV Not Reportable Immature Gran % (Auto) 0.500 Neut % (Auto) 64.9 Lymph % (Auto) 21.2 Barber % (Auto) 9.2 Eos % (Auto) 3.5 Baso % (Auto) 0.7 Absolute Neuts (auto) 5.3 Absolute Lymphs (auto) 1.72 Nucleated RBC % 0 Differential Comment SCANNED Platelet Estimate ADEQUATE Sodium 136 Potassium 4.5 Chloride 103 Carbon Dioxide 17.0 L Anion Gap 16 H BUN 19 Creatinine 0.98 Estim Creat Clear Calc 83.44 Est GFR (MDRD) Non-Af 82 BUN/Creatinine Ratio 19.3 Glucose 191 H Calcium 8.8 Management Discussion w/another healthcare provider: [employer] Discharge Plan Triage Chief Complaint: Wound Check ED Provider: Uma Nieto Dx/Rx/DC Orders Clinical Impression: Open wound of abdominal wall, Postoperative wound infection, Diabetes mellitus with hyperglycemia Prescriptions: No Action amlodipine 5 mg tablet 5 mg PO QDAY atorvastatin 20 mg tablet 20 mg PO QDAY losartan 100 mg tablet 100 mg PO QDAY levothyroxine 25 mcg tablet 25 mcg PO DAILY lactulose 10 gram/15 mL solution 10 ml PO BID PRN PRN (Reason: constipation) methocarbamol 500 mg tablet 500 mg PO 4X/DAY metoprolol succinate 25 mg tablet extended release 24 hr 25 mg PO DAILY Primary Care Provider: Neri Hernandez NP Referrals: Neri Hernandez NP, RADIUS CORNER MACHINE OPERATOR-C [Primary Care Provider, Family Practice] Print Language: Uzbek Disposition Disposition: Acute Care Hospital Discharge Location: [facility] Discharge Date/Time: 12/20/24 20:45
[2024-12-20 18:25] LABS: Differential Indicated SCAN CRITERIA MET
[2024-12-20 18:27] LABS: Differential Comment SCANNED
[2024-12-20 18:32] LABS: Anion Gap 16 (5-15); BUN 19 mg/dL (4-19); BUN/Creat Ratio 19.3 RATIO (10-20); Calcium,Total 8.8 mg/dL (7.6-11.0); Carbon Dioxide 17.0 mmol/L (21.0-32.0); Chloride 103 mmol/L (98-108); Estimated Creatinine Clearance 83.44 ml/min (50-250); Glucose 191 mg/dL (70-99); Potassium 4.5 mmol/L (3.3-5.1)
[2024-12-20] MEDS: Piperacil/Tazobactam 4.5 GM in 0.9% Normal Saline (100mL MB+) 100 ML IV (19:28)
--- NOTE | 2024-12-20 20:43 | ED.RN ---
Attempted to call report to [facility]. The phone number [phone] rang 7 times, message then come on and said no one was available to take my call. Please try again later.
== END 2024-12-20 20:45 | disposition short-term general hospital (02) ==
LOC: ED 17:25
PROVIDERS: Emergency Provider Emergency Medicine; PCP Nurse Practitioner Family; Visit Provider Emergency Medicine
DX: T81.49XA Infection following a procedure, other surgical site, initial encounter (principal); Z93.0 Tracheostomy status; Z93.1 Gastrostomy status; E11.65 Type 2 diabetes mellitus with hyperglycemia; I10 Essential (primary) hypertension; S31.109D Unspecified open wound of abdominal wall, unspecified quadrant without penetration into peritoneal cavity, subsequent encounter; E78.5 Hyperlipidemia, unspecified; Z79.899 Other long term (current) drug therapy; Y82.8 Other medical devices associated with adverse incidents
CPT/HCPCS: 80048; 85025; 87070; 87077; 87186; 87205; 96365; 99283; A4216